=== PATIENT | male | born 1955 | race Caucasian/White ===

== ENCOUNTER 2016-03-31 19:24 | Emergency (ER) | payer OTHER ==
[~2016-03-31] VITALS: Ht 177.8 cm; Wt 120.0 kg
[~2016-03-31 19:24] MED LIST: ASPI1TAB69 PO; CALC500C6 CHEW; DIOV80TA4 PO; DIVA250ER PO; GABA100C4 PO; LEVO88TA2 PO; LIPI20TA PO; METF500 PO; PROT40TA PO; QUET1TAB8 PO; ZOLO50TA PO
[2016-03-31 19:25] VITALS: BP 122/81; PULSE 102; RESP 15; TEMP 98.3; O2SAT 96
--- NOTE | 2016-03-31 19:43 | PD ---
HPI . Suicidal ideation Chief Complaint: Suicide Ideation/Attempt Time Seen by Provider: 19:33 Travel History International Travel<30 days: Yes Contact w/Intl Traveler<30days: Yes Name of Country Traveled to: [facility] Traveled to known affect area: No History of Present Illness HPI Patient presents with suicidal ideation. He has no plan. He states that he has felt this way for the last 5 days. He states that he isn't drunk. He has been here several times in the past because of suicidal ideation and alcohol abuse. He states that he lives alone. He states that he presented to us by uber. [facility] Past Medical History Blood Disorders: No Anxiety: Yes Depression: Yes Heart Rhythm Problems: No Cancer: No Cardiovascular Problems: Yes High Cholesterol: No Chest Pain: No Congestive Heart Failure: No COPD: Yes Cerebrovascular Accident: Yes (2008) Diabetes: Yes (METFORMIN) Diminished Hearing: No Endocrine: No Gastrointestinal Disorders: Yes GERD: Yes Genitourinary: No Headaches: Yes Hepatitis: No Hiatal Hernia: No Hypertension: Yes Immune Disorder: No Implanted Vascular Access Dvce: Yes Insomnia: Yes Musculoskeletal: No Neurologic: Yes Psychiatric: Yes (pt has chronic alcohol abuse, depression, and anxiety) Reproductive: No Respiratory: Yes Migraines: No Myocardial Infarction: No Seizures: Yes Sleep Apnea: Yes (CPAP) Thyroid Disease: Yes Ulcer: No Past Surgical History Abdominal Surgery: Yes (INGUINAL HERNIA REPAIR) AICD: No Appendectomy: No Arteriovenous Shunt: No Cholecystectomy: No Insulin Pump: No Joint Replacement: No Oral Surgery: Yes (toncilectomy) Pacemaker: No Tonsillectomy: Yes Other Surgery: Yes (SINUS) Social History Alcohol Use: Yes (CURRENTLY INTOXICATED/drinking daily recently) Tobacco Use: No Substance Use: Yes (chronic alcohol abuse) Allergies-Medications (Allergen,Severity, Reaction): Coded Allergies: Erythromycin (Verified Allergy, Severe, Hives, 03/31/16) Penicillin (Verified Allergy, Severe, Hives, 03/31/16) Reported Meds & Prescriptions Reported Meds & Active Scripts Active Reported Aspirin 81 Mg Tabdr 81 Mg PO DAILY Zoloft (Sertraline HCl) 50 Mg Tab 50 Mg PO DAILY Protonix (Pantoprazole Sodium) 40 Mg Tab 40 Mg PO DAILY Lipitor (Atorvastatin Calcium) 20 Mg Tab 20 Mg PO HS Levothyroxine (Levothyroxine Sodium) 88 Mcg Tab 88 Mcg PO DAILY Glucophage (Metformin HCl) 500 Mg Tab 500 Mg PO BIDPC With meals Quetiapine (Quetiapine Fumarate) 100 Mg Tab 100 Mg PO HS Diovan (Valsartan) 80 Mg Tab 80 Mg PO BID Review of Systems Except as stated in HPI: all other systems reviewed are Neg Psychiatric: Positive: Suicidal Ideations (with no plan), Mood Disorder, Substance Abuse Physical Exam Narrative GENERAL: Very flat affect. SKIN: Warm and dry. HEAD: Atraumatic. Normocephalic. EYES: Pupils equal and round. Sclerae are anicteric. ENT: No nasal bleeding or discharge. Mucous membranes pink and moist. NECK: Trachea midline. Neck is supple. CARDIOVASCULAR: Regular rate and rhythm. RESPIRATORY: No accessory muscle use. GASTROINTESTINAL: Abdomen soft, non-tender, nondistended. MUSCULOSKELETAL: No obvious deformities. No edema. NEUROLOGICAL: Awake and alert. No obvious cranial nerve deficits. Motor grossly within normal limits. Normal speech. PSYCHIATRIC: Appropriate mood and affect; insight and judgment normal. Data Data Last Documented VS Vital Signs Date Time Temp Pulse Resp B/P Pulse Ox O2 Delivery O2 Flow Rate FiO2 03/31/16 19:25 98.3 102 15 122/81 96 Room Air Orders Complete Blood Count With Diff (03/31/16 19:34) Basic Metabolic Panel (Bmp) (03/31/16 19:34) Drug Screen, Random Urine (03/31/16 19:34) Alcohol (Ethanol) (03/31/16 19:34) Psych Screen (03/31/16 19:34) Ondansetron Odt (Zofran Odt) (03/31/16 20:30) Labs Laboratory Tests Test 03/31/16 03/31/16 20:20 20:45 White Blood Count 6.0 TH/MM3 Red Blood Count 3.75 MIL/MM3 Hemoglobin 11.8 GM/DL Hematocrit 34.0 % Mean Corpuscular Volume 90.5 FL Mean Corpuscular Hemoglobin 31.4 PG Mean Corpuscular Hemoglobin 34.8 % Concent Red Cell Distribution Width 17.4 % Platelet Count 342 TH/MM3 Mean Platelet Volume 7.5 FL Neutrophils (%) (Auto) 58.4 % Lymphocytes (%) (Auto) 30.0 % Monocytes (%) (Auto) 7.4 % Eosinophils (%) (Auto) 3.2 % Basophils (%) (Auto) 1.0 % Neutrophils # (Auto) 3.5 TH/MM3 Lymphocytes # (Auto) 1.8 TH/MM3 Monocytes # (Auto) 0.4 TH/MM3 Eosinophils # (Auto) 0.2 TH/MM3 Basophils # (Auto) 0.1 TH/MM3 CBC Comment DIFF FINAL Differential Comment Sodium Level 141 MEQ/L Potassium Level 3.5 MEQ/L Chloride Level 99 MEQ/L Carbon Dioxide Level 32.7 MEQ/L Anion Gap 9 MEQ/L Blood Urea Nitrogen 6 MG/DL Creatinine 1.19 MG/DL Estimat Glomerular Filtration 63 ML/MIN Rate Random Glucose 103 MG/DL Calcium Level 9.2 MG/DL Ethyl Alcohol Level 259 MG/DL Urine Opiates Screen NEG Urine Barbiturates Screen NEG Urine Amphetamines Screen NEG Urine Benzodiazepines Screen NEG Urine Cocaine Screen NEG Urine Cannabinoids Screen NEG MDM Medical Decision Making Medical Screen Exam Complete: Yes Emergency Medical Condition: Yes Differential Diagnosis Differential diagnosis includes but is not limited to depression with suicidal gesture, suicide attempt, suicidal ideation, attention seeking behavior. Narrative Course Patient presents via uber with his bags packed in the chief complaint of suicidal ideation. He has no plan. I have initiated a medical clearance exam. H&H is 11.8/34.0. WBC is 6.0. Chemistries are unremarkable. Drug screen is neg. EtOH is 259. Diagnosis Primary Impression: Suicidal ideations Additional Impression: Acute alcohol intoxication Qualified Code: F10.120 - Acute alcohol intoxication, uncomplicated Condition: Stable Sierra Bush MD Mar 31, 2016 19:43
[2016-03-31] MEDS ORDERED: ONDANSETRON ODT 4 MG TAB PO ONE (20:30)
[2016-03-31 20:48] LABS: AUTOMATED NEUTROPHIL # 3.5 TH/MM3 (1.8-7.7); BASOPHIL # 0.1 TH/MM3 (0-0.2); EOSINOPHIL # 0.2 TH/MM3 (0-0.4); EOSINOPHIL % 3.2 % (0.0-4.0); HEMO FLAGS DIFF FINAL; LYMPHOCYTE # 1.8 TH/MM3 (1.0-4.8); MEAN CELL VOLUME 90.5 FL (80.0-100.0); MEAN CORPUSCULAR HEMOGLOBIN 31.4 PG (27.0-34.0); MEAN CORPUSCULAR HGB CONC 34.8 % (32.0-36.0); MONO % 7.4 % (0.0-8.0); NEUT % 58.4 % (16.0-70.0); PLATELET COUNT 342 TH/MM3 (150-450); RED BLOOD COUNT 3.75 MIL/MM3 (4.50-5.90); RED CELL DISTRIBUTION WIDTH 17.4 % (11.6-17.2)
[2016-03-31 21:15] LABS: BICARBONATE 32.7 MEQ/L (21.0-32.0); POTASSIUM 3.5 MEQ/L (3.5-5.1)
[2016-03-31 21:18] LABS: AMPHETAMINE, URINE NEG (NEG); BARBITURATES, URINE NEG (NEG); COCAINE, URINE NEG (NEG)
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
== END 2016-03-31 23:50 | disposition home or self-care (01) ==
LOC: NEPA 19:24 → NEPJ 23:50
DX: R45.851 Suicidal ideations (principal); F10.120 Alcohol abuse with intoxication, uncomplicated; E11.9 Type 2 diabetes mellitus without complications; I10 Essential (primary) hypertension; E07.9 Disorder of thyroid, unspecified; G47.30 Sleep apnea, unspecified; Z79.84 Long term (current) use of oral hypoglycemic drugs; Z86.59 Personal history of other mental and behavioral disorders; Z86.79 Personal history of other diseases of the circulatory system; Z87.09 Personal history of other diseases of the respiratory system; Z86.73 Personal history of transient ischemic attack (TIA), and cerebral infarction without residual deficits; Z87.19 Personal history of other diseases of the digestive system; Z86.69 Personal history of other diseases of the nervous system and sense organs
CPT/HCPCS: 80048; 80307; 80320; 85025; 99284

== ENCOUNTER 2016-05-31 12:28 | Observation (INO) | payer OTHER ==
[~2016-05-31] VITALS: Ht 177.8 cm; Wt 115.0 kg
[2016-05-31] VITALS (11 sets, daily range): BP systolic 141–194; BP diastolic 96–126; PULSE 110–138; RESP 15–18; TEMP 98; O2SAT 93–99
[~2016-05-31 12:28] MED LIST changes: -CALC500C6 CHEW; -DIVA250ER PO; -GABA100C4 PO
[2016-05-31] MEDS ORDERED: SODIUM CHLOR 0.9% 1000 ML INJ 1,000 ML IV ONE ×3 (12:45→15:45)
[2016-05-31] MEDS ORDERED: ONDANSETRON HCL 4 MG/2 ML VIAL IV PUSH ONE (12:45)
[2016-05-31 13:09] LABS: BASOPHIL % 0.4 % (0.0-2.0); HEMATOCRIT 44.7 % (39.0-51.0); HEMO FLAGS DIFF FINAL; LYMPH % 15.3 % (9.0-44.0); LYMPHOCYTE # 1.6 TH/MM3 (1.0-4.8); MEAN CELL VOLUME 92.1 FL (80.0-100.0); MEAN CORPUSCULAR HEMOGLOBIN 31.3 PG (27.0-34.0); MEAN CORPUSCULAR HGB CONC 33.9 % (32.0-36.0); MONO % 6.6 % (0.0-8.0); NEUT % 77.7 % (16.0-70.0); PLATELET COUNT 259 TH/MM3 (150-450); RED BLOOD COUNT 4.86 MIL/MM3 (4.50-5.90); RED CELL DISTRIBUTION WIDTH 14.6 % (11.6-17.2); WHITE BLOOD COUNT 10.4 TH/MM3 (4.0-11.0)
[2016-05-31 13:52] LABS: BICARBONATE 32.1 MEQ/L (21.0-32.0); CALCIUM-PROTEIN CORRECTED 10.8 MG/DL (8.5-10.1); POTASSIUM 3.6 MEQ/L (3.5-5.1); TOTAL BILIRUBIN ADULT 0.9 MG/DL (0.2-1.0)
[2016-05-31] MEDS ORDERED: SERT25TA83 PO (14:16)
[2016-05-31] MEDS ORDERED: LORazepam 2 MG/ML VIAL IV PUSH ONE (14:45)
[2016-05-31] MEDS ORDERED: PANTOPRAZOLE SODIUM 40 MG VIAL IV PUSH ONE (15:00)
--- NOTE | 2016-05-31 15:00 | PD ---
HPI Chief Complaint: Medical Clearance Time Seen by Provider: 12:35 Travel History International Travel<30 days: No Contact w/Intl Traveler<30days: No Traveled to known affect area: No History of Present Illness HPI 60-year-old male called 911 for nausea and vomiting. He has been very depressed and drinking a lot of alcohol over the past 1 week. Patient said he finished one gallon of vodka. Normally does not drink. For 2 days he has been vomiting and unable to hold anything down. When he came in he was tremulous and diaphoretic. Heart rate was in 130s. The vomitus mostly looks clear. Patient is awake and answering questions appropriately. He says he has been very depressed and that's why his started to drink. No suicidal ideations per se. Patient was not a Barron act. [facility] Past Medical History Narrative Medical List of his past medical, surgical, social and family history was reviewed from the nursing note. Blood Disorders: No Anxiety: Yes Depression: Yes Heart Rhythm Problems: No Cancer: No Cardiovascular Problems: Yes (HTN) High Cholesterol: No Chest Pain: No Congestive Heart Failure: No COPD: Yes Cerebrovascular Accident: Yes (2008) Diabetes: Yes Patient Takes Glucophage: Yes Diminished Hearing: No Endocrine: No Gastrointestinal Disorders: Yes GERD: Yes Genitourinary: No Headaches: Yes Hepatitis: No Hiatal Hernia: No Hypertension: Yes Immune Disorder: No Implanted Vascular Access Dvce: Yes Insomnia: Yes Musculoskeletal: No Neurologic: Yes Psychiatric: Yes (pt has chronic alcohol abuse, depression, and anxiety) Reproductive: No Respiratory: Yes Migraines: No Myocardial Infarction: No Seizures: Yes Sleep Apnea: Yes (CPAP) Thyroid Disease: Yes Ulcer: No Past Surgical History Abdominal Surgery: Yes (INGUINAL HERNIA REPAIR) AICD: No Appendectomy: No Arteriovenous Shunt: No Cholecystectomy: No Insulin Pump: No Joint Replacement: No Oral Surgery: Yes (toncilectomy) Pacemaker: No Tonsillectomy: Yes Other Surgery: Yes (SINUS) Social History Alcohol Use: Yes (drank today) Tobacco Use: No Substance Use: Yes (chronic alcohol abuse) Allergies-Medications (Allergen,Severity, Reaction): Coded Allergies: Erythromycin (Verified Allergy, Severe, Hives, 03/31/16) Penicillin (Verified Allergy, Severe, Hives, 03/31/16) Comments List of his allergies reviewed from the nursing note. Reported Meds & Prescriptions Reported Meds & Active Scripts Active Reported Sertraline (Sertraline HCl) 25 Mg Tab 25 Mg PO DAILY Aspirin 81 Mg Tabdr 81 Mg PO DAILY Protonix (Pantoprazole Sodium) 40 Mg Tab 40 Mg PO DAILY Lipitor (Atorvastatin Calcium) 20 Mg Tab 20 Mg PO HS Levothyroxine (Levothyroxine Sodium) 88 Mcg Tab 88 Mcg PO DAILY Glucophage (Metformin HCl) 500 Mg Tab 500 Mg PO BIDPC With meals Quetiapine (Quetiapine Fumarate) 100 Mg Tab 100 Mg PO HS Diovan (Valsartan) 80 Mg Tab 80 Mg PO BID Narrative Medication List of his home medications reviewed from the nursing note. Review of Systems Except as stated in HPI: all other systems reviewed are Neg Physical Exam Narrative GENERAL: Awake, alert, moderate distress SKIN: Warm and diaphoretic HEAD: Atraumatic. Normocephalic. EYES: Pupils equal and round. No scleral icterus. No injection or drainage. ENT: No nasal bleeding or discharge. Mucous membranes pink and moist. NECK: Trachea midline. No JVD. CARDIOVASCULAR: Regular rate and rhythm. Tachycardia. No murmur appreciated. RESPIRATORY: No accessory muscle use. Clear to auscultation. Breath sounds equal bilaterally. GASTROINTESTINAL: Abdomen soft, non-tender, nondistended. Hepatic and splenic margins not palpable. MUSCULOSKELETAL: No obvious deformities. No clubbing. No cyanosis. No edema. NEUROLOGICAL: Awake and alert. No obvious cranial nerve deficits. Motor grossly within normal limits. Normal speech. PSYCHIATRIC: Appropriate mood and affect; insight and judgment normal. Data Data Last Documented VS Vital Signs Date Time Temp Pulse Resp B/P Pulse Ox O2 Delivery O2 Flow Rate FiO2 05/31/16 12:49 194/99 05/31/16 12:40 133 17 05/31/16 12:37 98.0 93 Orders Complete Blood Count With Diff (05/31/16 12:37) Comprehensive Metabolic Panel (05/31/16 12:37) Psych Screen (05/31/16 12:37) Drug Screen, Random Urine (05/31/16 12:37) Alcohol (Ethanol) (05/31/16 12:37) Ondansetron Inj (Zofran Inj) (05/31/16 12:45) Sodium Chlor 0.9% 1000 Ml Inj (Ns 1000 M (05/31/16 12:45) Special Education Instructor / Telemetry [email or web address] (05/31/16 12:37) Lorazepam Inj (Ativan Inj) (05/31/16 14:45) Sodium Chlor 0.9% 1000 Ml Inj (Ns 1000 M (05/31/16 14:45) Electrocardiogram (05/31/16 ) Pantoprazole Inj (Protonix Inj) (05/31/16 15:00) Admit Order (Ed Use Only) (05/31/16 15:05) Labs Laboratory Tests Test 05/31/16 12:55 White Blood Count 10.4 TH/MM3 Red Blood Count 4.86 MIL/MM3 Hemoglobin 15.2 GM/DL Hematocrit 44.7 % Mean Corpuscular Volume 92.1 FL Mean Corpuscular Hemoglobin 31.3 PG Mean Corpuscular Hemoglobin 33.9 % Concent Red Cell Distribution Width 14.6 % Platelet Count 259 TH/MM3 Mean Platelet Volume 7.7 FL Neutrophils (%) (Auto) 77.7 % Lymphocytes (%) (Auto) 15.3 % Monocytes (%) (Auto) 6.6 % Eosinophils (%) (Auto) 0.0 % Basophils (%) (Auto) 0.4 % Neutrophils # (Auto) 8.0 TH/MM3 Lymphocytes # (Auto) 1.6 TH/MM3 Monocytes # (Auto) 0.7 TH/MM3 Eosinophils # (Auto) 0.0 TH/MM3 Basophils # (Auto) 0.0 TH/MM3 CBC Comment DIFF FINAL Differential Comment Sodium Level 139 MEQ/L Potassium Level 3.6 MEQ/L Chloride Level 91 MEQ/L Carbon Dioxide Level 32.1 MEQ/L Anion Gap 16 MEQ/L Blood Urea Nitrogen 17 MG/DL Creatinine 1.24 MG/DL Estimat Glomerular Filtration 60 ML/MIN Rate Random Glucose 188 MG/DL Calcium Level 12.0 MG/DL Protein Corrected Calcium 10.8 MG/DL Total Bilirubin 0.9 MG/DL Aspartate Amino Transf 188 U/L (AST/SGOT) Alanine Aminotransferase 74 U/L (ALT/SGPT) Alkaline Phosphatase 122 U/L Total Protein 9.0 GM/DL Albumin 4.5 GM/DL Ethyl Alcohol Level 197 MG/DL [facility] Medical Decision Making Medical Screen Exam Complete: Yes Emergency Medical Condition: Yes Medical Record Reviewed: Yes Interpretation(s) Twelve-lead EKG was reviewed by me. Normal sinus rhythm, normal axis, tachycardia, PVC, poor R-wave progression. Heart rate of 138 bpm. Differential Diagnosis Alcohol withdrawal, alcoholic ketoacidosis, alcohol intoxication, dehydration Narrative Course 2:57 PM blood test results of back and patient has high calcium. AST is slightly elevated. Blood alcohol level was close to 200. I have given him a liter of IV fluid bolus and IV Zofran. Patient continues to be nauseous. I've given him 1 mg of IV Ativan and I have decided to admit him. I ordered a second liter of fluid bolus. Awaiting for the hospitalist to call back. I will give him IV Protonix as well. Procedures EKG Prior to Arrival: No Diagnosis Primary Impression: Alcoholic gastritis Qualified Code: K29.20 - Acute alcoholic gastritis without hemorrhage Additional Impressions: Alcohol withdrawal Qualified Code: F10.239 - Alcohol withdrawal, with unspecified complication Intractable vomiting Qualified Code: R11.10 - Intractable vomiting, presence of nausea not specified, unspecified vomiting type Admitting Information Admitting Physician Requests: it Joseph Mallory MD May 31, 2016 15:00
[2016-05-31] MEDS ORDERED: MAGNESIUM HYDROXIDE SUSP 30 ML CUP PO PRN (15:30)
[2016-05-31] MEDS ORDERED: SODIUM CHLORIDE 0.9% FLUSH 10 ML FLUSH IV FLUSH PRN (15:30)
[2016-05-31] MEDS ORDERED: ACETAMINOPHEN 325 MG TAB PO PRN (15:30)
[2016-05-31] MEDS ORDERED: NALOXONE HCL 0.4 MG/ML AMP IV PRN (15:30)
[2016-05-31] MEDS ORDERED: ONDANSETRON HCL 4 MG/2 ML VIAL IVP PRN (15:30)
[2016-05-31] MEDS ORDERED: PILL SPLITTER OTHER PRN (15:45)
[2016-05-31] MEDS: INSULIN ASPART SUPPLEMENTAL SCALE SQ SCH ×2 (16:00→21:30)
[2016-05-31] MEDS: LORazepam 2 MG/ML VIAL IV PUSH PRN ×2 (16:20→20:23)
[2016-05-31 16:28] LABS: AMPHETAMINE, URINE NEG (NEG); BARBITURATES, URINE NEG (NEG); COCAINE, URINE NEG (NEG)
--- NOTE | 2016-05-31 16:50 | HHI.HP ---
HPI Service [facility] Hospitalists Primary Care Physician Dr. Quinten Becker Admission Diagnosis alcohol withdrawal, alcoholic gastritis, intractable vomiting Chief Complaint: Intractable vomiting Travel History International Travel<30 Days: No Contact w/Intl Traveler <30 Da: No Traveled to Known Affected Are: No History of Present Illness Mr. Canseco is a 60 y/o WM with HTN, diabetes mellitus, SANG on CPAP and alcohol abuse. He has been very depressed and has been binge drinking for the past 1 week and stopped two days ago. Pt presented to the ED with intractable nausea/vomiting and unable to hold any food or fluids down for the last 2 days. Pt appeared to be in withdrawals in the ED and has been tremulous and diaphoretic, heart rate was in 130s and hypertensive. The patient is alert and answering questions appropriately. He does have noted electrolyte abnormalities at admission and some elevation in his LFTs consistent with alcoholic hepatitis. Pt says he has been very depressed and that's why his started to drink. No suicidal ideations. His blood alcohol level was close to 200. He was given a bolus if IV fluids and IV Zofran in the ED but continued to be nauseated. Denies any abd pain, chest pain, hematemesis, coffee-ground emesis , melena, BRBPR, SOB or palpitations. Review of Systems Constitutional: DENIES: Fever, Chills Eyes: DENIES: Vision loss Ears, nose, mouth, throat: DENIES: Hearing loss Respiratory: DENIES: Cough, Shortness of breath Cardiovascular: DENIES: Chest pain, Lower Extremity Edema Gastrointestinal: COMPLAINS OF: GERD, Nausea, Vomiting, DENIES: Black stools, Bloody stools Genitourinary: DENIES: Dysuria Musculoskeletal: DENIES: Back pain Integumentary: DENIES: Rash Neurologic: DENIES: Headache Psychiatric: DENIES: Confusion, Suicidal Ideation Past Family Social History Past Medical History ADHD Alcohol dependence Antiphospholipid antibody syndrome Diabetes mellitus Hx of CVA in 2009 Anxiety/Depression GERD HTN Hyperlipidemia SANG on CPAP Past Surgical History Hernia repair Tonsillectomy/Adenoidectomy Reported Medications Sertraline (Sertraline HCl) 25 Mg Tab 25 Mg PO DAILY Aspirin 81 Mg Tabdr 81 Mg PO DAILY Protonix (Pantoprazole Sodium) 40 Mg Tab 40 Mg PO DAILY Lipitor (Atorvastatin Calcium) 20 Mg Tab 20 Mg PO HS Levothyroxine (Levothyroxine Sodium) 88 Mcg Tab 88 Mcg PO DAILY Glucophage (Metformin HCl) 500 Mg Tab 500 Mg PO BIDPC With meals Quetiapine (Quetiapine Fumarate) 100 Mg Tab 100 Mg PO HS Diovan (Valsartan) 80 Mg Tab 80 Mg PO BID Allergies: Coded Allergies: Erythromycin (Verified Allergy, Severe, Hives, 03/31/16) Penicillin (Verified Allergy, Severe, Hives, 03/31/16) Family History Mother - Hx of RCC Father - Hx of Parkinson's Brother and sister with hx of psychiatric disorders Social History (+)Alcohol abuse, binge drinker Hx of tobacco use, quit over 10 years ago, smoked 1ppd x 25 years Physical Exam Vital Signs Vital Signs Date Time Temp Pulse Resp B/P Pulse Ox O2 Delivery O2 Flow Rate FiO2 05/31/16 16:19 95 Nasal Cannula 3.00 05/31/16 12:49 194/99 05/31/16 12:40 133 17 05/31/16 12:37 98.0 131 15 185/112 93 Physical Exam GENERAL: This is a well-nourished, well-developed patient, in no apparent distress. HEENT: Atraumatic. Normocephalic. No temporal or scalp tenderness. No scleral icterus. Airway patent. NECK: Trachea midline, supple, nontender. CARDIO: Regular. RESP: CTA bilaterally. No wheezes, rales, or rhonchi. ABD: +BS, soft, non-tender, nondistended. EXT: Extremities without clubbing, cyanosis, or edema. NEURO: Awake and alert. Motor and sensory grossly within normal limits. Normal speech. Laboratory Laboratory Tests Test 05/31/16 12:55 White Blood Count 10.4 Red Blood Count 4.86 Hemoglobin 15.2 Hematocrit 44.7 Mean Corpuscular Volume 92.1 Mean Corpuscular Hemoglobin 31.3 Mean Corpuscular Hemoglobin 33.9 Concent Red Cell Distribution Width 14.6 Platelet Count 259 Mean Platelet Volume 7.7 Neutrophils (%) (Auto) 77.7 Lymphocytes (%) (Auto) 15.3 Monocytes (%) (Auto) 6.6 Eosinophils (%) (Auto) 0.0 Basophils (%) (Auto) 0.4 Neutrophils # (Auto) 8.0 Lymphocytes # (Auto) 1.6 Monocytes # (Auto) 0.7 Eosinophils # (Auto) 0.0 Basophils # (Auto) 0.0 CBC Comment DIFF FINAL Differential Comment Sodium Level 139 Potassium Level 3.6 Chloride Level 91 Carbon Dioxide Level 32.1 Anion Gap 16 Blood Urea Nitrogen 17 Creatinine 1.24 Estimat Glomerular Filtration 60 Rate Random Glucose 188 Calcium Level 12.0 Protein Corrected Calcium 10.8 Total Bilirubin 0.9 Aspartate Amino Transf 188 (AST/SGOT) Alanine Aminotransferase 74 (ALT/SGPT) Alkaline Phosphatase 122 Total Protein 9.0 Albumin 4.5 Ethyl Alcohol Level 197 Result Diagram: 05/31/16 1255 05/31/16 1255 Septic Shock Reassessment Heart: Other Lungs: Clear Skin: Warm Assessment and Plan Problem List: (1) Intractable vomiting Status: Acute Plan: - Pt admitted with intractable nausea/vomiting, likely related to alcohol abuse and withdrawal. - He is notably tachycardic and hypertensive in the ED likely because he is dehydrated and hasn't been taking his medications. - The pt is a binge drinker and has been drinking heavily for the last week as he has been more depressed. - Pt has been given IVF bolus in the ED and we will continue hydrating him with IVF - Zofran PRN - Protonix 40mg BID - Thiamine/Folic Acid/MVI - DT precautions - Ativan PRN - Librium 25mg TID - Monitor electrolytes closely and replace as necessary - Alcohol cessation - Supportive care - DVT prophylaxis with SCDs (2) Acute alcohol intoxication Status: Acute Plan: - See above. (3) Alcohol abuse Status: Chronic Plan: - See above. - Consult Psychiatry (4) HTN (hypertension) Status: Chronic Plan: - Resume home meds - Clonidine PRN - Monitor (5) Depression Status: Chronic (6) Diabetes Status: Chronic Plan: - NovoLog SSI - Accu checks Assessment and Plan Patient examined. Assessment and plan formulated with Megan Carr PA-C. Lizabeth agree with the above. Physician Certification 2 Midnight Certification Type: Admission for Inpatient Services Order for Inpatient Services The services are ordered in accordance with Medicare regulations or non- Medicare payer requirements, as applicable. In the case of services not specified as inpatient-only, they are appropriately provided as inpatient services in accordance with the 2-midnight benchmark. Estimated LOS (days): 3 3 days is the estimated time the patient will need to remain in the hospital, assuming treatment plan goals are met and no additional complications. Post-Hospital Plan: Not yet determined Problem Qualifiers (1) Intractable vomiting: Qualified Code: R11.10 - Intractable vomiting, presence of nausea not specified , unspecified vomiting type (2) Acute alcohol intoxication: Qualified Code: F10.120 - Acute alcohol intoxication, uncomplicated Megan Carr May 31, 2016 16:50 Stephane Crandall DO Jun 01, 2016 22:48
[2016-05-31] MEDS ORDERED: cloNIDine HCL 0.1 MG TAB PO PRN (17:00)
[2016-05-31] MEDS ORDERED: ENALAPRILAT 1.25 MG/ML VIAL IV PUSH PRN (17:30)
[2016-05-31] MEDS: chlordiazePOXIDE 25 MG CAP PO SCH (18:00)
[2016-05-31] MEDS ORDERED: METOPROLOL TARTRATE 5 MG/5 ML VIAL IV PUSH PRN (19:00)
[2016-05-31] MEDS: metFORMIN HCL 500 MG TAB PO SCH (19:18)
[2016-05-31] MEDS: 1/2 NS + KCL 20 MEQ INJ 1,000 ML IV SCH (19:19)
[2016-05-31] MEDS: SODIUM CHLORIDE 0.9% FLUSH 10 ML FLUSH IV FLUSH SCH (21:00)
[2016-05-31] MEDS: DOCUSATE SODIUM 100 MG CAP PO SCH (21:23)
[2016-05-31] MEDS: QUEtiapine FUMARATE 100 MG TAB PO SCH (21:24)
[2016-05-31] MEDS: ATORVASTATIN 20 MG TAB PO SCH (21:24)
[2016-05-31] MEDS: VALSARTAN 80 MG TAB PO SCH (21:24)
[2016-06-01] VITALS (15 sets, daily range): BP systolic 135–160; BP diastolic 76–98; PULSE 86–124; RESP 18–20; TEMP 98.1; O2SAT 93–98
[2016-06-01] MEDS: 1/2 NS + KCL 20 MEQ INJ 1,000 ML IV SCH (04:45)
[2016-06-01] MEDS: LORazepam 2 MG/ML VIAL IV PUSH PRN ×3 (06:02→22:46)
[2016-06-01] MEDS: INSULIN ASPART SUPPLEMENTAL SCALE SQ SCH ×4 (07:00→21:00)
[2016-06-01 07:10] LABS: AUTOMATED NEUTROPHIL # 7.1 TH/MM3 (1.8-7.7); BASOPHIL # 0.1 TH/MM3 (0-0.2); BASOPHIL % 0.6 % (0.0-2.0); EOSINOPHIL # 0.1 TH/MM3 (0-0.4); EOSINOPHIL % 0.7 % (0.0-4.0); HEMATOCRIT 41.5 % (39.0-51.0); HEMO FLAGS DIFF FINAL; LYMPHOCYTE # 1.3 TH/MM3 (1.0-4.8); MEAN CELL VOLUME 92.9 FL (80.0-100.0); MEAN CORPUSCULAR HEMOGLOBIN 30.6 PG (27.0-34.0); MONO % 7.8 % (0.0-8.0); NEUT % 76.9 % (16.0-70.0); PLATELET COUNT 157 TH/MM3 (150-450); RED BLOOD COUNT 4.47 MIL/MM3 (4.50-5.90); RED CELL DISTRIBUTION WIDTH 14.6 % (11.6-17.2); WHITE BLOOD COUNT 9.3 TH/MM3 (4.0-11.0)
[2016-06-01 07:26] LABS: BICARBONATE 30.5 MEQ/L (21.0-32.0); MAGNESIUM 1.5 MG/DL (1.5-2.5)
[2016-06-01 07:32] LABS: POTASSIUM 3.9 MEQ/L (3.5-5.1)
[2016-06-01] MEDS: SODIUM CHLORIDE 0.9% FLUSH 10 ML FLUSH IV FLUSH SCH ×2 (08:52→22:45)
[2016-06-01] MEDS: VALSARTAN 80 MG TAB PO SCH ×2 (09:33→22:05)
[2016-06-01] MEDS: SERTRALINE HCL 50 MG TAB PO SCH (09:33)
[2016-06-01] MEDS: PANTOPRAZOLE SOD 40 MG DELAYED RELEASE TAB PO SCH (09:34)
[2016-06-01] MEDS: metFORMIN HCL 500 MG TAB PO SCH ×2 (09:34→18:07)
[2016-06-01] MEDS: MULTIVITAMIN TAB PO SCH (09:34)
[2016-06-01] MEDS: ASPIRIN EC 81 MG TABEC PO SCH (09:34)
[2016-06-01] MEDS: THIAMINE HCL 100 MG TAB PO SCH (09:35)
[2016-06-01] MEDS: FOLIC ACID 1 MG TAB PO SCH (09:35)
[2016-06-01] MEDS: chlordiazePOXIDE 25 MG CAP PO SCH ×3 (09:35→18:07)
[2016-06-01] MEDS: DOCUSATE SODIUM 100 MG CAP PO SCH ×2 (09:35→22:04)
--- NOTE | 2016-06-01 10:58 | HHI.PR ---
Subjective Remarks No new complaints. Feels less tremulous from admission. Objective Vitals Vital Signs Date Time Temp Pulse Resp B/P Pulse Ox O2 Delivery O2 Flow Rate FiO2 06/01/16 07:46 96 2.00 06/01/16 07:30 106 20 160/80 93 Room Air 06/01/16 07:00 20 06/01/16 06:01 113 18 135/81 98 Room Air 06/01/16 02:00 124 18 146/86 94 CPAP 05/31/16 22:00 114 18 141/101 95 Nasal Cannula 2 05/31/16 21:00 116 18 186/97 93 Nasal Cannula 2 05/31/16 20:15 114 18 179/96 95 Nasal Cannula 2 05/31/16 19:30 110 16 164/96 96 Nasal Cannula 2 05/31/16 19:21 112 16 191/110 94 Nasal Cannula 2 05/31/16 18:46 138 18 182/103 99 Room Air 05/31/16 18:31 128 18 177/113 99 05/31/16 17:48 133 18 184/126 99 Room Air 05/31/16 16:19 95 Nasal Cannula 3.00 05/31/16 12:49 194/99 05/31/16 12:40 133 17 05/31/16 12:37 98.0 131 15 185/112 93 Result Diagram: 06/01/16 0632 06/01/16 0632 Other Results Laboratory Tests Test 05/31/16 05/31/16 06/01/16 12:55 15:45 06:32 White Blood Count 10.4 TH/MM3 9.3 TH/MM3 Red Blood Count 4.86 MIL/MM3 4.47 MIL/MM3 Hemoglobin 15.2 GM/DL 13.7 GM/DL Hematocrit 44.7 % 41.5 % Mean Corpuscular Volume 92.1 FL 92.9 FL Mean Corpuscular Hemoglobin 31.3 PG 30.6 PG Mean Corpuscular Hemoglobin 33.9 % 33.0 % Concent Red Cell Distribution Width 14.6 % 14.6 % Platelet Count 259 TH/MM3 157 TH/MM3 Mean Platelet Volume 7.7 FL 8.0 FL Neutrophils (%) (Auto) 77.7 % 76.9 % Lymphocytes (%) (Auto) 15.3 % 14.0 % Monocytes (%) (Auto) 6.6 % 7.8 % Eosinophils (%) (Auto) 0.0 % 0.7 % Basophils (%) (Auto) 0.4 % 0.6 % Neutrophils # (Auto) 8.0 TH/MM3 7.1 TH/MM3 Lymphocytes # (Auto) 1.6 TH/MM3 1.3 TH/MM3 Monocytes # (Auto) 0.7 TH/MM3 0.7 TH/MM3 Eosinophils # (Auto) 0.0 TH/MM3 0.1 TH/MM3 Basophils # (Auto) 0.0 TH/MM3 0.1 TH/MM3 CBC Comment DIFF FINAL DIFF FINAL Differential Comment Sodium Level 139 MEQ/L 136 MEQ/L Potassium Level 3.6 MEQ/L 3.9 MEQ/L Chloride Level 91 MEQ/L 97 MEQ/L Carbon Dioxide Level 32.1 MEQ/L 30.5 MEQ/L Anion Gap 16 MEQ/L 9 MEQ/L Blood Urea Nitrogen 17 MG/DL 21 MG/DL Creatinine 1.24 MG/DL 1.05 MG/DL Estimat Glomerular Filtration 60 ML/MIN 72 ML/MIN Rate Random Glucose 188 MG/DL 122 MG/DL Calcium Level 12.0 MG/DL 9.8 MG/DL Protein Corrected Calcium 10.8 MG/DL Total Bilirubin 0.9 MG/DL Aspartate Amino Transf 188 U/L (AST/SGOT) Alanine Aminotransferase 74 U/L (ALT/SGPT) Alkaline Phosphatase 122 U/L Total Protein 9.0 GM/DL Albumin 4.5 GM/DL Ethyl Alcohol Level 197 MG/DL Urine Opiates Screen NEG Urine Barbiturates Screen NEG Urine Amphetamines Screen NEG Urine Benzodiazepines Screen NEG Urine Cocaine Screen NEG Urine Cannabinoids Screen NEG Magnesium Level 1.5 MG/DL Objective Remarks General: NAD, AAOx3 Chest: CTA Cardiac: Regular, tachy Abd: +BS, soft ND/NT Ext: No edema A/P Problem List: (1) Intractable vomiting Status: Acute Plan: - Pt admitted with intractable nausea/vomiting, likely related to alcohol abuse and withdrawal. - He is notably tachycardic and hypertensive in the ED likely because he is dehydrated and hasn't been taking his medications. - The pt is a binge drinker and has been drinking heavily for the last week as he has been more depressed. - Pt has been given IVF bolus in the ED and we will continue hydrating him with IVF - Today pt is tolerating his diet - Zofran PRN - Protonix 40mg BID - Thiamine/Folic Acid/MVI - DT precautions - Ativan PRN - Librium 25mg TID - Alcohol cessation - Supportive care - Await psychiatry consultation - Anticipate discharge tomorrow if HR is under control - DVT prophylaxis with SCDs (2) Acute alcohol intoxication Status: Acute Plan: - See above. (3) Alcohol abuse Status: Chronic Plan: - See above. - Consult Psychiatry (4) Tachyarrhythmia Status: Acute Plan: - Pt notably tachycardic at admission, felt initially to be secondary to withdrawals and dehydration - Pt continues to be tachycardic today, sinus rhythm - We will start Metoprolol 25mg po BID - Telemetry (5) HTN (hypertension) Status: Chronic Plan: - Resume home meds - Clonidine PRN - Monitor (6) Depression Status: Chronic (7) Diabetes Status: Chronic Plan: - NovoLog SSI - Accu checks Assessment and Plan Patient examined. Assessment and plan formulated with Megan Carr PA-C. I agree with the above. Problem Qualifiers (1) Intractable vomiting: Qualified Code: R11.10 - Intractable vomiting, presence of nausea not specified , unspecified vomiting type (2) Acute alcohol intoxication: Qualified Code: F10.120 - Acute alcohol intoxication, uncomplicated Megan Carr Jun 01, 2016 10:58 Stephane Crandall DO Jun 01, 2016 22:49
[2016-06-01] MEDS: METOPROLOL TARTRATE 25 MG TAB PO SCH ×2 (11:44→22:05)
[2016-06-01] MEDS: LEVOTHYROXINE SODIUM 88 MCG TAB PO SCH (11:44)
--- NOTE | 2016-06-01 13:39 | EKG ---
Date Performed: 05/31/2016 Time Performed: 18:42:26 PTAGE: 60 years EKG: SINUS TACHYCARDIA INFERIOR MYOCARDIAL INFARCTION ABNORMAL ECG PREVIOUS TRACING : 05/31/2016 14.53 Compared to prior tracing no significant change DOCTOR: Zac Mesa Interpretating Date/Time 06/01/2016 13:36:20
--- NOTE | 2016-06-01 13:39 | EKG ---
Date Performed: 05/31/2016 Time Performed: 14:53:40 PTAGE: 60 years EKG: SINUS TACHYCARDIA POSSIBLE ANTERIOR MYOCARDIAL INFARCTION PROBABLE INFERIOR MYOCARDIAL INFA RCTION ABNORMAL ECG PREVIOUS TRACING : 01/06/2016 21.36 Compared to prior tracing no significant change DOCTOR: Zac Mesa Interpretating Date/Time 06/01/2016 13:36:32
--- NOTE | 2016-06-01 15:15 | MB ---
cc: KIRSTIN CALLAHAN M.D. DATE OF CONSULTATION: 06/01/2016 HISTORY OF PRESENT ILLNESS This 60-year-old white male with multiple medical issues was brought to the emergency room voluntarily because of acute alcohol intoxication/alcohol withdrawal, gastritis, intractable vomiting. He has long history of alcohol abuse and bipolar affective disorder. He is currently being followed by Dr. Alaniz. Psychiatric consultation is requested by Dr. Crandall for evaluation and assistance in the management of alcohol abuse/ bipolar. Mr. Canseco is well-known to me from his previous admissions to psychiatric unit/medical floors. He was last admitted to [facility] January 07, 2016 under my service. He has very serious alcohol abuse issue, however, has very limited insight and motivation to work on it. He generally comes in the hospital due to alcohol withdrawal and after 3 days or so he leaves, most of the time against medical advice. Despite best efforts he has not been able to seek residential treatment or outpatient treatment for his alcohol abuse issue. LABORATORY WORKUP CBC with differential is unremarkable. Serum calcium on admission 12, repeated today 9.8. Liver enzymes, AST elevated 188, ALT 74, alkaline phosphatase elevated 122. Blood alcohol level on admission 197. Urine drug screen negative. EKG shows sinus tachycardia, possible anterior myocardial infarction, probable inferior myocardial infarction. MEDICATIONS Current medications are: 1. Lopressor 25 mg q.12 hours. 2. Multivitamin. 3. Thiamine. 4. Folate. 5. Ecotrin. 6. Synthroid. 7. Protonix. 8. Zoloft 25 mg daily. 9. Seroquel 100 mg q.h.s. 10. Diovan. 11. Glucophage. 12. Vasotec. 13. Clonidine. 14. Librium. Since admission he has not exhibited any aggressive or self-destructive behavior, nor has he made any threats of harm to self or others. During evaluation by MARKIE Kinney, he denied entertaining suicidal ideations. At the time of this evaluation Mr. Canseco was able to recognize me and seemed pleased with my visit. When I asked about his understanding of the reason for this hospitalization he smiled and responded "it is the same thing. I was sober since I left the hospital December, last year. I relapsed 4 days ago when I started drinking, I could not stop drinking. I started throwing up. I brought myself here. My blood pressure was very high". When asked as to how much he has been drinking he responded "a lot" but would not give the exact amount. When pursued he responded "enough to get into the emergency room". He stated that he has been feeling "kind of down but not bad". He attributed this to recent separation from his and the possibility of divorce. When further explored he indicated that he has been doing very well in his business but recently about three months ago had lost a big account because the business was sold to someone else. 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 He denied his alcohol abuse was a contributing factor to this loss of account. He mentioned he has been having difficulty falling asleep and Dr. Alaniz his outpatient psychiatrist started him on Seroquel which has been helping. He stated that he has been following up with Dr. Alaniz once every 2-3 months. He stated that he has continued on the Zoloft that I had discharged him on, however, Dr. Alaniz took him off of the Depakote because "he said I did not need it". The accuracy of this seems somewhat doubtful. It should be mentioned that during his previous admissions diagnosis of bipolar affective disorder was established. It is also worth mentioning that while on the Depakote his platelet level was somewhat low and he was recommended to follow up with Dr. Alaniz and Dr. Saleh his primary care physician in regards to this. On direct questioning he denied any change in his appetite, memory or concentration. He denied entertaining any suicidal thoughts or any previous suicide attempts. Other exploration did not reveal any other significant psychosocial stressors. PAST MEDICAL HISTORY/FAMILY HISTORY/PERSONAL HISTORY Please refer to my previous evaluations. Suffice to say that he has very limited insight and motivation to work on his alcohol abuse issue. He has multiple medical issues which include hypertension, diabetes mellitus, obstructive sleep apnea on C-PAP, hypothyroidism, antiphospholipid antibody syndrome, history of CVA in 2010, gastroesophageal reflux disease, hyperlipidemia. CLINICAL OBSERVATION AND MENTAL STATUS EXAMINATION At the time of this evaluation Mr. Canseco presented as a casually dressed, reasonably well-groomed white male who looked his stated age. His face was flushed and he seemed somewhat tremulous. He was overall pleasant and cooperative with this interviewer and verbalized appreciation for the services provided to him during previous admissions. His responses to questions were relevant and logical. No overt anger or hostility was noticed. No bizarre behavior or mannerisms were noticed. His affect was appropriate, somewhat blunted. Subjectively, described his mood as "I've been feeling okay, maybe a little down but not bad". Thought processes did not reveal any looseness of association or flight of ideas. No nilsa delusions, auditory or visual hallucinations were noticed or reported. He denied active suicidal or homicidal ideations or intent at this time. He denied any previous suicide attempts. Cognitive functions: He was alert, oriented to place and person, not to time. He gave the date as "May 22". However, when the correct date was given he accepted it. Memory: Immediate, he could do 5 digits forward, 3 digits backward. Recent, he could recall 2/3 objects after 10 minutes. Remote, he could recall presidents up to President Tyrone. His attention and concentration was impaired. He could do serial sevens up to 86. His judgment and insight was felt to be fair. DIAGNOSTIC IMPRESSION Bipolar affective disorder, depression, mild. Chronic alcohol abuse. Acute alcohol intoxication. Alcohol withdrawal syndrome, ADHD by history. Antiphospholipid antibody syndrome, diabetes mellitus, history of CVA in 2010, hypertension, hyperlipidemia, obstructive sleep apnea. FORMULATION AND RECOMMENDATIONS Based on this evaluation and my knowledge of his case, Mr. Canseco has serious alcohol abuse problem. However, he has very limited insight and motivation to work on it. In addition he also has bipolar affective disorder. This seems to be quite stable at this time. According to him the current combination of medications i.e., Zoloft, Seroquel is working well. It is not clear as to why Depakote was discontinued. Most likely it seems to be due to him not wanting to stay on it. As mentioned noncompliance is a big issue with him. I again discussed with him at length the need for him to seek residential alcohol rehab program, i.e. [facility]. However, he seemed reluctant. Interestingly, he stated that he had visited this program about two months or so ago and had met with Dr. Valentin the addictionologist affiliated with that program and liked him. However, as usual he did not follow through with his recommendations. He agreed to have the social media project manager look into this further and he will decide whether or not he wants to be admitted there or not. He is denying any suicidal or homicidal ideations or intent at this time. He is not exhibiting any acute psychotic symptoms. As such he does not meet the Barron Act criteria at this time. I concur with the plans to keep him on the Seroquel and Zoloft and the detox regimen of Librium, thiamine and multivitamin. He is ambivalent about restarting the Depakote. Considering elevated liver functions I would like to hold off it also. He needs to certainly continue his outpatient psychiatric followup with Dr. Alaniz and participate in their outpatient alcohol/substance abuse program and also to continue individual therapy with a therapist at [facility]. Thank you Dr. Cradnall for allowing me to participate in the care of Mr. Canseco. I will follow him with you during this admission. MD MERY Cobb/ISHAN /1:51 PM /2:22 PM
[2016-06-01] MEDS: ATORVASTATIN 20 MG TAB PO SCH (22:04)
[2016-06-01] MEDS: QUEtiapine FUMARATE 100 MG TAB PO SCH (22:45)
[2016-06-02] VITALS (15 sets, daily range): BP systolic 140–156; BP diastolic 85–100; PULSE 70–90; RESP 16–18; TEMP 98–98.6; O2SAT 93–97
[2016-06-02] MEDS: 1/2 NS + KCL 20 MEQ INJ 1,000 ML IV SCH (00:18)
[2016-06-02] MEDS: LEVOTHYROXINE SODIUM 88 MCG TAB PO SCH (06:09)
[2016-06-02] MEDS: INSULIN ASPART SUPPLEMENTAL SCALE SQ SCH ×2 (06:32→10:29)
[2016-06-02] MEDS: FOLIC ACID 1 MG TAB PO SCH (08:10)
[2016-06-02] MEDS: ASPIRIN EC 81 MG TABEC PO SCH (08:10)
[2016-06-02] MEDS: PANTOPRAZOLE SOD 40 MG DELAYED RELEASE TAB PO SCH (08:10)
[2016-06-02] MEDS: VALSARTAN 80 MG TAB PO SCH (08:10)
[2016-06-02] MEDS: metFORMIN HCL 500 MG TAB PO SCH (08:10)
[2016-06-02] MEDS: DOCUSATE SODIUM 100 MG CAP PO SCH (08:10)
[2016-06-02] MEDS: SERTRALINE HCL 50 MG TAB PO SCH (08:10)
[2016-06-02] MEDS: chlordiazePOXIDE 25 MG CAP PO SCH ×2 (08:11→12:42)
[2016-06-02] MEDS: SODIUM CHLORIDE 0.9% FLUSH 10 ML FLUSH IV FLUSH SCH (08:11)
[2016-06-02] MEDS: MULTIVITAMIN TAB PO SCH (08:11)
[2016-06-02] MEDS: METOPROLOL TARTRATE 25 MG TAB PO SCH (08:11)
[2016-06-02] MEDS: THIAMINE HCL 100 MG TAB PO SCH (08:11)
[2016-06-02] MEDS: LORazepam 2 MG/ML VIAL IV PUSH PRN (10:30)
[2016-06-02] MEDS ORDERED: METO25TA3 PO (11:24)
--- NOTE | 2016-06-02 11:26 | HHI.DCPOC ---
Discharge Care Plan Diagnosis: (1) Tachyarrhythmia (2) Alcohol withdrawal (3) Alcohol abuse (4) Intractable vomiting (5) HTN (hypertension) (6) Diabetes (7) Depression Goals to Promote Your Health * To prevent worsening of your condition and complications * To maintain your health at the optimal level Directions to Meet Your Goals Take your medications as prescribed Follow your dietary instruction Follow activity as directed Keep your appointments as scheduled Take your immunizations and boosters as scheduled If your symptoms worsen call your PCP, if no PCP go to Urgent Care Center or Emergency Room Smoking is Dangerous to Your Health. Avoid second hand smoke Call the 24-hour hour crisis hotline for domestic abuse at Megan Carr Jun 02, 2016 11:26 Stephane Crandall DO Jun 04, 2016 10:42
[2016-06-02] MEDS ORDERED: LEVO88TA2 PO (13:29)
[2016-06-02] MEDS ORDERED: METF500 PO (13:29)
[2016-06-02] MEDS ORDERED: DIOV80TA4 PO (13:29)
[2016-06-02] MEDS ORDERED: QUET1TAB8 PO (13:29)
[2016-06-02] MEDS ORDERED: SERT25TA83 PO (13:29)
[2016-06-02] MEDS ORDERED: PROT40TA PO (13:29)
--- NOTE | 2016-06-02 13:39 | HHI.PR ---
Subjective Remarks Pt overall feeling better today No shaking much at all He is sweating occasionally. Pts HR is stable today. Pt was seen by Dr. Jenkins and her Zoloft is to be increased to 50mg po daily. Objective Vitals Vital Signs Date Time Temp Pulse Resp B/P Pulse Ox O2 Delivery O2 Flow Rate FiO2 06/02/16 12:00 76 06/02/16 12:00 98.6 78 16 156/98 95 06/02/16 11:00 74 06/02/16 10:00 84 06/02/16 09:00 90 06/02/16 08:03 97 21 06/02/16 08:00 74 06/02/16 08:00 98.6 73 18 154/100 97 06/02/16 07:00 88 06/02/16 06:00 70 06/02/16 05:15 97 Nasal Cannula 2.00 06/02/16 05:00 76 06/02/16 04:00 72 06/02/16 03:00 71 06/02/16 03:00 98.0 72 18 140/85 93 06/02/16 02:00 84 06/02/16 01:00 90 06/02/16 00:00 88 06/01/16 23:16 98.1 86 18 149/98 96 06/01/16 23:00 92 06/01/16 22:00 96 06/01/16 21:00 94 06/01/16 20:00 92 06/01/16 19:00 108 06/01/16 18:06 107 18 138/93 97 Room Air 06/01/16 16:09 95 21 06/01/16 15:00 97 19 135/76 96 Room Air 06/01/16 06/01/16 06/02/16 15:00 23:00 07:00 Intake Total 1380 ml Output Total 600 ml 300 ml Balance -600 ml 1080 ml Intake Oral 480 ml IV Total 900 ml Output Urine Total 600 ml 300 ml # Voids 1 # Bowel Movements 0 Result Diagram: 06/01/16 0632 06/01/16 0632 Other Results Laboratory Tests Test 05/31/16 06/01/16 15:45 06:32 Urine Opiates Screen NEG Urine Barbiturates Screen NEG Urine Amphetamines Screen NEG Urine Benzodiazepines Screen NEG Urine Cocaine Screen NEG Urine Cannabinoids Screen NEG White Blood Count 9.3 TH/MM3 Red Blood Count 4.47 MIL/MM3 Hemoglobin 13.7 GM/DL Hematocrit 41.5 % Mean Corpuscular Volume 92.9 FL Mean Corpuscular Hemoglobin 30.6 PG Mean Corpuscular Hemoglobin 33.0 % Concent Red Cell Distribution Width 14.6 % Platelet Count 157 TH/MM3 Mean Platelet Volume 8.0 FL Neutrophils (%) (Auto) 76.9 % Lymphocytes (%) (Auto) 14.0 % Monocytes (%) (Auto) 7.8 % Eosinophils (%) (Auto) 0.7 % Basophils (%) (Auto) 0.6 % Neutrophils # (Auto) 7.1 TH/MM3 Lymphocytes # (Auto) 1.3 TH/MM3 Monocytes # (Auto) 0.7 TH/MM3 Eosinophils # (Auto) 0.1 TH/MM3 Basophils # (Auto) 0.1 TH/MM3 CBC Comment DIFF FINAL Differential Comment Sodium Level 136 MEQ/L Potassium Level 3.9 MEQ/L Chloride Level 97 MEQ/L Carbon Dioxide Level 30.5 MEQ/L Anion Gap 9 MEQ/L Blood Urea Nitrogen 21 MG/DL Creatinine 1.05 MG/DL Estimat Glomerular Filtration 72 ML/MIN Rate Random Glucose 122 MG/DL Calcium Level 9.8 MG/DL Magnesium Level 1.5 MG/DL Objective Remarks General: NAD, AAOx3 Chest: CTA Cardiac: Regular Abd: +BS, soft ND/NT Ext: No edema A/P Problem List: (1) Intractable vomiting Status: Acute Plan: - Pt admitted with intractable nausea/vomiting, likely related to alcohol abuse and withdrawal. - He is notably tachycardic and hypertensive in the ED likely because he is dehydrated and hasn't been taking his medications. - The pt is a binge drinker and has been drinking heavily for the last week as he has been more depressed. - Pt has been given IVF bolus in the ED and we will continue hydrating him with IVF - Today pt is tolerating his diet and has been improving clinically. - Appreciate Psychiatry consultation. He is not Barron Acted as he does not meet criteria. - He will continue on the Seroquel and Dr. Jenkins is increasing his dose of Zoloft to 50mg po daily. - Pt will be discharged with a few doses of Ativan as needed for withdrawal symptoms. Pt was instructed that this cannot be mixed with alcohol and he expressed understanding. - Protonix 40mg BID - Thiamine/Folic Acid/MVI - Alcohol cessation - pt reports that he is out of all of his medications and requested a refill for all of them. These were sent to the pharmacy. - We will hold the statin due to elevated LFTs which is likely secondary to his alcohol abuse. - His PCP will need to repeat labs as an outpt to determine when to resume the statin. (2) Acute alcohol intoxication Status: Acute Plan: - See above. (3) Alcohol abuse Status: Chronic Plan: - See above. (4) Tachyarrhythmia Status: Acute Plan: - Pt notably tachycardic at admission, felt initially to be secondary to withdrawals and dehydration - Pt continued to be tachycardic, sinus rhythm, and was started on Metoprolol 25mg po BID - HR controlled today he will be discharged with this new medications. - Telemetry (5) HTN (hypertension) Status: Chronic Plan: - Cont. home meds and Metoprolol (6) Depression Status: Chronic Plan: - See above. (7) Diabetes Status: Chronic Plan: - NovoLog SSI - Accu checks Assessment and Plan Patient examined. Assessment and plan formulated with Megan Carr PA-C. I agree with the above. Problem Qualifiers (1) Intractable vomiting: Qualified Code: R11.10 - Intractable vomiting, presence of nausea not specified , unspecified vomiting type (2) Acute alcohol intoxication: Qualified Code: F10.120 - Acute alcohol intoxication, uncomplicated Megan Carr Jun 02, 2016 13:39 Stephane Crandall DO Jun 04, 2016 10:42
[2016-06-02] MEDS ORDERED: MULTTAB67 PO (13:42)
[2016-06-02] MEDS ORDERED: THIA100T PO (13:42)
[2016-06-02] MEDS ORDERED: FOLI1TAB4 PO (13:42)
[2016-06-02] MEDS ORDERED: LORA-474 PO (13:43)
[2016-06-03] MEDS ORDERED: SERTRALINE HCL 50 MG TAB PO SCH (09:00)
== END 2016-06-02 14:32 | disposition home or self-care (01) ==
LOC: NEPC 12:28 → INTOOBSV 15:18 → NEDA 15:18 → NEDH 19:44 → HCIS 06-01 19:00
PROVIDERS: ADMIT Hospitalist; ATTEND Hospitalist
DX: F10.229 Alcohol dependence with intoxication, unspecified (principal); F10.239 Alcohol dependence with withdrawal, unspecified; Y90.6 Blood alcohol level of 120-199 mg/100 ml; R11.2 Nausea with vomiting, unspecified; I10 Essential (primary) hypertension; R00.0 Tachycardia, unspecified; E86.0 Dehydration; E11.9 Type 2 diabetes mellitus without complications; G47.33 Obstructive sleep apnea (adult) (pediatric); J44.9 Chronic obstructive pulmonary disease, unspecified; F31.9 Bipolar disorder, unspecified; K21.9 Gastro-esophageal reflux disease without esophagitis; E78.5 Hyperlipidemia, unspecified; Z86.73 Personal history of transient ischemic attack (TIA), and cerebral infarction without residual deficits; Z79.82 Long term (current) use of aspirin; Z87.891 Personal history of nicotine dependence; Z79.84 Long term (current) use of oral hypoglycemic drugs; Z91.19 Patient's noncompliance with other medical treatment and regimen
CPT/HCPCS: 76937; 80048; 80053; 80307; 82948; 83735; 85025; 93005; 96361; 96374; 96375; 97161; 99285; C9113; G0378; J1815; J2060; J2405; J7030

== ENCOUNTER 2016-06-23 21:10 | Emergency (ER) | payer OTHER ==
[~2016-06-23] VITALS: Ht 182.9 cm; Wt 88.0 kg
[~2016-06-23 21:10] MED LIST changes: +FOLI1TAB4 PO; -LIPI20TA PO; +LORA-474 PO; +METO25TA3 PO; +MULTTAB67 PO; +SERT25TA83 PO; +THIA100T PO; -ZOLO50TA PO
[2016-06-23 21:19] VITALS: BP 130/77; PULSE 89; RESP 15; TEMP 97.7; O2SAT 93
[2016-06-23] MEDS ORDERED: SODIUM CHLORIDE 0.9% FLUSH 10 ML FLUSH IVF PRN (22:00)
[2016-06-23] MEDS ORDERED: AMLO5TAB2 PO (22:29)
[2016-06-23 22:45] LABS: AUTOMATED NEUTROPHIL # 5.7 TH/MM3 (1.8-7.7); BASOPHIL # 0.1 TH/MM3 (0-0.2); BASOPHIL % 0.8 % (0.0-2.0); EOSINOPHIL # 0.1 TH/MM3 (0-0.4); EOSINOPHIL % 1.4 % (0.0-4.0); HEMATOCRIT 45.1 % (39.0-51.0); HEMO FLAGS DIFF FINAL; LYMPH % 30.4 % (9.0-44.0); LYMPHOCYTE # 2.7 TH/MM3 (1.0-4.8); MEAN CELL VOLUME 90.1 FL (80.0-100.0); MEAN CORPUSCULAR HEMOGLOBIN 30.7 PG (27.0-34.0); MEAN CORPUSCULAR HGB CONC 34.1 % (32.0-36.0); MONO % 4.4 % (0.0-8.0); PLATELET COUNT 278 TH/MM3 (150-450); RED BLOOD COUNT 5.01 MIL/MM3 (4.50-5.90); RED CELL DISTRIBUTION WIDTH 13.8 % (11.6-17.2)
[2016-06-23 22:47] LABS: AMPHETAMINE, URINE NEG (NEG); BARBITURATES, URINE NEG (NEG); COCAINE, URINE NEG (NEG)
[2016-06-23 23:24] LABS: ANION GAP 13 MEQ/L (5-15); BLOOD UREA NITROGEN 14 MG/DL (7-18); CHLORIDE 101 MEQ/L (98-107); GLOMERULAR FILTRATION RATE 62 ML/MIN (>89); POTASSIUM 4.2 MEQ/L (3.5-5.1); SODIUM (NA) 140 MEQ/L (136-145)
[2016-06-23 23:28] LABS: ACETAMINOPHEN LESS THAN 2.0 MCG/ML (10.0-30.0)
--- NOTE | 2016-06-23 23:48 | PD ---
HPI Chief Complaint: Altered Mental Status Time Seen by Provider: 21:46 Travel History International Travel<30 days: No Contact w/Intl Traveler<30days: No Traveled to known affect area: No History of Present Illness HPI 60-year-old male arrives due to altered mental status. He has had a low blood sugar about the course of the day. The states the blood sugar was 76 at home. It was 70 when he got here. Evidently he has been drinking alcohol for the past week, binge drinking according to the . At home the low glucose measurements were 48-50. Evidently he was hypotensive at home as well as a blood pressure of 88/47. The reports he is not compliant with his insulin. She states she has been somewhat incoherent at home however he has been drinking about 1.5 L of alcohol daily. PFSH Past Medical History Blood Disorders: No Anxiety: Yes Depression: Yes Heart Rhythm Problems: No Cancer: No Cardiovascular Problems: Yes (HTN) High Cholesterol: No Chest Pain: No Congestive Heart Failure: No COPD: Yes Cerebrovascular Accident: Yes (2008) Diabetes: Yes Diminished Hearing: No Endocrine: No Gastrointestinal Disorders: Yes GERD: Yes Genitourinary: No Headaches: Yes Hepatitis: No Hiatal Hernia: No Hypertension: Yes Immune Disorder: No Implanted Vascular Access Dvce: Yes Insomnia: Yes Musculoskeletal: No Neurologic: Yes Psychiatric: Yes (pt has chronic alcohol abuse, depression, and anxiety) Reproductive: No Respiratory: Yes Migraines: No Myocardial Infarction: No Seizures: Yes Sleep Apnea: Yes (CPAP) Thyroid Disease: Yes Ulcer: No Past Surgical History Abdominal Surgery: Yes (INGUINAL HERNIA REPAIR) AICD: No Appendectomy: No Arteriovenous Shunt: No Cholecystectomy: No Insulin Pump: No Joint Replacement: No Oral Surgery: Yes (toncilectomy) Pacemaker: No Tonsillectomy: Yes Other Surgery: Yes (SINUS) Social History Alcohol Use: Yes (drank today) Tobacco Use: No Substance Use: Yes (chronic alcohol abuse) Allergies-Medications (Allergen,Severity, Reaction): Coded Allergies: Erythromycin (Verified Allergy, Severe, Hives, 06/23/16) Penicillin (Verified Allergy, Severe, Hives, 06/23/16) Reported Meds & Prescriptions Reported Meds & Active Scripts Active Ativan (Lorazepam) 1 Mg Tab 1 Mg PO Q6H PRN Multiple Vitamin 1 Tab 1 Tab PO DAILY Folate (Folic Acid) 1 Mg Tab 1 Mg PO DAILY Thiamine (Thiamine HCl) 100 Mg Tab 100 Mg PO DAILY Sertraline (Sertraline HCl) 25 Mg Tab 50 Mg PO DAILY Protonix (Pantoprazole Sodium) 40 Mg Tab 40 Mg PO DAILY Levothyroxine (Levothyroxine Sodium) 88 Mcg Tab 88 Mcg PO DAILY Glucophage (Metformin HCl) 500 Mg Tab 500 Mg PO BIDPC With meals Quetiapine (Quetiapine Fumarate) 100 Mg Tab 100 Mg PO HS Diovan (Valsartan) 80 Mg Tab 80 Mg PO BID Reported Amlodipine (Amlodipine Besylate) 5 Mg Tab 5 Mg PO DAILY Aspirin 81 Mg Tabdr 81 Mg PO DAILY Review of Systems Except as stated in HPI: all other systems reviewed are Neg General / Constitutional: No: Fever, Chills Psychiatric: Positive: Substance Abuse (alcoholism) Endocrine: Positive: Other (low blood sugar) Physical Exam Narrative GENERAL: 60-year-old male well-nourished well-developed, slurred speech with alcohol intoxication affect SKIN: Focused skin assessment warm/dry. HEAD: Atraumatic. Normocephalic. EYES: Pupils equal and round. No scleral icterus. No injection or drainage. ENT: No nasal bleeding or discharge. Mucous membranes pink and moist. NECK: Trachea midline. No JVD. CARDIOVASCULAR: Regular rate and rhythm. No murmur appreciated. RESPIRATORY: No accessory muscle use. Clear to auscultation. Breath sounds equal bilaterally. GASTROINTESTINAL: Abdomen soft, non-tender, nondistended. Hepatic and splenic margins not palpable. MUSCULOSKELETAL: No obvious deformities. No clubbing. No cyanosis. No edema. NEUROLOGICAL: Awake and alert. The cranial nerves are normal. Moves all extremities. PSYCHIATRIC: EtOH on breath. Data Data Last Documented VS Vital Signs Date Time Temp Pulse Resp B/P Pulse Ox O2 Delivery O2 Flow Rate FiO2 06/23/16 21:19 97.7 89 15 130/77 93 Room Air Vital signs reviewed Orders Electrocardiogram (06/23/16 21:56) Basic Metabolic Panel (Bmp) (06/23/16 21:56) Complete Blood Count With Diff (06/23/16 21:56) Thyroid Stimulating Hormone (06/23/16 21:56) Blood Glucose (06/23/16 21:56) Ecg Monitoring (06/23/16 21:56) Iv Access Insert/Monitor (06/23/16 21:56) Oximetry (06/23/16 21:56) Sodium Chloride 0.9% Flush (Ns Flush) (06/23/16 22:00) Drug Screen, Random Urine (06/23/16 21:56) Alcohol (Ethanol) (06/23/16 21:56) Salicylates (Aspirin) (06/23/16 21:56) Tylenol (Acetaminophen) (06/23/16 21:56) Blood Glucose (06/23/16 21:56) Blood Glucose (06/23/16 22:56) Beta Hydroxybutyrate (Acetone) (06/23/16 22:05) Sodium Chlor 0.9% 1000 Ml Inj (Ns 1000 M (06/24/16 00:00) Sodium Chlor 0.9% 1000 Ml Inj (Ns 1000 M (06/24/16 00:00) Lorazepam Inj (Ativan Inj) (06/24/16 00:30) Labs Laboratory Tests Test 06/23/16 22:20 White Blood Count 9.0 TH/MM3 Red Blood Count 5.01 MIL/MM3 Hemoglobin 15.4 GM/DL Hematocrit 45.1 % Mean Corpuscular Volume 90.1 FL Mean Corpuscular Hemoglobin 30.7 PG Mean Corpuscular Hemoglobin 34.1 % Concent Red Cell Distribution Width 13.8 % Platelet Count 278 TH/MM3 Mean Platelet Volume 7.4 FL Neutrophils (%) (Auto) 63.0 % Lymphocytes (%) (Auto) 30.4 % Monocytes (%) (Auto) 4.4 % Eosinophils (%) (Auto) 1.4 % Basophils (%) (Auto) 0.8 % Neutrophils # (Auto) 5.7 TH/MM3 Lymphocytes # (Auto) 2.7 TH/MM3 Monocytes # (Auto) 0.4 TH/MM3 Eosinophils # (Auto) 0.1 TH/MM3 Basophils # (Auto) 0.1 TH/MM3 CBC Comment DIFF FINAL Differential Comment Sodium Level 140 MEQ/L Potassium Level 4.2 MEQ/L Chloride Level 101 MEQ/L Carbon Dioxide Level 26.0 MEQ/L Anion Gap 13 MEQ/L Blood Urea Nitrogen 14 MG/DL Creatinine 1.20 MG/DL Estimat Glomerular Filtration 62 ML/MIN Rate Random Glucose 72 MG/DL Calcium Level 8.9 MG/DL Thyroid Stimulating Hormone 1.120 uIU/ML 3rd Gen Salicylates Level LESS THAN 1.7 MG/DL Urine Opiates Screen NEG Acetaminophen Level LESS THAN 2.0 MCG/ML Urine Barbiturates Screen NEG Urine Amphetamines Screen NEG Urine Benzodiazepines Screen NEG Urine Cocaine Screen NEG Urine Cannabinoids Screen NEG Ethyl Alcohol Level 395 MG/DL B-Hydroxybutyrate 0.12 MMOL/L MDM Medical Decision Making Medical Screen Exam Complete: Yes Emergency Medical Condition: Yes Medical Record Reviewed: Yes Differential Diagnosis EtOH intox, PSA, MALKA, DTs Narrative Course CBC & BMP Diagram 06/23/16 22:20 TSH 1.120 Alcohol 395 Urine tox negative Patient has had repeat blood sugars checked. Most recent was 210. Patient received Ativan. He is with his sister here who can accompany him home and keep an eye on him. The patient is alert and oriented 3 and capable of independent decision making. He insists on leaving the hospital. Diagnosis Primary Impression: Acute alcohol intoxication Qualified Code: F10.120 - Acute alcohol intoxication, uncomplicated Referrals: Primary Care Physician 2 days Additional Instructions: You have a choice when it comes to health care, and we are glad that you chose [facility]. Hopefully, we have met your expectations on today's visit. You are welcome to return to [facility] at any time, as we are committed to meeting the health care needs of our community. Med/Other Pt SpecificInfo: No Change to Meds Disposition: 01 DISCHARGE HOME Condition: Stable Tod Zuñiga MD Jun 23, 2016 23:48
[2016-06-24] MEDS ORDERED: SODIUM CHLOR 0.9% 1000 ML INJ 1,000 ML IV ONE ×2
[2016-06-24] MEDS ORDERED: LORazepam 2 MG/ML VIAL IV PUSH ONE (00:30)
[2016-06-24 01:30] VITALS: BP 114/88; PULSE 98; RESP 14; O2SAT 95
--- NOTE | 2016-06-24 13:38 | EKG ---
Date Performed: 06/23/2016 Time Performed: 23:46:04 PTAGE: 60 years EKG: SINUS TACHYCARDIA ABNORMAL RHYTHM ECG Compared to prior tracing no significant change PREVIOUS TRACING : 05/31/2016 18.42 DOCTOR: Griffin Simpson Interpretating Date/Time 06/24/2016 13:34:45
== END 2016-06-24 01:44 | disposition home or self-care (01) ==
LOC: NEPE 21:10
DX: F10.120 Alcohol abuse with intoxication, uncomplicated (principal); I95.9 Hypotension, unspecified; Y90.8 Blood alcohol level of 240 mg/100 ml or more; Z79.899 Other long term (current) drug therapy
CPT/HCPCS: 80048; 80307; 82010; 84443; 85025; 93005; 96361; 96374; 99285; J2060; J7030

== ENCOUNTER 2016-06-25 18:01 | Emergency (ER) | payer OTHER ==
[~2016-06-25] VITALS: Ht 177.8 cm; Wt 110.0 kg
[~2016-06-25 18:01] MED LIST changes: +AMLO5TAB2 PO; -METO25TA3 PO
[2016-06-25 18:15] VITALS: BP 157/92; PULSE 115; RESP 16; TEMP 97.8; O2SAT 98
[2016-06-25] MEDS ORDERED: SODIUM CHLOR 0.9% 1000 ML INJ 1,000 ML IV ONE (18:30)
--- NOTE | 2016-06-25 18:58 | RADRPT ---
EXAM DATE/TIME: 06/25/2016 18:44 [facility] COMPARISON: CT BRAIN W/O CONTRAST, August 30, 2014, 18:01. INDICATIONS : Trauma; fall. RADIATION DOSE: 40.73 CTDIvol (mGy) MEDICAL HISTORY : Stroke. Seizures. SURGICAL HISTORY : None. ENCOUNTER: Initial ACUITY: 1 day PAIN SCALE: 5/10 LOCATION: chest TECHNIQUE: Multiple contiguous axial images were obtained of the head. Using automated exposure control and adj ustment of the mA and/or kV according to patient size, radiation dose was kept as low as reasonably a chievable to obtain optimal diagnostic quality images. FINDINGS: CEREBRUM: The ventricles and sulci are prominent, characteristic of moderate atrophy. There is also focal ence phalomalacia in the posterior right sylvian region characteristic of old infarction; this is unchange d in appearance from a prior CT 08/30/14.. No evidence of midline shift, mass lesion, hemorrhage or a cute infarction. No extra-axial fluid collections are seen. POSTERIOR FOSSA: The cerebellum and brainstem are intact. The 4th ventricle is midline. The cerebellopontine angle i s unremarkable. EXTRACRANIAL: The visualized portion of the orbits is intact. SKULL: The calvaria is intact. No evidence of skull fracture. CONCLUSION: 1. No acute findings. 2. 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 Luis Nielsen MD on June 25, 2016 at 18:53 Board Certified Radiologist. This report was verified electronically.
--- NOTE | 2016-06-25 19:08 | RADRPT ---
EXAM DATE/TIME: 06/25/2016 18:44 [facility] COMPARISON: CT CERVICAL SPINE W/O CONTRAST, August 30, 2014, 18:01. INDICATIONS : Trauma; fall. RADIATION DOSE: 25.04 CTDIvol (mGy) MEDICAL HISTORY : Stroke. Cardiovascular disease SURGICAL HISTORY : None. ENCOUNTER: Initial ACUITY: 1 day PAIN SCALE: 5/10 LOCATION: Bilateral neck TECHNIQUE: Volumetric scanning of the cervical spine was performed. Multiplanar reconstructions in the sagittal, coronal and oblique axial planes were performed. Using automated exposure control and adjustment o f the mA and/or kV according to patient size, radiation dose was kept as low as reasonably achievable to obtain optimal diagnostic quality images. FINDINGS: There is normal alignment of the vertebral bodies of cervical spine in sagittal projection. There is mild curvature towards the left, stable from prior. Partially bridging anterior paravertebral ossif ication is present on the left than right side C4-C7. The posterior elements are in normal alignment . No evidence of locked or perched facets. The spinous processes are intact. Atlantoaxial articula tion is intact.. C2-C3: Neural foramen are patent bilaterally. C3-C4: Mild uncovertebral joint hypertrophy on the left side and mild left-sided neural from stenosis. C4-C5: Ridge of osteophytes and uncovertebral joint hypertrophy flattens the ventral thecal sac there is mod erate bilateral neural foraminal stenosis. C5-C6: Osteophytic ridging flattens the ventral margin of the thecal sac. There is moderate severity bony n euroforaminal stenosis, left greater than right. C6-C7: Asymmetric uncovertebral joint hypertrophy also causes moderate left-sided bony neuroforaminal stenos is. C7-T1: Bony spinal canal is normal dimension. Neural foramina patent. CONCLUSION: No evidence of fracture or spondylolisthesis. Multilevel degenerative changes with uncovertebral melissa nt hypertrophy and neuroforaminal stenosis, overall very similar in appearance to prior examination o f August 2014. Luis Nielsen MD on June 25, 2016 at 18:57 Board Certified Radiologist. This report was verified electronically.
--- NOTE | 2016-06-25 19:43 | PD ---
HPI Chief Complaint: Alcohol/Drug Intoxication Time Seen by Provider: 18:17 Travel History International Travel<30 days: No Contact w/Intl Traveler<30days: No Traveled to known affect area: No History of Present Illness HPI Patient is a 60-year-old male who comes in intoxicated after he fell down the stairs today. He has an abrasion to his chin. He has no complaints. PFSH Past Medical History Blood Disorders: No Anxiety: Yes Depression: Yes Heart Rhythm Problems: No Cancer: No Cardiovascular Problems: Yes (HTN) High Cholesterol: No Chest Pain: No Congestive Heart Failure: No COPD: Yes Cerebrovascular Accident: Yes (2008) Diabetes: Yes Diminished Hearing: No Endocrine: No Gastrointestinal Disorders: Yes GERD: Yes Genitourinary: No Headaches: Yes Hepatitis: No Hiatal Hernia: No Hypertension: Yes Immune Disorder: No Implanted Vascular Access Dvce: Yes Insomnia: Yes Musculoskeletal: No Neurologic: Yes Psychiatric: Yes (pt has chronic alcohol abuse, depression, and anxiety) Reproductive: No Respiratory: Yes Migraines: No Myocardial Infarction: No Seizures: Yes Sleep Apnea: Yes (CPAP) Thyroid Disease: Yes Ulcer: No Tetanus Vaccination: Unknown Influenza Vaccination: No Past Surgical History Abdominal Surgery: Yes (INGUINAL HERNIA REPAIR) AICD: No Appendectomy: No Arteriovenous Shunt: No Cholecystectomy: No Insulin Pump: No Joint Replacement: No Oral Surgery: Yes (toncilectomy) Pacemaker: No Tonsillectomy: Yes Other Surgery: Yes (SINUS) Social History Alcohol Use: Yes (DRINKS 1 BOTTLE OF VODKA DAILY) Tobacco Use: No Substance Use: No Allergies-Medications (Allergen,Severity, Reaction): Coded Allergies: Erythromycin (Verified Allergy, Severe, Hives, 06/23/16) Penicillin (Verified Allergy, Severe, Hives, 06/23/16) Reported Meds & Prescriptions Reported Meds & Active Scripts Active Ativan (Lorazepam) 1 Mg Tab 1 Mg PO Q6H PRN Multiple Vitamin 1 Tab 1 Tab PO DAILY Folate (Folic Acid) 1 Mg Tab 1 Mg PO DAILY Thiamine (Thiamine HCl) 100 Mg Tab 100 Mg PO DAILY Sertraline (Sertraline HCl) 25 Mg Tab 50 Mg PO DAILY Protonix (Pantoprazole Sodium) 40 Mg Tab 40 Mg PO DAILY Levothyroxine (Levothyroxine Sodium) 88 Mcg Tab 88 Mcg PO DAILY Glucophage (Metformin HCl) 500 Mg Tab 500 Mg PO BIDPC With meals Quetiapine (Quetiapine Fumarate) 100 Mg Tab 100 Mg PO HS Diovan (Valsartan) 80 Mg Tab 80 Mg PO BID Reported Amlodipine (Amlodipine Besylate) 5 Mg Tab 5 Mg PO DAILY Aspirin 81 Mg Tabdr 81 Mg PO DAILY Review of Systems ROS Limitations: Intoxication HENT: No: Headaches Cardiovascular: No: Chest Pain or Discomfort Respiratory: No: Shortness of Breath Gastrointestinal: No: Abdominal Pain Physical Exam Narrative GENERAL: Awake and alert, in no acute distress. Alcohol on breath. SKIN: Focused skin assessment warm/dry. Abrasion to the chin. HEAD: Atraumatic. Normocephalic. EYES: Pupils equal and round. No scleral icterus. Extraocular movements intact. ENT: No malocclusion. Mucous membranes pink and moist. NECK: Trachea midline. No JVD. No cervical spine tenderness. CARDIOVASCULAR: Regular rate and rhythm. No murmur appreciated. RESPIRATORY: No accessory muscle use. Clear to auscultation. Breath sounds equal bilaterally. GASTROINTESTINAL: Abdomen soft, non-tender, nondistended. MUSCULOSKELETAL: No obvious deformities. No clubbing. No cyanosis. No edema. NEUROLOGICAL: Awake and alert. No obvious cranial nerve deficits. Motor grossly within normal limits. Normal speech. PSYCHIATRIC: Appropriate mood and affect; insight and judgment normal. Data Data Last Documented VS Vital Signs Date Time Temp Pulse Resp B/P Pulse Ox O2 Delivery O2 Flow Rate FiO2 06/25/16 18:25 Room Air 06/25/16 18:25 115 06/25/16 18:15 97.8 16 157/[address] Brain W/O Iv Contrast(Rout) (06/25/16 ) Ct Cerv Spine W/O Contrast (06/25/16 ) Alcohol (Ethanol) (06/25/16 18:17) Sodium Chlor 0.9% 1000 Ml Inj (Ns 1000 M (06/25/16 18:30) Labs Laboratory Tests Test 06/25/16 18:23 Ethyl Alcohol Level 390 MG/DL MDM Medical Decision Making Medical Screen Exam Complete: Yes Emergency Medical Condition: Yes Medical Record Reviewed: Yes Differential Diagnosis Alcohol intoxication versus cervical spine injury versus head injury Narrative Course Patient is a 60-year-old male who comes in intoxicated after falling down the stairs. Exam shows an abrasion to the chin. IV was placed by EMS. Alcohol level sent, is 390. CT head and C-spine performed show no acute abnormalities. Patient will be discharged with his . His is comfortable with this plan at this time. Diagnosis Primary Impression: Acute alcohol intoxication Qualified Code: F10.120 - Acute alcohol intoxication, uncomplicated Patient Instructions: Alcohol Intoxication (ED), General Instructions Additional Instructions: Follow up with your doctor. Return to the ED as needed for any worsening symptoms. Cut down alcohol use. Disposition: 01 DISCHARGE HOME Condition: Stable Elli Douglas MD Jun 25, 2016 19:43
[2016-06-26] MEDS ORDERED: CHLO25CA2 PO (16:51)
[2016-06-26] MEDS ORDERED: SERO100T PO (18:44)
== END 2016-06-25 20:14 | disposition home or self-care (01) ==
LOC: NEPE 18:01
DX: F10.120 Alcohol abuse with intoxication, uncomplicated (principal); Y90.8 Blood alcohol level of 240 mg/100 ml or more; S00.81XA Abrasion of other part of head, initial encounter; W10.9XXA Fall (on) (from) unspecified stairs and steps, initial encounter; Z79.899 Other long term (current) drug therapy
CPT/HCPCS: 70450; 72125; 80307; 99284; J7030

== ENCOUNTER 2016-06-26 11:59 | Emergency (ER) | payer OTHER ==
[~2016-06-26] VITALS: Ht 177.8 cm; Wt 109.0 kg
[2016-06-26 12:08] VITALS: BP 141/102; PULSE 111; RESP 20; TEMP 97.3; O2SAT 97
[2016-06-26] MEDS ORDERED: SODIUM CHLOR 0.9% 1000 ML INJ 1,000 ML IV ONE ×2 (12:15→14:15)
--- NOTE | 2016-06-26 12:27 | PD ---
HPI Chief Complaint: Depression Time Seen by Provider: 12:03 Travel History International Travel<30 days: No Contact w/Intl Traveler<30days: No Traveled to known affect area: No History of Present Illness HPI The patient is a 60-year-old male who presents to the emergency department via EMS for alcohol intoxication and depression. EMS states there is seen with a call from the patient's , who found him at home, intoxicated. The patient states that he has been on a "sims" for the last 2 weeks, drinking vodka on a daily basis. The patient was just recently in the emergency department for alcohol intoxication. The patient does have a history of alcohol abuse in the past, started drinking heavily 2 weeks ago. He does note depression with intermittent thoughts of suicide, however, does not have an actual suicide plan. He denies having any firearms at home. He denies any previous suicide attempts. He denies any illicit drug use. The patient denies any company chest, shortness breath, nausea, vomiting, or abdominal pain. Symptoms are moderate, possibly exacerbated after consuming alcohol, and there are no current alleviating factors. PFSH Past Medical History Blood Disorders: No Anxiety: Yes Depression: Yes Heart Rhythm Problems: No Cancer: No Cardiovascular Problems: Yes (HTN) High Cholesterol: No Chest Pain: No Congestive Heart Failure: No COPD: Yes Cerebrovascular Accident: Yes (2008) Diabetes: Yes Diminished Hearing: No Endocrine: No Gastrointestinal Disorders: Yes GERD: Yes Genitourinary: No Headaches: Yes Hepatitis: No Hiatal Hernia: No Hypertension: Yes Immune Disorder: No Implanted Vascular Access Dvce: Yes Insomnia: Yes Musculoskeletal: No Neurologic: Yes Psychiatric: Yes (pt has chronic alcohol abuse, depression, and anxiety) Reproductive: No Respiratory: Yes Migraines: No Myocardial Infarction: No Seizures: Yes Sleep Apnea: Yes (CPAP) Thyroid Disease: Yes Ulcer: No Past Surgical History Abdominal Surgery: Yes (INGUINAL HERNIA REPAIR) AICD: No Appendectomy: No Arteriovenous Shunt: No Cholecystectomy: No Insulin Pump: No Joint Replacement: No Oral Surgery: Yes (toncilectomy) Pacemaker: No Tonsillectomy: Yes Other Surgery: Yes (SINUS) Social History Alcohol Use: Yes (DRINKS 1 BOTTLE OF VODKA DAILY) Tobacco Use: No Substance Use: No Allergies-Medications (Allergen,Severity, Reaction): Coded Allergies: Erythromycin (Verified Allergy, Severe, Hives, 06/23/16) Penicillin (Verified Allergy, Severe, Hives, 06/23/16) Reported Meds & Prescriptions Reported Meds & Active Scripts Active Chlordiazepoxide (Chlordiazepoxide HCl) 25 Mg Cap 25 Mg PO DIRECTED PRN Ativan (Lorazepam) 1 Mg Tab 1 Mg PO Q6H PRN Multiple Vitamin 1 Tab 1 Tab PO DAILY Folate (Folic Acid) 1 Mg Tab 1 Mg PO DAILY Thiamine (Thiamine HCl) 100 Mg Tab 100 Mg PO DAILY Sertraline (Sertraline HCl) 25 Mg Tab 50 Mg PO DAILY Protonix (Pantoprazole Sodium) 40 Mg Tab 40 Mg PO DAILY Levothyroxine (Levothyroxine Sodium) 88 Mcg Tab 88 Mcg PO DAILY Glucophage (Metformin HCl) 500 Mg Tab 500 Mg PO BIDPC With meals Quetiapine (Quetiapine Fumarate) 100 Mg Tab 100 Mg PO HS Diovan (Valsartan) 80 Mg Tab 80 Mg PO BID Reported Amlodipine (Amlodipine Besylate) 5 Mg Tab 5 Mg PO DAILY Aspirin 81 Mg Tabdr 81 Mg PO DAILY Review of Systems Except as stated in HPI: all other systems reviewed are Neg General / Constitutional: No: Fever HENT: No: Lightheadedness Cardiovascular: No: Chest Pain or Discomfort Respiratory: No: Shortness of Breath Gastrointestinal: No: Nausea, Vomiting, Abdominal Pain Psychiatric: Positive: Depression, Suicidal Ideations, Substance Abuse ( alcohol abuse) Physical Exam Narrative GENERAL: Awake, alert, pleasant 60-year-old male who appears his stated age and appears intoxicated. SKIN: Focused skin assessment warm/dry. HEAD: Atraumatic. Normocephalic. EYES: Pupils equal and round. Pupils are 3 mm is bilateral and reactive. Mild injection. Old appearing right periorbital ecchymosis. ENT: No nasal bleeding or discharge. Mucous membranes pink and moist. Breath smells of alcohol. NECK: Trachea midline. No JVD. CARDIOVASCULAR: Regular rate and rhythm. No murmur appreciated. RESPIRATORY: No accessory muscle use. Clear to auscultation. Breath sounds equal bilaterally. GASTROINTESTINAL: Abdomen soft, non-tender, nondistended. No rebound tenderness. MUSCULOSKELETAL: No obvious deformities. No clubbing. No cyanosis. No edema. NEUROLOGICAL: Awake and alert. No obvious cranial nerve deficits. Motor grossly within normal limits. Normal speech. Oriented to year and presently of [facility], does not know the current month. PSYCHIATRIC: Appears intoxicated. Data Data Last Documented VS Vital Signs Date Time Temp Pulse Resp B/P Pulse Ox O2 Delivery O2 Flow Rate FiO2 06/26/16 18:05 110 20 166/92 95 Nasal Cannula 2 06/26/16 12:08 97.3 Orders Complete Blood Count With Diff (06/26/16 12:15) Comprehensive Metabolic Panel (06/26/16 12:15) Psych Screen (06/26/16 12:15) Drug Screen, Random Urine (06/26/16 12:15) Alcohol (Ethanol) (06/26/16 12:15) Sodium Chlor 0.9% 1000 Ml Inj (Ns 1000 M (06/26/16 12:15) Sodium Chlor 0.9% 1000 Ml Inj (Ns 1000 M (06/26/16 14:15) Lorazepam Inj (Ativan Inj) (06/26/16 14:15) Alcohol Withdrawal Asmt-Ciwa ONCE (06/26/16 14:08) Ondansetron Inj (Zofran Inj) (06/26/16 14:15) Ondansetron Odt (Zofran Odt) (06/26/16 14:15) Acetaminophen (Tylenol) (06/26/16 14:15) Ibuprofen (Motrin) (06/26/16 14:15) Flumazenil Inj (Romazicon Inj) (06/26/16 14:15) Lorazepam (Ativan) (06/26/16 14:15) Lorazepam Inj (Ativan Inj) (06/26/16 14:15) Lorazepam (Ativan) (06/26/16 14:15) Lorazepam Inj (Ativan Inj) (06/26/16 14:15) Lorazepam Inj (Ativan Inj) (06/26/16 14:15) Lorazepam Inj (Ativan Inj) (06/26/16 14:15) Chlordiazepoxide (Librium) (06/26/16 17:00) Labs Laboratory Tests Test 06/26/16 06/26/16 06/26/16 12:15 12:30 13:50 White Blood Count 10.0 TH/MM3 Red Blood Count 4.76 MIL/MM3 Hemoglobin 14.5 GM/DL Hematocrit 43.2 % Mean Corpuscular Volume 90.9 FL Mean Corpuscular Hemoglobin 30.5 PG Mean Corpuscular Hemoglobin 33.5 % Concent Red Cell Distribution Width 14.4 % Platelet Count 220 TH/MM3 Mean Platelet Volume 7.8 FL Neutrophils (%) (Auto) 74.1 % Lymphocytes (%) (Auto) 20.0 % Monocytes (%) (Auto) 4.5 % Eosinophils (%) (Auto) 0.8 % Basophils (%) (Auto) 0.6 % Neutrophils # (Auto) 7.4 TH/MM3 Lymphocytes # (Auto) 2.0 TH/MM3 Monocytes # (Auto) 0.5 TH/MM3 Eosinophils # (Auto) 0.1 TH/MM3 Basophils # (Auto) 0.1 TH/MM3 CBC Comment DIFF FINAL Differential Comment Sodium Level 137 MEQ/L Potassium Level 4.8 MEQ/L Chloride Level 100 MEQ/L Carbon Dioxide Level 24.5 MEQ/L Anion Gap 13 MEQ/L Blood Urea Nitrogen 10 MG/DL Creatinine 1.02 MG/DL Estimat Glomerular Filtration 75 ML/MIN Rate Random Glucose 143 MG/DL Calcium Level 8.0 MG/DL Total Bilirubin 0.6 MG/DL Aspartate Amino Transf 105 U/L (AST/SGOT) Alanine Aminotransferase 43 U/L (ALT/SGPT) Alkaline Phosphatase 143 U/L Total Protein 7.9 GM/DL Albumin 3.5 GM/DL Ethyl Alcohol Level 403 MG/DL Urine Opiates Screen NEG Urine Barbiturates Screen NEG Urine Amphetamines Screen NEG Urine Benzodiazepines Screen POS Urine Cocaine Screen NEG Urine Cannabinoids Screen NEG MDM Medical Decision Making Medical Screen Exam Complete: Yes Emergency Medical Condition: Yes Medical Record Reviewed: Yes Interpretation(s) Laboratory Tests Test 06/26/16 06/26/16 12:15 12:30 White Blood Count 10.0 TH/MM3 Red Blood Count 4.76 MIL/MM3 Hemoglobin 14.5 GM/DL Hematocrit 43.2 % Mean Corpuscular Volume 90.9 FL Mean Corpuscular Hemoglobin 30.5 PG Mean Corpuscular Hemoglobin 33.5 % Concent Red Cell Distribution Width 14.4 % Platelet Count 220 TH/MM3 Mean Platelet Volume 7.8 FL Neutrophils (%) (Auto) 74.1 % Lymphocytes (%) (Auto) 20.0 % Monocytes (%) (Auto) 4.5 % Eosinophils (%) (Auto) 0.8 % Basophils (%) (Auto) 0.6 % Neutrophils # (Auto) 7.4 TH/MM3 Lymphocytes # (Auto) 2.0 TH/MM3 Monocytes # (Auto) 0.5 TH/MM3 Eosinophils # (Auto) 0.1 TH/MM3 Basophils # (Auto) 0.1 TH/MM3 CBC Comment DIFF FINAL Differential Comment Sodium Level 137 MEQ/L Potassium Level 4.8 MEQ/L Chloride Level 100 MEQ/L Carbon Dioxide Level 24.5 MEQ/L Anion Gap 13 MEQ/L Blood Urea Nitrogen 10 MG/DL Creatinine 1.02 MG/DL Estimat Glomerular Filtration 75 ML/MIN Rate Random Glucose 143 MG/DL Calcium Level 8.0 MG/DL Total Bilirubin 0.6 MG/DL Aspartate Amino Transf 105 U/L (AST/SGOT) Alanine Aminotransferase 43 U/L (ALT/SGPT) Alkaline Phosphatase 143 U/L Total Protein 7.9 GM/DL Albumin 3.5 GM/DL Ethyl Alcohol Level 403 MG/DL Differential Diagnosis Differential diagnosis includes substance induced mood disorder, alcohol intoxication, alcohol abuse, depressive disorder NOS. Narrative Course IV was established, labs are drawn and sent, and the patient was placed on cardiac telemetry monitoring and continuous pulse oximetry monitoring. Patient was administered IV fluids. Alcohol level was sent to lab. Psychiatric evaluation was ordered. The patient was cleared by psychiatry. The patient was administered Librium 25 mg orally to prevent alcohol withdrawal. The patient will be discharged home with his , is requesting Syracol 25 mg at night for sleep, he normally takes the Seroquel. Patient will be discharged home on tapering dose of Librium. He is advised not to drink alcohol while on Librium. Diagnosis Primary Impression: Alcohol abuse Additional Impression: Acute alcohol intoxication Qualified Code: F10.120 - Acute alcohol intoxication, uncomplicated Patient Instructions: General Instructions Med/Other Pt SpecificInfo: Prescription(s) given Scripts Quetiapine (Seroquel)100 Mg [id number] Mg PO HS #30 TAB Ref 0 Prov:Darin Thibodeaux MD 06/26/16 Chlordiazepoxide 25 Mg Cap25 Mg PO DIRECTED PRN (Anxiety) #20 CAP Ref 0 Prov:Darin Thibodeaux MD 06/26/16 Disposition: DISCHARGE HOME Condition: Stable Darin Thibodeaux MD Jun 26, 2016 12:27
[2016-06-26 12:57] LABS: AUTOMATED NEUTROPHIL # 7.4 TH/MM3 (1.8-7.7); BASOPHIL # 0.1 TH/MM3 (0-0.2); BASOPHIL % 0.6 % (0.0-2.0); EOSINOPHIL # 0.1 TH/MM3 (0-0.4); EOSINOPHIL % 0.8 % (0.0-4.0); HEMATOCRIT 43.2 % (39.0-51.0); HEMO FLAGS DIFF FINAL; MEAN CELL VOLUME 90.9 FL (80.0-100.0); MEAN CORPUSCULAR HEMOGLOBIN 30.5 PG (27.0-34.0); MEAN CORPUSCULAR HGB CONC 33.5 % (32.0-36.0); MONO % 4.5 % (0.0-8.0); NEUT % 74.1 % (16.0-70.0); PLATELET COUNT 220 TH/MM3 (150-450); RED BLOOD COUNT 4.76 MIL/MM3 (4.50-5.90); RED CELL DISTRIBUTION WIDTH 14.4 % (11.6-17.2)
[2016-06-26 13:21] LABS: ALKALINE PHOSPHATASE 143 U/L (45-117); ALT (GPT) 43 U/L (12-78); ANION GAP 13 MEQ/L (5-15); AST (GOT) 105 U/L (15-37); BICARBONATE 24.5 MEQ/L (21.0-32.0); BLOOD UREA NITROGEN 10 MG/DL (7-18); CHLORIDE 100 MEQ/L (98-107); GLOMERULAR FILTRATION RATE 75 ML/MIN (>89); POTASSIUM 4.8 MEQ/L (3.5-5.1); SODIUM (NA) 137 MEQ/L (136-145); TOTAL BILIRUBIN ADULT 0.6 MG/DL (0.2-1.0)
[2016-06-26 14:00] VITALS: BP 151/92; PULSE 128; RESP 18; O2SAT 96
[2016-06-26] MEDS ORDERED: FLUMAZENIL 0.5 MG/5 ML VIAL IV PUSH PRN (14:15)
[2016-06-26] MEDS ORDERED: ONDANSETRON ODT 4 MG TAB PO PRN (14:15)
[2016-06-26] MEDS ORDERED: LORazepam 2 MG/ML VIAL IV PUSH ONE (14:15)
[2016-06-26] MEDS ORDERED: ACETAMINOPHEN 325 MG TAB PO PRN (14:15)
[2016-06-26] MEDS ORDERED: LORazepam 2 MG/ML VIAL IV PUSH PRN ×4 (14:15)
[2016-06-26] MEDS ORDERED: IBUPROFEN 600 MG TAB PO PRN (14:15)
[2016-06-26] MEDS ORDERED: ONDANSETRON HCL 4 MG/2 ML VIAL IV PUSH PRN (14:15)
[2016-06-26] MEDS ORDERED: LORazepam 2 MG TAB PO PRN (14:15)
[2016-06-26] MEDS ORDERED: LORazepam 1 MG TAB PO PRN (14:15)
[2016-06-26 16:00] VITALS: BP 168/124; PULSE 120; RESP 20; O2SAT 95
[2016-06-26 16:20] LABS: AMPHETAMINE, URINE NEG (NEG); BARBITURATES, URINE NEG (NEG); COCAINE, URINE NEG (NEG)
[2016-06-26] MEDS ORDERED: CHLO25CA2 PO (16:51)
[2016-06-26] MEDS ORDERED: chlordiazePOXIDE 25 MG CAP PO ONE (17:00)
[2016-06-26 18:05] VITALS: BP 166/92; PULSE 110; RESP 20; O2SAT 95
[2016-06-26] MEDS ORDERED: SERO100T PO (18:44)
== END 2016-06-26 19:09 | disposition home or self-care (01) ==
LOC: NEPC 11:59
DX: F10.10 Alcohol abuse, uncomplicated (principal); F41.8 Other specified anxiety disorders; I10 Essential (primary) hypertension; E11.9 Type 2 diabetes mellitus without complications; G47.30 Sleep apnea, unspecified; Y90.8 Blood alcohol level of 240 mg/100 ml or more; Z88.0 Allergy status to penicillin; Z79.84 Long term (current) use of oral hypoglycemic drugs
CPT/HCPCS: 80053; 80307; 85025; 96361; 96374; 96376; 99284; J2060; J7030

== ENCOUNTER 2016-06-28 20:02 | Emergency (ER) | payer OTHER ==
[~2016-06-28 20:02] MED LIST changes: +CHLO25CA2 PO; +SERO100T PO
[2016-06-28 20:10] VITALS: BP 179/100; PULSE 98; RESP 10; TEMP 97.9; O2SAT 94
[2016-06-28 20:35] VITALS: BP 180/107; PULSE 116; RESP 16; TEMP 98.1; O2SAT 96
--- NOTE | 2016-06-28 20:41 | PD ---
HPI Chief Complaint: Psychiatric Symptoms Time Seen by Provider: 20:41 Travel History International Travel<30 days: No Contact w/Intl Traveler<30days: No History of Present Illness HPI 60-year-old male with a history of hypertension, hyperlipidemia, diabetes, depression, alcohol abuse is brought to the emergency department under Barron act for suicidal ideations. The patient states that he struggles with depression and has been experiencing suicidal ideations today. States that he told his and she called police who placed him under Barron act. The patient states that he has drank about 2 pints of vodka today. States that he does not drink alcohol daily, states that he is a "binge drinker." He denies any attempts to harm himself, denies any ingestion of substances in an attempt to harm himself. He denies homicidal ideations. Denies drug use. Denies any medical complaints. He has a scrape on his chin and a bruise to his right eye but denies any recent falls or traumatic injuries. PFSH Past Medical History Blood Disorders: No Anxiety: Yes Depression: Yes Heart Rhythm Problems: No Cancer: No Cardiovascular Problems: Yes (HTN) High Cholesterol: No Chest Pain: No Congestive Heart Failure: No COPD: Yes Cerebrovascular Accident: Yes (2008) Diabetes: Yes Patient Takes Glucophage: Yes Diminished Hearing: No Endocrine: No Gastrointestinal Disorders: Yes GERD: Yes Genitourinary: No Headaches: Yes Hepatitis: No Hiatal Hernia: No Hypertension: Yes Immune Disorder: No Implanted Vascular Access Dvce: Yes Insomnia: Yes Musculoskeletal: No Neurologic: Yes Psychiatric: Yes (pt has chronic alcohol abuse, depression, and anxiety) Reproductive: No Respiratory: Yes Migraines: No Myocardial Infarction: No Seizures: Yes Sleep Apnea: Yes (CPAP) Thyroid Disease: Yes Ulcer: No Tetanus Vaccination: > 5 Years Influenza Vaccination: No Past Surgical History Abdominal Surgery: Yes (INGUINAL HERNIA REPAIR) AICD: No Appendectomy: No Arteriovenous Shunt: No Cholecystectomy: No Insulin Pump: No Joint Replacement: No Oral Surgery: Yes (toncilectomy) Pacemaker: No Tonsillectomy: Yes Other Surgery: Yes (SINUS) Social History Alcohol Use: Yes (DRINKS 1 BOTTLE OF VODKA DAILY) Tobacco Use: No Substance Use: No Allergies-Medications (Allergen,Severity, Reaction): Coded Allergies: Erythromycin (Verified Allergy, Severe, Hives, 06/23/16) Penicillin (Verified Allergy, Severe, Hives, 06/23/16) Reported Meds & Prescriptions Reported Meds & Active Scripts Active Seroquel (Quetiapine Fumarate) 100 Mg Tab 100 Mg PO HS Chlordiazepoxide (Chlordiazepoxide HCl) 25 Mg Cap 25 Mg PO DIRECTED PRN Ativan (Lorazepam) 1 Mg Tab 1 Mg PO Q6H PRN Multiple Vitamin 1 Tab 1 Tab PO DAILY Folate (Folic Acid) 1 Mg Tab 1 Mg PO DAILY Thiamine (Thiamine HCl) 100 Mg Tab 100 Mg PO DAILY Sertraline (Sertraline HCl) 25 Mg Tab 50 Mg PO DAILY Protonix (Pantoprazole Sodium) 40 Mg Tab 40 Mg PO DAILY Levothyroxine (Levothyroxine Sodium) 88 Mcg Tab 88 Mcg PO DAILY Glucophage (Metformin HCl) 500 Mg Tab 500 Mg PO BIDPC With meals Quetiapine (Quetiapine Fumarate) 100 Mg Tab 100 Mg PO HS Diovan (Valsartan) 80 Mg Tab 80 Mg PO BID Reported Amlodipine (Amlodipine Besylate) 5 Mg Tab 5 Mg PO DAILY Aspirin 81 Mg Tabdr 81 Mg PO DAILY Review of Systems Except as stated in HPI: all other systems reviewed are Neg Physical Exam Narrative GENERAL: Well-nourished and well-developed male patient in no acute distress, appears intoxicated. SKIN: Warm and dry. Abrasion to chin. HEAD: Normocephalic and atraumatic. EYES: Right eye subconjunctival hemorrhage with small bruising to right upper eyelid. No injection, drainage, or hyphema noted. PERRLA. EOMI. ENT: No nasal drainage noted. Oropharynx is clear. NECK: Supple and the trachea is midline. CARDIOVASCULAR: Regular rate and rhythm. RESPIRATORY: Breath sounds are equal bilaterally with no accessory muscle use, wheezing, rhonchi, or crackles. GASTROINTESTINAL: Abdomen is soft, non-tender, and nondistended. MUSCULOSKELETAL: No obvious deformities, swelling, cyanosis, or ecchymosis is present throughout the upper and lower extremities. Patient has full range of motion without any signs of neurovascular compromise. NEUROLOGICAL: Awake, alert, and oriented. Normal speech and gait. Cranial nerves are grossly intact. Data Data Last Documented VS Vital Signs Date Time Temp Pulse Resp B/P Pulse Ox O2 Delivery O2 Flow Rate FiO2 06/28/16 21:30 122 18 140/90 96 Room Air 06/28/16 20:35 98.1 Orders Complete Blood Count With Diff (06/28/16 20:08) Comprehensive Metabolic Panel (06/28/16 20:08) Psych Screen (06/28/16 20:08) Drug Screen, Random Urine (06/28/16 20:08) Alcohol (Ethanol) (06/28/16 20:08) Salicylates (Aspirin) (06/28/16 20:08) Tylenol (Acetaminophen) (06/28/16 20:08) Ct Brain W/O Iv Contrast(Rout) (06/28/16 20:40) Potassium Chloride Eff (K-Lyte Cl Eff) (06/28/16 21:30) Sodium Chlor 0.9% 1000 Ml Inj (Ns 1000 M (06/28/16 21:29) Labs Laboratory Tests Test 06/28/16 20:26 White Blood Count 7.1 TH/MM3 Red Blood Count 4.50 MIL/MM3 Hemoglobin 14.1 GM/DL Hematocrit 40.7 % Mean Corpuscular Volume 90.3 FL Mean Corpuscular Hemoglobin 31.2 PG Mean Corpuscular Hemoglobin 34.5 % Concent Red Cell Distribution Width 14.3 % Platelet Count 136 TH/MM3 Mean Platelet Volume 7.9 FL Neutrophils (%) (Auto) 61.2 % Lymphocytes (%) (Auto) 32.1 % Monocytes (%) (Auto) 4.8 % Eosinophils (%) (Auto) 1.2 % Basophils (%) (Auto) 0.7 % Neutrophils # (Auto) 4.3 TH/MM3 Lymphocytes # (Auto) 2.3 TH/MM3 Monocytes # (Auto) 0.3 TH/MM3 Eosinophils # (Auto) 0.1 TH/MM3 Basophils # (Auto) 0.1 TH/MM3 CBC Comment DIFF FINAL Differential Comment Sodium Level 141 MEQ/L Potassium Level 3.1 MEQ/L Chloride Level 100 MEQ/L Carbon Dioxide Level 29.0 MEQ/L Anion Gap 12 MEQ/L Blood Urea Nitrogen 10 MG/DL Creatinine 1.02 MG/DL Estimat Glomerular Filtration 75 ML/MIN Rate Random Glucose 77 MG/DL Calcium Level 8.3 MG/DL Total Bilirubin 0.9 MG/DL Aspartate Amino Transf 115 U/L (AST/SGOT) Alanine Aminotransferase 53 U/L (ALT/SGPT) Alkaline Phosphatase 131 U/L Total Protein 7.8 GM/DL Albumin 3.7 GM/DL Salicylates Level LESS THAN 1.7 MG/DL Urine Opiates Screen NEG Acetaminophen Level LESS THAN 2.0 MCG/ML Urine Barbiturates Screen NEG Urine Amphetamines Screen NEG Urine Benzodiazepines Screen NEG Urine Cocaine Screen NEG Urine Cannabinoids Screen NEG Ethyl Alcohol Level 363 MG/DL MDM Medical Decision Making Medical Screen Exam Complete: Yes Emergency Medical Condition: Yes Differential Diagnosis Differential: Depression versus adjustment reaction versus anxiety versus PTSD versus psychosis NOS versus mood disorder NOS versus substance induced mood disorder versus ODD versus adjustment reaction versus schizophrenia versus bipolar disorder versus schizoaffective versus electrolyte abnormality Narrative Course Patient presents under a Barron act for suicidal ideations. Patient has no medical complaints to report. The patient does appear to be intoxicated. He is tachycardic with a heart rate of 116 bpm. Slightly hypertensive with a blood pressure 180/107. He does have a small contusion to the top of his right eye and a subconjunctival hemorrhage of the right eye and he has an abrasion to his chin. He doesn't recall falling. Head CT has been ordered and is pending. Psych screen has been ordered. CBC shows slightly decreased platelet count of 136,000, otherwise unremarkable. CMP shows hypokalemia with a potassium of 3.1, this is repleted orally. Slightly elevated AST and alkaline phosphatase. Urine tox is negative. Salicylate and Tylenol levels are within normal limits. EtOH is 363. The patient will be observed here in the emergency department while he metabolizes the alcohol. Otherwise he is medically clear for psychiatric evaluation and disposition. Diagnosis Primary Impression: Substance induced mood disorder Additional Impressions: Acute alcohol intoxication Qualified Code: F10.120 - Acute alcohol intoxication, uncomplicated Hypokalemia Alexa Sanabria Jun 28, 2016 20:41
[2016-06-28 20:43] LABS: AUTOMATED NEUTROPHIL # 4.3 TH/MM3 (1.8-7.7); BASOPHIL # 0.1 TH/MM3 (0-0.2); BASOPHIL % 0.7 % (0.0-2.0); EOSINOPHIL # 0.1 TH/MM3 (0-0.4); EOSINOPHIL % 1.2 % (0.0-4.0); HEMATOCRIT 40.7 % (39.0-51.0); HEMO FLAGS DIFF FINAL; LYMPH % 32.1 % (9.0-44.0); LYMPHOCYTE # 2.3 TH/MM3 (1.0-4.8); MEAN CELL VOLUME 90.3 FL (80.0-100.0); MEAN CORPUSCULAR HEMOGLOBIN 31.2 PG (27.0-34.0); MEAN CORPUSCULAR HGB CONC 34.5 % (32.0-36.0); MONO % 4.8 % (0.0-8.0); NEUT % 61.2 % (16.0-70.0); PLATELET COUNT 136 TH/MM3 (150-450); RED CELL DISTRIBUTION WIDTH 14.3 % (11.6-17.2); WHITE BLOOD COUNT 7.1 TH/MM3 (4.0-11.0)
[2016-06-28 20:48] LABS: AMPHETAMINE, URINE NEG (NEG); BARBITURATES, URINE NEG (NEG); COCAINE, URINE NEG (NEG)
[2016-06-28 20:52] LABS: ANION GAP 12 MEQ/L (5-15)
[2016-06-28 20:55] LABS: ACETAMINOPHEN LESS THAN 2.0 MCG/ML (10.0-30.0); ALKALINE PHOSPHATASE 131 U/L (45-117); ALT (GPT) 53 U/L (12-78); AST (GOT) 115 U/L (15-37); BLOOD UREA NITROGEN 10 MG/DL (7-18); CHLORIDE 100 MEQ/L (98-107); GLOMERULAR FILTRATION RATE 75 ML/MIN (>89); POTASSIUM 3.1 MEQ/L (3.5-5.1); SODIUM (NA) 141 MEQ/L (136-145); TOTAL BILIRUBIN ADULT 0.9 MG/DL (0.2-1.0)
--- NOTE | 2016-06-28 21:16 | RADRPT ---
EXAM DATE/TIME: 06/28/2016 20:58 [facility] COMPARISON: CT BRAIN W/O CONTRAST, June 25, 2016, 18:44. INDICATIONS : Altered mental status. RADIATION DOSE: 41.86 CTDIvol (mGy) MEDICAL HISTORY : Seizures. Cerebrovascular disease. Hypertension.Diabetes. SURGICAL HISTORY : None. ENCOUNTER: Initial ACUITY: 1 day PAIN SCALE: 0/10 LOCATION: cranial TECHNIQUE: Multiple contiguous axial images were obtained of the head. Using automated exposure control and adj ustment of the mA and/or kV according to patient size, radiation dose was kept as low as reasonably a chievable to obtain optimal diagnostic quality images. FINDINGS: CEREBRUM: The ventricles are normal for age. No evidence of midline shift, mass lesion, hemorrhage or acute in farction. No extra-axial fluid collections are seen. Atrophy and chronic white matter changes are ag ain noted. There is an old right parietal lobe infarct again seen. POSTERIOR FOSSA: The cerebellum and brainstem are intact. The 4th ventricle is midline. The cerebellopontine angle i s unremarkable. EXTRACRANIAL: The visualized portion of the orbits is intact. SKULL: The calvaria is intact. No evidence of skull fracture. CONCLUSION: 1. No acute intracranial abnormality. 2. Old right parietal lobe infarct. Dionisio Poole MD on June 28, 2016 at 21:13 Board Certified Radiologist. This report was verified electronically.
[2016-06-28] MEDS ORDERED: SODIUM CHLOR 0.9% 1000 ML INJ 1,000 ML IV SCH (21:29)
[2016-06-28 21:30] VITALS: BP 140/90; PULSE 122; RESP 18; O2SAT 96
[2016-06-28] MEDS ORDERED: POTASSIUM CHLORIDE 25 MEQ EFFERVESCENT TAB PO ONE (21:30)
[2016-06-29 00:11] VITALS: BP 165/95; PULSE 124; RESP 18; TEMP 98; O2SAT 95
[2016-06-29] MEDS ORDERED: LORazepam 2 MG/ML VIAL IV PUSH PRN ×4 (00:15)
[2016-06-29] MEDS ORDERED: LORazepam 2 MG TAB PO PRN (00:15)
[2016-06-29] MEDS ORDERED: LORazepam 1 MG TAB PO PRN (00:15)
[2016-06-29] MEDS ORDERED: FLUMAZENIL 0.5 MG/5 ML VIAL IV PUSH PRN (00:15)
[2016-06-29 02:46] VITALS: BP 145/89; PULSE 125; RESP 18; O2SAT 95
[2016-06-29 07:29] VITALS: BP 150/91; PULSE 102; RESP 17; TEMP 97.8; O2SAT 99
[2016-06-29 09:40] VITALS: BP 157/90; PULSE 102; RESP 17; TEMP 98.1; O2SAT 99
--- NOTE | 2016-06-29 10:26 | PD ---
History of Present Illness Chief Complaint: Psychiatric Symptoms Time Seen by Provider: 10:25 Travel History International Travel<30 Days: No Contact w/Intl Traveler<30days: No Legal Status Legal Status: [place] Act History of Present Illness: History of Present Illness HPI 60-year-old male with multiple medical issues as well as alcohol dependence and depressive disorder who is brought to the emergency department under Barron act for suicidal ideations. The BA states that the patient was intoxicated and that while intoxicated he verbalized suicidal ideation. The patient has not made any attempts at harming himself. Upon arrival to the ED the patient presents with BAL of 363. EMR is reviewed. He has been to ED for alcohol intoxication as well as complications from such on 3 previous visits this month. Prior to this the patient has been hospitalized here at [facility] for treatment of depression as well as alcohol abuse with his last admission being on 2015 under the care of Dr. Jenkins. In his consultation Dr. Jenkins notes that this patient has a pattern of drinking alcohol and coming into the hospital for a few days and then requesting discharge with out committing to sobriety. The patient is seen in main ed. Awake, alert and cooperative. He is now clinically sober. He does have tremors and is requesting Ativan for symptoms of withdrawal. His speech is clear and logical. There is no pressure of speech. There is no psychosis. Mood is anxious as well as depressed. He denies any suicidal or homicidal ideation, intent or plan. Admits to financial as well as marital stressors at this time. He states that he is a binge d drinker and that he has been drinking now for about 10 days. He has been involved in AA in the past. At this time he is interested in detox and has plans on contacting his insurance company to arrange admission to either [facility] detox or to [facility] IOP services. He will be provided information for other detox centers in the area. Telephone call to his with permission. She is informed of options including the [place] act. I have recommended this as the best option for her if he does not follow thru with his plans. She is aware and will file if he does not follow thru with going to detox upon his discharge from [facility]. PFSH Past Medical History Blood Disorders: No Anxiety: Yes Depression: Yes Heart Rhythm Problems: No Cancer: No Cardiovascular Problems: Yes (HTN) High Cholesterol: No Chest Pain: No Congestive Heart Failure: No COPD: Yes Cerebrovascular Accident: Yes (2008) Diabetes: Yes Patient Takes Glucophage: Yes Diminished Hearing: No Endocrine: No Gastrointestinal Disorders: Yes GERD: Yes Genitourinary: No Headaches: Yes Hepatitis: No Hiatal Hernia: No Hypertension: Yes Immune Disorder: No Implanted Vascular Access Dvce: Yes Insomnia: Yes Musculoskeletal: No Neurologic: Yes Psychiatric: Yes (pt has chronic alcohol abuse, depression, and anxiety) Reproductive: No Respiratory: Yes Migraines: No Myocardial Infarction: No Seizures: Yes Sleep Apnea: Yes (CPAP) Thyroid Disease: Yes Ulcer: No Tetanus Vaccination: > 5 Years Influenza Vaccination: No Past Surgical History Abdominal Surgery: Yes (INGUINAL HERNIA REPAIR) AICD: No Appendectomy: No Arteriovenous Shunt: No Cholecystectomy: No Insulin Pump: No Joint Replacement: No Oral Surgery: Yes (toncilectomy) Pacemaker: No Tonsillectomy: Yes Other Surgery: Yes (SINUS) Psychiatric History Psychiatric History Hx Psychiatric Treatment: Patient has had multiple inpatient hospitalizations at [place]. Patient has been seeing Dr. Alaniz for outpatient services. Patient has also been to [facility] for Detox and [facility] for Detox. Dr. Alaniz as outpatietn . Sees him every 6 weeks. History of Inpatient Treatment: Yes Guns or firearms in home: No Social History x 17 years. No children. 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 Hx Alcohol Use: Yes (DRINKS 1 BOTTLE OF VODKA DAILY) Hx Tobacco Use: No Hx Substance Use: No Substance Use Type: Alcohol Other Substances Used: QT. OF VODKA TODAY Hx of Substance Use Treatment: Yes Family Psychiatric History None re[ported Allergies-Medications (Allergen,Severity, Reaction): Coded Allergies: Erythromycin (Verified Allergy, Severe, Hives, 06/23/16) Penicillin (Verified Allergy, Severe, Hives, 06/23/16) Reported Meds & Prescriptions Reported Meds & Active Scripts Active Seroquel (Quetiapine Fumarate) 100 Mg Tab 100 Mg PO HS Chlordiazepoxide (Chlordiazepoxide HCl) 25 Mg Cap 25 Mg PO DIRECTED PRN Ativan (Lorazepam) 1 Mg Tab 1 Mg PO Q6H PRN Multiple Vitamin 1 Tab 1 Tab PO DAILY Folate (Folic Acid) 1 Mg Tab 1 Mg PO DAILY Thiamine (Thiamine HCl) 100 Mg Tab 100 Mg PO DAILY Sertraline (Sertraline HCl) 25 Mg Tab 50 Mg PO DAILY Protonix (Pantoprazole Sodium) 40 Mg Tab 40 Mg PO DAILY Levothyroxine (Levothyroxine Sodium) 88 Mcg Tab 88 Mcg PO DAILY Glucophage (Metformin HCl) 500 Mg Tab 500 Mg PO BIDPC With meals Quetiapine (Quetiapine Fumarate) 100 Mg Tab 100 Mg PO HS Diovan (Valsartan) 80 Mg Tab 80 Mg PO BID Reported Amlodipine (Amlodipine Besylate) 5 Mg Tab 5 Mg PO DAILY Aspirin 81 Mg Tabdr 81 Mg PO DAILY Review of Systems Constitutional: COMPLAINS OF: Diaphoretic episodes (in context of withdrawal) Endocrine: DENIES: Heat/cold intolerance, Polydipsia, Polyuria, Polyphagia Eyes: DENIES: Blurred vision, Diplopia, Eye inflammation, Eye pain, Vision loss , Photosensitivity, Double Vision Ears, nose, mouth, throat: DENIES: Tinnitus, Hearing loss, Vertigo, Nasal discharge, Oral lesions, Throat pain, Hoarseness, Ear Pain, Running Nose, Epistaxis, Sinus Pain, Toothache, Odynophagia Respiratory: DENIES: Apneas, Cough, Snoring, Wheezing, Hemoptysis, Sputum production, Shortness of breath Gastrointestinal: COMPLAINS OF: Diarrhea (in context of withdrawal) Genitourinary: DENIES: Sexual dysfunction, Urinary frequency, Urinary incontinence, Urgency, Hematuria, Dysuria, Nocturia, Penile Discharge, Testicular Pain, Testicular Swelling Musculoskeletal: DENIES: Joint pain, Muscle aches, Stiffness, Joint Swelling, Back pain, Neck pain Integumentary: DENIES: Abnormal pigmentation, Nail changes, Pruritus, Rash Immunologic/allergic: DENIES: Eczema, Urticaria Neurologic: DENIES: Abnormal gait, Headache, Localized weakness, Paresthesias, Seizures, Speech Problems, Tremor, Poor Balance Psychiatric: COMPLAINS OF: Depression Exam Alert: Yes Cullen: Person (ox4) Mood: Anxious, Calm Affect: Appropriate Speech: Clear, Logical Eye Contact: Normal, Other Memory Intact: Comment (no impairment) Hallucinations: Other (negative) Delusions: No Suicidal: Ideation (denies) Homicidal: Ideation (deneis any) Insight/Judgement fair. fair [facility] Medical Decision Making Medical Record Reviewed: Yes Assessment/Plan 60 year old male with hx of alcohol dependence and depression who is under a BA after he verbalized suicidal ideation in context of alcohol intoxication. At this time he is clinically sober and does not meet BA criteria. He has plans on contacting his insurance com to arrange for admission to [facility] or to [facility] as part of [facility] plans. I have spoken with his and I have recommended a [facility] tif he in fact does not follow thru with current discharge plans. Orders Complete Blood Count With Diff (06/28/16 20:08) Comprehensive Metabolic Panel (06/28/16 20:08) Psych Screen (06/28/16 20:08) Drug Screen, Random Urine (06/28/16 20:08) Alcohol (Ethanol) (06/28/16 20:08) Salicylates (Aspirin) (06/28/16 20:08) Tylenol (Acetaminophen) (06/28/16 20:08) Ct Brain W/O Iv Contrast(Rout) (06/28/16 20:40) Potassium Chloride Eff (K-Lyte Cl Eff) (06/28/16 21:30) Sodium Chlor 0.9% 1000 Ml Inj (Ns 1000 M (06/28/16 21:29) Alcohol Withdrawal Asmt-Ciwa ONCE (06/29/16 00:10) Flumazenil Inj (Romazicon Inj) (06/29/16 00:15) Lorazepam (Ativan) (06/29/16 00:15) Lorazepam Inj (Ativan Inj) (06/29/16 00:15) Lorazepam (Ativan) (06/29/16 00:15) Lorazepam Inj (Ativan Inj) (06/29/16 00:15) Lorazepam Inj (Ativan Inj) (06/29/16 00:15) Lorazepam Inj (Ativan Inj) (06/29/16 00:15) Diet Diabetic (06/29/16 Breakfast) Results Vital Signs Date Time Temp Pulse Resp B/P Pulse Ox O2 Delivery O2 Flow Rate FiO2 06/29/16 07:29 100 06/29/16 07:29 97.8 102 17 150/91 99 Room Air 06/29/16 02:46 125 18 145/89 95 Room Air 06/29/16 00:11 98.0 124 18 165/95 95 Room Air 06/29/16 00:11 123 18 06/28/16 21:30 122 18 140/90 96 Room Air 06/28/16 20:35 98.1 116 16 180/107 96 Room Air 06/28/16 20:10 97.9 98 10 179/100 94 Laboratory Tests Test 06/28/16 20:26 White Blood Count 7.1 Red Blood Count 4.50 Hemoglobin 14.1 Hematocrit 40.7 Mean Corpuscular Volume 90.3 Mean Corpuscular Hemoglobin 31.2 Mean Corpuscular Hemoglobin 34.5 Concent Red Cell Distribution Width 14.3 Platelet Count 136 Mean Platelet Volume 7.9 Neutrophils (%) (Auto) 61.2 Lymphocytes (%) (Auto) 32.1 Monocytes (%) (Auto) 4.8 Eosinophils (%) (Auto) 1.2 Basophils (%) (Auto) 0.7 Neutrophils # (Auto) 4.3 Lymphocytes # (Auto) 2.3 Monocytes # (Auto) 0.3 Eosinophils # (Auto) 0.1 Basophils # (Auto) 0.1 CBC Comment DIFF FINAL Differential Comment Sodium Level 141 Potassium Level 3.1 Chloride Level 100 Carbon Dioxide Level 29.0 Anion Gap 12 Blood Urea Nitrogen 10 Creatinine 1.02 Estimat Glomerular Filtration 75 Rate Random Glucose 77 Calcium Level 8.3 Total Bilirubin 0.9 Aspartate Amino Transf 115 (AST/SGOT) Alanine Aminotransferase 53 (ALT/SGPT) Alkaline Phosphatase 131 Total Protein 7.8 Albumin 3.7 Salicylates Level LESS THAN 1.7 Urine Opiates Screen NEG Acetaminophen Level LESS THAN 2.0 Urine Barbiturates Screen NEG Urine Amphetamines Screen NEG Urine Benzodiazepines Screen NEG Urine Cocaine Screen NEG Urine Cannabinoids Screen NEG Ethyl Alcohol Level 363 Diagnosis Primary Impression: Acute alcohol intoxication Additional Impressions: Substance induced mood disorder Hypokalemia Psychiatrically Cleared: Yes Med/ Other Pt Specific Info: No Change to Meds Disposition: 01 DISCHARGE HOME Condition: Stable Problem Qualifiers Primary Impression: Acute alcohol intoxication Qualified Code: F10.120 - Acute alcohol intoxication, uncomplicated Magi Dawn [facility] Jun 29, 2016 10:25
[2016-06-29 11:00] VITALS: BP 144/86; TEMP 97.8
== END 2016-06-29 11:00 | disposition home or self-care (01) ==
LOC: NEPE 20:02 → NEPD 06-29 11:00
DX: F39 Unspecified mood [affective] disorder (principal); E87.6 Hypokalemia; F10.229 Alcohol dependence with intoxication, unspecified; S00.11XA Contusion of right eyelid and periocular area, initial encounter; S00.81XA Abrasion of other part of head, initial encounter; R00.0 Tachycardia, unspecified; R45.851 Suicidal ideations; H11.31 Conjunctival hemorrhage, right eye; X58.XXXA Exposure to other specified factors, initial encounter; F41.8 Other specified anxiety disorders; I10 Essential (primary) hypertension; J44.9 Chronic obstructive pulmonary disease, unspecified; E11.9 Type 2 diabetes mellitus without complications; Z79.4 Long term (current) use of insulin; E78.5 Hyperlipidemia, unspecified; Y90.8 Blood alcohol level of 240 mg/100 ml or more; Z86.73 Personal history of transient ischemic attack (TIA), and cerebral infarction without residual deficits
CPT/HCPCS: 70450; 80053; 80307; 85025; 96374; 96376; 99285; J2060; J7030

== ENCOUNTER 2016-07-11 03:05 | Emergency (ER) | payer OTHER ==
[~2016-07-11] VITALS: Ht 177.8 cm; Wt 108.0 kg
[2016-07-11 03:12] VITALS: BP 162/55; PULSE 97; RESP 17; TEMP 98.4; O2SAT 96
[2016-07-11 03:53] LABS: AUTOMATED NEUTROPHIL # 2.7 TH/MM3 (1.8-7.7); BASOPHIL # 0.1 TH/MM3 (0-0.2); BASOPHIL % 1.7 % (0.0-2.0); EOSINOPHIL # 0.1 TH/MM3 (0-0.4); EOSINOPHIL % 1.5 % (0.0-4.0); HEMATOCRIT 42.4 % (39.0-51.0); HEMO FLAGS DIFF FINAL; LYMPH % 34.9 % (9.0-44.0); LYMPHOCYTE # 1.8 TH/MM3 (1.0-4.8); MEAN CORPUSCULAR HEMOGLOBIN 30.3 PG (27.0-34.0); MONO % 8.6 % (0.0-8.0); NEUT % 53.3 % (16.0-70.0); PLATELET COUNT 194 TH/MM3 (150-450); RED CELL DISTRIBUTION WIDTH 16.3 % (11.6-17.2); WHITE BLOOD COUNT 5.1 TH/MM3 (4.0-11.0)
[2016-07-11 03:59] LABS: BACTERIA, URINE OCC /hpf; BLOOD, URINE MOD (NEG); GLUCOSE,URINE NEG (NEG); HYALINE CAST, URINE 44 /lpf (RARE); KETONE, URINE 80 mg/dL (NEG); MUCUS URINE FEW /lpf (OCC); NITRITE,URINE NEG (NEG); RENAL EPITHELIAL CELLS 1 /hpf; SQUAMOUS EPITHELIAL CELL URINE <1 /hpf (0-5); URINE COLOR YELLOW (YELLW/STRAW)
[2016-07-11 04:00] LABS: COMMENT (UR) CULT NOT INDICATED; CULTURE IF INDICATED CULT NOT INDICATED
--- NOTE | 2016-07-11 04:02 | RADRPT ---
EXAM DATE/TIME: 07/11/2016 03:48 [facility] COMPARISON: CT BRAIN W/O CONTRAST, June 28, 2016, 20:58. INDICATIONS : Trauma. Fall. RADIATION DOSE: 39.10 CTDIvol (mGy) MEDICAL HISTORY : Cerebrovascular disease. Cardiovascular disease Hypertension.Diabetes SURGICAL HISTORY : None. ENCOUNTER: Initial ACUITY: 1 day PAIN SCALE: 0/10 LOCATION: cranial TECHNIQUE: Multiple contiguous axial images were obtained of the head. Using automated exposure control and adj ustment of the mA and/or kV according to patient size, radiation dose was kept as low as reasonably a chievable to obtain optimal diagnostic quality images. FINDINGS: CEREBRUM: Atrophy. The ventricles are normal for age. No evidence of midline shift, mass lesion, hemorrhage or acute infarction. No extra-axial fluid collections are seen. POSTERIOR FOSSA: The cerebellum and brainstem are intact. The 4th ventricle is midline. The cerebellopontine angle i s unremarkable. EXTRACRANIAL: The visualized portion of the orbits is intact. SKULL: The calvaria is intact. No evidence of skull fracture. CONCLUSION: No acute intracranial abnormality. Luis Gardiner Jr., MD on July 11, 2016 at 4:00 Board Certified Radiologist. This report was verified electronically.
--- NOTE | 2016-07-11 04:05 | RADRPT ---
EXAM DATE/TIME: 07/11/2016 03:48 [facility] COMPARISON: CT CERVICAL SPINE W/O CONTRAST, June 25, 2016, 18:44. INDICATIONS : Trauma. Fall. RADIATION DOSE: 21.10 CTDIvol (mGy) MEDICAL HISTORY : Cerebrovascular disease. Cardiovascular disease Hypertension.Diabetes SURGICAL HISTORY : None. ENCOUNTER: Initial ACUITY: 1 day PAIN SCALE: 0/10 LOCATION: neck TECHNIQUE: Volumetric scanning of the cervical spine was performed. Multiplanar reconstructions in the sagittal, coronal and oblique axial planes were performed. Using automated exposure control and adjustment o f the mA and/or kV according to patient size, radiation dose was kept as low as reasonably achievable to obtain optimal diagnostic quality images. FINDINGS: VERTEBRAE: Normal vertebral body height. ALIGNMENT: No evidence of subluxation. C2-C3: The bony spinal canal is normal in size. No evidence of disc bulge or herniation. The neural forami na are bilaterally patent. C3-C4: The bony spinal canal is normal in size. No evidence of disc bulge or herniation. The neural forami na are bilaterally patent. C4-C5: A broad-based disc osteophyte complex without central canal stenosis. Bony uncovertebral hypertrophy generating bilateral neural foraminal narrowing. C5-C6: A broad-based disc osteophyte complex without central canal stenosis. Bony uncovertebral hypertrophy generating bilateral neural foraminal narrowing. C6-C7: A broad-based disc osteophyte complex without central canal stenosis. Bony uncovertebral hypertrophy generating bilateral neural foraminal narrowing. C7-T1: The bony spinal canal is normal in size. No evidence of disc bulge or herniation. The neural forami na are bilaterally patent. CONCLUSION: 1. No acute abnormality. 2. Degenerative changes. Luis Gardiner Jr., MD on July 11, 2016 at 4:01 Board Certified Radiologist. This report was verified electronically.
[2016-07-11 04:09] LABS: AMPHETAMINE, URINE NEG (NEG); BARBITURATES, URINE NEG (NEG); COCAINE, URINE NEG (NEG)
[2016-07-11 04:11] LABS: ALT (GPT) 89 U/L (12-78); ANION GAP 20 MEQ/L (5-15); AST (GOT) 195 U/L (15-37); BICARBONATE 21.1 MEQ/L (21.0-32.0); BLOOD UREA NITROGEN 16 MG/DL (7-18); CHLORIDE 98 MEQ/L (98-107); GLOMERULAR FILTRATION RATE 89 ML/MIN (>89); POTASSIUM 3.5 MEQ/L (3.5-5.1); SODIUM (NA) 139 MEQ/L (136-145)
[2016-07-11] MEDS ORDERED: THIAMINE INJ 100 MG in SODIUM CHLORIDE 0.9% INJ 100 ML IV ONE (04:15)
[2016-07-11] MEDS ORDERED: SODIUM CHLOR 0.9% 1000 ML INJ 1,000 ML IV ONE (04:15)
--- NOTE | 2016-07-11 04:15 | PD ---
HPI Chief Complaint: Psychiatric Symptoms Time Seen by Provider: 03:30 Travel History International Travel<30 days: No Contact w/Intl Traveler<30days: No Traveled to known affect area: No History of Present Illness HPI The patient is a 60 year old male who presents to the [facility] emergency department with a history of being Barron acted prior to arrival. According to the Barron act the patient reported suicidal ideations and a sensation of being tired of living. He reports that he is currently going through a divorce. He reports that he's been for the last 17 years. He reports that he has a history of depression, however his sertraline has not been helping. He last saw a psychiatrist, Dr. Alaniz approximate month ago. He reports that over the last 2 days he has been experiencing suicidal ideations. He denies ever attempting suicide previously. The patient reports that he has been drinking a quart of vodka daily. Incidentally, the patient also reports that related to the alcohol intoxication he did strike his head on his bed board due to losing his balance. He denies loss of consciousness. He does report having a headache. He reports having some posterior neck discomfort. He denies having any numbness or tingling to his extremities. He denies having any weakness of the extremities. The patient denies any recent fevers, cough, congestion, neck pain, chest pain, shortness of breath, abdominal pain, vomiting, diarrhea, or urinary symptoms. [facility] Past Medical History Narrative Medical The patient's past medical history is significant for hypertension, anxiety and depression, history of insomnia, history of COPD, history of cerebrovascular accident in 2008, history of diabetes mellitus, history of acid reflux, headaches, history of alcohol abuse, history of sleep apnea, history of hypothyroid disorder. Blood Disorders: No Anxiety: Yes Depression: Yes Heart Rhythm Problems: No Cancer: No Cardiovascular Problems: Yes (HTN) High Cholesterol: No Chest Pain: No Congestive Heart Failure: No COPD: Yes Cerebrovascular Accident: Yes (2008) Diabetes: Yes Patient Takes Glucophage: No Diminished Hearing: No Endocrine: No Gastrointestinal Disorders: Yes GERD: Yes Genitourinary: No Headaches: Yes Hepatitis: No Hiatal Hernia: No Hypertension: Yes Immune Disorder: No Implanted Vascular Access Dvce: Yes Insomnia: Yes Musculoskeletal: No Neurologic: Yes Psychiatric: Yes (ETOH ) Reproductive: No Respiratory: Yes Migraines: No Myocardial Infarction: No Seizures: Yes Sleep Apnea: Yes (CPAP) Thyroid Disease: Yes Ulcer: No Tetanus Vaccination: Unknown Influenza Vaccination: No Past Surgical History Narrative Surgical The patient's past surgical history is significant for an inguinal hernia repair , tonsillectomy, sinus surgery. Surgical History: No Previous Surgery Abdominal Surgery: Yes (INGUINAL HERNIA REPAIR) AICD: No Appendectomy: No Arteriovenous Shunt: No Cholecystectomy: No Insulin Pump: No Joint Replacement: No Oral Surgery: Yes (toncilectomy) Pacemaker: No Tonsillectomy: Yes Other Surgery: Yes (SINUS) Social History Alcohol Use: Yes (DRINKS 1 BOTTLE OF VODKA DAILY) Tobacco Use: No Substance Use: No Allergies-Medications (Allergen,Severity, Reaction): Coded Allergies: Erythromycin (Verified Allergy, Severe, Hives, 06/23/16) Penicillin (Verified Allergy, Severe, Hives, 06/23/16) Reported Meds & Prescriptions Reported Meds & Active Scripts Active Seroquel (Quetiapine Fumarate) 100 Mg Tab 100 Mg PO HS Chlordiazepoxide (Chlordiazepoxide HCl) 25 Mg Cap 25 Mg PO DIRECTED PRN Ativan (Lorazepam) 1 Mg Tab 1 Mg PO Q6H PRN Multiple Vitamin 1 Tab 1 Tab PO DAILY Folate (Folic Acid) 1 Mg Tab 1 Mg PO DAILY Thiamine (Thiamine HCl) 100 Mg Tab 100 Mg PO DAILY Sertraline (Sertraline HCl) 25 Mg Tab 50 Mg PO DAILY Protonix (Pantoprazole Sodium) 40 Mg Tab 40 Mg PO DAILY Levothyroxine (Levothyroxine Sodium) 88 Mcg Tab 88 Mcg PO DAILY Glucophage (Metformin HCl) 500 Mg Tab 500 Mg PO BIDPC With meals Quetiapine (Quetiapine Fumarate) 100 Mg Tab 100 Mg PO HS Diovan (Valsartan) 80 Mg Tab 80 Mg PO BID Reported Amlodipine (Amlodipine Besylate) 5 Mg Tab 5 Mg PO DAILY Aspirin 81 Mg Tabdr 81 Mg PO DAILY Review of Systems Except as stated in HPI: all other systems reviewed are Neg General / Constitutional: No: Fever Eyes: No: Visual changes HENT: No: Headaches Cardiovascular: No: Chest Pain or Discomfort Respiratory: No: Shortness of Breath Gastrointestinal: No: Vomiting, Abdominal Pain Genitourinary: No: Dysuria Musculoskeletal: No: Pain Skin: No Rash Neurologic: Positive: Headache, Slurred Speech, No: Weakness, Focal Abnormalities, Change in Mentation, Sensory Disturbance Psychiatric: Positive: Depression, Suicidal Ideations, Mood Disorder, Substance Abuse, No: Anxiety, Homicidal Ideation Endocrine: No: Polydipsia Hematologic/Lymphatic: No: Easy Bruising Physical Exam Narrative General: The patient is a well-developed well-nourished male in no acute distress. Head and Neck exam: Head is normocephalic atraumatic. Eyes: EOMI, pupils are equal round and reactive to light. Nose: Midline septum with pink mucous membranes Mouth: Dentition unremarkable. Moist mucus membranes. Posterior oropharynx is not erythematous. No tonsillar hypertrophy. Uvula midline. Airway patent. Neck: No palpable lymphadenopathy. No nuchal rigidity. No thyromegaly. The patient reports paraspinal cervical muscle tenderness on palpation bilaterally. No spinous process tenderness to palpation. No step-off or crepitus. Cardiovascular: Regular rate and rhythm without murmurs, gallops, or rubs. Lungs: Clear to auscultation bilaterally. No wheezes, rhonchi, or rales. Abdomen: Soft, without tenderness to palpation in all 4 quadrants of the abdomen. No guarding, rebound, or rigidity. Normal bowel sounds are audible. No tenderness on palpation of McBurney's point. Extremities: No clubbing, cyanosis, or edema. 2+ pulses in all 4 extremities. No extremity deformity, crepitus or step-off. The patient has full range of motion without pain of his extremities. Back: No spinous process tenderness to palpation. No costovertebral angle tenderness to palpation. Neurologic Exam: Cranial nerves 2-12 were intact on exam. Strength is 5/5 in all 4 extremities. No sensory deficits noted. The patient has slightly slurred speech with an odor of alcohol about him. He is oriented to person, place, time, and situation. Skin Exam: No rash noted. Data Data Last Documented VS Vital Signs Date Time Temp Pulse Resp B/P Pulse Ox O2 Delivery O2 Flow Rate FiO2 07/11/16 03:12 98.4 97 17 162/55 96 Orders Complete Blood Count With Diff (07/11/16 03:34) Comprehensive Metabolic Panel (07/11/16 03:34) Thyroid Stimulating Hormone (07/11/16 03:34) Urinalysis - C+S If Indicated (07/11/16 03:34) Psych Screen (07/11/16 03:34) Drug Screen, Random Urine (07/11/16 03:34) Alcohol (Ethanol) (07/11/16 03:34) Salicylates (Aspirin) (07/11/16 03:34) Tylenol (Acetaminophen) (07/11/16 03:34) Ct Brain W/O Iv Contrast(Rout) (07/11/16 ) Ct Cerv Spine W/O Contrast (07/11/16 ) Sodium Chlor 0.9% 1000 Ml Inj (Ns 1000 M (07/11/16 04:15) Thiamine Inj (Thiamine Inj) (07/11/16 04:15) Blood Glucose (07/11/16 04:29) Labs Laboratory Tests Test 07/11/16 07/11/16 03:30 03:34 White Blood Count 5.1 TH/MM3 Red Blood Count 4.60 MIL/MM3 Hemoglobin 14.0 GM/DL Hematocrit 42.4 % Mean Corpuscular Volume 92.0 FL Mean Corpuscular Hemoglobin 30.3 PG Mean Corpuscular Hemoglobin 33.0 % Concent Red Cell Distribution Width 16.3 % Platelet Count 194 TH/MM3 Mean Platelet Volume 7.5 FL Neutrophils (%) (Auto) 53.3 % Lymphocytes (%) (Auto) 34.9 % Monocytes (%) (Auto) 8.6 % Eosinophils (%) (Auto) 1.5 % Basophils (%) (Auto) 1.7 % Neutrophils # (Auto) 2.7 TH/MM3 Lymphocytes # (Auto) 1.8 TH/MM3 Monocytes # (Auto) 0.4 TH/MM3 Eosinophils # (Auto) 0.1 TH/MM3 Basophils # (Auto) 0.1 TH/MM3 CBC Comment DIFF FINAL Differential Comment Sodium Level 139 MEQ/L Potassium Level 3.5 MEQ/L Chloride Level 98 MEQ/L Carbon Dioxide Level 21.1 MEQ/L Anion Gap 20 MEQ/L Blood Urea Nitrogen 16 MG/DL Creatinine 0.88 MG/DL Estimat Glomerular Filtration 89 ML/MIN Rate Random Glucose 58 MG/DL Calcium Level 8.5 MG/DL Total Bilirubin 1.0 MG/DL Aspartate Amino Transf 195 U/L (AST/SGOT) Alanine Aminotransferase 89 U/L (ALT/SGPT) Alkaline Phosphatase 110 U/L Total Protein 8.5 GM/DL Albumin 4.4 GM/DL Thyroid Stimulating Hormone 3.780 uIU/ML 3rd Gen Salicylates Level LESS THAN 1.7 MG/DL Acetaminophen Level LESS THAN 2.0 MCG/ML Ethyl Alcohol Level 368 MG/DL Urine Color YELLOW Urine Turbidity HAZY Urine pH 6.0 Urine Specific [place] 1.022 Urine Protein 300 mg/dL Urine Glucose (UA) NEG mg/dL Urine Ketones 80 mg/dL Urine Occult Blood MOD Urine Nitrite NEG Urine Bilirubin NEG Urine Urobilinogen LESS THAN 2.0 MG/DL Urine Leukocyte Esterase TRACE Urine RBC 5 /hpf Urine WBC 7 /hpf Urine Squamous Epithelial <1 /hpf Cells Urine Renal Epithelial Cells 1 /hpf Urine Bacteria OCC /hpf Urine Hyaline Casts 44 /lpf Urine Mucus FEW /lpf Microscopic Urinalysis Comment CULT NOT INDICATED Urine Opiates Screen NEG Urine Barbiturates Screen NEG Urine Amphetamines Screen NEG Urine Benzodiazepines Screen POS Urine Cocaine Screen NEG Urine Cannabinoids Screen NEG MDM Medical Decision Making Medical Screen Exam Complete: Yes Emergency Medical Condition: Yes Medical Record Reviewed: Yes Interpretation(s) Last Impressions Head CT 07/11/16 0000 Signed Impressions: Service Date/Time: Monday, July 11, 2016 03:48 - CONCLUSION: No acute intracranial abnormality. Luis Gardiner Jr., MD Cervical Spine CT 07/11/16 0000 Signed Impressions: Service Date/Time: Monday, July 11, 2016 03:48 - CONCLUSION: 1. No acute abnormality. 2. Degenerative changes. Luis Gardiner Jr., MD Differential Diagnosis Depression with suicidal ideations, versus substance induced mood disorder Narrative Course During the course of the patients emergency department visit, the patients history, examination, and differential diagnosis were reviewed with the patient. The patient had IV access obtained and blood work sent for analysis. A psychiatric screen was ordered. The patients laboratory studies were reviewed and remarkable for a CBC that shows a white count of 5.1, hemoglobin 14, platelets 194 with 8.6 monocytes, urine drug screen is positive for benzodiazepines, salicylates less than 1.7, urinalysis shows 300 protein 5 RBCs, 80 ketones, moderate occult blood 7 WBCs, occasional bacteria, culture not indicated. The patient's CMP shows an anion gap of 20, glucose 58, AST 195, ALT 89, total protein 8.5, TSH 3.78. The patient's Accu-Chek was done and noted to be 65. The patient continues to be awake and alert. The patient was provided juice, crackers, and peanut butter to increase his blood sugar. Alcohol level is 368, acetaminophen less than 2, salicylate less than 1.7. The patient was given normal saline 1 L IV fluid bolus, thiamine 100 mg IV. Radiology studies were reviewed and remarkable for a CT scan of the brain shows no acute abnormality. CT scan of the C-spine shows degenerative changes, no other acute abnormality. The patient has been medically cleared for evaluation by the psychiatric screener under a Barron act. Diagnosis Primary Impression: Depression Qualified Code: F32.9 - Depression, unspecified depression type Additional Impressions: Suicidal ideations Alcohol abuse Opal Juares MD July 11, 2016 04:15
[2016-07-11 04:21] LABS: ALKALINE PHOSPHATASE 110 U/L (45-117)
[2016-07-11 04:24] LABS: ACETAMINOPHEN LESS THAN 2.0 MCG/ML (10.0-30.0)
[2016-07-11 06:22] VITALS: BP 167/62; PULSE 95; RESP 18; O2SAT 96
[2016-07-11] MEDS ORDERED: LORazepam 2 MG TAB PO PRN (06:30)
[2016-07-11] MEDS ORDERED: LORazepam 1 MG TAB PO PRN (06:30)
[2016-07-11] MEDS ORDERED: LORazepam 2 MG/ML VIAL IV PUSH PRN ×4 (06:30)
[2016-07-11] MEDS ORDERED: FLUMAZENIL 0.5 MG/5 ML VIAL IV PUSH PRN (06:30)
[2016-07-11 07:58] VITALS: BP 161/70; PULSE 88; RESP 18; O2SAT 97
[2016-07-11] MEDS ORDERED: ONDANSETRON HCL 4 MG/2 ML VIAL ONE (11:21)
--- NOTE | 2016-07-11 11:48 | PD ---
History of Present Illness Chief Complaint: Psychiatric Symptoms Time Seen by Provider: 11:40 Travel History International Travel<30 Days: No Contact w/Intl Traveler<30days: No Known affected area: No Legal Status Legal Status: Barron Act Barron Act Signed By: Paul Baldwin History of Present Illness: History of Present Illness HPI The patient is a 60 year old male with history of alcohol dependence and depression who presents to [facility] ED under a Barron initiated by RUBY. According to the Barron act the patient ' Advised he is tired of living. Has been drinking vodka and has not eaten in 3 days. ED documentation is reviewed. EMR is reviewed. the patient has had several visits to ED for alcohol intoxication. During his last visit he had stated he was thinking of entering a detox center Patient is seen in main ed.At this time he is clinically sober. His speech is clear and logical. No tremors are noted. There is no psychosis and no kenny. Patient reports he has been feeling more depressed lately. He saw his psychiatrist Dr. Alaniz last month and will see him again after discharge. At this time he does not endorse suicidal or homicidal ideation, intent or plan. PFSH Past Medical History Blood Disorders: No Anxiety: Yes Depression: Yes Heart Rhythm Problems: No Cancer: No Cardiovascular Problems: Yes (HTN) High Cholesterol: No Chest Pain: No Congestive Heart Failure: No COPD: Yes Cerebrovascular Accident: Yes (2008) Diabetes: Yes Patient Takes Glucophage: No Diminished Hearing: No Endocrine: No Gastrointestinal Disorders: Yes GERD: Yes Genitourinary: No Headaches: Yes Hepatitis: No Hiatal Hernia: No Hypertension: Yes Immune Disorder: No Implanted Vascular Access Dvce: Yes Insomnia: Yes Musculoskeletal: No Neurologic: Yes Psychiatric: Yes (ETOH ) Reproductive: No Respiratory: Yes Migraines: No Myocardial Infarction: No Seizures: Yes Sleep Apnea: Yes (CPAP) Thyroid Disease: Yes Ulcer: No Tetanus Vaccination: Unknown Influenza Vaccination: No Past Surgical History Surgical History: No Previous Surgery Abdominal Surgery: Yes (INGUINAL HERNIA REPAIR) AICD: No Appendectomy: No Arteriovenous Shunt: No Cholecystectomy: No Insulin Pump: No Joint Replacement: No Oral Surgery: Yes (toncilectomy) Pacemaker: No Tonsillectomy: Yes Other Surgery: Yes (SINUS) Psychiatric History Psychiatric History Hx Psychiatric Treatment: Patient has had multiple inpatient hospitalizations at [facility]. Patient has been seeing Dr. Alaniz for outpatient services. Patient has also been to [facility] for Detox and [facility] for Detox. Dr. Alaniz as outpatietn . Sees him every 6 weeks. History of Inpatient Treatment: Yes Guns or firearms in home: No Social History male. has filed for divorce. 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 Hx Alcohol Use: Yes (DRINKS 1 BOTTLE OF VODKA DAILY) Hx Tobacco Use: No Hx Substance Use: No Substance Use Type: Alcohol Other Substances Used: QT. OF VODKA TODAY Hx of Substance Use Treatment: Yes Allergies-Medications (Allergen,Severity, Reaction): Coded Allergies: Erythromycin (Verified Allergy, Severe, Hives, 06/23/16) Penicillin (Verified Allergy, Severe, Hives, 06/23/16) Reported Meds & Prescriptions Reported Meds & Active Scripts Active Seroquel (Quetiapine Fumarate) 100 Mg Tab 100 Mg PO HS Chlordiazepoxide (Chlordiazepoxide HCl) 25 Mg Cap 25 Mg PO DIRECTED PRN Ativan (Lorazepam) 1 Mg Tab 1 Mg PO Q6H PRN Multiple Vitamin 1 Tab 1 Tab PO DAILY Folate (Folic Acid) 1 Mg Tab 1 Mg PO DAILY Thiamine (Thiamine HCl) 100 Mg Tab 100 Mg PO DAILY Sertraline (Sertraline HCl) 25 Mg Tab 50 Mg PO DAILY Protonix (Pantoprazole Sodium) 40 Mg Tab 40 Mg PO DAILY Levothyroxine (Levothyroxine Sodium) 88 Mcg Tab 88 Mcg PO DAILY Glucophage (Metformin HCl) 500 Mg Tab 500 Mg PO BIDPC With meals Quetiapine (Quetiapine Fumarate) 100 Mg Tab 100 Mg PO HS Diovan (Valsartan) 80 Mg Tab 80 Mg PO BID Reported Amlodipine (Amlodipine Besylate) 5 Mg Tab 5 Mg PO DAILY Aspirin 81 Mg Tabdr 81 Mg PO DAILY Review of Systems Constitutional: DENIES: Diaphoretic episodes, Fatigue, Fever, Weight gain, Weight loss, Chills, Dizziness, Change in appetite, Night Sweats Endocrine: DENIES: Heat/cold intolerance, Polydipsia, Polyuria, Polyphagia Eyes: DENIES: Blurred vision, Diplopia, Eye inflammation, Eye pain, Vision loss , Photosensitivity, Double Vision Ears, nose, mouth, throat: DENIES: Tinnitus, Hearing loss, Vertigo, Nasal discharge, Oral lesions, Throat pain, Hoarseness, Ear Pain, Running Nose, Epistaxis, Sinus Pain, Toothache, Odynophagia Respiratory: DENIES: Apneas, Cough, Snoring, Wheezing, Hemoptysis, Sputum production, Shortness of breath Cardiovascular: DENIES: Chest pain, Palpitations, Syncope, Dyspnea on Exertion , PND, Lower Extremity Edema, Orthopnea, Claudication Gastrointestinal: COMPLAINS OF: Nausea Genitourinary: DENIES: Sexual dysfunction, Urinary frequency, Urinary incontinence, Urgency, Hematuria, Dysuria, Nocturia, Penile Discharge, Testicular Pain, Testicular Swelling Musculoskeletal: DENIES: Joint pain, Muscle aches, Stiffness, Joint Swelling, Back pain, Neck pain Integumentary: DENIES: Abnormal pigmentation, Nail changes, Pruritus, Rash Hematologic/lymphatic: DENIES: Bruising, Lymphadenopathy Immunologic/allergic: DENIES: Eczema, Urticaria Neurologic: DENIES: Abnormal gait, Headache, Localized weakness, Paresthesias, Seizures, Speech Problems, Tremor, Poor Balance Psychiatric: COMPLAINS OF: Depression Exam Alert: Yes [place]: Person (ox4) Mood: Calm Affect: Appropriate Speech: Clear, Logical Eye Contact: Normal Memory Intact: Comment (No impairmetn) Hallucinations: Other (negative) Suicidal: Ideation (denies) Homicidal: Ideation (negative) Insight/Judgement Fair. Not impaired. MDM Medical Decision Making Medical Record Reviewed: Yes Assessment/Plan 60 year old male with history of alcohol dependence as well as depression who presents intoxicated and reporting that he is tired of living. patient at this time is clinically sober and is future oriented. he is at contemplative stage and is talking of signing himself into detox. He has previously been sober x 5 years and has been involved in AA. He is provided psychoeducation and support. Elizabeth MANUEL. Does not meet criteria att hsi time. Follow up with Dr. Alaniz. Orders Complete Blood Count With Diff (07/11/16 03:34) Comprehensive Metabolic Panel (07/11/16 03:34) Thyroid Stimulating Hormone (07/11/16 03:34) Urinalysis - C+S If Indicated (07/11/16 03:34) Psych Screen (07/11/16 03:34) Drug Screen, Random Urine (07/11/16 03:34) Alcohol (Ethanol) (07/11/16 03:34) Salicylates (Aspirin) (07/11/16 03:34) Tylenol (Acetaminophen) (07/11/16 03:34) Ct Brain W/O Iv Contrast(Rout) (07/11/16 ) Ct Cerv Spine W/O Contrast (07/11/16 ) Sodium Chlor 0.9% 1000 Ml Inj (Ns 1000 M (07/11/16 04:15) Thiamine Inj (Thiamine Inj) (07/11/16 04:15) Blood Glucose (07/11/16 04:29) Alcohol Withdrawal Asmt-Ciwa ONCE (07/11/16 06:18) Flumazenil Inj (Romazicon Inj) (07/11/16 06:30) Lorazepam (Ativan) (07/11/16 06:30) Lorazepam Inj (Ativan Inj) (07/11/16 06:30) Lorazepam (Ativan) (07/11/16 06:30) Lorazepam Inj (Ativan Inj) (07/11/16 06:30) Lorazepam Inj (Ativan Inj) (07/11/16 06:30) Lorazepam Inj (Ativan Inj) (07/11/16 06:30) Ondansetron Inj (Zofran Inj) (07/11/16 11:21) Results Vital Signs Date Time Temp Pulse Resp B/P Pulse Ox O2 Delivery O2 Flow Rate FiO2 07/11/16 07:58 88 18 161/70 97 07/11/16 06:22 95 18 167/62 96 Room Air 07/11/16 03:12 98.4 97 17 162/55 96 Laboratory Tests Test 07/11/16 07/11/16 03:30 03:34 White Blood Count 5.1 Red Blood Count 4.60 Hemoglobin 14.0 Hematocrit 42.4 Mean Corpuscular Volume 92.0 Mean Corpuscular Hemoglobin 30.3 Mean Corpuscular Hemoglobin 33.0 Concent Red Cell Distribution Width 16.3 Platelet Count 194 Mean Platelet Volume 7.5 Neutrophils (%) (Auto) 53.3 Lymphocytes (%) (Auto) 34.9 Monocytes (%) (Auto) 8.6 Eosinophils (%) (Auto) 1.5 Basophils (%) (Auto) 1.7 Neutrophils # (Auto) 2.7 Lymphocytes # (Auto) 1.8 Monocytes # (Auto) 0.4 Eosinophils # (Auto) 0.1 Basophils # (Auto) 0.1 CBC Comment DIFF FINAL Differential Comment Sodium Level 139 Potassium Level 3.5 Chloride Level 98 Carbon Dioxide Level 21.1 Anion Gap 20 Blood Urea Nitrogen 16 Creatinine 0.88 Estimat Glomerular Filtration 89 Rate Random Glucose 58 Calcium Level 8.5 Total Bilirubin 1.0 Aspartate Amino Transf 195 (AST/SGOT) Alanine Aminotransferase 89 (ALT/SGPT) Alkaline Phosphatase 110 Total Protein 8.5 Albumin 4.4 Thyroid Stimulating Hormone 3.780 3rd Gen Salicylates Level LESS THAN 1.7 Acetaminophen Level LESS THAN 2.0 Ethyl Alcohol Level 368 Urine Color YELLOW Urine Turbidity HAZY Urine pH 6.0 Urine Specific [place] 1.022 Urine Protein 300 Urine Glucose (UA) NEG Urine Ketones 80 Urine Occult Blood MOD Urine Nitrite NEG Urine Bilirubin NEG Urine Urobilinogen LESS THAN 2.0 Urine Leukocyte Esterase TRACE Urine RBC 5 Urine WBC 7 Urine Squamous Epithelial <1 Cells Urine Renal Epithelial Cells 1 Urine Bacteria OCC Urine Hyaline Casts 44 Urine Mucus FEW Microscopic Urinalysis Comment CULT NOT INDICATED Urine Opiates Screen NEG Urine Barbiturates Screen NEG Urine Amphetamines Screen NEG Urine Benzodiazepines Screen POS Urine Cocaine Screen NEG Urine Cannabinoids Screen NEG Diagnosis Primary Impression: alcohol dependence Additional Impression: Depression Ruled Out: Suicidal ideations Psychiatrically Cleared: Yes Med/ Other Pt Specific Info: No Change to Meds Disposition: 01 DISCHARGE HOME Condition: Stable Problem Qualifiers Additional Impression: Depression Qualified Code: F33.0 - Mild episode of recurrent major depressive disorder Magi Dawn [facility] July 11, 2016 11:48
[2016-07-11 13:32] VITALS: BP 141/66
== END 2016-07-11 13:40 | disposition home or self-care (01) ==
LOC: NEPC 03:05
DX: F32.9 Major depressive disorder, single episode, unspecified (principal); F10.10 Alcohol abuse, uncomplicated; F41.8 Other specified anxiety disorders; I10 Essential (primary) hypertension; E03.9 Hypothyroidism, unspecified; J44.9 Chronic obstructive pulmonary disease, unspecified; R45.851 Suicidal ideations; E11.9 Type 2 diabetes mellitus without complications; E16.1 Other hypoglycemia; Z79.82 Long term (current) use of aspirin; Z79.4 Long term (current) use of insulin; Y90.8 Blood alcohol level of 240 mg/100 ml or more
CPT/HCPCS: 70450; 72125; 80053; 80307; 81001; 84443; 85025; 96365; 96375; 99285; J2060; J2405; J3411; J7030

== ENCOUNTER 2016-07-20 08:46 | Emergency (ER) | payer OTHER ==
[~2016-07-20] VITALS: Ht 177.8 cm; Wt 110.0 kg
[2016-07-20 08:59] VITALS: BP 128/85; PULSE 79; RESP 20; TEMP 98.2; O2SAT 92
--- NOTE | 2016-07-20 09:30 | PD ---
HPI Chief Complaint: Fall Time Seen by Provider: 09:15 Travel History International Travel<30 days: No Contact w/Intl Traveler<30days: No Traveled to known affect area: No History of Present Illness HPI This patient is a local alcoholic who presents frequently for alcohol related issues. He called paramedics this morning who brought him here. He doesn't have any specific physical complaint. He says he came here because he was drinking. He is thinking about trying alcohol rehabilitation again. He has done that in the past. Denies drug use or intentional overdose. Denies suicidal ideation. Symptoms severity is mild. Duration one day. No alleviating factors PFSH Past Medical History Blood Disorders: No Anxiety: Yes Depression: Yes Heart Rhythm Problems: No Cancer: No Cardiovascular Problems: Yes (HTN) High Cholesterol: No Chest Pain: No Congestive Heart Failure: No COPD: Yes Cerebrovascular Accident: Yes (5years ago) Diabetes: Yes Patient Takes Glucophage: No Diminished Hearing: No Endocrine: No Gastrointestinal Disorders: Yes GERD: Yes Genitourinary: No Headaches: Yes Hepatitis: No Hiatal Hernia: No Hypertension: Yes Immune Disorder: No Implanted Vascular Access Dvce: Yes Insomnia: Yes Musculoskeletal: No Neurologic: Yes Psychiatric: Yes (ETOH ) Reproductive: No Respiratory: Yes (COPD, Sleep Apnea) Migraines: No Myocardial Infarction: No Seizures: Yes Sleep Apnea: Yes (CPAP) Thyroid Disease: Yes Ulcer: No Tetanus Vaccination: > 5 Years Influenza Vaccination: No Past Surgical History Abdominal Surgery: Yes (INGUINAL HERNIA REPAIR) AICD: No Appendectomy: No Arteriovenous Shunt: No Cholecystectomy: No Insulin Pump: No Joint Replacement: No Oral Surgery: Yes (toncilectomy) Pacemaker: No Tonsillectomy: Yes Other Surgery: Yes (SINUS) Social History Alcohol Use: Yes (ALCOHOLIC ) Tobacco Use: Yes Substance Use: No Allergies-Medications (Allergen,Severity, Reaction): Coded Allergies: Erythromycin (Verified Allergy, Severe, Hives, 07/20/16) Penicillin (Verified Allergy, Severe, Hives, 07/20/16) Reported Meds & Prescriptions Reported Meds & Active Scripts Active Seroquel (Quetiapine Fumarate) 100 Mg Tab 100 Mg PO HS Chlordiazepoxide (Chlordiazepoxide HCl) 25 Mg Cap 25 Mg PO DIRECTED PRN Ativan (Lorazepam) 1 Mg Tab 1 Mg PO Q6H PRN Multiple Vitamin 1 Tab 1 Tab PO DAILY Folate (Folic Acid) 1 Mg Tab 1 Mg PO DAILY Thiamine (Thiamine HCl) 100 Mg Tab 100 Mg PO DAILY Sertraline (Sertraline HCl) 25 Mg Tab 50 Mg PO DAILY Protonix (Pantoprazole Sodium) 40 Mg Tab 40 Mg PO DAILY Levothyroxine (Levothyroxine Sodium) 88 Mcg Tab 88 Mcg PO DAILY Glucophage (Metformin HCl) 500 Mg Tab 500 Mg PO BIDPC With meals Quetiapine (Quetiapine Fumarate) 100 Mg Tab 100 Mg PO HS Diovan (Valsartan) 80 Mg Tab 80 Mg PO BID Reported Amlodipine (Amlodipine Besylate) 5 Mg Tab 5 Mg PO DAILY Aspirin 81 Mg Tabdr 81 Mg PO DAILY Review of Systems General / Constitutional: No: Fever Eyes: No: Visual changes HENT: No: Headaches Cardiovascular: No: Chest Pain or Discomfort Respiratory: No: Shortness of Breath Gastrointestinal: No: Abdominal Pain Genitourinary: No: Dysuria Musculoskeletal: No: Pain Skin: No Rash Neurologic: No: Weakness Psychiatric: Positive: Depression, Substance Abuse, No: Suicidal Ideations Endocrine: No: Polydipsia Hematologic/Lymphatic: No: Easy Bruising Physical Exam Narrative GENERAL: Disheveled well-developed patient in no apparent distress. SKIN: Focused skin assessment reveals no rash and nodules. Skin is Warm and dry. HEAD: Atraumatic. Normocephalic. EYES: Pupils equal and round. No scleral icterus. No injection or drainage. ENT: No nasal bleeding or discharge. Mucous membranes pink and moist. NECK: Trachea midline. No JVD. CARDIOVASCULAR: Regular rate and rhythm. No murmur appreciated. RESPIRATORY: No accessory muscle use. Clear to auscultation. Breath sounds equal bilaterally. GASTROINTESTINAL: Abdomen soft, non-tender, nondistended. Hepatic and splenic margins not palpable. MUSCULOSKELETAL: No obvious deformities. No clubbing. No cyanosis. No edema. NEUROLOGICAL: Awake and alert. No obvious cranial nerve deficits. Motor grossly within normal limits. Normal speech. PSYCHIATRIC: Appropriate mood and affect; insight and judgment poor. Data Data Last Documented VS Vital Signs Date Time Temp Pulse Resp B/P Pulse Ox O2 Delivery O2 Flow Rate FiO2 07/20/16 08:59 98.2 79 20 128/85 92 Orders Iv Access Insert/Monitor (07/20/16 09:24) Complete Blood Count With Diff (07/20/16 09:24) Basic Metabolic Panel (Bmp) (07/20/16 09:24) Alcohol (Ethanol) (07/20/16 09:24) Potassium Bicarb Eff (Effer-K Eff) (07/20/16 10:30) Labs Laboratory Tests Test 07/20/16 09:30 White Blood Count 4.6 TH/MM3 Red Blood Count 4.61 MIL/MM3 Hemoglobin 13.8 GM/DL Hematocrit 41.9 % Mean Corpuscular Volume 90.9 FL Mean Corpuscular Hemoglobin 30.0 PG Mean Corpuscular Hemoglobin 33.0 % Concent Red Cell Distribution Width 17.4 % Platelet Count 143 TH/MM3 Mean Platelet Volume 8.2 FL Neutrophils (%) (Auto) 54.7 % Lymphocytes (%) (Auto) 26.9 % Monocytes (%) (Auto) 13.3 % Eosinophils (%) (Auto) 2.5 % Basophils (%) (Auto) 2.6 % Neutrophils # (Auto) 2.5 TH/MM3 Lymphocytes # (Auto) 1.2 TH/MM3 Monocytes # (Auto) 0.6 TH/MM3 Eosinophils # (Auto) 0.1 TH/MM3 Basophils # (Auto) 0.1 TH/MM3 CBC Comment DIFF FINAL Differential Comment Sodium Level 136 MEQ/L Potassium Level 2.8 MEQ/L Chloride Level 89 MEQ/L Carbon Dioxide Level 29.8 MEQ/L Anion Gap 17 MEQ/L Blood Urea Nitrogen 17 MG/DL Creatinine 0.97 MG/DL Estimat Glomerular Filtration 79 ML/MIN Rate Random Glucose 166 MG/DL Calcium Level 10.3 MG/DL Ethyl Alcohol Level 190 MG/DL [facility] Medical Decision Making Medical Screen Exam Complete: Yes Emergency Medical Condition: Yes Medical Record Reviewed: Yes Differential Diagnosis Alcohol intoxication, alcoholism, depression, malingering Narrative Course I have reviewed the patient's electronic medical record. Frequent visitor for alcohol related issues IV placed CBC is normal Metabolic profile shows hypokalemia of 2.8. I replaced 50 mEq orally Alcohol level is 190 suggesting acute intoxication He belatedly reveals that yesterday he stumbled and fell down onto both knees. He's been ambulatory since. His knee exams are unremarkable. Stable for outpatient follow-up. Recommending he go to [facility] to utilize their alcohol rehabilitation services. Diagnosis Primary Impression: Acute alcohol intoxication Qualified Code: F10.920 - Acute alcohol intoxication, uncomplicated Additional Instructions: The patient was advised to follow up with their physician and return if they worsen. Limit alcohol binging Recommend he follow-up at [facility] alcohol rehabilitation services Med/Other Pt SpecificInfo: Other Disposition: 01 DISCHARGE HOME Condition: Stable Chavez Guevara MD July 20, 2016 09:30
[2016-07-20 09:57] LABS: AUTOMATED NEUTROPHIL # 2.5 TH/MM3 (1.8-7.7); BASOPHIL # 0.1 TH/MM3 (0-0.2); BASOPHIL % 2.6 % (0.0-2.0); EOSINOPHIL # 0.1 TH/MM3 (0-0.4); EOSINOPHIL % 2.5 % (0.0-4.0); HEMATOCRIT 41.9 % (39.0-51.0); HEMO FLAGS DIFF FINAL; LYMPH % 26.9 % (9.0-44.0); LYMPHOCYTE # 1.2 TH/MM3 (1.0-4.8); MEAN CELL VOLUME 90.9 FL (80.0-100.0); MONO % 13.3 % (0.0-8.0); NEUT % 54.7 % (16.0-70.0); PLATELET COUNT 143 TH/MM3 (150-450); RED BLOOD COUNT 4.61 MIL/MM3 (4.50-5.90); RED CELL DISTRIBUTION WIDTH 17.4 % (11.6-17.2); WHITE BLOOD COUNT 4.6 TH/MM3 (4.0-11.0)
[2016-07-20 10:18] LABS: BICARBONATE 29.8 MEQ/L (21.0-32.0)
[2016-07-20 10:21] LABS: POTASSIUM 2.8 MEQ/L (3.5-5.1)
[2016-07-20] MEDS ORDERED: POTASSIUM BICARBONATE 25 MEQ EFFERVESCENT TAB PO ONE (10:30)
[2016-07-20 12:20] VITALS: BP 125/85; PULSE 88; RESP 20; O2SAT 95
== END 2016-07-20 12:57 | disposition home or self-care (01) ==
LOC: NEPC 08:46
DX: F10.920 Alcohol use, unspecified with intoxication, uncomplicated (principal); I10 Essential (primary) hypertension; J44.9 Chronic obstructive pulmonary disease, unspecified; E11.9 Type 2 diabetes mellitus without complications; K21.9 Gastro-esophageal reflux disease without esophagitis; G47.30 Sleep apnea, unspecified; E07.9 Disorder of thyroid, unspecified; Z86.73 Personal history of transient ischemic attack (TIA), and cerebral infarction without residual deficits
CPT/HCPCS: 80048; 80307; 85025; 99284

== ENCOUNTER 2016-08-06 17:56 | Emergency (ER) | payer OTHER ==
[~2016-08-06] VITALS: Ht 175.3 cm; Wt 85.0 kg
[2016-08-06 18:03] VITALS: BP 174/103; PULSE 117; RESP 18; TEMP 98.4; O2SAT 97
[2016-08-06 18:14] VITALS: O2SAT 97
--- NOTE | 2016-08-06 18:27 | RADRPT ---
EXAM DATE/TIME: 08/06/2016 18:24 [facility] COMPARISON: CHEST SINGLE AP, August 30, 2014, 17:47. INDICATIONS : Fall today with head and face trauma. MEDICAL HISTORY : Cerebrovascular disease. Cardiovascular disease. Hypertension. SURGICAL HISTORY : None. ENCOUNTER: Initial ACUITY: 1 day PAIN SCORE: 0/10 LOCATION: Bilateral chest FINDINGS: A single view of the chest demonstrates the lungs to be symmetrically aerated without evidence of mas s, infiltrate or effusion. The cardiomediastinal contours are unremarkable. Osseous structures are intact. CONCLUSION: No acute disease. Oral Page MD on August 06, 2016 at 18:23 Board Certified Radiologist. This report was verified electronically.
[2016-08-06 18:35] LABS: AUTOMATED NEUTROPHIL # 3.2 TH/MM3 (1.8-7.7); BASOPHIL # 0.2 TH/MM3 (0-0.2); BASOPHIL % 3.5 % (0.0-2.0); EOSINOPHIL # 0.1 TH/MM3 (0-0.4); EOSINOPHIL % 1.3 % (0.0-4.0); HEMATOCRIT 40.9 % (39.0-51.0); HEMO FLAGS DIFF FINAL; LYMPH % 28.4 % (9.0-44.0); LYMPHOCYTE # 1.5 TH/MM3 (1.0-4.8); MEAN CELL VOLUME 93.2 FL (80.0-100.0); MEAN CORPUSCULAR HEMOGLOBIN 31.1 PG (27.0-34.0); MEAN CORPUSCULAR HGB CONC 33.4 % (32.0-36.0); MONO % 6.2 % (0.0-8.0); NEUT % 60.6 % (16.0-70.0); PLATELET COUNT 269 TH/MM3 (150-450); RED BLOOD COUNT 4.39 MIL/MM3 (4.50-5.90); WHITE BLOOD COUNT 5.3 TH/MM3 (4.0-11.0)
[2016-08-06] MEDS ORDERED: SODIUM CHLOR 0.9% 1000 ML INJ 1,000 ML IV SCH (18:37)
--- NOTE | 2016-08-06 18:44 | RADRPT ---
EXAM DATE/TIME: 08/06/2016 18:25 [facility] COMPARISON: CT BRAIN W/O CONTRAST, July 11, 2016, 3:48. INDICATIONS : Trauma; fall. RADIATION DOSE: 40.12 CTDIvol (mGy) MEDICAL HISTORY : Hypertension. Seizures. Cardiovascular diseaseETOH SURGICAL HISTORY : None. ENCOUNTER: Initial ACUITY: 1 day PAIN SCALE: 5/10 LOCATION: cranial TECHNIQUE: Multiple contiguous axial images were obtained of the head. Using automated exposure control and adj ustment of the mA and/or kV according to patient size, radiation dose was kept as low as reasonably a chievable to obtain optimal diagnostic quality images. FINDINGS: CEREBRUM: Cerebral atrophy. Old right parietal infarct. The ventricles are normal for age. No evidence of midl ine shift, mass lesion, hemorrhage or acute infarction. No extra-axial fluid collections are seen. POSTERIOR FOSSA: The cerebellum and brainstem are intact. The 4th ventricle is midline. The cerebellopontine angle i s unremarkable. EXTRACRANIAL: The visualized portion of the orbits is intact. SKULL: The calvaria is intact. No evidence of skull fracture. CONCLUSION: 1. Remote right parietal infarct. 2. No acute hemorrhage. Oral Page MD on August 06, 2016 at 18:42 Board Certified Radiologist. This report was verified electronically.
[2016-08-06 18:45] LABS: ANION GAP 14 MEQ/L (5-15); APTT (PATIENT) 26.7 SEC (24.3-30.1); AST (GOT) 164 U/L (15-37); BICARBONATE 27.4 MEQ/L (21.0-32.0); BLOOD UREA NITROGEN 12 MG/DL (7-18); CHLORIDE 100 MEQ/L (98-107); GLOMERULAR FILTRATION RATE 76 ML/MIN (>89); MAGNESIUM 1.5 MG/DL (1.5-2.5); POTASSIUM 3.6 MEQ/L (3.5-5.1); PROTHROMBIN TIME - PATIENT 10.7 SEC (9.8-11.6); SODIUM (NA) 141 MEQ/L (136-145)
[2016-08-06] MEDS ORDERED: ONDANSETRON HCL 4 MG/2 ML VIAL IVP ONE (18:45)
[2016-08-06 18:46] LABS: ALT (GPT) 129 U/L (12-78)
--- NOTE | 2016-08-06 18:46 | PD ---
HPI Chief Complaint: Psychiatric Symptoms Time Seen by Provider: 18:42 Travel History International Travel<30 days: No Contact w/Intl Traveler<30days: No Traveled to known affect area: No History of Present Illness HPI 60-year-old male that presents to the ED via ambulance for evaluation of alcohol intoxication and recent fall. Patient had a fall today while intoxicated and hit his head. Unclear of LOC. Ambulance was called and he was brought here on a cervical collar. Patient does have a hematoma to the right eyelid. Per patient he has pain on his head. Denies any chest pain or shortness of breath. Denies any leg or arm pain. Patient is noted good historian is clearly intoxicated. Patient does have a chronic history of alcohol abuse and has been here multiple times for same. Per ambulance report and ED nurse report he apparently did made multiple suicidal statements to the ambulance and therefore they also brought him here for psychiatric evaluation. She has an allergy to erythromycin and penicillin. Patient states that he feels now she had a. He states that he's been drinking a lot today. No other drug abuse. No urinary or bowel movement issues. Per patient the pain in his head is 4 out of 10. No obvious open sores noted. Patient states also having some pain in his right knee. Again history is limited because of patient's clear intoxication. PFSH Past Medical History Blood Disorders: No Anxiety: Yes Depression: Yes Heart Rhythm Problems: No Cancer: No Cardiovascular Problems: Yes (HTN) High Cholesterol: No Chest Pain: No Congestive Heart Failure: No COPD: Yes Cerebrovascular Accident: Yes (5years ago) Diabetes: Yes Patient Takes Glucophage: Yes Diminished Hearing: No Endocrine: No Gastrointestinal Disorders: Yes GERD: Yes Genitourinary: No Headaches: Yes Hepatitis: No Hiatal Hernia: No Hypertension: Yes Immune Disorder: No Implanted Vascular Access Dvce: Yes Insomnia: Yes Musculoskeletal: No Neurologic: Yes Psychiatric: Yes (ETOH ) Reproductive: No Respiratory: Yes (COPD, Sleep Apnea) Migraines: No Myocardial Infarction: No Seizures: Yes Sleep Apnea: Yes (CPAP) Thyroid Disease: Yes Ulcer: No Past Surgical History Abdominal Surgery: Yes (INGUINAL HERNIA REPAIR) AICD: No Appendectomy: No Arteriovenous Shunt: No Cholecystectomy: No Insulin Pump: No Joint Replacement: No Oral Surgery: Yes (toncilectomy) Pacemaker: No Tonsillectomy: Yes Other Surgery: Yes (SINUS) Social History Alcohol Use: Yes (ALCOHOLIC ) Tobacco Use: Yes Substance Use: No Allergies-Medications (Allergen,Severity, Reaction): Coded Allergies: Erythromycin (Verified Allergy, Severe, Hives, 07/20/16) Penicillin (Verified Allergy, Severe, Hives, 07/20/16) Reported Meds & Prescriptions Reported Meds & Active Scripts Active Seroquel (Quetiapine Fumarate) 100 Mg Tab 100 Mg PO HS Chlordiazepoxide (Chlordiazepoxide HCl) 25 Mg Cap 25 Mg PO DIRECTED PRN Ativan (Lorazepam) 1 Mg Tab 1 Mg PO Q6H PRN Multiple Vitamin 1 Tab 1 Tab PO DAILY Folate (Folic Acid) 1 Mg Tab 1 Mg PO DAILY Thiamine (Thiamine HCl) 100 Mg Tab 100 Mg PO DAILY Sertraline (Sertraline HCl) 25 Mg Tab 50 Mg PO DAILY Protonix (Pantoprazole Sodium) 40 Mg Tab 40 Mg PO DAILY Levothyroxine (Levothyroxine Sodium) 88 Mcg Tab 88 Mcg PO DAILY Glucophage (Metformin HCl) 500 Mg Tab 500 Mg PO BIDPC With meals Quetiapine (Quetiapine Fumarate) 100 Mg Tab 100 Mg PO HS Diovan (Valsartan) 80 Mg Tab 80 Mg PO BID Reported Amlodipine (Amlodipine Besylate) 5 Mg Tab 5 Mg PO DAILY Aspirin 81 Mg Tabdr 81 Mg PO DAILY Review of Systems ROS Limitations: Intoxication Except as stated in HPI: all other systems reviewed are Neg Physical Exam Exam Limitations: Intoxication Narrative GENERAL: SKIN: Warm and dry. HEAD: Atraumatic. Normocephalic. EYES: Pupils equal and round 4 mm reactive to light and accommodation. No scleral icterus. No injection or drainage. EOM intact bilaterally with no entrapment. Patient does have a hematoma noted to the eyelids on the right eye. No hyphema. Patient does have a conjunctival hemorrhage on the lateral aspect of the right conjunctiva ENT: No nasal bleeding or discharge. Mucous membranes pink and moist. Tongue is midline. No uvula deviation. NECK: Trachea midline. No JVD. CARDIOVASCULAR: Regular rate and rhythm. No murmurs, S3, S4. RESPIRATORY: No accessory muscle use. Clear to auscultation. Breath sounds equal bilaterally. GASTROINTESTINAL: Abdomen soft, non-tender, nondistended. Hepatic and splenic margins not palpable. MUSCULOSKELETAL: Extremities without clubbing, cyanosis, or edema. No obvious deformities. Full range of motion of the upper and lower extremities bilaterally with no pain. Patient has a cervical collar but no cervical spine tenderness to palpation. No lumbar, thoracic spine tenderness to palpation. No pelvic pain. 2+ pulses bilaterally. NEUROLOGICAL: Awake and alert. No obvious cranial nerve deficits. Motor grossly within normal limits. Five out of 5 muscle strength in the arms and legs. Normal speech. PSYCHIATRIC: Intoxicated mood and affect; insight and judgment questionable secondary to intoxication Data Data Last Documented VS Vital Signs Date Time Temp Pulse Resp B/P Pulse Ox O2 Delivery O2 Flow Rate FiO2 08/06/16 19:00 108 18 155/88 96 Room Air 08/06/16 18:14 2 08/06/16 18:03 98.4 Orders Complete Blood Count With Diff (08/06/16 18:09) Comprehensive Metabolic Panel (08/06/16 18:09) Prothrombin Time / Inr (Pt) (08/06/16 18:09) Act Partial Throm Time (Ptt) (08/06/16 18:09) Urinalysis - C+S If Indicated (08/06/16 18:09) Magnesium (Mg) (08/06/16 18:09) Chest, Single Ap (08/06/16 18:09) Ct Brain W/O Iv Contrast(Rout) (08/06/16 18:09) Iv Access Insert/Monitor (08/06/16 18:09) Ecg Monitoring (08/06/16 18:09) Oximetry (08/06/16 18:09) Psych Screen (08/06/16 18:09) Drug Screen, Random Urine (08/06/16 18:09) Alcohol (Ethanol) (08/06/16 18:09) Ct Facial Bones W/O Iv Cont (08/06/16 ) Ct Cerv Spine W/O Contrast (08/06/16 ) Ondansetron Inj (Zofran Inj) (08/06/16 18:45) Sodium Chlor 0.9% 1000 Ml Inj (Ns 1000 M (08/06/16 18:37) Knee, Ltd (1 Or 2vws) (08/06/16 ) Remove Cervical Collar (08/06/16 18:53) Alcohol Withdrawal Asmt-Ciwa ONCE (08/06/16 18:57) Ondansetron Inj (Zofran Inj) (08/06/16 19:00) Acetaminophen (Tylenol) (08/06/16 19:00) Flumazenil Inj (Romazicon Inj) (08/06/16 19:00) Lorazepam (Ativan) (08/06/16 19:00) Lorazepam Inj (Ativan Inj) (08/06/16 19:00) Lorazepam (Ativan) (08/06/16 19:00) Lorazepam Inj (Ativan Inj) (08/06/16 19:00) Lorazepam Inj (Ativan Inj) (08/06/16 19:00) Lorazepam Inj (Ativan Inj) (08/06/16 19:00) Diet Regular Basic (08/06/16 Dinner) Labs Laboratory Tests Test 08/06/16 18:17 White Blood Count 5.3 TH/MM3 Red Blood Count 4.39 MIL/MM3 Hemoglobin 13.7 GM/DL Hematocrit 40.9 % Mean Corpuscular Volume 93.2 FL Mean Corpuscular Hemoglobin 31.1 PG Mean Corpuscular Hemoglobin 33.4 % Concent Red Cell Distribution Width 18.0 % Platelet Count 269 TH/MM3 Mean Platelet Volume 7.6 FL Neutrophils (%) (Auto) 60.6 % Lymphocytes (%) (Auto) 28.4 % Monocytes (%) (Auto) 6.2 % Eosinophils (%) (Auto) 1.3 % Basophils (%) (Auto) 3.5 % Neutrophils # (Auto) 3.2 TH/MM3 Lymphocytes # (Auto) 1.5 TH/MM3 Monocytes # (Auto) 0.3 TH/MM3 Eosinophils # (Auto) 0.1 TH/MM3 Basophils # (Auto) 0.2 TH/MM3 CBC Comment DIFF FINAL Differential Comment Prothrombin Time 10.7 SEC Prothromb Time International 1.0 RATIO Ratio Activated Partial 26.7 SEC Thromboplast Time Sodium Level 141 MEQ/L Potassium Level 3.6 MEQ/L Chloride Level 100 MEQ/L Carbon Dioxide Level 27.4 MEQ/L Anion Gap 14 MEQ/L Blood Urea Nitrogen 12 MG/DL Creatinine 1.00 MG/DL Estimat Glomerular Filtration 76 ML/MIN Rate Random Glucose 127 MG/DL Calcium Level 8.8 MG/DL Magnesium Level 1.5 MG/DL Total Bilirubin 0.8 MG/DL Aspartate Amino Transf 164 U/L (AST/SGOT) Alanine Aminotransferase 129 U/L (ALT/SGPT) Alkaline Phosphatase 116 U/L Total Protein 8.0 GM/DL Albumin 4.1 GM/DL Ethyl Alcohol Level 315 MG/DL MDM Medical Decision Making Medical Screen Exam Complete: Yes Emergency Medical Condition: Yes Medical Record Reviewed: Yes Interpretation(s) CBC & BMP Diagram 08/06/16 18:[address] 08/06/16 1809 Signed Impressions: Service Date/Time: Saturday, August 06, 2016 18:25 - CONCLUSION: 1. Remote right parietal infarct. 2. No acute hemorrhage. Oral Page MD Chest X-Ray 08/06/16 1809 Signed Impressions: Service Date/Time: Saturday, August 06, 2016 18:24 - CONCLUSION: No acute disease. Oral Page MD Maxillofacial CT 08/06/16 0000 Signed Impressions: Service Date/Time: Saturday, August 06, 2016 18:25 - CONCLUSION: 1. No acute fractures. 2. 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 3. Facial soft tissue swelling. Oral Page MD Cervical Spine CT 08/06/16 0000 Signed Impressions: Service Date/Time: Saturday, August 06, 2016 18:25 - CONCLUSION: 1. Degenerative changes without fracture. Oral Page MD Alcohol 315 LFTS slightly elevated ALT and AST Differential Diagnosis Alcohol intoxication versus head injury versus ICH versus fracture versus depression versus substance abuse mood disorder Narrative Course 60-year-old male that presents to the ED for evaluation of intoxication, suicidal, fall. Patient was properly examined and was found to have signs and symptoms which all appear to be related to alcohol abuse. Patient does have signs signs of trauma to the head recently. Recommend labs and imaging. Patient was given IV fluids as well as Zofran. Labs and imaging here showed no sign of acute disease other than elevated alcohol level. At this time patient will be allowed to sleep of his intoxication. Patient states that he is suicidal for psych screening was ordered. Patient was medically cleared. Cervical collar removed. CIWA was ordered by me. At 7:35 PM I was told by ED nurse that patient wants to leave. Patient still too intoxicated to make this decision. Patient very adamant that he wants to leave. At this time I discussed the case with my attending Dr. Juares who agrees that patient cannot make decisions yet to leave. We did mention to the patient that if he has responsible to come pick him up he can go but he is not able to get one. He still wants to leave. Because of this patient was Barron acted for his own safety. He will be evaluated by psychiatry. Patient was medically clear. Mental health screening was discussed with the patient. Diagnosis Primary Impression: Acute alcohol intoxication Qualified Code: F10.920 - Acute alcohol intoxication, uncomplicated Additional Impressions: Head injury, acute Qualified Code: S09.90XA - Head injury, acute, initial encounter Substance induced mood disorder Jose Cleveland Aug 06, 2016 18:46
--- NOTE | 2016-08-06 18:49 | RADRPT ---
EXAM DATE/TIME: 08/06/2016 18:25 [facility] COMPARISON: No previous studies available for comparison. INDICATIONS : Trauma; fall. RADIATION DOSE: 25.13 CTDIvol (mGy) MEDICAL HISTORY : Seizures. Hypertension. Cardiovascular diseaseETOH SURGICAL HISTORY : None. ENCOUNTER: Initial ACUITY: 1 day PAIN SCALE: 5/10 LOCATION: Bilateral neck TECHNIQUE: Volumetric scanning of the cervical spine was performed. Multiplanar reconstructions in the sagittal, coronal and oblique axial planes were performed. Using automated exposure control and adjustment o f the mA and/or kV according to patient size, radiation dose was kept as low as reasonably achievable to obtain optimal diagnostic quality images. FINDINGS: VERTEBRAE: Normal vertebral body height. Degenerative changes C4-C7. ALIGNMENT: No evidence of subluxation. C2-C3: The bony spinal canal is normal in size. No evidence of disc bulge or herniation. The neural forami na are bilaterally patent. C3-C4: The bony spinal canal is normal in size. No evidence of disc bulge or herniation. The neural forami na are bilaterally patent. C4-C5: Broad-based posterior disc osteophyte complex without canal stenosis. The neural foramina are bilate rally patent. C5-C6: Broad-based posterior disc osteophyte complex with mild canal stenosis. Moderate neural foraminal kailyn rowing bilaterally. C6-C7: The bony spinal canal is normal in size. No evidence of disc bulge or herniation. The neural forami na are bilaterally patent. C7-T1: The bony spinal canal is normal in size. No evidence of disc bulge or herniation. The neural forami na are bilaterally patent. CONCLUSION: 1. Degenerative changes without fracture. Oral Page MD on August 06, 2016 at 18:46 Board Certified Radiologist. This report was verified electronically.
--- NOTE | 2016-08-06 18:53 | RADRPT ---
EXAM DATE/TIME: 08/06/2016 18:25 [facility] COMPARISON: CT FACIAL BONES W/O CONTRAST, August 30, 2014, 18:01. INDICATIONS : Trauma; fall. RADIATION DOSE: 64.08 CTDIvol (mGy) MEDICAL HISTORY : Cardiovascular disease. Hypertension. Seizures.ETOH SURGICAL HISTORY : None. ENCOUNTER: Initial ACUITY: 1 day PAIN SCORE: 5/10 LOCATION: Bilateral facial TECHNIQUE: Volumetric scanning of the facial bones was performed. Using automated exposure control and adjustme nt of the mA and/or kV according to patient size, radiation dose was kept as low as reasonably achiev able to obtain optimal diagnostic quality images. FINDINGS: ORBITS: The orbital and infraorbital osseous structures are intact. The retroconal structures have a normal configuration. No radiopaque foreign bodies are seen. NASAL BONE: The nasal bone and maxillary spine are intact ZYGOMATIC ARCHES: Symmetric without evidence of fracture. SINUSES: The maxillary, ethmoid and frontal sinuses are intact. No air-fluid levels seen. NASAL CAVITY: The nasal septum is intact and midline. The lacrimal ducts are intact. SOFT TISSUES: No radiopaque foreign bodies seen. No soft-tissue swelling is seen. INTRACRANIAL: No intracranial air seen. CRIBIFORM PLATE: Grossly intact. Nonunion fractures of the mandibles at the coronoid process unchanged. CONCLUSION: 1. No acute fractures. 2. 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 3. Facial soft tissue swelling. Oral Page MD on August 06, 2016 at 18:48 Board Certified Radiologist. This report was verified electronically.
[2016-08-06 18:54] LABS: ALKALINE PHOSPHATASE 116 U/L (45-117); TOTAL BILIRUBIN ADULT 0.8 MG/DL (0.2-1.0)
[2016-08-06 19:00] VITALS: BP 155/88; PULSE 108; RESP 18; O2SAT 96
[2016-08-06] MEDS ORDERED: ACETAMINOPHEN 325 MG TAB PO PRN (19:00)
[2016-08-06] MEDS ORDERED: FLUMAZENIL 0.5 MG/5 ML VIAL IV PUSH PRN (19:00)
[2016-08-06] MEDS ORDERED: LORazepam 2 MG TAB PO PRN (19:00)
[2016-08-06] MEDS ORDERED: LORazepam 2 MG/ML VIAL IV PUSH PRN ×4 (19:00)
--- NOTE | 2016-08-06 19:15 | RADRPT ---
EXAM DATE/TIME: 08/06/2016 19:06 [facility] COMPARISON: No previous studies available for comparison. INDICATIONS : Fall. Pain in knee. MEDICAL HISTORY : None. SURGICAL HISTORY : None. ENCOUNTER: Initial ACUITY: 1 day PAIN SCORE: 5/10 LOCATION: Right knee FINDINGS: Two view examination of the right knee demonstrates no evidence of fracture or dislocation. Bony min eralization is normal. Soft tissue swelling. CONCLUSION: Soft tissue swelling without fracture. Oral Page MD on August 06, 2016 at 19:13 Board Certified Radiologist. This report was verified electronically.
[2016-08-06 20:12] LABS: BLOOD, URINE TRACE (NEG); GLUCOSE,URINE NEG (NEG); KETONE, URINE TRACE mg/dL (NEG); NITRITE,URINE NEG (NEG); PH, URINE 5.5 (5.0-8.5); URINE COLOR YELLOW (YELLW/STRAW)
[2016-08-06 20:15] LABS: AMPHETAMINE, URINE NEG (NEG); BARBITURATES, URINE NEG (NEG); COCAINE, URINE NEG (NEG)
[2016-08-06 20:23] LABS: CULTURE IF INDICATED CULT NOT INDICATED; RBC, URINE 0-2 /hpf (0-3); SQUAMOUS EPITHELIAL CELL URINE 0-5 /hpf (0-5)
[2016-08-06 20:24] LABS: COMMENT (UR) CULT NOT INDICATED; COMMENT2 (UR) CULT NOT INDICATED
[2016-08-06] MEDS ORDERED: ASPI81TA5 PO (20:58)
[2016-08-06] MEDS ORDERED: VITA100T54 PO (20:58)
[2016-08-06] MEDS: ONDANSETRON HCL 4 MG/2 ML VIAL IV PUSH PRN (21:47)
[2016-08-06 22:38] VITALS: BP 159/103; PULSE 119; RESP 18; O2SAT 100
[2016-08-07] VITALS (7 sets, daily range): BP systolic 157–180; BP diastolic 95–103; PULSE 97–118; RESP 17–23; TEMP 98.9; O2SAT 92–97
[2016-08-07] MEDS ORDERED: PROCHLORPERAZINE INJ 10 MG/2 ML VIAL IV PUSH ONE (05:00)
[2016-08-07] MEDS: ONDANSETRON HCL 4 MG/2 ML VIAL IV PUSH PRN (08:26)
[2016-08-07] MEDS ORDERED: amLODIPine BESYLATE 5 MG TAB PO ONE (09:15)
[2016-08-07] MEDS ORDERED: VALSARTAN 80 MG TAB PO ONE (09:15)
[2016-08-07] MEDS: LORazepam 1 MG TAB PO PRN ×2 (10:10→15:40)
[2016-08-07] MEDS ORDERED: SERO50TA PO (15:58)
[2016-08-07] MEDS ORDERED: LORA-474 PO (15:59)
--- NOTE | 2016-08-07 17:35 | PD ---
History of Present Illness Chief Complaint: Psychiatric Symptoms Time Seen by Provider: 16:00 Travel History International Travel<30 Days: No Contact w/Intl Traveler<30days: No Known affected area: No Legal Status Legal Status: Barron Act Barron Act Signed By: Signed by ER Provider, Opal Juares MD. Barron Act Comment: Signed by ER Provider, Opal Juares MD. History of Present Illness: Patient has extensive history of alcohol abuse and apparently fell, developing a ecchymosis around the right eye. He reportedly made suicidal comments but at this time he is denying being suicidal. Apparently he was intoxicated at the time of the institution of the Barron act. He is now sober and would like to go home. He denies any suicidal or homicidal ideation, plan or intent. His cognition is intact. He is calm, pleasant and cooperative. He is verbally geoffrey for safety. He is afraid of going into alcohol withdrawal and would like his previous medicines to help with sleep and withdrawal symptoms. These medicines are Seroquel and Ativan. PFSH Past Medical History Blood Disorders: No Anxiety: Yes Depression: Yes Heart Rhythm Problems: No Cancer: No Cardiovascular Problems: Yes (HTN) High Cholesterol: No Chest Pain: No Congestive Heart Failure: No COPD: Yes Cerebrovascular Accident: Yes (5years ago) Diabetes: Yes Patient Takes Glucophage: Yes Diminished Hearing: No Endocrine: No Gastrointestinal Disorders: Yes GERD: Yes Genitourinary: No Headaches: Yes Hepatitis: No Hiatal Hernia: No Hypertension: Yes Immune Disorder: No Implanted Vascular Access Dvce: Yes Insomnia: Yes Musculoskeletal: No Neurologic: Yes Psychiatric: Yes (ETOH ) Reproductive: No Respiratory: Yes (COPD, Sleep Apnea) Migraines: No Myocardial Infarction: No Seizures: Yes Sleep Apnea: Yes (CPAP) Thyroid Disease: Yes Ulcer: No Past Surgical History Abdominal Surgery: Yes (INGUINAL HERNIA REPAIR) AICD: No Appendectomy: No Arteriovenous Shunt: No Cholecystectomy: No Insulin Pump: No Joint Replacement: No Oral Surgery: Yes (toncilectomy) Pacemaker: No Tonsillectomy: Yes Other Surgery: Yes (SINUS) Psychiatric History Psychiatric History Hx Psychiatric Treatment: States that he sees Dr.James Corbin MD. Last saw him approx 2x mons ago. He stated that he has been treated for Depression for the past 12 yrs. He stated that he is taking Seroquel to sleep. States that the last time he stopped drinking and went to detox was June of this year. He stated that he has long stints of sobriety. History of Inpatient Treatment: Yes Social History Hx Alcohol Use: Yes (ALCOHOLIC ) Hx Tobacco Use: Yes Hx Substance Use: No Substance Use Type: Alcohol Other Substances Used: QT. OF VODKA TODAY Hx of Substance Use Treatment: Yes Allergies-Medications (Allergen,Severity, Reaction): Coded Allergies: Erythromycin (Verified Allergy, Severe, Hives, 08/06/16) Penicillin (Verified Allergy, Severe, Hives, 08/06/16) Reported Meds & Prescriptions Reported Meds & Active Scripts Active Ativan (Lorazepam) 1 Mg Tab 1 Mg PO Q8H PRN Seroquel (Quetiapine Fumarate) 50 Mg Tab 50 Mg PO HS Seroquel (Quetiapine Fumarate) 100 Mg Tab 100 Mg PO HS Chlordiazepoxide (Chlordiazepoxide HCl) 25 Mg Cap 25 Mg PO DIRECTED PRN Ativan (Lorazepam) 1 Mg Tab 1 Mg PO Q6H PRN Multiple Vitamin 1 Tab 1 Tab PO DAILY Folate (Folic Acid) 1 Mg Tab 1 Mg PO DAILY Sertraline (Sertraline HCl) 25 Mg Tab 50 Mg PO DAILY Protonix (Pantoprazole Sodium) 40 Mg Tab 40 Mg PO DAILY Levothyroxine (Levothyroxine Sodium) 88 Mcg Tab 88 Mcg PO DAILY Glucophage (Metformin HCl) 500 Mg Tab 500 Mg PO BIDPC With meals Diovan (Valsartan) 80 Mg Tab 80 Mg PO BID Reported Aspirin DR (Aspirin) 81 Mg Tabdr 81 Mg PO DAILY Vitamin B-1 (Thiamine HCl) 100 Mg Tab 100 Mg PO DAILY Amlodipine (Amlodipine Besylate) 5 Mg Tab 5 Mg PO DAILY Review of Systems Except as stated in HPI: all other systems reviewed are Neg Exam Alert: Yes [place]: Person, Place Mood: Calm Affect: Appropriate Speech: Clear, Logical Eye Contact: Normal Memory Intact: Immediate, Recent, Remote Insight/Judgement Adequate MDM Medical Decision Making Medical Record Reviewed: Yes Assessment/Plan Patient's Barron act is being lifted and he is being discharged home per his request. He was given a supply of Ativan 1 mg every 8 hours when necessary anxiety and withdrawal symptoms. He was also given a prescription for Seroquel to help with his insomnia. He was encouraged to stop drinking. He was asked to return to AA meetings. He will also be referred back to Dr. Alaniz, his outpatient psychiatrist. Orders Complete Blood Count With Diff (08/06/16 18:09) Comprehensive Metabolic Panel (08/06/16 18:09) Prothrombin Time / Inr (Pt) (08/06/16 18:09) Act Partial Throm Time (Ptt) (08/06/16 18:09) Urinalysis - C+S If Indicated (08/06/16 18:09) Magnesium (Mg) (08/06/16 18:09) Chest, Single Ap (08/06/16 18:09) Ct Brain W/O Iv Contrast(Rout) (08/06/16 18:09) Iv Access Insert/Monitor (08/06/16 18:09) Ecg Monitoring (08/06/16 18:09) Oximetry (08/06/16 18:09) Psych Screen (08/06/16 18:09) Drug Screen, Random Urine (08/06/16 18:09) Alcohol (Ethanol) (08/06/16 18:09) Ct Facial Bones W/O Iv Cont (08/06/16 ) Ct Cerv Spine W/O Contrast (08/06/16 ) Ondansetron Inj (Zofran Inj) (08/06/16 18:45) Sodium Chlor 0.9% 1000 Ml Inj (Ns 1000 M (08/06/16 18:37) Knee, Ltd (1 Or 2vws) (08/06/16 ) Remove Cervical Collar (08/06/16 18:53) Alcohol Withdrawal Asmt-Ciwa ONCE (08/06/16 18:57) Ondansetron Inj (Zofran Inj) (08/06/16 19:00) Acetaminophen (Tylenol) (08/06/16 19:00) Flumazenil Inj (Romazicon Inj) (08/06/16 19:00) Lorazepam (Ativan) (08/06/16 19:00) Lorazepam Inj (Ativan Inj) (08/06/16 19:00) Lorazepam (Ativan) (08/06/16 19:00) Lorazepam Inj (Ativan Inj) (08/06/16 19:00) Lorazepam Inj (Ativan Inj) (08/06/16 19:00) Lorazepam Inj (Ativan Inj) (08/06/16 19:00) Diet Regular Basic (08/06/16 Dinner) Prochlorperazine Inj (Compazine Inj) (08/07/16 05:00) Amlodipine (Norvasc) (08/07/16 09:15) Valsartan (Diovan) (08/07/16 09:15) Results Vital Signs Date Time Temp Pulse Resp B/P Pulse Ox O2 Delivery O2 Flow Rate FiO2 08/07/16 17:00 109 20 172/98 96 Room Air 08/07/16 13:15 98.9 110 22 179/99 93 Room Air 08/07/16 11:21 112 18 160/103 97 Room Air 08/07/16 06:30 98 19 161/95 95 Room Air 08/07/16 05:05 97 23 175/103 96 Room Air 08/07/16 01:46 101 17 180/101 92 Room Air 08/07/16 00:00 118 18 157/99 95 Room Air 08/06/16 22:38 119 18 159/103 100 Room Air 08/06/16 19:00 108 18 155/88 96 Room Air 08/06/16 18:15 110 18 08/06/16 18:14 97 Nasal Cannula 2 08/06/16 18:03 98.4 117 18 174/103 97 Laboratory Tests Test 08/06/16 08/06/16 18:17 19:46 White Blood Count 5.3 Red Blood Count 4.39 Hemoglobin 13.7 Hematocrit 40.9 Mean Corpuscular Volume 93.2 Mean Corpuscular Hemoglobin 31.1 Mean Corpuscular Hemoglobin 33.4 Concent Red Cell Distribution Width 18.0 Platelet Count 269 Mean Platelet Volume 7.6 Neutrophils (%) (Auto) 60.6 Lymphocytes (%) (Auto) 28.4 Monocytes (%) (Auto) 6.2 Eosinophils (%) (Auto) 1.3 Basophils (%) (Auto) 3.5 Neutrophils # (Auto) 3.2 Lymphocytes # (Auto) 1.5 Monocytes # (Auto) 0.3 Eosinophils # (Auto) 0.1 Basophils # (Auto) 0.2 CBC Comment DIFF FINAL Differential Comment Prothrombin Time 10.7 Prothromb Time International 1.0 Ratio Activated Partial 26.7 Thromboplast Time Sodium Level 141 Potassium Level 3.6 Chloride Level 100 Carbon Dioxide Level 27.4 Anion Gap 14 Blood Urea Nitrogen 12 Creatinine 1.00 Estimat Glomerular Filtration 76 Rate Random Glucose 127 Calcium Level 8.8 Magnesium Level 1.5 Total Bilirubin 0.8 Aspartate Amino Transf 164 (AST/SGOT) Alanine Aminotransferase 129 (ALT/SGPT) Alkaline Phosphatase 116 Total Protein 8.0 Albumin 4.1 Ethyl Alcohol Level 315 Urine Color YELLOW Urine Turbidity CLEAR Urine pH 5.5 Urine Specific [place] 1.017 Urine Protein 100 Urine Glucose (UA) NEG Urine Ketones TRACE Urine Occult Blood TRACE Urine Nitrite NEG Urine Bilirubin NEG Urine Urobilinogen LESS THAN 2.0 Urine Leukocyte Esterase NEG Urine RBC 0-2 Urine WBC 3-5 Urine Squamous Epithelial 0-5 Cells Urine Bacteria NONE Microscopic Urinalysis Comment CULT NOT INDICATED Urine Opiates Screen NEG Urine Barbiturates Screen NEG Urine Amphetamines Screen NEG Urine Benzodiazepines Screen POS Urine Cocaine Screen NEG Urine Cannabinoids Screen NEG Diagnosis Primary Impression: Alcohol dependence Departure Forms: Tests/Procedures Patient Instructions: General Instructions, Alcohol Withdrawal (ED), Alcohol Dependence (ED) Prescriptions Lorazepam (Ativan)1 Mg Tab1 Mg PO Q8H PRN (ANXIETY AND/OR AGITATION) #30 TAB Ref 0 Prov:Giuliano Pulliam MD 08/07/16 Quetiapine (Seroquel)50 Mg Tab50 Mg PO HS #30 TAB Ref 0 Prov:Giuliano Pulliam MD 08/07/16 Disposition: 01 DISCHARGE HOME Condition: Stable Giuliano Pulliam MD Aug 07, 2016 17:35
== END 2016-08-07 17:04 | disposition home or self-care (01) ==
LOC: NEPE 17:56 → NEPD 08-07 17:04
DX: S09.90XA Unspecified injury of head, initial encounter (principal); F10.920 Alcohol use, unspecified with intoxication, uncomplicated; I10 Essential (primary) hypertension; J44.9 Chronic obstructive pulmonary disease, unspecified; E11.9 Type 2 diabetes mellitus without complications; Z86.73 Personal history of transient ischemic attack (TIA), and cerebral infarction without residual deficits; G47.30 Sleep apnea, unspecified; H02.89 Other specified disorders of eyelid; H11.31 Conjunctival hemorrhage, right eye; Z87.891 Personal history of nicotine dependence; W19.XXXA Unspecified fall, initial encounter; Y93.9 Activity, unspecified; Y92.9 Unspecified place or not applicable; Y99.8 Other external cause status
CPT/HCPCS: 70450; 70486; 71010; 72125; 73560; 80053; 80307; 81001; 83735; 85025; 85610; 85730; 96361; 96374; 96375; 96376; 99285; J0780; J2060; J2405; J7030

== ENCOUNTER 2016-09-20 12:27 | Inpatient (IN) | payer OTHER ==
[2016-09-20] VITALS (7 sets, daily range): BP systolic 138–168; BP diastolic 79–97; PULSE 110–122; RESP 16–21; TEMP 98.4; O2SAT 91–96
[~2016-09-20] VITALS: Ht 177.8 cm; Wt 108.9 kg
[~2016-09-20 12:27] MED LIST changes: -ASPI1TAB69 PO; +ASPI81TA5 PO; -QUET1TAB8 PO; +SERO50TA PO; -THIA100T PO; +VITA100T54 PO
--- NOTE | 2016-09-20 12:47 | PD ---
HPI Chief Complaint: alcohol Time Seen by Provider: 12:46 Travel History International Travel<30 days: No Contact w/Intl Traveler<30days: No Traveled to known affect area: No History of Present Illness HPI 60 YO male with PMH of HTN, DM T2, COPD presents to the ED via EMS requesting detox from alcohol. Patient states that he drank a bottle of vodka and a bottle of wine since ~10:00 last night. He denies daily drinking. He endorses depression, but denies suicidal or homicidal ideation. On presentation he complains of frontal headache, similar to previous headaches. He states that he normally just "rides out" the pain. Denies other somatic complaints. Requests food. PFSH Past Medical History Blood Disorders: No Anxiety: Yes Depression: Yes Heart Rhythm Problems: No Cancer: No Cardiovascular Problems: Yes (HTN) High Cholesterol: No Chest Pain: No Congestive Heart Failure: No COPD: Yes Cerebrovascular Accident: Yes (5years ago) Diabetes: Yes Diminished Hearing: No Endocrine: No Gastrointestinal Disorders: Yes GERD: Yes Genitourinary: No Headaches: Yes Hepatitis: No Hiatal Hernia: No Hypertension: Yes Immune Disorder: No Implanted Vascular Access Dvce: Yes Insomnia: Yes Musculoskeletal: No Neurologic: Yes Psychiatric: Yes (ETOH ) Reproductive: No Respiratory: Yes (COPD, Sleep Apnea) Migraines: No Myocardial Infarction: No Seizures: Yes Sleep Apnea: Yes (CPAP) Thyroid Disease: Yes Ulcer: No Past Surgical History Abdominal Surgery: Yes (INGUINAL HERNIA REPAIR) AICD: No Appendectomy: No Arteriovenous Shunt: No Cholecystectomy: No Insulin Pump: No Joint Replacement: No Oral Surgery: Yes (toncilectomy) Pacemaker: No Tonsillectomy: Yes Other Surgery: Yes (SINUS) Social History Alcohol Use: Yes (ALCOHOLIC ) Tobacco Use: Yes Substance Use: No Allergies-Medications (Allergen,Severity, Reaction): Coded Allergies: Erythromycin (Verified Allergy, Severe, Hives, 09/20/16) Penicillin (Verified Allergy, Severe, Hives, 09/20/16) Reported Meds & Prescriptions Reported Meds & Active Scripts Active Ativan (Lorazepam) 1 Mg Tab 1 Mg PO Q8H PRN Seroquel (Quetiapine Fumarate) 50 Mg Tab 50 Mg PO HS Seroquel (Quetiapine Fumarate) 100 Mg Tab 100 Mg PO HS Ativan (Lorazepam) 1 Mg Tab 1 Mg PO Q6H PRN Multiple Vitamin 1 Tab 1 Tab PO DAILY Sertraline (Sertraline HCl) 25 Mg Tab 50 Mg PO DAILY Protonix (Pantoprazole Sodium) 40 Mg Tab 40 Mg PO DAILY Levothyroxine (Levothyroxine Sodium) 88 Mcg Tab 88 Mcg PO DAILY Glucophage (Metformin HCl) 500 Mg Tab 500 Mg PO BIDPC With meals Diovan (Valsartan) 80 Mg Tab 80 Mg PO BID Reported Aspirin DR (Aspirin) 81 Mg Tabdr 81 Mg PO DAILY Vitamin B-1 (Thiamine HCl) 100 Mg Tab 100 Mg PO DAILY Amlodipine (Amlodipine Besylate) 5 Mg Tab 5 Mg PO DAILY Review of Systems Except as stated in HPI: all other systems reviewed are Neg Physical Exam Exam Limitations: Intoxication Narrative GENERAL: Well-nourished, well-developed white male in no acute distress. Alert , oriented, answers questions appropriately. PSYCHIATRIC: No delusional thought processes. No hallucinations. SKIN: Focused skin assessment warm/dry. HEAD: Normocephalic. EYES: No scleral icterus. No injection or drainage. NECK: Supple, trachea midline. No JVD or lymphadenopathy. CARDIOVASCULAR: Regular rate and rhythm without murmurs, gallops, or rubs. RESPIRATORY: Breath sounds clear and equal bilaterally. No accessory muscle use. GASTROINTESTINAL: Abdomen protuberant, soft, non-tender, nondistended. Active bowel sounds. MUSCULOSKELETAL: No cyanosis, or edema. Ambulatory, moves extremities spontaneously. NEUROLOGICAL: Awake and alert. Cranial nerves II through XII intact. Motor and sensory grossly within normal limits. Five out of 5 muscle strength in all muscle groups. Normal speech. BACK: Nontender without obvious deformity. No CVA tenderness. Data Data Last Documented VS Vital Signs Date Time Temp Pulse Resp B/P Pulse Ox O2 Delivery O2 Flow Rate FiO2 09/20/16 18:33 118 18 138/86 96 Nasal Cannula 2 09/20/16 12:54 98.4 Orders Alcohol (Ethanol) (09/20/16 12:56) Blood Glucose (09/20/16 13:08) Alcohol Withdrawal Asmt-Ciwa ONCE (09/20/16 14:06) Lorazepam (Ativan) (09/20/16 14:15) Lorazepam Inj (Ativan Inj) (09/20/16 14:15) Lorazepam (Ativan) (09/20/16 14:15) Lorazepam Inj (Ativan Inj) (09/20/16 14:15) Lorazepam Inj (Ativan Inj) (09/20/16 14:15) Lorazepam Inj (Ativan Inj) (09/20/16 14:15) Sodium Chlor 0.9% 1000 Ml Inj (Ns 1000 M (09/20/16 14:15) Ondansetron Inj (Zofran Inj) (09/20/16 18:15) Sodium Chlor 0.9% 1000 Ml Inj (Ns 1000 M (09/20/16 18:15) Ondansetron Inj (Zofran Inj) (09/20/16 18:15) Complete Blood Count With Diff (09/20/16 18:42) Comprehensive Metabolic Panel (09/20/16 18:42) Urinalysis - C+S If Indicated (09/20/16 18:42) Sodium Chloride 0.9% Flush (Ns Flush) (09/20/16 18:45) Sodium Chlor 0.9% 1000 Ml Inj (Ns 1000 M (09/20/16 20:15) Psych Screen (09/20/16 20:04) Labs Laboratory Tests Test 09/20/16 09/20/16 13:53 18:40 Ethyl Alcohol Level 250 MG/DL White Blood Count 16.1 TH/MM3 Red Blood Count 4.67 MIL/MM3 Hemoglobin 14.6 GM/DL Hematocrit 43.4 % Mean Corpuscular Volume 92.9 FL Mean Corpuscular Hemoglobin 31.2 PG Mean Corpuscular Hemoglobin 33.6 % Concent Red Cell Distribution Width 15.7 % Platelet Count 241 TH/MM3 Mean Platelet Volume 8.8 FL Neutrophils (%) (Auto) 87.6 % Lymphocytes (%) (Auto) 7.7 % Monocytes (%) (Auto) 4.2 % Eosinophils (%) (Auto) 0.0 % Basophils (%) (Auto) 0.5 % Neutrophils # (Auto) 14.1 TH/MM3 Lymphocytes # (Auto) 1.2 TH/MM3 Monocytes # (Auto) 0.7 TH/MM3 Eosinophils # (Auto) 0.0 TH/MM3 Basophils # (Auto) 0.1 TH/MM3 CBC Comment DIFF FINAL Differential Comment Urine Color LIGHT-YELLOW Urine Turbidity CLEAR Urine pH 6.0 Urine Specific [place] 1.007 Urine Protein 30 mg/dL Urine Glucose (UA) NEG mg/dL Urine Ketones 10 mg/dL Urine Occult Blood MOD Urine Nitrite NEG Urine Bilirubin NEG Urine Urobilinogen LESS THAN 2.0 MG/DL Urine Leukocyte Esterase NEG Urine RBC LESS THAN 1 /hpf Urine WBC 1 /hpf Urine Amorphous Sediment RARE Urine Bacteria RARE /hpf Microscopic Urinalysis Comment CULT NOT INDICATED Sodium Level 124 MEQ/L Potassium Level 3.4 MEQ/L Chloride Level 80 MEQ/L Carbon Dioxide Level 22.5 MEQ/L Anion Gap 22 MEQ/L Blood Urea Nitrogen 23 MG/DL Creatinine 1.24 MG/DL Estimat Glomerular Filtration 60 ML/MIN Rate Random Glucose 105 MG/DL Calcium Level 9.1 MG/DL Total Bilirubin 1.4 MG/DL Aspartate Amino Transf 1059 U/L (AST/SGOT) Alanine Aminotransferase 189 U/L (ALT/SGPT) Alkaline Phosphatase 110 U/L Total Protein 8.3 GM/DL Albumin 3.9 GM/DL MDM Medical Decision Making Medical Screen Exam Complete: Yes Emergency Medical Condition: Yes Differential Diagnosis Acute alcohol intoxication versus alcohol dependence versus malingering versus Narrative Course 60 YO male with PMH of COPD, HTN, DMT2 presents to the ED via EMS requesting detox from alcohol. Patient states that he drank a bottle of vodka and a bottle of wine since ~10:00 last night. He denies daily drinking, but endorses frequent binging. He denies SI, HI. Requests food. Vitals reviewed. Patient tachycardic and hypertensive on presentation. Last labs /, elevation of the LFTs noted but otherwise unremarkable. Abdominal exam benign today. Patient was administered 1 L normal saline x 3, CIWA protocol was initiated. Alcohol level 250. Tachycardia persistent despite fluid resuscitation and Ativan administration. O2 sats 92-94, dipping lower while sleeping, requiring 2 L by NC. The patient uses a CPAP at home. Lab work drawn. CBC: WBC 16.1. CMP: Sodium 124, potassium 3.4. Bilirubin 1.4, AST 1059, ALT 189. UA: No culture indicated. Given the patient's hyponatremia and elevated LFTs, plan to admit to the medicine service. Discussed this with the patient who is agreeable. Call placed to [facility]. I spoke with Dr. Mcdonald who agrees to accept the patient to the medicine service. Please see medicine notes for disposition. Diagnosis Primary Impression: Hyponatremia Additional Impressions: Elevated LFTs Acute alcohol intoxication Qualified Code: F10.920 - Acute alcohol intoxication, uncomplicated Alcohol withdrawal Qualified Code: F10.230 - Alcohol withdrawal, uncomplicated Disposition: 01 DISCHARGE HOME Condition: Stable Susan Waddell Sep 20, 2016 12:47
[2016-09-20] MEDS ORDERED: SODIUM CHLOR 0.9% 1000 ML INJ 1,000 ML IV ONE ×3 (14:15→20:15)
[2016-09-20] MEDS ORDERED: LORazepam 2 MG/ML VIAL IV PUSH PRN ×3 (14:15)
[2016-09-20] MEDS ORDERED: FLUMAZENIL 0.5 MG/5 ML VIAL IV PUSH PRN (14:15)
[2016-09-20] MEDS ORDERED: LORazepam 2 MG TAB PO PRN (14:15)
[2016-09-20] MEDS: LORazepam 2 MG/ML VIAL IV PUSH PRN ×3 (14:36→23:00)
[2016-09-20] MEDS ORDERED: ONDANSETRON HCL 4 MG/2 ML VIAL IV PUSH ONE (18:15)
[2016-09-20] MEDS ORDERED: ONDANSETRON HCL 4 MG/2 ML VIAL ONE (18:15)
[2016-09-20] MEDS ORDERED: SODIUM CHLORIDE 0.9% FLUSH 10 ML FLUSH IV FLUSH PRN (18:45)
[2016-09-20 19:26] LABS: AUTOMATED NEUTROPHIL # 14.1 TH/MM3 (1.8-7.7); BASOPHIL # 0.1 TH/MM3 (0-0.2); BASOPHIL % 0.5 % (0.0-2.0); HEMATOCRIT 43.4 % (39.0-51.0); HEMO FLAGS DIFF FINAL; LYMPH % 7.7 % (9.0-44.0); LYMPHOCYTE # 1.2 TH/MM3 (1.0-4.8); MEAN CELL VOLUME 92.9 FL (80.0-100.0); MEAN CORPUSCULAR HEMOGLOBIN 31.2 PG (27.0-34.0); MEAN CORPUSCULAR HGB CONC 33.6 % (32.0-36.0); MONO % 4.2 % (0.0-8.0); NEUT % 87.6 % (16.0-70.0); PLATELET COUNT 241 TH/MM3 (150-450); RED BLOOD COUNT 4.67 MIL/MM3 (4.50-5.90); RED CELL DISTRIBUTION WIDTH 15.7 % (11.6-17.2); WHITE BLOOD COUNT 16.1 TH/MM3 (4.0-11.0)
[2016-09-20 19:30] LABS: BACTERIA, URINE RARE /hpf; BLOOD, URINE MOD (NEG); COMMENT (UR) CULT NOT INDICATED; CULTURE IF INDICATED CULT NOT INDICATED; GLUCOSE,URINE NEG (NEG); KETONE, URINE 10 mg/dL (NEG); NITRITE,URINE NEG (NEG); URINE COLOR LIGHT-YELLOW (YELLW/STRAW)
[2016-09-20 20:03] LABS: ALKALINE PHOSPHATASE 110 U/L (45-117); ALT (GPT) 189 U/L (12-78); ANION GAP 22 MEQ/L (5-15); AST (GOT) 1059 U/L (15-37); BICARBONATE 22.5 MEQ/L (21.0-32.0); BLOOD UREA NITROGEN 23 MG/DL (7-18); CHLORIDE 80 MEQ/L (98-107); GLOMERULAR FILTRATION RATE 60 ML/MIN (>89); TOTAL BILIRUBIN ADULT 1.4 MG/DL (0.2-1.0)
[2016-09-20 20:05] LABS: POTASSIUM 3.4 MEQ/L (3.5-5.1)
[2016-09-20 20:07] LABS: SODIUM (NA) 124 MEQ/L (136-145)
[2016-09-20] MEDS ORDERED: ONDANSETRON HCL 4 MG/2 ML VIAL IVP PRN (23:00)
[2016-09-20] MEDS ORDERED: SENNOSIDES 8.6 MG TAB PO PRN (23:00)
[2016-09-20] MEDS ORDERED: NALOXONE HCL 0.4 MG/ML AMP IV PRN (23:00)
[2016-09-20] MEDS ORDERED: BISACODYL 10 MG SUPP RECTAL PRN (23:00)
[2016-09-20] MEDS ORDERED: MAGNESIUM HYDROXIDE SUSP 30 ML CUP PO PRN (23:00)
[2016-09-20] MEDS ORDERED: LACTULOSE SYRUP 20 GM/30 ML CUP PO PRN (23:00)
--- NOTE | 2016-09-20 23:05 | HHI.HP ---
HPI Service [facility] Hospitalists Primary Care Physician No Primary Care Physician Admission Diagnosis alcohol withdrawal, hyponatremia, elevated LFTs Chief Complaint: came to hospital with etoh abuse Travel History International Travel<30 Days: No Contact w/Intl Traveler <30 Da: No Traveled to Known Affected Are: No History of Present Illness 60 YO male with PMH of HTN, DM T2, COPD presents to the ED via EMS requesting detox from alcohol. Patient states that he drank a bottle of vodka and a bottle of wine since ~10:00 last night. He denies daily drinking. He has depression, but denies suicidal or homicidal ideation. Patient is on both seraquel and sertraline and ativan. On presentation he complains of frontal headache, similar to previous headaches. He states that he normally just " rides out" the pain. Denies other somatic complaints. Lab work reveals positive etoh level,[id number],significant elevation LFT placed on withdrawal protocol fluids given follow up labs ,CT non contrast abdomen,sliding scale insulin. Review of Systems Neurologic: COMPLAINS OF: Headache Past Family Social History Past Medical History dm,hypertension,cva 5 years ago,hypothyroid,gerd sleep apnea Past Surgical History inguinal hernia repair,tonsil,sinus surgery Reported Medications [id number] hs,sertraline 50,protonix 40 levothyroxine 88 [id number] bid, diovan 80 bid [id number] asa 81 vit b1 Allergies: Coded Allergies: Erythromycin (Verified Allergy, Severe, Hives, 09/20/16) Penicillin (Verified Allergy, Severe, Hives, 09/20/16) Social History former smoker positive etoh Physical Exam Vital Signs Vital Signs Date Time Temp Pulse Resp B/P Pulse Ox O2 Delivery O2 Flow Rate FiO2 09/20/16 21:04 122 16 140/97 94 Nasal Cannula 2 09/20/16 18:33 118 18 138/86 96 Nasal Cannula 2 09/20/16 17:45 121 18 168/79 94 Room Air 09/20/16 15:11 110 18 158/87 96 Nasal Cannula 2 09/20/16 12:54 98.4 110 21 157/86 95 Nasal Cannula 2 09/20/16 12:54 110 21 95 Nasal Cannula 2 09/20/16 12:47 98.4 112 21 157/86 91 Physical Exam GENERAL: This is a well-nourished, well-developed patient, in no apparent distress. SKIN: No rashes, ecchymoses or lesions. Cool and dry. HEAD: Atraumatic. Normocephalic. No temporal or scalp tenderness. EYES: Pupils equal round and reactive. Extraocular motions intact. No scleral icterus. No injection or drainage. ENT: Nose without bleeding, purulent drainage or septal hematoma. Throat without erythema, tonsillar hypertrophy or exudate. Uvula midline. Airway patent. NECK: Trachea midline. No JVD or lymphadenopathy. Supple, nontender, no meningeal signs. CARDIOVASCULAR: Regular rate and rhythm without murmurs, gallops, or rubs. RESPIRATORY: Clear to auscultation. Breath sounds equal bilaterally. No wheezes , rales, or rhonchi. GASTROINTESTINAL: Abdomen soft, non-tender, nondistended. No hepato-splenomegaly , or palpable masses. No guarding. MUSCULOSKELETAL: Extremities without clubbing, cyanosis, or edema. No joint tenderness, effusion, or edema noted. No calf tenderness. Negative Homans sign bilaterally. NEUROLOGICAL: Awake and alert. Cranial nerves II through XII intact. Motor and sensory grossly within normal limits. Five out of 5 muscle strength in all muscle groups. Normal speech. Laboratory Laboratory Tests Test 09/20/16 09/20/16 13:53 18:40 Ethyl Alcohol Level 250 White Blood Count 16.1 Red Blood Count 4.67 Hemoglobin 14.6 Hematocrit 43.4 Mean Corpuscular Volume 92.9 Mean Corpuscular Hemoglobin 31.2 Mean Corpuscular Hemoglobin 33.6 Concent Red Cell Distribution Width 15.7 Platelet Count 241 Mean Platelet Volume 8.8 Neutrophils (%) (Auto) 87.6 Lymphocytes (%) (Auto) 7.7 Monocytes (%) (Auto) 4.2 Eosinophils (%) (Auto) 0.0 Basophils (%) (Auto) 0.5 Neutrophils # (Auto) 14.1 Lymphocytes # (Auto) 1.2 Monocytes # (Auto) 0.7 Eosinophils # (Auto) 0.0 Basophils # (Auto) 0.1 CBC Comment DIFF FINAL Differential Comment Urine Color LIGHT-YELLOW Urine Turbidity CLEAR Urine pH 6.0 Urine Specific [place] 1.007 Urine Protein 30 Urine Glucose (UA) NEG Urine Ketones 10 Urine Occult Blood MOD Urine Nitrite NEG Urine Bilirubin NEG Urine Urobilinogen LESS THAN 2.0 Urine Leukocyte Esterase NEG Urine RBC LESS THAN 1 Urine WBC 1 Urine Amorphous Sediment RARE Urine Bacteria RARE Microscopic Urinalysis Comment CULT NOT INDICATED Sodium Level 124 Potassium Level 3.4 Chloride Level 80 Carbon Dioxide Level 22.5 Anion Gap 22 Blood Urea Nitrogen 23 Creatinine 1.24 Estimat Glomerular Filtration 60 Rate Random Glucose 105 Calcium Level 9.1 Total Bilirubin 1.4 Aspartate Amino Transf 1059 (AST/SGOT) Alanine Aminotransferase 189 (ALT/SGPT) Alkaline Phosphatase 110 Total Protein 8.3 Albumin 3.9 Result Diagram: 09/20/16183909/20/161839 Course in er started iv fluids Assessment and Plan Problem List: (1) Elevated LFTs Status: Acute Plan: related to etoh abuse will get non contrast CT to evaluate may need GI evaluation (2) Hyponatremia Status: Acute Plan: related to component of dehydration and etoh abuse fluids given recheck labs (3) Alcohol withdrawal Status: Acute Plan: on protocol (4) Alcohol abuse Status: Chronic Plan: on protocol (5) HTN (hypertension) Status: Chronic Plan: continue home meds add clonidine prn (6) Diabetes Status: Chronic Plan: sliding scale with coverage for now Assessment and Plan further plan as case develops Code Status full Discussed Condition With patient Physician Certification 2 Midnight Certification Type: Admission for Inpatient Services Order for Inpatient Services The services are ordered in accordance with Medicare regulations or non- Medicare payer requirements, as applicable. In the case of services not specified as inpatient-only, they are appropriately provided as inpatient services in accordance with the 2-midnight benchmark. Estimated LOS (days): 3 3 days is the estimated time the patient will need to remain in the hospital, assuming treatment plan goals are met and no additional complications. Post-Hospital Plan: Not yet determined Problem Qualifiers (1) Alcohol withdrawal: Qualified Code: F10.230 - Alcohol withdrawal, uncomplicated (2) Diabetes: Luis Mcdonald MD Sep 20, 2016 23:05
[2016-09-20] MEDS ORDERED: GLUCAGON 1 MG/ML VIAL OTHER PRN (23:15)
[2016-09-20] MEDS ORDERED: DEXTROSE 50% IN WATER 50 ML VIAL(D50) IV PRN (23:15)
[2016-09-20] MEDS: SODIUM CHLOR 0.9% 1000 ML INJ 1,000 ML IV SCH (23:24)
[2016-09-20] MEDS: PANTOPRAZOLE SODIUM 40 MG VIAL IV PUSH SCH (23:24)
[2016-09-21] VITALS (12 sets, daily range): BP systolic 122–179; BP diastolic 69–97; PULSE 86–112; RESP 18–20; TEMP 97.9–98.8; O2SAT 94–96
[2016-09-21] MEDS: SODIUM CHLORIDE 0.9% FLUSH 10 ML FLUSH IV FLUSH PRN ×2 (00:25→02:46)
[2016-09-21] MEDS: LORazepam 2 MG/ML VIAL IV PUSH PRN (02:46)
[2016-09-21] MEDS: LEVOTHYROXINE SODIUM 88 MCG TAB PO SCH (05:58)
[2016-09-21] MEDS: INSULIN ASPART SUPPLEMENTAL SCALE SQ SCH ×4 (06:00→20:50)
[2016-09-21 08:04] LABS: AUTOMATED NEUTROPHIL # 9.9 TH/MM3 (1.8-7.7); BASOPHIL # 0.1 TH/MM3 (0-0.2); BASOPHIL % 0.6 % (0.0-2.0); EOSINOPHIL % 0.4 % (0.0-4.0); HEMATOCRIT 39.1 % (39.0-51.0); HEMO FLAGS DIFF FINAL; LYMPH % 6.3 % (9.0-44.0); LYMPHOCYTE # 0.7 TH/MM3 (1.0-4.8); MEAN CELL VOLUME 92.8 FL (80.0-100.0); MEAN CORPUSCULAR HEMOGLOBIN 31.1 PG (27.0-34.0); MEAN CORPUSCULAR HGB CONC 33.5 % (32.0-36.0); NEUT % 87.7 % (16.0-70.0); PLATELET COUNT 156 TH/MM3 (150-450); RED BLOOD COUNT 4.21 MIL/MM3 (4.50-5.90); RED CELL DISTRIBUTION WIDTH 15.2 % (11.6-17.2); WHITE BLOOD COUNT 11.3 TH/MM3 (4.0-11.0)
[2016-09-21 08:35] LABS: ALKALINE PHOSPHATASE 96 U/L (45-117); ALT (GPT) 146 U/L (12-78); ANION GAP 16 MEQ/L (5-15); AST (GOT) 599 U/L (15-37); BICARBONATE 26.1 MEQ/L (21.0-32.0); BLOOD UREA NITROGEN 23 MG/DL (7-18); CHLORIDE 94 MEQ/L (98-107); GLOMERULAR FILTRATION RATE 58 ML/MIN (>89); POTASSIUM 3.5 MEQ/L (3.5-5.1); SODIUM (NA) 136 MEQ/L (136-145); TOTAL BILIRUBIN ADULT 1.4 MG/DL (0.2-1.0)
--- NOTE | 2016-09-21 08:35 | RADRPT ---
EXAM DATE/TIME: 09/21/2016 08:14 [facility] COMPARISON: No previous studies available for comparison. INDICATIONS : Nausea for four to six days. ORAL CONTRAST: No oral contrast ingested. RADIATION DOSE: 10.59 CTDIvol (mGy) MEDICAL HISTORY : Cardiovascular disease. Hypertension. Diabetes mellitus type 2. SURGICAL HISTORY : None. ENCOUNTER: Initial ACUITY: 1 day PAIN SCALE: 5/10 LOCATION: abdomen TECHNIQUE: Volumetric scanning of the abdomen and pelvis was performed. Using automated exposure control and ad justment of the mA and/or kV according to patient size, radiation dose was kept as low as reasonably achievable to obtain optimal diagnostic quality images. DICOM format image data is available electro nically for review and comparison. FINDINGS: LOWER LUNGS: There is a masslike area consolidation within the posterior basilar segment of the right lower lobe. This measures 6.0 x 3.6 x 2.5 cm and abuts the pleural surface. No air bronchograms observed. LIVER: Homogeneously low in density without lesion. There is no dilation of the biliary tree. No calcified gallstones. SPLEEN: Normal size without lesion. PANCREAS: Within normal limits. KIDNEYS: Normal in size and shape. There is no mass, stone, or hydronephrosis. ADRENAL GLANDS: Within normal limits. VASCULAR: There is no aortic aneurysm. BOWEL/MESENTERY: The stomach, small bowel, and colon demonstrate no acute abnormality. There is no free intraperitone al air or fluid. Scattered colonic diverticuli without acute inflammation. ABDOMINAL WALL: Within normal limits. RETROPERITONEUM: There is no lymphadenopathy. BLADDER: No wall thickening or mass. REPRODUCTIVE: Within normal limits. INGUINAL: There is no lymphadenopathy or hernia. MUSCULOSKELETAL: Within normal limits for patient age. CONCLUSION: 1. No acute abnormality. 2. Masslike area of consolidation involving the right lower lobe. Although this could relate to round ed atelectasis I cannot exclude other etiologies. I suggest a repeat CT of the thorax in 3 months to document stability/resolution. 3. Hepatic steatosis. 4. Colonic diverticulosis without acute inflammation. Luis Gardiner Jr., MD on September 21, 2016 at 8:24 Board Certified Radiologist. This report was verified electronically.
[2016-09-21] MEDS: THIAMINE HCL 100 MG TAB PO SCH (09:00)
[2016-09-21] MEDS: SERTRALINE HCL 50 MG TAB PO SCH (09:00)
[2016-09-21] MEDS: SODIUM CHLOR 0.9% 1000 ML INJ 1,000 ML IV SCH ×2 (09:00→18:51)
[2016-09-21] MEDS: MULTIVITAMIN TAB PO SCH (09:00)
[2016-09-21] MEDS: VALSARTAN 80 MG TAB PO SCH ×2 (09:00→20:47)
[2016-09-21] MEDS: DOCUSATE SODIUM 50 MG/SENNA 8.6 MG TAB PO SCH ×2 (09:00→20:47)
[2016-09-21] MEDS: SODIUM CHLORIDE 0.9% FLUSH 10 ML FLUSH IV FLUSH SCH ×2 (09:00→20:47)
[2016-09-21] MEDS: metFORMIN HCL 500 MG TAB PO SCH ×2 (09:00→17:31)
[2016-09-21] MEDS: ASPIRIN EC 81 MG TABEC PO SCH (09:00)
[2016-09-21] MEDS: amLODIPine BESYLATE 5 MG TAB PO SCH (09:01)
[2016-09-21] MEDS: LORazepam 1 MG TAB PO PRN ×3 (09:01→20:47)
--- NOTE | 2016-09-21 19:09 | HHI.PR ---
Subjective Remarks Patient feeling much better ,eating Objective Vitals GENERAL: SKIN: Warm and dry. HEAD: Atraumatic. Normocephalic. EYES: Pupils equal and round. No scleral icterus. No injection or drainage. ENT: No nasal bleeding or discharge. Mucous membranes pink and moist. NECK: Trachea midline. No JVD. CARDIOVASCULAR: Regular rate and rhythm. RESPIRATORY: No accessory muscle use. Clear to auscultation. Breath sounds equal bilaterally. GASTROINTESTINAL: Abdomen soft, non-tender, nondistended. Hepatic and splenic margins not palpable. MUSCULOSKELETAL: Extremities without clubbing, cyanosis, or edema. No obvious deformities. NEUROLOGICAL: Awake and alert. No obvious cranial nerve deficits. Motor grossly within normal limits. Five out of 5 muscle strength in the arms and legs. Normal speech. PSYCHIATRIC: Appropriate mood and affect; insight and judgment normal. Vital Signs Date Time Temp Pulse Resp B/P Pulse Ox O2 Delivery O2 Flow Rate FiO2 09/21/16 16:00 98.6 96 18 161/97 95 09/21/16 12:00 98.8 101 20 152/90 94 09/21/16 07:51 98.3 99 20 179/97 96 09/21/16 07:29 96 21 09/21/16 04:13 97.9 86 18 171/86 94 09/21/16 01:17 112 09/21/16 00:30 98.7 108 20 141/84 95 09/20/16 22:58 95 Nasal Cannula 2.00 09/20/16 21:04 122 16 140/97 94 Nasal Cannula 2 Result Diagram: 09/21/16 0749 09/21/16 0749 A/P Problem List: (1) Elevated LFTs Status: Acute Plan: related to etoh abuse ,CT abd no significant findings ,labs all improving (2) Hyponatremia Status: Acute Plan: related to component of dehydration and etoh abuse fluids given recheck labs (3) Alcohol withdrawal Status: Acute Plan: on protocol (4) Alcohol abuse Status: Chronic Plan: on protocol (5) HTN (hypertension) Status: Chronic Plan: continue home meds add clonidine prn (6) Diabetes Status: Chronic Plan: sliding scale with coverage for now (7) Hyponatremia Status: Acute Plan: resolved with IV fluid Assessment and Plan probable discharge tomorrow with f/u to PCP patient is interested in CP help for etoh abuse will refer as outpatient Discharge Planning as above Problem Qualifiers (1) Alcohol withdrawal: Qualified Code: F10.230 - Alcohol withdrawal, uncomplicated (2) Diabetes: Luis Mcdonald MD Sep 21, 2016 19:09
--- NOTE | 2016-09-21 19:51 | RADRPT ---
EXAM DATE/TIME: 09/21/2016 19:32 [facility] COMPARISON: CT ABDOMEN & PELVIS W/O CONTRAST, September 21, 2016, 8:14. INDICATIONS : Evaluate right lung, abnormal CT result. MEDICAL HISTORY : Cardiovascular disease. Hypertension. Diabetes mellitus type 2. SURGICAL HISTORY : None. ENCOUNTER: Initial ACUITY: 1 day PAIN SCORE: 0/10 LOCATION: Bilateral chest FINDINGS: The masslike opacity in the right lower lobe noted on the recent CT abdomen pelvis is not well evalua mitchel on the plain radiographs. There is increased density seen posteriorly on the lateral view. Osseou s structures are intact. Borderline cardiomegaly. Left lung is clear. Remote left rib fracture deform ities. CONCLUSION: Right lower lobe masslike opacity noted on the recent CT is not clearly visualized on this study thou gh there is increased density projecting over the spine on the lateral view. As described on the CT e xamination a short interval followup CT examination of the chest is recommended in 3 months. Pawel Alcala MD on September 21, 2016 at 19:48 Board Certified Radiologist. This report was verified electronically.
[2016-09-21] MEDS: PANTOPRAZOLE SODIUM 40 MG VIAL IV PUSH SCH (20:47)
[2016-09-21] MEDS: QUEtiapine FUMARATE 25 MG TAB PO SCH (20:48)
[2016-09-22] VITALS (12 sets, daily range): BP systolic 128–182; BP diastolic 81–102; PULSE 79–119; RESP 18–22; TEMP 97–98.7; O2SAT 92–96
[2016-09-22] MEDS: SODIUM CHLOR 0.9% 1000 ML INJ 1,000 ML IV SCH ×2 (03:42→14:51)
[2016-09-22] MEDS: INSULIN ASPART SUPPLEMENTAL SCALE SQ SCH ×4 (05:58→21:19)
[2016-09-22] MEDS: LEVOTHYROXINE SODIUM 88 MCG TAB PO SCH (06:22)
[2016-09-22 07:58] LABS: AUTOMATED NEUTROPHIL # 6.4 TH/MM3 (1.8-7.7); BASOPHIL # 0.2 TH/MM3 (0-0.2); EOSINOPHIL # 0.1 TH/MM3 (0-0.4); EOSINOPHIL % 1.9 % (0.0-4.0); HEMATOCRIT 38.5 % (39.0-51.0); HEMO FLAGS DIFF FINAL; LYMPH % 9.5 % (9.0-44.0); LYMPHOCYTE # 0.7 TH/MM3 (1.0-4.8); MEAN CELL VOLUME 92.5 FL (80.0-100.0); MEAN CORPUSCULAR HEMOGLOBIN 31.7 PG (27.0-34.0); MEAN CORPUSCULAR HGB CONC 34.2 % (32.0-36.0); MONO % 5.4 % (0.0-8.0); NEUT % 81.2 % (16.0-70.0); PLATELET COUNT 126 TH/MM3 (150-450); RED BLOOD COUNT 4.16 MIL/MM3 (4.50-5.90); RED CELL DISTRIBUTION WIDTH 14.7 % (11.6-17.2); WHITE BLOOD COUNT 7.8 TH/MM3 (4.0-11.0)
[2016-09-22 08:24] LABS: ALT (GPT) 114 U/L (12-78); ANION GAP 13 MEQ/L (5-15); AST (GOT) 335 U/L (15-37); BICARBONATE 27.2 MEQ/L (21.0-32.0); BLOOD UREA NITROGEN 19 MG/DL (7-18); CHLORIDE 100 MEQ/L (98-107); GLOMERULAR FILTRATION RATE 80 ML/MIN (>89); SODIUM (NA) 140 MEQ/L (136-145)
[2016-09-22 08:27] LABS: ALKALINE PHOSPHATASE 87 U/L (45-117); TOTAL BILIRUBIN ADULT 1.3 MG/DL (0.2-1.0)
[2016-09-22] MEDS: THIAMINE HCL 100 MG TAB PO SCH (09:46)
[2016-09-22] MEDS: VALSARTAN 80 MG TAB PO SCH ×2 (09:46→21:19)
[2016-09-22] MEDS: ASPIRIN EC 81 MG TABEC PO SCH (09:46)
[2016-09-22] MEDS: DOCUSATE SODIUM 50 MG/SENNA 8.6 MG TAB PO SCH ×2 (09:46→21:19)
[2016-09-22] MEDS: amLODIPine BESYLATE 5 MG TAB PO SCH (09:47)
[2016-09-22] MEDS: LORazepam 1 MG TAB PO PRN ×4 (09:47→23:17)
[2016-09-22] MEDS: SERTRALINE HCL 50 MG TAB PO SCH (09:47)
[2016-09-22] MEDS: MULTIVITAMIN TAB PO SCH (09:47)
[2016-09-22] MEDS: metFORMIN HCL 500 MG TAB PO SCH ×2 (09:47→19:01)
[2016-09-22] MEDS: SODIUM CHLORIDE 0.9% FLUSH 10 ML FLUSH IV FLUSH SCH ×2 (09:48→21:00)
[2016-09-22] MEDS ORDERED: ENALAPRILAT 1.25 MG/ML VIAL IV PRN (15:45)
[2016-09-22] MEDS ORDERED: cloNIDine HCL 0.2 MG TAB PO PRN (15:45)
--- NOTE | 2016-09-22 18:05 | HHI.PR ---
Subjective Remarks No new complaints. Objective Vitals Vital Signs Date Time Temp Pulse Resp B/P Pulse Ox O2 Delivery O2 Flow Rate FiO2 09/22/16 16:46 98.7 95 20 93 09/22/16 15:12 182/102 09/22/16 12:34 97.3 119 22 161/100 92 09/22/16 08:10 79 09/22/16 08:00 97.9 83 20 163/90 96 09/22/16 03:54 97.0 107 18 140/81 94 09/21/16 23:50 97.9 96 18 122/69 95 09/21/16 23:27 101 09/21/16 19:49 98.0 102 18 173/94 95 09/21/16 09/21/16 09/22/16 15:00 23:00 07:00 Intake Total 1200 ml Output Total 500 ml Balance 700 ml Intake Oral 1200 ml Output Urine Total 500 ml # Bowel Movements 1 Result Diagram: 09/22/16 0720 09/22/16 0720 Imaging Last Impressions Abdomen/Pelvis CT 09/21/16 0600 Signed Impressions: Service Date/Time: September 08:14 - CONCLUSION: 1. No acute abnormality. 2. Masslike area of consolidation involving the right lower lobe. Although this could relate to rounded atelectasis I cannot exclude other etiologies. I suggest a repeat CT of the thorax in 3 months to document stability/resolution. 3. Hepatic steatosis. 4. Colonic diverticulosis without acute inflammation. Luis Gardiner Jr., MD Chest X-Ray 09/21/16 0000 Signed Impressions: Service Date/Time: September 19:32 - CONCLUSION: Right lower lobe masslike opacity noted on the recent CT is not clearly visualized on this study though there is increased density projecting over the spine on the lateral view. As described on the CT examination a short interval followup CT examination of the chest is recommended in 3 months. Pawel Alcala MD Objective Remarks GENERAL: This is a well-nourished, well-developed patient, in no apparent distress. CARDIOVASCULAR: Regular rate and rhythm without murmurs, gallops, or rubs. RESPIRATORY: Clear to auscultation. Breath sounds equal bilaterally. No wheezes , rales, or rhonchi. GASTROINTESTINAL: Abdomen soft, non-tender, nondistended. Normal active bowel sounds MUSCULOSKELETAL: Extremities without clubbing, cyanosis, or edema. NEURO: Alert & Oriented x4 to person, place, time, situation. Moves all ext x4 A/P Problem List: (1) Alcohol withdrawal Status: Acute Plan: - continue [facility] protocol - f/u with [facility] upon discharge (2) HTN (hypertension) Status: Chronic Plan: - change norvasc to procardia XL - catapress, vasotec prn - observe - anticipate d/c in next 1-2 days (3) Elevated LFTs Status: Acute Plan: - related to etoh abuse - CT abd no significant findings - - labs all improving (4) Hyponatremia Status: Acute Plan: related to component of dehydration and etoh abuse - resolved (5) Diabetes Status: Chronic Plan: - SSI (6) Hypokalemia Status: Acute Plan: - replete - repeat BMP in AM (7) Atelectasis of right lung Status: Acute Plan: - abnormal finding on CT abd at [facility] - likely represents atelectasis - pt denies weight loss, sob, cough - will need f/u CT chest in 3 months Problem Qualifiers (1) Alcohol withdrawal: Qualified Code: F10.230 - Alcohol withdrawal, uncomplicated (2) Diabetes: Stephane Crandall DO Sep 22, 2016 18:05
[2016-09-22] MEDS: NIFEdipine 60 MG SUSTAINED RELEASE TAB PO SCH (19:01)
[2016-09-22] MEDS: POTASSIUM CHLORIDE 20 MEQ CONTROLLED RELEASE TAB PO SCH ×2 (19:01→23:17)
[2016-09-22] MEDS: QUEtiapine FUMARATE 25 MG TAB PO SCH (21:19)
[2016-09-22] MEDS: PANTOPRAZOLE SODIUM 40 MG VIAL IV PUSH SCH (23:16)
[2016-09-23 00:30] VITALS: BP 126/73; PULSE 100; RESP 18; TEMP 97.1; O2SAT 95
[2016-09-23 04:30] VITALS: BP 143/79; PULSE 92; RESP 18; TEMP 98.6; O2SAT 94
[2016-09-23] MEDS: INSULIN ASPART SUPPLEMENTAL SCALE SQ SCH ×2 (06:23→10:57)
[2016-09-23] MEDS: LEVOTHYROXINE SODIUM 88 MCG TAB PO SCH (07:00)
[2016-09-23 08:00] VITALS: BP 144/81; PULSE 77; RESP 18; TEMP 97.3; O2SAT 93
[2016-09-23 08:12] LABS: INDIRECT BILIRUBIN 0.7 MG/DL (0.0-0.8)
[2016-09-23] MEDS: LORazepam 1 MG TAB PO PRN (08:48)
[2016-09-23] MEDS: THIAMINE HCL 100 MG TAB PO SCH (08:49)
[2016-09-23] MEDS: SODIUM CHLORIDE 0.9% FLUSH 10 ML FLUSH IV FLUSH SCH (08:49)
[2016-09-23] MEDS: SERTRALINE HCL 50 MG TAB PO SCH (08:49)
[2016-09-23] MEDS: VALSARTAN 80 MG TAB PO SCH (08:49)
[2016-09-23] MEDS: metFORMIN HCL 500 MG TAB PO SCH (08:49)
[2016-09-23] MEDS: MULTIVITAMIN TAB PO SCH (08:49)
[2016-09-23] MEDS: ASPIRIN EC 81 MG TABEC PO SCH (08:49)
[2016-09-23] MEDS: NIFEdipine 60 MG SUSTAINED RELEASE TAB PO SCH (08:49)
[2016-09-23] MEDS: DOCUSATE SODIUM 50 MG/SENNA 8.6 MG TAB PO SCH (08:49)
[2016-09-23 10:01] VITALS: O2SAT 92
[2016-09-23 11:38] VITALS: BP 144/78; PULSE 79; RESP 18; TEMP 97.8; O2SAT 95
--- NOTE | 2016-09-23 15:49 | HHI.DS ---
Discharge Summary Admission Date Sep 20, 2016 at 20:53 Discharge Date: Sep 23, 2016 Admitting Diagnosis alcohol withdrawal, hyponatremia, elevated LFTs (1) Alcohol withdrawal Diagnosis: Principal (2) HTN (hypertension) Diagnosis: Principal (3) Elevated LFTs Diagnosis: Principal (4) Hyponatremia Diagnosis: Principal (5) Hypokalemia Diagnosis: Principal (6) Diabetes Diagnosis: Secondary (7) Atelectasis of right lung Diagnosis: Secondary Brief History 60 YO male with PMH of HTN, DM T2, COPD presents to the ED via EMS requesting detox from alcohol. Patient states that he drank a bottle of vodka and a bottle of wine since ~10:00 last night. He denies daily drinking. He has depression, but denies suicidal or homicidal ideation. Patient is on both seraquel and sertraline and ativan. On presentation he complains of frontal headache, similar to previous headaches. He states that he normally just " rides out" the pain. Denies other somatic complaints. Lab work reveals positive etoh level,[id number],significant elevation LFT placed on withdrawal protocol fluids given follow up labs ,CT non contrast abdomen,sliding scale insulin. CBC/BMP: 09/22/16 0720 09/22/16 0720 Significant Findings Laboratory Tests Test 09/20/16 09/21/16 09/22/16 09/23/16 18:40 07:49 07:20 07:25 White Blood Count 16.1 TH/MM3 11.3 TH/MM3 (4.0-11.0) (4.0-11.0) Neutrophils (%) (Auto) 87.6 % 87.7 % 81.2 % (16.0-70.0) (16.0-70.0) (16.0-70.0) Lymphocytes (%) (Auto) 7.7 % 6.3 % (9.0-44.0) (9.0-44.0) Neutrophils # (Auto) 14.1 TH/MM3 9.9 TH/MM3 (1.8-7.7) (1.8-7.7) Urine Protein 30 mg/dL (NEG-TRACE) Urine Ketones 10 mg/dL (NEG) Urine Occult Blood MOD (NEG) Urine Bacteria RARE /hpf (NONE) Sodium Level 124 MEQ/L (136-145) Potassium Level 3.4 MEQ/L 3.0 MEQ/L (3.5-5.1) (3.5-5.1) Chloride Level 80 MEQ/L 94 MEQ/L (98-107) (98-107) Anion Gap 22 MEQ/L (5-15) 16 MEQ/L (5-15) Blood Urea Nitrogen 23 MG/DL (7-18) 23 MG/DL (7-18) 19 MG/DL (7-18) Estimat Glomerular Filtration 60 ML/MIN (>89) 58 ML/MIN (>89) 80 ML/MIN (>89) Rate Total Bilirubin 1.4 MG/DL 1.4 MG/DL 1.3 MG/DL (0.2-1.0) (0.2-1.0) (0.2-1.0) Aspartate Amino Transf 1059 U/L 599 U/L (15-37) 335 U/L (15-37) 199 U/L (15-37) (AST/SGOT) (15-37) Alanine Aminotransferase 189 U/L () 146 U/L (-78) 114 U/L (78) 100 U/ L (-78) (ALT/SGPT) Total Protein 8.3 GM/DL (6.4-8.2) Red Blood Count 4.21 MIL/MM3 4.16 MIL/MM3 (4.50-5.90) (4.50-5.90) Lymphocytes # (Auto) 0.7 TH/MM3 0.7 TH/MM3 (1.0-4.8) (1.0-4.8) Random Glucose 136 MG/DL 134 MG/DL (74-106) (74-106) Calcium Level 8.3 MG/DL 8.2 MG/DL (8.5-10.1) (8.5-10.1) Albumin 3.3 GM/DL 2.9 GM/DL 2.9 GM/DL (3.4-5.0) (3.4-5.0) (3.4-5.0) Hematocrit 38.5 % (39.0-51.0) Platelet Count 126 TH/MM3 (150-450) Direct Bilirubin 0.3 MG/DL (0.0-0.2) PE at Discharge GENERAL: This is a well-nourished, well-developed patient, in no apparent distress. CARDIOVASCULAR: Regular rate and rhythm without murmurs, gallops, or rubs. RESPIRATORY: Clear to auscultation. Breath sounds equal bilaterally. No wheezes , rales, or rhonchi. GASTROINTESTINAL: Abdomen soft, non-tender, nondistended. Normal active bowel sounds MUSCULOSKELETAL: Extremities without clubbing, cyanosis, or edema. NEURO: Alert & Oriented x4 to person, place, time, situation. Moves all ext x4 Hospital Course (1) Alcohol withdrawal - Pt received ativan per [facility] protocol - f/u with [facility] mental health upon discharge - MVI, thiamine, folate OTC upon discharge (2) HTN (hypertension) Status: Chronic Plan: - changed norvasc to procardia XL - continue procardia upon discharge (3) Elevated LFTs Status: Acute Plan: - related to etoh abuse - CT abd no significant findings - - continues to improve (4) Hyponatremia Status: Acute Plan: related to component of dehydration and etoh abuse - resolved (5) Diabetes - resume outpt oral hypoglycemics upon discharge (6) Hypokalemia - Pt received supplemental potassium - repeat BMP and LFTs next week (7) Atelectasis of right lung Status: Acute Plan: - abnormal finding on CT abd at [facility] - likely represents atelectasis - pt denies weight loss, sob, cough - will need f/u CT chest in 3 months Pt Condition on Discharge: Stable Discharge Disposition: Discharge Home Discharge Instructions DIET: Follow Instructions for: Heart Healthy Diet Activities you can perform: Regular-No Restrictions Follow up Referrals: PCP Follow-up - [address] [facility] Adult - 1 Week with [facility] mental health New Medications: Folic Acid (Folic Acid) 1 Mg Tablet 1 MG PO DAILY etoh Days 30 Ref 0 MG Nifedipine ER 24 HR (Nifedipine ER 24 HR) 60 Mg Tab 60 MG PO DAILY htn #30 Ref 0 TAB Continued Medications: Aspirin DR (Aspirin DR) 81 Mg Tabdr 81 MG PO DAILY Ref 0 TAB Levothyroxine (Levothyroxine) 88 Mcg Tab 88 MCG PO DAILY Thyroid #30 Ref 0 TAB Metformin (Glucophage) 500 Mg Tab 500 MG PO BIDPC With meals Blood Sugar Management #60 Ref 0 TAB Multiple Vitamin (Multiple Vitamin) 1 Tab 1 TAB PO DAILY Nutritional Supplement #30 Ref 0 TAB Pantoprazole (Protonix) 40 Mg Tab 40 MG PO DAILY Reflux #30 Ref 0 TAB Sertraline (Sertraline) 25 Mg Tab 50 MG PO DAILY depression #30 Ref 0 TAB Thiamine (Vitamin B-1) 100 Mg Tab 100 MG PO DAILY Nutritional Supplement Ref 0 TAB Valsartan (Diovan) 80 Mg Tab 80 MG PO BID #60 Ref 0 TAB Discontinued Medications: Amlodipine (Amlodipine) 5 Mg Tab 5 MG PO DAILY Blood Pressure Management #30 Ref 0 TAB Stephane Crandall DO Sep 23, 2016 15:49
[2016-09-23 16:00] VITALS: BP 156/88; PULSE 97; RESP 20; TEMP 98.9; O2SAT 96
[2016-09-23] MEDS ORDERED: FOLI1TAB6 PO (16:01)
[2016-09-23] MEDS ORDERED: NIFE60TA8 PO (16:01)
--- NOTE | 2016-09-23 16:05 | HHI.DCPOC ---
Discharge Care Plan Diagnosis: (1) Abnormal CT scan of lung (2) Elevated LFTs (3) HTN (hypertension) (4) Alcohol dependence Goals to Promote Your Health * To prevent worsening of your condition and complications * To maintain your health at the optimal level Directions to Meet Your Goals Take your medications as prescribed Follow your dietary instruction Follow activity as directed Keep your appointments as scheduled Take your immunizations and boosters as scheduled If your symptoms worsen call your PCP, if no PCP go to Urgent Care Center or Emergency Room Smoking is Dangerous to Your Health. Avoid second hand smoke Call the 24-hour hour crisis hotline for domestic abuse at Stephane Crandall DO Sep 23, 2016 16:05
[2016-09-23] MEDS ORDERED: SERO25TA PO (16:21)
== END 2016-09-23 17:01 | disposition home or self-care (01) | DRG 897 ==
LOC: NEPD 12:27 → NEDA 20:53 → NEPHCDU 23:52 → N06A 09-22 22:19
PROVIDERS: ADMIT Hospitalist; ATTEND Hospitalist
DX: F10.230 Alcohol dependence with withdrawal, uncomplicated (principal); Z99.81 Dependence on supplemental oxygen; E87.1 Hypo-osmolality and hyponatremia; J98.11 Atelectasis; I10 Essential (primary) hypertension; R79.89 Other specified abnormal findings of blood chemistry; R00.0 Tachycardia, unspecified; Y90.8 Blood alcohol level of 240 mg/100 ml or more; J44.9 Chronic obstructive pulmonary disease, unspecified; E11.9 Type 2 diabetes mellitus without complications; Z72.0 Tobacco use; G47.30 Sleep apnea, unspecified; G40.909 Epilepsy, unspecified, not intractable, without status epilepticus; G47.00 Insomnia, unspecified; K21.9 Gastro-esophageal reflux disease without esophagitis; Z86.73 Personal history of transient ischemic attack (TIA), and cerebral infarction without residual deficits; F41.9 Anxiety disorder, unspecified; F32.9 Major depressive disorder, single episode, unspecified; E86.0 Dehydration; E03.9 Hypothyroidism, unspecified; E87.6 Hypokalemia
CPT/HCPCS: 71020; 74176; 80053; 80076; 80307; 81001; 82140; 82948; 85025; 96361; 96374; 96375; C9113; J1815; J2060; J2405; J7030

== ENCOUNTER 2016-10-04 18:38 | Emergency (ER) | payer OTHER ==
[~2016-10-04] VITALS: Ht 177.8 cm; Wt 105.0 kg
[~2016-10-04 18:38] MED LIST changes: -AMLO5TAB2 PO; -CHLO25CA2 PO; -FOLI1TAB4 PO; +FOLI1TAB6 PO; -LORA-474 PO; +NIFE60TA8 PO; -SERO100T PO; +SERO25TA PO; -SERO50TA PO
[2016-10-04 19:42] VITALS: BP 174/100; PULSE 120; RESP 20; TEMP 98; O2SAT 95
[2016-10-04] MEDS ORDERED: SODIUM CHLOR 0.9% 1000 ML INJ 1,000 ML IV ONE (20:00)
[2016-10-04] MEDS ORDERED: LORazepam 1 MG TAB PO ONE ×2 (20:00→22:15)
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
--- NOTE | 2016-10-04 20:58 | RADRPT ---
EXAM DATE/TIME: 10/04/2016 20:16 [facility] COMPARISON: CT BRAIN W/O CONTRAST, June 28, 2016, 20:58. CT BRAIN W/O CONTRAST, July 11, 2016, 3:48. CT ABDOMEN & PELVIS W/O CONTRAST, September 21, 2016, 8:14. CT BRAIN W/O CONTRAST, August 06, 2016, 18:25. INDICATIONS : Trauma, fall. Laceration to forehead. RADIATION DOSE: 51.05 CTDIvol (mGy) MEDICAL HISTORY : Cerebrovascular disease. Seizures. Hypertension. SURGICAL HISTORY : None. ENCOUNTER: Initial ACUITY: 1 day PAIN SCALE: 0/10 LOCATION: cranial TECHNIQUE: Multiple contiguous axial images were obtained of the head. Using automated exposure control and adj ustment of the mA and/or kV according to patient size, radiation dose was kept as low as reasonably a chievable to obtain optimal diagnostic quality images. DICOM format image data is available electro nically for review and comparison. FINDINGS: CEREBRUM: Mild central cortical atrophy. 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 There is ex vacuo en largement of the right lateral ventricle. No evidence of acute blood products. No extra-axial fluid or blood. The intracranial vessels are minimally dense, but similar in appearance to several prior CT scans. POSTERIOR FOSSA: The cerebellum and brainstem are intact. The 4th ventricle is midline. The cerebellopontine angle i s unremarkable. EXTRACRANIAL: The visualized portion of the orbits is intact. SKULL: The calvaria is intact. No evidence of skull fracture. CONCLUSION: 1. 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 2. No acute findings in the brain. Luis Nielsen MD on October 04, 2016 at 20:53 Board Certified Radiologist. This report was verified electronically.
[2016-10-04 21:19] LABS: ANION GAP 16 MEQ/L (5-15); AST (GOT) 52 U/L (15-37); BICARBONATE 26.1 MEQ/L (21.0-32.0); BLOOD UREA NITROGEN 19 MG/DL (7-18); CHLORIDE 91 MEQ/L (98-107); GLOMERULAR FILTRATION RATE 65 ML/MIN (>89); POTASSIUM 3.9 MEQ/L (3.5-5.1); SODIUM (NA) 133 MEQ/L (136-145)
[2016-10-04 21:21] LABS: ALT (GPT) 53 U/L (12-78)
[2016-10-04 21:25] LABS: ALKALINE PHOSPHATASE 117 U/L (45-117); TOTAL BILIRUBIN ADULT 0.7 MG/DL (0.2-1.0)
--- NOTE | 2016-10-04 21:42 | PD ---
Data Data Last Documented VS Vital Signs Date Time Temp Pulse Resp B/P Pulse Ox O2 Delivery O2 Flow Rate FiO2 10/05/16 02:05 120 18 154/90 97 Room Air 10/04/16 19:[address] Brain W/O Iv Contrast(Rout) (10/04/16 ) Comprehensive Metabolic Panel (10/04/16 19:55) Alcohol (Ethanol) (10/04/16 19:55) Iv Access Insert/Monitor (10/04/16 19:55) Sodium Chlor 0.9% 1000 Ml Inj (Ns 1000 M (10/04/16 20:00) Lorazepam (Ativan) (10/04/16 20:00) Lorazepam (Ativan) (10/04/16 22:15) Quetiapine (Seroquel) (10/04/16 23:45) Metformin (Glucophage) (10/04/16 23:45) Ondansetron Odt (Zofran Odt) (10/05/16 00:15) Labs Laboratory Tests Test 10/04/16 20:30 Sodium Level 133 MEQ/L Potassium Level 3.9 MEQ/L Chloride Level 91 MEQ/L Carbon Dioxide Level 26.1 MEQ/L Anion Gap 16 MEQ/L Blood Urea Nitrogen 19 MG/DL Creatinine 1.15 MG/DL Estimat Glomerular Filtration 65 ML/MIN Rate Random Glucose 244 MG/DL Calcium Level 9.3 MG/DL Total Bilirubin 0.7 MG/DL Aspartate Amino Transf 52 U/L (AST/SGOT) Alanine Aminotransferase 53 U/L (ALT/SGPT) Alkaline Phosphatase 117 U/L Total Protein 8.1 GM/DL Albumin 3.9 GM/DL Ethyl Alcohol Level 349 MG/DL MDM Supervised Visit with MIKA: Yes Narrative Course I, Dr. Bryant, have reviewed the advance practice practitioner's documentation and am in agreement, met with the patient face to face, made the diagnosis, and the medical decision making was done by me. *My assessment and Findings: Patient is a 60-year-old male who on my initial evaluation sleeping soundly but easily arousable, mildly tachycardic. States she's been anxious recently. His alcohol level is 349 drawn at 2030. My calculations is (legal sobriety somewhere between 6 and 6:30. He awoke approximately midnight very agitated saying he wanted to leave and we didn't have any legal reason to keep him here. He states he wanted to take a cab. I'm on satisfied that this is a safe discharge this patient at this time. He is called his who may or may not come to get him. If he continues to want her agitated I may have no choice but to sedate and restrain him for his own safety as he is too intoxicated to discharge to his own person. I reviewed his CT of his head is negative. We'll continue to observe him for sobriety and/or a safe discharge. Condition: Stable Darnell Bryant MD Oct 04, 2016 21:42
[2016-10-04 22:30] VITALS: BP 151/90; PULSE 122; RESP 18; O2SAT 95
[2016-10-04] MEDS ORDERED: QUET1TAB7 PO (22:57)
[2016-10-04] MEDS ORDERED: metFORMIN HCL 500 MG TAB PO ONE (23:45)
[2016-10-04] MEDS: QUEtiapine FUMARATE 25 MG TAB PO ONE (23:45)
[2016-10-05] MEDS ORDERED: ONDANSETRON ODT 4 MG TAB PO ONE (00:15)
[2016-10-05] MEDS: QUEtiapine FUMARATE 25 MG TAB PO ONE (01:47)
--- NOTE | 2016-10-05 01:52 | PD ---
Physical Exam Date Seen by Provider: Oct 05, 2016 Time Seen by Provider: 01:50 Data Data Last Documented VS Vital Signs Date Time Temp Pulse Resp B/P Pulse Ox O2 Delivery O2 Flow Rate FiO2 10/04/16 22:30 122 18 151/90 95 Room Air 10/04/16 19:[address] Brain W/O Iv Contrast(Rout) (10/04/16 ) Comprehensive Metabolic Panel (10/04/16 19:55) Alcohol (Ethanol) (10/04/16 19:55) Iv Access Insert/Monitor (10/04/16 19:55) Sodium Chlor 0.9% 1000 Ml Inj (Ns 1000 M (10/04/16 20:00) Lorazepam (Ativan) (10/04/16 20:00) Lorazepam (Ativan) (10/04/16 22:15) Quetiapine (Seroquel) (10/04/16 23:45) Metformin (Glucophage) (10/04/16 23:45) Ondansetron Odt (Zofran Odt) (10/05/16 00:15) Labs Laboratory Tests Test 10/04/16 20:30 Sodium Level 133 MEQ/L Potassium Level 3.9 MEQ/L Chloride Level 91 MEQ/L Carbon Dioxide Level 26.1 MEQ/L Anion Gap 16 MEQ/L Blood Urea Nitrogen 19 MG/DL Creatinine 1.15 MG/DL Estimat Glomerular Filtration 65 ML/MIN Rate Random Glucose 244 MG/DL Calcium Level 9.3 MG/DL Total Bilirubin 0.7 MG/DL Aspartate Amino Transf 52 U/L (AST/SGOT) Alanine Aminotransferase 53 U/L (ALT/SGPT) Alkaline Phosphatase 117 U/L Total Protein 8.1 GM/DL Albumin 3.9 GM/DL Ethyl Alcohol Level 349 MG/DL [facility] Medical Record Reviewed: Yes Supervised Visit with MIKA: Yes Differential Diagnosis . Narrative Course The patient's showed up at 1:50 AM and has agreed to take the patient home. The patient's appears sober and appropriate. The patient is released into his 's custody. This is alcohol intoxication Diagnosis Primary Impression: Alcohol intoxication Qualified Code: F10.920 - Alcohol intoxication, uncomplicated Patient Instructions: General Instructions Additional Instruction: Rest. Increase fluids. Avoid alcohol. Avoid illegal substances. Follow-up with [facility] for detox. Do not operate a car or any heavy machinery under the influence of alcohol or drugs. Follow-up with a medical doctor this week. Return to the ER for emergencies Disposition: 01 DISCHARGE HOME Condition: Stable Jae Olvera Oct 05, 2016 01:52
[2016-10-05 02:05] VITALS: BP 154/90; PULSE 120; RESP 18; O2SAT 97
== END 2016-10-05 02:06 | disposition home or self-care (01) ==
LOC: NEPD 18:38
DX: F10.120 Alcohol abuse with intoxication, uncomplicated (principal); Y90.8 Blood alcohol level of 240 mg/100 ml or more; E11.9 Type 2 diabetes mellitus without complications; I10 Essential (primary) hypertension; J44.9 Chronic obstructive pulmonary disease, unspecified; K21.9 Gastro-esophageal reflux disease without esophagitis; Z79.82 Long term (current) use of aspirin; Z86.73 Personal history of transient ischemic attack (TIA), and cerebral infarction without residual deficits; Z88.0 Allergy status to penicillin; Z87.891 Personal history of nicotine dependence
CPT/HCPCS: 70450; 80053; 80307; 96360; 99285; J7030

== ENCOUNTER 2016-10-06 18:27 | Emergency (ER) | payer OTHER ==
[~2016-10-06] VITALS: Ht 175.3 cm; Wt 100.0 kg
[~2016-10-06 18:27] MED LIST changes: +QUET1TAB7 PO; -SERO25TA PO
[2016-10-06 18:34] VITALS: BP 156/109; PULSE 104; RESP 16; TEMP 97.8; O2SAT 98
== END 2016-10-06 20:45 | disposition left against medical advice (07) ==
LOC: NEDAMB 18:27
DX: Z53.21 Procedure and treatment not carried out due to patient leaving prior to being seen by health care provider (principal)
CPT/HCPCS: 99281

== ENCOUNTER 2016-10-07 21:11 | Emergency (ER) | payer OTHER ==
[2016-10-07 21:13] VITALS: BP 169/93; PULSE 104; RESP 16; TEMP 98.7; O2SAT 94
== END 2016-10-07 23:57 | disposition left against medical advice (07) ==
LOC: NED 21:11
DX: Z00.8 Encounter for other general examination (principal); Z53.21 Procedure and treatment not carried out due to patient leaving prior to being seen by health care provider
CPT/HCPCS: 99281

== ENCOUNTER 2016-10-08 00:49 | Emergency (ER) | payer OTHER ==
[~2016-10-08] VITALS: Ht 177.8 cm; Wt 104.5 kg
[2016-10-08 01:06] VITALS: BP 194/116; PULSE 125; RESP 20; TEMP 98.7; O2SAT 95
--- NOTE | 2016-10-08 01:26 | PD ---
HPI Chief Complaint: Psychiatric Symptoms Time Seen by Provider: 01:00 Travel History International Travel<30 days: No Contact w/Intl Traveler<30days: No Traveled to known affect area: No History of Present Illness HPI 60-year-old male presents under Barron act initially by the placed on a. He is here frequently for alcohol related issues. His Barron act reports that he has been calling 911 multiple times requesting alcohol detoxification. Today he said that he was going to kill himself and therefore he was placed under Barron act. The patient reports that he has been upset in regards to marital issues. He endorses very frequent alcohol use. He has no other complaints at this time. PFSH Past Medical History Asthma: No Blood Disorders: No Anxiety: Yes Depression: Yes Heart Rhythm Problems: No Cancer: No High Cholesterol: No Chest Pain: No Congestive Heart Failure: No COPD: Yes Cerebrovascular Accident: Yes (2011) Diabetes: Yes (type 2) Patient Takes Glucophage: Yes Diminished Hearing: No Endocrine: No Gastrointestinal Disorders: Yes GERD: Yes Genitourinary: No Headaches: Yes Hepatitis: No Hiatal Hernia: No Hypertension: Yes Immune Disorder: No Inguinal Hernia: Yes (Inguinal hernia repair) Implanted Vascular Access Dvce: Yes Insomnia: Yes Musculoskeletal: No Neurologic: Yes Reproductive: No Migraines: No Myocardial Infarction: No Seizures: Yes Sleep Apnea: Yes Thyroid Disease: Yes (hypothyroid) Ulcer: No Tetanus Vaccination: Unknown Past Surgical History Abdominal Surgery: Yes (Inguinal hernia repair) AICD: No Appendectomy: No Arteriovenous Shunt: No Cardiac Surgery: No Cholecystectomy: No Ear Surgery: No Endocrine Surgery: No Eye Surgery: Yes (CORRECTIVE EYE SURGERY (LASIX)) Genitourinary Surgery: No Gynecologic Surgery: No Insulin Pump: No Joint Replacement: No Oral Surgery: Yes (tonsilectomy) Pacemaker: No Thoracic Surgery: No Tonsillectomy: Yes Other Surgery: Yes (sinus surgery) Social History Alcohol Use: Yes (drinks vodka on his "bad days" which outnumber his "good days " ) Tobacco Use: No (pt stated he quit 14 years ago ) Substance Use: No Allergies-Medications (Allergen,Severity, Reaction): Coded Allergies: Erythromycin (Verified Allergy, Severe, Hives, 10/07/16) Penicillin (Verified Allergy, Severe, Hives, 10/07/16) Reported Meds & Prescriptions Reported Meds & Active Scripts Active Folic Acid 1 Mg Tablet 1 Mg PO DAILY 30 Days Nifedipine ER 24 HR (Nifedipine) 60 Mg Tab 60 Mg PO DAILY Multiple Vitamin 1 Tab 1 Tab PO DAILY Sertraline (Sertraline HCl) 25 Mg Tab 50 Mg PO DAILY Protonix (Pantoprazole Sodium) 40 Mg Tab 40 Mg PO DAILY Levothyroxine (Levothyroxine Sodium) 88 Mcg Tab 88 Mcg PO DAILY Glucophage (Metformin HCl) 500 Mg Tab 500 Mg PO BIDPC With meals Diovan (Valsartan) 80 Mg Tab 80 Mg PO BID Reported Quetiapine (Quetiapine Fumarate) 25 Mg Tab 75 Mg PO HS Aspirin DR (Aspirin) 81 Mg Tabdr 81 Mg PO DAILY Vitamin B-1 (Thiamine HCl) 100 Mg Tab 100 Mg PO DAILY Review of Systems Except as stated in HPI: all other systems reviewed are Neg Physical Exam Narrative GENERAL: Somewhat disheveled-appearing male who is in no acute distress. He is intoxicated. SKIN: Warm and dry. Old Linear abrasion noted to the right forehead. HEAD: Atraumatic. Normocephalic. EYES: Pupils equal and round. No scleral icterus. No injection or drainage. ENT: No nasal bleeding or discharge. Mucous membranes pink and moist. NECK: Trachea midline. No JVD. CARDIOVASCULAR: Regular rate and rhythm. No murmur appreciated. RESPIRATORY: No accessory muscle use. Clear to auscultation. Breath sounds equal bilaterally. GASTROINTESTINAL: Abdomen soft, non-tender, nondistended. Hepatic and splenic margins not palpable. MUSCULOSKELETAL: No obvious deformities. No clubbing. No cyanosis. No edema. NEUROLOGICAL: Awake and alert. No obvious cranial nerve deficits. Motor grossly within normal limits. Slurred speech. PSYCHIATRIC: Intoxicated. Insight and judgment appear reasonable. Data Data Last Documented VS Vital Signs Date Time Temp Pulse Resp B/P Pulse Ox O2 Delivery O2 Flow Rate FiO2 10/08/16 01:06 98.7 125 20 194/116 95 Orders Basic Metabolic Panel (Bmp) (10/08/16 01:07) Alcohol (Ethanol) (10/08/16 01:07) Drug Screen, Random Urine (10/08/16 01:07) Psych Screen (10/08/16 01:07) Ondansetron Inj (Zofran Inj) (10/08/16 01:30) Labs Laboratory Tests Test 10/08/16 01:11 Sodium Level 137 MEQ/L Potassium Level 3.3 MEQ/L Chloride Level 95 MEQ/L Carbon Dioxide Level 26.4 MEQ/L Anion Gap 16 MEQ/L Blood Urea Nitrogen 16 MG/DL Creatinine 0.88 MG/DL Estimat Glomerular Filtration 89 ML/MIN Rate Random Glucose 135 MG/DL Calcium Level 8.2 MG/DL Ethyl Alcohol Level 334 MG/DL MDM Medical Decision Making Medical Screen Exam Complete: Yes Emergency Medical Condition: Yes Medical Record Reviewed: Yes Differential Diagnosis Alcohol intoxication, adjustment reaction, acute psychosis, major depressive disorder Narrative Course 60-year-old male presents under a Barron act for evaluation of suicidal ideation. He has been seen here multiple times recently. He was admitted here recently for hyponatremia. We will recheck his electrolytes and then he will be medically cleared for psychiatric disposition. Diagnosis Primary Impression: Alcohol intoxication Qualified Code: F10.920 - Alcoholic intoxication without complication Jackson Ellis Oct 08, 2016 01:25
[2016-10-08] MEDS ORDERED: ONDANSETRON HCL 4 MG/2 ML VIAL IV PUSH ONE ×2 (01:30→09:30)
[2016-10-08 02:14] LABS: BICARBONATE 26.4 MEQ/L (21.0-32.0); POTASSIUM 3.3 MEQ/L (3.5-5.1)
[2016-10-08] MEDS ORDERED: SODIUM CHLOR 0.9% 1000 ML INJ 1,000 ML IV SCH (02:29)
[2016-10-08] MEDS ORDERED: POTASSIUM CHLORIDE 20 MEQ CONTROLLED RELEASE TAB PO ONE (02:30)
[2016-10-08 04:47] LABS: AMPHETAMINE, URINE NEG (NEG); BARBITURATES, URINE NEG (NEG); COCAINE, URINE NEG (NEG)
[2016-10-08] MEDS ORDERED: PROMETHAZINE HCL 25 MG TAB PO ONE (05:00)
[2016-10-08 06:14] VITALS: BP 172/98
[2016-10-08] MEDS ORDERED: LORazepam 2 MG/ML VIAL IV PUSH ONE (06:15)
[2016-10-08] MEDS ORDERED: LORazepam 1 MG TAB PO PRN (09:15)
[2016-10-08] MEDS ORDERED: FLUMAZENIL 0.5 MG/5 ML VIAL IV PUSH PRN (09:15)
[2016-10-08] MEDS ORDERED: LORazepam 2 MG/ML VIAL IV PUSH PRN ×4 (09:15)
[2016-10-08 09:33] VITALS: BP 169/101; PULSE 108; RESP 17; TEMP 98.9; O2SAT 95
[2016-10-08] MEDS: LORazepam 2 MG TAB PO PRN ×2 (09:45→12:22)
[2016-10-08 11:09] VITALS: BP 159/95
[2016-10-08] MEDS ORDERED: ONDANSETRON HCL 4 MG/2 ML VIAL IV ONE (12:15)
--- NOTE | 2016-10-08 13:03 | PD.PSY.CON ---
Provisional Diagnosis Admission Date Date of consultation 10/08/2016 [place] I. 1. Alcohol dependence [place] II. Deferred History of Present Illness Service Psychiatry Consult Requested By Emergency department Reason for Consult Barron act Primary Care Physician Unknown HPI Mr. Canseco is a 60-year-old male with a reported history of depression and alcohol use disorder who presents under a Barron act from [facility] alleging that the patient has called 911 multiple times requesting treatment for alcohol detoxification. He later called 911 and said that he was suicidal per the Barron act. Reviewing the electronic medical record , I note the patient was seen most recently in consultation by Dr. Pulliam under similar circumstances. His alcohol level on presentation here was 334. Patient seen and examined. Chart reviewed. There has been no evidence of any suicidality or homicidality while the patient has been under observation in the emergency department. On my examination today, the patient is clinically sober. He denies any suicidal or homicidal ideation, intent or plan on direct questioning and contracts for safety. He says that his plan is to go into [facility], although he says he cannot go there directly from the ED as he has no clothes. He insists that the flight dispatcher misinterpreted what he was saying. He maintains that he instead said "I'm killing myself with my drinking." Mood is perhaps slightly depressed, but there are no symptoms of severe depression at this time. No hypomanic or manic symptoms. He denies any audiovisual hallucinations, and I can elicit no delusional beliefs. The remainder of psychiatric ROS is negative. Patient is requesting discharge from the emergency department today. Past psychiatric history: The patient reports that he has a previous diagnosis of depression. He follows with Dr. Alaniz, although he reports he has been nonadherent with his prescribed psychotropics. He cannot recall the last time he was psychiatrically admitted. He denies a history of suicide attempts. Family history: The patient reports family history of depression in his mother and father. No family history of substance use disorder. No reported family history of suicide. Chemical dependency history: Patient describes himself as a binge drinker. Says he drinks vodka. When he does drink, he can consume up to 2 gallons of vodka in a day. He denies history of blackouts. Denies history of DTs or seizures. Denies any other substance use. Social history: Patient reports that he lives alone. He is from his . He has no children. 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 He denies any history. Denies any legal history. Denies any access to guns or firearms. Review of Systems Except as stated in HPI: all other systems reviewed are Neg Past Family Social History Coded Allergies: Erythromycin (Verified Allergy, Severe, Hives, 10/07/16) Penicillin (Verified Allergy, Severe, Hives, 10/07/16) Past Medical History See electronic medical record Active Scripts Folic Acid 1 Mg Tablet1 Mg PO DAILY 30 Days Ref 0 Prov:Stephane Crandall DO 09/23/16 Nifedipine ER 24 HR 60 Mg Tab60 Mg PO DAILY #30 TAB Ref 0 Prov:Stephane Crandall DO 09/23/16 Multiple Vitamin 1 Tab1 Tab PO DAILY #30 TAB Ref 0 Prov:Megan Carr 06/02/16 Sertraline 25 Mg Tab50 Mg PO DAILY #30 TAB Ref 0 Prov:Megan Carr 06/02/16 Pantoprazole (Protonix)40 Mg Tab40 Mg PO DAILY #30 TAB Ref 0 Prov:Megan Carr 06/02/16 Levothyroxine 88 Mcg Tab88 Mcg PO DAILY #30 TAB Ref 0 Prov:Megan Carr 06/02/16 Metformin (Glucophage)500 Mg Oij288 Mg PO BIDPC #60 TAB Ref 0 With meals Prov:Megan Carr 06/02/16 Valsartan (Diovan)80 Mg Tab80 Mg PO BID #60 TAB Ref 0 Prov:Megan Carr 06/02/16 Reported Medications Quetiapine 25 Mg Tab75 Mg PO HS Ref 0 10/04/[address] 81 Mg Tabdr81 Mg PO DAILY Ref 0 08/06/16 Thiamine (Vitamin B-1)100 Mg Xia547 Mg PO DAILY Ref 0 08/06/16 Discontinued Scripts Quetiapine (Seroquel)25 Mg Tab25 Mg PO HS #7 TAB Ref 0 Prov:Stephane Crandall DO 09/23/16 Current Medications Medications (Trade) Dose Ordered Sig/Tonja Route Start Time Stop Time Status Last Admin (Romazicon Inj) 0.2 mg Q1M PRN IV PUSH 10/08/16 09:15 (Ativan) 1 mg Q4H PRN PO 10/08/16 09:15 (Ativan Inj) 1 mg Q4H PRN IV PUSH 10/08/16 09:15 (Ativan) 2 mg Q2H PRN PO 10/08/16 09:15 10/08/16 12:22 (Ativan Inj) 2 mg Q2H PRN IV PUSH 10/08/16 09:15 (Ativan Inj) 2 mg Q1H PRN IV PUSH 10/08/16 09:15 (Ativan Inj) 2 mg Q15M PRN IV PUSH 10/08/16 09:15 Patient's Strengths (min. 2) Able to access clinical care. Verbally fluent. Physical Exam Physical exam completed by ED provider. On my examination today, the patient appears to be mildly diaphoretic and slightly tremulous but with no other signs of withdrawal. No other motor abnormalities noted. Laboratories and vital signs reviewed: Vital Signs Vital Signs Date Time Temp Pulse Resp B/P Pulse Ox O2 Delivery O2 Flow Rate FiO2 10/08/16 11:09 159/95 10/08/16 09:33 98.9 108 17 95 Room Air Lab Results Laboratory Tests Test 10/08/16 10/08/16 01:11 04:17 Sodium Level 137 MEQ/L Potassium Level 3.3 MEQ/L Chloride Level 95 MEQ/L Carbon Dioxide Level 26.4 MEQ/L Anion Gap 16 MEQ/L Blood Urea Nitrogen 16 MG/DL Creatinine 0.88 MG/DL Estimat Glomerular Filtration 89 ML/MIN Rate Random Glucose 135 MG/DL Calcium Level 8.2 MG/DL Ethyl Alcohol Level 334 MG/DL Urine Opiates Screen NEG Urine Barbiturates Screen NEG Urine Amphetamines Screen NEG Urine Benzodiazepines Screen NEG Urine Cocaine Screen NEG Urine Cannabinoids Screen NEG Mental Status Examination Patient is in hospital gown. Patient is well groomed. He is maintaining basic hygiene Patient is awake and alert and oriented to person and hospital at least. No evidence of delirium. No motor abnormalities appreciated. Speech is within normal limits for rate, tone, volume. Language and fund of knowledge average. Focus and concentration intact. Memory grossly intact on clinical exam. Mood is somewhat down but not severely depressed. Affect is full and reactive. Thought processes linear. No delusions elicited. Denies audiovisual hallucinations and does not appear internally stimulated. Denies suicidal or homicidal ideation, intent, or plan and contracts for safety. Insight and judgment seem fair. Assessment & Plan Problem List: (1) Alcohol dependence ICD Code: F10.20 Assessment & Plan This is a 60-year-old male with psychiatric history as detailed above who presents under a Barron act. On my examination today, the patient is clinically sober and in mild withdrawal. There is no evidence of perceptual disturbance or delirium associated with the withdrawal. He denies any suicidal or homicidal ideation. There is no evidence of any unstable mental illness as defined under the Barron act. He appears to be attending to his basic needs. 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 I have lifted the Barron act. I have recommended that the patient allow us to get him directly to a detoxification center for management of his alcohol dependence with withdrawal , but he has declined. I have recommended that he pursue chemical dependency evaluation and treatment at the highest level that he is able after discharge, ideally in the context of a residential rehabilitation program. I have counseled the patient follow-up with Dr. Alaniz. I have counseled the patient to return to the psychiatric emergency room for any concerning psychiatric symptoms as part of the general safety plan. The patient is otherwise psychiatrically clear for discharge from the ED. Thank you very much for this consultation. Problem Qualifiers (1) Alcohol dependence: Qualified Code: F10.230 - Alcohol dependence with uncomplicated withdrawal Zac Bliss MD Oct 08, 2016 13:03
== END 2016-10-08 13:32 | disposition home or self-care (01) ==
LOC: NEPD 00:49
DX: F10.120 Alcohol abuse with intoxication, uncomplicated (principal); E03.9 Hypothyroidism, unspecified; E11.9 Type 2 diabetes mellitus without complications; I10 Essential (primary) hypertension; J44.9 Chronic obstructive pulmonary disease, unspecified; Z86.73 Personal history of transient ischemic attack (TIA), and cerebral infarction without residual deficits; Z79.82 Long term (current) use of aspirin; Z88.0 Allergy status to penicillin; K21.9 Gastro-esophageal reflux disease without esophagitis; Z87.891 Personal history of nicotine dependence
CPT/HCPCS: 80048; 80307; 96361; 96374; 96375; 96376; 99285; J2060; J2405; J7030; Q0169

== ENCOUNTER 2016-11-03 12:17 | Emergency (ER) | payer OTHER ==
[~2016-11-03] VITALS: Ht 177.8 cm; Wt 80.0 kg
[2016-11-03 13:35] VITALS: BP 136/85; PULSE 111; RESP 16; TEMP 98.3; O2SAT 98
--- NOTE | 2016-11-03 13:55 | PD ---
HPI Chief Complaint: FACIAL PAIN/LIP PAIN Time Seen by Provider: 13:34 Travel History International Travel<30 days: No Contact w/Intl Traveler<30days: No Traveled to known affect area: No History of Present Illness HPI S/P FALL TODAY (ACKNOWLEDGED ETOH) AND HAS HAD A SWOLLEN LIP SINCE HITTING IT....UNKNOWN IF LOC, DUE TO HIS ETOH ON BOARD I WILL ERR ON SIDE OF CAUTION PFSH Past Medical History Asthma: No Blood Disorders: No Anxiety: Yes Depression: Yes Heart Rhythm Problems: No Cancer: No High Cholesterol: No Chest Pain: No Congestive Heart Failure: No COPD: Yes Cerebrovascular Accident: Yes (2011) Diabetes: Yes (type 2) Diminished Hearing: No Endocrine: No Gastrointestinal Disorders: Yes GERD: Yes Genitourinary: No Headaches: Yes Hepatitis: No Hiatal Hernia: No Hypertension: Yes Immune Disorder: No Inguinal Hernia: Yes (Inguinal hernia repair) Implanted Vascular Access Dvce: Yes Insomnia: Yes Musculoskeletal: No Neurologic: Yes Reproductive: No Migraines: No Myocardial Infarction: No Seizures: Yes Sleep Apnea: Yes Thyroid Disease: Yes (hypothyroid) Ulcer: No Past Surgical History Abdominal Surgery: Yes (Inguinal hernia repair) AICD: No Appendectomy: No Arteriovenous Shunt: No Cardiac Surgery: No Cholecystectomy: No Ear Surgery: No Endocrine Surgery: No Eye Surgery: Yes (CORRECTIVE EYE SURGERY (LASIX)) Genitourinary Surgery: No Gynecologic Surgery: No Insulin Pump: No Joint Replacement: No Oral Surgery: Yes (tonsilectomy) Pacemaker: No Thoracic Surgery: No Tonsillectomy: Yes Other Surgery: Yes (sinus surgery) Social History Alcohol Use: Yes (drinks vodka on his "bad days" which outnumber his "good days " ) Tobacco Use: No (pt stated he quit 14 years ago ) Substance Use: Yes (REPORTS HX OF BINGE DRINKING VODKA. COULD NOT QUANTIFY) Allergies-Medications (Allergen,Severity, Reaction): Coded Allergies: erythromycin base (Unverified Allergy, Severe, Hives, 10/17/16) penicillin G (Unverified Allergy, Severe, Hives, 10/17/16) Reported Meds & Prescriptions Reported Meds & Active Scripts Active Folic Acid 1 Mg Tablet 1 Mg PO DAILY 30 Days Nifedipine ER 24 HR (Nifedipine) 60 Mg Tab 60 Mg PO DAILY Multiple Vitamin 1 Tab 1 Tab PO DAILY Sertraline (Sertraline HCl) 25 Mg Tab 50 Mg PO DAILY Protonix (Pantoprazole Sodium) 40 Mg Tab 40 Mg PO DAILY Levothyroxine (Levothyroxine Sodium) 88 Mcg Tab 88 Mcg PO DAILY Glucophage (Metformin HCl) 500 Mg Tab 500 Mg PO BIDPC With meals Diovan (Valsartan) 80 Mg Tab 80 Mg PO BID Reported Quetiapine (Quetiapine Fumarate) 25 Mg Tab 75 Mg PO HS Aspirin DR (Aspirin) 81 Mg Tabdr 81 Mg PO DAILY Vitamin B-1 (Thiamine HCl) 100 Mg Tab 100 Mg PO DAILY Review of Systems Except as stated in HPI: all other systems reviewed are Neg Musculoskeletal: Positive: Pain (LIP PAIN) Physical Exam Narrative GENERAL: SKIN: Warm and dry. HEAD: Atraumatic. Normocephalic. EYES: Pupils equal and round. No scleral icterus. No injection or drainage. ENT: No nasal bleeding or discharge. Mucous membranes pink and moist....INFERIOR LIP EDEMA WITH ECHYMOSIS C/W CONTUSION, NO THROUGH AND THROUGH LIP LAC NOTED, TONGUE INTACT, NO MAXILLOFACIAL CREPITUS OR INSTABILITY NECK: Trachea midline. No JVD. CARDIOVASCULAR: Regular rate and rhythm. RESPIRATORY: No accessory muscle use. Clear to auscultation. Breath sounds equal bilaterally. GASTROINTESTINAL: Abdomen soft, non-tender, nondistended. Hepatic and splenic margins not palpable. MUSCULOSKELETAL: Extremities without clubbing, cyanosis, or edema. No obvious deformities. NEUROLOGICAL: Awake and alert. No obvious cranial nerve deficits. Motor grossly within normal limits. Five out of 5 muscle strength in the arms and legs. Normal speech. PSYCHIATRIC: Appropriate mood and affect; insight and judgment normal. Data Data Last Documented VS Vital Signs Date Time Temp Pulse Resp B/P (MAP) Pulse Ox O2 Delivery O2 Flow Rate FiO2 11/03/16 14:04 110 16 140/82 (101) 92 Room Air 11/03/16 13:[address] Brain W/O Iv Contrast(Rout) (11/03/16 13:34) Ct Facial Bones W/O Iv Cont (11/03/16 ) Ondansetron Odt (Zofran Odt) (11/03/16 15:00) MDM Medical Decision Making Medical Screen Exam Complete: Yes Emergency Medical Condition: Yes Medical Record Reviewed: Yes Differential Diagnosis FACIAL V SKULL FX, V ICH Narrative Course CT DID NOT SHOW ANY BRAIN BLEED, NO SKULL FX AND CT FACE NEG FOR FX WELL. Diagnosis Primary Impression: INFERIOR LIP CONTUSION Additional Impression: Acute alcohol intoxication Qualified Codes: F10.929 - Alcohol use, unspecified with intoxication, unspecified Patient Instructions: Facial Contusion (ED), General Instructions Disposition: 01 DISCHARGE HOME Condition: Stable Reji Perry MD Nov 03, 2016 13:55
[2016-11-03 14:04] VITALS: BP 140/82; PULSE 110; RESP 16; O2SAT 92
--- NOTE | 2016-11-03 14:10 | RADRPT ---
EXAM DATE/TIME: 11/03/2016 13:54 [place] COMPARISON: CT BRAIN W/O CONTRAST, October 04, 2016, 20:16. INDICATIONS : Fall, facial injuries. RADIATION DOSE: 38.91 CTDIvol (mGy) MEDICAL HISTORY : Stroke. Seizures. Hypertension. SURGICAL HISTORY : None. ENCOUNTER: Initial ACUITY: 1 day PAIN SCALE: 0/10 LOCATION: cranial TECHNIQUE: Multiple contiguous axial images were obtained of the head. Using automated exposure control and adj ustment of the mA and/or kV according to patient size, radiation dose was kept as low as reasonably a chievable to obtain optimal diagnostic quality images. DICOM format image data is available electro nically for review and comparison. FINDINGS: CEREBRUM: Old infarct is seen in the right parietal region. The left hemisphere is unremarkable. POSTERIOR FOSSA: The cerebellum and brainstem are intact. The 4th ventricle is midline. The cerebellopontine angle i s unremarkable. EXTRACRANIAL: The visualized portion of the orbits is intact. SKULL: The calvaria is intact. No evidence of skull fracture. CONCLUSION: Negative for acute process. 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 There is no parenchymal hemorrhage, acute infarct ion or mass lesion. Darinel Judd MD FACR on November 03, 2016 at 14:07 Board Certified Radiologist. This report was verified electronically.
--- NOTE | 2016-11-03 14:18 | RADRPT ---
EXAM DATE/TIME: 11/03/2016 13:54 [place] COMPARISON: CT FACIAL BONES W/O CONTRAST, August 06, 2016, 18:25. INDICATIONS : Fall, swelling and bruising to lower lip. RADIATION DOSE: 61.74 CTDIvol (mGy) MEDICAL HISTORY : Seizures. Stroke Hypertension. SURGICAL HISTORY : None. ENCOUNTER: Initial ACUITY: 1 day PAIN SCORE: 6/10 LOCATION: facial TECHNIQUE: Volumetric scanning of the facial bones was performed. Using automated exposure control and adjustme nt of the mA and/or kV according to patient size, radiation dose was kept as low as reasonably achiev able to obtain optimal diagnostic quality images. DICOM format image data is available electronicall y for review and comparison. FINDINGS: ORBITS: The orbital and infraorbital osseous structures are intact. The retroconal structures have a normal configuration. No radiopaque foreign bodies are seen. NASAL BONE: The nasal bone and maxillary spine are intact ZYGOMATIC ARCHES: Symmetric without evidence of fracture. SINUSES: The maxillary, ethmoid and frontal sinuses are intact. No air-fluid levels seen. NASAL CAVITY: The nasal septum is intact and midline. The lacrimal ducts are intact. SOFT TISSUES: No radiopaque foreign bodies seen. No soft-tissue swelling is seen. INTRACRANIAL: No intracranial air seen. CRIBIFORM PLATE: Grossly intact. CONCLUSION: 1. No fracture or dislocation. 2. There is no radiopaque foreign body. Luis Gardiner Jr., MD on November 03, 2016 at 14:11 Board Certified Radiologist. This report was verified electronically.
[2016-11-03] MEDS ORDERED: ONDANSETRON ODT 4 MG TAB PO ONE (15:00)
== END 2016-11-03 19:05 | disposition home or self-care (01) ==
LOC: NEPE 12:17
DX: S00.531A Contusion of lip, initial encounter (principal); F10.929 Alcohol use, unspecified with intoxication, unspecified; E11.9 Type 2 diabetes mellitus without complications; I10 Essential (primary) hypertension; E03.9 Hypothyroidism, unspecified; G47.30 Sleep apnea, unspecified; W19.XXXA Unspecified fall, initial encounter; Z79.84 Long term (current) use of oral hypoglycemic drugs; Z86.59 Personal history of other mental and behavioral disorders; Z87.09 Personal history of other diseases of the respiratory system; Z86.79 Personal history of other diseases of the circulatory system; Z87.19 Personal history of other diseases of the digestive system; Z86.69 Personal history of other diseases of the nervous system and sense organs
CPT/HCPCS: 70450; 70486

== ENCOUNTER 2016-11-06 21:33 | Emergency (ER) | payer OTHER ==
[~2016-11-06] VITALS: Ht 177.8 cm; Wt 110.0 kg
[2016-11-06] MEDS ORDERED: PROMETHAZINE INJ 25 MG/ML VIAL IM ONE (22:30)
[2016-11-06] MEDS ORDERED: QUEtiapine FUMARATE 25 MG TAB PO ONE (22:30)
[2016-11-06 22:44] VITALS: BP 169/102; PULSE 103; RESP 18; TEMP 99.5; O2SAT 98
--- NOTE | 2016-11-07 01:06 | PD ---
HPI Chief Complaint: Medical Clearance Time Seen by Provider: 22:17 Travel History International Travel<30 days: No Contact w/Intl Traveler<30days: No Traveled to known affect area: No History of Present Illness HPI This is a 60-year-old male who presents to the emergency department intoxicated. He reports that he came in because he drank too much and feels nauseous and has been throwing up. He says he doesn't drink every day. He says he is going through a separation with his which has been causing him to drink more than normal. He denies any abdominal pain, fevers or chills. His symptoms are constant, moderate severity. He denies any suicidal ideation. PFSH Past Medical History Asthma: No Blood Disorders: No Anxiety: Yes Depression: Yes Heart Rhythm Problems: No Cancer: No Cardiovascular Problems: Yes (hypertension) High Cholesterol: No Chest Pain: No Congestive Heart Failure: No COPD: Yes Cerebrovascular Accident: Yes (2011) Diabetes: Yes (type 2) Patient Takes Glucophage: No Diminished Hearing: No Endocrine: No Gastrointestinal Disorders: Yes GERD: Yes Genitourinary: No Headaches: Yes Hepatitis: No Hiatal Hernia: No Hypertension: Yes Immune Disorder: No Inguinal Hernia: Yes (Inguinal hernia repair) Implanted Vascular Access Dvce: Yes Insomnia: Yes Musculoskeletal: No Neurologic: Yes Psychiatric: Yes (ETOH ) Reproductive: No Migraines: No Myocardial Infarction: No Seizures: Yes Sleep Apnea: Yes Thyroid Disease: Yes (hypothyroid) Ulcer: No Tetanus Vaccination: Unknown Influenza Vaccination: No Past Surgical History Abdominal Surgery: Yes (Inguinal hernia repair) AICD: No Appendectomy: No Arteriovenous Shunt: No Cardiac Surgery: No Cholecystectomy: No Ear Surgery: No Endocrine Surgery: No Eye Surgery: Yes (CORRECTIVE EYE SURGERY (LASIX)) Genitourinary Surgery: No Gynecologic Surgery: No Insulin Pump: No Joint Replacement: No Oral Surgery: Yes (tonsilectomy) Pacemaker: No Thoracic Surgery: No Tonsillectomy: Yes Other Surgery: Yes (sinus surgery) Social History Alcohol Use: Yes Tobacco Use: No (pt stated he quit 14 years ago ) Substance Use: Yes (REPORTS HX OF BINGE DRINKING VODKA. COULD NOT QUANTIFY) Allergies-Medications (Allergen,Severity, Reaction): Coded Allergies: erythromycin base (Verified Allergy, Severe, Hives, 11/06/16) penicillin G (Verified Allergy, Severe, Hives, 11/06/16) Reported Meds & Prescriptions Reported Meds & Active Scripts Active Folic Acid 1 Mg Tablet 1 Mg PO DAILY 30 Days Nifedipine ER 24 HR (Nifedipine) 60 Mg Tab 60 Mg PO DAILY Multiple Vitamin 1 Tab 1 Tab PO DAILY Sertraline (Sertraline HCl) 25 Mg Tab 50 Mg PO DAILY Protonix (Pantoprazole Sodium) 40 Mg Tab 40 Mg PO DAILY Levothyroxine (Levothyroxine Sodium) 88 Mcg Tab 88 Mcg PO DAILY Glucophage (Metformin HCl) 500 Mg Tab 500 Mg PO BIDPC With meals Diovan (Valsartan) 80 Mg Tab 80 Mg PO BID Reported Quetiapine (Quetiapine Fumarate) 25 Mg Tab 75 Mg PO HS Aspirin DR (Aspirin) 81 Mg Tabdr 81 Mg PO DAILY Vitamin B-1 (Thiamine HCl) 100 Mg Tab 100 Mg PO DAILY Review of Systems Except as stated in HPI: all other systems reviewed are Neg Physical Exam Narrative GENERAL:Well appearing, no acute distress SKIN: Focused skin assessment warm and dry. HEAD: Atraumatic. Normocephalic. EYES: Pupils equal and round. No injection or drainage. ENT: Moist mucous membranes. Old ecchymoses along the lower lip. NECK: Trachea midline. CARDIOVASCULAR: Regular rate and rhythm. No murmur appreciated. RESPIRATORY: Clear to auscultation. Breath sounds equal bilaterally. GASTROINTESTINAL: Abdomen soft, non-tender, nondistended. MUSCULOSKELETAL: No obvious deformities. NEUROLOGICAL: Awake and alert. No obvious cranial nerve deficits. Moving all extremities. PSYCHIATRIC: Appropriate mood and affect; insight and judgment normal. Data Data Last Documented VS Vital Signs Date Time Temp Pulse Resp B/P (MAP) Pulse Ox O2 Delivery O2 Flow Rate FiO2 11/06/16 22:44 103 18 169/102 (124) 98 Room Air Orders Orders Promethazine Inj (Phenergan Inj) (11/06/16 22:30) Quetiapine (Seroquel) (11/06/16 22:30) MDM Medical Decision Making Medical Screen Exam Complete: Yes Emergency Medical Condition: Yes Interpretation(s) Mild tachycardia, hypertensive Differential Diagnosis Acute alcohol intoxication, gastritis, pancreatitis Narrative Course This is a 60-year-old male who presents the emergency department with some vomiting after drinking too much alcohol. He has a benign abdominal exam. I don't think he has an acute medical emergency. I think his symptoms are certainly related to alcohol intoxication. He was given Phenergan and his symptoms improved. Patient will be observed until clinically sober. Diagnosis Primary Impression: Acute alcohol intoxication Qualified Codes: F10.929 - Alcohol use, unspecified with intoxication, unspecified Patient Instructions: General Instructions Additional Instructions: Follow up with Annmarie Casper in regards to psychiatric or substance related issues at: [address] [place], [place] [id number] Med/Other Pt SpecificInfo: No Change to Meds Disposition: 01 DISCHARGE HOME Condition: Stable Ora Gutierrez MD Nov 07, 2016 01:06
[2016-11-07 01:11] VITALS: BP 151/87; PULSE 99; RESP 18; O2SAT 97
[2016-11-07] MEDS ORDERED: LORazepam 2 MG/ML VIAL IM ONE (01:15)
[2016-11-07] MEDS ORDERED: ONDANSETRON ODT 4 MG TAB PO ONE (01:15)
== END 2016-11-07 06:02 | disposition home or self-care (01) ==
LOC: NEPD 21:33
DX: F10.929 Alcohol use, unspecified with intoxication, unspecified (principal)
CPT/HCPCS: 96372; 99284; J2060; J2550

== ENCOUNTER 2017-06-28 19:15 | Emergency (ER) | payer OTHER ==
[2017-06-28] MEDS ORDERED: SODIUM CHLORIDE 0.9% FLUSH 10 ML FLUSH IV FLUSH (19:30)
[2017-06-28] MEDS: SODIUM CHLOR 0.9% 1000 ML INJ 1,000 ML IV ×2 (19:56→21:15)
[2017-06-28 20:40] LABS: AUTOMATED NEUTROPHIL # 4.9 TH/MM3 (1.8-7.7); BASOPHIL # 0.1 TH/MM3 (0-0.2); BASOPHIL % 1.2 % (0.0-2.0); EOSINOPHIL # 0.1 TH/MM3 (0-0.4); HEMATOCRIT 46.8 % (39.0-51.0); HEMO FLAGS DIFF FINAL; HEMOGLOBIN 16.6 GM/DL (13.0-17.0); LYMPH % 29.9 % (9.0-44.0); LYMPHOCYTE # 2.4 TH/MM3 (1.0-4.8); MEAN CELL VOLUME 85.5 FL (80.0-100.0); MEAN CORPUSCULAR HEMOGLOBIN 30.3 PG (27.0-34.0); MEAN CORPUSCULAR HGB CONC 35.5 % (32.0-36.0); MEAN PLATELET VOLUME 8.4 FL (7.0-11.0); MONO % 8.3 % (0.0-8.0); MONOCYTE # 0.7 TH/MM3 (0-0.9); NEUT % 59.6 % (16.0-70.0); PLATELET COUNT 238 TH/MM3 (150-450); RED BLOOD COUNT 5.48 MIL/MM3 (4.50-5.90); RED CELL DISTRIBUTION WIDTH 16.5 % (11.6-17.2); WHITE BLOOD COUNT 8.2 TH/MM3 (4.0-11.0)
[2017-06-28 20:52] LABS: ALCOHOL 267 MG/DL (0-5); ALT (GPT) 99 U/L (12-78); ANION GAP 16 MEQ/L (5-15); AST (GOT) 178 U/L (15-37); BLOOD UREA NITROGEN 10 MG/DL (7-18); CALCIUM 10.4 MG/DL (8.5-10.1); CHLORIDE 83 MEQ/L (98-107); CREATININE 1.17 MG/DL (0.60-1.30); GLOMERULAR FILTRATION RATE 64 ML/MIN (>89); GLUCOSE,RANDOM 121 MG/DL (74-106); LIPASE 211 U/L (73-393); POTASSIUM 3.2 MEQ/L (3.5-5.1); SODIUM (NA) 130 MEQ/L (136-145)
[2017-06-28] MEDS: LORazepam 2 MG TAB PO (20:56)
[2017-06-28] MEDS: ONDANSETRON HCL 4 MG/2 ML VIAL IV PUSH (20:57)
[2017-06-28 21:02] LABS: ALKALINE PHOSPHATASE 182 U/L (45-117); TOTAL BILIRUBIN ADULT 1.3 MG/DL (0.2-1.0); TOTAL PROTEIN 8.3 GM/DL (6.4-8.2)
[2017-06-28] MEDS: QUEtiapine FUMARATE 25 MG TAB PO (21:45)
[2017-06-28] MEDS: THIAMINE INJ 100 MG in SODIUM CHLORIDE 0.9% INJ 100 ML IV (22:00)
[2017-06-28 22:08] LABS: BACTERIA, URINE OCC /hpf; BILIRUBIN, URINE NEG (NEG); BLOOD, URINE TRACE (NEG); COMMENT (UR) CULT NOT INDICATED; CULTURE IF INDICATED CULT NOT INDICATED; GLUCOSE,URINE NEG (NEG); HYALINE CAST, URINE 3 /lpf (RARE); KETONE, URINE NEG (NEG); MUCUS URINE FEW /lpf (OCC); NITRITE,URINE NEG (NEG); PH, URINE 6.5 (5.0-8.5); URINE COLOR YELLOW (YELLW/STRAW); URINE LEUKOCYTE ESTERASE TRACE (NEG)
[2017-06-28] MEDS ORDERED: LORazepam 2 MG/ML VIAL IV PUSH ×4 (22:45)
[2017-06-28] MEDS ORDERED: LORazepam 2 MG TAB PO (22:45)
[2017-06-29 00:40] LABS: AMPHETAMINE, URINE NEG (NEG); BARBITURATES, URINE NEG (NEG); BENZODIAZEPINE,URINE NEG (NEG); CANNABINOIDS, URINE NEG (NEG); COCAINE, URINE NEG (NEG)
[2017-06-29] MEDS: ONDANSETRON ODT 4 MG TAB PO ×2 (05:30→09:40)
[2017-06-29] MEDS: LORazepam 1 MG TAB PO (08:58)
[2017-06-29] MEDS: VALSARTAN 80 MG TAB PO (09:37)
[2017-06-29] MEDS: NIFEdipine 60 MG SUSTAINED RELEASE TAB PO (09:37)
[2017-06-29] MEDS: chlordiazePOXIDE 25 MG CAP PO (10:28)
== END 2017-06-29 12:15 | disposition home or self-care (01) ==
LOC: NEPD 06-29 12:15
DX: F10.20 Alcohol dependence, uncomplicated (principal); E86.0 Dehydration; R10.9 Unspecified abdominal pain; F32.9 Major depressive disorder, single episode, unspecified; R11.0 Nausea; F41.9 Anxiety disorder, unspecified; J44.9 Chronic obstructive pulmonary disease, unspecified; E11.9 Type 2 diabetes mellitus without complications; I10 Essential (primary) hypertension; K21.9 Gastro-esophageal reflux disease without esophagitis; Z86.73 Personal history of transient ischemic attack (TIA), and cerebral infarction without residual deficits
CPT/HCPCS: 80053; 80307; 81001; 83690; 84443; 85025; 96361; 96365; 96375; 99284-25

== ENCOUNTER 2017-08-03 10:17 | Emergency (ER) | payer SELFPAY ==
[~2017-08-03] VITALS: Ht 177.8 cm; Wt 113.0 kg
[~2017-08-03 10:17] MED LIST changes: -ASPI81TA5 PO; +CHLO25CA9 PO; +ECASA81 PO; +SERO25TA PO
[2017-08-03 10:25] VITALS: BP 166/89; PULSE 110; RESP 18; TEMP 99; O2SAT 93
[2017-08-03] MEDS ORDERED: SODIUM CHLORID 0.9% 500 ML INJ 500 ML IV ONE (10:45)
[2017-08-03] MEDS ORDERED: TETANUS/DIPHTHERIA TOXOID ADULT 0.5 ML VIAL IM ONE (10:45)
[2017-08-03 10:47] VITALS: O2SAT 98
--- NOTE | 2017-08-03 10:54 | PD ---
HPI Chief Complaint: Skin Problem Time Seen by Provider: 10:45 Travel History International Travel<30 days: No Contact w/Intl Traveler<30days: No Traveled to known affect area: No History of Present Illness HPI This is a 61-year-old male with a history of hypertension, diabetes mellitus, chronic alcohol abuse, who presents today via EMS with complaints of lesions to his forehead, chin, right upper extremity. Patient denies any previous infection or injury. Patient does report that he is a diabetic and alcoholic. Patient reports he drinks wine daily. Patient does appear to have mild slurring of his speech consistent with the consumption of alcohol. There is no reported fevers, chills. There is no other reported complaints. PFSH Past Medical History Asthma: No Blood Disorders: No Anxiety: Yes Depression: Yes Heart Rhythm Problems: No Cancer: No Cardiovascular Problems: Yes (HTN) High Cholesterol: No Chest Pain: No Congestive Heart Failure: No COPD: Yes Cerebrovascular Accident: Yes (2011) Diabetes: Yes Diminished Hearing: No Endocrine: No Gastrointestinal Disorders: Yes GERD: Yes Genitourinary: No Headaches: Yes Hepatitis: No Hiatal Hernia: No Hypertension: Yes Immune Disorder: No Inguinal Hernia: Yes (Inguinal hernia repair) Implanted Vascular Access Dvce: Yes Insomnia: Yes Musculoskeletal: No Neurologic: Yes Psychiatric: Yes Reproductive: No Migraines: No Myocardial Infarction: No Seizures: Yes Sleep Apnea: Yes Thyroid Disease: Yes (hypothyroid) Ulcer: No Past Surgical History Abdominal Surgery: Yes (Inguinal hernia repair) AICD: No Appendectomy: No Arteriovenous Shunt: No Cardiac Surgery: No Cholecystectomy: No Ear Surgery: No Endocrine Surgery: No Eye Surgery: Yes (CORRECTIVE EYE SURGERY (LASIX)) Genitourinary Surgery: No Gynecologic Surgery: No Insulin Pump: No Joint Replacement: No Oral Surgery: Yes Pacemaker: No Thoracic Surgery: No Tonsillectomy: Yes Other Surgery: Yes Social History Alcohol Use: Yes Tobacco Use: No (pt stated he quit 14 years ago ) Substance Use: Yes (REPORTS HX OF BINGE DRINKING VODKA. COULD NOT QUANTIFY) Allergies-Medications (Allergen,Severity, Reaction): Coded Allergies: erythromycin base (Verified Allergy, Severe, Hives, 06/28/17) penicillin G (Verified Allergy, Severe, Hives, 06/28/17) Reported Meds & Prescriptions Reported Meds & Active Scripts Active Chlordiazepoxide HCl 25 Mg Capsule 25 Mg PO TID Clindamycin (Clindamycin HCl) 150 Mg Cap 450 Mg PO Q8HR 10 Days Bactroban Topical (Mupirocin) 22 Gm Cream 1 Applic TOPICAL TID Seroquel (Quetiapine Fumarate) 25 Mg Tab 25 Mg PO HS PRN 30 Days Chlordiazepoxide HCl 25 Mg Capsule 1 Tab PO DIRECTED Take 1-2 tabs 3 times daily on day 1 & 2, 1-2 tabs twice daily on day 3 & 4, And 1 tab daily on days 5 and 6 Folic Acid 1 Mg Tablet 1 Mg PO DAILY 30 Days Nifedipine ER 24 HR (Nifedipine) 60 Mg Tab 60 Mg PO DAILY Multiple Vitamin 1 Tab 1 Tab PO DAILY Sertraline (Sertraline HCl) 25 Mg Tab 50 Mg PO DAILY Protonix (Pantoprazole Sodium) 40 Mg Tab 40 Mg PO DAILY Levothyroxine (Levothyroxine Sodium) 88 Mcg Tab 88 Mcg PO DAILY Glucophage (Metformin HCl) 500 Mg Tab 500 Mg PO BIDPC With meals Diovan (Valsartan) 80 Mg Tab 80 Mg PO BID Reported Quetiapine (Quetiapine Fumarate) 25 Mg Tab 75 Mg PO HS Aspirin DR (Aspirin) 81 Mg Tabdr 81 Mg PO DAILY Vitamin B-1 (Thiamine HCl) 100 Mg Tab 100 Mg PO DAILY Review of Systems Except as stated in HPI: all other systems reviewed are Neg General / Constitutional: No: Fever, Chills HENT: Positive: Other (Lesions to the forehead, chin), No: Headaches, Neck Pain Cardiovascular: No: Chest Pain or Discomfort, Palpitations Respiratory: No: Cough, Shortness of Breath Gastrointestinal: No: Nausea, Vomiting, Abdominal Pain Skin: Positive Itching, Positive Lesions (Lesions to the forehead, chin, right upper extremity.) Neurologic: No: Weakness, Dizziness, Headache Physical Exam Narrative GENERAL: Well-developed well-nourished male in no acute respiratory distress. SKIN: There are honeycomb lesions to his forehead and chin. There are also honeycomb lesions to his right forearm. There is no purulent drainage noted there is some mild crusting noted. There is mild redness surrounding to the lesions on his right forearm. HEAD: Atraumatic. Normocephalic. EYES: No scleral icterus. No injection or drainage. ENT: No nasal bleeding or discharge. Mucous membranes pink and moist. NECK: Trachea midline. Supple. CARDIOVASCULAR: Regular rate and rhythm. No murmur appreciated. RESPIRATORY: No accessory muscle use. Clear to auscultation. Breath sounds equal bilaterally. GASTROINTESTINAL: Abdomen soft, non-tender, nondistended. Hepatic and splenic margins not palpable. MUSCULOSKELETAL: No obvious deformities. No clubbing. No cyanosis. No edema. NEUROLOGICAL: Awake and alert. No obvious cranial nerve deficits. Motor grossly within normal limits. Normal speech. PSYCHIATRIC: Appropriate mood and affect; insight and judgment normal. Data Data Last Documented VS Vital Signs Date Time Temp Pulse Resp B/P (MAP) Pulse Ox O2 Delivery O2 Flow Rate FiO2 08/03/17 10:47 98 Room Air 08/03/17 10:25 99.0 110 18 166/89 (114) Orders Orders Complete Blood Count With Diff (08/03/17 10:45) Basic Metabolic Panel (Bmp) (08/03/17 10:45) Iv Access Insert/Monitor (08/03/17 10:45) Ecg Monitoring (08/03/17 10:45) Oximetry (08/03/17 10:45) Sodium Chlorid 0.9% 500 Ml Inj (Ns 500 M (08/03/17 10:45) Tetanus/Diphtheria Tox Adult (Tetanus/Di (08/03/17 10:45) Chlordiazepoxide (Librium) (08/03/17 14:00) Labs Laboratory Tests Test 08/03/17 10:55 White Blood Count 15.1 TH/MM3 Red Blood Count 4.91 MIL/MM3 Hemoglobin 15.4 GM/DL Hematocrit 43.9 % Mean Corpuscular Volume 89.3 FL Mean Corpuscular Hemoglobin 31.3 PG Mean Corpuscular Hemoglobin Concent 35.1 % Red Cell Distribution Width 16.8 % Platelet Count 172 TH/MM3 Mean Platelet Volume 7.5 FL Neutrophils (%) (Auto) 87.1 % Lymphocytes (%) (Auto) 5.9 % Monocytes (%) (Auto) 6.1 % Eosinophils (%) (Auto) 0.1 % Basophils (%) (Auto) 0.8 % Neutrophils # (Auto) 13.2 TH/MM3 Lymphocytes # (Auto) 0.9 TH/MM3 Monocytes # (Auto) 0.9 TH/MM3 Eosinophils # (Auto) 0.0 TH/MM3 Basophils # (Auto) 0.1 TH/MM3 CBC Comment AUTO DIFF Differential Total Cells Counted 100 Neutrophils % (Manual) 74 % Band Neutrophils % 13 % Lymphocytes % 8 % Monocytes % 5 % Neutrophils # (Manual) 13.1 TH/MM3 Differential Comment FINAL DIFF MANUAL Platelet Estimate NORMAL Platelet Morphology Comment NORMAL Blood Urea Nitrogen 15 MG/DL Creatinine 0.85 MG/DL Random Glucose 117 MG/DL Calcium Level 8.4 MG/DL Sodium Level 138 MEQ/L Potassium Level 3.7 MEQ/L Chloride Level 98 MEQ/L Carbon Dioxide Level 21.9 MEQ/L Anion Gap 18 MEQ/L Estimat Glomerular Filtration Rate 92 ML/MIN MDM Medical Decision Making Medical Screen Exam Complete: Yes Emergency Medical Condition: Yes Differential Diagnosis Impetigo versus MRSA versus scabies Narrative Course 7-year-old male with history of alcoholism, diabetes mellitus, presents today with complaints of lesions to his forehead lei and arm. They have a consistency of impetigo. The patient also presented with mild intoxication. The patient is now appropriately sober. We will place him on Bactrim and mupirocin. He also be given a four-day Librium schedule. He is instructed not to drink alcohol while taking this medication. He is also instructed to return if the lesions become more prominent. Diagnosis Primary Impression: Impetigo Additional Impressions: Alcohol abuse Diabetes mellitus Additional Instructions: Do not drink alcohol while taking Librium. Use antibiotics and ointment as directed. Return if worse. Med/Other Pt SpecificInfo: Prescription(s) given Scripts Chlordiazepoxide HCl (Chlordiazepoxide HCl) 25 Mg Capsule 25 MG PO TID for Withdrawals, #12 Prov: Oli Reed MD 08/03/17 Clindamycin (Clindamycin) 150 Mg Cap 450 MG PO Q8HR for Infection for 10 Days, #30 CAP 0 Refills Prov: Oli Reed MD 08/03/17 Mupirocin Topical (Bactroban Topical) 22 Gm Cream 1 APPLIC TOPICAL TID for Mgmt Bacterial Infection, #1 TUBE 0 Refills Prov: Oli Reed MD 08/03/17 Disposition: 01 DISCHARGE HOME Condition: Stable Oli Reed MD Aug 03, 2017 10:54
[2017-08-03 11:06] LABS: AUTOMATED NEUTROPHIL # 13.2 TH/MM3 (1.8-7.7); BASOPHIL # 0.1 TH/MM3 (0-0.2); BASOPHIL % 0.8 % (0.0-2.0); EOSINOPHIL % 0.1 % (0.0-4.0); HEMATOCRIT 43.9 % (39.0-51.0); HEMOGLOBIN 15.4 GM/DL (13.0-17.0); LYMPH % 5.9 % (9.0-44.0); LYMPHOCYTE # 0.9 TH/MM3 (1.0-4.8); MEAN CELL VOLUME 89.3 FL (80.0-100.0); MEAN CORPUSCULAR HEMOGLOBIN 31.3 PG (27.0-34.0); MEAN CORPUSCULAR HGB CONC 35.1 % (32.0-36.0); MEAN PLATELET VOLUME 7.5 FL (7.0-11.0); MONO % 6.1 % (0.0-8.0); MONOCYTE # 0.9 TH/MM3 (0-0.9); NEUT % 87.1 % (16.0-70.0); PLATELET COUNT 172 TH/MM3 (150-450); RED BLOOD COUNT 4.91 MIL/MM3 (4.50-5.90); RED CELL DISTRIBUTION WIDTH 16.8 % (11.6-17.2); WHITE BLOOD COUNT 15.1 TH/MM3 (4.0-11.0)
[2017-08-03 11:33] LABS: BICARBONATE 21.9 MEQ/L (21.0-32.0); CALCIUM 8.4 MG/DL (8.5-10.1); CREATININE 0.85 MG/DL (0.60-1.30)
[2017-08-03 12:00] LABS: BANDS 13 % (0-6); LYMPHOCYTES 8 % (9-44); MONOCYTES 5 % (0-8); NEUTROPHIL # MANUAL DIFF 13.1 TH/MM3 (1.8-7.7); POLYS (SEG NEUTROPHILS) 74 % (16-70)
[2017-08-03] MEDS ORDERED: MUPI2%T TOPICAL (13:41)
[2017-08-03] MEDS ORDERED: CLIN150C14 PO (13:41)
[2017-08-03] MEDS ORDERED: CHLO25CA9 PO (14:06)
[2017-08-03 14:37] VITALS: BP 152/75; PULSE 77; RESP 17; O2SAT 100
== END 2017-08-03 14:39 | disposition home or self-care (01) ==
LOC: NEPE 10:17
DX: L01.00 Impetigo, unspecified (principal); F10.10 Alcohol abuse, uncomplicated; E10.9 Type 1 diabetes mellitus without complications; I10 Essential (primary) hypertension; R47.81 Slurred speech; J44.9 Chronic obstructive pulmonary disease, unspecified; K21.9 Gastro-esophageal reflux disease without esophagitis; E03.9 Hypothyroidism, unspecified; Z23 Encounter for immunization
CPT/HCPCS: 80048; 85007; 85027; 90471; 90714; 96360; 99284; J7040

== ENCOUNTER 2017-10-31 16:43 | Observation (INO) ==
[2017-10-31] MEDS ORDERED: Sod Chloride 0.9% Inj 1,000 ML IV.SIG ONE (17:08)
--- NOTE | 2017-10-31 17:15 | ED ---
HPI General Chief Complaint: Psychiatric Symptoms Stated Complaint: psych eval/evac Time Seen by Provider: 10/31/17 17:00 History of Present Illness HPI Narrative: This patient called 911 to bring him to the ER for evaluation. He has history of bipolar and depression. He has been feeling suicidal. He is taken a few extra of his prescribed pills. He says he just did it to try to get a sleep and rather not specifically hurt himself with the pills. He is very vague as to what exactly he took and when and how many. It is not clear. He takes Ativan and Seroquel may have taken a couple extra beats she says. He was drinking alcohol today. He denies any drug use. Symptom severity is moderate. No alleviating factors. It is exacerbated by his depression. Duration 3 weeks Related Data Home Medications Medication Instructions Recorded Confirmed atorvastatin 20 mg PO DAILY 09/14/17 10/31/17 gabapentin 300 mg PO BID 09/14/17 10/31/17 glimepiride 2 mg PO BID 09/14/17 10/31/17 levothyroxine 88 mcg PO DAILY 09/14/17 10/31/17 pantoprazole [Protonix] 40 mg PO DAILY 09/14/17 10/31/17 quetiapine [Seroquel] 25 mg PO DAILY 09/14/17 10/31/17 sertraline 50 mg PO DAILY 09/14/17 10/31/17 valsartan 80 mg PO DAILY 09/14/17 10/31/17 lorazepam [Ativan] 1 mg PO BID 10/31/17 10/31/17 Allergies Allergy/AdvReac Type Severity Reaction Status Date / Time erythromycin base Allergy Severe Hives Verified 10/31/17 16:57 penicillin G Allergy Severe Hives Verified 10/31/17 16:57 Review of Systems ROS: all other systems reviewed are negative PMFSH Social History Social History Substance History: No History of Abuse Smoking Status: Former smoker How Often Do You Have a Drink Containing Alcohol: 4 or more times a week Recent Travel in [facility] within the Last 8 Weeks: No Recent Out of Country Travel within the Last 8 Weeks: No Immunization History Tetanus Immunization: Unsure Hx Influenza Vaccine This Season: No Exam Narrative Exam Narrative: GENERAL: Well-nourished, well-developed patient in no apparent distress. SKIN: Focused skin assessment reveals no rash and nodules. Skin is Warm and dry. HEAD: Atraumatic. Normocephalic. EYES: Pupils equal and round. No scleral icterus. No injection or drainage. ENT: No nasal bleeding or discharge. Mucous membranes pink and moist. NECK: Trachea midline. No JVD. CARDIOVASCULAR: Regular rate and rhythm. No murmur appreciated. Tachycardic at 120 RESPIRATORY: No accessory muscle use. Clear to auscultation. Breath sounds equal bilaterally. GASTROINTESTINAL: Abdomen soft, non-tender, nondistended. Hepatic and splenic margins not palpable. MUSCULOSKELETAL: No obvious deformities. No clubbing. No cyanosis. No edema. NEUROLOGICAL: Awake and alert. No obvious cranial nerve deficits. Motor grossly within normal limits. Normal speech. PSYCHIATRIC: Depressed mood and flat affect; insight and judgment poor . Course Initial Documented Vital Signs Temperature 98.5 F 10/31/17 16:54 Pulse Rate 125 H 10/31/17 16:54 Respiratory Rate 25 H 10/31/17 16:54 Blood Pressure 184/108 H 10/31/17 16:54 Pulse Oximetry 94 L 10/31/17 16:54 Last Documented Vital Signs Temperature 98.5 F 10/31/17 16:54 Pulse Rate 123 H 10/31/17 16:57 Respiratory Rate 24 10/31/17 16:57 Blood Pressure 168/99 H 10/31/17 16:57 Pulse Oximetry 96 10/31/17 16:57 Medical Decision Making MDM Narrative Medical decision making narrative: IV placed and labs sent. I gave him a liter bolus of normal saline. Urine studies ordered as well. Extended cardiac monitoring reveals sinus tachycardia without ectopy. I reviewed his EKG which shows the same. Labs are reviewed. He is intoxicated acutely but otherwise nothing emergent on the labs. He is a little hyperglycemic and slightly thrombocytopenic. However, he does have persistent sinus tachycardia in the 120s. He will be a telemetry admission to medical service with psychiatry consultation. I did review it with the hospitalist. At this time the patient remains agreeable and wanting to get psychiatric help and does not meet Barron act criteria because of that. Medical Screen Exam Complete: Yes Emergency Medical Condition: Yes Differential Diagnosis Differential Diagnosis: Suicide ideation, depression, overdose, overmedication Medical Records Medical records reviewed: Yes I reviewed the patient's medical records. Lab Data Lab results reviewed: Yes I reviewed the patient's lab results. Result diagrams: 10/31/17 17:16 10/31/17 17:16 Lab Results 10/31/17 10/31/17 10/31/17 Range/Units 17:16 17:16 17:16 WBC 6.4 (4.0-11.0) th/mm3 RBC 4.70 (4.50-5.90) mil/mm3 Hgb 15.0 (13.0-17.0) gm/dL Hct 43.9 (39.0-51.0) % MCV 93.5 (80.0-100.0) fL MCH 31.9 (27.0-34.0) pg MCHC 34.1 (32.0-36.0) % RDW 15.2 (11.6-17.2) % Plt Count 140 L (150-450) th/mm3 MPV 8.5 (7.0-11.0) fL Neut % (Auto) 70.5 H (16.0-70.0) % Lymph % (Auto) 22.6 (9.0-44.0) % Sabine % (Auto) 5.9 (0.0-8.0) % Eos % (Auto) 0.2 (0.0-4.0) % Baso % (Auto) 0.8 (0.0-2.0) % Neut # (Auto) 4.5 (1.8-7.7) th/mm3 Lymph # (Auto) 1.5 (1.0-4.8) th/mm3 Sabine # (Auto) 0.4 (0.0-0.9) th/mm3 Eos # (Auto) 0.0 (0.0-0.4) th/mm3 Baso # (Auto) 0.1 (0.0-0.2) th/mm3 WBC Differential . Differential Comment Auto diff final Sodium 136 (136-145) meq/L Potassium 3.4 L (3.5-5.1) meq/L Chloride 96 L (98-107) meq/L Carbon Dioxide 25.2 (21.0-32.0) meq/L Anion Gap 15 (5-15) meq/L BUN 12 (7-18) mg/dL Creatinine 0.96 (0.60-1.30) mg/dL Estimated GFR 80 L (>89) mL/min Random Glucose 221 H (74-106) mg/dL Calcium 8.2 L (8.5-10.1) mg/dL Total Bilirubin 2.1 H (0.2-1.0) mg/dL AST 375 H (15-37) U/L ALT 230 H (12-78) U/L Alkaline Phosphatase 181 H (45-117) U/L Total Protein 8.1 (6.4-8.2) g/dL Albumin 3.8 (3.4-5.0) g/dL TSH 2.190 (0.358-3.740) uIU/mL Salicylates Less than 1.7 L (2.8-20.0) mg/dL Urine Opiates Screen (Neg) Acetaminophen Less than 2.0 L (10.0-30.0) mcg/mL Ur Barbiturates Screen (Neg) Ur Amphetamines Screen (Neg) U Benzodiazepines Scrn (Neg) Urine Cocaine Screen (Neg) U Cannabinoids Screen (Neg) Serum Alcohol 243 H (0-5) mg/dL 10/31/17 Range/Units 17:18 WBC (4.0-11.0) th/mm3 RBC (4.50-5.90) mil/mm3 Hgb (13.0-17.0) gm/dL Hct (39.0-51.0) % MCV (80.0-100.0) fL MCH (27.0-34.0) pg MCHC (32.0-36.0) % RDW (11.6-17.2) % Plt Count (150-450) th/mm3 MPV (7.0-11.0) fL Neut % (Auto) (16.0-70.0) % Lymph % (Auto) (9.0-44.0) % Sabine % (Auto) (0.0-8.0) % Eos % (Auto) (0.0-4.0) % Baso % (Auto) (0.0-2.0) % Neut # (Auto) (1.8-7.7) th/mm3 Lymph # (Auto) (1.0-4.8) th/mm3 Sabine # (Auto) (0.0-0.9) th/mm3 Eos # (Auto) (0.0-0.4) th/mm3 Baso # (Auto) (0.0-0.2) th/mm3 WBC Differential Differential Comment Sodium (136-145) meq/L Potassium (3.5-5.1) meq/L Chloride (98-107) meq/L Carbon Dioxide (21.0-32.0) meq/L Anion Gap (5-15) meq/L BUN (7-18) mg/dL Creatinine (0.60-1.30) mg/dL Estimated GFR (>89) mL/min Random Glucose (74-106) mg/dL Calcium (8.5-10.1) mg/dL Total Bilirubin (0.2-1.0) mg/dL AST (15-37) U/L ALT (12-78) U/L Alkaline Phosphatase (45-117) U/L Total Protein (6.4-8.2) g/dL Albumin (3.4-5.0) g/dL TSH (0.358-3.740) uIU/mL Salicylates (2.8-20.0) mg/dL Urine Opiates Screen Neg (Neg) Acetaminophen (10.0-30.0) mcg/mL Ur Barbiturates Screen Neg (Neg) Ur Amphetamines Screen Neg (Neg) U Benzodiazepines Scrn Neg (Neg) Urine Cocaine Screen Neg (Neg) U Cannabinoids Screen Neg (Neg) Serum Alcohol (0-5) mg/dL Discharge Plan Discharge Disposition Patient Disposition: 30 Still Patient Discharge Details Diagnosis: Overdose, Suicidal ideation Physicians Team ED Provider: Chavez Guevara Primary Care Provider: UNKNOWN, Rxs /Orders / Referrals /Forms Prescriptions: No Action gabapentin 300 mg Capsule 300 mg PO BID RF: 0 sertraline 50 mg Tablet 50 mg PO DAILY RF: 0 quetiapine [Seroquel] 25 mg Tablet 25 mg PO DAILY RF: 0 atorvastatin 20 mg Tablet 20 mg PO DAILY RF: 0 valsartan 80 mg Tablet 80 mg PO DAILY RF: 0 glimepiride 2 mg Tablet 2 mg PO BID RF: 0 levothyroxine 88 mcg Tablet 88 mcg PO DAILY RF: 0 pantoprazole [Protonix] 40 mg Tablet,Delayed Release (Dr/Ec) 40 mg PO DAILY RF: 0 lorazepam [Ativan] 1 mg Tablet 1 mg PO BID RF: 0 Discharge Interventions Interventions: Vital Signs Last Done: 10/31/17 16:57 Status ED Status: With Doctor
[2017-10-31 17:43] LABS: Baso # (Auto) 0.1 th/mm3 (0.0-0.2); Baso % (Auto) 0.8 % (0.0-2.0); Eos % (Auto) 0.2 % (0.0-4.0); Hematocrit 43.9 % (39.0-51.0); Lymph # (Auto) 1.5 th/mm3 (1.0-4.8); Lymph % (Auto) 22.6 % (9.0-44.0); Mean Corpuscular HGB Conc 34.1 % (32.0-36.0); Mean Corpuscular Hemoglobin 31.9 pg (27.0-34.0); Mean Corpuscular Volume 93.5 fL (80.0-100.0); Mean Platelet Volume 8.5 fL (7.0-11.0); Mono # (Auto) 0.4 th/mm3 (0.0-0.9); Mono % (Auto) 5.9 % (0.0-8.0); Neut # (Auto) 4.5 th/mm3 (1.8-7.7); Neut % (Auto) 70.5 % (16.0-70.0); Platelet Count 140 th/mm3 (150-450); Red Cell Distribution Width 15.2 % (11.6-17.2); White Blood Count 6.4 th/mm3 (4.0-11.0)
[2017-10-31 17:49] LABS: Amphetamine Screen,Urine Neg (Neg); Barbiturate Screen,Urine Neg (Neg); Cannabinoid Screen,Urine Neg (Neg); Cocaine Screen,Urine Neg (Neg)
[2017-10-31 17:53] LABS: Alanine Aminotransferase 230 U/L (12-78)
[2017-10-31 17:59] LABS: Albumin 3.8 g/dL (3.4-5.0); Anion Gap 15 meq/L (5-15); Aspartate Aminotransferase 375 U/L (15-37); Blood Urea Nitrogen 12 mg/dL (7-18); Calcium 8.2 mg/dL (8.5-10.1); Carbon Dioxide 25.2 meq/L (21.0-32.0); Chloride 96 meq/L (98-107); Glomerular Filtration Rate 80 mL/min (>89); Glucose,Random 221 mg/dL (74-106); Potassium 3.4 meq/L (3.5-5.1); Sodium 136 meq/L (136-145)
[2017-10-31 18:01] LABS: Opiate Screen,Urine Neg (Neg)
[2017-10-31 18:02] LABS: Alcohol 243 mg/dL (0-5); Alkaline Phosphatase 181 U/L (45-117); Total Protein 8.1 g/dL (6.4-8.2)
[2017-10-31] MEDS ORDERED: Bisacodyl 10 MG Supp RECTAL PRN (19:28)
[2017-10-31] MEDS: Sod Chloride 0.9% Inj 1,000 ML IV.CONT SCH (19:47)
--- NOTE | 2017-10-31 21:07 | P.HPIM ---
History of Present Illness Primary Care Physician: UNKNOWN History of Present Illness: 61-year-old male with a history of alcoholism, bipolar disorder, hypothyroidism , hypertension who presents due to a 4 day alcohol binge, says he is unable to stop drinking. Reports history of withdrawals but no seizures in the past. He says he is suicidal but says he does not have a plan. He says he did take some extra tablets of Seroquel but was not trying to kill himself. He denies any fevers, chills, chest pain, shortness of breath. Review of Systems All other systems reviewed negative except as stated in HPI [facility] - History History Provided By: Patient - Medical History Medical History: Medical History (Last Updated 10/31/17 @ 20:59 by Kvng Lim MD) No significant past surgical history Anxiety CVA (cerebral vascular accident) Diabetes Hypertension - Family History Family History: Family History (Last Updated 10/31/17 @ 21:00 by Kvng Lim MD) Mother Kidney carcinoma Father CAD (coronary artery disease) - Tobacco History Smoking Status: Former smoker - Alcohol History How Often Do You Have a Drink Containing Alcohol: 4 or more times a week - Substance Use History Substance History: No History of Abuse - Travel History Recent Travel in the [place] Within the Last 8 Weeks: No Recent Travel Out of the Country Within the Last 8 Weeks: No - Immunization History Tetanus Immunization: Unsure Hx Influenza Vaccine This Season: No Medications and Allergies Active Medications: Active Medications Al Hydroxide/Mg Hydroxide (Milk Of Magnesia Liq) 30 ml PO Q12H PRN PRN Reason: Mild Constipation Bisacodyl (Dulcolax Supp) 10 mg RECTAL DAILY PRN PRN Reason: SEVERE CONSITIPATION Enalaprilat (Vasotec Inj) 1.25 mg IV.PUSH Q6H PRN PRN Reason: SBP>180, DBP>100, HR>65 Last Admin: 10/31/17 20:50 Dose: 1.25 mg Sodium Chloride (Ns Inj) 1,000 mls @ 100 mls/hr IV.CONT .Q10H HENRY Last Admin: 10/31/17 19:47 Dose: 100 mls/hr Lactulose (Lactulose Liq) 30 ml PO DAILY PRN PRN Reason: SEVERE CONSITIPATION Sennosides (Senokot) 17.2 mg PO Q12H PRN PRN Reason: Moderate Constipation Allergies Allergy/AdvReac Type Severity Reaction Status Date / Time erythromycin base Allergy Severe Hives Verified 10/31/17 16:57 penicillin G Allergy Severe Hives Verified 10/31/17 16:57 Home Medications Medication Instructions Recorded Confirmed Type atorvastatin 20 mg PO DAILY 09/14/17 10/31/17 History gabapentin 300 mg PO BID 09/14/17 10/31/17 History glimepiride 2 mg PO BID 09/14/17 10/31/17 History levothyroxine 88 mcg PO DAILY 09/14/17 10/31/17 History pantoprazole [Protonix] 40 mg PO DAILY 09/14/17 10/31/17 History quetiapine [Seroquel] 25 mg PO DAILY 09/14/17 10/31/17 History sertraline 50 mg PO DAILY 09/14/17 10/31/17 History valsartan 80 mg PO DAILY 09/14/17 10/31/17 History lorazepam [Ativan] 1 mg PO BID 10/31/17 10/31/17 History Exam Vital signs: Vital Signs 10/31/17 16:54 10/31/17 16:57 10/31/17 20:19 Temperature 98.5 F Pulse Rate 125 H 123 H 120 H Respiratory Rate 25 H 24 18 Blood Pressure 184/108 H 168/99 H 163/100 H Pulse Oximetry 94 L 96 95 10/31/17 20:45 Temperature Pulse Rate 121 H Respiratory Rate 18 Blood Pressure 176/110 H Pulse Oximetry 94 L Intake & Output 10/31/17 10/31/17 11/01/17 06:59 18:59 06:59 Intake Total 1000 / 1000 Balance 1000 / 1000 Weight 104.326 kg Intake: IV 1000 / 1000 NS Inj 1,000 ML @ Wide Open IV. 1000 / 1000 SIG BOLUS ONE Rx#:[id number] Narrative: GENERAL: Appears comfortable. SKIN: Warm and dry. HEAD: Atraumatic. Normocephalic. EYES: Pupils equal and round. No scleral icterus. No injection or drainage. ENT: No nasal bleeding or discharge. Mucous membranes pink and moist. NECK: Trachea midline. No JVD. CARDIOVASCULAR: Regular rate and rhythm. RESPIRATORY: No accessory muscle use. Clear to auscultation. Breath sounds equal bilaterally. GASTROINTESTINAL: Abdomen soft, non-tender, nondistended. Hepatic and splenic margins not palpable. MUSCULOSKELETAL: Extremities without clubbing, cyanosis, or edema. No obvious deformities. NEUROLOGICAL: Awake and alert. No obvious cranial nerve deficits. Patient with bilateral tremor. Five out of 5 muscle strength in the arms and legs. Normal speech. PSYCHIATRIC: Appropriate mood and affect; insight and judgment normal. Results - Labs CBC & Chem 7: 10/31/17 17:16 10/31/17 17:16 Labs: Short CBC 10/31/17 Range/Units 17:16 WBC 6.4 (4.0-11.0) th/mm3 Hgb 15.0 (13.0-17.0) gm/dL Hct 43.9 (39.0-51.0) % Plt Count 140 L (150-450) th/mm3 BMP 10/31/17 17:16 Sodium 136 Potassium 3.4 L Chloride 96 L Carbon Dioxide 25.2 BUN 12 Creatinine 0.96 Calcium 8.2 L Liver Function 10/31/17 Range/Units 17:16 Total Bilirubin 2.1 H (0.2-1.0) mg/dL AST 375 H (15-37) U/L ALT 230 H (12-78) U/L Alkaline Phosphatase 181 H (45-117) U/L Albumin 3.8 (3.4-5.0) g/dL Caprini VTE Risk Assessment Caprini VTE Risk Assessment: Moderate/High Risk (score >= 2) Caprini Risk Assessment Model: Point Value = 1 Point Value = 2 Point Value = 3 Point Value = 5 Age 41-60 Minor surgery BMI > 25 kg/m2 Swollen legs Varicose veins or History of unexplained or recurrent spontaneous Oral contraceptives or hormone replacement Sepsis (< 1 month) Serious lung disease, including pneumonia (< 1 month) Abnormal pulmonary function Acute myocardial infarction Congestive heart failure (< 1 month) History of inflammatory bowel disease Medical patient at bed rest Age 61-74 Arthroscopic surgery Major open surgery (> 45 min) Laparoscopic surgery (> 45 min) Malignancy Confined to bed (> 72 hours) Immobilizing plaster cast Central venous access Age >= 75 History of VTE Family history of VTE Factor V Leiden Prothrombin [id number] Lupus anticoagulant Anticardiolipin antibodies Elevated serum homocysteine Heparin-induced thrombocytopenia Other congenital or acquired thrombophilia Stroke (< 1 month) Elective arthroplasty Hip, pelvis, or leg fracture Acute spinal cord injury (< 1 month) Prophylaxis Regimen: Total Risk Factor Score Risk Level Prophylaxis Regimen 0-1 Low Early ambulation 2 Moderate Order ONE of the following: *Sequential Compression Device (SCD) *Heparin 5000 units SQ BID 3-4 Higher Order ONE of the following medications: *Heparin 5000 units SQ TID *Enoxaparin/Lovenox 40 mg SQ daily (WT < 150 kg, CrCl > 30 mL/min) *Enoxaparin/Lovenox 30 mg SQ daily (WT < 150 kg, CrCl > 10-29 mL/min) *Enoxaparin/Lovenox 30 mg SQ BID (WT < 150 kg, CrCl > 30 mL/min) AND/OR *Sequential Compression Device (SCD) 5 or more Highest Order ONE of the following medications: *Heparin 5000 units SQ TID (Preferred with Epidurals) *Enoxaparin/Lovenox 40 mg SQ daily (WT < 150 kg, CrCl > 30 mL/min) *Enoxaparin/Lovenox 30 mg SQ daily (WT < 150 kg, CrCl > 10-29 mL/min) *Enoxaparin/Lovenox 30 mg SQ BID (WT < 150 kg, CrCl > 30 mL/min) AND *Sequential Compression Device (SCD) Assessment and Plan - Plan //Alcohol withdrawal. -With tachycardia, tremors. Will order CIWA protocol. //Suicidal ideation Patient possibly overdosed on his medication. Will trend EKGs, keep on IV fluids. //GERD. Chronic. Continue home medication //Hypertension. Hypertensive in the 170s likely secondary alcohol withdrawal. Will order CIWA protocol. Continue home meds. 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, nurse, dr Tavarez
[2017-10-31] MEDS ORDERED: Haloperidol Inj 5 MG/ML Ampul IV.PUSH PRN (21:09)
[2017-10-31] MEDS ORDERED: Promethazine 25 MG Supp RECTAL PRN (21:09)
[2017-10-31] MEDS ORDERED: LORazepam 1 MG Tablet PO PRN (21:09)
[2017-10-31] MEDS ORDERED: Dextrose 50% in Water 50 ML Vial IV.PUSH PRN (21:13)
[2017-10-31 22:49] LABS: INR 1.7 Ratio; Prothrombin Time 17.4 sec (9.8-11.6)
[2017-11-01] MEDS: Sod Chloride 0.9% Inj 1,000 ML IV.CONT SCH ×3 (01:33→18:18)
[2017-11-01 07:33] LABS: Baso # (Auto) 0.1 th/mm3 (0.0-0.2); Eos % (Auto) 0.6 % (0.0-4.0); Hematocrit 42.9 % (39.0-51.0); Hemoglobin 14.8 gm/dL (13.0-17.0); Lymph # (Auto) 1.2 th/mm3 (1.0-4.8); Lymph % (Auto) 15.6 % (9.0-44.0); Mean Corpuscular HGB Conc 34.5 % (32.0-36.0); Mean Corpuscular Hemoglobin 32.3 pg (27.0-34.0); Mean Corpuscular Volume 93.4 fL (80.0-100.0); Mean Platelet Volume 8.4 fL (7.0-11.0); Mono # (Auto) 0.5 th/mm3 (0.0-0.9); Mono % (Auto) 6.2 % (0.0-8.0); Neut # (Auto) 5.8 th/mm3 (1.8-7.7); Neut % (Auto) 76.6 % (16.0-70.0); Platelet Count 115 th/mm3 (150-450); Red Blood Count 4.59 mil/mm3 (4.50-5.90); Red Cell Distribution Width 15.3 % (11.6-17.2); White Blood Count 7.6 th/mm3 (4.0-11.0)
[2017-11-01 07:57] LABS: Albumin 3.6 g/dL (3.4-5.0); Anion Gap 13 meq/L (5-15); Aspartate Aminotransferase 257 U/L (15-37); Blood Urea Nitrogen 9 mg/dL (7-18); Calcium 7.9 mg/dL (8.5-10.1); Carbon Dioxide 27.1 meq/L (21.0-32.0); Chloride 99 meq/L (98-107); Glucose,Random 137 mg/dL (74-106); Potassium 3.1 meq/L (3.5-5.1); Sodium 139 meq/L (136-145)
[2017-11-01 07:59] LABS: Alanine Aminotransferase 186 U/L (12-78); Glomerular Filtration Rate Greater Than 89 mL/min (>89); Total Protein 7.1 g/dL (6.4-8.2)
[2017-11-01 08:00] LABS: Alkaline Phosphatase 161 U/L (45-117)
[2017-11-01] MEDS: Insulin NovoLOG Aspart Correctional Sugar Inj SQ SCH ×4 (08:53→21:00)
--- NOTE | 2017-11-01 10:57 | ECG ---
Date Performed: 11/01/2017 Time Performed: 03:38:11 PTAGE: 61 years EKG: SINUS TACHYCARDIA INFERIOR MYOCARDIAL INFARCTION , PROBABLY OLD ABNORMAL ECG Since the PREVIOUS TRACING , no significant change noted PREVIOUS TRACIN10/31/2017 16.59 DOCTOR: Jagdish Juares Interpretating Date/Time 11/01/2017 10:56:12
--- NOTE | 2017-11-01 10:57 | ECG ---
Date Performed: 10/31/2017 Time Performed: 16:59:43 PTAGE: 61 years EKG: SINUS TACHYCARDIA ABNORMAL RHYTHM ECG Since the PREVIOUS TRACING , no significant change noted PREVIOUS TRACIN06/23/2016 23.46 DOCTOR: Jagdish Juares Interpretating Date/Time 11/01/2017 10:56:01
--- NOTE | 2017-11-01 14:42 | P.CONPSY ---
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 Alaniz, patient Seroquel 25 mg twice daily, Zoloft 50 mg, he was recently seen by Dr. Bliss with a very similar presentation at the beginning of the month, he was cleared, the recommendation review, with medical history of hypothyroidism, DM, hypertension who presents due to a 4 day alcohol binge, says he is unable to stop drinking. Reports history of withdrawals but no seizures in the past. He says he is suicidal but says he does not have a plan. He says he did take some extra tablets of Seroquel but was not trying to kill himself. He denies any fevers, chills, chest pain, shortness of breath. his patient called 911 to bring him to the ER for evaluation. He has been feeling suicidal. He is taken a few extra of his prescribed pills. He says he just did it to try to get a sleep and rather not specifically hurt himself with the pills. He is very vague as to what exactly he took and when and how many. It is not clear. He takes Ativan and Seroquel may have taken a couple extra beats she says. He does reports feeling depressed due to financial problems and marital disagreement. For this reason the patient reports that he has been depressed, anxious, with generalized pessimism, hopelessness, helplessness, worthlessness. At this moment he denies suicidal and homicidal ideation. He is fully oriented 3, no loosening of associations, no paranoia, no ideas of reference, no agitation or aggressive behavior present at the moment Past psychiatric history: The patient reports that he has a previous diagnosis of depression and bipolar disorder. He follows with Dr. Alaniz, although he reports he has been nonadherent with his prescribed psychotropics. He cannot recall the last time he was psychiatrically admitted. He denies a history of suicide attempts. Family history: The patient reports family history of depression in his mother and father. No family history of substance use disorder. No reported family history of suicide. Chemical dependency history: Patient describes himself as a binge drinker. Says he drinks vodka. When he does drink, he can consume up to 2 gallons of vodka in a day. He denies history of blackouts. Denies history of DTs or seizures. Denies any other substance use. Social history: Patient reports that he lives alone. He is from his . He has no children. 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 He denies any history. Denies any legal history. Denies any access to guns or firearms. [facility] - History History Provided By: Patient - Medical History Medical History: Medical History (Last Updated 10/31/17 @ 20:59 by Kvng Lim MD) No significant past surgical history Anxiety CVA (cerebral vascular accident) Diabetes Hypertension - Family History Family History: Family History (Last Updated 10/31/17 @ 21:00 by Kvng Lim MD) Mother Kidney carcinoma Father CAD (coronary artery disease) - Tobacco History Second Hand Smoke Exposure: No Smoking Status: Former smoker - Alcohol History How Often Do You Have a Drink Containing Alcohol: 4 or more times a week - Substance Use History Substance History: No History of Abuse - Travel History Recent Travel in the [place] Within the Last 8 Weeks: No Recent Travel Out of the Country Within the Last 8 Weeks: No - Immunization History Tetanus Immunization: Unsure Hx Influenza Vaccine This Season: No Medications and Allergies Active Medications: Active Medications Al Hydroxide/Mg Hydroxide (Milk Of Orion Ligiovani) 30 ml PO Q12H PRN PRN Reason: Mild Constipation Bisacodyl (Dulcolax Supp) 10 mg RECTAL DAILY PRN PRN Reason: SEVERE CONSITIPATION Chlordiazepoxide (Librium) 20 mg PO Q6H HENRY Last Admin: 11/01/17 11:28 Dose: 20 mg Clonidine HCl (Catapres) 0.1 mg PO Q6H PRN PRN Reason: SYS BP GREATER THAN 160 MMHG Last Admin: 11/01/17 09:49 Dose: 0.1 mg Dextrose (D50w Vial) 50 ml IV.PUSH UNSCH PRN PRN Reason: PER HYPOGLYCEMIA PROTOCOL Enalaprilat (Vasotec Inj) 1.25 mg IV.PUSH Q6H PRN PRN Reason: SBP>180, DBP>100, HR>65 Last Admin: 11/01/17 03:51 Dose: 1.25 mg Flumazenil (Romazecon Inj) 0.2 mg IV.PUSH Q1M PRN PRN Reason: OVERSEDATION Glucagon (Glucagon Inj) 1 mg OTHER PRN PRN PRN Reason: for Hypoglycemia Protocol Haloperidol Lactate (Haldol Inj) 1 mg IV.PUSH Q15M PRN PRN Reason: for severe agitation Sodium Chloride (Ns Inj) 1,000 mls @ 100 mls/hr IV.CONT .Q10H HENRY Last Infusion: 11/01/17 11:29 Dose: Infused Insulin Aspart (Novolog Insulin Correctional Sugar Inj) 0 unit SQ ACHS HENRY; Protocol Last Admin: 11/01/17 12:09 Dose: Not Given Lactulose (Lactulose Liq) 30 ml PO DAILY PRN PRN Reason: SEVERE CONSITIPATION Lorazepam (Ativan) 1 mg PO Q4H PRN PRN Reason: for CIWA 8-10 Last Admin: 11/01/17 14:18 Dose: 1 mg Lorazepam (Ativan) 2 mg PO Q2H PRN PRN Reason: for CIWA 11-14 Last Admin: 11/01/17 08:53 Dose: 2 mg Lorazepam (Ativan Inj) 2 mg IV.PUSH Q2H PRN PRN Reason: for CIWA 11-14 Last Admin: 11/01/17 02:59 Dose: 2 mg Lorazepam (Ativan Inj) 2 mg IV.PUSH Q1H PRN PRN Reason: for CIWA 15-20 Last Admin: 11/01/17 00:38 Dose: 2 mg Lorazepam (Ativan Inj) 2 mg IV.PUSH Q15M PRN PRN Reason: for CIWA > 20 Lorazepam (Ativan Inj) 1 mg IV.PUSH Q4H PRN PRN Reason: for CIWA 8-10 Last Admin: 10/31/17 21:41 Dose: 1 mg Ondansetron HCl (Zofran Odt) 4 mg PO Q6H PRN PRN Reason: NAUSEA OR VOMITING Last Admin: 11/01/17 14:18 Dose: 4 mg Ondansetron HCl (Zofran Inj) 4 mg IV.PUSH Q6H PRN PRN Reason: NAUSEA OR VOMITING Last Admin: 10/31/17 21:52 Dose: 4 mg Potassium Chloride (Klor-Con 10) 10 meq PO BID HENRY Stop: 11/03/17 23:59 Last Admin: 11/01/17 09:49 Dose: 10 meq Promethazine HCl (Phenergan) 25 mg PO Q6H PRN PRN Reason: NAUSEA OR VOMITING Promethazine HCl (Phenergan Supp) 25 mg RECTAL Q6H PRN PRN Reason: NAUSEA OR VOMITING Sennosides (Senokot) 17.2 mg PO Q12H PRN PRN Reason: Moderate Constipation Allergies Allergy/AdvReac Type Severity Reaction Status Date / Time erythromycin base Allergy Severe Hives Verified 10/31/17 16:57 penicillin G Allergy Severe Hives Verified 10/31/17 16:57 Home Medications Medication Instructions Recorded Confirmed Type atorvastatin 20 mg PO DAILY 09/14/17 10/31/17 History gabapentin 300 mg PO BID 09/14/17 10/31/17 History glimepiride 2 mg PO BID 09/14/17 10/31/17 History levothyroxine 88 mcg PO DAILY 09/14/17 10/31/17 History pantoprazole [Protonix] 40 mg PO DAILY 09/14/17 10/31/17 History quetiapine [Seroquel] 25 mg PO DAILY 09/14/17 10/31/17 History sertraline 50 mg PO DAILY 09/14/17 10/31/17 History valsartan 80 mg PO DAILY 09/14/17 10/31/17 History lorazepam [Ativan] 1 mg PO BID 10/31/17 10/31/17 History Exam Vital signs: Vital Signs 10/31/17 16:54 10/31/17 16:57 10/31/17 20:19 Temperature 98.5 F Pulse Rate 125 H 123 H 120 H Respiratory Rate 25 H 24 18 Blood Pressure 184/108 H 168/99 H 163/100 H Pulse Oximetry 94 L 96 95 10/31/17 20:45 10/31/17 21:15 10/31/17 22:25 Temperature Pulse Rate 121 H 115 H 120 H Respiratory Rate 18 18 18 Blood Pressure 176/110 H 187/104 H 184/98 H Pulse Oximetry 94 L 94 L 96 10/31/17 23:23 10/31/17 23:42 11/01/17 04:00 Temperature 100.4 F H Pulse Rate 99 H 122 H 115 H Respiratory Rate 18 18 20 Blood Pressure 176/96 H 143/84 H 182/100 H Pulse Oximetry 95 96 11/01/17 08:00 11/01/17 12:00 Temperature 97.8 F 98.9 F Pulse Rate 120 H 106 H Respiratory Rate 18 18 Blood Pressure 213/123 H 180/108 H Pulse Oximetry 95 96 Intake & Output 10/31/17 11/01/17 11/01/17 18:59 06:59 18:59 Intake Total 1000 / 1000 1000 / 1000 1000 / 1000 Output Total 500 / 500 Balance 1000 / 1000 500 / 500 1000 / 1000 Weight 104.326 kg 111.9 kg Intake: IV 1000 / 1000 1000 / 1000 1000 / 1000 NS Inj 1,000 ML @ 100 mls/hr IV 1000 / 1000 1000 / 1000 .CONT .Q10H HENRY Rx#:[id number] NS Inj 1,000 ML @ Wide Open IV. 1000 / 1000 SIG BOLUS ONE Rx#:[id number] Output: Urine 500 / 500 Other: Weight On Admission 111.9 kg Narrative: No withdrawal symptoms at the moment, no EPS, no stiffness, no catatonia, no psychomotor agitation or retardation Mental Status Examination Appearance: Appropriate Consciousness: Alert Orientation: x4 Motor Activity: Normal gait Speech: Unremarkable Language: Adequate Fund of Knowledge: Adequate Attention and Concentration: Adequate Memory: Unremarkable Mood: Sad Affect: Sad Thought Process & Associations: Intact Thought Content: Appropriate Hallucination Type: None Delusion Type: None Suicidal Ideation: No Suicidal Plan: No Suicidal Intention: No Homicidal Ideation: No Homicidal Plan: No Homicidal Intention: No Insight: Adequate Judgment: Adequate Assessment and Plan - Plan Plan: Estimated LOS: [] days On psychiatric evaluation today the patient presents calm, cooperative, endorses symptoms of depression in the context of separation from his and also economical problems. The patient reports that he has been feeling hopeless , helpless, with increased guiltiness, decreased energy and appetite, insomnia and suicidal ideation. The patient has recently overdose with a questionable nonsuicidal intentions. The patient has been on the [place] act 3 times in the last month for similar situation is no follow recommendations. He has psychiatric history of bipolar disorder, depression, previous psychiatric admissions, he denies suicidal attempts, he has outpatient care with Dr. Alaniz. I feel that the patient needs to be intervened given his elevated risk of danger to self and his continues severe alcohol use disorder, self neglecting and self injurious behavior. Patient will be admitted in [facility] was medically stable. Continue CIWA. I will restart Seroquel 25 mg twice daily. Zoloft 50 mg. extensive support, motivational psychoeducation provided. Continue 1:1 in the medical floor for safety Justification for Continued Inpatient Stay: Psychiatric admission indicated.
--- NOTE | 2017-11-01 17:18 | P.PNIM ---
Subjective Interval history: Improvement in liver today. Bilirubin has slightly worsened. No new complaints from the patient. Psychiatry has evaluated this patient has recommended transfer to psychiatric care after patient medically stable. Currently he has delirium tremens with tachycardia and hypertension, the need further management. Physical Exam Vital signs: Vital Signs 10/31/17 20:19 10/31/17 20:45 10/31/17 21:15 Temperature Pulse Rate 120 H 121 H 115 H Respiratory Rate 18 18 18 Blood Pressure 163/100 H 176/110 H 187/104 H Pulse Oximetry 95 94 L 94 L 10/31/17 22:25 10/31/17 23:23 10/31/17 23:42 Temperature Pulse Rate 120 H 99 H 122 H Respiratory Rate 18 18 18 Blood Pressure 184/98 H 176/96 H 143/84 H Pulse Oximetry 96 95 11/01/17 04:00 11/01/17 08:00 11/01/17 12:00 Temperature 100.4 F H 97.8 F 98.9 F Pulse Rate 115 H 120 H 106 H Respiratory Rate 20 18 18 Blood Pressure 182/100 H 213/123 H 180/108 H Pulse Oximetry 96 95 96 11/01/17 16:00 Temperature 99.5 F Pulse Rate 95 H Respiratory Rate 18 Blood Pressure 158/96 H Pulse Oximetry 96 Intake & Output 10/31/17 11/01/17 11/01/17 18:59 06:59 18:59 Intake Total 1000 / 1000 1000 / 1000 1000 / 1000 Output Total 500 / 500 Balance 1000 / 1000 500 / 500 1000 / 1000 Weight 104.326 kg 111.9 kg Intake: IV 1000 / 1000 1000 / 1000 1000 / 1000 NS Inj 1,000 ML @ 100 mls/hr IV 1000 / 1000 1000 / 1000 .CONT .Q10H HENRY Rx#:[id number] NS Inj 1,000 ML @ Wide Open IV. 1000 / 1000 SIG BOLUS ONE Rx#:[id number] Output: Urine 500 / 500 Other: Weight On Admission 111.9 kg Narrative: GENERAL: NAD, A&Ox3, tremors and diaphoresis globally. HEAD: Normocephalic. NECK: Supple, trachea midline. No lymphadenopathy. EYES: No scleral icterus. No injection or drainage. CARDIOVASCULAR: Regular rate and rhythm without murmurs, gallops, or rubs. RESPIRATORY: Breath sounds equal bilaterally. No accessory muscle use. GASTROINTESTINAL: Abdomen soft, non-tender, nondistended. MUSCULOSKELETAL: No cyanosis, or edema. SKIN: Warm and dry. NEURO: No focal neurological deficits. Results - Labs CBC & Chem 7: 11/01/17 07:01 11/01/17 07:01 Laboratory Results - last 24 hr 10/31/17 10/31/17 10/31/17 17:16 17:16 17:16 WBC 6.4 RBC 4.70 Hgb 15.0 Hct 43.9 MCV 93.5 MCH 31.9 MCHC 34.1 RDW 15.2 Plt Count 140 L MPV 8.5 Neut % (Auto) 70.5 H Lymph % (Auto) 22.6 [place] % (Auto) 5.9 Eos % (Auto) 0.2 Baso % (Auto) 0.8 Neut # (Auto) 4.5 Lymph # (Auto) 1.5 [place] # (Auto) 0.4 Eos # (Auto) 0.0 Baso # (Auto) 0.1 WBC Differential . Differential Comment Auto diff final PT INR Sodium 136 Potassium 3.4 L Chloride 96 L Carbon Dioxide 25.2 Anion Gap 15 BUN 12 Creatinine 0.96 Estimated GFR 80 L POC Glucose Random Glucose 221 H Calcium 8.2 L Total Bilirubin 2.1 H AST 375 H ALT 230 H Alkaline Phosphatase 181 H Total Protein 8.1 Albumin 3.8 TSH 2.190 Salicylates Less than 1.7 L Urine Opiates Screen Acetaminophen Less than 2.0 L Ur Barbiturates Screen Ur Amphetamines Screen U Benzodiazepines Scrn Urine Cocaine Screen U Cannabinoids Screen Serum Alcohol 243 H 10/31/17 10/31/17 11/01/17 17:18 22:15 07:01 WBC 7.6 RBC 4.59 Hgb 14.8 Hct 42.9 MCV 93.4 MCH 32.3 MCHC 34.5 RDW 15.3 Plt Count 115 L MPV 8.4 Neut % (Auto) 76.6 H Lymph % (Auto) 15.6 [place] % (Auto) 6.2 Eos % (Auto) 0.6 Baso % (Auto) 1.0 Neut # (Auto) 5.8 Lymph # (Auto) 1.2 [place] # (Auto) 0.5 Eos # (Auto) 0.0 Baso # (Auto) 0.1 WBC Differential . Differential Comment Auto diff final PT 17.4 H INR 1.7 Sodium Potassium Chloride Carbon Dioxide Anion Gap BUN Creatinine Estimated GFR POC Glucose Random Glucose Calcium Total Bilirubin AST ALT Alkaline Phosphatase Total Protein Albumin TSH Salicylates Urine Opiates Screen Neg Acetaminophen Ur Barbiturates Screen Neg Ur Amphetamines Screen Neg U Benzodiazepines Scrn Neg Urine Cocaine Screen Neg U Cannabinoids Screen Neg Serum Alcohol 11/01/17 11/01/17 11/01/17 07:01 08:50 12:05 WBC RBC Hgb Hct MCV MCH MCHC RDW Plt Count MPV Neut % (Auto) Lymph % (Auto) [place] % (Auto) Eos % (Auto) Baso % (Auto) Neut # (Auto) Lymph # (Auto) [place] # (Auto) Eos # (Auto) Baso # (Auto) WBC Differential Differential Comment PT INR Sodium 139 Potassium 3.1 L Chloride 99 Carbon Dioxide 27.1 Anion Gap 13 BUN 9 Creatinine 0.81 Estimated GFR Greater than 89 POC Glucose 180 H 160 H Random Glucose 137 H Calcium 7.9 L Total Bilirubin 3.0 H AST 257 H ALT 186 H Alkaline Phosphatase 161 H Total Protein 7.1 D Albumin 3.6 TSH Salicylates Urine Opiates Screen Acetaminophen Ur Barbiturates Screen Ur Amphetamines Screen U Benzodiazepines Scrn Urine Cocaine Screen U Cannabinoids Screen Serum Alcohol 11/01/17 16:57 WBC RBC Hgb Hct MCV MCH MCHC RDW Plt Count MPV Neut % (Auto) Lymph % (Auto) [place] % (Auto) Eos % (Auto) Baso % (Auto) Neut # (Auto) Lymph # (Auto) [place] # (Auto) Eos # (Auto) Baso # (Auto) WBC Differential Differential Comment PT INR Sodium Potassium Chloride Carbon Dioxide Anion Gap BUN Creatinine Estimated GFR POC Glucose 196 H Random Glucose Calcium Total Bilirubin AST ALT Alkaline Phosphatase Total Protein Albumin TSH Salicylates Urine Opiates Screen Acetaminophen Ur Barbiturates Screen Ur Amphetamines Screen U Benzodiazepines Scrn Urine Cocaine Screen U Cannabinoids Screen Serum Alcohol Assessment and Plan - Assessment (1) Delirium tremens Code(s): F10.231 - Alcohol dependence with withdrawal delirium Status: Acute (2) Overdose Code(s): T50.901A - Poisoning by unspecified drugs, medicaments and biological substances, accidental (unintentional), initial encounter Status: Acute (3) Suicidal ideation Code(s): R45.851 - Suicidal ideations Status: Acute - Plan 61-year-old male admitted secondary to overdose and alcohol withdrawal Delirium tremens Alcohol withdrawal Continue CIWA protocol Librium added as a baseline treatment Monitor for stability next time monitor for seizure activity Monitor blood pressures Monitor heart rate Follow on telemetry Depression Suicidal ideation History of bipolar disorder Psychiatry following Plan to discharge to psychiatry once medically stable Hypertension Continue baseline treatment Follow blood pressures Adjust treatments as needed Currently exacerbated secondary to alcohol withdrawal DVT prophylaxis SCDs (2) Overdose Qualifiers: Encounter type: initial encounter Injury intent: undetermined intent Qualified Code(s): T50.904A - Poisoning by unspecified drugs, medicaments and biological substances, undetermined, initial encounter
[2017-11-01] MEDS: Sertraline 50 MG Tablet PO SCH (17:32)
[2017-11-02] MEDS: Sod Chloride 0.9% Inj 1,000 ML IV.CONT SCH ×2 (01:39→13:52)
[2017-11-02 06:21] LABS: Baso % (Auto) 0.9 % (0.0-2.0); Eos # (Auto) 0.1 th/mm3 (0.0-0.4); Eos % (Auto) 2.3 % (0.0-4.0); Hemoglobin 13.9 gm/dL (13.0-17.0); Lymph # (Auto) 1.3 th/mm3 (1.0-4.8); Lymph % (Auto) 28.6 % (9.0-44.0); Mean Corpuscular HGB Conc 33.9 % (32.0-36.0); Mean Corpuscular Hemoglobin 31.9 pg (27.0-34.0); Mean Platelet Volume 8.7 fL (7.0-11.0); Mono # (Auto) 0.3 th/mm3 (0.0-0.9); Neut # (Auto) 2.8 th/mm3 (1.8-7.7); Neut % (Auto) 61.2 % (16.0-70.0); Platelet Count 76 th/mm3 (150-450); Red Blood Count 4.36 mil/mm3 (4.50-5.90); Red Cell Distribution Width 15.2 % (11.6-17.2); White Blood Count 4.5 th/mm3 (4.0-11.0)
[2017-11-02 07:04] LABS: Alanine Aminotransferase 142 U/L (12-78); Alkaline Phosphatase 141 U/L (45-117); Anion Gap 10 meq/L (5-15); Aspartate Aminotransferase 185 U/L (15-37); Blood Urea Nitrogen 12 mg/dL (7-18); Carbon Dioxide 29.9 meq/L (21.0-32.0); Chloride 101 meq/L (98-107); Glomerular Filtration Rate 69 mL/min (>89); Glucose,Random 184 mg/dL (74-106); Potassium 3.2 meq/L (3.5-5.1); Sodium 141 meq/L (136-145); Total Protein 6.4 g/dL (6.4-8.2)
[2017-11-02] MEDS ORDERED: QUEtiapine 25 MG Tablet PO SCH (09:00)
[2017-11-02] MEDS: Sertraline 50 MG Tablet PO SCH (09:01)
[2017-11-02 09:02] LABS: Platelet Morphology Normal (Normal)
[2017-11-02] MEDS: Insulin NovoLOG Aspart Correctional Sugar Inj SQ SCH ×4 (09:36→21:54)
--- NOTE | 2017-11-02 17:05 | P.PNIM ---
Subjective Interval history: Patient has improvement in withdrawal symptoms on Librium with the CIWA protocol. Potassium is low this morning but is corrected by this afternoon. Option for discharge to inpatient medical psychiatry is discussed with the patient. He has no interest in discharging to a psychiatric care facility. Have advised him that he should at least stay so that we can wean him off of his Librium to avoid relapse of his delirium tremens. Currently the patient is contemplating going AMA. He has been advised not to leave AMA. Physical Exam Vital signs: Vital Signs 11/01/17 20:00 11/02/17 00:00 11/02/17 04:00 Temperature 98.4 F 97.7 F 98.0 F Pulse Rate 98 H 91 H 91 H Respiratory Rate 20 20 18 Blood Pressure 164/95 H 134/77 160/100 H Pulse Oximetry 95 95 96 11/02/17 08:00 11/02/17 12:00 11/02/17 16:00 Temperature 97.6 F 97.6 F 96.7 F L Pulse Rate 70 90 68 Respiratory Rate 16 18 18 Blood Pressure 165/107 H 126/77 157/95 H Pulse Oximetry 96 96 95 Intake & Output 11/01/17 11/02/17 11/02/17 18:59 06:59 18:59 Intake Total 1720 / 1720 480 / 480 Output Total 800 / 800 Balance 920 / 920 480 / 480 Weight 111.9 kg Intake: IV 1000 / 1000 NS Inj 1,000 ML @ 100 mls/hr IV 1000 / 1000 .CONT .Q10H [facility] Rx#:[id number] Oral 720 / 720 480 / 480 Output: Urine 800 / 800 Other: # Voids 3 # Bowel Movements 1 Narrative: GENERAL: NAD, A&Ox3, HEAD: Normocephalic. NECK: Supple, trachea midline. No lymphadenopathy. EYES: No scleral icterus. No injection or drainage. CARDIOVASCULAR: Regular rate and rhythm without murmurs, gallops, or rubs. RESPIRATORY: Breath sounds equal bilaterally. No accessory muscle use. GASTROINTESTINAL: Abdomen soft, non-tender, nondistended. MUSCULOSKELETAL: No cyanosis, or edema. SKIN: Warm and dry. NEURO: No focal neurological deficits. Results - Labs CBC & Chem 7: 11/02/17 06:00 11/02/17 13:50 Laboratory Results - last 24 hr 11/01/17 11/02/17 11/02/17 20:47 06:00 06:00 WBC 4.5 RBC 4.36 L Hgb 13.9 Hct 41.0 MCV 94.0 MCH 31.9 MCHC 33.9 RDW 15.2 Plt Count 76 L D MPV 8.7 Prelim Diff (Auto) Slide review pending Neut % (Auto) 61.2 Lymph % (Auto) 28.6 [place] % (Auto) 7.0 Eos % (Auto) 2.3 Baso % (Auto) 0.9 Neut # (Auto) 2.8 Lymph # (Auto) 1.3 [place] # (Auto) 0.3 Eos # (Auto) 0.1 Baso # (Auto) 0.0 WBC Differential . Diff Scan Auto diff confirmed Differential Comment . Platelet Estimate Low L Platelet Morphology Normal Sodium 141 Potassium 3.2 L Chloride 101 Carbon Dioxide 29.9 Anion Gap 10 BUN 12 Creatinine 1.09 Estimated GFR 69 L POC Glucose 280 H Random Glucose 184 H Calcium 8.0 L Total Bilirubin 3.0 H AST 185 H ALT 142 H Alkaline Phosphatase 141 H Total Protein 6.4 D Albumin 3.0 L D 11/02/17 11/02/17 09:04 13:50 WBC RBC Hgb Hct MCV MCH MCHC RDW Plt Count MPV Prelim Diff (Auto) Neut % (Auto) Lymph % (Auto) [place] % (Auto) Eos % (Auto) Baso % (Auto) Neut # (Auto) Lymph # (Auto) [place] # (Auto) Eos # (Auto) Baso # (Auto) WBC Differential Diff Scan Differential Comment Platelet Estimate Platelet Morphology Sodium Potassium 3.6 Chloride Carbon Dioxide Anion Gap BUN Creatinine Estimated GFR POC Glucose 190 H Random Glucose Calcium Total Bilirubin AST ALT Alkaline Phosphatase Total Protein Albumin Assessment and Plan - Assessment (1) Delirium tremens Code(s): F10.231 - Alcohol dependence with withdrawal delirium Status: Acute (2) Overdose Code(s): T50.901A - Poisoning by unspecified drugs, medicaments and biological substances, accidental (unintentional), initial encounter Status: Acute (3) Suicidal ideation Code(s): R45.851 - Suicidal ideations Status: Acute - Plan 61-year-old male admitted secondary to overdose and alcohol withdrawal Delirium tremens Alcohol withdrawal Improved on treatment Stopping treatments would result in the relapse of delirium tremens and this is discussed with the patient Continue CIWA protocol Librium added as a baseline treatment Monitor for stability next time monitor for seizure activity Monitor blood pressures Monitor heart rate Follow on telemetry Depression Suicidal ideation History of bipolar disorder Psychiatry following Patient refuses plan to discharge to psychiatry once medically stable Hypertension Continue baseline treatment Follow blood pressures Adjust treatments as needed Improved with medicinal control delirium tremens DVT prophylaxis SCDs Discharge planning Patient is considering leaving AGAINST MEDICAL ADVICE even though he strongly advised not to do this. (2) Overdose Qualifiers: Encounter type: initial encounter Injury intent: undetermined intent Qualified Code(s): T50.904A - Poisoning by unspecified drugs, medicaments and biological substances, undetermined, initial encounter
[2017-11-02] MEDS: QUEtiapine 25 MG Tablet PO SCH (22:21)
[2017-11-03] MEDS: Sod Chloride 0.9% Inj 1,000 ML IV.CONT SCH ×3 (00:06→17:11)
[2017-11-03] MEDS: Sertraline 50 MG Tablet PO SCH (08:25)
[2017-11-03] MEDS: QUEtiapine 25 MG Tablet PO SCH ×2 (08:27→21:54)
[2017-11-03] MEDS: Insulin NovoLOG Aspart Correctional Sugar Inj SQ SCH ×4 (08:31→22:07)
[2017-11-03 08:40] LABS: Baso % (Auto) 0.7 % (0.0-2.0); Eos # (Auto) 0.2 th/mm3 (0.0-0.4); Eos % (Auto) 4.1 % (0.0-4.0); Hematocrit 39.2 % (39.0-51.0); Hemoglobin 13.5 gm/dL (13.0-17.0); Lymph # (Auto) 1.1 th/mm3 (1.0-4.8); Lymph % (Auto) 24.8 % (9.0-44.0); Mean Corpuscular HGB Conc 34.4 % (32.0-36.0); Mean Corpuscular Hemoglobin 31.9 pg (27.0-34.0); Mean Corpuscular Volume 92.8 fL (80.0-100.0); Mean Platelet Volume 8.9 fL (7.0-11.0); Mono # (Auto) 0.3 th/mm3 (0.0-0.9); Mono % (Auto) 7.1 % (0.0-8.0); Neut # (Auto) 2.9 th/mm3 (1.8-7.7); Neut % (Auto) 63.3 % (16.0-70.0); Platelet Count 82 th/mm3 (150-450); Red Blood Count 4.22 mil/mm3 (4.50-5.90); Red Cell Distribution Width 14.9 % (11.6-17.2); White Blood Count 4.5 th/mm3 (4.0-11.0)
[2017-11-03 09:06] LABS: Alanine Aminotransferase 138 U/L (12-78); Albumin 3.1 g/dL (3.4-5.0); Anion Gap 11 meq/L (5-15); Aspartate Aminotransferase 149 U/L (15-37); Carbon Dioxide 30.1 meq/L (21.0-32.0); Chloride 99 meq/L (98-107); Glomerular Filtration Rate 73 mL/min (>89); Glucose,Random 160 mg/dL (74-106); Potassium 3.4 meq/L (3.5-5.1); Sodium 140 meq/L (136-145)
[2017-11-03 09:12] LABS: Alkaline Phosphatase 124 U/L (45-117); Blood Urea Nitrogen 13 mg/dL (7-18); Total Protein 6.6 g/dL (6.4-8.2)
--- NOTE | 2017-11-03 09:53 | P.PNIM ---
Subjective Interval history: No delirium tremens overnight. Patient is on 80 mg of Librium daily. This will be weaned down to 20. Patient is asked to monitor for any withdrawal symptoms. Physical Exam Vital signs: Vital Signs 11/02/17 12:00 11/02/17 16:00 11/02/17 20:00 Temperature 97.6 F 96.7 F L 97.9 F Pulse Rate 90 68 88 Respiratory Rate 18 18 20 Blood Pressure 126/77 157/95 H 154/89 H Pulse Oximetry 96 95 96 11/02/17 23:50 11/03/17 00:00 11/03/17 02:00 Temperature 98.2 F Pulse Rate 78 78 Respiratory Rate 16 18 Blood Pressure 163/100 H Pulse Oximetry 95 11/03/17 04:00 11/03/17 08:00 Temperature 98.1 F 98.0 F Pulse Rate 64 65 Respiratory Rate 16 16 Blood Pressure 125/73 175/112 H Pulse Oximetry 95 95 Intake & Output 11/02/17 11/03/17 11/03/17 18:59 06:59 18:59 Intake Total 960 / 960 Balance 960 / 960 Intake: Oral 960 / 960 Other: # Voids 3 Date of Last Bowel Movement 11/03/17 # Bowel Movements 2 Narrative: GENERAL: NAD, A&Ox3, HEAD: Normocephalic. NECK: Supple, trachea midline. No lymphadenopathy. EYES: No scleral icterus. No injection or drainage. CARDIOVASCULAR: Regular rate and rhythm without murmurs, gallops, or rubs. RESPIRATORY: Breath sounds equal bilaterally. No accessory muscle use. GASTROINTESTINAL: Abdomen soft, non-tender, nondistended. MUSCULOSKELETAL: No cyanosis, or edema. SKIN: Warm and dry. NEURO: No focal neurological deficits. Results - Labs CBC & Chem 7: 11/03/17 07:45 11/03/17 07:45 Laboratory Results - last 24 hr 11/02/17 11/02/17 11/03/17 13:50 19:55 07:45 WBC 4.5 RBC 4.22 L Hgb 13.5 Hct 39.2 MCV 92.8 MCH 31.9 MCHC 34.4 RDW 14.9 Plt Count 82 L MPV 8.9 Prelim Diff (Auto) Slide review pending Neut % (Auto) 63.3 Lymph % (Auto) 24.8 [place] % (Auto) 7.1 Eos % (Auto) 4.1 H Baso % (Auto) 0.7 Neut # (Auto) 2.9 Lymph # (Auto) 1.1 [place] # (Auto) 0.3 Eos # (Auto) 0.2 Baso # (Auto) 0.0 Differential Comment . Sodium Potassium 3.6 Chloride Carbon Dioxide Anion Gap BUN Creatinine Estimated GFR POC Glucose 194 H Random Glucose Calcium Total Bilirubin AST ALT Alkaline Phosphatase Total Protein Albumin 11/03/17 11/03/17 07:45 08:24 WBC RBC Hgb Hct MCV MCH MCHC RDW Plt Count MPV Prelim Diff (Auto) Neut % (Auto) Lymph % (Auto) [place] % (Auto) Eos % (Auto) Baso % (Auto) Neut # (Auto) Lymph # (Auto) [place] # (Auto) Eos # (Auto) Baso # (Auto) Differential Comment Sodium 140 Potassium 3.4 L Chloride 99 Carbon Dioxide 30.1 Anion Gap 11 BUN 13 Creatinine 1.04 Estimated GFR 73 L POC Glucose 175 H Random Glucose 160 H Calcium 8.0 L Total Bilirubin 2.2 H AST 149 H ALT 138 H Alkaline Phosphatase 124 H Total Protein 6.6 Albumin 3.1 L Assessment and Plan - Assessment (1) Delirium tremens Code(s): F10.231 - Alcohol dependence with withdrawal delirium Status: Acute (2) Overdose Code(s): T50.901A - Poisoning by unspecified drugs, medicaments and biological substances, accidental (unintentional), initial encounter Status: Acute (3) Suicidal ideation Code(s): R45.851 - Suicidal ideations Status: Acute - Plan 61-year-old male admitted secondary to overdose and alcohol withdrawal Decreased Librium from 20 mg every 6 hours down to 5 mg every 6 hours. Monitor for withdrawal symptoms. Steep wean as per patient's preferences. Delirium tremens Alcohol withdrawal Improved on treatment Stopping treatments would result in the relapse of delirium tremens and this is discussed with the patient Continue CIWA protocol Librium added as a baseline treatment Monitor for stability next time monitor for seizure activity Monitor blood pressures Monitor heart rate Follow on telemetry Depression Suicidal ideation History of bipolar disorder Psychiatry following Patient refuses plan to discharge to psychiatry once medically stable Hypertension Continue baseline treatment Follow blood pressures Adjust treatments as needed Improved with medicinal control delirium tremens DVT prophylaxis SCDs Discharge planning Patient is considering leaving AGAINST MEDICAL ADVICE even though he strongly advised not to do this. (2) Overdose Qualifiers: Encounter type: initial encounter Injury intent: undetermined intent Qualified Code(s): T50.904A - Poisoning by unspecified drugs, medicaments and biological substances, undetermined, initial encounter
[2017-11-03 13:57] LABS: Platelet Morphology Normal (Normal)
[2017-11-03] MEDS ORDERED: QUEtiapine 25 MG Tablet PO ONE (23:35)
[2017-11-04 06:07] LABS: Alanine Aminotransferase 135 U/L (12-78); Albumin 3.2 g/dL (3.4-5.0); Anion Gap 12 meq/L (5-15); Aspartate Aminotransferase 114 U/L (15-37); Blood Urea Nitrogen 13 mg/dL (7-18); Calcium 8.3 mg/dL (8.5-10.1); Carbon Dioxide 26.7 meq/L (21.0-32.0); Chloride 101 meq/L (98-107); Glomerular Filtration Rate 81 mL/min (>89); Glucose,Random 147 mg/dL (74-106); Potassium 3.5 meq/L (3.5-5.1); Sodium 140 meq/L (136-145)
[2017-11-04 06:09] LABS: Alkaline Phosphatase 122 U/L (45-117); Total Protein 6.7 g/dL (6.4-8.2)
[2017-11-04] MEDS: Sod Chloride 0.9% Inj 1,000 ML IV.CONT SCH (06:27)
[2017-11-04] MEDS: Insulin NovoLOG Aspart Correctional Sugar Inj SQ SCH ×2 (07:57→12:01)
[2017-11-04] MEDS: QUEtiapine 25 MG Tablet PO SCH (08:50)
[2017-11-04] MEDS: Sertraline 50 MG Tablet PO SCH (08:51)
--- NOTE | 2017-11-04 11:42 | P.PNIM ---
Subjective Interval history: Mr. Canseco is a 61-year-old male. He has a chronic problem with alcoholism. He was admitted secondary to alcohol intoxication and overdose of Seroquel. No signs of any liver damage. No abnormal changes on EKG. No signs of neurologic changes. He denies that the overdose was due to suicidal intent. He does acknowledge being depressed. [facility] has recommended inpatient psychiatric care with this patient has declined that option. He is not under Barron act. She did enter delirium tremens and this was treated with Librium taper in the CIWA protocol. Patient has weaned off of Librium and has not been requiring IV Ativan since this morning. No signs of recurrence of delirium tremens. At this point he is medically stable and cleared for discharge to home. He is advised to avoid alcohol. Physical Exam Vital signs: Vital Signs 11/03/17 12:00 11/03/17 16:00 11/03/17 17:30 Temperature 97.8 F 98.6 F Pulse Rate 93 H 75 Respiratory Rate 16 16 Blood Pressure 158/100 H 170/95 H 143/75 H Pulse Oximetry 95 95 11/03/17 20:00 11/04/17 00:00 11/04/17 04:00 Temperature 98 F 98.1 F 97.5 F L Pulse Rate 82 74 79 Respiratory Rate 18 18 18 Blood Pressure 158/91 H 151/64 H 158/88 H Pulse Oximetry 95 96 96 11/04/17 07:41 11/04/17 08:00 Temperature 98.0 F Pulse Rate 86 70 Respiratory Rate 14 Blood Pressure 162/92 H Pulse Oximetry 92 L Intake & Output 11/03/17 11/04/17 11/04/17 18:59 06:59 18:59 Intake Total 250 / 250 Balance 250 / 250 Weight 111.9 kg Intake: Oral 250 / 250 Other: # Voids 4 Date of Last Bowel Movement 11/04/17 11/04/17 # Bowel Movements 1 Results - Labs CBC & Chem 7: 11/03/17 07:45 11/04/17 05:03 Laboratory Results - last 24 hr 11/03/17 11/03/17 11/03/17 07:45 12:17 17:29 WBC Differential . Diff Scan Auto diff confirmed Platelet Estimate Low L Platelet Morphology Normal Sodium Potassium Chloride Carbon Dioxide Anion Gap BUN Creatinine Estimated GFR POC Glucose 179 H 173 H Random Glucose Calcium Total Bilirubin AST ALT Alkaline Phosphatase Total Protein Albumin 11/03/17 11/04/17 11/04/17 21:51 05:03 07:31 WBC Differential Diff Scan Platelet Estimate Platelet Morphology Sodium 140 Potassium 3.5 Chloride 101 Carbon Dioxide 26.7 Anion Gap 12 BUN 13 Creatinine 0.95 Estimated GFR 81 L POC Glucose 185 H 147 H Random Glucose 147 H Calcium 8.3 L Total Bilirubin 1.7 H AST 114 H ALT 135 H Alkaline Phosphatase 122 H Total Protein 6.7 Albumin 3.2 L 11/04/17 11:14 WBC Differential Diff Scan Platelet Estimate Platelet Morphology Sodium Potassium Chloride Carbon Dioxide Anion Gap BUN Creatinine Estimated GFR POC Glucose 210 H Random Glucose Calcium Total Bilirubin AST ALT Alkaline Phosphatase Total Protein Albumin Assessment and Plan - Assessment (1) Delirium tremens Code(s): F10.231 - Alcohol dependence with withdrawal delirium Status: Acute (2) Overdose Code(s): T50.901A - Poisoning by unspecified drugs, medicaments and biological substances, accidental (unintentional), initial encounter Status: Acute (3) Suicidal ideation Code(s): R45.851 - Suicidal ideations Status: Acute - Plan 61-year-old male admitted secondary to overdose and alcohol withdrawal Decreased Librium from 20 mg every 6 hours down to 5 mg every 6 hours. Monitor for withdrawal symptoms. Steep wean as per patient's preferences. Delirium tremens Alcohol withdrawal Improved on treatment Stopping treatments would result in the relapse of delirium tremens and this is discussed with the patient Continue CIWA protocol Librium added as a baseline treatment Monitor for stability next time monitor for seizure activity Monitor blood pressures Monitor heart rate Follow on telemetry Depression Suicidal ideation History of bipolar disorder Psychiatry following Patient refuses plan to discharge to psychiatry once medically stable Hypertension Continue baseline treatment Follow blood pressures Adjust treatments as needed Improved with medicinal control delirium tremens DVT prophylaxis SCDs Discharge planning Patient is considering leaving AGAINST MEDICAL ADVICE even though he strongly advised not to do this. (2) Overdose Qualifiers: Encounter type: initial encounter Injury intent: undetermined intent Qualified Code(s): T50.904A - Poisoning by unspecified drugs, medicaments and biological substances, undetermined, initial encounter
[2017-11-04 12:02] VITALS: BP 126/78; PULSE 87; RESP 16; TEMP 97.8; O2SAT 94
--- NOTE | 2017-11-28 18:33 | P.DS ---
Date of admission: 10/31/17 18:46 Primary care physician: UNKNOWN Brief History from admission: 61-year-old male with a history of alcoholism, bipolar disorder, hypothyroidism , hypertension who presents due to a 4 day alcohol binge, says he is unable to stop drinking. Reports history of withdrawals but no seizures in the past. He says he is suicidal but says he does not have a plan. He says he did take some extra tablets of Seroquel but was not trying to kill himself. He denies any fevers, chills, chest pain, shortness of breath. DS: Diagnosis - Discharge Diagnosis (1) Delirium tremens Status: Acute (2) Overdose Status: Acute (3) Suicidal ideation Status: Acute DS: Medications - Discharge Medications Prescriptions: atorvastatin 20 mg PO DAILY #30 tab gabapentin 300 mg PO BID #60 tab glimepiride 2 mg PO BID #60 tab levothyroxine 88 mcg PO DAILY #30 tab pantoprazole [Protonix] 40 mg PO DAILY #30 tab quetiapine [Seroquel] 50 mg PO HS #60 tab sertraline 50 mg PO DAILY #30 tab valsartan 80 mg PO DAILY #30 tab DS: Summary Hospital Course: Mr. Canseco is a 61-year-old male. He has a chronic problem with alcoholism. He was admitted secondary to alcohol intoxication and overdose of Seroquel. No signs of any liver damage. No abnormal changes on EKG. No signs of neurologic changes. He denies that the overdose was due to suicidal intent. He does acknowledge being depressed. [facility] has recommended inpatient psychiatric care with this patient has declined that option. He is not under Barron act. She did enter delirium tremens and this was treated with Librium taper in the CIWA protocol. Patient has weaned off of Librium and has not been requiring IV Ativan since this morning. No signs of recurrence of delirium tremens. At this point he is medically stable and cleared for discharge to home (on 11/04/17) . He is advised to avoid alcohol. - Time Spent with Patient Total time spent providing and/or coordinating discharge services: Less than 30 minutes - Quality: VTE Deep Vein Thrombosis/Pulmonary Embolism Present on Admission: No Results Procedures completed during hospitalization: None Discharge Plan - Discharge Disposition Patient Disposition: 01 Discharge Home - Discharge Condition Condition: Stable - Discharge Order Discharge Orders: Discharge Order (Routine); Ordered 11/04/17 Ordered By: Tod Sanabria - Discharge Details Anticipated Discharge Date: 11/04/17 - Physicians Team Primary Care Provider: UNKNOWN, Attending Provider: Tod Sanabria Other Providers: Kosta Barraza MD
== END 2017-11-04 13:45 | disposition home or self-care (01) ==
LOC: NEPE 16:43 → NEDA 18:46 → INTOOBSV 18:46 → NEDA 11-01 00:07 → H7ONC 11-01 00:12 → N06 11-02 18:34
PROVIDERS: ADMIT Hospitalist; ATTEND Hospitalist

== ENCOUNTER 2018-01-14 21:29 | Inpatient (IN) ==
[2018-01-14] MEDS ORDERED: Propofol 1000 mg/100 ml Inj 1,000 MG/100 ML BOTTLE ONE (21:41)
[2018-01-14] MEDS ORDERED: Etomidate Inj 40 MG/20 ML Vial IV.PUSH ONE (21:58)
[2018-01-14] MEDS ORDERED: Succinylcholine Inj 100 MG/5 ML Syringe IV.PUSH ONE (21:58)
[2018-01-14] MEDS ORDERED: Sod Chloride 0.9% Inj 1,000 ML IV.CONT SCH (22:00)
[2018-01-14 22:43] LABS: Baso % (Auto) 0.2 % (0.0-2.0); Hematocrit 42.5 % (39.0-51.0); Hemoglobin 14.3 gm/dL (13.0-17.0); Lymph # (Auto) 1.1 th/mm3 (1.0-4.8); Lymph % (Auto) 5.4 % (9.0-44.0); Mean Corpuscular HGB Conc 33.6 % (32.0-36.0); Mean Corpuscular Volume 92.4 fL (80.0-100.0); Mono # (Auto) 0.7 th/mm3 (0.0-0.9); Mono % (Auto) 3.4 % (0.0-8.0); Neut # (Auto) 18.4 th/mm3 (1.8-7.7); Platelet Count 135 th/mm3 (150-450); Red Cell Distribution Width 14.5 % (11.6-17.2); White Blood Count 20.3 th/mm3 (4.0-11.0)
--- NOTE | 2018-01-14 23:01 | XR ---
EXAM DATE: 01/14/2018 10:58 PM EST AGE/SEX: 62 years / Male INDICATIONS: Post intubation CLINICAL DATA: This is the patient's initial encounter. Patient reports that signs and symptoms have been present for 1 day and indicates a pain score of Nonresponsive. MEDICAL/SURGICAL HISTORY: . . Diabetes. Hypertension. Cerebrovascular disease None. COMPARISON: [facility] – [place], CHEST PA & LAT, 09/21/2016. . FINDINGS: ET tube tip well above the alberto. There are patchy areas of parenchymal consolidation in the central lungs bilaterally with some air bronchograms. There is prominent subcutaneous emphysema about the [place] praclavicular region and in the right pectoralis muscle. There is also lucency outlining the arch of the aorta suggesting pneumomediastinum. The heart is normal in size. No definite evidence of pneumoth orax. CONCLUSION: 1. ET tube in good position. 2. Subcutaneous emphysema clavicular and chest wall region. 3. Probable pneumomediastinum. Electronically signed by: Luis Nielsen MD 01/14/2018 11:00 PM EST
[2018-01-14 23:07] LABS: Alanine Aminotransferase 190 U/L (12-78); Alkaline Phosphatase 181 U/L (45-117); Anion Gap 35 meq/L (5-15); Aspartate Aminotransferase 617 U/L (15-37); Blood Urea Nitrogen 17 mg/dL (7-18); Calcium 8.5 mg/dL (8.5-10.1); Carbon Dioxide 14.9 meq/L (21.0-32.0); Chloride 86 meq/L (98-107); Glomerular Filtration Rate 29 mL/min (>89); Glucose,Random 124 mg/dL (74-106); Magnesium 4.3 mg/dL (1.5-2.5); Potassium 4.9 meq/L (3.5-5.1); Sodium 136 meq/L (136-145); Total Protein 8.2 g/dL (6.4-8.2); Troponin I 0.52 ng/mL (0.02-0.05)
[2018-01-14] MEDS ORDERED: Acetaminophen 325 MG Tablet PO PRN (23:08)
--- NOTE | 2018-01-14 23:08 | P.HPCC ---
History of Present Illness Primary Care Physician: UNKNOWN History of Present Illness: 62-year-old male patient presents because he was found down by family, on evaluation by EMS he had notable seizures, and they had tried Versed without success, he was vomiting dark material. They tried to intubate him for airway protection, but were unable to intubate him. However, the seizures had stopped at that point. He was obtunded in the ER and was intubated by ED attending. Shortly after intubation patient lost his pulses and CPR was initiated. He has regained spontaneous circulation after 2 cycles of CPR and injections of epinephrine. There was significant subcutaneous emphysema noticed and the patient was rushed to CT for the CT of the head chest and abdomen that showed large bilateral pneumothoraces, as well as free air in peritoneal cavity. Bilateral chest tubes were placed immediately in the emergency department. The free air in the peritoneum with was discussed with the surgeon credit collections manager Dr. Jimenze. It was felt the air in abdominal cavity is more likely leak from the chest cavity from bilateral tension pneumothoraces and observation without emergent surgical intervention was recommended. The patient was transferred to ICU where he suffered another cardiac arrest. He has regained again spontaneous circulation post 2 cycles of CPR, 2 A of sodium bicarb and 2 A of epinephrine. The patient's was updated about the critical condition at the bedside. Inpatient Certification: I certify that the inpatient services were ordered in accordance with Medicare regulations governing the order. This includes certification that hospital inpatient services are reasonable and necessary and in the case of services not specified as inpatient-only under 42 CFR 419.22(n), that they are appropriately provided as inpatient services in accordance to with the 2-midnight benchmark under 43 CFR 412.3(e) Review of Systems unobtainable due to endotracheal tube PMFSH - History History Provided By: Patient - Medical History Medical History: Medical History (Last Reviewed 01/14/18 @ 23:16 by Nannette Rodriges MD) Anxiety CVA (cerebral vascular accident) Diabetes ETOH abuse Hypertension No significant past surgical history - Family History Family History: Family History (Last Reviewed 01/14/18 @ 23:16 by Nannette Rodriges MD) Mother Kidney carcinoma Father CAD (coronary artery disease) - Tobacco History Second Hand Smoke Exposure: Yes Smoking Status: Unknown if ever smoked Tobacco Type: Cigarettes - Alcohol History How Often Do You Have a Drink Containing Alcohol: Unable to Obtain - Substance Use History Substance History: Unable to Obtain - Travel History Recent Travel in the [place] Within the Last 8 Weeks: No Recent Travel Out of the Country Within the Last 8 Weeks: No - Immunization History Tetanus Immunization: Unable to Assess Medications and Allergies Active Medications: Active Medications Propofol (Diprivan 1000 Mg/100 Ml Inj) 1,000 mg in 100 mls @ 2.994 mls/hr IV.CONT TITRATE PRN; Protocol PRN Reason: Per Protocol Sodium Chloride (Ns Flush) 2 ml IV.FLUSH PRN PRN PRN Reason: FLUSH AFTER USING IV ACCESS Allergies Allergy/AdvReac Type Severity Reaction Status Date / Time erythromycin base Allergy Severe Hives Verified 01/14/18 03:00 penicillin G Allergy Severe Hives Verified 01/14/18 03:00 Results - Labs CBC & Chem 7: 01/15/18 03:30 01/15/18 03:30 Labs: Short CBC 01/14/18 Range/Units 21:36 WBC 20.3 H D (4.0-11.0) th/mm3 Hgb 14.3 (13.0-17.0) gm/dL Hct 42.5 (39.0-51.0) % Plt Count 135 L (150-450) th/mm3 - Imaging Impressions Chest X-Ray 01/14/18 21:58 CONCLUSION: 1. ET tube in good position. 2. Subcutaneous emphysema clavicular and chest wall region. 3. Probable pneumomediastinum. Exam Vital signs: Vital Signs 01/14/18 21:29 Pulse Rate 140 H Respiratory Rate 18 Blood Pressure 165/84 H Pulse Oximetry 74 L Intake & Output 01/14/18 01/14/18 01/15/18 06:59 18:59 06:59 Weight 99.79 kg - Constitutional severe distress, obese, diaphoretic - Routine HEENT Exam Head: Present: normocephalic, atraumatic Eye: Present: EOMI, PERRL ENT: Present: mucous membranes moist - Routine Neck Exam Present: supple, full ROM. Absent: JVD, carotid bruit - Routine Respiratory Exam Present: accessory muscle use, patient mechanically ventilated, rhonchi, crackles. Absent: stridor, wheezes - Routine Cardiovascular Exam Present: RRR, S1, S2 - Routine Abdominal Exam Present: soft, normoactive bowel sounds, distended - Routine Extremities Exam Absent: cyanosis, clubbing, edema - Routine Skin Exam Present: intact. Absent: cyanosis, erythema - Routine Neurological Exam Present: altered mental status Septic Shock Reassessment Septic shock perfusion: reassessment completed Caprini VTE Risk Assessment Caprini VTE Risk Assessment: Moderate/High Risk (score >= 2) Caprini Risk Assessment Model: Point Value = 1 Point Value = 2 Point Value = 3 Point Value = 5 Age 41-60 Minor surgery BMI > 25 kg/m2 Swollen legs Varicose veins or History of unexplained or recurrent spontaneous Oral contraceptives or hormone replacement Sepsis (< 1 month) Serious lung disease, including pneumonia (< 1 month) Abnormal pulmonary function Acute myocardial infarction Congestive heart failure (< 1 month) History of inflammatory bowel disease Medical patient at bed rest Age 61-74 Arthroscopic surgery Major open surgery (> 45 min) Laparoscopic surgery (> 45 min) Malignancy Confined to bed (> 72 hours) Immobilizing plaster cast Central venous access Age >= 75 History of VTE Family history of VTE Factor V Leiden Prothrombin [id number] Lupus anticoagulant Anticardiolipin antibodies Elevated serum homocysteine Heparin-induced thrombocytopenia Other congenital or acquired thrombophilia Stroke (< 1 month) Elective arthroplasty Hip, pelvis, or leg fracture Acute spinal cord injury (< 1 month) Prophylaxis Regimen: Total Risk Factor Score Risk Level Prophylaxis Regimen 0-1 Low Early ambulation 2 Moderate Order ONE of the following: *Sequential Compression Device (SCD) *Heparin 5000 units SQ BID 3-4 Higher Order ONE of the following medications: *Heparin 5000 units SQ TID *Enoxaparin/Lovenox 40 mg SQ daily (WT < 150 kg, CrCl > 30 mL/min) *Enoxaparin/Lovenox 30 mg SQ daily (WT < 150 kg, CrCl > 10-29 mL/min) *Enoxaparin/Lovenox 30 mg SQ BID (WT < 150 kg, CrCl > 30 mL/min) AND/OR *Sequential Compression Device (SCD) 5 or more Highest Order ONE of the following medications: *Heparin 5000 units SQ TID (Preferred with Epidurals) *Enoxaparin/Lovenox 40 mg SQ daily (WT < 150 kg, CrCl > 30 mL/min) *Enoxaparin/Lovenox 30 mg SQ daily (WT < 150 kg, CrCl > 10-29 mL/min) *Enoxaparin/Lovenox 30 mg SQ BID (WT < 150 kg, CrCl > 30 mL/min) AND *Sequential Compression Device (SCD) Assessment and Plan - Assessment and Plan Plan: Respiratory failure -Intubated for airway protection -No weaning until neurologically and hemodynamically improved -Vent bundle -DuoNeb scheduled and as needed -Flolan -Solu-Medrol every 6 hours Pneumothorax -Bilateral tension pneumothoraces -Bilateral chest tubes to low wall suction -CXR daily Acute kidney injury -Severe dehydration -Aggressive IV fluid resuscitation -Strict I's and O's -Monitor creatinine and electrolyte levels Pneumoperitoneum -Likely from CPR -Discussed with surgeon credit collections manager -No intervention indicated -Supportive care Seizure -Likely due to alcohol withdrawal -Versed drip -CIWA protocol -EEG a.m. Severe sepsis -Vancomycin and cefepime -Follow-up blood cultures -Infectious disease consultation DVT GI prophylaxis -Teds SCDs -Subcu heparin -Pepcid 105 minutes of critical care
[2018-01-14] MEDS ORDERED: Vancomycin Consult Pharmacy OTHER PRN (23:17)
--- NOTE | 2018-01-14 23:21 | CT ---
EXAM DATE: 01/14/2018 11:12 PM EST AGE/SEX: 62 years / Male INDICATIONS: Found unresponsive. CLINICAL DATA: This is the patient's initial encounter. Patient reports that signs and symptoms have been present for 1 day and indicates a pain score of Nonresponsive. MEDICAL/SURGICAL HISTORY: Cardiovascular disease. Diabetes mellitus type II. Hypertension. Alcoh ol abuse None. RADIATION DOSE: 66.35 CTDI (mGy) COMPARISON: [facility] [place]/O [place], 01/14/2018. . TECHNIQUE: CT of the head without contrast. Using automated exposure control and adjustment of the mA and/or kV according to patient size, radiation dose was kept as low as reasonably achievable to ob tain optimal diagnostic quality images. DICOM format image data is available electronically for revi ew and comparison. FINDINGS: Cerebrum: The ventricles are normal for age with mild to moderate atrophic change. There is a stable focal area of encephalomalacia involving the right parietal lobe. No evidence of midline shift, mass lesion, hemorrhage or acute infarction. No extraaxial fluid collections are seen. Posterior Fossa: The cerebellum and brainstem are intact. The 4th ventricle is midline. The cerebe llopontine angle is unremarkable. Extracranial: The visualized portion of the orbits is intact. Skull: The calvaria is intact. No evidence of skull fracture. CONCLUSION: 1. No acute hemorrhage or mass effect. 2. Stable area of encephalomalacia in the right lateral lobe. . Electronically signed by: Luis Carlos Silva MD 01/14/2018 11:20 PM EST
--- NOTE | 2018-01-14 23:24 | ED ---
HPI General Chief complaint: Syncope Stated complaint: unresponsive/evac Time Seen by Provider: 01/14/18 21:58 Source: EMS Mode of arrival: EMS Limitations: altered mental status History of Present Illness HPI narrative: 62-year-old male patient presents to the ER today brought in by EMS because he was found down by family, on evaluation by EMS he had notable seizures, and they had tried Versed without success, he was vomiting dark material. They tried to intubate him for airway protection, but were unable to intubate him. However, the seizures had stopped at that point. He is obtunded in the ER. Related Data Previous Rx's Medication Instructions Recorded atorvastatin 20 mg PO DAILY #30 tab 11/04/17 gabapentin 300 mg PO BID #60 tab 11/04/17 glimepiride 2 mg PO BID #60 tab 11/04/17 levothyroxine 88 mcg PO DAILY #30 tab 11/04/17 pantoprazole [Protonix] 40 mg PO DAILY #30 tab 11/04/17 quetiapine [Seroquel] 50 mg PO HS #60 tab 11/04/17 sertraline 50 mg PO DAILY #30 tab 11/04/17 valsartan 80 mg PO DAILY #30 tab 11/04/17 Allergies Allergy/AdvReac Type Severity Reaction Status Date / Time erythromycin base Allergy Severe Hives Verified 01/14/18 03:00 penicillin G Allergy Severe Hives Verified 01/14/18 03:00 Review of Systems ROS Unobtainable ROS Unobtainable: unobtainable due to endotracheal tube PMFSH Medical History Medical History Anxiety (Acute) CVA (cerebral vascular accident) (Acute) Diabetes (Acute) ETOH abuse (Acute) Hypertension (Acute) No significant past surgical history (Acute) Family History Family History Mother Kidney carcinoma Father CAD (coronary artery disease) Social History Social History Substance History: Unable to Obtain Second Hand Smoke Exposure: Yes Smoking Status: Unknown if ever smoked Tobacco Type: Cigarettes How Often Do You Have a Drink Containing Alcohol: Unable to Obtain Recent Travel in [facility] within the Last 8 Weeks: No Recent Out of Country Travel within the Last 8 Weeks: No Immunization History Tetanus Immunization: Unable to Assess Exam Narrative Exam Narrative: GENERAL: Well-developed elderly male patient currently in severe distress, in respiratory distress, obtunded. [id number] in progress. SKIN: Focused skin assessment cool and diaphoretic. HEAD: Atraumatic. Normocephalic. EYES: Pupils dilated, round, unresponsive to light bilaterally. No scleral icterus. No injection or drainage. ENT: No nasal bleeding or discharge. Mucous membranes pink and moist. NECK: Trachea midline. CARDIOVASCULAR: Fast and regular. RESPIRATORY: Decreased breath sounds bilaterally. Notable accessory muscle use. GASTROINTESTINAL: Abdomen moderately distended. Hepatic and splenic margins not palpable. MUSCULOSKELETAL: No obvious deformities. No clubbing. Cyanosis. No edema. NEUROLOGICAL: Lethargic, unable to assess. PSYCHIATRIC: Unable to assess. Procedures Intubation Time Out Performed: No Sedative: etomidate Mg Given: 20 Paralytic: succinylcholine Mg Given: 100 Laryngoscope: fiber optic video scope ET Tube Size: 8 ET Tube Uncuffed: Yes Tube Secured Depth (cm): 24 Tube Secured Location: teeth Tube Placement Confirmation: visualized tube passing through cords, equal breath sounds bilaterally, no breath sounds over epigastrium and confirmation by capnometry Patient Tolerated Procedure: well Additional Comments: However, after initial confirmation of airway, patient started to become more combative, overbreathing the tube, pushing up on the tube , and reevaluation of the tube after chest x-ray shows that the tube had gone up to 22 at the lips, and the tube was pulled and a secondary intubation had to be done due to dislodgment of the tube. Secondary intubation. CODE BLUE. INTUBATION: The patient was put in optimal position for the procedure. Rapid sequence intubation was initiated by me using 20 milligrams of etomidate IV and 100 milligrams of succinylcholine IV. The patient was intubated with a 8.0 cuffed endotracheal tube. Tube placement was confirmed by visualization of the tube and balloon passing through the cords. Initial capnometry did show that the CO2 indicator was yellow, however, packing became more difficult and the capnometry indicator was not turning yellow anymore, and at this point, I have reevaluate the tube using the scope and it shows that the ET tube appears to be in place. However, patient's heart rate started to go down, and at this point, due to worry of possible displacement of the tube again, back valve mass was then again applied. Case was discussed with Dr. Bonner who was able to reintubate the patient. At this point, CODE BLUE was initiated, CPR initiated, and 2 rounds of epi have been given. She was given 1 dose of bicarb as well. Needle decompression. At this point, it was noted that the patient has decreased breath sounds and the right chest wall appears with crepitus. ChloraPrep was used to clean the right anterior chest wall at the second intercostal line, mid clavicle, and a 14 -gauge needle was placed with a gush of air. Patient was then more easy to bag. Course Initial Documented Vital Signs Pulse Rate 140 H 01/14/18 21:29 Respiratory Rate 20 01/14/18 21:29 Blood Pressure 165/84 H 01/14/18 21:29 Pulse Oximetry 74 L 01/14/18 21:29 Last Documented Vital Signs Pulse Rate 140 H 01/14/18 21:29 Respiratory Rate 18 01/14/18 21:29 Blood Pressure 165/84 H 01/14/18 21:29 Pulse Oximetry 74 L 01/14/18 21:29 Medical Decision Making MDM Narrative Medical decision making narrative: Case is discussed with Dr. Maxwell for admission at this point. He takes over the case. He had also asked for a CT of the chest to be done for further evaluation. The CAT scan is showing bilateral pneumothorax. Chest tubes were placed by Dr. Maxwell at this point and care is turned over to him. Aggregate critical care time was 60 minutes. Time to perform other separately billable procedures was not included in the critical care time. My time did not include minutes spent treating any other patients simultaneously or on activities that did not directly contribute to the patient's treatment. The services I provided to this patient were to treat and/or prevent clinically significant deterioration that could result in: Bilateral pneumothorax, respiratory arrest, I provided critical care services requiring my management, as noted below: Chart data review, documentation time, medication orders and management, vital sign assessments/reviewing monitor data, ordering and reviewing lab tests, ordering and interpreting/reviewing x-rays and diagnostic studies, care of the patient and discussion of the patient with the admitting physicians. Medical Screen Exam Complete: Yes Emergency Medical Condition: Yes Lab Data Lab results reviewed: Yes I reviewed the patient's lab results. Result diagrams: 01/14/18 21:36 01/14/18 21:36 Lab Results 01/14/18 01/14/18 01/14/18 Range/Units 21:36 21:36 21:36 WBC 20.3 H D (4.0-11.0) th/mm3 RBC 4.60 (4.50-5.90) mil/mm3 Hgb 14.3 (13.0-17.0) gm/dL Hct 42.5 (39.0-51.0) % MCV 92.4 (80.0-100.0) fL MCH 31.0 (27.0-34.0) pg MCHC 33.6 (32.0-36.0) % RDW 14.5 (11.6-17.2) % Plt Count 135 L (150-450) th/mm3 MPV 9.0 (7.0-11.0) fL Neut % (Auto) 91.0 H (16.0-70.0) % Lymph % (Auto) 5.4 L (9.0-44.0) % Carver % (Auto) 3.4 (0.0-8.0) % Eos % (Auto) 0.0 (0.0-4.0) % Baso % (Auto) 0.2 (0.0-2.0) % Neut # (Auto) 18.4 H (1.8-7.7) th/mm3 Lymph # (Auto) 1.1 (1.0-4.8) th/mm3 Carver # (Auto) 0.7 (0.0-0.9) th/mm3 Eos # (Auto) 0.0 (0.0-0.4) th/mm3 Baso # (Auto) 0.0 (0.0-0.2) th/mm3 WBC Differential . Differential Comment Auto diff final Sodium 136 (136-145) meq/L Potassium 4.9 D (3.5-5.1) meq/L Chloride 86 L D (98-107) meq/L Carbon Dioxide 14.9 L (21.0-32.0) meq/L Anion Gap 35 H (5-15) meq/L BUN 17 (7-18) mg/dL Creatinine 2.27 H (0.60-1.30) mg/dL Estimated GFR 29 L (>89) mL/min Random Glucose 124 H (74-106) mg/dL Lactic Acid 14.5 H* (0.4-2.0) mmol/L Calcium 8.5 D (8.5-10.1) mg/dL Magnesium 4.3 H (1.5-2.5) mg/dL Total Bilirubin 2.9 H (0.2-1.0) mg/dL AST 617 H (15-37) U/L ALT 190 H (12-78) U/L Alkaline Phosphatase 181 H (45-117) U/L Troponin I 0.52 H (0.02-0.05) ng/mL Total Protein 8.2 D (6.4-8.2) g/dL Albumin 4.0 (3.4-5.0) g/dL Serum Alcohol Less than 3 (0-5) mg/dL Imaging Data Attestation: I personally reviewed and interpreted this imaging study as follows : Radiologist's impression: Chest X-Ray 01/14/18 21:58 CONCLUSION: 1. ET tube in good position. 2. Subcutaneous emphysema clavicular and chest wall region. 3. Probable pneumomediastinum. Head CT 01/14/18 21:58 CONCLUSION: 1. No acute hemorrhage or mass effect. 2. Stable area of encephalomalacia in the right lateral lobe. . Discharge Plan Discharge Disposition Patient Disposition: 30 Still Patient Discharge Condition Condition: Critical Discharge Details Anticipated Discharge Date: 01/14/18 Diagnosis: Bilateral pneumothoraces, Endotracheally intubated Physicians Team ED Provider: Nannette Rodriges Primary Care Provider: UNKNOWN, Attending Provider: Elpidio Maxwell Status ED Status: Admitted Patient
--- NOTE | 2018-01-14 23:38 | CT ---
EXAM DATE: 01/14/2018 11:19 PM EST AGE/SEX: 62 years / Male INDICATIONS: Evaluate for pneumothorax. Unresponsive patient with abnormal chest x-ray with subcutan eous emphysema. CLINICAL DATA: This is the patient's initial encounter. Patient reports that signs and symptoms have been present for 1 day and indicates a pain score of Nonresponsive. MEDICAL/SURGICAL HISTORY: Cerebrovascular disease. Diabetes mellitus type II. Diabetes mellitus t ype II. None. RADIATION DOSE: 15.95 CTDI (mGy) [place] [facility] [place]. . TECHNIQUE: Multiple contiguous axial images were obtained through the chest without contrast. Image s were obtained in suspended respiration using multiple row detector helical technique. Using automa mitchel exposure control and adjustment of the mA and/or kV according to patient size, radiation dose was kept as low as reasonably achievable to obtain optimal diagnostic quality images. DICOM format imag e data is available electronically for review and comparison. FINDINGS: This study is suboptimal and degraded by significant motion artifact. Lungs: There are bilateral pneumothoraces right greater than left. The right pneumothorax is moderat e in size and the left is smaller. These are located anteriorly. There is consolidation in both poste rior lung bases with air bronchograms. There is also consolidation in the posterior perihilar regions . Mediastinum: There is gas dissecting in the upper mediastinum bilaterally. This extends into the nec k. A endotracheal tube is present. There is a nasogastric tube as well. The heart size is within norm al limits. There is no visualized adenopathy. Pleurae: There is a small right pleural effusion Axillae: Unremarkable. Bony Structures: There is no definite visualized rib fracture. Visualization is suboptimal and the s tudy is degraded by the motion artifact. Subcutaneous emphysema is present greatest along the right a nterior chest wall. Miscellaneous: The examination was extended to include the upper abdomen, and both adrenal glands ar e normal in size and configuration. There is gas dissecting into the right side of the retroperitoneu m and anterior to the right kidney. There is moderate to severe hepatic steatosis. There are linear c ollections of gas along the anterior inner abdominal cavity which could represent free air. There is subcutaneous emphysema extending along the lower anterior chest wall as well. CONCLUSION: 1. Bilateral pneumothoraces right greater than left. 2. Apparent pneumomediastinum with gas also dissecting into the right side of the retroperitoneum an d anterior to the right kidney. 3. Linear collections of gas along the anterior inner abdominal wall which could represent collectio ns of dissected free air. Subcutaneous emphysema is also noted. 4. Consolidation in both posterior lung bases and posterior hilar regions. 5. Small right pleural effusion. 6. Suboptimal study secondary to extensive motion artifact. This limits the sensitivity. These findings were called to the emergency room physician immediately after the study was performed. Electronically signed by: Luis Carlos Silva MD 01/14/2018 11:37 PM EST
[2018-01-14] MEDS ORDERED: Succinylcholine Inj 200 MG/10 ML Vial ONE (23:48)
--- NOTE | 2018-01-14 23:58 | CT ---
EXAM DATE: 01/14/2018 11:52 PM EST AGE/SEX: 62 years / Male INDICATIONS: Found unresponsive. CLINICAL DATA: This is the patient's initial encounter. Patient reports that signs and symptoms have been present for 1 day and indicates a pain score of Nonresponsive. MEDICAL/SURGICAL HISTORY: Cerebrovascular disease. Diabetes mellitus type II. Hypertension. N one. RADIATION DOSE: 26.64 CTDI (mGy) COMPARISON: [facility] [place] 01/14/2018. . TECHNIQUE: Contiguous axial images were obtained using helical multirow detector technique. The vol umetric data was post-processed with multiplanar reconstruction in oblique axial, sagittal, and coron al planes. Using automated exposure control and adjustment of the mA and/or kV according to patient s ize, radiation dose was kept as low as reasonably achievable to obtain optimal diagnostic quality rommel ges. DICOM format image data is available electronically for review and comparison. FINDINGS: Vertebrae: Normal vertebral body height. Discs: Degenerative disc changes noted at C4-5, C5-6 and C6-7 levels with disc space narrowing and mi ld hypertrophic change. Alignment: Normal. No subluxation. The axial images demonstrate that the vertebral bodies and posterior elements are intact without evid ence of fracture. Subcutaneous emphysema noted. Right pneumothorax is visualized. There is consolidat ion with small right pleural effusion noted. The endotracheal tube and nasogastric tube partially vis ualized. CONCLUSION: 1. No acute fracture or malalignment. 2. Subcutaneous emphysema again noted as well as the known right pneumothorax. Electronically signed by: Luis Carlos Silva MD 01/14/2018 11:56 PM EST
[2018-01-15] MEDS ORDERED: Norepinephrine Inj 4 MG/4 ML Ampul ONE (00:07)
--- NOTE | 2018-01-15 00:08 | ED ---
Procedures Chest Tube Chest Tube 1: Chest Tube Location: Mid-Axillary Chest (left) Chest Tube Procedure: Yes betadine prep Tube Sutured to Skin: Yes (stat lock) Sterile Dressing Applied: Yes Incision made with: #11 blade Teixeira of Air Mcduffie: Yes Tube Drainage: none Post Procedure CXR?: Yes Progress: Re-expansion of left lung, appropriate positioning of pigtail catheter Patient Tolerated Procedure: Yes Post Procedure: sterile dressing applied
--- NOTE | 2018-01-15 00:26 | XR ---
EXAM DATE: 01/15/2018 12:08 AM EST AGE/SEX: 62 years / Male INDICATIONS: Bilateral chest tube placement, central line placement. CLINICAL DATA: This is the patient's initial encounter. Patient reports that signs and symptoms have been present for 1 day and indicates a pain score of 0/10. MEDICAL/SURGICAL HISTORY: Non-responsive. Non-responsive. COMPARISON: [facility] – [place] 1V SINGLE AP, 01/14/2018. . FINDINGS: A single AP portable semierect view of the chest was obtained and demonstrates interval placement of left-sided chest tube with the pigtail catheter projected over the upper lobe. There is been placemen t of a right-sided smallbore chest tube is well with the tip projected over the lung base. Extensive bilateral subcutaneous emphysema is again noted. Heart size is at the upper limits of normal. Gas is noted along portions of the left heart border. The endotracheal tube remains in place with the tip 2 cm above the alberto. Nasogastric tube is been placed and is seen coursing through the esophagus into the stomach. There is been interval placement of a right subclavian central venous line. Small areas of residual right pneumothorax disease. There is overlying artifact. The bony thorax appears intact. There is consolidation again noted in both perihilar regions and retrocardiac region. CONCLUSION: 1. Interval placement of bilateral small bore chest tubes. 2. Interval placement nasogastric tube and right subclavian central venous line. 3. There is consolidation again noted in both perihilar regions and retrocardiac region. 4. Small apparent residual right pneumothorax and pneumomediastinum again noted. Electronically signed by: Luis Carlos Silva MD 01/15/2018 12:24 AM EST
[2018-01-15] MEDS ORDERED: Vancomycin Inj 2,000 MG in Sodium Chlor 0.9% Inj 500 ML IV.SIG ONE (01:00)
[2018-01-15 01:14] LABS: ABG Base Excess -11.6 mmol/L (-2-2); ABG PCO2 39 mmHg (38-42); ABG PO2 267 mmHG (61-120)
[2018-01-15] MEDS: fentaNYL 10 mcg/mL Premix Drip 2,500 MCG/250 ML BAG IV.SIG PRN (01:58)
[2018-01-15] MEDS: Propofol 1000 mg/100 ml Inj 1,000 MG/100 ML BOTTLE IV.CONT PRN ×2 (01:59→02:55)
[2018-01-15] MEDS: Midazolam 50 MG/50 ML Inj 50 MG/50 ML BAG IV.CONT PRN ×2 (01:59→22:05)
[2018-01-15] MEDS ORDERED: Vasopressin Inj 40 UNIT in Dextrose 5% in Water Inj 98 ML IV.CONT SCH ×2 (02:00)
[2018-01-15] MEDS: Sodium Bicarbonate 8.4% Inj 150 MEQ in Water for Inj, Sterile 850 ML IV.CONT SCH ×4 (02:00→21:51)
[2018-01-15 02:01] LABS: ABG Base Excess -7.7 mmol/L (-2-2); ABG PCO2 54 mmHg (38-42); ABG PO2 63 mmHG (61-120)
[2018-01-15] MEDS: Sod Chloride 0.9% Inj 1,000 ML IV.SIG SCH ×3 (02:01→06:56)
[2018-01-15] MEDS: Albumin Human 5% Inj 500 ML IV.SIG SCH ×4 (02:01→18:05)
[2018-01-15] MEDS ORDERED: MethylPREDNISolone Sod Succinate Inj 125 MG/2 ML Vial IV.PUSH ONE (02:03)
[2018-01-15] MEDS ORDERED: MethylPREDNISolone Sod Succinate Inj 125 MG/2 ML Vial ONE (02:03)
[2018-01-15] MEDS ORDERED: Sodium Chlor 0.9% Inj 0 ML, Epoprostenol (30,000/mL) Neb 100 ML NEB SCH ×2 (02:30)
[2018-01-15] MEDS ORDERED: Desmopressin Inj 20 MCG in Sodium Chlor 0.9% Inj 50 ML IV.SIG ONE (02:30)
[2018-01-15 02:38] LABS: INR 1.3 Ratio; Prothrombin Time 12.8 sec (9.8-11.6)
--- NOTE | 2018-01-15 02:47 | XR ---
EXAM DATE: 01/15/2018 2:36 AM EST AGE/SEX: 62 years / Male INDICATIONS: Short of breath. Follow-up bilateral pneumothoraces status post chest tube placements. CLINICAL DATA: This is the patient's subsequent encounter. Patient reports that signs and symptoms h ave been present for 1 day and indicates a pain score of 0/10. MEDICAL/SURGICAL HISTORY: Non-responsive. Non-responsive. [place] [facility] [place]. . FINDINGS: A single AP portable semierect view of the chest was obtained. There is mild motion artifact. The end otracheal tube remains in place with the tip approximately 2 cm above the alberto. The nasogastric tub e is again seen coursing through the esophagus and into the stomach. The right subclavian central jamia ous line remains in place. The small bore left-sided chest tube is again noted with the tip projected over the upper lobe. The previously noted right sided chest tube projected over the lung base is not well visualized. The heart size remains at the upper limits of normal. Subcutaneous emphysema is aga in noted. There is a small amount of air and gas surrounding portions of the heart. There is lucency along the left medial upper lobe and right lung apex concerning for possible residual pneumothorax. A reas of consolidative opacity remaining in the perihilar regions and both lung bases. The bony struct ures appear grossly intact. CONCLUSION: 1. Optimal examination mild motion artifact. 2. The right sided chest tube is not well visualized on the current study there is a left-sided ches t tube appears unchanged. 3. Bilateral subcutaneous emphysema right greater than left with abnormal lucency projected over por tions of both upper lobes concern for residual pneumothoraces. 4. Dense consolidation again noted in both lungs. Electronically signed by: Luis Carlos Silva MD 01/15/2018 2:45 AM EST
[2018-01-15] MEDS ORDERED: EPOPROSTENOL NEB SCH (03:00)
[2018-01-15] MEDS ORDERED: SODIUM CHLOR NEB SCH (03:00)
[2018-01-15] MEDS: Epoprostenol (30,000/mL) Neb 100 ML in Sodium Chlor 0.9% Inj 0 ML NEB SCH ×2 (03:10→12:19)
[2018-01-15 03:55] LABS: Baso % (Auto) 0.4 % (0.0-2.0); Eos % (Auto) 0.1 % (0.0-4.0); Hematocrit 37.1 % (39.0-51.0); Hemoglobin 12.3 gm/dL (13.0-17.0); Lymph # (Auto) 0.4 th/mm3 (1.0-4.8); Lymph % (Auto) 12.8 % (9.0-44.0); Mean Corpuscular HGB Conc 33.2 % (32.0-36.0); Mean Corpuscular Hemoglobin 30.5 pg (27.0-34.0); Mean Corpuscular Volume 91.8 fL (80.0-100.0); Mean Platelet Volume 8.7 fL (7.0-11.0); Mono % (Auto) 1.2 % (0.0-8.0); Neut # (Auto) 2.8 th/mm3 (1.8-7.7); Neut % (Auto) 85.5 % (16.0-70.0); Platelet Count 96 th/mm3 (150-450); Red Blood Count 4.04 mil/mm3 (4.50-5.90); Red Cell Distribution Width 14.6 % (11.6-17.2); White Blood Count 3.3 th/mm3 (4.0-11.0)
[2018-01-15] MEDS ORDERED: Chlorhexidine Gluconate 2% 1 Pack (2 Cloths) TOPICAL PRN (04:00)
[2018-01-15 04:01] LABS: Activated Partial Thrombo Time 27.3 sec (23.4-31.7); INR 1.3 Ratio; Prothrombin Time 13.1 sec (9.8-11.6)
[2018-01-15 04:39] LABS: Albumin 3.1 g/dL (3.4-5.0); Calcium 6.2 mg/dL (8.5-10.1); Carbon Dioxide 19.6 meq/L (21.0-32.0); Magnesium 3.5 mg/dL (1.5-2.5); Phosphorus 9.4 mg/dL (2.5-4.9); Potassium 3.3 meq/L (3.5-5.1); Total Protein 5.7 g/dL (6.4-8.2)
[2018-01-15 04:42] LABS: Troponin I 1.89 ng/mL (0.02-0.05)
[2018-01-15 05:07] LABS: Blast Cells 1 % (0-0); Lymphocytes 8 % (9-44); Metamyelocytes 2 % (0-1); Monocytes 2 % (0-8); Platelet Morphology Normal (Normal)
[2018-01-15 05:08] LABS: Tear Drop Cells 1+
[2018-01-15] MEDS: Oral Hygiene Kit OROPHARYNG SCH ×4 (05:28→18:06)
[2018-01-15] MEDS: Chlorhexidine Gluconate 2% 1 Pack (2 Cloths) TOPICAL SCH (05:28)
[2018-01-15] MEDS: Pantoprazole Inj 40 MG Vial IV.PUSH SCH ×2 (06:00→14:25)
[2018-01-15 06:14] LABS: ABG Base Excess -4.3 mmol/L (-2-2); ABG PCO2 38 mmHg (38-42); ABG PO2 173 mmHG (61-120)
[2018-01-15] MEDS: Heparin - SQ 10,000 UNITS/ML Vial SQ SCH ×2 (06:29→10:04)
[2018-01-15] MEDS: Sod Chloride 0.9% Inj 1,000 ML IV.CONT SCH ×2 (06:39→21:50)
--- NOTE | 2018-01-15 07:38 | P.PCN ---
Date of procedure: 01/14/18 Pre-op diagnosis: Pneumothorax Procedure: Procedure: Right CHEST TUBE Indication: Large pneumothorax -right Performed by: Elpidio Dewitt time out procedure was performed Initials Consent obtained JV Correct patient JV Correct procedure JV Correct site JV Correct positioning JV Correct supplies JV Patient was positioned, prepped and draped in usual sterile fashion. ccs 1% Lidocaine was used to anesthetize the area. An incision was made and blunt dissection was performed and curved forceps were used to enter the pleural space. A 10 fr chest tube was placed to 15cm. The tube was secured and taped. A chest xray was ordered to evaluate for placement of the chest tube. A pigtail catheter was placed using the seldinger technique. Initial Fluid Removed: 50 Patient tolerated the procedure well and there were no complications.
--- NOTE | 2018-01-15 07:39 | P.PCN ---
Date of procedure: 01/14/18 Pre-op diagnosis: Shock Procedure: Arterial line placement A time-out was completed verifying correct patient, procedure, site, positioning , and special equipment if applicable. Allens test was performed to ensure adequate perfusion. The patients right elbow was prepped and draped in sterile fashion. 1% Lidocaine was used to anesthetize the area. A 18G Arrow arterial line was introduced into the brachial artery. The catheter was threaded over the guide wire and the needle was removed with appropriate pulsatile blood return. The catheter was then sutured in place to the skin and a sterile dressing applied. Perfusion to the extremity distal to the point of catheter insertion was checked and found to be adequate. Estimated Blood Loss: 1ml The patient tolerated the procedure well and there were no complications.
--- NOTE | 2018-01-15 07:39 | P.PCN ---
Date of procedure: 01/14/18 Pre-op diagnosis: Shock Procedure: Central line placement A time-out was completed verifying correct patient, procedure, site, positioning , and special equipment if applicable. The patient was placed in a dependent position appropriate for central line placement based on the vein to be cannulated. The patients right shoulder was prepped and draped in sterile fashion. 1% Lidocaine was used to anesthetize the surrounding skin area. A triple lumen 9-Armenian Cordis catheter was introduced into the the right subclavian vein using the Seldinger technique. The catheter was threaded smoothly over the guide wire and appropriate blood return was obtained. Each lumen of the catheter was evacuated of air and flushed with sterile saline. The catheter was then sutured in place to the skin and a sterile dressing applied. Perfusion to the extremity distal to the point of catheter insertion was checked and found to be adequate. Estimated Blood Loss: 1ml The patient tolerated the procedure well and there were no complications.
--- NOTE | 2018-01-15 07:50 | P.PNCC ---
Subjective Subjective Remarks/Hospital Course: 62-year-old male patient presents because he was found down by family, on evaluation by EMS he had notable seizures, and they had tried Versed without success, he was vomiting dark material. They tried to intubate him for airway protection, but were unable to intubate him. However, the seizures had stopped at that point. He was obtunded in the ER and was intubated by ED attending. Shortly after intubation patient lost his pulses and CPR was initiated. He has regained spontaneous circulation after 2 cycles of CPR and injections of epinephrine. There was significant subcutaneous emphysema noticed and the patient was rushed to CT for the CT of the head chest and abdomen that showed large bilateral pneumothoraces, as well as free air in peritoneal cavity. Bilateral chest tubes were placed immediately in the emergency department. The free air in the peritoneum with was discussed with the surgeon nonfarm animal caretaker Dr. Jimenez. It was felt the air in abdominal cavity is more likely leak from the chest cavity from bilateral tension pneumothoraces and observation without emergent surgical intervention was recommended. The patient was transferred to ICU where he suffered another cardiac arrest. He has regained again spontaneous circulation post 2 cycles of CPR, 2 A of sodium bicarb and 2 A of epinephrine. The patient's was updated about the critical condition at the bedside. 01/15: Patient remains critically ill on max dose of norepinephrine, vasopressin , and epinephrine. His oxygenation overnight has somehow improved with Flolan infusion, however still requiring aggressive APRV mode of ventilation. Objective Vital Signs / I&O: Vital Signs 01/14/18 21:29 01/14/18 21:30 01/14/18 21:40 Temperature 103.0 F H Pulse Rate 140 H 140 H 136 H Respiratory Rate 18 18 16 Blood Pressure 165/84 H 165/84 H 131/79 Pulse Oximetry 74 L 74 L 89 L 01/14/18 21:45 01/14/18 21:50 01/14/18 22:20 Temperature Pulse Rate 133 H 108 H 116 H Respiratory Rate 16 16 16 Blood Pressure 141/67 H 80/40 L 140/67 Pulse Oximetry 91 L 100 97 01/14/18 22:42 01/14/18 22:45 01/14/18 23:00 Temperature Pulse Rate 42 L 146 H 114 H Respiratory Rate 16 16 16 Blood Pressure 180/110 H 90/49 L Pulse Oximetry 95 100 100 01/14/18 23:15 01/14/18 23:30 01/14/18 23:36 Temperature Pulse Rate 114 H 114 H Respiratory Rate 16 16 16 Blood Pressure 74/49 L 84/50 L Pulse Oximetry 100 98 96 01/14/18 23:40 01/14/18 23:50 01/15/18 00:15 Temperature Pulse Rate 114 H 117 H 115 H Respiratory Rate 16 16 16 Blood Pressure 81/51 L 104/57 L 125/59 L Pulse Oximetry 100 98 96 01/15/18 00:23 01/15/18 01:16 01/15/18 01:19 Temperature Pulse Rate 117 H 131 H Respiratory Rate 16 21 10 L Blood Pressure 118/56 L Pulse Oximetry 99 98 89 L 01/15/18 01:41 01/15/18 01:45 01/15/18 02:00 Temperature Pulse Rate 124 H 122 H 123 H Respiratory Rate 17 22 28 H Blood Pressure 118/85 117/61 141/73 H Pulse Oximetry 83 L 87 L 82 L 01/15/18 02:22 01/15/18 02:52 01/15/18 02:53 Temperature Pulse Rate 128 H 128 H Respiratory Rate 16 43 H 49 H Blood Pressure 78/54 L 160/63 H Pulse Oximetry 63 L 90 L 90 L 01/15/18 02:55 01/15/18 03:00 01/15/18 03:02 Temperature Pulse Rate 128 H 128 H 128 H Respiratory Rate 45 H 40 H 40 H Blood Pressure 177/76 H 141/75 H Pulse Oximetry 89 L 89 L 90 L 01/15/18 03:16 01/15/18 03:20 01/15/18 03:26 Temperature Pulse Rate 128 H 129 H 129 H Respiratory Rate 42 H 47 H 48 H Blood Pressure 132/93 H 134/98 H Pulse Oximetry 93 L 93 L 01/15/18 03:35 01/15/18 03:41 01/15/18 03:45 Temperature Pulse Rate 132 H 132 H 133 H Respiratory Rate 44 H 45 H 42 H Blood Pressure 130/87 129/64 122/69 Pulse Oximetry 92 L 93 L 96 01/15/18 03:46 01/15/18 03:51 01/15/18 03:56 Temperature Pulse Rate 130 H 132 H Respiratory Rate 41 H 44 H 42 H Blood Pressure 131/63 135/53 L Pulse Oximetry 92 L 92 L 94 L 01/15/18 04:00 01/15/18 04:11 01/15/18 04:15 Temperature 98.6 F Pulse Rate 130 H 129 H 128 H Respiratory Rate 42 H 43 H 41 H Blood Pressure 102/49 L 155/98 H 135/95 H Pulse Oximetry 95 93 L 93 L 01/15/18 04:26 01/15/18 04:31 01/15/18 04:36 Temperature Pulse Rate 126 H 126 H 127 H Respiratory Rate 44 H 49 H 48 H Blood Pressure 128/80 148/65 H 154/57 H Pulse Oximetry 96 97 98 01/15/18 04:41 01/15/18 04:44 01/15/18 04:50 Temperature 98.4 F Pulse Rate 126 H 126 H 122 H Respiratory Rate 44 H 42 H 38 H Blood Pressure 151/57 H 151/57 H 158/94 H Pulse Oximetry 94 L 94 L 96 01/15/18 04:55 01/15/18 05:00 01/15/18 05:01 Temperature Pulse Rate 121 H 122 H 120 H Respiratory Rate 40 H 45 H 42 H Blood Pressure 157/90 H 182/96 H Pulse Oximetry 98 99 97 01/15/18 06:00 Temperature Pulse Rate 107 H Respiratory Rate 10 L Blood Pressure Pulse Oximetry 99 Intake & Output 01/14/18 01/15/18 01/15/18 18:59 06:59 18:59 Intake Total 2835 / 2835 1040 / 1040 Output Total 1106 / 1106 Balance 1729 / 1729 1040 / 1040 Weight 113 kg Intake: IV 1655 / 1655 1040 / 1040 Diprivan 1000 mg/100 ml Inj 1, 100 / 100 000 mg In 100 ml @ 5 MCG/KG/MIN 2.994 mls/hr IV.CONT TITRATE PRN Rx#:[id number] Alburx 5% Inj 500 ML @ 250 mls/ 500 / 500 500 / 500 hr IV.SIG Q6H HENRY Rx#:[id number] DDAVP Inj 20 MCG In NS Inj 50 55 / 55 ML @ 100.5 mls/hr IV.SIG ONCE ONE Rx#:[id number] Levophed-Dextrose 4 mg/250 ml 0 / 0 Drip 4 mg In 250 ml @ 2 MCG/MIN 7.5 mls/hr IV.SIG TITRATE PRN Rx#:[id number] NS Inj 1,000 ML @ 3000 mls/hr 1000 / 1000 IV.SIG Q20M HENRY Rx#:[id number] Vancomycin Inj 2,000 MG In NS 540 / 540 Inj 500 ML @ 270 mls/hr IV.SIG ONCE ONE Rx#:[id number] Intake (Blood Product) Amt 1180 / 1180 Plasma Thawed 5 Day Cp2d Unit 247 / 247 [id number] Plasma Thawed 5 Day Cp2d Unit 365 / 365 [id number] Plasma Thawed 5 Day Cp2d Unit 263 / 263 [id number] Plasma Thawed 5 Day Cp2d Unit 305 / 305 [id number] Output: Urine Amount (Catheter) 150 / 150 Indwelling Temp Sensing 150 / 150 Catheter Gastric Drainage 800 / 800 Oral 800 / 800 Chest Tube Drainage 156 / 156 #1 Left Pleural 6 / 6 #2 Right Pleural 150 / 150 Other: Date of Last Bowel Movement 01/15/18 Weight On Admission 113 kg Result Diagrams: 01/15/18 03:30 01/15/18 03:30 Imaging: Impressions Cervical Spine CT 01/14/18 21:58 CONCLUSION: 1. No acute fracture or malalignment. 2. Subcutaneous emphysema again noted as well as the known right pneumothorax. Chest X-Ray 01/14/18 21:58 CONCLUSION: 1. ET tube in good position. 2. Subcutaneous emphysema clavicular and chest wall region. 3. Probable pneumomediastinum. Head CT 01/14/18 21:58 CONCLUSION: 1. No acute hemorrhage or mass effect. 2. Stable area of encephalomalacia in the right lateral lobe. . Chest CT 01/14/18 22:54 CONCLUSION: 1. Bilateral pneumothoraces right greater than left. 2. Apparent pneumomediastinum with gas also dissecting into the right side of the retroperitoneum and anterior to the right kidney. 3. Linear collections of gas along the anterior inner abdominal wall which could represent collections of dissected free air. Subcutaneous emphysema is also noted. 4. Consolidation in both posterior lung bases and posterior hilar regions. 5. Small right pleural effusion. 6. Suboptimal study secondary to extensive motion artifact. This limits the sensitivity. These findings were called to the emergency room physician immediately after the study was performed. Chest X-Ray 01/15/18 00:03 CONCLUSION: 1. Interval placement of bilateral small bore chest tubes. 2. Interval placement nasogastric tube and right subclavian central venous line. 3. There is consolidation again noted in both perihilar regions and retrocardiac region. 4. Small apparent residual right pneumothorax and pneumomediastinum again noted. Chest X-Ray 01/15/18 02:18 CONCLUSION: 1. Optimal examination mild motion artifact. 2. The right sided chest tube is not well visualized on the current study there is a left-sided chest tube appears unchanged. 3. Bilateral subcutaneous emphysema right greater than left with abnormal lucency projected over portions of both upper lobes concern for residual pneumothoraces. 4. Dense consolidation again noted in both lungs. Objective Remarks: - Constitutional severe distress, obese, diaphoretic - Routine HEENT Exam Head: Present: normocephalic, atraumatic Eye: Present: EOMI, PERRL ENT: Present: mucous membranes moist - Routine Neck Exam Present: supple, full ROM. Absent: JVD, carotid bruit - Routine Respiratory Exam Present: accessory muscle use, patient mechanically ventilated, rhonchi, crackles. Absent: stridor, wheezes - Routine Cardiovascular Exam Present: RRR, S1, S2 - Routine Abdominal Exam Present: soft, normoactive bowel sounds, distended - Routine Extremities Exam Absent: cyanosis, clubbing, edema - Routine Skin Exam Present: intact. Absent: cyanosis, erythema - Routine Neurological Exam Present: altered mental status Assessment and Plan - Assessment and Plan Plan: Respiratory failure -Intubated for airway protection -APRV, wean FiO2 as tolerated to keep sats above 92 -No SBP until neurologically and hemodynamically improved -Vent bundle -DuoNeb scheduled and as needed -Flolan -Solu-Medrol every 6 hours Pneumothorax -Bilateral tension pneumothoraces -Bilateral chest tubes to low wall suction -CXR daily Acute kidney injury -Severe dehydration -Aggressive IV fluid resuscitation -Strict I's and O's -Monitor creatinine and electrolyte levels Pneumoperitoneum -Likely from CPR -Discussed with surgeon nonfarm animal caretaker -No intervention indicated -Supportive care Seizure -Due to alcohol withdrawal -Versed drip -WA protocol -Thiamine folate multivitamin -EEG a.m. Elevated troponin -Monitor trend -Most likely due to severe hypoxemia and CPR -Repeat EKG -Cardiology consultation -2D echo Severe sepsis -Vancomycin and cefepime -Follow-up blood cultures -Infectious disease consultation DVT GI prophylaxis -Teds SCDs -Subcu heparin -Pepcid 35 minutes of critical care
[2018-01-15] MEDS ORDERED: Famotidine 20 MG Tablet PO SCH (09:00)
[2018-01-15] MEDS ORDERED: Famotidine PF Inj 20 MG/2 ML Vial IV.PUSH SCH ×2 (09:00)
[2018-01-15] MEDS: MethylPREDNISolone Sod Succinate Inj 40 MG/ML Vial IV.PUSH SCH ×3 (09:40→19:45)
[2018-01-15] MEDS: Senna/Docusate Sodium 8.6/50 MG Tablet PO SCH ×2 (09:41→21:51)
[2018-01-15] MEDS: Chlorhexidine 0.12% Oral Kit 15 ML UDC OROPHARYNG SCH ×2 (10:05→19:45)
[2018-01-15] MEDS ORDERED: Heparin Drip 25,000 UNIT/250 ML BAG IV.CONT PRN (11:12)
[2018-01-15] MEDS ORDERED: Heparin 10,000 UNITS/10 ML Vial (for IV use) IV.PUSH STA (11:12)
--- NOTE | 2018-01-15 12:13 | MB ---
cc: Adriano Gomez MD DATE: 01/15/2018 REASON FOR CONSULTATION: Abnormal troponin level. HISTORY OF PRESENT ILLNESS: History is obtained from the electronic medical records. The patient is currently intubated and sedated. He is a 62-year-old white male with a history of hypertension, diabetes, alcohol abuse, CVA, sleep apnea, who was brought to the hospital after he was found down by his family, having seizure activity. In the emergency department, he underwent a very difficult intubation. At some point, he apparently developed asystolic cardiac arrest twice necessitating CPR. His hospital course has also been complicated by renal insufficiency and the development of bilateral pneumothoraces necessitating chest tube placement. PAST MEDICAL HISTORY: 1. Hypertension. 2. Diabetes. 3. Alcohol abuse. 4. Gastroesophageal reflux disease. 5. Hypothyroidism. 6. Cerebrovascular accident in 2009. 7. Antiphospholipid antibody syndrome. 8. Sleep apnea. PAST SURGICAL HISTORY: 1. Tonsillectomy and adenoidectomy. 2. Hernia repair. CARDIAC MEDICATIONS AT HOME: 1. Valsartan 80 mg daily. 2. Atorvastatin 20 mg daily. CURRENT CARDIAC MEDICATIONS: Levophed and vasopressin drips. ALLERGIES: ERYTHROMYCIN, PENICILLIN. FAMILY HISTORY: Currently, unobtainable. SOCIAL HISTORY: The patient reportedly is a former smoker. It is unclear if he continues to abuse alcohol. REVIEW OF SYSTEMS: Currently, unobtainable. PHYSICAL EXAMINATION: VITAL SIGNS: His blood pressure 132/87 with a pulse of 97, respirations 10. GENERAL: He is a well-developed, well-nourished white male, currently intubated and sedated. HEENT: Jugular venous pressure is hard to assess. Carotid pulses are 2+ bilaterally and without bruits. CHEST: Reveals clear lungs valenzuela anteriorly. CARDIAC: He has a regular rhythm and rate without definite S3, S4, or murmur. ABDOMEN: He has a somewhat firm abdomen without definite hepatosplenomegaly. Scant bowel sounds are present. EXTREMITIES: Reveals no definite clubbing, cyanosis or edema. DIAGNOSTIC DATA: Chest x-ray shows bilateral chest tubes, perihilar consolidation. LABORATORY DATA: EKG from 01/14/2018 at 2236 shows sinus bradycardia, inferior ST elevation suggestive of acute injury, extensive artifact in the precordial leads. EKG from 01/15/2018 at 9:41 a.m. shows predominantly ectopic atrial rhythm, diffuse nonspecific ST and T-wave abnormalities. Laboratory data includes WBC 3.3, hemoglobin 12.3, platelets 96. Potassium 3.3, BUN 26, creatinine 2.55, AST 2663, ALT 535, troponin 1.89. IMPRESSION: Possible acute myocardial infarction in a 62-year-old white male with a history of hypertension, alcohol abuse, diabetes, CVA, sleep apnea, antiphospholipid antibody syndrome, now admitted apparently after being found down by his family. In addition, the patient reportedly is status post 2 asystolic cardiac arrests necessitating CPR. His initial EKG last night actually suggests acute inferior ST elevation myocardial infarction, although the ST segment elevation has since resolved by EKG today. Troponin is mildly elevated, although in the setting of renal insufficiency. At this point, he is not a good candidate for invasive cardiac evaluation with cardiac catheterization given his renal insufficiency and high risk of dye-induced renal failure. Echocardiogram is pending. RECOMMENDATIONS: 1. Await his 2-D echo. 2. Continue supportive care. 3. Daily aspirin and consider heparin drip. 4. Continue to wean pressor support as tolerated. 5. Hold on statin therapy for now given his hepatic insufficiency. 6. If his renal indices substantially improve, recommend cardiac catheterization. MD MELI Brown/rafal/esthela , 11:11 AM , 11:21 AM DEVANTE
[2018-01-15] MEDS: Insulin NovoLIN Regular Correctional Sugar Inj SQ SCH ×2 (12:22→18:05)
--- NOTE | 2018-01-15 12:44 | P.CONID ---
History of Present Illness Service: ID Consult date: 01/15/18 Requesting Physician: Elpidio Maxwell Reason for Consult: sepsis Primary Care Provider: UNKNOWN History of Present Illness: 62 yo male - unable to give history History obtained from the chart and other providers He presetned on 01/14 with vomiting, high alcohol level and was diagnosed with ETOH intoxication and was d/s in stable condition home Later he was found down by family and brought back to ER He was intubated in ER His CXR showed Subcutaneous emphysema clavicular and chest wall region, probable pneumomediastinum. Cervical Spine CT showed no acute fracture or malalignment and subcutaneous emphysema again noted as well as the known right pneumothorax. On presentation his lactic acid was 14.5 WBC 20K later WBC went down to 3.3K He is in multi organn failure including ARF, acute VDRF on biphasic ventilation , FiO2 70% On mutiple pressors, weaned down to Levaphed 8 mcgs and vasopressin .CT chest showed: Bilateral pneumothoraces right greater than left, Apparent pneumomediastinum with gas also dissecting into the right side of the retroperitoneum and anterior to the right kidney He has Linear collections of gas along the anterior inner abdominal wall which could represent collections of dissected free air. Subcutaneous emphysema is also noted. Consolidation in both posterior lung bases and posterior hilar regions. Small right pleural effusion. On CT A/P 6 am on 01/14 the visualized lower lungs are clear Review of Systems unobtainable due to endotracheal tube, unobtainable due to mental status PMFSH - History History Provided By: Patient - Medical History Medical History: Medical History (Last Reviewed 01/15/18 @ 12:21 by Sakina Murray MD) Anxiety CVA (cerebral vascular accident) Diabetes ETOH abuse Hypertension No significant past surgical history - Family History Family History: Family History (Last Reviewed 01/15/18 @ 12:21 by Sakina Murray MD) Mother Kidney carcinoma Father CAD (coronary artery disease) - Social History I have reviewed the patient's Social History: Yes - Tobacco History Second Hand Smoke Exposure: Yes Smoking Status: Unknown if ever smoked Tobacco Type: Cigarettes - Alcohol History How Often Do You Have a Drink Containing Alcohol: Unable to Obtain - Substance Use History Substance History: Unable to Obtain - Travel History Recent Travel in the [place] Within the Last 8 Weeks: No Recent Travel Out of the Country Within the Last 8 Weeks: No - Immunization History Tetanus Immunization: Unable to Assess Medications and Allergies Active Medications: Active Medications Acetaminophen (Tylenol) 650 mg PO Q6H PRN PRN Reason: PAIN 1-10 AND/OR FEVER >101F Al Hydroxide/Mg Hydroxide (Milk Of Magngabriela Liq) 30 ml PO Q12H PRN PRN Reason: Mild Constipation Albuterol (Duoneb Neb (Prn)) 1 ampul NEB Q2HR NEB PRN PRN Reason: WHEEZING Albuterol (Duoneb Neb (Tonja)) 1 ampul NEB Q6HR NEB TONJA Last Admin: 01/15/18 10:35 Dose: 1 ampul Aspirin (Aspirin Chew) 81 mg PO DAILY TONJA Bisacodyl (Dulcolax Supp) 10 mg RECTAL DAILY PRN PRN Reason: SEVERE CONSITIPATION Chlorhexidine Gluconate (Peridex 0.12% Oral Kit) 15 ml OROPHARYNG BID@0800, 2000 REPLACED BY [facility] Last Admin: 01/15/18 10:05 Dose: 15 ml Chlorhexidine Gluconate (Chlorhexidine 2% Cloth) 3 pack TOPICAL DAILY@0400 REPLACED BY [facility] Stop: 01/20/18 03:59 Last Admin: 01/15/18 05:28 Dose: 3 pack Chlorhexidine Gluconate (Chlorhexidine 2% Cloth) 3 pack TOPICAL DAILY@0400 PRN PRN Reason: Extra cloth needed Stop: 01/20/18 03:59 Dextrose (D50w Vial) 50 ml IV.PUSH UNSCH PRN PRN Reason: PER HYPOGLYCEMIA PROTOCOL Glucagon (Glucagon Inj) 1 mg OTHER PRN PRN PRN Reason: for Hypoglycemia Protocol Propofol (Diprivan 1000 Mg/100 Ml Inj) 1,000 mg in 100 mls @ 2.994 mls/hr IV.CONT TITRATE PRN; Protocol PRN Reason: Per Protocol Last Titration: 01/15/18 02:57 Dose: 0 mcg/kg/min, 0 mls/hr Fentanyl (Fentanyl 10 Mcg/Ml Premix Drip) 2,500 mcg in 250 mls @ 5 mls/hr IV.SIG TITRATE PRN; Protocol PRN Reason: Per Protocol Last Titration: 01/15/18 04:30 Dose: 500 mcg/hr, 50 mls/hr Midazolam HCl (Versed Inj) 50 mg in 50 mls @ 2 mls/hr IV.CONT TITRATE PRN; Protocol PRN Reason: Per Protocol Last Titration: 01/15/18 04:30 Dose: 2 mg/hr, 2 mls/hr Sodium Chloride (Ns Inj) 1,000 mls @ 84 mls/hr IV.CONT .[id number] REPLACED BY [facility] Last Admin: 01/15/18 06:39 Dose: 84 mls/hr Cefepime HCl 2,000 mg/ Sodium (Chloride) 100 mls @ 200 mls/hr IV.SIG Q12H TONJA Last Admin: 01/15/18 06:29 Dose: Not Given Albumin Human (Alburx 5% Inj) 500 mls @ 250 mls/hr IV.SIG Q6H TONJA Last Infusion: 01/15/18 07:38 Dose: Infused Vasopressin 40 unit/ Dextrose 100 mls @ 1.5 mls/hr IV.CONT CONT TONJA; Protocol Last Infusion: 01/15/18 07:38 Dose: 0.04 units/min, 6 mls/hr Sodium Bicarbonate 150 meq/ (Sterile Water) 1,000 mls @ 150 mls/hr IV.CONT .Q6H40M REPLACED BY [facility] Last Admin: 01/15/18 08:08 Dose: 150 mls/hr Epinephrine HCl 2 mg/ Dextrose 250 mls @ 22.5 mls/hr IV.CONT TITRATE PRN; Protocol PRN Reason: Per Protocol Epoprostenol Sodium 100 ml/ (Sodium Chloride) 100 mls @ 5 mls/hr NEB Q8H REPLACED BY [facility] Last Infusion: 01/15/18 07:38 Dose: 7 mls/hr Norepinephrine Bitartrate 16 (mg/ Dextrose) 250 mls @ 1.87 mls/hr IV.CONT TITRATE PRN; Protocol PRN Reason: See Protocol Last Titration: 01/15/18 10:08 Dose: 6 mcg/min, 5.62 mls/hr Heparin Sodium/Dextrose (Heparin/D5w 25,000 U/250 Ml) 25,000 unit in 250 mls @ 10 mls/hr IV.CONT TITRATE PRN; Protocol PRN Reason: Per Protocol Insulin Human Regular (Novolin R Correctional Sugar Inj) 0 units SQ Q6HR TONJA; Protocol Lactulose (Lactulose Liq) 30 ml PO DAILY PRN PRN Reason: SEVERE CONSITIPATION Methylprednisolone Sodium Succinate (Solumedrol Inj) 40 mg IV.PUSH Q6H REPLACED BY [facility] Last Admin: 01/15/18 09:40 Dose: 40 mg Miscellaneous Medication () 1 each OROPHARYNG 0000,0400,1200,1600 REPLACED BY [facility] Last Admin: 01/15/18 05:29 Dose: 1 each Morphine Sulfate (Morphine Inj) 2 mg IV.PUSH Q2H PRN PRN Reason: PAIN SCALE 6 TO 10 Ondansetron HCl (Zofran Inj) 4 mg IV.PUSH Q6H PRN PRN Reason: NAUSEA OR VOMITING Last Admin: 01/15/18 05:38 Dose: 4 mg Pantoprazole Sodium (Protonix Inj) 40 mg IV.PUSH Q12H REPLACED BY [facility] Last Admin: 01/15/18 06:00 Dose: 40 mg Pharmacy Profile Note (Vancomycin Consult Pharmacy) 1 each OTHER UNSCH PRN PRN Reason: Pharmacy to dose Senna/Docusate Sodium (Ayleen-Colace) 1 tab PO BID REPLACED BY [facility] Last Admin: 01/15/18 09:41 Dose: Not Given Sennosides (Senokot) 17.2 mg PO Q12H PRN PRN Reason: Moderate Constipation Sodium Chloride (Ns Flush) 2 ml IV.FLUSH PRN PRN PRN Reason: FLUSH AFTER USING IV ACCESS Sodium Chloride (Ns Flush) 2 ml IV.FLUSH BID REPLACED BY [facility] Last Admin: 01/15/18 10:05 Dose: 2 ml Sodium Chloride (Ns Flush) 2 ml IV.FLUSH PRN PRN PRN Reason: FLUSH AFTER USING IV ACCESS Terbutaline Sulfate (Brethine Inj) 1 mg SQ UNSCH PRN PRN Reason: For Extravasation Allergies Allergy/AdvReac Type Severity Reaction Status Date / Time erythromycin base Allergy Severe Hives Verified 01/14/18 03:00 penicillin G Allergy Severe Hives Verified 01/14/18 03:00 Exam Vital signs: Vital Signs 01/14/18 21:29 01/14/18 21:30 01/14/18 21:40 Temperature 103.0 F H Pulse Rate 140 H 140 H 136 H Respiratory Rate 18 18 16 Blood Pressure 165/84 H 165/84 H 131/79 Pulse Oximetry 74 L 74 L 89 L 01/14/18 21:45 01/14/18 21:50 01/14/18 22:20 Temperature Pulse Rate 133 H 108 H 116 H Respiratory Rate 16 16 16 Blood Pressure 141/67 H 80/40 L 140/67 Pulse Oximetry 91 L 100 97 01/14/18 22:42 01/14/18 22:45 01/14/18 23:00 Temperature Pulse Rate 42 L 146 H 114 H Respiratory Rate 16 16 16 Blood Pressure 180/110 H 90/49 L Pulse Oximetry 95 100 100 01/14/18 23:15 01/14/18 23:30 01/14/18 23:36 Temperature Pulse Rate 114 H 114 H Respiratory Rate 16 16 16 Blood Pressure 74/49 L 84/50 L Pulse Oximetry 100 98 96 01/14/18 23:40 01/14/18 23:50 01/15/18 00:15 Temperature Pulse Rate 114 H 117 H 115 H Respiratory Rate 16 16 16 Blood Pressure 81/51 L 104/57 L 125/59 L Pulse Oximetry 100 98 96 01/15/18 00:23 01/15/18 01:16 01/15/18 01:19 Temperature Pulse Rate 117 H 131 H Respiratory Rate 16 21 10 L Blood Pressure 118/56 L Pulse Oximetry 99 98 89 L 01/15/18 01:41 01/15/18 01:45 01/15/18 02:00 Temperature Pulse Rate 124 H 122 H 123 H Respiratory Rate 17 22 28 H Blood Pressure 118/85 117/61 141/73 H Pulse Oximetry 83 L 87 L 82 L 01/15/18 02:22 01/15/18 02:52 01/15/18 02:53 Temperature Pulse Rate 128 H 128 H Respiratory Rate 16 43 H 49 H Blood Pressure 78/54 L 160/63 H Pulse Oximetry 63 L 90 L 90 L 01/15/18 02:55 01/15/18 03:00 01/15/18 03:02 Temperature Pulse Rate 128 H 128 H 128 H Respiratory Rate 45 H 40 H 40 H Blood Pressure 177/76 H 141/75 H Pulse Oximetry 89 L 89 L 90 L 01/15/18 03:16 01/15/18 03:20 01/15/18 03:26 Temperature Pulse Rate 128 H 129 H 129 H Respiratory Rate 42 H 47 H 48 H Blood Pressure 132/93 H 134/98 H Pulse Oximetry 93 L 93 L 01/15/18 03:35 01/15/18 03:41 01/15/18 03:45 Temperature Pulse Rate 132 H 132 H 133 H Respiratory Rate 44 H 45 H 42 H Blood Pressure 130/87 129/64 122/69 Pulse Oximetry 92 L 93 L 96 01/15/18 03:46 01/15/18 03:51 01/15/18 03:56 Temperature Pulse Rate 130 H 132 H Respiratory Rate 41 H 44 H 42 H Blood Pressure 131/63 135/53 L Pulse Oximetry 92 L 92 L 94 L 01/15/18 04:00 01/15/18 04:11 01/15/18 04:15 Temperature 98.6 F Pulse Rate 130 H 129 H 128 H Respiratory Rate 42 H 43 H 41 H Blood Pressure 102/49 L 155/98 H 135/95 H Pulse Oximetry 95 93 L 93 L 01/15/18 04:26 01/15/18 04:31 01/15/18 04:36 Temperature Pulse Rate 126 H 126 H 127 H Respiratory Rate 44 H 49 H 48 H Blood Pressure 128/80 148/65 H 154/57 H Pulse Oximetry 96 97 98 01/15/18 04:41 01/15/18 04:44 01/15/18 04:50 Temperature 98.4 F Pulse Rate 126 H 126 H 122 H Respiratory Rate 44 H 42 H 38 H Blood Pressure 151/57 H 151/57 H 158/94 H Pulse Oximetry 94 L 94 L 96 01/15/18 04:55 01/15/18 05:00 01/15/18 05:01 Temperature Pulse Rate 121 H 122 H 120 H Respiratory Rate 40 H 45 H 42 H Blood Pressure 157/90 H 182/96 H Pulse Oximetry 98 99 97 01/15/18 06:00 01/15/18 07:51 01/15/18 10:35 Temperature Pulse Rate 107 H Respiratory Rate 10 L 10 L 10 L Blood Pressure Pulse Oximetry 99 95 99 01/15/18 10:39 Temperature Pulse Rate 97 H Respiratory Rate 10 L Blood Pressure Pulse Oximetry Intake & Output 01/14/18 01/15/18 01/15/18 18:59 06:59 18:59 Intake Total 2835 / 2835 3290 / 3290 Output Total 1106 / 1106 Balance 1729 / 1729 3290 / 3290 Weight 113 kg Intake: IV 1655 / 1655 3290 / 3290 Diprivan 1000 mg/100 ml Inj 1, 100 / 100 000 mg In 100 ml @ 5 MCG/KG/MIN 2.994 mls/hr IV.CONT TITRATE PRN Rx#:[id number] Sodium Bicarbonate 8.4% Inj 150 1000 / 1000 MEQ In Sterile Water for Inj 850 ML @ 150 mls/hr IV.CONT . Q6H40M REPLACED BY [facility] Rx#:[id number] Alburx 5% Inj 500 ML @ 250 mls/ 500 / 500 500 / 500 hr IV.SIG Q6H REPLACED BY [facility] Rx#:[id number] DDAVP Inj 20 MCG In NS Inj 50 55 / 55 ML @ 100.5 mls/hr IV.SIG ONCE ONE Rx#:[id number] LR 1000 mL Inj 1,000 ML @ Wide 1000 / 1000 Open IV.SIG BOLUS ONE Rx#: [id number] Levophed-Dextrose 4 mg/250 ml 0 / 0 250 / 250 Drip 4 mg In 250 ml @ 2 MCG/MIN 7.5 mls/hr IV.SIG TITRATE PRN Rx#:[id number] NS Inj 1,000 ML @ 3000 mls/hr 1000 / 1000 IV.SIG Q20M REPLACED BY [facility] Rx#:[id number] Vancomycin Inj 2,000 MG In NS 540 / 540 Inj 500 ML @ 270 mls/hr IV.SIG ONCE ONE Rx#:[id number] Intake (Blood Product) Amt 1180 / 1180 Plasma Thawed 5 Day Cp2d Unit 247 / 247 [id number] Plasma Thawed 5 Day Cp2d Unit 365 / 365 [id number] Plasma Thawed 5 Day Cp2d Unit 263 / 263 [id number] Plasma Thawed 5 Day Cp2d Unit 305 / 305 [id number] Output: Urine Amount (Catheter) 150 / 150 Indwelling Temp Sensing 150 / 150 Catheter Gastric Drainage 800 / 800 Oral 800 / 800 Chest Tube Drainage 156 / 156 #1 Left Pleural 6 / 6 #2 Right Pleural 150 / 150 Other: Date of Last Bowel Movement 01/15/18 Weight On Admission 113 kg - Constitutional obese, obtunded - Routine HEENT Exam Head: Present: normocephalic, atraumatic Eye: Present: PERRL, conjunctival icterus ENT: Present: mucous membranes dry, oropharynx clear - Routine Neck Exam Present: supple. Absent: JVD - Routine Chest/Breast/Axilla Exam Chest wall: Present: chest tube (B/l ) Comments: + crepitus to palpation - Routine Respiratory Exam Present: patient mechanically ventilated, decreased breath sounds, rhonchi - Routine Cardiovascular Exam Present: RRR, S1, S2. Absent: murmur, gallop, rubs - Routine Abdominal Exam Present: soft, distended. Absent: normoactive bowel sounds (abscent bowel sounds), tenderness, organomegaly, mass - Routine Extremities Exam Present: cyanosis, edema. Absent: clubbing - Routine Skin Exam Present: dry, warm, jaundice. Absent: rash - Routine Neurological Exam heavily sedated unresponsive - Routine Psychiatric Exam Present: unable to assess Results - Labs CBC & Chem 7: 01/15/18 03:30 01/15/18 03:30 Labs: Laboratory Results - last 24 hr 01/14/18 01/14/18 01/14/18 21:36 21:36 21:36 WBC 20.3 H D RBC 4.60 Hgb 14.3 Hct 42.5 MCV 92.4 MCH 31.0 MCHC 33.6 RDW 14.5 Plt Count 135 L MPV 9.0 Prelim Diff (Auto) Neut % (Auto) 91.0 H Lymph % (Auto) 5.4 L Starke % (Auto) 3.4 Eos % (Auto) 0.0 Baso % (Auto) 0.2 Neut # (Auto) 18.4 H Lymph # (Auto) 1.1 Starke # (Auto) 0.7 Eos # (Auto) 0.0 Baso # (Auto) 0.0 WBC Differential . Seg Neuts % (Manual) Band Neuts % (Manual) Lymphocytes % (Manual) Monocytes % (Manual) Basophils % (Manual) Metamyelocytes % (Man) Blast Cells % (Manual) Abs Neuts (Manual) Differential Comment Auto diff final Platelet Estimate Platelet Morphology Tear Drop Cells PT INR APTT Puncture Site Patient Temperature O2 Saturation ABG pH ABG pCO2 ABG pO2 ABG HCO3 ABG O2 Content ABG Base Excess ABG Methemoglobin Hemoglobin Carboxyhemoglobin O2 Delivery Device Liter Flow Vent Setting Inspired O2 Critical Value Sodium 136 Potassium 4.9 D Chloride 86 L D Carbon Dioxide 14.9 L Anion Gap 35 H BUN 17 Creatinine 2.27 H Estimated GFR 29 L Random Glucose 124 H Lactic Acid 14.5 H* Calcium 8.5 D Prot Corrected Calcium Phosphorus Magnesium 4.3 H Total Bilirubin 2.9 H AST 617 H ALT 190 H Alkaline Phosphatase 181 H Troponin I 0.52 H Total Protein 8.2 D Albumin 4.0 Nasal Screen MRSA (PCR) Serum Alcohol Less than 3 Blood Bank Comment 01/15/18 01/15/18 01/15/18 00:50 01:37 01:50 WBC RBC Hgb Hct MCV MCH MCHC RDW Plt Count MPV Prelim Diff (Auto) Neut % (Auto) Lymph % (Auto) Starke % (Auto) Eos % (Auto) Baso % (Auto) Neut # (Auto) Lymph # (Auto) Starke # (Auto) Eos # (Auto) Baso # (Auto) WBC Differential Seg Neuts % (Manual) Band Neuts % (Manual) Lymphocytes % (Manual) Monocytes % (Manual) Basophils % (Manual) Metamyelocytes % (Man) Blast Cells % (Manual) Abs Neuts (Manual) Differential Comment Platelet Estimate Platelet Morphology Tear Drop Cells PT INR APTT Puncture Site Art line Art line Patient Temperature 98.6 98.6 O2 Saturation 97 80 L* ABG pH 7.21 L* 7.18 L* ABG pCO2 39 54 H* ABG pO2 267 H 63 ABG HCO3 15 L* 19 L ABG O2 Content 17.9 13.0 ABG Base Excess -11.6 L -7.7 L ABG Methemoglobin 1.3 1.9 Hemoglobin 12.7 11.6 L Carboxyhemoglobin 0.3 0.6 O2 Delivery Device Ambu Ventilator Liter Flow 15.00 Vent Setting Pc/ac Inspired O2 100 100 Critical Value Yes Yes Sodium Potassium Chloride Carbon Dioxide Anion Gap BUN Creatinine Estimated GFR Random Glucose Lactic Acid 5.9 H* Calcium Prot Corrected Calcium Phosphorus Magnesium Total Bilirubin AST ALT Alkaline Phosphatase Troponin I Total Protein Albumin Nasal Screen MRSA (PCR) Serum Alcohol Blood Bank Comment 01/15/18 01/15/18 01/15/18 02:00 02:00 02:18 WBC RBC Hgb Hct MCV MCH MCHC RDW Plt Count MPV Prelim Diff (Auto) Neut % (Auto) Lymph % (Auto) Starke % (Auto) Eos % (Auto) Baso % (Auto) Neut # (Auto) Lymph # (Auto) Starke # (Auto) Eos # (Auto) Baso # (Auto) WBC Differential Seg Neuts % (Manual) Band Neuts % (Manual) Lymphocytes % (Manual) Monocytes % (Manual) Basophils % (Manual) Metamyelocytes % (Man) Blast Cells % (Manual) Abs Neuts (Manual) Differential Comment Platelet Estimate Platelet Morphology Tear Drop Cells PT 12.8 H INR 1.3 APTT Puncture Site Patient Temperature O2 Saturation ABG pH ABG pCO2 ABG pO2 ABG HCO3 ABG O2 Content ABG Base Excess ABG Methemoglobin Hemoglobin Carboxyhemoglobin O2 Delivery Device Liter Flow Vent Setting Inspired O2 Critical Value Sodium Potassium Chloride Carbon Dioxide Anion Gap BUN Creatinine Estimated GFR Random Glucose Lactic Acid Calcium Prot Corrected Calcium Phosphorus Magnesium Total Bilirubin AST ALT Alkaline Phosphatase Troponin I Total Protein Albumin Nasal Screen MRSA (PCR) Not detected Serum Alcohol Blood Bank Comment 01/15/18 01/15/18 01/15/18 03:30 03:30 03:30 WBC 3.3 L D RBC 4.04 L Hgb 12.3 L D Hct 37.1 L MCV 91.8 MCH 30.5 MCHC 33.2 RDW 14.6 Plt Count 96 L MPV 8.7 Prelim Diff (Auto) Slide review pending Neut % (Auto) 85.5 H Lymph % (Auto) 12.8 Starke % (Auto) 1.2 Eos % (Auto) 0.1 Baso % (Auto) 0.4 Neut # (Auto) 2.8 Lymph # (Auto) 0.4 L Starke # (Auto) 0.0 Eos # (Auto) 0.0 Baso # (Auto) 0.0 WBC Differential Manual diff final Seg Neuts % (Manual) 68 Band Neuts % (Manual) 18 H Lymphocytes % (Manual) 8 L Monocytes % (Manual) 2 Basophils % (Manual) 1 Metamyelocytes % (Man) 2 H Blast Cells % (Manual) 1 H Abs Neuts (Manual) 2.9 Differential Comment . Platelet Estimate Low L Platelet Morphology Normal Tear Drop Cells 1+ H PT 13.1 H INR 1.3 APTT 27.3 Puncture Site Patient Temperature O2 Saturation ABG pH ABG pCO2 ABG pO2 ABG HCO3 ABG O2 Content ABG Base Excess ABG Methemoglobin Hemoglobin Carboxyhemoglobin O2 Delivery Device Liter Flow Vent Setting Inspired O2 Critical Value Sodium Potassium Chloride Carbon Dioxide Anion Gap BUN Creatinine Estimated GFR Random Glucose Lactic Acid Calcium Prot Corrected Calcium Phosphorus Magnesium Total Bilirubin AST ALT Alkaline Phosphatase Troponin I Cancelled Total Protein Albumin Nasal Screen MRSA (PCR) Serum Alcohol Blood Bank Comment 01/15/18 01/15/18 01/15/18 03:30 03:30 06:00 WBC RBC Hgb Hct MCV MCH MCHC RDW Plt Count MPV Prelim Diff (Auto) Neut % (Auto) Lymph % (Auto) Starke % (Auto) Eos % (Auto) Baso % (Auto) Neut # (Auto) Lymph # (Auto) Starke # (Auto) Eos # (Auto) Baso # (Auto) WBC Differential Seg Neuts % (Manual) Band Neuts % (Manual) Lymphocytes % (Manual) Monocytes % (Manual) Basophils % (Manual) Metamyelocytes % (Man) Blast Cells % (Manual) Abs Neuts (Manual) Differential Comment Platelet Estimate Platelet Morphology Tear Drop Cells PT INR APTT Puncture Site Art line Patient Temperature 98.6 O2 Saturation 96 ABG pH 7.35 L ABG pCO2 38 ABG pO2 173 H ABG HCO3 20 L ABG O2 Content 13.9 ABG Base Excess -4.3 L ABG Methemoglobin 1.8 Hemoglobin 10.0 L Carboxyhemoglobin 0.6 O2 Delivery Device Ventilator Liter Flow Vent Setting Bilevel Inspired O2 100 Critical Value No Sodium 140 Potassium 3.3 L D Chloride 96 L D Carbon Dioxide 19.6 L Anion Gap 24 H BUN 26 H Creatinine 2.55 H Estimated GFR 26 L Random Glucose 278 H D Lactic Acid 4.1 H* Calcium 6.2 L* D Prot Corrected Calcium 6.8 L* Phosphorus 9.4 H Magnesium 3.5 H D Total Bilirubin 3.9 H AST 2663 H ALT 535 H Alkaline Phosphatase 164 H Troponin I 1.89 H* Total Protein 5.7 L D Albumin 3.1 L D Nasal Screen MRSA (PCR) Serum Alcohol Blood Bank Comment - Imaging Impressions Cervical Spine CT 01/14/18 21:58 CONCLUSION: 1. No acute fracture or malalignment. 2. Subcutaneous emphysema again noted as well as the known right pneumothorax. Chest X-Ray 01/14/18 21:58 CONCLUSION: 1. ET tube in good position. 2. Subcutaneous emphysema clavicular and chest wall region. 3. Probable pneumomediastinum. Head CT 01/14/18 21:58 CONCLUSION: 1. No acute hemorrhage or mass effect. 2. Stable area of encephalomalacia in the right lateral lobe. . Chest CT 01/14/18 22:54 CONCLUSION: 1. Bilateral pneumothoraces right greater than left. 2. Apparent pneumomediastinum with gas also dissecting into the right side of the retroperitoneum and anterior to the right kidney. 3. Linear collections of gas along the anterior inner abdominal wall which could represent collections of dissected free air. Subcutaneous emphysema is also noted. 4. Consolidation in both posterior lung bases and posterior hilar regions. 5. Small right pleural effusion. 6. Suboptimal study secondary to extensive motion artifact. This limits the sensitivity. These findings were called to the emergency room physician immediately after the study was performed. Chest X-Ray 01/15/18 00:03 CONCLUSION: 1. Interval placement of bilateral small bore chest tubes. 2. Interval placement nasogastric tube and right subclavian central venous line. 3. There is consolidation again noted in both perihilar regions and retrocardiac region. 4. Small apparent residual right pneumothorax and pneumomediastinum again noted. Chest X-Ray 01/15/18 02:18 CONCLUSION: 1. Optimal examination mild motion artifact. 2. The right sided chest tube is not well visualized on the current study there is a left-sided chest tube appears unchanged. 3. Bilateral subcutaneous emphysema right greater than left with abnormal lucency projected over portions of both upper lobes concern for residual pneumothoraces. 4. Dense consolidation again noted in both lungs. Assessment and Plan - Plan Sepsis, septic shock on presentation: Lactic acidosis Leukocytosis, then leukopenia Multiorgan failuer Acute VDRF ARF Critical, unstable Aspiration PNA vs aspiration s/p seizure (ETOH withdrawl?) P t [id number] with vomiting Seen same day in ER and CT abd/pel done w/o acute findings Presented with pneumomediastinum and b/l pneumothoraces Ethiology of pneumomediastinum dw GI. Dr Soliman thinks traumatic intubation more likely explanation of the pt pneumomediastanum then esophageal perf Zosyn Fluconazol CT A/P Upper GI series - when stable KUB dw Kamron Lee (rad), [place]
--- NOTE | 2018-01-15 12:46 | XR ---
EXAM DATE: 01/15/2018 12:21 PM EST AGE/SEX: 62 years / Male INDICATIONS: Free air. CLINICAL DATA: This is the patient's initial encounter. Patient reports that signs and symptoms have been present for 4 - 6 days and indicates a pain score of Nonresponsive. MEDICAL/SURGICAL HISTORY: Hypertension. Cerebrovascular disease. diabetes None. COMPARISON: [facility] – [place], ABDOMEN KUB ONLY, 05/15/2012. . FINDINGS: No free intraperitoneal air is identified on these limited films a nasogastric tube has its tip in th e proximal stomach. Small bilateral chest tubes are noted. Residual small pneumothoraces are noted. N o bowel obstruction or ileus is noted. CONCLUSION: 1. No free intraperitoneal air. 2. Residual small pneumothoraces with small chest tubes in place. Electronically signed by: Darnell Dang MD 01/15/2018 12:45 PM EST
[2018-01-15] MEDS ORDERED: Piperacil/Tazo 4.5 GM Premix 4.5 GM/100 ML BAG IV.SIG SCH (13:00)
[2018-01-15] MEDS ORDERED: Sodium Bicarbonate 8.4% Inj 50 MEQ/50 ML Syringe IV.CONT ONE ×2 (15:38→15:41)
--- NOTE | 2018-01-15 15:50 | P.DIET ---
Nutritional Evaluation Type of nutrition evaluation: initial Nutrition consult regarding: Tube Feeding Subjective Subjective Comments: Assessment here uses guidelines from [employer] and [employer] for critically ill patients w/BMI 30 and greater Objective - Diagnosis Seizures/Respiratory Distress/Intubated - Objective % IBW: 150 Energy Needs - Lower Range (kCal/kg): 11 Energy Needs - Upper Range (kCal/kg): 14 Lower Limit kCal/kg (kCals): 1,243 Upper Limit kCal/kg (kCals): 1,582 Lower Limit Protein Factor (Grams per Kg): 1.5 Upper Limit Protein Factor (Grams per Kg): 1.7 Lower Protein Needs (Protein): 113 Upper Protein Needs (Protein): 128 Dietitian Reviewed in Medical Record: Curent medications, Intake & Output, Labs , Medical history, Tube feeding Diet Order: TF'ing ONLY: TwoCal HN @ goal rate 65ml/hr Objective Comments: PMH includes: Anxiety, CVA, DM, ETOH Abuse, HTN, Alcohol Abuse Labs include: BUN 26, Creatinine 2.55, estGFR 26, Glucose 278, Phosphorus 9.4, Mg 3.5 Meds include: Novolin R Assessment Assessment: Pt is at nutritional risk r/t diagnosis and need for TF'ing. Rec TF'ing w/Vital High Protein @ goal rate 55ml/hr to offer 1320, 116g protein and 1104ml free water. Monitor renal labs/electrolytes closely; glucose noted-pt receiving Novolin R. Additional Recs to follow r/t clinical course. Recommendations: 1. Rec TF'ing w/Vital High Protein @ goal rate 55ml/hr 2. Additional Recs to follow r/t clinical course Dietitian to Monitor: Lab values, Electrolytes, Renal labs, Glucose level, Intake & Output, Tube feeding tolerance, Weight change, Medical course
[2018-01-15 16:42] LABS: Amphetamine Screen,Urine Neg (Neg); Barbiturate Screen,Urine Neg (Neg); Cannabinoid Screen,Urine Neg (Neg); Cocaine Screen,Urine Neg (Neg)
[2018-01-15 16:49] LABS: Opiate Screen,Urine Neg (Neg)
--- NOTE | 2018-01-15 17:59 | ECG ---
Date Performed: 01/14/2018 Time Performed: 22:36:32 PTAGE: 62 years EKG: SINUS BRADYCARDIA INFERIOR ST ELEVATION, CONSISTENT WITH ACUTE INFERIOR ST ELEVATION CO SIG NIFICANT ARTIFACT IN PRECORDIAL LEADS Compared to PREVIOUS TRACING , the patient is no longer tachycardic, and does appear to be having an acute inferior ST elevation CO. Clinical correlation requested. PREVIOUS TRACIN11/01/2017 03.38 DOCTOR: Malia Gordon Interpretating Date/Time 01/15/2018 17:57:26
--- NOTE | 2018-01-15 19:09 | ECHRPT ---
Indication: Heart Failure CONCLUSIONS Technically very difficult study. Normal left ventricular size. Mild concentric left ventricular hypertrophy. The left ventricular systolic function is normal with an estimated ejection fraction in the range of 55-60%. No definite regional wall motion abnormallities. The right ventricle was not well visualized. Possible mild right ventricular enlargement with norm al systolic function. The aortic valve is not well visualized. There is trace tricuspid valve regurgitation. The estimated pulmonary arterial pressure is 31 mmHg. BP: / HR: Rhythm: MEASUREMENTS (Male / Female) Normal Values Technical Quality:Very technically difficult study 2D ECHO LV Diastolic Diameter PLAX 3.7 cm 4.2 - 5.9 / 3.9 - 5.3 cm LV Systolic Diameter PLAX 2.6 cm IVS Diastolic Thickness 1.2 cm 0.6 - 1.0 / 0.6 - 0.9 cm LVPW Diastolic Thickness 1.1 cm 0.6 - 1.0 / 0.6 - 0.9 cm LV Relative Wall Thickness 0.6 RV Internal Dim ED PLAX 4.0 cm LVOT Diameter 2.4 cm Aortic Root Diameter 2.8 cm LA Systolic Diameter LX 3.6 cm 3.0 - 4.0 / 2.7 - 3.8 cm DOPPLER TR Peak Velocity 227.0 cm/s TR Peak Gradient 20.6 mmHg Right Atrial Pressure 10.0 mmHg Pulmonary Artery Systolic Pressu 30.6 mmHg Right Ventricular Systolic Press 30.6 mmHg FINDINGS LEFT VENTRICLE Technically very difficult study. Normal left ventricular size. Mild concentric left ventricular hypertrophy. The left ventricular systolic function is normal with an estimated ejection fraction in the range of 55-60%. No definite regional wall motion abnormallities. RIGHT VENTRICLE The right ventricle was not well visualized. Possible mild right ventricular enlargement with norm al systolic function. LEFT ATRIUM The left atrial size is normal. RIGHT ATRIUM The right atrial size is normal. ATRIAL SEPTUM Normal atrial septal thickness. AORTA The aortic root and proximal ascending aorta are normal in size on limited imaging. MITRAL VALVE Structurally normal mitral valve. AORTIC VALVE The aortic valve is not well visualized. TRICUSPID VALVE There is trace tricuspid valve regurgitation. The estimated pulmonary arterial pressure is 31 mmHg. PULMONARY VALVE The pulmonary valve is not well visualized. VESSELS The inferior vena cava is dilated. PERICARDIUM No pericardial effusion. Adriano Gomez MD (Electronically Signed) Final Date:15 January 2018 19:09
[2018-01-15] MEDS: Piperacil/Tazo 3.375 GM Premix 50 ML IV.SIG SCH (19:45)
--- NOTE | 2018-01-15 20:57 | MG ---
cc: Waqar Smith MD DESCRIPTION: Generalized delta activity low amplitude with a lot of fast frequency artifact in the frontal channels, 1-3 Hz, 5-10 microvolts. Limited driving with photic stimulation. INTERPRETATION: No obvious seizure activity. Moderate encephalopathy with frontal electrical myogenic artifact. Clinical correlation. Waqar Smith MD MG/em , 08:38 PM , 08:43 PM
[2018-01-16] MEDS: Albumin Human 5% Inj 500 ML IV.SIG SCH ×2 (00:12→06:20)
[2018-01-16] MEDS: Oral Hygiene Kit OROPHARYNG SCH ×4 (00:13→15:58)
[2018-01-16] MEDS: Insulin NovoLIN Regular Correctional Sugar Inj SQ SCH ×4 (00:13→17:37)
[2018-01-16] MEDS: Epoprostenol (30,000/mL) Neb 100 ML in Sodium Chlor 0.9% Inj 0 ML NEB SCH ×4 (01:07→20:51)
[2018-01-16] MEDS: Pantoprazole Inj 40 MG Vial IV.PUSH SCH ×2 (01:07→13:31)
[2018-01-16] MEDS: MethylPREDNISolone Sod Succinate Inj 40 MG/ML Vial IV.PUSH SCH ×3 (01:07→17:37)
[2018-01-16] MEDS: Piperacil/Tazo 3.375 GM Premix 50 ML IV.SIG SCH ×4 (01:08→19:49)
--- NOTE | 2018-01-16 04:37 | XR ---
EXAM DATE: 01/16/2018 3:30 AM EST AGE/SEX: 62 years / Male INDICATIONS: Short of breath. CLINICAL DATA: This is the patient's subsequent encounter. Patient reports that signs and symptoms h ave been present for 2 days and indicates a pain score of 0/10. MEDICAL/SURGICAL HISTORY: Hypertension. Cerebrovascular disease. Diabetes. Chest tube, left. COMPARISON: C, CHEST 1V SINGLE AP, 01/15/2018. . FINDINGS: A single AP portable semierect view of the chest was obtained and again demonstrates an endotracheal tube in place with the tip 2 cm above the alberto. The nasogastric tube remains in place. A right subc lavian central venous catheter is unchanged. Bilateral alveolar opacities are noted in both lungs gre atest in left perihilar region and both lung bases. The previously noted gas surrounding portions of the heart is decreased. There is mild lucency along the medial left upper lobe. There are no apical p neumothoraces. CONCLUSION: 1. [Interval decrease in pneumothoraces and pneumomediastinum apparent mild residual medial left upp er lobe. 2. Diffuse airspace opacities remain. Electronically signed by: Luis Carlos Silva MD 01/16/2018 4:36 AM EST
[2018-01-16] MEDS: Chlorhexidine Gluconate 2% 1 Pack (2 Cloths) TOPICAL SCH (04:49)
[2018-01-16] MEDS: Sodium Bicarbonate 8.4% Inj 150 MEQ in Water for Inj, Sterile 850 ML IV.CONT SCH (04:51)
[2018-01-16 05:36] LABS: Baso % (Auto) 0.1 % (0.0-2.0); Eos % (Auto) 0.7 % (0.0-4.0); Hemoglobin 8.1 gm/dL (13.0-17.0); Lymph # (Auto) 0.2 th/mm3 (1.0-4.8); Lymph % (Auto) 4.2 % (9.0-44.0); Mean Corpuscular HGB Conc 35.4 % (32.0-36.0); Mean Corpuscular Hemoglobin 31.2 pg (27.0-34.0); Mean Platelet Volume 8.6 fL (7.0-11.0); Mono # (Auto) 0.1 th/mm3 (0.0-0.9); Mono % (Auto) 1.4 % (0.0-8.0); Neut % (Auto) 93.6 % (16.0-70.0); Platelet Count 26 th/mm3 (150-450); Red Blood Count 2.61 mil/mm3 (4.50-5.90); Red Cell Distribution Width 14.6 % (11.6-17.2); White Blood Count 5.3 th/mm3 (4.0-11.0)
[2018-01-16 06:43] LABS: Albumin 3.5 g/dL (3.4-5.0); Calcium 5.6 mg/dL (8.5-10.1); Carbon Dioxide 32.9 meq/L (21.0-32.0); Magnesium 2.3 mg/dL (1.5-2.5); Total Protein 5.9 g/dL (6.4-8.2); Vancomycin,Random 17.2 Comment
[2018-01-16] MEDS ORDERED: Diatrizoate Meglum/Diatrizoate Sod Liq 9 ML UDC PO ONE (07:45)
--- NOTE | 2018-01-16 07:58 | P.PNCA ---
Subjective Interval history: Intubated. Sedated. Medications and Allergies Active Medications: Active Medications Al Hydroxide/Mg Hydroxide (Milk Of Magngabriela Liq) 30 ml PO Q12H PRN PRN Reason: Mild Constipation Albuterol (Duoneb Neb (Tonja)) 1 ampul NEB Q4HR NEB [facility] Albuterol (Albuterol Neb (Prn)) 2.5 mg NEB Q2HR NEB PRN PRN Reason: DYSPNEA Artificial Tears (Tears Naturale Opth Drops) 1 drop EACH EYE Q8H [facility] Aspirin (Aspirin Chew) 81 mg PO DAILY [facility] Last Admin: 01/15/18 12:07 Dose: 81 mg Bisacodyl (Dulcolax Supp) 10 mg RECTAL DAILY PRN PRN Reason: SEVERE CONSITIPATION Chlorhexidine Gluconate (Peridex 0.12% Oral Kit) 15 ml OROPHARYNG BID@0800, 2000 [facility] Last Admin: 01/15/18 19:45 Dose: 15 ml Chlorhexidine Gluconate (Chlorhexidine 2% Cloth) 3 pack TOPICAL DAILY@0400 [facility] Stop: 01/20/18 03:59 Last Admin: 01/16/18 04:49 Dose: 3 pack Chlorhexidine Gluconate (Chlorhexidine 2% Cloth) 3 pack TOPICAL DAILY@0400 PRN PRN Reason: Extra cloth needed Stop: 01/20/18 03:59 Dextrose (D50w Vial) 50 ml IV.PUSH UNSCH PRN PRN Reason: PER HYPOGLYCEMIA PROTOCOL Glucagon (Glucagon Inj) 1 mg OTHER PRN PRN PRN Reason: for Hypoglycemia Protocol Propofol (Diprivan 1000 Mg/100 Ml Inj) 1,000 mg in 100 mls @ 2.994 mls/hr IV.CONT TITRATE PRN; Protocol PRN Reason: Per Protocol Last Titration: 01/15/18 07:00 Dose: Infused Fentanyl (Fentanyl 10 Mcg/Ml Premix Drip) 2,500 mcg in 250 mls @ 5 mls/hr IV.SIG TITRATE PRN; Protocol PRN Reason: Per Protocol Last Titration: 01/15/18 07:00 Dose: 50 mcg/hr, 5 mls/hr Midazolam HCl (Versed Inj) 50 mg in 50 mls @ 2 mls/hr IV.CONT TITRATE PRN; Protocol PRN Reason: Per Protocol Last Admin: 01/15/18 22:05 Dose: 2 mg/hr, 2 mls/hr Epinephrine HCl 2 mg/ Dextrose 250 mls @ 22.5 mls/hr IV.CONT TITRATE PRN; Protocol PRN Reason: Per Protocol Epoprostenol Sodium 100 ml/ (Sodium Chloride) 100 mls @ 5 mls/hr NEB Q8H [facility] Last Admin: 01/16/18 01:07 Dose: 7 mls/hr Norepinephrine Bitartrate 16 (mg/ Dextrose) 250 mls @ 1.87 mls/hr IV.CONT TITRATE PRN; Protocol PRN Reason: See Protocol Last Titration: 01/15/18 18:23 Dose: Infused Heparin Sodium/Dextrose (Heparin/D5w 25,000 U/250 Ml) 25,000 unit in 250 mls @ 10 mls/hr IV.CONT TITRATE PRN; Protocol PRN Reason: Per Protocol Last Titration: 01/16/18 00:00 Dose: 500 units/hr, 5 mls/hr Fluconazole (Diflucan 400 Mg Premix Bag) 200 mls @ 100 mls/hr IV.SIG Q24H [facility] Last Infusion: 01/15/18 18:22 Dose: Infused Piperacillin/Tazobactam/Dextrose (Zosyn 3.375 Gm Premix) 50 mls @ 100 mls/hr IV.SIG Q6H [facility] Last Infusion: 01/16/18 02:04 Dose: Infused Calcium Chloride 2 gm/ Sodium (Chloride) 120 mls @ 120 mls/hr IV.SIG ONCE ONE Stop: 01/16/18 09:29 Insulin Human Regular (Novolin R Correctional Sugar Inj) 0 units SQ Q6HR [facility]; Protocol Last Admin: 01/16/18 06:27 Dose: Not Given Lactulose (Lactulose Liq) 30 ml PO DAILY PRN PRN Reason: SEVERE CONSITIPATION Levothyroxine Sodium (Synthroid) 88 mcg PO DAILY@0600 [facility] Methylprednisolone Sodium Succinate (Solumedrol Inj) 40 mg IV.PUSH Q8H [facility] Miscellaneous Medication () 1 each OROPHARYNG 0000,0400,1200,1600 [facility] Last Admin: 01/16/18 04:49 Dose: 1 each Morphine Sulfate (Morphine Inj) 2 mg IV.PUSH Q2H PRN PRN Reason: PAIN SCALE 6 TO 10 Ondansetron HCl (Zofran Inj) 4 mg IV.PUSH Q6H PRN PRN Reason: NAUSEA OR VOMITING Last Admin: 01/15/18 05:38 Dose: 4 mg Pantoprazole Sodium (Protonix Inj) 40 mg IV.PUSH Q12H [facility] Last Admin: 01/16/18 01:07 Dose: 40 mg Pharmacy Profile Note (Vancomycin Consult Pharmacy) 1 each OTHER UNSCH PRN PRN Reason: Pharmacy to dose Senna/Docusate Sodium (Ayleen-Colace) 1 tab PO BID [facility] Last Admin: 01/15/18 21:51 Dose: Not Given Sennosides (Senokot) 17.2 mg PO Q12H PRN PRN Reason: Moderate Constipation Sodium Chloride (Ns Flush) 2 ml IV.FLUSH BID [facility] Last Admin: 01/15/18 21:51 Dose: 2 ml Sodium Chloride (Ns Flush) 2 ml IV.FLUSH PRN PRN PRN Reason: FLUSH AFTER USING IV ACCESS Terbutaline Sulfate (Brethine Inj) 1 mg SQ UNSCH PRN PRN Reason: For Extravasation Allergies Allergy/AdvReac Type Severity Reaction Status Date / Time erythromycin base Allergy Severe Hives Verified 01/14/18 03:00 penicillin G Allergy Severe Hives Verified 01/14/18 03:00 Physical Exam Vital signs: Vital Signs 01/15/18 08:00 01/15/18 09:00 01/15/18 10:00 Temperature 98.8 F Pulse Rate 100 H 93 H 93 H Respiratory Rate 10 L 10 L 10 L Pulse Oximetry 97 99 99 01/15/18 10:35 01/15/18 10:39 01/15/18 11:00 Temperature Pulse Rate 97 H 104 H Respiratory Rate 10 L 10 L 17 Pulse Oximetry 99 79 L 01/15/18 12:00 01/15/18 12:23 01/15/18 13:00 Temperature 100.0 F H Pulse Rate 97 H 92 H Respiratory Rate 10 L 8 L 10 L Pulse Oximetry 97 93 L 95 01/15/18 14:00 01/15/18 15:00 01/15/18 15:33 Temperature Pulse Rate 94 H 90 86 Respiratory Rate 10 L 10 L 10 L Pulse Oximetry 98 96 98 01/15/18 16:00 01/15/18 17:00 01/15/18 18:00 Temperature 99.5 F Pulse Rate 89 92 H 99 H Respiratory Rate 10 L 10 L 10 L Pulse Oximetry 99 96 97 01/15/18 19:00 01/15/18 20:00 01/15/18 20:37 Temperature 99.5 F Pulse Rate 96 H 94 H 93 H Respiratory Rate 10 L 10 L 10 L Pulse Oximetry 97 96 97 01/15/18 21:00 01/15/18 22:00 01/15/18 23:00 Temperature Pulse Rate 93 H 95 H 91 H Respiratory Rate 10 L 10 L 10 L Pulse Oximetry 97 98 98 01/16/18 00:00 01/16/18 00:48 01/16/18 01:00 Temperature 99.5 F Pulse Rate 85 89 Respiratory Rate 10 L 10 L 10 L Pulse Oximetry 98 99 98 01/16/18 02:00 01/16/18 03:00 01/16/18 04:00 Temperature 98.6 F Pulse Rate 90 93 H 88 Respiratory Rate 10 L 10 L 10 L Pulse Oximetry 97 97 98 01/16/18 04:15 01/16/18 04:18 01/16/18 05:00 Temperature Pulse Rate 88 89 Respiratory Rate 10 L 13 10 L Pulse Oximetry 98 98 01/16/18 06:00 Temperature Pulse Rate 83 Respiratory Rate 10 L Pulse Oximetry 97 Intake & Output 01/15/18 01/16/18 01/16/18 18:59 06:59 18:59 Intake Total 7408 / 7408 3250 / 3250 Output Total 297 / 297 202 / 202 Balance 7111 / 7111 3048 / 3048 Weight 121.1 kg Intake: IV 7408 / 7408 3250 / 3250 Versed Inj 50 mg In 50 ml @ 2 50 / 50 MG/HR 2 mls/hr IV.CONT TITRATE PRN Rx#:[id number] Levophed Inj 16 MG In D5W Inj 234 ML @ 2 MCG/MIN 1.87 mls/hr IV.CONT TITRATE PRN Rx#: [id number] Diprivan 1000 mg/100 ml Inj 1, 5 / 5 000 mg In 100 ml @ 5 MCG/KG/MIN 2.994 mls/hr IV.CONT TITRATE PRN Rx#:[id number] NS Inj 1,000 ML @ 84 mls/hr IV. 1000 / 1000 CONT .[id number] [facility] Rx#:[id number] Sodium Bicarbonate 8.4% Inj 150 1999 / 1999 1999 / 1999 MEQ In Sterile Water for Inj 850 ML @ 150 mls/hr IV.CONT . Q6H40M [facility] Rx#:[id number] Pitressin Inj 40 UNIT In D5W 90 / 90 Inj 98 ML @ 0.01 UNITS/MIN 1.5 mls/hr IV.CONT CONT [facility] Rx#: [id number] Alburx 5% Inj 500 ML @ 250 mls/ 1000 / 1000 1000 / 1000 hr IV.SIG Q6H [facility] Rx#:[id number] Maxipime Inj 2,000 MG In NS Inj 100 / 100 100 ML @ 200 mls/hr IV.SIG Q12H [facility] Rx#:[id number] Diflucan 400 mg Premix Bag 200 200 / 200 ML @ 100 mls/hr IV.SIG Q24H [facility] Rx#:[id number] LR 1000 mL Inj 1,000 ML @ Wide 1999 / 1999 Open IV.SIG BOLUS ONE Rx#: [id number] Levophed-Dextrose 4 mg/250 ml 250 / 250 Drip 4 mg In 250 ml @ 2 MCG/MIN 7.5 mls/hr IV.SIG TITRATE PRN Rx#:[id number] Zosyn 3.375 GM Premix 50 ML @ 100 / 100 100 mls/hr IV.SIG Q6H [facility] Rx#: [id number] Zosyn 4.5 GM Premix 4.5 gm In 100 / 100 100 ml @ 200 mls/hr IV.SIG Q6H [facility] Rx#:[id number] Vancomycin Inj 2,000 MG In NS 540 / 540 Inj 500 ML @ 270 mls/hr IV.SIG ONCE ONE Rx#:[id number] Flolan (30,000 ng/mL) Neb 100 100 / 100 100 / 100 ML In NS Inj 0 ML @ 5 mls/hr NEB Q8H [facility] Rx#:[id number] Output: Urine Amount (Catheter) 225 / 225 100 / 100 Indwelling Temp Sensing 225 / 225 100 / 100 Catheter Chest Tube Drainage 72 / 72 102 / 102 #1 Left Pleural #2 Right Pleural 62 / 62 92 / 92 Other: Date of Last Bowel Movement 01/15/18 01/15/18 # Incontinent Bowel Movements 1 - Constitutional Comments: Intubated. Sedated. - Routine Respiratory Exam Present: CTA bilaterally - Routine Cardiovascular Exam Present: RRR, S1, S2. Absent: murmur, gallop - Routine Abdominal Exam Present: soft, normoactive bowel sounds. Absent: organomegaly - Routine Extremities Exam Absent: cyanosis, clubbing, edema - Urinary Catheter Management Indwelling Temp Sensing Catheter Cath placed during this visit: yes Reason for continuing: Gross Hematuria Insertion date: 01/14/18 Insertion time: 22:00 Results 01/16/18 05:05 01/16/18 05:05 Cardiac Enzymes 01/14/18 01/15/18 01/15/18 Range/Units 21:36 03:30 03:30 AST 617 H 2663 H (15-37) U/L Troponin I 0.52 H Cancelled 1.89 H* (0.02-0.05) ng/mL 01/16/18 Range/Units 05:05 AST 7869 H (15-37) U/L Troponin I (0.02-0.05) ng/mL Coagulation 01/15/18 01/15/18 01/15/18 Range/Units 02:00 03:30 11:45 PT 12.8 H 13.1 H (9.8-11.6) sec APTT 27.3 28.7 (23.4-31.7) sec 01/15/18 01/15/18 01/16/18 Range/Units 18:10 23:18 05:05 PT (9.8-11.6) sec APTT 95.2 H* D 79.7 H 69.0 H (23.4-31.7) sec CBC 01/14/18 01/15/18 01/16/18 Range/Units 21:36 03:30 05:05 WBC 20.3 H D 3.3 L D 5.3 (4.0-11.0) th/mm3 RBC 4.60 4.04 L 2.61 L (4.50-5.90) mil/mm3 Hgb 14.3 12.3 L D 8.1 L D (13.0-17.0) gm/dL Hct 42.5 37.1 L 23.0 L (39.0-51.0) % Plt Count 135 L 96 L 26 L D (150-450) th/mm3 Neut # (Auto) 18.4 H 2.8 5.0 (1.8-7.7) th/mm3 Lymph # (Auto) 1.1 0.4 L 0.2 L (1.0-4.8) th/mm3 Quay # (Auto) 0.7 0.0 0.1 (0.0-0.9) th/mm3 Eos # (Auto) 0.0 0.0 0.0 (0.0-0.4) th/mm3 Baso # (Auto) 0.0 0.0 0.0 (0.0-0.2) th/mm3 Comprehensive Metabolic Panel 01/14/18 01/15/18 01/16/18 Range/Units 21:36 03:30 05:05 Sodium 136 140 141 (136-145) meq/L Potassium 4.9 D 3.3 L D 3.0 L (3.5-5.1) meq/L Chloride 86 L D 96 L D 94 L (98-107) meq/L Carbon Dioxide 14.9 L 19.6 L 32.9 H D (21.0-32.0) meq/L BUN 17 26 H 39 H (7-18) mg/dL Creatinine 2.27 H 2.55 H 4.00 H (0.60-1.30) mg/dL Calcium 8.5 D 6.2 L* D 5.6 L* (8.5-10.1) mg/dL AST 617 H 2663 H 7869 H (15-37) U/L ALT 190 H 535 H 1511 H (12-78) U/L Alkaline Phosphatase 181 H 164 H 91 (45-117) U/L Total Protein 8.2 D 5.7 L D 5.9 L (6.4-8.2) g/dL Albumin 4.0 3.1 L D 3.5 (3.4-5.0) g/dL Intake and Output 01/15/18 01/16/18 01/16/18 22:59 06:59 14:59 Intake Total 3513 / 3513 1650 / 1650 Output Total 297 / 297 202 / 202 Balance 3216 / 3216 1448 / 1448 Intake: IV 3513 / 3513 1650 / 1650 Versed Inj 50 mg In 50 ml @ 2 50 / 50 MG/HR 2 mls/hr IV.CONT TITRATE PRN Rx#:[id number] Levophed Inj 16 MG In D5W Inj 23 / 23 234 ML @ 2 MCG/MIN 1.87 mls/hr IV.CONT TITRATE PRN Rx#: [id number] NS Inj 1,000 ML @ 84 mls/hr IV. 1000 / 1000 CONT .[id number] [facility] Rx#:[id number] Sodium Bicarbonate 8.4% Inj 150 1000 / 1000 1000 / 1000 MEQ In Sterile Water for Inj 850 ML @ 150 mls/hr IV.CONT . Q6H40M [facility] Rx#:[id number] Pitressin Inj 40 UNIT In D5W 90 / 90 Inj 98 ML @ 0.01 UNITS/MIN 1.5 mls/hr IV.CONT CONT [facility] Rx#: [id number] Alburx 5% Inj 500 ML @ 250 mls/ 1000 / 1000 500 / 500 hr IV.SIG Q6H [facility] Rx#:[id number] Diflucan 400 mg Premix Bag 200 200 / 200 ML @ 100 mls/hr IV.SIG Q24H [facility] Rx#:[id number] Zosyn 3.375 GM Premix 50 ML @ 50 / 50 50 / 50 100 mls/hr IV.SIG Q6H [facility] Rx#: [id number] Zosyn 4.5 GM Premix 4.5 gm In 100 / 100 100 ml @ 200 mls/hr IV.SIG Q6H [facility] Rx#:[id number] Flolan (30,000 ng/mL) Neb 100 100 / 100 ML In NS Inj 0 ML @ 5 mls/hr NEB Q8H [facility] Rx#:[id number] Output: Urine Amount (Catheter) 225 / 225 100 / 100 Indwelling Temp Sensing 225 / 225 100 / 100 Catheter Chest Tube Drainage 72 / 72 102 / 102 #1 Left Pleural #2 Right Pleural 62 / 62 92 / 92 Other: Date of Last Bowel Movement 01/15/18 01/15/18 # Incontinent Bowel Movements 1 Weight 121.1 kg - Imaging and Cardiology Imaging: Impressions Cervical Spine CT 01/14/18 21:58 CONCLUSION: 1. No acute fracture or malalignment. 2. Subcutaneous emphysema again noted as well as the known right pneumothorax. Chest X-Ray 01/14/18 21:58 CONCLUSION: 1. ET tube in good position. 2. Subcutaneous emphysema clavicular and chest wall region. 3. Probable pneumomediastinum. Head CT 01/14/18 21:58 CONCLUSION: 1. No acute hemorrhage or mass effect. 2. Stable area of encephalomalacia in the right lateral lobe. . Chest CT 01/14/18 22:54 CONCLUSION: 1. Bilateral pneumothoraces right greater than left. 2. Apparent pneumomediastinum with gas also dissecting into the right side of the retroperitoneum and anterior to the right kidney. 3. Linear collections of gas along the anterior inner abdominal wall which could represent collections of dissected free air. Subcutaneous emphysema is also noted. 4. Consolidation in both posterior lung bases and posterior hilar regions. 5. Small right pleural effusion. 6. Suboptimal study secondary to extensive motion artifact. This limits the sensitivity. These findings were called to the emergency room physician immediately after the study was performed. Abdomen X-Ray 01/15/18 00:00 CONCLUSION: 1. No free intraperitoneal air. 2. Residual small pneumothoraces with small chest tubes in place. Chest X-Ray 01/15/18 00:03 CONCLUSION: 1. Interval placement of bilateral small bore chest tubes. 2. Interval placement nasogastric tube and right subclavian central venous line. 3. There is consolidation again noted in both perihilar regions and retrocardiac region. 4. Small apparent residual right pneumothorax and pneumomediastinum again noted. Chest X-Ray 01/15/18 02:18 CONCLUSION: 1. Optimal examination mild motion artifact. 2. The right sided chest tube is not well visualized on the current study there is a left-sided chest tube appears unchanged. 3. Bilateral subcutaneous emphysema right greater than left with abnormal lucency projected over portions of both upper lobes concern for residual pneumothoraces. 4. Dense consolidation again noted in both lungs. Chest X-Ray 01/16/18 00:00 CONCLUSION: 1. [Interval decrease in pneumothoraces and pneumomediastinum apparent mild residual medial left upper lobe. 2. Diffuse airspace opacities remain. Assessment and Plan - Assessment (1) Elevated troponin Code(s): R74.8 - Abnormal levels of other serum enzymes Status: Acute Plan: Cardiac status stable. Hemodynamically improving. Echo technically very difficult, suggests normal left ventricular function. Rising renal indices. Patient currently poor candidate for invasive cardiac evaluation. Continue supportive care, aspirin, heparin drip. Initiate beta cristian therapy. - Plan Code Status: full code
[2018-01-16] MEDS ORDERED: Sod Chloride 0.9% Inj 1,000 ML IV.CONT SCH (08:00)
--- NOTE | 2018-01-16 08:15 | P.PNCC ---
Subjective Subjective Remarks/Hospital Course: 62-year-old male patient presents because he was found down by family, on evaluation by EMS he had notable seizures, and they had tried Versed without success, he was vomiting dark material. They tried to intubate him for airway protection, but were unable to intubate him. However, the seizures had stopped at that point. He was obtunded in the ER and was intubated by ED attending. Shortly after intubation patient lost his pulses and CPR was initiated. He has regained spontaneous circulation after 2 cycles of CPR and injections of epinephrine. There was significant subcutaneous emphysema noticed and the patient was rushed to CT for the CT of the head chest and abdomen that showed large bilateral pneumothoraces, as well as free air in peritoneal cavity. Bilateral chest tubes were placed immediately in the emergency department. The free air in the peritoneum with was discussed with the surgeon bulk station agent Dr. Jimenez. It was felt the air in abdominal cavity is more likely leak from the chest cavity from bilateral tension pneumothoraces and observation without emergent surgical intervention was recommended. The patient was transferred to ICU where he suffered another cardiac arrest. He has regained again spontaneous circulation post 2 cycles of CPR, 2 A of sodium bicarb and 2 A of epinephrine. The patient's was updated about the critical condition at the bedside. 01/15: Patient remains critically ill on max dose of norepinephrine, vasopressin , and epinephrine. His oxygenation overnight has somehow improved with Flolan infusion, however still requiring aggressive APRV mode of ventilation. Subjective 01/16: Off all vasopressors. Oxygenation stable. Switch from AP RV to NC VC. Will attempt MRI brain due to neglect and left sided weakness exam. CT thorax with oral contrast to rule out esophageal perforation. Recheck abdomen pelvis today. Remains on fluconazole, piperacillin/tazobactam and, vancomycin infectious disease. Heparin drip discontinued secondary to acute drop in platelets. Fibrinogen pending. Haptoglobin LDH and smear pending. Objective Vital Signs / I&O: Vital Signs 01/15/18 09:00 01/15/18 10:00 01/15/18 10:35 Temperature Pulse Rate 93 H 93 H Respiratory Rate 10 L 10 L 10 L Pulse Oximetry 99 99 99 01/15/18 10:39 01/15/18 11:00 01/15/18 12:00 Temperature 100.0 F H Pulse Rate 97 H 104 H 97 H Respiratory Rate 10 L 17 10 L Pulse Oximetry 79 L 97 01/15/18 12:23 01/15/18 13:00 01/15/18 14:00 Temperature Pulse Rate 92 H 94 H Respiratory Rate 8 L 10 L 10 L Pulse Oximetry 93 L 95 98 01/15/18 15:00 01/15/18 15:33 01/15/18 16:00 Temperature 99.5 F Pulse Rate 90 86 89 Respiratory Rate 10 L 10 L 10 L Pulse Oximetry 96 98 99 01/15/18 17:00 01/15/18 18:00 01/15/18 19:00 Temperature Pulse Rate 92 H 99 H 96 H Respiratory Rate 10 L 10 L 10 L Pulse Oximetry 96 97 97 01/15/18 20:00 01/15/18 20:37 01/15/18 21:00 Temperature 99.5 F Pulse Rate 94 H 93 H 93 H Respiratory Rate 10 L 10 L 10 L Pulse Oximetry 96 97 97 01/15/18 22:00 01/15/18 23:00 01/16/18 00:00 Temperature 99.5 F Pulse Rate 95 H 91 H 85 Respiratory Rate 10 L 10 L 10 L Pulse Oximetry 98 98 98 01/16/18 00:48 01/16/18 01:00 01/16/18 02:00 Temperature Pulse Rate 89 90 Respiratory Rate 10 L 10 L 10 L Pulse Oximetry 99 98 97 01/16/18 03:00 01/16/18 04:00 01/16/18 04:15 Temperature 98.6 F Pulse Rate 93 H 88 Respiratory Rate 10 L 10 L 10 L Pulse Oximetry 97 98 98 01/16/18 04:18 01/16/18 05:00 01/16/18 06:00 Temperature Pulse Rate 88 89 83 Respiratory Rate 13 10 L 10 L Pulse Oximetry 98 97 Intake & Output 01/15/18 01/16/18 01/16/18 18:59 06:59 18:59 Intake Total 7408 / 7408 3250 / 3250 Output Total 297 / 297 202 / 202 Balance 7111 / 7111 3048 / 3048 Weight 121.1 kg Intake: IV 7408 / 7408 3250 / 3250 Versed Inj 50 mg In 50 ml @ 2 50 / 50 MG/HR 2 mls/hr IV.CONT TITRATE PRN Rx#:[id number] Levophed Inj 16 MG In D5W Inj 23 / 23 234 ML @ 2 MCG/MIN 1.87 mls/hr IV.CONT TITRATE PRN Rx#: [id number] Diprivan 1000 mg/100 ml Inj 1, 5 / 5 000 mg In 100 ml @ 5 MCG/KG/MIN 2.994 mls/hr IV.CONT TITRATE PRN Rx#:[id number] NS Inj 1,000 ML @ 84 mls/hr IV. 1000 / 1000 CONT .[id number] [facility] Rx#:[id number] Sodium Bicarbonate 8.4% Inj 150 1999 / 1999 1999 / 1999 MEQ In Sterile Water for Inj 850 ML @ 150 mls/hr IV.CONT . Q6H40M [facility] Rx#:[id number] Pitressin Inj 40 UNIT In D5W 90 / 90 Inj 98 ML @ 0.01 UNITS/MIN 1.5 mls/hr IV.CONT CONT [facility] Rx#: [id number] Alburx 5% Inj 500 ML @ 250 mls/ 1000 / 1000 1000 / 1000 hr IV.SIG Q6H [facility] Rx#:[id number] Maxipime Inj 2,000 MG In NS Inj 100 / 100 100 ML @ 200 mls/hr IV.SIG Q12H [facility] Rx#:[id number] Diflucan 400 mg Premix Bag 200 200 / 200 ML @ 100 mls/hr IV.SIG Q24H [facility] Rx#:[id number] LR 1000 mL Inj 1,000 ML @ Wide 1999 / 1999 Open IV.SIG BOLUS ONE Rx#: [id number] Levophed-Dextrose 4 mg/250 ml 250 / 250 Drip 4 mg In 250 ml @ 2 MCG/MIN 7.5 mls/hr IV.SIG TITRATE PRN Rx#:[id number] Zosyn 3.375 GM Premix 50 ML @ 100 / 100 100 mls/hr IV.SIG Q6H [facility] Rx#: [id number] Zosyn 4.5 GM Premix 4.5 gm In 100 / 100 100 ml @ 200 mls/hr IV.SIG Q6H [facility] Rx#:[id number] Vancomycin Inj 2,000 MG In NS 540 / 540 Inj 500 ML @ 270 mls/hr IV.SIG ONCE ONE Rx#:[id number] Flolan (30,000 ng/mL) Neb 100 100 / 100 100 / 100 ML In NS Inj 0 ML @ 5 mls/hr NEB Q8H [facility] Rx#:[id number] Output: Urine Amount (Catheter) 225 / 225 100 / 100 Indwelling Temp Sensing 225 / 225 100 / 100 Catheter Chest Tube Drainage 72 / 72 102 / 102 #1 Left Pleural #2 Right Pleural 62 / 62 92 / 92 Other: Date of Last Bowel Movement 01/15/18 01/15/18 # Incontinent Bowel Movements 1 Result Diagrams: 01/16/18 05:05 01/16/18 05:05 Imaging: Cervical Spine CT 01/14/18 21:58 CONCLUSION: 1. No acute fracture or malalignment. 2. Subcutaneous emphysema again noted as well as the known right pneumothorax. Chest X-Ray 01/14/18 21:58 CONCLUSION: 1. ET tube in good position. 2. Subcutaneous emphysema clavicular and chest wall region. 3. Probable pneumomediastinum. Head CT 01/14/18 21:58 CONCLUSION: 1. No acute hemorrhage or mass effect. 2. Stable area of encephalomalacia in the right lateral lobe. . Chest CT 01/14/18 22:54 CONCLUSION: 1. Bilateral pneumothoraces right greater than left. 2. Apparent pneumomediastinum with gas also dissecting into the right side of the retroperitoneum and anterior to the right kidney. 3. Linear collections of gas along the anterior inner abdominal wall which could represent collections of dissected free air. Subcutaneous emphysema is also noted. 4. Consolidation in both posterior lung bases and posterior hilar regions. 5. Small right pleural effusion. 6. Suboptimal study secondary to extensive motion artifact. This limits the sensitivity. These findings were called to the emergency room physician immediately after the study was performed. Abdomen X-Ray 01/15/18 00:00 CONCLUSION: 1. No free intraperitoneal air. 2. Residual small pneumothoraces with small chest tubes in place. Chest X-Ray 01/15/18 00:03 CONCLUSION: 1. Interval placement of bilateral small bore chest tubes. 2. Interval placement nasogastric tube and right subclavian central venous line. 3. There is consolidation again noted in both perihilar regions and retrocardiac region. 4. Small apparent residual right pneumothorax and pneumomediastinum again noted. Chest X-Ray 01/15/18 02:18 CONCLUSION: 1. Optimal examination mild motion artifact. 2. The right sided chest tube is not well visualized on the current study there is a left-sided chest tube appears unchanged. 3. Bilateral subcutaneous emphysema right greater than left with abnormal lucency projected over portions of both upper lobes concern for residual pneumothoraces. 4. Dense consolidation again noted in both lungs. Chest X-Ray 01/16/18 00:00 CONCLUSION: 1. [Interval decrease in pneumothoraces and pneumomediastinum apparent mild residual medial left upper lobe. 2. Diffuse airspace opacities remain. Objective Remarks: GENERAL: 62-year-old male currently orotracheally treated with bilateral chest tubes critically ill SKIN: Warm and dry. No rash HEAD: Atraumatic. Normocephalic. EYES: Pupils equal and round. No scleral icterus. No injection or drainage. ENT: No nasal bleeding or discharge. Mucous membranes pink and moist. NECK: Trachea midline. No JVD. CARDIOVASCULAR: Regular rate and rhythm with ectopy. S1, S2. No murmur RESPIRATORY: Diminished breath sounds in the bases bilaterally. Crepitus improved subcutaneous emphysema. Bilateral pigtail chest tubes are in place at at -40 cmH2O GASTROINTESTINAL: Abdomen soft, non-tender, nondistended. Hypoactive bowel sounds appreciated. MUSCULOSKELETAL: Extremities without without significant peripheral edema. No obvious deformities. NEUROLOGICAL: Currently sedated on gadolinium and fentanyl drips. Overnight, overnight general office clerk stated neglect and left upper extremity weakness. Went about evolving CVA versus bleed. Assessment and Plan - Assessment and Plan Plan: Neuro/Psych: Bipolar disorder History of right parietal CVA 2009 EtOH abuse Acute seizure Patient is currently on midazolam drip at 2 mg an hour and fentanyl drip at 50 mcg/h for sedation/analgesia while intubated Goal of RA SS -[address] brain admission revealed right parietal region encephalomalacia. EEG 01/15 revealed no epileptic activity. Slowing MRI brain ordered stat this a.m. if able. Holding home medication gabapentin 300 mg twice daily and ketamine 50 mg daily and sertraline 50 mg daily Vitamin bag daily times 3 days. Monitor for DTs CV: Non-STEMI Elevated troponin Severe shock resolving History of essential hypertension History of hyperlipidemia Evaluated by cardiology/Dr. Gomez Started on carvedilol 3.2 mg twice daily Holding valsartan 80 mg daily in light of acute kidney injury. Holding atorvastatin 20 mg daily in light of acute liver injury. 2D echocardiogram revealed EF 55-60%. Mild LVH. PAP 31 mmHg. Currently normal sinus rhythm no ectopy. Flowtrack reveals cardiac index around 2.4. Resp: Acute respiratory failure Bilateral pneumothoraces/pneumomediastinum Gastroesophageal reflux disease on pantoprazole at home Switch from AP RV to NC VC. Rate of 18. Tidal volume around 550. I time 1.05. PEEP of 10. FiO2 of 60%. Remains on epoprostenol aerosolized Albuterol/ipratropium aerosols every 4 hours albuterol every 2 hours as needed dyspnea CT thorax ordered for today. Chest x-ray today revealed improved subcutaneous emphysema/improvement of bilateral pneumothoraces. Maintain chest tubes at -40 cmH2O Monitor output On methylprednisolone succinate 40 mg IV every 8 hours GI: Elevated LFTs Pneumoperitoneum with right retroperitoneal gas/gas around the right kidney CT abdomen/pelvis revealed gas in the anterior mediastinum/right retrocrural peritoneal gas/stranding right kidney. In ED this case was discussed with Dr. Jimenez/on-call physician. Believe this was secondary to bilateral pneumothoraces. No surgical intervention. Check lactate and CPK now Recheck CT abdomen/pelvis now. Will likely initiate tube feeding if no signs of esophageal perforation on CT with contrast of thorax Would recommend Nepro in light of acute kidney injury Pantoprazole for GI prophylaxis Docusate sodium/senna 1 tablet twice daily for bowel regimen Ultrasound tests again revealed severe hepatic steatosis likely EtOH cirrhosis/ ischemia/CPK elevation. Check ammonia level : Og catheter has been placed for accurate I's and O's in a critically ill patient Endo: History of diabetes mellitus History of hypothyroidism Glimepiride 2 mg twice daily is currently on hold. Sliding scale insulin regular insulin to maintain euglycemia Restart levothyroxine 88 mcg daily. Check TSH in a.m. Renal: Acute kidney injury Creatinine is currently around 4 with minimal urine output. Nephrology consultation ordered Renal ultrasound ordered to rule out hydronephrosis Urine eosinophils, sodium and creatinine ordered. Avoid nephrotoxic medication Will likely need hemodialysis Heme: Normocytic anemia Acute thrombocytopenia Unlikely hit secondary to timeframe. Check haptoglobin/LDH and peripheral smear We will discontinue heparin drip in light of significant thrombocytopenia ID: Currently on piperacillin/tazobactam, vancomycin and fluconazole per infectious disease. Blood cultures no growth to date FEN: Acute hypocalcemia Replace electrolytes as clinically indicated 2 g calcium chloride IV x1 now. Discontinue bicarbonate drip due to elevated bicarbonate on BMP MSK: Physical therapy evaluate and treat Access -Right subclavian CVL day #3 placed 11/12 -Right brachial arterial line day #2 placed / Prophylaxis -GI-pantoprazole -DVT-SCD/holding pharmacological prophylaxis in light of severe thrombocytopenia Critical care time 35 minutes Code Status: Full code Discussed Condition With: on phone. Updated on care plan for this a.m. She will be at 1 PM and will discuss later. Care plan discussed questions answered.
[2018-01-16 08:28] LABS: Lymphocytes 11 % (9-44); Metamyelocytes 2 % (0-1); Monocytes 1 % (0-8); Myelocytes 1 % (0-0); Platelet Morphology Normal (Normal)
[2018-01-16] MEDS ORDERED: Calcium Chloride Inj 2 GM in Sodium Chlor 0.9% Inj 100 ML IV.SIG ONE (08:30)
[2018-01-16 09:25] LABS: Troponin I 2.37 ng/mL (0.02-0.05)
[2018-01-16] MEDS: Chlorhexidine 0.12% Oral Kit 15 ML UDC OROPHARYNG SCH ×2 (09:28→19:49)
[2018-01-16] MEDS: Artificial Tears Opth Drops 15 ML Bottle EACH EYE SCH ×2 (09:28→15:59)
[2018-01-16] MEDS: Senna/Docusate Sodium 8.6/50 MG Tablet PO SCH ×2 (09:33→21:41)
[2018-01-16] MEDS: Levothyroxine 88 MCG Tablet PO SCH (09:57)
[2018-01-16] MEDS: Multivitamin Inj 10 ML, Thiamine Inj 100 MG, Folic Acid Inj 1 MG in Sodium Chlor 0.9% I... IV.SIG SCH (10:09)
--- NOTE | 2018-01-16 10:17 | US ---
EXAM DATE: 01/16/2018 10:13 AM EST AGE/SEX: 62 years / Male INDICATIONS: Increased BUN/Creatinine. CLINICAL DATA: This is the patient's initial encounter. Patient reports that signs and symptoms have been present for 1 day and indicates a pain score of Nonresponsive. MEDICAL/SURGICAL HISTORY: Diabetes. Hypertension. Anxiety. CVA. ETOH abuse. Cardiac arrest. N one. Bilateral chest tubes. COMPARISON: [facility] – [place], [place] ABDOMEN - GALLBLADDER, 01/14/2018. . MEASUREMENTS: Right Kidney:__12.4 x 6.0 x 5.7 cm Left Kidney:__11.7 x 6.5 x 6.2 cm FINDINGS: Right Kidney: Normal echotexture and cortical thickness. No mass or hydronephrosis. Left Kidney: Normal echotexture and cortical thickness. No mass or hydronephrosis. Bladder: Og catheter is present. Bladder decompressed. Other: Trace fluid is seen in the abdomen. CONCLUSION: 1. Trace ascites. 2. Negative renal ultrasound Electronically signed by: Darinel Judd MD 01/16/2018 10:16 AM EST
[2018-01-16] MEDS ORDERED: Propofol 1000 mg/100 ml Inj 1,000 MG/100 ML BOTTLE IV.CONT PRN (10:42)
--- NOTE | 2018-01-16 11:43 | CT ---
EXAM DATE: 01/16/2018 11:30 AM EST AGE/SEX: 62 years / Male INDICATIONS: Perforation CLINICAL DATA: This is the patient's initial encounter. Patient reports that signs and symptoms have been present for 1 day and indicates a pain score of Nonresponsive. MEDICAL/SURGICAL HISTORY: Diabetes. Cerebrovascular disease. Hypertension. None. RADIATION DOSE: 9.59 CTDI (mGy) ; Combined studies COMPARISON: [facility] [place] & PELVIS W CONTRAST, 01/14/2018. . TECHNIQUE: Multiple contiguous axial images were obtained through the abdomen. Images were obtained using multiple row detector helical technique. Using automated exposure control and adjustment of the mA and/or kV according to patient size, radiation dose was kept as low as reasonably achievable to o btain optimal diagnostic quality images. DICOM format image data is available electronically for rev iew and comparison. FINDINGS: Significant consolidative changes are seen in both lung bases with air bronchograms. Small bore chest tube is in place on the right. Small bore chest tubes in place on the left with trace pneumothorax. A small bore chest tubes are above the areas of consolidation. Moderate fatty replacement in the liver. Gallbladder prominent Minimal free intraperitoneal air is present in the upper abdomen. Spleen and pancreas appear normal Right and left adrenals unremarkable Cecum, ascending, transverse and descending colon are unremarkable. Very minimal induration in the abdominal mesentery, nonspecific. In the pelvis there are calcifications present in the seminal vesicles. Bladder is decompressed by a Og. There is no evidence for colitis. CONCLUSION: 1. Minimal free intraperitoneal air. I don't see etiology for such 2. Dense consolidation both lung bases with small bilateral chest tubes 3. Trace pneumothorax on the left. No pneumothorax on the right. 4. Moderate fatty replacement to the liver with prominent gallbladder Electronically signed by: Darinel Judd MD 01/16/2018 11:42 AM EST
--- NOTE | 2018-01-16 11:50 | CT ---
EXAM DATE: 01/16/2018 11:38 AM EST AGE/SEX: 62 years / Male INDICATIONS: Esophageal perforation CLINICAL DATA: This is the patient's initial encounter. Patient reports that signs and symptoms have been present for 1 day and indicates a pain score of Nonresponsive. MEDICAL/SURGICAL HISTORY: Diabetes. Cerebrovascular disease. Hypertension. None. RADIATION DOSE: 9.59 CTDI (mGy) ; Combined studies COMPARISON: [facility] – [place], [place] CHEST W/O CONTRAST, 01/14/2018. . TECHNIQUE: Multiple contiguous axial images were obtained through the chest without contrast. Image s were obtained in suspended respiration using multiple row detector helical technique. Using automa mitchel exposure control and adjustment of the mA and/or kV according to patient size, radiation dose was kept as low as reasonably achievable to obtain optimal diagnostic quality images. DICOM format imag e data is available electronically for review and comparison. FINDINGS: Dense consolidative changes are seen in both lung bases with small bilateral chest tubes. Trace pneum othorax is present on the left. There is no significant fluid present. Abundant fat seen in the anterior mediastinum. There is minimal dilatation of the ascending aorta whe n compared to the descending with moderate atherosclerotic vascular calcifications noted. There is no axillary adenopathy. There is no radiographically significant mediastinal adenopathy Again seen is a fatty replacement to the liver and trace free intraperitoneal air described in detail the CT scan of the abdomen. . CONCLUSION: 1. Dense consolidation in both lung bases small bore chest tubes evident. 2. Trace pneumothorax on the left 3. No significant fluid. Electronically signed by: Darinel Judd MD 01/16/2018 11:48 AM EST
--- NOTE | 2018-01-16 12:26 | MR ---
EXAM DATE: 01/16/2018 12:12 PM EST AGE/SEX: 62 years / Male INDICATIONS: Left sided weakness. Found down at home. CLINICAL DATA: This is the patient's subsequent encounter. Patient reports that signs and symptoms h ave been present for 2 days and indicates a pain score of Nonresponsive. MEDICAL/SURGICAL HISTORY: Hypertension. Diabetes mellitus type II. CVA None. COMPARISON: . TECHNIQUE: Multiplanar, multisequence examination of the brain was performed without contrast. 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 Minimal hemoside rosis is present in the sole infarct. Periventricular white matter changes are seen on the left. Vent ricular size is appropriate. There are no extra-axial fluid collections appreciated. White Matter: minimal periventricular white matter changes Posterior Fossa: The cerebellum and brainstem are intact. The 4th ventricle is midline. The cerebe llopontine angle is unremarkable. The cerebellar tonsils are normal in position. Diffusion Imaging: No focal areas of restricted diffusion are seen. No evidence of acute infarction . Extracranial: The visualized portions of the orbits and paranasal sinuses are unremarkable. CONCLUSION: 1. 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 2. There is no restricted diffusion to suggest extension of or new infarct. Electronically signed by: Darinel Judd MD 01/16/2018 12:25 PM EST
[2018-01-16] MEDS: fentaNYL 10 mcg/mL Premix Drip 2,500 MCG/250 ML BAG IV.SIG PRN ×2 (12:42→19:52)
[2018-01-16] MEDS: Midazolam 50 MG/50 ML Inj 50 MG/50 ML BAG IV.CONT PRN ×2 (12:43→22:24)
--- NOTE | 2018-01-16 12:50 | ECG ---
Date Performed: 01/15/2018 Time Performed: 09:41:10 PTAGE: 62 years EKG: Sinus rhythm PROLONGED QT INTERVAL ABNORMAL ECG PREVIOUS TRACING : 01/14/2018 22.36 DOCTOR: Tariq Wyatt Interpretating Date/Time 01/16/2018 12:45:22
[2018-01-16] MEDS ORDERED: Vancomycin Inj 1,500 MG in Sodium Chlor 0.9% Inj 500 ML IV.SIG ONE (14:00)
[2018-01-16 15:24] LABS: Hematocrit 22.8 % (39.0-51.0); Hemoglobin 7.8 gm/dL (13.0-17.0)
--- NOTE | 2018-01-16 16:39 | P.CONNP ---
<Fabiola Macdonald - Last Filed: 01/16/18 16:58> History of Present Illness Service: Nephrology Consult date: 01/16/18 Requesting Physician: Blake Berger Reason for Consult: SHERITA Primary Care Provider: UNKNOWN History of Present Illness: The patient is a 62 yo [place] male who was brought into this facility via [facility] on after being found at home by his in seizure. Uncertain how long he was seizing prior to her arrival. He was given Versed in transport which stopped seizure activity. In the ED, a code blue was called and resuscitation efforts were started and ROSC achieved after 2 cycles of CPR and epinephrine. After CPR, he was found to have subcutaneous emphysema and sent for CT of his chest revealing bilateral tension PTX with free air in peritoneal cavity. At that point, he had chest tubes placed bilaterally. After stabilization, he was trasnferred to ICU where he went into cardiac arrest again with ROSC after 2 cycles of CPR, bicarb, and epinephrine. He remains in ICU at consult. Was on maximal pressor support 01/15 and fortunately off all pressors as of 01/16. Remains intubated and sedated. We have been consulted for SHERITA and likely need for dialytic intervention. SCr on arrival was 2.27 with eGFR 29 that has deteriorated to 4.00 and eGFR 15 at consult. His UOP has been marginal and is at a positive fluid balance of 8L. at bedside who reports he has been an alcoholic for 20 years and drinks about 1L of vodka daily. Was admitted to this facility on 10/31 thru 11/04 for EtOH withdrawal and SI with potential overdose of Seroquel. Appears to have had multiple admissions in the past for EtOH related issues. Prior renal functions within normal range with baseline SCr 0.8-1.0. Review of Systems unobtainable due to mental status PMFSH - History History Provided By: Patient - Medical History Medical History: Medical History (Last Reviewed 01/15/18 @ 12:21 by Sakina Murray MD) Anxiety CVA (cerebral vascular accident) Diabetes ETOH abuse Hypertension No significant past surgical history - Family History Family History: Family History (Last Reviewed 01/15/18 @ 12:21 by Sakina Murray MD) Mother Kidney carcinoma Father CAD (coronary artery disease) - Tobacco History Second Hand Smoke Exposure: Yes Smoking Status: Unknown if ever smoked Tobacco Type: Cigarettes - Alcohol History How Often Do You Have a Drink Containing Alcohol: Unable to Obtain (but per has been an alcoholic for 20 years and drinks a liter of vodka daily) - Substance Use History Substance History: Unable to Obtain - Travel History Recent Travel in the [place] Within the Last 8 Weeks: No Recent Travel Out of the Country Within the Last 8 Weeks: No - Immunization History Tetanus Immunization: Unable to Assess Medications and Allergies Allergies Allergy/AdvReac Type Severity Reaction Status Date / Time erythromycin base Allergy Severe Hives Verified 01/14/18 03:00 penicillin G Allergy Severe Hives Verified 01/14/18 03:00 Active Medications: Active Medications Al Hydroxide/Mg Hydroxide (Milk Of Orion Liq) 30 ml PO Q12H PRN PRN Reason: Mild Constipation Albuterol (Duoneb Neb (Tonja)) 1 ampul NEB Q4HR NEB [facility] Last Admin: 01/16/18 15:28 Dose: 1 ampul Albuterol (Albuterol Neb (Prn)) 2.5 mg NEB Q2HR NEB PRN PRN Reason: DYSPNEA Artificial Tears (Tears Naturale Opth Drops) 1 drop EACH EYE Q8H [facility] Last Admin: 01/16/18 15:59 Dose: 1 drop Aspirin (Aspirin Chew) 81 mg PO DAILY [facility] Last Admin: 01/16/18 09:32 Dose: Not Given Bisacodyl (Dulcolax Supp) 10 mg RECTAL DAILY PRN PRN Reason: SEVERE CONSITIPATION Carvedilol (Coreg) 3.125 mg PO BID [facility] Last Admin: 01/16/18 09:32 Dose: 3.125 mg Chlorhexidine Gluconate (Peridex 0.12% Oral Kit) 15 ml OROPHARYNG BID@0800, 2000 [facility] Last Admin: 01/16/18 09:28 Dose: 15 ml Chlorhexidine Gluconate (Chlorhexidine 2% Cloth) 3 pack TOPICAL DAILY@0400 [facility] Stop: 01/20/18 03:59 Last Admin: 01/16/18 04:49 Dose: 3 pack Chlorhexidine Gluconate (Chlorhexidine 2% Cloth) 3 pack TOPICAL DAILY@0400 PRN PRN Reason: Extra cloth needed Stop: 01/20/18 03:59 Dextrose (D50w Vial) 50 ml IV.PUSH UNSCH PRN PRN Reason: PER HYPOGLYCEMIA PROTOCOL Glucagon (Glucagon Inj) 1 mg OTHER PRN PRN PRN Reason: for Hypoglycemia Protocol Fentanyl (Fentanyl 10 Mcg/Ml Premix Drip) 2,500 mcg in 250 mls @ 5 mls/hr IV.SIG TITRATE PRN; Protocol PRN Reason: Per Protocol Last Admin: 01/16/18 12:42 Dose: 250 mcg/hr, 25 mls/hr Midazolam HCl (Versed Inj) 50 mg in 50 mls @ 2 mls/hr IV.CONT TITRATE PRN; Protocol PRN Reason: Per Protocol Last Admin: 01/16/18 12:43 Dose: 6 mg/hr, 6 mls/hr Epinephrine HCl 2 mg/ Dextrose 250 mls @ 22.5 mls/hr IV.CONT TITRATE PRN; Protocol PRN Reason: Per Protocol Epoprostenol Sodium 100 ml/ (Sodium Chloride) 100 mls @ 5 mls/hr NEB Q8H [facility] Stop: 01/16/18 20:59 Last Admin: 01/16/18 12:40 Dose: 5 mls/hr Norepinephrine Bitartrate 16 (mg/ Dextrose) 250 mls @ 1.87 mls/hr IV.CONT TITRATE PRN; Protocol PRN Reason: See Protocol Last Titration: 01/15/18 18:23 Dose: Infused Fluconazole (Diflucan 400 Mg Premix Bag) 200 mls @ 100 mls/hr IV.SIG Q24H [facility] Last Infusion: 01/16/18 16:24 Dose: Infused Piperacillin/Tazobactam/Dextrose (Zosyn 3.375 Gm Premix) 50 mls @ 100 mls/hr IV.SIG Q6H [facility] Last Infusion: 01/16/18 16:24 Dose: Infused Multivitamins 10 ml/ Thiamine HCl 100 mg/ Folic Acid 1 mg/Sodium Chloride 511.2 mls @ 125 mls/hr IV.SIG Q24H [facility] Stop: 01/18/18 13:06 Last Infusion: 01/16/18 16:24 Dose: Infused Sodium Chloride (Ns Inj) 1,000 mls @ 84 mls/hr IV.CONT .[id number] [facility] Last Admin: 01/16/18 09:27 Dose: 84 mls/hr Propofol (Diprivan 1000 Mg/100 Ml Inj) 1,000 mg in 100 mls @ 3.633 mls/hr IV.CONT TITRATE PRN; Protocol PRN Reason: Per Protocol Levetiracetam 500 mg/ Sodium (Chloride) 105 mls @ 400 mls/hr IV.SIG Q12H [facility] Last Infusion: 01/16/18 16:24 Dose: Infused Epoprostenol Sodium 80 ml/ (Sodium Chloride) 100 mls @ 5 mls/hr NEB Q8H [facility] Stop: 01/17/18 04:59 Epoprostenol Sodium 60 ml/ (Sodium Chloride) 100 mls @ 5 mls/hr NEB Q8H [facility] Stop: 01/17/18 12:59 Epoprostenol Sodium 40 ml/ (Sodium Chloride) 100 mls @ 5 mls/hr NEB Q8H [facility] Stop: 01/17/18 20:59 Epoprostenol Sodium 20 ml/ (Sodium Chloride) 100 mls @ 5 mls/hr NEB Q8H [facility] Stop: 01/18/18 04:59 Insulin Human Regular (Novolin R Correctional Sugar Inj) 0 units SQ Q6HR [facility]; Protocol Last Admin: 01/16/18 13:27 Dose: Not Given Lactulose (Lactulose Liq) 30 ml PO DAILY PRN PRN Reason: SEVERE CONSITIPATION Levothyroxine Sodium (Synthroid) 88 mcg PO DAILY@0600 [facility] Last Admin: 01/16/18 09:57 Dose: 88 mcg Methylprednisolone Sodium Succinate (Solumedrol Inj) 40 mg IV.PUSH Q8H [facility] Last Admin: 01/16/18 09:33 Dose: 40 mg Miscellaneous Medication () 1 each OROPHARYNG 0000,0400,1200,1600 [facility] Last Admin: 01/16/18 15:58 Dose: 1 each Morphine Sulfate (Morphine Inj) 2 mg IV.PUSH Q2H PRN PRN Reason: PAIN SCALE 6 TO 10 Ondansetron HCl (Zofran Inj) 4 mg IV.PUSH Q6H PRN PRN Reason: NAUSEA OR VOMITING Last Admin: 01/15/18 05:38 Dose: 4 mg Pantoprazole Sodium (Protonix Inj) 40 mg IV.PUSH Q12H [facility] Last Admin: 01/16/18 13:31 Dose: 40 mg Pharmacy Profile Note (Vancomycin Consult Pharmacy) 1 each OTHER UNSCH PRN PRN Reason: Pharmacy to dose Senna/Docusate Sodium (Ayleen-Colace) 1 tab PO BID [facility] Last Admin: 01/16/18 09:33 Dose: 1 tab Sennosides (Senokot) 17.2 mg PO Q12H PRN PRN Reason: Moderate Constipation Sodium Chloride (Ns Flush) 2 ml IV.FLUSH BID [facility] Last Admin: 01/16/18 09:33 Dose: 2 ml Sodium Chloride (Ns Flush) 2 ml IV.FLUSH PRN PRN PRN Reason: FLUSH AFTER USING IV ACCESS Last Admin: 01/16/18 09:33 Dose: 2 ml Terbutaline Sulfate (Brethine Inj) 1 mg SQ UNSCH PRN PRN Reason: For Extravasation Exam Vital signs: Vital Signs 01/15/18 17:00 01/15/18 18:00 01/15/18 19:00 Temperature Pulse Rate 92 H 99 H 96 H Respiratory Rate 10 L 10 L 10 L Blood Pressure Pulse Oximetry 96 97 97 01/15/18 20:00 01/15/18 20:37 01/15/18 21:00 Temperature 99.5 F Pulse Rate 94 H 93 H 93 H Respiratory Rate 10 L 10 L 10 L Blood Pressure Pulse Oximetry 96 97 97 01/15/18 22:00 01/15/18 23:00 01/16/18 00:00 Temperature 99.5 F Pulse Rate 95 H 91 H 85 Respiratory Rate 10 L 10 L 10 L Blood Pressure Pulse Oximetry 98 98 98 01/16/18 00:48 01/16/18 01:00 01/16/18 02:00 Temperature Pulse Rate 89 90 Respiratory Rate 10 L 10 L 10 L Blood Pressure Pulse Oximetry 99 98 97 01/16/18 03:00 01/16/18 04:00 01/16/18 04:15 Temperature 98.6 F Pulse Rate 93 H 88 Respiratory Rate 10 L 10 L 10 L Blood Pressure Pulse Oximetry 97 98 98 01/16/18 04:18 01/16/18 05:00 01/16/18 06:00 Temperature Pulse Rate 88 89 83 Respiratory Rate 13 10 L 10 L Blood Pressure Pulse Oximetry 98 97 01/16/18 07:00 01/16/18 08:00 01/16/18 08:05 Temperature 99.2 F Pulse Rate 80 83 83 Respiratory Rate 18 18 18 Blood Pressure Pulse Oximetry 95 97 01/16/18 09:00 01/16/18 09:51 01/16/18 10:00 Temperature Pulse Rate 86 81 78 Respiratory Rate 18 18 18 Blood Pressure 147/83 H 144/78 H Pulse Oximetry 98 98 99 01/16/18 10:30 01/16/18 11:00 01/16/18 11:31 Temperature Pulse Rate 104 H 84 Respiratory Rate 17 16 Blood Pressure Pulse Oximetry 99 95 98 01/16/18 11:36 01/16/18 12:00 01/16/18 12:03 Temperature 98.8 F Pulse Rate 90 Respiratory Rate 10 L Blood Pressure 152/93 H 155/88 H Pulse Oximetry 99 01/16/18 12:10 01/16/18 12:15 01/16/18 12:20 Temperature Pulse Rate 90 95 H 92 H Respiratory Rate 13 26 H 18 Blood Pressure 159/96 H 153/91 H 184/93 H Pulse Oximetry 100 100 100 01/16/18 12:22 01/16/18 12:25 01/16/18 12:26 Temperature Pulse Rate 81 81 Respiratory Rate 19 18 Blood Pressure 139/81 Pulse Oximetry 100 100 98 01/16/18 13:00 01/16/18 14:00 01/16/18 15:00 Temperature Pulse Rate 74 72 75 Respiratory Rate 18 18 18 Blood Pressure 134/86 134/85 Pulse Oximetry 98 100 01/16/18 15:29 Temperature Pulse Rate Respiratory Rate 19 Blood Pressure Pulse Oximetry 98 Intake & Output 01/15/18 01/16/18 01/16/18 18:59 06:59 18:59 Intake Total 7408 / 7408 3250 / 3250 3353.5 / 3353.5 Output Total 297 / 297 202 / 202 Balance 7111 / 7111 3048 / 3048 3353.5 / 3353.5 Weight 121.1 kg Intake: IV 7408 / 7408 3250 / 3250 3353.5 / 3353.5 Heparin/D5W 25,000 U/250 mL 25, 66.3 / 66.3 000 unit In 250 ml @ 1,000 UNITS/HR 10 mls/hr IV.CONT TITRATE PRN Rx#:[id number] Versed Inj 50 mg In 50 ml @ 2 50 / 50 50 / 50 MG/HR 2 mls/hr IV.CONT TITRATE PRN Rx#:[id number] Levophed Inj 16 MG In D5W Inj 234 ML @ 2 MCG/MIN 1.87 mls/hr IV.CONT TITRATE PRN Rx#: [id number] Diprivan 1000 mg/100 ml Inj 1, 5 / 5 000 mg In 100 ml @ 5 MCG/KG/MIN 2.994 mls/hr IV.CONT TITRATE PRN Rx#:[id number] NS Inj 1,000 ML @ 84 mls/hr IV. 1000 / 1000 880 / 880 CONT .[id number] [facility] Rx#:[id number] Sodium Bicarbonate 8.4% Inj 150 1999 / 1999 1999 / 1999 570 / 570 MEQ In Sterile Water for Inj 850 ML @ 150 mls/hr IV.CONT . Q6H40M [facility] Rx#:[id number] Pitressin Inj 40 UNIT In D5W 90 / 90 Inj 98 ML @ 0.01 UNITS/MIN 1.5 mls/hr IV.CONT CONT [facility] Rx#: [id number] Alburx 5% Inj 500 ML @ 250 mls/ 1000 / 1000 1000 / 1000 500 / 500 hr IV.SIG Q6H [facility] Rx#:[id number] Calcium Chloride Inj 2 GM In NS 120 / 120 Inj 100 ML @ 120 mls/hr IV.SIG ONCE ONE Rx#:[id number] Maxipime Inj 2,000 MG In NS Inj 100 / 100 100 ML @ 200 mls/hr IV.SIG Q12H [facility] Rx#:[id number] Diflucan 400 mg Premix Bag 200 200 / 200 200 / 200 ML @ 100 mls/hr IV.SIG Q24H [facility] Rx#:[id number] LR 1000 mL Inj 1,000 ML @ Wide 1999 / 1999 Open IV.SIG BOLUS ONE Rx#: [id number] MVI-12 Inj 10 ML Thiamine Inj 511.2 / 511.2 100 MG Folvite Inj 1 MG In NS Inj 500 ML @ 125 mls/hr IV.SIG Q24H [facility] Rx#:[id number] Levophed-Dextrose 4 mg/250 ml 250 / 250 Drip 4 mg In 250 ml @ 2 MCG/MIN 7.5 mls/hr IV.SIG TITRATE PRN Rx#:[id number] Zosyn 3.375 GM Premix 50 ML @ 100 / 100 100 / 100 100 mls/hr IV.SIG Q6H [facility] Rx#: [id number] Zosyn 4.5 GM Premix 4.5 gm In 100 / 100 100 ml @ 200 mls/hr IV.SIG Q6H [facility] Rx#:[id number] Vancomycin Inj 2,000 MG In NS 540 / 540 Inj 500 ML @ 270 mls/hr IV.SIG ONCE ONE Rx#:[id number] fentaNYL 10 mcg/mL Premix Drip 250 / 250 2,500 mcg In 250 ml @ 50 MCG/HR 5 mls/hr IV.SIG TITRATE PRN Rx #:[id number] Keppra Inj 500 MG In NS Inj 100 105 / 105 ML @ 400 mls/hr IV.SIG Q12H [facility] Rx#:[id number] Flolan (30,000 ng/mL) Neb 100 100 / 100 100 / 100 1 / 1 ML In NS Inj 0 ML @ 5 mls/hr NEB Q8H [facility] Rx#:[id number] Output: Urine Amount (Catheter) 225 / 225 100 / 100 Indwelling Temp Sensing 225 / 225 100 / 100 Catheter Chest Tube Drainage 72 / 72 102 / 102 #1 Left Pleural #2 Right Pleural 62 / 62 92 / 92 Other: Date of Last Bowel Movement 01/15/18 01/15/18 01/15/18 # Incontinent Bowel Movements 1 - Constitutional no acute distress - Routine HEENT Exam Head: Present: normocephalic - Routine Neck Exam Present: supple - Routine Respiratory Exam Present: patient mechanically ventilated - Routine Cardiovascular Exam Present: RRR, S1, S2 - Routine Abdominal Exam Present: distended - Routine Extremities Exam Present: edema (significant generalized edema) - Routine Neurological Exam Absent: alert, oriented X3 Results - Lab Results 01/16/18 14:30 01/16/18 05:05 Most recent lab results ABG pH 7.35 (7.380-7.420) L 01/15/18 06:00 ABG pCO2 38 mmHg (38-42) 01/15/18 06:00 ABG pO2 173 mmHG (61-120) H 01/15/18 06:00 ABG HCO3 20 mmol/L (22-26) L 01/15/18 06:00 Calcium 5.6 mg/dL (8.5-10.1) L* 01/16/18 05:05 Phosphorus 5.0 mg/dL (2.5-4.9) H D 01/16/18 05:05 Magnesium 2.3 mg/dL (1.5-2.5) D 01/16/18 05:05 Assessment and Plan - Assessment (1) Acute renal failure Code(s): N17.9 - Acute kidney failure, unspecified Status: Acute Plan: Related to cardiogenic shock. Renal US reviewed. Unfortunately, the patient's renal functions continue to deteriorate and UOP marginal. He will likely require dialytic intervention within the next 24h given his significant positive fluid balance. at bedside and was advised of his critical status. She was in verbal agreement to proceed with dialysis if indicated. Off all pressors at this point in time. Repeat K+ tonight. IV Bumex & Diuril ordered tonight. Tentative initiation of dialysis tomorrow as discussed with his . (2) Alcohol abuse Code(s): F10.10 - Alcohol abuse, uncomplicated Status: Acute (3) Alcohol withdrawal seizure with complication Code(s): F10.239 - Alcohol dependence with withdrawal, unspecified; R56.9 - Unspecified convulsions Status: Acute <Kd Rudd - Last Filed: 01/16/18 17:08> History of Present Illness Primary Care Provider: UNKNOWN [facility] - Medical History Medical History: Medical History (Last Reviewed 01/15/18 @ 12:21 by Sakina Murray MD) Anxiety CVA (cerebral vascular accident) Diabetes ETOH abuse Hypertension No significant past surgical history - Family History Family History: Family History (Last Reviewed 01/15/18 @ 12:21 by Sakina Murray MD) Mother Kidney carcinoma Father CAD (coronary artery disease) Medications and Allergies Active Medications: Active Medications Al Hydroxide/Mg Hydroxide (Milk Of Orion Cooper) 30 ml PO Q12H PRN PRN Reason: Mild Constipation Albuterol (Duoneb Neb (Tonja)) 1 ampul NEB Q4HR NEB [facility] Last Admin: 01/16/18 15:28 Dose: 1 ampul Albuterol (Albuterol Neb (Prn)) 2.5 mg NEB Q2HR NEB PRN PRN Reason: DYSPNEA Artificial Tears (Tears Naturale Opth Drops) 1 drop EACH EYE Q8H [facility] Last Admin: 01/16/18 15:59 Dose: 1 drop Aspirin (Aspirin Chew) 81 mg PO DAILY [facility] Last Admin: 01/16/18 09:32 Dose: Not Given Bisacodyl (Dulcolax Supp) 10 mg RECTAL DAILY PRN PRN Reason: SEVERE CONSITIPATION Bumetanide (Bumex Inj) 2 mg IV.PUSH ONCE ONE Stop: 01/16/18 16:57 Carvedilol (Coreg) 3.125 mg PO BID [facility] Last Admin: 01/16/18 09:32 Dose: 3.125 mg Chlorhexidine Gluconate (Peridex 0.12% Oral Kit) 15 ml OROPHARYNG BID@0800, 2000 [facility] Last Admin: 01/16/18 09:28 Dose: 15 ml Chlorhexidine Gluconate (Chlorhexidine 2% Cloth) 3 pack TOPICAL DAILY@0400 [facility] Stop: 01/20/18 03:59 Last Admin: 01/16/18 04:49 Dose: 3 pack Chlorhexidine Gluconate (Chlorhexidine 2% Cloth) 3 pack TOPICAL DAILY@0400 PRN PRN Reason: Extra cloth needed Stop: 01/20/18 03:59 Chlorothiazide Sodium (Diuril Inj) 500 mg IV.PUSH ONCE ONE Stop: 01/16/18 16:58 Dextrose (D50w Vial) 50 ml IV.PUSH UNSCH PRN PRN Reason: PER HYPOGLYCEMIA PROTOCOL Glucagon (Glucagon Inj) 1 mg OTHER PRN PRN PRN Reason: for Hypoglycemia Protocol Fentanyl (Fentanyl 10 Mcg/Ml Premix Drip) 2,500 mcg in 250 mls @ 5 mls/hr IV.SIG TITRATE PRN; Protocol PRN Reason: Per Protocol Last Admin: 01/16/18 12:42 Dose: 250 mcg/hr, 25 mls/hr Midazolam HCl (Versed Inj) 50 mg in 50 mls @ 2 mls/hr IV.CONT TITRATE PRN; Protocol PRN Reason: Per Protocol Last Admin: 01/16/18 12:43 Dose: 6 mg/hr, 6 mls/hr Epinephrine HCl 2 mg/ Dextrose 250 mls @ 22.5 mls/hr IV.CONT TITRATE PRN; Protocol PRN Reason: Per Protocol Epoprostenol Sodium 100 ml/ (Sodium Chloride) 100 mls @ 5 mls/hr NEB Q8H [facility] Stop: 01/16/18 20:59 Last Admin: 01/16/18 12:40 Dose: 5 mls/hr Norepinephrine Bitartrate 16 (mg/ Dextrose) 250 mls @ 1.87 mls/hr IV.CONT TITRATE PRN; Protocol PRN Reason: See Protocol Last Titration: 01/15/18 18:23 Dose: Infused Fluconazole (Diflucan 400 Mg Premix Bag) 200 mls @ 100 mls/hr IV.SIG Q24H [facility] Last Infusion: 01/16/18 16:24 Dose: Infused Piperacillin/Tazobactam/Dextrose (Zosyn 3.375 Gm Premix) 50 mls @ 100 mls/hr IV.SIG Q6H [facility] Last Infusion: 01/16/18 16:24 Dose: Infused Multivitamins 10 ml/ Thiamine HCl 100 mg/ Folic Acid 1 mg/Sodium Chloride 511.2 mls @ 125 mls/hr IV.SIG Q24H [facility] Stop: 01/18/18 13:06 Last Infusion: 01/16/18 16:24 Dose: Infused Propofol (Diprivan 1000 Mg/100 Ml Inj) 1,000 mg in 100 mls @ 3.633 mls/hr IV.CONT TITRATE PRN; Protocol PRN Reason: Per Protocol Levetiracetam 500 mg/ Sodium (Chloride) 105 mls @ 400 mls/hr IV.SIG Q12H [facility] Last Infusion: 01/16/18 16:24 Dose: Infused Epoprostenol Sodium 80 ml/ (Sodium Chloride) 100 mls @ 5 mls/hr NEB Q8H [facility] Stop: 01/17/18 04:59 Epoprostenol Sodium 60 ml/ (Sodium Chloride) 100 mls @ 5 mls/hr NEB Q8H [facility] Stop: 01/17/18 12:59 Epoprostenol Sodium 40 ml/ (Sodium Chloride) 100 mls @ 5 mls/hr NEB Q8H [facility] Stop: 01/17/18 20:59 Epoprostenol Sodium 20 ml/ (Sodium Chloride) 100 mls @ 5 mls/hr NEB Q8H [facility] Stop: 01/18/18 04:59 Insulin Human Regular (Novolin R Correctional Sugar Inj) 0 units SQ Q6HR [facility]; Protocol Last Admin: 01/16/18 13:27 Dose: Not Given Lactulose (Lactulose Liq) 30 ml PO DAILY PRN PRN Reason: SEVERE CONSITIPATION Levothyroxine Sodium (Synthroid) 88 mcg PO DAILY@0600 [facility] Last Admin: 01/16/18 09:57 Dose: 88 mcg Methylprednisolone Sodium Succinate (Solumedrol Inj) 40 mg IV.PUSH Q8H [facility] Last Admin: 01/16/18 09:33 Dose: 40 mg Miscellaneous Medication () 1 each OROPHARYNG 0000,0400,1200,1600 [facility] Last Admin: 01/16/18 15:58 Dose: 1 each Morphine Sulfate (Morphine Inj) 2 mg IV.PUSH Q2H PRN PRN Reason: PAIN SCALE 6 TO 10 Ondansetron HCl (Zofran Inj) 4 mg IV.PUSH Q6H PRN PRN Reason: NAUSEA OR VOMITING Last Admin: 01/15/18 05:38 Dose: 4 mg Pantoprazole Sodium (Protonix Inj) 40 mg IV.PUSH Q12H [facility] Last Admin: 01/16/18 13:31 Dose: 40 mg Pharmacy Profile Note (Vancomycin Consult Pharmacy) 1 each OTHER UNSCH PRN PRN Reason: Pharmacy to dose Senna/Docusate Sodium (Ayleen-Colace) 1 tab PO BID [facility] Last Admin: 01/16/18 09:33 Dose: 1 tab Sennosides (Senokot) 17.2 mg PO Q12H PRN PRN Reason: Moderate Constipation Sodium Chloride (Ns Flush) 2 ml IV.FLUSH BID [facility] Last Admin: 01/16/18 09:33 Dose: 2 ml Sodium Chloride (Ns Flush) 2 ml IV.FLUSH PRN PRN PRN Reason: FLUSH AFTER USING IV ACCESS Last Admin: 01/16/18 09:33 Dose: 2 ml Terbutaline Sulfate (Brethine Inj) 1 mg SQ UNSCH PRN PRN Reason: For Extravasation Exam Vital signs: Vital Signs 01/15/18 18:00 01/15/18 19:00 01/15/18 20:00 Temperature 99.5 F Pulse Rate 99 H 96 H 94 H Respiratory Rate 10 L 10 L 10 L Blood Pressure Pulse Oximetry 97 97 96 01/15/18 20:37 01/15/18 21:00 01/15/18 22:00 Temperature Pulse Rate 93 H 93 H 95 H Respiratory Rate 10 L 10 L 10 L Blood Pressure Pulse Oximetry 97 97 98 01/15/18 23:00 01/16/18 00:00 01/16/18 00:48 Temperature 99.5 F Pulse Rate 91 H 85 Respiratory Rate 10 L 10 L 10 L Blood Pressure Pulse Oximetry 98 98 99 01/16/18 01:00 01/16/18 02:00 01/16/18 03:00 Temperature Pulse Rate 89 90 93 H Respiratory Rate 10 L 10 L 10 L Blood Pressure Pulse Oximetry 98 97 97 01/16/18 04:00 01/16/18 04:15 01/16/18 04:18 Temperature 98.6 F Pulse Rate 88 88 Respiratory Rate 10 L 10 L 13 Blood Pressure Pulse Oximetry 98 98 01/16/18 05:00 01/16/18 06:00 01/16/18 07:00 Temperature Pulse Rate 89 83 80 Respiratory Rate 10 L 10 L 18 Blood Pressure Pulse Oximetry 98 97 95 01/16/18 08:00 01/16/18 08:05 01/16/18 09:00 Temperature 99.2 F Pulse Rate 83 83 86 Respiratory Rate 18 18 18 Blood Pressure Pulse Oximetry 97 98 01/16/18 09:51 01/16/18 10:00 01/16/18 10:30 Temperature Pulse Rate 81 78 Respiratory Rate 18 18 Blood Pressure 147/83 H 144/78 H Pulse Oximetry 98 99 99 01/16/18 11:00 01/16/18 11:31 01/16/18 11:36 Temperature Pulse Rate 104 H 84 Respiratory Rate 17 16 Blood Pressure 152/93 H Pulse Oximetry 95 98 01/16/18 12:00 01/16/18 12:03 01/16/18 12:10 Temperature 98.8 F Pulse Rate 90 90 Respiratory Rate 10 L 13 Blood Pressure 155/88 H 159/96 H Pulse Oximetry 99 100 01/16/18 12:15 01/16/18 12:20 01/16/18 12:22 Temperature Pulse Rate 95 H 92 H Respiratory Rate 26 H 18 Blood Pressure 153/91 H 184/93 H Pulse Oximetry 100 100 100 01/16/18 12:25 01/16/18 12:26 01/16/18 13:00 Temperature Pulse Rate 81 81 74 Respiratory Rate 19 18 18 Blood Pressure 139/81 134/86 Pulse Oximetry 100 98 98 01/16/18 14:00 01/16/18 15:00 01/16/18 15:29 Temperature Pulse Rate 72 75 Respiratory Rate 18 18 19 Blood Pressure 134/85 120/78 Pulse Oximetry 100 99 98 01/16/18 16:00 01/16/18 17:00 Temperature 98.8 F Pulse Rate 75 80 Respiratory Rate 18 18 Blood Pressure 115/77 117/77 Pulse Oximetry 97 96 Intake & Output 01/15/18 01/16/18 01/16/18 18:59 06:59 18:59 Intake Total 7408 / 7408 3250 / 3250 3353.5 / 3353.5 Output Total 297 / 297 202 / 202 Balance 7111 / 7111 3048 / 3048 3353.5 / 3353.5 Weight 121.1 kg Intake: IV 7408 / 7408 3250 / 3250 3353.5 / 3353.5 Heparin/D5W 25,000 U/250 mL 25, 66.3 / 66.3 000 unit In 250 ml @ 1,000 UNITS/HR 10 mls/hr IV.CONT TITRATE PRN Rx#:[id number] Versed Inj 50 mg In 50 ml @ 2 50 / 50 50 / 50 MG/HR 2 mls/hr IV.CONT TITRATE PRN Rx#:[id number] Levophed Inj 16 MG In D5W Inj 23 / 23 234 ML @ 2 MCG/MIN 1.87 mls/hr IV.CONT TITRATE PRN Rx#: [id number] Diprivan 1000 mg/100 ml Inj 1, 5 / 5 000 mg In 100 ml @ 5 MCG/KG/MIN 2.994 mls/hr IV.CONT TITRATE PRN Rx#:[id number] NS Inj 1,000 ML @ 84 mls/hr IV. 1000 / 1000 880 / 880 CONT .[id number] TONJA Rx#:[id number] Sodium Bicarbonate 8.4% Inj 150 2000 / 2000 2000 / 2000 570 / 570 MEQ In Sterile Water for Inj 850 ML @ 150 mls/hr IV.CONT . Q6H40M TONJA Rx#:[id number] Pitressin Inj 40 UNIT In D5W 90 / 90 Inj 98 ML @ 0.01 UNITS/MIN 1.5 mls/hr IV.CONT CONT TONJA Rx#: [id number] Alburx 5% Inj 500 ML @ 250 mls/ 1000 / 1000 1000 / 1000 500 / 500 hr IV.SIG Q6H TONJA Rx#:[id number] Calcium Chloride Inj 2 GM In NS 120 / 120 Inj 100 ML @ 120 mls/hr IV.SIG ONCE ONE Rx#:[id number] Maxipime Inj 2,000 MG In NS Inj 100 / 100 100 ML @ 200 mls/hr IV.SIG Q12H TONJA Rx#:[id number] Diflucan 400 mg Premix Bag 200 200 / 200 200 / 200 ML @ 100 mls/hr IV.SIG Q24H TONJA Rx#:[id number] LR 1000 mL Inj 1,000 ML @ Wide 2000 / 2000 Open IV.SIG BOLUS ONE Rx#: [id number] MVI-12 Inj 10 ML Thiamine Inj 511.2 / 511.2 100 MG Folvite Inj 1 MG In NS Inj 500 ML @ 125 mls/hr IV.SIG Q24H TONJA Rx#:[id number] Levophed-Dextrose 4 mg/250 ml 250 / 250 Drip 4 mg In 250 ml @ 2 MCG/MIN 7.5 mls/hr IV.SIG TITRATE PRN Rx#:[id number] Zosyn 3.375 GM Premix 50 ML @ 100 / 100 100 / 100 100 mls/hr IV.SIG Q6H [facility] Rx#: [id number] Zosyn 4.5 GM Premix 4.5 gm In 100 / 100 100 ml @ 200 mls/hr IV.SIG Q6H [facility] Rx#:[id number] Vancomycin Inj 2,000 MG In NS 540 / 540 Inj 500 ML @ 270 mls/hr IV.SIG ONCE ONE Rx#:[id number] fentaNYL 10 mcg/mL Premix Drip 250 / 250 2,500 mcg In 250 ml @ 50 MCG/HR 5 mls/hr IV.SIG TITRATE PRN Rx #:[id number] Keppra Inj 500 MG In NS Inj 100 105 / 105 ML @ 400 mls/hr IV.SIG Q12H [facility] Rx#:[id number] Flolan (30,000 ng/mL) Neb 100 100 / 100 100 / 100 1 / 1 ML In NS Inj 0 ML @ 5 mls/hr NEB Q8H [facility] Rx#:[id number] Output: Urine Amount (Catheter) 225 / 225 100 / 100 Indwelling Temp Sensing 225 / 225 100 / 100 Catheter Chest Tube Drainage 72 / 72 102 / 102 #1 Left Pleural 10 #2 Right Pleural 62 / 62 92 / 92 Other: Date of Last Bowel Movement 01/15/18 01/15/18 01/15/18 # Incontinent Bowel Movements 1 Results - Lab Results 01/16/18 14:30 01/16/18 05:05 Most recent lab results ABG pH 7.35 (7.380-7.420) L 01/15/18 06:00 ABG pCO2 38 mmHg (38-42) 01/15/18 06:00 ABG pO2 173 mmHG (61-120) H 01/15/18 06:00 ABG HCO3 20 mmol/L (22-26) L 01/15/18 06:00 Calcium 5.6 mg/dL (8.5-10.1) L* 01/16/18 05:05 Phosphorus 5.0 mg/dL (2.5-4.9) H D 01/16/18 05:05 Magnesium 2.3 mg/dL (1.5-2.5) D 01/16/18 05:05 Assessment and Plan - Assessment (1) Acute renal failure Code(s): N17.9 - Acute kidney failure, unspecified Status: Acute (2) Alcohol abuse Code(s): F10.10 - Alcohol abuse, uncomplicated Status: Acute (3) Alcohol withdrawal seizure with complication Code(s): F10.239 - Alcohol dependence with withdrawal, unspecified; R56.9 - Unspecified convulsions Status: Acute - Attending Attestation The exam, history, and the medical decision-making described in the above note were completed with the assistance of the ISIDRA. I reviewed and agree with the findings presented. I attest that I had a [id number] encounter with the patient on the same day, and personally performed and documented my assessment and findings in the medical record.
[2018-01-16 17:45] LABS: Hemoglobin 7.2 gm/dL (13.0-17.0)
[2018-01-16 17:55] LABS: Hematocrit 20.9 % (39.0-51.0)
[2018-01-16 18:07] LABS: Potassium 3.4 meq/L (3.5-5.1)
[2018-01-16] MEDS ORDERED: Chlorothiazide Inj 500 MG Vial IV.PUSH ONE (19:00)
[2018-01-16 20:00] LABS: CKMB Percent 0.1 % (0.0-4.0)
[2018-01-16] MEDS ORDERED: Epoprostenol (30,000/mL) Neb 80 ML in Sodium Chlor 0.9% Inj 20 ML NEB SCH (21:00)
[2018-01-17] MEDS: Insulin NovoLIN Regular Correctional Sugar Inj SQ SCH ×5 (00:19→23:30)
[2018-01-17] MEDS: Artificial Tears Opth Drops 15 ML Bottle EACH EYE SCH ×4 (00:19→23:31)
[2018-01-17] MEDS: Oral Hygiene Kit OROPHARYNG SCH ×5 (00:19→23:31)
[2018-01-17 00:57] LABS: Hematocrit 23.4 % (39.0-51.0); Hemoglobin 8.2 gm/dL (13.0-17.0)
[2018-01-17] MEDS: Pantoprazole Inj 40 MG Vial IV.PUSH SCH ×2 (02:10→14:02)
[2018-01-17] MEDS: Piperacil/Tazo 3.375 GM Premix 50 ML IV.SIG SCH ×4 (02:11→20:42)
[2018-01-17] MEDS: MethylPREDNISolone Sod Succinate Inj 40 MG/ML Vial IV.PUSH SCH ×3 (02:11→18:07)
[2018-01-17] MEDS: Chlorhexidine Gluconate 2% 1 Pack (2 Cloths) TOPICAL SCH (03:36)
--- NOTE | 2018-01-17 04:58 | XR ---
EXAM DATE: 01/17/2018 4:12 AM EST AGE/SEX: 62 years / Male INDICATIONS: Shortness of breath, recent pneumothorax and pneumomediastinum.. CLINICAL DATA: This is the patient's subsequent encounter. Patient reports that signs and symptoms h ave been present for 1 day and indicates a pain score of Nonresponsive. MEDICAL/SURGICAL HISTORY: Diabetes. Hypertension. Myocardial infarction. CVA. None. [place]PARISON: [facility] [place]16[place]. . FINDINGS: A single AP semierect view of the chest was obtained. The patient remains intubated with the endotrac heal tube tip 2 cm above the alberto. A nasogastric tube is seen coursing through the esophagus into t he stomach. Hazy bilateral interstitial opacities remain. The study is more mid inspiratory with chinik ding of the lung vasculature. There is no distinct effusion. There is mild lucency again noted along the medial left upper lobe. There is mild residual right pneumomediastinum. The right-sided central l ine remains in place as well. Multiple overlying electrocardiogram leads are present. The previously noted small bore left-sided chest tube remains in place. The small bore right-sided chest tube is not well visualized on the current study. CONCLUSION: 1. Mild residual lucency along the medial upper lobes which most characteristic of residual pneumome diastinum. 2. There is no definite pneumothorax. 3. The smallbore left-sided chest tube remains in place. Previously noted right-sided chest tube is not well visualized. 4. Hazy opacity throughout both lungs without significant change. Electronically signed by: Luis Carlos Silva MD 01/17/2018 4:57 AM EST
[2018-01-17] MEDS ORDERED: Epoprostenol (30,000/mL) Neb 60 ML in Sodium Chlor 0.9% Inj 40 ML NEB SCH (05:00)
[2018-01-17] MEDS: Levothyroxine 88 MCG Tablet PO SCH (05:07)
[2018-01-17 05:52] LABS: Baso % (Auto) 0.1 % (0.0-2.0); Eos % (Auto) 0.1 % (0.0-4.0); Hematocrit 24.5 % (39.0-51.0); Hemoglobin 8.3 gm/dL (13.0-17.0); Lymph # (Auto) 0.3 th/mm3 (1.0-4.8); Lymph % (Auto) 4.7 % (9.0-44.0); Mean Corpuscular HGB Conc 33.9 % (32.0-36.0); Mean Corpuscular Hemoglobin 30.8 pg (27.0-34.0); Mean Corpuscular Volume 90.9 fL (80.0-100.0); Mean Platelet Volume 10.2 fL (7.0-11.0); Mono # (Auto) 0.2 th/mm3 (0.0-0.9); Mono % (Auto) 2.7 % (0.0-8.0); Neut # (Auto) 5.5 th/mm3 (1.8-7.7); Neut % (Auto) 92.4 % (16.0-70.0); Platelet Count 27 th/mm3 (150-450); Red Cell Distribution Width 14.2 % (11.6-17.2); White Blood Count 5.9 th/mm3 (4.0-11.0)
[2018-01-17 06:34] LABS: Albumin 3.1 g/dL (3.4-5.0); Calcium 6.3 mg/dL (8.5-10.1); Carbon Dioxide 23.7 meq/L (21.0-32.0); Magnesium 2.2 mg/dL (1.5-2.5); Phosphorus 7.8 mg/dL (2.5-4.9); Potassium 3.6 meq/L (3.5-5.1); Thyroid Stimulating Hormone 0.612 uIU/mL (0.358-3.740); Total Protein 5.9 g/dL (6.4-8.2); Vancomycin,Random 27.5 Comment
--- NOTE | 2018-01-17 08:02 | P.PNCA ---
Subjective Interval history: Intubated. Sedated. Medications and Allergies Active Medications: Active Medications Al Hydroxide/Mg Hydroxide (Milk Of Magngabriela Liq) 30 ml PO Q12H PRN PRN Reason: Mild Constipation Albuterol (Duoneb Neb ([facility])) 1 ampul NEB Q4HR NEB COUNT INCLUDES THE [facility] Last Admin: 01/17/18 04:20 Dose: 1 ampul Albuterol (Albuterol Neb (Prn)) 2.5 mg NEB Q2HR NEB PRN PRN Reason: DYSPNEA Artificial Tears (Tears Naturale Opth Drops) 1 drop EACH EYE Q8H COUNT INCLUDES THE [facility] Last Admin: 01/17/18 00:19 Dose: 1 drop Aspirin (Aspirin Chew) 81 mg PO DAILY COUNT INCLUDES THE [facility] Last Admin: 01/16/18 09:32 Dose: Not Given Bisacodyl (Dulcolax Supp) 10 mg RECTAL DAILY PRN PRN Reason: SEVERE CONSITIPATION Carvedilol (Coreg) 3.125 mg PO BID COUNT INCLUDES THE [facility] Last Admin: 01/16/18 21:41 Dose: 3.125 mg Chlorhexidine Gluconate (Peridex 0.12% Oral Kit) 15 ml OROPHARYNG BID@0800, 2000 COUNT INCLUDES THE [facility] Last Admin: 01/16/18 19:49 Dose: 15 ml Chlorhexidine Gluconate (Chlorhexidine 2% Cloth) 3 pack TOPICAL DAILY@0400 COUNT INCLUDES THE [facility] Stop: 01/20/18 03:59 Last Admin: 01/17/18 03:36 Dose: 3 pack Chlorhexidine Gluconate (Chlorhexidine 2% Cloth) 3 pack TOPICAL DAILY@0400 PRN PRN Reason: Extra cloth needed Stop: 01/20/18 03:59 Dextrose (D50w Vial) 50 ml IV.PUSH UNSCH PRN PRN Reason: PER HYPOGLYCEMIA PROTOCOL Glucagon (Glucagon Inj) 1 mg OTHER PRN PRN PRN Reason: for Hypoglycemia Protocol Fentanyl (Fentanyl 10 Mcg/Ml Premix Drip) 2,500 mcg in 250 mls @ 5 mls/hr IV.SIG TITRATE PRN; Protocol PRN Reason: Per Protocol Last Titration: 01/17/18 05:00 Dose: 150 mcg/hr, 15 mls/hr Midazolam HCl (Versed Inj) 50 mg in 50 mls @ 2 mls/hr IV.CONT TITRATE PRN; Protocol PRN Reason: Per Protocol Last Titration: 01/17/18 04:00 Dose: 2 mg/hr, 2 mls/hr Epinephrine HCl 2 mg/ Dextrose 250 mls @ 22.5 mls/hr IV.CONT TITRATE PRN; Protocol PRN Reason: Per Protocol Norepinephrine Bitartrate 16 (mg/ Dextrose) 250 mls @ 1.87 mls/hr IV.CONT TITRATE PRN; Protocol PRN Reason: See Protocol Last Titration: 01/15/18 18:23 Dose: Infused Fluconazole (Diflucan 400 Mg Premix Bag) 200 mls @ 100 mls/hr IV.SIG Q24H [facility] Last Infusion: 01/16/18 16:24 Dose: Infused Piperacillin/Tazobactam/Dextrose (Zosyn 3.375 Gm Premix) 50 mls @ 100 mls/hr IV.SIG Q6H [facility] Last Infusion: 01/17/18 02:42 Dose: Infused Multivitamins 10 ml/ Thiamine HCl 100 mg/ Folic Acid 1 mg/Sodium Chloride 511.2 mls @ 125 mls/hr IV.SIG Q24H [facility] Stop: 01/18/18 13:06 Last Infusion: 01/16/18 16:24 Dose: Infused Propofol (Diprivan 1000 Mg/100 Ml Inj) 1,000 mg in 100 mls @ 3.633 mls/hr IV.CONT TITRATE PRN; Protocol PRN Reason: Per Protocol Levetiracetam 500 mg/ Sodium (Chloride) 105 mls @ 400 mls/hr IV.SIG Q12H [facility] Last Infusion: 01/17/18 02:30 Dose: Infused Epoprostenol Sodium 60 ml/ (Sodium Chloride) 100 mls @ 5 mls/hr NEB Q8H [facility] Stop: 01/17/18 12:59 Last Admin: 01/17/18 05:38 Dose: 5 mls/hr Epoprostenol Sodium 40 ml/ (Sodium Chloride) 100 mls @ 5 mls/hr NEB Q8H [facility] Stop: 01/17/18 20:59 Epoprostenol Sodium 20 ml/ (Sodium Chloride) 100 mls @ 5 mls/hr NEB Q8H [facility] Stop: 01/18/18 04:59 Insulin Human Regular (Novolin R Correctional Sugar Inj) 0 units SQ Q6HR [facility]; Protocol Last Admin: 01/17/18 05:38 Dose: 5 units Lactulose (Lactulose Liq) 30 ml PO DAILY PRN PRN Reason: SEVERE CONSITIPATION Levothyroxine Sodium (Synthroid) 88 mcg PO DAILY@0600 COUNT INCLUDES THE [facility] Last Admin: 01/17/18 05:07 Dose: 88 mcg Methylprednisolone Sodium Succinate (Solumedrol Inj) 40 mg IV.PUSH Q8H COUNT INCLUDES THE [facility] Last Admin: 01/17/18 02:11 Dose: 40 mg Miscellaneous Medication () 1 each OROPHARYNG 0000,0400,1200,1600 COUNT INCLUDES THE [facility] Last Admin: 01/17/18 03:37 Dose: 1 each Morphine Sulfate (Morphine Inj) 2 mg IV.PUSH Q2H PRN PRN Reason: PAIN SCALE 6 TO 10 Ondansetron HCl (Zofran Inj) 4 mg IV.PUSH Q6H PRN PRN Reason: NAUSEA OR VOMITING Last Admin: 01/15/18 05:38 Dose: 4 mg Pantoprazole Sodium (Protonix Inj) 40 mg IV.PUSH Q12H COUNT INCLUDES THE [facility] Last Admin: 01/17/18 02:10 Dose: 40 mg Pharmacy Profile Note (Vancomycin Consult Pharmacy) 1 each OTHER UNSCH PRN PRN Reason: Pharmacy to dose Senna/Docusate Sodium (Ayleen-Colace) 1 tab PO BID COUNT INCLUDES THE [facility] Last Admin: 01/16/18 21:41 Dose: 1 tab Sennosides (Senokot) 17.2 mg PO Q12H PRN PRN Reason: Moderate Constipation Sodium Chloride (Ns Flush) 2 ml IV.FLUSH BID COUNT INCLUDES THE [facility] Last Admin: 01/16/18 21:42 Dose: 2 ml Sodium Chloride (Ns Flush) 2 ml IV.FLUSH PRN PRN PRN Reason: FLUSH AFTER USING IV ACCESS Last Admin: 01/16/18 09:33 Dose: 2 ml Terbutaline Sulfate (Brethine Inj) 1 mg SQ UNSCH PRN PRN Reason: For Extravasation Allergies Allergy/AdvReac Type Severity Reaction Status Date / Time erythromycin base Allergy Severe Hives Verified 01/14/18 03:00 penicillin G Allergy Severe Hives Verified 01/14/18 03:00 Physical Exam Vital signs: Vital Signs 01/16/18 08:00 01/16/18 08:05 01/16/18 09:00 Temperature 99.2 F Pulse Rate 83 83 86 Respiratory Rate 18 Blood Pressure Pulse Oximetry 97 98 01/16/18 09:51 01/16/18 10:00 01/16/18 10:30 Temperature Pulse Rate 81 78 Respiratory Rate 18 18 Blood Pressure 147/83 H 144/78 H Pulse Oximetry 98 99 99 01/16/18 11:00 01/16/18 11:31 01/16/18 11:36 Temperature Pulse Rate 104 H 84 Respiratory Rate 17 16 Blood Pressure 152/93 H Pulse Oximetry 95 98 01/16/18 12:00 01/16/18 12:03 01/16/18 12:10 Temperature 98.8 F Pulse Rate 90 90 Respiratory Rate 10 L 13 Blood Pressure 155/88 H 159/96 H Pulse Oximetry 99 100 01/16/18 12:15 01/16/18 12:20 01/16/18 12:22 Temperature Pulse Rate 95 H 92 H Respiratory Rate 26 H 18 Blood Pressure 153/91 H 184/93 H Pulse Oximetry 100 100 100 01/16/18 12:25 01/16/18 12:26 01/16/18 13:00 Temperature Pulse Rate 81 81 74 Respiratory Rate 19 18 18 Blood Pressure 139/81 134/86 Pulse Oximetry 100 98 98 01/16/18 14:00 01/16/18 15:00 01/16/18 15:29 Temperature Pulse Rate 72 75 Respiratory Rate 18 18 19 Blood Pressure 134/85 120/78 Pulse Oximetry 100 99 98 01/16/18 16:00 01/16/18 17:00 01/16/18 18:00 Temperature 98.8 F Pulse Rate 75 80 77 Respiratory Rate 18 18 18 Blood Pressure 115/77 117/77 Pulse Oximetry 97 96 96 01/16/18 19:00 01/16/18 20:00 01/16/18 21:00 Temperature 97.9 F Pulse Rate 76 74 72 Respiratory Rate 18 18 18 Blood Pressure 115/74 122/79 123/78 Pulse Oximetry 97 98 98 01/16/18 21:04 01/16/18 21:07 01/16/18 21:14 Temperature 98.1 F 98.6 F Pulse Rate 73 72 Respiratory Rate 18 18 Blood Pressure 123/78 123/78 Pulse Oximetry 98 97 01/16/18 22:00 01/16/18 23:00 01/16/18 23:37 Temperature 98.5 F Pulse Rate 71 71 68 Respiratory Rate 18 18 18 Blood Pressure 125/79 130/84 130/84 Pulse Oximetry 98 98 98 01/17/18 00:00 01/17/18 00:39 01/17/18 01:00 Temperature 98.5 F Pulse Rate 69 73 69 Respiratory Rate 18 18 18 Blood Pressure 129/83 121/78 Pulse Oximetry 98 94 L 97 01/17/18 02:00 01/17/18 03:00 01/17/18 04:00 Temperature 98.5 F Pulse Rate 71 76 66 Respiratory Rate 18 18 18 Blood Pressure 116/73 119/76 125/80 Pulse Oximetry 95 95 95 01/17/18 04:21 01/17/18 05:00 01/17/18 06:00 Temperature Pulse Rate 65 65 66 Respiratory Rate 18 18 18 Blood Pressure 136/88 131/81 Pulse Oximetry 96 97 96 Intake & Output 01/16/18 01/17/18 01/17/18 18:59 06:59 18:59 Intake Total 4308.5 / 4308.5 1230 / 1230 Output Total 230 / 230 74 / 74 Balance 4078.5 / 4078.5 1156 / 1156 Weight 123 kg Intake: IV 4248.5 / 4248.5 705 / 705 Heparin/D5W 25,000 U/250 mL 25, 66.3 / 66.3 000 unit In 250 ml @ 1,000 UNITS/HR 10 mls/hr IV.CONT TITRATE PRN Rx#:[id number] Versed Inj 50 mg In 50 ml @ 2 50 / 50 50 / 50 MG/HR 2 mls/hr IV.CONT TITRATE PRN Rx#:[id number] NS Inj 1,000 ML @ 84 mls/hr IV. 1260 / 1260 CONT .[id number] COUNT INCLUDES THE [facility] Rx#:[id number] Sodium Bicarbonate 8.4% Inj 150 570 / 570 MEQ In Sterile Water for Inj 850 ML @ 150 mls/hr IV.CONT . Q6H40M COUNT INCLUDES THE [facility] Rx#:[id number] Alburx 5% Inj 500 ML @ 250 mls/ 500 / 500 hr IV.SIG Q6H COUNT INCLUDES THE [facility] Rx#:[id number] Calcium Chloride Inj 2 GM In NS 120 / 120 Inj 100 ML @ 120 mls/hr IV.SIG ONCE ONE Rx#:[id number] Diflucan 400 mg Premix Bag 200 200 / 200 ML @ 100 mls/hr IV.SIG Q24H COUNT INCLUDES THE [facility] Rx#:[id number] MVI-12 Inj 10 ML Thiamine Inj 511.2 / 511.2 100 MG Folvite Inj 1 MG In NS Inj 500 ML @ 125 mls/hr IV.SIG Q24H COUNT INCLUDES THE [facility] Rx#:[id number] Zosyn 3.375 GM Premix 50 ML @ 100 / 100 100 / 100 100 mls/hr IV.SIG Q6H COUNT INCLUDES THE [facility] Rx#: [id number] Vancomycin Inj 1,500 MG In NS 515 / 515 Inj 500 ML @ 257.5 mls/hr IV. SIG ONCE ONE Rx#:[id number] fentaNYL 10 mcg/mL Premix Drip 250 / 250 250 / 250 2,500 mcg In 250 ml @ 50 MCG/HR 5 mls/hr IV.SIG TITRATE PRN Rx #:[id number] Keppra Inj 500 MG In NS Inj 100 105 / 105 105 / 105 ML @ 400 mls/hr IV.SIG Q12H COUNT INCLUDES THE [facility] Rx#:[id number] Flolan (30,000 ng/mL) Neb 80 ML 1 / 1 200 / 200 In NS Inj 20 ML @ 5 mls/hr NEB Q8H COUNT INCLUDES THE [facility] Rx#:[id number] Tube Feeding 65 / 65 Water Bolus Amount 60 / 60 60 / 60 Intake (Blood Product) Amt 400 / 400 Rbc As-3 Leukoreduced Unit 400 / 400 [id number] Output: Urine Amount (Catheter) 50 / 50 60 / 60 Indwelling Temp Sensing 50 / 50 60 / 60 Catheter Chest Tube Drainage 180 / 180 14 / 14 #1 Left Pleural 30 / 30 4 / 4 #2 Right Pleural 150 / 150 10 / 10 Other: Date of Last Bowel Movement 01/15/18 01/17/18 # Bowel Movements 1 2 - Constitutional Comments: Intubated. Sedated. - Routine Neck Exam Comments: Difficult to assess JVP. - Routine Respiratory Exam Comments: Lungs clear anteriorly. - Routine Cardiovascular Exam Present: RRR, S1, S2. Absent: murmur, gallop - Routine Abdominal Exam Present: soft, normoactive bowel sounds. Absent: organomegaly - Routine Extremities Exam Present: edema. Absent: cyanosis, clubbing Comments: Possible trace edema. - Urinary Catheter Management Indwelling Temp Sensing Catheter Cath placed during this visit: yes Reason for continuing: Other continuation reason Insertion date: 01/14/18 Insertion time: 22:00 Results 01/17/18 05:30 01/17/18 05:30 Cardiac Enzymes 01/16/18 01/16/18 01/16/18 Range/Units 05:05 08:10 17:12 AST 7869 H (15-37) U/L Lactate Dehydrogenase 5175 H (87-241) U/L CK-MB (CK-2) 36.0 H (0.5-3.6) ng/mL Troponin I 2.37 H* (0.02-0.05) ng/mL 01/17/18 Range/Units 05:30 AST 6764 H (15-37) U/L Lactate Dehydrogenase (87-241) U/L CK-MB (CK-2) (0.5-3.6) ng/mL Troponin I (0.02-0.05) ng/mL Coagulation 01/15/18 01/15/18 01/15/18 Range/Units 11:45 18:10 23:18 APTT 28.7 95.2 H* D 79.7 H (23.4-31.7) sec 01/16/18 01/16/18 Range/Units 05:05 14:30 APTT 69.0 H 40.6 H D (23.4-31.7) sec CBC 01/16/18 01/16/18 01/16/18 Range/Units 05:05 14:30 17:12 WBC 5.3 (4.0-11.0) th/mm3 RBC 2.61 L (4.50-5.90) mil/mm3 Hgb 8.1 L D 7.8 L 7.2 L (13.0-17.0) gm/dL Hct 23.0 L 22.8 L 20.9 L* (39.0-51.0) % Plt Count 26 L D (150-450) th/mm3 Neut # (Auto) 5.0 (1.8-7.7) th/mm3 Lymph # (Auto) 0.2 L (1.0-4.8) th/mm3 Isabela # (Auto) 0.1 (0.0-0.9) th/mm3 Eos # (Auto) 0.0 (0.0-0.4) th/mm3 Baso # (Auto) 0.0 (0.0-0.2) th/mm3 01/16/18 01/17/18 01/17/18 Range/Units 18:00 00:40 05:30 WBC 5.9 (4.0-11.0) th/mm3 RBC 2.70 L (4.50-5.90) mil/mm3 Hgb 8.2 L 8.3 L (13.0-17.0) gm/dL Hct 23.4 L 24.5 L (39.0-51.0) % Plt Count 24 L 27 L (150-450) th/mm3 Neut # (Auto) 5.5 (1.8-7.7) th/mm3 Lymph # (Auto) 0.3 L (1.0-4.8) th/mm3 Isabela # (Auto) 0.2 (0.0-0.9) th/mm3 Eos # (Auto) 0.0 (0.0-0.4) th/mm3 Baso # (Auto) 0.0 (0.0-0.2) th/mm3 Comprehensive Metabolic Panel 01/16/18 01/16/18 01/16/18 Range/Units 05:05 08:10 17:12 Sodium 141 (136-145) meq/L Potassium 3.0 L 3.4 L (3.5-5.1) meq/L Chloride 94 L (98-107) meq/L Carbon Dioxide 32.9 H D (21.0-32.0) meq/L BUN 39 H (7-18) mg/dL Creatinine 4.00 H (0.60-1.30) mg/dL Calcium 5.6 L* (8.5-10.1) mg/dL Direct Bilirubin 2.0 H (0.0-0.2) mg/dL Indirect Bilirubin 1.6 H (0.0-0.8) mg/dL AST 7869 H (15-37) U/L ALT 1511 H (12-78) U/L Alkaline Phosphatase 91 (45-117) U/L Total Protein 5.9 L (6.4-8.2) g/dL Albumin 3.5 (3.4-5.0) g/dL 01/17/18 Range/Units 05:30 Sodium 140 (136-145) meq/L Potassium 3.6 (3.5-5.1) meq/L Chloride 95 L (98-107) meq/L Carbon Dioxide 23.7 D (21.0-32.0) meq/L BUN 63 H (7-18) mg/dL Creatinine 5.87 H (0.60-1.30) mg/dL Calcium 6.3 L* (8.5-10.1) mg/dL Direct Bilirubin (0.0-0.2) mg/dL Indirect Bilirubin (0.0-0.8) mg/dL AST 6764 H (15-37) U/L ALT 1881 H (12-78) U/L Alkaline Phosphatase 90 (45-117) U/L Total Protein 5.9 L (6.4-8.2) g/dL Albumin 3.1 L (3.4-5.0) g/dL Intake and Output 01/16/18 01/17/18 01/17/18 22:59 06:59 14:59 Intake Total 2271.2 / 2271.2 780 / 780 Output Total 230 / 230 74 / 74 Balance 2041.2 / 2041.2 706 / 706 Intake: IV 2211.2 / 2211.2 255 / 255 Versed Inj 50 mg In 50 ml @ 2 50 / 50 MG/HR 2 mls/hr IV.CONT TITRATE PRN Rx#:[id number] NS Inj 1,000 ML @ 84 mls/hr IV. 380 / 380 CONT .[id number] [facility] Rx#:[id number] Diflucan 400 mg Premix Bag 200 200 / 200 ML @ 100 mls/hr IV.SIG Q24H [facility] Rx#:[id number] MVI-12 Inj 10 ML Thiamine Inj 511.2 / 511.2 100 MG Folvite Inj 1 MG In NS Inj 500 ML @ 125 mls/hr IV.SIG Q24H [facility] Rx#:[id number] Zosyn 3.375 GM Premix 50 ML @ 100 / 100 50 / 50 100 mls/hr IV.SIG Q6H [facility] Rx#: [id number] Vancomycin Inj 1,500 MG In NS 515 / 515 Inj 500 ML @ 257.5 mls/hr IV. SIG ONCE ONE Rx#:[id number] fentaNYL 10 mcg/mL Premix Drip 250 / 250 2,500 mcg In 250 ml @ 50 MCG/HR 5 mls/hr IV.SIG TITRATE PRN Rx #:[id number] Keppra Inj 500 MG In NS Inj 100 105 / 105 105 / 105 ML @ 400 mls/hr IV.SIG Q12H COUNT INCLUDES THE [facility] Rx#:[id number] Flolan (30,000 ng/mL) Neb 80 ML 100 / 100 100 / 100 In NS Inj 20 ML @ 5 mls/hr NEB Q8H [facility] Rx#:[id number] Tube Feeding 65 / 65 Water Bolus Amount 60 / 60 60 / 60 Intake (Blood Product) Amt 0 / 0 400 / 400 Rbc As-3 Leukoreduced Unit 0 / 0 400 / 400 [id number] Output: Urine Amount (Catheter) 50 / 50 60 / 60 Indwelling Temp Sensing 50 / 50 60 / 60 Catheter Chest Tube Drainage 180 / 180 #1 Left Pleural 30 / 30 4 #2 Right Pleural 150 / 150 Other: Date of Last Bowel Movement 01/16/18 01/17/18 # Bowel Movements 1 2 Weight 123 kg - Imaging and Cardiology Imaging: Impressions Abdomen X-Ray 01/15/18 00:00 CONCLUSION: 1. No free intraperitoneal air. 2. Residual small pneumothoraces with small chest tubes in place. Abdomen/Bladder Ultrasound 01/16/18 00:00 CONCLUSION: 1. Trace ascites. 2. Negative renal ultrasound Abdomen/Pelvis CT 01/16/18 00:00 CONCLUSION: 1. Minimal free intraperitoneal air. I don't see etiology for such 2. Dense consolidation both lung bases with small bilateral chest tubes 3. Trace pneumothorax on the left. No pneumothorax on the right. 4. Moderate fatty replacement to the liver with prominent gallbladder Chest CT 01/16/18 00:00 . CONCLUSION: 1. Dense consolidation in both lung bases small bore chest tubes evident. 2. Trace pneumothorax on the left 3. No significant fluid. Chest X-Ray 01/16/18 00:00 CONCLUSION: 1. [Interval decrease in pneumothoraces and pneumomediastinum apparent mild residual medial left upper lobe. 2. Diffuse airspace opacities remain. Head MRI 01/16/18 06:37 CONCLUSION: 1. 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 2. There is no restricted diffusion to suggest extension of or new infarct. Chest X-Ray 01/17/18 06:00 CONCLUSION: 1. Mild residual lucency along the medial upper lobes which most characteristic of residual pneumomediastinum. 2. There is no definite pneumothorax. 3. The smallbore left-sided chest tube remains in place. Previously noted right -sided chest tube is not well visualized. 4. Hazy opacity throughout both lungs without significant change. Assessment and Plan - Assessment (1) Elevated troponin Code(s): R74.8 - Abnormal levels of other serum enzymes Status: Acute Plan: Cardiac status overall stable. Hemodynamically stable. Echo technically very difficult, suggests normal left ventricular function. Rising renal indices. Patient currently very poor candidate for invasive cardiac evaluation with severe renal insufficiency, severe thrombocytopenia, comorbid conditions, severe anemia. REC continue supportive care, beta cristian therapy. Agree with holding aspirin with thrombocytopenia. OK to stop heparin from my standpoint. Will f/u PRN. - Plan Code Status: full code
[2018-01-17] MEDS: Chlorhexidine 0.12% Oral Kit 15 ML UDC OROPHARYNG SCH ×2 (08:08→20:41)
[2018-01-17] MEDS: Senna/Docusate Sodium 8.6/50 MG Tablet PO SCH ×2 (08:09→20:42)
[2018-01-17 08:12] LABS: Lymphocytes 1 % (9-44); Monocytes 3 % (0-8); Platelet Morphology Normal (Normal); Tallied Nucleated RBC 1 (0-0)
[2018-01-17 08:13] LABS: RBC Morphology Normal (Normal)
[2018-01-17] MEDS ORDERED: Calcium Chloride Inj 1 GM in Sodium Chlor 0.9% Inj 100 ML IV.SIG ONE (09:13)
[2018-01-17] MEDS: fentaNYL 10 mcg/mL Premix Drip 2,500 MCG/250 ML BAG IV.SIG PRN (09:14)
[2018-01-17] MEDS: Multivitamin Inj 10 ML, Thiamine Inj 100 MG, Folic Acid Inj 1 MG in Sodium Chlor 0.9% I... IV.SIG SCH (09:14)
--- NOTE | 2018-01-17 09:50 | P.PNCC ---
Subjective Subjective Remarks/Hospital Course: 62-year-old male patient presents because he was found down by family, on evaluation by EMS he had notable seizures, and they had tried Versed without success, he was vomiting dark material. They tried to intubate him for airway protection, but were unable to intubate him. However, the seizures had stopped at that point. He was obtunded in the ER and was intubated by ED attending. Shortly after intubation patient lost his pulses and CPR was initiated. He has regained spontaneous circulation after 2 cycles of CPR and injections of epinephrine. There was significant subcutaneous emphysema noticed and the patient was rushed to CT for the CT of the head chest and abdomen that showed large bilateral pneumothoraces, as well as free air in peritoneal cavity. Bilateral chest tubes were placed immediately in the emergency department. The free air in the peritoneum with was discussed with the surgeon examination grader Dr. Jimenez. It was felt the air in abdominal cavity is more likely leak from the chest cavity from bilateral tension pneumothoraces and observation without emergent surgical intervention was recommended. The patient was transferred to ICU where he suffered another cardiac arrest. He has regained again spontaneous circulation post 2 cycles of CPR, 2 A of sodium bicarb and 2 A of epinephrine. The patient's was updated about the critical condition at the bedside. 01/15: Patient remains critically ill on max dose of norepinephrine, vasopressin , and epinephrine. His oxygenation overnight has somehow improved with Flolan infusion, however still requiring aggressive APRV mode of ventilation. 01/16: Off all vasopressors. Oxygenation stable. Switch from AP RV to WA VC. Will attempt MRI brain due to neglect and left sided weakness exam. CT thorax with oral contrast to rule out esophageal perforation. Recheck abdomen pelvis today. Remains on fluconazole, piperacillin/tazobactam and, vancomycin infectious disease. Heparin drip discontinued secondary to acute drop in platelets. Fibrinogen pending. Haptoglobin LDH and smear pending. Subjective 01/17: Afebrile. Remains off all vasopressors. Minimal urine output overnight. Plan for hemodialysis today once platelets arrived. Minimal output from chest tubes bilaterally. FiO2 down to 40%. PEEP down to 10. Objective Vital Signs / I&O: Vital Signs 01/16/18 09:51 01/16/18 10:00 01/16/18 10:30 Temperature Pulse Rate 81 78 Respiratory Rate 18 18 Blood Pressure 147/83 H 144/78 H Pulse Oximetry 98 99 99 01/16/18 11:00 01/16/18 11:31 01/16/18 11:36 Temperature Pulse Rate 104 H 84 Respiratory Rate 17 16 Blood Pressure 152/93 H Pulse Oximetry 95 98 01/16/18 12:00 01/16/18 12:03 01/16/18 12:10 Temperature 98.8 F Pulse Rate 90 90 Respiratory Rate 10 L 13 Blood Pressure 155/88 H 159/96 H Pulse Oximetry 99 100 01/16/18 12:15 01/16/18 12:20 01/16/18 12:22 Temperature Pulse Rate 95 H 92 H Respiratory Rate 26 H 18 Blood Pressure 153/91 H 184/93 H Pulse Oximetry 100 100 100 01/16/18 12:25 01/16/18 12:26 01/16/18 13:00 Temperature Pulse Rate 81 81 74 Respiratory Rate 19 18 18 Blood Pressure 139/81 134/86 Pulse Oximetry 100 98 98 01/16/18 14:00 01/16/18 15:00 01/16/18 15:29 Temperature Pulse Rate 72 75 Respiratory Rate 18 18 19 Blood Pressure 134/85 120/78 Pulse Oximetry 100 99 98 01/16/18 16:00 01/16/18 17:00 01/16/18 18:00 Temperature 98.8 F Pulse Rate 75 80 77 Respiratory Rate 18 18 18 Blood Pressure 115/77 117/77 Pulse Oximetry 97 96 96 01/16/18 19:00 01/16/18 20:00 01/16/18 21:00 Temperature 97.9 F Pulse Rate 76 74 72 Respiratory Rate 18 18 18 Blood Pressure 115/74 122/79 123/78 Pulse Oximetry 97 98 98 01/16/18 21:04 01/16/18 21:07 01/16/18 21:14 Temperature 98.1 F 98.6 F Pulse Rate 73 72 Respiratory Rate 18 18 Blood Pressure 123/78 123/78 Pulse Oximetry 98 97 01/16/18 22:00 01/16/18 23:00 01/16/18 23:37 Temperature 98.5 F Pulse Rate 71 71 68 Respiratory Rate 18 18 18 Blood Pressure 125/79 130/84 130/84 Pulse Oximetry 98 98 98 01/17/18 00:00 01/17/18 00:39 01/17/18 01:00 Temperature 98.5 F Pulse Rate 69 73 69 Respiratory Rate 18 18 18 Blood Pressure 129/83 121/78 Pulse Oximetry 98 94 L 97 01/17/18 02:00 01/17/18 03:00 01/17/18 04:00 Temperature 98.5 F Pulse Rate 71 76 66 Respiratory Rate 18 18 18 Blood Pressure 116/73 119/76 125/80 Pulse Oximetry 95 95 95 01/17/18 04:21 01/17/18 05:00 01/17/18 06:00 Temperature Pulse Rate 65 65 66 Respiratory Rate 18 18 18 Blood Pressure 136/88 131/81 Pulse Oximetry 96 97 96 01/17/18 08:00 01/17/18 08:12 Temperature Pulse Rate 65 Respiratory Rate 18 18 Blood Pressure Pulse Oximetry 94 L Intake & Output 01/16/18 01/17/18 01/17/18 18:59 06:59 18:59 Intake Total 4308.5 / 4308.5 1230 / 1230 250 / 250 Output Total 230 / 230 74 / 74 Balance 4078.5 / 4078.5 1156 / 1156 250 / 250 Weight 123 kg Intake: IV 4248.5 / 4248.5 705 / 705 250 / 250 Heparin/D5W 25,000 U/250 mL 25, 66.3 / 66.3 000 unit In 250 ml @ 1,000 UNITS/HR 10 mls/hr IV.CONT TITRATE PRN Rx#:[id number] Versed Inj 50 mg In 50 ml @ 2 50 / 50 50 / 50 MG/HR 2 mls/hr IV.CONT TITRATE PRN Rx#:[id number] NS Inj 1,000 ML @ 84 mls/hr IV. 1260 / 1260 CONT .[id number] [facility] Rx#:[id number] Sodium Bicarbonate 8.4% Inj 150 570 / 570 MEQ In Sterile Water for Inj 850 ML @ 150 mls/hr IV.CONT . Q6H40M [facility] Rx#:[id number] Alburx 5% Inj 500 ML @ 250 mls/ 500 / 500 hr IV.SIG Q6H [facility] Rx#:[id number] Calcium Chloride Inj 2 GM In NS 120 / 120 Inj 100 ML @ 120 mls/hr IV.SIG ONCE ONE Rx#:[id number] Diflucan 400 mg Premix Bag 200 200 / 200 ML @ 100 mls/hr IV.SIG Q24H [facility] Rx#:[id number] MVI-12 Inj 10 ML Thiamine Inj 511.2 / 511.2 100 MG Folvite Inj 1 MG In NS Inj 500 ML @ 125 mls/hr IV.SIG Q24H [facility] Rx#:[id number] Zosyn 3.375 GM Premix 50 ML @ 100 / 100 100 / 100 100 mls/hr IV.SIG Q6H [facility] Rx#: [id number] Vancomycin Inj 1,500 MG In NS 515 / 515 Inj 500 ML @ 257.5 mls/hr IV. SIG ONCE ONE Rx#:[id number] fentaNYL 10 mcg/mL Premix Drip 250 / 250 250 / 250 250 / 250 2,500 mcg In 250 ml @ 50 MCG/HR 5 mls/hr IV.SIG TITRATE PRN Rx #:[id number] Keppra Inj 500 MG In NS Inj 100 105 / 105 105 / 105 ML @ 400 mls/hr IV.SIG Q12H [facility] Rx#:[id number] Flolan (30,000 ng/mL) Neb 80 ML 1 / 1 200 / 200 In NS Inj 20 ML @ 5 mls/hr NEB Q8H [facility] Rx#:[id number] Tube Feeding 65 / 65 Water Bolus Amount 60 / 60 60 / 60 Intake (Blood Product) Amt 400 / 400 Rbc As-3 Leukoreduced Unit 400 / 400 [id number] Output: Urine Amount (Catheter) 50 / 50 60 / 60 Indwelling Temp Sensing 50 / 50 60 / 60 Catheter Chest Tube Drainage 180 / 180 #1 Left Pleural 30 30 4 / 4 #2 Right Pleural 150 / 150 10 / 10 Other: Date of Last Bowel Movement 01/15/18 01/17/18 # Bowel Movements 1 2 Result Diagrams: 01/17/18 05:30 01/17/18 05:30 Other Results: Microbiology 01/16/18 17:30 Stool Stool Occult Blood (GINA) - Final Hemoccult positive 01/15/18 03:30 Blood - Peripheral Aerobic Blood Culture - Preliminary No growth in 1 day 01/15/18 03:30 Blood - Peripheral Anaerobic Blood Culture - Preliminary No growth in 1 day 01/15/18 03:39 Blood - Peripheral Aerobic Blood Culture - Preliminary No growth in 1 day 01/15/18 03:39 Blood - Peripheral Anaerobic Blood Culture - Preliminary No growth in 1 day Imaging: Cervical Spine CT 01/14/18 21:58 CONCLUSION: 1. No acute fracture or malalignment. 2. Subcutaneous emphysema again noted as well as the known right pneumothorax. Chest X-Ray 01/14/18 21:58 CONCLUSION: 1. ET tube in good position. 2. Subcutaneous emphysema clavicular and chest wall region. 3. Probable pneumomediastinum. Head CT 01/14/18 21:58 CONCLUSION: 1. No acute hemorrhage or mass effect. 2. Stable area of encephalomalacia in the right lateral lobe. . Chest CT 01/14/18 22:54 CONCLUSION: 1. Bilateral pneumothoraces right greater than left. 2. Apparent pneumomediastinum with gas also dissecting into the right side of the retroperitoneum and anterior to the right kidney. 3. Linear collections of gas along the anterior inner abdominal wall which could represent collections of dissected free air. Subcutaneous emphysema is also noted. 4. Consolidation in both posterior lung bases and posterior hilar regions. 5. Small right pleural effusion. 6. Suboptimal study secondary to extensive motion artifact. This limits the sensitivity. These findings were called to the emergency room physician immediately after the study was performed. Abdomen X-Ray 01/15/18 00:00 CONCLUSION: 1. No free intraperitoneal air. 2. Residual small pneumothoraces with small chest tubes in place. Chest X-Ray 01/15/18 00:03 CONCLUSION: 1. Interval placement of bilateral small bore chest tubes. 2. Interval placement nasogastric tube and right subclavian central venous line. 3. There is consolidation again noted in both perihilar regions and retrocardiac region. 4. Small apparent residual right pneumothorax and pneumomediastinum again noted. Chest X-Ray 01/15/18 02:18 CONCLUSION: 1. Optimal examination mild motion artifact. 2. The right sided chest tube is not well visualized on the current study there is a left-sided chest tube appears unchanged. 3. Bilateral subcutaneous emphysema right greater than left with abnormal lucency projected over portions of both upper lobes concern for residual pneumothoraces. 4. Dense consolidation again noted in both lungs. Abdomen/Bladder Ultrasound 01/16/18 00:00 CONCLUSION: 1. Trace ascites. 2. Negative renal ultrasound Abdomen/Pelvis CT 01/16/18 00:00 CONCLUSION: 1. Minimal free intraperitoneal air. I don't see etiology for such 2. Dense consolidation both lung bases with small bilateral chest tubes 3. Trace pneumothorax on the left. No pneumothorax on the right. 4. Moderate fatty replacement to the liver with prominent gallbladder Chest CT 01/16/18 00:00 . CONCLUSION: 1. Dense consolidation in both lung bases small bore chest tubes evident. 2. Trace pneumothorax on the left 3. No significant fluid. Chest X-Ray 01/16/18 00:00 CONCLUSION: 1. [Interval decrease in pneumothoraces and pneumomediastinum apparent mild residual medial left upper lobe. 2. Diffuse airspace opacities remain. Head MRI 01/16/18 06:37 CONCLUSION: 1. 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 2. There is no restricted diffusion to suggest extension of or new infarct. Chest X-Ray 01/17/18 06:00 CONCLUSION: 1. Mild residual lucency along the medial upper lobes which most characteristic of residual pneumomediastinum. 2. There is no definite pneumothorax. 3. The smallbore left-sided chest tube remains in place. Previously noted right -sided chest tube is not well visualized. 4. Hazy opacity throughout both lungs without significant change. Objective Remarks: GENERAL: 62-year-old male currently orotracheally treated with bilateral chest tubes critically ill SKIN: Warm and dry. No rash HEAD: Atraumatic. Normocephalic. EYES: Pupils equal and round. No scleral icterus. No injection or drainage. ENT: No nasal bleeding or discharge. Mucous membranes pink and moist. NECK: Trachea midline. No JVD. CARDIOVASCULAR: Regular rate and rhythm with ectopy. S1, S2. No murmur RESPIRATORY: Diminished breath sounds in the bases bilaterally. Crepitus improved subcutaneous emphysema. Bilateral pigtail chest tubes are in place at at -40 cmH2O GASTROINTESTINAL: Abdomen soft, non-tender, nondistended. Hypoactive bowel sounds appreciated. MUSCULOSKELETAL: Extremities without without significant peripheral edema. No obvious deformities. NEUROLOGICAL: Currently sedated on midazolam and fentanyl drips. Assessment and Plan - Assessment and Plan Plan: Neuro/Psych: Bipolar disorder History of right parietal CVA 2010 EtOH abuse Acute seizure Patient is currently on midazolam drip at 2 mg an hour and fentanyl drip at 50 mcg/h for sedation/analgesia while intubated Goal of RA SS -[address] brain admission revealed right parietal region encephalomalacia. EEG 01/15 revealed no epileptic activity. Slowing MRI brain ordered revealed stable right sylvian infarct/old. No acute findings Holding home medication gabapentin 300 mg twice daily and ketamine 50 mg daily and sertraline 50 mg daily Vitamin bag daily times 3 days. Monitor for DTs Remains on levetiracetam 500 mg IV twice daily CV: Non-STEMI Elevated troponin Severe shock resolving History of essential hypertension History of hyperlipidemia Evaluated by cardiology/Dr. Gomez Started on carvedilol 3.125 mg twice daily Holding valsartan 80 mg daily in light of acute kidney injury. Holding atorvastatin 20 mg daily in light of acute liver injury. 2D echocardiogram revealed EF 55-60%. Mild LVH. PAP 31 mmHg. Currently normal sinus rhythm no ectopy. Flowtrack reveals cardiac index around 2.4. Aspirin and heparin drip held due to severe thrombocytopenia Resp: Acute respiratory failure Bilateral pneumothoraces/pneumomediastinum Gastroesophageal reflux disease on pantoprazole at home WA VC. Rate of 18. Tidal volume around 550. I time 1.05. PEEP of 8. FiO2 of 50%. Remains on epoprostenol aerosolized Albuterol/ipratropium aerosols every 4 hours albuterol every 2 hours as needed dyspnea CT thorax revealed tiny left apical pneumothorax. Bilateral chest tubes in place. Dense consolidation bilateral lower lobes Chest x-ray today revealed improved subcutaneous emphysema/improvement of bilateral pneumothoraces. Unable to identify right chest tube Maintain chest tubes at -40 cmH2O. Left -34 cc at -40 cmH2O. Right -160 cc Monitor output On methylprednisolone succinate 40 mg IV every 8 hours GI: Elevated LFTs Pneumoperitoneum with right retroperitoneal gas/gas around the right kidney CT abdomen/pelvis revealed gas in the anterior mediastinum/right retrocrural peritoneal gas/stranding right kidney.. Repeat 01/16 revealed tiny intrarenal for note on no obvious source. In ED this case was discussed with Dr. Jimenez/on-call physician. Believe this was secondary to bilateral pneumothoraces. No surgical intervention. Check lactate and CPK now Recheck CT abdomen/pelvis now. Will likely initiate tube feeding if no signs of esophageal perforation on CT with contrast of thorax Would recommend Nepro in light of acute kidney injury Pantoprazole for GI prophylaxis Docusate sodium/senna 1 tablet twice daily for bowel regimen Ultrasound tests again revealed severe hepatic steatosis likely EtOH cirrhosis/ ischemia/CPK elevation. Check ammonia level : Og catheter has been placed for accurate I's and O's in a critically ill patient Endo: History of diabetes mellitus History of hypothyroidism Glimepiride 2 mg twice daily is currently on hold. Sliding scale insulin regular insulin to maintain euglycemia Restart levothyroxine 88 mcg daily. TSH was 0.611 Renal: Acute kidney injury Rhabdomyolysis Creatinine is currently around 5.6 with minimal urine output. Nephrology consultation ordered Renal ultrasound prophylaxis. Urine eosinophils negative, sodium and creatinine ordered. Avoid nephrotoxic medication Will likely need hemodialysis Heme: Normocytic anemia Acute thrombocytopenia Unlikely hit secondary to timeframe. Check haptoglobin/LDH and peripheral smear We will discontinue heparin drip in light of significant thrombocytopenia. Aspirin on hold. ID: Currently on piperacillin/tazobactam, vancomycin and fluconazole per infectious disease. For actively following Blood cultures no growth to date FEN: Acute hypocalcemia Hyperphosphatemia Replace electrolytes as clinically indicated 1 g calcium chloride IV x1 now. Discontinue bicarbonate drip due to elevated bicarbonate on BMP MSK: Elevated BMI Physical therapy evaluate and treat Weight loss encouraged Access -Right subclavian CVL day #4 placed /12 -Right brachial arterial line day #3 placed 01/15 Prophylaxis -GI-pantoprazole -DVT-SCD/holding pharmacological prophylaxis in light of severe thrombocytopenia Critical care time 35 minutes
--- NOTE | 2018-01-17 10:33 | P.PCN ---
Date of procedure: 01/17/18 Pre-op diagnosis: Acute renal failure Post-op diagnosis: same Procedure: DATE: 01/17/2018 Hemodialysis catheter PLACEMENT: Left internal jugular vein. Ultrasound-guided INDICATION: Central venous access CONSENT Informed consent for procedure was obtained from . DESCRIPTION OF THE PROCEDURE The patient was placed in supine position. The skin was cleansed with Chloraprep. Additional barrier precautions included large sterile drape, sterile gloves, sterile gown, face mask, and hat. 1 % lidocaine was used for local anesthesia. Under direct ultrasound guidance and on initial attempt, the vein was accessed with an introducer needle. The guide wire was advanced and the tract was dilated x4. Using Seldinger technique a 14 [place] 20 c hemodialysis catheter was advanced to a depth of 20 centimeters. The guide wire was removed. All ports had good return of dark venous blood and flushed easily with saline. The central line was secured with 2.0 silk. A sterile dressing with antibiotic disc was applied. ESTIMATED BLOOD LOSS: Minimal COMPLICATIONS: No apparent complications. STAT chest x-ray pending at time of dictation
[2018-01-17] MEDS ORDERED: Sod Chloride 0.9% Inj 1,000 ML OTHER PRN ×2 (10:39)
[2018-01-17] MEDS ORDERED: Sod Chloride 0.9% Inj 1,000 ML IV.CONT PRN (10:39)
[2018-01-17] MEDS ORDERED: Gelatin 12 MM/7 MM Topical Foam TOPICAL PRN (10:39)
[2018-01-17] MEDS ORDERED: Heparin 10,000 UNITS/10 ML Vial (for IV use) OTHER PRN (10:39)
--- NOTE | 2018-01-17 10:58 | XR ---
EXAM DATE: 01/17/2018 10:51 AM EST AGE/SEX: 62 years / Male INDICATIONS: Left vas catheter placement. CLINICAL DATA: This is the patient's subsequent encounter. Patient reports that signs and symptoms h ave been present for 3 days and indicates a pain score of Nonresponsive. MEDICAL/SURGICAL HISTORY: Non-responsive. Non-responsive. COMPARISON: C, CHEST 1V SINGLE AP, 01/17/2018. . FINDINGS: The endotracheal tube has its tip 3 cm above the alberto. A nasogastric tube has tip below diaphragm. Right subclavian central line has its tip in superior vena cava. Left internal jugular Vas-Cath has i ts tip in superior vena cava. No pneumothorax is noted. Bilateral chest tubes are stable. Diffuse pul monary infiltrates are noted consistent with severe pulmonary edema versus pneumonia. The heart is en larged. CONCLUSION: 1. No pneumothorax status post placement of left internal jugular Vas-Cath which has its tip in supe rior vena cava. 2. Diffuse pulmonary infiltrates consistent with severe pulmonary edema versus pneumonia. 3. Multiple other tubes and lines are stable. 4. Cardiomegaly. Electronically signed by: Darnell Dang MD 01/17/2018 10:56 AM EST
[2018-01-17] MEDS ORDERED: Epoprostenol (30,000/mL) Neb 40 ML in Sodium Chlor 0.9% Inj 60 ML NEB SCH (13:00)
--- NOTE | 2018-01-17 14:29 | P.PNNP ---
Subjective Interval history: Patient remains ventilatory dependent and oliguric. Nonverbal. Physical Exam Vital signs: Vital Signs 01/16/18 15:00 01/16/18 15:29 01/16/18 16:00 Temperature 98.8 F Pulse Rate 75 75 Respiratory Rate 18 19 18 Blood Pressure 120/78 115/77 Pulse Oximetry 99 98 97 01/16/18 17:00 01/16/18 18:00 01/16/18 19:00 Temperature Pulse Rate 80 77 76 Respiratory Rate 18 18 18 Blood Pressure 117/77 115/74 Pulse Oximetry 96 96 97 01/16/18 20:00 01/16/18 21:00 01/16/18 21:04 Temperature 97.9 F Pulse Rate 74 72 73 Respiratory Rate 18 18 18 Blood Pressure 122/79 123/78 123/78 Pulse Oximetry 98 98 98 01/16/18 21:07 01/16/18 21:14 01/16/18 22:00 Temperature 98.1 F 98.6 F Pulse Rate 72 71 Respiratory Rate 18 18 Blood Pressure 123/78 125/79 Pulse Oximetry 97 98 01/16/18 23:00 01/16/18 23:37 01/17/18 00:00 Temperature 98.5 F 98.5 F Pulse Rate 71 68 69 Respiratory Rate 18 18 18 Blood Pressure 130/84 130/84 129/83 Pulse Oximetry 98 98 98 01/17/18 00:39 01/17/18 01:00 01/17/18 02:00 Temperature Pulse Rate 73 69 71 Respiratory Rate 18 18 18 Blood Pressure 121/78 116/73 Pulse Oximetry 94 L 97 95 01/17/18 03:00 01/17/18 04:00 01/17/18 04:21 Temperature 98.5 F Pulse Rate 76 66 65 Respiratory Rate 18 18 18 Blood Pressure 119/76 125/80 Pulse Oximetry 95 95 96 01/17/18 05:00 01/17/18 06:00 01/17/18 07:00 Temperature 98.7 F Pulse Rate 65 66 71 Respiratory Rate 18 18 18 Blood Pressure 136/88 131/81 112/70 Pulse Oximetry 97 96 94 L 01/17/18 08:00 01/17/18 08:12 01/17/18 09:00 Temperature Pulse Rate 67 65 65 Respiratory Rate 18 18 18 Blood Pressure 122/78 137/85 Pulse Oximetry 96 96 01/17/18 10:00 01/17/18 10:02 01/17/18 11:00 Temperature 98.5 F Pulse Rate 71 73 64 Respiratory Rate 18 20 18 Blood Pressure 127/83 129/81 140/86 Pulse Oximetry 97 88 L 99 01/17/18 12:00 Temperature 98.4 F Pulse Rate 66 Respiratory Rate 18 Blood Pressure 139/85 Pulse Oximetry 99 Intake & Output 01/16/18 01/17/18 01/17/18 18:59 06:59 18:59 Intake Total 4308.5 / 4308.5 1230 / 1230 1008.2 / 1008.2 Output Total 230 / 230 74 / 74 Balance 4078.5 / 4078.5 1156 / 1156 1008.2 / 1008.2 Weight 123 kg Intake: IV 4248.5 / 4248.5 705 / 705 811.2 / 811.2 Heparin/D5W 25,000 U/250 mL 25, 66.3 / 66.3 000 unit In 250 ml @ 1,000 UNITS/HR 10 mls/hr IV.CONT TITRATE PRN Rx#:[id number] Versed Inj 50 mg In 50 ml @ 2 50 / 50 50 / 50 MG/HR 2 mls/hr IV.CONT TITRATE PRN Rx#:[id number] NS Inj 1,000 ML @ 84 mls/hr IV. 1260 / 1260 CONT .[id number] [facility] Rx#:[id number] Sodium Bicarbonate 8.4% Inj 150 570 / 570 MEQ In Sterile Water for Inj 850 ML @ 150 mls/hr IV.CONT . Q6H40M [facility] Rx#:[id number] Alburx 5% Inj 500 ML @ 250 mls/ 500 / 500 hr IV.SIG Q6H [facility] Rx#:[id number] Calcium Chloride Inj 2 GM In NS 120 / 120 Inj 100 ML @ 120 mls/hr IV.SIG ONCE ONE Rx#:[id number] Diflucan 400 mg Premix Bag 200 200 / 200 ML @ 100 mls/hr IV.SIG Q24H [facility] Rx#:[id number] MVI-12 Inj 10 ML Thiamine Inj 511.2 / 511.2 511.2 / 511.2 100 MG Folvite Inj 1 MG In NS Inj 500 ML @ 125 mls/hr IV.SIG Q24H [facility] Rx#:[id number] Zosyn 3.375 GM Premix 50 ML @ 100 / 100 100 / 100 50 / 50 100 mls/hr IV.SIG Q6H [facility] Rx#: [id number] Vancomycin Inj 1,500 MG In NS 515 / 515 Inj 500 ML @ 257.5 mls/hr IV. SIG ONCE ONE Rx#:[id number] fentaNYL 10 mcg/mL Premix Drip 250 / 250 250 / 250 250 / 250 2,500 mcg In 250 ml @ 50 MCG/HR 5 mls/hr IV.SIG TITRATE PRN Rx #:[id number] Keppra Inj 500 MG In NS Inj 100 105 / 105 105 / 105 ML @ 400 mls/hr IV.SIG Q12H [facility] Rx#:[id number] Flolan (30,000 ng/mL) Neb 80 ML 1 / 1 200 / 200 In NS Inj 20 ML @ 5 mls/hr NEB Q8H [facility] Rx#:[id number] Tube Feeding 65 / 65 Water Bolus Amount 60 / 60 60 / 60 Intake (Blood Product) Amt 400 / 400 197 / 197 Plt Pheresis A Leukored Pas 197 / 197 Unit [id number] Rbc As-3 Leukoreduced Unit 400 / 400 [id number] Output: Urine Amount (Catheter) 50 / 50 60 / 60 Indwelling Temp Sensing 50 / 50 60 / 60 Catheter Chest Tube Drainage 180 / 180 14 / 14 #1 Left Pleural 30 / 30 4 / 4 #2 Right Pleural 150 / 150 10 / 10 Other: Date of Last Bowel Movement 01/15/18 01/17/18 01/17/18 # Bowel Movements 1 2 Narrative: GENERAL: Obese male lying in bed with an ET tube in place on ventilatory support. SKIN: Warm and dry. HEAD: Normocephalic. Periorbital edema. EYES: No scleral icterus. No injection or drainage. NECK: Supple, trachea midline. No JVD . CARDIOVASCULAR: Regular rate and rhythm without murmurs, gallops, or rubs. RESPIRATORY: Breath sounds equal bilaterally. No accessory muscle use. GASTROINTESTINAL: Abdomen soft, non-tender, distended but not tender. MUSCULOSKELETAL: No cyanosis, 2-3+ edema of the limbs. Dependent hip edema. BACK: Nontender without obvious deformity. No CVA tenderness. - Urinary Catheter Management Indwelling Temp Sensing Catheter Cath placed during this visit: yes Reason for continuing: Other continuation reason Insertion date: 01/14/18 Insertion time: 22:00 Assessment and Plan - Assessment (1) Acute renal failure Code(s): N17.9 - Acute kidney failure, unspecified Status: Acute Plan: Unfortunately patient has progressive azotemia with poor urine output and significant fluid retention. Also evidence of a mild metabolic acidosis. Do not anticipate any improvement in renal indices short-term. Renal failure appears to be related to rhabdomyolysis and probable superimposed ATN secondary to previous shock syndrome. We will proceed with dialytic support as discussed with the was in agreement. She was advised by myself yesterday that dialysis is indicated as renal replacement and will not improve his renal function per se. It also remains to be determined whether or not renal recovery will occur or if he will survive. We will try to improve his volume status also with ultrafiltration. Patient is critically ill with a guarded prognosis. Dialysis orders were entered and discussed with the dialysis. Medications should be adjusted for the patient's estimated GFR if clinically indicated. Avoid agents with significant potential for nephrotoxicity possible including NSAIDs for analgesia, iodine contrast agents. Gadolinium is contraindicated if the GFR is below 30. (2) Alcohol abuse Code(s): F10.10 - Alcohol abuse, uncomplicated Status: Acute (3) Alcohol withdrawal seizure with complication Code(s): F10.239 - Alcohol dependence with withdrawal, unspecified; R56.9 - Unspecified convulsions Status: Acute (4) Rhabdomyolysis Code(s): M62.82 - Rhabdomyolysis Status: Acute Plan: Related to previous seizure.
[2018-01-17] MEDS: hydrALAZINE HCl Inj 20 MG/ML Vial IV.PUSH PRN (16:36)
--- NOTE | 2018-01-17 20:17 | P.PNADD ---
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
[2018-01-17] MEDS ORDERED: Epoprostenol (30,000/mL) Neb 20 ML in Sodium Chlor 0.9% Inj 80 ML NEB SCH (21:00)
[2018-01-17 22:01] LABS: Hepatitis A IgM Antibody Nonreactive (Nonreactive); Hepatitits B Surface Antigen Nonreactive (Nonreactive)
--- NOTE | 2018-01-17 23:46 | P.PNID ---
Subjective Remarks: seen during HD pt makes no urine off pressors no fever Nl WBC all cultures negative to date tolerates TF CT A/P with mnimal free air Antibiotics: zosyn fluconazl Allergies/Adverse Reactions: Allergies erythromycin base Allergy (Severe, Verified 01/14/18 03:00) Hives penicillin G Allergy (Severe, Verified 01/14/18 03:00) Hives Objective Vital Signs 01/17/18 00:00 01/17/18 00:39 01/17/18 01:00 Temperature 98.5 F Pulse Rate 69 73 69 Respiratory Rate 18 18 18 Blood Pressure 129/83 121/78 Pulse Oximetry 98 94 L 97 01/17/18 02:00 01/17/18 03:00 01/17/18 04:00 Temperature 98.5 F Pulse Rate 71 76 66 Respiratory Rate 18 18 18 Blood Pressure 116/73 119/76 125/80 Pulse Oximetry 95 95 95 01/17/18 04:21 01/17/18 05:00 01/17/18 06:00 Temperature Pulse Rate 65 65 66 Respiratory Rate 18 18 18 Blood Pressure 136/88 131/81 Pulse Oximetry 96 97 96 01/17/18 07:00 01/17/18 08:00 01/17/18 08:12 Temperature 98.5 F Pulse Rate 71 67 65 Respiratory Rate 18 18 18 Blood Pressure 112/70 122/78 Pulse Oximetry 94 L 94 L 01/17/18 09:00 01/17/18 10:00 01/17/18 10:02 Temperature 98.9 F 98.5 F Pulse Rate 65 71 73 Respiratory Rate 18 18 20 Blood Pressure 137/85 127/83 129/81 Pulse Oximetry 96 89 L 88 L 01/17/18 11:00 01/17/18 11:45 01/17/18 12:00 Temperature 98.4 F Pulse Rate 64 63 66 Respiratory Rate 18 18 18 Blood Pressure 140/86 139/85 Pulse Oximetry 99 99 94 L 01/17/18 13:00 01/17/18 14:00 01/17/18 15:00 Temperature Pulse Rate 68 62 62 Respiratory Rate 18 18 18 Blood Pressure 131/82 161/97 H 153/92 H Pulse Oximetry 93 L 96 97 01/17/18 16:00 01/17/18 16:12 01/17/18 17:00 Temperature 98.6 F Pulse Rate 63 61 80 Respiratory Rate 18 16 18 Blood Pressure 154/94 H 130/81 Pulse Oximetry 97 97 92 L 01/17/18 18:00 01/17/18 19:00 01/17/18 19:46 Temperature 98.5 F Pulse Rate 61 60 Respiratory Rate 18 18 19 Blood Pressure 126/78 123/79 Pulse Oximetry 95 95 97 01/17/18 19:53 01/17/18 20:00 01/17/18 21:00 Temperature Pulse Rate 65 81 59 L Respiratory Rate 18 18 Blood Pressure 127/80 126/80 Pulse Oximetry 92 L 94 L Intake & Output 01/17/18 01/17/18 01/18/18 06:59 18:59 06:59 Intake Total 1230 / 1230 1273.2 / 1273.2 485 / 485 Output Total 74 / 74 56 / 56 3000 / 3000 Balance 1156 / 1156 1217.2 / 1217.2 -2515 / -2515 Weight 123 kg Intake: IV 705 / 705 966.2 / 966.2 485 / 485 Versed Inj 50 mg In 50 ml @ 2 50 / 50 25 / 25 MG/HR 2 mls/hr IV.CONT TITRATE PRN Rx#:[id number] Calcium Chloride Inj 1 GM In NS 110 / 110 Inj 100 ML @ 110 mls/hr IV.SIG ONCE ONE Rx#:[id number] Diflucan 400 mg Premix Bag 200 200 / 200 ML @ 100 mls/hr IV.SIG Q24H [facility] Rx#:[id number] MVI-12 Inj 10 ML Thiamine Inj 511.2 / 511.2 100 MG Folvite Inj 1 MG In NS Inj 500 ML @ 125 mls/hr IV.SIG Q24H [facility] Rx#:[id number] Zosyn 3.375 GM Premix 50 ML @ 100 / 100 100 / 100 50 / 50 100 mls/hr IV.SIG Q6H [facility] Rx#: [id number] fentaNYL 10 mcg/mL Premix Drip 250 / 250 250 / 250 2,500 mcg In 250 ml @ 50 MCG/HR 5 mls/hr IV.SIG TITRATE PRN Rx #:[id number] Keppra Inj 500 MG In NS Inj 100 105 / 105 105 / 105 ML @ 400 mls/hr IV.SIG Q12H [facility] Rx#:[id number] Flolan (30,000 ng/mL) Neb 60 ML 200 / 200 100 / 100 In NS Inj 40 ML @ 5 mls/hr NEB Q8H [facility] Rx#:[id number] Tube Feeding 65 / 65 110 / 110 Water Bolus Amount 60 / 60 Intake (Blood Product) Amt 400 / 400 197 / 197 Plt Pheresis A Leukored Pas 197 / 197 Unit [id number] Rbc As-3 Leukoreduced Unit 400 / 400 [id number] Output: Urine 40 / 40 Hemodialysis Amount 3000 / 3000 Urine Amount (Catheter) 60 / 60 Indwelling Temp Sensing 60 / 60 Catheter Chest Tube Drainage #1 Left Pleural 4 / 4 6 #2 Right Pleural Other: Date of Last Bowel Movement 01/17/18 01/17/18 # Bowel Movements 2 0 01/15/18 03:30 Blood - Peripheral Aerobic Blood Culture - Preliminary No growth in 2 days 01/15/18 03:30 Blood - Peripheral Anaerobic Blood Culture - Preliminary No growth in 2 days 01/15/18 03:39 Blood - Peripheral Aerobic Blood Culture - Preliminary No growth in 2 days 01/15/18 03:39 Blood - Peripheral Anaerobic Blood Culture - Preliminary No growth in 2 days 01/16/18 17:30 Stool Stool Occult Blood (GINA) - Final Hemoccult positive Lab - Hematology Results 01/16/18 01/16/18 01/16/18 05:05 05:05 08:10 WBC 5.3 RBC 2.61 L Hgb 8.1 L D Hct 23.0 L MCV 88.0 D MCH 31.2 MCHC 35.4 RDW 14.6 Plt Count 26 L D MPV 8.6 Prelim Diff (Auto) Slide review pending Neut % (Auto) 93.6 H Lymph % (Auto) 4.2 L Fannin % (Auto) 1.4 Eos % (Auto) 0.7 Baso % (Auto) 0.1 Neut # (Auto) 5.0 Lymph # (Auto) 0.2 L F[place] # (Auto) 0.1 Eos # (Auto) 0.0 Baso # (Auto) 0.0 WBC Differential Manual diff final Seg Neuts % (Manual) 29 Band Neuts % (Manual) 56 H Lymphocytes % (Manual) 11 Monocytes % (Manual) 1 Metamyelocytes % (Man) 2 H Myelocytes % (Man) 1 H Abs Neuts (Manual) 4.7 Nucleated RBCs/100 WBC Differential Comment . Platelet Estimate Low L Platelet Morphology Normal RBC Morphology Smear Path Review Haptoglobin 143 01/16/18 01/16/18 01/16/18 14:30 17:12 18:00 WBC RBC Hgb 7.8 L 7.2 L Hct 22.8 L 20.9 L* MCV MCH MCHC RDW Plt Count 24 L MPV Prelim Diff (Auto) Neut % (Auto) Lymph % (Auto) Fannin % (Auto) Eos % (Auto) Baso % (Auto) Neut # (Auto) Lymph # (Auto) Fannin # (Auto) Eos # (Auto) Baso # (Auto) WBC Differential Seg Neuts % (Manual) Band Neuts % (Manual) Lymphocytes % (Manual) Monocytes % (Manual) Metamyelocytes % (Man) Myelocytes % (Man) Abs Neuts (Manual) Nucleated RBCs/100 WBC Differential Comment Platelet Estimate Platelet Morphology RBC Morphology Smear Path Review Haptoglobin 01/17/18 01/17/18 00:40 05:30 WBC 5.9 RBC 2.70 L Hgb 8.2 L 8.3 L Hct 23.4 L 24.5 L MCV 90.9 MCH 30.8 MCHC 33.9 RDW 14.2 Plt Count 27 L MPV 10.2 Prelim Diff (Auto) Slide review pending Neut % (Auto) 92.4 H Lymph % (Auto) 4.7 L Fann[place] % (Auto) 2.7 Eos % (Auto) 0.1 Baso % (Auto) 0.1 Neut # (Auto) 5.5 Lymph # (Auto) 0.3 L Fannin # (Auto) 0.2 Eos # (Auto) 0.0 Baso # (Auto) 0.0 WBC Differential Manual diff final Seg Neuts % (Manual) 81 H Band Neuts % (Manual) 15 H Lymphocytes % (Manual) 1 L Monocytes % (Manual) 3 Metamyelocytes % (Man) Myelocytes % (Man) Abs Neuts (Manual) 5.7 Nucleated RBCs/100 WBC 1 H Differential Comment . Platelet Estimate Low L Platelet Morphology Normal RBC Morphology Normal Smear Path Review Haptoglobin Lab - Chemistry Results 01/16/18 01/16/18 01/16/18 00:05 05:05 05:07 Sodium 141 Potassium 3.0 L Chloride 94 L Carbon Dioxide 32.9 H D Anion Gap 14 BUN 39 H Creatinine 4.00 H Estimated GFR 15 L POC Glucose 194 H 119 H Random Glucose 129 H D Lactic Acid Calcium 5.6 L* Prot Corrected Calcium 6.1 L* Phosphorus 5.0 H D Magnesium 2.3 D Total Bilirubin 3.6 H Direct Bilirubin Indirect Bilirubin AST 7869 H ALT 1511 H Alkaline Phosphatase 91 Ammonia Lactate Dehydrogenase Total Creatine Kinase CK-MB (CK-2) CK-MB (CK-2) % Troponin I Total Protein 5.9 L Albumin 3.5 TSH 01/16/18 01/16/18 01/16/18 08:10 08:10 08:10 Sodium Potassium Chloride Carbon Dioxide Anion Gap BUN Creatinine Estimated GFR POC Glucose Random Glucose Lactic Acid 2.0 Calcium Prot Corrected Calcium Phosphorus Magnesium Total Bilirubin 3.6 H Direct Bilirubin 2.0 H Indirect Bilirubin 1.6 H AST ALT Alkaline Phosphatase Ammonia Lactate Dehydrogenase 5175 H Total Creatine Kinase CK-MB (CK-2) CK-MB (CK-2) % Troponin I 2.37 H* Total Protein Albumin [facility] 01/16/18 01/16/18 01/16/18 13:12 17:12 17:33 Sodium Potassium 3.4 L Chloride Carbon Dioxide Anion Gap BUN Creatinine Estimated GFR POC Glucose 141 H 146 H Random Glucose Lactic Acid Calcium Prot Corrected Calcium Phosphorus Magnesium Total Bilirubin Direct Bilirubin Indirect Bilirubin AST ALT Alkaline Phosphatase Ammonia Lactate Dehydrogenase Total Creatine Kinase 09716 H CK-MB (CK-2) 36.0 H CK-MB (CK-2) % 0.1 Troponin I Total Protein Albumin [facility] 01/17/18 01/17/18 01/17/18 00:16 05:06 05:30 Sodium 140 Potassium 3.6 Chloride 95 L Carbon Dioxide 23.7 D Anion Gap 21 H BUN 63 H Creatinine 5.87 H Estimated GFR 10 L POC Glucose 158 H 187 H Random Glucose 178 H Lactic Acid Calcium 6.3 L* Prot Corrected Calcium 6.9 L* D Phosphorus 7.8 H D Magnesium 2.2 Total Bilirubin 3.9 H Direct Bilirubin Indirect Bilirubin AST 6764 H ALT 1881 H Alkaline Phosphatase 90 Ammonia Lactate Dehydrogenase Total Creatine Kinase CK-MB (CK-2) CK-MB (CK-2) % Troponin I Total Protein 5.9 L Albumin 3.1 L TSH 0.612 01/17/18 01/17/1818 05:30 11:51 18:09 Sodium Potassium Chloride Carbon Dioxide Anion Gap BUN Creatinine Estimated GFR POC Glucose 231 H 174 H Random Glucose Lactic Acid Calcium Prot Corrected Calcium Phosphorus Magnesium Total Bilirubin Direct Bilirubin Indirect Bilirubin AST ALT Alkaline Phosphatase Ammonia 40 H Lactate Dehydrogenase Total Creatine Kinase CK-MB (CK-2) CK-MB (CK-2) % Troponin I Total Protein Albumin TSH 01/17/18 23:26 Sodium Potassium Chloride Carbon Dioxide Anion Gap BUN Creatinine Estimated GFR POC Glucose 237 H Random Glucose Lactic Acid Calcium Prot Corrected Calcium Phosphorus Magnesium Total Bilirubin Direct Bilirubin Indirect Bilirubin AST ALT Alkaline Phosphatase Ammonia Lactate Dehydrogenase Total Creatine Kinase CK-MB (CK-2) CK-MB (CK-2) % Troponin I Total Protein Albumin TSH Imaging: ITS Impressions Cervical Spine CT 01/14/18 21:58 CONCLUSION: 1. No acute fracture or malalignment. 2. Subcutaneous emphysema again noted as well as the known right pneumothorax. Head CT 01/14/18 21:58 CONCLUSION: 1. No acute hemorrhage or mass effect. 2. Stable area of encephalomalacia in the right lateral lobe. . Abdomen X-Ray 01/15/18 00:00 CONCLUSION: 1. No free intraperitoneal air. 2. Residual small pneumothoraces with small chest tubes in place. Abdomen/Bladder Ultrasound 01/16/18 00:00 CONCLUSION: 1. Trace ascites. 2. Negative renal ultrasound Abdomen/Pelvis CT 01/16/18 00:00 CONCLUSION: 1. Minimal free intraperitoneal air. I don't see etiology for such 2. Dense consolidation both lung bases with small bilateral chest tubes 3. Trace pneumothorax on the left. No pneumothorax on the right. 4. Moderate fatty replacement to the liver with prominent gallbladder Chest CT 01/16/18 00:00 . CONCLUSION: 1. Dense consolidation in both lung bases small bore chest tubes evident. 2. Trace pneumothorax on the left 3. No significant fluid. Head MRI 01/16/18 06:37 CONCLUSION: 1. 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 2. There is no restricted diffusion to suggest extension of or new infarct. Chest X-Ray 01/17/18 10:31 CONCLUSION: 1. No pneumothorax status post placement of left internal jugular Vas-Cath which has its tip in superior vena cava. 2. Diffuse pulmonary infiltrates consistent with severe pulmonary edema versus pneumonia. 3. Multiple other tubes and lines are stable. 4. Cardiomegaly. Physical Exam: GENERAL: sedated intubated. on vent SKIN: Warm and dry. HEAD: Atraumatic. Normocephalic. EYES: Pupils equal and round. No scleral icterus. No injection or drainage. ENT: No nasal bleeding or discharge. Mucous membranes pink and moist. NECK: Trachea midline. No JVD. + SQ empysema palpable CARDIOVASCULAR: Regular rate and rhythm. RESPIRATORY: No accessory muscle use. Clear to auscultation. Breath sounds equal bilaterally. GASTROINTESTINAL: Abdomen soft, no raction to palpation, +distended. Hepatic and splenic margins not palpable. MUSCULOSKELETAL: Extremities without clubbing, cyanosis, + 2 edema. No obvious deformities. NEUROLOGICAL: unresponsive PSYCHIATRIC: unable to assess Assessment and Plan - Plan Sepsis, septic shock on presentation: Lactic acidosis Leukocytosis, then leukopenia Multiorgan failuer Acute VDRF ARF Critical, unstable Aspiration PNA vs aspiration s/p seizure (ETOH withdrawl?) P t [id number] with vomiting Seen same day in ER and CT abd/pel done w/o acute findings Presented with pneumomediastinum and b/l pneumothoraces Ethiology of pneumomediastinum likelt traumatic CPR, no viscus perforation cont Sravan hester Fluconazol topher RN
[2018-01-18] MEDS: Midazolam 50 MG/50 ML Inj 50 MG/50 ML BAG IV.CONT PRN (00:01)
[2018-01-18] MEDS: Piperacil/Tazo 3.375 GM Premix 50 ML IV.SIG SCH ×2 (02:19→08:21)
[2018-01-18] MEDS: MethylPREDNISolone Sod Succinate Inj 40 MG/ML Vial IV.PUSH SCH ×3 (02:20→17:28)
[2018-01-18] MEDS: Pantoprazole Inj 40 MG Vial IV.PUSH SCH ×2 (02:20→13:35)
[2018-01-18 03:42] LABS: Baso % (Auto) 0.3 % (0.0-2.0); Eos % (Auto) 0.3 % (0.0-4.0); Hematocrit 24.4 % (39.0-51.0); Hemoglobin 8.5 gm/dL (13.0-17.0); Lymph # (Auto) 0.3 th/mm3 (1.0-4.8); Mean Corpuscular Hemoglobin 31.3 pg (27.0-34.0); Mean Corpuscular Volume 89.5 fL (80.0-100.0); Mean Platelet Volume 9.2 fL (7.0-11.0); Mono # (Auto) 0.3 th/mm3 (0.0-0.9); Neut # (Auto) 7.9 th/mm3 (1.8-7.7); Neut % (Auto) 91.4 % (16.0-70.0); Platelet Count 55 th/mm3 (150-450); Red Blood Count 2.73 mil/mm3 (4.50-5.90); Red Cell Distribution Width 14.1 % (11.6-17.2); White Blood Count 8.7 th/mm3 (4.0-11.0)
[2018-01-18] MEDS: fentaNYL 10 mcg/mL Premix Drip 2,500 MCG/250 ML BAG IV.SIG PRN (04:00)
[2018-01-18 04:25] LABS: Albumin 2.8 g/dL (3.4-5.0); Calcium 6.9 mg/dL (8.5-10.1); Carbon Dioxide 28.7 meq/L (21.0-32.0); Magnesium 2.1 mg/dL (1.5-2.5); Phosphorus 4.7 mg/dL (2.5-4.9); Potassium 3.2 meq/L (3.5-5.1); Total Protein 5.9 g/dL (6.4-8.2); Vancomycin,Random 20.3 Comment
[2018-01-18 04:44] LABS: CKMB Percent 0.1 % (0.0-4.0); Creatine Kinase MB 11.1 ng/mL (0.5-3.6)
[2018-01-18] MEDS: Chlorhexidine Gluconate 2% 1 Pack (2 Cloths) TOPICAL SCH (04:45)
[2018-01-18] MEDS: Oral Hygiene Kit OROPHARYNG SCH ×3 (04:45→15:45)
--- NOTE | 2018-01-18 04:50 | XR ---
EXAM DATE: 01/18/2018 4:24 AM EST AGE/SEX: 62 years / Male INDICATIONS: Pneumothorax. CLINICAL DATA: This is the patient's subsequent encounter. Patient reports that signs and symptoms h ave been present for 4 - 6 days and indicates a pain score of Nonresponsive. MEDICAL/SURGICAL HISTORY: . Hypertension. Cerebrovascular disease. Diabetes. . Chest tube, lef t. COMPARISON: C, CHEST 1V SINGLE AP, 01/17/2018. . FINDINGS: Diffuse airspace opacities with small bilateral pleural effusions are again noted and not significant ly changed. No pneumothorax is demonstrated. Endotracheal tube tip is approximately 3 cm above the alberto. Nasogastric tube courses into the stoma ch. There are right subclavian and left internal jugular central venous catheters with tips in the pepe perior vena cava. Heart size stable, upper limits of normal. CONCLUSION: Bilateral airspace opacities and small pleural effusions persist without significant change. Electronically signed by: Dionisio Poole MD 01/18/2018 4:48 AM EST
[2018-01-18] MEDS: Levothyroxine 88 MCG Tablet PO SCH (05:15)
[2018-01-18] MEDS: Insulin NovoLIN Regular Correctional Sugar Inj SQ SCH ×3 (05:15→18:38)
[2018-01-18] MEDS: hydrALAZINE HCl Inj 20 MG/ML Vial IV.PUSH PRN (05:15)
[2018-01-18] MEDS ORDERED: Calcium Chloride Inj 1 GM in Sodium Chlor 0.9% Inj 100 ML IV.SIG ONE (07:00)
[2018-01-18] MEDS ORDERED: Potassium Chlor 10 mEq Premix 10 MEQ/100 ML PIGGYBACK IV.SIG ONE (07:49)
[2018-01-18 08:04] LABS: Lymphocytes 7 % (9-44); Monocytes 2 % (0-8); Tallied Nucleated RBC 1 (0-0)
[2018-01-18 08:07] LABS: Dimorphic RBC Present; Toxic Granulation 1+
[2018-01-18] MEDS: Chlorhexidine 0.12% Oral Kit 15 ML UDC OROPHARYNG SCH ×2 (08:21→21:29)
[2018-01-18] MEDS: Artificial Tears Opth Drops 15 ML Bottle EACH EYE SCH ×2 (08:21→15:46)
[2018-01-18] MEDS: Senna/Docusate Sodium 8.6/50 MG Tablet PO SCH ×2 (08:21→21:30)
[2018-01-18] MEDS: Multivitamin Inj 10 ML, Thiamine Inj 100 MG, Folic Acid Inj 1 MG in Sodium Chlor 0.9% I... IV.SIG SCH (12:57)
--- NOTE | 2018-01-18 13:21 | P.PNCC ---
Subjective Subjective Remarks/Hospital Course: 62-year-old male patient presents because he was found down by family, on evaluation by EMS he had notable seizures, and they had tried Versed without success, he was vomiting dark material. They tried to intubate him for airway protection, but were unable to intubate him. However, the seizures had stopped at that point. He was obtunded in the ER and was intubated by ED attending. Shortly after intubation patient lost his pulses and CPR was initiated. He has regained spontaneous circulation after 2 cycles of CPR and injections of epinephrine. There was significant subcutaneous emphysema noticed and the patient was rushed to CT for the CT of the head chest and abdomen that showed large bilateral pneumothoraces, as well as free air in peritoneal cavity. Bilateral chest tubes were placed immediately in the emergency department. The free air in the peritoneum with was discussed with the surgeon contact lens blocker and cutter Dr. Jimenez. It was felt the air in abdominal cavity is more likely leak from the chest cavity from bilateral tension pneumothoraces and observation without emergent surgical intervention was recommended. The patient was transferred to ICU where he suffered another cardiac arrest. He has regained again spontaneous circulation post 2 cycles of CPR, 2 A of sodium bicarb and 2 A of epinephrine. The patient's was updated about the critical condition at the bedside. 01/15: Patient remains critically ill on max dose of norepinephrine, vasopressin , and epinephrine. His oxygenation overnight has somehow improved with Flolan infusion, however still requiring aggressive APRV mode of ventilation. 01/16: Off all vasopressors. Oxygenation stable. Switch from AP RV to NJ VC. Will attempt MRI brain due to neglect and left sided weakness exam. CT thorax with oral contrast to rule out esophageal perforation. Recheck abdomen pelvis today. Remains on fluconazole, piperacillin/tazobactam and, vancomycin infectious disease. Heparin drip discontinued secondary to acute drop in platelets. Fibrinogen pending. Haptoglobin LDH and smear pending. 01/17: Afebrile. Remains off all vasopressors. Minimal urine output overnight. Plan for hemodialysis today once platelets arrived. Minimal output from chest tubes bilaterally. FiO2 down to 40%. PEEP down to 10. Subjective 01/18: Afebrile. -3.5 L with hemodialysis today. Off all vasopressors. Will attempt sedation vacation later on this morning. FiO2 down to 40%. PEEP down to 5. Objective Vital Signs / I&O: Vital Signs 01/17/18 14:00 01/17/18 15:00 01/17/18 16:00 Temperature 98.6 F Pulse Rate 62 62 63 Respiratory Rate 18 18 18 Blood Pressure 161/97 H 153/92 H 154/94 H Pulse Oximetry 96 97 97 01/17/18 16:12 01/17/18 17:00 01/17/18 18:00 Temperature Pulse Rate 61 80 61 Respiratory Rate 16 18 18 Blood Pressure 130/81 126/78 Pulse Oximetry 97 92 L 95 01/17/18 19:00 01/17/18 19:46 01/17/18 19:53 Temperature 98.3 F Pulse Rate 60 65 Respiratory Rate 18 19 18 Blood Pressure 123/79 Pulse Oximetry 95 97 01/17/18 20:00 01/17/18 21:00 01/17/18 22:00 Temperature 98.9 F Pulse Rate 81 59 L 62 Respiratory Rate 18 18 18 Blood Pressure 127/80 126/80 143/92 H Pulse Oximetry 92 L 94 L 94 L 01/17/18 23:00 01/18/18 00:00 01/18/18 00:12 Temperature 98.7 F 98.9 F Pulse Rate 70 68 66 Respiratory Rate 18 18 18 Blood Pressure 139/87 119/73 Pulse Oximetry 94 L 92 L 01/18/18 01:00 01/18/18 02:00 01/18/18 03:00 Temperature 98.8 F 99.0 F 98.6 F Pulse Rate 63 76 59 L Respiratory Rate 18 18 18 Blood Pressure 139/84 131/75 138/84 Pulse Oximetry 91 L 93 L 92 L 01/18/18 03:25 01/18/18 03:26 01/18/18 04:00 Temperature 99.0 F Pulse Rate 54 L 62 Respiratory Rate 18 19 18 Blood Pressure 135/84 Pulse Oximetry 92 L 96 01/18/18 05:00 01/18/18 05:01 01/18/18 05:14 Temperature 99.0 F Pulse Rate 57 L 57 L 55 L Respiratory Rate 18 18 18 Blood Pressure 156/93 H 156/92 H Pulse Oximetry 97 97 96 01/18/18 05:18 01/18/18 06:00 01/18/18 07:00 Temperature 98.6 F 98.6 F Pulse Rate 73 62 Respiratory Rate 18 18 18 Blood Pressure 138/80 144/87 H Pulse Oximetry 92 L 93 L 01/18/18 08:00 01/18/18 09:00 01/18/18 10:00 Temperature Pulse Rate 52 L 62 58 L Respiratory Rate 18 18 18 Blood Pressure 150/90 H 139/87 134/81 Pulse Oximetry 100 01/18/18 12:10 01/18/18 12:11 Temperature Pulse Rate 1 L Respiratory Rate 18 16 Blood Pressure Pulse Oximetry 92 L Intake & Output 01/17/18 01/18/18 01/18/18 18:59 06:59 18:59 Intake Total 1273.2 / 1273.2 1427 / 1427 Output Total 56 / 56 3035 / 3035 3500 / 3500 Balance 1217.2 / 1217.2 -1608 / -1608 -3500 / -3500 Weight 122 kg Intake: IV 966.2 / 966.2 1040 / 1040 Versed Inj 50 mg In 50 ml @ 2 75 / 75 MG/HR 2 mls/hr IV.CONT TITRATE PRN Rx#:[id number] Calcium Chloride Inj 1 GM In NS 110 / 110 Inj 100 ML @ 110 mls/hr IV.SIG ONCE ONE Rx#:[id number] Diflucan 400 mg Premix Bag 200 200 / 200 ML @ 100 mls/hr IV.SIG Q24H [facility] Rx#:[id number] MVI-12 Inj 10 ML Thiamine Inj 511.2 / 511.2 100 MG Folvite Inj 1 MG In NS Inj 500 ML @ 125 mls/hr IV.SIG Q24H [facility] Rx#:[id number] Zosyn 3.375 GM Premix 50 ML @ 100 / 100 100 / 100 100 mls/hr IV.SIG Q6H [facility] Rx#: [id number] fentaNYL 10 mcg/mL Premix Drip 250 / 250 250 / 250 2,500 mcg In 250 ml @ 50 MCG/HR 5 mls/hr IV.SIG TITRATE PRN Rx #:[id number] Keppra Inj 500 MG In NS Inj 100 105 / 105 105 / 105 ML @ 400 mls/hr IV.SIG Q12H [facility] Rx#:[id number] Flolan (30,000 ng/mL) Neb 40 ML 100 / 100 In NS Inj 60 ML @ 5 mls/hr NEB Q8H [facility] Rx#:[id number] Flolan (30,000 ng/mL) Neb 60 ML 100 / 100 In NS Inj 40 ML @ 5 mls/hr NEB Q8H [facility] Rx#:[id number] Tube Feeding 110 / 110 387 / 387 Intake (Blood Product) Amt Plt Pheresis A Leukored Pas Unit [id number] Output: Urine 40 / 40 Hemodialysis Amount 3000 / 3000 3500 / 3500 Urine Amount (Catheter) 35 / Indwelling Temp Sensing Catheter Chest Tube Drainage #1 Left Pleural #2 Right Pleural Other: Date of Last Bowel Movement 01/17/18 01/18/18 01/18/18 # Bowel Movements 0 # Incontinent Bowel Movements 1 Result Diagrams: 01/18/18 03:30 01/18/18 03:30 Other Results: Microbiology 01/15/18 03:30 Blood - Peripheral Aerobic Blood Culture - Preliminary No growth in 3 days 01/15/18 03:30 Blood - Peripheral Anaerobic Blood Culture - Preliminary No growth in 3 days 01/15/18 03:39 Blood - Peripheral Aerobic Blood Culture - Preliminary No growth in 3 days 01/15/18 03:39 Blood - Peripheral Anaerobic Blood Culture - Preliminary No growth in 3 days 01/16/18 17:30 Stool Stool Occult Blood (GINA) - Final Hemoccult positive Imaging: Cervical Spine CT 01/14/18 21:58 CONCLUSION: 1. No acute fracture or malalignment. 2. Subcutaneous emphysema again noted as well as the known right pneumothorax. Chest X-Ray 01/14/18 21:58 CONCLUSION: 1. ET tube in good position. 2. Subcutaneous emphysema clavicular and chest wall region. 3. Probable pneumomediastinum. Head CT 01/14/18 21:58 CONCLUSION: 1. No acute hemorrhage or mass effect. 2. Stable area of encephalomalacia in the right lateral lobe. . Chest CT 01/14/18 22:54 CONCLUSION: 1. Bilateral pneumothoraces right greater than left. 2. Apparent pneumomediastinum with gas also dissecting into the right side of the retroperitoneum and anterior to the right kidney. 3. Linear collections of gas along the anterior inner abdominal wall which could represent collections of dissected free air. Subcutaneous emphysema is also noted. 4. Consolidation in both posterior lung bases and posterior hilar regions. 5. Small right pleural effusion. 6. Suboptimal study secondary to extensive motion artifact. This limits the sensitivity. These findings were called to the emergency room physician immediately after the study was performed. Abdomen X-Ray 01/15/18 00:00 CONCLUSION: 1. No free intraperitoneal air. 2. Residual small pneumothoraces with small chest tubes in place. Chest X-Ray 01/15/18 00:03 CONCLUSION: 1. Interval placement of bilateral small bore chest tubes. 2. Interval placement nasogastric tube and right subclavian central venous line. 3. There is consolidation again noted in both perihilar regions and retrocardiac region. 4. Small apparent residual right pneumothorax and pneumomediastinum again noted. Chest X-Ray 01/15/18 02:18 CONCLUSION: 1. Optimal examination mild motion artifact. 2. The right sided chest tube is not well visualized on the current study there is a left-sided chest tube appears unchanged. 3. Bilateral subcutaneous emphysema right greater than left with abnormal lucency projected over portions of both upper lobes concern for residual pneumothoraces. 4. Dense consolidation again noted in both lungs. Abdomen/Bladder Ultrasound 01/16/18 00:00 CONCLUSION: 1. Trace ascites. 2. Negative renal ultrasound Abdomen/Pelvis CT 01/16/18 00:00 CONCLUSION: 1. Minimal free intraperitoneal air. I don't see etiology for such 2. Dense consolidation both lung bases with small bilateral chest tubes 3. Trace pneumothorax on the left. No pneumothorax on the right. 4. Moderate fatty replacement to the liver with prominent gallbladder Chest CT 01/16/18 00:00 . CONCLUSION: 1. Dense consolidation in both lung bases small bore chest tubes evident. 2. Trace pneumothorax on the left 3. No significant fluid. Chest X-Ray 01/16/18 00:00 CONCLUSION: 1. [Interval decrease in pneumothoraces and pneumomediastinum apparent mild residual medial left upper lobe. 2. Diffuse airspace opacities remain. Head MRI 01/16/18 06:37 CONCLUSION: 1. 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 2. There is no restricted diffusion to suggest extension of or new infarct. Chest X-Ray 01/17/18 06:00 CONCLUSION: 1. Mild residual lucency along the medial upper lobes which most characteristic of residual pneumomediastinum. 2. There is no definite pneumothorax. 3. The smallbore left-sided chest tube remains in place. Previously noted right -sided chest tube is not well visualized. 4. Hazy opacity throughout both lungs without significant change. Chest X-Ray 01/17/18 10:31 CONCLUSION: 1. No pneumothorax status post placement of left internal jugular Vas-Cath which has its tip in superior vena cava. 2. Diffuse pulmonary infiltrates consistent with severe pulmonary edema versus pneumonia. 3. Multiple other tubes and lines are stable. 4. Cardiomegaly. Chest X-Ray 01/18/18 06:00 CONCLUSION: Bilateral airspace opacities and small pleural effusions persist without significant change. Objective Remarks: GENERAL: 62-year-old male currently orotracheally treated with bilateral chest tubes critically ill SKIN: Warm and dry. No rash HEAD: Atraumatic. Normocephalic. EYES: Pupils equal and round. No scleral icterus. No injection or drainage. ENT: No nasal bleeding or discharge. Mucous membranes pink and moist. NECK: Trachea midline. No JVD. CARDIOVASCULAR: Regular rate and rhythm with ectopy. S1, S2. No murmur RESPIRATORY: Diminished breath sounds in the bases bilaterally. Crepitus improved subcutaneous emphysema. Bilateral pigtail chest tubes are in place at at -40 cmH2O GASTROINTESTINAL: Abdomen soft, non-tender, nondistended. Hypoactive bowel sounds appreciated. MUSCULOSKELETAL: Extremities without without significant peripheral edema. No obvious deformities. NEUROLOGICAL: Currently sedated on midazolam and fentanyl drips. Assessment and Plan - Assessment and Plan Plan: Neuro/Psych: Bipolar disorder History of right parietal CVA 2009 EtOH abuse Acute seizure Patient is currently on midazolam drip at 2 mg an hour and fentanyl drip at 50 mcg/h for sedation/analgesia while intubated Goal of RA SS -[address] brain admission revealed right parietal region encephalomalacia. EEG 01/15 revealed no epileptic activity. Slowing MRI brain ordered revealed stable right sylvian infarct/old. No acute findings Holding home medication gabapentin 300 mg twice daily and ketamine 50 mg daily and sertraline 50 mg daily Vitamin bag daily times 3 days. Monitor for DTs Remains on levetiracetam 500 mg IV twice daily CV: Non-STEMI Elevated troponin Severe shock resolving History of essential hypertension History of hyperlipidemia Evaluated by cardiology/Dr. Gomez Started on carvedilol 3.125 mg twice daily Holding valsartan 80 mg daily in light of acute kidney injury. Holding atorvastatin 20 mg daily in light of acute liver injury. 2D echocardiogram revealed EF 55-60%. Mild LVH. PAP 31 mmHg. Currently normal sinus rhythm no ectopy. Flowtrack reveals cardiac index around 2.4. Aspirin and heparin drip held due to severe thrombocytopenia Resp: Acute respiratory failure Bilateral pneumothoraces/pneumomediastinum Gastroesophageal reflux disease on pantoprazole at home NJ VC. Rate of 18. Tidal volume around 550. I time 1.05. PEEP of 8. FiO2 of 50%. Remains on epoprostenol aerosolized Albuterol/ipratropium aerosols every 4 hours albuterol every 2 hours as needed dyspnea CT thorax revealed tiny left apical pneumothorax. Bilateral chest tubes in place. Dense consolidation bilateral lower lobes Chest x-ray today revealed improved subcutaneous emphysema/improvement of bilateral pneumothoraces. Unable to identify right chest tube Maintain chest tubes at -40 cmH2O. Monitor output On methylprednisolone succinate 40 mg IV every 8 hours GI: Elevated LFTs Pneumoperitoneum with right retroperitoneal gas/gas around the right kidney Elevated ammonia CT abdomen/pelvis revealed gas in the anterior mediastinum/right retrocrural peritoneal gas/stranding right kidney.. Repeat 01/16 revealed tiny intrarenal for note on no obvious source. In ED this case was discussed with Dr. Jimenez/on-call physician. Believe this was secondary to bilateral pneumothoraces. No surgical intervention. Check lactate and CPK now Recheck CT abdomen/pelvis now. Will likely initiate tube feeding if no signs of esophageal perforation on CT with contrast of thorax Would recommend Nepro in light of acute kidney injury Pantoprazole for GI prophylaxis Docusate sodium/senna 1 tablet twice daily for bowel regimen Ultrasound tests again revealed severe hepatic steatosis likely EtOH cirrhosis/ ischemia/CPK elevation. On lactulose 30 cc twice daily : Og catheter has been placed for accurate I's and O's in a critically ill patient Endo: History of diabetes mellitus History of hypothyroidism Glimepiride 2 mg twice daily is currently on hold. Sliding scale insulin regular insulin to maintain euglycemia Continue levothyroxine 88 mcg daily. TSH was 0.611 Renal: Acute kidney injury Rhabdomyolysis Currently on hemodialysis 01/17/01/18 Nephrology consultation appreciated Renal ultrasound prophylaxis. Urine eosinophils negative No hydronephrosis. Avoid nephrotoxic medication Heme: Normocytic anemia Acute thrombocytopenia Unlikely hit secondary to timeframe. Elevated haptoglobin/LDH and peripheral smear no signs of mellitus We will discontinue heparin drip in light of significant thrombocytopenia. Aspirin on hold. ID: Currently on piperacillin/tazobactam, vancomycin per infectious disease. For actively following Blood cultures no growth to date Fluconazole discontinued 01/17 FEN: Acute hypocalcemia Hypopotassemia Replace electrolytes as clinically indicated 1 g calcium chloride IV x1 now. 10 mEq potassium chloride IV x1 now. MSK: Elevated BMI Physical therapy evaluate and treat Weight loss encouraged Access -Right subclavian CVL day #5 placed 11/12 -Right brachial arterial line day #4 placed 01/15 Prophylaxis -GI-pantoprazole -DVT-SCD/holding pharmacological prophylaxis in light of severe thrombocytopenia Critical care time 35 minutes
[2018-01-18] MEDS: Piperacil/Tazo 2.25 GM Premix 50 ML IV.SIG SCH ×2 (13:39→21:29)
--- NOTE | 2018-01-18 15:58 | P.PNNP ---
Subjective Interval history: The patient is a 62 yo [place] male who was brought into this facility via [facility] on after being found at home by his in seizure. Uncertain how long he was seizing prior to her arrival. He was given Versed in transport which stopped seizure activity. In the ED, a code blue was called and resuscitation efforts were started and ROSC achieved after 2 cycles of CPR and epinephrine. After CPR, he was found to have subcutaneous emphysema and sent for CT of his chest revealing bilateral tension PTX with free air in peritoneal cavity. At that point, he had chest tubes placed bilaterally. After stabilization, he was trasnferred to ICU where he went into cardiac arrest again with ROSC after 2 cycles of CPR, bicarb, and epinephrine. January 19, 2018: Remains intubated on ventilator support. Patient nonverbal. Still oliguric. Completed second dialysis session today. Physical Exam Vital signs: Vital Signs 01/17/18 16:00 01/17/18 16:12 01/17/18 17:00 Temperature 98.6 F Pulse Rate 63 61 80 Respiratory Rate 18 16 18 Blood Pressure 154/94 H 130/81 Pulse Oximetry 97 97 92 L 01/17/18 18:00 01/17/18 19:00 01/17/18 19:46 Temperature 98.3 F Pulse Rate 61 60 Respiratory Rate 18 18 19 Blood Pressure 126/78 123/79 Pulse Oximetry 95 95 97 01/17/18 19:53 01/17/18 20:00 01/17/18 21:00 Temperature Pulse Rate 65 81 59 L Respiratory Rate 18 18 18 Blood Pressure 127/80 126/80 Pulse Oximetry 92 L 94 L 01/17/18 22:00 01/17/18 23:00 01/18/18 00:00 Temperature 98.9 F 98.7 F 98.9 F Pulse Rate 62 70 68 Respiratory Rate 18 18 18 Blood Pressure 143/92 H 139/87 119/73 Pulse Oximetry 94 L 94 L 92 L 01/18/18 00:12 01/18/18 01:00 01/18/18 02:00 Temperature 98.8 F 99.0 F Pulse Rate 66 63 76 Respiratory Rate 18 18 18 Blood Pressure 139/84 131/75 Pulse Oximetry 91 L 93 L 01/18/18 03:00 01/18/18 03:25 01/18/18 03:26 Temperature 98.6 F Pulse Rate 59 L 54 L Respiratory Rate 18 18 19 Blood Pressure 138/84 Pulse Oximetry 92 L 92 L 01/18/18 04:00 01/18/18 05:00 01/18/18 05:01 Temperature 99.0 F 99.0 F Pulse Rate 62 57 L 57 L Respiratory Rate 18 18 18 Blood Pressure 135/84 156/93 H Pulse Oximetry 96 97 97 01/18/18 05:14 01/18/18 05:18 01/18/18 06:00 Temperature 98.6 F Pulse Rate 55 L 73 Respiratory Rate 18 18 18 Blood Pressure 156/92 H 138/80 Pulse Oximetry 96 92 L 93 L 01/18/18 07:00 01/18/18 08:00 01/18/18 09:00 Temperature 98.6 F Pulse Rate 62 52 L 62 Respiratory Rate 18 18 18 Blood Pressure 144/87 H 150/90 H 139/87 Pulse Oximetry 100 01/18/18 10:00 01/18/18 11:00 01/18/18 12:00 Temperature 98.6 F Pulse Rate 58 L 58 L 75 Respiratory Rate 18 18 18 Blood Pressure 134/81 118/73 145/88 H Pulse Oximetry 01/18/18 12:10 01/18/18 12:11 01/18/18 13:00 Temperature Pulse Rate 1 L 71 Respiratory Rate 18 16 18 Blood Pressure 128/77 Pulse Oximetry 92 L 01/18/18 14:00 01/18/18 15:00 Temperature Pulse Rate 55 L 3 L Respiratory Rate 18 16 Blood Pressure 133/81 135/84 Pulse Oximetry Intake & Output 01/17/18 01/18/18 01/18/18 18:59 06:59 18:59 Intake Total 1273.2 / 1273.2 1427 / 1427 155 / 155 Output Total 56 / 56 3035 / 3035 3500 / 3500 Balance 1217.2 / 1217.2 -1608 / -1608 -3345 / -3345 Weight 122 kg Intake: IV 966.2 / 966.2 1040 / 1040 155 / 155 Versed Inj 50 mg In 50 ml @ 2 75 / 75 MG/HR 2 mls/hr IV.CONT TITRATE PRN Rx#:[id number] Calcium Chloride Inj 1 GM In NS 110 / 110 Inj 100 ML @ 110 mls/hr IV.SIG ONCE ONE Rx#:[id number] Diflucan 400 mg Premix Bag 200 200 / 200 ML @ 100 mls/hr IV.SIG Q24H [facility] Rx#:[id number] MVI-12 Inj 10 ML Thiamine Inj 511.2 / 511.2 100 MG Folvite Inj 1 MG In NS Inj 500 ML @ 125 mls/hr IV.SIG Q24H [facility] Rx#:[id number] Zosyn 2.25 GM Premix 50 ML @ 50 / 50 100 mls/hr IV.SIG Q6H [facility] Rx#: [id number] Zosyn 3.375 GM Premix 50 ML @ 100 / 100 100 / 100 100 mls/hr IV.SIG Q6H [facility] Rx#: [id number] fentaNYL 10 mcg/mL Premix Drip 250 / 250 250 / 250 2,500 mcg In 250 ml @ 50 MCG/HR 5 mls/hr IV.SIG TITRATE PRN Rx #:[id number] Keppra Inj 500 MG In NS Inj 100 105 / 105 105 / 105 105 / 105 ML @ 400 mls/hr IV.SIG Q12H [facility] Rx#:[id number] Flolan (30,000 ng/mL) Neb 40 ML 100 / 100 In NS Inj 60 ML @ 5 mls/hr NEB Q8H [facility] Rx#:[id number] Flolan (30,000 ng/mL) Neb 60 ML 100 / 100 In NS Inj 40 ML @ 5 mls/hr NEB Q8H [facility] Rx#:[id number] Tube Feeding 110 / 110 387 / 387 Intake (Blood Product) Amt 197 / 197 Plt Pheresis A Leukored Pas 197 / 197 Unit [id number] Output: Urine 40 / 40 Hemodialysis Amount 3000 / 3000 3500 / 3500 Urine Amount (Catheter) 35 / 35 Indwelling Temp Sensing 35 / 35 Catheter Chest Tube Drainage #1 Left Pleural 6 / #2 Right Pleural Other: Date of Last Bowel Movement 01/17/18 01/18/18 01/18/18 # Bowel Movements 0 # Incontinent Bowel Movements 1 Narrative: GENERAL: Obese male lying in bed with an ET tube in place on ventilatory support. SKIN: Warm and dry. HEAD: Normocephalic. Periorbital edema. EYES: No scleral icterus. No injection or drainage. NECK: Supple, trachea midline. No JVD . CARDIOVASCULAR: Regular rate and rhythm without murmurs, gallops, or rubs. RESPIRATORY: Breath sounds equal bilaterally. No accessory muscle use. GASTROINTESTINAL: Abdomen soft, non-tender, distended but not tender. MUSCULOSKELETAL: No cyanosis, 2-3+ edema of the limbs. Dependent hip edema. BACK: Nontender without obvious deformity. No CVA tenderness. - Urinary Catheter Management Indwelling Temp Sensing Catheter Cath placed during this visit: yes Reason for continuing: Other continuation reason Insertion date: 01/14/18 Insertion time: 22:00 Assessment and Plan - Assessment (1) Acute renal failure Code(s): N17.9 - Acute kidney failure, unspecified Status: Acute Plan: Patient's volume status improved somewhat with dialysis. No evidence of improvement in his renal function however clinically. He will need further dialysis tomorrow for additional fluid removal. CPK level is trending downward. Given history of alcohol abuse, sepsis, rhabdomyolysis, respiratory insufficiency and hepatic dysfunction he remains critically ill with guarded prognosis. Medications should be adjusted for the patient's estimated GFR if clinically indicated. Avoid agents with significant potential for nephrotoxicity possible including NSAIDs for analgesia, iodine contrast agents. Gadolinium is contraindicated if the GFR is below 30. (2) Alcohol abuse Code(s): F10.10 - Alcohol abuse, uncomplicated Status: Acute (3) Alcohol withdrawal seizure with complication Code(s): F10.239 - Alcohol dependence with withdrawal, unspecified; R56.9 - Unspecified convulsions Status: Acute (4) Rhabdomyolysis Code(s): M62.82 - Rhabdomyolysis Status: Acute Plan: Related to previous seizure.
[2018-01-18] MEDS ORDERED: Vancomycin Inj 1,500 MG in Sodium Chlor 0.9% Inj 500 ML IV.SIG ONE (16:00)
[2018-01-19] MEDS: Artificial Tears Opth Drops 15 ML Bottle EACH EYE SCH ×3 (01:15→15:42)
[2018-01-19] MEDS: Oral Hygiene Kit OROPHARYNG SCH ×4 (01:15→15:42)
[2018-01-19] MEDS: Insulin NovoLIN Regular Correctional Sugar Inj SQ SCH ×4 (01:15→17:43)
[2018-01-19] MEDS: Pantoprazole Inj 40 MG Vial IV.PUSH SCH ×2 (01:16→13:38)
[2018-01-19] MEDS: Piperacil/Tazo 2.25 GM Premix 50 ML IV.SIG SCH ×4 (01:16→20:30)
[2018-01-19] MEDS: MethylPREDNISolone Sod Succinate Inj 40 MG/ML Vial IV.PUSH SCH ×3 (01:16→17:21)
[2018-01-19] MEDS: fentaNYL 10 mcg/mL Premix Drip 2,500 MCG/250 ML BAG IV.SIG PRN ×2 (02:55→18:41)
[2018-01-19] MEDS: Midazolam 50 MG/50 ML Inj 50 MG/50 ML BAG IV.CONT PRN (03:44)
[2018-01-19] MEDS: Chlorhexidine Gluconate 2% 1 Pack (2 Cloths) TOPICAL SCH (03:46)
[2018-01-19 04:12] LABS: Baso % (Auto) 0.1 % (0.0-2.0); Hemoglobin 9.4 gm/dL (13.0-17.0); Lymph # (Auto) 0.4 th/mm3 (1.0-4.8); Mean Corpuscular HGB Conc 34.6 % (32.0-36.0); Mean Corpuscular Hemoglobin 31.3 pg (27.0-34.0); Mean Corpuscular Volume 90.4 fL (80.0-100.0); Mean Platelet Volume 9.2 fL (7.0-11.0); Mono # (Auto) 0.7 th/mm3 (0.0-0.9); Mono % (Auto) 7.1 % (0.0-8.0); Neut # (Auto) 9.4 th/mm3 (1.8-7.7); Neut % (Auto) 88.8 % (16.0-70.0); Platelet Count 81 th/mm3 (150-450); Red Blood Count 2.99 mil/mm3 (4.50-5.90); Red Cell Distribution Width 14.3 % (11.6-17.2); White Blood Count 10.5 th/mm3 (4.0-11.0)
--- NOTE | 2018-01-19 04:45 | XR ---
EXAM DATE: 01/19/2018 4:28 AM EST AGE/SEX: 62 years / Male INDICATIONS: Shortness of breath, possible pulmonary disease. CLINICAL DATA: This is the patient's subsequent encounter. Patient reports that signs and symptoms h ave been present for 1 week and indicates a pain score of Nonresponsive. MEDICAL/SURGICAL HISTORY: Hypertension. Cerebrovascular disease. Diabetes. Chest tube, left. [place] [facility] [place]. . FINDINGS: Single view the chest centered the ET tube, nasogastric tube, bilateral central lines are unchanged. Patchy bilateral infiltrates are seen. There is no visible pneumothorax. Moderate size bilateral pleu ral effusions remain. Left-sided pigtail catheter in good position chest tube. CONCLUSION: Stable single view the chest. Tubes and catheter in good position. Bilateral pigtail catheters S ches t tubes and pulmonary vascular congestion persist. Electronically signed by: Tariq Garcia MD 01/19/2018 4:43 AM EST
[2018-01-19 05:00] LABS: Alanine Aminotransferase 997 U/L (12-78); Albumin 2.7 g/dL (3.4-5.0); Alkaline Phosphatase 256 U/L (45-117); Anion Gap 12 meq/L (5-15); Aspartate Aminotransferase 740 U/L (15-37); Blood Urea Nitrogen 76 mg/dL (7-18); Calcium 7.6 mg/dL (8.5-10.1); Carbon Dioxide 29.6 meq/L (21.0-32.0); Chloride 101 meq/L (98-107); Glomerular Filtration Rate 10 mL/min (>89); Glucose,Random 335 mg/dL (74-106); Phosphorus 3.6 mg/dL (2.5-4.9); Potassium 3.4 meq/L (3.5-5.1); Sodium 143 meq/L (136-145)
[2018-01-19] MEDS: Levothyroxine 88 MCG Tablet PO SCH (05:33)
[2018-01-19 05:35] LABS: Dohle Bodies Present; Lymphocytes 4 % (9-44); Metamyelocytes 2 % (0-1); Monocytes 5 % (0-8); Myelocytes 1 % (0-0); Platelet Morphology Normal (Normal); Promyelocyte 4 % (0-0); Tallied Nucleated RBC 4 (0-0)
[2018-01-19 05:38] LABS: Hepatitis A IgM Antibody Nonreactive (Nonreactive)
[2018-01-19] MEDS ORDERED: Midazolam 100 MG/100 ML Inj 100 MG/100 ML BAG IV.CONT PRN (07:45)
[2018-01-19 09:09] LABS: Hepatitits B Surface Antigen Nonreactive (Nonreactive)
[2018-01-19] MEDS: Chlorhexidine 0.12% Oral Kit 15 ML UDC OROPHARYNG SCH ×2 (09:56→21:36)
[2018-01-19] MEDS: Senna/Docusate Sodium 8.6/50 MG Tablet PO SCH ×2 (09:57→21:37)
[2018-01-19] MEDS: hydrALAZINE HCl Inj 20 MG/ML Vial IV.PUSH PRN (11:37)
[2018-01-19] MEDS ORDERED: Acetaminophen 325 MG Tablet PO PRN (11:41)
[2018-01-19] MEDS ORDERED: Gelatin 12 MM/7 MM Topical Foam TOPICAL PRN (11:41)
[2018-01-19] MEDS ORDERED: Sod Chloride 0.9% Inj 1,000 ML OTHER PRN ×2 (11:41)
[2018-01-19] MEDS ORDERED: Albumin Human 25% Inj 100 ML IV.SIG PRN (11:41)
[2018-01-19] MEDS ORDERED: Sod Chloride 0.9% Inj 1,000 ML IV.CONT PRN (11:41)
[2018-01-19] MEDS ORDERED: Heparin 10,000 UNITS/10 ML Vial (for IV use) OTHER PRN ×2 (11:41)
--- NOTE | 2018-01-19 11:44 | P.PNNP ---
Subjective Interval history: The patient is a 62 yo [place] male who was brought into this facility via [facility] on after being found at home by his in seizure. Uncertain how long he was seizing prior to her arrival. He was given Versed in transport which stopped seizure activity. In the ED, a code blue was called and resuscitation efforts were started and ROSC achieved after 2 cycles of CPR and epinephrine. After CPR, he was found to have subcutaneous emphysema and sent for CT of his chest revealing bilateral tension PTX with free air in peritoneal cavity. At that point, he had chest tubes placed bilaterally. After stabilization, he was transferred to ICU where he went into cardiac arrest again with ROSC after 2 cycles of CPR, bicarb, and epinephrine. January 18, 2018: Remains intubated on ventilator support. Patient nonverbal. Still oliguric. Completed second dialysis session today. January 19, 2018: Remains intubated and sedated. Oliguric. No family at bedside. Pending 3rd HD today. <Fabiola Macdonald R - Last Filed: 01/19/18 11:37> Physical Exam Vital signs: Vital Signs 01/18/18 12:00 01/18/18 12:10 01/18/18 12:11 Temperature 98.6 F Pulse Rate 75 1 L Respiratory Rate 16 18 16 Blood Pressure 145/88 H Pulse Oximetry 94 L 92 L 01/18/18 13:00 01/18/18 14:00 01/18/18 15:00 Temperature Pulse Rate 71 55 L 54 L Respiratory Rate 20 20 22 Blood Pressure 128/77 133/81 135/84 Pulse Oximetry 95 90 L 90 L 01/18/18 15:52 01/18/18 16:00 01/18/18 16:01 Temperature 98.3 F Pulse Rate 76 104 H Respiratory Rate 16 21 16 Blood Pressure 135/93 H 135/93 H Pulse Oximetry 4 L 91 L 98 01/18/18 17:00 01/18/18 18:00 01/18/18 19:00 Temperature Pulse Rate 66 65 72 Respiratory Rate 16 16 16 Blood Pressure 162/89 H 131/77 136/77 Pulse Oximetry 96 92 L 91 L 01/18/18 19:48 01/18/18 20:00 01/18/18 21:00 Temperature 98.6 F Pulse Rate 55 L 57 L 58 L Respiratory Rate 16 16 16 Blood Pressure 149/85 H 151/90 H Pulse Oximetry 94 L 92 L 95 01/18/18 22:00 01/18/18 22:59 01/18/18 23:00 Temperature Pulse Rate 61 58 L 57 L Respiratory Rate 16 16 16 Blood Pressure 148/86 H 152/86 H Pulse Oximetry 95 97 01/18/18 23:52 01/19/18 00:00 01/19/18 01:00 Temperature 98.1 F Pulse Rate 52 L 48 L Respiratory Rate 17 16 16 Blood Pressure 160/86 H 160/87 H Pulse Oximetry 96 97 99 01/19/18 02:00 01/19/18 03:00 01/19/18 03:01 Temperature Pulse Rate 66 50 L 50 L Respiratory Rate 16 16 16 Blood Pressure 114/63 141/79 H Pulse Oximetry 94 L 93 L 93 L 01/19/18 03:27 01/19/18 03:33 01/19/18 04:00 Temperature 98.6 F Pulse Rate 87 72 59 L Respiratory Rate 26 H 16 16 Blood Pressure 175/101 H 139/86 Pulse Oximetry 100 100 99 01/19/18 05:00 01/19/18 06:00 01/19/18 07:00 Temperature Pulse Rate 49 L 47 L 53 L Respiratory Rate 16 16 0 L Blood Pressure 141/83 H 137/80 142/79 H Pulse Oximetry 99 100 100 01/19/18 08:00 01/19/18 08:30 01/19/18 10:38 Temperature Pulse Rate 54 L Respiratory Rate 16 16 16 Blood Pressure Pulse Oximetry 98 100 01/19/18 11:17 Temperature Pulse Rate 49 L Respiratory Rate 16 Blood Pressure Pulse Oximetry Intake & Output 01/18/18 01/19/18 01/19/18 18:59 06:59 18:59 Intake Total 1599.2 / 1599.2 1031 / 1031 50 / 50 Output Total 3561 / 3561 110 / 110 Balance -1961.8 / -1961.8 921 / 921 50 / 50 Weight 120 kg Intake: IV 1116.2 / 1116.2 615 / 615 50 / 50 Versed Inj 50 mg In 50 ml @ 2 50 / 50 MG/HR 2 mls/hr IV.CONT TITRATE PRN Rx#:[id number] Diflucan 400 mg Premix Bag 200 200 / 200 ML @ 100 mls/hr IV.SIG Q24H [facility] Rx#:[id number] MVI-12 Inj 10 ML Thiamine Inj 511.2 / 511.2 100 MG Folvite Inj 1 MG In NS Inj 500 ML @ 125 mls/hr IV.SIG Q24H [facility] Rx#:[id number] Zosyn 2.25 GM Premix 50 ML @ 50 / 50 100 / 100 50 / 50 100 mls/hr IV.SIG Q6H [facility] Rx#: [id number] Zosyn 3.375 GM Premix 50 ML @ 50 / 50 100 mls/hr IV.SIG Q6H [facility] Rx#: [id number] KCl 10 mEq Premix Inj 10 meq In 100 / 100 100 ml @ 100 mls/hr IV.SIG ONCE ONE Rx#:[id number] fentaNYL 10 mcg/mL Premix Drip 250 / 250 2,500 mcg In 250 ml @ 50 MCG/HR 5 mls/hr IV.SIG TITRATE PRN Rx #:[id number] Keppra Inj 500 MG In NS Inj 100 105 / 105 105 / 105 ML @ 400 mls/hr IV.SIG Q12H [facility] Rx#:[id number] Tube Feeding 483 / 483 416 / 416 Output: Urine 60 / 60 Hemodialysis Amount 3500 / 3500 Chest Tube Drainage 51 / 51 50 / 50 #1 Left Pleural 20 / 20 #2 Right Pleural 50 / 50 30 / 30 Other: Date of Last Bowel Movement 01/18/18 01/19/18 01/18/18 # Bowel Movements 0 # Incontinent Bowel Movements 2 - Constitutional no acute distress, obese - Routine HEENT Exam Head: Present: normocephalic - Routine Neck Exam Present: supple - Routine Respiratory Exam Present: patient mechanically ventilated, CTA bilaterally - Routine Cardiovascular Exam Present: RRR, S1, S2 - Routine Abdominal Exam Present: distended - Routine Extremities Exam Present: edema (significant generalized edema ) - Routine Neurological Exam Absent: alert, oriented X3 - Urinary Catheter Management Indwelling Temp Sensing Catheter Cath placed during this visit: yes Reason for continuing: Other continuation reason Insertion date: 01/14/18 Insertion time: 22:00 <Fabiola Macdonald - Last Filed: 01/19/18 11:37> Vital signs: Vital Signs 01/19/18 13:30 01/19/18 14:00 01/19/18 14:59 Temperature Pulse Rate 52 L 51 L Respiratory Rate 16 16 16 Blood Pressure 122/74 Pulse Oximetry 96 96 01/19/18 15:00 01/19/18 16:00 01/19/18 16:33 Temperature 98.4 F Pulse Rate 56 L 53 L Respiratory Rate 0 L 16 16 Blood Pressure 144/82 H 141/82 H Pulse Oximetry 99 97 98 01/19/18 17:00 01/19/18 18:00 01/19/18 19:00 Temperature Pulse Rate 62 79 91 H Respiratory Rate 16 16 16 Blood Pressure 108/72 93/60 L 97/66 L Pulse Oximetry 99 98 100 01/19/18 19:59 01/19/18 20:00 01/19/18 21:00 Temperature 98.6 F Pulse Rate 77 75 65 Respiratory Rate 16 0 L 16 Blood Pressure 99/65 L 114/70 Pulse Oximetry 98 98 97 01/19/18 22:00 01/19/18 23:00 01/20/18 00:00 Temperature 98.3 F Pulse Rate 72 56 L 59 L Respiratory Rate 16 16 16 Blood Pressure 114/71 116/75 110/71 Pulse Oximetry 97 96 96 01/20/18 00:11 01/20/18 01:00 01/20/18 01:01 Temperature Pulse Rate 56 L 54 L 53 L Respiratory Rate 16 16 16 Blood Pressure 129/74 Pulse Oximetry 97 97 01/20/18 02:00 01/20/18 03:00 01/20/18 04:00 Temperature Pulse Rate 64 56 L 58 L Respiratory Rate 16 16 16 Blood Pressure 127/74 131/77 127/75 Pulse Oximetry 98 97 97 01/20/18 04:29 01/20/18 05:00 01/20/18 06:00 Temperature Pulse Rate 55 L 55 L 68 Respiratory Rate 16 16 16 Blood Pressure 141/79 H 114/70 Pulse Oximetry 100 97 96 01/20/18 07:57 01/20/18 08:00 01/20/18 10:43 Temperature 98.4 F Pulse Rate 61 58 L Respiratory Rate 16 16 16 Blood Pressure 132/73 Pulse Oximetry 99 99 97 01/20/18 11:33 01/20/18 12:00 01/20/18 13:03 Temperature 98.3 F Pulse Rate 65 68 Respiratory Rate 16 16 16 Blood Pressure 160/86 H Pulse Oximetry 99 99 Intake & Output 01/19/18 01/20/18 01/20/18 18:59 06:59 18:59 Intake Total 1139 / 1139 776 / 776 Output Total 33 / 33 44771 / 66782 Balance 1106 / 1106 -9254 / -9254 Weight 117 kg Intake: IV 655 / 655 255 / 255 Diflucan 400 mg Premix Bag 200 200 / 200 ML @ 100 mls/hr IV.SIG Q24H [facility] Rx#:[id number] Zosyn 2.25 GM Premix 50 ML @ 100 / 100 100 / 100 100 mls/hr IV.SIG Q6H [facility] Rx#: [id number] fentaNYL 10 mcg/mL Premix Drip 250 / 250 2,500 mcg In 250 ml @ 50 MCG/HR 5 mls/hr IV.SIG TITRATE PRN Rx #:[id number] Keppra Inj 500 MG In NS Inj 100 105 / 105 105 / 105 ML @ 400 mls/hr IV.SIG Q12H [facility] Rx#:[id number] Tube Feeding 484 / 484 461 / 461 Water Bolus Amount 60 / 60 Output: Urine Hemodialysis Amount 96048 / 20563 Urine Amount (Catheter) Indwelling Temp Sensing Catheter Gastric Drainage 0 / 0 Oral 0 / 0 Chest Tube Drainage 0 / 0 #1 Left Pleural 8 / 8 0 / 0 #2 Right Pleural 10 / 10 0 / 0 Other: Date of Last Bowel Movement 01/18/18 01/20/18 01/18/18 # Bowel Movements 3 # Incontinent Bowel Movements 1 - Urinary Catheter Management Indwelling Temp Sensing Catheter Cath placed during this visit: no <Kd Rudd - Last Filed: 01/20/18 13:10> Assessment and Plan - Assessment (1) Acute renal failure Code(s): N17.9 - Acute kidney failure, unspecified Status: Acute Plan: Remains HD dependent. HD again today with UF 4L as tolerated. Next HD tentatively Sunday. Given history of alcohol abuse, sepsis, rhabdomyolysis, respiratory insufficiency and hepatic dysfunction he remains critically ill with guarded prognosis. Medications should be adjusted for the patient's estimated GFR if clinically indicated. Avoid agents with significant potential for nephrotoxicity possible including NSAIDs for analgesia, iodine contrast agents. Gadolinium is contraindicated if the GFR is below 30. (2) Alcohol abuse Code(s): F10.10 - Alcohol abuse, uncomplicated Status: Acute (3) Alcohol withdrawal seizure with complication Code(s): F10.239 - Alcohol dependence with withdrawal, unspecified; R56.9 - Unspecified convulsions Status: Acute (4) Rhabdomyolysis Code(s): M62.82 - Rhabdomyolysis Status: Acute Plan: Related to previous seizure. CPK improving <Fabiola Macdonald - Last Filed: 01/19/18 11:37> - Assessment (1) Acute renal failure Code(s): N17.9 - Acute kidney failure, unspecified Status: Acute (2) Alcohol abuse Code(s): F10.10 - Alcohol abuse, uncomplicated Status: Acute (3) Alcohol withdrawal seizure with complication Code(s): F10.239 - Alcohol dependence with withdrawal, unspecified; R56.9 - Unspecified convulsions Status: Acute (4) Rhabdomyolysis Code(s): M62.82 - Rhabdomyolysis Status: Acute - Attending Attestation The exam, history, and the medical decision-making described in the above note were completed with the assistance of the ISIDRA. I reviewed and agree with the findings presented. <Kd Rudd - Last Filed: 01/20/18 13:10>
--- NOTE | 2018-01-19 17:06 | P.PNCC ---
Subjective Subjective Remarks/Hospital Course: 62-year-old male patient presents because he was found down by family, on evaluation by EMS he had notable seizures, and they had tried Versed without success, he was vomiting dark material. They tried to intubate him for airway protection, but were unable to intubate him. However, the seizures had stopped at that point. He was obtunded in the ER and was intubated by ED attending. Shortly after intubation patient lost his pulses and CPR was initiated. He has regained spontaneous circulation after 2 cycles of CPR and injections of epinephrine. There was significant subcutaneous emphysema noticed and the patient was rushed to CT for the CT of the head chest and abdomen that showed large bilateral pneumothoraces, as well as free air in peritoneal cavity. Bilateral chest tubes were placed immediately in the emergency department. The free air in the peritoneum with was discussed with the surgeon communications editor Dr. Jimenez. It was felt the air in abdominal cavity is more likely leak from the chest cavity from bilateral tension pneumothoraces and observation without emergent surgical intervention was recommended. The patient was transferred to ICU where he suffered another cardiac arrest. He has regained again spontaneous circulation post 2 cycles of CPR, 2 A of sodium bicarb and 2 A of epinephrine. The patient's was updated about the critical condition at the bedside. 01/15: Patient remains critically ill on max dose of norepinephrine, vasopressin , and epinephrine. His oxygenation overnight has somehow improved with Flolan infusion, however still requiring aggressive APRV mode of ventilation. 01/16: Off all vasopressors. Oxygenation stable. Switch from AP RV to AZ VC. Will attempt MRI brain due to neglect and left sided weakness exam. CT thorax with oral contrast to rule out esophageal perforation. Recheck abdomen pelvis today. Remains on fluconazole, piperacillin/tazobactam and, vancomycin infectious disease. Heparin drip discontinued secondary to acute drop in platelets. Fibrinogen pending. Haptoglobin LDH and smear pending. 01/17: Afebrile. Remains off all vasopressors. Minimal urine output overnight. Plan for hemodialysis today once platelets arrived. Minimal output from chest tubes bilaterally. FiO2 down to 40%. PEEP down to 10. 01/18: Afebrile. -3.5 L with hemodialysis today. Off all vasopressors. Will attempt sedation vacation later on this morning. FiO2 down to 40%. PEEP down to 5. Subjective 01/19: Bradycardic. Will attempt to exchange bite block today. Minimal output from chest tubes. Hemodialysis ongoing currently. Objective Vital Signs / I&O: Vital Signs 01/18/18 18:00 01/18/18 19:00 01/18/18 19:48 Temperature Pulse Rate 65 72 55 L Respiratory Rate 16 16 16 Blood Pressure 131/77 136/77 Pulse Oximetry 92 L 91 L 94 L 01/18/18 20:00 01/18/18 21:00 01/18/18 22:00 Temperature 98.6 F Pulse Rate 57 L 58 L 61 Respiratory Rate 16 16 16 Blood Pressure 149/85 H 151/90 H 148/86 H Pulse Oximetry 92 L 95 95 01/18/18 22:59 01/18/18 23:00 01/18/18 23:52 Temperature Pulse Rate 58 L 57 L Respiratory Rate 16 16 17 Blood Pressure 152/86 H Pulse Oximetry 97 96 01/19/18 00:00 01/19/18 01:00 01/19/18 02:00 Temperature 98.1 F Pulse Rate 52 L 48 L 66 Respiratory Rate 16 16 16 Blood Pressure 160/86 H 160/87 H 114/63 Pulse Oximetry 97 99 94 L 01/19/18 03:00 01/19/18 03:01 01/19/18 03:27 Temperature Pulse Rate 50 L 50 L 87 Respiratory Rate 16 16 26 H Blood Pressure 141/79 H 175/101 H Pulse Oximetry 93 L 93 L 100 01/19/18 03:33 01/19/18 04:00 01/19/18 05:00 Temperature 98.6 F Pulse Rate 72 59 L 49 L Respiratory Rate 16 16 16 Blood Pressure 139/86 141/83 H Pulse Oximetry 100 99 99 01/19/18 06:00 01/19/18 07:00 01/19/18 08:00 Temperature 98.1 F Pulse Rate 47 L 53 L 49 L Respiratory Rate 16 0 L 18 Blood Pressure 137/80 142/79 H Pulse Oximetry 100 100 100 01/19/18 08:30 01/19/18 09:00 01/19/18 10:00 Temperature Pulse Rate 47 L 47 L Respiratory Rate 16 18 18 Blood Pressure Pulse Oximetry 98 100 100 01/19/18 10:38 01/19/18 11:00 01/19/18 11:17 Temperature Pulse Rate 49 L 49 L Respiratory Rate 16 18 16 Blood Pressure Pulse Oximetry 100 100 01/19/18 12:00 01/19/18 13:00 01/19/18 13:30 Temperature 98.5 F Pulse Rate 51 L 64 Respiratory Rate 18 18 16 Blood Pressure Pulse Oximetry 99 99 96 01/19/18 14:00 01/19/18 14:59 01/19/18 15:00 Temperature Pulse Rate 52 L 51 L 56 L Respiratory Rate 18 16 18 Blood Pressure Pulse Oximetry 97 99 01/19/18 16:00 01/19/18 16:33 Temperature 98.4 F Pulse Rate 57 L Respiratory Rate 18 16 Blood Pressure 141/82 H Pulse Oximetry 100 98 Intake & Output 01/18/18 01/19/18 01/19/18 18:59 06:59 18:59 Intake Total 1599.2 / 1599.2 1031 / 1031 100 / 100 Output Total 3561 / 3561 110 / 110 Balance -1961.8 / -1961.8 921 / 921 100 / 100 Weight 120 kg Intake: IV 1116.2 / 1116.2 615 / 615 100 / 100 Versed Inj 50 mg In 50 ml @ 2 50 / 50 MG/HR 2 mls/hr IV.CONT TITRATE PRN Rx#:[id number] Diflucan 400 mg Premix Bag 200 200 / 200 ML @ 100 mls/hr IV.SIG Q24H [facility] Rx#:[id number] MVI-12 Inj 10 ML Thiamine Inj 511.2 / 511.2 100 MG Folvite Inj 1 MG In NS Inj 500 ML @ 125 mls/hr IV.SIG Q24H [facility] Rx#:[id number] Zosyn 2.25 GM Premix 50 ML @ 50 / 50 100 / 100 100 / 100 100 mls/hr IV.SIG Q6H [facility] Rx#: [id number] Zosyn 3.375 GM Premix 50 ML @ 50 / 50 100 mls/hr IV.SIG Q6H [facility] Rx#: [id number] KCl 10 mEq Premix Inj 10 meq In 100 / 100 100 ml @ 100 mls/hr IV.SIG ONCE ONE Rx#:[id number] fentaNYL 10 mcg/mL Premix Drip 250 / 250 2,500 mcg In 250 ml @ 50 MCG/HR 5 mls/hr IV.SIG TITRATE PRN Rx #:[id number] Keppra Inj 500 MG In NS Inj 100 105 / 105 105 / 105 ML @ 400 mls/hr IV.SIG Q12H [facility] Rx#:[id number] Tube Feeding 483 / 483 416 / 416 Output: Urine 60 / 60 Hemodialysis Amount 3500 / 3500 Chest Tube Drainage 51 / 51 50 / 50 #1 Left Pleural 20 #2 Right Pleural 50 / 50 30 / 30 Other: Date of Last Bowel Movement 01/18/18 01/19/18 01/18/18 # Bowel Movements 0 # Incontinent Bowel Movements 2 Result Diagrams: 01/19/18 04:00 01/19/18 04:00 Other Results: Microbiology 01/15/18 03:30 Blood - Peripheral Aerobic Blood Culture - Preliminary No growth in 4 days 01/15/18 03:30 Blood - Peripheral Anaerobic Blood Culture - Preliminary No growth in 4 days 01/15/18 03:39 Blood - Peripheral Aerobic Blood Culture - Preliminary No growth in 4 days 01/15/18 03:39 Blood - Peripheral Anaerobic Blood Culture - Preliminary No growth in 4 days 01/16/18 17:30 Stool Stool Occult Blood (GINA) - Final Hemoccult positive Imaging: Cervical Spine CT 01/14/18 21:58 CONCLUSION: 1. No acute fracture or malalignment. 2. Subcutaneous emphysema again noted as well as the known right pneumothorax. Chest X-Ray 01/14/18 21:58 CONCLUSION: 1. ET tube in good position. 2. Subcutaneous emphysema clavicular and chest wall region. 3. Probable pneumomediastinum. Head CT 01/14/18 21:58 CONCLUSION: 1. No acute hemorrhage or mass effect. 2. Stable area of encephalomalacia in the right lateral lobe. . Chest CT 01/14/18 22:54 CONCLUSION: 1. Bilateral pneumothoraces right greater than left. 2. Apparent pneumomediastinum with gas also dissecting into the right side of the retroperitoneum and anterior to the right kidney. 3. Linear collections of gas along the anterior inner abdominal wall which could represent collections of dissected free air. Subcutaneous emphysema is also noted. 4. Consolidation in both posterior lung bases and posterior hilar regions. 5. Small right pleural effusion. 6. Suboptimal study secondary to extensive motion artifact. This limits the sensitivity. These findings were called to the emergency room physician immediately after the study was performed. Abdomen X-Ray 01/15/18 00:00 CONCLUSION: 1. No free intraperitoneal air. 2. Residual small pneumothoraces with small chest tubes in place. Chest X-Ray 01/15/18 00:03 CONCLUSION: 1. Interval placement of bilateral small bore chest tubes. 2. Interval placement nasogastric tube and right subclavian central venous line. 3. There is consolidation again noted in both perihilar regions and retrocardiac region. 4. Small apparent residual right pneumothorax and pneumomediastinum again noted. Chest X-Ray 01/15/18 02:18 CONCLUSION: 1. Optimal examination mild motion artifact. 2. The right sided chest tube is not well visualized on the current study there is a left-sided chest tube appears unchanged. 3. Bilateral subcutaneous emphysema right greater than left with abnormal lucency projected over portions of both upper lobes concern for residual pneumothoraces. 4. Dense consolidation again noted in both lungs. Abdomen/Bladder Ultrasound 01/16/18 00:00 CONCLUSION: 1. Trace ascites. 2. Negative renal ultrasound Abdomen/Pelvis CT 01/16/18 00:00 CONCLUSION: 1. Minimal free intraperitoneal air. I don't see etiology for such 2. Dense consolidation both lung bases with small bilateral chest tubes 3. Trace pneumothorax on the left. No pneumothorax on the right. 4. Moderate fatty replacement to the liver with prominent gallbladder Chest CT 01/16/18 00:00 . CONCLUSION: 1. Dense consolidation in both lung bases small bore chest tubes evident. 2. Trace pneumothorax on the left 3. No significant fluid. Chest X-Ray 01/16/18 00:00 CONCLUSION: 1. [Interval decrease in pneumothoraces and pneumomediastinum apparent mild residual medial left upper lobe. 2. Diffuse airspace opacities remain. Head MRI 01/16/18 06:37 CONCLUSION: 1. 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 2. There is no restricted diffusion to suggest extension of or new infarct. Chest X-Ray 01/17/18 06:00 CONCLUSION: 1. Mild residual lucency along the medial upper lobes which most characteristic of residual pneumomediastinum. 2. There is no definite pneumothorax. 3. The smallbore left-sided chest tube remains in place. Previously noted right -sided chest tube is not well visualized. 4. Hazy opacity throughout both lungs without significant change. Chest X-Ray 01/17/18 10:31 CONCLUSION: 1. No pneumothorax status post placement of left internal jugular Vas-Cath which has its tip in superior vena cava. 2. Diffuse pulmonary infiltrates consistent with severe pulmonary edema versus pneumonia. 3. Multiple other tubes and lines are stable. 4. Cardiomegaly. Chest X-Ray 01/18/18 06:00 CONCLUSION: Bilateral airspace opacities and small pleural effusions persist without significant change. Chest X-Ray 01/19/18 06:00 CONCLUSION: Stable single view the chest. Tubes and catheter in good position. Bilateral pigtail catheters S chest tubes and pulmonary vascular congestion persist. Objective Remarks: GENERAL: 62-year-old male currently orotracheally treated with bilateral chest tubes critically ill SKIN: Warm and dry. No rash HEAD: Atraumatic. Normocephalic. EYES: Pupils equal and round. No scleral icterus. No injection or drainage. ENT: No nasal bleeding or discharge. Mucous membranes pink and moist. NECK: Trachea midline. No JVD. CARDIOVASCULAR: Regular rate and rhythm with ectopy. S1, S2. No murmur RESPIRATORY: Diminished breath sounds in the bases bilaterally. Crepitus improved subcutaneous emphysema. Bilateral pigtail chest tubes are in place at at -40 cmH2O GASTROINTESTINAL: Abdomen soft, non-tender, nondistended. Hypoactive bowel sounds appreciated. MUSCULOSKELETAL: Extremities without without significant peripheral edema. No obvious deformities. NEUROLOGICAL: Currently sedated on midazolam and fentanyl drips. Positive gag and cough. Minimal pupillary reflex. Assessment and Plan - Assessment and Plan Plan: Neuro/Psych: Bipolar disorder History of right parietal CVA 2009 EtOH abuse Acute seizure Patient is currently on midazolam drip at 2 mg an hour and fentanyl drip at 50 mcg/h for sedation/analgesia while intubated Goal of RA SS -[address] brain admission revealed right parietal region encephalomalacia. EEG 01/15 revealed no epileptic activity. Slowing MRI brain ordered revealed stable right sylvian infarct/old. No acute findings Holding home medication gabapentin 300 mg twice daily and ketamine 50 mg daily and sertraline 50 mg daily Vitamin bag daily times 3 days. Monitor for DTs Remains on levetiracetam 500 mg IV twice daily CV: Non-STEMI Elevated troponin Severe shock resolving History of essential hypertension History of hyperlipidemia Cardia Evaluated by cardiology/Dr. Gomez Started on carvedilol 3.125 mg twice daily. Held in light of bradycardia Holding valsartan 80 mg daily in light of acute kidney injury. Holding atorvastatin 20 mg daily in light of acute liver injury. 2D echocardiogram revealed EF 55-60%. Mild LVH. PAP 31 mmHg. Currently normal sinus rhythm no ectopy. Flowtrack reveals cardiac index around 2.4. Aspirin and heparin drip held due to severe thrombocytopenia Resp: Acute respiratory failure Bilateral pneumothoraces/pneumomediastinum Gastroesophageal reflux disease on pantoprazole at home AZ VC. Rate of 18. Tidal volume around 550. I time 1.05. PEEP of 8. FiO2 of 50%. Remains on epoprostenol aerosolized Albuterol/ipratropium aerosols every 4 hours albuterol every 2 hours as needed dyspnea CT thorax revealed tiny left apical pneumothorax. Bilateral chest tubes in place. Dense consolidation bilateral lower lobes Chest x-ray today revealed improved subcutaneous emphysema/improvement of bilateral pneumothoraces. Unable to identify right chest tube Maintain chest tubes at -40 cmH2O. Monitor output On methylprednisolone succinate 40 mg IV every 8 hours GI: Elevated LFTs Pneumoperitoneum with right retroperitoneal gas/gas around the right kidney Elevated ammonia CT abdomen/pelvis revealed gas in the anterior mediastinum/right retrocrural peritoneal gas/stranding right kidney.. Repeat 01/16 revealed tiny intrarenal for note on no obvious source. In ED this case was discussed with Dr. Jimenez/on-call physician. Believe this was secondary to bilateral pneumothoraces. No surgical intervention. Check lactate and CPK now Recheck CT abdomen/pelvis now. Will likely initiate tube feeding if no signs of esophageal perforation on CT with contrast of thorax Would recommend Nepro in light of acute kidney injury Pantoprazole for GI prophylaxis Docusate sodium/senna 1 tablet twice daily for bowel regimen Ultrasound tests again revealed severe hepatic steatosis likely EtOH cirrhosis/ ischemia/CPK elevation. On lactulose 30 cc twice daily : Og catheter has been placed for accurate I's and O's in a critically ill patient Endo: History of diabetes mellitus History of hypothyroidism Glimepiride 2 mg twice daily is currently on hold. Sliding scale insulin regular insulin to maintain euglycemia Continue levothyroxine 88 mcg daily. TSH was 0.611 Renal: Acute kidney injury Rhabdomyolysis Currently on hemodialysis 01/17/01/18 Nephrology consultation appreciated Renal ultrasound prophylaxis. Urine eosinophils negative No hydronephrosis. Avoid nephrotoxic medication Heme: Normocytic anemia Acute thrombocytopenia Unlikely hit secondary to timeframe. Elevated haptoglobin/LDH and peripheral smear no signs of mellitus We will discontinue heparin drip in light of significant thrombocytopenia. Aspirin on hold. ID: Currently on piperacillin/tazobactam, vancomycin per infectious disease. For actively following Blood cultures no growth to date Fluconazole discontinued 01/17 FEN: Acute hypocalcemia Hypopotassemia Replace electrolytes as clinically indicated MSK: Elevated BMI Physical therapy evaluate and treat Weight loss encouraged Access -Right subclavian CVL day #6 placed 01/14 -Right brachial arterial line day #5 placed 01/15 Prophylaxis -GI-pantoprazole -DVT-SCD/holding pharmacological prophylaxis in light of severe thrombocytopenia Critical care time 35 minutes
[2018-01-19] MEDS: hydrALAZINE 25 MG Tablet PO SCH (17:21)
[2018-01-20] MEDS: Oral Hygiene Kit OROPHARYNG SCH ×5 (00:20→23:17)
[2018-01-20] MEDS: Artificial Tears Opth Drops 15 ML Bottle EACH EYE SCH ×4 (00:30→23:17)
[2018-01-20] MEDS: Insulin NovoLIN Regular Correctional Sugar Inj SQ SCH ×5 (00:30→23:18)
[2018-01-20] MEDS: Pantoprazole Inj 40 MG Vial IV.PUSH SCH ×2 (01:44→17:36)
[2018-01-20] MEDS: MethylPREDNISolone Sod Succinate Inj 40 MG/ML Vial IV.PUSH SCH ×3 (01:44→17:35)
[2018-01-20] MEDS: Piperacil/Tazo 2.25 GM Premix 50 ML IV.SIG SCH ×4 (01:48→21:16)
--- NOTE | 2018-01-20 03:54 | XR ---
EXAM DATE: 01/20/2018 3:48 AM EST AGE/SEX: 62 years / Male INDICATIONS: Shortness of breath, possible pulmonary disease. CLINICAL DATA: This is the patient's subsequent encounter. Patient reports that signs and symptoms h ave been present for 1 week and indicates a pain score of Nonresponsive. MEDICAL/SURGICAL HISTORY: Hypertension. Cerebrovascular disease. Diabetes. Chest tube, left. COMPARISON: C, CHEST 1V SINGLE AP, 01/19/2018. . FINDINGS: The endotracheal tube, nasogastric tube and left IJ Vas-Cath in good position. No significant central line is in good position. There is a pigtail catheter in the left lateral chest. Persistent pleural effusions remain. No residual pneumothorax is seen. CONCLUSION: Pleural effusions and bibasilar atelectasis persist. Tubes and catheters all in excellent position Electronically signed by: Tariq Garcia MD 01/20/2018 3:53 AM EST
[2018-01-20 05:36] LABS: Baso % (Auto) 0.3 % (0.0-2.0); Hematocrit 27.8 % (39.0-51.0); Hemoglobin 9.8 gm/dL (13.0-17.0); Lymph # (Auto) 0.5 th/mm3 (1.0-4.8); Lymph % (Auto) 4.7 % (9.0-44.0); Mean Corpuscular HGB Conc 35.1 % (32.0-36.0); Mean Corpuscular Hemoglobin 31.7 pg (27.0-34.0); Mean Corpuscular Volume 90.3 fL (80.0-100.0); Mean Platelet Volume 9.3 fL (7.0-11.0); Mono # (Auto) 0.9 th/mm3 (0.0-0.9); Mono % (Auto) 8.7 % (0.0-8.0); Neut % (Auto) 86.3 % (16.0-70.0); Platelet Count 118 th/mm3 (150-450); Red Blood Count 3.08 mil/mm3 (4.50-5.90); Red Cell Distribution Width 14.5 % (11.6-17.2); White Blood Count 10.5 th/mm3 (4.0-11.0)
[2018-01-20] MEDS: Levothyroxine 88 MCG Tablet PO SCH (05:44)
[2018-01-20 06:07] LABS: Albumin 2.6 g/dL (3.4-5.0); Carbon Dioxide 28.1 meq/L (21.0-32.0); Potassium 3.3 meq/L (3.5-5.1)
[2018-01-20 06:08] LABS: Phosphorus 3.3 mg/dL (2.5-4.9)
[2018-01-20] MEDS: Senna/Docusate Sodium 8.6/50 MG Tablet PO SCH ×2 (08:52→21:17)
[2018-01-20] MEDS: hydrALAZINE 25 MG Tablet PO SCH ×3 (08:52→17:35)
[2018-01-20] MEDS: Chlorhexidine 0.12% Oral Kit 15 ML UDC OROPHARYNG SCH ×2 (08:53→21:16)
[2018-01-20 09:25] LABS: Lymphocytes 3 % (9-44); Monocytes 5 % (0-8); Myelocytes 3 % (0-0); Tallied Nucleated RBC 1 (0-0)
[2018-01-20 09:26] LABS: Dimorphic RBC Present; Platelet Morphology Normal (Normal); Toxic Granulation 1+
--- NOTE | 2018-01-20 12:32 | P.PNCC ---
Subjective Subjective Remarks/Hospital Course: 62-year-old male patient presents because he was found down by family, on evaluation by EMS he had notable seizures, and they had tried Versed without success, he was vomiting dark material. They tried to intubate him for airway protection, but were unable to intubate him. However, the seizures had stopped at that point. He was obtunded in the ER and was intubated by ED attending. Shortly after intubation patient lost his pulses and CPR was initiated. He has regained spontaneous circulation after 2 cycles of CPR and injections of epinephrine. There was significant subcutaneous emphysema noticed and the patient was rushed to CT for the CT of the head chest and abdomen that showed large bilateral pneumothoraces, as well as free air in peritoneal cavity. Bilateral chest tubes were placed immediately in the emergency department. The free air in the peritoneum with was discussed with the surgeon it applications developer Dr. Jimenez. It was felt the air in abdominal cavity is more likely leak from the chest cavity from bilateral tension pneumothoraces and observation without emergent surgical intervention was recommended. The patient was transferred to ICU where he suffered another cardiac arrest. He has regained again spontaneous circulation post 2 cycles of CPR, 2 A of sodium bicarb and 2 A of epinephrine. The patient's was updated about the critical condition at the bedside. 01/15: Patient remains critically ill on max dose of norepinephrine, vasopressin , and epinephrine. His oxygenation overnight has somehow improved with Flolan infusion, however still requiring aggressive APRV mode of ventilation. 01/16: Off all vasopressors. Oxygenation stable. Switch from AP RV to NE VC. Will attempt MRI brain due to neglect and left sided weakness exam. CT thorax with oral contrast to rule out esophageal perforation. Recheck abdomen pelvis today. Remains on fluconazole, piperacillin/tazobactam and, vancomycin infectious disease. Heparin drip discontinued secondary to acute drop in platelets. Fibrinogen pending. Haptoglobin LDH and smear pending. 01/17: Afebrile. Remains off all vasopressors. Minimal urine output overnight. Plan for hemodialysis today once platelets arrived. Minimal output from chest tubes bilaterally. FiO2 down to 40%. PEEP down to 10. 01/18: Afebrile. -3.5 L with hemodialysis today. Off all vasopressors. Will attempt sedation vacation later on this morning. FiO2 down to 40%. PEEP down to 5. 01/19: Bradycardic. Will attempt to exchange bite block today. Minimal output from chest tubes. Hemodialysis ongoing currently. Subjective 01/20: Remains bradycardic. Beta-cristian has been removed. Minimal output from chest tubes. Afebrile. Will attempt to wean ventilator using dexmedetomidine drip. Objective Vital Signs / I&O: Vital Signs 01/19/18 13:00 01/19/18 13:30 01/19/18 14:00 Temperature Pulse Rate 64 52 L Respiratory Rate 16 16 16 Blood Pressure 124/72 122/74 Pulse Oximetry 97 96 96 01/19/18 14:59 01/19/18 15:00 01/19/18 16:00 Temperature 98.4 F Pulse Rate 51 L 56 L 53 L Respiratory Rate 16 0 L 16 Blood Pressure 144/82 H 141/82 H Pulse Oximetry 99 97 01/19/18 16:33 01/19/18 17:00 01/19/18 18:00 Temperature Pulse Rate 62 79 Respiratory Rate 16 16 16 Blood Pressure 108/72 93/60 L Pulse Oximetry 98 99 98 01/19/18 19:00 01/19/18 19:59 01/19/18 20:00 Temperature 98.6 F Pulse Rate 91 H 77 75 Respiratory Rate 16 16 0 L Blood Pressure 97/66 L 99/65 L Pulse Oximetry 100 98 98 01/19/18 21:00 01/19/18 22:00 01/19/18 23:00 Temperature Pulse Rate 65 72 56 L Respiratory Rate 16 16 16 Blood Pressure 114/70 114/71 116/75 Pulse Oximetry 97 97 96 01/20/18 00:00 01/20/18 00:11 01/20/18 01:00 Temperature 98.3 F Pulse Rate 59 L 56 L 54 L Respiratory Rate 16 16 16 Blood Pressure 110/71 Pulse Oximetry 96 97 01/20/18 01:01 01/20/18 02:00 01/20/18 03:00 Temperature Pulse Rate 53 L 64 56 L Respiratory Rate 16 16 16 Blood Pressure 129/74 127/74 131/77 Pulse Oximetry 97 98 97 01/20/18 04:00 01/20/18 04:29 01/20/18 05:00 Temperature Pulse Rate 58 L 55 L 55 L Respiratory Rate 16 16 16 Blood Pressure 127/75 141/79 H Pulse Oximetry 97 100 97 01/20/18 06:00 01/20/18 07:57 01/20/18 08:00 Temperature 98.4 F Pulse Rate 68 61 58 L Respiratory Rate 16 16 16 Blood Pressure 114/70 132/73 Pulse Oximetry 96 99 99 01/20/18 10:43 01/20/18 11:33 Temperature Pulse Rate 65 Respiratory Rate 16 16 Blood Pressure Pulse Oximetry 97 Intake & Output 01/19/18 01/20/18 01/20/18 18:59 06:59 18:59 Intake Total 1139 / 1139 776 / 776 Output Total 33 / 33 42910 / 75191 Balance 1106 / 1106 -9254 / -9254 Weight 117 kg Intake: IV 655 / 655 255 / 255 Diflucan 400 mg Premix Bag 200 200 / 200 ML @ 100 mls/hr IV.SIG Q24H [facility] Rx#:[id number] Zosyn 2.25 GM Premix 50 ML @ 100 / 100 100 / 100 100 mls/hr IV.SIG Q6H [facility] Rx#: [id number] fentaNYL 10 mcg/mL Premix Drip 250 / 250 2,500 mcg In 250 ml @ 50 MCG/HR 5 mls/hr IV.SIG TITRATE PRN Rx #:[id number] Keppra Inj 500 MG In NS Inj 100 105 / 105 105 / 105 ML @ 400 mls/hr IV.SIG Q12H [facility] Rx#:[id number] Tube Feeding 484 / 484 461 / 461 Water Bolus Amount 60 / 60 Output: Urine Hemodialysis Amount 94509 / 72352 Urine Amount (Catheter) Indwelling Temp Sensing Catheter Gastric Drainage 0 / 0 Oral 0 / 0 Chest Tube Drainage 0 / 0 #1 Left Pleural 8 / 8 0 / 0 #2 Right Pleural 10 / 10 0 / 0 Other: Date of Last Bowel Movement 01/18/18 01/20/18 01/18/18 # Bowel Movements 3 # Incontinent Bowel Movements 1 Result Diagrams: 01/20/18 05:15 01/20/18 05:15 Other Results: Microbiology 01/15/18 03:30 Blood - Peripheral Aerobic Blood Culture - Final No growth in 5 days 01/15/18 03:30 Blood - Peripheral Anaerobic Blood Culture - Final No growth in 5 days 01/15/18 03:39 Blood - Peripheral Aerobic Blood Culture - Final No growth in 5 days 01/15/18 03:39 Blood - Peripheral Anaerobic Blood Culture - Final No growth in 5 days 01/16/18 17:30 Stool Stool Occult Blood (GINA) - Final Hemoccult positive Imaging: Cervical Spine CT 01/14/18 21:58 CONCLUSION: 1. No acute fracture or malalignment. 2. Subcutaneous emphysema again noted as well as the known right pneumothorax. Chest X-Ray 01/14/18 21:58 CONCLUSION: 1. ET tube in good position. 2. Subcutaneous emphysema clavicular and chest wall region. 3. Probable pneumomediastinum. Head CT 01/14/18 21:58 CONCLUSION: 1. No acute hemorrhage or mass effect. 2. Stable area of encephalomalacia in the right lateral lobe. . Chest CT 01/14/18 22:54 CONCLUSION: 1. Bilateral pneumothoraces right greater than left. 2. Apparent pneumomediastinum with gas also dissecting into the right side of the retroperitoneum and anterior to the right kidney. 3. Linear collections of gas along the anterior inner abdominal wall which could represent collections of dissected free air. Subcutaneous emphysema is also noted. 4. Consolidation in both posterior lung bases and posterior hilar regions. 5. Small right pleural effusion. 6. Suboptimal study secondary to extensive motion artifact. This limits the sensitivity. These findings were called to the emergency room physician immediately after the study was performed. Abdomen X-Ray 01/15/18 00:00 CONCLUSION: 1. No free intraperitoneal air. 2. Residual small pneumothoraces with small chest tubes in place. Chest X-Ray 01/15/18 00:03 CONCLUSION: 1. Interval placement of bilateral small bore chest tubes. 2. Interval placement nasogastric tube and right subclavian central venous line. 3. There is consolidation again noted in both perihilar regions and retrocardiac region. 4. Small apparent residual right pneumothorax and pneumomediastinum again noted. Chest X-Ray 01/15/18 02:18 CONCLUSION: 1. Optimal examination mild motion artifact. 2. The right sided chest tube is not well visualized on the current study there is a left-sided chest tube appears unchanged. 3. Bilateral subcutaneous emphysema right greater than left with abnormal lucency projected over portions of both upper lobes concern for residual pneumothoraces. 4. Dense consolidation again noted in both lungs. Abdomen/Bladder Ultrasound 01/16/18 00:00 CONCLUSION: 1. Trace ascites. 2. Negative renal ultrasound Abdomen/Pelvis CT 01/16/18 00:00 CONCLUSION: 1. Minimal free intraperitoneal air. I don't see etiology for such 2. Dense consolidation both lung bases with small bilateral chest tubes 3. Trace pneumothorax on the left. No pneumothorax on the right. 4. Moderate fatty replacement to the liver with prominent gallbladder Chest CT 01/16/18 00:00 . CONCLUSION: 1. Dense consolidation in both lung bases small bore chest tubes evident. 2. Trace pneumothorax on the left 3. No significant fluid. Chest X-Ray 01/16/18 00:00 CONCLUSION: 1. [Interval decrease in pneumothoraces and pneumomediastinum apparent mild residual medial left upper lobe. 2. Diffuse airspace opacities remain. Head MRI 01/16/18 06:37 CONCLUSION: 1. 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 2. There is no restricted diffusion to suggest extension of or new infarct. Chest X-Ray 01/17/18 06:00 CONCLUSION: 1. Mild residual lucency along the medial upper lobes which most characteristic of residual pneumomediastinum. 2. There is no definite pneumothorax. 3. The smallbore left-sided chest tube remains in place. Previously noted right -sided chest tube is not well visualized. 4. Hazy opacity throughout both lungs without significant change. Chest X-Ray 01/17/18 10:31 CONCLUSION: 1. No pneumothorax status post placement of left internal jugular Vas-Cath which has its tip in superior vena cava. 2. Diffuse pulmonary infiltrates consistent with severe pulmonary edema versus pneumonia. 3. Multiple other tubes and lines are stable. 4. Cardiomegaly. Chest X-Ray 01/18/18 06:00 CONCLUSION: Bilateral airspace opacities and small pleural effusions persist without significant change. Chest X-Ray 01/19/18 06:00 CONCLUSION: Stable single view the chest. Tubes and catheter in good position. Bilateral pigtail catheters S chest tubes and pulmonary vascular congestion persist. Chest X-Ray 01/20/18 06:00 CONCLUSION: Pleural effusions and bibasilar atelectasis persist. Tubes and catheters all in excellent position Objective Remarks: GENERAL: 62-year-old male currently orotracheally treated with bilateral chest tubes critically ill SKIN: Warm and dry. No rash HEAD: Atraumatic. Normocephalic. EYES: Pupils equal and round. No scleral icterus. No injection or drainage. ENT: No nasal bleeding or discharge. Mucous membranes pink and moist. NECK: Trachea midline. No JVD. CARDIOVASCULAR: Regular rate and rhythm with ectopy. S1, S2. No murmur RESPIRATORY: Diminished breath sounds in the bases bilaterally. Crepitus improved subcutaneous emphysema. Bilateral pigtail chest tubes are in place at at -40 cmH2O GASTROINTESTINAL: Abdomen soft, non-tender, nondistended. Hypoactive bowel sounds appreciated. MUSCULOSKELETAL: Extremities without without significant peripheral edema. No obvious deformities. NEUROLOGICAL: Currently sedated on midazolam and fentanyl drips. Positive gag and cough. Minimal pupillary reflex. Assessment and Plan - Assessment and Plan Plan: Neuro/Psych: Bipolar disorder History of right parietal CVA 2009 EtOH abuse Acute seizure Patient is currently on midazolam drip at 2 mg an hour and fentanyl drip at 50 mcg/h for sedation/analgesia while intubated Goal of RA SS -[address] brain admission revealed right parietal region encephalomalacia. EEG 01/15 revealed no epileptic activity. Slowing MRI brain ordered revealed stable right sylvian infarct/old. No acute findings Holding home medication gabapentin 300 mg twice daily and ketamine 50 mg daily and sertraline 50 mg daily Vitamin bag daily times 3 days. Monitor for DTs Remains on levetiracetam 500 mg IV twice daily CV: Non-STEMI Elevated troponin Severe shock resolving History of essential hypertension History of hyperlipidemia Cardia Evaluated by cardiology/Dr. Gomez Started on carvedilol 3.125 mg twice daily. Held in light of bradycardia Holding valsartan 80 mg daily in light of acute kidney injury. Holding atorvastatin 20 mg daily in light of acute liver injury. 2D echocardiogram revealed EF 55-60%. Mild LVH. PAP 31 mmHg. Currently normal sinus rhythm no ectopy. Flowtrack reveals cardiac index around 2.4. Aspirin and heparin drip held due to severe thrombocytopenia Resp: Acute respiratory failure Bilateral pneumothoraces/pneumomediastinum Gastroesophageal reflux disease on pantoprazole at home NE VC. Rate of 18. Tidal volume around 550. I time 1.0. PEEP of 5. FiO2 of 40%. Remains on epoprostenol aerosolized Albuterol/ipratropium aerosols every 4 hours albuterol every 2 hours as needed dyspnea CT thorax revealed tiny left apical pneumothorax. Bilateral chest tubes in place. Dense consolidation bilateral lower lobes Chest x-ray today again revealed improved subcutaneous emphysema/improvement of bilateral pneumothoraces. Unable to identify right chest tube Maintain chest tubes at -40 cmH2O. Monitor output On methylprednisolone succinate 40 mg IV every 8 hours GI: Elevated LFTs Pneumoperitoneum with right retroperitoneal gas/gas around the right kidney Elevated ammonia CT abdomen/pelvis revealed gas in the anterior mediastinum/right retrocrural peritoneal gas/stranding right kidney.. Repeat 01/16 revealed tiny intrarenal for note on no obvious source. In ED this case was discussed with Dr. Jimenez/on-call physician. Believe this was secondary to bilateral pneumothoraces. No surgical intervention. Check lactate and CPK now Recheck CT abdomen/pelvis now. Will likely initiate tube feeding if no signs of esophageal perforation on CT with contrast of thorax Would recommend Nepro in light of acute kidney injury Pantoprazole for GI prophylaxis Docusate sodium/senna 1 tablet twice daily for bowel regimen Ultrasound tests again revealed severe hepatic steatosis likely EtOH cirrhosis/ ischemia/CPK elevation. On lactulose 30 cc twice daily : Og catheter has been placed for accurate I's and O's in a critically ill patient Endo: History of diabetes mellitus History of hypothyroidism Glimepiride 2 mg twice daily is currently on hold. Sliding scale insulin regular insulin to maintain euglycemia Continue levothyroxine 88 mcg daily. TSH was 0.611 Renal: Acute kidney injury Rhabdomyolysis Currently on hemodialysis 01/17/01/18 and 01/19 Nephrology consultation appreciated Renal ultrasound prophylaxis. Urine eosinophils negative No hydronephrosis. Avoid nephrotoxic medication Heme: Normocytic anemia Acute thrombocytopenia Unlikely hit secondary to timeframe. Elevated haptoglobin/LDH and peripheral smear no signs of mellitus We will discontinue heparin drip in light of significant thrombocytopenia. Aspirin on hold. ID: Currently on piperacillin/tazobactam, vancomycin per infectious disease. For actively following Blood cultures no growth to date Fluconazole discontinued 01/17 FEN: Hypopotassemia Replace electrolytes as clinically indicated. 10 mg IV potassium x1 now. MSK: Elevated BMI Physical therapy evaluate and treat Weight loss encouraged Access -Right subclavian CVL day #7 placed 01/14 -Right brachial arterial line day #6 placed 01/15 Prophylaxis -GI-pantoprazole -DVT-SCD/holding pharmacological prophylaxis restarted today with heparin 5000 units subcu Critical care time 35 minutes
[2018-01-20] MEDS ORDERED: Potassium Chlor 10 mEq Premix 10 MEQ/100 ML PIGGYBACK IV.SIG ONE (13:00)
--- NOTE | 2018-01-20 13:12 | P.PNNP ---
Subjective Interval history: Patient remains intubated on ventilatory support. No meaningful response to noxious stimuli. Physical Exam Vital signs: Vital Signs 01/19/18 13:30 01/19/18 14:00 01/19/18 14:59 Temperature Pulse Rate 52 L 51 L Respiratory Rate 16 16 16 Blood Pressure 122/74 Pulse Oximetry 96 96 01/19/18 15:00 01/19/18 16:00 01/19/18 16:33 Temperature 98.4 F Pulse Rate 56 L 53 L Respiratory Rate 0 L 16 16 Blood Pressure 144/82 H 141/82 H Pulse Oximetry 99 97 98 01/19/18 17:00 01/19/18 18:00 01/19/18 19:00 Temperature Pulse Rate 62 79 91 H Respiratory Rate 16 16 16 Blood Pressure 108/72 93/60 L 97/66 L Pulse Oximetry 99 98 100 01/19/18 19:59 01/19/18 20:00 01/19/18 21:00 Temperature 98.6 F Pulse Rate 77 75 65 Respiratory Rate 16 0 L 16 Blood Pressure 99/65 L 114/70 Pulse Oximetry 98 98 97 01/19/18 22:00 01/19/18 23:00 01/20/18 00:00 Temperature 98.3 F Pulse Rate 72 56 L 59 L Respiratory Rate 16 16 16 Blood Pressure 114/71 116/75 110/71 Pulse Oximetry 97 96 96 01/20/18 00:11 01/20/18 01:00 01/20/18 01:01 Temperature Pulse Rate 56 L 54 L 53 L Respiratory Rate 16 16 16 Blood Pressure 129/74 Pulse Oximetry 97 97 01/20/18 02:00 01/20/18 03:00 01/20/18 04:00 Temperature Pulse Rate 64 56 L 58 L Respiratory Rate 16 16 16 Blood Pressure 127/74 131/77 127/75 Pulse Oximetry 98 97 97 01/20/18 04:29 01/20/18 05:00 01/20/18 06:00 Temperature Pulse Rate 55 L 55 L 68 Respiratory Rate 16 16 16 Blood Pressure 141/79 H 114/70 Pulse Oximetry 100 97 96 01/20/18 07:57 01/20/18 08:00 01/20/18 10:43 Temperature 98.4 F Pulse Rate 61 58 L Respiratory Rate 16 16 16 Blood Pressure 132/73 Pulse Oximetry 99 99 97 01/20/18 11:33 01/20/18 12:00 01/20/18 13:03 Temperature 98.3 F Pulse Rate 65 68 Respiratory Rate 16 16 16 Blood Pressure 160/86 H Pulse Oximetry 99 99 Intake & Output 01/19/18 01/20/18 01/20/18 18:59 06:59 18:59 Intake Total 1139 / 1139 776 / 776 Output Total 45172 / 71665 Balance 1106 / 1106 -9254 / -9254 Weight 117 kg Intake: IV 655 / 655 255 / 255 Diflucan 400 mg Premix Bag 200 200 / 200 ML @ 100 mls/hr IV.SIG Q24H [facility] Rx#:[id number] Zosyn 2.25 GM Premix 50 ML @ 100 / 100 100 / 100 100 mls/hr IV.SIG Q6H [facility] Rx#: [id number] fentaNYL 10 mcg/mL Premix Drip 250 / 250 2,500 mcg In 250 ml @ 50 MCG/HR 5 mls/hr IV.SIG TITRATE PRN Rx #:[id number] Keppra Inj 500 MG In NS Inj 100 105 / 105 105 / 105 ML @ 400 mls/hr IV.SIG Q12H [facility] Rx#:[id number] Tube Feeding 484 / 484 461 / 461 Water Bolus Amount 60 / 60 Output: Urine Hemodialysis Amount 06914 / 26214 Urine Amount (Catheter) Indwelling Temp Sensing Catheter Gastric Drainage 0 / 0 Oral 0 / 0 Chest Tube Drainage 0 / 0 #1 Left Pleural 8 / 8 0 / 0 #2 Right Pleural 10 / 10 0 / 0 Other: Date of Last Bowel Movement 01/18/18 01/20/18 01/18/18 # Bowel Movements 3 # Incontinent Bowel Movements 1 Narrative: GENERAL: Obese male lying in bed with an ET tube in place on ventilatory support. SKIN: Warm and dry. HEAD: Normocephalic. Periorbital edema. EYES: No scleral icterus. No injection or drainage. NECK: Supple, trachea midline. No JVD . CARDIOVASCULAR: Regular rate and rhythm without murmurs, gallops, or rubs. RESPIRATORY: Breath sounds equal bilaterally. No accessory muscle use. GASTROINTESTINAL: Abdomen soft, non-tender, distended but not tender. MUSCULOSKELETAL: No cyanosis, trace edema of the limbs. BACK: Nontender without obvious deformity. No CVA tenderness. - Urinary Catheter Management Indwelling Temp Sensing Catheter Cath placed during this visit: yes Reason for continuing: Other continuation reason Insertion date: 01/14/18 Insertion time: 22:00 Assessment and Plan - Assessment (1) Acute renal failure Code(s): N17.9 - Acute kidney failure, unspecified Status: Acute Plan: Remains HD dependent. Volume status improved but still oliguric. Plan for hemodialysis tomorrow. Given history of alcohol abuse, sepsis, rhabdomyolysis, respiratory insufficiency and hepatic dysfunction he remains critically ill with guarded prognosis. Medications should be adjusted for the patient's estimated GFR if clinically indicated. Avoid agents with significant potential for nephrotoxicity possible including NSAIDs for analgesia, iodine contrast agents. Gadolinium is contraindicated if the GFR is below 30. (2) Alcohol abuse Code(s): F10.10 - Alcohol abuse, uncomplicated Status: Acute (3) Alcohol withdrawal seizure with complication Code(s): F10.239 - Alcohol dependence with withdrawal, unspecified; R56.9 - Unspecified convulsions Status: Acute (4) Rhabdomyolysis Code(s): M62.82 - Rhabdomyolysis Status: Acute Plan: Related to previous seizure. CPK improving
[2018-01-20] MEDS: Heparin - SQ 10,000 UNITS/ML Vial SQ SCH ×2 (17:36→21:16)
[2018-01-20] MEDS: Dexmedetomidine Inj 200 MCG in Sodium Chlor 0.9% Inj 48 ML IV.CONT PRN (21:11)
[2018-01-20] MEDS: hydrALAZINE HCl Inj 20 MG/ML Vial IV.PUSH PRN (23:16)
--- NOTE | 2018-01-21 02:04 | XR ---
EXAM DATE: 01/21/2018 1:45 AM EST AGE/SEX: 62 years / Male INDICATIONS: Shortness of breath, possible pulmonary disease. CLINICAL DATA: This is the patient's subsequent encounter. Patient reports that signs and symptoms h ave been present for 1 week and indicates a pain score of Nonresponsive. MEDICAL/SURGICAL HISTORY: Hypertension. Diabetes. Cerebrovascular disease. Chest tube, left. COMPARISON: [facility] [place], CHEST 1V SINGLE AP, 01/20/2018. . FINDINGS: Single AP view the chest. Endotracheal tube, nasogastric tube, right subclavian central venous cathet er remain in place. Persistent bilateral pulmonary parenchymal opacity and cardiac silhouette enlarge ment. No significant interval change. No evidence of pneumothorax. CONCLUSION: No change in bilateral pulmonary opacity likely representing pulmonary edema. Electronically signed by: Osman Saha MD 01/21/2018 2:02 AM EST
[2018-01-21] MEDS: hydrALAZINE HCl Inj 20 MG/ML Vial IV.PUSH PRN (02:08)
[2018-01-21] MEDS: Pantoprazole Inj 40 MG Vial IV.PUSH SCH ×2 (02:11→13:21)
[2018-01-21] MEDS: Piperacil/Tazo 2.25 GM Premix 50 ML IV.SIG SCH ×4 (02:11→19:49)
[2018-01-21] MEDS: MethylPREDNISolone Sod Succinate Inj 40 MG/ML Vial IV.PUSH SCH ×3 (02:11→20:23)
[2018-01-21] MEDS: Dexmedetomidine Inj 200 MCG in Sodium Chlor 0.9% Inj 48 ML IV.CONT PRN ×4 (02:13→19:45)
[2018-01-21 04:55] LABS: Baso % (Auto) 0.2 % (0.0-2.0); Hematocrit 28.1 % (39.0-51.0); Hemoglobin 9.7 gm/dL (13.0-17.0); Lymph # (Auto) 0.5 th/mm3 (1.0-4.8); Lymph % (Auto) 3.8 % (9.0-44.0); Mean Corpuscular HGB Conc 34.3 % (32.0-36.0); Mean Corpuscular Hemoglobin 31.2 pg (27.0-34.0); Mean Corpuscular Volume 90.7 fL (80.0-100.0); Mean Platelet Volume 9.4 fL (7.0-11.0); Mono # (Auto) 1.2 th/mm3 (0.0-0.9); Mono % (Auto) 9.7 % (0.0-8.0); Neut # (Auto) 10.8 th/mm3 (1.8-7.7); Neut % (Auto) 86.3 % (16.0-70.0); Platelet Count 123 th/mm3 (150-450); Red Cell Distribution Width 14.3 % (11.6-17.2); White Blood Count 12.5 th/mm3 (4.0-11.0)
[2018-01-21 05:33] LABS: Alanine Aminotransferase 557 U/L (12-78); Albumin 2.5 g/dL (3.4-5.0); Alkaline Phosphatase 237 U/L (45-117); Anion Gap 16 meq/L (5-15); Aspartate Aminotransferase 262 U/L (15-37); Blood Urea Nitrogen 109 mg/dL (7-18); Calcium 8.4 mg/dL (8.5-10.1); Chloride 100 meq/L (98-107); Glomerular Filtration Rate 7 mL/min (>89); Glucose,Random 384 mg/dL (74-106); Magnesium 2.2 mg/dL (1.5-2.5); Phosphorus 4.5 mg/dL (2.5-4.9); Potassium 3.4 meq/L (3.5-5.1); Sodium 142 meq/L (136-145); Total Protein 5.6 g/dL (6.4-8.2)
[2018-01-21] MEDS: Heparin - SQ 10,000 UNITS/ML Vial SQ SCH ×3 (05:53→22:35)
[2018-01-21] MEDS: Oral Hygiene Kit OROPHARYNG SCH ×3 (05:54→18:04)
[2018-01-21] MEDS: Levothyroxine 88 MCG Tablet PO SCH (05:54)
[2018-01-21] MEDS: Insulin NovoLIN Regular Correctional Sugar Inj SQ SCH ×3 (05:56→18:04)
[2018-01-21] MEDS: Chlorhexidine 0.12% Oral Kit 15 ML UDC OROPHARYNG SCH ×2 (08:30→20:23)
[2018-01-21] MEDS: Artificial Tears Opth Drops 15 ML Bottle EACH EYE SCH ×2 (08:34→18:04)
[2018-01-21] MEDS: Senna/Docusate Sodium 8.6/50 MG Tablet PO SCH ×2 (08:34→20:24)
[2018-01-21] MEDS: hydrALAZINE 25 MG Tablet PO SCH ×3 (08:34→18:04)
[2018-01-21 11:24] LABS: Lymphocytes 3 % (9-44); Metamyelocytes 8 % (0-1); Monocytes 4 % (0-8); Myelocytes 1 % (0-0); Toxic Granulation 2+
--- NOTE | 2018-01-21 11:34 | P.PNNP ---
Subjective Interval history: Patient intubated on ventilator support. No meaningful response noted. Physical Exam Vital signs: Vital Signs 01/20/18 12:00 01/20/18 13:00 01/20/18 13:03 Temperature 98.3 F Pulse Rate 66 69 Respiratory Rate 16 16 16 Blood Pressure 160/86 H 162/85 H Pulse Oximetry 99 99 99 01/20/18 14:00 01/20/18 14:32 01/20/18 15:00 Temperature Pulse Rate 66 96 H 78 Respiratory Rate 16 16 16 Blood Pressure 160/83 H 147/86 H Pulse Oximetry 98 100 01/20/18 16:00 01/20/18 16:34 01/20/18 16:45 Temperature 98.6 F Pulse Rate 84 Respiratory Rate 16 8 L Blood Pressure 132/78 Pulse Oximetry 96 99 97 01/20/18 17:00 01/20/18 18:00 01/20/18 19:00 Temperature Pulse Rate 70 75 62 Respiratory Rate 16 16 16 Blood Pressure 129/78 108/62 146/77 H Pulse Oximetry 96 96 96 01/20/18 19:29 01/20/18 19:45 01/20/18 20:00 Temperature 99 F Pulse Rate 79 89 75 Respiratory Rate 16 16 16 Blood Pressure 176/94 H 149/78 H Pulse Oximetry 100 97 01/20/18 20:30 01/20/18 21:00 01/20/18 22:00 Temperature Pulse Rate 65 83 Respiratory Rate 16 16 16 Blood Pressure 167/91 H 135/77 Pulse Oximetry 100 95 95 01/20/18 23:00 01/20/18 23:21 01/20/18 23:39 Temperature Pulse Rate 74 71 75 Respiratory Rate 16 16 16 Blood Pressure 173/89 H 148/78 H Pulse Oximetry 98 95 01/21/18 00:00 01/21/18 00:30 01/21/18 00:43 Temperature 98.2 F Pulse Rate 71 120 H 87 Respiratory Rate 16 24 19 Blood Pressure 163/78 H 148/94 H 172/89 H Pulse Oximetry 95 97 92 L 01/21/18 01:00 01/21/18 01:30 01/21/18 01:52 Temperature Pulse Rate 81 69 Respiratory Rate 18 17 16 Blood Pressure 159/91 H 168/92 H Pulse Oximetry 93 L 93 L 95 01/21/18 02:00 01/21/18 02:30 01/21/18 02:49 Temperature Pulse Rate 67 79 70 Respiratory Rate 16 20 16 Blood Pressure 170/89 H 153/84 H Pulse Oximetry 95 96 01/21/18 03:00 01/21/18 03:30 01/21/18 04:00 Temperature 97.8 F Pulse Rate 66 61 58 L Respiratory Rate 17 17 16 Blood Pressure 142/75 H 143/77 H 147/79 H Pulse Oximetry 95 95 96 01/21/18 04:05 01/21/18 04:30 01/21/18 05:00 Temperature Pulse Rate 64 88 Respiratory Rate 16 17 20 Blood Pressure 135/73 162/91 H Pulse Oximetry 95 97 100 01/21/18 05:30 01/21/18 06:00 01/21/18 06:01 Temperature Pulse Rate 77 74 70 Respiratory Rate 16 18 17 Blood Pressure 151/84 H 178/88 H Pulse Oximetry 100 100 100 01/21/18 06:15 01/21/18 06:30 01/21/18 06:45 Temperature Pulse Rate 93 H 112 H 111 H Respiratory Rate 20 16 19 Blood Pressure 144/70 H 106/64 119/74 Pulse Oximetry 97 99 95 01/21/18 07:00 01/21/18 07:15 01/21/18 07:30 Temperature Pulse Rate 87 79 75 Respiratory Rate 17 19 20 Blood Pressure 160/84 H 154/91 H 157/97 H Pulse Oximetry 98 98 97 01/21/18 07:45 01/21/18 07:50 01/21/18 08:00 Temperature 98.2 F Pulse Rate 77 90 Respiratory Rate 17 21 16 Blood Pressure 141/92 H 180/94 H Pulse Oximetry 98 100 100 01/21/18 08:33 01/21/18 08:45 Temperature Pulse Rate 76 70 Respiratory Rate 16 19 Blood Pressure 180/95 H 178/98 H Pulse Oximetry 100 100 Intake & Output 01/20/18 01/21/18 01/21/18 18:59 06:59 18:59 Intake Total 686 / 686 1383 / 1383 Output Total 185 / 185 Balance 686 / 686 1198 / 1198 Weight 117 kg Intake: IV 100 / 100 710 / 710 Precedex Inj 200 MCG In NS Inj 100 / 100 48 ML @ 0.2 MCG/KG/HR 5.85 mls/ hr IV.CONT TITRATE PRN Rx#: [id number] Diflucan 400 mg Premix Bag 200 200 / 200 ML @ 100 mls/hr IV.SIG Q24H [facility] Rx#:[id number] Zosyn 2.25 GM Premix 50 ML @ 100 / 100 100 / 100 100 mls/hr IV.SIG Q6H [facility] Rx#: [id number] Keppra Inj 500 MG In NS Inj 100 210 / 210 ML @ 400 mls/hr IV.SIG Q12H [facility] Rx#:[id number] Tube Feeding 486 / 486 433 / 433 Tube Irrigant 240 / 240 Water Bolus Amount 100 / 100 Output: Urine Amount (Catheter) 75 / 75 Indwelling Temp Sensing 75 / 75 Catheter Chest Tube Drainage 110 / 110 #1 Left Pleural 40 / 40 #2 Right Pleural 70 / 70 Other: Date of Last Bowel Movement 01/20/18 01/21/18 01/21/18 # Incontinent Bowel Movements 2 Narrative: GENERAL: Obese male lying in bed with an ET tube in place on ventilatory support. SKIN: Warm and dry. HEAD: Normocephalic. Periorbital edema. EYES: No scleral icterus. No injection or drainage. NECK: Supple, trachea midline. No JVD . CARDIOVASCULAR: Regular rate and rhythm without murmurs, gallops, or rubs. RESPIRATORY: Breath sounds equal bilaterally. No accessory muscle use. GASTROINTESTINAL: Abdomen soft, non-tender, distended but not tender. MUSCULOSKELETAL: No cyanosis, 1+ edema of the limbs. BACK: Nontender without obvious deformity. No CVA tenderness. - Urinary Catheter Management Indwelling Temp Sensing Catheter Cath placed during this visit: yes Reason for continuing: Other continuation reason Insertion date: 01/14/18 Insertion time: 22:00 Assessment and Plan - Assessment (1) Acute renal failure Code(s): N17.9 - Acute kidney failure, unspecified Status: Acute Plan: Remains HD dependent. No evidence of renal recovery at this point in time. Patient was seen during his dialysis session today. Dialysis access is working well and patient appears to be hemodynamically stable on dialysis today. Given history of alcohol abuse, sepsis, rhabdomyolysis, respiratory insufficiency and hepatic dysfunction he remains critically ill with guarded prognosis. Medications should be adjusted for the patient's estimated GFR if clinically indicated. Avoid agents with significant potential for nephrotoxicity possible including NSAIDs for analgesia, iodine contrast agents. Gadolinium is contraindicated if the GFR is below 30. (2) Alcohol abuse Code(s): F10.10 - Alcohol abuse, uncomplicated Status: Acute (3) Alcohol withdrawal seizure with complication Code(s): F10.239 - Alcohol dependence with withdrawal, unspecified; R56.9 - Unspecified convulsions Status: Acute (4) Rhabdomyolysis Code(s): M62.82 - Rhabdomyolysis Status: Acute Plan: Related to previous seizure. CPK improving
--- NOTE | 2018-01-21 16:07 | P.DIET ---
Nutritional Evaluation Type of nutrition evaluation: follow-up Nutrition consult regarding: Tube Feeding Objective - Diagnosis Seizures/Respiratory Distress/Intubated - Objective % IBW: 150 Body Weight Used for Calculations: IBW (75.5 kg) Energy Needs - Lower Range (kCal/kg): 30 Energy Needs - Upper Range (kCal/kg): 35 Lower Limit kCal/kg (kCals): 2,264 Upper Limit kCal/kg (kCals): 2,643 Lower Limit Protein Factor (Grams per Kg): 1.2 Upper Limit Protein Factor (Grams per Kg): 1.5 Lower Protein Needs (Protein): 91 Upper Protein Needs (Protein): 113 Dietitian Reviewed in Medical Record: Curent medications, Intake & Output, Labs , Medical history, Tube feeding Diet Order: TF'ing Nepro @ goal rate 40ml/hr Objective Comments: PMH includes: Anxiety, CVA, DM, ETOH Abuse, HTN, Alcohol Abuse Labs include: BUN 109, Creatinine 7.65, estGFR 7.0, Glucose 384, POC Glucose 184 , Phosphorus 4.5 Meds include: Novolin R, Lactulose, Synthroid LBM 01/21 Feeding - Current Tube Feeding Tube Feeding Product: Nepro Tube Feeding Rate: 40 Current kCals Provided by Tube Feedin,584 Current Protein Provided by Tube Feeding (gPRO): 71 Medications That Affect Tube Feeding Run Time: Synthroid Total Time Off: 2 hours Current Free H2O Provided (m/l): 640 Assessment Assessment: Pt is at nutritional risk r/t diagnosis and need for TF'ing. Pt is now HD dependent. for TF'ing w/Nepro, Rec goal rate @ 60ml/hr x 22-hr(TF'ing held for Synthroid 1-hr before and 1-hr after administering med)to offer 2376 kcal, 107g protein and 960ml free water. Labs/electrolytes reviewed. Wt changes noted. Dietitian following. Recommendations: 1. For TF'ing w/Nepro, Rec goal rate @ 60ml/hr x 22-hr(TF'ing held for Synthroid 1-hr before and 1-hr after administering med) 2. Dietitian following Dietitian to Monitor: Lab values, Electrolytes, Renal labs, Glucose level, Intake & Output, Tube feeding tolerance, Weight change, Medical course
--- NOTE | 2018-01-21 17:25 | P.PNID ---
Subjective Remarks: seen during HD afebrile pt makes no urine off pressors no fever Nl WBC all cultures negative to date Antibiotics: zosyn fluconazl Allergies/Adverse Reactions: Allergies erythromycin base Allergy (Severe, Verified 01/14/18 03:00) Hives penicillin G Allergy (Severe, Verified 01/14/18 03:00) Hives Objective Vital Signs 01/20/18 18:00 01/20/18 19:00 01/20/18 19:29 Temperature Pulse Rate 75 62 79 Respiratory Rate 16 16 16 Blood Pressure 108/62 146/77 H 176/94 H Pulse Oximetry 96 96 100 01/20/18 19:45 01/20/18 20:00 01/20/18 20:30 Temperature 99 F Pulse Rate 89 75 Respiratory Rate 16 16 16 Blood Pressure 149/78 H Pulse Oximetry 97 100 01/20/18 21:00 01/20/18 22:00 01/20/18 23:00 Temperature Pulse Rate 65 83 74 Respiratory Rate 16 16 16 Blood Pressure 167/91 H 135/77 173/89 H Pulse Oximetry 95 95 98 01/20/18 23:21 01/20/18 23:39 01/21/18 00:00 Temperature 98.2 F Pulse Rate 71 75 71 Respiratory Rate 16 16 16 Blood Pressure 148/78 H 163/78 H Pulse Oximetry 95 95 01/21/18 00:30 01/21/18 00:43 01/21/18 01:00 Temperature Pulse Rate 120 H 87 81 Respiratory Rate 24 19 18 Blood Pressure 148/94 H 172/89 H 159/91 H Pulse Oximetry 97 92 L 93 L 01/21/18 01:30 01/21/18 01:52 01/21/18 02:00 Temperature Pulse Rate 69 67 Respiratory Rate 17 16 16 Blood Pressure 168/92 H 170/89 H Pulse Oximetry 93 L 95 95 01/21/18 02:30 01/21/18 02:49 01/21/18 03:00 Temperature Pulse Rate 79 70 66 Respiratory Rate 20 16 17 Blood Pressure 153/84 H 142/75 H Pulse Oximetry 96 95 01/21/18 03:30 01/21/18 04:00 01/21/18 04:05 Temperature 97.8 F Pulse Rate 61 58 L Respiratory Rate 17 16 16 Blood Pressure 143/77 H 147/79 H Pulse Oximetry 95 96 95 01/21/18 04:30 01/21/18 05:00 01/21/18 05:30 Temperature Pulse Rate 64 88 77 Respiratory Rate 17 20 16 Blood Pressure 135/73 162/91 H 151/84 H Pulse Oximetry 97 100 100 01/21/18 06:00 01/21/18 06:01 01/21/18 06:15 Temperature Pulse Rate 74 70 93 H Respiratory Rate 18 17 20 Blood Pressure 178/88 H 144/70 H Pulse Oximetry 100 100 97 01/21/18 06:30 01/21/18 06:45 01/21/18 07:00 Temperature Pulse Rate 112 H 111 H 87 Respiratory Rate 16 19 17 Blood Pressure 106/64 119/74 160/84 H Pulse Oximetry 99 95 98 01/21/18 07:15 01/21/18 07:30 01/21/18 07:45 Temperature Pulse Rate 79 75 77 Respiratory Rate 19 20 17 Blood Pressure 154/91 H 157/97 H 141/92 H Pulse Oximetry 98 97 98 01/21/18 07:50 01/21/18 08:00 01/21/18 08:33 Temperature 98.2 F Pulse Rate 90 76 Respiratory Rate 21 16 16 Blood Pressure 180/94 H 180/95 H Pulse Oximetry 100 100 100 01/21/18 08:45 01/21/18 12:02 01/21/18 12:03 Temperature Pulse Rate 70 70 Respiratory Rate 19 23 23 Blood Pressure 178/98 H Pulse Oximetry 100 99 01/21/18 15:00 01/21/18 16:22 Temperature Pulse Rate 102 H Respiratory Rate 19 19 Blood Pressure Pulse Oximetry Intake & Output 01/20/18 01/21/18 01/21/18 18:59 06:59 18:59 Intake Total 686 / 686 1383 / 1383 100 / 100 Output Total 185 / 185 4000 / 4000 Balance 686 / 686 1198 / 1198 -3900 / -3900 Weight 117 kg Intake: IV 100 / 100 710 / 710 100 / 100 Precedex Inj 200 MCG In NS Inj 100 / 100 50 / 50 48 ML @ 0.2 MCG/KG/HR 5.85 mls/ hr IV.CONT TITRATE PRN Rx#: [id number] Diflucan 400 mg Premix Bag 200 200 / 200 ML @ 100 mls/hr IV.SIG Q24H [facility] Rx#:[id number] Zosyn 2.25 GM Premix 50 ML @ 100 / 100 100 / 100 50 / 50 100 mls/hr IV.SIG Q6H [facility] Rx#: [id number] Keppra Inj 500 MG In NS Inj 100 210 / 210 ML @ 400 mls/hr IV.SIG Q12H [facility] Rx#:[id number] Tube Feeding 486 / 486 433 / 433 Tube Irrigant 240 / 240 Water Bolus Amount 100 / 100 Output: Hemodialysis Amount 4000 / 4000 Urine Amount (Catheter) 75 / 75 Indwelling Temp Sensing 75 / 75 Catheter Chest Tube Drainage 110 / 110 #1 Left Pleural 40 / 40 #2 Right Pleural 70 / 70 Other: Date of Last Bowel Movement 01/20/18 01/21/18 01/21/18 # Incontinent Bowel Movements 2 01/15/18 03:30 Blood - Peripheral Aerobic Blood Culture - Final No growth in 5 days 01/15/18 03:30 Blood - Peripheral Anaerobic Blood Culture - Final No growth in 5 days 01/15/18 03:39 Blood - Peripheral Aerobic Blood Culture - Final No growth in 5 days 01/15/18 03:39 Blood - Peripheral Anaerobic Blood Culture - Final No growth in 5 days Lab - Hematology Results 01/20/18 01/21/18 05:15 04:17 WBC 10.5 12.5 H RBC 3.08 L 3.10 L Hgb 9.8 L 9.7 L Hct 27.8 L 28.1 L MCV 90.3 90.7 MCH 31.7 31.2 MCHC 35.1 34.3 RDW 14.5 14.3 Plt Count 118 L D 123 L MPV 9.3 9.4 Prelim Diff (Auto) Slide review pending Slide review pending Neut % (Auto) 86.3 H 86.3 H Lymph % (Auto) 4.7 L 3.8 L [place] % (Auto) 8.7 H 9.7 H Eos % (Auto) 0.0 0.0 Baso % (Auto) 0.3 0.2 Neut # (Auto) 9.0 H 10.8 H Lymph # (Auto) 0.5 L 0.5 L [place] # (Auto) 0.9 1.2 H Eos # (Auto) 0.0 0.0 Baso # (Auto) 0.0 0.0 WBC Differential Manual diff final Manual diff final Seg Neuts % (Manual) 85 H 56 Band Neuts % (Manual) 4 28 H Lymphocytes % (Manual) 3 L 3 L Monocytes % (Manual) 5 4 Metamyelocytes % (Man) 8 H Myelocytes % (Man) 3 H 1 H Abs Neuts (Manual) 9.7 H 11.6 H Nucleated RBCs/100 WBC 1 H Differential Comment . . Toxic Granulation 1+ H 2+ H Platelet Estimate Low L Low L Platelet Morphology Normal Enlarged H Dimorphic RBCs Present H Lab - Chemistry Results 01/14/18 01/19/18 01/20/18 22:00 17:39 00:05 Sodium Potassium Chloride Carbon Dioxide Anion Gap BUN Creatinine Estimated GFR POC Glucose 160 H 241 H 310 H Random Glucose Calcium Phosphorus Magnesium Total Bilirubin AST ALT Alkaline Phosphatase Total Protein Albumin 01/20/18 01/20/18 01/20/18 05:15 05:37 13:27 Sodium 142 Potassium 3.3 L Chloride 102 Carbon Dioxide 28.1 Anion Gap 12 BUN 72 H Creatinine 5.67 H Estimated GFR 10 L POC Glucose 321 H 255 H Random Glucose 291 H Calcium 8.0 L Phosphorus 3.3 Magnesium Total Bilirubin AST ALT Alkaline Phosphatase Total Protein Albumin 2.6 L 01/20/18 01/20/18 01/21/18 17:34 23:18 04:17 Sodium 142 Potassium 3.4 L Chloride 100 Carbon Dioxide 26.0 Anion Gap 16 H BUN 109 H Creatinine 7.65 H Estimated GFR 7 L POC Glucose 283 H 366 H Random Glucose 384 H Calcium 8.4 L Phosphorus 4.5 D Magnesium 2.2 Total Bilirubin 1.2 H AST 262 H ALT 557 H Alkaline Phosphatase 237 H Total Protein 5.6 L Albumin 2.5 L 01/21/18 01/21/18 05:56 11:14 Sodium Potassium Chloride Carbon Dioxide Anion Gap BUN Creatinine Estimated GFR POC Glucose 363 H 184 H Random Glucose Calcium Phosphorus Magnesium Total Bilirubin AST ALT Alkaline Phosphatase Total Protein Albumin Imaging: ITS Impressions Cervical Spine CT 01/14/18 21:58 CONCLUSION: 1. No acute fracture or malalignment. 2. Subcutaneous emphysema again noted as well as the known right pneumothorax. Head CT 01/14/18 21:58 CONCLUSION: 1. No acute hemorrhage or mass effect. 2. Stable area of encephalomalacia in the right lateral lobe. . Abdomen X-Ray 01/15/18 00:00 CONCLUSION: 1. No free intraperitoneal air. 2. Residual small pneumothoraces with small chest tubes in place. Abdomen/Bladder Ultrasound 01/16/18 00:00 CONCLUSION: 1. Trace ascites. 2. Negative renal ultrasound Abdomen/Pelvis CT 01/16/18 00:00 CONCLUSION: 1. Minimal free intraperitoneal air. I don't see etiology for such 2. Dense consolidation both lung bases with small bilateral chest tubes 3. Trace pneumothorax on the left. No pneumothorax on the right. 4. Moderate fatty replacement to the liver with prominent gallbladder Chest CT 01/16/18 00:00 . CONCLUSION: 1. Dense consolidation in both lung bases small bore chest tubes evident. 2. Trace pneumothorax on the left 3. No significant fluid. Head MRI 01/16/18 06:37 CONCLUSION: 1. 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 2. There is no restricted diffusion to suggest extension of or new infarct. Chest X-Ray 01/21/18 06:00 CONCLUSION: No change in bilateral pulmonary opacity likely representing pulmonary edema. Physical Exam: GENERAL: sedated intubated. on vent SKIN: Warm and dry. HEAD: Atraumatic. Normocephalic. EYES: Pupils equal and round. No scleral icterus. No injection or drainage. ENT: No nasal bleeding or discharge. Mucous membranes pink and moist. NECK: Trachea midline. No JVD. + SQ empysema palpable CARDIOVASCULAR: Regular rate and rhythm. RESPIRATORY: No accessory muscle use. Clear to auscultation. Breath sounds equal bilaterally. GASTROINTESTINAL: Abdomen soft, no raction to palpation, +distended. Hepatic and splenic margins not palpable. MUSCULOSKELETAL: Extremities without clubbing, cyanosis, + 2 edema. No obvious deformities. NEUROLOGICAL: responsive PSYCHIATRIC: unable to assess G&U :minimal urine output Assessment and Plan - Plan Sepsis, septic shock on presentation: Lactic acidosis Leukocytosis, then leukopenia Multiorgan failuer Acute VDRF - improving ARF, unuric Critical, stable Aspiration PNA vs aspiration pneumonitis Leukocytosis, bandemia s/p seizure (ETOH withdrawl?) P t [id number] with vomiting Seen same day in ER and CT abd/pel done w/o acute findings Presented with pneumomediastinum and b/l pneumothoraces Ethiology of pneumomediastinum likelt traumatic CPR, no viscus perforation dc Zosyn dc Fluconazol will fu WBC, temps dw RN
--- NOTE | 2018-01-21 17:37 | P.PNCC ---
Subjective Subjective Remarks/Hospital Course: 62-year-old male patient presents because he was found down by family, on evaluation by EMS he had notable seizures, and they had tried Versed without success, he was vomiting dark material. They tried to intubate him for airway protection, but were unable to intubate him. However, the seizures had stopped at that point. He was obtunded in the ER and was intubated by ED attending. Shortly after intubation patient lost his pulses and CPR was initiated. He has regained spontaneous circulation after 2 cycles of CPR and injections of epinephrine. There was significant subcutaneous emphysema noticed and the patient was rushed to CT for the CT of the head chest and abdomen that showed large bilateral pneumothoraces, as well as free air in peritoneal cavity. Bilateral chest tubes were placed immediately in the emergency department. The free air in the peritoneum with was discussed with the surgeon payroll consultant Dr. Jimenez. It was felt the air in abdominal cavity is more likely leak from the chest cavity from bilateral tension pneumothoraces and observation without emergent surgical intervention was recommended. The patient was transferred to ICU where he suffered another cardiac arrest. He has regained again spontaneous circulation post 2 cycles of CPR, 2 A of sodium bicarb and 2 A of epinephrine. The patient's was updated about the critical condition at the bedside. 01/15: Patient remains critically ill on max dose of norepinephrine, vasopressin , and epinephrine. His oxygenation overnight has somehow improved with Flolan infusion, however still requiring aggressive APRV mode of ventilation. 01/16: Off all vasopressors. Oxygenation stable. Switch from AP RV to AL VC. Will attempt MRI brain due to neglect and left sided weakness exam. CT thorax with oral contrast to rule out esophageal perforation. Recheck abdomen pelvis today. Remains on fluconazole, piperacillin/tazobactam and, vancomycin infectious disease. Heparin drip discontinued secondary to acute drop in platelets. Fibrinogen pending. Haptoglobin LDH and smear pending. 01/17: Afebrile. Remains off all vasopressors. Minimal urine output overnight. Plan for hemodialysis today once platelets arrived. Minimal output from chest tubes bilaterally. FiO2 down to 40%. PEEP down to 10. 01/18: Afebrile. -3.5 L with hemodialysis today. Off all vasopressors. Will attempt sedation vacation later on this morning. FiO2 down to 40%. PEEP down to 5. 01/19: Bradycardic. Will attempt to exchange bite block today. Minimal output from chest tubes. Hemodialysis ongoing currently. 01/20: Remains bradycardic. Beta-cristian has been removed. Minimal output from chest tubes. Afebrile. Will attempt to wean ventilator using dexmedetomidine drip. Subjective 01/21: Currently on dexmedetomidine for vent weaning. Tolerating hemodialysis. More arousable. Looking around but not following commands. Positive BM. Tolerating tube feeding. Objective Vital Signs / I&O: Vital Signs 01/20/18 18:00 01/20/18 19:00 01/20/18 19:29 Temperature Pulse Rate 75 62 79 Respiratory Rate 16 16 16 Blood Pressure 108/62 146/77 H 176/94 H Pulse Oximetry 96 96 100 01/20/18 19:45 01/20/18 20:00 01/20/18 20:30 Temperature 99 F Pulse Rate 89 75 Respiratory Rate 16 16 16 Blood Pressure 149/78 H Pulse Oximetry 97 100 01/20/18 21:00 01/20/18 22:00 01/20/18 23:00 Temperature Pulse Rate 65 83 74 Respiratory Rate 16 16 16 Blood Pressure 167/91 H 135/77 173/89 H Pulse Oximetry 95 95 98 01/20/18 23:21 01/20/18 23:39 01/21/18 00:00 Temperature 98.2 F Pulse Rate 71 75 71 Respiratory Rate 16 16 16 Blood Pressure 148/78 H 163/78 H Pulse Oximetry 95 95 01/21/18 00:30 01/21/18 00:43 01/21/18 01:00 Temperature Pulse Rate 120 H 87 81 Respiratory Rate 24 19 18 Blood Pressure 148/94 H 172/89 H 159/91 H Pulse Oximetry 97 92 L 93 L 01/21/18 01:30 01/21/18 01:52 01/21/18 02:00 Temperature Pulse Rate 69 67 Respiratory Rate 17 16 16 Blood Pressure 168/92 H 170/89 H Pulse Oximetry 93 L 95 95 01/21/18 02:30 01/21/18 02:49 01/21/18 03:00 Temperature Pulse Rate 79 70 66 Respiratory Rate 20 16 17 Blood Pressure 153/84 H 142/75 H Pulse Oximetry 96 95 01/21/18 03:30 01/21/18 04:00 01/21/18 04:05 Temperature 97.8 F Pulse Rate 61 58 L Respiratory Rate 17 16 16 Blood Pressure 143/77 H 147/79 H Pulse Oximetry 95 96 95 01/21/18 04:30 01/21/18 05:00 01/21/18 05:30 Temperature Pulse Rate 64 88 77 Respiratory Rate 17 20 16 Blood Pressure 135/73 162/91 H 151/84 H Pulse Oximetry 97 100 100 01/21/18 06:00 01/21/18 06:01 01/21/18 06:15 Temperature Pulse Rate 74 70 93 H Respiratory Rate 18 17 20 Blood Pressure 178/88 H 144/70 H Pulse Oximetry 100 100 97 01/21/18 06:30 01/21/18 06:45 01/21/18 07:00 Temperature Pulse Rate 112 H 111 H 87 Respiratory Rate 16 19 17 Blood Pressure 106/64 119/74 160/84 H Pulse Oximetry 99 95 98 01/21/18 07:15 01/21/18 07:30 01/21/18 07:45 Temperature Pulse Rate 79 75 77 Respiratory Rate 19 20 17 Blood Pressure 154/91 H 157/97 H 141/92 H Pulse Oximetry 98 97 98 01/21/18 07:50 01/21/18 08:00 01/21/18 08:33 Temperature 98.2 F Pulse Rate 90 76 Respiratory Rate 21 16 16 Blood Pressure 180/94 H 180/95 H Pulse Oximetry 100 100 100 01/21/18 08:45 01/21/18 12:02 01/21/18 12:03 Temperature Pulse Rate 70 70 Respiratory Rate 19 23 23 Blood Pressure 178/98 H Pulse Oximetry 100 99 01/21/18 15:00 01/21/18 16:22 Temperature Pulse Rate 102 H Respiratory Rate 19 19 Blood Pressure Pulse Oximetry Intake & Output 01/20/18 01/21/18 01/21/18 18:59 06:59 18:59 Intake Total 686 / 686 1383 / 1383 100 / 100 Output Total 185 / 185 4000 / 4000 Balance 686 / 686 1198 / 1198 -3900 / -3900 Weight 117 kg Intake: IV 100 / 100 710 / 710 100 / 100 Precedex Inj 200 MCG In NS Inj 100 / 100 50 / 50 48 ML @ 0.2 MCG/KG/HR 5.85 mls/ hr IV.CONT TITRATE PRN Rx#: [id number] Diflucan 400 mg Premix Bag 200 200 / 200 ML @ 100 mls/hr IV.SIG Q24H HENRY Rx#:[id number] Zosyn 2.25 GM Premix 50 ML @ 100 / 100 100 / 100 50 / 50 100 mls/hr IV.SIG Q6H HENRY Rx#: [id number] Keppra Inj 500 MG In NS Inj 100 210 / 210 ML @ 400 mls/hr IV.SIG Q12H HENRY Rx#:[id number] Tube Feeding 486 / 486 433 / 433 Tube Irrigant 240 / 240 Water Bolus Amount 100 / 100 Output: Hemodialysis Amount 4000 / 4000 Urine Amount (Catheter) 75 / 75 Indwelling Temp Sensing 75 / 75 Catheter Chest Tube Drainage 110 / 110 #1 Left Pleural 40 / 40 #2 Right Pleural 70 / 70 Other: Date of Last Bowel Movement 01/20/18 01/21/18 01/21/18 # Incontinent Bowel Movements 2 Result Diagrams: 01/21/18 04:17 01/21/18 04:17 Other Results: Microbiology 01/15/18 03:30 Blood - Peripheral Aerobic Blood Culture - Final No growth in 5 days 01/15/18 03:30 Blood - Peripheral Anaerobic Blood Culture - Final No growth in 5 days 01/15/18 03:39 Blood - Peripheral Aerobic Blood Culture - Final No growth in 5 days 01/15/18 03:39 Blood - Peripheral Anaerobic Blood Culture - Final No growth in 5 days 01/16/18 17:30 Stool Stool Occult Blood (GINA) - Final Hemoccult positive Imaging: Cervical Spine CT 01/14/18 21:58 CONCLUSION: 1. No acute fracture or malalignment. 2. Subcutaneous emphysema again noted as well as the known right pneumothorax. Chest X-Ray 01/14/18 21:58 CONCLUSION: 1. ET tube in good position. 2. Subcutaneous emphysema clavicular and chest wall region. 3. Probable pneumomediastinum. Head CT 01/14/18 21:58 CONCLUSION: 1. No acute hemorrhage or mass effect. 2. Stable area of encephalomalacia in the right lateral lobe. . Chest CT 01/14/18 22:54 CONCLUSION: 1. Bilateral pneumothoraces right greater than left. 2. Apparent pneumomediastinum with gas also dissecting into the right side of the retroperitoneum and anterior to the right kidney. 3. Linear collections of gas along the anterior inner abdominal wall which could represent collections of dissected free air. Subcutaneous emphysema is also noted. 4. Consolidation in both posterior lung bases and posterior hilar regions. 5. Small right pleural effusion. 6. Suboptimal study secondary to extensive motion artifact. This limits the sensitivity. These findings were called to the emergency room physician immediately after the study was performed. Abdomen X-Ray 01/15/18 00:00 CONCLUSION: 1. No free intraperitoneal air. 2. Residual small pneumothoraces with small chest tubes in place. Chest X-Ray 01/15/18 00:03 CONCLUSION: 1. Interval placement of bilateral small bore chest tubes. 2. Interval placement nasogastric tube and right subclavian central venous line. 3. There is consolidation again noted in both perihilar regions and retrocardiac region. 4. Small apparent residual right pneumothorax and pneumomediastinum again noted. Chest X-Ray 01/15/18 02:18 CONCLUSION: 1. Optimal examination mild motion artifact. 2. The right sided chest tube is not well visualized on the current study there is a left-sided chest tube appears unchanged. 3. Bilateral subcutaneous emphysema right greater than left with abnormal lucency projected over portions of both upper lobes concern for residual pneumothoraces. 4. Dense consolidation again noted in both lungs. Abdomen/Bladder Ultrasound 01/16/18 00:00 CONCLUSION: 1. Trace ascites. 2. Negative renal ultrasound Abdomen/Pelvis CT 01/16/18 00:00 CONCLUSION: 1. Minimal free intraperitoneal air. I don't see etiology for such 2. Dense consolidation both lung bases with small bilateral chest tubes 3. Trace pneumothorax on the left. No pneumothorax on the right. 4. Moderate fatty replacement to the liver with prominent gallbladder Chest CT 01/16/18 00:00 . CONCLUSION: 1. Dense consolidation in both lung bases small bore chest tubes evident. 2. Trace pneumothorax on the left 3. No significant fluid. Chest X-Ray 01/16/18 00:00 CONCLUSION: 1. [Interval decrease in pneumothoraces and pneumomediastinum apparent mild residual medial left upper lobe. 2. Diffuse airspace opacities remain. Head MRI 01/16/18 06:37 CONCLUSION: 1. 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 2. There is no restricted diffusion to suggest extension of or new infarct. Chest X-Ray 01/17/18 06:00 CONCLUSION: 1. Mild residual lucency along the medial upper lobes which most characteristic of residual pneumomediastinum. 2. There is no definite pneumothorax. 3. The smallbore left-sided chest tube remains in place. Previously noted right -sided chest tube is not well visualized. 4. Hazy opacity throughout both lungs without significant change. Chest X-Ray 01/17/18 10:31 CONCLUSION: 1. No pneumothorax status post placement of left internal jugular Vas-Cath which has its tip in superior vena cava. 2. Diffuse pulmonary infiltrates consistent with severe pulmonary edema versus pneumonia. 3. Multiple other tubes and lines are stable. 4. Cardiomegaly. Chest X-Ray 01/18/18 06:00 CONCLUSION: Bilateral airspace opacities and small pleural effusions persist without significant change. Chest X-Ray 01/19/18 06:00 CONCLUSION: Stable single view the chest. Tubes and catheter in good position. Bilateral pigtail catheters S chest tubes and pulmonary vascular congestion persist. Chest X-Ray 01/20/18 06:00 CONCLUSION: Pleural effusions and bibasilar atelectasis persist. Tubes and catheters all in excellent position Chest X-Ray 01/21/18 06:00 CONCLUSION: No change in bilateral pulmonary opacity likely representing pulmonary edema. Objective Remarks: GENERAL: 62-year-old male currently orotracheally treated with bilateral chest tubes critically ill SKIN: Warm and dry. No rash HEAD: Atraumatic. Normocephalic. EYES: Pupils equal and round. No scleral icterus. No injection or drainage. ENT: No nasal bleeding or discharge. Mucous membranes pink and moist. NECK: Trachea midline. No JVD. CARDIOVASCULAR: Regular rate and rhythm with ectopy. S1, S2. No murmur RESPIRATORY: Diminished breath sounds in the bases bilaterally. Crepitus improved subcutaneous emphysema. Bilateral pigtail chest tubes are in place at at -40 cmH2O GASTROINTESTINAL: Abdomen soft, non-tender, nondistended. Hypoactive bowel sounds appreciated. MUSCULOSKELETAL: Extremities without without significant peripheral edema. No obvious deformities. NEUROLOGICAL: Currently dexmedetomidine drip. Spontaneously moving head side to side. Spontaneously withdraws to bilateral upper extremities.. Positive gag and cough. Minimal pupillary reflex. Assessment and Plan - Assessment and Plan Plan: Neuro/Psych: Bipolar disorder History of right parietal CVA 2010 EtOH abuse Acute seizure Patient is currently on midazolam drip at 2 mg an hour and fentanyl drip at 50 mcg/h for sedation/analgesia while intubated Goal of RA SS -[address] brain admission revealed right parietal region encephalomalacia. EEG 01/15 revealed no epileptic activity. Slowing MRI brain ordered revealed stable right sylvian infarct/old. No acute findings Holding home medication gabapentin 300 mg twice daily and ketamine 50 mg daily and sertraline 50 mg daily Vitamin bag daily times 3 days. Monitor for DTs Remains on levetiracetam 500 mg IV twice daily CV: Non-STEMI Elevated troponin Severe shock resolving History of essential hypertension History of hyperlipidemia Cardia Evaluated by cardiology/Dr. Gomez Started on carvedilol 3.125 mg twice daily. Holding valsartan 80 mg daily in light of acute kidney injury. Hydralazine 50 3 times daily and isosorbide dinitrate 20 3 times daily Holding atorvastatin 20 mg daily in light of acute liver injury. 2D echocardiogram revealed EF 55-60%. Mild LVH. PAP 31 mmHg. Currently normal sinus rhythm no ectopy. Initially heparin drip held due to severe thrombocytopenia Resp: Acute respiratory failure Bilateral pneumothoraces/pneumomediastinum Gastroesophageal reflux disease on pantoprazole at home AL VC. Rate of 18. Tidal volume around 550. I time 1.0. PEEP of 5. FiO2 of 40%. Remains on epoprostenol aerosolized Albuterol/ipratropium aerosols every 4 hours albuterol every 2 hours as needed dyspnea CT thorax revealed tiny left apical pneumothorax. Bilateral chest tubes in place. Dense consolidation bilateral lower lobes Chest x-ray today again revealed improved subcutaneous emphysema/improvement of bilateral pneumothoraces. Unable to identify right chest tube Maintain chest tubes at -40 cmH2O. Monitor output On methylprednisolone succinate 40 mg IV every 12 hours GI: Elevated LFTs Pneumoperitoneum with right retroperitoneal gas/gas around the right kidney Elevated ammonia CT abdomen/pelvis revealed gas in the anterior mediastinum/right retrocrural peritoneal gas/stranding right kidney.. Repeat 01/16 revealed tiny intrarenal for note on no obvious source. In ED this case was discussed with Dr. Jimenez/on-call physician. Believe this was secondary to bilateral pneumothoraces. No surgical intervention. Check lactate and CPK now Recheck CT abdomen/pelvis now. Will likely initiate tube feeding if no signs of esophageal perforation on CT with contrast of thorax Would recommend Nepro in light of acute kidney injury currently at 60 cc an hour Pantoprazole for GI prophylaxis Docusate sodium/senna 1 tablet twice daily for bowel regimen Ultrasound tests again revealed severe hepatic steatosis likely EtOH cirrhosis/ ischemia/CPK elevation. On lactulose 30 cc twice daily : Og catheter has been placed for accurate I's and O's in a critically ill patient Endo: History of diabetes mellitus History of hypothyroidism Glimepiride 2 mg twice daily is currently on hold. Sliding scale insulin regular insulin to maintain euglycemia Continue levothyroxine 88 mcg daily. TSH was 0.611 Renal: Acute kidney injury Rhabdomyolysis Currently on hemodialysis 01/17/01/18 and 01/19 and 01/21 Nephrology consultation appreciated Renal ultrasound prophylaxis. Urine eosinophils negative No hydronephrosis. Avoid nephrotoxic medication Heme: Normocytic anemia Acute thrombocytopenia Leukocytosis Unlikely hit secondary to timeframe. Elevated haptoglobin/LDH and peripheral smear no signs of mellitus We will discontinue heparin drip in light of significant thrombocytopenia. Aspirin on hold. ID: , Discontinued piperacillin/tazobactam, vancomycin per infectious disease. For actively following Blood cultures no growth to date Fluconazole discontinued 01/17 FEN: Hypopotassemia Replace electrolytes as clinically indicated. MSK: Elevated BMI Physical therapy evaluate and treat Weight loss encouraged Access -Right subclavian CVL day #8 placed 01/14. Discontinued 01/21 -Right brachial arterial line day #7 placed 01/15 Prophylaxis -GI-pantoprazole -DVT-SCD/holding pharmacological prophylaxis restarted today with heparin 5000 units subcu Critical care time 35 minutes
[2018-01-21] MEDS: niCARdipine Inj 25 MG in Sodium Chlor 0.9% Inj 240 ML IV.CONT PRN (19:35)
[2018-01-21] MEDS: Carvedilol 6.25 MG Tablet PO SCH (20:23)
[2018-01-22] MEDS: Insulin NovoLIN Regular Correctional Sugar Inj SQ SCH ×4 (00:05→17:08)
[2018-01-22] MEDS: Artificial Tears Opth Drops 15 ML Bottle EACH EYE SCH ×3 (00:05→17:07)
[2018-01-22] MEDS: Oral Hygiene Kit OROPHARYNG SCH ×4 (00:05→17:08)
[2018-01-22] MEDS: Dexmedetomidine Inj 200 MCG in Sodium Chlor 0.9% Inj 48 ML IV.CONT PRN ×6 (00:15→10:56)
[2018-01-22] MEDS: Pantoprazole Inj 40 MG Vial IV.PUSH SCH ×2 (02:26→14:05)
[2018-01-22] MEDS: Piperacil/Tazo 2.25 GM Premix 50 ML IV.SIG SCH ×4 (02:27→20:22)
--- NOTE | 2018-01-22 04:15 | XR ---
EXAM DATE: 01/22/2018 4:09 AM EST AGE/SEX: 62 years / Male INDICATIONS: Respiratory failure. CLINICAL DATA: This is the patient's subsequent encounter. Patient reports that signs and symptoms h ave been present for 1 week and indicates a pain score of Nonresponsive. MEDICAL/SURGICAL HISTORY: Stroke. Hypertension. Diabetes mellitus type II. Seizures. Chest tube, left. Central line. COMPARISON: [facility] – [place], CHEST 1V SINGLE AP, 01/21/2018. . FINDINGS: Single AP view the chest. Endotracheal tube, nasogastric tube, left IJ central venous catheter, and r ight subclavian central venous catheter remain in place. Persistent bilateral diffuse pulmonary opaci ty. Right hemidiaphragm is more distinct than on the comparison study. No other significant interval change. CONCLUSION: Persistent bilateral pulmonary opacity. Increased in distinctness of the right hemidiaphragm indicati ng possible decrease in right lung base opacity. No other significant interval change. Electronically signed by: Osman Saha MD 01/22/2018 4:13 AM EST
[2018-01-22 04:21] LABS: Baso % (Auto) 0.1 % (0.0-2.0); Hematocrit 28.1 % (39.0-51.0); Hemoglobin 9.4 gm/dL (13.0-17.0); Lymph # (Auto) 0.4 th/mm3 (1.0-4.8); Lymph % (Auto) 2.3 % (9.0-44.0); Mean Corpuscular HGB Conc 33.5 % (32.0-36.0); Mean Corpuscular Hemoglobin 30.4 pg (27.0-34.0); Mean Corpuscular Volume 90.6 fL (80.0-100.0); Mean Platelet Volume 9.5 fL (7.0-11.0); Mono % (Auto) 6.1 % (0.0-8.0); Neut # (Auto) 15.5 th/mm3 (1.8-7.7); Neut % (Auto) 91.5 % (16.0-70.0); Platelet Count 173 th/mm3 (150-450); Red Cell Distribution Width 14.6 % (11.6-17.2)
[2018-01-22 04:46] LABS: Alanine Aminotransferase 438 U/L (12-78); Albumin 2.6 g/dL (3.4-5.0); Alkaline Phosphatase 264 U/L (45-117); Anion Gap 16 meq/L (5-15); Aspartate Aminotransferase 202 U/L (15-37); Blood Urea Nitrogen 94 mg/dL (7-18); Calcium 8.2 mg/dL (8.5-10.1); Carbon Dioxide 24.6 meq/L (21.0-32.0); Chloride 100 meq/L (98-107); Glomerular Filtration Rate 8 mL/min (>89); Glucose,Random 383 mg/dL (74-106); Magnesium 1.9 mg/dL (1.5-2.5); Potassium 3.3 meq/L (3.5-5.1); Sodium 141 meq/L (136-145); Total Protein 5.6 g/dL (6.4-8.2)
[2018-01-22] MEDS: Levothyroxine 88 MCG Tablet PO SCH (06:16)
[2018-01-22] MEDS: Heparin - SQ 10,000 UNITS/ML Vial SQ SCH ×3 (06:25→23:16)
[2018-01-22 07:27] LABS: Lymphocytes 2 % (9-44); Metamyelocytes 2 % (0-1); Monocytes 2 % (0-8); Myelocytes 1 % (0-0); Promyelocyte 1 % (0-0)
[2018-01-22 07:28] LABS: Platelet Estimate Normal (Normal); Platelet Morphology Normal (Normal); Toxic Granulation 1+
[2018-01-22] MEDS: Chlorhexidine 0.12% Oral Kit 15 ML UDC OROPHARYNG SCH ×2 (07:55→20:23)
[2018-01-22] MEDS: Morphine Sulfate Inj 2 MG/ML Vial IV.PUSH PRN ×2 (08:03→11:24)
[2018-01-22] MEDS: hydrALAZINE 25 MG Tablet PO SCH ×3 (08:05→17:07)
[2018-01-22] MEDS: Carvedilol 6.25 MG Tablet PO SCH ×2 (08:05→20:23)
[2018-01-22] MEDS: Folic Acid 1 MG Tablet PO SCH (08:05)
[2018-01-22] MEDS: Senna/Docusate Sodium 8.6/50 MG Tablet PO SCH ×2 (08:07→20:23)
[2018-01-22] MEDS: MethylPREDNISolone Sod Succinate Inj 40 MG/ML Vial IV.PUSH SCH ×2 (08:07→20:22)
--- NOTE | 2018-01-22 13:13 | P.PNNP ---
Subjective Interval history: Remains intubated. On Precedex and potential attempt to extubation today or tomorrow. No meaningful neurological response. Physical Exam Vital signs: Vital Signs 01/21/18 13:30 01/21/18 13:42 01/21/18 13:45 Temperature Pulse Rate 69 96 H 97 H Respiratory Rate 21 26 H 25 H Blood Pressure 131/76 94/56 L 103/56 L Pulse Oximetry 96 95 97 01/21/18 14:00 01/21/18 14:15 01/21/18 14:30 Temperature Pulse Rate 87 84 81 Respiratory Rate 20 19 19 Blood Pressure 95/54 L 100/59 L 111/66 Pulse Oximetry 94 L 95 96 01/21/18 14:45 01/21/18 15:00 01/21/18 15:15 Temperature Pulse Rate 79 75 112 H Respiratory Rate 18 17 27 H Blood Pressure 117/72 123/75 166/96 H Pulse Oximetry 96 97 99 01/21/18 15:30 01/21/18 15:45 01/21/18 16:00 Temperature 98.3 F Pulse Rate 105 H 109 H 109 H Respiratory Rate 19 23 23 Blood Pressure 132/85 165/89 H 161/93 H Pulse Oximetry 97 100 97 01/21/18 16:15 01/21/18 16:22 01/21/18 16:30 Temperature Pulse Rate 106 H 96 H Respiratory Rate 20 19 20 Blood Pressure 151/93 H 147/89 H Pulse Oximetry 96 98 01/21/18 16:45 01/21/18 17:00 01/21/18 17:15 Temperature Pulse Rate 109 H 108 H 112 H Respiratory Rate 23 24 22 Blood Pressure 190/102 H 163/93 H 159/89 H Pulse Oximetry 100 100 100 01/21/18 17:30 01/21/18 17:45 01/21/18 18:00 Temperature Pulse Rate 108 H 109 H 113 H Respiratory Rate 21 21 22 Blood Pressure 160/90 H 164/94 H 167/101 H Pulse Oximetry 99 100 98 01/21/18 18:15 01/21/18 18:22 01/21/18 18:30 Temperature Pulse Rate 119 H 107 H 105 H Respiratory Rate 28 H 23 17 Blood Pressure 181/105 H 150/87 H 154/90 H Pulse Oximetry 98 97 100 01/21/18 18:45 01/21/18 19:00 01/21/18 19:15 Temperature Pulse Rate 104 H 96 H 95 H Respiratory Rate 22 20 20 Blood Pressure 157/89 H 132/78 140/82 Pulse Oximetry 95 95 95 01/21/18 19:30 01/21/18 19:31 01/21/18 19:40 Temperature Pulse Rate 107 H 106 H 112 H Respiratory Rate 18 20 22 Blood Pressure 171/102 H 183/108 H 172/99 H Pulse Oximetry 100 100 100 01/21/18 19:45 01/21/18 19:50 01/21/18 19:56 Temperature Pulse Rate 121 H 120 H 120 H Respiratory Rate 24 22 20 Blood Pressure 154/84 H 149/80 H 152/85 H Pulse Oximetry 100 100 100 01/21/18 20:00 01/21/18 20:05 01/21/18 20:10 Temperature Pulse Rate 121 H 123 H 127 H Respiratory Rate 19 18 24 Blood Pressure 153/81 H 155/84 H 163/89 H Pulse Oximetry 100 100 100 01/21/18 20:15 01/21/18 20:20 01/21/18 20:25 Temperature Pulse Rate 124 H 127 H 128 H Respiratory Rate 23 23 22 Blood Pressure 143/74 H 149/82 H 150/82 H Pulse Oximetry 100 100 100 01/21/18 20:30 01/21/18 20:35 01/21/18 20:40 Temperature Pulse Rate 127 H 129 H 126 H Respiratory Rate 27 H 29 H 18 Blood Pressure 150/79 H 152/79 H 140/71 Pulse Oximetry 100 100 100 01/21/18 20:45 01/21/18 21:00 01/21/18 21:15 Temperature Pulse Rate 122 H 112 H 111 H Respiratory Rate 26 H 24 24 Blood Pressure 138/71 130/69 124/68 Pulse Oximetry 98 96 96 01/21/18 21:30 01/21/18 21:45 01/21/18 22:00 Temperature Pulse Rate 110 H 110 H 115 H Respiratory Rate 23 22 22 Blood Pressure 122/65 124/70 141/82 H Pulse Oximetry 96 96 99 01/21/18 22:15 01/21/18 22:30 01/21/18 22:45 Temperature Pulse Rate 111 H 104 H 99 H Respiratory Rate 22 20 19 Blood Pressure 140/81 125/76 121/75 Pulse Oximetry 100 99 100 01/21/18 23:00 01/21/18 23:15 01/21/18 23:30 Temperature Pulse Rate 100 H 97 H 95 H Respiratory Rate 19 22 21 Blood Pressure 110/55 L 115/62 121/68 Pulse Oximetry 98 97 97 01/21/18 23:45 01/22/18 00:00 01/22/18 00:15 Temperature 97.8 F Pulse Rate 96 H 93 H Respiratory Rate 22 20 Blood Pressure 133/79 136/83 137/87 Pulse Oximetry 100 100 01/22/18 00:30 01/22/18 00:45 01/22/18 01:00 Temperature Pulse Rate 91 H 90 82 Respiratory Rate 22 20 22 Blood Pressure 147/93 H 144/90 H 137/88 Pulse Oximetry 100 98 94 L 01/22/18 01:15 01/22/18 01:30 01/22/18 01:45 Temperature Pulse Rate 81 83 85 Respiratory Rate 23 23 22 Blood Pressure 139/81 143/86 H 143/84 H Pulse Oximetry 95 100 98 01/22/18 02:00 01/22/18 02:15 01/22/18 02:30 Temperature Pulse Rate 87 91 H 82 Respiratory Rate 23 21 21 Blood Pressure 155/91 H 159/96 H 154/95 H Pulse Oximetry 100 100 100 01/22/18 02:45 01/22/18 03:00 01/22/18 03:15 Temperature Pulse Rate 83 81 91 H Respiratory Rate 23 24 22 Blood Pressure 160/97 H 147/89 H 176/99 H Pulse Oximetry 100 100 100 01/22/18 03:31 01/22/18 03:45 01/22/18 04:00 Temperature Pulse Rate 85 84 71 Respiratory Rate 21 22 25 H Blood Pressure 160/93 H 170/99 H 143/86 H Pulse Oximetry 100 100 100 01/22/18 04:15 01/22/18 06:30 01/22/18 06:45 Temperature Pulse Rate 75 100 H 100 H Respiratory Rate 21 21 19 Blood Pressure 159/82 H 163/88 H Pulse Oximetry 100 100 100 01/22/18 07:00 01/22/18 07:15 01/22/18 07:30 Temperature Pulse Rate 98 H 100 H 99 H Respiratory Rate 20 21 19 Blood Pressure 167/89 H 170/91 H 172/94 H Pulse Oximetry 100 100 100 01/22/18 07:45 01/22/18 08:00 01/22/18 08:15 Temperature 98 F Pulse Rate 97 H 94 H 97 H Respiratory Rate 21 20 22 Blood Pressure 161/91 H 172/98 H 153/90 H Pulse Oximetry 100 100 100 01/22/18 08:30 01/22/18 08:45 01/22/18 09:00 Temperature Pulse Rate 92 H 87 86 Respiratory Rate 23 22 25 H Blood Pressure 158/89 H 138/85 148/90 H Pulse Oximetry 100 100 98 01/22/18 09:16 01/22/18 09:26 01/22/18 09:30 Temperature Pulse Rate 88 80 79 Respiratory Rate 30 H 23 23 Blood Pressure 170/106 H 140/80 148/82 H Pulse Oximetry 98 96 97 01/22/18 09:45 01/22/18 10:00 01/22/18 10:15 Temperature Pulse Rate 76 72 77 Respiratory Rate 24 24 17 Blood Pressure 130/77 120/70 132/81 Pulse Oximetry 97 98 100 01/22/18 10:29 01/22/18 10:30 01/22/18 10:45 Temperature Pulse Rate 73 74 Respiratory Rate 22 23 21 Blood Pressure 130/79 141/83 H Pulse Oximetry 96 96 98 01/22/18 11:00 01/22/18 11:15 01/22/18 11:30 Temperature Pulse Rate 79 79 73 Respiratory Rate 22 12 21 Blood Pressure 158/89 H 165/97 H 143/84 H Pulse Oximetry 100 100 96 01/22/18 11:45 01/22/18 12:00 01/22/18 12:15 Temperature 98.2 F Pulse Rate 69 67 63 Respiratory Rate 21 23 24 Blood Pressure 154/92 H 153/86 H 157/88 H Pulse Oximetry 96 96 96 Intake & Output 01/21/18 01/22/18 01/22/18 18:59 06:59 18:59 Intake Total 720 / 720 2407 / 2407 150 / 150 Output Total 4050 / 4050 Balance -3330 / -3330 2407 / 2407 150 / 150 Weight 116 kg Intake: IV 455 / 455 940 / 940 150 / 150 Precedex Inj 200 MCG In NS Inj 50 / 50 235 / 235 150 / 150 48 ML @ 0.2 MCG/KG/HR 5.85 mls/ hr IV.CONT TITRATE PRN Rx#: [id number] Versed Inj 100 mg In 100 ml @ 2 100 / 100 MG/HR 2 mls/hr IV.CONT TITRATE PRN Rx#:[id number] Cardene Inj 25 MG In NS Inj 240 150 / 150 ML @ 5 MG/HR 50 mls/hr IV.CONT TITRATE PRN Rx#:[id number] Diflucan 400 mg Premix Bag 200 200 / 200 ML @ 100 mls/hr IV.SIG Q24H [facility] Rx#:[id number] Zosyn 2.25 GM Premix 50 ML @ 100 / 100 100 / 100 100 mls/hr IV.SIG Q6H [facility] Rx#: [id number] fentaNYL 10 mcg/mL Premix Drip 250 / 250 2,500 mcg In 250 ml @ 50 MCG/HR 5 mls/hr IV.SIG TITRATE PRN Rx #:[id number] Keppra Inj 500 MG In NS Inj 100 105 / 105 105 / 105 ML @ 400 mls/hr IV.SIG Q12H [facility] Rx#:[id number] Tube Feeding 265 / 265 467 / 467 Water Bolus Amount 1000 / 1000 Output: Hemodialysis Amount 4000 / 4000 Urine Amount (Catheter) 20 / 20 Indwelling Temp Sensing 20 / 20 Catheter Chest Tube Drainage 30 / 30 #1 Left Pleural #2 Right Pleural / Other: Date of Last Bowel Movement 01/21/18 01/21/18 01/22/18 # Incontinent Bowel Movements 1 1 - Constitutional no acute distress - Routine HEENT Exam Head: Present: normocephalic - Routine Respiratory Exam Present: patient mechanically ventilated, CTA bilaterally - Routine Cardiovascular Exam Present: RRR, S1, S2 - Routine Extremities Exam Present: edema (significant generalized) - Routine Neurological Exam Absent: alert, oriented X3 - Urinary Catheter Management Indwelling Temp Sensing Catheter Cath placed during this visit: yes, but has since been removed by the nurse Reason for continuing: Decision to DC catheter Insertion date: 01/14/18 Insertion time: 22:00 Removal date: 01/21/18 Removal time: 18:00 Assessment and Plan - Assessment (1) Acute renal failure Code(s): N17.9 - Acute kidney failure, unspecified Status: Acute Plan: Remains HD dependent. No evidence of renal recovery at this point in time. Next HD 01/23 Given history of alcohol abuse, sepsis, rhabdomyolysis, respiratory insufficiency and hepatic dysfunction he remains critically ill with guarded prognosis. Medications should be adjusted for the patient's estimated GFR if clinically indicated. Avoid agents with significant potential for nephrotoxicity possible including NSAIDs for analgesia, iodine contrast agents. Gadolinium is contraindicated if the GFR is below 30. (2) Alcohol abuse Code(s): F10.10 - Alcohol abuse, uncomplicated Status: Acute (3) Alcohol withdrawal seizure with complication Code(s): F10.239 - Alcohol dependence with withdrawal, unspecified; R56.9 - Unspecified convulsions Status: Acute (4) Rhabdomyolysis Code(s): M62.82 - Rhabdomyolysis Status: Acute Plan: Related to previous seizure. CPK improving
[2018-01-22] MEDS: Dexmedetomidine Inj 1,000 MCG in Sodium Chlor 0.9% Inj 240 ML IV.CONT PRN ×2 (14:00→23:38)
--- NOTE | 2018-01-22 16:53 | P.PNCC ---
Subjective Subjective Remarks/Hospital Course: 62-year-old male patient presents because he was found down by family, on evaluation by EMS he had notable seizures, and they had tried Versed without success, he was vomiting dark material. They tried to intubate him for airway protection, but were unable to intubate him. However, the seizures had stopped at that point. He was obtunded in the ER and was intubated by ED attending. Shortly after intubation patient lost his pulses and CPR was initiated. He has regained spontaneous circulation after 2 cycles of CPR and injections of epinephrine. There was significant subcutaneous emphysema noticed and the patient was rushed to CT for the CT of the head chest and abdomen that showed large bilateral pneumothoraces, as well as free air in peritoneal cavity. Bilateral chest tubes were placed immediately in the emergency department. The free air in the peritoneum with was discussed with the surgeon soa integration developer Dr. Jimenez. It was felt the air in abdominal cavity is more likely leak from the chest cavity from bilateral tension pneumothoraces and observation without emergent surgical intervention was recommended. The patient was transferred to ICU where he suffered another cardiac arrest. He has regained again spontaneous circulation post 2 cycles of CPR, 2 A of sodium bicarb and 2 A of epinephrine. The patient's was updated about the critical condition at the bedside. 01/15: Patient remains critically ill on max dose of norepinephrine, vasopressin , and epinephrine. His oxygenation overnight has somehow improved with Flolan infusion, however still requiring aggressive APRV mode of ventilation. 01/16: Off all vasopressors. Oxygenation stable. Switch from AP RV to WA VC. Will attempt MRI brain due to neglect and left sided weakness exam. CT thorax with oral contrast to rule out esophageal perforation. Recheck abdomen pelvis today. Remains on fluconazole, piperacillin/tazobactam and, vancomycin infectious disease. Heparin drip discontinued secondary to acute drop in platelets. Fibrinogen pending. Haptoglobin LDH and smear pending. 01/17: Afebrile. Remains off all vasopressors. Minimal urine output overnight. Plan for hemodialysis today once platelets arrived. Minimal output from chest tubes bilaterally. FiO2 down to 40%. PEEP down to 10. 01/18: Afebrile. -3.5 L with hemodialysis today. Off all vasopressors. Will attempt sedation vacation later on this morning. FiO2 down to 40%. PEEP down to 5. 01/19: Bradycardic. Will attempt to exchange bite block today. Minimal output from chest tubes. Hemodialysis ongoing currently. 01/20: Remains bradycardic. Beta-cristian has been removed. Minimal output from chest tubes. Afebrile. Will attempt to wean ventilator using dexmedetomidine drip. Subjective 01/21: Currently on dexmedetomidine for vent weaning. Tolerating hemodialysis. More arousable. Looking around but not following commands. Positive BM. Tolerating tube feeding. 01/22: CPAP trials initiated this a.m. The patient is awake but does not follow any commands. CPAP trials continue noted chest x-ray concerning for persistent bilateral pulmonary opacities. We will obtain SBT today. Objective Vital Signs / I&O: Vital Signs 01/21/18 16:45 01/21/18 17:00 01/21/18 17:15 Temperature Pulse Rate 109 H 108 H 112 H Respiratory Rate 23 24 22 Blood Pressure 190/102 H 163/93 H 159/89 H Pulse Oximetry 100 100 100 01/21/18 17:30 01/21/18 17:45 01/21/18 18:00 Temperature Pulse Rate 108 H 109 H 113 H Respiratory Rate 21 21 22 Blood Pressure 160/90 H 164/94 H 167/101 H Pulse Oximetry 99 100 98 01/21/18 18:15 01/21/18 18:22 01/21/18 18:30 Temperature Pulse Rate 119 H 107 H 105 H Respiratory Rate 28 H 23 17 Blood Pressure 181/105 H 150/87 H 154/90 H Pulse Oximetry 98 97 100 01/21/18 18:45 01/21/18 19:00 01/21/18 19:15 Temperature Pulse Rate 104 H 96 H 95 H Respiratory Rate 22 20 20 Blood Pressure 157/89 H 132/78 140/82 Pulse Oximetry 95 95 95 01/21/18 19:30 01/21/18 19:31 01/21/18 19:40 Temperature Pulse Rate 107 H 106 H 112 H Respiratory Rate 18 20 22 Blood Pressure 171/102 H 183/108 H 172/99 H Pulse Oximetry 100 100 100 01/21/18 19:45 01/21/18 19:50 01/21/18 19:56 Temperature Pulse Rate 121 H 120 H 120 H Respiratory Rate 24 22 20 Blood Pressure 154/84 H 149/80 H 152/85 H Pulse Oximetry 100 100 100 01/21/18 20:00 01/21/18 20:05 01/21/18 20:10 Temperature Pulse Rate 121 H 123 H 127 H Respiratory Rate 19 18 24 Blood Pressure 153/81 H 155/84 H 163/89 H Pulse Oximetry 100 100 100 01/21/18 20:15 01/21/18 20:20 01/21/18 20:25 Temperature Pulse Rate 124 H 127 H 128 H Respiratory Rate 23 23 22 Blood Pressure 143/74 H 149/82 H 150/82 H Pulse Oximetry 100 100 100 01/21/18 20:30 01/21/18 20:35 01/21/18 20:40 Temperature Pulse Rate 127 H 129 H 126 H Respiratory Rate 27 H 29 H 18 Blood Pressure 150/79 H 152/79 H 140/71 Pulse Oximetry 100 100 100 01/21/18 20:45 01/21/18 21:00 01/21/18 21:15 Temperature Pulse Rate 122 H 112 H 111 H Respiratory Rate 26 H 24 24 Blood Pressure 138/71 130/69 124/68 Pulse Oximetry 98 96 96 01/21/18 21:30 01/21/18 21:45 01/21/18 22:00 Temperature Pulse Rate 110 H 110 H 115 H Respiratory Rate 23 22 22 Blood Pressure 122/65 124/70 141/82 H Pulse Oximetry 96 96 99 01/21/18 22:15 01/21/18 22:30 01/21/18 22:45 Temperature Pulse Rate 111 H 104 H 99 H Respiratory Rate 22 20 19 Blood Pressure 140/81 125/76 121/75 Pulse Oximetry 100 99 100 01/21/18 23:00 01/21/18 23:15 01/21/18 23:30 Temperature Pulse Rate 100 H 97 H 95 H Respiratory Rate 19 22 21 Blood Pressure 110/55 L 115/62 121/68 Pulse Oximetry 98 97 97 01/21/18 23:45 01/22/18 00:00 01/22/18 00:15 Temperature 97.8 F Pulse Rate 96 H 93 H Respiratory Rate 22 20 Blood Pressure 133/79 136/83 137/87 Pulse Oximetry 100 100 01/22/18 00:30 01/22/18 00:45 01/22/18 01:00 Temperature Pulse Rate 91 H 90 82 Respiratory Rate 22 20 22 Blood Pressure 147/93 H 144/90 H 137/88 Pulse Oximetry 100 98 94 L 01/22/18 01:15 01/22/18 01:30 01/22/18 01:45 Temperature Pulse Rate 81 83 85 Respiratory Rate 23 23 22 Blood Pressure 139/81 143/86 H 143/84 H Pulse Oximetry 95 100 98 01/22/18 02:00 01/22/18 02:15 01/22/18 02:30 Temperature Pulse Rate 87 91 H 82 Respiratory Rate 23 21 21 Blood Pressure 155/91 H 159/96 H 154/95 H Pulse Oximetry 100 100 100 01/22/18 02:45 01/22/18 03:00 01/22/18 03:15 Temperature Pulse Rate 83 81 91 H Respiratory Rate 23 24 22 Blood Pressure 160/97 H 147/89 H 176/99 H Pulse Oximetry 100 100 100 01/22/18 03:31 01/22/18 03:45 01/22/18 04:00 Temperature Pulse Rate 85 84 71 Respiratory Rate 21 22 25 H Blood Pressure 160/93 H 170/99 H 143/86 H Pulse Oximetry 100 100 100 01/22/18 04:15 01/22/18 06:30 01/22/18 06:45 Temperature Pulse Rate 75 100 H 100 H Respiratory Rate 21 21 19 Blood Pressure 159/82 H 163/88 H Pulse Oximetry 100 100 100 01/22/18 07:00 01/22/18 07:15 01/22/18 07:30 Temperature Pulse Rate 98 H 100 H 99 H Respiratory Rate 20 21 19 Blood Pressure 167/89 H 170/91 H 172/94 H Pulse Oximetry 100 100 100 01/22/18 07:45 01/22/18 08:00 01/22/18 08:15 Temperature 98 F Pulse Rate 97 H 94 H 97 H Respiratory Rate 21 20 22 Blood Pressure 161/91 H 172/98 H 153/90 H Pulse Oximetry 100 100 100 01/22/18 08:30 01/22/18 08:45 01/22/18 09:00 Temperature Pulse Rate 92 H 87 86 Respiratory Rate 23 22 25 H Blood Pressure 158/89 H 138/85 148/90 H Pulse Oximetry 100 100 98 01/22/18 09:16 01/22/18 09:26 01/22/18 09:30 Temperature Pulse Rate 88 80 79 Respiratory Rate 30 H 23 23 Blood Pressure 170/106 H 140/80 148/82 H Pulse Oximetry 98 96 97 01/22/18 09:45 01/22/18 10:00 01/22/18 10:15 Temperature Pulse Rate 76 72 77 Respiratory Rate 24 24 17 Blood Pressure 130/77 120/70 132/81 Pulse Oximetry 97 98 100 01/22/18 10:29 01/22/18 10:30 01/22/18 10:45 Temperature Pulse Rate 73 74 Respiratory Rate 22 23 21 Blood Pressure 130/79 141/83 H Pulse Oximetry 96 96 98 01/22/18 11:00 01/22/18 11:15 01/22/18 11:30 Temperature Pulse Rate 79 79 73 Respiratory Rate 22 12 21 Blood Pressure 158/89 H 165/97 H 143/84 H Pulse Oximetry 100 100 96 01/22/18 11:45 01/22/18 12:00 01/22/18 12:15 Temperature 98.2 F Pulse Rate 69 67 63 Respiratory Rate 21 23 24 Blood Pressure 154/92 H 153/86 H 157/88 H Pulse Oximetry 96 96 96 01/22/18 15:38 01/22/18 15:39 Temperature Pulse Rate 62 Respiratory Rate 22 22 Blood Pressure Pulse Oximetry 97 Intake & Output 01/21/18 01/22/18 01/22/18 18:59 06:59 18:59 Intake Total 720 / 720 2407 / 2407 150 / 150 Output Total 4050 / 4050 Balance -3330 / -3330 2407 / 2407 150 / 150 Weight 116 kg Intake: IV 455 / 455 940 / 940 150 / 150 Precedex Inj 200 MCG In NS Inj 50 / 50 235 / 235 150 / 150 48 ML @ 0.2 MCG/KG/HR 5.85 mls/ hr IV.CONT TITRATE PRN Rx#: [id number] Versed Inj 100 mg In 100 ml @ 2 100 / 100 MG/HR 2 mls/hr IV.CONT TITRATE PRN Rx#:[id number] Cardene Inj 25 MG In NS Inj 240 150 / 150 ML @ 5 MG/HR 50 mls/hr IV.CONT TITRATE PRN Rx#:[id number] Diflucan 400 mg Premix Bag 200 200 / 200 ML @ 100 mls/hr IV.SIG Q24H [facility] Rx#:[id number] Zosyn 2.25 GM Premix 50 ML @ 100 / 100 100 / 100 100 mls/hr IV.SIG Q6H [facility] Rx#: [id number] fentaNYL 10 mcg/mL Premix Drip 250 / 250 2,500 mcg In 250 ml @ 50 MCG/HR 5 mls/hr IV.SIG TITRATE PRN Rx #:[id number] Keppra Inj 500 MG In NS Inj 100 105 / 105 105 / 105 ML @ 400 mls/hr IV.SIG Q12H [facility] Rx#:[id number] Tube Feeding 265 / 265 467 / 467 Water Bolus Amount 1000 / 1000 Output: Hemodialysis Amount 4000 / 4000 Urine Amount (Catheter) Indwelling Temp Sensing Catheter Chest Tube Drainage #1 Left Pleural #2 Right Pleural Other: Date of Last Bowel Movement 01/21/18 01/21/18 01/22/18 # Incontinent Bowel Movements 1 1 Result Diagrams: 01/22/18 03:38 01/22/18 03:38 Objective Remarks: GENERAL: 62-year-old male currently orotracheally treated with bilateral chest tubes critically ill. SKIN: Warm and dry. No rash HEAD: Atraumatic. Normocephalic. EYES: Pupils equal and round. No scleral icterus. No injection or drainage. ENT: No nasal bleeding or discharge. Mucous membranes pink and moist. NECK: Trachea midline. No JVD. CARDIOVASCULAR: Regular rate and rhythm with ectopy. S1, S2. No murmur RESPIRATORY: Diminished breath sounds in the bases bilaterally. Crepitus improved subcutaneous emphysema. Bilateral pigtail chest tubes are in place at at -40 cmH2O GASTROINTESTINAL: Abdomen soft, non-tender, nondistended. Hypoactive bowel sounds appreciated. MUSCULOSKELETAL: Extremities without without significant peripheral edema. No obvious deformities. NEUROLOGICAL: Currently dexmedetomidine drip. Spontaneously moving head side to side. Spontaneously withdraws to bilateral upper extremities. Positive gag and cough. Pupils reactive. Assessment and Plan - Assessment and Plan Plan: Neuro/Psych: Bipolar disorder History of right parietal CVA 2010 EtOH abuse Acute seizure Patient is currently on midazolam drip at 2 mg an hour and fentanyl drip at 50 mcg/h for sedation/analgesia while intubated Goal of RA SS -[address] brain upon admission revealed right parietal region encephalomalacia. EEG 01/15 revealed no epileptic activity. Slowing MRI brain ordered revealed stable right sylvian infarct/old. No acute findings Holding home medication gabapentin 300 mg twice daily and ketamine 50 mg daily and sertraline 50 mg daily Vitamin bag daily times 3 days. Monitor for DTs Remains on levetiracetam 500 mg IV twice daily CV: Non-STEMI Elevated troponin Severe shock resolving History of essential hypertension History of hyperlipidemia Cardia Evaluated by cardiology/Dr. Gomez Started on carvedilol 3.125 mg twice daily. Holding valsartan 80 mg daily in light of acute kidney injury. Hydralazine 50 3 times daily and isosorbide dinitrate 20 3 times daily Holding atorvastatin 20 mg daily in light of acute liver injury. 2D echocardiogram revealed EF 55-60%. Mild LVH. PAP 31 mmHg. Currently normal sinus rhythm no ectopy. Initially heparin drip held due to severe thrombocytopenia Resp: Acute respiratory failure Bilateral pneumothoraces/pneumomediastinum Gastroesophageal reflux disease on pantoprazole at home WA VC. Rate of 18. Tidal volume around 550. I time 1.0. PEEP of 5. FiO2 of 40%. Remains on epoprostenol aerosolized Albuterol/ipratropium aerosols every 4 hours albuterol every 2 hours as needed dyspnea CT thorax revealed tiny left apical pneumothorax. Bilateral chest tubes in place. Dense consolidation bilateral lower lobes Chest x-ray today again revealed improved subcutaneous emphysema/improvement of bilateral pneumothoraces. Unable to identify right chest tube Maintain chest tubes at -40 cmH2O. Monitor output On methylprednisolone succinate 40 mg IV every 12 hours GI: Elevated LFTs Pneumoperitoneum with right retroperitoneal gas/gas around the right kidney Elevated ammonia CT abdomen/pelvis revealed gas in the anterior mediastinum/right retrocrural peritoneal gas/stranding right kidney.. Repeat 01/16 revealed tiny intrarenal for note on no obvious source. In ED this case was discussed with Dr. Jimenez/on-call physician. Believe this was secondary to bilateral pneumothoraces. No surgical intervention. Check lactate and CPK now Recheck CT abdomen/pelvis now. Will likely initiate tube feeding if no signs of esophageal perforation on CT with contrast of thorax Would recommend Nepro in light of acute kidney injury currently at 60 cc an hour Pantoprazole for GI prophylaxis Docusate sodium/senna 1 tablet twice daily for bowel regimen Ultrasound tests again revealed severe hepatic steatosis likely EtOH cirrhosis/ ischemia/CPK elevation. On lactulose 30 cc twice daily : Og catheter has been placed for accurate I's and O's in a critically ill patient Endo: History of diabetes mellitus History of hypothyroidism Glimepiride 2 mg twice daily is currently on hold. Sliding scale insulin regular insulin to maintain euglycemia Continue levothyroxine 88 mcg daily. TSH was 0.611 Renal: Acute kidney injury Rhabdomyolysis Currently on hemodialysis 01/17/01/18 and 01/19 and 01/21 Nephrology consultation appreciated Renal ultrasound prophylaxis. Urine eosinophils negative No hydronephrosis. Avoid nephrotoxic medication Heme: Normocytic anemia Acute thrombocytopenia Leukocytosis Unlikely hit secondary to timeframe. Elevated haptoglobin/LDH and peripheral smear no signs of mellitus We will discontinue heparin drip in light of significant thrombocytopenia. Aspirin on hold. ID: , Discontinued piperacillin/tazobactam, vancomycin per infectious disease. For actively following Blood cultures no growth to date Fluconazole discontinued 01/17 FEN: Hypopotassemia Replace electrolytes as clinically indicated. MSK: Elevated BMI Physical therapy evaluate and treat Weight loss encouraged Access -Right subclavian CVL day #9 placed 01/14. Discontinued 01/21 -Right brachial arterial line day #7 placed 01/15 Prophylaxis -GI-pantoprazole -DVT-SCD/holding pharmacological prophylaxis restarted today with heparin 5000 units subcu Critical care time 37 minutes
[2018-01-23] MEDS: Oral Hygiene Kit OROPHARYNG SCH ×4 (00:12→16:00)
[2018-01-23] MEDS: Artificial Tears Opth Drops 15 ML Bottle EACH EYE SCH ×3 (00:12→18:17)
[2018-01-23] MEDS: Insulin NovoLIN Regular Correctional Sugar Inj SQ SCH ×4 (00:12→18:23)
[2018-01-23] MEDS: Piperacil/Tazo 2.25 GM Premix 50 ML IV.SIG SCH ×4 (01:57→19:57)
[2018-01-23] MEDS: Pantoprazole Inj 40 MG Vial IV.PUSH SCH ×2 (01:57→13:00)
[2018-01-23] MEDS: Levothyroxine 88 MCG Tablet PO SCH (05:46)
[2018-01-23] MEDS: Heparin - SQ 10,000 UNITS/ML Vial SQ SCH ×3 (05:46→21:18)
[2018-01-23 06:10] LABS: Baso % (Auto) 0.1 % (0.0-2.0); Eos % (Auto) 0.1 % (0.0-4.0); Hematocrit 26.7 % (39.0-51.0); Hemoglobin 9.2 gm/dL (13.0-17.0); Lymph # (Auto) 0.4 th/mm3 (1.0-4.8); Lymph % (Auto) 2.3 % (9.0-44.0); Mean Corpuscular HGB Conc 34.5 % (32.0-36.0); Mean Corpuscular Hemoglobin 30.8 pg (27.0-34.0); Mean Corpuscular Volume 89.4 fL (80.0-100.0); Mean Platelet Volume 9.4 fL (7.0-11.0); Mono # (Auto) 0.9 th/mm3 (0.0-0.9); Mono % (Auto) 4.4 % (0.0-8.0); Neut # (Auto) 18.3 th/mm3 (1.8-7.7); Neut % (Auto) 93.1 % (16.0-70.0); Platelet Count 184 th/mm3 (150-450); Red Blood Count 2.98 mil/mm3 (4.50-5.90); White Blood Count 19.6 th/mm3 (4.0-11.0)
[2018-01-23 06:42] LABS: Albumin 2.5 g/dL (3.4-5.0); Calcium 8.6 mg/dL (8.5-10.1); Carbon Dioxide 22.2 meq/L (21.0-32.0); Magnesium 2.1 mg/dL (1.5-2.5); Phosphorus 6.1 mg/dL (2.5-4.9); Potassium 3.6 meq/L (3.5-5.1)
[2018-01-23] MEDS: Senna/Docusate Sodium 8.6/50 MG Tablet PO SCH ×2 (08:00→20:00)
[2018-01-23] MEDS: MethylPREDNISolone Sod Succinate Inj 40 MG/ML Vial IV.PUSH SCH ×2 (08:00→20:00)
[2018-01-23] MEDS: Chlorhexidine 0.12% Oral Kit 15 ML UDC OROPHARYNG SCH ×2 (08:00→19:56)
[2018-01-23] MEDS: hydrALAZINE 25 MG Tablet PO SCH ×3 (08:00→17:50)
[2018-01-23 08:01] LABS: Eosinophils 1 % (0-4); Metamyelocytes 1 % (0-1); Monocytes 1 % (0-8); Myelocytes 2 % (0-0)
[2018-01-23 08:02] LABS: Platelet Estimate Normal (Normal); Platelet Morphology Normal (Normal); Toxic Granulation 1+
[2018-01-23] MEDS: Carvedilol 6.25 MG Tablet PO SCH ×2 (09:00→20:00)
[2018-01-23] MEDS: Folic Acid 1 MG Tablet PO SCH (09:29)
[2018-01-23] MEDS: Dexmedetomidine Inj 1,000 MCG in Sodium Chlor 0.9% Inj 240 ML IV.CONT PRN ×2 (10:32→19:59)
[2018-01-23] MEDS: Morphine Sulfate Inj 2 MG/ML Vial IV.PUSH PRN ×3 (12:32→22:47)
[2018-01-23] MEDS: Heparin 10,000 UNITS/10 ML Vial (for IV use) OTHER PRN (13:26)
[2018-01-23] MEDS: Albumin Human 25% Inj 100 ML IV.SIG PRN ×3 (13:56→15:43)
--- NOTE | 2018-01-23 14:58 | P.PNNP ---
Subjective Interval history: Patient remains intubated not following verbal commands. Physical Exam Vital signs: Vital Signs 01/22/18 15:00 01/22/18 15:15 01/22/18 15:30 Temperature Pulse Rate 64 61 62 Respiratory Rate 23 23 23 Blood Pressure 133/77 136/78 146/84 H Pulse Oximetry 98 98 98 01/22/18 15:38 01/22/18 15:39 01/22/18 15:45 Temperature Pulse Rate 62 63 Respiratory Rate 22 22 23 Blood Pressure 145/83 H Pulse Oximetry 97 98 01/22/18 16:00 01/22/18 16:15 01/22/18 16:30 Temperature 98.2 F Pulse Rate 62 62 59 L Respiratory Rate 23 23 23 Blood Pressure 142/81 H 138/79 143/83 H Pulse Oximetry 97 97 98 01/22/18 16:45 01/22/18 17:00 01/22/18 17:15 Temperature Pulse Rate 57 L 54 L 54 L Respiratory Rate 24 23 23 Blood Pressure 146/84 H 148/87 H 150/85 H Pulse Oximetry 98 98 98 01/22/18 17:30 01/22/18 17:45 01/22/18 18:00 Temperature Pulse Rate 62 67 69 Respiratory Rate 21 23 23 Blood Pressure 143/81 H 117/70 116/66 Pulse Oximetry 99 99 98 01/22/18 18:15 01/22/18 18:30 01/22/18 18:45 Temperature Pulse Rate 69 67 65 Respiratory Rate 24 23 24 Blood Pressure 145/75 H 144/78 H 148/84 H Pulse Oximetry 100 98 99 01/22/18 19:00 01/22/18 19:15 01/22/18 19:30 Temperature 97.5 F L Pulse Rate 64 63 62 Respiratory Rate 24 24 23 Blood Pressure 147/83 H 156/89 H 153/84 H Pulse Oximetry 97 98 97 01/22/18 19:45 01/22/18 20:00 01/22/18 20:15 Temperature Pulse Rate 62 61 62 Respiratory Rate 22 20 23 Blood Pressure 153/83 H 151/83 H 162/88 H Pulse Oximetry 96 97 99 01/22/18 20:30 01/22/18 20:46 01/22/18 21:00 Temperature Pulse Rate 59 L 74 72 Respiratory Rate 22 19 21 Blood Pressure 161/86 H 111/63 114/64 Pulse Oximetry 98 99 97 01/22/18 21:15 01/22/18 21:22 01/22/18 21:26 Temperature Pulse Rate 73 80 Respiratory Rate 20 20 19 Blood Pressure 122/67 Pulse Oximetry 98 99 01/22/18 21:30 01/22/18 21:45 01/22/18 22:00 Temperature Pulse Rate 65 61 58 L Respiratory Rate 19 18 17 Blood Pressure 128/75 139/82 145/85 H Pulse Oximetry 99 100 100 01/22/18 22:30 01/22/18 22:45 01/22/18 23:00 Temperature Pulse Rate 75 76 67 Respiratory Rate 28 H 20 18 Blood Pressure 105/69 115/67 146/84 H Pulse Oximetry 100 98 99 01/22/18 23:15 01/22/18 23:30 01/22/18 23:45 Temperature Pulse Rate 59 L 54 L 51 L Respiratory Rate 17 17 16 Blood Pressure 150/86 H 156/90 H 154/87 H Pulse Oximetry 97 97 98 01/23/18 00:00 01/23/18 00:15 01/23/18 00:30 Temperature Pulse Rate 50 L 55 L 56 L Respiratory Rate 16 16 17 Blood Pressure 155/86 H 160/91 H 160/93 H Pulse Oximetry 98 99 99 01/23/18 00:42 01/23/18 01:00 01/23/18 01:30 Temperature Pulse Rate 56 L 56 L 55 L Respiratory Rate 16 18 17 Blood Pressure 150/83 H 149/85 H Pulse Oximetry 100 97 100 01/23/18 02:00 01/23/18 02:30 01/23/18 03:00 Temperature Pulse Rate 56 L 56 L 53 L Respiratory Rate 16 17 16 Blood Pressure 160/86 H 151/84 H 150/82 H Pulse Oximetry 100 100 100 01/23/18 03:30 01/23/18 04:00 01/23/18 04:03 Temperature Pulse Rate 60 58 L 58 L Respiratory Rate 19 16 16 Blood Pressure 146/81 H 167/86 H Pulse Oximetry 100 100 100 01/23/18 04:30 01/23/18 05:00 01/23/18 05:30 Temperature Pulse Rate 55 L 55 L 62 Respiratory Rate 16 17 17 Blood Pressure 166/88 H 155/85 H 159/88 H Pulse Oximetry 100 100 100 01/23/18 06:00 01/23/18 06:30 01/23/18 07:00 Temperature Pulse Rate 77 62 63 Respiratory Rate 18 17 17 Blood Pressure 110/66 147/82 H 166/93 H Pulse Oximetry 98 100 100 01/23/18 07:30 01/23/18 08:00 01/23/18 08:30 Temperature 97.9 F Pulse Rate 60 64 62 Respiratory Rate 20 18 19 Blood Pressure 150/85 H 166/92 H 155/84 H Pulse Oximetry 100 100 99 01/23/18 09:00 01/23/18 09:30 01/23/18 10:00 Temperature Pulse Rate 60 64 66 Respiratory Rate 20 18 16 Blood Pressure 149/82 H 162/88 H 169/90 H Pulse Oximetry 99 99 100 01/23/18 10:30 01/23/18 11:00 01/23/18 11:23 Temperature Pulse Rate 70 70 Respiratory Rate 15 16 18 Blood Pressure 175/94 H 171/95 H Pulse Oximetry 99 99 100 01/23/18 11:30 01/23/18 12:00 01/23/18 12:31 Temperature 98 F Pulse Rate 67 72 65 Respiratory Rate 19 18 20 Blood Pressure 158/87 H 153/87 H 175/94 H Pulse Oximetry 100 98 100 01/23/18 13:00 01/23/18 13:30 Temperature Pulse Rate 58 L 63 Respiratory Rate 21 20 Blood Pressure 168/88 H 132/82 Pulse Oximetry 96 99 Intake & Output 01/22/18 01/23/18 01/23/18 18:59 06:59 18:59 Intake Total 780 / 780 1378 / 1378 450 / 450 Output Total 25 / 25 Balance 770 / 770 1353 / 1353 450 / 450 Weight 117.5 kg Intake: IV 405 / 405 805 / 805 450 / 450 Precedex Inj 1,000 MCG In NS 250 / 250 250 / 250 Inj 240 ML @ 0.2 MCG/KG/HR 5.85 mls/hr IV.CONT TITRATE PRN Rx# :[id number] Precedex Inj 200 MCG In NS Inj 200 / 200 48 ML @ 0.2 MCG/KG/HR 5.85 mls/ hr IV.CONT TITRATE PRN Rx#: [id number] Cardene Inj 25 MG In NS Inj 240 150 / 150 ML @ 5 MG/HR 50 mls/hr IV.CONT TITRATE PRN Rx#:[id number] Flexbumin 25% Inj 100 ML @ 60 200 / 200 mls/hr IV.SIG WITH DIALYSIS PRN Rx#:[id number] Diflucan 400 mg Premix Bag 200 200 / 200 ML @ 100 mls/hr IV.SIG Q24H [facility] Rx#:[id number] Zosyn 2.25 GM Premix 50 ML @ 100 / 100 100 / 100 100 mls/hr IV.SIG Q6H [facility] Rx#: [id number] Keppra Inj 500 MG In NS Inj 100 105 / 105 105 / 105 ML @ 400 mls/hr IV.SIG Q12H [facility] Rx#:[id number] Tube Feeding 375 / 375 473 / 473 Water Bolus Amount 100 / 100 Output: Stool 25 / 25 Chest Tube Drainage #1 Left Pleural 0 / 0 #2 Right Pleural Other: Date of Last Bowel Movement 01/22/18 01/23/18 01/23/18 # Incontinent Bowel Movements 2 Narrative: GENERAL: Obese male lying in bed with an ET tube in place on ventilatory support. SKIN: Warm and dry. HEAD: Normocephalic. Periorbital edema. EYES: No scleral icterus. No injection or drainage. NECK: Supple, trachea midline. No JVD . CARDIOVASCULAR: Regular rate and rhythm without murmurs, gallops, or rubs. RESPIRATORY: Breath sounds equal bilaterally. No accessory muscle use. GASTROINTESTINAL: Abdomen soft, non-tender, distended but not tender. MUSCULOSKELETAL: No cyanosis, 1+ edema of the limbs. - Urinary Catheter Management Indwelling Temp Sensing Catheter Cath placed during this visit: yes, but has since been removed by the nurse Reason for continuing: Decision to DC catheter Insertion date: 01/14/18 Insertion time: 22:00 Removal date: 01/21/18 Removal time: 18:00 Assessment and Plan - Assessment (1) Acute renal failure Code(s): N17.9 - Acute kidney failure, unspecified Status: Acute Plan: Remains HD dependent. No evidence of renal recovery at this point in time. Patient was seen during his dialysis session. Tolerating hemodialysis today with ultrafiltration. Next dialysis session tentatively Sunday. Given history of alcohol abuse, sepsis, rhabdomyolysis, respiratory insufficiency and hepatic dysfunction he remains critically ill with guarded prognosis. Medications should be adjusted for the patient's estimated GFR if clinically indicated. Avoid agents with significant potential for nephrotoxicity possible including NSAIDs for analgesia, iodine contrast agents. Gadolinium is contraindicated if the GFR is below 30. (2) Alcohol abuse Code(s): F10.10 - Alcohol abuse, uncomplicated Status: Acute (3) Alcohol withdrawal seizure with complication Code(s): F10.239 - Alcohol dependence with withdrawal, unspecified; R56.9 - Unspecified convulsions Status: Acute (4) Rhabdomyolysis Code(s): M62.82 - Rhabdomyolysis Status: Acute Plan: Related to previous seizure.
--- NOTE | 2018-01-23 17:07 | P.PNCC ---
Subjective Subjective Remarks/Hospital Course: 62-year-old male patient presents because he was found down by family, on evaluation by EMS he had notable seizures, and they had tried Versed without success, he was vomiting dark material. They tried to intubate him for airway protection, but were unable to intubate him. However, the seizures had stopped at that point. He was obtunded in the ER and was intubated by ED attending. Shortly after intubation patient lost his pulses and CPR was initiated. He has regained spontaneous circulation after 2 cycles of CPR and injections of epinephrine. There was significant subcutaneous emphysema noticed and the patient was rushed to CT for the CT of the head chest and abdomen that showed large bilateral pneumothoraces, as well as free air in peritoneal cavity. Bilateral chest tubes were placed immediately in the emergency department. The free air in the peritoneum with was discussed with the surgeon network pricing consultant Dr. Jimenez. It was felt the air in abdominal cavity is more likely leak from the chest cavity from bilateral tension pneumothoraces and observation without emergent surgical intervention was recommended. The patient was transferred to ICU where he suffered another cardiac arrest. He has regained again spontaneous circulation post 2 cycles of CPR, 2 A of sodium bicarb and 2 A of epinephrine. The patient's was updated about the critical condition at the bedside. 01/15: Patient remains critically ill on max dose of norepinephrine, vasopressin , and epinephrine. His oxygenation overnight has somehow improved with Flolan infusion, however still requiring aggressive APRV mode of ventilation. 01/16: Off all vasopressors. Oxygenation stable. Switch from AP RV to [place] VC. Will attempt MRI brain due to neglect and left sided weakness exam. CT thorax with oral contrast to rule out esophageal perforation. Recheck abdomen pelvis today. Remains on fluconazole, piperacillin/tazobactam and, vancomycin infectious disease. Heparin drip discontinued secondary to acute drop in platelets. Fibrinogen pending. Haptoglobin LDH and smear pending. 01/17: Afebrile. Remains off all vasopressors. Minimal urine output overnight. Plan for hemodialysis today once platelets arrived. Minimal output from chest tubes bilaterally. FiO2 down to 40%. PEEP down to 10. 01/18: Afebrile. -3.5 L with hemodialysis today. Off all vasopressors. Will attempt sedation vacation later on this morning. FiO2 down to 40%. PEEP down to 5. 01/19: Bradycardic. Will attempt to exchange bite block today. Minimal output from chest tubes. Hemodialysis ongoing currently. 01/20: Remains bradycardic. Beta-cristian has been removed. Minimal output from chest tubes. Afebrile. Will attempt to wean ventilator using dexmedetomidine drip. Subjective 01/21: Currently on dexmedetomidine for vent weaning. Tolerating hemodialysis. More arousable. Looking around but not following commands. Positive BM. Tolerating tube feeding. 01/22: CPAP trials initiated this a.m. The patient is awake but does not follow any commands. CPAP trials continue noted chest x-ray concerning for persistent bilateral pulmonary opacities. We will obtain SBT today. 01/23: Patient currently undergoing hemodialysis plan for 4 L removal of fluid. The patient was placed on a rate last night CPAP trial was reinitiated at 6 AM. Plan to continue CPAP throughout the evening. Will attempt SBT trial today if possible. Patient tolerating tube feeds. Bilateral chest tube remain on suction minimal output. Objective Vital Signs / I&O: Vital Signs 01/22/18 17:15 01/22/18 17:30 01/22/18 17:45 Temperature Pulse Rate 54 L 62 67 Respiratory Rate 23 21 23 Blood Pressure 150/85 H 143/81 H 117/70 Pulse Oximetry 98 99 99 01/22/18 18:00 01/22/18 18:15 01/22/18 18:30 Temperature Pulse Rate 69 69 67 Respiratory Rate 23 24 23 Blood Pressure 116/66 145/75 H 144/78 H Pulse Oximetry 98 100 98 01/22/18 18:45 01/22/18 19:00 01/22/18 19:15 Temperature 97.5 F L Pulse Rate 65 64 63 Respiratory Rate 24 24 24 Blood Pressure 148/84 H 147/83 H 156/89 H Pulse Oximetry 99 97 98 01/22/18 19:30 01/22/18 19:45 01/22/18 20:00 Temperature Pulse Rate 62 62 61 Respiratory Rate 23 22 20 Blood Pressure 153/84 H 153/83 H 151/83 H Pulse Oximetry 97 96 97 01/22/18 20:15 01/22/18 20:30 01/22/18 20:46 Temperature Pulse Rate 62 59 L 74 Respiratory Rate 23 22 19 Blood Pressure 162/88 H 161/86 H 111/63 Pulse Oximetry 99 98 99 01/22/18 21:00 01/22/18 21:15 01/22/18 21:22 Temperature Pulse Rate 72 73 80 Respiratory Rate 21 20 20 Blood Pressure 114/64 122/67 Pulse Oximetry 97 98 01/22/18 21:26 01/22/18 21:30 18 21:45 Temperature Pulse Rate 65 61 Respiratory Rate 19 19 18 Blood Pressure 128/75 139/82 Pulse Oximetry 99 99 100 01/22/18 22:00 01/22/18 22:30 01/22/18 22:45 Temperature Pulse Rate 58 L 75 76 Respiratory Rate 17 28 H 20 Blood Pressure 145/85 H 105/69 115/67 Pulse Oximetry 100 100 98 01/22/18 23:00 01/22/18 23:15 01/22/18 23:30 Temperature Pulse Rate 67 59 L 54 L Respiratory Rate 18 17 17 Blood Pressure 146/84 H 150/86 H 156/90 H Pulse Oximetry 99 97 97 01/22/18 23:45 01/23/18 00:00 01/23/18 00:15 Temperature Pulse Rate 51 L 50 L 55 L Respiratory Rate 16 16 16 Blood Pressure 154/87 H 155/86 H 160/91 H Pulse Oximetry 98 98 99 01/23/18 00:30 01/23/18 00:42 01/23/18 01:00 Temperature Pulse Rate 56 L 56 L 56 L Respiratory Rate 17 16 18 Blood Pressure 160/93 H 150/83 H Pulse Oximetry 99 100 97 01/23/18 01:30 01/23/18 02:00 01/23/18 02:30 Temperature Pulse Rate 55 L 56 L 56 L Respiratory Rate 17 16 17 Blood Pressure 149/85 H 160/86 H 151/84 H Pulse Oximetry 100 100 100 01/23/18 03:00 01/23/18 03:30 01/23/18 04:00 Temperature Pulse Rate 53 L 60 58 L Respiratory Rate 16 19 16 Blood Pressure 150/82 H 146/81 H 167/86 H Pulse Oximetry 100 100 100 01/23/18 04:03 01/23/18 04:30 01/23/18 05:00 Temperature Pulse Rate 58 L 55 L 55 L Respiratory Rate 16 16 17 Blood Pressure 166/88 H 155/85 H Pulse Oximetry 100 100 100 01/23/18 05:30 01/23/18 06:00 01/23/18 06:30 Temperature Pulse Rate 62 77 62 Respiratory Rate 17 18 17 Blood Pressure 159/88 H 110/66 147/82 H Pulse Oximetry 100 98 100 01/23/18 07:00 01/23/18 07:30 01/23/18 08:00 Temperature 97.9 F Pulse Rate 63 60 64 Respiratory Rate 17 20 18 Blood Pressure 166/93 H 150/85 H 166/92 H Pulse Oximetry 100 100 100 01/23/18 08:30 01/23/18 09:00 01/23/18 09:30 Temperature Pulse Rate 62 60 64 Respiratory Rate 19 20 18 Blood Pressure 155/84 H 149/82 H 162/88 H Pulse Oximetry 99 99 99 01/23/18 10:00 01/23/18 10:30 01/23/18 11:00 Temperature Pulse Rate 66 70 70 Respiratory Rate 16 15 16 Blood Pressure 169/90 H 175/94 H 171/95 H Pulse Oximetry 100 99 99 01/23/18 11:23 01/23/18 11:30 01/23/18 12:00 Temperature 98 F Pulse Rate 67 72 Respiratory Rate 18 19 18 Blood Pressure 158/87 H 153/87 H Pulse Oximetry 100 100 98 01/23/18 12:31 01/23/18 13:00 01/23/18 13:30 Temperature Pulse Rate 65 58 L 63 Respiratory Rate 20 21 20 Blood Pressure 175/94 H 168/88 H 132/82 Pulse Oximetry 100 96 99 01/23/18 15:00 01/23/18 16:29 Temperature Pulse Rate 68 Respiratory Rate 15 19 Blood Pressure Pulse Oximetry 100 Intake & Output 01/22/18 01/23/18 01/23/18 18:59 06:59 18:59 Intake Total 780 / 780 1378 / 1378 550 / 550 Output Total 25 / 25 4000 / 4000 Balance 770 / 770 1353 / 1353 -3450 / -3450 Weight 117.5 kg Intake: IV 405 / 405 805 / 805 550 / 550 Precedex Inj 1,000 MCG In NS 250 / 250 250 / 250 Inj 240 ML @ 0.2 MCG/KG/HR 5.85 mls/hr IV.CONT TITRATE PRN Rx# :[id number] Precedex Inj 200 MCG In NS Inj 200 / 200 48 ML @ 0.2 MCG/KG/HR 5.85 mls/ hr IV.CONT TITRATE PRN Rx#: [id number] Cardene Inj 25 MG In NS Inj 240 150 / 150 ML @ 5 MG/HR 50 mls/hr IV.CONT TITRATE PRN Rx#:[id number] Flexbumin 25% Inj 100 ML @ 60 300 / 300 mls/hr IV.SIG WITH DIALYSIS PRN Rx#:[id number] Diflucan 400 mg Premix Bag 200 200 / 200 ML @ 100 mls/hr IV.SIG Q24H [facility] Rx#:[id number] Zosyn 2.25 GM Premix 50 ML @ 100 / 100 100 / 100 100 mls/hr IV.SIG Q6H [facility] Rx#: [id number] Keppra Inj 500 MG In NS Inj 100 105 / 105 105 / 105 ML @ 400 mls/hr IV.SIG Q12H [facility] Rx#:[id number] Tube Feeding 375 / 375 473 / 473 Water Bolus Amount 100 / 100 Output: Stool 25 / 25 Hemodialysis Amount 4000 / 4000 Chest Tube Drainage #1 Left Pleural 0 / 0 #2 Right Pleural Other: Date of Last Bowel Movement 01/22/18 01/23/18 01/23/18 # Incontinent Bowel Movements 2 Result Diagrams: 01/23/18 05:45 01/23/18 05:45 Objective Remarks: GENERAL: 62-year-old male currently orotracheally treated with bilateral chest tubes critically ill. SKIN: Warm and dry. No rash HEAD: Atraumatic. Normocephalic. EYES: Pupils equal and round. No scleral icterus. No injection or drainage. ENT: No nasal bleeding or discharge. Mucous membranes pink and moist. NECK: Trachea midline. No JVD. CARDIOVASCULAR: Regular rate and rhythm with ectopy. S1, S2. No murmur RESPIRATORY: Diminished breath sounds in the bases bilaterally. Crepitus improved subcutaneous emphysema. Bilateral pigtail chest tubes are in place at at -40 cmH2O GASTROINTESTINAL: Abdomen soft, non-tender, nondistended. Hypoactive bowel sounds appreciated. MUSCULOSKELETAL: Extremities without without significant peripheral edema. No obvious deformities. NEUROLOGICAL: Currently dexmedetomidine drip. Spontaneously moving head side to side. Does not follow any commands. spontaneously withdraws to bilateral upper extremities. Positive gag and cough. Pupils reactive. Assessment and Plan - Assessment and Plan Plan: Neuro/Psych: Bipolar disorder History of right parietal CVA 2009 EtOH abuse Acute seizure Patient is currently on dexmedetomidine at 1mg/kg/hr sedation/analgesia while intubated Goal of RASS -[address] brain upon admission revealed right parietal region encephalomalacia. EEG 01/15 revealed no epileptic activity. Slowing MRI brain ordered revealed stable right sylvian infarct/old. No acute findings Holding home medication gabapentin 300 mg twice daily and ketamine 50 mg daily and sertraline 50 mg daily Vitamin bag daily times 3 days. Monitor for DTs Remains on levetiracetam 500 mg IV twice daily CV: Non-STEMI Elevated troponin Severe shock resolving History of essential hypertension History of hyperlipidemia Cardia Evaluated by cardiology/Dr. Gomez Started on carvedilol 3.125 mg twice daily. Holding valsartan 80 mg daily in light of acute kidney injury. Hydralazine 50 3 times daily and isosorbide dinitrate 20 3 times daily Holding atorvastatin 20 mg daily in light of acute liver injury. 2D echocardiogram revealed EF 55-60%. Mild LVH. PAP 31 mmHg. Currently normal sinus rhythm no ectopy. Initially heparin drip held due to severe thrombocytopenia Resp: Acute respiratory failure Bilateral pneumothoraces/pneumomediastinum Gastroesophageal reflux disease on pantoprazole at home [place] VC. Rate of 18. Tidal volume around 550. I time 1.0. PEEP of 5. FiO2 of 40%. Remains on epoprostenol aerosolized Albuterol/ipratropium aerosols every 4 hours albuterol every 2 hours as needed dyspnea CT thorax revealed tiny left apical pneumothorax. Bilateral chest tubes in place. Dense consolidation bilateral lower lobes Chest x-ray today again revealed improved subcutaneous emphysema/improvement of bilateral pneumothoraces. Unable to identify right chest tube Maintain chest tubes at -40 cmH2O. Monitor output On methylprednisolone succinate 40 mg IV every 12 hours GI: Elevated LFTs Pneumoperitoneum with right retroperitoneal gas/gas around the right kidney Elevated ammonia CT abdomen/pelvis revealed gas in the anterior mediastinum/right retrocrural peritoneal gas/stranding right kidney.. Repeat 01/16 revealed tiny intrarenal for note on no obvious source. In ED this case was discussed with Dr. Jimenez/on-call physician. Believe this was secondary to bilateral pneumothoraces. No surgical intervention. Check lactate and CPK now Recheck CT abdomen/pelvis now. Will likely initiate tube feeding if no signs of esophageal perforation on CT with contrast of thorax Would recommend Nepro in light of acute kidney injury currently at 60 cc an hour Pantoprazole for GI prophylaxis Docusate sodium/senna 1 tablet twice daily for bowel regimen Ultrasound tests again revealed severe hepatic steatosis likely EtOH cirrhosis/ ischemia/CPK elevation. On lactulose 30 cc twice daily : Og catheter has been placed for accurate I's and O's in a critically ill patient Endo: History of diabetes mellitus History of hypothyroidism Glimepiride 2 mg twice daily is currently on hold. Sliding scale insulin regular insulin to maintain euglycemia Continue levothyroxine 88 mcg daily. TSH was 0.611 Renal: Acute kidney injury Rhabdomyolysis Currently on hemodialysis Nephrology consultation appreciated Renal ultrasound prophylaxis. Urine eosinophils negative No hydronephrosis. Avoid nephrotoxic medication Heme: Normocytic anemia Acute thrombocytopenia Persistent leukocytosis Unlikely hit secondary to timeframe. Elevated haptoglobin/LDH and peripheral smear no signs of mellitus We will discontinue heparin drip in light of significant thrombocytopenia. Aspirin on hold. ID: Discontinued piperacillin/tazobactam, vancomycin per infectious disease. For actively following Blood cultures no growth to date Fluconazole discontinued 01/17 ID following FEN: Hypopotassemia Replace electrolytes as clinically indicated. MSK: Elevated BMI Physical therapy evaluate and treat Weight loss encouraged Access -Right subclavian CVL day #9 placed 01/14. Discontinued 01/21 -Right brachial arterial line day #8 placed 01/15 Prophylaxis -GI-pantoprazole -DVT-SCD/holding pharmacological prophylaxis restarted today with heparin 5000 units subcu Critical care time 32 minutes
--- NOTE | 2018-01-23 18:49 | P.PNADD ---
Addendum to Inpatient Note Additional information: pt seen around 1800 full note to follow
--- NOTE | 2018-01-23 22:38 | P.PNID ---
Subjective Remarks: delayed entry pt seen during rounds Doing OK On CPAP afebrile pt makes no urine off pressors no fever WBC rising On IV sterroids all cultures negative to date Antibiotics: zosyn fluconazl Allergies/Adverse Reactions: Allergies erythromycin base Allergy (Severe, Verified 01/14/18 03:00) Hives penicillin G Allergy (Severe, Verified 01/14/18 03:00) Hives Objective Vital Signs 01/22/18 22:45 01/22/18 23:00 01/22/18 23:15 Temperature Pulse Rate 76 67 59 L Respiratory Rate 20 18 17 Blood Pressure 115/67 146/84 H 150/86 H Pulse Oximetry 98 99 97 01/22/18 23:30 01/22/18 23:45 01/23/18 00:00 Temperature Pulse Rate 54 L 51 L 50 L Respiratory Rate 17 16 16 Blood Pressure 156/90 H 154/87 H 155/86 H Pulse Oximetry 97 98 98 01/23/18 00:15 01/23/18 00:30 01/23/18 00:42 Temperature Pulse Rate 55 L 56 L 56 L Respiratory Rate 16 17 16 Blood Pressure 160/91 H 160/93 H Pulse Oximetry 99 99 100 01/23/18 01:00 01/23/18 01:30 01/23/18 02:00 Temperature Pulse Rate 56 L 55 L 56 L Respiratory Rate 18 17 16 Blood Pressure 150/83 H 149/85 H 160/86 H Pulse Oximetry 97 100 100 01/23/18 02:30 01/23/18 03:00 01/23/18 03:30 Temperature Pulse Rate 56 L 53 L 60 Respiratory Rate 17 16 19 Blood Pressure 151/84 H 150/82 H 146/81 H Pulse Oximetry 100 100 100 01/23/18 04:00 01/23/18 04:03 01/23/18 04:30 Temperature Pulse Rate 58 L 58 L 55 L Respiratory Rate 16 16 16 Blood Pressure 167/86 H 166/88 H Pulse Oximetry 100 100 100 01/23/18 05:00 01/23/18 05:30 01/23/18 06:00 Temperature Pulse Rate 55 L 62 77 Respiratory Rate 17 17 18 Blood Pressure 155/85 H 159/88 H 110/66 Pulse Oximetry 100 100 98 01/23/18 06:30 01/23/18 07:00 01/23/18 07:30 Temperature Pulse Rate 62 63 60 Respiratory Rate 17 17 20 Blood Pressure 147/82 H 166/93 H 150/85 H Pulse Oximetry 100 100 100 01/23/18 08:00 01/23/18 08:30 01/23/18 09:00 Temperature 97.9 F Pulse Rate 64 62 60 Respiratory Rate 18 19 20 Blood Pressure 166/92 H 155/84 H 149/82 H Pulse Oximetry 100 99 99 01/23/18 09:30 01/23/18 10:00 01/23/18 10:30 Temperature Pulse Rate 64 66 70 Respiratory Rate 18 16 15 Blood Pressure 162/88 H 169/90 H 175/94 H Pulse Oximetry 99 100 99 01/23/18 11:00 01/23/18 11:23 01/23/18 11:30 Temperature Pulse Rate 70 67 Respiratory Rate 16 18 19 Blood Pressure 171/95 H 158/87 H Pulse Oximetry 99 100 100 01/23/18 12:00 01/23/18 12:31 01/23/18 13:00 Temperature 98 F Pulse Rate 72 65 58 L Respiratory Rate 18 20 21 Blood Pressure 153/87 H 175/94 H 168/88 H Pulse Oximetry 98 100 96 01/23/18 13:30 01/23/18 14:00 01/23/18 14:30 Temperature Pulse Rate 63 62 58 L Respiratory Rate 20 21 20 Blood Pressure 132/82 112/73 134/82 Pulse Oximetry 99 100 98 01/23/18 15:00 01/23/18 15:30 01/23/18 16:00 Temperature 98.1 F Pulse Rate 66 80 72 Respiratory Rate 19 20 19 Blood Pressure 105/65 96/59 L 104/69 Pulse Oximetry 99 98 97 01/23/18 16:29 01/23/18 16:30 01/23/18 17:00 Temperature Pulse Rate 70 66 Respiratory Rate 19 18 19 Blood Pressure 100/70 Pulse Oximetry 100 100 98 01/23/18 17:01 01/23/18 17:30 01/23/18 18:00 Temperature Pulse Rate 66 66 63 Respiratory Rate 19 18 17 Blood Pressure 160/86 H 167/92 H 171/86 H Pulse Oximetry 97 100 98 01/23/18 18:30 01/23/18 19:45 01/23/18 20:00 Temperature 98.8 F Pulse Rate 68 59 L Respiratory Rate 16 18 20 Blood Pressure 168/86 H 161/83 H Pulse Oximetry 100 99 99 Intake & Output 01/23/18 01/23/18 01/24/18 06:59 18:59 06:59 Intake Total 1378 / 1378 900 / 900 605 / 605 Output Total 4230 / 4230 Balance 1353 / 1353 -3330 / -3330 605 / 605 Weight 117.5 kg Intake: IV 805 / 805 600 / 600 605 / 605 Precedex Inj 1,000 MCG In NS 250 / 250 250 / 250 250 / 250 Inj 240 ML @ 0.2 MCG/KG/HR 5.85 mls/hr IV.CONT TITRATE PRN Rx# :[id number] Cardene Inj 25 MG In NS Inj 240 150 / 150 ML @ 5 MG/HR 50 mls/hr IV.CONT TITRATE PRN Rx#:[id number] Flexbumin 25% Inj 100 ML @ 60 300 / 300 mls/hr IV.SIG WITH DIALYSIS PRN Rx#:[id number] Diflucan 400 mg Premix Bag 200 200 / 200 200 / 200 ML @ 100 mls/hr IV.SIG Q24H [facility] Rx#:[id number] Zosyn 2.25 GM Premix 50 ML @ 100 / 100 50 / 50 50 / 50 100 mls/hr IV.SIG Q6H [facility] Rx#: [id number] Keppra Inj 500 MG In NS Inj 100 105 / 105 105 / 105 ML @ 400 mls/hr IV.SIG Q12H [facility] Rx#:[id number] Tube Feeding 473 / 473 300 / 300 Water Bolus Amount 100 / 100 Output: Stool 25 / 25 Hemodialysis Amount 4000 / 4000 Urine Amount (Catheter) 200 / 200 Straight 200 / 200 Chest Tube Drainage 30 / 30 #2 Right Pleural 30 / 30 Other: Date of Last Bowel Movement 01/23/18 01/23/18 01/23/18 Lab - Hematology Results 01/22/18 01/23/18 03:38 05:45 WBC 17.0 H 19.6 H RBC 3.10 L 2.98 L Hgb 9.4 L 9.2 L Hct 28.1 L 26.7 L MCV 90.6 89.4 MCH 30.4 30.8 MCHC 33.5 34.5 RDW 14.6 15.0 Plt Count 173 D 184 MPV 9.5 9.4 Prelim Diff (Auto) Slide review pending Slide review pending Neut % (Auto) 91.5 H 93.1 H Lymph % (Auto) 2.3 L 2.3 L [place] % (Auto) 6.1 4.4 Eos % (Auto) 0.0 0.1 Baso % (Auto) 0.1 0.1 Neut # (Auto) 15.5 H 18.3 H Lymph # (Auto) 0.4 L 0.4 L [place] # (Auto) 1.0 H 0.9 Eos # (Auto) 0.0 0.0 Baso # (Auto) 0.0 0.0 WBC Differential Manual diff final Manual diff final Seg Neuts % (Manual) 86 H 85 H Band Neuts % (Manual) 6 10 H Lymphocytes % (Manual) 2 L Monocytes % (Manual) 2 1 Eosinophils % (Manual) 1 Metamyelocytes % (Man) 2 H 1 Myelocytes % (Man) 1 H 2 H Promyelocytes % (Man) 1 H Abs Neuts (Manual) 16.3 H 19.2 H Differential Comment . . Toxic Granulation 1+ H 1+ H Platelet Estimate Normal Normal Platelet Morphology Normal Normal Lab - Chemistry Results 01/22/18 01/22/18 01/22/18 00:01 03:38 06:07 Sodium 141 Potassium 3.3 L Chloride 100 Carbon Dioxide 24.6 Anion Gap 16 H BUN 94 H Creatinine 6.78 H Estimated GFR 8 L POC Glucose 393 H 365 H Random Glucose 383 H Calcium 8.2 L Phosphorus 3.0 D Magnesium 1.9 Total Bilirubin 1.2 H AST 202 H ALT 438 H Alkaline Phosphatase 264 H Total Protein 5.6 L Albumin 2.6 L 01/22/18 01/22/18 01/23/18 11:03 16:59 00:02 Sodium Potassium Chloride Carbon Dioxide Anion Gap BUN Creatinine Estimated GFR POC Glucose 354 H 269 H 290 H Random Glucose Calcium Phosphorus Magnesium Total Bilirubin AST ALT Alkaline Phosphatase Total Protein Albumin 01/23/18 01/23/18 01/23/18 05:26 05:45 11:29 Sodium 139 Potassium 3.6 Chloride 99 Carbon Dioxide 22.2 Anion Gap 18 H BUN 124 H Creatinine 8.53 H Estimated GFR 6 L POC Glucose 297 H 353 H Random Glucose 283 H D Calcium 8.6 Phosphorus 6.1 H D Magnesium 2.1 Total Bilirubin AST ALT Alkaline Phosphatase Total Protein Albumin 2.5 L 01/23/18 17:14 Sodium Potassium Chloride Carbon Dioxide Anion Gap BUN Creatinine Estimated GFR POC Glucose 239 H Random Glucose Calcium Phosphorus Magnesium Total Bilirubin AST ALT Alkaline Phosphatase Total Protein Albumin Imaging: ITS Impressions Cervical Spine CT 01/14/18 21:58 CONCLUSION: 1. No acute fracture or malalignment. 2. Subcutaneous emphysema again noted as well as the known right pneumothorax. Head CT 01/14/18 21:58 CONCLUSION: 1. No acute hemorrhage or mass effect. 2. Stable area of encephalomalacia in the right lateral lobe. . Abdomen X-Ray 01/15/18 00:00 CONCLUSION: 1. No free intraperitoneal air. 2. Residual small pneumothoraces with small chest tubes in place. Abdomen/Bladder Ultrasound 01/16/18 00:00 CONCLUSION: 1. Trace ascites. 2. Negative renal ultrasound Abdomen/Pelvis CT 01/16/18 00:00 CONCLUSION: 1. Minimal free intraperitoneal air. I don't see etiology for such 2. Dense consolidation both lung bases with small bilateral chest tubes 3. Trace pneumothorax on the left. No pneumothorax on the right. 4. Moderate fatty replacement to the liver with prominent gallbladder Chest CT 01/16/18 00:00 . CONCLUSION: 1. Dense consolidation in both lung bases small bore chest tubes evident. 2. Trace pneumothorax on the left 3. No significant fluid. Head MRI 01/16/18 06:37 CONCLUSION: 1. 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 2. There is no restricted diffusion to suggest extension of or new infarct. Chest X-Ray 01/22/18 06:00 CONCLUSION: Persistent bilateral pulmonary opacity. Increased in distinctness of the right hemidiaphragm indicating possible decrease in right lung base opacity. No other significant interval change. Physical Exam: GENERAL: sedated intubated. on vent SKIN: Warm and dry. EYES: Pupils equal and round. No scleral icterus. No injection or drainage. ENT: No nasal bleeding or discharge. Mucous membranes pink and moist. NECK: Trachea midline. No JVD. + SQ empysema palpable CARDIOVASCULAR: Regular rate and rhythm. RESPIRATORY: No accessory muscle use. Clear to auscultation. Breath sounds equal bilaterally. GASTROINTESTINAL: Abdomen soft, no raction to palpation, +distended. Hepatic and splenic margins not palpable. MUSCULOSKELETAL: Extremities without clubbing, cyanosis, improved edema. No obvious deformities. NEUROLOGICAL: responsive PSYCHIATRIC: unable to assess G&U :minimal urine output Assessment and Plan - Plan Sepsis, septic shock on presentation: Lactic acidosis Leukocytosis, then leukopenia Multiorgan failuer Acute VDRF - improving ARF, unuric Critical, stable Aspiration PNA vs aspiration pneumonitis Leukocytosis, ? stereoids induced s/p seizure (ETOH withdrawl?) P t [id number] with vomiting Seen same day in ER and CT abd/pel done w/o acute findings Presented with pneumomediastinum and b/l pneumothoraces Ethiology of pneumomediastinum likelt traumatic CPR, no viscus perforation dc Zosyn dc Fluconazol will fu WBC, temps dw RN dw family @ b/s Im off thru Mon 01/29 otre ID physicians a recovering for me
[2018-01-23] MEDS: hydrALAZINE HCl Inj 20 MG/ML Vial IV.PUSH PRN (22:55)
[2018-01-24] MEDS: Insulin NovoLIN Regular Correctional Sugar Inj SQ SCH ×4 (00:19→18:47)
[2018-01-24] MEDS: Artificial Tears Opth Drops 15 ML Bottle EACH EYE SCH ×3 (00:19→18:35)
[2018-01-24] MEDS: Oral Hygiene Kit OROPHARYNG SCH ×4 (00:19→18:35)
[2018-01-24] MEDS: Dexmedetomidine Inj 1,000 MCG in Sodium Chlor 0.9% Inj 240 ML IV.CONT PRN ×3 (00:20→21:55)
[2018-01-24] MEDS: hydrALAZINE HCl Inj 20 MG/ML Vial IV.PUSH PRN ×2 (00:20→04:43)
[2018-01-24] MEDS: Morphine Sulfate Inj 2 MG/ML Vial IV.PUSH PRN ×3 (01:09→22:47)
[2018-01-24] MEDS: Pantoprazole Inj 40 MG Vial IV.PUSH SCH ×2 (01:12→13:09)
[2018-01-24 04:01] LABS: ABG Base Excess -1.5 mmol/L (-2-2); ABG PCO2 33 mmHg (38-42); ABG PO2 87 mmHG (61-120)
[2018-01-24 04:20] LABS: Baso % (Auto) 0.1 % (0.0-2.0); Hematocrit 26.1 % (39.0-51.0); Hemoglobin 8.7 gm/dL (13.0-17.0); Lymph # (Auto) 0.3 th/mm3 (1.0-4.8); Lymph % (Auto) 1.7 % (9.0-44.0); Mean Corpuscular HGB Conc 33.3 % (32.0-36.0); Mean Corpuscular Hemoglobin 30.1 pg (27.0-34.0); Mean Corpuscular Volume 90.5 fL (80.0-100.0); Mean Platelet Volume 8.8 fL (7.0-11.0); Mono # (Auto) 0.5 th/mm3 (0.0-0.9); Mono % (Auto) 3.1 % (0.0-8.0); Neut # (Auto) 16.5 th/mm3 (1.8-7.7); Neut % (Auto) 95.1 % (16.0-70.0); Platelet Count 189 th/mm3 (150-450); Red Blood Count 2.88 mil/mm3 (4.50-5.90); Red Cell Distribution Width 15.4 % (11.6-17.2); White Blood Count 17.4 th/mm3 (4.0-11.0)
[2018-01-24 04:57] LABS: Alanine Aminotransferase 229 U/L (12-78); Albumin 3.3 g/dL (3.4-5.0); Alkaline Phosphatase 211 U/L (45-117); Anion Gap 16 meq/L (5-15); Aspartate Aminotransferase 111 U/L (15-37); Blood Urea Nitrogen 111 mg/dL (7-18); Calcium 8.3 mg/dL (8.5-10.1); Carbon Dioxide 23.9 meq/L (21.0-32.0); Chloride 100 meq/L (98-107); Glomerular Filtration Rate 8 mL/min (>89); Glucose,Random 297 mg/dL (74-106); Phosphorus 5.3 mg/dL (2.5-4.9); Potassium 3.5 meq/L (3.5-5.1); Sodium 140 meq/L (136-145); Total Protein 5.8 g/dL (6.4-8.2)
[2018-01-24] MEDS: Heparin - SQ 10,000 UNITS/ML Vial SQ SCH ×3 (05:29→21:54)
[2018-01-24] MEDS: Levothyroxine 88 MCG Tablet PO SCH (05:29)
--- NOTE | 2018-01-24 05:57 | XR ---
EXAM DATE: 01/24/2018 5:32 AM EST AGE/SEX: 62 years / Male INDICATIONS: Shortness of breath. CLINICAL DATA: This is the patient's subsequent encounter. Patient reports that signs and symptoms h ave been present for 1 week and indicates a pain score of Nonresponsive. MEDICAL/SURGICAL HISTORY: . Stroke. Hypertension. Diabetes mellitus type II. Seizures. . Ches t tube, left. COMPARISON: [facility], CHEST 1V SINGLE AP, 01/22/2018. . FINDINGS: Single AP view the chest. Endotracheal tube, nasogastric tube, left IJ central venous catheter remain in place. Persistent elevation of the right hemidiaphragm. Persistent bilateral pulmonary opacity. N o significant interval change. No evidence of pneumothorax. CONCLUSION: No significant interval change with persistent left greater than right pulmonary opacity. Electronically signed by: Osman Saha MD 01/24/2018 5:55 AM EST
[2018-01-24 09:03] LABS: Lymphocytes 1 % (9-44); Monocytes 2 % (0-8); Myelocytes 1 % (0-0)
[2018-01-24 09:04] LABS: Platelet Estimate Normal (Normal); Toxic Granulation 1+
[2018-01-24 09:05] LABS: RBC Morphology Normal (Normal)
[2018-01-24] MEDS: hydrALAZINE 25 MG Tablet PO SCH ×3 (10:25→18:35)
[2018-01-24] MEDS: Folic Acid 1 MG Tablet PO SCH (10:26)
[2018-01-24] MEDS: Senna/Docusate Sodium 8.6/50 MG Tablet PO SCH ×2 (10:26→20:38)
[2018-01-24] MEDS: Chlorhexidine 0.12% Oral Kit 15 ML UDC OROPHARYNG SCH ×2 (10:27→20:39)
[2018-01-24] MEDS: Carvedilol 6.25 MG Tablet PO SCH ×2 (10:27→20:38)
[2018-01-24] MEDS: MethylPREDNISolone Sod Succinate Inj 40 MG/ML Vial IV.PUSH SCH ×2 (10:28→20:39)
--- NOTE | 2018-01-24 13:31 | P.PNNP ---
Subjective Interval history: Patient appears to be awake. Currently on CPAP. sitting by bed. Physical Exam Vital signs: Vital Signs 01/23/18 13:30 01/23/18 14:00 01/23/18 14:30 Temperature Pulse Rate 63 62 58 L Respiratory Rate 20 21 20 Blood Pressure 132/82 112/73 134/82 Pulse Oximetry 99 100 98 01/23/18 15:00 01/23/18 15:30 01/23/18 16:00 Temperature 98.1 F Pulse Rate 66 80 72 Respiratory Rate 19 20 19 Blood Pressure 105/65 96/59 L 104/69 Pulse Oximetry 99 98 97 01/23/18 16:29 01/23/18 16:30 01/23/18 17:00 Temperature Pulse Rate 70 66 Respiratory Rate 19 18 19 Blood Pressure 100/70 Pulse Oximetry 100 100 98 01/23/18 17:01 01/23/18 17:30 01/23/18 18:00 Temperature Pulse Rate 66 66 63 Respiratory Rate 19 18 17 Blood Pressure 160/86 H 167/92 H 171/86 H Pulse Oximetry 97 100 98 01/23/18 18:30 01/23/18 19:45 01/23/18 20:00 Temperature 98.8 F Pulse Rate 68 59 L Respiratory Rate 16 18 20 Blood Pressure 168/86 H 161/83 H Pulse Oximetry 100 99 99 01/24/18 00:00 01/24/18 00:20 01/24/18 04:00 Temperature Pulse Rate 65 54 L Respiratory Rate 17 20 18 Blood Pressure 129/79 156/78 H Pulse Oximetry 100 99 100 01/24/18 04:12 01/24/18 08:00 Temperature Pulse Rate Respiratory Rate 17 17 Blood Pressure Pulse Oximetry 100 100 Intake & Output 01/23/18 01/24/18 01/24/18 18:59 06:59 18:59 Intake Total 900 / 900 1789 / 1789 Output Total 4230 / 4230 75 / 75 Balance -3330 / -3330 1714 / 1714 Weight 116 kg Intake: IV 600 / 600 1210 / 1210 Precedex Inj 1,000 MCG In NS 250 / 250 750 / 750 Inj 240 ML @ 0.2 MCG/KG/HR 5.85 mls/hr IV.CONT TITRATE PRN Rx# :[id number] Flexbumin 25% Inj 100 ML @ 60 300 / 300 mls/hr IV.SIG WITH DIALYSIS PRN Rx#:[id number] Diflucan 400 mg Premix Bag 200 200 / 200 ML @ 100 mls/hr IV.SIG Q24H [facility] Rx#:[id number] Zosyn 2.25 GM Premix 50 ML @ 50 / 50 50 / 50 100 mls/hr IV.SIG Q6H [facility] Rx#: [id number] Keppra Inj 500 MG In NS Inj 100 210 / 210 ML @ 400 mls/hr IV.SIG Q12H [facility] Rx#:[id number] Tube Feeding 300 / 300 379 / 379 Water Bolus Amount 200 / 200 Output: Urine 0 / 0 Stool 75 / 75 Hemodialysis Amount 4000 / 4000 Urine Amount (Catheter) 200 / 200 Straight 200 / 200 Chest Tube Drainage #2 Right Pleural Other: Date of Last Bowel Movement 01/23/18 01/24/18 Narrative: GENERAL: Obese male lying in bed with an ET tube in place on CPAP. SKIN: Warm and dry. HEAD: Normocephalic. Periorbital edema. EYES: No scleral icterus. No injection or drainage. NECK: Supple, trachea midline. No JVD . CARDIOVASCULAR: Regular rate and rhythm without murmurs, gallops, or rubs. RESPIRATORY: Breath sounds equal bilaterally. No accessory muscle use. GASTROINTESTINAL: Abdomen soft, non-tender, distended but not tender. MUSCULOSKELETAL: No cyanosis, 1+ edema of the limbs. - Urinary Catheter Management Indwelling Temp Sensing Catheter Cath placed during this visit: yes, but has since been removed by the nurse Reason for continuing: Decision to DC catheter Insertion date: 01/14/18 Insertion time: 22:00 Removal date: 01/21/18 Removal time: 18:00 Straight Cath placed during this visit: no Assessment and Plan - Assessment (1) Acute renal failure Code(s): N17.9 - Acute kidney failure, unspecified Status: Acute Plan: Remains HD dependent. No evidence of renal recovery at this point in time. I discussed with the today prognosis as far as renal recovery is concerned. She was advised patient is still dialysis dependent without. Next dialysis session tentatively Sunday. Given history of alcohol abuse, sepsis, rhabdomyolysis, respiratory insufficiency and hepatic dysfunction he remains critically ill with guarded prognosis. Medications should be adjusted for the patient's estimated GFR if clinically indicated. Avoid agents with significant potential for nephrotoxicity possible including NSAIDs for analgesia, iodine contrast agents. Gadolinium is contraindicated if the GFR is below 30. (2) Alcohol abuse Code(s): F10.10 - Alcohol abuse, uncomplicated Status: Acute (3) Alcohol withdrawal seizure with complication Code(s): F10.239 - Alcohol dependence with withdrawal, unspecified; R56.9 - Unspecified convulsions Status: Acute (4) Rhabdomyolysis Code(s): M62.82 - Rhabdomyolysis Status: Acute Plan: Related to previous seizure.
--- NOTE | 2018-01-24 19:47 | P.PNCC ---
Subjective Subjective Remarks/Hospital Course: 62-year-old male patient presents because he was found down by family, on evaluation by EMS he had notable seizures, and they had tried Versed without success, he was vomiting dark material. They tried to intubate him for airway protection, but were unable to intubate him. However, the seizures had stopped at that point. He was obtunded in the ER and was intubated by ED attending. Shortly after intubation patient lost his pulses and CPR was initiated. He has regained spontaneous circulation after 2 cycles of CPR and injections of epinephrine. There was significant subcutaneous emphysema noticed and the patient was rushed to CT for the CT of the head chest and abdomen that showed large bilateral pneumothoraces, as well as free air in peritoneal cavity. Bilateral chest tubes were placed immediately in the emergency department. 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 Jimenez. It was felt the air in abdominal cavity is more likely leak from the chest cavity from bilateral tension pneumothoraces and observation without emergent surgical intervention was recommended. The patient was transferred to ICU where he suffered another cardiac arrest. He has regained again spontaneous circulation post 2 cycles of CPR, 2 A of sodium bicarb and 2 A of epinephrine. The patient's was updated about the critical condition at the bedside. 01/15: Patient remains critically ill on max dose of norepinephrine, vasopressin , and epinephrine. His oxygenation overnight has somehow improved with Flolan infusion, however still requiring aggressive APRV mode of ventilation. 01/16: Off all vasopressors. Oxygenation stable. Switch from AP RV to [place] VC. Will attempt MRI brain due to neglect and left sided weakness exam. CT thorax with oral contrast to rule out esophageal perforation. Recheck abdomen pelvis today. Remains on fluconazole, piperacillin/tazobactam and, vancomycin infectious disease. Heparin drip discontinued secondary to acute drop in platelets. Fibrinogen pending. Haptoglobin LDH and smear pending. 01/17: Afebrile. Remains off all vasopressors. Minimal urine output overnight. Plan for hemodialysis today once platelets arrived. Minimal output from chest tubes bilaterally. FiO2 down to 40%. PEEP down to 10. 01/18: Afebrile. -3.5 L with hemodialysis today. Off all vasopressors. Will attempt sedation vacation later on this morning. FiO2 down to 40%. PEEP down to 5. 01/19: Bradycardic. Will attempt to exchange bite block today. Minimal output from chest tubes. Hemodialysis ongoing currently. 01/20: Remains bradycardic. Beta-cristian has been removed. Minimal output from chest tubes. Afebrile. Will attempt to wean ventilator using dexmedetomidine drip. Subjective 01/21: Currently on dexmedetomidine for vent weaning. Tolerating hemodialysis. More arousable. Looking around but not following commands. Positive BM. Tolerating tube feeding. 01/22: CPAP trials initiated this a.m. The patient is awake but does not follow any commands. CPAP trials continue noted chest x-ray concerning for persistent bilateral pulmonary opacities. We will obtain SBT today. 01/23: Patient currently undergoing hemodialysis plan for 4 L removal of fluid. The patient was placed on a rate last night CPAP trial was reinitiated at 6 AM. Plan to continue CPAP throughout the evening. Will attempt SBT trial today if possible. Patient tolerating tube feeds. Bilateral chest tube remain on suction minimal output. 01/24: No change in neurological status. The patient was removed from CPAP trials last evening and placed back on a rate during the night CPAP trials were reinitiated today. Patient's at bedside, provided medical status update. Chest x-ray remains unchanged .Plan for SBT reevaluation. Objective Vital Signs / I&O: Vital Signs 01/23/18 19:45 01/23/18 20:00 01/24/18 00:00 Temperature 98.8 F Pulse Rate 59 L 65 Respiratory Rate 18 20 17 Blood Pressure 161/83 H 129/79 Pulse Oximetry 99 99 100 01/24/18 00:20 01/24/18 04:00 01/24/18 04:12 Temperature Pulse Rate 54 L Respiratory Rate 20 18 17 Blood Pressure 156/78 H Pulse Oximetry 99 100 100 01/24/18 04:30 01/24/18 05:00 01/24/18 05:01 Temperature Pulse Rate 56 L 56 L Respiratory Rate 19 19 Blood Pressure 172/84 H 154/76 H Pulse Oximetry 100 100 01/24/18 05:31 01/24/18 06:00 01/24/18 06:30 Temperature Pulse Rate 56 L 67 62 Respiratory Rate 19 18 18 Blood Pressure 141/73 H 108/59 L 143/74 H Pulse Oximetry 100 100 100 01/24/18 07:00 01/24/18 07:30 01/24/18 08:00 Temperature 98.1 F Pulse Rate 54 L 53 L 65 Respiratory Rate 18 18 17 Blood Pressure 148/75 H 149/77 H 146/78 H Pulse Oximetry 100 100 100 01/24/18 08:30 01/24/18 09:00 01/24/18 09:30 Temperature Pulse Rate 61 62 66 Respiratory Rate 21 20 20 Blood Pressure 161/84 H 164/80 H 162/84 H Pulse Oximetry 100 100 100 01/24/18 10:00 01/24/18 10:31 01/24/18 11:00 Temperature Pulse Rate 62 64 68 Respiratory Rate 17 18 18 Blood Pressure 166/89 H 156/80 H 148/75 H Pulse Oximetry 100 100 99 01/24/18 11:30 01/24/18 12:00 01/24/18 12:30 Temperature Pulse Rate 66 59 L 62 Respiratory Rate 18 20 18 Blood Pressure 148/77 H 146/78 H 158/83 H Pulse Oximetry 100 100 100 01/24/18 13:00 01/24/18 13:30 01/24/18 14:00 Temperature Pulse Rate 60 60 56 L Respiratory Rate 18 20 17 Blood Pressure 151/82 H 153/81 H 153/79 H Pulse Oximetry 100 100 100 01/24/18 14:30 01/24/18 15:00 01/24/18 15:30 Temperature Pulse Rate 61 59 L 60 Respiratory Rate 17 17 16 Blood Pressure 155/84 H 157/84 H 157/85 H Pulse Oximetry 100 100 100 01/24/18 16:00 01/24/18 16:30 01/24/18 16:51 Temperature Pulse Rate 59 L 63 Respiratory Rate 17 16 16 Blood Pressure 156/83 H 158/86 H Pulse Oximetry 100 99 100 Intake & Output 01/24/18 01/24/18 01/25/18 06:59 18:59 06:59 Intake Total 1789 / 1789 105 / 105 Output Total 75 / 75 Balance 1714 / 1714 105 / 105 Weight 116 kg Intake: IV 1210 / 1210 105 / 105 Precedex Inj 1,000 MCG In NS 750 / 750 Inj 240 ML @ 0.2 MCG/KG/HR 5.85 mls/hr IV.CONT TITRATE PRN Rx# :[id number] Diflucan 400 mg Premix Bag 200 200 / 200 ML @ 100 mls/hr IV.SIG Q24H HENRY Rx#:[id number] Zosyn 2.25 GM Premix 50 ML @ 50 / 50 100 mls/hr IV.SIG Q6H HENRY Rx#: [id number] Keppra Inj 500 MG In NS Inj 100 210 / 210 105 / 105 ML @ 400 mls/hr IV.SIG Q12H HENRY Rx#:[id number] Tube Feeding 379 / 379 Water Bolus Amount 200 / 200 Output: Urine 0 / 0 Stool 75 / 75 Other: Date of Last Bowel Movement 01/24/18 01/24/18 Result Diagrams: 01/24/18 04:00 01/24/18 04:00 Imaging: Laboratory Results WBC 17.4 th/mm3 (4.0-11.0) H 01/24/18 04:00 RBC 2.88 mil/mm3 (4.50-5.90) L 01/24/18 04:00 Hgb 8.7 gm/dL (13.0-17.0) L 01/24/18 04:00 Hct 26.1 % (39.0-51.0) L 01/24/18 04:00 MCV 90.5 fL (80.0-100.0) 01/24/18 04:00 MCH 30.1 pg (27.0-34.0) 01/24/18 04:00 MCHC 33.3 % (32.0-36.0) 01/24/18 04:00 RDW 15.4 % (11.6-17.2) 01/24/18 04:00 Plt Count 189 th/mm3 (150-450) 01/24/18 04:00 MPV 8.8 fL (7.0-11.0) 01/24/18 04:00 Prelim Diff (Auto) Slide review pending 01/24/18 04:00 Neut % (Auto) 95.1 % (16.0-70.0) H 01/24/18 04:00 Lymph % (Auto) 1.7 % (9.0-44.0) L 01/24/18 04:00 [place] % (Auto) 3.1 % (0.0-8.0) 01/24/18 04:00 Eos % (Auto) 0.0 % (0.0-4.0) 01/24/18 04:00 Baso % (Auto) 0.1 % (0.0-2.0) 01/24/18 04:00 Neut # (Auto) 16.5 th/mm3 (1.8-7.7) H 01/24/18 04:00 Lymph # (Auto) 0.3 th/mm3 (1.0-4.8) L 01/24/18 04:00 [place] # (Auto) 0.5 th/mm3 (0.0-0.9) 01/24/18 04:00 Eos # (Auto) 0.0 th/mm3 (0.0-0.4) 01/24/18 04:00 Baso # (Auto) 0.0 th/mm3 (0.0-0.2) 01/24/18 04:00 WBC Differential Manual diff final 01/24/18 04:00 Seg Neuts % (Manual) 95 % (16-70) H 01/24/18 04:00 Band Neuts % (Manual) 1 % (0-6) 01/24/18 04:00 Lymphocytes % (Manual) 1 % (9-44) L 01/24/18 04:00 Monocytes % (Manual) 2 % (0-8) 01/24/18 04:00 Eosinophils % (Manual) 1 % (0-4) 01/23/18 05:45 Basophils % (Manual) 1 % (0-2) 01/15/18 03:30 Metamyelocytes % (Man) 1 % (0-1) 01/23/18 05:45 Myelocytes % (Man) 1 % (0-0) H 01/24/18 04:00 Promyelocytes % (Man) 1 % (0-0) H 01/22/18 03:38 Blast Cells % (Manual) 1 % (0-0) H 01/15/18 03:30 Abs Neuts (Manual) 16.9 th/mm3 (1.8-7.7) H 01/24/18 04:00 Nucleated RBCs/100 WBC 1 /100 WBC (0-0) H 01/20/18 05:15 Differential Comment . 01/24/18 04:00 Toxic Granulation 1+ (None) H 01/24/18 04:00 Dohle Bodies Present (None) H 01/19/18 04:00 Platelet Estimate Normal (Normal) 01/24/18 04:00 Platelet Morphology Hypogranular (Normal) H 01/24/18 04:00 RBC Morphology Normal (Normal) 01/24/18 04:00 Dimorphic RBCs Present (None) H 01/20/18 05:15 Tear Drop Cells 1+ (None) H 01/15/18 03:30 Smear Path Review 01/16/18 05:05 Haptoglobin 143 mg/dL (30-200) 01/16/18 08:10 PT 13.1 sec (9.8-11.6) H 01/15/18 03:30 INR 1.3 Ratio 01/15/18 03:30 APTT 40.6 sec (23.4-31.7) H D 01/16/18 14:30 Fibrinogen 282 mg/dL (227-377) 01/16/18 05:05 Puncture Site Art line 01/24/18 03:50 Patient Temperature 98.6 01/24/18 03:50 O2 Saturation 94 % (90-100) 01/24/18 03:50 ABG pH 7.44 (7.380-7.420) H 01/24/18 03:50 ABG pCO2 33 mmHg (38-42) L 01/24/18 03:50 ABG pO2 87 mmHG (61-120) 01/24/18 03:50 ABG HCO3 22 mmol/L (22-26) 01/24/18 03:50 ABG O2 Content 12.2 Vol % (12.0-20.0) 01/24/18 03:50 ABG Base Excess -1.5 mmol/L (-2-2) 01/24/18 03:50 ABG Methemoglobin 1.7 % (0-2) 01/24/18 03:50 Hemoglobin 9.1 G/DL (12.0-16.0) L 01/24/18 03:50 Carboxyhemoglobin 1.1 % (0-4) 01/24/18 03:50 O2 Delivery Device Ventilator 01/24/18 03:50 Liter Flow 15.00 L/M 01/15/18 00:50 Vent Setting Peep 5/ ps 10 01/24/18 03:50 Inspired O2 35 % 01/24/18 03:50 Critical Value No 01/24/18 03:50 Sodium 140 meq/L (136-145) 01/24/18 04:00 Potassium 3.5 meq/L (3.5-5.1) 01/24/18 04:00 Chloride 100 meq/L (98-107) 01/24/18 04:00 Carbon Dioxide 23.9 meq/L (21.0-32.0) 01/24/18 04:00 Anion Gap 16 meq/L (5-15) H 01/24/18 04:00 BUN 111 mg/dL (7-18) H 01/24/18 04:00 Creatinine 7.06 mg/dL (0.60-1.30) H 01/24/18 04:00 Estimated GFR 8 mL/min (>89) L 01/24/18 04:00 POC Glucose 176 mg/dl (68-110) H 01/24/18 16:36 Random Glucose 297 mg/dL (74-106) H 01/24/18 04:00 Lactic Acid 1.2 mmol/L (0.4-2.0) 01/18/18 03:30 Calcium 8.3 mg/dL (8.5-10.1) L 01/24/18 04:00 Prot Corrected Calcium 7.5 mg/dL (8.5-10.1) L 01/18/18 03:30 Phosphorus 5.3 mg/dL (2.5-4.9) H 01/24/18 04:00 Magnesium 2.0 mg/dL (1.5-2.5) 01/24/18 04:00 Total Bilirubin 1.1 mg/dL (0.2-1.0) H 01/24/18 04:00 Direct Bilirubin 2.0 mg/dL (0.0-0.2) H 01/16/18 08:10 Indirect Bilirubin 1.6 mg/dL (0.0-0.8) H 01/16/18 08:10 AST 111 U/L (15-37) H 01/24/18 04:00 ALT 229 U/L (12-78) H 01/24/18 04:00 Alkaline Phosphatase 211 U/L (45-117) H 01/24/18 04:00 Ammonia 33 mcmol/L (11-32) H 01/24/18 04:00 Lactate Dehydrogenase 5175 U/L (87-241) H 01/16/18 08:10 Total Creatine Kinase 8039 U/L (39-308) H 01/18/18 03:30 CK-MB (CK-2) 11.1 ng/mL (0.5-3.6) H 01/18/18 03:30 CK-MB (CK-2) % 0.1 % (0.0-4.0) 01/18/18 03:30 Troponin I 2.37 ng/mL (0.02-0.05) H* 01/16/18 08:10 Total Protein 5.8 g/dL (6.4-8.2) L 01/24/18 04:00 Albumin 3.3 g/dL (3.4-5.0) L D 01/24/18 04:00 TSH 0.612 uIU/mL (0.358-3.740) 01/17/18 05:30 Urine Eosinophils None seen /HPF (None Seen) 01/16/18 12:50 Ur Random Creatinine 145 mg/dL (27-300) 01/16/18 12:50 Ur Random Sodium 37 meq/L 01/16/18 12:50 Nasal Screen MRSA (PCR) Not detected (Negative) 01/15/18 02:00 Random Vancomycin 20.3 Comment 01/18/18 03:30 Urine Opiates Screen Neg (Neg) 01/15/18 10:50 Ur Barbiturates Screen Neg (Neg) 01/15/18 10:50 Ur Amphetamines Screen Neg (Neg) 01/15/18 10:50 U Benzodiazepines Scrn Pos (Neg) H 01/15/18 10:50 Urine Cocaine Screen Neg (Neg) 01/15/18 10:50 U Cannabinoids Screen Neg (Neg) 01/15/18 10:50 Serum Alcohol Less than 3 mg/dL (0-5) 01/14/18 21:36 Hepatitis A IgM Ab Nonreactive (Nonreactive) 01/19/18 04:00 Hep Bs Antigen Nonreactive (Nonreactive) 01/19/18 04:00 Hep B Core IgM Ab Nonreactive (Nonreactive) 01/19/18 04:00 Hep C IgG Ab Nonreactive (Nonreactive) 01/19/18 04:00 Blood Type O Positive 01/16/18 18:28 Blood Type Recheck Not needed 11/14/18 18:28 Antibody Screen Negative 01/16/18 18:28 MTS Gel Crossmatch See Detail 01/16/18 18:28 Blood Bank Comment 01/15/18 02:18 Bld Prod Order Comment 01/17/18 09:[address] 01/14/18 21:58 CONCLUSION: 1. No acute fracture or malalignment. 2. Subcutaneous emphysema again noted as well as the known right pneumothorax. Head CT 01/14/18 21:58 CONCLUSION: 1. No acute hemorrhage or mass effect. 2. Stable area of encephalomalacia in the right lateral lobe. . Abdomen X-Ray 01/15/18 00:00 CONCLUSION: 1. No free intraperitoneal air. 2. Residual small pneumothoraces with small chest tubes in place. Abdomen/Bladder Ultrasound 01/16/18 00:00 CONCLUSION: 1. Trace ascites. 2. Negative renal ultrasound Abdomen/Pelvis CT 01/16/18 00:00 CONCLUSION: 1. Minimal free intraperitoneal air. I don't see etiology for such 2. Dense consolidation both lung bases with small bilateral chest tubes 3. Trace pneumothorax on the left. No pneumothorax on the right. 4. Moderate fatty replacement to the liver with prominent gallbladder Chest CT 01/16/18 00:00 . CONCLUSION: 1. Dense consolidation in both lung bases small bore chest tubes evident. 2. Trace pneumothorax on the left 3. No significant fluid. Head MRI 01/16/18 06:37 CONCLUSION: 1. 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 2. There is no restricted diffusion to suggest extension of or new infarct. Chest X-Ray 01/24/18 04:00 CONCLUSION: No significant interval change with persistent left greater than right pulmonary opacity. Objective Remarks: GENERAL: 62-year-old male currently orotracheally treated with bilateral chest tubes critically ill. SKIN: Warm and dry. No rash HEAD: Atraumatic. Normocephalic. EYES: Pupils equal and round. No scleral icterus. No injection or drainage. ENT: No nasal bleeding or discharge. Mucous membranes pink and moist. NECK: Trachea midline. No JVD. CARDIOVASCULAR: Regular rate and rhythm with ectopy. S1, S2. No murmur RESPIRATORY: Diminished breath sounds in the bases bilaterally. Crepitus improved subcutaneous emphysema. Bilateral pigtail chest tubes are in place at at -40 cmH2O GASTROINTESTINAL: Abdomen soft, non-tender, nondistended. Hypoactive bowel sounds appreciated. MUSCULOSKELETAL: Extremities without without significant peripheral edema. No obvious deformities. NEUROLOGICAL: Currently dexmedetomidine drip. Spontaneously moving head side to side. Does not follow any commands. spontaneously withdraws to bilateral upper extremities. Positive gag and cough. Pupils reactive. Assessment and Plan - Assessment and Plan Plan: Neuro/Psych: Bipolar disorder History of right parietal CVA 2009 EtOH abuse Acute seizure Patient is currently on dexmedetomidine at 1mg/kg/hr sedation/analgesia while intubated Goal of RASS -[address] brain upon admission revealed right parietal region encephalomalacia. EEG 01/15 revealed no epileptic activity. Slowing MRI brain ordered revealed stable right sylvian infarct/old. No acute findings Holding home medication gabapentin 300 mg twice daily and ketamine 50 mg daily and sertraline 50 mg daily Vitamin bag daily times 3 days. Monitor for DTs Remains on levetiracetam 500 mg IV twice daily CV: Non-STEMI Elevated troponin Severe shock resolving History of essential hypertension History of hyperlipidemia Cardia Evaluated by cardiology/Dr. Gomez Started on carvedilol 3.125 mg twice daily. Holding valsartan 80 mg daily in light of acute kidney injury. Hydralazine 50 3 times daily and isosorbide dinitrate 20 3 times daily Holding atorvastatin 20 mg daily in light of acute liver injury. 2D echocardiogram revealed EF 55-60%. Mild LVH. PAP 31 mmHg. Currently normal sinus rhythm no ectopy. Initially heparin drip held due to severe thrombocytopenia Resp: Acute respiratory failure Bilateral pneumothoraces/pneumomediastinum Gastroesophageal reflux disease on pantoprazole at home [place] VC. Rate of 18. Tidal volume around 550. I time 1.0. PEEP of 5. FiO2 of 40%. Albuterol/ipratropium aerosols every 4 hours albuterol every 2 hours as needed dyspnea CT thorax revealed tiny left apical pneumothorax. Bilateral chest tubes in place. Dense consolidation bilateral lower lobes 01/24 chest x-ray unchanged-persistent opacities Maintain chest tubes at -40 cmH2O. Monitor output On methylprednisolone succinate 40 mg IV every 12 hours Obtain SBT parameters, plan for trial of extubation GI: Elevated LFTs Pneumoperitoneum with right retroperitoneal gas/gas around the right kidney Elevated ammonia CT abdomen/pelvis revealed gas in the anterior mediastinum/right retrocrural peritoneal gas/stranding right kidney.. Repeat 01/16 revealed tiny intrarenal for note on no obvious source. In ED this case was discussed with Dr. Jimenez/on-call physician. Believe this was secondary to bilateral pneumothoraces. No surgical intervention. Check lactate and CPK now Recheck CT abdomen/pelvis now. Will likely initiate tube feeding if no signs of esophageal perforation on CT with contrast of thorax Would recommend Nepro in light of acute kidney injury currently at 60 cc an hour Pantoprazole for GI prophylaxis Docusate sodium/senna 1 tablet twice daily for bowel regimen Ultrasound tests again revealed severe hepatic steatosis likely EtOH cirrhosis/ ischemia/CPK elevation. On lactulose 30 cc twice daily : Og catheter has been placed for accurate I's and O's in a critically ill patient Endo: History of diabetes mellitus History of hypothyroidism Glimepiride 2 mg twice daily is currently on hold. Sliding scale insulin regular insulin to maintain euglycemia Continue levothyroxine 88 mcg daily. TSH was 0.611 Renal: Acute kidney injury Rhabdomyolysis Currently on hemodialysis Nephrology following Renal ultrasound prophylaxis. Urine eosinophils negative No hydronephrosis. Avoid nephrotoxic medication Heme: Normocytic anemia Acute thrombocytopenia Persistent leukocytosis Unlikely hit secondary to timeframe. Elevated haptoglobin/LDH and peripheral smear no signs of mellitus We will discontinue heparin drip in light of significant thrombocytopenia. Aspirin on hold. ID: Discontinued piperacillin/tazobactam, vancomycin per infectious disease. Blood cultures no growth to date Fluconazole discontinued 01/17 ID following FEN: Hypopotassemia Replace electrolytes as clinically indicated. MSK: Elevated BMI Physical therapy evaluate and treat Weight loss encouraged Access -Right subclavian CVL day #9 placed 01/14. Discontinued 01/21 -Right brachial arterial line day #8 placed 01/15 Prophylaxis -GI-pantoprazole -DVT-SCD/holding pharmacological prophylaxis restarted today with heparin 5000 units subcu Critical care time 30 minutes Discussed Condition With: Patient's and [employer] at bedside
[2018-01-25] MEDS: Artificial Tears Opth Drops 15 ML Bottle EACH EYE SCH ×3 (00:32→16:19)
[2018-01-25] MEDS: Insulin NovoLIN Regular Correctional Sugar Inj SQ SCH ×4 (00:32→17:36)
[2018-01-25] MEDS: Oral Hygiene Kit OROPHARYNG SCH ×4 (01:16→16:19)
[2018-01-25] MEDS: Morphine Sulfate Inj 2 MG/ML Vial IV.PUSH PRN (01:17)
[2018-01-25] MEDS: Pantoprazole Inj 40 MG Vial IV.PUSH SCH ×2 (01:17→13:35)
[2018-01-25] MEDS: hydrALAZINE HCl Inj 20 MG/ML Vial IV.PUSH PRN ×2 (01:18→14:42)
[2018-01-25] MEDS: Dexmedetomidine Inj 1,000 MCG in Sodium Chlor 0.9% Inj 240 ML IV.CONT PRN (05:30)
[2018-01-25] MEDS: Heparin - SQ 10,000 UNITS/ML Vial SQ SCH ×3 (05:30→21:42)
[2018-01-25] MEDS: Levothyroxine 88 MCG Tablet PO SCH (05:32)
[2018-01-25] MEDS: Heparin 2,000 UNITS/2 ML Vial (for IV use) IV.FLUSH PRN (08:38)
[2018-01-25] MEDS: Chlorhexidine 0.12% Oral Kit 15 ML UDC OROPHARYNG SCH ×2 (09:25→21:41)
[2018-01-25] MEDS: hydrALAZINE 25 MG Tablet PO SCH ×3 (09:25→17:35)
[2018-01-25] MEDS: Carvedilol 6.25 MG Tablet PO SCH ×2 (09:26→21:41)
[2018-01-25] MEDS: Folic Acid 1 MG Tablet PO SCH (09:26)
[2018-01-25] MEDS: Senna/Docusate Sodium 8.6/50 MG Tablet PO SCH ×2 (09:27→21:41)
[2018-01-25] MEDS: MethylPREDNISolone Sod Succinate Inj 40 MG/ML Vial IV.PUSH SCH ×2 (09:28→21:42)
[2018-01-25] MEDS: Albumin Human 25% Inj 100 ML IV.SIG PRN (10:35)
--- NOTE | 2018-01-25 12:08 | P.PNNP ---
Subjective Interval history: Pt seen during HD today Access working well UF of 3L. Eyes open, but is making no meaningful response. Sister present in room. Physical Exam Vital signs: Vital Signs 01/24/18 12:30 01/24/18 13:00 01/24/18 13:30 Temperature Pulse Rate 62 60 60 Respiratory Rate 18 18 20 Blood Pressure 158/83 H 151/82 H 153/81 H Pulse Oximetry 100 100 100 01/24/18 14:00 01/24/18 14:30 01/24/18 15:00 Temperature Pulse Rate 56 L 61 59 L Respiratory Rate 17 17 17 Blood Pressure 153/79 H 155/84 H 157/84 H Pulse Oximetry 100 100 100 01/24/18 15:30 01/24/18 16:00 01/24/18 16:30 Temperature Pulse Rate 60 59 L 63 Respiratory Rate 16 17 16 Blood Pressure 157/85 H 156/83 H 158/86 H Pulse Oximetry 100 100 99 01/24/18 16:51 01/24/18 20:00 01/24/18 20:02 Temperature 98.2 F Pulse Rate 63 Respiratory Rate 16 19 17 Blood Pressure 153/81 H Pulse Oximetry 100 100 100 01/25/18 00:00 01/25/18 00:11 01/25/18 01:32 Temperature Pulse Rate 67 Respiratory Rate 19 17 18 Blood Pressure 145/78 H Pulse Oximetry 96 100 94 L 01/25/18 04:00 01/25/18 04:41 01/25/18 07:41 Temperature 98.4 F Pulse Rate 66 Respiratory Rate 19 17 18 Blood Pressure 139/75 Pulse Oximetry 96 97 100 01/25/18 11:06 Temperature Pulse Rate Respiratory Rate 18 Blood Pressure Pulse Oximetry 99 Intake & Output 01/24/18 01/25/18 01/25/18 18:59 06:59 18:59 Intake Total 355 / 355 1015 / 1015 Output Total 0 / 0 Balance 355 / 355 1015 / 1015 Weight 118 kg Intake: IV 355 / 355 355 / 355 Precedex Inj 1,000 MCG In NS 250 / 250 250 / 250 Inj 240 ML @ 0.2 MCG/KG/HR 5.85 mls/hr IV.CONT TITRATE PRN Rx# :[id number] Keppra Inj 500 MG In NS Inj 100 105 / 105 105 / 105 ML @ 400 mls/hr IV.SIG Q12H HENRY Rx#:[id number] Tube Feeding 460 / 460 Water Bolus Amount 200 / 200 Output: Urine 0 / 0 Chest Tube Drainage 0 / 0 #1 Left Pleural 0 / 0 #2 Right Pleural 0 / 0 Other: Date of Last Bowel Movement 01/24/18 01/25/18 # Incontinent Bowel Movements 1 - Constitutional no acute distress - Routine HEENT Exam Head: Present: normocephalic - Routine Neck Exam Present: supple - Routine Respiratory Exam Present: CTA bilaterally - Routine Cardiovascular Exam Present: RRR, S1, S2 - Routine Abdominal Exam Present: soft - Routine Extremities Exam Present: edema (signfiicant generalized edema) - Urinary Catheter Management Indwelling Temp Sensing Catheter Cath placed during this visit: yes, but has since been removed by the nurse Reason for continuing: Decision to DC catheter Insertion date: 01/14/18 Insertion time: 22:00 Removal date: 01/21/18 Removal time: 18:00 Straight Cath placed during this visit: no Assessment and Plan - Assessment (1) Acute renal failure Code(s): N17.9 - Acute kidney failure, unspecified Status: Acute Plan: Pt seen during HD today. Additional HD tomorrow for ultrafiltration given continued significant edema. Plans for extubation today. As discussed with his sister, remains dialysis dependent at this time and it is not certain if he will make renal recovery in the future. Given history of alcohol abuse, sepsis, rhabdomyolysis, respiratory insufficiency and hepatic dysfunction he remains critically ill with guarded prognosis. Medications should be adjusted for the patient's estimated GFR if clinically indicated. Avoid agents with significant potential for nephrotoxicity possible including NSAIDs for analgesia, iodine contrast agents. Gadolinium is contraindicated if the GFR is below 30. (2) Alcohol abuse Code(s): F10.10 - Alcohol abuse, uncomplicated Status: Acute (3) Alcohol withdrawal seizure with complication Code(s): F10.239 - Alcohol dependence with withdrawal, unspecified; R56.9 - Unspecified convulsions Status: Acute (4) Rhabdomyolysis Code(s): M62.82 - Rhabdomyolysis Status: Acute Plan: Related to previous seizure.
[2018-01-25 12:59] LABS: ABG Base Excess 2.1 mmol/L (-2-2); ABG PCO2 31 mmHg (38-42); ABG PO2 67 mmHG (61-120)
--- NOTE | 2018-01-25 13:09 | XR ---
EXAM DATE: 01/25/2018 1:06 PM EST AGE/SEX: 62 years / Male INDICATIONS: Respiratory failure. CLINICAL DATA: This is the patient's subsequent encounter. Patient reports that signs and symptoms h ave been present for 3 days and indicates a pain score of Nonresponsive. MEDICAL/SURGICAL HISTORY: Non-responsive. Non-responsive. COMPARISON: [facility], CHEST 1V SINGLE AP, 01/24/2018. . FINDINGS: Endotracheal tube tip is present 5 cm above the alberto. Left neck dialysis catheter extends SVC. Naso gastric tube descends into the stomach. Mild hazy bilateral pleural parenchymal opacity is improved f rom yesterday. Cardiac contours are grossly stable. CONCLUSION: Slight improvement in aeration. Electronically signed by: Dionisio Branham MD 01/25/2018 1:08 PM EST
[2018-01-25 13:42] LABS: Baso % (Auto) 0.1 % (0.0-2.0); Eos % (Auto) 0.1 % (0.0-4.0); Hematocrit 27.9 % (39.0-51.0); Hemoglobin 9.7 gm/dL (13.0-17.0); Lymph # (Auto) 0.4 th/mm3 (1.0-4.8); Lymph % (Auto) 1.6 % (9.0-44.0); Mean Corpuscular HGB Conc 34.6 % (32.0-36.0); Mean Corpuscular Hemoglobin 31.3 pg (27.0-34.0); Mean Corpuscular Volume 90.3 fL (80.0-100.0); Mean Platelet Volume 8.7 fL (7.0-11.0); Mono # (Auto) 0.8 th/mm3 (0.0-0.9); Mono % (Auto) 3.7 % (0.0-8.0); Neut # (Auto) 21.8 th/mm3 (1.8-7.7); Neut % (Auto) 94.5 % (16.0-70.0); Platelet Count 249 th/mm3 (150-450); Red Blood Count 3.09 mil/mm3 (4.50-5.90); Red Cell Distribution Width 16.1 % (11.6-17.2); White Blood Count 23.1 th/mm3 (4.0-11.0)
--- NOTE | 2018-01-25 13:57 | P.PNCC ---
Subjective Subjective Remarks/Hospital Course: 62-year-old male patient presents because he was found down by family, on evaluation by EMS he had notable seizures, and they had tried Versed without success, he was vomiting dark material. They tried to intubate him for airway protection, but were unable to intubate him. However, the seizures had stopped at that point. He was obtunded in the ER and was intubated by ED attending. Shortly after intubation patient lost his pulses and CPR was initiated. He has regained spontaneous circulation after 2 cycles of CPR and injections of epinephrine. There was significant subcutaneous emphysema noticed and the patient was rushed to CT for the CT of the head chest and abdomen that showed large bilateral pneumothoraces, as well as free air in peritoneal cavity. Bilateral chest tubes were placed immediately in the emergency department. The free air in the peritoneum with was discussed with the surgeon credit correspondence clerk Dr. Jimenez. It was felt the air in abdominal cavity is more likely leak from the chest cavity from bilateral tension pneumothoraces and observation without emergent surgical intervention was recommended. The patient was transferred to ICU where he suffered another cardiac arrest. He has regained again spontaneous circulation post 2 cycles of CPR, 2 A of sodium bicarb and 2 A of epinephrine. The patient's was updated about the critical condition at the bedside. 01/15: Patient remains critically ill on max dose of norepinephrine, vasopressin , and epinephrine. His oxygenation overnight has somehow improved with Flolan infusion, however still requiring aggressive APRV mode of ventilation. 01/16: Off all vasopressors. Oxygenation stable. Switch from AP RV to KS VC. Will attempt MRI brain due to neglect and left sided weakness exam. CT thorax with oral contrast to rule out esophageal perforation. Recheck abdomen pelvis today. Remains on fluconazole, piperacillin/tazobactam and, vancomycin infectious disease. Heparin drip discontinued secondary to acute drop in platelets. Fibrinogen pending. Haptoglobin LDH and smear pending. 01/17: Afebrile. Remains off all vasopressors. Minimal urine output overnight. Plan for hemodialysis today once platelets arrived. Minimal output from chest tubes bilaterally. FiO2 down to 40%. PEEP down to 10. 01/18: Afebrile. -3.5 L with hemodialysis today. Off all vasopressors. Will attempt sedation vacation later on this morning. FiO2 down to 40%. PEEP down to 5. 01/19: Bradycardic. Will attempt to exchange bite block today. Minimal output from chest tubes. Hemodialysis ongoing currently. 01/20: Remains bradycardic. Beta-cristian has been removed. Minimal output from chest tubes. Afebrile. Will attempt to wean ventilator using dexmedetomidine drip. Subjective 01/21: Currently on dexmedetomidine for vent weaning. Tolerating hemodialysis. More arousable. Looking around but not following commands. Positive BM. Tolerating tube feeding. 01/22: CPAP trials initiated this a.m. The patient is awake but does not follow any commands. CPAP trials continue noted chest x-ray concerning for persistent bilateral pulmonary opacities. We will obtain SBT today. 01/23: Patient currently undergoing hemodialysis plan for 4 L removal of fluid. The patient was placed on a rate last night CPAP trial was reinitiated at 6 AM. Plan to continue CPAP throughout the evening. Will attempt SBT trial today if possible. Patient tolerating tube feeds. Bilateral chest tube remain on suction minimal output. 01/24: No change in neurological status. The patient was removed from CPAP trials last evening and placed back on a rate during the night CPAP trials were reinitiated today. Patient's at bedside, provided medical status update. Chest x-ray remains unchanged .Plan for SBT reevaluation. 01/25: Afebrile. No change in neurological status. Patient has remained on CPAP throughout the night 12/07. SBT trials on 12/07 appear adequate. Patient currently on CPAP trials 07/07 with a FiO2 of 35%. Bilateral chest tubes in situ continue on suction minimal output. Day 11 of ETT plan for trial of extubation this afternoon. Today chest x-ray noted slight improvement. Objective Vital Signs / I&O: Vital Signs 01/24/18 14:00 01/24/18 14:30 01/24/18 15:00 Temperature Pulse Rate 56 L 61 59 L Respiratory Rate 17 17 17 Blood Pressure 153/79 H 155/84 H 157/84 H Pulse Oximetry 100 100 100 01/24/18 15:30 01/24/18 16:00 01/24/18 16:30 Temperature Pulse Rate 60 59 L 63 Respiratory Rate 16 17 16 Blood Pressure 157/85 H 156/83 H 158/86 H Pulse Oximetry 100 100 99 01/24/18 16:51 01/24/18 20:00 01/24/18 20:02 Temperature 98.2 F Pulse Rate 63 Respiratory Rate 16 19 17 Blood Pressure 153/81 H Pulse Oximetry 100 100 100 01/25/18 00:00 01/25/18 00:11 01/25/18 01:32 Temperature Pulse Rate 67 Respiratory Rate 19 17 18 Blood Pressure 145/78 H Pulse Oximetry 96 100 94 L 01/25/18 04:00 01/25/18 04:41 01/25/18 07:41 Temperature 98.4 F Pulse Rate 66 Respiratory Rate 19 17 18 Blood Pressure 139/75 Pulse Oximetry 96 97 100 01/25/18 11:06 01/25/18 13:04 Temperature Pulse Rate 87 Respiratory Rate 18 20 Blood Pressure Pulse Oximetry 99 Intake & Output 01/24/18 01/25/18 01/25/18 18:59 06:59 18:59 Intake Total 355 / 355 1015 / 1015 Output Total 0 / 0 3000 / 3000 Balance 355 / 355 1015 / 1015 -3000 / -3000 Weight 118 kg Intake: IV 355 / 355 355 / 355 Precedex Inj 1,000 MCG In NS 250 / 250 250 / 250 Inj 240 ML @ 0.2 MCG/KG/HR 5.85 mls/hr IV.CONT TITRATE PRN Rx# :[id number] Keppra Inj 500 MG In NS Inj 100 105 / 105 105 / 105 ML @ 400 mls/hr IV.SIG Q12H HENRY Rx#:[id number] Tube Feeding 460 / 460 Water Bolus Amount 200 / 200 Output: Urine 0 / 0 Hemodialysis Amount 3000 / 3000 Chest Tube Drainage 0 / 0 #1 Left Pleural 0 / 0 #2 Right Pleural 0 / 0 Other: Date of Last Bowel Movement 01/24/18 01/25/18 # Incontinent Bowel Movements 1 Result Diagrams: 01/25/18 13:20 01/24/18 04:00 Objective Remarks: GENERAL: 62-year-old male currently orotracheally treated with bilateral chest tubes SKIN: Warm and dry. No rash HEAD: Atraumatic. Normocephalic. EYES: Pupils equal and round. No scleral icterus. No injection or drainage. ENT: No nasal bleeding or discharge. Mucous membranes pink and moist. NECK: Trachea midline. No JVD. CARDIOVASCULAR: Regular rate and rhythm with ectopy. S1, S2. No murmur RESPIRATORY: Diminished breath sounds in the bases bilaterally. Crepitus improved subcutaneous emphysema. Bilateral pigtail chest tubes are in place at at -40 cmH2O GASTROINTESTINAL: Abdomen soft, non-tender, nondistended. Hypoactive bowel sounds appreciated. MUSCULOSKELETAL: Extremities without without significant peripheral edema. No obvious deformities. NEUROLOGICAL: On sedation vacation . spontaneously moving head side to side. Does not follow any commands. spontaneously withdraws to bilateral upper extremities. Positive gag and cough. Pupils reactive. Assessment and Plan - Assessment and Plan Plan: Neuro/Psych: Bipolar disorder History of right parietal CVA 2009 EtOH abuse Acute seizure Patient is currently on dexmedetomidine at 1mg/kg/hr sedation/analgesia while intubated Goal of RASS -[address] brain upon admission revealed right parietal region encephalomalacia. EEG 01/15 revealed no epileptic activity. Slowing MRI brain ordered revealed stable right sylvian infarct/old. No acute findings Holding home medication gabapentin 300 mg twice daily and ketamine 50 mg daily and sertraline 50 mg daily Vitamin bag daily times 3 days. Monitor for DTs Remains on levetiracetam 500 mg IV twice daily CV: Non-STEMI Elevated troponin Severe shock resolved History of essential hypertension History of hyperlipidemia Cardia Evaluated by cardiology/Dr. Gomez Started on carvedilol 3.125 mg twice daily. Holding valsartan 80 mg daily in light of acute kidney injury. Hydralazine 50 3 times daily and isosorbide dinitrate 20 3 times daily Holding atorvastatin 20 mg daily in light of acute liver injury. 2D echocardiogram revealed EF 55-60%. Mild LVH. PAP 31 mmHg. Currently normal sinus rhythm no ectopy. Initially heparin drip held due to severe thrombocytopenia Resp: Acute respiratory failure Bilateral pneumothoraces/pneumomediastinum Gastroesophageal reflux disease on pantoprazole at home KS VC. Rate of 18. Tidal volume around 550. I time 1.0. PEEP of 5. FiO2 of 40%. Albuterol/ipratropium aerosols every 4 hours albuterol every 2 hours as needed dyspnea CT thorax revealed tiny left apical pneumothorax. Bilateral chest tubes in place. Dense consolidation bilateral lower lobes 01/24 chest x-ray unchanged-persistent opacities Maintain chest tubes at -40 cmH2O. Monitor output On methylprednisolone succinate 40 mg IV every 12 hours Obtain SBT parameters, plan for trial of extubation-Day 11 GI: Elevated LFTs Pneumoperitoneum with right retroperitoneal gas/gas around the right kidney Elevated ammonia CT abdomen/pelvis revealed gas in the anterior mediastinum/right retrocrural peritoneal gas/stranding right kidney.. Repeat 01/16 revealed tiny intrarenal for note on no obvious source. In ED this case was discussed with Dr. Jimenez/on-call physician. Believe this was secondary to bilateral pneumothoraces. No surgical intervention. Check lactate and CPK now Recheck CT abdomen/pelvis now. Will likely initiate tube feeding if no signs of esophageal perforation on CT with contrast of thorax Would recommend Nepro in light of acute kidney injury currently at 60 cc an hour Pantoprazole for GI prophylaxis Docusate sodium/senna 1 tablet twice daily for bowel regimen Ultrasound tests again revealed severe hepatic steatosis likely EtOH cirrhosis/ ischemia/CPK elevation. On lactulose 30 cc twice daily : Og catheter has been placed for accurate I's and O's in a critically ill patient Endo: History of diabetes mellitus History of hypothyroidism Glimepiride 2 mg twice daily is currently on hold. Sliding scale insulin regular insulin to maintain euglycemia Continue levothyroxine 88 mcg daily. TSH was 0.611 Renal: Acute kidney injury Rhabdomyolysis-resolved Currently on hemodialysis Nephrology following Renal ultrasound prophylaxis. Urine eosinophils negative No hydronephrosis. Avoid nephrotoxic medication Heme: Normocytic anemia Acute thrombocytopenia Persistent leukocytosis Unlikely hit secondary to timeframe. Elevated haptoglobin/LDH and peripheral smear no signs of mellitus We will discontinue heparin drip in light of significant thrombocytopenia. Aspirin on hold. Discussed leukocytosis with infectious disease felt to be a leukemoid reaction we will continue to trend ID: Discontinued piperacillin/tazobactam, vancomycin per infectious disease. Blood cultures no growth to date Fluconazole discontinued 01/17 ID following FEN: Hypopotassemia Replace electrolytes as clinically indicated. MSK: Elevated BMI Physical therapy evaluate and treat Weight loss encouraged Access -Right subclavian CVL placed 01/14. Discontinued 01/21 -Right brachial arterial line day #8 placed 01/15 Prophylaxis -GI-pantoprazole -DVT-SCD/heparin SC Level 3 follow-up
[2018-01-25 14:13] LABS: Calcium 8.2 mg/dL (8.5-10.1); Carbon Dioxide 26.9 meq/L (21.0-32.0); Magnesium 2.1 mg/dL (1.5-2.5); Phosphorus 4.2 mg/dL (2.5-4.9); Potassium 3.6 meq/L (3.5-5.1)
[2018-01-25 14:14] LABS: Lymphocytes 2 % (9-44); Metamyelocytes 1 % (0-1); Monocytes 2 % (0-8)
[2018-01-25 14:15] LABS: Platelet Estimate Normal (Normal); Platelet Morphology Normal (Normal); Toxic Granulation 2+
[2018-01-25] MEDS: Labetalol HCl Inj 100 MG/20 ML Vial IV.PUSH PRN (15:41)
[2018-01-26] MEDS: Insulin NovoLIN Regular Correctional Sugar Inj SQ SCH ×5 (00:24→23:26)
[2018-01-26] MEDS: Oral Hygiene Kit OROPHARYNG SCH ×6 (00:24→23:23)
[2018-01-26] MEDS: Artificial Tears Opth Drops 15 ML Bottle EACH EYE SCH ×4 (00:24→23:23)
[2018-01-26] MEDS: Pantoprazole Inj 40 MG Vial IV.PUSH SCH ×2 (02:27→13:30)
[2018-01-26] MEDS: Labetalol HCl Inj 100 MG/20 ML Vial IV.PUSH PRN ×3 (02:33→21:00)
[2018-01-26 04:31] LABS: Baso % (Auto) 0.1 % (0.0-2.0); Hematocrit 27.4 % (39.0-51.0); Hemoglobin 9.2 gm/dL (13.0-17.0); Lymph # (Auto) 0.3 th/mm3 (1.0-4.8); Lymph % (Auto) 1.6 % (9.0-44.0); Mean Corpuscular HGB Conc 33.4 % (32.0-36.0); Mean Corpuscular Hemoglobin 30.7 pg (27.0-34.0); Mean Corpuscular Volume 91.8 fL (80.0-100.0); Mean Platelet Volume 9.1 fL (7.0-11.0); Mono # (Auto) 0.5 th/mm3 (0.0-0.9); Mono % (Auto) 2.6 % (0.0-8.0); Neut # (Auto) 19.2 th/mm3 (1.8-7.7); Neut % (Auto) 95.7 % (16.0-70.0); Platelet Count 253 th/mm3 (150-450); Red Blood Count 2.98 mil/mm3 (4.50-5.90); Red Cell Distribution Width 16.1 % (11.6-17.2); White Blood Count 20.1 th/mm3 (4.0-11.0)
--- NOTE | 2018-01-26 04:35 | XR ---
EXAM DATE: 01/26/2018 4:05 AM EST AGE/SEX: 62 years / Male INDICATIONS: Shortness of breath, possible pulmonary disease. CLINICAL DATA: This is the patient's subsequent encounter. Patient reports that signs and symptoms h ave been present for 1 week and indicates a pain score of Nonresponsive. MEDICAL/SURGICAL HISTORY: Stroke. Hypertension. Diabetes mellitus type II. Seizures. Chest tube, left. COMPARISON: [facility] [place], CHEST 1V SINGLE AP, 01/25/2018. . FINDINGS: Previous endotracheal tube has been removed. NG tube and left central line present. Mild basilar airs pace disease. Cardiomegaly. No significant effusion. No pneumothorax. CONCLUSION: Mild basilar airspace disease similar to prior examination. Nasogastric tube and left central line in satisfactory position. Electronically signed by: Jae Moya MD 01/26/2018 4:33 AM EST
[2018-01-26 05:03] LABS: Albumin 2.9 g/dL (3.4-5.0); Calcium 7.8 mg/dL (8.5-10.1); Magnesium 2.3 mg/dL (1.5-2.5); Phosphorus 5.8 mg/dL (2.5-4.9); Potassium 3.8 meq/L (3.5-5.1)
[2018-01-26] MEDS: Levothyroxine 88 MCG Tablet PO SCH (05:08)
[2018-01-26] MEDS: Heparin - SQ 10,000 UNITS/ML Vial SQ SCH ×3 (05:08→22:02)
[2018-01-26] MEDS: hydrALAZINE HCl Inj 20 MG/ML Vial IV.PUSH PRN ×3 (07:17→23:23)
[2018-01-26 07:58] LABS: Lymphocytes 1 % (9-44); Metamyelocytes 2 % (0-1); Monocytes 2 % (0-8); Myelocytes 1 % (0-0); Promyelocyte 1 % (0-0)
[2018-01-26 08:00] LABS: Hypersegmented Neutrophils 1+; Platelet Estimate Normal (Normal); Platelet Morphology Normal (Normal); Toxic Granulation 1+
[2018-01-26] MEDS: Chlorhexidine 0.12% Oral Kit 15 ML UDC OROPHARYNG SCH ×2 (08:54→22:02)
[2018-01-26] MEDS: hydrALAZINE 25 MG Tablet PO SCH ×3 (08:56→18:09)
[2018-01-26] MEDS: Carvedilol 6.25 MG Tablet PO SCH ×2 (08:57→22:02)
[2018-01-26] MEDS: Folic Acid 1 MG Tablet PO SCH (08:57)
[2018-01-26] MEDS: Senna/Docusate Sodium 8.6/50 MG Tablet PO SCH ×2 (08:58→22:02)
[2018-01-26] MEDS: MethylPREDNISolone Sod Succinate Inj 40 MG/ML Vial IV.PUSH SCH ×2 (08:58→22:02)
[2018-01-26] MEDS: Morphine Sulfate Inj 2 MG/ML Vial IV.PUSH PRN (10:01)
[2018-01-26] MEDS: Heparin 10,000 UNITS/10 ML Vial (for IV use) OTHER PRN (15:19)
--- NOTE | 2018-01-26 16:08 | P.PNCC ---
Subjective Subjective Remarks/Hospital Course: 62-year-old male patient presents because he was found down by family, on evaluation by EMS he had notable seizures, and they had tried Versed without success, he was vomiting dark material. They tried to intubate him for airway protection, but were unable to intubate him. However, the seizures had stopped at that point. He was obtunded in the ER and was intubated by ED attending. Shortly after intubation patient lost his pulses and CPR was initiated. He has regained spontaneous circulation after 2 cycles of CPR and injections of epinephrine. There was significant subcutaneous emphysema noticed and the patient was rushed to CT for the CT of the head chest and abdomen that showed large bilateral pneumothoraces, as well as free air in peritoneal cavity. Bilateral chest tubes were placed immediately in the emergency department. The free air in the peritoneum with was discussed with the surgeon irrigation equipment remover Dr. Jimenez. It was felt the air in abdominal cavity is more likely leak from the chest cavity from bilateral tension pneumothoraces and observation without emergent surgical intervention was recommended. The patient was transferred to ICU where he suffered another cardiac arrest. He has regained again spontaneous circulation post 2 cycles of CPR, 2 A of sodium bicarb and 2 A of epinephrine. The patient's was updated about the critical condition at the bedside. 01/15: Patient remains critically ill on max dose of norepinephrine, vasopressin , and epinephrine. His oxygenation overnight has somehow improved with Flolan infusion, however still requiring aggressive APRV mode of ventilation. 01/16: Off all vasopressors. Oxygenation stable. Switch from AP RV to IA VC. Will attempt MRI brain due to neglect and left sided weakness exam. CT thorax with oral contrast to rule out esophageal perforation. Recheck abdomen pelvis today. Remains on fluconazole, piperacillin/tazobactam and, vancomycin infectious disease. Heparin drip discontinued secondary to acute drop in platelets. Fibrinogen pending. Haptoglobin LDH and smear pending. 01/17: Afebrile. Remains off all vasopressors. Minimal urine output overnight. Plan for hemodialysis today once platelets arrived. Minimal output from chest tubes bilaterally. FiO2 down to 40%. PEEP down to 10. 01/18: Afebrile. -3.5 L with hemodialysis today. Off all vasopressors. Will attempt sedation vacation later on this morning. FiO2 down to 40%. PEEP down to 5. 01/19: Bradycardic. Will attempt to exchange bite block today. Minimal output from chest tubes. Hemodialysis ongoing currently. 01/20: Remains bradycardic. Beta-cristian has been removed. Minimal output from chest tubes. Afebrile. Will attempt to wean ventilator using dexmedetomidine drip. Subjective 01/21: Currently on dexmedetomidine for vent weaning. Tolerating hemodialysis. More arousable. Looking around but not following commands. Positive BM. Tolerating tube feeding. 01/22: CPAP trials initiated this a.m. The patient is awake but does not follow any commands. CPAP trials continue noted chest x-ray concerning for persistent bilateral pulmonary opacities. We will obtain SBT today. 01/23: Patient currently undergoing hemodialysis plan for 4 L removal of fluid. The patient was placed on a rate last night CPAP trial was reinitiated at 6 AM. Plan to continue CPAP throughout the evening. Will attempt SBT trial today if possible. Patient tolerating tube feeds. Bilateral chest tube remain on suction minimal output. 01/24: No change in neurological status. The patient was removed from CPAP trials last evening and placed back on a rate during the night CPAP trials were reinitiated today. Patient's at bedside, provided medical status update. Chest x-ray remains unchanged .Plan for SBT reevaluation. 01/25: Afebrile. No change in neurological status. Patient has remained on CPAP throughout the night 12/07. SBT trials on 12/07 appear adequate. Patient currently on CPAP trials 07/07 with a FiO2 of 35%. Bilateral chest tubes in situ continue on suction minimal output. Day 11 of ETT plan for trial of extubation this afternoon. Today chest x-ray noted slight improvement. 01/26: The patient was successfully extubated yesterday no change in neurological status. Formal swallow study pending. The patient remains with NG tube infusing Nepro no residuals per persistent leukocytosis noted. Bilateral chest tubes remain at 40 cm wall suction, minimal output. Objective Vital Signs / I&O: Vital Signs 01/25/18 16:30 01/25/18 17:00 01/25/18 17:30 Temperature Pulse Rate 105 H 111 H 115 H Respiratory Rate 20 22 20 Blood Pressure 150/89 H 146/85 H 153/96 H Pulse Oximetry 97 98 95 01/25/18 18:00 01/25/18 18:30 01/25/18 19:00 Temperature Pulse Rate 112 H 112 H 110 H Respiratory Rate 25 H 26 H 27 H Blood Pressure 167/96 H 181/90 H 179/95 H Pulse Oximetry 98 94 L 95 01/25/18 19:30 01/25/18 20:00 01/25/18 20:30 Temperature 99.7 F H Pulse Rate 111 H 72 113 H Respiratory Rate 25 H 26 H 27 H Blood Pressure 157/95 H 169/96 H 172/94 H Pulse Oximetry 95 95 96 01/25/18 21:00 01/25/18 21:30 01/25/18 22:00 Temperature Pulse Rate 115 H 115 H 117 H Respiratory Rate 27 H 25 H 23 Blood Pressure 167/94 H 183/106 H 158/86 H Pulse Oximetry 96 97 100 01/25/18 22:22 01/25/18 23:00 01/25/18 23:56 Temperature Pulse Rate 104 H 97 H Respiratory Rate 23 22 Blood Pressure 160/90 H 166/84 H Pulse Oximetry 100 100 97 01/26/18 00:00 01/26/18 00:41 01/26/18 01:00 Temperature 99.3 F Pulse Rate 96 H 96 H Respiratory Rate 22 23 Blood Pressure 160/79 H 161/86 H Pulse Oximetry 98 98 99 01/26/18 02:00 01/26/18 02:21 01/26/18 02:40 Temperature Pulse Rate 100 H 80 Respiratory Rate 24 23 Blood Pressure 194/107 H 149/86 H Pulse Oximetry 100 100 98 01/26/18 03:00 01/26/18 04:00 01/26/18 04:03 Temperature 98.8 F Pulse Rate 79 82 Respiratory Rate 21 19 Blood Pressure 177/99 H 163/80 H Pulse Oximetry 100 100 98 01/26/18 05:00 01/26/18 05:01 01/26/18 06:00 Temperature Pulse Rate 86 86 88 Respiratory Rate 18 21 22 Blood Pressure 182/94 H 162/83 H Pulse Oximetry 100 100 100 01/26/18 07:00 01/26/18 07:01 01/26/18 07:46 Temperature Pulse Rate 86 86 92 H Respiratory Rate 21 20 21 Blood Pressure 189/99 H 177/87 H Pulse Oximetry 100 100 100 01/26/18 08:00 01/26/18 08:25 01/26/18 09:00 Temperature 98.8 F Pulse Rate 92 H 93 H Respiratory Rate 22 21 Blood Pressure 176/90 H 190/97 H Pulse Oximetry 100 100 100 01/26/18 09:01 01/26/18 09:35 01/26/18 10:00 Temperature Pulse Rate 92 H 88 86 Respiratory Rate 22 18 22 Blood Pressure 189/99 H 178/94 H 184/99 H Pulse Oximetry 100 100 100 01/26/18 10:11 01/26/18 10:14 01/26/18 10:21 Temperature Pulse Rate 85 84 84 Respiratory Rate 22 22 21 Blood Pressure 182/101 H 181/98 H 183/98 H Pulse Oximetry 100 100 100 01/26/18 10:43 01/26/18 11:00 01/26/18 11:01 Temperature Pulse Rate 85 84 84 Respiratory Rate 21 21 21 Blood Pressure 173/90 H 165/88 H Pulse Oximetry 100 100 100 01/26/18 12:00 01/26/18 13:00 01/26/18 14:00 Temperature 98.6 F Pulse Rate 85 92 H 98 H Respiratory Rate 21 20 22 Blood Pressure 152/82 H 149/74 H 149/77 H Pulse Oximetry 100 95 97 Intake & Output 01/25/18 01/26/18 01/26/18 18:59 06:59 18:59 Intake Total 749 / 749 1228 / 1228 105 / 105 Output Total 6320 / 6320 730 / 730 Balance -5571 / -5571 498 / 498 105 / 105 Weight 117.6 kg Intake: IV 405 / 405 1105 / 1105 105 / 105 Precedex Inj 1,000 MCG In NS 200 / 200 Inj 240 ML @ 0.2 MCG/KG/HR 5.85 mls/hr IV.CONT TITRATE PRN Rx# :[id number] Flexbumin 25% Inj 100 ML @ 60 100 / 100 mls/hr IV.SIG WITH DIALYSIS PRN Rx#:[id number] Keppra Inj 500 MG In NS Inj 100 105 / 105 105 / 105 105 / 105 ML @ 400 mls/hr IV.SIG Q12H HENRY Rx#:[id number] NS Inj 1,000 ML @ As Directed 1000 / 1000 OTHER .Q0M PRN Rx#:[id number] Tube Feeding 144 / 144 123 / 123 Tube Irrigant 200 / 200 Output: Urine 0 / 0 Stool 300 / 300 700 / 700 Hemodialysis Amount 6000 / 6000 Chest Tube Drainage #1 Left Pleural 0 / 0 #2 Right Pleural Other: # Incontinent Voids 1 Date of Last Bowel Movement 01/25/18 01/25/18 01/26/18 Result Diagrams: 01/26/18 04:00 01/26/18 04:00 Objective Remarks: GENERAL: 62-year-old obese male currently on nasal cannula, intermittent spontaneous eye opening SKIN: Warm and dry. No rash HEAD: Atraumatic. Normocephalic. EYES: Pupils equal and round. No scleral icterus. No injection or drainage. ENT: No nasal bleeding or discharge. Mucous membranes pink and moist. NECK: Trachea midline. No JVD. CARDIOVASCULAR: Regular rate and rhythm with ectopy. S1, S2. No murmur RESPIRATORY: Diminished breath sounds in the bases bilaterally, clear to auscultation.Bilateral pigtail chest tubes are in place at at -40 cmH2O GASTROINTESTINAL: Abdomen soft, non-tender, nondistended. Hypoactive bowel sounds appreciated. MUSCULOSKELETAL: Extremities with 2+ peripheral edema. No obvious deformities. NEUROLOGICAL: On sedation vacation . spontaneously moving head side to side. Does not follow any commands. spontaneously withdraws to bilateral upper extremities. Positive gag and cough. Pupils reactive. Assessment and Plan - Assessment and Plan Plan: Neuro/Psych: Bipolar disorder History of right parietal CVA 2009 EtOH abuse Acute seizure Neuro checks per ICU protocol CT brain upon admission revealed right parietal region encephalomalacia. EEG 01/15 revealed no epileptic activity. Slowing MRI brain ordered revealed stable right sylvian infarct/old. No acute findings Holding home medication gabapentin 300 mg twice daily and ketamine 50 mg daily and sertraline 50 mg daily Vitamin bag daily times 3 days. Monitor for DTs Remains on levetiracetam 500 mg IV twice daily CV: Non-STEMI Elevated troponin Severe shock resolved History of essential hypertension History of hyperlipidemia Cardia Evaluated by cardiology/Dr. Gomez Started on carvedilol 3.125 mg twice daily. Holding valsartan 80 mg daily in light of acute kidney injury. Hydralazine 50 3 times daily and isosorbide dinitrate 20 3 times daily Holding atorvastatin 20 mg daily in light of acute liver injury. 2D echocardiogram revealed EF 55-60%. Mild LVH. PAP 31 mmHg. Currently normal sinus rhythm no ectopy. Initially heparin drip held due to severe thrombocytopenia Resp: Acute respiratory failure Bilateral pneumothoraces/pneumomediastinum Gastroesophageal reflux disease on pantoprazole at home IA VC. Rate of 18. Tidal volume around 550. I time 1.0. PEEP of 5. FiO2 of 40%. Albuterol/ipratropium aerosols every 4 hours albuterol every 2 hours as needed dyspnea CT thorax revealed tiny left apical pneumothorax. Bilateral chest tubes in place. Dense consolidation bilateral lower lobes 01/24 chest x-ray unchanged-persistent opacities Maintain chest tubes at -40 cmH2O. Monitor output On methylprednisolone succinate 40 mg IV every 12 hours Extubated 01/25 Utilize CPAP at night GI: Elevated LFTs Pneumoperitoneum with right retroperitoneal gas/gas around the right kidney Elevated ammonia-resolved CT abdomen/pelvis revealed gas in the anterior mediastinum/right retrocrural peritoneal gas/stranding right kidney.. Repeat 01/16 revealed tiny intrarenal for note on no obvious source. In ED this case was discussed with Dr. Jimenez/on-call physician. Believe this was secondary to bilateral pneumothoraces. No surgical intervention. Check lactate and CPK now Obtain formal swallow study Would recommend Nepro in light of acute kidney injury currently at 60 cc an hour Pantoprazole for GI prophylaxis Docusate sodium/senna 1 tablet twice daily for bowel regimen Ultrasound tests again revealed severe hepatic steatosis likely EtOH cirrhosis/ ischemia/CPK elevation. On lactulose 30 cc twice daily : Og catheter has been placed for accurate I's and O's in a critically ill patient Endo: History of diabetes mellitus History of hypothyroidism Glimepiride 2 mg twice daily is currently on hold. Sliding scale insulin regular insulin to maintain euglycemia Continue levothyroxine 88 mcg daily. TSH was 0.611 Renal: Acute kidney injury Rhabdomyolysis-resolved Currently on hemodialysis Nephrology following Renal ultrasound prophylaxis. Urine eosinophils negative No hydronephrosis. Avoid nephrotoxic medication Heme: Normocytic anemia Acute thrombocytopenia Persistent leukocytosis Unlikely hit secondary to timeframe. Elevated haptoglobin/LDH and peripheral smear no signs of mellitus We will discontinue heparin drip in light of significant thrombocytopenia. Aspirin on hold. Discussed leukocytosis with infectious disease felt to be a leukemoid reaction we will continue to trend ID: Discontinued piperacillin/tazobactam, vancomycin per infectious disease. Blood cultures no growth to date Fluconazole discontinued 01/17 ID following FEN: Hypopotassemia Replace electrolytes as clinically indicated. MSK: Elevated BMI Physical therapy evaluate and treat Weight loss encouraged Access -Right subclavian CVL placed 01/14. Discontinued 01/21 -Right brachial arterial line day #8 placed 01/15 Prophylaxis -GI-pantoprazole -DVT-SCD/heparin SC Level 2 [facility] Condition With: SAW GRINDER at bedside.
--- NOTE | 2018-01-26 16:09 | P.PNNP ---
Subjective Interval history: Patient extubated, awake but nonverbal. Physical Exam Vital signs: Vital Signs 01/25/18 16:30 01/25/18 17:00 01/25/18 17:30 Temperature Pulse Rate 105 H 111 H 115 H Respiratory Rate 20 22 20 Blood Pressure 150/89 H 146/85 H 153/96 H Pulse Oximetry 97 98 95 01/25/18 18:00 01/25/18 18:30 01/25/18 19:00 Temperature Pulse Rate 112 H 112 H 110 H Respiratory Rate 25 H 26 H 27 H Blood Pressure 167/96 H 181/90 H 179/95 H Pulse Oximetry 98 94 L 95 01/25/18 19:30 01/25/18 20:00 01/25/18 20:30 Temperature 99.7 F H Pulse Rate 111 H 72 113 H Respiratory Rate 25 H 26 H 27 H Blood Pressure 157/95 H 169/96 H 172/94 H Pulse Oximetry 95 95 96 01/25/18 21:00 01/25/18 21:30 01/25/18 22:00 Temperature Pulse Rate 115 H 115 H 117 H Respiratory Rate 27 H 25 H 23 Blood Pressure 167/94 H 183/106 H 158/86 H Pulse Oximetry 96 97 100 01/25/18 22:22 01/25/18 23:00 01/25/18 23:56 Temperature Pulse Rate 104 H 97 H Respiratory Rate 23 22 Blood Pressure 160/90 H 166/84 H Pulse Oximetry 100 100 97 01/26/18 00:00 01/26/18 00:41 01/26/18 01:00 Temperature 99.3 F Pulse Rate 96 H 96 H Respiratory Rate 22 23 Blood Pressure 160/79 H 161/86 H Pulse Oximetry 98 98 99 01/26/18 02:00 01/26/18 02:21 01/26/18 02:40 Temperature Pulse Rate 100 H 80 Respiratory Rate 24 23 Blood Pressure 194/107 H 149/86 H Pulse Oximetry 100 100 98 01/26/18 03:00 01/26/18 04:00 01/26/18 04:03 Temperature 98.8 F Pulse Rate 79 82 Respiratory Rate 21 19 Blood Pressure 177/99 H 163/80 H Pulse Oximetry 100 100 98 01/26/18 05:00 01/26/18 05:01 01/26/18 06:00 Temperature Pulse Rate 86 86 88 Respiratory Rate 18 21 22 Blood Pressure 182/94 H 162/83 H Pulse Oximetry 100 100 100 01/26/18 07:00 01/26/18 07:01 01/26/18 07:46 Temperature Pulse Rate 86 86 92 H Respiratory Rate 21 20 21 Blood Pressure 189/99 H 177/87 H Pulse Oximetry 100 100 100 01/26/18 08:00 01/26/18 08:25 01/26/18 09:00 Temperature 98.8 F Pulse Rate 92 H 93 H Respiratory Rate 22 21 Blood Pressure 176/90 H 190/97 H Pulse Oximetry 100 100 100 01/26/18 09:01 01/26/18 09:35 01/26/18 10:00 Temperature Pulse Rate 92 H 88 86 Respiratory Rate 22 18 22 Blood Pressure 189/99 H 178/94 H 184/99 H Pulse Oximetry 100 100 100 01/26/18 10:11 01/26/18 10:14 01/26/18 10:21 Temperature Pulse Rate 85 84 84 Respiratory Rate 22 22 21 Blood Pressure 182/101 H 181/98 H 183/98 H Pulse Oximetry 100 100 100 01/26/18 10:43 01/26/18 11:00 01/26/18 11:01 Temperature Pulse Rate 85 84 84 Respiratory Rate 21 21 21 Blood Pressure 173/90 H 165/88 H Pulse Oximetry 100 100 100 01/26/18 12:00 01/26/18 13:00 01/26/18 14:00 Temperature 98.6 F Pulse Rate 85 92 H 98 H Respiratory Rate 21 20 22 Blood Pressure 152/82 H 149/74 H 149/77 H Pulse Oximetry 100 95 97 Intake & Output 01/25/18 01/26/18 01/26/18 18:59 06:59 18:59 Intake Total 749 / 749 1228 / 1228 105 / 105 Output Total 6320 / 6320 730 / 730 Balance -5571 / -5571 498 / 498 105 / 105 Weight 117.6 kg Intake: IV 405 / 405 1105 / 1105 105 / 105 Precedex Inj 1,000 MCG In NS 200 / 200 Inj 240 ML @ 0.2 MCG/KG/HR 5.85 mls/hr IV.CONT TITRATE PRN Rx# :[id number] Flexbumin 25% Inj 100 ML @ 60 100 / 100 mls/hr IV.SIG WITH DIALYSIS PRN Rx#:[id number] Keppra Inj 500 MG In NS Inj 100 105 / 105 105 / 105 105 / 105 ML @ 400 mls/hr IV.SIG Q12H HENRY Rx#:[id number] NS Inj 1,000 ML @ As Directed 1000 / 1000 OTHER .Q0M PRN Rx#:[id number] Tube Feeding 144 / 144 123 / 123 Tube Irrigant 200 / 200 Output: Urine 0 / 0 Stool 300 / 300 700 / 700 Hemodialysis Amount 6000 / 6000 Chest Tube Drainage #1 Left Pleural 0 / 0 #2 Right Pleural Other: # Incontinent Voids 1 Date of Last Bowel Movement 01/25/18 01/25/18 01/26/18 Narrative: GENERAL: Obese male lying in bed SKIN: Warm and dry. HEAD: Normocephalic. Periorbital edema. EYES: No scleral icterus. No injection or drainage. NECK: Supple, trachea midline. No JVD . CARDIOVASCULAR: Regular rate and rhythm without murmurs, gallops, or rubs. RESPIRATORY: Breath sounds equal bilaterally. No accessory muscle use. GASTROINTESTINAL: Abdomen soft, non-tender, distended but not tender. MUSCULOSKELETAL: No cyanosis, 1+ edema of the limbs. - Urinary Catheter Management Indwelling Temp Sensing Catheter Cath placed during this visit: yes, but has since been removed by the nurse Reason for continuing: Decision to DC catheter Insertion date: 01/14/18 Insertion time: 22:00 Removal date: 01/21/18 Removal time: 18:00 Straight Cath placed during this visit: no Assessment and Plan - Assessment (1) Acute renal failure Code(s): N17.9 - Acute kidney failure, unspecified Status: Acute Plan: Pt seen during HD today. Next hemodialysis tentatively Sunday has no improvement noted in renal function. Given history of alcohol abuse, sepsis, rhabdomyolysis, respiratory insufficiency and hepatic dysfunction he remains critically ill with guarded prognosis. Medications should be adjusted for the patient's estimated GFR if clinically indicated. Avoid agents with significant potential for nephrotoxicity possible including NSAIDs for analgesia, iodine contrast agents. Gadolinium is contraindicated if the GFR is below 30. (2) Alcohol abuse Code(s): F10.10 - Alcohol abuse, uncomplicated Status: Acute (3) Alcohol withdrawal seizure with complication Code(s): F10.239 - Alcohol dependence with withdrawal, unspecified; R56.9 - Unspecified convulsions Status: Acute (4) Rhabdomyolysis Code(s): M62.82 - Rhabdomyolysis Status: Acute Plan: Related to previous seizure.
[2018-01-26] MEDS: Albumin Human 25% Inj 100 ML IV.SIG PRN ×2 (16:42→16:47)
[2018-01-27] MEDS: hydrALAZINE HCl Inj 20 MG/ML Vial IV.PUSH PRN (00:30)
[2018-01-27] MEDS: Pantoprazole Inj 40 MG Vial IV.PUSH SCH ×2 (01:14→14:18)
[2018-01-27] MEDS: Labetalol HCl Inj 100 MG/20 ML Vial IV.PUSH PRN (01:22)
[2018-01-27] MEDS ORDERED: amLODIPine 10 MG Tablet PO ONE (01:51)
[2018-01-27] MEDS: hydrALAZINE 25 MG Tablet PO SCH ×4 (02:12→22:07)
[2018-01-27] MEDS: niCARdipine Inj 25 MG in Sodium Chlor 0.9% Inj 240 ML IV.CONT PRN ×4 (02:59→22:09)
[2018-01-27] MEDS: Oral Hygiene Kit OROPHARYNG SCH ×3 (03:53→16:44)
--- NOTE | 2018-01-27 04:37 | XR ---
EXAM DATE: 01/27/2018 4:23 AM EST AGE/SEX: 62 years / Male INDICATIONS: Shortness of breath, possible pulmonary disease. CLINICAL DATA: This is the patient's subsequent encounter. Patient reports that signs and symptoms h ave been present for 2 weeks and indicates a pain score of Nonresponsive. MEDICAL/SURGICAL HISTORY: Stroke. Hypertension. Diabetes mellitus type II. Seizures. Chest tube, left. COMPARISON: [facility] [place], CHEST 1V SINGLE AP, 01/26/2018. . FINDINGS: Left central line in superior vena cava. NG enters stomach. Bilateral mostly basilar airspace disease similar to January 26. No significant effusion. No pneumothorax. CONCLUSION: NG tube and left central line unchanged. Basilar airspace disease similar to prior exam. Electronically signed by: Jae Moya MD 01/27/2018 4:36 AM EST
[2018-01-27] MEDS: Heparin - SQ 10,000 UNITS/ML Vial SQ SCH ×3 (05:17→22:07)
[2018-01-27] MEDS: Insulin NovoLIN Regular Correctional Sugar Inj SQ SCH ×3 (05:18→18:41)
[2018-01-27] MEDS: Levothyroxine 88 MCG Tablet PO SCH (05:18)
[2018-01-27 06:11] LABS: Magnesium 2.4 mg/dL (1.5-2.5); Phosphorus 5.2 mg/dL (2.5-4.9)
[2018-01-27 06:13] LABS: Baso % (Auto) 0.2 % (0.0-2.0); Hematocrit 26.8 % (39.0-51.0); Lymph # (Auto) 0.2 th/mm3 (1.0-4.8); Lymph % (Auto) 1.3 % (9.0-44.0); Mean Corpuscular HGB Conc 33.7 % (32.0-36.0); Mean Corpuscular Hemoglobin 31.5 pg (27.0-34.0); Mean Corpuscular Volume 93.5 fL (80.0-100.0); Mean Platelet Volume 9.5 fL (7.0-11.0); Mono # (Auto) 0.7 th/mm3 (0.0-0.9); Mono % (Auto) 4.3 % (0.0-8.0); Neut # (Auto) 16.1 th/mm3 (1.8-7.7); Neut % (Auto) 94.2 % (16.0-70.0); Platelet Count 249 th/mm3 (150-450); Red Blood Count 2.86 mil/mm3 (4.50-5.90); Red Cell Distribution Width 16.7 % (11.6-17.2); White Blood Count 17.1 th/mm3 (4.0-11.0)
[2018-01-27] MEDS: Carvedilol 6.25 MG Tablet PO SCH ×2 (09:00→22:06)
[2018-01-27] MEDS: Folic Acid 1 MG Tablet PO SCH (09:00)
[2018-01-27] MEDS: MethylPREDNISolone Sod Succinate Inj 40 MG/ML Vial IV.PUSH SCH ×2 (09:00→22:07)
[2018-01-27] MEDS: Artificial Tears Opth Drops 15 ML Bottle EACH EYE SCH ×2 (09:00→16:45)
[2018-01-27] MEDS: Chlorhexidine 0.12% Oral Kit 15 ML UDC OROPHARYNG SCH ×2 (09:00→22:06)
[2018-01-27] MEDS: Senna/Docusate Sodium 8.6/50 MG Tablet PO SCH ×2 (09:00→22:07)
[2018-01-27 09:57] LABS: Lymphocytes 2 % (9-44); Metamyelocytes 1 % (0-1); Monocytes 3 % (0-8); Myelocytes 1 % (0-0); Platelet Estimate Normal (Normal); Platelet Morphology Normal (Normal); Promyelocyte 1 % (0-0); Toxic Granulation 1+
--- NOTE | 2018-01-27 12:42 | P.PN ---
Subjective Interval history: Follow-up for cardiac arrest, cardiogenic shock, renal failure, acute neurological deficits. Nursing denies any acute changes overnight. Nursing still maintains that the patient is partially understanding words, unable to respond to motor commands with the left side of his body. He is on a low rate of Cardene drip at this time for hypertension. When I try to communicate with the patient he nods yes and no, maintains good eye contact Physical Exam Vital signs: Vital Signs 01/26/18 13:00 01/26/18 14:00 01/26/18 15:00 Temperature Pulse Rate 92 H 98 H 104 H Respiratory Rate 20 22 22 Blood Pressure 149/74 H 149/77 H 149/86 H Pulse Oximetry 95 97 99 01/26/18 16:00 01/26/18 17:00 01/26/18 18:00 Temperature 99.4 F Pulse Rate 108 H 104 H 104 H Respiratory Rate 22 22 22 Blood Pressure 137/82 127/73 136/74 Pulse Oximetry 97 98 96 01/26/18 19:00 01/26/18 19:01 01/26/18 19:29 Temperature Pulse Rate 101 H 101 H Respiratory Rate 25 H 23 Blood Pressure 158/83 H Pulse Oximetry 99 98 97 01/26/18 20:00 01/26/18 21:00 01/26/18 22:00 Temperature 99.2 F Pulse Rate 100 H 101 H 97 H Respiratory Rate 27 H 29 H 30 H Blood Pressure 154/79 H 161/86 H Pulse Oximetry 97 97 96 01/26/18 22:01 01/26/18 22:52 01/26/18 23:00 Temperature Pulse Rate 97 H 86 Respiratory Rate 28 H 24 Blood Pressure 159/76 H 159/88 H Pulse Oximetry 96 99 98 01/27/18 00:00 01/27/18 00:01 01/27/18 01:00 Temperature 99.2 F Pulse Rate 86 85 87 Respiratory Rate 22 22 20 Blood Pressure 159/79 H 159/79 H 170/83 H Pulse Oximetry 100 100 99 01/27/18 02:00 01/27/18 02:45 01/27/18 03:00 Temperature Pulse Rate 85 95 H 88 Respiratory Rate 20 20 20 Blood Pressure 187/91 H 178/87 H 158/76 H Pulse Oximetry 97 99 96 01/27/18 04:00 01/27/18 04:26 01/27/18 05:00 Temperature 99.0 F Pulse Rate 102 H 104 H Respiratory Rate 21 22 Blood Pressure 133/67 133/68 Pulse Oximetry 98 99 99 01/27/18 05:13 01/27/18 06:00 01/27/18 07:00 Temperature Pulse Rate 102 H 99 H 101 H Respiratory Rate 16 21 21 Blood Pressure 112/57 L 123/71 141/75 H Pulse Oximetry 97 98 99 01/27/18 08:00 01/27/18 09:00 01/27/18 10:00 Temperature Pulse Rate 100 H 100 H 93 H Respiratory Rate 20 20 22 Blood Pressure 140/71 142/72 H 137/69 Pulse Oximetry 100 99 98 Intake & Output 01/26/18 01/27/18 01/27/18 18:59 06:59 18:59 Intake Total 1005 / 1005 781 / 781 250 / 250 Output Total 3954 / 3954 600 / 600 Balance -2949 / -2949 181 / 181 250 / 250 Weight 111.5 kg Intake: IV 305 / 305 105 / 105 250 / 250 Cardene Inj 25 MG In NS Inj 240 250 / 250 ML @ 5 MG/HR 50 mls/hr IV.CONT TITRATE PRN Rx#:[id number] Flexbumin 25% Inj 100 ML @ 60 200 / 200 mls/hr IV.SIG WITH DIALYSIS PRN Rx#:[id number] Keppra Inj 500 MG In NS Inj 100 105 / 105 105 / 105 ML @ 400 mls/hr IV.SIG Q12H HENRY Rx#:[id number] Tube Feeding 580 / 580 676 / 676 Tube Irrigant 120 / 120 Output: Urine 0 / 0 0 / 0 Stool 450 / 450 600 / 600 Hemodialysis Amount 3500 / 3500 Chest Tube Drainage 4 / 4 #1 Left Pleural 4 / 4 #2 Right Pleural 0 / 0 Other: Date of Last Bowel Movement 01/26/18 01/26/18 01/26/18 Narrative: Breath sounds are coarse bilaterally, unlabored breathing Heart sounds are muffled Mild to moderate lower extremity edema When I try to communicate with the patient he nods yes and no, maintains good eye contact, tries to mouth words but unable to vocalize any audible sensible communication Tracks his eyes well across the midline Peoples equal round and reactive to light Able to squeeze my hand with his right fist, no movement appreciated on the left Patient has mild plantar reflexes pinprick Unable to demonstrate any motions of bilateral lower extremities Does maintain motion of his neck, rotated left and right and tracks me across the bed No facial droop, able to partially protrude his tongue upon prompting - Urinary Catheter Management Indwelling Temp Sensing Catheter Cath placed during this visit: yes, but has since been removed by the nurse Reason for continuing: Decision to DC catheter Insertion date: 01/14/18 Insertion time: 22:00 Removal date: 01/21/18 Removal time: 18:00 Straight Cath placed during this visit: no Results - Labs CBC & Chem 7: 01/27/18 05:10 01/28/18 10:14 Laboratory Results - last 24 hr 01/26/18 01/26/18 01/27/18 17:16 23:26 05:10 WBC 17.1 H RBC 2.86 L Hgb 9.0 L Hct 26.8 L MCV 93.5 MCH 31.5 MCHC 33.7 RDW 16.7 Plt Count 249 MPV 9.5 Prelim Diff (Auto) Slide review pending Neut % (Auto) 94.2 H Lymph % (Auto) 1.3 L [place] % (Auto) 4.3 Eos % (Auto) 0.0 Baso % (Auto) 0.2 Neut # (Auto) 16.1 H Lymph # (Auto) 0.2 L [place] # (Auto) 0.7 Eos # (Auto) 0.0 Baso # (Auto) 0.0 WBC Differential Manual diff final Seg Neuts % (Manual) 89 H Band Neuts % (Manual) 3 Lymphocytes % (Manual) 2 L Monocytes % (Manual) 3 Metamyelocytes % (Man) 1 Myelocytes % (Man) 1 H Promyelocytes % (Man) 1 H Abs Neuts (Manual) 16.2 H Differential Comment . Toxic Granulation 1+ H Platelet Estimate Normal Platelet Morphology Normal POC Glucose 243 H 305 H Phosphorus Magnesium 01/27/18 01/27/18 01/27/18 05:10 05:17 12:17 WBC RBC Hgb Hct MCV MCH MCHC RDW Plt Count MPV Prelim Diff (Auto) Neut % (Auto) Lymph % (Auto) [place] % (Auto) Eos % (Auto) Baso % (Auto) Neut # (Auto) Lymph # (Auto) [place] # (Auto) Eos # (Auto) Baso # (Auto) WBC Differential Seg Neuts % (Manual) Band Neuts % (Manual) Lymphocytes % (Manual) Monocytes % (Manual) Metamyelocytes % (Man) Myelocytes % (Man) Promyelocytes % (Man) Abs Neuts (Manual) Differential Comment Toxic Granulation Platelet Estimate Platelet Morphology POC Glucose 421 H 479 H* Phosphorus 5.2 H Magnesium 2.4 - Imaging Impressions Chest X-Ray 01/27/18 04:00 CONCLUSION: NG tube and left central line unchanged. Basilar airspace disease similar to prior exam. Assessment and Plan - Plan 62-year-old white male who was admitted with cardiogenic shock and acute respiratory failure requiring CPR and epinephrine in the field, after being found down at home and being witnessed to possibly have undergone seizure-like activity. Intubation was attempted in the field but were unable to do so, patient was ultimately intubated in the hospital, started on pressors, placed in the ICU on mechanical ventilation. Found to have bilateral pneumothoraces with chest tubes placed, had developed some pneumoperitoneum which surgically deemed might have been a leak from his chest tubes as opposed to an acute surgical abdomen. Patient was started on antibiotics empirically for possible aspiration pneumonia but was ultimately discontinued off of them by infectious disease. Developed rhabdomyolysis with worsening acute renal failure which became sustained, with the patient now undergoing dialysis via a permcath. Ultimately was discontinued off pressors, cardiology deferred heart cath due to renal failure. Patient had difficulty following commands after he was discontinued off of sedation and after extubation. 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 EEG was done which was unremarkable. Neurological deficits and aphasia -Left greater than right -CT showing right parietal encephalomalacia -Initial head MRI on 01/16- for acute findings -Repeat head MRI and order cervical spine MRI Continue PT, ordering OT and ST -Consulting neurology Possible seizure - maintain on keppra Non-STEMI Elevated troponin -Hydralazine, Coreg, isosorbide dinitrate, no intervention at this time per cards due to renal impairment -wean off of cardene drip as BP tolerates Bilateral pneumothoraces -BL chest tubes in place, monitor resp status, stable sats Pneumoperitoneum with right retroperitoneal gas/gas around the right kidney -Likely secondary to bilateral pneumothoraces with no surgical intervention warranted per general surgery discussion with ED Dr. Elevated ammonia-resolved Elevated LFTs -2/2 severe hepatic steatosis likely EtOH cirrhosis given US findings + CPK elevation + shock liver - improving - lactulose Acute kidney injury Rhabdomyolysis - improving but renal impairment is linger -Nephrology following, dialyzing diabetes mellitus hypothyroidism -Glimepiride -Sliding scale -Continue levothyroxine Normocytic anemia thrombocytopenia Likely secondary to liver disease, unlikely HIT 2/2 timeframe -Elevated haptoglobin/LDH and peripheral smear no signs of mellitus -We will discontinue heparin drip in light of significant thrombocytopenia. Aspirin on hold. Persistent leukocytosis -felt to be a leukemoid reaction per ID, we will continue to trend .
--- NOTE | 2018-01-27 15:03 | P.PNNP ---
Subjective Interval history: Patient extubated. Apparently following simple commands but speech not coherent. Physical Exam Vital signs: Vital Signs 01/26/18 15:00 01/26/18 16:00 01/26/18 17:00 Temperature 99.4 F Pulse Rate 104 H 108 H 104 H Respiratory Rate 22 22 22 Blood Pressure 149/86 H 137/82 127/73 Pulse Oximetry 99 97 98 01/26/18 18:00 01/26/18 19:00 01/26/18 19:01 Temperature Pulse Rate 104 H 101 H 101 H Respiratory Rate 22 25 H 23 Blood Pressure 136/74 158/83 H Pulse Oximetry 96 99 98 01/26/18 19:29 01/26/18 20:00 01/26/18 21:00 Temperature 99.2 F Pulse Rate 100 H 101 H Respiratory Rate 27 H 29 H Blood Pressure 154/79 H 161/86 H Pulse Oximetry 97 97 97 01/26/18 22:00 01/26/18 22:01 01/26/18 22:52 Temperature Pulse Rate 97 H 97 H Respiratory Rate 30 H 28 H Blood Pressure 159/76 H Pulse Oximetry 96 96 99 01/26/18 23:00 01/27/18 00:00 01/27/18 00:01 Temperature 99.2 F Pulse Rate 86 86 85 Respiratory Rate 24 22 22 Blood Pressure 159/88 H 159/79 H 159/79 H Pulse Oximetry 98 100 100 01/27/18 01:00 01/27/18 02:00 01/27/18 02:45 Temperature Pulse Rate 87 85 95 H Respiratory Rate 20 20 20 Blood Pressure 170/83 H 187/91 H 178/87 H Pulse Oximetry 99 97 99 01/27/18 03:00 01/27/18 04:00 01/27/18 04:26 Temperature 99.0 F Pulse Rate 88 102 H Respiratory Rate 20 21 Blood Pressure 158/76 H 133/67 Pulse Oximetry 96 98 99 01/27/18 05:00 01/27/18 05:13 01/27/18 06:00 Temperature Pulse Rate 104 H 102 H 99 H Respiratory Rate 22 16 21 Blood Pressure 133/68 112/57 L 123/71 Pulse Oximetry 99 97 98 01/27/18 07:00 01/27/18 08:00 01/27/18 09:00 Temperature Pulse Rate 101 H 100 H 100 H Respiratory Rate 21 20 20 Blood Pressure 141/75 H 140/71 142/72 H Pulse Oximetry 99 100 99 01/27/18 10:00 Temperature Pulse Rate 93 H Respiratory Rate 22 Blood Pressure 137/69 Pulse Oximetry 98 Intake & Output 01/26/18 01/27/18 01/27/18 18:59 06:59 18:59 Intake Total 1005 / 1005 781 / 781 500 / 500 Output Total 3954 / 3954 600 / 600 Balance -2949 / -2949 181 / 181 500 / 500 Weight 111.5 kg Intake: IV 305 / 305 105 / 105 500 / 500 Cardene Inj 25 MG In NS Inj 240 500 / 500 ML @ 5 MG/HR 50 mls/hr IV.CONT TITRATE PRN Rx#:[id number] Flexbumin 25% Inj 100 ML @ 60 200 / 200 mls/hr IV.SIG WITH DIALYSIS PRN Rx#:[id number] Keppra Inj 500 MG In NS Inj 100 105 / 105 105 / 105 ML @ 400 mls/hr IV.SIG Q12H HENRY Rx#:[id number] Tube Feeding 580 / 580 676 / 676 Tube Irrigant 120 / 120 Output: Urine 0 / 0 0 / 0 Stool 450 / 450 600 / 600 Hemodialysis Amount 3500 / 3500 Chest Tube Drainage 4 / 4 #1 Left Pleural 4 / 4 #2 Right Pleural 0 / 0 Other: Date of Last Bowel Movement 01/26/18 01/26/18 01/26/18 Narrative: GENERAL: Not in respiratory distress. Following with eyes. SKIN: Warm and dry. HEAD: Normocephalic. EYES: No scleral icterus. No injection or drainage. NECK: Supple, trachea midline. No JVD or lymphadenopathy. CARDIOVASCULAR: Regular rate and rhythm without murmurs, gallops, or rubs. RESPIRATORY: Breath sounds equal bilaterally. No accessory muscle use. GASTROINTESTINAL: Abdomen soft, non-tender, nondistended. MUSCULOSKELETAL: No cyanosis, 1+ pitting edema lower extremities BACK: Nontender without obvious deformity. No CVA tenderness. - Urinary Catheter Management Indwelling Temp Sensing Catheter Cath placed during this visit: yes, but has since been removed by the nurse Reason for continuing: Decision to DC catheter Insertion date: 01/14/18 Insertion time: 22:00 Removal date: 01/21/18 Removal time: 18:00 Straight Cath placed during this visit: no Assessment and Plan - Assessment (1) Acute renal failure Code(s): N17.9 - Acute kidney failure, unspecified Status: Acute Plan: No evidence of renal recovery today. nction. Next hemodialysis tomorrow. Medications should be adjusted for the patient's estimated GFR if clinically indicated. Avoid agents with significant potential for nephrotoxicity possible including NSAIDs for analgesia, iodine contrast agents. Gadolinium is contraindicated if the GFR is below 30. (2) Alcohol abuse Code(s): F10.10 - Alcohol abuse, uncomplicated Status: Acute (3) Alcohol withdrawal seizure with complication Code(s): F10.239 - Alcohol dependence with withdrawal, unspecified; R56.9 - Unspecified convulsions Status: Acute (4) Rhabdomyolysis Code(s): M62.82 - Rhabdomyolysis Status: Acute Plan: Related to previous seizure.
--- NOTE | 2018-01-27 15:48 | MR ---
EXAM DATE: 01/27/2018 3:16 PM EST AGE/SEX: 62 years / Male INDICATIONS: Left sided weakness. CLINICAL DATA: This is the patient's initial encounter. Patient reports that signs and symptoms have been present for 2 weeks and indicates a pain score of 0/10. MEDICAL/SURGICAL HISTORY: Cerebrovascular disease. Diabetes mellitus type II. Hypertension. N one. COMPARISON: [facility] [place], [place]/16/2018. . TECHNIQUE: Multiplanar, multisequence examination of the brain was performed without contrast. FINDINGS: Cerebrum: Redemonstration of encephalomalacia in the right posterior parietal mid convexities with a ssociated gliosis. Mild diffuse cerebral atrophy. The ventricles are normal for age. No evidence of midline shift, mass lesion, hemorrhage or acute infarction. No extraaxial fluid collections are seen . The pituitary gland and suprasellar cistern are normal in configuration. White Matter: Mild periventricular white matter T2 prolongation. Posterior Fossa: The cerebellum and brainstem are intact. The 4th ventricle is midline. The cerebel lopontine angle is unremarkable. The cerebellar tonsils are normal in position. Diffusion Imaging: No focal areas of restricted diffusion are seen. No evidence of acute infarction . Extracranial: The visualized portions of the orbits are unremarkable. Mild mucosal partial thickenin g in the maxillary sinuses, right greater than left. Fluid is noted in the mastoid air cells bilatera lly. This is unchanged from prior exam. CONCLUSION: 1. Remote right posterior parietal mid convexity infarct. 2. Mild cerebral atrophy with mild periventricular ischemic white matter demyelination. 3. Stable paranasal sinus mucosal disease and mastoiditis. 4. No acute abnormality. Specifically, no acute infarction or hemorrhage. Electronically signed by: Ronaldo Nuno MD 01/27/2018 3:47 PM EST
--- NOTE | 2018-01-27 16:14 | MR ---
EXAM DATE: 01/27/2018 3:34 PM EST AGE/SEX: 62 years / Male INDICATIONS: Extremity weakness. CLINICAL DATA: This is the patient's initial encounter. Patient reports that signs and symptoms have been present for 2 weeks and indicates a pain score of 0/10. MEDICAL/SURGICAL HISTORY: Cerebrovascular disease. Diabetes mellitus type II. Hypertension. N one. COMPAR[place]: [facility] [place]ERV[place], 01/14/2018. . TECHNIQUE: Multiplanar, multisequence MRI examination of the cervical spine was performed without co ntrast. FINDINGS: Cervical spine alignment is within normal limits. No cortical break or trabecular disruption demonstr ated. Vertebral bodies have normal height. Visualized portions of the posterior fossa are grossly unr emarkable. C2-C3: The disc is desiccated but otherwise normal. Very mild bilateral uncovertebral and facet oste oarthritis. There is mild foraminal stenosis, mostly on the left. C3-C4: The disc is desiccated and has slight loss of height. There is bulging of the annulus. A supe rimposed left foraminal protrusion is present, probably impinging on the exiting left C4 nerve root. There is mild bilateral uncovertebral and facet osteoarthritis. C4-C5: The disc is desiccated and has mild to moderate loss of height. There is a small, broad/diffu se disc osteophyte complex and moderate bilateral uncovertebral and facet osteoarthritis. Mild spinal stenosis. There is severe right and moderate left foraminal stenosis. C5-C6: The disc is desiccated and has moderate loss of height. There is bulging of the disc annulus and moderate bilateral uncovertebral and facet osteoarthritis. There is moderate to severe bilateral foraminal stenosis. C6-C7: The disc is desiccated and has moderate loss of height. Small, broad/diffuse disc osteophyte complex is present and there is moderate bilateral uncovertebral and facet osteoarthritis. There is m ild spinal stenosis and moderate to severe right, severe left foraminal stenosis. There is mild, reac tive appearing endplate marrow edema. C7-T1: Disc height and hydration within normal limits. Mild bilateral facet osteoarthritis. No pat inal or spinal stenosis. There is patchy edema in the erector spinae muscles, especially in the deep right muscles at the leve l of C2/C3. No atrophy seen. CONCLUSION: 1. No fracture or subluxation seen of the cervical spine but there is edema in the erector spinae mu scles, especially on the right at the level of the upper cervical spine. This is nonspecific but pres umably related to an acute or subacute strain. Localized early denervation would be conceivable but I don't see any atrophy. 2. There is an age-indeterminate left foraminal disc protrusion at C3/C4 that is probably impinging on the transiting left C4 nerve root. 3. Multilevel degenerative changes that otherwise appear chronic, as described. Associated high-grad e foraminal stenosis on the right at C4/C5, bilateral at C5/C6 and C6/C7. No high-grade spinal stenos is demonstrated. Electronically signed by: Dionisio Poole MD 01/27/2018 4:13 PM EST
--- NOTE | 2018-01-27 20:08 | MB ---
cc: Zac Iglesias MD DATE: 01/27/2018 HISTORY OF PRESENT ILLNESS: A 62-year-old man who was admitted on 01/14/2018, found down by family. On evaluation by EMS noted seizures. He was vomiting dark material, unable to intubate him. Seizures stopped at that point. He was obtunded in the ER, subsequently intubated and lost his pulses. CPR was given. Subcutaneous emphysema was noted. Large bilateral pneumothoraces were noted. Bilateral chest tubes were placed. He has had another cardiac arrest. I am asked to see him for persistent neurological problems. PAST MEDICAL HISTORY: Anxiety, stroke in the past, diabetes, alcohol abuse, hypertension. MEDICATIONS AT HOME: 1. Valsartan. 2. Sertraline. 3. Seroquel. 4. Protonix. 5. Thyroid medicine. 6. Glyburide. 7. Gabapentin. 8. Atorvastatin. CURRENT MEDICATIONS: He is on: 1. Aspirin 81. 2. Benadryl p.r.n. 3. Fentanyl p.r.n. 4. Gentamicin. 5. Glucagon. 6. Heparin subcutaneous. 7. He appears to be on dialysis. 8. Lactulose. 9. Keppra 500 q.12. 10. Synthroid. 11. Solu-Medrol. 12. Zofran. PHYSICAL EXAMINATION: VITAL SIGNS: Sinus rhythm, afebrile, 97, 126/64. NECK: There are no carotid bruits. HEART: Regular rate and rhythm. I do not detect a murmur. NEUROLOGIC: Pupils are equal. It is hard to tell if he reacts to threat at all. He does look at me, however. He will not stick out his tongue for me or say hello or any words, although evidently to a nurse one time, he said, "Thank you." He lifts his right arm up by himself about 6 inches off the bed. He does not lift up the left arm. Otherwise, if I hold his arms up, they just flop to the bed. He will not move his legs for me. Toes are mute. There is no ankle clonus. DTRs are 1+ and symmetric. He is awake and alert. LABORATORY AND DIAGNOSTIC DATA: White count 17,000, hematocrit 27, platelet count normal. Hepatitis screen has been negative. Urine drug screen positive for benzos only. Sugars up to 470. TSH normal. LFTs initially were elevated at 2600, down to 111. Ammonia level minimally elevated. Troponin was up to 2.4. Phosphorus and magnesium recently normal. GFR is 8, creatinine 7.4, BUN 114. Otherwise, BMP is okay. His first ABG 7.21, 39, 267. Last ABG 2 days ago 7.52, 31, 67. O2 saturation 91%. Coags look like he has been on heparin. PTT has been elevated. INR was normal. He had an MRI of his brain done today that shows a remote right posterior infarct. On review of the films, he has some sinus fluids in the sphenoid sinus and the right maxillary sinus. There is an old right MCA infarct, moderate size. No acute stroke is seen. There is a little bit of cortical ribbon hyperintensity on the diffusion image, especially posteriorly, and could indicate some slight anoxic damage. No major acute infarct is noted. He had a cervical spine MRI done. He has some diffuse DJD. No major cord compression is noted. IMPRESSION: No new stroke. 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 We should at least a check carotid ultrasound. His echocardiogram, I note, showed a normal ejection fraction here. If he has had any atrial fibrillation, he should be anticoagulated. We will check a carotid ultrasound, as noted, for the old stroke, but no new stroke is noted. Whether he could have some slight anoxic damage certainly is a consideration with the history and the fact he is not really communicating well. His EEG, I note, was negative. There are some slight changes on the diffusion image, which could indicate some slight anoxic damage, but not major. Overall, he does not look too bad neurologically but not communicating currently and we will have to watch him over time. Certainly, the seizures that were initially witnessed by the body designer could come from the old right stroke and [facility]. MD VERONICA Flores/lilly , 07:24 PM , 07:34 PM
[2018-01-28] MEDS: Insulin NovoLIN Regular Correctional Sugar Inj SQ SCH ×4 (01:36→18:19)
[2018-01-28] MEDS: Oral Hygiene Kit OROPHARYNG SCH ×4 (01:36→15:21)
[2018-01-28] MEDS: Pantoprazole Inj 40 MG Vial IV.PUSH SCH ×2 (01:37→12:59)
[2018-01-28] MEDS: Artificial Tears Opth Drops 15 ML Bottle EACH EYE SCH ×3 (01:37→15:21)
[2018-01-28] MEDS: Heparin - SQ 10,000 UNITS/ML Vial SQ SCH ×3 (06:33→22:21)
[2018-01-28] MEDS: hydrALAZINE 25 MG Tablet PO SCH ×3 (06:33→22:20)
[2018-01-28] MEDS: Levothyroxine 88 MCG Tablet PO SCH (06:34)
--- NOTE | 2018-01-28 07:43 | P.PNNEU ---
Subjective Active Medications: Active Medications Acetaminophen (Tylenol) 650 mg PO UNSCH PRN PRN Reason: SEE LABEL COMMENTS Al Hydroxide/Mg Hydroxide (Milk Of Magngabriela Liq) 30 ml PO Q12H PRN PRN Reason: Mild Constipation Albuterol (Albuterol Neb (Prn)) 2.5 mg NEB Q2HR NEB PRN PRN Reason: DYSPNEA Last Admin: 01/25/18 13:04 Dose: 2.5 mg Artificial Tears (Tears Naturale Opth Drops) 1 drop EACH EYE Q8H [facility] Last Admin: 01/28/18 01:37 Dose: 1 drop Aspirin (Aspirin Chew) 81 mg PO DAILY [facility] Last Admin: 01/27/18 09:00 Dose: 81 mg Bisacodyl (Dulcolax Supp) 10 mg RECTAL DAILY PRN PRN Reason: SEVERE CONSITIPATION Carvedilol (Coreg) 6.25 mg PO BID [facility] Last Admin: 01/27/18 22:06 Dose: 6.25 mg Chlorhexidine Gluconate (Peridex 0.12% Oral Kit) 15 ml OROPHARYNG BID@0800, 2000 [facility] Last Admin: 01/27/18 22:06 Dose: 15 ml Dextrose (D50w Vial) 50 ml IV.PUSH UNSCH PRN PRN Reason: PER HYPOGLYCEMIA PROTOCOL Diphenhydramine HCl (Benadryl) 25 mg PO UNSCH PRN PRN Reason: SEE LABEL COMMENTS Diphenhydramine HCl (Benadryl) 25 mg PO UNSCH PRN PRN Reason: SEE LABEL COMMENTS Folic Acid (Folic Acid) 1 mg PO DAILY [facility] Last Admin: 01/27/18 09:00 Dose: 1 mg Gelatin (Gelfoam 12 Mm/7 Mm Topical) 1 foam TOPICAL PRN PRN PRN Reason: help stop bleeding from site Gentamicin Sulfate (Gentamicin Inj) 20 mg OTHER WITH DIALYSIS PRN PRN Reason: Dwell Gentamycin Lock Last Admin: 01/26/18 15:19 Dose: 20 mg Glucagon (Glucagon Inj) 1 mg OTHER PRN PRN PRN Reason: for Hypoglycemia Protocol Heparin Sodium (Porcine) (Heparin Inj) 0 units IV.FLUSH WITH DIALYSIS PRN PRN Reason: Flush each lumen Last Admin: 01/25/18 08:38 Dose: 2,000 units Heparin Sodium (Porcine) (Heparin Inj) 8,000 units OTHER WITH DIALYSIS PRN PRN Reason: for machine prime Heparin Sodium (Porcine) (Heparin Inj) 1,000 units OTHER WITH DIALYSIS PRN PRN Reason: Dwell Heparin to Fill Catheter Last Admin: 01/26/18 15:19 Dose: 1,000 units Heparin Sodium (Porcine) (Heparin Inj) 5,000 units SQ Q8HR [facility] Last Admin: 01/28/18 06:33 Dose: 5,000 units Hydralazine HCl (Apresoline Inj) 10 mg IV.PUSH Q1H PRN PRN Reason: sbp > 165 Last Admin: 01/27/18 00:30 Dose: 10 mg Hydralazine HCl (Apresoline) 100 mg PO Q8HR [facility] Last Admin: 01/28/18 06:33 Dose: 100 mg Fentanyl (Fentanyl 10 Mcg/Ml Premix Drip) 2,500 mcg in 250 mls @ 5 mls/hr IV.SIG TITRATE PRN; Protocol PRN Reason: Per Protocol Last Titration: 01/21/18 19:00 Dose: Infused Propofol (Diprivan 1000 Mg/100 Ml Inj) 1,000 mg in 100 mls @ 3.633 mls/hr IV.CONT TITRATE PRN; Protocol PRN Reason: Per Protocol Levetiracetam 500 mg/ Sodium (Chloride) 105 mls @ 400 mls/hr IV.SIG Q12H [facility] Last Admin: 01/28/18 01:37 Dose: 400 mls/hr Albumin Human (Flexbumin 25% Inj) 100 mls @ 60 mls/hr IV.SIG WITH DIALYSIS PRN PRN Reason: hypotension / volume replace Last Infusion: 01/26/18 16:48 Dose: Infused Sodium Chloride (Ns Inj) 1,000 mls @ 0 mls/hr OTHER .Q0M PRN PRN Reason: for prime and rinse back Last Infusion: 01/26/18 02:33 Dose: Infused Sodium Chloride (Ns Inj) 1,000 mls @ 200 mls/hr OTHER .Q5H PRN PRN Reason: for dialyzer flush PRN Sodium Chloride (Ns Inj) 1,000 mls @ 0 mls/hr IV.CONT .Q0M PRN PRN Reason: hypotension / volume replace Midazolam HCl (Versed Inj) 100 mg in 100 mls @ 2 mls/hr IV.CONT TITRATE PRN; Protocol PRN Reason: PER PROTOCOL Last Titration: 01/21/18 19:00 Dose: Infused Nicardipine HCl 25 mg/ Sodium (Chloride) 250 mls @ 50 mls/hr IV.CONT TITRATE PRN; Protocol PRN Reason: Per Protocol Last Admin: 01/27/18 22:09 Dose: 5 mg/hr, 50 mls/hr Dexmedetomidine HCl 1,000 mcg/ (Sodium Chloride) 250 mls @ 5.85 mls/hr IV.CONT TITRATE PRN; Protocol PRN Reason: Per Protocol Last Titration: 01/25/18 12:00 Dose: Infused Insulin Human Regular (Novolin R Correctional Sugar Inj) 0 units SQ Q6HR [facility]; Protocol Last Admin: 01/28/18 06:35 Dose: 20 units Isosorbide Dinitrate (Isordil) 20 mg PO Q8HR [facility] Last Admin: 01/28/18 06:34 Dose: 20 mg Labetalol HCl (Trandate Inj) 10 mg IV.PUSH Q4H PRN PRN Reason: HTN Last Admin: 01/27/18 01:22 Dose: 10 mg Lactulose (Lactulose Liq) 30 ml PO DAILY PRN PRN Reason: SEVERE CONSITIPATION Lactulose (Lactulose Liq) 30 ml PO BID [facility] Last Admin: 01/27/18 22:06 Dose: 30 ml Levothyroxine Sodium (Synthroid) 88 mcg PO DAILY@0600 [facility] Last Admin: 01/28/18 06:34 Dose: 88 mcg Mannitol (Mannitol Inj) 12.5 gm IV.PUSH UNSCH PRN PRN Reason: hypotension / volume replace Methylprednisolone Sodium Succinate (Solumedrol Inj) 40 mg IV.PUSH BID [facility] Last Admin: 01/27/18 22:07 Dose: 40 mg Miscellaneous Medication () 1 each OROPHARYNG 0000,0400,1200,1600 [facility] Last Admin: 01/28/18 06:33 Dose: Not Given Morphine Sulfate (Morphine Inj) 2 mg IV.PUSH Q2H PRN PRN Reason: PAIN SCALE 6 TO 10 Last Admin: 01/26/18 10:01 Dose: 2 mg Multivitamins (Theragran) 1 tab PO DAILY [facility] Last Admin: 01/27/18 09:00 Dose: 1 tab Nitroglycerin (Nitro-Bid 2% Oint) 2 inch TOPICAL Q6HR PRN PRN Reason: Sbp>165, Dbp>90 Nitroglycerin (Nitrostat Sl) 0.4 mg SL Q5M PRN PRN Reason: CHEST PAIN Ondansetron HCl (Zofran Inj) 4 mg IV.PUSH Q6H PRN PRN Reason: NAUSEA OR VOMITING Last Admin: 01/15/18 05:38 Dose: 4 mg Ondansetron HCl (Zofran Inj) 4 mg IV.PUSH UNSCH PRN PRN Reason: NAUSEA OR VOMITING Pantoprazole Sodium (Protonix Inj) 40 mg IV.PUSH Q12H [facility] Last Admin: 01/28/18 01:37 Dose: 40 mg Senna/Docusate Sodium (Ayleen-Colace) 1 tab PO BID [facility] Last Admin: 01/27/18 22:07 Dose: 1 tab Sennosides (Senokot) 17.2 mg PO Q12H PRN PRN Reason: Moderate Constipation Sodium Chloride (Ns Flush) 2 ml IV.FLUSH BID [facility] Last Admin: 01/27/18 22:07 Dose: 2 ml Sodium Chloride (Ns Flush) 2 ml IV.FLUSH PRN PRN PRN Reason: FLUSH AFTER USING IV ACCESS Last Admin: 01/16/18 09:33 Dose: 2 ml Sodium Chloride (Ns Flush) 0 ml IV.FLUSH PRN PRN PRN Reason: FLUSH AFTER USING IV ACCESS Sodium Chloride (Ns Flush) 5 ml IV.FLUSH PRN PRN PRN Reason: flush each lumen during HD Sodium Chloride (Ns Flush) 5 ml IV.FLUSH PRN PRN PRN Reason: flush each lumen during HD Terbutaline Sulfate (Brethine Inj) 1 mg SQ UNSCH PRN PRN Reason: For Extravasation Thiamine HCl (Vitamin B1) 100 mg PO DAILY [facility] Last Admin: 01/27/18 09:00 Dose: 100 mg Allergies/Adverse Reactions: Allergies Allergy/AdvReac Type Severity Reaction Status Date / Time erythromycin base Allergy Severe Hives Verified 01/14/18 03:00 penicillin G Allergy Severe Hives Verified 01/14/18 03:00 Physical Exam Vital signs: Vital Signs 01/27/18 08:00 01/27/18 09:00 01/27/18 10:00 Temperature Pulse Rate 100 H 100 H 93 H Respiratory Rate 20 20 22 Blood Pressure 140/71 142/72 H 137/69 Pulse Oximetry 100 99 98 01/27/18 11:00 01/27/18 12:00 01/27/18 13:00 Temperature Pulse Rate 91 H 92 H 93 H Respiratory Rate 23 22 22 Blood Pressure 132/68 136/73 136/72 Pulse Oximetry 98 99 97 01/27/18 14:00 01/27/18 15:27 01/27/18 15:38 Temperature Pulse Rate 95 H 97 H 97 H Respiratory Rate 23 23 21 Blood Pressure 138/71 133/75 Pulse Oximetry 97 96 01/27/18 16:00 01/27/18 17:00 01/27/18 18:00 Temperature Pulse Rate 97 H 96 H 95 H Respiratory Rate 16 19 22 Blood Pressure Pulse Oximetry 01/27/18 19:00 01/27/18 20:00 01/27/18 20:49 Temperature 97.1 F L Pulse Rate 96 H 94 H Respiratory Rate 23 21 Blood Pressure Pulse Oximetry 98 100 98 01/27/18 21:00 01/27/18 22:00 01/27/18 22:29 Temperature Pulse Rate 92 H 93 H 99 H Respiratory Rate 22 21 23 Blood Pressure 100/54 L Pulse Oximetry 98 99 98 01/27/18 23:00 01/27/18 23:01 01/28/18 00:00 Temperature 97.4 F L Pulse Rate 91 H 92 H 83 Respiratory Rate 24 21 29 H Blood Pressure 121/71 126/80 Pulse Oximetry 99 99 99 01/28/18 00:49 01/28/18 01:00 01/28/18 01:01 Temperature Pulse Rate 87 87 Respiratory Rate 18 17 Blood Pressure 155/87 H Pulse Oximetry 98 100 100 01/28/18 01:13 01/28/18 02:00 01/28/18 03:00 Temperature Pulse Rate 86 89 88 Respiratory Rate 20 21 18 Blood Pressure 145/85 H 157/85 H Pulse Oximetry 100 100 99 01/28/18 03:01 01/28/18 04:00 01/28/18 04:02 Temperature 97.6 F Pulse Rate 90 94 H 93 H Respiratory Rate 19 30 H 20 Blood Pressure 141/80 H 139/84 Pulse Oximetry 100 100 100 01/28/18 05:00 01/28/18 06:00 01/28/18 06:20 Temperature Pulse Rate 88 91 H 93 H Respiratory Rate 23 18 17 Blood Pressure 158/83 H 157/83 H 155/83 H Pulse Oximetry 99 100 99 01/28/18 07:00 01/28/18 07:35 Temperature Pulse Rate 98 H 96 H Respiratory Rate 19 18 Blood Pressure 129/73 142/81 H Pulse Oximetry 99 98 Intake & Output 01/27/18 01/28/18 01/28/18 18:59 06:59 18:59 Intake Total 605 / 605 250 / 250 Output Total 200 / 200 Balance 405 / 405 250 / 250 Intake: IV 605 / 605 250 / 250 Cardene Inj 25 MG In NS Inj 240 500 / 500 250 / 250 ML @ 5 MG/HR 50 mls/hr IV.CONT TITRATE PRN Rx#:[id number] Keppra Inj 500 MG In NS Inj 100 105 / 105 ML @ 400 mls/hr IV.SIG Q12H [facility] Rx#:[id number] Output: Stool 200 / 200 Other: Date of Last Bowel Movement 01/26/18 01/27/18 Narrative: picked up r arm a little for me looked at me seems to be interacting a little on bipap - Urinary Catheter Management Indwelling Temp Sensing Catheter Cath placed during this visit: yes, but has since been removed by the nurse Reason for continuing: Decision to DC catheter Insertion date: 01/14/18 Insertion time: 22:00 Removal date: 01/21/18 Removal time: 18:00 Straight Cath placed during this visit: no Objective Laboratory Results - last 24 hr 01/27/18 01/27/18 01/27/18 05:10 05:10 12:17 WBC Differential Manual diff final Seg Neuts % (Manual) 89 H Band Neuts % (Manual) 3 Lymphocytes % (Manual) 2 L Monocytes % (Manual) 3 Metamyelocytes % (Man) 1 Myelocytes % (Man) 1 H Promyelocytes % (Man) 1 H Abs Neuts (Manual) 16.2 H Toxic Granulation 1+ H Platelet Estimate Normal Platelet Morphology Normal POC Glucose 479 H* Vitamin B12 1178 H 01/27/18 01/28/18 01/28/18 18:17 01:17 06:22 WBC Differential Seg Neuts % (Manual) Band Neuts % (Manual) Lymphocytes % (Manual) Monocytes % (Manual) Metamyelocytes % (Man) Myelocytes % (Man) Promyelocytes % (Man) Abs Neuts (Manual) Toxic Granulation Platelet Estimate Platelet Morphology POC Glucose 346 H 261 H 300 H Vitamin B12 Review/Management - Review/Management Plan: imp seems to be interacting a little b12 nl fu us old r cva on asa sz focus could be there on keppra echo neg if any afib would anticoag
[2018-01-28] MEDS: Carvedilol 6.25 MG Tablet PO SCH ×2 (08:02→22:20)
[2018-01-28] MEDS: Chlorhexidine 0.12% Oral Kit 15 ML UDC OROPHARYNG SCH ×2 (08:02→22:19)
[2018-01-28] MEDS: Senna/Docusate Sodium 8.6/50 MG Tablet PO SCH ×2 (08:02→22:20)
[2018-01-28] MEDS: Folic Acid 1 MG Tablet PO SCH (08:02)
[2018-01-28] MEDS: MethylPREDNISolone Sod Succinate Inj 40 MG/ML Vial IV.PUSH SCH ×2 (08:02→15:21)
[2018-01-28] MEDS: Albumin Human 25% Inj 100 ML IV.SIG PRN ×2 (08:42→08:55)
[2018-01-28] MEDS: Heparin 10,000 UNITS/10 ML Vial (for IV use) OTHER PRN (08:42)
--- NOTE | 2018-01-28 09:46 | P.PNNP ---
Subjective Interval history: Pt seen during HD and tolerating well. No labs this AM, but no UOP. Extubated and awake, but no verbal responses. Physical Exam Vital signs: Vital Signs 01/27/18 10:00 01/27/18 11:00 01/27/18 12:00 Temperature Pulse Rate 93 H 91 H 92 H Respiratory Rate 22 23 22 Blood Pressure 137/69 132/68 136/73 Pulse Oximetry 98 98 99 01/27/18 13:00 01/27/18 14:00 01/27/18 15:27 Temperature Pulse Rate 93 H 95 H 97 H Respiratory Rate 22 23 23 Blood Pressure 136/72 138/71 Pulse Oximetry 97 97 96 01/27/18 15:38 01/27/18 16:00 01/27/18 17:00 Temperature Pulse Rate 97 H 97 H 96 H Respiratory Rate 21 16 19 Blood Pressure 133/75 Pulse Oximetry 01/27/18 18:00 01/27/18 19:00 01/27/18 20:00 Temperature 97.1 F L Pulse Rate 95 H 96 H 94 H Respiratory Rate 22 23 21 Blood Pressure Pulse Oximetry 98 100 01/27/18 20:49 01/27/18 21:00 01/27/18 22:00 Temperature Pulse Rate 92 H 93 H Respiratory Rate 22 21 Blood Pressure Pulse Oximetry 98 98 99 01/27/18 22:29 01/27/18 23:00 01/27/18 23:01 Temperature Pulse Rate 99 H 91 H 92 H Respiratory Rate 23 24 21 Blood Pressure 100/54 L 121/71 Pulse Oximetry 98 99 99 01/28/18 00:00 01/28/18 00:49 01/28/18 01:00 Temperature 97.4 F L Pulse Rate 83 87 Respiratory Rate 29 H 18 Blood Pressure 126/80 Pulse Oximetry 99 98 100 01/28/18 01:01 01/28/18 01:13 01/28/18 02:00 Temperature Pulse Rate 87 86 89 Respiratory Rate 17 20 21 Blood Pressure 155/87 H 145/85 H 157/85 H Pulse Oximetry 100 100 100 01/28/18 03:00 01/28/18 03:01 01/28/18 04:00 Temperature 97.6 F Pulse Rate 88 90 94 H Respiratory Rate 18 19 30 H Blood Pressure 141/80 H Pulse Oximetry 99 100 100 01/28/18 04:02 01/28/18 05:00 01/28/18 06:00 Temperature Pulse Rate 93 H 88 91 H Respiratory Rate 20 23 18 Blood Pressure 139/84 158/83 H 157/83 H Pulse Oximetry 100 99 100 01/28/18 06:20 01/28/18 07:00 01/28/18 07:35 Temperature Pulse Rate 93 H 98 H 96 H Respiratory Rate 17 19 18 Blood Pressure 155/83 H 129/73 142/81 H Pulse Oximetry 99 99 98 01/28/18 08:00 01/28/18 08:20 01/28/18 09:00 Temperature 97.7 F Pulse Rate 96 H 90 Respiratory Rate 18 20 Blood Pressure 141/81 H Pulse Oximetry 100 98 97 01/28/18 09:01 Temperature Pulse Rate 90 Respiratory Rate 20 Blood Pressure 118/76 Pulse Oximetry 98 Intake & Output 01/27/18 01/28/18 01/28/18 18:59 06:59 18:59 Intake Total 605 / 605 852 / 852 555 / 555 Output Total 200 / 200 808 / 808 Balance 405 / 405 44 / 44 555 / 555 Weight 112 kg Intake: IV 605 / 605 250 / 250 555 / 555 Cardene Inj 25 MG In NS Inj 240 500 / 500 250 / 250 250 / 250 ML @ 5 MG/HR 50 mls/hr IV.CONT TITRATE PRN Rx#:[id number] Flexbumin 25% Inj 100 ML @ 60 200 / 200 mls/hr IV.SIG WITH DIALYSIS PRN Rx#:[id number] Keppra Inj 500 MG In NS Inj 100 105 / 105 105 / 105 ML @ 400 mls/hr IV.SIG Q12H [facility] Rx#:[id number] Tube Feeding 502 / 502 Tube Irrigant 100 / 100 Water Bolus Amount 0 / 0 Output: Urine 0 / 0 Stool 200 / 200 800 / 800 Pleural Fluid 0 / 0 Hemodialysis Amount 0 / 0 Urine Amount (Catheter) 0 / 0 Indwelling Temp Sensing 0 / 0 Catheter Straight 0 / 0 Chest Tube Drainage #1 Left Pleural 0 / 0 #2 Right Pleural Other: # Incontinent Voids 0 Date of Last Bowel Movement 01/26/18 01/28/18 01/27/18 - Constitutional no acute distress - Routine HEENT Exam Head: Present: normocephalic - Routine Respiratory Exam Present: CTA bilaterally - Routine Cardiovascular Exam Present: RRR, S1, S2 - Routine Abdominal Exam Present: soft - Routine Extremities Exam Present: edema (1+ pitting generalized) - Urinary Catheter Management Indwelling Temp Sensing Catheter Cath placed during this visit: yes, but has since been removed by the nurse Reason for continuing: Decision to DC catheter Insertion date: 01/14/18 Insertion time: 22:00 Removal date: 01/21/18 Removal time: 18:00 Straight Cath placed during this visit: no Assessment and Plan - Assessment (1) Acute renal failure Code(s): N17.9 - Acute kidney failure, unspecified Status: Acute Plan: Pt seen during HD and tolerating well. Labs pending today. No sign of renal recovery at this point in time. Next tentative HD Wed Medications should be adjusted for the patient's estimated GFR if clinically indicated. Avoid agents with significant potential for nephrotoxicity possible including NSAIDs for analgesia, iodine contrast agents. Gadolinium is contraindicated if the GFR is below 30. (2) Alcohol abuse Code(s): F10.10 - Alcohol abuse, uncomplicated Status: Acute (3) Alcohol withdrawal seizure with complication Code(s): F10.239 - Alcohol dependence with withdrawal, unspecified; R56.9 - Unspecified convulsions Status: Acute (4) Rhabdomyolysis Code(s): M62.82 - Rhabdomyolysis Status: Acute Plan: Related to previous seizure.
[2018-01-28 11:36] LABS: Albumin 4.4 g/dL (3.4-5.0); Calcium 8.7 mg/dL (8.5-10.1); Carbon Dioxide 23.9 meq/L (21.0-32.0); Phosphorus 4.3 mg/dL (2.5-4.9); Potassium 3.6 meq/L (3.5-5.1)
--- NOTE | 2018-01-28 12:53 | P.PN ---
Subjective Interval history: Nursing reports the patient's blood sugars are reaching the 400s with the tube feeds in place, was successfully weaned off of Cardene drip earlier. Thinks that the left-sided chest tube is not necessarily working at this time. Otherwise no acute deterioration. Physical Exam Vital signs: Vital Signs 01/27/18 13:00 01/27/18 14:00 01/27/18 15:27 Temperature Pulse Rate 93 H 95 H 97 H Respiratory Rate 22 23 23 Blood Pressure 136/72 138/71 Pulse Oximetry 97 97 96 01/27/18 15:38 01/27/18 16:00 01/27/18 17:00 Temperature Pulse Rate 97 H 97 H 96 H Respiratory Rate 21 16 19 Blood Pressure 133/75 Pulse Oximetry 01/27/18 18:00 01/27/18 19:00 01/27/18 20:00 Temperature 97.1 F L Pulse Rate 95 H 96 H 94 H Respiratory Rate 22 23 21 Blood Pressure Pulse Oximetry 98 100 01/27/18 20:49 01/27/18 21:00 01/27/18 22:00 Temperature Pulse Rate 92 H 93 H Respiratory Rate 22 21 Blood Pressure Pulse Oximetry 98 98 99 01/27/18 22:29 01/27/18 23:00 01/27/18 23:01 Temperature Pulse Rate 99 H 91 H 92 H Respiratory Rate 23 24 21 Blood Pressure 100/54 L 121/71 Pulse Oximetry 98 99 99 01/28/18 00:00 01/28/18 00:49 01/28/18 01:00 Temperature 97.4 F L Pulse Rate 83 87 Respiratory Rate 29 H 18 Blood Pressure 126/80 Pulse Oximetry 99 98 100 01/28/18 01:01 01/28/18 01:13 01/28/18 02:00 Temperature Pulse Rate 87 86 89 Respiratory Rate 17 20 21 Blood Pressure 155/87 H 145/85 H 157/85 H Pulse Oximetry 100 100 100 01/28/18 03:00 01/28/18 03:01 01/28/18 04:00 Temperature 97.6 F Pulse Rate 88 90 94 H Respiratory Rate 18 19 30 H Blood Pressure 141/80 H Pulse Oximetry 99 100 100 01/28/18 04:02 01/28/18 05:00 01/28/18 06:00 Temperature Pulse Rate 93 H 88 91 H Respiratory Rate 20 23 18 Blood Pressure 139/84 158/83 H 157/83 H Pulse Oximetry 100 99 100 01/28/18 06:20 01/28/18 07:00 01/28/18 07:35 Temperature Pulse Rate 93 H 98 H 96 H Respiratory Rate 17 19 18 Blood Pressure 155/83 H 129/73 142/81 H Pulse Oximetry 99 99 98 01/28/18 08:00 01/28/18 08:20 01/28/18 09:00 Temperature 97.7 F Pulse Rate 96 H 90 Respiratory Rate 18 20 Blood Pressure 141/81 H Pulse Oximetry 100 98 97 01/28/18 09:01 01/28/18 10:00 01/28/18 11:00 Temperature Pulse Rate 90 91 H 91 H Respiratory Rate 20 21 21 Blood Pressure 118/76 131/83 Pulse Oximetry 98 99 98 01/28/18 11:01 01/28/18 12:00 Temperature Pulse Rate 93 H 93 H Respiratory Rate 21 20 Blood Pressure 124/78 131/81 Pulse Oximetry 98 100 Intake & Output 01/27/18 01/28/18 01/28/18 18:59 06:59 18:59 Intake Total 605 / 605 852 / 852 555 / 555 Output Total 200 / 200 808 / 808 4000 / 4000 Balance 405 / 405 44 / 44 -3445 / -3445 Weight 112 kg Intake: IV 605 / 605 250 / 250 555 / 555 Cardene Inj 25 MG In NS Inj 240 500 / 500 250 / 250 250 / 250 ML @ 5 MG/HR 50 mls/hr IV.CONT TITRATE PRN Rx#:[id number] Flexbumin 25% Inj 100 ML @ 60 200 / 200 mls/hr IV.SIG WITH DIALYSIS PRN Rx#:[id number] Keppra Inj 500 MG In NS Inj 100 105 / 105 105 / 105 ML @ 400 mls/hr IV.SIG Q12H HENRY Rx#:[id number] Tube Feeding 502 / 502 Tube Irrigant 100 / 100 Water Bolus Amount 0 / 0 Output: Urine 0 / 0 Stool 200 / 200 800 / 800 Pleural Fluid 0 / 0 Hemodialysis Amount 0 / 0 4000 / 4000 Urine Amount (Catheter) 0 / 0 Indwelling Temp Sensing 0 / 0 Catheter Straight 0 / 0 Chest Tube Drainage #1 Left Pleural 0 / 0 #2 Right Pleural Other: # Incontinent Voids 0 Date of Last Bowel Movement 01/26/18 01/28/18 01/27/18 Narrative: Patient sleeping, awoken when his name is called Visually tracks me, maintains eye contact, does rotate his head to track me Otherwise does not follow motor commands with both hands today, does not his head when he tries to communicate with me but is unable to vocalize any words Heart sounds regular rate and rhythm, no murmurs Clear lungs bilaterally, labored breathing Bilateral chest tubes in place, no air leak noted, chest tubes to wall suction, no active suctioning is heard or visualized preventing further blood or fluid Abdomen soft, nontender, mild distention Nasogastric tube in place Generalized moderate edema in hands and feet likely secondary to renal disease and liver disease - Urinary Catheter Management Indwelling Temp Sensing Catheter Cath placed during this visit: yes, but has since been removed by the nurse Reason for continuing: Decision to DC catheter Insertion date: 01/14/18 Insertion time: 22:00 Removal date: 01/21/18 Removal time: 18:00 Straight Cath placed during this visit: no Results - Labs CBC & Chem 7: 01/27/18 05:10 01/28/18 10:14 Laboratory Results - last 24 hr 01/27/18 01/27/18 01/28/18 05:10 18:17 01:17 Sodium Potassium Chloride Carbon Dioxide Anion Gap BUN Creatinine Estimated GFR POC Glucose 346 H 261 H Random Glucose Calcium Phosphorus Albumin Vitamin B12 1178 H 01/28/18 01/28/18 06:22 10:14 Sodium 141 Potassium 3.6 Chloride 101 Carbon Dioxide 23.9 Anion Gap 16 H BUN 97 H Creatinine 5.60 H Estimated GFR 10 L POC Glucose 300 H Random Glucose 238 H Calcium 8.7 Phosphorus 4.3 Albumin 4.4 Vitamin B12 - Imaging Impressions Cervical Spine MRI 01/27/18 00:00 CONCLUSION: 1. No fracture or subluxation seen of the cervical spine but there is edema in the erector spinae muscles, especially on the right at the level of the upper cervical spine. This is nonspecific but presumably related to an acute or subacute strain. Localized early denervation would be conceivable but I don't see any atrophy. 2. There is an age-indeterminate left foraminal disc protrusion at C3/C4 that is probably impinging on the transiting left C4 nerve root. 3. Multilevel degenerative changes that otherwise appear chronic, as described. Associated high-grade foraminal stenosis on the right at C4/C5, bilateral at C5/C6 and C6/C7. No high-grade spinal stenosis demonstrated. Head MRI 01/27/18 00:00 CONCLUSION: 1. Remote right posterior parietal mid convexity infarct. 2. Mild cerebral atrophy with mild periventricular ischemic white matter demyelination. 3. Stable paranasal sinus mucosal disease and mastoiditis. 4. No acute abnormality. Specifically, no acute infarction or hemorrhage. Assessment and Plan - Plan 62-year-old white male who was admitted with cardiogenic shock and acute respiratory failure requiring CPR and epinephrine in the field, after being found down at home and being witnessed to possibly have undergone seizure-like activity. Intubation was attempted in the field but were unable to do so, patient was ultimately intubated in the hospital, started on pressors, placed in the ICU on mechanical ventilation. Found to have bilateral pneumothoraces with chest tubes placed, had developed some pneumoperitoneum which surgically deemed might have been a leak from his chest tubes as opposed to an acute surgical abdomen. Patient was started on antibiotics empirically for possible aspiration pneumonia but was ultimately discontinued off of them by infectious disease. Developed rhabdomyolysis with worsening acute renal failure which became sustained, with the patient now undergoing dialysis via a permcath. Ultimately was discontinued off pressors, cardiology deferred heart cath due to renal failure. Patient had difficulty following commands after he was discontinued off of sedation and after extubation. 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 EEG was done which was unremarkable. Neurological deficits and aphasia -Left greater than right -CT showing right parietal encephalomalacia -Initial head MRI on 01/16- for acute findings -Repeat head MRI showing no acute changes, cervical spine MRI showing diffuse disc desiccation but no obvious reasons that would indicate his difficulty in following motor commands Continue PT, ordering OT and ST -Consulting neurology Possible seizure - maintain on keppra Non-STEMI Elevated troponin -Hydralazine, Coreg, isosorbide dinitrate, no intervention at this time per cards due to renal impairment Weaned off of Cardene drip on 01/27 Bilateral pneumothoraces -BL chest tubes in place, consulting pulmonology for comanagement Pneumoperitoneum with right retroperitoneal gas/gas around the right kidney -Likely secondary to bilateral pneumothoraces with no surgical intervention warranted per general surgery discussion with ED DrJennifer Elevated LFTs -2/2 severe hepatic steatosis likely EtOH cirrhosis given US findings + CPK elevation + shock liver - improving - lactulose Acute kidney injury now resulting in likely end-stage renal disease Rhabdomyolysis -Rhabdomyolysis is improving however renal impairment appears permanent now -Nephrology following, dialyzing diabetes mellitus hypothyroidism -Glimepiride -Sliding scale, will start Levemir tonight for better control -Continue levothyroxine Normocytic anemia thrombocytopenia Likely secondary to liver disease, unlikely HIT 2/2 timeframe -Elevated haptoglobin/LDH and peripheral smear no signs of mellitus -We will discontinue heparin drip in light of significant thrombocytopenia. Aspirin on hold. Persistent leukocytosis -felt to be a leukemoid reaction per ID, we will continue to trend .
--- NOTE | 2018-01-28 13:46 | MB ---
cc: Dina Rob MD DATE: 01/28/2018 HISTORY OF PRESENT ILLNESS: The patient is a 62-year-old male who presented to [facility] ED on 01/14/2018 via EMS for altered mental status and seizures. The patient was found obtunded in the ER and was subsequently intubated by the ED physician. Shortly after, he went into cardiopulmonary arrest with successful return of spontaneous circulation after 2 cycles of CPR. He was noted to have significant subcutaneous emphysema and underwent a CT scan of the head, chest and abdomen which showed bilateral pneumothoraces as well as free air in the peritoneal cavity. Bilateral chest tubes were placed immediately in the ER. The patient was seen by Dr. Jimenez from general surgery and it was felt that the free air in the peritoneum was secondary to a leak from the chest cavity from bilateral pneumothoraces. He was transferred to ICU where he had another cardiopulmonary arrest and had spontaneous return of circulation. The patient remained critically ill, requiring multiple pressors as well as Flolan infusion. He was subsequently extubated on 01/25/2018. His last chest x-ray from yesterday showed basilar airspace disease without any significant effusion or pneumothorax. He had a CT scan of the chest back on 01/16/2018, which showed dense consolidative changes seen in both lung bases with small bilateral chest tubes. Pulmonary Medicine was consulted for questionable malfunctioning left-sided chest tube. When seen, the patient is awake and is currently on 3-liter oxygen with good saturation. Most of the history was obtained from reviewing medical records, as he is a poor historian. CT scan of the brain obtained upon admission, which revealed right parietal region encephalomalacia. EEG on 01/15/2018 showed no epileptic activity. The patient also was found to have elevated troponin and was seen by Dr. Rust. Echocardiogram showed EF of 55% to 60%. PAST MEDICAL HISTORY: Significant for CVA, diabetes mellitus, hypertension, anxiety disorder. PAST SURGICAL HISTORY: No significant past surgical history. FAMILY HISTORY: Coronary artery disease and renal cancer runs in the family. ALLERGIES: ERYTHROMYCIN AND PENICILLIN. SOCIAL HISTORY: Unobtainable. CURRENT MEDICATIONS: 1. Aspirin. 2. Coreg. 3. Hydralazine. 4. Imdur. 5. Levothyroxine. 6. Multivitamins. 7. Thiamine. REVIEW OF SYSTEMS: As per HPI. Rest of the review of systems limited as the patient is a poor historian. PHYSICAL EXAMINATION: GENERAL: A 62-year-old male lying in bed, in no acute respiratory distress. VITAL SIGNS: Afebrile, pulse of 93, blood pressure 160/87, saturation 100% on 3-liter oxygen. HEENT: Atraumatic, normocephalic. Pupils equal and round and reactive to light and accommodation. Extraocular muscles intact. Conjunctivae pink. Nonicteric sclerae. Oral mucosa within normal. NECK: Supple. No JVD, adenopathy or thyromegaly. Trachea in the midline. CARDIOVASCULAR: Regular rate and rhythm. Normal S1, S2. No murmurs, rubs or gallops noted. PULMONARY: Bilateral equal air entry. No rales or wheezing. ABDOMEN: Soft, obese, nontender, nondistended, positive bowel sounds. EXTREMITIES: No cyanosis, clubbing, edema. NEUROLOGIC: No focal sensory deficit. LABORATORY DATA: Sodium 141, potassium 3.6, chloride 101, CO2 of 23, BUN 97, creatinine 5.6, glucose 238. WBC 17.1, hemoglobin 9, hematocrit 26, platelet count 249. RADIOGRAPHIC STUDIES: Chest x-ray from 01/27/2018 showed NG tube, left central line, unchanged basilar airspace disease. IMPRESSION: 1. Respiratory insufficiency, status post extubation on 01/25/2018. 2. Bilateral pneumothoraces on arrival, status post bilateral small bore chest tube placement on 01/15/2018. 3. Acute kidney injury. 4. Leukocytosis. 5. Anemia. 6. Non-ST elevation myocardial infarction. 7. Morbid obesity. 8. Hypertension. 9. Diabetes mellitus. 10. Status post seizures. RECOMMENDATIONS: 1. Continue with oxygen to maintain saturations above 92%. 2. Place on bronchodilators in the form of DuoNeb every 6 hours plus every 2 hours p.r.n. for shortness of breath. 3. Aspiration precautions. 4. CPAP nocturnally daily at bedtime and p.r.n. for respiratory distress. 5. Continue with chest tube currently to 40 cm wall suction. We will clamp left chest tube and obtain chest x-ray. 6. Taper steroids and decrease Solu-Medrol to 40 mg IV daily. 7. Continue with antihypertensive medications for blood pressure control. He is currently on Imdur 20 mg every 8 hours, hydralazine 100 mg q.8 hours, Coreg 6.25 mg b.i.d. The patient is also on aspirin 81 mg daily and Lipitor 20 mg at bedtime. 8. Monitor renal function, I's and O's. Avoid nephrotoxins. Hemodialysis per renal service. The patient is status post hemodialysis today with 4 liters removed. Nutrition support. He is currently on tube feeds via an NG tube, Nepro with a goal rate of 60 mL an hour. 9. The patient is off antibiotics. Monitor for signs of infection, which include fever and WBC. 10. Glycemic control per primary team. 11. Gastrointestinal and deep venous thrombosis prophylaxis. The patient is on Protonix 40 mg IV every 12 hours and heparin subcutaneously respectively. 12. Further recommendations will be based on hospital course. Thank you for this consultation and allowing us to participate in this patient's care. MD GILDA Toney/juan , 12:57 PM , 01:12 PM
--- NOTE | 2018-01-28 13:50 | XR ---
EXAM DATE: 01/28/2018 1:45 PM EST AGE/SEX: 62 years / Male INDICATIONS: Dyspnea. CLINICAL DATA: This is the patient's initial encounter. Patient reports that signs and symptoms have been present for 1 week and indicates a pain score of Nonresponsive. MEDICAL/SURGICAL HISTORY: Stroke. Hypertension. Diabetes mellitus type II. seizures None. COMPARISON: [facility], CHEST 1V SINGLE AP, 01/27/2018. . FINDINGS: There is a nasogastric tube in good position. There is a dialysis catheter which enters from the left jugular. The tip of the catheter overlies the course of the upper SVC. There is a small bore chest tube in place on the left. There is no pneumothorax. There is no signific ant effusion. The overall appearance of the parenchyma similar to previous. The heart is normal in size. CONCLUSION: 1. No pneumothorax identified. 2. Small bore chest tube on the left. 3. There is a dialysis catheter in place. Electronically signed by: Tod Judd MD 01/28/2018 1:49 PM EST
[2018-01-28 14:08] LABS: Albumin 3.9 g/dL (3.4-5.0)
[2018-01-28 14:11] LABS: Total Protein 6.7 g/dL (6.4-8.2)
--- NOTE | 2018-01-28 14:53 | US ---
EXAM DATE: 01/28/2018 2:47 PM EST AGE/SEX: 62 years / Male INDICATIONS: Cerebrovascular accident. CLINICAL DATA: This is the patient's initial encounter. Patient reports that signs and symptoms have been present for 1 day and indicates a pain score of Nonresponsive. MEDICAL/SURGICAL HISTORY: Diabetes. Hypertension. CVA. ETOH abuse. Anxiety. None. COMPARISON: No prior exams available for comparison. VELOCITY PARAMETERS: ICA/CCA Ratio: Right 1.0 , Left 0.69 ICA: Right 102 cm/sec, Left 86 cm/sec CCA: Right 98 cm/sec, Left 125 cm/sec ECA: Right 103 cm/sec, Left 77 cm/sec Vertebral: Right 63 cm/sec antegrade, Left 84 cm/sec antegrade FINDINGS: Right Carotid: No significant plaque is visualized.The waveforms are within normal limits. Left Carotid: No significant plaque is visualized. The waveforms are within normal limits. Other: None. CONCLUSION: 1. Right Internal Carotid Artery: No significant stenosis or atherosclerotic plaque is visualized. 2. Left Internal Carotid Artery: No significant stenosis or atherosclerotic plaque is visualized. Electronically signed by: Tod Judd MD 01/28/2018 2:52 PM EST
--- NOTE | 2018-01-28 16:00 | P.PNID ---
Subjective Remarks: pt has leukocytosis + heavy liquid diarrhea, has dignishield 1 L of liquid stool is presnt afebrile anuric on HD Allergies/Adverse Reactions: Allergies erythromycin base Allergy (Severe, Verified 01/14/18 03:00) Hives penicillin G Allergy (Severe, Verified 01/14/18 03:00) Hives Objective Vital Signs 01/27/18 16:00 01/27/18 17:00 01/27/18 18:00 Temperature Pulse Rate 97 H 96 H 95 H Respiratory Rate 16 19 22 Blood Pressure Pulse Oximetry 01/27/18 19:00 01/27/18 20:00 01/27/18 20:49 Temperature 97.1 F L Pulse Rate 96 H 94 H Respiratory Rate 23 21 Blood Pressure Pulse Oximetry 98 100 98 01/27/18 21:00 01/27/18 22:00 01/27/18 22:29 Temperature Pulse Rate 92 H 93 H 99 H Respiratory Rate 22 21 23 Blood Pressure 100/54 L Pulse Oximetry 98 99 98 01/27/18 23:00 01/27/18 23:01 01/28/18 00:00 Temperature 97.4 F L Pulse Rate 91 H 92 H 83 Respiratory Rate 24 21 29 H Blood Pressure 121/71 126/80 Pulse Oximetry 99 99 99 01/28/18 00:49 01/28/18 01:00 01/28/18 01:01 Temperature Pulse Rate 87 87 Respiratory Rate 18 17 Blood Pressure 155/87 H Pulse Oximetry 98 100 100 01/28/18 01:13 01/28/18 02:00 01/28/18 03:00 Temperature Pulse Rate 86 89 88 Respiratory Rate 20 21 18 Blood Pressure 145/85 H 157/85 H Pulse Oximetry 100 100 99 01/28/18 03:01 01/28/18 04:00 01/28/18 04:02 Temperature 97.6 F Pulse Rate 90 94 H 93 H Respiratory Rate 19 30 H 20 Blood Pressure 141/80 H 139/84 Pulse Oximetry 100 100 100 01/28/18 05:00 01/28/18 06:00 01/28/18 06:20 Temperature Pulse Rate 88 91 H 93 H Respiratory Rate 23 18 17 Blood Pressure 158/83 H 157/83 H 155/83 H Pulse Oximetry 99 100 99 01/28/18 07:00 01/28/18 07:35 01/28/18 08:00 Temperature 97.7 F Pulse Rate 98 H 96 H 96 H Respiratory Rate 19 18 18 Blood Pressure 129/73 142/81 H 141/81 H Pulse Oximetry 99 98 100 01/28/18 08:20 01/28/18 09:00 01/28/18 09:01 Temperature Pulse Rate 90 90 Respiratory Rate 20 20 Blood Pressure 118/76 Pulse Oximetry 98 97 98 01/28/18 10:00 01/28/18 11:00 01/28/18 11:01 Temperature Pulse Rate 91 H 91 H 93 H Respiratory Rate 21 21 21 Blood Pressure 131/83 124/78 Pulse Oximetry 99 98 98 01/28/18 12:00 01/28/18 13:00 01/28/18 14:00 Temperature Pulse Rate 93 H 94 H 96 H Respiratory Rate 20 21 21 Blood Pressure 131/81 130/77 Pulse Oximetry 100 98 94 L 01/28/18 14:01 01/28/18 15:00 01/28/18 15:14 Temperature Pulse Rate 97 H 97 H 95 H Respiratory Rate 21 21 14 Blood Pressure 144/87 H 167/84 H Pulse Oximetry 95 96 Intake & Output 01/27/18 01/28/18 01/28/18 18:59 06:59 18:59 Intake Total 605 / 605 852 / 852 660 / 660 Output Total 200 / 200 808 / 808 4000 / 4000 Balance 405 / 405 44 / 44 -3340 / -3340 Weight 112 kg Intake: IV 605 / 605 250 / 250 660 / 660 Cardene Inj 25 MG In NS Inj 240 500 / 500 250 / 250 250 / 250 ML @ 5 MG/HR 50 mls/hr IV.CONT TITRATE PRN Rx#:[id number] Flexbumin 25% Inj 100 ML @ 60 200 / 200 mls/hr IV.SIG WITH DIALYSIS PRN Rx#:[id number] Keppra Inj 500 MG In NS Inj 100 105 / 105 210 / 210 ML @ 400 mls/hr IV.SIG Q12H HENRY Rx#:[id number] Tube Feeding 502 / 502 Tube Irrigant 100 / 100 Water Bolus Amount 0 / 0 Output: Urine 0 / 0 Stool 200 / 200 800 / 800 Pleural Fluid 0 / 0 Hemodialysis Amount 0 / 0 4000 / 4000 Urine Amount (Catheter) 0 / 0 Indwelling Temp Sensing 0 / 0 Catheter Straight 0 / 0 Chest Tube Drainage #1 Left Pleural 0 / 0 #2 Right Pleural Other: # Incontinent Voids 0 Date of Last Bowel Movement 01/26/18 01/28/18 01/27/18 Lab - Hematology Results 01/27/18 05:10 WBC 17.1 H RBC 2.86 L Hgb 9.0 L Hct 26.8 L MCV 93.5 MCH 31.5 MCHC 33.7 RDW 16.7 Plt Count 249 MPV 9.5 Prelim Diff (Auto) Slide review pending Neut % (Auto) 94.2 H Lymph % (Auto) 1.3 L [place] % (Auto) 4.3 Eos % (Auto) 0.0 Baso % (Auto) 0.2 Neut # (Auto) 16.1 H Lymph # (Auto) 0.2 L [place] # (Auto) 0.7 Eos # (Auto) 0.0 Baso # (Auto) 0.0 WBC Differential Manual diff final Seg Neuts % (Manual) 89 H Band Neuts % (Manual) 3 Lymphocytes % (Manual) 2 L Monocytes % (Manual) 3 Metamyelocytes % (Man) 1 Myelocytes % (Man) 1 H Promyelocytes % (Man) 1 H Abs Neuts (Manual) 16.2 H Differential Comment . Toxic Granulation 1+ H Platelet Estimate Normal Platelet Morphology Normal Lab - Chemistry Results 01/26/18 01/26/18 01/27/18 17:16 23:26 05:10 Sodium Potassium Chloride Carbon Dioxide Anion Gap BUN Creatinine Estimated GFR POC Glucose 243 H 305 H Random Glucose Calcium Phosphorus 5.2 H Magnesium 2.4 Total Bilirubin Direct Bilirubin Indirect Bilirubin AST ALT Alkaline Phosphatase Total Protein Albumin Vitamin B12 01/27/18 01/27/18 01/27/18 05:10 05:17 12:17 Sodium Potassium Chloride Carbon Dioxide Anion Gap BUN Creatinine Estimated GFR POC Glucose 421 H 479 H* Random Glucose Calcium Phosphorus Magnesium Total Bilirubin Direct Bilirubin Indirect Bilirubin AST ALT Alkaline Phosphatase Total Protein Albumin Vitamin B12 1178 H 01/27/18 01/28/18 01/28/18 18:17 01:17 06:22 Sodium Potassium Chloride Carbon Dioxide Anion Gap BUN Creatinine Estimated GFR POC Glucose 346 H 261 H 300 H Random Glucose Calcium Phosphorus Magnesium Total Bilirubin Direct Bilirubin Indirect Bilirubin AST ALT Alkaline Phosphatase Total Protein Albumin Vitamin B12 01/28/18 01/28/18 01/28/18 10:14 12:52 13:33 Sodium 141 Potassium 3.6 Chloride 101 Carbon Dioxide 23.9 Anion Gap 16 H BUN 97 H Creatinine 5.60 H Estimated GFR 10 L POC Glucose 279 H Random Glucose 238 H Calcium 8.7 Phosphorus 4.3 Magnesium Total Bilirubin 1.3 H Direct Bilirubin 0.4 H Indirect Bilirubin 0.9 H AST 31 ALT 92 H Alkaline Phosphatase 152 H Total Protein 6.7 D Albumin 4.4 3.9 Vitamin B12 Imaging: ITS Impressions Cervical Spine CT 01/14/18 21:58 CONCLUSION: 1. No acute fracture or malalignment. 2. Subcutaneous emphysema again noted as well as the known right pneumothorax. Head CT 01/14/18 21:58 CONCLUSION: 1. No acute hemorrhage or mass effect. 2. Stable area of encephalomalacia in the right lateral lobe. . Abdomen X-Ray 01/15/18 00:00 CONCLUSION: 1. No free intraperitoneal air. 2. Residual small pneumothoraces with small chest tubes in place. Abdomen/Bladder Ultrasound 01/16/18 00:00 CONCLUSION: 1. Trace ascites. 2. Negative renal ultrasound Abdomen/Pelvis CT 01/16/18 00:00 CONCLUSION: 1. Minimal free intraperitoneal air. I don't see etiology for such 2. Dense consolidation both lung bases with small bilateral chest tubes 3. Trace pneumothorax on the left. No pneumothorax on the right. 4. Moderate fatty replacement to the liver with prominent gallbladder Chest CT 01/16/18 00:00 . CONCLUSION: 1. Dense consolidation in both lung bases small bore chest tubes evident. 2. Trace pneumothorax on the left 3. No significant fluid. Cervical Spine MRI 01/27/18 00:00 CONCLUSION: 1. No fracture or subluxation seen of the cervical spine but there is edema in the erector spinae muscles, especially on the right at the level of the upper cervical spine. This is nonspecific but presumably related to an acute or subacute strain. Localized early denervation would be conceivable but I don't see any atrophy. 2. There is an age-indeterminate left foraminal disc protrusion at C3/C4 that is probably impinging on the transiting left C4 nerve root. 3. Multilevel degenerative changes that otherwise appear chronic, as described. Associated high-grade foraminal stenosis on the right at C4/C5, bilateral at C5/C6 and C6/C7. No high-grade spinal stenosis demonstrated. Head MRI 01/27/18 00:00 CONCLUSION: 1. Remote right posterior parietal mid convexity infarct. 2. Mild cerebral atrophy with mild periventricular ischemic white matter demyelination. 3. Stable paranasal sinus mucosal disease and mastoiditis. 4. No acute abnormality. Specifically, no acute infarction or hemorrhage. Carotid Doppler Study 01/28/18 00:00 CONCLUSION: 1. Right Internal Carotid Artery: No significant stenosis or atherosclerotic plaque is visualized. 2. Left Internal Carotid Artery: No significant stenosis or atherosclerotic plaque is visualized. Chest X-Ray 01/28/18 12:31 CONCLUSION: 1. No pneumothorax identified. 2. Small bore chest tube on the left. 3. There is a dialysis catheter in place. Physical Exam: GENERAL: awake, minimally interacting SKIN: Warm and dry. EYES: Pupils equal and round. No scleral icterus. No injection or drainage. ENT: No nasal bleeding or discharge. Mucous membranes pink and moist. NECK: Trachea midline. No JVD. + SQ empysema palpable CARDIOVASCULAR: Regular rate and rhythm. RESPIRATORY: No accessory muscle use. Clear to auscultation. Breath sounds equal bilaterally. CTs in place b/l GASTROINTESTINAL: Abdomen soft, no reaction to palpation, +distended. Hepatic and splenic margins not palpable. incontinent of large amount of liquid brown stool MUSCULOSKELETAL: Extremities without clubbing, cyanosis, improved edema. No obvious deformities. NEUROLOGICAL: responsive, seem to make eye contact, but remeins non verbal, not folowing any commands PSYCHIATRIC: unable to assess G&U :minimal urine output Assessment and Plan - Plan Sepsis, septic shock on presentation: resolved Acute VDRF: resolved ARF, anuric Aspiration PNA vs aspiration pneumonitis: resolved Leukocytosis, ? stereoids induced ABX associatedc diarrea, new, r/o C.diff s/p seizure (ETOH withdrawl?) Encephalopathy:: neurologist ff \pneumomediastinum and b/l pneumothoraces: resolved Ethiology of pneumomediastinum likelt traumatic CPR, no viscus perforation Rec's: r/o C.diff chk KUB
--- NOTE | 2018-01-28 16:43 | XR ---
EXAM DATE: 01/28/2018 4:39 PM EST AGE/SEX: 62 years / Male INDICATIONS: Abdominal distention CLINICAL DATA: This is the patient's subsequent encounter. Patient reports that signs and symptoms h ave been present for 4 - 6 days and indicates a pain score of Nonresponsive. MEDICAL/SURGICAL HISTORY: Diabetes. Seizures. Hypertension. CVA None. COMPARISON: [facility], ABDOMEN 1V KUB, 01/15/2018. . FINDINGS: Nasogastric tube coils in the stomach. There is mild gaseous distention of the colon and occasional small bowel loops, nonspecific however potentially adynamic. CONCLUSION: Mild gaseous distention of bowel. Electronically signed by: Dionisio Branham MD 01/28/2018 4:42 PM EST
[2018-01-28] MEDS ORDERED: Insulin Detemir Inj 1,000 UNIT/10 ML Vial SQ SCH (21:00)
[2018-01-29] MEDS: Artificial Tears Opth Drops 15 ML Bottle EACH EYE SCH ×3 (02:37→17:30)
[2018-01-29] MEDS: Oral Hygiene Kit OROPHARYNG SCH ×4 (02:37→17:30)
[2018-01-29] MEDS: Pantoprazole Inj 40 MG Vial IV.PUSH SCH ×2 (02:37→13:57)
[2018-01-29] MEDS: Insulin NovoLIN Regular Correctional Sugar Inj SQ SCH ×4 (02:38→17:30)
[2018-01-29 06:14] LABS: Baso % (Auto) 0.2 % (0.0-2.0); Hematocrit 24.7 % (39.0-51.0); Hemoglobin 8.2 gm/dL (13.0-17.0); Lymph # (Auto) 0.4 th/mm3 (1.0-4.8); Mean Corpuscular HGB Conc 33.3 % (32.0-36.0); Mean Platelet Volume 9.5 fL (7.0-11.0); Mono # (Auto) 1.1 th/mm3 (0.0-0.9); Mono % (Auto) 5.2 % (0.0-8.0); Neut # (Auto) 19.1 th/mm3 (1.8-7.7); Neut % (Auto) 92.6 % (16.0-70.0); Platelet Count 257 th/mm3 (150-450); Red Blood Count 2.66 mil/mm3 (4.50-5.90); Red Cell Distribution Width 16.9 % (11.6-17.2); White Blood Count 20.6 th/mm3 (4.0-11.0)
[2018-01-29] MEDS: Levothyroxine 88 MCG Tablet PO SCH (06:19)
[2018-01-29] MEDS: hydrALAZINE 25 MG Tablet PO SCH ×3 (06:19→21:18)
[2018-01-29] MEDS: Heparin - SQ 10,000 UNITS/ML Vial SQ SCH ×3 (06:19→21:20)
[2018-01-29 06:40] LABS: Albumin 3.6 g/dL (3.4-5.0); Calcium 8.1 mg/dL (8.5-10.1); Carbon Dioxide 23.5 meq/L (21.0-32.0); Potassium 3.5 meq/L (3.5-5.1)
[2018-01-29 06:44] LABS: Phosphorus 7.3 mg/dL (2.5-4.9)
[2018-01-29] MEDS: Chlorhexidine 0.12% Oral Kit 15 ML UDC OROPHARYNG SCH ×2 (07:57→21:18)
[2018-01-29] MEDS: Folic Acid 1 MG Tablet PO SCH (07:59)
[2018-01-29] MEDS: MethylPREDNISolone Sod Succinate Inj 40 MG/ML Vial IV.PUSH SCH (07:59)
[2018-01-29] MEDS: Carvedilol 6.25 MG Tablet PO SCH ×2 (07:59→21:18)
[2018-01-29] MEDS: Senna/Docusate Sodium 8.6/50 MG Tablet PO SCH ×2 (07:59→21:20)
[2018-01-29 08:44] LABS: Lymphocytes 1 % (9-44); Monocytes 3 % (0-8); Platelet Estimate Normal (Normal); Promyelocyte 2 % (0-0)
--- NOTE | 2018-01-29 09:16 | P.PNIM ---
Subjective Interval history: Follow-up for diarrhea, respiratory failure No overnight events. Discussed with nursing, patient is nonverbal, follows some commands. Chest tube removed yesterday. Afebrile, on BiPAP overnight, BG is now in the 190s, blood pressure stable. Moves extremities spontaneously, loose stools, good urine output. Physical Exam Vital signs: Vital Signs 01/28/18 10:00 01/28/18 11:00 01/28/18 11:01 Temperature Pulse Rate 91 H 91 H 93 H Respiratory Rate 21 21 21 Blood Pressure 131/83 124/78 Pulse Oximetry 99 98 98 01/28/18 12:00 01/28/18 13:00 01/28/18 14:00 Temperature Pulse Rate 93 H 94 H 96 H Respiratory Rate 20 21 21 Blood Pressure 131/81 130/77 Pulse Oximetry 100 98 94 L 01/28/18 14:01 01/28/18 15:00 01/28/18 15:14 Temperature Pulse Rate 97 H 97 H 95 H Respiratory Rate 21 21 14 Blood Pressure 144/87 H 167/84 H Pulse Oximetry 95 96 01/28/18 16:00 01/28/18 20:00 01/28/18 20:12 Temperature 98.9 F Pulse Rate 97 H 90 89 Respiratory Rate 21 20 20 Blood Pressure 153/81 H 159/83 H Pulse Oximetry 96 98 98 01/28/18 22:50 01/28/18 23:41 01/29/18 00:00 Temperature 98.7 F Pulse Rate 84 82 Respiratory Rate 15 17 Blood Pressure 160/83 H Pulse Oximetry 99 98 01/29/18 01:55 01/29/18 04:00 01/29/18 04:40 Temperature Pulse Rate 91 H Respiratory Rate 19 Blood Pressure 157/83 H Pulse Oximetry 100 98 99 01/29/18 07:35 Temperature Pulse Rate 92 H Respiratory Rate 16 Blood Pressure Pulse Oximetry 99 Intake & Output 01/28/18 01/29/18 01/29/18 18:59 06:59 18:59 Intake Total 660 / 660 1398 / 1398 Output Total 4100 / 4100 300 / 300 Balance -3440 / -3440 1098 / 1098 Weight 109 kg Intake: IV 660 / 660 Cardene Inj 25 MG In NS Inj 240 250 / 250 ML @ 5 MG/HR 50 mls/hr IV.CONT TITRATE PRN Rx#:[id number] Flexbumin 25% Inj 100 ML @ 60 200 / 200 mls/hr IV.SIG WITH DIALYSIS PRN Rx#:[id number] Keppra Inj 500 MG In NS Inj 100 210 / 210 ML @ 400 mls/hr IV.SIG Q12H HENRY Rx#:[id number] Tube Feeding 998 / 998 Water Bolus Amount 400 / 400 Output: Urine 0 / 0 Stool 100 / 100 300 / 300 Hemodialysis Amount 4000 / 4000 Other: Date of Last Bowel Movement 01/28/18 01/29/18 Narrative: Patient sleeping, awoken when his name is called Pupils equal round reactive, anicteric, pink conjunctivae NG tube in place Left Vas-Cath in place Regular rate and rhythm bilateral clear breath sounds, on BiPAP, otherwise clear. Abdomen soft, distended, no peritonitis. Nontender. Generalized 2+ edema both hands, feet and lower extremities. Awake,? 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 - Urinary Catheter Management Indwelling Temp Sensing Catheter Cath placed during this visit: yes, but has since been removed by the nurse Reason for continuing: Decision to DC catheter Insertion date: 01/14/18 Insertion time: 22:00 Removal date: 01/21/18 Removal time: 18:00 Straight Cath placed during this visit: no Results - Labs CBC & Chem 7: 01/29/18 05:25 01/29/18 05:25 Laboratory Results - last 24 hr 01/28/18 01/28/18 01/28/18 10:14 12:52 13:33 WBC RBC Hgb Hct MCV MCH MCHC RDW Plt Count MPV Prelim Diff (Auto) Neut % (Auto) Lymph % (Auto) [place] % (Auto) Eos % (Auto) Baso % (Auto) Neut # (Auto) Lymph # (Auto) [place] # (Auto) Eos # (Auto) Baso # (Auto) WBC Differential Seg Neuts % (Manual) Lymphocytes % (Manual) Monocytes % (Manual) Promyelocytes % (Man) Abs Neuts (Manual) Differential Comment Platelet Estimate Platelet Morphology Sodium 141 Potassium 3.6 Chloride 101 Carbon Dioxide 23.9 Anion Gap 16 H BUN 97 H Creatinine 5.60 H Estimated GFR 10 L POC Glucose 279 H Random Glucose 238 H Calcium 8.7 Phosphorus 4.3 Total Bilirubin 1.3 H Direct Bilirubin 0.4 H Indirect Bilirubin 0.9 H AST 31 ALT 92 H Alkaline Phosphatase 152 H Total Protein 6.7 D Albumin 4.4 3.9 Stl C.difficile DNA Amp St C. diff Tox Epid 027 01/28/18 01/28/18 01/29/18 16:42 16:44 02:08 WBC RBC Hgb Hct MCV MCH MCHC RDW Plt Count MPV Prelim Diff (Auto) Neut % (Auto) Lymph % (Auto) [place] % (Auto) Eos % (Auto) Baso % (Auto) Neut # (Auto) Lymph # (Auto) [place] # (Auto) Eos # (Auto) Baso # (Auto) WBC Differential Seg Neuts % (Manual) Lymphocytes % (Manual) Monocytes % (Manual) Promyelocytes % (Man) Abs Neuts (Manual) Differential Comment Platelet Estimate Platelet Morphology Sodium Potassium Chloride Carbon Dioxide Anion Gap BUN Creatinine Estimated GFR POC Glucose 300 H 198 H Random Glucose Calcium Phosphorus Total Bilirubin Direct Bilirubin Indirect Bilirubin AST ALT Alkaline Phosphatase Total Protein Albumin Stl C.difficile DNA Amp Negative St C. diff Tox Epid 027 Negative 01/29/18 01/29/18 01/29/18 05:25 05:25 06:12 WBC 20.6 H RBC 2.66 L Hgb 8.2 L Hct 24.7 L MCV 93.0 MCH 31.0 MCHC 33.3 RDW 16.9 Plt Count 257 MPV 9.5 Prelim Diff (Auto) Slide review pending Neut % (Auto) 92.6 H Lymph % (Auto) 2.0 L [place] % (Auto) 5.2 Eos % (Auto) 0.0 Baso % (Auto) 0.2 Neut # (Auto) 19.1 H Lymph # (Auto) 0.4 L [place] # (Auto) 1.1 H Eos # (Auto) 0.0 Baso # (Auto) 0.0 WBC Differential Manual diff final Seg Neuts % (Manual) 94 H Lymphocytes % (Manual) 1 L Monocytes % (Manual) 3 Promyelocytes % (Man) 2 H Abs Neuts (Manual) 19.8 H Differential Comment . Platelet Estimate Normal Platelet Morphology Enlarged H Sodium 140 Potassium 3.5 Chloride 101 Carbon Dioxide 23.5 Anion Gap 16 H BUN 129 H Creatinine 7.36 H Estimated GFR 8 L POC Glucose 196 H Random Glucose 205 H Calcium 8.1 L Phosphorus 7.3 H D Total Bilirubin Direct Bilirubin Indirect Bilirubin AST ALT Alkaline Phosphatase Total Protein Albumin 3.6 Stl C.difficile DNA Amp St C. diff Tox Epid 027 - Imaging Impressions Abdomen X-Ray 01/28/18 00:00 CONCLUSION: Mild gaseous distention of bowel. Carotid Doppler Study 01/28/18 00:00 CONCLUSION: 1. Right Internal Carotid Artery: No significant stenosis or atherosclerotic plaque is visualized. 2. Left Internal Carotid Artery: No significant stenosis or atherosclerotic plaque is visualized. Chest X-Ray 01/28/18 12:31 CONCLUSION: 1. No pneumothorax identified. 2. Small bore chest tube on the left. 3. There is a dialysis catheter in place. Assessment and Plan - Plan 62-year-old white male who was admitted with cardiogenic shock and acute respiratory failure requiring CPR and epinephrine in the field, after being found down at home and being witnessed to possibly have undergone seizure-like activity. Intubation was attempted in the field but were unable to do so, patient was ultimately intubated in the hospital, started on pressors, placed in the ICU on mechanical ventilation. Found to have bilateral pneumothoraces with chest tubes placed, had developed some pneumoperitoneum which surgically deemed might have been a leak from his chest tubes as opposed to an acute surgical abdomen. Patient was started on antibiotics empirically for possible aspiration pneumonia but was ultimately discontinued off of them by infectious disease. Developed rhabdomyolysis with worsening acute renal failure which became sustained, with the patient now undergoing dialysis via a permcath. Ultimately was discontinued off pressors, cardiology deferred heart cath due to renal failure. Patient had difficulty following commands after he was discontinued off of sedation and after extubation. 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 EEG was done which was unremarkable. 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 Repeat head MRI showing no acute changes, remote right CVA, cervical spine MRI showing diffuse disc desiccation but no obvious reasons that would indicate his difficulty in following motor commands. Continue PT, ordering OT and ST. Neurology on board, carotid ultrasound negative for significant stenosis. - on ASA, echo negative for thrombus, ejection fraction 55-60%. Possible seizure -Continue Keppra, EEG negative for epileptiform activity Non-STEMI, Elevated troponin -Cardiology consulted, echocardiogram normal LV function, poor candidate for invasive cardiac evaluation with renal failure and thrombocytopenia. Continue hydralazine, Coreg, isosorbide dinitrate, ASA, lipitor, no intervention at this time. Bilateral pneumothoraces, pneumomediastinum, acute respiratory failure -BL chest tubes placed, pneumothorax resolved, chest tubes removed 01/28/2018, pulmonary on board, likely traumatic etiology. Pulmonary following. Currently on BiPAP, wean to nasal cannula. Pneumoperitoneum with right retroperitoneal gas/gas around the right kidney -Likely secondary to bilateral pneumothoraces with no surgical intervention warranted per general surgery discussion with ED physician Hepatitis secondary to shock, in the background of hepatic steatosis and possible alcohol related cirrhosis -2/2 severe hepatic steatosis likely EtOH cirrhosis given US and MRI findings with fatty liver and trace ascites. LFTs now normalized, hepatic panel negative. -Continue thiamine and folate, on beta-blockers. Hepatic encephalopathy-last ammonia level was 5 days ago, almost normal, patient still has diarrhea with Dignishield in place, decrease lactulose to once a day, recheck ammonia tomorrow. Aspiration PNA vs aspiration pneumonitis: resolved -Leukocytosis, could be steroid induced. Infectious disease following Antibiotic associated diarrea- C diff negative, the patient is also on lactulose. Acute kidney injury now possibly with end-stage renal disease, Rhabdomyolysis -Rhabdomyolysis is improving, recheck CK, nephrology following, dialyzing, no signs of renal improvement, HD on Sun diabetes mellitus hypothyroidism -Hold all oral hypoglycemic agents, Levemir started, increase to 10 units, BG is improving, continue levothyroxine, high-dose sliding scale insulin. Should get better with backing of steroids. Check hemoglobin A1c. Normocytic anemia thrombocytopenia Likely secondary to liver disease, unlikely HIT 2/2 timeframe, Elevated haptoglobin/LDH and peripheral smear , thrombocytopenia better, anemia is stable , restart aspirin , Occult blood positive. Would need further workup when more stable. Persistent leukocytosis -felt to be a leukemoid reaction per ID versus steroid-induced, wean off steroids, switch to oral, we will continue to trend, recheck CBC tomorrow, afebrile, monitor. Blood cultures are negative Cont Tube feeds Heparin for DVT prophylaxis Protonix for GI prophylaxis Discussed with nursing.
--- NOTE | 2018-01-29 10:59 | P.PNPL ---
Subjective Interval history: Patient is lying in bed in NAD. He was on BIPAP overnight. Physical Exam Vital signs: Vital Signs 01/28/18 11:00 01/28/18 11:01 01/28/18 12:00 Temperature Pulse Rate 91 H 93 H 93 H Respiratory Rate 21 21 20 Blood Pressure 124/78 131/81 Pulse Oximetry 98 98 100 01/28/18 13:00 01/28/18 14:00 01/28/18 14:01 Temperature Pulse Rate 94 H 96 H 97 H Respiratory Rate 21 21 21 Blood Pressure 130/77 144/87 H Pulse Oximetry 98 94 L 95 01/28/18 15:00 01/28/18 15:14 01/28/18 16:00 Temperature Pulse Rate 97 H 95 H 97 H Respiratory Rate 21 14 21 Blood Pressure 167/84 H 153/81 H Pulse Oximetry 96 96 01/28/18 20:00 01/28/18 20:12 01/28/18 22:50 Temperature 98.9 F Pulse Rate 90 89 Respiratory Rate 20 20 Blood Pressure 159/83 H Pulse Oximetry 98 98 99 01/28/18 23:41 01/29/18 00:00 01/29/18 01:55 Temperature 98.7 F Pulse Rate 84 82 Respiratory Rate 15 17 Blood Pressure 160/83 H Pulse Oximetry 98 100 01/29/18 04:00 01/29/18 04:40 01/29/18 07:35 Temperature Pulse Rate 91 H 92 H Respiratory Rate 19 16 Blood Pressure 157/83 H Pulse Oximetry 98 99 99 Intake & Output 01/28/18 01/29/18 01/29/18 18:59 06:59 18:59 Intake Total 660 / 660 1398 / 1398 Output Total 4100 / 4100 300 / 300 Balance -3440 / -3440 1098 / 1098 Weight 109 kg Intake: IV 660 / 660 Cardene Inj 25 MG In NS Inj 240 250 / 250 ML @ 5 MG/HR 50 mls/hr IV.CONT TITRATE PRN Rx#:[id number] Flexbumin 25% Inj 100 ML @ 60 200 / 200 mls/hr IV.SIG WITH DIALYSIS PRN Rx#:[id number] Keppra Inj 500 MG In NS Inj 100 210 / 210 ML @ 400 mls/hr IV.SIG Q12H HENRY Rx#:[id number] Tube Feeding 998 / 998 Water Bolus Amount 400 / 400 Output: Urine 0 / 0 Stool 100 / 100 300 / 300 Hemodialysis Amount 4000 / 4000 Other: Date of Last Bowel Movement 01/28/18 01/29/18 - Constitutional no acute distress, obese - Routine HEENT Exam Head: Present: normocephalic, atraumatic Eye: Present: EOMI, PERRL, normal accommodation, conjunctivae pink ENT: Present: mucous membranes moist - Routine Neck Exam Present: supple, full ROM, trachea midline - Routine Respiratory Exam Present: CTA bilaterally - Routine Cardiovascular Exam Present: RRR, S1, S2 - Routine Abdominal Exam Present: soft, normoactive bowel sounds - Routine Extremities Exam Present: full ROM - Routine Neurological Exam Present: altered mental status - Urinary Catheter Management Indwelling Temp Sensing Catheter Cath placed during this visit: yes, but has since been removed by the nurse Reason for continuing: Decision to DC catheter Insertion date: 01/14/18 Insertion time: 22:00 Removal date: 01/21/18 Removal time: 18:00 Straight Cath placed during this visit: no Assessment and Plan - Plan 1. Respiratory insufficiency, status post extubation on 01/25/2018. 2. s/p pneumothoraces on arrival, status post bilateral small bore chest tube placement on 01/15/2018. removed 01/28 3. Acute kidney injury. 4. Leukocytosis. 5. Anemia. 6. NSTEMI 7. Morbid obesity. 8. Hypertension. 9. Diabetes mellitus. 10. s/p seizures. Plan Continue with oxygen to maintain sats >92%. Bronchodilators-DuoNeb Aspiration precautions. BIPAP PRN nocturnally and p.r.n. for respiratory distress. Solu-Medrol to [address] d/diana yesterday. CXR 01/28: No evidence of PTX Nutrition support. on tube feeds via an NG tube, Nepro with a goal rate of 60 mL an hour. off antibiotics. Monitor for signs of infection( fever and WBC). GI and DVT prophylaxis. on Protonix 40 mg IV every 12 hours and heparin sq respectively.
--- NOTE | 2018-01-29 12:22 | P.DIET ---
Nutritional Evaluation Type of nutrition evaluation: follow-up Nutrition consult regarding: Tube Feeding Objective - Diagnosis Seizures/Respiratory Distress/Intubated - Objective Body Mass Index: 34.5 % IBW: 150 Body Weight Used for Calculations: IBW (75.5 kg) Energy Needs - Lower Range (kCal/kg): 30 Energy Needs - Upper Range (kCal/kg): 35 Lower Limit kCal/kg (kCals): 2,264 Upper Limit kCal/kg (kCals): 2,643 Lower Limit Protein Factor (Grams per Kg): 1.2 Upper Limit Protein Factor (Grams per Kg): 1.5 Lower Protein Needs (Protein): 91 Upper Protein Needs (Protein): 113 Dietitian Reviewed in Medical Record: Curent medications, Intake & Output, Labs , Medical history, Tube feeding Diet Order: TF'ing Nepro @ goal rate 60ml/hr Objective Comments: PMH includes: Anxiety, CVA, DM, ETOH Abuse, HTN, Alcohol Abuse Labs include: BUN 129, Cr 7.36, GFR 8, POC glucose 300 300 196 Meds include: Novolin R, Lactulose, Synthroid LBM 01/29, good UOP 1008mL Feeding - Current Tube Feeding Tube Feeding Product: Nepro Tube Feeding Rate: 40 Current kCals Provided by Tube Feedin,584 Current Protein Provided by Tube Feeding (gPRO): 71 Medications That Affect Tube Feeding Run Time: Synthroid Total Time Off: 2 hours Current Free H2O Provided (m/l): 640 Assessment Assessment: Pt is at nutritional risk r/t diagnosis and need for TF'ing. Pt extubated on , now on BiPAP and receiving HD. Continue TF'ing w/Nepro, rec goal rate @ 60ml /hr x 22-hr(TF'ing held for Synthroid 1-hr before and 1-hr after administering med). Pts blood glucose improving. Continue to monitor TF tolerance. Labs/ electrolytes reviewed. Wt changes noted, CBW = 109kg, -4kg since admission. Dietitian following. Recommendations: 1. For TF'ing w/Nepro, Rec goal rate @ 60ml/hr x 22-hr(TF'ing held for Synthroid 1-hr before and 1-hr after administering med) 2. Dietitian following Dietitian to Monitor: Lab values, Electrolytes, Renal labs, Glucose level, Intake & Output, Tube feeding tolerance, Weight change, Medical course
[2018-01-29 13:17] LABS: Hemoglobin A1c 7.5 % (4.3-6.0)
--- NOTE | 2018-01-29 13:17 | P.PNID ---
Subjective Remarks: pt has leukocytosis + heavy liquid diarrhea, has dignishield 1 L of liquid stool is present afebrile anuric on HD WBC remain high C diff negative Antibiotics: none Allergies/Adverse Reactions: Allergies erythromycin base Allergy (Severe, Verified 01/14/18 03:00) Hives penicillin G Allergy (Severe, Verified 01/14/18 03:00) Hives Objective Vital Signs 01/28/18 14:00 01/28/18 14:01 01/28/18 15:00 Temperature Pulse Rate 96 H 97 H 97 H Respiratory Rate 21 21 21 Blood Pressure 144/87 H 167/84 H Pulse Oximetry 94 L 95 96 01/28/18 15:14 01/28/18 16:00 01/28/18 20:00 Temperature 98.9 F Pulse Rate 95 H 97 H 90 Respiratory Rate 14 21 20 Blood Pressure 153/81 H 159/83 H Pulse Oximetry 96 98 01/28/18 20:12 01/28/18 22:50 01/28/18 23:41 Temperature Pulse Rate 89 84 Respiratory Rate 20 15 Blood Pressure Pulse Oximetry 98 99 01/29/18 00:00 01/29/18 01:55 01/29/18 04:00 Temperature 98.7 F Pulse Rate 82 91 H Respiratory Rate 17 19 Blood Pressure 160/83 H 157/83 H Pulse Oximetry 98 100 98 01/29/18 04:40 01/29/18 07:35 01/29/18 11:52 Temperature Pulse Rate 92 H 85 Respiratory Rate 16 16 Blood Pressure Pulse Oximetry 99 99 97 Intake & Output 01/28/18 01/29/18 01/29/18 18:59 06:59 18:59 Intake Total 660 / 660 1398 / 1398 Output Total 4100 / 4100 300 / 300 Balance -3440 / -3440 1098 / 1098 Weight 109 kg Intake: IV 660 / 660 Cardene Inj 25 MG In NS Inj 240 250 / 250 ML @ 5 MG/HR 50 mls/hr IV.CONT TITRATE PRN Rx#:[id number] Flexbumin 25% Inj 100 ML @ 60 200 / 200 mls/hr IV.SIG WITH DIALYSIS PRN Rx#:[id number] Keppra Inj 500 MG In NS Inj 100 210 / 210 ML @ 400 mls/hr IV.SIG Q12H HENRY Rx#:[id number] Tube Feeding 998 / 998 Water Bolus Amount 400 / 400 Output: Urine 0 / 0 Stool 100 / 100 300 / 300 Hemodialysis Amount 4000 / 4000 Other: Date of Last Bowel Movement 01/28/18 01/29/18 Lab - Hematology Results 01/29/18 05:25 WBC 20.6 H RBC 2.66 L Hgb 8.2 L Hct 24.7 L MCV 93.0 MCH 31.0 MCHC 33.3 RDW 16.9 Plt Count 257 MPV 9.5 Prelim Diff (Auto) Slide review pending Neut % (Auto) 92.6 H Lymph % (Auto) 2.0 L Drew % (Auto) 5.2 Eos % (Auto) 0.0 Baso % (Auto) 0.2 Neut # (Auto) 19.1 H Lymph # (Auto) 0.4 L Drew # (Auto) 1.1 H Eos # (Auto) 0.0 Baso # (Auto) 0.0 WBC Differential Manual diff final Seg Neuts % (Manual) 94 H Lymphocytes % (Manual) 1 L Monocytes % (Manual) 3 Promyelocytes % (Man) 2 H Abs Neuts (Manual) 19.8 H Differential Comment . Platelet Estimate Normal Platelet Morphology Enlarged H Lab - Chemistry Results 01/27/18 01/27/18 01/28/18 05:10 18:17 01:17 Sodium Potassium Chloride Carbon Dioxide Anion Gap BUN Creatinine Estimated GFR POC Glucose 346 H 261 H Random Glucose Calcium Phosphorus Total Bilirubin Direct Bilirubin Indirect Bilirubin AST ALT Alkaline Phosphatase Total Protein Albumin Vitamin B12 1178 H 01/28/18 01/28/18 01/28/18 06:22 10:14 12:52 Sodium 141 Potassium 3.6 Chloride 101 Carbon Dioxide 23.9 Anion Gap 16 H BUN 97 H Creatinine 5.60 H Estimated GFR 10 L POC Glucose 300 H 279 H Random Glucose 238 H Calcium 8.7 Phosphorus 4.3 Total Bilirubin Direct Bilirubin Indirect Bilirubin AST ALT Alkaline Phosphatase Total Protein Albumin 4.4 Vitamin B12 01/28/18 01/28/18 01/29/18 13:33 16:42 02:08 Sodium Potassium Chloride Carbon Dioxide Anion Gap BUN Creatinine Estimated GFR POC Glucose 300 H 198 H Random Glucose Calcium Phosphorus Total Bilirubin 1.3 H Direct Bilirubin 0.4 H Indirect Bilirubin 0.9 H AST 31 ALT 92 H Alkaline Phosphatase 152 H Total Protein 6.7 D Albumin 3.9 Vitamin B12 01/29/18 01/29/18 05:25 06:12 Sodium 140 Potassium 3.5 Chloride 101 Carbon Dioxide 23.5 Anion Gap 16 H BUN 129 H Creatinine 7.36 H Estimated GFR 8 L POC Glucose 196 H Random Glucose 205 H Calcium 8.1 L Phosphorus 7.3 H D Total Bilirubin Direct Bilirubin Indirect Bilirubin AST ALT Alkaline Phosphatase Total Protein Albumin 3.6 Vitamin B12 Imaging: ITS Impressions Cervical Spine CT 01/14/18 21:58 CONCLUSION: 1. No acute fracture or malalignment. 2. Subcutaneous emphysema again noted as well as the known right pneumothorax. Head CT 01/14/18 21:58 CONCLUSION: 1. No acute hemorrhage or mass effect. 2. Stable area of encephalomalacia in the right lateral lobe. . Abdomen/Bladder Ultrasound 01/16/18 00:00 CONCLUSION: 1. Trace ascites. 2. Negative renal ultrasound Abdomen/Pelvis CT 01/16/18 00:00 CONCLUSION: 1. Minimal free intraperitoneal air. I don't see etiology for such 2. Dense consolidation both lung bases with small bilateral chest tubes 3. Trace pneumothorax on the left. No pneumothorax on the right. 4. Moderate fatty replacement to the liver with prominent gallbladder Chest CT 01/16/18 00:00 . CONCLUSION: 1. Dense consolidation in both lung bases small bore chest tubes evident. 2. Trace pneumothorax on the left 3. No significant fluid. Cervical Spine MRI 01/27/18 00:00 CONCLUSION: 1. No fracture or subluxation seen of the cervical spine but there is edema in the erector spinae muscles, especially on the right at the level of the upper cervical spine. This is nonspecific but presumably related to an acute or subacute strain. Localized early denervation would be conceivable but I don't see any atrophy. 2. There is an age-indeterminate left foraminal disc protrusion at C3/C4 that is probably impinging on the transiting left C4 nerve root. 3. Multilevel degenerative changes that otherwise appear chronic, as described. Associated high-grade foraminal stenosis on the right at C4/C5, bilateral at C5/C6 and C6/C7. No high-grade spinal stenosis demonstrated. Head MRI 01/27/18 00:00 CONCLUSION: 1. Remote right posterior parietal mid convexity infarct. 2. Mild cerebral atrophy with mild periventricular ischemic white matter demyelination. 3. Stable paranasal sinus mucosal disease and mastoiditis. 4. No acute abnormality. Specifically, no acute infarction or hemorrhage. Abdomen X-Ray 01/28/18 00:00 CONCLUSION: Mild gaseous distention of bowel. Carotid Doppler Study 01/28/18 00:00 CONCLUSION: 1. Right Internal Carotid Artery: No significant stenosis or atherosclerotic plaque is visualized. 2. Left Internal Carotid Artery: No significant stenosis or atherosclerotic plaque is visualized. Chest X-Ray 01/28/18 12:31 CONCLUSION: 1. No pneumothorax identified. 2. Small bore chest tube on the left. 3. There is a dialysis catheter in place. Physical Exam: GENERAL: awake, minimally interacting SKIN: Warm and dry. EYES: Pupils equal and round. No scleral icterus. No injection or drainage. ENT: No nasal bleeding or discharge. Mucous membranes pink and moist. NECK: Trachea midline. No JVD. + SQ empysema palpable CARDIOVASCULAR: Regular rate and rhythm. RESPIRATORY: No accessory muscle use. Clear to auscultation. Breath sounds equal bilaterally. GASTROINTESTINAL: Abdomen soft, no reaction to palpation, +distended. Hepatic and splenic margins not palpable. incontinent of large amount of liquid brown stool MUSCULOSKELETAL: Extremities without clubbing, cyanosis, improved edema. No obvious deformities. NEUROLOGICAL: responsive, seem to make eye contact, but remeins non verbal, not folowing any commands PSYCHIATRIC: unable to assess G&U :minimal urine output Assessment and Plan - Plan Sepsis, septic shock on presentation: resolved Acute VDRF: resolved ARF, anuric Aspiration PNA vs aspiration pneumonitis: resolved Leukocytosis, ? stereoids induced ABX associatedc diarrea, new, r/o C.diff s/p seizure (ETOH withdrawl?) Encephalopathy:: neurologist ff \pneumomediastinum and b/l pneumothoraces: resolved Ethiology of pneumomediastinum likelt traumatic CPR, no viscus perforation Ileus on KUB, C.diff negative, cont with diarrhea Rec's: chk blood clx follow WBC
--- NOTE | 2018-01-29 13:30 | P.PNNP ---
Subjective Interval history: Pt on BiPAP No family at bedside, No neurological changes <Fabiola Macdonald Brent - Last Filed: 01/29/18 18:12> Physical Exam Vital signs: Vital Signs 01/28/18 14:00 01/28/18 14:01 01/28/18 15:00 Temperature Pulse Rate 96 H 97 H 97 H Respiratory Rate 21 21 21 Blood Pressure 144/87 H 167/84 H Pulse Oximetry 94 L 95 96 01/28/18 15:14 01/28/18 16:00 01/28/18 20:00 Temperature 98.9 F Pulse Rate 95 H 97 H 90 Respiratory Rate 14 21 20 Blood Pressure 153/81 H 159/83 H Pulse Oximetry 96 98 01/28/18 20:12 01/28/18 22:50 01/28/18 23:41 Temperature Pulse Rate 89 84 Respiratory Rate 20 15 Blood Pressure Pulse Oximetry 98 99 01/29/18 00:00 01/29/18 01:55 01/29/18 04:00 Temperature 98.7 F Pulse Rate 82 91 H Respiratory Rate 17 19 Blood Pressure 160/83 H 157/83 H Pulse Oximetry 98 100 98 01/29/18 04:40 01/29/18 07:35 01/29/18 11:52 Temperature Pulse Rate 92 H 85 Respiratory Rate 16 16 Blood Pressure Pulse Oximetry 99 99 97 Intake & Output 01/28/18 01/29/18 01/29/18 18:59 06:59 18:59 Intake Total 660 / 660 1398 / 1398 Output Total 4100 / 4100 300 / 300 Balance -3440 / -3440 1098 / 1098 Weight 109 kg Intake: IV 660 / 660 Cardene Inj 25 MG In NS Inj 240 250 / 250 ML @ 5 MG/HR 50 mls/hr IV.CONT TITRATE PRN Rx#:[id number] Flexbumin 25% Inj 100 ML @ 60 200 / 200 mls/hr IV.SIG WITH DIALYSIS PRN Rx#:[id number] Keppra Inj 500 MG In NS Inj 100 210 / 210 ML @ 400 mls/hr IV.SIG Q12H [facility]ENRY Rx#:[id number] Tube Feeding 998 / 998 Water Bolus Amount 400 / 400 Output: Urine 0 / 0 Stool 100 / 100 300 / 300 Hemodialysis Amount 4000 / 4000 Other: Date of Last Bowel Movement 01/28/18 01/29/18 - Constitutional no acute distress - Routine HEENT Exam Head: Present: normocephalic - Routine Neck Exam Present: supple - Routine Respiratory Exam Present: distant breath sounds, diminished air movement - Routine Cardiovascular Exam Present: RRR, S1, S2 - Routine Extremities Exam Present: edema (still with significant generalized edema in extremities) - Routine Neurological Exam Absent: alert - Urinary Catheter Management Indwelling Temp Sensing Catheter Cath placed during this visit: yes, but has since been removed by the nurse Reason for continuing: Decision to DC catheter Insertion date: 01/14/18 Insertion time: 22:00 Removal date: 01/21/18 Removal time: 18:00 Straight Cath placed during this visit: no <Fabiola Macdonald - Last Filed: 01/29/18 18:12> Vital signs: Vital Signs 02/01/18 16:00 02/01/18 17:15 02/01/18 17:16 Temperature 98.2 F 98.7 F 98.7 F Pulse Rate 99 H 95 H 96 H Respiratory Rate 20 20 20 Blood Pressure 156/76 H 119/73 133/77 Pulse Oximetry 98 91 L 91 L 02/01/18 17:30 02/01/18 20:00 02/01/18 22:00 Temperature 98.3 F 98.8 F Pulse Rate 94 H 99 H Respiratory Rate 22 24 Blood Pressure 141/73 H 142/75 H Pulse Oximetry 95 95 94 L 02/01/18 23:15 02/01/18 23:27 02/01/18 23:59 Temperature 98.1 F 98.1 F Pulse Rate 92 H 92 H 84 Respiratory Rate 20 20 Blood Pressure 124/65 Pulse Oximetry 94 L 94 L 02/02/18 03:38 02/02/18 04:00 02/02/18 07:50 Temperature 98.6 F 98.3 F Pulse Rate 87 84 Respiratory Rate 20 20 Blood Pressure 164/83 H 156/79 H Pulse Oximetry 94 L 100 94 L 02/02/18 08:00 Temperature Pulse Rate Respiratory Rate Blood Pressure Pulse Oximetry 96 Intake & Output 02/01/18 02/02/18 02/02/18 18:59 06:59 18:59 Intake Total 768 / 768 1762 / 1762 355 / 355 Output Total 3500 / 3500 Balance 768 / 768 1762 / 1762 -3145 / -3145 Weight 103 kg Intake: IV 105 / 105 355 / 355 NS Inj 250 ML @ 15 mls/hr IV. 250 / 250 SIG ONCE HENRY Rx#:[id number] Keppra Inj 500 MG In NS Inj 100 105 / 105 105 / 105 ML @ 400 mls/hr IV.SIG Q12H HENRY Rx#:[id number] Tube Feeding 663 / 663 462 / 462 Tube Irrigant 100 / 100 Other 400 / 400 Rbc As-3 Leukoreduced Unit 400 / 400 [id number] Intake (Blood Product) Amt 0 / 0 800 / 800 Rbc As-3 Leukoreduced Unit 0 / 0 400 / 400 [id number] Rbc As-3 Leukoreduced Unit 400 / 400 [id number] Output: Hemodialysis Amount 3500 / 3500 Other: # Voids 1 Date of Last Bowel Movement 03/02/18 - Urinary Catheter Management Indwelling Temp Sensing Catheter Cath placed during this visit: no Straight Cath placed during this visit: no <Kd Rudd - Last Filed: 02/02/18 12:39> Assessment and Plan - Assessment (1) Acute renal failure Code(s): N17.9 - Acute kidney failure, unspecified Status: Acute Plan: No sign of renal recovery at this point in time. Plans for HD 01/30 Medications should be adjusted for the patient's estimated GFR if clinically indicated. Avoid agents with significant potential for nephrotoxicity possible including NSAIDs for analgesia, iodine contrast agents. Gadolinium is contraindicated if the GFR is below 30. (2) Alcohol abuse Code(s): F10.10 - Alcohol abuse, uncomplicated Status: Acute (3) Alcohol withdrawal seizure with complication Code(s): F10.239 - Alcohol dependence with withdrawal, unspecified; R56.9 - Unspecified convulsions Status: Acute (4) Rhabdomyolysis Code(s): M62.82 - Rhabdomyolysis Status: Acute Plan: Related to previous seizure. <Fabiola Macdonald - Last Filed: 01/29/18 18:12> - Assessment (1) Acute renal failure Code(s): N17.9 - Acute kidney failure, unspecified Status: Acute (2) Alcohol abuse Code(s): F10.10 - Alcohol abuse, uncomplicated Status: Acute (3) Alcohol withdrawal seizure with complication Code(s): F10.239 - Alcohol dependence with withdrawal, unspecified; R56.9 - Unspecified convulsions Status: Acute (4) Rhabdomyolysis Code(s): M62.82 - Rhabdomyolysis Status: Acute - Attending Attestation The exam, history, and the medical decision-making described in the above note were completed with the assistance of the ISIDRA. I reviewed and agree with the findings presented. <Kd Rudd - Last Filed: 02/02/18 12:39>
[2018-01-29] MEDS: Insulin Detemir Inj 1,000 UNIT/10 ML Vial SQ SCH (21:19)
[2018-01-30] MEDS: Artificial Tears Opth Drops 15 ML Bottle EACH EYE SCH ×3 (02:18→17:31)
[2018-01-30] MEDS: Oral Hygiene Kit OROPHARYNG SCH ×4 (02:18→17:30)
[2018-01-30] MEDS: Pantoprazole Inj 40 MG Vial IV.PUSH SCH ×2 (02:19→17:31)
[2018-01-30] MEDS: Insulin NovoLIN Regular Correctional Sugar Inj SQ SCH ×4 (02:26→17:30)
[2018-01-30 05:24] LABS: Baso % (Auto) 0.2 % (0.0-2.0); Eos # (Auto) 0.1 th/mm3 (0.0-0.4); Eos % (Auto) 0.4 % (0.0-4.0); Hematocrit 22.9 % (39.0-51.0); Hemoglobin 7.7 gm/dL (13.0-17.0); Lymph # (Auto) 0.4 th/mm3 (1.0-4.8); Lymph % (Auto) 1.6 % (9.0-44.0); Mean Corpuscular HGB Conc 33.7 % (32.0-36.0); Mean Corpuscular Hemoglobin 30.9 pg (27.0-34.0); Mean Corpuscular Volume 91.8 fL (80.0-100.0); Mean Platelet Volume 8.9 fL (7.0-11.0); Mono # (Auto) 0.9 th/mm3 (0.0-0.9); Mono % (Auto) 3.8 % (0.0-8.0); Platelet Count 256 th/mm3 (150-450); Red Cell Distribution Width 16.6 % (11.6-17.2); White Blood Count 24.5 th/mm3 (4.0-11.0)
[2018-01-30] MEDS: hydrALAZINE 25 MG Tablet PO SCH ×3 (05:33→21:23)
[2018-01-30] MEDS: Heparin - SQ 10,000 UNITS/ML Vial SQ SCH ×3 (05:34→21:23)
[2018-01-30] MEDS: Levothyroxine 88 MCG Tablet PO SCH (05:34)
[2018-01-30 05:53] LABS: Carbon Dioxide 20.7 meq/L (21.0-32.0)
[2018-01-30 06:18] LABS: Albumin 3.3 g/dL (3.4-5.0); Calcium 7.4 mg/dL (8.5-10.1); Phosphorus 8.4 mg/dL (2.5-4.9); Potassium 3.5 meq/L (3.5-5.1)
[2018-01-30 08:14] LABS: Eosinophils 2 % (0-4); Lymphocytes 1 % (9-44); Monocytes 1 % (0-8); Myelocytes 2 % (0-0)
[2018-01-30 08:15] LABS: Platelet Estimate Normal (Normal); Platelet Morphology Normal (Normal)
[2018-01-30] MEDS: Chlorhexidine 0.12% Oral Kit 15 ML UDC OROPHARYNG SCH ×2 (08:42→21:23)
[2018-01-30] MEDS: Carvedilol 6.25 MG Tablet PO SCH ×2 (08:43→21:23)
[2018-01-30] MEDS: Folic Acid 1 MG Tablet PO SCH (08:43)
[2018-01-30] MEDS: predniSONE 20 MG Tablet PO SCH (08:43)
[2018-01-30] MEDS: Senna/Docusate Sodium 8.6/50 MG Tablet PO SCH ×2 (08:44→21:25)
--- NOTE | 2018-01-30 10:08 | P.PNNP ---
Subjective Interval history: Awake but nonverbal. Physical Exam Vital signs: Vital Signs 01/29/18 11:00 01/29/18 11:01 01/29/18 11:51 Temperature Pulse Rate 86 84 Respiratory Rate 20 18 Blood Pressure 159/84 H Pulse Oximetry 97 98 97 01/29/18 11:52 01/29/18 12:00 01/29/18 12:01 Temperature Pulse Rate 85 84 86 Respiratory Rate 16 23 Blood Pressure 151/88 H Pulse Oximetry 97 98 98 01/29/18 13:00 01/29/18 13:01 01/29/18 14:00 Temperature Pulse Rate 83 84 82 Respiratory Rate 24 21 20 Blood Pressure 168/87 H Pulse Oximetry 98 98 98 01/29/18 14:01 01/29/18 15:00 01/29/18 15:01 Temperature Pulse Rate 87 92 H 92 H Respiratory Rate 24 Blood Pressure 169/82 H 153/79 H Pulse Oximetry 98 95 95 01/29/18 16:00 01/29/18 16:01 01/29/18 16:25 Temperature Pulse Rate 94 H 93 H Respiratory Rate 22 19 Blood Pressure 155/84 H Pulse Oximetry 97 97 96 01/29/18 17:00 01/29/18 17:01 01/29/18 18:00 Temperature Pulse Rate 95 H 95 H 93 H Respiratory Rate 23 25 H 32 H Blood Pressure 169/87 H Pulse Oximetry 97 97 98 01/29/18 18:01 01/29/18 19:00 01/29/18 19:01 Temperature Pulse Rate 94 H 94 H 94 H Respiratory Rate 27 H 22 23 Blood Pressure 166/89 H 166/86 H Pulse Oximetry 98 98 98 01/29/18 19:40 01/29/18 19:44 01/29/18 20:00 Temperature Pulse Rate 91 H 90 Respiratory Rate 20 26 H Blood Pressure Pulse Oximetry 98 100 01/29/18 20:01 01/29/18 21:00 01/29/18 21:01 Temperature Pulse Rate 91 H 90 90 Respiratory Rate 23 24 25 H Blood Pressure 161/83 H 170/81 H Pulse Oximetry 100 98 98 01/29/18 22:00 01/29/18 22:01 01/29/18 23:00 Temperature Pulse Rate 93 H 92 H 83 Respiratory Rate 23 22 24 Blood Pressure 138/77 Pulse Oximetry 97 98 97 01/29/18 23:01 01/30/18 00:00 01/30/18 00:01 Temperature 98.1 F Pulse Rate 82 85 84 Respiratory Rate 24 27 H 21 Blood Pressure 152/79 H 153/80 H 153/80 H Pulse Oximetry 96 99 99 01/30/18 00:14 01/30/18 01:00 01/30/18 01:01 Temperature Pulse Rate 85 89 88 Respiratory Rate 20 24 23 Blood Pressure 160/81 H Pulse Oximetry 99 99 01/30/18 01:13 01/30/18 02:00 01/30/18 02:01 Temperature Pulse Rate 90 90 Respiratory Rate 23 26 H Blood Pressure 166/85 H Pulse Oximetry 99 98 98 01/30/18 03:00 01/30/18 03:01 01/30/18 04:00 Temperature 98.4 F Pulse Rate 91 H 89 91 H Respiratory Rate 27 H 26 H 27 H Blood Pressure 189/92 H 161/83 H Pulse Oximetry 99 99 99 01/30/18 04:01 01/30/18 04:35 01/30/18 05:00 Temperature Pulse Rate 92 H 92 H Respiratory Rate 25 H 23 Blood Pressure 161/83 H Pulse Oximetry 99 100 100 01/30/18 05:01 01/30/18 05:42 01/30/18 06:00 Temperature Pulse Rate 92 H 91 H 97 H Respiratory Rate 19 24 25 H Blood Pressure 170/85 H Pulse Oximetry 100 98 01/30/18 06:01 01/30/18 07:00 01/30/18 08:00 Temperature 97.9 F Pulse Rate 96 H 96 H 97 H Respiratory Rate 26 H 22 23 Blood Pressure 148/81 H 163/86 H 168/82 H Pulse Oximetry 98 98 99 01/30/18 08:01 01/30/18 09:00 01/30/18 09:01 Temperature Pulse Rate 98 H 98 H 98 H Respiratory Rate 22 34 H 22 Blood Pressure 168/82 H 154/86 H Pulse Oximetry 99 98 99 Intake & Output 01/29/18 01/30/18 01/30/18 18:59 06:59 18:59 Intake Total 105 / 105 1003 / 1003 Output Total 200 / 200 4108 / 4108 Balance -95 / -95 -3105 / -3105 Weight 110 kg Intake: IV 105 / 105 105 / 105 Keppra Inj 500 MG In NS Inj 100 105 / 105 105 / 105 ML @ 400 mls/hr IV.SIG Q12H [facility] Rx#:[id number] Tube Feeding 638 / 638 Tube Irrigant 60 / 60 Water Bolus Amount 200 / 200 Output: Urine 0 / 0 Stool 200 / 200 100 / 100 Pleural Fluid 0 / 0 Hemodialysis Amount 4000 / 4000 Urine Amount (Catheter) 0 / 0 Indwelling Temp Sensing 0 / 0 Catheter Straight 0 / 0 Chest Tube Drainage #1 Left Pleural 0 / 0 #2 Right Pleural Other: # Incontinent Voids 0 Date of Last Bowel Movement 01/29/18 01/28/18 01/28/18 Narrative: GENERAL: Not in respiratory distress. SKIN: Warm and dry. HEAD: Normocephalic. EYES: No scleral icterus. No injection or drainage. NECK: Supple, trachea midline. No JVD or lymphadenopathy. CARDIOVASCULAR: Regular rate and rhythm without murmurs, gallops, or rubs. RESPIRATORY: Breath sounds equal bilaterally. No accessory muscle use. GASTROINTESTINAL: Abdomen soft, non-tender, nondistended. MUSCULOSKELETAL: No cyanosis, 1+ pitting edema lower legs. - Urinary Catheter Management Indwelling Temp Sensing Catheter Cath placed during this visit: yes, but has since been removed by the nurse Reason for continuing: Decision to DC catheter Insertion date: 01/14/18 Insertion time: 22:00 Removal date: 01/21/18 Removal time: 18:00 Straight Cath placed during this visit: no Assessment and Plan - Assessment (1) Acute renal failure Code(s): N17.9 - Acute kidney failure, unspecified Status: Acute Plan: No sign of renal recovery at this point in time. Continue dialytic support. Consideration will be given to replacing Vas-Cath with PermCath next week if no improvement. Medications should be adjusted for the patient's estimated GFR if clinically indicated. Avoid agents with significant potential for nephrotoxicity possible including NSAIDs for analgesia, iodine contrast agents. Gadolinium is contraindicated if the GFR is below 30. (2) Alcohol abuse Code(s): F10.10 - Alcohol abuse, uncomplicated Status: Acute (3) Alcohol withdrawal seizure with complication Code(s): F10.239 - Alcohol dependence with withdrawal, unspecified; R56.9 - Unspecified convulsions Status: Acute (4) Rhabdomyolysis Code(s): M62.82 - Rhabdomyolysis Status: Acute Plan: Related to previous seizure.
--- NOTE | 2018-01-30 11:29 | P.PNPL ---
Subjective Interval history: Patient is on BIPAP 10/5 with 30% FIO2. Afebrile. Physical Exam Vital signs: Vital Signs 01/29/18 11:51 01/29/18 11:52 01/29/18 12:00 Temperature Pulse Rate 85 84 Respiratory Rate 16 Blood Pressure Pulse Oximetry 97 97 98 01/29/18 12:01 01/29/18 13:00 01/29/18 13:01 Temperature Pulse Rate 86 83 84 Respiratory Rate 23 24 21 Blood Pressure 151/88 H 168/87 H Pulse Oximetry 98 98 98 01/29/18 14:00 01/29/18 14:01 01/29/18 15:00 Temperature Pulse Rate 82 87 92 H Respiratory Rate 20 24 Blood Pressure 169/82 H Pulse Oximetry 98 98 95 01/29/18 15:01 01/29/18 16:00 01/29/18 16:01 Temperature Pulse Rate 92 H 94 H 93 H Respiratory Rate 22 19 Blood Pressure 153/79 H 155/84 H Pulse Oximetry 95 97 97 01/29/18 16:25 01/29/18 17:00 01/29/18 17:01 Temperature Pulse Rate 95 H 95 H Respiratory Rate 23 25 H Blood Pressure 169/87 H Pulse Oximetry 96 97 97 01/29/18 18:00 01/29/18 18:01 01/29/18 19:00 Temperature Pulse Rate 93 H 94 H 94 H Respiratory Rate 32 H 27 H 22 Blood Pressure 166/89 H Pulse Oximetry 98 98 98 01/29/18 19:01 01/29/18 19:40 01/29/18 19:44 Temperature Pulse Rate 94 H 91 H Respiratory Rate 23 20 Blood Pressure 166/86 H Pulse Oximetry 98 98 01/29/18 20:00 01/29/18 20:01 01/29/18 21:00 Temperature Pulse Rate 90 91 H 90 Respiratory Rate 26 H 23 24 Blood Pressure 161/83 H Pulse Oximetry 100 100 98 01/29/18 21:01 01/29/18 22:00 01/29/18 22:01 Temperature Pulse Rate 90 93 H 92 H Respiratory Rate 25 H 23 22 Blood Pressure 170/81 H 138/77 Pulse Oximetry 98 97 98 01/29/18 23:00 01/29/18 23:01 01/30/18 00:00 Temperature 98.1 F Pulse Rate 83 82 85 Respiratory Rate 24 24 27 H Blood Pressure 152/79 H 153/80 H Pulse Oximetry 97 96 99 01/30/18 00:01 01/30/18 00:14 01/30/18 01:00 Temperature Pulse Rate 84 85 89 Respiratory Rate 21 20 24 Blood Pressure 153/80 H Pulse Oximetry 99 99 01/30/18 01:01 01/30/18 01:13 01/30/18 02:00 Temperature Pulse Rate 88 90 Respiratory Rate 23 23 Blood Pressure 160/81 H Pulse Oximetry 99 99 98 01/30/18 02:01 01/30/18 03:00 01/30/18 03:01 Temperature Pulse Rate 90 91 H 89 Respiratory Rate 26 H 27 H 26 H Blood Pressure 166/85 H 189/92 H Pulse Oximetry 98 99 99 01/30/18 04:00 01/30/18 04:01 01/30/18 04:35 Temperature 98.4 F Pulse Rate 91 H 92 H Respiratory Rate 27 H 25 H Blood Pressure 161/83 H 161/83 H Pulse Oximetry 99 99 100 01/30/18 05:00 01/30/18 05:01 01/30/18 05:42 Temperature Pulse Rate 92 H 92 H 91 H Respiratory Rate 23 19 24 Blood Pressure 170/85 H Pulse Oximetry 100 100 01/30/18 06:00 01/30/18 06:01 01/30/18 07:00 Temperature Pulse Rate 97 H 96 H 96 H Respiratory Rate 25 H 26 H 22 Blood Pressure 148/81 H 163/86 H Pulse Oximetry 98 98 98 01/30/18 08:00 01/30/18 08:01 01/30/18 09:00 Temperature 97.9 F Pulse Rate 97 H 98 H 98 H Respiratory Rate 23 22 34 H Blood Pressure 168/82 H 168/82 H Pulse Oximetry 99 99 98 01/30/18 09:01 Temperature Pulse Rate 98 H Respiratory Rate 22 Blood Pressure 154/86 H Pulse Oximetry 99 Intake & Output 01/29/18 01/30/18 01/30/18 18:59 06:59 18:59 Intake Total 105 / 105 1003 / 1003 Output Total 200 / 200 4108 / 4108 Balance -95 / -95 -3105 / -3105 Weight 110 kg Intake: IV 105 / 105 105 / 105 Keppra Inj 500 MG In NS Inj 100 105 / 105 105 / 105 ML @ 400 mls/hr IV.SIG Q12H [facility] Rx#:[id number] Tube Feeding 638 / 638 Tube Irrigant 60 / 60 Water Bolus Amount 200 / 200 Output: Urine 0 / 0 Stool 200 / 200 100 / 100 Pleural Fluid 0 / 0 Hemodialysis Amount 4000 / 4000 Urine Amount (Catheter) 0 / 0 Indwelling Temp Sensing 0 / 0 Catheter Straight 0 / 0 Chest Tube Drainage #1 Left Pleural 0 / 0 #2 Right Pleural Other: # Incontinent Voids 0 Date of Last Bowel Movement 01/29/18 01/28/18 01/28/18 - Constitutional no acute distress, morbidly obese - Routine HEENT Exam Head: Present: normocephalic, atraumatic Eye: Present: EOMI, PERRL, normal accommodation, conjunctivae pink ENT: Present: mucous membranes moist - Routine Neck Exam Present: supple, full ROM, trachea midline - Routine Respiratory Exam Present: CTA bilaterally - Routine Cardiovascular Exam Present: RRR, S1, S2 - Routine Abdominal Exam Present: soft, normoactive bowel sounds - Routine Extremities Exam Present: pulses intact - Routine Skin Exam Present: intact - Routine Neurological Exam Present: altered mental status - Urinary Catheter Management Indwelling Temp Sensing Catheter Cath placed during this visit: yes, but has since been removed by the nurse Reason for continuing: Decision to DC catheter Insertion date: 01/14/18 Insertion time: 22:00 Removal date: 01/21/18 Removal time: 18:00 Straight Cath placed during this visit: no Assessment and Plan - Plan 1. Respiratory insufficiency, status post extubation on 01/25/2018. 2. s/p pneumothoraces on arrival, status post bilateral small bore chest tube placement on 01/15/2018. removed 01/28 3. Acute kidney injury. 4. Leukocytosis. 5. Anemia. 6. NSTEMI 7. Morbid obesity. 8. Hypertension. 9. Diabetes mellitus. 10. s/p seizures. Plan Continue with oxygen to maintain sats >92%. Bronchodilators-DuoNeb Aspiration precautions. BIPAP PRN nocturnally and p.r.n. for respiratory distress. Check ABG Continue Prednisone 20mg daily CXR 01/28: No evidence of PTX, CT d/diana 01/29 Nutrition support. on tube feeds via an NG tube, Nepro with a goal rate of 60 mL an hour. off antibiotics. Monitor for signs of infection( fever and WBC). ID is following GI and DVT prophylaxis. on Protonix 40 mg IV every 12 hours and heparin sq respectively.
[2018-01-30 11:48] LABS: ABG Base Excess -4.6 mmol/L (-2-2); ABG PCO2 31 mmHg (38-42); ABG PO2 90 mmHG (61-120)
--- NOTE | 2018-01-30 17:11 | P.PNIM ---
Subjective Interval history: 62-year-old male patient presents because he was found down by family, on evaluation by EMS he had notable seizures, and they had tried Versed without success, he was vomiting dark material. They tried to intubate him for airway protection, but were unable to intubate him. However, the seizures had stopped at that point. He was obtunded in the ER and was intubated by ED attending. Shortly after intubation patient lost his pulses and CPR was initiated. He has regained spontaneous circulation after 2 cycles of CPR and injections of epinephrine. There was significant subcutaneous emphysema noticed and the patient was rushed to CT for the CT of the head chest and abdomen that showed large bilateral pneumothoraces, as well as free air in peritoneal cavity. Bilateral chest tubes were placed immediately in the emergency department. The free air in the peritoneum with was discussed with the surgeon director television news Dr. Jimenez. It was felt the air in abdominal cavity is more likely leak from the chest cavity from bilateral tension pneumothoraces and observation without emergent surgical intervention was recommended. The patient was transferred to ICU where he suffered another cardiac arrest. He has regained again spontaneous circulation post 2 cycles of CPR, 2 A of sodium bicarb and 2 A of epinephrine. The patient's was updated about the critical condition at the bedside. 01/15: Patient remains critically ill on max dose of norepinephrine, vasopressin , and epinephrine. His oxygenation overnight has somehow improved with Flolan infusion, however still requiring aggressive APRV mode of ventilation. 01/16: Off all vasopressors. Oxygenation stable. Switch from AP RV to UT VC. Will attempt MRI brain due to neglect and left sided weakness exam. CT thorax with oral contrast to rule out esophageal perforation. Recheck abdomen pelvis today. Remains on fluconazole, piperacillin/tazobactam and, vancomycin infectious disease. Heparin drip discontinued secondary to acute drop in platelets. Fibrinogen pending. Haptoglobin LDH and smear pending. 01/17: Afebrile. Remains off all vasopressors. Minimal urine output overnight. Plan for hemodialysis today once platelets arrived. Minimal output from chest tubes bilaterally. FiO2 down to 40%. PEEP down to 10. 01/18: Afebrile. -3.5 L with hemodialysis today. Off all vasopressors. Will attempt sedation vacation later on this morning. FiO2 down to 40%. PEEP down to 5. 01/19: Bradycardic. Will attempt to exchange bite block today. Minimal output from chest tubes. Hemodialysis ongoing currently. 01/20: Remains bradycardic. Beta-cristian has been removed. Minimal output from chest tubes. Afebrile. Will attempt to wean ventilator using dexmedetomidine drip. Subjective 01/21: Currently on dexmedetomidine for vent weaning. Tolerating hemodialysis. More arousable. Looking around but not following commands. Positive BM. Tolerating tube feeding. 01/22: CPAP trials initiated this a.m. The patient is awake but does not follow any commands. CPAP trials continue noted chest x-ray concerning for persistent bilateral pulmonary opacities. We will obtain SBT today. 01/23: Patient currently undergoing hemodialysis plan for 4 L removal of fluid. The patient was placed on a rate last night CPAP trial was reinitiated at 6 AM. Plan to continue CPAP throughout the evening. Will attempt SBT trial today if possible. Patient tolerating tube feeds. Bilateral chest tube remain on suction minimal output. 01/24: No change in neurological status. The patient was removed from CPAP trials last evening and placed back on a rate during the night CPAP trials were reinitiated today. Patient's at bedside, provided medical status update. Chest x-ray remains unchanged .Plan for SBT reevaluation. 01/25: Afebrile. No change in neurological status. Patient has remained on CPAP throughout the night 12/07. SBT trials on 12/07 appear adequate. Patient currently on CPAP trials 07/07 with a FiO2 of 35%. Bilateral chest tubes in situ continue on suction minimal output. Day 11 of ETT plan for trial of extubation this afternoon. Today chest x-ray noted slight improvement. 01/26: The patient was successfully extubated yesterday no change in neurological status. Formal swallow study pending. The patient remains with NG tube infusing Nepro no residuals per persistent leukocytosis noted. Bilateral chest tubes remain at 40 cm wall suction, minimal output. 01-27 TRANSFERRED TO OUR SERVICE Follow-up for cardiac arrest, cardiogenic shock, renal failure, acute neurological deficits. Nursing denies any acute changes overnight. Nursing still maintains that the patient is partially understanding words, unable to respond to motor commands with the left side of his body. He is on a low rate of Cardene drip at this time for hypertension. - Nursing reports the patient's blood sugars are reaching the 400s with the tube feeds in place, was successfully weaned off of Cardene drip earlier. Thinks that the left-sided chest tube is not necessarily working at this time. Otherwise no acute deterioration. 01-29 Follow-up for diarrhea, respiratory failure No overnight events. Discussed with nursing, patient is nonverbal, follows some commands. Chest tube removed yesterday. Afebrile, on BiPAP overnight, BG is now in the 190s, blood pressure stable. Moves extremities spontaneously, loose stools, good urine output. 01-30 HAD HD ON SUN/SUN/SUNDAY PATIENT MOVES ALL 4 LIMBS IS NONVERBAL NOT FOLLOWING ANY COMMAND FOR ME YOGA COORDINATOR WILL GET PALLIATIVE CARE ON CASE AM LABS STILL FLUID OVERLOADED Physical Exam Vital signs: Vital Signs 01/29/18 17:00 01/29/18 17:01 01/29/18 18:00 Temperature Pulse Rate 95 H 95 H 93 H Respiratory Rate 23 25 H 32 H Blood Pressure 169/87 H Pulse Oximetry 97 97 98 01/29/18 18:01 01/29/18 19:00 01/29/18 19:01 Temperature Pulse Rate 94 H 94 H 94 H Respiratory Rate 27 H 22 23 Blood Pressure 166/89 H 166/86 H Pulse Oximetry 98 98 98 01/29/18 19:40 01/29/18 19:44 01/29/18 20:00 Temperature Pulse Rate 91 H 90 Respiratory Rate 20 26 H Blood Pressure Pulse Oximetry 98 100 01/29/18 20:01 01/29/18 21:00 01/29/18 21:01 Temperature Pulse Rate 91 H 90 90 Respiratory Rate 23 24 25 H Blood Pressure 161/83 H 170/81 H Pulse Oximetry 100 98 98 01/29/18 22:00 01/29/18 22:01 01/29/18 23:00 Temperature Pulse Rate 93 H 92 H 83 Respiratory Rate 23 22 24 Blood Pressure 138/77 Pulse Oximetry 97 98 97 01/29/18 23:01 01/30/18 00:00 01/30/18 00:01 Temperature 98.1 F Pulse Rate 82 85 84 Respiratory Rate 24 27 H 21 Blood Pressure 152/79 H 153/80 H 153/80 H Pulse Oximetry 96 99 99 01/30/18 00:14 01/30/18 01:00 01/30/18 01:01 Temperature Pulse Rate 85 89 88 Respiratory Rate 20 24 23 Blood Pressure 160/81 H Pulse Oximetry 99 99 01/30/18 01:13 01/30/18 02:00 01/30/18 02:01 Temperature Pulse Rate 90 90 Respiratory Rate 23 26 H Blood Pressure 166/85 H Pulse Oximetry 99 98 98 01/30/18 03:00 01/30/18 03:01 01/30/18 04:00 Temperature 98.4 F Pulse Rate 91 H 89 91 H Respiratory Rate 27 H 26 H 27 H Blood Pressure 189/92 H 161/83 H Pulse Oximetry 99 99 99 01/30/18 04:01 01/30/18 04:35 01/30/18 05:00 Temperature Pulse Rate 92 H 92 H Respiratory Rate 25 H 23 Blood Pressure 161/83 H Pulse Oximetry 99 100 100 01/30/18 05:01 01/30/18 05:42 01/30/18 06:00 Temperature Pulse Rate 92 H 91 H 97 H Respiratory Rate 19 24 25 H Blood Pressure 170/85 H Pulse Oximetry 100 98 01/30/18 06:01 01/30/18 07:00 01/30/18 08:00 Temperature 97.9 F Pulse Rate 96 H 96 H 97 H Respiratory Rate 26 H 22 23 Blood Pressure 148/81 H 163/86 H 168/82 H Pulse Oximetry 98 98 99 01/30/18 08:01 01/30/18 09:00 01/30/18 09:01 Temperature Pulse Rate 98 H 98 H 98 H Respiratory Rate 22 34 H 22 Blood Pressure 168/82 H 154/86 H Pulse Oximetry 99 98 99 01/30/18 10:00 01/30/18 10:01 01/30/18 11:00 Temperature Pulse Rate 86 85 83 Respiratory Rate 24 22 19 Blood Pressure 144/74 H Pulse Oximetry 98 98 98 01/30/18 11:01 01/30/18 12:00 01/30/18 12:01 Temperature 98.2 F Pulse Rate 84 88 91 H Respiratory Rate 22 26 H 19 Blood Pressure 155/80 H 166/91 H 166/91 H Pulse Oximetry 98 99 99 01/30/18 12:28 01/30/18 12:29 01/30/18 13:00 Temperature Pulse Rate 93 H 94 H Respiratory Rate 20 31 H Blood Pressure Pulse Oximetry 96 97 01/30/18 13:01 01/30/18 14:00 01/30/18 14:46 Temperature Pulse Rate 97 H 101 H 102 H Respiratory Rate 22 23 23 Blood Pressure 131/77 136/84 125/93 H Pulse Oximetry 97 97 98 01/30/18 15:00 01/30/18 15:01 01/30/18 15:15 Temperature Pulse Rate 102 H 101 H 104 H Respiratory Rate 24 25 H 23 Blood Pressure 129/85 131/85 Pulse Oximetry 98 98 98 01/30/18 15:31 01/30/18 15:45 01/30/18 16:00 Temperature 97.4 F L Pulse Rate 103 H 102 H 103 H Respiratory Rate 25 H 24 25 H Blood Pressure 112/79 113/74 122/86 Pulse Oximetry 99 99 99 01/30/18 16:01 01/30/18 16:15 Temperature Pulse Rate 103 H 109 H Respiratory Rate 25 H 25 H Blood Pressure 122/86 117/73 Pulse Oximetry 99 98 Intake & Output 01/29/18 01/30/18 01/30/18 18:59 06:59 18:59 Intake Total 105 / 105 1003 / 1003 Output Total 200 / 200 4108 / 4108 Balance -95 / -95 -3105 / -3105 Weight 110 kg Intake: IV 105 / 105 105 / 105 Keppra Inj 500 MG In NS Inj 100 105 / 105 105 / 105 ML @ 400 mls/hr IV.SIG Q12H [facility]RY Rx#:[id number] Tube Feeding 638 / 638 Tube Irrigant 60 / 60 Water Bolus Amount 200 / 200 Output: Urine 0 / 0 Stool 200 / 200 100 / 100 Pleural Fluid 0 / 0 Hemodialysis Amount 4000 / 4000 Urine Amount (Catheter) 0 / 0 Indwelling Temp Sensing 0 / 0 Catheter Straight 0 / 0 Chest Tube Drainage #1 Left Pleural 0 / 0 #2 Right Pleural Other: # Incontinent Voids 0 Date of Last Bowel Movement 01/29/18 01/28/18 01/28/18 Narrative: Patient AWAKE BUT FOLLOWS NO COMMANDS- CONFUSE Pupils equal round reactive, anicteric, pink conjunctivae NG tube in place Left Vas-Cath in place Regular rate and rhythm S1, S2 NO S3 OR S4 bilateral clear breath sounds, on BiPAP, otherwise clear. Abdomen soft, distended, no peritonitis. Nontender. Generalized 3-4 edema both hands, feet and lower extremities. Awake,? Orientation, follows NO commands, good hand lineman on the right, bilateral feet plantarflexion, nonverbal, - Urinary Catheter Management Indwelling Temp Sensing Catheter Cath placed during this visit: yes, but has since been removed by the nurse Reason for continuing: Decision to DC catheter Insertion date: 01/14/18 Insertion time: 22:00 Removal date: 01/21/18 Removal time: 18:00 Straight Cath placed during this visit: no Results - Labs CBC & Chem 7: 01/30/18 05:07 01/30/18 05:07 Laboratory Results - last 24 hr 01/28/18 01/29/18 01/29/18 05:40 05:25 17:30 WBC RBC Hgb Hct MCV MCH MCHC RDW Plt Count MPV Prelim Diff (Auto) Neut % (Auto) Lymph % (Auto) Coleman % (Auto) Eos % (Auto) Baso % (Auto) Neut # (Auto) Lymph # (Auto) Coleman # (Auto) Eos # (Auto) Baso # (Auto) WBC Differential Seg Neuts % (Manual) Band Neuts % (Manual) Lymphocytes % (Manual) Monocytes % (Manual) Eosinophils % (Manual) Myelocytes % (Man) Abs Neuts (Manual) Differential Comment Platelet Estimate Platelet Morphology Puncture Site Patient Temperature O2 Saturation ABG pH ABG pCO2 ABG pO2 ABG HCO3 ABG O2 Content ABG Base Excess ABG Methemoglobin Rocky Test Hemoglobin Carboxyhemoglobin O2 Delivery Device Vent Setting Inspired O2 Critical Value Sodium Potassium Chloride Carbon Dioxide Anion Gap BUN Creatinine Estimated GFR POC Glucose 434 H Random Glucose Hemoglobin A1c 7.5 H Calcium Phosphorus Ammonia Total Creatine Kinase Albumin Thiamine 300 H 01/29/18 01/30/18 01/30/18 21:43 02:23 05:07 WBC 24.5 H RBC 2.50 L Hgb 7.7 L Hct 22.9 L MCV 91.8 MCH 30.9 MCHC 33.7 RDW 16.6 Plt Count 256 MPV 8.9 Prelim Diff (Auto) Slide review pending Neut % (Auto) 94.0 H Lymph % (Auto) 1.6 L Coleman % (Auto) 3.8 Eos % (Auto) 0.4 Baso % (Auto) 0.2 Neut # (Auto) 23.0 H Lymph # (Auto) 0.4 L Coleman # (Auto) 0.9 Eos # (Auto) 0.1 Baso # (Auto) 0.0 WBC Differential Manual diff final Seg Neuts % (Manual) 90 H Band Neuts % (Manual) 4 Lymphocytes % (Manual) 1 L Monocytes % (Manual) 1 Eosinophils % (Manual) 2 Myelocytes % (Man) 2 H Abs Neuts (Manual) 23.5 H Differential Comment . Platelet Estimate Normal Platelet Morphology Normal Puncture Site Patient Temperature O2 Saturation ABG pH ABG pCO2 ABG pO2 ABG HCO3 ABG O2 Content ABG Base Excess ABG Methemoglobin Rocky Test Hemoglobin Carboxyhemoglobin O2 Delivery Device Vent Setting Inspired O2 Critical Value Sodium Potassium Chloride Carbon Dioxide Anion Gap BUN Creatinine Estimated GFR POC Glucose 307 H 292 H Random Glucose Hemoglobin A1c Calcium Phosphorus Ammonia Total Creatine Kinase Albumin Thiamine 01/30/18 01/30/18 01/30/18 05:07 05:07 05:32 WBC RBC Hgb Hct MCV MCH MCHC RDW Plt Count MPV Prelim Diff (Auto) Neut % (Auto) Lymph % (Auto) Coleman % (Auto) Eos % (Auto) Baso % (Auto) Neut # (Auto) Lymph # (Auto) Coleman # (Auto) Eos # (Auto) Baso # (Auto) WBC Differential Seg Neuts % (Manual) Band Neuts % (Manual) Lymphocytes % (Manual) Monocytes % (Manual) Eosinophils % (Manual) Myelocytes % (Man) Abs Neuts (Manual) Differential Comment Platelet Estimate Platelet Morphology Puncture Site Patient Temperature O2 Saturation ABG pH ABG pCO2 ABG pO2 ABG HCO3 ABG O2 Content ABG Base Excess ABG Methemoglobin Rocky Test Hemoglobin Carboxyhemoglobin O2 Delivery Device Vent Setting Inspired O2 Critical Value Sodium 139 Potassium 3.5 Chloride 99 Carbon Dioxide 20.7 L Anion Gap 19 H BUN 174 H Creatinine 9.28 H Estimated GFR 6 L POC Glucose 317 H Random Glucose 284 H Hemoglobin A1c Calcium 7.4 L* Phosphorus 8.4 H D Ammonia 32 Total Creatine Kinase 235 Albumin 3.3 L Thiamine 01/30/18 01/30/18 11:02 11:38 WBC RBC Hgb Hct MCV MCH MCHC RDW Plt Count MPV Prelim Diff (Auto) Neut % (Auto) Lymph % (Auto) Coleman % (Auto) Eos % (Auto) Baso % (Auto) Neut # (Auto) Lymph # (Auto) Coleman # (Auto) Eos # (Auto) Baso # (Auto) WBC Differential Seg Neuts % (Manual) Band Neuts % (Manual) Lymphocytes % (Manual) Monocytes % (Manual) Eosinophils % (Manual) Myelocytes % (Man) Abs Neuts (Manual) Differential Comment Platelet Estimate Platelet Morphology Puncture Site Right radial Patient Temperature 98.6 O2 Saturation 93 ABG pH 7.41 ABG pCO2 31 L ABG pO2 90 ABG HCO3 19 L ABG O2 Content 10.9 L ABG Base Excess -4.6 L ABG Methemoglobin 2.0 Rocky Test + Hemoglobin 8.2 L Carboxyhemoglobin 1.5 O2 Delivery Device Bipap Vent Setting [id number] Inspired O2 30 Critical Value No Sodium Potassium Chloride Carbon Dioxide Anion Gap BUN Creatinine Estimated GFR POC Glucose 213 H Random Glucose Hemoglobin A1c Calcium Phosphorus Ammonia Total Creatine Kinase Albumin Thiamine Microbiology 01/29/18 14:27 Blood - Peripheral Aerobic Blood Culture - Preliminary No growth in 1 day 01/29/18 14:27 Blood - Peripheral Anaerobic Blood Culture - Preliminary No growth in 1 day 01/29/18 14:35 Blood - Peripheral Aerobic Blood Culture - Preliminary No growth in 1 day 01/29/18 14:35 Blood - Peripheral Anaerobic Blood Culture - Preliminary No growth in 1 day Assessment and Plan - Plan 62-year-old white male who was admitted with cardiogenic shock and acute respiratory failure requiring CPR and epinephrine in the field, after being found down at home and being witnessed to possibly have undergone seizure-like activity. Intubation was attempted in the field but were unable to do so, patient was ultimately intubated in the hospital, started on pressors, placed in the ICU on mechanical ventilation. Found to have bilateral pneumothoraces with chest tubes placed, had developed some pneumoperitoneum which surgically deemed might have been a leak from his chest tubes as opposed to an acute surgical abdomen. Patient was started on antibiotics empirically for possible aspiration pneumonia but was ultimately discontinued off of them by infectious disease. Developed rhabdomyolysis with worsening acute renal failure which became sustained, with the patient now undergoing dialysis via a permcath. Ultimately was discontinued off pressors, cardiology deferred heart cath due to renal failure. Patient had difficulty following commands after he was discontinued off of sedation and after extubation. 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 EEG was done which was unremarkable. 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 Repeat head MRI showing no acute changes, remote right CVA, cervical spine MRI showing diffuse disc desiccation but no obvious reasons that would indicate his difficulty in following motor commands. Continue PT, ordering OT and ST. Neurology on board, carotid ultrasound negative for significant stenosis. - on ASA, echo negative for thrombus, ejection fraction 55-60%. Possible seizure -Continue Keppra, EEG negative for epileptiform activity Non-STEMI, Elevated troponin -Cardiology consulted, echocardiogram normal LV function, poor candidate for invasive cardiac evaluation with renal failure and thrombocytopenia. Continue hydralazine, Coreg, isosorbide dinitrate, ASA, lipitor, no intervention at this time. Bilateral pneumothoraces, pneumomediastinum, acute respiratory failure -BL chest tubes placed, pneumothorax resolved, chest tubes removed 01/28/2018, pulmonary on board, likely traumatic etiology. Pulmonary following. Currently on BiPAP, wean to nasal cannula. Pneumoperitoneum with right retroperitoneal gas/gas around the right kidney -Likely secondary to bilateral pneumothoraces with no surgical intervention warranted per general surgery discussion with ED physician Hepatitis secondary to shock, in the background of hepatic steatosis and possible alcohol related cirrhosis -2/2 severe hepatic steatosis likely EtOH cirrhosis given US and MRI findings with fatty liver and trace ascites. LFTs now normalized, hepatic panel negative. -Continue thiamine and folate, on beta-blockers. Hepatic encephalopathy-last ammonia level was 5 days ago, almost normal, patient still has diarrhea with Dign[place]ield in place, decrease lactulose to once a day, recheck ammonia tomorrow. Aspiration PNA vs aspiration pneumonitis: resolved -Leukocytosis, could be steroid induced. Infectious disease following Antibiotic associated diarrea- C diff negative, the patient is also on lactulose. Acute kidney injury now possibly with end-stage renal disease, Rhabdomyolysis -Rhabdomyolysis is improving, recheck CK, nephrology following, dialyzing, no signs of renal improvement, HD on Sun ON HD SUN/SUN/SUNDAY diabetes mellitus hypothyroidism -Hold all oral hypoglycemic agents, Levemir started, increase to 10 units, BG is improving, continue levothyroxine, high-dose sliding scale insulin. Should get better with backing of steroids. Check hemoglobin A1c. Normocytic anemia thrombocytopenia Likely secondary to liver disease, unlikely HIT 2/2 timeframe, Elevated haptoglobin/LDH and peripheral smear , thrombocytopenia better, anemia is stable , restart aspirin , Occult blood positive. Would need further workup when more stable. Persistent leukocytosis -felt to be a leukemoid reaction per ID versus steroid-induced, wean off steroids, switch to oral, we will continue to trend, recheck CBC tomorrow, afebrile, monitor. Blood cultures are negative Cont Tube feeds Heparin for DVT prophylaxis Protonix for GI prophylaxis Discussed with nursing. WILL GET AM LABS CONSULT PALLIATIVE CARE TEAM DW SISTER CHERIE JOHNBrent [phone] Code Status: FULL CODE Discussed Condition With: RN AND PT AND SISTER CHERIE JOHNBrent [phone] Discharge Planning: PENDING IMPROVEMENT
[2018-01-30] MEDS: Insulin Detemir Inj 1,000 UNIT/10 ML Vial SQ SCH (21:25)
[2018-01-31] MEDS: Insulin NovoLIN Regular Correctional Sugar Inj SQ SCH ×5 (01:56→23:57)
[2018-01-31] MEDS: Artificial Tears Opth Drops 15 ML Bottle EACH EYE SCH ×4 (01:56→23:56)
[2018-01-31] MEDS: Oral Hygiene Kit OROPHARYNG SCH ×5 (01:56→23:56)
[2018-01-31] MEDS: Pantoprazole Inj 40 MG Vial IV.PUSH SCH ×2 (01:57→14:09)
[2018-01-31 05:42] LABS: Baso % (Auto) 0.1 % (0.0-2.0); Eos # (Auto) 0.1 th/mm3 (0.0-0.4); Eos % (Auto) 0.5 % (0.0-4.0); Hemoglobin 7.5 gm/dL (13.0-17.0); Lymph # (Auto) 0.6 th/mm3 (1.0-4.8); Lymph % (Auto) 3.2 % (9.0-44.0); Mean Corpuscular HGB Conc 34.2 % (32.0-36.0); Mean Corpuscular Hemoglobin 30.8 pg (27.0-34.0); Mean Platelet Volume 9.4 fL (7.0-11.0); Mono # (Auto) 0.9 th/mm3 (0.0-0.9); Mono % (Auto) 4.4 % (0.0-8.0); Neut # (Auto) 18.4 th/mm3 (1.8-7.7); Neut % (Auto) 91.8 % (16.0-70.0); Platelet Count 225 th/mm3 (150-450); Red Blood Count 2.44 mil/mm3 (4.50-5.90); Red Cell Distribution Width 17.2 % (11.6-17.2); White Blood Count 20.1 th/mm3 (4.0-11.0)
[2018-01-31 05:44] LABS: Prothrombin Time 9.9 sec (9.8-11.6)
[2018-01-31 06:19] LABS: Alanine Aminotransferase 71 U/L (12-78); Albumin 2.9 g/dL (3.4-5.0); Alkaline Phosphatase 177 U/L (45-117); Anion Gap 15 meq/L (5-15); Aspartate Aminotransferase 33 U/L (15-37); Blood Urea Nitrogen 124 mg/dL (7-18); Calcium 7.9 mg/dL (8.5-10.1); Carbon Dioxide 24.6 meq/L (21.0-32.0); Chloride 99 meq/L (98-107); Free T4 (Free Thyroxine) 0.99 ng/dL (0.76-1.46); Glomerular Filtration Rate 8 mL/min (>89); Glucose,Random 276 mg/dL (74-106); Magnesium 2.6 mg/dL (1.5-2.5); Phosphorus 6.5 mg/dL (2.5-4.9); Sodium 139 meq/L (136-145); Total Protein 5.6 g/dL (6.4-8.2)
[2018-01-31] MEDS: hydrALAZINE 25 MG Tablet PO SCH ×3 (07:03→22:35)
[2018-01-31] MEDS: Heparin - SQ 10,000 UNITS/ML Vial SQ SCH ×3 (07:03→22:35)
[2018-01-31] MEDS: Levothyroxine 88 MCG Tablet PO SCH (07:04)
[2018-01-31 07:29] LABS: Lymphocytes 4 % (9-44); Monocytes 2 % (0-8); Myelocytes 2 % (0-0)
[2018-01-31 07:31] LABS: Platelet Estimate Normal (Normal); Platelet Morphology Normal (Normal)
[2018-01-31] MEDS: Carvedilol 6.25 MG Tablet PO SCH ×2 (09:06→22:35)
[2018-01-31] MEDS: Folic Acid 1 MG Tablet PO SCH (09:06)
[2018-01-31] MEDS: predniSONE 20 MG Tablet PO SCH (09:06)
[2018-01-31] MEDS: Chlorhexidine 0.12% Oral Kit 15 ML UDC OROPHARYNG SCH ×2 (09:07→22:35)
[2018-01-31] MEDS: Senna/Docusate Sodium 8.6/50 MG Tablet PO SCH ×2 (09:07→22:35)
--- NOTE | 2018-01-31 09:29 | P.PNPL ---
Subjective Interval history: No events overnight. Off BIPAP. Afebrile. Physical Exam Vital signs: Vital Signs 01/30/18 10:00 01/30/18 10:01 01/30/18 11:00 Temperature Pulse Rate 86 85 83 Respiratory Rate 24 22 19 Blood Pressure 144/74 H Pulse Oximetry 98 98 98 01/30/18 11:01 01/30/18 12:00 01/30/18 12:01 Temperature 98.2 F Pulse Rate 84 88 91 H Respiratory Rate 22 26 H 19 Blood Pressure 155/80 H 166/91 H 166/91 H Pulse Oximetry 98 99 99 01/30/18 12:28 01/30/18 12:29 01/30/18 13:00 Temperature Pulse Rate 93 H 94 H Respiratory Rate 20 31 H Blood Pressure Pulse Oximetry 96 97 01/30/18 13:01 01/30/18 14:00 01/30/18 14:46 Temperature Pulse Rate 97 H 101 H 102 H Respiratory Rate 22 23 23 Blood Pressure 131/77 136/84 125/93 H Pulse Oximetry 97 97 98 01/30/18 15:00 01/30/18 15:01 01/30/18 15:15 Temperature Pulse Rate 102 H 101 H 104 H Respiratory Rate 24 25 H 23 Blood Pressure 129/85 131/85 Pulse Oximetry 98 98 98 01/30/18 15:31 01/30/18 15:45 01/30/18 16:00 Temperature 97.4 F L Pulse Rate 103 H 102 H 103 H Respiratory Rate 25 H 24 25 H Blood Pressure 112/79 113/74 122/86 Pulse Oximetry 99 99 99 01/30/18 16:01 01/30/18 16:15 01/30/18 20:00 Temperature 98.5 F Pulse Rate 103 H 109 H 98 H Respiratory Rate 25 H 25 H 25 H Blood Pressure 122/86 117/73 148/80 H Pulse Oximetry 99 98 98 01/30/18 20:42 01/31/18 00:00 01/31/18 00:05 Temperature 98.2 F Pulse Rate 98 H 92 H Respiratory Rate 24 24 Blood Pressure 145/89 H Pulse Oximetry 98 98 100 01/31/18 04:00 01/31/18 04:06 01/31/18 08:34 Temperature 98.4 F Pulse Rate 84 83 89 Respiratory Rate 23 22 24 Blood Pressure 119/83 Pulse Oximetry 98 100 100 Intake & Output 01/30/18 01/31/18 01/31/18 18:59 06:59 18:59 Intake Total 807 / 807 886 / 886 105 / 105 Output Total 4200 / 4200 108 / 108 Balance -3393 / -3393 778 / 778 105 / 105 Weight 107 kg Intake: IV 105 / 105 105 / 105 Keppra Inj 500 MG In NS Inj 100 105 / 105 105 / 105 ML @ 400 mls/hr IV.SIG Q12H [facility] Rx#:[id number] Tube Feeding 642 / 642 626 / 626 Tube Irrigant 60 / 60 60 / 60 Water Bolus Amount 200 / 200 Output: Urine 0 / 0 0 / 0 Stool 200 / 200 100 / 100 Pleural Fluid 0 / 0 0 / 0 Hemodialysis Amount 4000 / 4000 Urine Amount (Catheter) 0 / 0 0 / 0 Indwelling Temp Sensing 0 / 0 0 / 0 Catheter Straight 0 / 0 0 / 0 Chest Tube Drainage 0 / 0 8 / 8 #1 Left Pleural 0 / 0 0 / 0 #2 Right Pleural Other: # Incontinent Voids 0 0 Date of Last Bowel Movement 01/30/18 01/31/18 - Constitutional no acute distress, obese - Routine HEENT Exam Head: Present: normocephalic, atraumatic Eye: Present: EOMI, PERRL, normal accommodation, conjunctivae pink ENT: Present: mucous membranes moist - Routine Neck Exam Present: supple, full ROM, trachea midline - Routine Respiratory Exam Present: CTA bilaterally - Routine Cardiovascular Exam Present: RRR, S1, S2 - Routine Abdominal Exam Present: soft, normoactive bowel sounds - Routine Skin Exam Present: intact - Routine Neurological Exam Present: altered mental status - Urinary Catheter Management Indwelling Temp Sensing Catheter Cath placed during this visit: yes, but has since been removed by the nurse Reason for continuing: Decision to DC catheter Insertion date: 01/14/18 Insertion time: 22:00 Removal date: 01/21/18 Removal time: 18:00 Straight Cath placed during this visit: no Assessment and Plan - Plan 1. Respiratory insufficiency, status post extubation on 01/25/2018. 2. s/p pneumothoraces on arrival, status post bilateral small bore chest tube placement on 01/15/2018. removed 01/28 3. Acute kidney injury. 4. Leukocytosis. 5. Anemia. 6. NSTEMI 7. Morbid obesity. 8. Hypertension. 9. Diabetes mellitus. 10. s/p seizures. Plan Continue with oxygen to maintain sats >92%. Bronchodilators-DuoNeb Aspiration precautions. BIPAP nocturnally and p.r.n. for respiratory distress. ABG reviewed Continue Prednisone 20mg daily CXR 01/28: No evidence of PTX, CT d/diana 01/29 Nutrition support. on tube feeds via an NG tube, Nepro @60 mL an hour. Patient might need PEG tube placement if continue to fail speech study. off antibiotics. Monitor for signs of infection( fever and WBC). ID is following Monitor renal function, avoid nephrotoxins. Renal is following GI and DVT prophylaxis. on Protonix 40 mg IV every 12 hours and heparin sq respectively.
--- NOTE | 2018-01-31 09:46 | P.PNNEU ---
Subjective Active Medications: Active Medications Acetaminophen (Tylenol) 650 mg PO UNSCH PRN PRN Reason: SEE LABEL COMMENTS Al Hydroxide/Mg Hydroxide (Milk Of Orion Liq) 30 ml PO Q12H PRN PRN Reason: Mild Constipation Albuterol (Duoneb Neb (Prn)) 1 ampul NEB Q2HR NEB PRN PRN Reason: DYSPNEA Albuterol (Duoneb Neb (Tonja)) 1 ampul NEB Q6HR ALT NEB [facility] Last Admin: 01/31/18 08:30 Dose: 1 ampul Artificial Tears (Tears Naturale Opth Drops) 1 drop EACH EYE Q8H [facility] Last Admin: 01/31/18 09:06 Dose: 1 drop Aspirin (Aspirin Chew) 81 mg PO DAILY [facility] Last Admin: 01/31/18 09:06 Dose: 81 mg Atorvastatin Calcium (Lipitor) 20 mg PO DAILY [facility] Last Admin: 01/31/18 09:06 Dose: 20 mg Bisacodyl (Dulcolax Supp) 10 mg RECTAL DAILY PRN PRN Reason: SEVERE CONSITIPATION Carvedilol (Coreg) 6.25 mg PO BID [facility] Last Admin: 01/31/18 09:06 Dose: 6.25 mg Chlorhexidine Gluconate (Peridex 0.12% Oral Kit) 15 ml OROPHARYNG BID@0800, 2000 [facility] Last Admin: 01/31/18 09:07 Dose: 15 ml Dextrose (D50w Vial) 50 ml IV.PUSH UNSCH PRN PRN Reason: PER HYPOGLYCEMIA PROTOCOL Diphenhydramine HCl (Benadryl) 25 mg PO UNSCH PRN PRN Reason: SEE LABEL COMMENTS Diphenhydramine HCl (Benadryl) 25 mg PO UNSCH PRN PRN Reason: SEE LABEL COMMENTS Folic Acid (Folic Acid) 1 mg PO DAILY [facility] Last Admin: 01/31/18 09:06 Dose: 1 mg Gelatin (Gelfoam 12 Mm/7 Mm Topical) 1 foam TOPICAL PRN PRN PRN Reason: help stop bleeding from site Gentamicin Sulfate (Gentamicin Inj) 20 mg OTHER WITH DIALYSIS PRN PRN Reason: Dwell Gentamycin Lock Last Admin: 01/30/18 16:47 Dose: 20 mg Glucagon (Glucagon Inj) 1 mg OTHER PRN PRN PRN Reason: for Hypoglycemia Protocol Heparin Sodium (Porcine) (Heparin Inj) 0 units IV.FLUSH WITH DIALYSIS PRN PRN Reason: Flush each lumen Last Admin: 01/25/18 08:38 Dose: 2,000 units Heparin Sodium (Porcine) (Heparin Inj) 8,000 units OTHER WITH DIALYSIS PRN PRN Reason: for machine prime Heparin Sodium (Porcine) (Heparin Inj) 1,000 units OTHER WITH DIALYSIS PRN PRN Reason: Dwell Heparin to Fill Catheter Last Admin: 01/28/18 08:42 Dose: 1,000 units Heparin Sodium (Porcine) (Heparin Inj) 5,000 units SQ Q8HR [facility]ON[facility] Last Admin: 01/31/18 07:03 Dose: 5,000 units Hydralazine HCl (Apresoline Inj) 10 mg IV.PUSH Q1H PRN PRN Reason: sbp > 165 Last Admin: 01/27/18 00:30 Dose: 10 mg Hydralazine HCl (Apresoline) 100 mg PO Q8HR TONJA Last Admin: 01/31/18 07:03 Dose: 100 mg Levetiracetam 500 mg/ Sodium (Chloride) 105 mls @ 400 mls/hr IV.SIG Q12H [facility]ONJA Last Infusion: 01/31/18 07:37 Dose: Infused Albumin Human (Flexbumin 25% Inj) 100 mls @ 60 mls/hr IV.SIG WITH DIALYSIS PRN PRN Reason: hypotension / volume replace Last Infusion: 01/28/18 09:35 Dose: Infused Sodium Chloride (Ns Inj) 1,000 mls @ 0 mls/hr OTHER .Q0M PRN PRN Reason: for prime and rinse back Last Infusion: 01/26/18 02:33 Dose: Infused Sodium Chloride (Ns Inj) 1,000 mls @ 200 mls/hr OTHER .Q5H PRN PRN Reason: for dialyzer flush PRN Sodium Chloride (Ns Inj) 1,000 mls @ 0 mls/hr IV.CONT .Q0M PRN PRN Reason: hypotension / volume replace Insulin Detemir (Levemir Inj) 10 unit SQ HS TONJA Last Admin: 01/30/18 21:25 Dose: 10 unit Insulin Human Regular (Novolin R Correctional Sugar Inj) 0 units SQ Q6HR TONJA; Protocol Last Admin: 01/31/18 07:12 Dose: 15 units Isosorbide Dinitrate (Isordil) 20 mg PO Q8HR TONJA Last Admin: 01/31/18 07:04 Dose: 20 mg Labetalol HCl (Trandate Inj) 10 mg IV.PUSH Q4H PRN PRN Reason: HTN Last Admin: 01/27/18 01:22 Dose: 10 mg Lactulose (Lactulose Liq) 30 ml PO DAILY PRN PRN Reason: SEVERE CONSITIPATION Lactulose (Lactulose Liq) 30 ml PO DAILY [facility] Last Admin: 01/31/18 09:06 Dose: 30 ml Levothyroxine Sodium (Synthroid) 88 mcg PO DAILY@0600 [facility] Last Admin: 01/31/18 07:04 Dose: 88 mcg Mannitol (Mannitol Inj) 12.5 gm IV.PUSH UNSCH PRN PRN Reason: hypotension / volume replace Miscellaneous Medication () 1 each OROPHARYNG 0000,0400,1200,1600 [facility] Last Admin: 01/31/18 07:03 Dose: 1 each Morphine Sulfate (Morphine Inj) 2 mg IV.PUSH Q2H PRN PRN Reason: PAIN SCALE 6 TO 10 Last Admin: 01/26/18 10:01 Dose: 2 mg Multivitamins (Theragran) 1 tab PO DAILY [facility] Last Admin: 01/31/18 09:06 Dose: 1 tab Nitroglycerin (Nitro-Bid 2% Oint) 2 inch TOPICAL Q6HR PRN PRN Reason: Sbp>165, Dbp>90 Nitroglycerin (Nitrostat Sl) 0.4 mg SL Q5M PRN PRN Reason: CHEST PAIN Ondansetron HCl (Zofran Inj) 4 mg IV.PUSH Q6H PRN PRN Reason: NAUSEA OR VOMITING Last Admin: 01/15/18 05:38 Dose: 4 mg Ondansetron HCl (Zofran Inj) 4 mg IV.PUSH UNSCH PRN PRN Reason: NAUSEA OR VOMITING Pantoprazole Sodium (Protonix Inj) 40 mg IV.PUSH Q12H [facility] Last Admin: 01/31/18 01:57 Dose: 40 mg Prednisone (Deltasone) 20 mg PO DAILY [facility] Last Admin: 01/31/18 09:06 Dose: 20 mg Senna/Docusate Sodium (Ayleen-Colace) 1 tab PO BID [facility] Last Admin: 01/31/18 09:07 Dose: Not Given Sennosides (Senokot) 17.2 mg PO Q12H PRN PRN Reason: Moderate Constipation Sodium Chloride (Ns Flush) 2 ml IV.FLUSH BID [facility] Last Admin: 01/31/18 09:06 Dose: 2 ml Sodium Chloride (Ns Flush) 2 ml IV.FLUSH PRN PRN PRN Reason: FLUSH AFTER USING IV ACCESS Last Admin: 01/16/18 09:33 Dose: 2 ml Sodium Chloride (Ns Flush) 0 ml IV.FLUSH PRN PRN PRN Reason: FLUSH AFTER USING IV ACCESS Sodium Chloride (Ns Flush) 5 ml IV.FLUSH PRN PRN PRN Reason: flush each lumen during HD Sodium Chloride (Ns Flush) 5 ml IV.FLUSH PRN PRN PRN Reason: flush each lumen during HD Terbutaline Sulfate (Brethine Inj) 1 mg SQ UNSCH PRN PRN Reason: For Extravasation Thiamine HCl (Vitamin B1) 100 mg PO DAILY [facility] Last Admin: 01/31/18 09:06 Dose: 100 mg Allergies/Adverse Reactions: Allergies Allergy/AdvReac Type Severity Reaction Status Date / Time erythromycin base Allergy Severe Hives Verified 01/14/18 03:00 penicillin G Allergy Severe Hives Verified 01/14/18 03:00 Physical Exam Vital signs: Vital Signs 01/30/18 10:00 01/30/18 10:01 01/30/18 11:00 Temperature Pulse Rate 86 85 83 Respiratory Rate 24 22 19 Blood Pressure 144/74 H Pulse Oximetry 98 98 98 01/30/18 11:01 01/30/18 12:00 01/30/18 12:01 Temperature 98.2 F Pulse Rate 84 88 91 H Respiratory Rate 22 26 H 19 Blood Pressure 155/80 H 166/91 H 166/91 H Pulse Oximetry 98 99 99 01/30/18 12:28 01/30/18 12:29 01/30/18 13:00 Temperature Pulse Rate 93 H 94 H Respiratory Rate 20 31 H Blood Pressure Pulse Oximetry 96 97 01/30/18 13:01 01/30/18 14:00 01/30/18 14:46 Temperature Pulse Rate 97 H 101 H 102 H Respiratory Rate 22 23 23 Blood Pressure 131/77 136/84 125/93 H Pulse Oximetry 97 97 98 01/30/18 15:00 01/30/18 15:01 01/30/18 15:15 Temperature Pulse Rate 102 H 101 H 104 H Respiratory Rate 24 25 H 23 Blood Pressure 129/85 131/85 Pulse Oximetry 98 98 98 01/30/18 15:31 01/30/18 15:45 01/30/18 16:00 Temperature 97.4 F L Pulse Rate 103 H 102 H 103 H Respiratory Rate 25 H 24 25 H Blood Pressure 112/79 113/74 122/86 Pulse Oximetry 99 99 99 01/30/18 16:01 01/30/18 16:15 01/30/18 20:00 Temperature 98.5 F Pulse Rate 103 H 109 H 98 H Respiratory Rate 25 H 25 H 25 H Blood Pressure 122/86 117/73 148/80 H Pulse Oximetry 99 98 98 01/30/18 20:42 01/31/18 00:00 01/31/18 00:05 Temperature 98.2 F Pulse Rate 98 H 92 H Respiratory Rate 24 24 Blood Pressure 145/89 H Pulse Oximetry 98 98 100 01/31/18 04:00 01/31/18 04:06 01/31/18 08:34 Temperature 98.4 F Pulse Rate 84 83 89 Respiratory Rate 23 22 24 Blood Pressure 119/83 Pulse Oximetry 98 100 100 Intake & Output 01/30/18 01/31/18 01/31/18 18:59 06:59 18:59 Intake Total 807 / 807 886 / 886 105 / 105 Output Total 4200 / 4200 108 / 108 Balance -3393 / -3393 778 / 778 105 / 105 Weight 107 kg Intake: IV 105 / 105 105 / 105 Keppra Inj 500 MG In NS Inj 100 105 / 105 105 / 105 ML @ 400 mls/hr IV.SIG Q12H [facility] Rx#:[id number] Tube Feeding 642 / 642 626 / 626 Tube Irrigant 60 / 60 60 / 60 Water Bolus Amount 200 / 200 Output: Urine 0 / 0 0 / 0 Stool 200 / 200 100 / 100 Pleural Fluid 0 / 0 0 / 0 Hemodialysis Amount 4000 / 4000 Urine Amount (Catheter) 0 / 0 0 / 0 Indwelling Temp Sensing 0 / 0 0 / 0 Catheter Straight 0 / 0 0 / 0 Chest Tube Drainage 0 / 0 8 / 8 #1 Left Pleural 0 / 0 0 / 0 #2 Right Pleural 8 / 8 Other: # Incontinent Voids 0 0 Date of Last Bowel Movement 01/30/18 01/31/18 Narrative: awke and looks at nurse and wiggle feet but not stick out elaine eyes look and move ok for me - Urinary Catheter Management Indwelling Temp Sensing Catheter Cath placed during this visit: yes, but has since been removed by the nurse Reason for continuing: Decision to DC catheter Insertion date: 01/14/18 Insertion time: 22:00 Removal date: 01/21/18 Removal time: 18:00 Straight Cath placed during this visit: no Objective Laboratory Results - last 24 hr 01/30/18 01/30/18 01/30/18 11:02 11:38 17:23 WBC RBC Hgb Hct MCV MCH MCHC RDW Plt Count MPV Prelim Diff (Auto) Neut % (Auto) Lymph % (Auto) Grundy % (Auto) Eos % (Auto) Baso % (Auto) Neut # (Auto) Lymph # (Auto) Grundy # (Auto) Eos # (Auto) Baso # (Auto) WBC Differential Seg Neuts % (Manual) Band Neuts % (Manual) Lymphocytes % (Manual) Monocytes % (Manual) Myelocytes % (Man) Abs Neuts (Manual) Differential Comment Platelet Estimate Platelet Morphology PT INR Puncture Site Right radial Patient Temperature 98.6 O2 Saturation 93 ABG pH 7.41 ABG pCO2 31 L ABG pO2 90 ABG HCO3 19 L ABG O2 Content 10.9 L ABG Base Excess -4.6 L ABG Methemoglobin 2.0 Rocky Test + Hemoglobin 8.2 L Carboxyhemoglobin 1.5 O2 Delivery Device Bipap Vent Setting [id number] Inspired O2 30 Critical Value No Sodium Potassium Chloride Carbon Dioxide Anion Gap BUN Creatinine Estimated GFR POC Glucose 213 H 234 H Random Glucose Calcium Phosphorus Magnesium Total Bilirubin AST ALT Alkaline Phosphatase Ammonia Total Protein Albumin TSH Free T4 01/31/18 01/31/18 01/31/18 01:50 05:22 05:22 WBC 20.1 H RBC 2.44 L Hgb 7.5 L Hct 22.0 L MCV 90.0 MCH 30.8 MCHC 34.2 RDW 17.2 Plt Count 225 MPV 9.4 Prelim Diff (Auto) Slide review pending Neut % (Auto) 91.8 H Lymph % (Auto) 3.2 L Grundy % (Auto) 4.4 Eos % (Auto) 0.5 Baso % (Auto) 0.1 Neut # (Auto) 18.4 H Lymph # (Auto) 0.6 L Grundy # (Auto) 0.9 Eos # (Auto) 0.1 Baso # (Auto) 0.0 WBC Differential Manual diff final Seg Neuts % (Manual) 91 H Band Neuts % (Manual) 1 Lymphocytes % (Manual) 4 L Monocytes % (Manual) 2 Myelocytes % (Man) 2 H Abs Neuts (Manual) 18.9 H Differential Comment . Platelet Estimate Normal Platelet Morphology Normal PT 9.9 INR 1.0 Puncture Site Patient Temperature O2 Saturation ABG pH ABG pCO2 ABG pO2 ABG HCO3 ABG O2 Content ABG Base Excess ABG Methemoglobin Rocky Test Hemoglobin Carboxyhemoglobin O2 Delivery Device Vent Setting Inspired O2 Critical Value Sodium Potassium Chloride Carbon Dioxide Anion Gap BUN Creatinine Estimated GFR POC Glucose 326 H Random Glucose Calcium Phosphorus Magnesium Total Bilirubin AST ALT Alkaline Phosphatase Ammonia Total Protein Albumin TSH Free T4 01/31/18 01/31/18 01/31/18 05:22 05:22 07:11 WBC RBC Hgb Hct MCV MCH MCHC RDW Plt Count MPV Prelim Diff (Auto) Neut % (Auto) Lymph % (Auto) Grundy % (Auto) Eos % (Auto) Baso % (Auto) Neut # (Auto) Lymph # (Auto) [place]undy # (Auto) Eos # (Auto) Baso # (Auto) WBC Differential Seg Neuts % (Manual) Band Neuts % (Manual) Lymphocytes % (Manual) Monocytes % (Manual) Myelocytes % (Man) Abs Neuts (Manual) Differential Comment Platelet Estimate Platelet Morphology PT INR Puncture Site Patient Temperature O2 Saturation ABG pH ABG pCO2 ABG pO2 ABG HCO3 ABG O2 Content ABG Base Excess ABG Methemoglobin Rocky Test Hemoglobin Carboxyhemoglobin O2 Delivery Device Vent Setting Inspired O2 Critical Value Sodium 139 Potassium 4.0 Chloride 99 Carbon Dioxide 24.6 Anion Gap 15 BUN 124 H Creatinine 7.01 H Estimated GFR 8 L POC Glucose 280 H Random Glucose 276 H Calcium 7.9 L Phosphorus 6.5 H D Magnesium 2.6 H Total Bilirubin 0.8 AST 33 ALT 71 Alkaline Phosphatase 177 H Ammonia 32 Total Protein 5.6 L D Albumin 2.9 L TSH 2.180 Free T4 0.99 Microbiology 01/29/18 14:35 Aerobic Blood Culture - Preliminary Blood - Peripheral No growth in 1 day Anaerobic Blood Culture - Preliminary gram positive cocci 01/29/18 14:27 Aerobic Blood Culture - Preliminary Blood - Peripheral No growth in 1 day Anaerobic Blood Culture - Preliminary No growth in 1 day Review/Management - Review/Management Plan: imp seems to be interacting a little b12 nl fu us old r cva on asa sz focus could be there on keppra echo neg if any afib would anticoag /01/31/18 interacting more follow some commands us neg improved neuro
--- NOTE | 2018-01-31 10:29 | P.PNIM ---
Subjective Interval history: 62-year-old male patient presents because he was found down by family, on evaluation by EMS he had notable seizures, and they had tried Versed without success, he was vomiting dark material. They tried to intubate him for airway protection, but were unable to intubate him. However, the seizures had stopped at that point. He was obtunded in the ER and was intubated by ED attending. Shortly after intubation patient lost his pulses and CPR was initiated. He has regained spontaneous circulation after 2 cycles of CPR and injections of epinephrine. There was significant subcutaneous emphysema noticed and the patient was rushed to CT for the CT of the head chest and abdomen that showed large bilateral pneumothoraces, as well as free air in peritoneal cavity. Bilateral chest tubes were placed immediately in the emergency department. The free air in the peritoneum with was discussed with the surgeon consumer educator Dr. Jimenez. It was felt the air in abdominal cavity is more likely leak from the chest cavity from bilateral tension pneumothoraces and observation without emergent surgical intervention was recommended. The patient was transferred to ICU where he suffered another cardiac arrest. He has regained again spontaneous circulation post 2 cycles of CPR, 2 A of sodium bicarb and 2 A of epinephrine. The patient's was updated about the critical condition at the bedside. 01/15: Patient remains critically ill on max dose of norepinephrine, vasopressin , and epinephrine. His oxygenation overnight has somehow improved with Flolan infusion, however still requiring aggressive APRV mode of ventilation. 01/16: Off all vasopressors. Oxygenation stable. Switch from AP RV to IN VC. Will attempt MRI brain due to neglect and left sided weakness exam. CT thorax with oral contrast to rule out esophageal perforation. Recheck abdomen pelvis today. Remains on fluconazole, piperacillin/tazobactam and, vancomycin infectious disease. Heparin drip discontinued secondary to acute drop in platelets. Fibrinogen pending. Haptoglobin LDH and smear pending. 01/17: Afebrile. Remains off all vasopressors. Minimal urine output overnight. Plan for hemodialysis today once platelets arrived. Minimal output from chest tubes bilaterally. FiO2 down to 40%. PEEP down to 10. 01/18: Afebrile. -3.5 L with hemodialysis today. Off all vasopressors. Will attempt sedation vacation later on this morning. FiO2 down to 40%. PEEP down to 5. 01/19: Bradycardic. Will attempt to exchange bite block today. Minimal output from chest tubes. Hemodialysis ongoing currently. 01/20: Remains bradycardic. Beta-cristian has been removed. Minimal output from chest tubes. Afebrile. Will attempt to wean ventilator using dexmedetomidine drip. Subjective 01/21: Currently on dexmedetomidine for vent weaning. Tolerating hemodialysis. More arousable. Looking around but not following commands. Positive BM. Tolerating tube feeding. 01/22: CPAP trials initiated this a.m. The patient is awake but does not follow any commands. CPAP trials continue noted chest x-ray concerning for persistent bilateral pulmonary opacities. We will obtain SBT today. 01/23: Patient currently undergoing hemodialysis plan for 4 L removal of fluid. The patient was placed on a rate last night CPAP trial was reinitiated at 6 AM. Plan to continue CPAP throughout the evening. Will attempt SBT trial today if possible. Patient tolerating tube feeds. Bilateral chest tube remain on suction minimal output. 01/24: No change in neurological status. The patient was removed from CPAP trials last evening and placed back on a rate during the night CPAP trials were reinitiated today. Patient's at bedside, provided medical status update. Chest x-ray remains unchanged .Plan for SBT reevaluation. 01/25: Afebrile. No change in neurological status. Patient has remained on CPAP throughout the night 12/07. SBT trials on 12/07 appear adequate. Patient currently on CPAP trials 07/07 with a FiO2 of 35%. Bilateral chest tubes in situ continue on suction minimal output. Day 11 of ETT plan for trial of extubation this afternoon. Today chest x-ray noted slight improvement. 01/26: The patient was successfully extubated yesterday no change in neurological status. Formal swallow study pending. The patient remains with NG tube infusing Nepro no residuals per persistent leukocytosis noted. Bilateral chest tubes remain at 40 cm wall suction, minimal output. 01-27 TRANSFERRED TO OUR SERVICE Follow-up for cardiac arrest, cardiogenic shock, renal failure, acute neurological deficits. Nursing denies any acute changes overnight. Nursing still maintains that the patient is partially understanding words, unable to respond to motor commands with the left side of his body. He is on a low rate of Cardene drip at this time for hypertension. - Nursing reports the patient's blood sugars are reaching the 400s with the tube feeds in place, was successfully weaned off of Cardene drip earlier. Thinks that the left-sided chest tube is not necessarily working at this time. Otherwise no acute deterioration. 01-29 Follow-up for diarrhea, respiratory failure No overnight events. Discussed with nursing, patient is nonverbal, follows some commands. Chest tube removed yesterday. Afebrile, on BiPAP overnight, BG is now in the 190s, blood pressure stable. Moves extremities spontaneously, loose stools, good urine output. 01-30 HAD HD ON SUN/SUN/SUNDAY PATIENT MOVES LIMBS IS NONVERBAL NOT FOLLOWING ANY COMMAND FOR ME SENIOR BUSINESS OBJECTS DEVELOPER WILL GET PALLIATIVE CARE ON CASE AM LABS STILL FLUID OVERLOADED 01-31 SEEN BY PULMONARY AND NEUROLOGY AND PALLIATIVE CARE STILL OVERLOADED MADE SOME UTTERANCES TODAY DW RN AND PT SQUEEZED HIS RIGHT HAND LEFT SIDE WEAKNESS AM LABS INCREASE ACTIVITY MOVE OUT OF ICU TRANSFER OUT OF ICU Physical Exam Vital signs: Vital Signs 01/30/18 11:00 01/30/18 11:01 01/30/18 12:00 Temperature 98.2 F Pulse Rate 83 84 88 Respiratory Rate 19 22 26 H Blood Pressure 155/80 H 166/91 H Pulse Oximetry 98 98 99 01/30/18 12:01 01/30/18 12:28 01/30/18 12:29 Temperature Pulse Rate 91 H 93 H Respiratory Rate 19 20 Blood Pressure 166/91 H Pulse Oximetry 99 96 01/30/18 13:00 01/30/18 13:01 01/30/18 14:00 Temperature Pulse Rate 94 H 97 H 101 H Respiratory Rate 31 H 22 23 Blood Pressure 131/77 136/84 Pulse Oximetry 97 97 97 01/30/18 14:46 01/30/18 15:00 01/30/18 15:01 Temperature Pulse Rate 102 H 102 H 101 H Respiratory Rate 23 24 25 H Blood Pressure 125/93 H 129/85 Pulse Oximetry 98 98 98 01/30/18 15:15 01/30/18 15:31 01/30/18 15:45 Temperature Pulse Rate 104 H 103 H 102 H Respiratory Rate 23 25 H 24 Blood Pressure 131/85 112/79 113/74 Pulse Oximetry 98 99 99 01/30/18 16:00 01/30/18 16:01 01/30/18 16:15 Temperature 97.4 F L Pulse Rate 103 H 103 H 109 H Respiratory Rate 25 H 25 H 25 H Blood Pressure 122/86 122/86 117/73 Pulse Oximetry 99 99 98 01/30/18 20:00 01/30/18 20:42 01/31/18 00:00 Temperature 98.5 F 98.2 F Pulse Rate 98 H 98 H 92 H Respiratory Rate 25 H 24 24 Blood Pressure 148/80 H 145/89 H Pulse Oximetry 98 98 98 01/31/18 00:05 01/31/18 04:00 01/31/18 04:06 Temperature 98.4 F Pulse Rate 84 83 Respiratory Rate 23 22 Blood Pressure 119/83 Pulse Oximetry 100 98 100 01/31/18 08:34 Temperature Pulse Rate 89 Respiratory Rate 24 Blood Pressure Pulse Oximetry 100 Intake & Output 01/30/18 01/31/18 01/31/18 18:59 06:59 18:59 Intake Total 807 / 807 886 / 886 105 / 105 Output Total 4200 / 4200 108 / 108 Balance -3393 / -3393 778 / 778 105 / 105 Weight 107 kg Intake: IV 105 / 105 105 / 105 Keppra Inj 500 MG In NS Inj 100 105 / 105 105 / 105 ML @ 400 mls/hr IV.SIG Q12H [facility] Rx#:[id number] Tube Feeding 642 / 642 626 / 626 Tube Irrigant 60 / 60 60 / 60 Water Bolus Amount 200 / 200 Output: Urine 0 / 0 0 / 0 Stool 200 / 200 100 / 100 Pleural Fluid 0 / 0 0 / 0 Hemodialysis Amount 4000 / 4000 Urine Amount (Catheter) 0 / 0 0 / 0 Indwelling Temp Sensing 0 / 0 0 / 0 Catheter Straight 0 / 0 0 / 0 Chest Tube Drainage 0 / 0 8 / 8 #1 Left Pleural 0 / 0 0 / 0 #2 Right Pleural 8 / 8 Other: # Incontinent Voids 0 0 Date of Last Bowel Movement 01/30/18 01/31/18 Narrative: Patient AWAKE BUT FOLLOWS RANDOM COMMANDS- CONFUSED Pupils equal round reactive, anicteric, pink conjunctivae TRACKS SOME NG tube in place Left Vas-Cath in place Regular rate and rhythm S1, S2 NO S3 OR S4 bilateral clear breath sounds, on BiPAP, otherwise clear. Abdomen soft, distended, no peritonitis. Nontender. Generalized 3-4 edema both hands, feet and lower extremities. Awake,? Orientation, follows SOME commands, good hand composite science teacher on the right, bilateral feet plantarflexion, MADE SOME UTTERANCES TODAY - Urinary Catheter Management Indwelling Temp Sensing Catheter Cath placed during this visit: yes, but has since been removed by the nurse Reason for continuing: Decision to DC catheter Insertion date: 01/14/18 Insertion time: 22:00 Removal date: 01/21/18 Removal time: 18:00 Straight Cath placed during this visit: no Results - Labs CBC & Chem 7: 01/31/18 05:22 01/31/18 05:22 Laboratory Results - last 24 hr 01/30/18 01/30/18 01/30/18 11:02 11:38 17:23 WBC RBC Hgb Hct MCV MCH MCHC RDW Plt Count MPV Prelim Diff (Auto) Neut % (Auto) Lymph % (Auto) [place] % (Auto) Eos % (Auto) Baso % (Auto) Neut # (Auto) Lymph # (Auto) [place] # (Auto) Eos # (Auto) Baso # (Auto) WBC Differential Seg Neuts % (Manual) Band Neuts % (Manual) Lymphocytes % (Manual) Monocytes % (Manual) Myelocytes % (Man) Abs Neuts (Manual) Differential Comment Platelet Estimate Platelet Morphology PT INR Puncture Site Right radial Patient Temperature 98.6 O2 Saturation 93 ABG pH 7.41 ABG pCO2 31 L ABG pO2 90 ABG HCO3 19 L ABG O2 Content 10.9 L ABG Base Excess -4.6 L ABG Methemoglobin 2.0 Rocky Test + Hemoglobin 8.2 L Carboxyhemoglobin 1.5 O2 Delivery Device Bipap Vent Setting [id number] Inspired O2 30 Critical Value No Sodium Potassium Chloride Carbon Dioxide Anion Gap BUN Creatinine Estimated GFR POC Glucose 213 H 234 H Random Glucose Calcium Phosphorus Magnesium Total Bilirubin AST ALT Alkaline Phosphatase Ammonia Total Protein Albumin TSH Free T4 01/31/18 01/31/18 01/31/18 01:50 05:22 05:22 WBC 20.1 H RBC 2.44 L Hgb 7.5 L Hct 22.0 L MCV 90.0 MCH 30.8 MCHC 34.2 RDW 17.2 Plt Count 225 MPV 9.4 Prelim Diff (Auto) Slide review pending Neut % (Auto) 91.8 H Lymph % (Auto) 3.2 L [place] % (Auto) 4.4 Eos % (Auto) 0.5 Baso % (Auto) 0.1 Neut # (Auto) 18.4 H Lymph # (Auto) 0.6 L [place] # (Auto) 0.9 Eos # (Auto) 0.1 Baso # (Auto) 0.0 WBC Differential Manual diff final Seg Neuts % (Manual) 91 H Band Neuts % (Manual) 1 Lymphocytes % (Manual) 4 L Monocytes % (Manual) 2 Myelocytes % (Man) 2 H Abs Neuts (Manual) 18.9 H Differential Comment . Platelet Estimate Normal Platelet Morphology Normal PT 9.9 INR 1.0 Puncture Site Patient Temperature O2 Saturation ABG pH ABG pCO2 ABG pO2 ABG HCO3 ABG O2 Content ABG Base Excess ABG Methemoglobin Rocky Test Hemoglobin Carboxyhemoglobin O2 Delivery Device Vent Setting Inspired O2 Critical Value Sodium Potassium Chloride Carbon Dioxide Anion Gap BUN Creatinine Estimated GFR POC Glucose 326 H Random Glucose Calcium Phosphorus Magnesium Total Bilirubin AST ALT Alkaline Phosphatase Ammonia Total Protein Albumin TSH Free T4 01/31/18 01/31/18 01/31/18 05:22 05:22 07:11 WBC RBC Hgb Hct MCV MCH MCHC RDW Plt Count MPV Prelim Diff (Auto) Neut % (Auto) Lymph % (Auto) [place] % (Auto) Eos % (Auto) Baso % (Auto) Neut # (Auto) Lymph # (Auto) [place] # (Auto) Eos # (Auto) Baso # (Auto) WBC Differential Seg Neuts % (Manual) Band Neuts % (Manual) Lymphocytes % (Manual) Monocytes % (Manual) Myelocytes % (Man) Abs Neuts (Manual) Differential Comment Platelet Estimate Platelet Morphology PT INR Puncture Site Patient Temperature O2 Saturation ABG pH ABG pCO2 ABG pO2 ABG HCO3 ABG O2 Content ABG Base Excess ABG Methemoglobin Rocky Test Hemoglobin Carboxyhemoglobin O2 Delivery Device Vent Setting Inspired O2 Critical Value Sodium 139 Potassium 4.0 Chloride 99 Carbon Dioxide 24.6 Anion Gap 15 BUN 124 H Creatinine 7.01 H Estimated GFR 8 L POC Glucose 280 H Random Glucose 276 H Calcium 7.9 L Phosphorus 6.5 H D Magnesium 2.6 H Total Bilirubin 0.8 AST 33 ALT 71 Alkaline Phosphatase 177 H Ammonia 32 Total Protein 5.6 L D Albumin 2.9 L TSH 2.180 Free T4 0.99 Microbiology 01/29/18 14:35 Blood - Peripheral Aerobic Blood Culture - Preliminary No growth in 1 day 01/29/18 14:35 Blood - Peripheral Anaerobic Blood Culture - Preliminary gram positive cocci 01/29/18 14:27 Blood - Peripheral Aerobic Blood Culture - Preliminary No growth in 1 day 01/29/18 14:27 Blood - Peripheral Anaerobic Blood Culture - Preliminary No growth in 1 day Assessment and Plan - Plan 62-year-old white male who was admitted with cardiogenic shock and acute respiratory failure requiring CPR and epinephrine in the field, after being found down at home and being witnessed to possibly have undergone seizure-like activity. Intubation was attempted in the field but were unable to do so, patient was ultimately intubated in the hospital, started on pressors, placed in the ICU on mechanical ventilation. Found to have bilateral pneumothoraces with chest tubes placed, had developed some pneumoperitoneum which surgically deemed might have been a leak from his chest tubes as opposed to an acute surgical abdomen. Patient was started on antibiotics empirically for possible aspiration pneumonia but was ultimately discontinued off of them by infectious disease. Developed rhabdomyolysis with worsening acute renal failure which became sustained, with the patient now undergoing dialysis via a permcath. Ultimately was discontinued off pressors, cardiology deferred heart cath due to renal failure. Patient had difficulty following commands after he was discontinued off of sedation and after extubation. 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 EEG was done which was unremarkable. 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 Repeat head MRI showing no acute changes, remote right CVA, cervical spine MRI showing diffuse disc desiccation but no obvious reasons that would indicate his difficulty in following motor commands. Continue PT, ordering OT and ST. Neurology on board, carotid ultrasound negative for significant stenosis. - on ASA, echo negative for thrombus, ejection fraction 55-60%. Possible seizure -Continue Keppra, EEG negative for epileptiform activity Non-STEMI, Elevated troponin -Cardiology consulted, echocardiogram normal LV function, poor candidate for invasive cardiac evaluation with renal failure and thrombocytopenia. Continue hydralazine, Coreg, isosorbide dinitrate, ASA, lipitor, no intervention at this time. Bilateral pneumothoraces, pneumomediastinum, acute respiratory failure -BL chest tubes placed, pneumothorax resolved, chest tubes removed 01/28/2018, pulmonary on board, likely traumatic etiology. Pulmonary following. Currently on BiPAP, wean to nasal cannula. Pneumoperitoneum with right retroperitoneal gas/gas around the right kidney -Likely secondary to bilateral pneumothoraces with no surgical intervention warranted per general surgery discussion with ED physician Hepatitis secondary to shock, in the background of hepatic steatosis and possible alcohol related cirrhosis -2/2 severe hepatic steatosis likely EtOH cirrhosis given US and MRI findings with fatty liver and trace ascites. LFTs now normalized, hepatic panel negative. -Continue thiamine and folate, on beta-blockers. Hepatic encephalopathy-last ammonia level was 5 days ago, almost normal, patient still has diarrhea with Dign[place]ield in place, decrease lactulose to once a day, recheck ammonia tomorrow. AMMONIA LEVEL WITHIN NORMAL LIMITS Aspiration PNA vs aspiration pneumonitis: resolved -Leukocytosis, could be steroid induced. Infectious disease following Antibiotic associated diarrea- C diff negative, the patient is also on lactulose. Acute kidney injury now possibly with end-stage renal disease, Rhabdomyolysis -Rhabdomyolysis is improving, recheck CK, nephrology following, dialyzing, no signs of renal improvement, HD on Sun ON HD SUN/SUN/SUNDAY diabetes mellitus hypothyroidism -Hold all oral hypoglycemic agents, Levemir started, increase to 10 units, BG is improving, continue levothyroxine, high-dose sliding scale insulin. Should get better with backing of steroids. Check hemoglobin A1c. Normocytic anemia thrombocytopenia Likely secondary to liver disease, unlikely HIT 2/2 timeframe, Elevated haptoglobin/LDH and peripheral smear , thrombocytopenia better, anemia is stable , restart aspirin , Occult blood positive. Would need further workup when more stable. Persistent leukocytosis -felt to be a leukemoid reaction per ID versus steroid-induced, wean off steroids, switch to oral, we will continue to trend, recheck CBC tomorrow, afebrile, monitor. Blood cultures are negative Cont Tube feeds Heparin for DVT prophylaxis Protonix for GI prophylaxis Discussed with nursing. WILL GET AM LABS CONSULT PALLIATIVE CARE TEAM KARISSA SISTER CHERIE TANNER [phone] Code Status: FULL CODE Discussed Condition With: RN AND PT Discharge Planning: PENDING IMPROVEMENT
--- NOTE | 2018-01-31 11:33 | P.CONPAL ---
Consult Service: Palliative Care Requesting Physician: Darinel Enamorado Reason for Consult: a. To assist with evaluation and management of symptoms including: Depression, dyspnea, encephalopathy b. To assist medical decision maker(s) with: better understanding of current medical conditions; weighing benefits/burdens of medical treatment options; making medical treatment decisions. Primary Care Provider: UNKNOWN History of Present Illness History of Present Illness: This is a 62-year-old male who presented to [facility] 01/14/2018 via EMS for altered mental status and seizures. He has had multiple admissions to [place] in 2018 mostly for alcohol intoxication the most recent was 4 days prior to this current admission. He has a long history of alcoholism. His reports he drinks 1 L of vodka daily. While in the ED he became obtunded and began vomiting dark material. Due to his inability to protect his airway, he was intubated. After the initial intubation he became combative and dislodged the tube acquiring removal of the initial ET tube and replacement of a second tube. After intubation, he subsequently went into cardiopulmonary arrest with ROSC after 2 cycles of CPR. Post CPR he was found to have significant subcu emphysema and was emergently sent to CT with CT of the head, chest and abdomen showed bilateral tension pneumothoraces as well as free air in the peritoneal cavity. Bilateral chest tubes were placed immediately and he was transferred to ICU where he arrested again and again had spontaneous return of circulation. Labs showed acute kidney injury, presumed to be from severe dehydration and aggressive IV fluid resuscitation was initiated. He was also found to have severe sepsis and vancomycin and cefepime were initiated with an infectious disease consultation and blood cultures. He remained critically ill requiring maximum doses of vasopressor support to include norepinephrine, vasopressin and epinephrine with subsequent worsening of his renal indices, eventually requiring dialysis. He initially required Flolan in addition to aggressive APRV mode of ventilation and after an 11-day course of intubation was subsequently extubated 01/25/2018. Diagnostic data on admission: * WBC 20.3, hemoglobin 14.3, hematocrit 42.5, platelets 135, sodium 136, potassium 4.9, chloride 86, carbon dioxide 14.9, anion gap 35, BUN 17, creatinine 2.27, lactic acid 14.5, calcium 8.5, magnesium 4.3, total bilirubin 2.9, AST 619, ALT 190, alk phos 181, troponin 0 0.52, serum alcohol less than 3. * Head CT showed no acute hemorrhage or mass stable area of encephalomalacia in the right lateral lobe. * Chest x-ray showed ETT in good position, subcutaneous emphysema in the clavicular and chest wall region. Probable pneumomediastinum. * CT of the cervical spine without contrast shows no evidence of fracture, multilevel degenerative findings. * CT of the abdomen and pelvis with IV contrast shows prominent hepatic steatosis nonspecific marked distention of the gallbladder with no calcified stones identified pancreas within normal limits. * Gallbladder ultrasound shows fatty infiltration of the liver, distended gallbladder with sludge in the dependent portion with no focal stones seen, common duct within normal size limits. 2D echocardiogram was completed showing an ejection fraction of 55-60% with estimated PAP 31 mmHg. He was evaluated by cardiology who opined a possible acute myocardial infarction on admission, prior to having to asystolic cardiac arrest's. The initial EKG suggested acute inferior ST elevation myocardial infarction although the ST segment elevation resolved over the next 24 hours. Troponin was mildly elevated however was seen in the setting of renal insufficiency. Given his acute kidney injury, cardiac catheterization was felt to have a higher risk than benefit ratio due to the possibility of dye-induced renal failure. He was evaluated by infectious disease who recommended Zosyn, fluconazole, KUB and CT anterior and posterior upper GI series when stable. He was seen by nephrology for acute kidney injury and likely need for dialytic intervention. Serum creatinine on arrival was 2.27 which deteriorated within the first 48 hours to a creatinine of 4.0 and EGFR at 15 with marginal urine output and a positive fluid balance. Previous renal function had been within the normal range with serum creatinine 0.8-1.0. Nephrology opined that the acute kidney failure was related to cardiogenic shock and after discussion with the ordered the initiation of diet this. His neurological status remains in question, not following commands consistently. Neurology workup was completed showing no new CVA and recommending continued Keppra for seizures. He has frequently required BiPAP support interfering with speech therapy evaluations. He is receiving tube feedings through left nare NG tube. He is seen in the intensive care unit, sitting up, on nasal cannula O2 with tube feeding infusing. He arouses to verbal stimuli, opens his eyes but appears to process information slowly. He was able to move his right foot to command but was able to elicit no other responses from the remaining 3 extremities. Per the nurse, he had followed commands with all extremities except his left hand earlier that day and respond to a painful sternal rub from the physician. He did nod appropriately, however the response was delayed. Past medical history Anxiety Depression CVA Diabetes Alcoholism Hypertension Hyperlipidemia Seizures Bipolar affective disorder GI bleed Fractured mandible Hypothyroidism Antiphospholipid antibody syndrome ADHD SANG Past surgical history Tonsillectomy Adenoidectomy Hernia repair Social history Smoked 1 pack/day for 25 years quit 15 years ago Binge drinks, long history of alcoholism. reports 1 L of vodka daily but has been known to drink up to 2 gallons on a binge daily. No history of illicit or prescribed medications. Family history Mother with kidney carcinoma in her early 80s. father with coronary artery disease, hyperactivity disorder suspicious for ADHD/bipolar, Parkinson's disease age 79. Function/Cognitive Trajectory: His psychiatric history and alcoholism have caused multiple admissions to the emergency room in the hospital, beginning to impact his success at business. 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 His business had begun to decline and he has subsequently lost his insurance. He had an acute decline on admission and remains in cardiogenic shock status. . Review of Systems Patient is minimally verbal and unable to provide their own ROS. A 12 part ROS taken as best as possible from medical record and available family. Constitutional: Reports weakness Respiratory: Reports shortness of breath Neurologic: Reports localized weakness (Left upper extremity) Psychiatric: Reports anxiety, Reports depression PMFSH - History History Provided By: Patient - Medical History Medical History: Medical History (Last Reviewed 01/31/18 @ 13:31 by Fatou Rowe) Anxiety CVA (cerebral vascular accident) Diabetes ETOH abuse Hypertension No significant past surgical history - Family History Family History: Family History (Last Reviewed 01/31/18 @ 13:31 by Fatou Rowe) Mother Kidney carcinoma Father CAD (coronary artery disease) - Tobacco History Second Hand Smoke Exposure: Yes Smoking Status: Unknown if ever smoked Tobacco Type: Cigarettes - Alcohol History How Often Do You Have a Drink Containing Alcohol: Unable to Obtain (but per has been an alcoholic for 20 years and drinks a liter of vodka daily) - Substance Use History Substance History: Unable to Obtain - Travel History Recent Travel in the [facility] Within the Last 8 Weeks: No Recent Travel Out of the Country Within the Last 8 Weeks: No - Immunization History Tetanus Immunization: Unable to Assess Hx Influenza Vaccine This Season: No Medications and Allergies Active Medications: Active Medications Acetaminophen (Tylenol) 650 mg PO UNSCH PRN PRN Reason: SEE LABEL COMMENTS Al Hydroxide/Mg Hydroxide (Milk Of Orion Cooper) 30 ml PO Q12H PRN PRN Reason: Mild Constipation Albuterol (Duoneb Neb (Prn)) 1 ampul NEB Q2HR NEB PRN PRN Reason: DYSPNEA Albuterol (Duoneb Neb (Tonja)) 1 ampul NEB Q6HR ALT NEB [facility] Last Admin: 01/31/18 08:30 Dose: 1 ampul Artificial Tears (Tears Naturale Opth Drops) 1 drop EACH EYE Q8H [facility] Last Admin: 01/31/18 09:06 Dose: 1 drop Aspirin (Aspirin Chew) 81 mg PO DAILY [facility] Last Admin: 01/31/18 09:06 Dose: 81 mg Atorvastatin Calcium (Lipitor) 20 mg PO DAILY [facility] Last Admin: 01/31/18 09:06 Dose: 20 mg Bisacodyl (Dulcolax Supp) 10 mg RECTAL DAILY PRN PRN Reason: SEVERE CONSITIPATION Carvedilol (Coreg) 6.25 mg PO BID [facility] Last Admin: 01/31/18 09:06 Dose: 6.25 mg Chlorhexidine Gluconate (Peridex 0.12% Oral Kit) 15 ml OROPHARYNG BID@0800, 2000 [facility] Last Admin: 01/31/18 09:07 Dose: 15 ml Dextrose (D50w Vial) 50 ml IV.PUSH UNSCH PRN PRN Reason: PER HYPOGLYCEMIA PROTOCOL Diphenhydramine HCl (Benadryl) 25 mg PO UNSCH PRN PRN Reason: SEE LABEL COMMENTS Diphenhydramine HCl (Benadryl) 25 mg PO UNSCH PRN PRN Reason: SEE LABEL COMMENTS Folic Acid (Folic Acid) 1 mg PO DAILY [facility] Last Admin: 01/31/18 09:06 Dose: 1 mg Gelatin (Gelfoam 12 Mm/7 Mm Topical) 1 foam TOPICAL PRN PRN PRN Reason: help stop bleeding from site Gentamicin Sulfate (Gentamicin Inj) 20 mg OTHER WITH DIALYSIS PRN PRN Reason: Dwell Gentamycin Lock Last Admin: 01/30/18 16:47 Dose: 20 mg Glucagon (Glucagon Inj) 1 mg OTHER PRN PRN PRN Reason: for Hypoglycemia Protocol Heparin Sodium (Porcine) (Heparin Inj) 0 units IV.FLUSH WITH DIALYSIS PRN PRN Reason: Flush each lumen Last Admin: 01/25/18 08:38 Dose: 2,000 units Heparin Sodium (Porcine) (Heparin Inj) 8,000 units OTHER WITH DIALYSIS PRN PRN Reason: for machine prime Heparin Sodium (Porcine) (Heparin Inj) 1,000 units OTHER WITH DIALYSIS PRN PRN Reason: Dwell Heparin to Fill Catheter Last Admin: 01/28/18 08:42 Dose: 1,000 units Heparin Sodium (Porcine) (Heparin Inj) 5,000 units SQ Q8HR TONJA Last Admin: 01/31/18 07:03 Dose: 5,000 units Hydralazine HCl (Apresoline Inj) 10 mg IV.PUSH Q1H PRN PRN Reason: sbp > 165 Last Admin: 01/27/18 00:30 Dose: 10 mg Hydralazine HCl (Apresoline) 100 mg PO Q8HR TONJA Last Admin: 01/31/18 07:03 Dose: 100 mg Levetiracetam 500 mg/ Sodium (Chloride) 105 mls @ 400 mls/hr IV.SIG Q12H TONJA Last Infusion: 01/31/18 07:37 Dose: Infused Albumin Human (Flexbumin 25% Inj) 100 mls @ 60 mls/hr IV.SIG WITH DIALYSIS PRN PRN Reason: hypotension / volume replace Last Infusion: 01/28/18 09:35 Dose: Infused Sodium Chloride (Ns Inj) 1,000 mls @ 0 mls/hr OTHER .Q0M PRN PRN Reason: for prime and rinse back Last Infusion: 01/26/18 02:33 Dose: Infused Sodium Chloride (Ns Inj) 1,000 mls @ 200 mls/hr OTHER .Q5H PRN PRN Reason: for dialyzer flush PRN Sodium Chloride (Ns Inj) 1,000 mls @ 0 mls/hr IV.CONT .Q0M PRN PRN Reason: hypotension / volume replace Insulin Detemir (Levemir Inj) 10 unit SQ HS TONJA Last Admin: 01/30/18 21:25 Dose: 10 unit Insulin Human Regular (Novolin R Correctional Sugar Inj) 0 units SQ Q6HR TONJA; Protocol Last Admin: 01/31/18 07:12 Dose: 15 units Isosorbide Dinitrate (Isordil) 20 mg PO Q8HR TONJA Last Admin: 01/31/18 07:04 Dose: 20 mg Labetalol HCl (Trandate Inj) 10 mg IV.PUSH Q4H PRN PRN Reason: HTN Last Admin: 01/27/18 01:22 Dose: 10 mg Lactulose (Lactulose Liq) 30 ml PO DAILY PRN PRN Reason: SEVERE CONSITIPATION Lactulose (Lactulose Liq) 30 ml PO DAILY [facility] Last Admin: 01/31/18 09:06 Dose: 30 ml Levothyroxine Sodium (Synthroid) 88 mcg PO DAILY@0600 [facility] Last Admin: 01/31/18 07:04 Dose: 88 mcg Mannitol (Mannitol Inj) 12.5 gm IV.PUSH UNSCH PRN PRN Reason: hypotension / volume replace Miscellaneous Medication () 1 each OROPHARYNG 0000,0400,1200,1600 [facility] Last Admin: 01/31/18 07:03 Dose: 1 each Morphine Sulfate (Morphine Inj) 2 mg IV.PUSH Q2H PRN PRN Reason: PAIN SCALE 6 TO 10 Last Admin: 01/26/18 10:01 Dose: 2 mg Multivitamins (Theragran) 1 tab PO DAILY [facility] Last Admin: 01/31/18 09:06 Dose: 1 tab Nitroglycerin (Nitro-Bid 2% Oint) 2 inch TOPICAL Q6HR PRN PRN Reason: Sbp>165, Dbp>90 Nitroglycerin (Nitrostat Sl) 0.4 mg SL Q5M PRN PRN Reason: CHEST PAIN Ondansetron HCl (Zofran Inj) 4 mg IV.PUSH Q6H PRN PRN Reason: NAUSEA OR VOMITING Last Admin: 01/15/18 05:38 Dose: 4 mg Ondansetron HCl (Zofran Inj) 4 mg IV.PUSH UNSCH PRN PRN Reason: NAUSEA OR VOMITING Pantoprazole Sodium (Protonix Inj) 40 mg IV.PUSH Q12H [facility] Last Admin: 01/31/18 01:57 Dose: 40 mg Prednisone (Deltasone) 20 mg PO DAILY [facility] Last Admin: 01/31/18 09:06 Dose: 20 mg Senna/Docusate Sodium (Ayleen-Colace) 1 tab PO BID [facility] Last Admin: 01/31/18 09:07 Dose: Not Given Sennosides (Senokot) 17.2 mg PO Q12H PRN PRN Reason: Moderate Constipation Sodium Chloride (Ns Flush) 2 ml IV.FLUSH BID [facility] Last Admin: 01/31/18 09:06 Dose: 2 ml Sodium Chloride (Ns Flush) 2 ml IV.FLUSH PRN PRN PRN Reason: FLUSH AFTER USING IV ACCESS Last Admin: 01/16/18 09:33 Dose: 2 ml Sodium Chloride (Ns Flush) 0 ml IV.FLUSH PRN PRN PRN Reason: FLUSH AFTER USING IV ACCESS Sodium Chloride (Ns Flush) 5 ml IV.FLUSH PRN PRN PRN Reason: flush each lumen during HD Sodium Chloride (Ns Flush) 5 ml IV.FLUSH PRN PRN PRN Reason: flush each lumen during HD Terbutaline Sulfate (Brethine Inj) 1 mg SQ UNSCH PRN PRN Reason: For Extravasation Thiamine HCl (Vitamin B1) 100 mg PO DAILY [facility] Last Admin: 01/31/18 09:06 Dose: 100 mg Allergies Allergy/AdvReac Type Severity Reaction Status Date / Time erythromycin base Allergy Severe Hives Verified 01/14/18 03:00 penicillin G Allergy Severe Hives Verified 01/14/18 03:00 Advance Directives Living Will: No Healthcare Surrogate: No Power of Assisted Living Associate: No Physical Exam Vital Signs: Vital Signs - 24 hr 01/30/18 11:00 01/30/18 11:01 01/30/18 12:00 Temperature 98.2 F Pulse Rate 83 84 88 Respiratory Rate 19 22 26 H Blood Pressure 155/80 H 166/91 H Pulse Oximetry 98 98 99 01/30/18 12:01 01/30/18 12:28 01/30/18 12:29 Temperature Pulse Rate 91 H 93 H Respiratory Rate 19 20 Blood Pressure 166/91 H Pulse Oximetry 99 96 01/30/18 13:00 01/30/18 13:01 01/30/18 14:00 Temperature Pulse Rate 94 H 97 H 101 H Respiratory Rate 31 H 22 23 Blood Pressure 131/77 136/84 Pulse Oximetry 97 97 97 01/30/18 14:46 01/30/18 15:00 01/30/18 15:01 Temperature Pulse Rate 102 H 102 H 101 H Respiratory Rate 23 24 25 H Blood Pressure 125/93 H 129/85 Pulse Oximetry 98 98 98 01/30/18 15:15 01/30/18 15:31 01/30/18 15:45 Temperature Pulse Rate 104 H 103 H 102 H Respiratory Rate 23 25 H 24 Blood Pressure 131/85 112/79 113/74 Pulse Oximetry 98 99 99 01/30/18 16:00 01/30/18 16:01 01/30/18 16:15 Temperature 97.4 F L Pulse Rate 103 H 103 H 109 H Respiratory Rate 25 H 25 H 25 H Blood Pressure 122/86 122/86 117/73 Pulse Oximetry 99 99 98 01/30/18 20:00 01/30/18 20:42 01/31/18 00:00 Temperature 98.5 F 98.2 F Pulse Rate 98 H 98 H 92 H Respiratory Rate 25 H 24 24 Blood Pressure 148/80 H 145/89 H Pulse Oximetry 98 98 98 01/31/18 00:05 01/31/18 04:00 01/31/18 04:06 Temperature 98.4 F Pulse Rate 84 83 Respiratory Rate 23 22 Blood Pressure 119/83 Pulse Oximetry 100 98 100 01/31/18 08:34 Temperature Pulse Rate 89 Respiratory Rate 24 Blood Pressure Pulse Oximetry 100 I&O: Intake & Output 01/29/18 01/30/18 01/31/18 02/01/18 06:59 06:59 06:59 06:59 Intake Total 2158 / 2158 1108 / 1108 1693 / 1693 105 / 105 Output Total 4400 / 4400 4308 / 4308 4308 / 4308 Balance -2242 / -2242 -3200 / -3200 -2615 / -2615 105 / 105 Weight 240 lb 4.862 oz 242 lb 8.136 oz 235 lb 14.314 oz Physical Exam: CONSTITUTIONAL/GENERAL: This is an overweight male patient, in no apparent distress. TUBES/LINES/DRAINS: PIV x2, left nare NGT, left IJ Vas-Cath, SKIN: No jaundice, rashes, or lesions. Ecchymoses on upper extremities. No wounds seen anteriorly. Skin temperature appropriate. Not diaphoretic. HEAD: Atraumatic. Normocephalic. EYES: Pupils equal and round and reactive. Extraocular motions intact. No scleral icterus. No injection or drainage. Fundi not examined. ENT: Hearing grossly normal. Nose without bleeding or purulent drainage. Throat without visible erythema, exudates, masses, or lesions. NECK: Trachea midline. Supple, nontender. No palpable thyroid enlargement or nodularity. CARDIOVASCULAR: Regular rate and rhythm without murmurs, gallops, or rubs. No JVD. Peripheral pulses symmetric. RESPIRATORY/CHEST: Symmetric, unlabored respirations. Coarse breath sounds with scattered rhonchi. Minimal residual crepitus. GASTROINTESTINAL: Abdomen soft, non-tender, nondistended. No hepato-splenomegaly , or palpable masses. No guarding. Bowel sounds present. GENITOURINARY: Without palpable bladder distension. Og catheter in place. MUSCULOSKELETAL: Extremities without clubbing or cyanosis, 1-2+ generalized edema. No joint tenderness or effusion noted. No calf tenderness. No mottling or clubbing. LYMPHATICS: No palpable cervical or supraclavicular adenopathy. NEUROLOGICAL: Arousable, lethargic, slow to respond, minimal movement of right foot to command, no response from remaining 3 extremities. Patient nods yes that he feels he is moving those extremities, however no movement is seen. PSYCHIATRIC: No obvious anxiety/depression. no apparent hallucinations or other psychotic thought process. . Diagnostic Tests Laboratory: Laboratory Results - last 72 hr 01/28/18 01/28/18 01/28/18 05:40 10:14 12:52 WBC RBC Hgb Hct MCV MCH MCHC RDW Plt Count MPV Prelim Diff (Auto) Neut % (Auto) Lymph % (Auto) Quay % (Auto) Eos % (Auto) Baso % (Auto) Neut # (Auto) Lymph # (Auto) Quay # (Auto) Eos # (Auto) Baso # (Auto) WBC Differential Seg Neuts % (Manual) Band Neuts % (Manual) Lymphocytes % (Manual) Monocytes % (Manual) Eosinophils % (Manual) Myelocytes % (Man) Promyelocytes % (Man) Abs Neuts (Manual) Differential Comment Platelet Estimate Platelet Morphology PT INR Puncture Site Patient Temperature O2 Saturation ABG pH ABG pCO2 ABG pO2 ABG HCO3 ABG O2 Content ABG Base Excess ABG Methemoglobin Rocky Test Hemoglobin Carboxyhemoglobin O2 Delivery Device Vent Setting Inspired O2 Critical Value Sodium 141 Potassium 3.6 Chloride 101 Carbon Dioxide 23.9 Anion Gap 16 H BUN 97 H Creatinine 5.60 H Estimated GFR 10 L POC Glucose 279 H Random Glucose 238 H Hemoglobin A1c Calcium 8.7 Phosphorus 4.3 Magnesium Total Bilirubin Direct Bilirubin Indirect Bilirubin AST ALT Alkaline Phosphatase Ammonia Total Creatine Kinase Total Protein Albumin 4.4 Thiamine 300 H TSH Free T4 Stl C.difficile DNA Amp St C. diff Tox Epid 027 01/28/18 01/28/18 01/28/18 13:33 16:42 16:44 WBC RBC Hgb Hct MCV MCH MCHC RDW Plt Count MPV Prelim Diff (Auto) Neut % (Auto) Lymph % (Auto) Quay % (Auto) Eos % (Auto) Baso % (Auto) Neut # (Auto) Lymph # (Auto) Quay # (Auto) Eos # (Auto) Baso # (Auto) WBC Differential Seg Neuts % (Manual) Band Neuts % (Manual) Lymphocytes % (Manual) Monocytes % (Manual) Eosinophils % (Manual) Myelocytes % (Man) Promyelocytes % (Man) Abs Neuts (Manual) Differential Comment Platelet Estimate Platelet Morphology PT INR Puncture Site Patient Temperature O2 Saturation ABG pH ABG pCO2 ABG pO2 ABG HCO3 ABG O2 Content ABG Base Excess ABG Methemoglobin Rocky Test Hemoglobin Carboxyhemoglobin O2 Delivery Device Vent Setting Inspired O2 Critical Value Sodium Potassium Chloride Carbon Dioxide Anion Gap BUN Creatinine Estimated GFR POC Glucose 300 H Random Glucose Hemoglobin A1c Calcium Phosphorus Magnesium Total Bilirubin 1.3 H Direct Bilirubin 0.4 H Indirect Bilirubin 0.9 H AST 31 ALT 92 H Alkaline Phosphatase 152 H Ammonia Total Creatine Kinase Total Protein 6.7 D Albumin 3.9 Thiamine TSH Free T4 Stl C.difficile DNA Amp Negative St C. diff Tox Epid 027 Negative 01/29/18 01/29/18 01/29/18 02:08 05:25 05:25 WBC 20.6 H RBC 2.66 L Hgb 8.2 L Hct 24.7 L MCV 93.0 MCH 31.0 MCHC 33.3 RDW 16.9 Plt Count 257 MPV 9.5 Prelim Diff (Auto) Slide review pending Neut % (Auto) 92.6 H Lymph % (Auto) 2.0 L Quay % (Auto) 5.2 Eos % (Auto) 0.0 Baso % (Auto) 0.2 Neut # (Auto) 19.1 H Lymph # (Auto) 0.4 L Quay # (Auto) 1.1 H Eos # (Auto) 0.0 Baso # (Auto) 0.0 WBC Differential Manual diff final Seg Neuts % (Manual) 94 H Band Neuts % (Manual) Lymphocytes % (Manual) 1 L Monocytes % (Manual) 3 Eosinophils % (Manual) Myelocytes % (Man) Promyelocytes % (Man) 2 H Abs Neuts (Manual) 19.8 H Differential Comment . Platelet Estimate Normal Platelet Morphology Enlarged H PT INR Puncture Site Patient Temperature O2 Saturation ABG pH ABG pCO2 ABG pO2 ABG HCO3 ABG O2 Content ABG Base Excess ABG Methemoglobin Rocky Test Hemoglobin Carboxyhemoglobin O2 Delivery Device Vent Setting Inspired O2 Critical Value Sodium 140 Potassium 3.5 Chloride 101 Carbon Dioxide 23.5 Anion Gap 16 H BUN 129 H Creatinine 7.36 H Estimated GFR 8 L POC Glucose 198 H Random Glucose 205 H Hemoglobin A1c Calcium 8.1 L Phosphorus 7.3 H D Magnesium Total Bilirubin Direct Bilirubin Indirect Bilirubin AST ALT Alkaline Phosphatase Ammonia Total Creatine Kinase Total Protein Albumin 3.6 Thiamine TSH Free T4 Stl C.difficile DNA Amp St C. diff Tox Epid 027 01/29/18 01/29/18 01/29/18 05:25 06:12 13:53 WBC RBC Hgb Hct MCV MCH MCHC RDW Plt Count MPV Prelim Diff (Auto) Neut % (Auto) Lymph % (Auto) Quay % (Auto) Eos % (Auto) Baso % (Auto) Neut # (Auto) Lymph # (Auto) Quay # (Auto) Eos # (Auto) Baso # (Auto) WBC Differential Seg Neuts % (Manual) Band Neuts % (Manual) Lymphocytes % (Manual) Monocytes % (Manual) Eosinophils % (Manual) Myelocytes % (Man) Promyelocytes % (Man) Abs Neuts (Manual) Differential Comment Platelet Estimate Platelet Morphology PT INR Puncture Site Patient Temperature O2 Saturation ABG pH ABG pCO2 ABG pO2 ABG HCO3 ABG O2 Content ABG Base Excess ABG Methemoglobin Rocky Test Hemoglobin Carboxyhemoglobin O2 Delivery Device Vent Setting Inspired O2 Critical Value Sodium Potassium Chloride Carbon Dioxide Anion Gap BUN Creatinine Estimated GFR POC Glucose 196 H 345 H Random Glucose Hemoglobin A1c 7.5 H Calcium Phosphorus Magnesium Total Bilirubin Direct Bilirubin Indirect Bilirubin AST ALT Alkaline Phosphatase Ammonia Total Creatine Kinase Total Protein Albumin Thiamine TSH Free T4 Stl C.difficile DNA Amp St C. diff Tox Epid 027 01/29/18 01/29/18 01/30/18 17:30 21:43 02:23 WBC RBC Hgb Hct MCV MCH MCHC RDW Plt Count MPV Prelim Diff (Auto) Neut % (Auto) Lymph % (Auto) Quay % (Auto) Eos % (Auto) Baso % (Auto) Neut # (Auto) Lymph # (Auto) Quay # (Auto) Eos # (Auto) Baso # (Auto) WBC Differential Seg Neuts % (Manual) Band Neuts % (Manual) Lymphocytes % (Manual) Monocytes % (Manual) Eosinophils % (Manual) Myelocytes % (Man) Promyelocytes % (Man) Abs Neuts (Manual) Differential Comment Platelet Estimate Platelet Morphology PT INR Puncture Site Patient Temperature O2 Saturation ABG pH ABG pCO2 ABG pO2 ABG HCO3 ABG O2 Content ABG Base Excess ABG Methemoglobin Rocky Test Hemoglobin Carboxyhemoglobin O2 Delivery Device Vent Setting Inspired O2 Critical Value Sodium Potassium Chloride Carbon Dioxide Anion Gap BUN Creatinine Estimated GFR POC Glucose 434 H 307 H 292 H Random Glucose Hemoglobin A1c Calcium Phosphorus Magnesium Total Bilirubin Direct Bilirubin Indirect Bilirubin AST ALT Alkaline Phosphatase Ammonia Total Creatine Kinase Total Protein Albumin Thiamine TSH Free T4 Stl C.difficile DNA Amp St C. diff Tox Epid 027 01/30/18 01/30/18 01/30/18 05:07 05:07 05:07 WBC 24.5 H RBC 2.50 L Hgb 7.7 L Hct 22.9 L MCV 91.8 MCH 30.9 MCHC 33.7 RDW 16.6 Plt Count 256 MPV 8.9 Prelim Diff (Auto) Slide review pending Neut % (Auto) 94.0 H Lymph % (Auto) 1.6 L Quay % (Auto) 3.8 Eos % (Auto) 0.4 Baso % (Auto) 0.2 Neut # (Auto) 23.0 H Lymph # (Auto) 0.4 L Quay # (Auto) 0.9 Eos # (Auto) 0.1 Baso # (Auto) 0.0 WBC Differential Manual diff final Seg Neuts % (Manual) 90 H Band Neuts % (Manual) 4 Lymphocytes % (Manual) 1 L Monocytes % (Manual) 1 Eosinophils % (Manual) 2 Myelocytes % (Man) 2 H Promyelocytes % (Man) Abs Neuts (Manual) 23.5 H Differential Comment . Platelet Estimate Normal Platelet Morphology Normal PT INR Puncture Site Patient Temperature O2 Saturation ABG pH ABG pCO2 ABG pO2 ABG HCO3 ABG O2 Content ABG Base Excess ABG Methemoglobin Rocky Test Hemoglobin Carboxyhemoglobin O2 Delivery Device Vent Setting Inspired O2 Critical Value Sodium 139 Potassium 3.5 Chloride 99 Carbon Dioxide 20.7 L Anion Gap 19 H BUN 174 H Creatinine 9.28 H Estimated GFR 6 L POC Glucose Random Glucose 284 H Hemoglobin A1c Calcium 7.4 L* Phosphorus 8.4 H D Magnesium Total Bilirubin Direct Bilirubin Indirect Bilirubin AST ALT Alkaline Phosphatase Ammonia 32 Total Creatine Kinase 235 Total Protein Albumin 3.3 L Thiamine TSH Free T4 Stl C.difficile DNA Amp St C. diff Tox Epid 027 01/30/18 01/30/18 01/30/18 05:32 11:02 11:38 WBC RBC Hgb Hct MCV MCH MCHC RDW Plt Count MPV Prelim Diff (Auto) Neut % (Auto) Lymph % (Auto) Quay % (Auto) Eos % (Auto) Baso % (Auto) Neut # (Auto) Lymph # (Auto) Quay # (Auto) Eos # (Auto) Baso # (Auto) WBC Differential Seg Neuts % (Manual) Band Neuts % (Manual) Lymphocytes % (Manual) Monocytes % (Manual) Eosinophils % (Manual) Myelocytes % (Man) Promyelocytes % (Man) Abs Neuts (Manual) Differential Comment Platelet Estimate Platelet Morphology PT INR Puncture Site Right radial Patient Temperature 98.6 O2 Saturation 93 ABG pH 7.41 ABG pCO2 31 L ABG pO2 90 ABG HCO3 19 L ABG O2 Content 10.9 L ABG Base Excess -4.6 L ABG Methemoglobin 2.0 Rocky Test + Hemoglobin 8.2 L Carboxyhemoglobin 1.5 O2 Delivery Device Bipap Vent Setting [id number] Inspired O2 30 Critical Value No Sodium Potassium Chloride Carbon Dioxide Anion Gap BUN Creatinine Estimated GFR POC Glucose 317 H 213 H Random Glucose Hemoglobin A1c Calcium Phosphorus Magnesium Total Bilirubin Direct Bilirubin Indirect Bilirubin AST ALT Alkaline Phosphatase Ammonia Total Creatine Kinase Total Protein Albumin Thiamine TSH Free T4 Stl C.difficile DNA Amp St C. diff Tox Epid 027 01/30/18 01/31/18 01/31/18 17:23 01:50 05:22 WBC 20.1 H RBC 2.44 L Hgb 7.5 L Hct 22.0 L MCV 90.0 MCH 30.8 MCHC 34.2 RDW 17.2 Plt Count 225 MPV 9.4 Prelim Diff (Auto) Slide review pending Neut % (Auto) 91.8 H Lymph % (Auto) 3.2 L Quay % (Auto) 4.4 Eos % (Auto) 0.5 Baso % (Auto) 0.1 Neut # (Auto) 18.4 H Lymph # (Auto) 0.6 L Quay # (Auto) 0.9 Eos # (Auto) 0.1 Baso # (Auto) 0.0 WBC Differential Manual diff final Seg Neuts % (Manual) 91 H Band Neuts % (Manual) 1 Lymphocytes % (Manual) 4 L Monocytes % (Manual) 2 Eosinophils % (Manual) Myelocytes % (Man) 2 H Promyelocytes % (Man) Abs Neuts (Manual) 18.9 H Differential Comment . Platelet Estimate Normal Platelet Morphology Normal PT INR Puncture Site Patient Temperature O2 Saturation ABG pH ABG pCO2 ABG pO2 ABG HCO3 ABG O2 Content ABG Base Excess ABG Methemoglobin Rocky Test Hemoglobin Carboxyhemoglobin O2 Delivery Device Vent Setting Inspired O2 Critical Value Sodium Potassium Chloride Carbon Dioxide Anion Gap BUN Creatinine Estimated GFR POC Glucose 234 H 326 H Random Glucose Hemoglobin A1c Calcium Phosphorus Magnesium Total Bilirubin Direct Bilirubin Indirect Bilirubin AST ALT Alkaline Phosphatase Ammonia Total Creatine Kinase Total Protein Albumin Thiamine TSH Free T4 Stl C.difficile DNA Amp St C. diff Tox Epid 027 01/31/18 01/31/18 01/31/18 05:22 05:22 05:22 WBC RBC Hgb Hct MCV MCH MCHC RDW Plt Count MPV Prelim Diff (Auto) Neut % (Auto) Lymph % (Auto) Quay % (Auto) Eos % (Auto) Baso % (Auto) Neut # (Auto) Lymph # (Auto) Quay # (Auto) Eos # (Auto) Baso # (Auto) WBC Differential Seg Neuts % (Manual) Band Neuts % (Manual) Lymphocytes % (Manual) Monocytes % (Manual) Eosinophils % (Manual) Myelocytes % (Man) Promyelocytes % (Man) Abs Neuts (Manual) Differential Comment Platelet Estimate Platelet Morphology PT 9.9 INR 1.0 Puncture Site Patient Temperature O2 Saturation ABG pH ABG pCO2 ABG pO2 ABG HCO3 ABG O2 Content ABG Base Excess ABG Methemoglobin Rocky Test Hemoglobin Carboxyhemoglobin O2 Delivery Device Vent Setting Inspired O2 Critical Value Sodium 139 Potassium 4.0 Chloride 99 Carbon Dioxide 24.6 Anion Gap 15 BUN 124 H Creatinine 7.01 H Estimated GFR 8 L POC Glucose Random Glucose 276 H Hemoglobin A1c Calcium 7.9 L Phosphorus 6.5 H D Magnesium 2.6 H Total Bilirubin 0.8 Direct Bilirubin Indirect Bilirubin AST 33 ALT 71 Alkaline Phosphatase 177 H Ammonia 32 Total Creatine Kinase Total Protein 5.6 L D Albumin 2.9 L Thiamine TSH 2.180 Free T4 0.99 Stl C.difficile DNA Amp St C. diff Tox Epid 027 01/31/18 07:11 WBC RBC Hgb Hct MCV MCH MCHC RDW Plt Count MPV Prelim Diff (Auto) Neut % (Auto) Lymph % (Auto) Quay % (Auto) Eos % (Auto) Baso % (Auto) Neut # (Auto) Lymph # (Auto) Quay # (Auto) Eos # (Auto) Baso # (Auto) WBC Differential Seg Neuts % (Manual) Band Neuts % (Manual) Lymphocytes % (Manual) Monocytes % (Manual) Eosinophils % (Manual) Myelocytes % (Man) Promyelocytes % (Man) Abs Neuts (Manual) Differential Comment Platelet Estimate Platelet Morphology PT INR Puncture Site Patient Temperature O2 Saturation ABG pH ABG pCO2 ABG pO2 ABG HCO3 ABG O2 Content ABG Base Excess ABG Methemoglobin Rocky Test Hemoglobin Carboxyhemoglobin O2 Delivery Device Vent Setting Inspired O2 Critical Value Sodium Potassium Chloride Carbon Dioxide Anion Gap BUN Creatinine Estimated GFR POC Glucose 280 H Random Glucose Hemoglobin A1c Calcium Phosphorus Magnesium Total Bilirubin Direct Bilirubin Indirect Bilirubin AST ALT Alkaline Phosphatase Ammonia Total Creatine Kinase Total Protein Albumin Thiamine TSH Free T4 Stl C.difficile DNA Amp St C. diff Tox Epid 027 Result Diagrams: 01/31/18 05:22 01/31/18 05:22 Microbiology: Microbiology 01/29/18 14:35 Aerobic Blood Culture - Preliminary Blood - Peripheral No growth in 1 day Anaerobic Blood Culture - Preliminary gram positive cocci 01/29/18 14:27 Aerobic Blood Culture - Preliminary Blood - Peripheral No growth in 1 day Anaerobic Blood Culture - Preliminary No growth in 1 day Imaging: Cervical Spine CT 01/14/18 21:58 CONCLUSION: 1. No acute fracture or malalignment. 2. Subcutaneous emphysema again noted as well as the known right pneumothorax. Chest X-Ray 01/14/18 21:58 CONCLUSION: 1. ET tube in good position. 2. Subcutaneous emphysema clavicular and chest wall region. 3. Probable pneumomediastinum. Head CT 01/14/18 21:58 CONCLUSION: 1. No acute hemorrhage or mass effect. 2. Stable area of encephalomalacia in the right lateral lobe. . Chest CT 01/14/18 22:54 CONCLUSION: 1. Bilateral pneumothoraces right greater than left. 2. Apparent pneumomediastinum with gas also dissecting into the right side of the retroperitoneum and anterior to the right kidney. 3. Linear collections of gas along the anterior inner abdominal wall which could represent collections of dissected free air. Subcutaneous emphysema is also noted. 4. Consolidation in both posterior lung bases and posterior hilar regions. 5. Small right pleural effusion. 6. Suboptimal study secondary to extensive motion artifact. This limits the sensitivity. These findings were called to the emergency room physician immediately after the study was performed. Abdomen X-Ray 01/15/18 00:00 CONCLUSION: 1. No free intraperitoneal air. 2. Residual small pneumothoraces with small chest tubes in place. Chest X-Ray 01/15/18 00:03 CONCLUSION: 1. Interval placement of bilateral small bore chest tubes. 2. Interval placement nasogastric tube and right subclavian central venous line. 3. There is consolidation again noted in both perihilar regions and retrocardiac region. 4. Small apparent residual right pneumothorax and pneumomediastinum again noted. Chest X-Ray 01/15/18 02:18 CONCLUSION: 1. Optimal examination mild motion artifact. 2. The right sided chest tube is not well visualized on the current study there is a left-sided chest tube appears unchanged. 3. Bilateral subcutaneous emphysema right greater than left with abnormal lucency projected over portions of both upper lobes concern for residual pneumothoraces. 4. Dense consolidation again noted in both lungs. Abdomen/Bladder Ultrasound 01/16/18 00:00 CONCLUSION: 1. Trace ascites. 2. Negative renal ultrasound Abdomen/Pelvis CT 01/16/18 00:00 CONCLUSION: 1. Minimal free intraperitoneal air. I don't see etiology for such 2. Dense consolidation both lung bases with small bilateral chest tubes 3. Trace pneumothorax on the left. No pneumothorax on the right. 4. Moderate fatty replacement to the liver with prominent gallbladder Chest CT 01/16/18 00:00 . CONCLUSION: 1. Dense consolidation in both lung bases small bore chest tubes evident. 2. Trace pneumothorax on the left 3. No significant fluid. Chest X-Ray 01/16/18 00:00 CONCLUSION: 1. [Interval decrease in pneumothoraces and pneumomediastinum apparent mild residual medial left upper lobe. 2. Diffuse airspace opacities remain. Head MRI 01/16/18 06:37 CONCLUSION: 1. 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 2. There is no restricted diffusion to suggest extension of or new infarct. Chest X-Ray 01/17/18 06:00 CONCLUSION: 1. Mild residual lucency along the medial upper lobes which most characteristic of residual pneumomediastinum. 2. There is no definite pneumothorax. 3. The smallbore left-sided chest tube remains in place. Previously noted right -sided chest tube is not well visualized. 4. Hazy opacity throughout both lungs without significant change. Chest X-Ray 01/17/18 10:31 CONCLUSION: 1. No pneumothorax status post placement of left internal jugular Vas-Cath which has its tip in superior vena cava. 2. Diffuse pulmonary infiltrates consistent with severe pulmonary edema versus pneumonia. 3. Multiple other tubes and lines are stable. 4. Cardiomegaly. Chest X-Ray 01/18/18 06:00 CONCLUSION: Bilateral airspace opacities and small pleural effusions persist without significant change. Chest X-Ray 01/19/18 06:00 CONCLUSION: Stable single view the chest. Tubes and catheter in good position. Bilateral pigtail catheters S chest tubes and pulmonary vascular congestion persist. Chest X-Ray 01/20/18 06:00 CONCLUSION: Pleural effusions and bibasilar atelectasis persist. Tubes and catheters all in excellent position Chest X-Ray 01/21/18 06:00 CONCLUSION: No change in bilateral pulmonary opacity likely representing pulmonary edema. Chest X-Ray 01/22/18 06:00 CONCLUSION: Persistent bilateral pulmonary opacity. Increased in distinctness of the right hemidiaphragm indicating possible decrease in right lung base opacity. No other significant interval change. Chest X-Ray 01/24/18 04:00 CONCLUSION: No significant interval change with persistent left greater than right pulmonary opacity. Chest X-Ray 01/25/18 12:10 CONCLUSION: Slight improvement in aeration. Chest X-Ray 01/26/18 04:00 CONCLUSION: Mild basilar airspace disease similar to prior examination. Nasogastric tube and left central line in satisfactory position. Cervical Spine MRI 01/27/18 00:00 CONCLUSION: 1. No fracture or subluxation seen of the cervical spine but there is edema in the erector spinae muscles, especially on the right at the level of the upper cervical spine. This is nonspecific but presumably related to an acute or subacute strain. Localized early denervation would be conceivable but I don't see any atrophy. 2. There is an age-indeterminate left foraminal disc protrusion at C3/C4 that is probably impinging on the transiting left C4 nerve root. 3. Multilevel degenerative changes that otherwise appear chronic, as described. Associated high-grade foraminal stenosis on the right at C4/C5, bilateral at C5/C6 and C6/C7. No high-grade spinal stenosis demonstrated. Head MRI 01/27/18 00:00 CONCLUSION: 1. Remote right posterior parietal mid convexity infarct. 2. Mild cerebral atrophy with mild periventricular ischemic white matter demyelination. 3. Stable paranasal sinus mucosal disease and mastoiditis. 4. No acute abnormality. Specifically, no acute infarction or hemorrhage. Chest X-Ray 01/27/18 04:00 CONCLUSION: NG tube and left central line unchanged. Basilar airspace disease similar to prior exam. Abdomen X-Ray 01/28/18 00:00 CONCLUSION: Mild gaseous distention of bowel. Carotid Doppler Study 01/28/18 00:00 CONCLUSION: 1. Right Internal Carotid Artery: No significant stenosis or atherosclerotic plaque is visualized. 2. Left Internal Carotid Artery: No significant stenosis or atherosclerotic plaque is visualized. Chest X-Ray 01/28/18 12:31 CONCLUSION: 1. No pneumothorax identified. 2. Small bore chest tube on the left. 3. There is a dialysis catheter in place. Procedures: 01/14: Intubation x2 01/14: Right and left chest tube placement 01/14: Right brachial arterial line placement 01/14: Right subclavian central line placement 01/17: Placement of L IJ hemodialysis catheter. Patient/Family Conference Present at Family Conference: Spoke with patient's who provided much of the history. We discussed current clinical status and prognosis per specialists. We reviewed the below listed items and goals of care. She states that she knows he would want to be resuscitated but would not like to live in a vegetative state. She would like him to remain in [facility]. 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 She has requested case management assistance in determining Medicaid eligibility. Family Conference Location: Telephone Issues Discussed: * Palliative care role, purpose, approach * Additional medical, psychosocial, and spiritual history * Patients general health, functional status, and cognitive changes in the months leading up to the current hospitalization * Patient/family understanding of the current medical problems * Patient/family understanding of prognosis * Patients goals of care as best understood from advance directives and/or conversations and/or values * Current medical treatment options and benefits/burdens of those options * Likely scenarios comparing ongoing aggressive care with a transition to comfort measures only * Questions answered to the best of my ability * Palliative care contact information provided Assessment and Plan - Disease Oriented Problem List (1) Delirium tremens (2) Bilateral pneumothoraces (3) Endotracheally intubated (4) Elevated troponin (5) Acute renal failure (6) Alcohol abuse (7) Alcohol withdrawal seizure with complication (8) Rhabdomyolysis Pertinent Non-Medical Issues: Psychosocial: He lived in many states growing up. 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 He has been once to his current , from who he is now and has no children. 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 Legal: No advance directives completed. Ethical issues impacting care: Patient does not appear capacitated for decision- making. . Important Contacts: : Tressa Canseco [phone] Sister: Lala Canseco . Prognosis: His prognosis is guarded. He still has significant deficits and is at risk for recurrent complications, infections and decline. At this time he has multisystem organ compromise to include cardiogenic shock status post NM on admission with cardiac arrest x2, respiratory insufficiency, acute kidney injury on hemodialysis and hepatitis secondary to shock. It is the opinion of nephrology that his renal failure is caused by his cardiac failure equating to cardiorenal syndrome. He has left-sided weakness and appears aphasic at this time. Pending speech therapy evaluation. He was previously too unstable from a respiratory standpoint to undergo evaluation. He is at significant risk for continued complications and decline. . Code Status: Full Code Plan: PLAN: Legal decision maker: At this time the patient is not capacitated for decision-making and it is uncertain whether he statutes, his Tressa would be his proxy decision-maker. Goals: Aggressive at this time. CODE STATUS: FULL CODE SYMPTOMS: * Depression: He has a long history of depression for which he had been taking sertraline. Would recommend resuming when patient stable * Dyspnea: Intermittently requiring BiPAP. Likely combination cardiogenic shock , sepsis, renal failure, fluid volume excess. Pulmonary following. * Encephalopathy: Not following commands. He has a long history of alcoholism and may have sustained a mild hypoxic injury on admission. He also has a history of a previous stroke. It is uncertain how his neurological status will recover. Neurology following. SUMMARY This is a 62-year-old male with a significant history of severe alcoholism for many years admitted with altered mental status, myocardial infarction, status post cardiac arrest x2, intubation with subsequent extubation, left-sided weakness, hepatic steatosis, possible alcohol related cirrhosis, end-stage renal disease on hemodialysis, aspiration pneumonia and suffered bilateral pneumothoraces after CPR and intubation. He is at significant risk for recurrent complications and decline. At this time the family's goals remain aggressive. He would be hospice appropriate if goals were consistent. Palliative care will continue to follow the patient during hospital course as condition evolves, to assist patient/decision-maker with understanding of their medical conditions, weighing benefits/burdens of treatment options, for clarification of goals of treatment. Additionally will assist with any symptoms of palliative concern. . Appreciation Thank you for the opportunity to participate in the care of Oral Canseco. Attestation Attestation: To help prompt me to consider important information that might be impacting today's encounter and assessment, information from prior notes written by myself or my colleagues may have been "brought forward" into today's note. My signature on this note, however, is an attestation that I personally performed the exam, history, and/or decision-making noted today, and, unless otherwise indicated, the interactions with patient, family, and staff as well as the review of records all occurred today. I also attest that the listed assessment and stated plan reflect my best clinical judgment today based on the combination of historical information, prior notes, and today's exam/ interactions. When time spent is documented, it refers only to time spent today by the signer, or if indicated, combined time spent today by collaborating physician/nurse practitioner. .
[2018-01-31 17:19] LABS: Hemoglobin A1c 7.5 % (4.3-6.0)
[2018-01-31] MEDS: Insulin Detemir Inj 1,000 UNIT/10 ML Vial SQ SCH (22:42)
[2018-02-01] MEDS: Oral Hygiene Kit OROPHARYNG SCH ×3 (03:49→15:14)
[2018-02-01] MEDS: Pantoprazole Inj 40 MG Vial IV.PUSH SCH ×2 (03:49→16:08)
[2018-02-01] MEDS: Heparin - SQ 10,000 UNITS/ML Vial SQ SCH (05:45)
[2018-02-01] MEDS: Levothyroxine 88 MCG Tablet PO SCH (05:45)
[2018-02-01] MEDS: hydrALAZINE 25 MG Tablet PO SCH ×3 (05:46→22:09)
[2018-02-01] MEDS: Morphine Sulfate Inj 2 MG/ML Vial IV.PUSH PRN (05:51)
[2018-02-01] MEDS: Insulin NovoLIN Regular Correctional Sugar Inj SQ SCH ×4 (05:55→23:49)
[2018-02-01] MEDS: Artificial Tears Opth Drops 15 ML Bottle EACH EYE SCH ×2 (08:00→16:09)
[2018-02-01] MEDS: Chlorhexidine 0.12% Oral Kit 15 ML UDC OROPHARYNG SCH ×2 (08:00→22:23)
[2018-02-01 09:37] LABS: Baso % (Auto) 0.2 % (0.0-2.0); Eos % (Auto) 0.2 % (0.0-4.0); Lymph # (Auto) 0.4 th/mm3 (1.0-4.8); Mean Corpuscular Hemoglobin 30.6 pg (27.0-34.0); Mean Corpuscular Volume 92.8 fL (80.0-100.0); Mean Platelet Volume 9.2 fL (7.0-11.0); Mono # (Auto) 0.5 th/mm3 (0.0-0.9); Mono % (Auto) 2.5 % (0.0-8.0); Neut # (Auto) 17.6 th/mm3 (1.8-7.7); Neut % (Auto) 95.1 % (16.0-70.0); Platelet Count 204 th/mm3 (150-450); Red Blood Count 2.19 mil/mm3 (4.50-5.90); White Blood Count 18.6 th/mm3 (4.0-11.0)
[2018-02-01 09:46] LABS: Hematocrit 20.3 % (39.0-51.0); Hemoglobin 6.7 gm/dL (13.0-17.0)
[2018-02-01] MEDS: Folic Acid 1 MG Tablet PO SCH (10:00)
[2018-02-01] MEDS: Senna/Docusate Sodium 8.6/50 MG Tablet PO SCH ×2 (10:00→22:09)
[2018-02-01] MEDS: predniSONE 20 MG Tablet PO SCH (10:00)
[2018-02-01] MEDS: Carvedilol 6.25 MG Tablet PO SCH ×2 (10:00→22:09)
--- NOTE | 2018-02-01 10:06 | P.PNIM ---
Subjective Interval history: Patient is Sleeping when seen. No respiratory decompensation overnight. No fever. Physical Exam Vital signs: Last Vital Signs Temp 98.5 F 02/01/18 08:00 Pulse 93 H 02/01/18 09:15 Resp 22 02/01/18 09:15 BP 157/86 H 02/01/18 08:00 Pulse Ox 92 L 02/01/18 09:17 Intake & Output 01/30/18 01/31/18 02/01/18 02/02/18 06:59 06:59 06:59 06:59 Intake Total 1108 / 1108 1693 / 1693 1290 / 1290 Output Total 4308 / 4308 4308 / 4308 Balance -3200 / -3200 -2615 / -2615 1290 / 1290 Weight 110 kg 107 kg Narrative: GENERAL: NAD, A&Ox0 HEAD: Normocephalic. NECK: Supple, trachea midline. No lymphadenopathy. EYES: No scleral icterus. No injection or drainage. CARDIOVASCULAR: Regular rate and rhythm without murmurs, gallops, or rubs. RESPIRATORY: Breath sounds equal bilaterally. No accessory muscle use. GASTROINTESTINAL: Abdomen soft, non-tender, nondistended. MUSCULOSKELETAL: No cyanosis, or edema. SKIN: Warm and dry. Urinary Catheter Management Indwelling Temp Sensing Catheter: Cath placed during this visit: yes, but has since been removed by the nurse Insertion date: 01/14/18 Insertion time: 22:00 Removal date: 01/21/18 Removal time: 18:00 Straight: Cath placed during this visit: no Results Labs CBC & Chem 7: 02/01/18 09:21 01/31/18 05:22 Labs: Microbiology 01/29/18 14:35 Blood - Peripheral Aerobic Blood Culture - Preliminary No growth in 2 days 01/29/18 14:35 Blood - Peripheral Anaerobic Blood Culture - Preliminary Staphylococcus coag negative 01/29/18 14:27 Blood - Peripheral Aerobic Blood Culture - Preliminary No growth in 2 days 01/29/18 14:27 Blood - Peripheral Anaerobic Blood Culture - Preliminary No growth in 2 days Assessment and Plan Plan Summary: 62-year-old white male who was admitted with cardiogenic shock and acute respiratory failure requiring CPR and epinephrine in the field, after being found down at home and being witnessed to possibly have undergone seizure-like activity. Intubation was attempted in the field but were unable to do so, patient was ultimately intubated in the hospital, started on pressors, placed in the ICU on mechanical ventilation. Found to have bilateral pneumothoraces with chest tubes placed, had developed some pneumoperitoneum which surgically deemed might have been a leak from his chest tubes as opposed to an acute surgical abdomen. Patient was started on antibiotics empirically for possible aspiration pneumonia but was ultimately discontinued off of them by infectious disease. Developed rhabdomyolysis with worsening acute renal failure which became sustained, with the patient now undergoing dialysis via a permcath. Ultimately was discontinued off pressors, cardiology deferred heart cath due to renal failure. Patient had difficulty following commands after he was discontinued off of sedation and after extubation. 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 EEG was done which was unremarkable. 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 No significant improvement today Continue PT Continue OT Continue speech therapy Neurology following Follow ammonia levels intermittently Possible seizure Continue [facility] EEG was negative Non-STEMI Elevated troponin Cardiology following Continue hydralazine Continue Coreg Continue aspirin Continue Lipitor Continue isosorbide Bilateral pneumothoraces pneumomediastinum acute respiratory failure chest tubes removed 01/28/2018 Continue oxygen supplementation Continue BiPAP as needed Pneumoperitoneum with right retroperitoneal gas/gas around the right kidney -Likely secondary to bilateral pneumothoraces with no surgical intervention warranted per general surgery discussion with ED physician Hepatitis secondary to shock Hepatic steatosis Cirrhosis Possible alcohol abuse Continue thiamine Continue folic acid Continue beta-blockers End-stage renal disease Dialysis continue Nephrology following follow renal function diabetes mellitus Continue levemir Tube feeds Insulin Sliding Scale hypothyroidism continue levothyroxine Normocytic anemia thrombocytopenia Persistent leukocytosis follow CBC DVT prophylaxis Heparin Progress Note: Quality VTE Deep Vein Thrombosis/Pulmonary Embolism Present on Admission: No
[2018-02-01 10:11] LABS: Alanine Aminotransferase 62 U/L (12-78); Albumin 2.8 g/dL (3.4-5.0); Alkaline Phosphatase 206 U/L (45-117); Anion Gap 18 meq/L (5-15); Aspartate Aminotransferase 26 U/L (15-37); Blood Urea Nitrogen 176 mg/dL (7-18); Calcium 7.9 mg/dL (8.5-10.1); Carbon Dioxide 22.5 meq/L (21.0-32.0); Chloride 97 meq/L (98-107); Glomerular Filtration Rate 6 mL/min (>89); Glucose,Random 261 mg/dL (74-106); Magnesium 2.8 mg/dL (1.5-2.5); Phosphorus 7.8 mg/dL (2.5-4.9); Potassium 4.6 meq/L (3.5-5.1); Sodium 137 meq/L (136-145); Total Protein 5.8 g/dL (6.4-8.2)
--- NOTE | 2018-02-01 10:19 | P.PNPL ---
Subjective Interval history: Patient is lying in bed in NAD. Afebrile. Physical Exam Vital signs: Vital Signs 01/31/18 11:00 01/31/18 12:00 01/31/18 13:00 Temperature 97.7 F Pulse Rate 78 83 81 Respiratory Rate 20 26 H 26 H Blood Pressure 122/67 122/72 134/77 Pulse Oximetry 100 100 100 01/31/18 14:00 01/31/18 15:00 01/31/18 15:05 Temperature Pulse Rate 83 97 H 89 Respiratory Rate 30 H 40 H 19 Blood Pressure 138/78 117/68 Pulse Oximetry 100 100 99 01/31/18 15:36 01/31/18 16:00 01/31/18 20:00 Temperature 98.5 F 98.9 F Pulse Rate 84 90 92 H Respiratory Rate 20 20 22 Blood Pressure 126/79 182/86 H Pulse Oximetry 90 L 95 01/31/18 21:00 01/31/18 21:01 01/31/18 21:08 Temperature Pulse Rate 92 H Respiratory Rate 20 Blood Pressure Pulse Oximetry 94 L 95 02/01/18 00:00 02/01/18 01:05 02/01/18 02:58 Temperature 98.5 F Pulse Rate 94 H 88 Respiratory Rate 22 Blood Pressure 137/66 Pulse Oximetry 98 98 02/01/18 03:33 02/01/18 04:00 02/01/18 04:18 Temperature 99.0 F Pulse Rate 84 94 H 92 H Respiratory Rate 21 22 Blood Pressure 156/71 H Pulse Oximetry 94 L 02/01/18 08:00 02/01/18 09:15 02/01/18 09:17 Temperature 98.5 F Pulse Rate 93 H 93 H Respiratory Rate 28 H 22 Blood Pressure 157/86 H Pulse Oximetry 91 L 92 L Intake & Output 01/31/18 02/01/18 02/01/18 18:59 06:59 18:59 Intake Total 210 / 210 1080 / 1080 Balance 210 / 210 1080 / 1080 Intake: IV 210 / 210 105 / 105 Keppra Inj 500 MG In NS Inj 100 210 / 210 105 / 105 ML @ 400 mls/hr IV.SIG Q12H [facility] Rx#:[id number] Oral 220 / 220 Tube Feeding 755 / 755 Other: # Voids 2 Date of Last Bowel Movement 01/31/18 01/31/18 # Bowel Movements 1 - Constitutional no acute distress, obese - Routine HEENT Exam Head: Present: normocephalic, atraumatic Eye: Present: EOMI, PERRL, normal accommodation, conjunctivae pink ENT: Present: mucous membranes moist - Routine Neck Exam Present: supple, trachea midline - Routine Respiratory Exam Present: rhonchi - Routine Cardiovascular Exam Present: RRR, S1, S2 - Routine Abdominal Exam Present: soft, normoactive bowel sounds - Routine Extremities Exam Present: pulses intact - Routine Skin Exam Present: intact - Routine Neurological Exam Present: altered mental status - Urinary Catheter Management Indwelling Temp Sensing Catheter Cath placed during this visit: yes, but has since been removed by the nurse Reason for continuing: Decision to DC catheter Insertion date: 01/14/18 Insertion time: 22:00 Removal date: 01/21/18 Removal time: 18:00 Straight Cath placed during this visit: no Assessment and Plan - Plan 1. Respiratory insufficiency, status post extubation on 01/25/2018. 2. s/p pneumothoraces on arrival, status post bilateral small bore chest tube placement on 01/15/2018. removed 01/28 3. Acute kidney injury. 4. Leukocytosis. 5. Anemia. 6. NSTEMI 7. Morbid obesity. 8. Hypertension. 9. Diabetes mellitus. 10. s/p seizures. Plan Wean down oxygen as marga and maintain sats >92%. Bronchodilators-DuoNeb Aspiration precautions. Check CXR BIPAP nocturnally and p.r.n. for respiratory distress. Continue Prednisone 20mg daily CXR 01/28: No evidence of PTX, CT d/diana 01/29 Nutrition support. on tube feeds via an NG tube, Nepro @60 mL an hour. Patient might need PEG tube placement if continue to fail speech study. off antibiotics. Monitor for signs of infection( fever and WBC). ID is following Monitor renal function, avoid nephrotoxins. Renal is following GI and DVT prophylaxis. on Protonix 40 mg IV every 12 hours and heparin sq respectively.
[2018-02-01 10:24] LABS: Eosinophils 1 % (0-4); Lymphocytes 2 % (9-44); Metamyelocytes 1 % (0-1); Monocytes 2 % (0-8); Myelocytes 1 % (0-0); Platelet Estimate Normal (Normal); Platelet Morphology Normal (Normal)
[2018-02-01] MEDS ORDERED: Sodium Chlor 0.9% Inj 250 ML IV.SIG SCH (11:00)
--- NOTE | 2018-02-01 11:18 | XR ---
EXAM DATE: 02/01/2018 11:13 AM EST AGE/SEX: 62 years / Male INDICATIONS: Shortness of breath. CLINICAL DATA: This is the patient's subsequent encounter. Patient reports that signs and symptoms h ave been present for 1 week and indicates a pain score of 0/10. MEDICAL/SURGICAL HISTORY: Stroke. Hypertension. Diabetes mellitus type II. None. COMPARISON: [facility] [place], CHEST 1V SINGLE AP, 01/28/2018. . FINDINGS: There is an NG tube with its tip directed into the stomach. There is a left internal jugular central line placed with the tip overlying the SVC. The heart size is normal. There is patchy areas of densit y identified the bases bilaterally being worse on the left. The costophrenic angles are grossly clear . The previously seen left chest tube is been removed. No pneumothorax is seen. CONCLUSION: Mild bibasilar areas of consolidation or atelectasis being worse on the left. Electronically signed by: Dionisio Cantu MD 02/01/2018 11:17 AM EST
--- NOTE | 2018-02-01 13:58 | P.PNIM ---
Subjective Interval history: Anemia his present this morning. Patient is nonverbal. No complaints today. No fevers overnight. Physical Exam Vital signs: Last Vital Signs Temp 98.5 F 02/01/18 08:00 Pulse 93 H 02/01/18 09:15 Resp 22 02/01/18 09:15 BP 157/86 H 02/01/18 08:00 Pulse Ox 92 L 02/01/18 09:17 Intake & Output 01/30/18 01/31/18 02/01/18 02/02/18 06:59 06:59 06:59 06:59 Intake Total 1108 / 1108 1693 / 1693 1290 / 1290 Output Total 4308 / 4308 4308 / 4308 Balance -3200 / -3200 -2615 / -2615 1290 / 1290 Weight 110 kg 107 kg Narrative: GENERAL: NAD, A&Ox0 HEAD: Normocephalic. NECK: Supple, trachea midline. No lymphadenopathy. EYES: No scleral icterus. No injection or drainage. CARDIOVASCULAR: Regular rate and rhythm without murmurs, gallops, or rubs. RESPIRATORY: Breath sounds equal bilaterally. No accessory muscle use. GASTROINTESTINAL: Abdomen soft, non-tender, nondistended. MUSCULOSKELETAL: No cyanosis, or edema. SKIN: Warm and dry. Urinary Catheter Management Indwelling Temp Sensing Catheter: Cath placed during this visit: yes, but has since been removed by the nurse Insertion date: 01/14/18 Insertion time: 22:00 Removal date: 01/21/18 Removal time: 18:00 Straight: Cath placed during this visit: no Results Labs CBC & Chem 7: 02/01/18 09:21 02/01/18 09:21 Labs: Microbiology 01/29/18 14:27 Blood - Peripheral Aerobic Blood Culture - Preliminary No growth in 3 days 01/29/18 14:27 Blood - Peripheral Anaerobic Blood Culture - Preliminary No growth in 3 days 01/29/18 14:35 Blood - Peripheral Aerobic Blood Culture - Preliminary No growth in 3 days 01/29/18 14:35 Blood - Peripheral Anaerobic Blood Culture - Preliminary Staphylococcus coag negative Imaging Imaging: Impressions Chest X-Ray 02/01/18 10:18 CONCLUSION: Mild bibasilar areas of consolidation or atelectasis being worse on the left. Assessment and Plan Plan Summary: 62-year-old white male who was admitted with cardiogenic shock and acute respiratory failure requiring CPR and epinephrine in the field, after being found down at home and being witnessed to possibly have undergone seizure-like activity. Intubation was attempted in the field but were unable to do so, patient was ultimately intubated in the hospital, started on pressors, placed in the ICU on mechanical ventilation. Found to have bilateral pneumothoraces with chest tubes placed, had developed some pneumoperitoneum which surgically deemed might have been a leak from his chest tubes as opposed to an acute surgical abdomen. Patient was started on antibiotics empirically for possible aspiration pneumonia but was ultimately discontinued off of them by infectious disease. Developed rhabdomyolysis with worsening acute renal failure which became sustained, with the patient now undergoing dialysis via a permcath. Ultimately was discontinued off pressors, cardiology deferred heart cath due to renal failure. Patient had difficulty following commands after he was discontinued off of sedation and after extubation. 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 EEG was done which was unremarkable. 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 No significant improvement today Continue PT Continue OT Continue speech therapy Neurology following Follow ammonia levels intermittently Possible seizure Continue Keppra EEG was negative Non-STEMI Elevated troponin Cardiology following Continue hydralazine Continue Coreg Continue aspirin Continue Lipitor Continue isosorbide Bilateral pneumothoraces pneumomediastinum acute respiratory failure chest tubes removed 01/28/2018 Continue oxygen supplementation Continue BiPAP as needed Pneumoperitoneum with right retroperitoneal gas/gas around the right kidney -Likely secondary to bilateral pneumothoraces with no surgical intervention warranted per general surgery discussion with ED physician Hepatitis secondary to shock Hepatic steatosis Cirrhosis Possible alcohol abuse Continue thiamine Continue folic acid Continue beta-blockers End-stage renal disease Dialysis continue Nephrology following follow renal function diabetes mellitus Continue levemir Tube feeds Insulin Sliding Scale hypothyroidism continue levothyroxine Normocytic anemia thrombocytopenia Persistent leukocytosis follow CBC DVT prophylaxis Heparin Progress Note: Quality VTE Deep Vein Thrombosis/Pulmonary Embolism Present on Admission: No
--- NOTE | 2018-02-01 15:34 | P.PNNP ---
Subjective Interval history: Pt seen during HD today. NAD Eyes open, but not making any meaningful response. <Fabiola Macdonald R - Last Filed: 02/01/18 15:31> Physical Exam Vital signs: Vital Signs 01/31/18 15:36 01/31/18 16:00 01/31/18 20:00 Temperature 98.5 F 98.9 F Pulse Rate 84 90 92 H Respiratory Rate 20 20 22 Blood Pressure 126/79 182/86 H Pulse Oximetry 90 L 95 01/31/18 21:00 01/31/18 21:01 01/31/18 21:08 Temperature Pulse Rate 92 H Respiratory Rate 20 Blood Pressure Pulse Oximetry 94 L 95 02/01/18 00:00 02/01/18 01:05 02/01/18 02:58 Temperature 98.5 F Pulse Rate 94 H 88 Respiratory Rate 22 Blood Pressure 137/66 Pulse Oximetry 98 98 02/01/18 03:33 02/01/18 04:00 02/01/18 04:18 Temperature 99.0 F Pulse Rate 84 94 H 92 H Respiratory Rate 21 22 Blood Pressure 156/71 H Pulse Oximetry 94 L 02/01/18 08:00 02/01/18 09:15 02/01/18 09:17 Temperature 98.5 F Pulse Rate 94 H 93 H Respiratory Rate 28 H 22 Blood Pressure 157/86 H Pulse Oximetry 91 L 92 L Intake & Output 01/31/18 02/01/18 02/01/18 18:59 06:59 18:59 Intake Total 210 / 210 1080 / 1080 Balance 210 / 210 1080 / 1080 Intake: IV 210 / 210 105 / 105 Keppra Inj 500 MG In NS Inj 100 210 / 210 105 / 105 ML @ 400 mls/hr IV.SIG Q12H [facility] Rx#:[id number] Oral 220 / 220 Tube Feeding 755 / 755 Other: # Voids 2 Date of Last Bowel Movement 01/31/18 01/31/18 # Bowel Movements 1 - Constitutional no acute distress - Routine HEENT Exam Head: Present: normocephalic - Routine Neck Exam Present: supple - Routine Respiratory Exam Present: distant breath sounds, diminished air movement - Routine Cardiovascular Exam Present: RRR, S1, S2 - Routine Extremities Exam Present: edema (generalized edema) - Urinary Catheter Management Indwelling Temp Sensing Catheter Cath placed during this visit: yes, but has since been removed by the nurse Reason for continuing: Decision to DC catheter Insertion date: 01/14/18 Insertion time: 22:00 Removal date: 01/21/18 Removal time: 18:00 Straight Cath placed during this visit: no <Fabiola Macdonald Brent - Last Filed: 02/01/18 15:31> Vital signs: Vital Signs 02/01/18 16:00 02/01/18 17:15 02/01/18 17:16 Temperature 98.2 F 98.7 F 98.7 F Pulse Rate 99 H 95 H 96 H Respiratory Rate 20 20 20 Blood Pressure 156/76 H 119/73 133/77 Pulse Oximetry 98 91 L 91 L 02/01/18 17:30 02/01/18 20:00 02/01/18 22:00 Temperature 98.3 F 98.8 F Pulse Rate 94 H 99 H Respiratory Rate 22 24 Blood Pressure 141/73 H 142/75 H Pulse Oximetry 95 95 94 L 02/01/18 23:15 02/01/18 23:27 02/01/18 23:59 Temperature 98.1 F 98.1 F Pulse Rate 92 H 92 H 84 Respiratory Rate 20 20 Blood Pressure 124/65 Pulse Oximetry 94 L 94 L 02/02/18 03:38 02/02/18 04:00 02/02/18 07:50 Temperature 98.6 F 98.3 F Pulse Rate 87 84 Respiratory Rate 20 20 Blood Pressure 164/83 H 156/79 H Pulse Oximetry 94 L 100 94 L 02/02/18 08:00 Temperature Pulse Rate Respiratory Rate Blood Pressure Pulse Oximetry 96 Intake & Output 02/01/18 02/02/18 02/02/18 18:59 06:59 18:59 Intake Total 768 / 768 1762 / 1762 355 / 355 Output Total 3500 / 3500 Balance 768 / 768 1762 / 1762 -3145 / -3145 Weight 103 kg Intake: IV 105 / 105 355 / 355 NS Inj 250 ML @ 15 mls/hr IV. 250 / 250 SIG ONCE [facility] Rx#:[id number] Keppra Inj 500 MG In NS Inj 100 105 / 105 105 / 105 ML @ 400 mls/hr IV.SIG Q12H [facility] Rx#:[id number] Tube Feeding 663 / 663 462 / 462 Tube Irrigant 100 / 100 Other 400 / 400 Rbc As-3 Leukoreduced Unit 400 / 400 [id number] Intake (Blood Product) Amt 0 / 0 800 / 800 Rbc As-3 Leukoreduced Unit 0 / 0 400 / 400 [id number] Rbc As-3 Leukoreduced Unit 400 / 400 [id number] Output: Hemodialysis Amount 3500 / 3500 Other: # Voids 1 Date of Last Bowel Movement 03/02/18 - Urinary Catheter Management Indwelling Temp Sensing Catheter Cath placed during this visit: no Straight Cath placed during this visit: no <Kd Rudd - Last Filed: 02/02/18 12:36> Assessment and Plan - Assessment (1) Acute renal failure Code(s): N17.9 - Acute kidney failure, unspecified Status: Acute Plan: No sign of renal recovery at this point in time. Seen during HD today. Will plan on HD tomorrow for additional fluid removal as he will be receiving 2U of blood this evening. Noted 1 of 2 BCx positive for staph epi drawn 01/29. Potential contaminant? Defer to ID regarding repeat BCx. Could be drawn with HD 02/02/18 Medications should be adjusted for the patient's estimated GFR if clinically indicated. Avoid agents with significant potential for nephrotoxicity possible including NSAIDs for analgesia, iodine contrast agents. Gadolinium is contraindicated if the GFR is below 30. (2) Alcohol abuse Code(s): F10.10 - Alcohol abuse, uncomplicated Status: Acute (3) Alcohol withdrawal seizure with complication Code(s): F10.239 - Alcohol dependence with withdrawal, unspecified; R56.9 - Unspecified convulsions Status: Acute (4) Rhabdomyolysis Code(s): M62.82 - Rhabdomyolysis Status: Acute Plan: Related to previous seizure. (5) Anemia Code(s): D64.9 - Anemia, unspecified Status: Acute Plan: Receiving blood transfusion this evening. Repeat CBC with Fe panel tomorrow. Will start Epo with HD <Fabiola Macdonald - Last Filed: 02/01/18 15:31> - Assessment (1) Acute renal failure Code(s): N17.9 - Acute kidney failure, unspecified Status: Acute (2) Alcohol abuse Code(s): F10.10 - Alcohol abuse, uncomplicated Status: Acute (3) Alcohol withdrawal seizure with complication Code(s): F10.239 - Alcohol dependence with withdrawal, unspecified; R56.9 - Unspecified convulsions Status: Acute (4) Rhabdomyolysis Code(s): M62.82 - Rhabdomyolysis Status: Acute (5) Anemia Code(s): D64.9 - Anemia, unspecified Status: Acute - Attending Attestation The exam, history, and the medical decision-making described in the above note were completed with the assistance of the ISIDRA. I reviewed and agree with the findings presented. <Kd Rudd - Last Filed: 02/02/18 12:36>
[2018-02-01] MEDS ORDERED: Heparin 10,000 UNITS/10 ML Vial (for IV use) OTHER PRN (15:41)
[2018-02-01] MEDS ORDERED: Sod Chloride 0.9% Inj 1,000 ML IV.CONT PRN (15:41)
[2018-02-01] MEDS ORDERED: Sod Chloride 0.9% Inj 1,000 ML OTHER PRN ×2 (15:41)
[2018-02-01] MEDS ORDERED: Acetaminophen 325 MG Tablet PO PRN (15:41)
[2018-02-01] MEDS ORDERED: Albumin Human 25% Inj 100 ML IV.SIG PRN (15:41)
[2018-02-01] MEDS ORDERED: Gelatin 12 MM/7 MM Topical Foam TOPICAL PRN (15:41)
[2018-02-01] MEDS ORDERED: Influenza (Quadrivalent) Vaccine 0.5 ML Syringe IM ONE (21:00)
[2018-02-01] MEDS: Insulin Detemir Inj 1,000 UNIT/10 ML Vial SQ SCH (23:49)
[2018-02-02] MEDS: Pantoprazole Inj 40 MG Vial IV.PUSH SCH ×2 (02:00→13:23)
[2018-02-02] MEDS: Artificial Tears Opth Drops 15 ML Bottle EACH EYE SCH ×4 (02:18→23:58)
[2018-02-02] MEDS: Morphine Sulfate Inj 2 MG/ML Vial IV.PUSH PRN ×2 (03:56→20:35)
[2018-02-02] MEDS: Oral Hygiene Kit OROPHARYNG SCH ×3 (05:07→15:14)
[2018-02-02] MEDS: Levothyroxine 88 MCG Tablet PO SCH (05:28)
[2018-02-02] MEDS: hydrALAZINE 25 MG Tablet PO SCH ×3 (05:29→22:00)
[2018-02-02] MEDS: Insulin NovoLIN Regular Correctional Sugar Inj SQ SCH ×4 (05:36→23:56)
[2018-02-02 07:37] LABS: Baso % (Auto) 0.3 % (0.0-2.0); Eos # (Auto) 0.2 th/mm3 (0.0-0.4); Eos % (Auto) 1.7 % (0.0-4.0); Hematocrit 23.3 % (39.0-51.0); Hemoglobin 7.7 gm/dL (13.0-17.0); Lymph # (Auto) 0.6 th/mm3 (1.0-4.8); Lymph % (Auto) 4.4 % (9.0-44.0); Mean Corpuscular HGB Conc 33.2 % (32.0-36.0); Mean Corpuscular Hemoglobin 29.6 pg (27.0-34.0); Mean Corpuscular Volume 89.3 fL (80.0-100.0); Mean Platelet Volume 9.5 fL (7.0-11.0); Mono # (Auto) 0.5 th/mm3 (0.0-0.9); Neut # (Auto) 11.4 th/mm3 (1.8-7.7); Neut % (Auto) 89.6 % (16.0-70.0); Platelet Count 184 th/mm3 (150-450); Red Cell Distribution Width 17.9 % (11.6-17.2); White Blood Count 12.7 th/mm3 (4.0-11.0)
[2018-02-02 08:16] LABS: % Iron Saturation 23.8 % (20-50); Alanine Aminotransferase 48 U/L (12-78); Albumin 2.6 g/dL (3.4-5.0); Alkaline Phosphatase 164 U/L (45-117); Anion Gap 15 meq/L (5-15); Aspartate Aminotransferase 24 U/L (15-37); Blood Urea Nitrogen 120 mg/dL (7-18); Calcium 8.4 mg/dL (8.5-10.1); Carbon Dioxide 25.2 meq/L (21.0-32.0); Chloride 100 meq/L (98-107); Ferritin 452 ng/mL (26-388); Glomerular Filtration Rate 8 mL/min (>89); Glucose,Random 114 mg/dL (74-106); Iron 46 mcg/dL (65-175); Phosphorus 6.8 mg/dL (2.5-4.9); Potassium 4.4 meq/L (3.5-5.1); Sodium 140 meq/L (136-145); Total Iron Binding Capacity 193 mcg/dL (250-450); Total Protein 5.8 g/dL (6.4-8.2)
--- NOTE | 2018-02-02 08:18 | P.PNPL ---
Subjective Interval history: Patient is on 3L oxygen, Afebrile. Physical Exam Vital signs: Vital Signs 02/01/18 09:15 02/01/18 09:17 02/01/18 16:00 Temperature 98.2 F Pulse Rate 93 H 99 H Respiratory Rate 22 20 Blood Pressure 156/76 H Pulse Oximetry 92 L 98 02/01/18 17:15 02/01/18 17:16 02/01/18 17:30 Temperature 98.7 F 98.7 F 98.3 F Pulse Rate 95 H 96 H 94 H Respiratory Rate 20 20 22 Blood Pressure 119/73 133/77 141/73 H Pulse Oximetry 91 L 91 L 95 02/01/18 20:00 02/01/18 22:00 02/01/18 23:15 Temperature 98.8 F 98.1 F Pulse Rate 99 H 92 H Respiratory Rate 24 20 Blood Pressure 142/75 H Pulse Oximetry 95 94 L 94 L 02/01/18 23:27 02/01/18 23:59 02/02/18 03:38 Temperature 98.1 F Pulse Rate 92 H 84 Respiratory Rate 20 Blood Pressure 124/65 Pulse Oximetry 94 L 94 L 02/02/18 04:00 02/02/18 07:50 Temperature 98.6 F 98.3 F Pulse Rate 87 84 Respiratory Rate 20 20 Blood Pressure 164/83 H 156/79 H Pulse Oximetry 100 94 L Intake & Output 02/01/18 02/02/18 02/02/18 18:59 06:59 18:59 Intake Total 768 / 768 1762 / 1762 Balance 768 / 768 1762 / 1762 Weight 103 kg Intake: IV 105 / 105 Keppra Inj 500 MG In NS Inj 100 105 / 105 ML @ 400 mls/hr IV.SIG Q12H [facility] Rx#:[id number] Tube Feeding 663 / 663 462 / 462 Tube Irrigant 100 / 100 Other 400 / 400 Rbc As-3 Leukoreduced Unit 400 / 400 [id number] Intake (Blood Product) Amt 0 / 0 800 / 800 Rbc As-3 Leukoreduced Unit 0 / 0 400 / 400 [id number] Rbc As-3 Leukoreduced Unit 400 / 400 [id number] Other: # Voids 1 Date of Last Bowel Movement 03/02/18 - Constitutional no acute distress, obese - Routine HEENT Exam Head: Present: normocephalic, atraumatic Eye: Present: EOMI, PERRL, normal accommodation, conjunctivae pink ENT: Present: mucous membranes moist - Routine Neck Exam Present: supple, full ROM, trachea midline - Routine Respiratory Exam Present: CTA bilaterally - Routine Cardiovascular Exam Present: RRR, S1, S2 - Routine Abdominal Exam Present: soft, normoactive bowel sounds - Routine Extremities Exam Present: pulses intact - Routine Skin Exam Present: intact - Routine Neurological Exam Present: altered mental status - Urinary Catheter Management Indwelling Temp Sensing Catheter Cath placed during this visit: yes, but has since been removed by the nurse Reason for continuing: Decision to DC catheter Insertion date: 01/14/18 Insertion time: 22:00 Removal date: 01/21/18 Removal time: 18:00 Straight Cath placed during this visit: no Assessment and Plan - Plan 1. Respiratory insufficiency, status post extubation on 01/25/2018. 2. s/p pneumothoraces on arrival, status post bilateral small bore chest tube placement on 01/15/2018. removed 01/28 3. Acute kidney injury. 4. Leukocytosis. 5. Anemia. 6. NSTEMI 7. Morbid obesity. 8. Hypertension. 9. Diabetes mellitus. 10. s/p seizures. Plan Wean down oxygen as marga and maintain sats >92%. Bronchodilators-DuoNeb Aspiration precautions. CXR 02/01: Mild Bibasilar atelectasis BIPAP nocturnally and p.r.n. for respiratory distress. Continue Prednisone 20mg daily CXR 01/28: No evidence of PTX, CT d/diana 01/29 Nutrition support. on tube feeds via an NG tube, Nepro @60 mL an hour. Patient might need PEG tube placement if continue to fail speech study. off antibiotics. Monitor for signs of infection( fever and WBC). ID is following Monitor renal function, avoid nephrotoxins. Renal is following GI and DVT prophylaxis. on Protonix 40 mg IV every 12 hours and heparin sq respectively.
[2018-02-02] MEDS: Chlorhexidine 0.12% Oral Kit 15 ML UDC OROPHARYNG SCH ×2 (08:41→23:50)
[2018-02-02] MEDS: Folic Acid 1 MG Tablet PO SCH (10:17)
[2018-02-02] MEDS: Carvedilol 6.25 MG Tablet PO SCH ×2 (10:17→20:39)
[2018-02-02] MEDS: predniSONE 20 MG Tablet PO SCH (10:17)
[2018-02-02] MEDS: Senna/Docusate Sodium 8.6/50 MG Tablet PO SCH ×2 (10:18→20:37)
--- NOTE | 2018-02-02 13:18 | P.PNNP ---
Subjective Interval history: Patient awake but eyes wandering around the room and the patient does not make eye contact. Does not respond to simple commands or simple questions. Physical Exam Vital signs: Vital Signs 02/01/18 16:00 02/01/18 17:15 02/01/18 17:16 Temperature 98.2 F 98.7 F 98.7 F Pulse Rate 99 H 95 H 96 H Respiratory Rate 20 20 20 Blood Pressure 156/76 H 119/73 133/77 Pulse Oximetry 98 91 L 91 L 02/01/18 17:30 02/01/18 20:00 02/01/18 22:00 Temperature 98.3 F 98.8 F Pulse Rate 94 H 99 H Respiratory Rate 22 24 Blood Pressure 141/73 H 142/75 H Pulse Oximetry 95 95 94 L 02/01/18 23:15 02/01/18 23:27 02/01/18 23:59 Temperature 98.1 F 98.1 F Pulse Rate 92 H 92 H 84 Respiratory Rate 20 20 Blood Pressure 124/65 Pulse Oximetry 94 L 94 L 02/02/18 03:38 02/02/18 04:00 02/02/18 07:50 Temperature 98.6 F 98.3 F Pulse Rate 87 84 Respiratory Rate 20 20 Blood Pressure 164/83 H 156/79 H Pulse Oximetry 94 L 100 94 L 02/02/18 08:00 Temperature Pulse Rate Respiratory Rate Blood Pressure Pulse Oximetry 96 Intake & Output 02/01/18 02/02/18 02/02/18 18:59 06:59 18:59 Intake Total 768 / 768 1762 / 1762 355 / 355 Output Total 3500 / 3500 Balance 768 / 768 1762 / 1762 -3145 / -3145 Weight 103 kg Intake: IV 105 / 105 355 / 355 NS Inj 250 ML @ 15 mls/hr IV. 250 / 250 SIG ONCE [facility] Rx#:[id number] Keppra Inj 500 MG In NS Inj 100 105 / 105 105 / 105 ML @ 400 mls/hr IV.SIG Q12H [facility] Rx#:[id number] Tube Feeding 663 / 663 462 / 462 Tube Irrigant 100 / 100 Other 400 / 400 Rbc As-3 Leukoreduced Unit 400 / 400 [id number] Intake (Blood Product) Amt 0 / 0 800 / 800 Rbc As-3 Leukoreduced Unit 0 / 0 400 / 400 [id number] Rbc As-3 Leukoreduced Unit 400 / 400 [id number] Output: Hemodialysis Amount 3500 / 3500 Other: # Voids 1 Date of Last Bowel Movement 03/02/18 Narrative: GENERAL: Not in respiratory distress. SKIN: Warm and dry. HEAD: Normocephalic. EYES: No scleral icterus. No injection or drainage. NECK: Supple, trachea midline. No JVD or lymphadenopathy. CARDIOVASCULAR: Regular rate and rhythm without murmurs, gallops, or rubs. RESPIRATORY: Breath sounds equal bilaterally. No accessory muscle use. GASTROINTESTINAL: Abdomen soft, non-tender, nondistended. MUSCULOSKELETAL: No cyanosis, trace edema lower extremities. - Urinary Catheter Management Indwelling Temp Sensing Catheter Cath placed during this visit: yes, but has since been removed by the nurse Reason for continuing: Decision to DC catheter Insertion date: 01/14/18 Insertion time: 22:00 Removal date: 01/21/18 Removal time: 18:00 Straight Cath placed during this visit: no Assessment and Plan - Assessment (1) Acute renal failure Code(s): N17.9 - Acute kidney failure, unspecified Status: Acute Plan: No sign of renal recovery at this point in time. There is still a chance of renal recovery however the longer the patient remains dialysis dependent less likely this will occur. Medications should be adjusted for the patient's estimated GFR if clinically indicated. Avoid agents with significant potential for nephrotoxicity possible including NSAIDs for analgesia, iodine contrast agents. Gadolinium is contraindicated if the GFR is below 30. One blood culture is growing staph epi from 29 January the other culture is negative for that day. Will get ID opinion regarding whether or not Vas-Cath may need to be removed. If not we will plan for exchange of Vas-Cath to PermCath if there is no evidence of significant renal improvement next week. Patient appears to have encephalopathy with no significant improvement. His mental status does not improve prognosis likely very poor long-term. (2) Alcohol abuse Code(s): F10.10 - Alcohol abuse, uncomplicated Status: Acute (3) Alcohol withdrawal seizure with complication Code(s): F10.239 - Alcohol dependence with withdrawal, unspecified; R56.9 - Unspecified convulsions Status: Acute (4) Rhabdomyolysis Code(s): M62.82 - Rhabdomyolysis Status: Acute Plan: Related to previous seizure.
--- NOTE | 2018-02-02 14:02 | P.PNIM ---
Subjective Interval history: Patient remains severely encephalopathic. He does not follow commands. He makes some incomprehensible sounds. Physical Exam Vital signs: Vital Signs 02/01/18 16:00 02/01/18 17:15 02/01/18 17:16 Temperature 98.2 F 98.7 F 98.7 F Pulse Rate 99 H 95 H 96 H Respiratory Rate 20 20 20 Blood Pressure 156/76 H 119/73 133/77 Pulse Oximetry 98 91 L 91 L 02/01/18 17:30 02/01/18 20:00 02/01/18 22:00 Temperature 98.3 F 98.8 F Pulse Rate 94 H 99 H Respiratory Rate 22 24 Blood Pressure 141/73 H 142/75 H Pulse Oximetry 95 95 94 L 02/01/18 23:15 02/01/18 23:27 02/01/18 23:59 Temperature 98.1 F 98.1 F Pulse Rate 92 H 92 H 84 Respiratory Rate 20 20 Blood Pressure 124/65 Pulse Oximetry 94 L 94 L 02/02/18 03:38 02/02/18 04:00 02/02/18 07:50 Temperature 98.6 F 98.3 F Pulse Rate 87 84 Respiratory Rate 20 20 Blood Pressure 164/83 H 156/79 H Pulse Oximetry 94 L 100 94 L 02/02/18 08:00 02/02/18 12:00 Temperature 97.9 F Pulse Rate 85 Respiratory Rate 18 Blood Pressure 144/79 H Pulse Oximetry 96 98 Intake & Output 02/01/18 02/02/18 02/02/18 18:59 06:59 18:59 Intake Total 768 / 768 1762 / 1762 355 / 355 Output Total 3500 / 3500 Balance 768 / 768 1762 / 1762 -3145 / -3145 Weight 103 kg Intake: IV 105 / 105 355 / 355 NS Inj 250 ML @ 15 mls/hr IV. 250 / 250 SIG ONCE HENRY Rx#:[id number] Keppra Inj 500 MG In NS Inj 100 105 / 105 105 / 105 ML @ 400 mls/hr IV.SIG Q12H HENRY Rx#:[id number] Tube Feeding 663 / 663 462 / 462 Tube Irrigant 100 / 100 Other 400 / 400 Rbc As-3 Leukoreduced Unit 400 / 400 [id number] Intake (Blood Product) Amt 0 / 0 800 / 800 Rbc As-3 Leukoreduced Unit 0 / 0 400 / 400 [id number] Rbc As-3 Leukoreduced Unit 400 / 400 [id number] Output: Hemodialysis Amount 3500 / 3500 Other: # Voids 1 Date of Last Bowel Movement 03/02/18 Narrative: GENERAL: Ill-appearing but in no acute distress. Encephalopathic. CARDIOVASCULAR: Normal rate and regular rhythm without murmurs, gallops, or rubs. RESPIRATORY: Good respiratory efforts. Breath sounds equal and clear to auscultation bilaterally. GASTROINTESTINAL: Abdomen soft, non-tender, non-distended. Normal active bowel sounds MUSCULOSKELETAL: Extremities without cyanosis, or edema. NEURO: Awake, alert not oriented. Profoundly weak. Does not follow commands. Makes some sounds but no comprehensible speech. PSYCH: Appropriate mood and affect. - Urinary Catheter Management Indwelling Temp Sensing Catheter Cath placed during this visit: yes, but has since been removed by the nurse Reason for continuing: Decision to DC catheter Insertion date: 01/14/18 Insertion time: 22:00 Removal date: 01/21/18 Removal time: 18:00 Straight Cath placed during this visit: no Results - Labs CBC & Chem 7: 02/02/18 05:12 02/02/18 05:12 Laboratory Results - last 24 hr 02/01/18 02/01/18 02/01/18 12:05 14:48 15:47 WBC RBC Hgb Hct MCV MCH MCHC RDW Plt Count MPV Neut % (Auto) Lymph % (Auto) Charlton % (Auto) Eos % (Auto) Baso % (Auto) Neut # (Auto) Lymph # (Auto) Charlton # (Auto) Eos # (Auto) Baso # (Auto) WBC Differential Differential Comment Sodium Potassium Chloride Carbon Dioxide Anion Gap BUN Creatinine Estimated GFR POC Glucose 137 H 191 H Random Glucose Calcium Phosphorus Iron TIBC % Saturation Ferritin Total Bilirubin AST ALT Alkaline Phosphatase Total Protein Albumin Blood Type O Positive Antibody Screen Negative MTS Gel Crossmatch See Detail 02/01/18 02/01/18 02/02/18 17:39 23:44 05:12 WBC 12.7 H RBC 2.60 L Hgb 7.7 L Hct 23.3 L MCV 89.3 D MCH 29.6 MCHC 33.2 RDW 17.9 H Plt Count 184 MPV 9.5 Neut % (Auto) 89.6 H Lymph % (Auto) 4.4 L Charlton % (Auto) 4.0 Eos % (Auto) 1.7 Baso % (Auto) 0.3 Neut # (Auto) 11.4 H Lymph # (Auto) 0.6 L Charlton # (Auto) 0.5 Eos # (Auto) 0.2 Baso # (Auto) 0.0 WBC Differential . Differential Comment Auto diff final Sodium Potassium Chloride Carbon Dioxide Anion Gap BUN Creatinine Estimated GFR POC Glucose 257 H 259 H Random Glucose Calcium Phosphorus Iron TIBC % Saturation Ferritin Total Bilirubin AST ALT Alkaline Phosphatase Total Protein Albumin Blood Type Antibody Screen MTS Gel Crossmatch 02/02/18 02/02/18 02/02/18 05:12 05:35 11:31 WBC RBC Hgb Hct MCV MCH MCHC RDW Plt Count MPV Neut % (Auto) Lymph % (Auto) Charlton % (Auto) Eos % (Auto) Baso % (Auto) Neut # (Auto) Lymph # (Auto) Charlton # (Auto) Eos # (Auto) Baso # (Auto) WBC Differential Differential Comment Sodium 140 Potassium 4.4 Chloride 100 Carbon Dioxide 25.2 Anion Gap 15 BUN 120 H Creatinine 7.27 H Estimated GFR 8 L POC Glucose 137 H 138 H Random Glucose 114 H D Calcium 8.4 L Phosphorus 6.8 H D Iron 46 L TIBC 193 L % Saturation 23.8 Ferritin 452 H Total Bilirubin 1.0 AST 24 ALT 48 Alkaline Phosphatase 164 H Total Protein 5.8 L Albumin 2.6 L Blood Type Antibody Screen MTS Gel Crossmatch Microbiology 01/29/18 14:27 Blood - Peripheral Aerobic Blood Culture - Preliminary No growth in 4 days 01/29/18 14:27 Blood - Peripheral Anaerobic Blood Culture - Preliminary No growth in 4 days 01/29/18 14:35 Blood - Peripheral Aerobic Blood Culture - Preliminary No growth in 4 days 01/29/18 14:35 Blood - Peripheral Anaerobic Blood Culture - Final Staphylococcus epidermidis Assessment and Plan - Plan 62-year-old white male who was admitted with cardiogenic shock and acute respiratory failure requiring CPR and epinephrine in the field, after being found down at home and being witnessed to possibly have undergone seizure-like activity. Intubation was attempted in the field but were unable to do so, patient was ultimately intubated in the hospital, started on pressors, placed in the ICU on mechanical ventilation. Found to have bilateral pneumothoraces with chest tubes placed, had developed some pneumoperitoneum which surgically deemed might have been a leak from his chest tubes as opposed to an acute surgical abdomen. Patient was started on antibiotics empirically for possible aspiration pneumonia but was ultimately discontinued off of them by infectious disease. Developed rhabdomyolysis with worsening acute renal failure which became sustained, with the patient now undergoing dialysis. Ultimately was discontinued off pressors, cardiology deferred heart cath due to renal failure. Patient had difficulty following commands after he was discontinued off of sedation and after extubation. Had an MRI done on 01/17 which showed no acute findings, only an older right parietal CVA. EEG was done which was unremarkable. 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 If he had anoxic brain injury No significant improvement today Continue PT Continue OT Continue speech therapy Neurology following Follow ammonia levels intermittently Dysphasia: Has been persistent. Unclear if he had anoxic injury from cardiogenic shock and respiratory failure. - Continue NG tube. Will discuss with family. He may need a more permanent method of feeding such as PEG Possible seizure Continue Keppra EEG was negative Non-STEMI Elevated troponin Cardiology following Continue hydralazine Continue Coreg Continue aspirin Continue Lipitor Continue isosorbide Bilateral pneumothoraces pneumomediastinum acute respiratory failure chest tubes removed 01/28/2018 Continue oxygen supplementation Continue BiPAP as needed Pneumoperitoneum with right retroperitoneal gas/gas around the right kidney -Likely secondary to bilateral pneumothoraces with no surgical intervention warranted per general surgery discussion with ED physician Hepatitis secondary to shock Hepatic steatosis Cirrhosis Possible alcohol abuse Continue thiamine Continue folic acid Continue beta-blockers End-stage renal disease Dialysis continue Nephrology following, looking less likely that his renal function will recover. follow renal function diabetes mellitus Continue levemir Tube feeds Insulin Sliding Scale hypothyroidism continue levothyroxine Normocytic anemia thrombocytopenia Persistent leukocytosis Status post PRBC transfusion. H&H today stable. Follow-up H&H in a.m. DVT prophylaxis Heparin Discharge Planning: Patient will likely need long-term care. Persistent encephalopathy and renal failure.
[2018-02-02] MEDS: Insulin Detemir Inj 1,000 UNIT/10 ML Vial SQ SCH (20:36)
[2018-02-03] MEDS: Oral Hygiene Kit OROPHARYNG SCH ×5 (00:02→23:16)
[2018-02-03] MEDS: Pantoprazole Inj 40 MG Vial IV.PUSH SCH ×2 (02:50→15:21)
[2018-02-03] MEDS: Dextrose 50% in Water 50 ML Vial IV.PUSH PRN ×2 (06:14→09:12)
[2018-02-03] MEDS: hydrALAZINE 25 MG Tablet PO SCH ×4 (07:10→21:05)
[2018-02-03] MEDS: Insulin NovoLIN Regular Correctional Sugar Inj SQ SCH ×4 (07:11→23:15)
[2018-02-03] MEDS: Levothyroxine 88 MCG Tablet PO SCH (07:12)
[2018-02-03 07:40] LABS: Hemoglobin 8.3 gm/dL (13.0-17.0); Mean Corpuscular HGB Conc 34.5 % (32.0-36.0); Mean Corpuscular Hemoglobin 30.4 pg (27.0-34.0); Mean Corpuscular Volume 88.3 fL (80.0-100.0); Mean Platelet Volume 9.1 fL (7.0-11.0); Platelet Count 188 th/mm3 (150-450); Red Blood Count 2.72 mil/mm3 (4.50-5.90); Red Cell Distribution Width 18.2 % (11.6-17.2); White Blood Count 13.5 th/mm3 (4.0-11.0)
--- NOTE | 2018-02-03 08:26 | P.PNPL ---
Subjective Interval history: Patient is lying in bed in NAD. Afebrile. s/p HD yesterday with removal 3.5L. Physical Exam Vital signs: Vital Signs 02/02/18 12:00 02/02/18 16:00 02/02/18 20:00 Temperature 97.9 F 99.1 F 98.6 F Pulse Rate 85 91 H 90 Respiratory Rate 18 18 18 Blood Pressure 144/79 H 137/81 169/88 H Pulse Oximetry 98 98 96 02/03/18 00:00 02/03/18 00:25 02/03/18 04:00 Temperature 98.3 F 97.9 F Pulse Rate 79 78 Respiratory Rate 18 18 Blood Pressure 130/85 140/80 Pulse Oximetry 96 97 98 02/03/18 06:00 Temperature 97.7 F Pulse Rate 76 Respiratory Rate 20 Blood Pressure 138/76 Pulse Oximetry 99 Intake & Output 02/02/18 02/03/18 02/03/18 18:59 06:59 18:59 Intake Total 1180 / 1180 Output Total 3500 / 3500 200 / 200 Balance -2320 / -2320 -200 / -200 Weight 102.6 kg Intake: IV 460 / 460 NS Inj 250 ML @ 15 mls/hr IV. 250 / 250 SIG ONCE HENRY Rx#:[id number] Keppra Inj 500 MG In NS Inj 100 210 / 210 ML @ 400 mls/hr IV.SIG Q12H [facility]RY Rx#:[id number] Tube Feeding 720 / 720 Output: Urine 200 / 200 Hemodialysis Amount 3500 / 3500 Other: Date of Last Bowel Movement 03/02/18 - Constitutional no acute distress, obese - Routine HEENT Exam Head: Present: normocephalic, atraumatic Eye: Present: EOMI, PERRL, normal accommodation, conjunctivae pink ENT: Present: mucous membranes moist - Routine Neck Exam Present: supple, full ROM, trachea midline - Routine Respiratory Exam Present: CTA bilaterally - Routine Cardiovascular Exam Present: RRR, S1, S2 - Routine Abdominal Exam Present: soft, normoactive bowel sounds - Routine Extremities Exam Present: pulses intact - Routine Skin Exam Present: intact, dry - Routine Neurological Exam Present: altered mental status - Urinary Catheter Management Indwelling Temp Sensing Catheter Cath placed during this visit: yes, but has since been removed by the nurse Reason for continuing: Decision to DC catheter Insertion date: 01/14/18 Insertion time: 22:00 Removal date: 01/21/18 Removal time: 18:00 Straight Cath placed during this visit: no Assessment and Plan - Plan 1. Respiratory insufficiency, status post extubation on 01/25/2018. 2. s/p pneumothoraces on arrival, status post bilateral small bore chest tube placement on 01/15/2018. removed 01/28 3. Acute kidney injury. 4. Leukocytosis. 5. Anemia. 6. NSTEMI 7. Morbid obesity. 8. Hypertension. 9. Diabetes mellitus. 10. s/p seizures. Plan Wean down oxygen as marga and maintain sats >92%. Bronchodilators-DuoNeb Aspiration precautions. CXR 02/01: Mild Bibasilar atelectasis BIPAP nocturnally and p.r.n. for respiratory distress. Continue Prednisone 20mg daily CXR 01/28: No evidence of PTX, CT d/diana 01/29 Nutrition support. on tube feeds via an NG tube, Nepro @60 mL an hour. Patient might need PEG tube placement if continue to fail speech study. off antibiotics. Monitor for signs of infection( fever and WBC). ID is following Monitor renal function, avoid nephrotoxins. Renal is following. s/p HD 02/02 with 3.5L removed GI and DVT prophylaxis. on Protonix 40 mg IV every 12 hours and heparin sq respectively.
[2018-02-03 09:02] LABS: Albumin 2.6 g/dL (3.4-5.0); Calcium 8.4 mg/dL (8.5-10.1); Carbon Dioxide 29.5 meq/L (21.0-32.0); Potassium 4.6 meq/L (3.5-5.1); Total Protein 6.2 g/dL (6.4-8.2)
[2018-02-03] MEDS ORDERED: Dextrose 5%/NaCl 0.9% Inj 1,000 ML IV.CONT SCH (09:15)
[2018-02-03] MEDS: Artificial Tears Opth Drops 15 ML Bottle EACH EYE SCH ×3 (10:27→23:16)
[2018-02-03] MEDS: Chlorhexidine 0.12% Oral Kit 15 ML UDC OROPHARYNG SCH ×2 (10:27→20:45)
[2018-02-03] MEDS: Carvedilol 6.25 MG Tablet PO SCH ×2 (10:28→20:45)
[2018-02-03] MEDS: predniSONE 20 MG Tablet PO SCH (10:29)
[2018-02-03] MEDS: Folic Acid 1 MG Tablet PO SCH (10:29)
[2018-02-03] MEDS: Senna/Docusate Sodium 8.6/50 MG Tablet PO SCH ×2 (10:29→20:46)
--- NOTE | 2018-02-03 15:07 | P.PNIM ---
Subjective Interval history: Patient accidentally pulled out NG tube overnight. Hypoglycemic this morning. He has been given D50. Physical Exam Vital signs: Vital Signs 02/02/18 16:00 02/02/18 20:00 02/03/18 00:00 Temperature 99.1 F 98.6 F 98.3 F Pulse Rate 91 H 90 79 Respiratory Rate 18 18 18 Blood Pressure 137/81 169/88 H 130/85 Pulse Oximetry 98 96 96 02/03/18 00:25 02/03/18 04:00 02/03/18 06:00 Temperature 97.9 F 97.7 F Pulse Rate 78 76 Respiratory Rate 18 20 Blood Pressure 140/80 138/76 Pulse Oximetry 97 98 99 02/03/18 08:00 02/03/18 12:00 Temperature 97.7 F 99.0 F Pulse Rate 76 73 Respiratory Rate 18 18 Blood Pressure 175/86 H 173/92 H Pulse Oximetry 98 100 Intake & Output 02/02/18 02/03/18 02/03/18 18:59 06:59 18:59 Intake Total 1180 / 1180 105 / 105 Output Total 3500 / 3500 200 / 200 Balance -2320 / -2320 -200 / -200 105 / 105 Weight 102.6 kg Intake: IV 460 / 460 105 / 105 NS Inj 250 ML @ 15 mls/hr IV. 250 / 250 SIG ONCE HENRY Rx#:[id number] Keppra Inj 500 MG In NS Inj 100 210 / 210 105 / 105 ML @ 400 mls/hr IV.SIG Q12H HENRY Rx#:[id number] Tube Feeding 720 / 720 Output: Urine 200 / 200 Hemodialysis Amount 3500 / 3500 Other: Date of Last Bowel Movement 03/02/18 Narrative: GENERAL: Ill-appearing but in no acute distress. Encephalopathic. CARDIOVASCULAR: Normal rate and regular rhythm without murmurs, gallops, or rubs. RESPIRATORY: Good respiratory efforts. Breath sounds equal and clear to auscultation bilaterally. GASTROINTESTINAL: Abdomen soft, non-tender, non-distended. Normal active bowel sounds MUSCULOSKELETAL: Extremities without cyanosis, or edema. NEURO: Awake, alert not oriented. Profoundly weak. Does not follow commands. Makes some sounds but no comprehensible speech. PSYCH: Appropriate mood and affect. - Urinary Catheter Management Indwelling Temp Sensing Catheter Cath placed during this visit: yes, but has since been removed by the nurse Reason for continuing: Decision to DC catheter Insertion date: 01/14/18 Insertion time: 22:00 Removal date: 01/21/18 Removal time: 18:00 Straight Cath placed during this visit: no Results - Labs CBC & Chem 7: 02/03/18 06:59 02/03/18 06:59 Laboratory Results - last 24 hr 02/02/18 02/02/18 02/02/18 17:43 18:01 19:59 WBC RBC Hgb Hct MCV MCH MCHC RDW Plt Count MPV Sodium Potassium Chloride Carbon Dioxide Anion Gap BUN Creatinine Estimated GFR POC Glucose 345 H 315 H 310 H Random Glucose Calcium Total Bilirubin Direct Bilirubin Indirect Bilirubin AST ALT Alkaline Phosphatase Total Protein Albumin 02/02/18 02/03/18 02/03/18 23:48 06:10 06:12 WBC RBC Hgb Hct MCV MCH MCHC RDW Plt Count MPV Sodium Potassium Chloride Carbon Dioxide Anion Gap BUN Creatinine Estimated GFR POC Glucose 284 H 38 L* 36 L* Random Glucose Calcium Total Bilirubin Direct Bilirubin Indirect Bilirubin AST ALT Alkaline Phosphatase Total Protein Albumin 02/03/18 02/03/18 02/03/18 06:26 06:49 06:59 WBC 13.5 H RBC 2.72 L Hgb 8.3 L Hct 24.0 L MCV 88.3 MCH 30.4 MCHC 34.5 RDW 18.2 H Plt Count 188 MPV 9.1 Sodium Potassium Chloride Carbon Dioxide Anion Gap BUN Creatinine Estimated GFR POC Glucose 161 H 103 Random Glucose Calcium Total Bilirubin Direct Bilirubin Indirect Bilirubin AST ALT Alkaline Phosphatase Total Protein Albumin 02/03/18 02/03/18 02/03/18 06:59 09:01 09:03 WBC RBC Hgb Hct MCV MCH MCHC RDW Plt Count MPV Sodium 140 Potassium 4.6 Chloride 99 Carbon Dioxide 29.5 Anion Gap 12 BUN 109 H Creatinine 6.55 H Estimated GFR 9 L POC Glucose 44 L* 46 L* Random Glucose 90 Calcium 8.4 L Total Bilirubin 1.0 Direct Bilirubin 0.4 H Indirect Bilirubin 0.6 AST 23 ALT 43 Alkaline Phosphatase 141 H Total Protein 6.2 L Albumin 2.6 L 02/03/18 02/03/18 09:40 12:21 WBC RBC Hgb Hct MCV MCH MCHC RDW Plt Count MPV Sodium Potassium Chloride Carbon Dioxide Anion Gap BUN Creatinine Estimated GFR POC Glucose 144 H 105 Random Glucose Calcium Total Bilirubin Direct Bilirubin Indirect Bilirubin AST ALT Alkaline Phosphatase Total Protein Albumin Microbiology 01/29/18 14:27 Blood - Peripheral Aerobic Blood Culture - Final No growth in 5 days 01/29/18 14:27 Blood - Peripheral Anaerobic Blood Culture - Final No growth in 5 days 01/29/18 14:35 Blood - Peripheral Aerobic Blood Culture - Final No growth in 5 days 01/29/18 14:35 Blood - Peripheral Anaerobic Blood Culture - Final Staphylococcus epidermidis Assessment and Plan - Plan 62-year-old white male who was admitted with cardiogenic shock and acute respiratory failure requiring CPR and epinephrine in the field, after being found down at home and being witnessed to possibly have undergone seizure-like activity. Intubation was attempted in the field but were unable to do so, patient was ultimately intubated in the hospital, started on pressors, placed in the ICU on mechanical ventilation. Found to have bilateral pneumothoraces with chest tubes placed, had developed some pneumoperitoneum which surgically deemed might have been a leak from his chest tubes as opposed to an acute surgical abdomen. Patient was started on antibiotics empirically for possible aspiration pneumonia but was ultimately discontinued off of them by infectious disease. Developed rhabdomyolysis with worsening acute renal failure which became sustained, with the patient now undergoing dialysis. Ultimately was discontinued off pressors, cardiology deferred heart cath due to renal failure. Patient had difficulty following commands after he was discontinued off of sedation and after extubation. Had an MRI done on 01/17 which showed no acute findings, only an older right parietal CVA. EEG was done which was unremarkable. 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 If he had anoxic brain injury No significant clinical improvement so far Continue PT Continue OT Continue speech therapy Neurology following Follow ammonia levels intermittently Dysphasia: Has been persistent. Unclear if he had anoxic injury from cardiogenic shock and respiratory failure. -Patient pulled out NG tube. Will replace with Dobbhoff. He may need a more permanent method of feeding such as PEG. Will discuss with family. Possible seizure Continue Keppra EEG was negative Non-STEMI Elevated troponin Cardiology following Continue hydralazine Continue Coreg Continue aspirin Continue Lipitor Continue isosorbide Bilateral pneumothoraces pneumomediastinum acute respiratory failure chest tubes removed 01/28/2018 Continue oxygen supplementation Appreciate pulmonology following. Continue BiPAP as needed Pneumoperitoneum with right retroperitoneal gas/gas around the right kidney Likely secondary to bilateral pneumothoraces with no surgical intervention warranted per general surgery Continue Prednisone 20mg daily Hepatitis secondary to shock Hepatic steatosis Cirrhosis Possible alcohol abuse Continue thiamine Continue folic acid Continue beta-blockers End-stage renal disease Dialysis continue Nephrology following, looking less likely that his renal function will recover. follow renal function diabetes mellitus Hypoglycemic episode this morning after he removed the NG tube. Feeding tube replaced. Continue Levemir Insulin Sliding Scale hypothyroidism continue levothyroxine Normocytic anemia thrombocytopenia Persistent leukocytosis Status post PRBC transfusion. H&H today stable. Follow-up H&H in a.m. DVT prophylaxis Heparin Discharge Planning: Patient will likely need long-term care. Persistent encephalopathy and renal failure.
--- NOTE | 2018-02-03 15:36 | XR ---
EXAM DATE: 02/03/2018 3:19 PM EST AGE/SEX: 62 years / Male INDICATIONS: Evaluate dobhoff placement. CLINICAL DATA: This is the patient's subsequent encounter. Patient reports that signs and symptoms h ave been present for 1 day and indicates a pain score of 0/10. MEDICAL/SURGICAL HISTORY: Stroke. Hypertension. Diabetes mellitus type II. None. COMPAR[place]: [facility] [place], 02/01/2018. . FINDINGS: Patchy infiltrates are noted within the mid and lower lung valenzuela bilaterally consistent with pulmona ry edema versus pneumonia. Clinical correlation is recommended. Left internal jugular Vas-Cath has it s tip in the superior vena cava. Dobbhoff Feeding tube is noted below the diaphragm. The heart is sta ble. CONCLUSION: 1. Persistent patchy infiltrate within the mid and lower lung valenzuela bilaterally consistent with pul monary edema versus pneumonia. Clinical correlation is recommended. 2. Dobbhoff tube has its tip below the diaphragm at least to the level of the stomach. Electronically signed by: Darnell Dang MD 02/03/2018 3:35 PM EST
[2018-02-03] MEDS: Dextrose 5%/NaCl 0.9% Inj 1,000 ML IV.CONT SCH (18:13)
[2018-02-04] MEDS: Pantoprazole Inj 40 MG Vial IV.PUSH SCH ×2 (03:40→15:45)
[2018-02-04] MEDS: Dextrose 5%/NaCl 0.9% Inj 1,000 ML IV.CONT SCH ×2 (03:53→15:43)
[2018-02-04] MEDS: Oral Hygiene Kit OROPHARYNG SCH ×3 (04:36→16:06)
[2018-02-04] MEDS: Levothyroxine 88 MCG Tablet PO SCH (05:03)
[2018-02-04] MEDS: hydrALAZINE 25 MG Tablet PO SCH ×3 (05:04→21:09)
[2018-02-04] MEDS: Insulin NovoLIN Regular Correctional Sugar Inj SQ SCH ×3 (06:48→17:41)
[2018-02-04] MEDS: Artificial Tears Opth Drops 15 ML Bottle EACH EYE SCH ×2 (08:03→15:45)
[2018-02-04] MEDS: Chlorhexidine 0.12% Oral Kit 15 ML UDC OROPHARYNG SCH ×2 (08:03→20:36)
[2018-02-04] MEDS: predniSONE 20 MG Tablet PO SCH (08:04)
[2018-02-04] MEDS: Carvedilol 6.25 MG Tablet PO SCH ×2 (08:04→20:37)
[2018-02-04] MEDS: Senna/Docusate Sodium 8.6/50 MG Tablet PO SCH ×2 (08:05→20:37)
[2018-02-04] MEDS: Folic Acid 1 MG Tablet PO SCH (08:05)
--- NOTE | 2018-02-04 08:13 | P.PNNEU ---
Subjective Active Medications: Active Medications Acetaminophen (Tylenol) 650 mg PO UNSCH PRN PRN Reason: SEE LABEL COMMENTS Acetaminophen (Tylenol) 650 mg PO UNSCH PRN PRN Reason: SEE LABEL COMMENTS Al Hydroxide/Mg Hydroxide (Milk Of Orion Cooper) 30 ml PO Q12H PRN PRN Reason: Mild Constipation Albuterol (Duoneb Neb (Prn)) 1 ampul NEB Q2HR NEB PRN PRN Reason: DYSPNEA Albuterol (Duoneb Neb (Tonja)) 1 ampul NEB Q4HR NEB [facility] Last Admin: 02/04/18 03:55 Dose: 1 ampul Artificial Tears (Tears Naturale Opth Drops) 1 drop EACH EYE Q8H [facility] Last Admin: 02/04/18 08:03 Dose: 1 drop Aspirin (Aspirin Chew) 81 mg PO DAILY [facility] Last Admin: 02/04/18 08:04 Dose: Not Given Atorvastatin Calcium (Lipitor) 20 mg PO DAILY [facility] Last Admin: 02/04/18 08:05 Dose: Not Given Bisacodyl (Dulcolax Supp) 10 mg RECTAL DAILY PRN PRN Reason: SEVERE CONSITIPATION Carvedilol (Coreg) 6.25 mg PO BID [facility] Last Admin: 02/04/18 08:04 Dose: Not Given Chlorhexidine Gluconate (Peridex 0.12% Oral Kit) 15 ml OROPHARYNG BID@0800, 2000 [facility] Last Admin: 02/04/18 08:03 Dose: Not Given Clonidine HCl (Catapres) 0.1 mg PO UNSCH PRN PRN Reason: SEE LABEL COMMENTS Dextrose (D50w Vial) 50 ml IV.PUSH UNSCH PRN PRN Reason: PER HYPOGLYCEMIA PROTOCOL Last Admin: 02/03/18 09:12 Dose: 50 ml Diphenhydramine HCl (Benadryl) 25 mg PO UNSCH PRN PRN Reason: SEE LABEL COMMENTS Epoetin Jaleel (Epogen Inj) 8,000 unit DIALYSYS MoWeFr [facility] Last Admin: 02/02/18 11:30 Dose: 8,000 unit Folic Acid (Folic Acid) 1 mg PO DAILY [facility] Last Admin: 02/04/18 08:05 Dose: Not Given Furosemide (Lasix Inj) 20 mg IV.PUSH ONCE PRN PRN Reason: Between Units of blood Last Admin: 02/01/18 23:34 Dose: 20 mg Gelatin (Gelfoam 12 Mm/7 Mm Topical) 1 foam TOPICAL PRN PRN PRN Reason: help stop bleeding from site Gentamicin Sulfate (Gentamicin Inj) 20 mg OTHER WITH DIALYSIS PRN PRN Reason: Dwell Gentamycin Lock Last Admin: 02/02/18 11:30 Dose: 20 mg Glucagon (Glucagon Inj) 1 mg OTHER PRN PRN PRN Reason: for Hypoglycemia Protocol Heparin Sodium (Porcine) (Heparin Inj) 0 units IV.FLUSH WITH DIALYSIS PRN PRN Reason: Flush each lumen Last Admin: 01/25/18 08:38 Dose: 2,000 units Heparin Sodium (Porcine) (Heparin Inj) 5,000 units SQ Q8HR [facility] Last Admin: 02/01/18 05:45 Dose: 5,000 units Heparin Sodium (Porcine) (Heparin Inj) 8,000 units OTHER WITH DIALYSIS PRN PRN Reason: for machine prime Heparin Sodium (Porcine) (Heparin Inj) 1,000 units OTHER WITH DIALYSIS PRN PRN Reason: Dwell Heparin to Fill Catheter Hydralazine HCl (Apresoline Inj) 10 mg IV.PUSH Q1H PRN PRN Reason: sbp > 165 Last Admin: 01/27/18 00:30 Dose: 10 mg Hydralazine HCl (Apresoline) 100 mg PO Q8HR [facility] Last Admin: 02/04/18 05:04 Dose: Not Given Levetiracetam 500 mg/ Sodium (Chloride) 105 mls @ 400 mls/hr IV.SIG Q12H [facility] Last Infusion: 02/04/18 04:22 Dose: Infused Sodium Chloride (Ns Inj) 1,000 mls @ 0 mls/hr OTHER .Q0M PRN PRN Reason: for prime and rinse back Last Infusion: 01/26/18 02:33 Dose: Infused Sodium Chloride (Ns Inj) 1,000 mls @ 200 mls/hr OTHER .Q5H PRN PRN Reason: for dialyzer flush PRN Albumin Human (Flexbumin 25% Inj) 100 mls @ 60 mls/hr IV.SIG WITH DIALYSIS PRN PRN Reason: hypotension / volume replace Sodium Chloride (Ns Inj) 1,000 mls @ 0 mls/hr OTHER .Q0M PRN PRN Reason: for prime and rinse back Sodium Chloride (Ns Inj) 1,000 mls @ 200 mls/hr OTHER .Q5H PRN PRN Reason: for dialyzer flush PRN Sodium Chloride (Ns Inj) 1,000 mls @ 0 mls/hr IV.CONT .Q0M PRN PRN Reason: hypotension / volume replace Dextrose/Sodium Chloride (D5w/Normal Saline Inj) 1,000 mls @ 60 mls/hr IV.CONT .[id number] [facility] Last Admin: 02/04/18 03:53 Dose: 60 mls/hr Insulin Detemir (Levemir Inj) 10 unit SQ HS [facility] Last Admin: 02/02/18 20:36 Dose: 10 unit Insulin Human Regular (Novolin R Correctional Sugar Inj) 0 units SQ Q6HR [facility]; Protocol Last Admin: 02/04/18 06:48 Dose: Not Given Isosorbide Dinitrate (Isordil) 20 mg PO Q8HR [facility] Last Admin: 02/04/18 05:04 Dose: Not Given Labetalol HCl (Trandate Inj) 10 mg IV.PUSH Q4H PRN PRN Reason: HTN Last Admin: 01/27/18 01:22 Dose: 10 mg Lactulose (Lactulose Liq) 30 ml PO DAILY PRN PRN Reason: SEVERE CONSITIPATION Lactulose (Lactulose Liq) 30 ml PO DAILY [facility] Last Admin: 02/04/18 08:05 Dose: Not Given Levothyroxine Sodium (Synthroid) 88 mcg PO DAILY@0600 [facility] Last Admin: 02/04/18 05:03 Dose: Not Given Mannitol (Mannitol Inj) 12.5 gm IV.PUSH UNSCH PRN PRN Reason: hypotension / volume replace Miscellaneous Medication () 1 each OROPHARYNG 0000,0400,1200,1600 [facility] Last Admin: 02/04/18 04:36 Dose: 1 each Morphine Sulfate (Morphine Inj) 2 mg IV.PUSH Q2H PRN PRN Reason: PAIN SCALE 6 TO 10 Last Admin: 02/02/18 20:35 Dose: 2 mg Multivitamins (Theragran) 1 tab PO DAILY [facility] Last Admin: 02/04/18 08:05 Dose: Not Given Nitroglycerin (Nitro-Bid 2% Oint) 2 inch TOPICAL Q6HR PRN PRN Reason: Sbp>165, Dbp>90 Nitroglycerin (Nitrostat Sl) 0.4 mg SL Q5M PRN PRN Reason: CHEST PAIN Ondansetron HCl (Zofran Inj) 4 mg IV.PUSH UNSCH PRN PRN Reason: NAUSEA OR VOMITING Pantoprazole Sodium (Protonix Inj) 40 mg IV.PUSH Q12H [facility] Last Admin: 02/04/18 03:40 Dose: 40 mg Prednisone (Deltasone) 20 mg PO DAILY [facility] Last Admin: 02/04/18 08:04 Dose: Not Given Senna/Docusate Sodium (Ayleen-Colace) 1 tab PO BID [facility] Last Admin: 02/04/18 08:05 Dose: Not Given Sennosides (Senokot) 17.2 mg PO Q12H PRN PRN Reason: Moderate Constipation Sodium Chloride (Ns Flush) 2 ml IV.FLUSH BID [facility] Last Admin: 02/04/18 08:05 Dose: 2 ml Sodium Chloride (Ns Flush) 2 ml IV.FLUSH PRN PRN PRN Reason: FLUSH AFTER USING IV ACCESS Last Admin: 01/16/18 09:33 Dose: 2 ml Sodium Chloride (Ns Flush) 0 ml IV.FLUSH PRN PRN PRN Reason: FLUSH AFTER USING IV ACCESS Sodium Chloride (Ns Flush) 5 ml IV.FLUSH PRN PRN PRN Reason: flush each lumen during HD Terbutaline Sulfate (Brethine Inj) 1 mg SQ UNSCH PRN PRN Reason: For Extravasation Thiamine HCl (Vitamin B1) 100 mg PO DAILY [facility] Last Admin: 02/04/18 08:05 Dose: Not Given Allergies/Adverse Reactions: Allergies Allergy/AdvReac Type Severity Reaction Status Date / Time erythromycin base Allergy Severe Hives Verified 01/14/18 03:00 penicillin G Allergy Severe Hives Verified 01/14/18 03:00 Physical Exam Vital signs: Vital Signs 02/03/18 12:00 02/03/18 15:38 02/03/18 16:00 Temperature 99.0 F 97.7 F Pulse Rate 73 73 83 Respiratory Rate 18 18 16 Blood Pressure 173/92 H 187/82 H Pulse Oximetry 100 95 02/03/18 20:00 02/03/18 20:29 02/04/18 00:00 Temperature 98.3 F 98.3 F Pulse Rate 83 85 59 L Respiratory Rate 20 20 20 Blood Pressure 166/97 H 129/74 Pulse Oximetry 97 96 95 02/04/18 00:01 02/04/18 00:15 02/04/18 00:26 Temperature 98.2 F Pulse Rate 81 85 Respiratory Rate 20 20 Blood Pressure 178/103 H 162/88 H Pulse Oximetry 90 L 94 L 02/04/18 04:00 02/04/18 04:02 02/04/18 05:47 Temperature 98.4 F Pulse Rate 81 84 Respiratory Rate 20 20 Blood Pressure 193/91 H 168/98 H Pulse Oximetry 95 Intake & Output 02/03/18 02/04/18 02/04/18 18:59 06:59 18:59 Intake Total 210 / 210 2105 / 2105 Output Total 0 / 0 Balance 210 / 210 2105 / 2105 Weight 102.7 kg Intake: IV 210 / 210 2105 / 2105 D5W/Normal Saline Inj 1,000 ML 1000 / 1000 @ 60 mls/hr IV.CONT .[id number] [facility] Rx#:[id number] Keppra Inj 500 MG In NS Inj 100 210 / 210 105 / 105 ML @ 400 mls/hr IV.SIG Q12H [facility] Rx#:[id number] Output: Urine 0 / 0 Other: # Voids 0 Date of Last Bowel Movement 03/02/18 Narrative: awake and looks at me and nods head and tracks and sticks out tongue unclear if to command or not - Urinary Catheter Management Indwelling Temp Sensing Catheter Cath placed during this visit: yes, but has since been removed by the nurse Reason for continuing: Decision to DC catheter Insertion date: 01/14/18 Insertion time: 22:00 Removal date: 01/21/18 Removal time: 18:00 Straight Cath placed during this visit: no Objective Laboratory Results - last 24 hr 02/03/18 02/03/18 02/03/18 06:59 09:01 09:03 Sodium 140 Potassium 4.6 Chloride 99 Carbon Dioxide 29.5 Anion Gap 12 BUN 109 H Creatinine 6.55 H Estimated GFR 9 L POC Glucose 44 L* 46 L* Random Glucose 90 Calcium 8.4 L Total Bilirubin 1.0 Direct Bilirubin 0.4 H Indirect Bilirubin 0.6 AST 23 ALT 43 Alkaline Phosphatase 141 H Total Protein 6.2 L Albumin 2.6 L 02/03/18 02/03/18 02/03/18 09:40 12:21 18:09 Sodium Potassium Chloride Carbon Dioxide Anion Gap BUN Creatinine Estimated GFR POC Glucose 144 H 105 137 H Random Glucose Calcium Total Bilirubin Direct Bilirubin Indirect Bilirubin AST ALT Alkaline Phosphatase Total Protein Albumin 02/03/18 02/04/18 23:12 06:44 Sodium Potassium Chloride Carbon Dioxide Anion Gap BUN Creatinine Estimated GFR POC Glucose 176 H 233 H Random Glucose Calcium Total Bilirubin Direct Bilirubin Indirect Bilirubin AST ALT Alkaline Phosphatase Total Protein Albumin Microbiology 01/29/18 14:27 Aerobic Blood Culture - Final Blood - Peripheral No growth in 5 days Anaerobic Blood Culture - Final No growth in 5 days 01/29/18 14:35 Aerobic Blood Culture - Final Blood - Peripheral No growth in 5 days Anaerobic Blood Culture - Final Staphylococcus epidermidis Review/Management - Review/Management Plan: imp seems to be interacting a little b12 nl fu us old r cva on asa sz focus could be there on keppra echo neg if any afib would anticoag /01/31/18 interacting more follow some commands us neg improved neuro -- 02/04/18 more alert doing a little better every day neurowise oob
--- NOTE | 2018-02-04 10:09 | P.PNIM ---
Subjective Interval history: Patient pulled out feeding tube again. He is more awake today and able to follow some commands. Able to shake his head to answer some questions. However he remained confused. Physical Exam Vital signs: Vital Signs 02/03/18 12:00 02/03/18 15:38 02/03/18 16:00 Temperature 99.0 F 97.7 F Pulse Rate 73 73 83 Respiratory Rate 18 18 16 Blood Pressure 173/92 H 187/82 H Pulse Oximetry 100 95 02/03/18 20:00 02/03/18 20:29 02/04/18 00:00 Temperature 98.3 F 98.3 F Pulse Rate 83 85 59 L Respiratory Rate 20 20 20 Blood Pressure 166/97 H 129/74 Pulse Oximetry 97 96 95 02/04/18 00:01 02/04/18 00:15 02/04/18 00:26 Temperature 98.2 F Pulse Rate 81 85 Respiratory Rate 20 20 Blood Pressure 178/103 H 162/88 H Pulse Oximetry 90 L 94 L 02/04/18 04:00 02/04/18 04:02 02/04/18 05:47 Temperature 98.4 F Pulse Rate 81 84 Respiratory Rate 20 20 Blood Pressure 193/91 H 168/98 H Pulse Oximetry 95 02/04/18 08:00 02/04/18 08:37 Temperature 97.4 F L Pulse Rate 79 79 Respiratory Rate 20 18 Blood Pressure 195/95 H Pulse Oximetry 95 94 L Intake & Output 02/03/18 02/04/18 02/04/18 18:59 06:59 18:59 Intake Total 210 / 210 2105 / 2105 Output Total 0 / 0 Balance 210 / 210 2105 / 2105 Weight 102.7 kg Intake: IV 210 / 210 2105 / 2105 D5W/Normal Saline Inj 1,000 ML 1000 / 1000 @ 60 mls/hr IV.CONT .[id number] [facility] Rx#:[id number] Keppra Inj 500 MG In NS Inj 100 210 / 210 105 / 105 ML @ 400 mls/hr IV.SIG Q12H [facility] Rx#:[id number] Output: Urine 0 / 0 Other: # Voids 0 Date of Last Bowel Movement 03/02/18 Narrative: GENERAL: No acute distress. Encephalopathic. CARDIOVASCULAR: Normal rate and regular rhythm without murmurs, gallops, or rubs. RESPIRATORY: Good respiratory efforts. Breath sounds equal and clear to auscultation bilaterally. GASTROINTESTINAL: Abdomen soft, non-tender, non-distended. Normal active bowel sounds MUSCULOSKELETAL: Extremities without cyanosis, or edema. NEURO: Awake, alert not oriented. Profoundly weak. Can shake head to answer some questions. Makes some sounds but not comprehensible speech. PSYCH: Calm - Urinary Catheter Management Indwelling Temp Sensing Catheter Cath placed during this visit: yes, but has since been removed by the nurse Reason for continuing: Decision to DC catheter Insertion date: 01/14/18 Insertion time: 22:00 Removal date: 01/21/18 Removal time: 18:00 Straight Cath placed during this visit: no Results - Labs CBC & Chem 7: 02/03/18 06:59 02/03/18 06:59 Laboratory Results - last 24 hr 02/03/18 02/03/18 02/03/18 12:21 18:09 23:12 POC Glucose 105 137 H 176 H 02/04/18 06:44 POC Glucose 233 H Microbiology 01/29/18 14:27 Blood - Peripheral Aerobic Blood Culture - Final No growth in 5 days 01/29/18 14:27 Blood - Peripheral Anaerobic Blood Culture - Final No growth in 5 days 01/29/18 14:35 Blood - Peripheral Aerobic Blood Culture - Final No growth in 5 days 01/29/18 14:35 Blood - Peripheral Anaerobic Blood Culture - Final Staphylococcus epidermidis - Imaging Impressions Chest X-Ray 02/03/18 00:00 CONCLUSION: 1. Persistent patchy infiltrate within the mid and lower lung valenzuela bilaterally consistent with pulmonary edema versus pneumonia. Clinical correlation is recommended. 2. Dobbhoff tube has its tip below the diaphragm at least to the level of the stomach. Assessment and Plan - Plan 62-year-old white male who was admitted with cardiogenic shock and acute respiratory failure requiring CPR and epinephrine in the field, after being found down at home and being witnessed to possibly have undergone seizure-like activity. Intubation was attempted in the field but were unable to do so, patient was ultimately intubated in the hospital, started on pressors, placed in the ICU on mechanical ventilation. Found to have bilateral pneumothoraces with chest tubes placed, had developed some pneumoperitoneum which surgically deemed might have been a leak from his chest tubes as opposed to an acute surgical abdomen. Patient was started on antibiotics empirically for possible aspiration pneumonia but was ultimately discontinued off of them by infectious disease. Developed rhabdomyolysis with worsening acute renal failure which became sustained, with the patient now undergoing dialysis. Ultimately was discontinued off pressors, cardiology deferred heart cath due to renal failure. Patient had difficulty following commands after he was discontinued off of sedation and after extubation. Had an MRI done on 01/17 which showed no acute findings, only an older right parietal CVA. EEG was done which was unremarkable. 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 If he had anoxic brain injury No significant clinical improvement so far Continue PT Continue OT Continue speech therapy Neurology following Appeared to be making some mild improvement from a neurological standpoint. He passed a swallow evaluation. Appear to be more alert. Dysphasia: Finally improving. Unclear if he had anoxic injury from cardiogenic shock and respiratory failure. -Patient pulled out NG tube. -Speech therapy following and he passed a swallow evaluation. Modified diet per speech. Possible seizure Continue Keppra EEG was negative Non-STEMI Elevated troponin Cardiology following Continue hydralazine Continue Coreg Continue aspirin Continue Lipitor Continue isosorbide Bilateral pneumothoraces pneumomediastinum acute respiratory failure chest tubes removed 01/28/2018 Continue oxygen supplementation Appreciate pulmonology following. Continue BiPAP as needed Pneumoperitoneum with right retroperitoneal gas/gas around the right kidney Likely secondary to bilateral pneumothoraces with no surgical intervention warranted per general surgery Continue Prednisone 20mg daily Positive blood cultures for 01/29/18 sample: Staph epidermidis -1 out of 4 bottles.? Contaminant. - Infectious disease reconsulted per nephrology. Hepatitis secondary to shock Hepatic steatosis Cirrhosis Possible alcohol abuse Continue thiamine Continue folic acid Continue beta-blockers End-stage renal disease Dialysis continue Nephrology following, looking less likely that his renal function will recover. follow renal function diabetes mellitus Diabetic diet Continue Levemir Insulin Sliding Scale hypothyroidism continue levothyroxine Normocytic anemia thrombocytopenia Persistent leukocytosis Status post PRBC transfusion. H&H stable. Follow-up H&H in a.m. DVT prophylaxis Heparin Discharge Planning: Patient will likely need long-term care. Significant encephalopathy and renal failure. No insurance benefit.
--- NOTE | 2018-02-04 12:35 | P.PNNP ---
Subjective Interval history: Patient seen during his dialysis session. Not responding appropriately to questions or simple verbal commands. Is awake. Physical Exam Vital signs: Vital Signs 02/03/18 15:38 02/03/18 16:00 02/03/18 20:00 Temperature 97.7 F 98.3 F Pulse Rate 73 83 83 Respiratory Rate 18 16 20 Blood Pressure 187/82 H 166/97 H Pulse Oximetry 95 97 02/03/18 20:29 02/04/18 00:00 02/04/18 00:01 Temperature 98.3 F Pulse Rate 85 59 L 81 Respiratory Rate 20 20 20 Blood Pressure 129/74 Pulse Oximetry 96 95 02/04/18 00:15 02/04/18 00:26 02/04/18 04:00 Temperature 98.2 F 98.4 F Pulse Rate 85 81 Respiratory Rate 20 20 Blood Pressure 178/103 H 162/88 H 193/91 H Pulse Oximetry 90 L 94 L 95 02/04/18 04:02 02/04/18 05:47 02/04/18 08:00 Temperature 97.4 F L Pulse Rate 84 79 Respiratory Rate 20 20 Blood Pressure 168/98 H 195/95 H Pulse Oximetry 95 02/04/18 08:37 Temperature Pulse Rate 79 Respiratory Rate 18 Blood Pressure Pulse Oximetry 94 L Intake & Output 02/03/18 02/04/18 02/04/18 18:59 06:59 18:59 Intake Total 210 / 210 2105 / 2105 Output Total 0 / 0 Balance 210 / 210 2105 / 2105 Weight 102.7 kg Intake: IV 210 / 210 2105 / 2105 D5W/Normal Saline Inj 1,000 ML 1000 / 1000 @ 60 mls/hr IV.CONT .[id number] [facility] Rx#:[id number] Keppra Inj 500 MG In NS Inj 100 210 / 210 105 / 105 ML @ 400 mls/hr IV.SIG Q12H [facility] Rx#:[id number] Output: Urine 0 / 0 Other: # Voids 0 Date of Last Bowel Movement 03/02/18 02/04/18 Narrative: GENERAL: Not in respiratory distress. SKIN: Warm and dry. HEAD: Normocephalic. EYES: No scleral icterus. No injection or drainage. NECK: Supple, trachea midline. No JVD or lymphadenopathy. CARDIOVASCULAR: Regular rate and rhythm without murmurs, gallops, or rubs. RESPIRATORY: Breath sounds equal bilaterally. No accessory muscle use. GASTROINTESTINAL: Abdomen soft, non-tender, nondistended. MUSCULOSKELETAL: No cyanosis, or edema. Trace edema ankles. - Urinary Catheter Management Indwelling Temp Sensing Catheter Cath placed during this visit: yes, but has since been removed by the nurse Reason for continuing: Decision to DC catheter Insertion date: 01/14/18 Insertion time: 22:00 Removal date: 01/21/18 Removal time: 18:00 Straight Cath placed during this visit: no Assessment and Plan - Assessment (1) Acute renal failure Code(s): N17.9 - Acute kidney failure, unspecified Status: Acute Plan: No sign of renal recovery at this point in time. There is still a chance of renal recovery however the longer the patient remains dialysis dependent less likely this will occur. Medications should be adjusted for the patient's estimated GFR if clinically indicated. Avoid agents with significant potential for nephrotoxicity possible including NSAIDs for analgesia, iodine contrast agents. Gadolinium is contraindicated if the GFR is below 30. One blood culture is growing staph epi from 29 January the other culture is negative for that day. I reconsulted infectious disease but no note noted. Will ask nurse to recall. Peak blood cultures during dialysis today. Patient appears to have encephalopathy with no significant improvement. His mental status does not improve prognosis likely very poor long-term. (2) Alcohol abuse Code(s): F10.10 - Alcohol abuse, uncomplicated Status: Acute (3) Alcohol withdrawal seizure with complication Code(s): F10.239 - Alcohol dependence with withdrawal, unspecified; R56.9 - Unspecified convulsions Status: Acute (4) Rhabdomyolysis Code(s): M62.82 - Rhabdomyolysis Status: Acute Plan: Related to previous seizure.
[2018-02-04] MEDS: Heparin 10,000 UNITS/10 ML Vial (for IV use) OTHER PRN (13:30)
--- NOTE | 2018-02-04 18:26 | P.PN ---
Subjective Interval history: Awake and Mildly aphasic. On O2 2 . has weakness on left. Physical Exam Vital signs: Vital Signs 02/03/18 20:00 02/03/18 20:29 02/04/18 00:00 Temperature 98.3 F 98.3 F Pulse Rate 83 85 59 L Respiratory Rate 20 20 20 Blood Pressure 166/97 H 129/74 Pulse Oximetry 97 96 95 02/04/18 00:01 02/04/18 00:15 02/04/18 00:26 Temperature 98.2 F Pulse Rate 81 85 Respiratory Rate 20 20 Blood Pressure 178/103 H 162/88 H Pulse Oximetry 90 L 94 L 02/04/18 04:00 02/04/18 04:02 02/04/18 05:47 Temperature 98.4 F Pulse Rate 81 84 Respiratory Rate 20 20 Blood Pressure 193/91 H 168/98 H Pulse Oximetry 95 02/04/18 08:00 02/04/18 08:37 02/04/18 15:12 Temperature 97.4 F L Pulse Rate 79 79 90 Respiratory Rate 20 18 18 Blood Pressure 195/95 H Pulse Oximetry 95 94 L 02/04/18 15:13 02/04/18 16:00 Temperature 97.5 F L Pulse Rate 92 H Respiratory Rate 20 Blood Pressure 157/89 H Pulse Oximetry 94 L 95 Intake & Output 02/03/18 02/04/18 02/04/18 18:59 06:59 18:59 Intake Total 210 / 210 2105 / 2105 1105 / 1105 Output Total 0 / 0 3500 / 3500 Balance 210 / 210 2105 / 2105 -2395 / -2395 Weight 102.7 kg Intake: IV 210 / 210 2105 / 2105 1105 / 1105 D5W/Normal Saline Inj 1,000 ML 1000 / 1000 1000 / 1000 @ 60 mls/hr IV.CONT .[id number] [facility] Rx#:[id number] Keppra Inj 500 MG In NS Inj 100 210 / 210 105 / 105 105 / 105 ML @ 400 mls/hr IV.SIG Q12H [facility] Rx#:[id number] Output: Urine 0 / 0 Hemodialysis Amount 3500 / 3500 Other: # Voids 0 Date of Last Bowel Movement 03/02/18 02/04/18 Narrative: GENERAL: No acute distress. Mid aged W/M Encephalopathic. CARDIOVASCULAR: Normal rate and regular rhythm without murmurs, gallops, or rubs. RESPIRATORY: Good respiratory efforts. Breath sounds equal and clear to auscultation bilaterally. GASTROINTESTINAL: Abdomen soft, non-tender, non-distended. Normal active bowel sounds MUSCULOSKELETAL: Extremities without cyanosis, or edema. NEURO: Awake, alert not oriented. Profoundly weak. Moves left arm up. Can shake head to answer some questions. Makes some sounds but not comprehensible speech. PSYCH: seems agitated. - Urinary Catheter Management Indwelling Temp Sensing Catheter Cath placed during this visit: yes, but has since been removed by the nurse Reason for continuing: Decision to DC catheter Insertion date: 01/14/18 Insertion time: 22:00 Removal date: 01/21/18 Removal time: 18:00 Straight Cath placed during this visit: no Results - Labs CBC & Chem 7: 02/03/18 06:59 02/03/18 06:59 Laboratory Results - last 24 hr 02/03/18 02/03/18 02/04/18 18:09 23:12 06:44 POC Glucose 137 H 176 H 233 H 02/04/18 12:27 POC Glucose 161 H Assessment and Plan - Assessment (1) Encephalopathy acute Code(s): G93.40 - Encephalopathy, unspecified Status: Acute (2) Overdose Code(s): T50.901A - Poisoning by unspecified drugs, medicaments and biological substances, accidental (unintentional), initial encounter Status: Acute (3) Suicidal ideation Code(s): R45.851 - Suicidal ideations Status: Acute (4) Delirium tremens Code(s): F10.231 - Alcohol dependence with withdrawal delirium Status: Acute (5) Bilateral pneumothoraces Code(s): J93.9 - Pneumothorax, unspecified Status: Acute (6) Endotracheally intubated Code(s): Z97.8 - Presence of other specified devices Status: Acute (7) Elevated troponin Code(s): R74.8 - Abnormal levels of other serum enzymes Status: Acute (8) Acute renal failure Code(s): N17.9 - Acute kidney failure, unspecified Status: Acute (9) Alcohol abuse Code(s): F10.10 - Alcohol abuse, uncomplicated Status: Acute - Plan - Plan 1. Respiratory insufficiency, status post extubation on 01/25/2018. 2. s/p pneumothoraces on arrival, status post bilateral small bore chest tube placement on 01/15/2018. removed 01/28 3. Acute kidney injury. 4. Leukocytosis. 5. Anemia. 6. NSTEMI 7. Morbid obesity. 8. Hypertension. 9. Diabetes mellitus. 10. s/p seizures. Plan 1.Wean oxygen and use 2 L N/C PRN 2.Bronchodilators-DuoNeb QID . 3.Aspiration precautions. CXR 02/01: Mild Bibasilar atelectasis 4.BIPAP nocturnally and p.r.n. for respiratory distress. 5. Taper [id number] mg daily 6.Nutrition support. on tube feeds via an NG tube, Nepro @60 mL an hour. Patient might need PEG tube placement if continue to fail speech study. 7. PT Evaluation (2) Overdose Qualifiers: Encounter type: initial encounter Injury intent: undetermined intent Qualified Code(s): T50.904A - Poisoning by unspecified drugs, medicaments and biological substances, undetermined, initial encounter
--- NOTE | 2018-02-04 18:37 | P.PNPAL ---
Reason for Visit Reason for visit: a. To assist with evaluation and management of symptoms including: Dysphasia, encephalopathy b. To assist medical decision maker(s) with: better understanding of current medical conditions; weighing benefits/burdens of medical treatment options; making medical treatment decisions. Subjective Subjective/Interval History: This is a 62-year-old male who presented to [facility] 01/14/2018 via EMS for altered mental status and seizures. He has had multiple admissions to [place] in 2018 mostly for alcohol intoxication the most recent was 4 days prior to this current admission. He has a long history of alcoholism. His reports he drinks 1 L of vodka daily. While in the ED he became obtunded and began vomiting dark material. Due to his inability to protect his airway, he was intubated. After the initial intubation he became combative and dislodged the tube acquiring removal of the initial ET tube and replacement of a second tube. After intubation, he subsequently went into cardiopulmonary arrest with ROSC after 2 cycles of CPR. Post CPR he was found to have significant subcu emphysema and was emergently sent to CT with CT of the head, chest and abdomen showed bilateral tension pneumothoraces as well as free air in the peritoneal cavity. Bilateral chest tubes were placed immediately and he was transferred to ICU where he arrested again and again had spontaneous return of circulation. Labs showed acute kidney injury, presumed to be from severe dehydration and aggressive IV fluid resuscitation was initiated. He was also found to have severe sepsis and vancomycin and cefepime were initiated with an infectious disease consultation and blood cultures. He remained critically ill requiring maximum doses of vasopressor support to include norepinephrine, vasopressin and epinephrine with subsequent worsening of his renal indices, eventually requiring dialysis. He initially required Flolan in addition to aggressive APRV mode of ventilation and after an 11-day course of intubation was subsequently extubated 01/25/2018. Patient seen today for medically necessary follow-up of dysphasia and encephalopathy. He is being followed by speech therapy and was found to display inconsistent throat clearing with thin liquids but was able to contain, form cohesive bolus and propel bolus with nectar thick liquids and pured trials. He remains on a pured diet with nectar thickened liquids. He consistently asks for water. Dysphasia is mild, constant with no exacerbating or relieving factors. His speech is garbled and difficult to understand. Only a few words are intelligible such as his name and "I want water". He remains encephalopathic and cannot answer questions. He was able to follow some simple commands with repetition and cueing. His left upper extremity has minimal movement but he was able to lift the hand up off the bed today. . Family/Friend Interactions: No family at bedside at this time. . Advance Directives Living Will: Never completed Health Care Surrogate: Never completed Durable Power of Operations Welder: Never completed Objective Vital Signs: Vital Signs 02/03/18 20:00 02/03/18 20:29 02/04/18 00:00 Temperature 98.3 F 98.3 F Pulse Rate 83 85 59 L Respiratory Rate 20 20 20 Blood Pressure 166/97 H 129/74 Pulse Oximetry 97 96 95 02/04/18 00:01 02/04/18 00:15 02/04/18 00:26 Temperature 98.2 F Pulse Rate 81 85 Respiratory Rate 20 20 Blood Pressure 178/103 H 162/88 H Pulse Oximetry 90 L 94 L 02/04/18 04:00 02/04/18 04:02 02/04/18 05:47 Temperature 98.4 F Pulse Rate 81 84 Respiratory Rate 20 20 Blood Pressure 193/91 H 168/98 H Pulse Oximetry 95 02/04/18 08:00 02/04/18 08:37 02/04/18 15:12 Temperature 97.4 F L Pulse Rate 79 79 90 Respiratory Rate 20 18 18 Blood Pressure 195/95 H Pulse Oximetry 95 94 L 02/04/18 15:13 02/04/18 16:00 02/04/18 18:21 Temperature 97.5 F L Pulse Rate 92 H 85 Respiratory Rate 20 Blood Pressure 157/89 H Pulse Oximetry 94 L 95 Intake & Output 02/03/18 02/04/18 02/04/18 18:59 06:59 18:59 Intake Total 210 / 210 2105 / 2105 1585 / 1585 Output Total 0 / 0 3500 / 3500 Balance 210 / 210 210 / 210 -1914 / -1914 Weight 226 lb 6.636 oz Intake: IV 210 / 210 210 / 210 1105 / 1105 D5W/Normal Saline Inj 1,000 ML 1000 / 1000 1000 / 1000 @ 60 mls/hr IV.CONT .[id number] [facility] Rx#:[id number] Keppra Inj 500 MG In NS Inj 100 210 / 210 105 / 105 105 / 105 ML @ 400 mls/hr IV.SIG Q12H [facility] Rx#:[id number] Oral 480 / 480 Output: Urine 0 / 0 Hemodialysis Amount 3500 / 3500 Other: # Voids 0 Date of Last Bowel Movement 03/02/18 02/04/18 # Bowel Movements 1 Physical Exam: CONSTITUTIONAL/GENERAL: This is an overweight male patient, in no apparent distress. TUBES/LINES/DRAINS: PIV x2, left IJ Vas-Cath CARDIOVASCULAR: Regular rate and rhythm without murmurs, gallops, or rubs. No JVD. Peripheral pulses symmetric. RESPIRATORY/CHEST: Symmetric, unlabored respirations. Coarse breath sounds with scattered rhonchi. Minimal residual crepitus. GASTROINTESTINAL: Abdomen soft, non-tender, nondistended. No hepato-splenomegaly , or palpable masses. No guarding. Bowel sounds present. GENITOURINARY: Without palpable bladder distension. Og catheter in place. MUSCULOSKELETAL: Extremities without clubbing or cyanosis, 1+ generalized edema. No joint tenderness or effusion noted. No calf tenderness. No mottling or clubbing. NEUROLOGICAL: Awake in bed, sitting up attempting to talk, speech garbled, unable to control oral secretions. PSYCHIATRIC: No obvious anxiety/depression. no apparent hallucinations or other psychotic thought process. . Diagnostic Tests Laboratory: Laboratory Results - last 72 hr 02/01/18 02/01/18 02/02/18 12:05 23:44 05:12 WBC 12.7 H RBC 2.60 L Hgb 7.7 L Hct 23.3 L MCV 89.3 D MCH 29.6 MCHC 33.2 RDW 17.9 H Plt Count 184 MPV 9.5 Neut % (Auto) 89.6 H Lymph % (Auto) 4.4 L [place] % (Auto) 4.0 Eos % (Auto) 1.7 Baso % (Auto) 0.3 Neut # (Auto) 11.4 H Lymph # (Auto) 0.6 L [place] # (Auto) 0.5 Eos # (Auto) 0.2 Baso # (Auto) 0.0 WBC Differential . Differential Comment Auto diff final Sodium Potassium Chloride Carbon Dioxide Anion Gap BUN Creatinine Estimated GFR POC Glucose 259 H Random Glucose Calcium Phosphorus Iron TIBC % Saturation Ferritin Total Bilirubin Direct Bilirubin Indirect Bilirubin AST ALT Alkaline Phosphatase Total Protein Albumin Blood Type O Positive Antibody Screen Negative MTS Gel Crossmatch See Detail 02/02/18 02/02/18 02/02/18 05:12 05:35 11:31 WBC RBC Hgb Hct MCV MCH MCHC RDW Plt Count MPV Neut % (Auto) Lymph % (Auto) [place] % (Auto) Eos % (Auto) Baso % (Auto) Neut # (Auto) Lymph # (Auto) [place] # (Auto) Eos # (Auto) Baso # (Auto) WBC Differential Differential Comment Sodium 140 Potassium 4.4 Chloride 100 Carbon Dioxide 25.2 Anion Gap 15 BUN 120 H Creatinine 7.27 H Estimated GFR 8 L POC Glucose 137 H 138 H Random Glucose 114 H D Calcium 8.4 L Phosphorus 6.8 H D Iron 46 L TIBC 193 L % Saturation 23.8 Ferritin 452 H Total Bilirubin 1.0 Direct Bilirubin Indirect Bilirubin AST 24 ALT 48 Alkaline Phosphatase 164 H Total Protein 5.8 L Albumin 2.6 L Blood Type Antibody Screen MTS Gel Crossmatch 02/02/18 02/02/18 02/02/18 17:43 18:01 19:59 WBC RBC Hgb Hct MCV MCH MCHC RDW Plt Count MPV Neut % (Auto) Lymph % (Auto) [place] % (Auto) Eos % (Auto) Baso % (Auto) Neut # (Auto) Lymph # (Auto) [place] # (Auto) Eos # (Auto) Baso # (Auto) WBC Differential Differential Comment Sodium Potassium Chloride Carbon Dioxide Anion Gap BUN Creatinine Estimated GFR POC Glucose 345 H 315 H 310 H Random Glucose Calcium Phosphorus Iron TIBC % Saturation Ferritin Total Bilirubin Direct Bilirubin Indirect Bilirubin AST ALT Alkaline Phosphatase Total Protein Albumin Blood Type Antibody Screen MTS Gel Crossmatch 02/02/18 02/03/18 02/03/18 23:48 06:10 06:12 WBC RBC Hgb Hct MCV MCH MCHC RDW Plt Count MPV Neut % (Auto) Lymph % (Auto) [place] % (Auto) Eos % (Auto) Baso % (Auto) Neut # (Auto) Lymph # (Auto) [place] # (Auto) Eos # (Auto) Baso # (Auto) WBC Differential Differential Comment Sodium Potassium Chloride Carbon Dioxide Anion Gap BUN Creatinine Estimated GFR POC Glucose 284 H 38 L* 36 L* Random Glucose Calcium Phosphorus Iron TIBC % Saturation Ferritin Total Bilirubin Direct Bilirubin Indirect Bilirubin AST ALT Alkaline Phosphatase Total Protein Albumin Blood Type Antibody Screen MTS Gel Crossmatch 02/03/18 02/03/18 02/03/18 06:26 06:49 06:59 WBC 13.5 H RBC 2.72 L Hgb 8.3 L Hct 24.0 L MCV 88.3 MCH 30.4 MCHC 34.5 RDW 18.2 H Plt Count 188 MPV 9.1 Neut % (Auto) Lymph % (Auto) [place] % (Auto) Eos % (Auto) Baso % (Auto) Neut # (Auto) Lymph # (Auto) [place] # (Auto) Eos # (Auto) Baso # (Auto) WBC Differential Differential Comment Sodium Potassium Chloride Carbon Dioxide Anion Gap BUN Creatinine Estimated GFR POC Glucose 161 H 103 Random Glucose Calcium Phosphorus Iron TIBC % Saturation Ferritin Total Bilirubin Direct Bilirubin Indirect Bilirubin AST ALT Alkaline Phosphatase Total Protein Albumin Blood Type Antibody Screen MTS Gel Crossmatch 02/03/18 02/03/18 02/03/18 06:59 09:01 09:03 WBC RBC Hgb Hct MCV MCH MCHC RDW Plt Count MPV Neut % (Auto) Lymph % (Auto) [place] % (Auto) Eos % (Auto) Baso % (Auto) Neut # (Auto) Lymph # (Auto) [place] # (Auto) Eos # (Auto) Baso # (Auto) WBC Differential Differential Comment Sodium 140 Potassium 4.6 Chloride 99 Carbon Dioxide 29.5 Anion Gap 12 BUN 109 H Creatinine 6.55 H Estimated GFR 9 L POC Glucose 44 L* 46 L* Random Glucose 90 Calcium 8.4 L Phosphorus Iron TIBC % Saturation Ferritin Total Bilirubin 1.0 Direct Bilirubin 0.4 H Indirect Bilirubin 0.6 AST 23 ALT 43 Alkaline Phosphatase 141 H Total Protein 6.2 L Albumin 2.6 L Blood Type Antibody Screen MTS Gel Crossmatch 02/03/18 02/03/18 02/03/18 09:40 12:21 18:09 WBC RBC Hgb Hct MCV MCH MCHC RDW Plt Count MPV Neut % (Auto) Lymph % (Auto) [place] % (Auto) Eos % (Auto) Baso % (Auto) Neut # (Auto) Lymph # (Auto) [place] # (Auto) Eos # (Auto) Baso # (Auto) WBC Differential Differential Comment Sodium Potassium Chloride Carbon Dioxide Anion Gap BUN Creatinine Estimated GFR POC Glucose 144 H 105 137 H Random Glucose Calcium Phosphorus Iron TIBC % Saturation Ferritin Total Bilirubin Direct Bilirubin Indirect Bilirubin AST ALT Alkaline Phosphatase Total Protein Albumin Blood Type Antibody Screen MTS Gel Crossmatch 02/03/18 02/04/18 02/04/18 23:12 06:44 12:27 WBC RBC Hgb Hct MCV MCH MCHC RDW Plt Count MPV Neut % (Auto) Lymph % (Auto) [place] % (Auto) Eos % (Auto) Baso % (Auto) Neut # (Auto) Lymph # (Auto) [place] # (Auto) Eos # (Auto) Baso # (Auto) WBC Differential Differential Comment Sodium Potassium Chloride Carbon Dioxide Anion Gap BUN Creatinine Estimated GFR POC Glucose 176 H 233 H 161 H Random Glucose Calcium Phosphorus Iron TIBC % Saturation Ferritin Total Bilirubin Direct Bilirubin Indirect Bilirubin AST ALT Alkaline Phosphatase Total Protein Albumin Blood Type Antibody Screen MTS Gel Crossmatch Result Diagrams: 02/03/18 06:59 02/03/18 06:59 Microbiology: Microbiology 01/29/18 14:27 Aerobic Blood Culture - Final Blood - Peripheral No growth in 5 days Anaerobic Blood Culture - Final No growth in 5 days 01/29/18 14:35 Aerobic Blood Culture - Final Blood - Peripheral No growth in 5 days Anaerobic Blood Culture - Final Staphylococcus epidermidis Imaging: ITS Impressions Cervical Spine CT 01/14/18 21:58 CONCLUSION: 1. No acute fracture or malalignment. 2. Subcutaneous emphysema again noted as well as the known right pneumothorax. Head CT 01/14/18 21:58 CONCLUSION: 1. No acute hemorrhage or mass effect. 2. Stable area of encephalomalacia in the right lateral lobe. . Abdomen/Bladder Ultrasound 01/16/18 00:00 CONCLUSION: 1. Trace ascites. 2. Negative renal ultrasound Abdomen/Pelvis CT 01/16/18 00:00 CONCLUSION: 1. Minimal free intraperitoneal air. I don't see etiology for such 2. Dense consolidation both lung bases with small bilateral chest tubes 3. Trace pneumothorax on the left. No pneumothorax on the right. 4. Moderate fatty replacement to the liver with prominent gallbladder Chest CT 01/16/18 00:00 . CONCLUSION: 1. Dense consolidation in both lung bases small bore chest tubes evident. 2. Trace pneumothorax on the left 3. No significant fluid. Cervical Spine MRI 01/27/18 00:00 CONCLUSION: 1. No fracture or subluxation seen of the cervical spine but there is edema in the erector spinae muscles, especially on the right at the level of the upper cervical spine. This is nonspecific but presumably related to an acute or subacute strain. Localized early denervation would be conceivable but I don't see any atrophy. 2. There is an age-indeterminate left foraminal disc protrusion at C3/C4 that is probably impinging on the transiting left C4 nerve root. 3. Multilevel degenerative changes that otherwise appear chronic, as described. Associated high-grade foraminal stenosis on the right at C4/C5, bilateral at C5/C6 and C6/C7. No high-grade spinal stenosis demonstrated. Head MRI 01/27/18 00:00 CONCLUSION: 1. Remote right posterior parietal mid convexity infarct. 2. Mild cerebral atrophy with mild periventricular ischemic white matter demyelination. 3. Stable paranasal sinus mucosal disease and mastoiditis. 4. No acute abnormality. Specifically, no acute infarction or hemorrhage. Abdomen X-Ray 01/28/18 00:00 CONCLUSION: Mild gaseous distention of bowel. Carotid Doppler Study 01/28/18 00:00 CONCLUSION: 1. Right Internal Carotid Artery: No significant stenosis or atherosclerotic plaque is visualized. 2. Left Internal Carotid Artery: No significant stenosis or atherosclerotic plaque is visualized. Chest X-Ray 02/03/18 00:00 CONCLUSION: 1. Persistent patchy infiltrate within the mid and lower lung valenzuela bilaterally consistent with pulmonary edema versus pneumonia. Clinical correlation is recommended. 2. Dobbhoff tube has its tip below the diaphragm at least to the level of the stomach. Procedures: 01/14: Intubation x2 01/14: Right and left chest tube placement 01/14: Right brachial arterial line placement 01/14: Right subclavian central line placement 01/17: Placement of L IJ hemodialysis catheter. Assessment and Plan - Disease Oriented Problem List (1) Delirium tremens (2) Bilateral pneumothoraces (3) Endotracheally intubated (4) Elevated troponin (5) Acute renal failure (6) Alcohol abuse (7) Alcohol withdrawal seizure with complication (8) Rhabdomyolysis Pertinent Non-Medical Issues: Psychosocial: He lived in many states growing up. 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 He has been once to his current , from who he is now and has no children. Spiritual: Hospitality Associate available. Legal: No advance directives completed. Ethical issues impacting care: Patient does not appear capacitated for decision- making. . Important Contacts: : Tressa Canseco [phone] Sister: Lala Canseco . Prognosis: His prognosis is guarded. He still has significant deficits and is at risk for recurrent complications, infections and decline. At this time he has multisystem organ compromise to include cardiogenic shock status post AL on admission with cardiac arrest x2, respiratory insufficiency, acute kidney injury on hemodialysis and hepatitis secondary to shock. It is the opinion of nephrology that his renal failure is caused by his cardiac failure equating to cardiorenal syndrome. He has left-sided weakness and appears aphasic at this time. Pending speech therapy evaluation. He was previously too unstable from a respiratory standpoint to undergo evaluation. He is at significant risk for continued complications and decline. . Code Status: Full Code Plan: PLAN: Legal decision maker: At this time the patient is not capacitated for decision-making and it is uncertain whether he statutes, his Tressa would be his proxy decision-maker. Goals: Aggressive at this time. CODE STATUS: FULL CODE SYMPTOMS: * Dysphasia: Speech therapy has evaluated and found him to have mild oropharyngeal dysphasia and has placed him on a pured diet with nectar thickened liquids. He is seen to have difficulty controlling his oral secretions. Speech therapy continues to follow. MRI of the brain shows no CVA. * Encephalopathy: Intermittently following commands. He has a long history of alcoholism and may have sustained a mild hypoxic injury on admission. He also has a history of a previous stroke. It is uncertain how his neurological status will recover. Neurology following. Left upper extremity weakness. Speech garbled. Palliative care will continue to follow the patient during hospital course as condition evolves, to assist patient/decision-maker with understanding of their medical conditions, weighing benefits/burdens of treatment options, for clarification of goals of treatment. Additionally will assist with any symptoms of palliative concern. . Attestation Attestation: To help prompt me to consider important information that might be impacting today's encounter and assessment, information from prior notes written by myself or my colleagues may have been "brought forward" into today's note. My signature on this note, however, is an attestation that I personally performed the exam, history, and/or decision-making noted today, and, unless otherwise indicated, the interactions with patient, family, and staff as well as the review of records all occurred today. I also attest that the listed assessment and stated plan reflect my best clinical judgment today based on the combination of historical information, prior notes, and today's exam/ interactions. When time spent is documented, it refers only to time spent today by the signer, or if indicated, combined time spent today by collaborating physician/nurse practitioner. .
[2018-02-04] MEDS: Insulin Detemir Inj 1,000 UNIT/10 ML Vial SQ SCH (21:38)
[2018-02-05] MEDS: Insulin NovoLIN Regular Correctional Sugar Inj SQ SCH ×4 (01:50→17:36)
[2018-02-05] MEDS: Oral Hygiene Kit OROPHARYNG SCH ×4 (02:11→17:02)
[2018-02-05] MEDS: Artificial Tears Opth Drops 15 ML Bottle EACH EYE SCH ×4 (02:12→23:12)
[2018-02-05] MEDS: Pantoprazole Inj 40 MG Vial IV.PUSH SCH ×2 (02:13→14:32)
[2018-02-05] MEDS: Dextrose 5%/NaCl 0.9% Inj 1,000 ML IV.CONT SCH ×2 (05:46→23:00)
[2018-02-05] MEDS: Levothyroxine 88 MCG Tablet PO SCH (05:51)
[2018-02-05] MEDS: hydrALAZINE 25 MG Tablet PO SCH ×3 (05:53→22:58)
[2018-02-05 08:39] LABS: Baso # (Auto) 0.1 th/mm3 (0.0-0.2); Baso % (Auto) 1.3 % (0.0-2.0); Eos # (Auto) 0.5 th/mm3 (0.0-0.4); Eos % (Auto) 4.5 % (0.0-4.0); Hematocrit 23.5 % (39.0-51.0); Lymph # (Auto) 0.8 th/mm3 (1.0-4.8); Lymph % (Auto) 8.2 % (9.0-44.0); Mean Corpuscular HGB Conc 34.1 % (32.0-36.0); Mean Corpuscular Hemoglobin 30.9 pg (27.0-34.0); Mean Corpuscular Volume 90.6 fL (80.0-100.0); Mono # (Auto) 0.7 th/mm3 (0.0-0.9); Mono % (Auto) 6.7 % (0.0-8.0); Neut # (Auto) 8.1 th/mm3 (1.8-7.7); Neut % (Auto) 79.3 % (16.0-70.0); Platelet Count 198 th/mm3 (150-450); Red Cell Distribution Width 17.7 % (11.6-17.2); White Blood Count 10.3 th/mm3 (4.0-11.0)
[2018-02-05 09:09] LABS: Carbon Dioxide 26.5 meq/L (21.0-32.0); Potassium 4.8 meq/L (3.5-5.1)
[2018-02-05 09:10] LABS: Eosinophils 3 % (0-4); Lymphocytes 3 % (9-44); Monocytes 5 % (0-8); Myelocytes 1 % (0-0); Platelet Estimate Normal (Normal); Platelet Morphology Normal (Normal)
[2018-02-05] MEDS: predniSONE 20 MG Tablet PO SCH (09:28)
[2018-02-05] MEDS: Folic Acid 1 MG Tablet PO SCH (09:28)
[2018-02-05] MEDS: Senna/Docusate Sodium 8.6/50 MG Tablet PO SCH ×2 (09:28→20:51)
[2018-02-05] MEDS: Carvedilol 6.25 MG Tablet PO SCH ×2 (09:28→20:48)
[2018-02-05] MEDS: Chlorhexidine 0.12% Oral Kit 15 ML UDC OROPHARYNG SCH ×2 (09:29→20:50)
--- NOTE | 2018-02-05 10:03 | US ---
EXAM DATE: 02/05/2018 9:46 AM EST AGE/SEX: 62 years / Male INDICATIONS: Left arm swelling. CLINICAL DATA: This is the patient's initial encounter. Patient reports that signs and symptoms have been present for 1 day and indicates a pain score of Nonresponsive. MEDICAL/SURGICAL HISTORY: . Diabetes. Hypertension. CVA. ETOH abuse. Anxiety. Non-responsive. COMPARISON: No prior exams available for comparison. FINDINGS: The vessels are compressible and augmentation response is documented. No filling defects a re seen. The flow is phasic with respiration. Other: Please note that the left internal jugular vein was not evaluated secondary to overlying band ages and central line. CONCLUSION: No venous thrombosis is identified within the left upper extremity. Electronically signed by: Dionisio Tobar MD 02/05/2018 10:02 AM EST
--- NOTE | 2018-02-05 11:32 | P.PNNP ---
Subjective Interval history: Pt laying in bed in NAD. Is speaking today with simple phrases. NO family at bedside. Physical Exam Vital signs: Vital Signs 02/04/18 15:12 02/04/18 15:13 02/04/18 16:00 Temperature 97.5 F L Pulse Rate 90 92 H Respiratory Rate 18 20 Blood Pressure 157/89 H Pulse Oximetry 94 L 95 02/04/18 18:21 02/04/18 19:40 02/04/18 20:00 Temperature 97.9 F Pulse Rate 85 85 86 Respiratory Rate 20 20 Blood Pressure 139/85 Pulse Oximetry 94 L 02/04/18 22:47 02/05/18 03:45 02/05/18 04:00 Temperature 98.1 F 97.3 F L Pulse Rate 91 H 83 80 Respiratory Rate 18 18 20 Blood Pressure 142/76 H 184/90 H Pulse Oximetry 94 L 93 L 02/05/18 08:00 Temperature 92.9 F L Pulse Rate 88 Respiratory Rate 20 Blood Pressure 169/80 H Pulse Oximetry 92 L Intake & Output 02/04/18 02/05/18 02/05/18 18:59 06:59 18:59 Intake Total 1585 / 1585 105 / 105 400 / 400 Output Total 3500 / 3500 Balance -1915 / -1915 105 / 105 400 / 400 Weight 100.8 kg Intake: IV 1105 / 1105 105 / 105 400 / 400 D5W/Normal Saline Inj 1,000 ML 1000 / 1000 400 / 400 @ 60 mls/hr IV.CONT .[id number] [facility] Rx#:[id number] Keppra Inj 500 MG In NS Inj 100 105 / 105 105 / 105 ML @ 400 mls/hr IV.SIG Q12H [facility] Rx#:[id number] Oral 480 / 480 Output: Hemodialysis Amount 3500 / 3500 Other: Date of Last Bowel Movement 02/04/18 02/05/18 02/04/18 # Bowel Movements 1 - Constitutional no acute distress - Routine Neck Exam Present: supple - Routine Respiratory Exam Present: CTA bilaterally - Routine Cardiovascular Exam Present: RRR, S1, S2 - Routine Abdominal Exam Present: soft - Routine Extremities Exam Present: edema - Routine Neurological Exam Present: alert - Urinary Catheter Management Indwelling Temp Sensing Catheter Cath placed during this visit: yes, but has since been removed by the nurse Reason for continuing: Decision to DC catheter Insertion date: 01/14/18 Insertion time: 22:00 Removal date: 01/21/18 Removal time: 18:00 Straight Cath placed during this visit: no Assessment and Plan - Assessment (1) Acute renal failure Code(s): N17.9 - Acute kidney failure, unspecified Status: Acute Plan: No sign of renal recovery at this point in time. There is still a chance of renal recovery, however, the longer the patient remains dialysis dependent the less likely this will occur. Medications should be adjusted for the patient's estimated GFR if clinically indicated. Avoid agents with significant potential for nephrotoxicity possible including NSAIDs for analgesia, iodine contrast agents. Gadolinium is contraindicated if the GFR is below 30. Repeat BCx neg x24h drawn 02/04/18 If BCx neg and remains dialysis dependent, will need conversion of VasCath to PermCath Patient appears to have encephalopathy with no significant improvement. His mental status does not improve prognosis likely very poor long-term. (2) Alcohol abuse Code(s): F10.10 - Alcohol abuse, uncomplicated Status: Acute (3) Alcohol withdrawal seizure with complication Code(s): F10.239 - Alcohol dependence with withdrawal, unspecified; R56.9 - Unspecified convulsions Status: Acute (4) Rhabdomyolysis Code(s): M62.82 - Rhabdomyolysis Status: Acute Plan: Resolved (5) Anemia Code(s): D64.9 - Anemia, unspecified Status: Acute Qualifiers: Anemia type: due to chronic kidney disease Plan: Continue Epo with HD.
--- NOTE | 2018-02-05 12:56 | P.PNIM ---
Subjective Interval history: Patient able to say some yes and no to some simple questions but remains confused. Physical Exam Vital signs: Vital Signs 02/04/18 15:12 02/04/18 15:13 02/04/18 16:00 Temperature 97.5 F L Pulse Rate 90 92 H Respiratory Rate 18 20 Blood Pressure 157/89 H Pulse Oximetry 94 L 95 02/04/18 18:21 02/04/18 19:40 02/04/18 20:00 Temperature 97.9 F Pulse Rate 85 85 86 Respiratory Rate 20 20 Blood Pressure 139/85 Pulse Oximetry 94 L 02/04/18 22:47 02/05/18 03:45 02/05/18 04:00 Temperature 98.1 F 97.3 F L Pulse Rate 91 H 83 80 Respiratory Rate 18 18 20 Blood Pressure 142/76 H 184/90 H Pulse Oximetry 94 L 93 L 02/05/18 08:00 02/05/18 11:33 02/05/18 12:30 Temperature 92.9 F L 99.0 F Pulse Rate 88 90 90 Respiratory Rate 20 20 18 Blood Pressure 169/80 H 134/69 Pulse Oximetry 92 L 91 L 93 L Intake & Output 02/04/18 02/05/18 02/05/18 18:59 06:59 18:59 Intake Total 1585 / 1585 105 / 105 400 / 400 Output Total 3500 / 3500 Balance -1915 / -1915 105 / 105 400 / 400 Weight 100.8 kg Intake: IV 1105 / 1105 105 / 105 400 / 400 D5W/Normal Saline Inj 1,000 ML 1000 / 1000 400 / 400 @ 60 mls/hr IV.CONT .[id number] [facility] Rx#:[id number] Keppra Inj 500 MG In NS Inj 100 105 / 105 105 / 105 ML @ 400 mls/hr IV.SIG Q12H [facility] Rx#:[id number] Oral 480 / 480 Output: Hemodialysis Amount 3500 / 3500 Other: Date of Last Bowel Movement 02/04/18 02/05/18 02/04/18 # Bowel Movements 1 Narrative: GENERAL: No acute distress. Encephalopathic. CARDIOVASCULAR: Normal rate and regular rhythm without murmurs, gallops, or rubs. RESPIRATORY: Good respiratory efforts. Breath sounds equal and clear to auscultation bilaterally. GASTROINTESTINAL: Abdomen soft, non-tender, non-distended. Normal active bowel sounds MUSCULOSKELETAL: Extremities without cyanosis, or edema. NEURO: Awake, alert not oriented. Profoundly weak. Can say yes and no to answer some questions. Remains confused. PSYCH: Calm - Urinary Catheter Management Indwelling Temp Sensing Catheter Cath placed during this visit: yes, but has since been removed by the nurse Reason for continuing: Decision to DC catheter Insertion date: 01/14/18 Insertion time: 22:00 Removal date: 01/21/18 Removal time: 18:00 Straight Cath placed during this visit: no Results - Labs CBC & Chem 7: 02/05/18 06:12 02/05/18 06:12 Laboratory Results - last 24 hr 02/04/18 02/05/18 02/05/18 20:43 01:36 06:12 WBC 10.3 RBC 2.60 L Hgb 8.0 L Hct 23.5 L MCV 90.6 MCH 30.9 MCHC 34.1 RDW 17.7 H Plt Count 198 MPV 9.0 Prelim Diff (Auto) Slide review pending Neut % (Auto) 79.3 H Lymph % (Auto) 8.2 L [place] % (Auto) 6.7 Eos % (Auto) 4.5 H Baso % (Auto) 1.3 Neut # (Auto) 8.1 H Lymph # (Auto) 0.8 L [place] # (Auto) 0.7 Eos # (Auto) 0.5 H Baso # (Auto) 0.1 WBC Differential Manual diff final Seg Neuts % (Manual) 73 H Band Neuts % (Manual) 12 H Lymphocytes % (Manual) 3 L Monocytes % (Manual) 5 Eosinophils % (Manual) 3 Basophils % (Manual) 3 H Myelocytes % (Man) 1 H Abs Neuts (Manual) 8.9 H Differential Comment . Platelet Estimate Normal Platelet Morphology Normal Sodium Potassium Chloride Carbon Dioxide Anion Gap BUN Creatinine Estimated GFR POC Glucose 377 H 223 H Random Glucose Calcium 02/05/18 02/05/18 02/05/18 06:12 06:14 12:28 WBC RBC Hgb Hct MCV MCH MCHC RDW Plt Count MPV Prelim Diff (Auto) Neut % (Auto) Lymph % (Auto) [place] % (Auto) Eos % (Auto) Baso % (Auto) Neut # (Auto) Lymph # (Auto) [place] # (Auto) Eos # (Auto) Baso # (Auto) WBC Differential Seg Neuts % (Manual) Band Neuts % (Manual) Lymphocytes % (Manual) Monocytes % (Manual) Eosinophils % (Manual) Basophils % (Manual) Myelocytes % (Man) Abs Neuts (Manual) Differential Comment Platelet Estimate Platelet Morphology Sodium 137 Potassium 4.8 Chloride 100 Carbon Dioxide 26.5 Anion Gap 11 BUN 91 H Creatinine 6.58 H Estimated GFR 9 L POC Glucose 125 H 267 H Random Glucose 111 H Calcium 9.0 Microbiology 02/04/18 12:36 Blood - Line Aerobic Blood Culture - Preliminary No growth in 1 day 02/04/18 12:36 Blood - Line Anaerobic Blood Culture - Preliminary No growth in 1 day 02/04/18 12:30 Blood - Line Aerobic Blood Culture - Preliminary No growth in 1 day 02/04/18 12:30 Blood - Line Anaerobic Blood Culture - Preliminary No growth in 1 day - Imaging Impressions Venous Doppler Study 02/05/18 00:00 CONCLUSION: No venous thrombosis is identified within the left upper extremity. Assessment and Plan - Plan 62-year-old white male who was admitted with cardiogenic shock and acute respiratory failure requiring CPR and epinephrine in the field, after being found down at home and being witnessed to possibly have undergone seizure-like activity. Intubation was attempted in the field but were unable to do so, patient was ultimately intubated in the hospital, started on pressors, placed in the ICU on mechanical ventilation. Found to have bilateral pneumothoraces with chest tubes placed, had developed some pneumoperitoneum which surgically deemed might have been a leak from his chest tubes as opposed to an acute surgical abdomen. Patient was started on antibiotics empirically for possible aspiration pneumonia but was ultimately discontinued off of them by infectious disease. Developed rhabdomyolysis with worsening acute renal failure which became sustained, with the patient now undergoing dialysis. Ultimately was discontinued off pressors, cardiology deferred heart cath due to renal failure. Patient had difficulty following commands after he was discontinued off of sedation and after extubation. Had an MRI done on 01/17 which showed no acute findings, only an older right parietal CVA. EEG was done which was unremarkable. 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 If he had anoxic brain injury No significant clinical improvement so far Neurology following Appeared to be making some mild improvement from a neurological standpoint. He passed a swallow evaluation. Appear to be more alert. Continue rehabilitation efforts with physical therapy/OT/speech Dysphasia: Improving. Unclear if he had anoxic injury from cardiogenic shock and respiratory failure. -Patient pulled out NG tube. -Speech therapy following and he passed a swallow evaluation. Modified diet per speech. Possible seizure Continue Keppra EEG was negative Non-STEMI Elevated troponin Cardiology following Continue hydralazine Continue Coreg Continue aspirin Continue Lipitor Continue isosorbide Bilateral pneumothoraces pneumomediastinum acute respiratory failure chest tubes removed 01/28/2018 Continue oxygen supplementation Appreciate pulmonology following. Continue BiPAP as needed Pneumoperitoneum with right retroperitoneal gas/gas around the right kidney Likely secondary to bilateral pneumothoraces with no surgical intervention warranted per general surgery Continue Prednisone 20mg daily Positive blood cultures for 01/29/18 sample: Staph epidermidis -1 out of 4 bottles.? Contaminant. - Infectious disease reconsulted per nephrology. Repeat blood cultures so far negative. Hepatitis secondary to shock Hepatic steatosis Cirrhosis Possible alcohol abuse Continue thiamine Continue folic acid Continue beta-blockers End-stage renal disease Dialysis continue Nephrology following, looking less likely that his renal function will recover. follow renal function diabetes mellitus Diabetic diet Continue Levemir Insulin Sliding Scale hypothyroidism continue levothyroxine Normocytic anemia thrombocytopenia Persistent leukocytosis Status post PRBC transfusion. H&H stable. Follow-up H&H in a.m. DVT prophylaxis Heparin Discharge Planning: Patient will likely need long-term care. Significant encephalopathy and renal failure. No insurance benefit.
--- NOTE | 2018-02-05 15:41 | P.PNPAL ---
Reason for Visit Reason for visit: a. To assist with evaluation and management of symptoms including: Dysphasia, encephalopathy b. To assist medical decision maker(s) with: better understanding of current medical conditions; weighing benefits/burdens of medical treatment options; making medical treatment decisions. Subjective Subjective/Interval History: This is a 62-year-old male who presented to [facility] 01/14/2018 via EMS for altered mental status and seizures. He has had multiple admissions to [facility] in 2018 mostly for alcohol intoxication the most recent was 4 days prior to this current admission. He has a long history of alcoholism. His reports he drinks 1 L of vodka daily. While in the ED he became obtunded and began vomiting dark material. Due to his inability to protect his airway, he was intubated. After the initial intubation he became combative and dislodged the tube acquiring removal of the initial ET tube and replacement of a second tube. After intubation, he subsequently went into cardiopulmonary arrest with ROSC after 2 cycles of CPR. Post CPR he was found to have significant subcu emphysema and was emergently sent to CT with CT of the head, chest and abdomen showed bilateral tension pneumothoraces as well as free air in the peritoneal cavity. Bilateral chest tubes were placed immediately and he was transferred to ICU where he arrested again and again had spontaneous return of circulation. Labs showed acute kidney injury, presumed to be from severe dehydration and aggressive IV fluid resuscitation was initiated. He was also found to have severe sepsis and vancomycin and cefepime were initiated with an infectious disease consultation and blood cultures. He remained critically ill requiring maximum doses of vasopressor support to include norepinephrine, vasopressin and epinephrine with subsequent worsening of his renal indices, eventually requiring dialysis. He initially required Flolan in addition to aggressive APRV mode of ventilation and after an 11-day course of intubation was subsequently extubated 01/25/2018. Patient seen today for medically necessary follow-up of dysphasia and encephalopathy. Patient remains confused, speech is garbled with an occasional single word that is intelligible. He is followed by speech therapy who notes continued moderate dysphasia demonstrating signs and symptoms of aspiration with cough response and wet gurgly breath sounds with thin liquid. Patient continues to require verbal cues for mastication and demonstrates poor bolus formation and clearance. It is thought possible that he had an anoxic brain injury during his 2 cardiac arrests sustaining bilateral tension pneumothoraces with subsequent cardiogenic shock. He intermittently follows simple commands. Left upper extremity continues with extreme weakness, near flaccidity. He remains in renal failure requiring dialysis. It is appearing to be less likely that his renal function will recover. . Family/Friend Interactions: Left message for his , pending return call. 1625 PM spoke with his via telephone and provided clinical update. She states that on Sunday he was able to speak better and even sang a little bit. She saw him last evening and noticed a large decline with a decrease in speech ability, garbled speech, spitting food. She states the left upper arm weakness is new. He did not prior to this have any weakness. We reviewed his clinical course and current clinical condition and the prognosis going forward. She is aware that he will need long-term care at this point, barring a substantial recovery, which at this time does not appear likely. She wishes to speak with the patient's sister prior to changing CODE STATUS and has requested a meeting with palliative care to include the sister, likely via telephone, for full medical update to the sister and the opportunity to ask questions. Reviewed the possibility of hospice once patient has a discharge plan. At this time he has no funding and Medicaid is being queried for possible qualification. . Advance Directives Living Will: Never completed Health Care Surrogate: Never completed Durable Power of [employer]: Never completed Objective Vital Signs: Vital Signs 02/04/18 16:00 02/04/18 18:21 02/04/18 19:40 Temperature 97.5 F L Pulse Rate 92 H 85 85 Respiratory Rate 20 20 Blood Pressure 157/89 H Pulse Oximetry 95 02/04/18 20:00 02/04/18 22:47 02/05/18 03:45 Temperature 97.9 F 98.1 F Pulse Rate 86 91 H 83 Respiratory Rate 20 18 18 Blood Pressure 139/85 142/76 H Pulse Oximetry 94 L 94 L 02/05/18 04:00 02/05/18 08:00 02/05/18 11:33 Temperature 97.3 F L 92.9 F L 99.0 F Pulse Rate 80 88 90 Respiratory Rate 20 20 20 Blood Pressure 184/90 H 169/80 H 134/69 Pulse Oximetry 93 L 92 L 91 L 02/05/18 12:30 02/05/18 14:20 Temperature 98.9 F Pulse Rate 90 91 H Respiratory Rate 18 20 Blood Pressure 162/86 H Pulse Oximetry 93 L 94 L Intake & Output 02/04/18 02/05/18 02/05/18 18:59 06:59 18:59 Intake Total 1585 / 1585 105 / 105 400 / 400 Output Total 3500 / 3500 Balance -1914 / -1914 105 / 105 400 / 400 Weight 222 lb 3.615 oz Intake: IV 1105 / 1105 105 / 105 400 / 400 D5W/Normal Saline Inj 1,000 ML 1000 / 1000 400 / 400 @ 60 mls/hr IV.CONT .[id number] [facility] Rx#:[id number] Keppra Inj 500 MG In NS Inj 100 105 / 105 105 / 105 ML @ 400 mls/hr IV.SIG Q12H [facility] Rx#:[id number] Oral 480 / 480 Output: Hemodialysis Amount 3500 / 3500 Other: Date of Last Bowel Movement 02/04/18 02/05/18 02/04/18 # Bowel Movements 1 Physical Exam: CONSTITUTIONAL/GENERAL: This is an overweight male patient, in no apparent distress. TUBES/LINES/DRAINS: PIV x2, left IJ Vas-Cath CARDIOVASCULAR: Regular rate and rhythm without murmurs, gallops, or rubs. No JVD. Peripheral pulses symmetric. RESPIRATORY/CHEST: Symmetric, unlabored respirations. Coarse breath sounds with scattered rhonchi. Excessive oral secretions. No residual crepitus. GASTROINTESTINAL: Abdomen soft, non-tender, nondistended. No hepato-splenomegaly , or palpable masses. No guarding. Bowel sounds present. GENITOURINARY: Without palpable bladder distension. Og catheter in place. MUSCULOSKELETAL: Extremities without clubbing or cyanosis, 1+ generalized edema. No joint tenderness or effusion noted. No calf tenderness. No mottling or clubbing. NEUROLOGICAL: Lethargic, arousable, speech garbled, unable to control oral secretions. PSYCHIATRIC: Lethargic today.. . Diagnostic Tests Laboratory: Laboratory Results - last 72 hr 02/02/18 02/02/18 02/02/18 17:43 18:01 19:59 WBC RBC Hgb Hct MCV MCH MCHC RDW Plt Count MPV Prelim Diff (Auto) Neut % (Auto) Lymph % (Auto) [place] % (Auto) Eos % (Auto) Baso % (Auto) Neut # (Auto) Lymph # (Auto) [place] # (Auto) Eos # (Auto) Baso # (Auto) WBC Differential Seg Neuts % (Manual) Band Neuts % (Manual) Lymphocytes % (Manual) Monocytes % (Manual) Eosinophils % (Manual) Basophils % (Manual) Myelocytes % (Man) Abs Neuts (Manual) Differential Comment Platelet Estimate Platelet Morphology Sodium Potassium Chloride Carbon Dioxide Anion Gap BUN Creatinine Estimated GFR POC Glucose 345 H 315 H 310 H Random Glucose Calcium Total Bilirubin Direct Bilirubin Indirect Bilirubin AST ALT Alkaline Phosphatase Total Protein Albumin 02/02/18 02/03/18 02/03/18 23:48 06:10 06:12 WBC RBC Hgb Hct MCV MCH MCHC RDW Plt Count MPV Prelim Diff (Auto) Neut % (Auto) Lymph % (Auto) [place] % (Auto) Eos % (Auto) Baso % (Auto) Neut # (Auto) Lymph # (Auto) [place] # (Auto) Eos # (Auto) Baso # (Auto) WBC Differential Seg Neuts % (Manual) Band Neuts % (Manual) Lymphocytes % (Manual) Monocytes % (Manual) Eosinophils % (Manual) Basophils % (Manual) Myelocytes % (Man) Abs Neuts (Manual) Differential Comment Platelet Estimate Platelet Morphology Sodium Potassium Chloride Carbon Dioxide Anion Gap BUN Creatinine Estimated GFR POC Glucose 284 H 38 L* 36 L* Random Glucose Calcium Total Bilirubin Direct Bilirubin Indirect Bilirubin AST ALT Alkaline Phosphatase Total Protein Albumin 02/03/18 02/03/18 02/03/18 06:26 06:49 06:59 WBC 13.5 H RBC 2.72 L Hgb 8.3 L Hct 24.0 L MCV 88.3 MCH 30.4 MCHC 34.5 RDW 18.2 H Plt Count 188 MPV 9.1 Prelim Diff (Auto) Neut % (Auto) Lymph % (Auto) [place] % (Auto) Eos % (Auto) Baso % (Auto) Neut # (Auto) Lymph # (Auto) [place] # (Auto) Eos # (Auto) Baso # (Auto) WBC Differential Seg Neuts % (Manual) Band Neuts % (Manual) Lymphocytes % (Manual) Monocytes % (Manual) Eosinophils % (Manual) Basophils % (Manual) Myelocytes % (Man) Abs Neuts (Manual) Differential Comment Platelet Estimate Platelet Morphology Sodium Potassium Chloride Carbon Dioxide Anion Gap BUN Creatinine Estimated GFR POC Glucose 161 H 103 Random Glucose Calcium Total Bilirubin Direct Bilirubin Indirect Bilirubin AST ALT Alkaline Phosphatase Total Protein Albumin 02/03/18 02/03/18 02/03/18 06:59 09:01 09:03 WBC RBC Hgb Hct MCV MCH MCHC RDW Plt Count MPV Prelim Diff (Auto) Neut % (Auto) Lymph % (Auto) [place] % (Auto) Eos % (Auto) Baso % (Auto) Neut # (Auto) Lymph # (Auto) [place] # (Auto) Eos # (Auto) Baso # (Auto) WBC Differential Seg Neuts % (Manual) Band Neuts % (Manual) Lymphocytes % (Manual) Monocytes % (Manual) Eosinophils % (Manual) Basophils % (Manual) Myelocytes % (Man) Abs Neuts (Manual) Differential Comment Platelet Estimate Platelet Morphology Sodium 140 Potassium 4.6 Chloride 99 Carbon Dioxide 29.5 Anion Gap 12 BUN 109 H Creatinine 6.55 H Estimated GFR 9 L POC Glucose 44 L* 46 L* Random Glucose 90 Calcium 8.4 L Total Bilirubin 1.0 Direct Bilirubin 0.4 H Indirect Bilirubin 0.6 AST 23 ALT 43 Alkaline Phosphatase 141 H Total Protein 6.2 L Albumin 2.6 L 02/03/18 02/03/18 02/03/18 09:40 12:21 18:09 WBC RBC Hgb Hct MCV MCH MCHC RDW Plt Count MPV Prelim Diff (Auto) Neut % (Auto) Lymph % (Auto) [place] % (Auto) Eos % (Auto) Baso % (Auto) Neut # (Auto) Lymph # (Auto) [place] # (Auto) Eos # (Auto) Baso # (Auto) WBC Differential Seg Neuts % (Manual) Band Neuts % (Manual) Lymphocytes % (Manual) Monocytes % (Manual) Eosinophils % (Manual) Basophils % (Manual) Myelocytes % (Man) Abs Neuts (Manual) Differential Comment Platelet Estimate Platelet Morphology Sodium Potassium Chloride Carbon Dioxide Anion Gap BUN Creatinine Estimated GFR POC Glucose 144 H 105 137 H Random Glucose Calcium Total Bilirubin Direct Bilirubin Indirect Bilirubin AST ALT Alkaline Phosphatase Total Protein Albumin 02/03/18 02/04/18 02/04/18 23:12 06:44 12:27 WBC RBC Hgb Hct MCV MCH MCHC RDW Plt Count MPV Prelim Diff (Auto) Neut % (Auto) Lymph % (Auto) [place] % (Auto) Eos % (Auto) Baso % (Auto) Neut # (Auto) Lymph # (Auto) [place] # (Auto) Eos # (Auto) Baso # (Auto) WBC Differential Seg Neuts % (Manual) Band Neuts % (Manual) Lymphocytes % (Manual) Monocytes % (Manual) Eosinophils % (Manual) Basophils % (Manual) Myelocytes % (Man) Abs Neuts (Manual) Differential Comment Platelet Estimate Platelet Morphology Sodium Potassium Chloride Carbon Dioxide Anion Gap BUN Creatinine Estimated GFR POC Glucose 176 H 233 H 161 H Random Glucose Calcium Total Bilirubin Direct Bilirubin Indirect Bilirubin AST ALT Alkaline Phosphatase Total Protein Albumin 02/04/18 02/05/18 02/05/18 20:43 01:36 06:12 WBC 10.3 RBC 2.60 L Hgb 8.0 L Hct 23.5 L MCV 90.6 MCH 30.9 MCHC 34.1 RDW 17.7 H Plt Count 198 MPV 9.0 Prelim Diff (Auto) Slide review pending Neut % (Auto) 79.3 H Lymph % (Auto) 8.2 L [place] % (Auto) 6.7 Eos % (Auto) 4.5 H Baso % (Auto) 1.3 Neut # (Auto) 8.1 H Lymph # (Auto) 0.8 L [place] # (Auto) 0.7 Eos # (Auto) 0.5 H Baso # (Auto) 0.1 WBC Differential Manual diff final Seg Neuts % (Manual) 73 H Band Neuts % (Manual) 12 H Lymphocytes % (Manual) 3 L Monocytes % (Manual) 5 Eosinophils % (Manual) 3 Basophils % (Manual) 3 H Myelocytes % (Man) 1 H Abs Neuts (Manual) 8.9 H Differential Comment . Platelet Estimate Normal Platelet Morphology Normal Sodium Potassium Chloride Carbon Dioxide Anion Gap BUN Creatinine Estimated GFR POC Glucose 377 H 223 H Random Glucose Calcium Total Bilirubin Direct Bilirubin Indirect Bilirubin AST ALT Alkaline Phosphatase Total Protein Albumin 02/05/18 02/05/18 02/05/18 06:12 06:14 12:28 WBC RBC Hgb Hct MCV MCH MCHC RDW Plt Count MPV Prelim Diff (Auto) Neut % (Auto) Lymph % (Auto) [place] % (Auto) Eos % (Auto) Baso % (Auto) Neut # (Auto) Lymph # (Auto) [place] # (Auto) Eos # (Auto) Baso # (Auto) WBC Differential Seg Neuts % (Manual) Band Neuts % (Manual) Lymphocytes % (Manual) Monocytes % (Manual) Eosinophils % (Manual) Basophils % (Manual) Myelocytes % (Man) Abs Neuts (Manual) Differential Comment Platelet Estimate Platelet Morphology Sodium 137 Potassium 4.8 Chloride 100 Carbon Dioxide 26.5 Anion Gap 11 BUN 91 H Creatinine 6.58 H Estimated GFR 9 L POC Glucose 125 H 267 H Random Glucose 111 H Calcium 9.0 Total Bilirubin Direct Bilirubin Indirect Bilirubin AST ALT Alkaline Phosphatase Total Protein Albumin Result Diagrams: 02/05/18 06:12 02/05/18 06:12 Microbiology: Microbiology 02/04/18 12:36 Aerobic Blood Culture - Preliminary Blood - Line No growth in 1 day Anaerobic Blood Culture - Preliminary No growth in 1 day 02/04/18 12:30 Aerobic Blood Culture - Preliminary Blood - Line No growth in 1 day Anaerobic Blood Culture - Preliminary No growth in 1 day 01/29/18 14:27 Aerobic Blood Culture - Final Blood - Peripheral No growth in 5 days Anaerobic Blood Culture - Final No growth in 5 days 01/29/18 14:35 Aerobic Blood Culture - Final Blood - Peripheral No growth in 5 days Anaerobic Blood Culture - Final Staphylococcus epidermidis Imaging: ITS Impressions Cervical Spine CT 01/14/18 21:58 CONCLUSION: 1. No acute fracture or malalignment. 2. Subcutaneous emphysema again noted as well as the known right pneumothorax. Head CT 01/14/18 21:58 CONCLUSION: 1. No acute hemorrhage or mass effect. 2. Stable area of encephalomalacia in the right lateral lobe. . Abdomen/Bladder Ultrasound 01/16/18 00:00 CONCLUSION: 1. Trace ascites. 2. Negative renal ultrasound Abdomen/Pelvis CT 01/16/18 00:00 CONCLUSION: 1. Minimal free intraperitoneal air. I don't see etiology for such 2. Dense consolidation both lung bases with small bilateral chest tubes 3. Trace pneumothorax on the left. No pneumothorax on the right. 4. Moderate fatty replacement to the liver with prominent gallbladder Chest CT 01/16/18 00:00 . CONCLUSION: 1. Dense consolidation in both lung bases small bore chest tubes evident. 2. Trace pneumothorax on the left 3. No significant fluid. Cervical Spine MRI 01/27/18 00:00 CONCLUSION: 1. No fracture or subluxation seen of the cervical spine but there is edema in the erector spinae muscles, especially on the right at the level of the upper cervical spine. This is nonspecific but presumably related to an acute or subacute strain. Localized early denervation would be conceivable but I don't see any atrophy. 2. There is an age-indeterminate left foraminal disc protrusion at C3/C4 that is probably impinging on the transiting left C4 nerve root. 3. Multilevel degenerative changes that otherwise appear chronic, as described. Associated high-grade foraminal stenosis on the right at C4/C5, bilateral at C5/C6 and C6/C7. No high-grade spinal stenosis demonstrated. Head MRI 01/27/18 00:00 CONCLUSION: 1. Remote right posterior parietal mid convexity infarct. 2. Mild cerebral atrophy with mild periventricular ischemic white matter demyelination. 3. Stable paranasal sinus mucosal disease and mastoiditis. 4. No acute abnormality. Specifically, no acute infarction or hemorrhage. Abdomen X-Ray 01/28/18 00:00 CONCLUSION: Mild gaseous distention of bowel. Carotid Doppler Study 01/28/18 00:00 CONCLUSION: 1. Right Internal Carotid Artery: No significant stenosis or atherosclerotic plaque is visualized. 2. Left Internal Carotid Artery: No significant stenosis or atherosclerotic plaque is visualized. Chest X-Ray 02/03/18 00:00 CONCLUSION: 1. Persistent patchy infiltrate within the mid and lower lung valenzuela bilaterally consistent with pulmonary edema versus pneumonia. Clinical correlation is recommended. 2. Dobbhoff tube has its tip below the diaphragm at least to the level of the stomach. Venous Doppler Study 02/05/18 00:00 CONCLUSION: No venous thrombosis is identified within the left upper extremity. Procedures: 01/14: Intubation x2 01/14: Right and left chest tube placement 01/14: Right brachial arterial line placement 01/14: Right subclavian central line placement 01/17: Placement of L IJ hemodialysis catheter. Assessment and Plan - Disease Oriented Problem List (1) Delirium tremens (2) Bilateral pneumothoraces (3) Endotracheally intubated (4) Elevated troponin (5) Acute renal failure (6) Alcohol abuse (7) Alcohol withdrawal seizure with complication (8) Rhabdomyolysis Pertinent Non-Medical Issues: Psychosocial: He lived in many states growing up. 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 He has been once to his current , from who he is now and has no children. Spiritual: [employer] available. Legal: No advance directives completed. Ethical issues impacting care: Patient does not appear capacitated for decision- making. . Important Contacts: : Tressa Canseco [phone] Sister: Lala Canseco . Prognosis: His prognosis is guarded. He still has significant deficits and is at risk for recurrent complications, infections and decline. At this time he has multisystem organ compromise to include cardiogenic shock status post GA on admission with cardiac arrest x2, respiratory insufficiency, acute kidney injury on hemodialysis and hepatitis secondary to shock. It is the opinion of nephrology that his renal failure is caused by his cardiac failure equating to cardiorenal syndrome. He has left-sided weakness and appears aphasic at this time. Pending speech therapy evaluation. He was previously too unstable from a respiratory standpoint to undergo evaluation. He is at significant risk for continued complications and decline. . Code Status: Full Code Plan: PLAN: Legal decision maker: At this time the patient is not capacitated for decision-making and it is uncertain whether he statutes, his Tressa would be his proxy decision-maker. Goals: Aggressive at this time. CODE STATUS: FULL CODE SYMPTOMS: * Dysphasia: Speech therapy has evaluated and found him to have mild oropharyngeal dysphasia and has placed him on a pured diet with nectar thickened liquids. He is seen to have difficulty controlling his oral secretions. Speech therapy continues to follow. MRI of the brain shows no CVA , concern for possible anoxic brain injury status post cardiac arrest x2 with CPR, resultant bilateral tension pneumothoraces and cardiogenic shock. * Encephalopathy: Intermittently following commands. He has a long history of alcoholism and may have sustained a mild hypoxic injury on admission. He also has a history of a previous stroke. It is uncertain how his neurological status will recover. Neurology following. Left upper extremity weakness. Speech garbled. Palliative care will continue to follow the patient during hospital course as condition evolves, to assist patient/decision-maker with understanding of their medical conditions, weighing benefits/burdens of treatment options, for clarification of goals of treatment. Additionally will assist with any symptoms of palliative concern. . Attestation Attestation: To help prompt me to consider important information that might be impacting today's encounter and assessment, information from prior notes written by myself or my colleagues may have been "brought forward" into today's note. My signature on this note, however, is an attestation that I personally performed the exam, history, and/or decision-making noted today, and, unless otherwise indicated, the interactions with patient, family, and staff as well as the review of records all occurred today. I also attest that the listed assessment and stated plan reflect my best clinical judgment today based on the combination of historical information, prior notes, and today's exam/ interactions. When time spent is documented, it refers only to time spent today by the signer, or if indicated, combined time spent today by collaborating physician/nurse practitioner. .
--- NOTE | 2018-02-05 16:09 | P.DIET ---
Nutritional Evaluation Type of nutrition evaluation: follow-up Nutrition consult regarding: Tube Feeding (TFing stopped 02/03) Nutrition screening: [facility] [place] Counting[place] Subjective Subjective Comments: Confused. Ate 100% of breakfast. Objective - Diagnosis Seizures/Respiratory Distress/Intubated - Objective % IBW: 150 Body Weight Used for Calculations: IBW (75.5 kg) Energy Needs - Lower Range (kCal/kg): 30 Energy Needs - Upper Range (kCal/kg): 35 Lower Limit kCal/kg (kCals): 2,264 Upper Limit kCal/kg (kCals): 2,643 Lower Limit Protein Factor (Grams per Kg): 1.2 Upper Limit Protein Factor (Grams per Kg): 1.5 Lower Protein Needs (Protein): 91 Upper Protein Needs (Protein): 113 Dietitian Reviewed in Medical Record: Current diet, Curent medications, Intake & Output, Labs, Medical history Diet Order: Pureed, nectar thickened liquids Objective Comments: PMH includes: Anxiety, CVA, DM, ETOH Abuse, HTN, Alcohol Abuse Labs: glu 111, HgA1c 7.5 (01/31) Assessment Assessment: Pt's TF stopped 02/03 when ng-t was pulled out. ST recommends pureed, with nectar thickened liquids. Pt is dialysis dependent. Recommend diabetic restriction be added to diet for better glucose control. Calorie count initiated per Dr's order. Recommendations: 1. Diet texture per ST 2. Add 2200 ADA 3. Calorie counts from 02/05-02/08 Dietitian to Monitor: Lab values, Intake & Output, Weight change, PO Intake, Diet advancement, Swallow recommendations, Medical course
--- NOTE | 2018-02-05 18:53 | P.PN ---
Subjective Interval history: Awake and lethargic. Has arm and leg edema. Seems confused. On O2 3 L. Physical Exam Vital signs: Vital Signs 02/04/18 19:40 02/04/18 20:00 02/04/18 22:47 Temperature 97.9 F 98.1 F Pulse Rate 85 86 91 H Respiratory Rate 20 20 18 Blood Pressure 139/85 142/76 H Pulse Oximetry 94 L 94 L 02/05/18 03:45 02/05/18 04:00 02/05/18 08:00 Temperature 97.3 F L 92.9 F L Pulse Rate 83 80 88 Respiratory Rate 18 20 20 Blood Pressure 184/90 H 169/80 H Pulse Oximetry 93 L 92 L 02/05/18 11:33 02/05/18 12:30 02/05/18 14:20 Temperature 99.0 F 98.9 F Pulse Rate 90 90 91 H Respiratory Rate 20 18 20 Blood Pressure 134/69 162/86 H Pulse Oximetry 91 L 93 L 94 L 02/05/18 18:00 Temperature Pulse Rate 90 Respiratory Rate Blood Pressure Pulse Oximetry Intake & Output 02/04/18 02/05/18 02/05/18 18:59 06:59 18:59 Intake Total 1585 / 1585 105 / 105 1255 / 1255 Output Total 3500 / 3500 Balance -1915 / -1915 105 / 105 1255 / 1255 Weight 100.8 kg Intake: IV 1105 / 1105 105 / 105 505 / 505 D5W/Normal Saline Inj 1,000 ML 1000 / 1000 400 / 400 @ 60 mls/hr IV.CONT .[id number] [facility] Rx#:[id number] Keppra Inj 500 MG In NS Inj 100 105 / 105 105 / 105 105 / 105 ML @ 400 mls/hr IV.SIG Q12H [facility] Rx#:[id number] Oral 480 / 480 750 / 750 Output: Hemodialysis Amount 3500 / 3500 Other: Date of Last Bowel Movement 02/04/18 02/05/18 02/04/18 # Bowel Movements 1 # Incontinent Bowel Movements 3 Narrative: GENERAL: Obese Mid aged W/M in No acute distress. Encephalopathic. CARDIOVASCULAR: Normal rate and regular rhythm without murmurs, gallops, or rubs. RESPIRATORY: Good respiratory efforts. Breath sounds equal and clear to auscultation bilaterally. GASTROINTESTINAL: Abdomen soft, non-tender, non-distended. Normal active bowel sounds MUSCULOSKELETAL: Extremities without cyanosis,but has 2+ edema. NEURO: Awake, alert not oriented. Profoundly weak. Can say yes and no to answer some questions. Remains confused. PSYCH: Calm - Urinary Catheter Management Indwelling Temp Sensing Catheter Cath placed during this visit: yes, but has since been removed by the nurse Reason for continuing: Decision to DC catheter Insertion date: 01/14/18 Insertion time: 22:00 Removal date: 01/21/18 Removal time: 18:00 Straight Cath placed during this visit: no Results - Labs CBC & Chem 7: 02/05/18 06:12 02/05/18 06:12 Laboratory Results - last 24 hr 02/04/18 02/05/18 02/05/18 20:43 01:36 06:12 WBC 10.3 RBC 2.60 L Hgb 8.0 L Hct 23.5 L MCV 90.6 MCH 30.9 MCHC 34.1 RDW 17.7 H Plt Count 198 MPV 9.0 Prelim Diff (Auto) Slide review pending Neut % (Auto) 79.3 H Lymph % (Auto) 8.2 L [place] % (Auto) 6.7 Eos % (Auto) 4.5 H Baso % (Auto) 1.3 Neut # (Auto) 8.1 H Lymph # (Auto) 0.8 L [place] # (Auto) 0.7 Eos # (Auto) 0.5 H Baso # (Auto) 0.1 WBC Differential Manual diff final Seg Neuts % (Manual) 73 H Band Neuts % (Manual) 12 H Lymphocytes % (Manual) 3 L Monocytes % (Manual) 5 Eosinophils % (Manual) 3 Basophils % (Manual) 3 H Myelocytes % (Man) 1 H Abs Neuts (Manual) 8.9 H Differential Comment . Platelet Estimate Normal Platelet Morphology Normal Sodium Potassium Chloride Carbon Dioxide Anion Gap BUN Creatinine Estimated GFR POC Glucose 377 H 223 H Random Glucose Calcium 02/05/18 02/05/18 02/05/18 06:12 06:14 12:28 WBC RBC Hgb Hct MCV MCH MCHC RDW Plt Count MPV Prelim Diff (Auto) Neut % (Auto) Lymph % (Auto) [place] % (Auto) Eos % (Auto) Baso % (Auto) Neut # (Auto) Lymph # (Auto) [place] # (Auto) Eos # (Auto) Baso # (Auto) WBC Differential Seg Neuts % (Manual) Band Neuts % (Manual) Lymphocytes % (Manual) Monocytes % (Manual) Eosinophils % (Manual) Basophils % (Manual) Myelocytes % (Man) Abs Neuts (Manual) Differential Comment Platelet Estimate Platelet Morphology Sodium 137 Potassium 4.8 Chloride 100 Carbon Dioxide 26.5 Anion Gap 11 BUN 91 H Creatinine 6.58 H Estimated GFR 9 L POC Glucose 125 H 267 H Random Glucose 111 H Calcium 9.0 02/05/18 17:02 WBC RBC Hgb Hct MCV MCH MCHC RDW Plt Count MPV Prelim Diff (Auto) Neut % (Auto) Lymph % (Auto) [place] % (Auto) Eos % (Auto) Baso % (Auto) Neut # (Auto) Lymph # (Auto) [place] # (Auto) Eos # (Auto) Baso # (Auto) WBC Differential Seg Neuts % (Manual) Band Neuts % (Manual) Lymphocytes % (Manual) Monocytes % (Manual) Eosinophils % (Manual) Basophils % (Manual) Myelocytes % (Man) Abs Neuts (Manual) Differential Comment Platelet Estimate Platelet Morphology Sodium Potassium Chloride Carbon Dioxide Anion Gap BUN Creatinine Estimated GFR POC Glucose 313 H Random Glucose Calcium Microbiology 02/04/18 12:36 Blood - Line Aerobic Blood Culture - Preliminary No growth in 1 day 02/04/18 12:36 Blood - Line Anaerobic Blood Culture - Preliminary No growth in 1 day 02/04/18 12:30 Blood - Line Aerobic Blood Culture - Preliminary No growth in 1 day 02/04/18 12:30 Blood - Line Anaerobic Blood Culture - Preliminary No growth in 1 day - Imaging Impressions Venous Doppler Study 02/05/18 00:00 CONCLUSION: No venous thrombosis is identified within the left upper extremity. Assessment and Plan - Assessment (1) Encephalopathy acute Code(s): G93.40 - Encephalopathy, unspecified Status: Acute (2) Overdose Code(s): T50.901A - Poisoning by unspecified drugs, medicaments and biological substances, accidental (unintentional), initial encounter Status: Acute (3) Suicidal ideation Code(s): R45.851 - Suicidal ideations Status: Acute (4) Delirium tremens Code(s): F10.231 - Alcohol dependence with withdrawal delirium Status: Acute (5) Bilateral pneumothoraces Code(s): J93.9 - Pneumothorax, unspecified Status: Acute (6) Endotracheally intubated Code(s): Z97.8 - Presence of other specified devices Status: Acute (7) Elevated troponin Code(s): R74.8 - Abnormal levels of other serum enzymes Status: Acute (8) Acute renal failure Code(s): N17.9 - Acute kidney failure, unspecified Status: Acute (9) Alcohol abuse Code(s): F10.10 - Alcohol abuse, uncomplicated Status: Acute - Plan - Plan 1. Respiratory insufficiency, status post extubation on 01/25/2018. 2. s/p pneumothoraces on arrival, status post bilateral small bore chest tube placement on 01/15/2018. removed 01/28 3. Acute kidney injury. 4. Leukocytosis. 5. Anemia. 6. NSTEMI 7. Morbid obesity. 8. Hypertension. 9. Diabetes mellitus. 10. s/p seizures. Plan 1.Wean oxygen and use 2 L N/C 2.Bronchodilators-DuoNeb QID . 3.Aspiration precautions. 4.BIPAP nocturnally and p.r.n. for respiratory distress. 5. Taper Prednisone 10 mg daily 6.Nutrition support. on tube feeds via an NG tube, Nepro @60 mL an hour. Patient might need PEG tube placement if continue to fail speech study. 7. PT Evaluation (2) Overdose Qualifiers: Encounter type: initial encounter Injury intent: undetermined intent Qualified Code(s): T50.904A - Poisoning by unspecified drugs, medicaments and biological substances, undetermined, initial encounter
[2018-02-05] MEDS: predniSONE 10 MG Tablet PO SCH (20:48)
[2018-02-05] MEDS: Insulin Detemir Inj 1,000 UNIT/10 ML Vial SQ SCH (20:49)
[2018-02-06] MEDS: Insulin NovoLIN Regular Correctional Sugar Inj SQ SCH ×4 (01:21→19:26)
[2018-02-06] MEDS: Oral Hygiene Kit OROPHARYNG SCH ×4 (01:22→16:22)
[2018-02-06] MEDS: Pantoprazole Inj 40 MG Vial IV.PUSH SCH ×2 (02:45→15:00)
[2018-02-06 05:14] LABS: Baso # (Auto) 0.1 th/mm3 (0.0-0.2); Baso % (Auto) 0.8 % (0.0-2.0); Eos # (Auto) 0.1 th/mm3 (0.0-0.4); Eos % (Auto) 1.7 % (0.0-4.0); Hematocrit 21.4 % (39.0-51.0); Hemoglobin 7.3 gm/dL (13.0-17.0); Lymph # (Auto) 0.4 th/mm3 (1.0-4.8); Lymph % (Auto) 4.7 % (9.0-44.0); Mean Corpuscular HGB Conc 34.4 % (32.0-36.0); Mean Corpuscular Hemoglobin 30.8 pg (27.0-34.0); Mean Corpuscular Volume 89.7 fL (80.0-100.0); Mean Platelet Volume 8.9 fL (7.0-11.0); Mono # (Auto) 0.5 th/mm3 (0.0-0.9); Mono % (Auto) 5.8 % (0.0-8.0); Neut # (Auto) 7.8 th/mm3 (1.8-7.7); Platelet Count 171 th/mm3 (150-450); Red Blood Count 2.38 mil/mm3 (4.50-5.90); Red Cell Distribution Width 18.2 % (11.6-17.2)
[2018-02-06 05:40] LABS: Albumin 2.6 g/dL (3.4-5.0); Calcium 9.1 mg/dL (8.5-10.1); Carbon Dioxide 22.5 meq/L (21.0-32.0); Phosphorus 8.9 mg/dL (2.5-4.9); Potassium 5.6 meq/L (3.5-5.1)
[2018-02-06] MEDS: hydrALAZINE 25 MG Tablet PO SCH ×3 (05:59→21:01)
[2018-02-06] MEDS: Levothyroxine 88 MCG Tablet PO SCH (06:00)
[2018-02-06 08:16] LABS: Eosinophils 1 % (0-4); Lymphocytes 1 % (9-44); Metamyelocytes 2 % (0-1); Monocytes 5 % (0-8); Myelocytes 1 % (0-0)
[2018-02-06 08:17] LABS: Platelet Estimate Normal (Normal); Platelet Morphology Normal (Normal)
--- NOTE | 2018-02-06 08:35 | XR ---
EXAM DATE: 02/06/2018 8:30 AM EST AGE/SEX: 62 years / Male INDICATIONS: Shortness of breath, edema. CLINICAL DATA: This is the patient's subsequent encounter. Patient reports that signs and symptoms h ave been present for 1 day and indicates a pain score of Nonresponsive. MEDICAL/SURGICAL HISTORY: . Diabetes. Hypertension. CVA. ETOH abuse. Anxiety. Non-responsive. COMPARISON: [facility] [place], CHEST 1V SINGLE AP, 02/03/2018. [facility] [place], CHEST 1V SINGLE AP, 02/01/2018. . FINDINGS: Portable AP view of the chest demonstrates a normal-sized cardiac silhouette with calcification of th e aorta. Left IJ central line distal tip is in the SVC. EKG lines overlie the patient. There is mild bibasilar opacity. No pleural effusion or pneumothorax is identified. Bones demonstrate no acute find ing. CONCLUSION: There is mild bibasilar airspace opacity that has not significantly changed from the prior study. The appearance suggests either subsegmental atelectasis or consolidation. No pleural effusion is present . Electronically signed by: Dionisio Tobar MD 02/06/2018 8:33 AM EST
[2018-02-06] MEDS: Heparin 10,000 UNITS/10 ML Vial (for IV use) OTHER PRN (09:11)
[2018-02-06] MEDS: Chlorhexidine 0.12% Oral Kit 15 ML UDC OROPHARYNG SCH ×2 (09:59→21:02)
[2018-02-06] MEDS: Artificial Tears Opth Drops 15 ML Bottle EACH EYE SCH ×2 (10:00→16:37)
[2018-02-06] MEDS: Folic Acid 1 MG Tablet PO SCH (10:00)
[2018-02-06] MEDS: Carvedilol 6.25 MG Tablet PO SCH ×2 (10:00→21:02)
[2018-02-06] MEDS: Senna/Docusate Sodium 8.6/50 MG Tablet PO SCH ×2 (10:01→21:02)
[2018-02-06] MEDS: predniSONE 10 MG Tablet PO SCH (14:30)
[2018-02-06] MEDS: Dextrose 5%/NaCl 0.9% Inj 1,000 ML IV.CONT SCH (15:30)
--- NOTE | 2018-02-06 15:49 | P.PNPAL ---
Reason for Visit Reason for visit: a. To assist with evaluation and management of symptoms including: Dysphasia, encephalopathy, agitation b. To assist medical decision maker(s) with: better understanding of current medical conditions; weighing benefits/burdens of medical treatment options; making medical treatment decisions. Subjective Subjective/Interval History: This is a 62-year-old male who presented to [facility] 01/14/2018 via EMS for altered mental status and seizures. He has had multiple admissions to [place] in 2018 mostly for alcohol intoxication the most recent was 4 days prior to this current admission. He has a long history of alcoholism. His reports he drinks 1 L of vodka daily. While in the ED he became obtunded and began vomiting dark material. Due to his inability to protect his airway, he was intubated. After the initial intubation he became combative and dislodged the tube acquiring removal of the initial ET tube and replacement of a second tube. After intubation, he subsequently went into cardiopulmonary arrest with ROSC after 2 cycles of CPR. Post CPR he was found to have significant subcu emphysema and was emergently sent to CT with CT of the head, chest and abdomen showed bilateral tension pneumothoraces as well as free air in the peritoneal cavity. Bilateral chest tubes were placed immediately and he was transferred to ICU where he arrested again and again had spontaneous return of circulation. Labs showed acute kidney injury, presumed to be from severe dehydration and aggressive IV fluid resuscitation was initiated. He was also found to have severe sepsis and vancomycin and cefepime were initiated with an infectious disease consultation and blood cultures. He remained critically ill requiring maximum doses of vasopressor support to include norepinephrine, vasopressin and epinephrine with subsequent worsening of his renal indices, eventually requiring dialysis. He initially required Flolan in addition to aggressive APRV mode of ventilation and after an 11-day course of intubation was subsequently extubated 01/25/2018. Patient seen today for medically necessary follow-up of dysphasia, agitation and encephalopathy. Patient remains on nectar thickened liquid diet and pured food, repeatedly failing swallowing evaluations. Speech therapy has been unable to evaluate and thus far today as he was in dialysis, however yesterday his evaluation revealed overt signs and symptoms of aspiration with cough and wet gurgly breath sounds after receiving regular consistency water via teaspoon x2. Patient continues to require verbal cues to chew and exhibits poor bolus formation with residual after swallowing. When his came into visit last night and was feeding him he became agitated , demanding "plain H20" and demanding to be discharged. states he was quite agitated, even repeatedly cursing and striking out with his right arm. At this evaluation today he is lethargic, barely arousing to voice and touch. He underwent dialysis this morning for elevated potassium, edema and worsening renal indices. E-GFR today is 7, potassium 5.6, creatinine 8.12, BUN 110. Encephalopathy waxes and wanes, intermittent, moderate, with patient sometimes able to speak clearly and sometimes babbling unintelligibly. No exacerbating or relieving factors have been identified. Today he is not following commands. . Family/Friend Interactions: Spoke with his Michelle and his sister, Lala. Reviewed clinical status, provided clinical update, explored CODE STATUS. At this time his is considering a DO NOT RESUSCITATE order, however wishes to work with his sister who wishes more time to process all the information prior to making a decision. I have encouraged her to discuss this with his so that all questions and concerns can be addressed prior to their decision. . Advance Directives Living Will: Never completed Health Care Surrogate: Never completed Durable Power of [employer] Machine Operator: Never completed Objective Vital Signs: Vital Signs 02/05/18 18:00 02/05/18 19:39 02/05/18 20:00 Temperature 100.4 F H Pulse Rate 90 95 H 87 Respiratory Rate 20 18 Blood Pressure 157/88 H Pulse Oximetry 95 02/05/18 23:57 02/06/18 03:54 02/06/18 04:00 Temperature 99.6 F 99.8 F H Pulse Rate 81 78 71 Respiratory Rate 18 18 18 Blood Pressure 140/78 172/98 H Pulse Oximetry 95 96 02/06/18 07:36 02/06/18 12:57 02/06/18 13:02 Temperature 98.1 F 97.6 F Pulse Rate 85 99 H 97 H Respiratory Rate 20 18 18 Blood Pressure 168/83 H 166/96 H Pulse Oximetry 93 L 93 L 99 Intake & Output 02/05/18 02/06/18 02/06/18 18:59 06:59 18:59 Intake Total 1255 / 1255 105 / 105 Output Total 3000 / 3000 Balance 1255 / 1255 105 / 105 -3000 / -3000 Weight 223 lb 1.725 oz Intake: IV 505 / 505 105 / 105 D5W/Normal Saline Inj 1,000 ML 400 / 400 @ 60 mls/hr IV.CONT .[id number] HENRY Rx#:[id number] Keppra Inj 500 MG In NS Inj 100 105 / 105 105 / 105 ML @ 400 mls/hr IV.SIG Q12H HENRY Rx#:[id number] Oral 750 / 750 Output: Hemodialysis Amount 3000 / 3000 Other: # Voids 1 # Urine Diapers 1 Date of Last Bowel Movement 02/04/18 02/05/18 02/05/18 # Incontinent Bowel Movements 3 Physical Exam: CONSTITUTIONAL/GENERAL: This is an overweight male patient, lying in bed, lethargic, in no apparent distress. TUBES/LINES/DRAINS: PIV x2, left IJ Vas-Cath CARDIOVASCULAR: Regular rate and rhythm without murmurs, gallops, or rubs. No JVD. Peripheral pulses symmetric. RESPIRATORY/CHEST: Symmetric, unlabored respirations. Lungs clear, diminished. Excessive oral secretions. GASTROINTESTINAL: Abdomen soft, non-tender, nondistended. No hepato-splenomegaly , or palpable masses. No guarding. Bowel sounds present. GENITOURINARY: Without palpable bladder distension. MUSCULOSKELETAL: Extremities without clubbing or cyanosis, 2+ generalized edema. No joint tenderness or effusion noted. No calf tenderness. No mottling or clubbing. NEUROLOGICAL: Lethargic, arousable, not attempting to speak today. PSYCHIATRIC: Lethargic today, status post dialysis. . Diagnostic Tests Laboratory: Laboratory Results - last 72 hr 02/03/18 02/03/18 02/04/18 18:09 23:12 06:44 WBC RBC Hgb Hct MCV MCH MCHC RDW Plt Count MPV Prelim Diff (Auto) Neut % (Auto) Lymph % (Auto) Kimball % (Auto) Eos % (Auto) Baso % (Auto) Neut # (Auto) Lymph # (Auto) Kimball # (Auto) Eos # (Auto) Baso # (Auto) WBC Differential Seg Neuts % (Manual) Band Neuts % (Manual) Lymphocytes % (Manual) Monocytes % (Manual) Eosinophils % (Manual) Basophils % (Manual) Metamyelocytes % (Man) Myelocytes % (Man) Abs Neuts (Manual) Differential Comment Platelet Estimate Platelet Morphology Sodium Potassium Chloride Carbon Dioxide Anion Gap BUN Creatinine Estimated GFR POC Glucose 137 H 176 H 233 H Random Glucose Calcium Phosphorus Albumin 02/04/18 02/04/18 02/05/18 12:27 20:43 01:36 WBC RBC Hgb Hct MCV MCH MCHC RDW Plt Count MPV Prelim Diff (Auto) Neut % (Auto) Lymph % (Auto) Kimball % (Auto) Eos % (Auto) Baso % (Auto) Neut # (Auto) Lymph # (Auto) Kimball # (Auto) Eos # (Auto) Baso # (Auto) WBC Differential Seg Neuts % (Manual) Band Neuts % (Manual) Lymphocytes % (Manual) Monocytes % (Manual) Eosinophils % (Manual) Basophils % (Manual) Metamyelocytes % (Man) Myelocytes % (Man) Abs Neuts (Manual) Differential Comment Platelet Estimate Platelet Morphology Sodium Potassium Chloride Carbon Dioxide Anion Gap BUN Creatinine Estimated GFR POC Glucose 161 H 377 H 223 H Random Glucose Calcium Phosphorus Albumin 02/05/18 02/05/18 02/05/18 06:12 06:12 06:14 WBC 10.3 RBC 2.60 L Hgb 8.0 L Hct 23.5 L MCV 90.6 MCH 30.9 MCHC 34.1 RDW 17.7 H Plt Count 198 MPV 9.0 Prelim Diff (Auto) Slide review pending Neut % (Auto) 79.3 H Lymph % (Auto) 8.2 L Kimball % (Auto) 6.7 Eos % (Auto) 4.5 H Baso % (Auto) 1.3 Neut # (Auto) 8.1 H Lymph # (Auto) 0.8 L Kimball # (Auto) 0.7 Eos # (Auto) 0.5 H Baso # (Auto) 0.1 WBC Differential Manual diff final Seg Neuts % (Manual) 73 H Band Neuts % (Manual) 12 H Lymphocytes % (Manual) 3 L Monocytes % (Manual) 5 Eosinophils % (Manual) 3 Basophils % (Manual) 3 H Metamyelocytes % (Man) Myelocytes % (Man) 1 H Abs Neuts (Manual) 8.9 H Differential Comment . Platelet Estimate Normal Platelet Morphology Normal Sodium 137 Potassium 4.8 Chloride 100 Carbon Dioxide 26.5 Anion Gap 11 BUN 91 H Creatinine 6.58 H Estimated GFR 9 L POC Glucose 125 H Random Glucose 111 H Calcium 9.0 Phosphorus Albumin 02/05/18 02/05/18 02/05/18 12:28 17:02 23:11 WBC RBC Hgb Hct MCV MCH MCHC RDW Plt Count MPV Prelim Diff (Auto) Neut % (Auto) Lymph % (Auto) Kimball % (Auto) Eos % (Auto) Baso % (Auto) Neut # (Auto) Lymph # (Auto) Kimball # (Auto) Eos # (Auto) Baso # (Auto) WBC Differential Seg Neuts % (Manual) Band Neuts % (Manual) Lymphocytes % (Manual) Monocytes % (Manual) Eosinophils % (Manual) Basophils % (Manual) Metamyelocytes % (Man) Myelocytes % (Man) Abs Neuts (Manual) Differential Comment Platelet Estimate Platelet Morphology Sodium Potassium Chloride Carbon Dioxide Anion Gap BUN Creatinine Estimated GFR POC Glucose 267 H 313 H 140 H Random Glucose Calcium Phosphorus Albumin 02/06/18 02/06/18 02/06/18 03:41 03:41 06:02 WBC 9.0 RBC 2.38 L Hgb 7.3 L Hct 21.4 L MCV 89.7 MCH 30.8 MCHC 34.4 RDW 18.2 H Plt Count 171 MPV 8.9 Prelim Diff (Auto) Slide review pending Neut % (Auto) 87.0 H Lymph % (Auto) 4.7 L Kimball % (Auto) 5.8 Eos % (Auto) 1.7 Baso % (Auto) 0.8 Neut # (Auto) 7.8 H Lymph # (Auto) 0.4 L Kimball # (Auto) 0.5 Eos # (Auto) 0.1 Baso # (Auto) 0.1 WBC Differential Manual diff final Seg Neuts % (Manual) 87 H Band Neuts % (Manual) 2 Lymphocytes % (Manual) 1 L Monocytes % (Manual) 5 Eosinophils % (Manual) 1 Basophils % (Manual) 1 Metamyelocytes % (Man) 2 H Myelocytes % (Man) 1 H Abs Neuts (Manual) 8.3 H Differential Comment . Platelet Estimate Normal Platelet Morphology Normal Sodium 133 L Potassium 5.6 H D Chloride 96 L Carbon Dioxide 22.5 Anion Gap 15 BUN 110 H Creatinine 8.12 H Estimated GFR 7 L POC Glucose 128 H Random Glucose 103 Calcium 9.1 Phosphorus 8.9 H Albumin 2.6 L 02/06/18 13:08 WBC RBC Hgb Hct MCV MCH MCHC RDW Plt Count MPV Prelim Diff (Auto) Neut % (Auto) Lymph % (Auto) Kimball % (Auto) Eos % (Auto) Baso % (Auto) Neut # (Auto) Lymph # (Auto) Kimball # (Auto) Eos # (Auto) Baso # (Auto) WBC Differential Seg Neuts % (Manual) Band Neuts % (Manual) Lymphocytes % (Manual) Monocytes % (Manual) Eosinophils % (Manual) Basophils % (Manual) Metamyelocytes % (Man) Myelocytes % (Man) Abs Neuts (Manual) Differential Comment Platelet Estimate Platelet Morphology Sodium Potassium Chloride Carbon Dioxide Anion Gap BUN Creatinine Estimated GFR POC Glucose 104 Random Glucose Calcium Phosphorus Albumin Result Diagrams: 02/06/18 03:41 02/06/18 03:41 Microbiology: Microbiology 02/04/18 12:36 Aerobic Blood Culture - Preliminary Blood - Line No growth in 2 days Anaerobic Blood Culture - Preliminary No growth in 2 days 02/04/18 12:30 Aerobic Blood Culture - Preliminary Blood - Line No growth in 2 days Anaerobic Blood Culture - Preliminary No growth in 2 days 01/29/18 14:27 Aerobic Blood Culture - Final Blood - Peripheral No growth in 5 days Anaerobic Blood Culture - Final No growth in 5 days 01/29/18 14:35 Aerobic Blood Culture - Final Blood - Peripheral No growth in 5 days Anaerobic Blood Culture - Final Staphylococcus epidermidis Imaging: ITS Impressions Cervical Spine CT 01/14/18 21:58 CONCLUSION: 1. No acute fracture or malalignment. 2. Subcutaneous emphysema again noted as well as the known right pneumothorax. Head CT 01/14/18 21:58 CONCLUSION: 1. No acute hemorrhage or mass effect. 2. Stable area of encephalomalacia in the right lateral lobe. . Abdomen/Bladder Ultrasound 01/16/18 00:00 CONCLUSION: 1. Trace ascites. 2. Negative renal ultrasound Abdomen/Pelvis CT 01/16/18 00:00 CONCLUSION: 1. Minimal free intraperitoneal air. I don't see etiology for such 2. Dense consolidation both lung bases with small bilateral chest tubes 3. Trace pneumothorax on the left. No pneumothorax on the right. 4. Moderate fatty replacement to the liver with prominent gallbladder Chest CT 01/16/18 00:00 . CONCLUSION: 1. Dense consolidation in both lung bases small bore chest tubes evident. 2. Trace pneumothorax on the left 3. No significant fluid. Cervical Spine MRI 01/27/18 00:00 CONCLUSION: 1. No fracture or subluxation seen of the cervical spine but there is edema in the erector spinae muscles, especially on the right at the level of the upper cervical spine. This is nonspecific but presumably related to an acute or subacute strain. Localized early denervation would be conceivable but I don't see any atrophy. 2. There is an age-indeterminate left foraminal disc protrusion at C3/C4 that is probably impinging on the transiting left C4 nerve root. 3. Multilevel degenerative changes that otherwise appear chronic, as described. Associated high-grade foraminal stenosis on the right at C4/C5, bilateral at C5/C6 and C6/C7. No high-grade spinal stenosis demonstrated. Head MRI 01/27/18 00:00 CONCLUSION: 1. Remote right posterior parietal mid convexity infarct. 2. Mild cerebral atrophy with mild periventricular ischemic white matter demyelination. 3. Stable paranasal sinus mucosal disease and mastoiditis. 4. No acute abnormality. Specifically, no acute infarction or hemorrhage. Abdomen X-Ray 01/28/18 00:00 CONCLUSION: Mild gaseous distention of bowel. Carotid Doppler Study 01/28/18 00:00 CONCLUSION: 1. Right Internal Carotid Artery: No significant stenosis or atherosclerotic plaque is visualized. 2. Left Internal Carotid Artery: No significant stenosis or atherosclerotic plaque is visualized. Venous Doppler Study 02/05/18 00:00 CONCLUSION: No venous thrombosis is identified within the left upper extremity. Chest X-Ray 02/06/18 00:00 CONCLUSION: There is mild bibasilar airspace opacity that has not significantly changed from the prior study. The appearance suggests either subsegmental atelectasis or consolidation. No pleural effusion is present. Procedures: 01/14: Intubation x2 01/14: Right and left chest tube placement 01/14: Right brachial arterial line placement 01/14: Right subclavian central line placement 01/17: Placement of L IJ hemodialysis catheter. Assessment and Plan - Disease Oriented Problem List (1) Delirium tremens (2) Bilateral pneumothoraces (3) Endotracheally intubated (4) Elevated troponin (5) Acute renal failure (6) Alcohol abuse (7) Alcohol withdrawal seizure with complication (8) Rhabdomyolysis Pertinent Non-Medical Issues: Psychosocial: He lived in many states growing up. 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 He has been once to his current , from who he is now and has no children. Spiritual: [employer] available. Legal: No advance directives completed. Ethical issues impacting care: Patient does not appear capacitated for decision- making. . Important Contacts: : Tressa Canseco [phone] Sister: Lala Canseco . Prognosis: His prognosis is guarded. He still has significant deficits and is at risk for recurrent complications, infections and decline. At this time he has multisystem organ compromise to include cardiogenic shock status post [place] on admission with cardiac arrest x2, respiratory insufficiency, acute kidney injury on hemodialysis and hepatitis secondary to shock. It is the opinion of nephrology that his renal failure is caused by his cardiac failure equating to cardiorenal syndrome. He has left-sided weakness and appears aphasic at this time. Pending speech therapy evaluation. He was previously too unstable from a respiratory standpoint to undergo evaluation. He is at significant risk for continued complications and decline. . Code Status: Full Code Plan: PLAN: Legal decision maker: At this time the patient is not capacitated for decision-making and it is uncertain whether he statutes, his Tressa would be his proxy decision-maker. Goals: Aggressive at this time. CODE STATUS: FULL CODE SYMPTOMS: * Dysphasia: Speech therapy has evaluated and found him to have mild oropharyngeal dysphasia and has placed him on a pured diet with nectar thickened liquids. He has failed repeated attempts at thin liquids by the [facility]. He is seen to have difficulty controlling his oral secretions. Speech therapy continues to follow. * Encephalopathy: Intermittently following commands. He has a long history of alcoholism and may have sustained some hypoxic injury on admission. He also has a history of a previous stroke. It is uncertain how his neurological status will recover. Neurology following. Left upper extremity weakness, new onset. Speech inconsistent, sometimes garbled, similar to word salad, clear last night when agitated. MRI of the brain shows no CVA, concern for possible anoxic brain injury status post cardiac arrest x2 with CPR, resultant bilateral tension pneumothoraces and cardiogenic shock. Palliative care will continue to follow the patient during hospital course as condition evolves, to assist patient/decision-maker with understanding of their medical conditions, weighing benefits/burdens of treatment options, for clarification of goals of treatment. Additionally will assist with any symptoms of palliative concern. . Attestation Attestation: To help prompt me to consider important information that might be impacting today's encounter and assessment, information from prior notes written by myself or my colleagues may have been "brought forward" into today's note. My signature on this note, however, is an attestation that I personally performed the exam, history, and/or decision-making noted today, and, unless otherwise indicated, the interactions with patient, family, and staff as well as the review of records all occurred today. I also attest that the listed assessment and stated plan reflect my best clinical judgment today based on the combination of historical information, prior notes, and today's exam/ interactions. When time spent is documented, it refers only to time spent today by the signer, or if indicated, combined time spent today by collaborating physician/nurse practitioner. .
--- NOTE | 2018-02-06 16:03 | P.PNIM ---
Subjective Interval history: Encephalopathy waxing and waning. Patient is currently lethargic and not able to talk or follow commands. He is seen after dialysis. Physical Exam Vital signs: Last Vital Signs Temp 98.5 F 02/06/18 15:48 Pulse 105 H 02/06/18 15:48 Resp 20 02/06/18 15:48 BP 163/84 H 02/06/18 15:48 Pulse Ox 93 L 02/06/18 15:48 Intake & Output 02/04/18 02/05/18 02/06/18 02/07/18 06:59 06:59 06:59 06:59 Intake Total 2315 / 2315 1690 / 1690 1360 / 1360 105 / 105 Output Total 0 / 0 3500 / 3500 3000 / 3000 Balance 2315 / 2315 -1810 / -1810 1360 / 1360 -2895 / -2895 Weight 102.7 kg 100.8 kg 101.2 kg Narrative: GENERAL: Obese Mid aged W/M in No acute distress. Encephalopathic. CARDIOVASCULAR: Normal rate and regular rhythm without murmurs, gallops, or rubs. RESPIRATORY: Good respiratory efforts. Breath sounds equal and clear to auscultation bilaterally. GASTROINTESTINAL: Abdomen soft, non-tender, non-distended. Normal active bowel sounds MUSCULOSKELETAL: Extremities without cyanosis,but has 2+ edema. NEURO: Lethargic. Remains confused. PSYCH: Calm Urinary Catheter Management Indwelling Temp Sensing Catheter: Cath placed during this visit: yes, but has since been removed by the nurse Insertion date: 01/14/18 Insertion time: 22:00 Removal date: 01/21/18 Removal time: 18:00 Straight: Cath placed during this visit: no Results Labs CBC & Chem 7: 02/06/18 03:41 02/06/18 03:41 Labs: Microbiology 02/04/18 12:36 Blood - Line Aerobic Blood Culture - Preliminary No growth in 2 days 02/04/18 12:36 Blood - Line Anaerobic Blood Culture - Preliminary No growth in 2 days 02/04/18 12:30 Blood - Line Aerobic Blood Culture - Preliminary No growth in 2 days 02/04/18 12:30 Blood - Line Anaerobic Blood Culture - Preliminary No growth in 2 days Imaging Imaging: Impressions Chest X-Ray 02/06/18 00:00 CONCLUSION: There is mild bibasilar airspace opacity that has not significantly changed from the prior study. The appearance suggests either subsegmental atelectasis or consolidation. No pleural effusion is present. Assessment and Plan Plan 62-year-old white male who was admitted with cardiogenic shock and acute respiratory failure requiring CPR and epinephrine in the field, after being found down at home and being witnessed to possibly have undergone seizure-like activity. Intubation was attempted in the field but were unable to do so, patient was ultimately intubated in the hospital, started on pressors, placed in the ICU on mechanical ventilation. Found to have bilateral pneumothoraces with chest tubes placed, had developed some pneumoperitoneum which surgically deemed might have been a leak from his chest tubes as opposed to an acute surgical abdomen. Patient was started on antibiotics empirically for possible aspiration pneumonia but was ultimately discontinued off of them by infectious disease. Developed rhabdomyolysis with worsening acute renal failure which became sustained, with the patient now undergoing dialysis. Ultimately was discontinued off pressors, cardiology deferred heart cath due to renal failure. Patient had difficulty following commands after he was discontinued off of sedation and after extubation. Had an MRI done on 01/17 which showed no acute findings, only an older right parietal CVA. EEG was done which was unremarkable. 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 If he had anoxic brain injury No significant clinical improvement so far Neurology following Appeared to be making some mild improvement from a neurological standpoint. He passed a swallow evaluation. Appear to be more alert. Continue rehabilitation efforts with physical therapy/OT/speech Dysphasia: Related to encephalopathy. Unclear if he had anoxic injury from cardiogenic shock and respiratory failure. -Patient pulled out NG tube. -Speech therapy following and he passed a swallow evaluation. Modified diet per speech as tolerated. Possible seizure Continue Keppra EEG was negative Non-STEMI Elevated troponin Cardiology following Continue hydralazine Continue Coreg Continue aspirin Continue Lipitor Continue isosorbide Bilateral pneumothoraces pneumomediastinum acute respiratory failure chest tubes removed 01/28/2018 Continue oxygen supplementation Appreciate pulmonology following. Continue BiPAP as needed Pneumoperitoneum with right retroperitoneal gas/gas around the right kidney Likely secondary to bilateral pneumothoraces with no surgical intervention warranted per general surgery Continue Prednisone 20mg daily Positive blood cultures for 01/29/18 sample: Staph epidermidis -1 out of 4 bottles.? Contaminant. - Infectious disease reconsulted per nephrology. Repeat blood cultures so far negative. Hepatitis secondary to shock Hepatic steatosis Cirrhosis Possible alcohol abuse Continue thiamine Continue folic acid Continue beta-blockers End-stage renal disease Dialysis continue Nephrology following, looking less likely that his renal function will recover. follow renal function diabetes mellitus Diabetic diet Continue Levemir Insulin Sliding Scale hypothyroidism continue levothyroxine Normocytic anemia thrombocytopenia Persistent leukocytosis Status post PRBC transfusion. H&H stable. Follow-up H&H in a.m. DVT prophylaxis Heparin Discharge Planning: Patient will likely need long-term care. Significant encephalopathy and renal failure. No insurance benefit. Progress Note: Quality VTE Deep Vein Thrombosis/Pulmonary Embolism Present on Admission: Yes
--- NOTE | 2018-02-06 19:33 | P.PN ---
Subjective Interval history: he is awake but does not respond to commands. On 2 L o2. has edema of left arm and feet . Swallow eval in progress. Physical Exam Vital signs: Vital Signs 02/05/18 19:39 02/05/18 20:00 02/05/18 23:57 Temperature 100.4 F H 99.6 F Pulse Rate 95 H 87 81 Respiratory Rate 20 18 18 Blood Pressure 157/88 H 140/78 Pulse Oximetry 95 95 02/06/18 03:54 02/06/18 04:00 02/06/18 07:36 Temperature 99.8 F H 98.1 F Pulse Rate 78 71 85 Respiratory Rate 18 18 20 Blood Pressure 172/98 H 168/83 H Pulse Oximetry 96 93 L 02/06/18 12:57 02/06/18 13:02 02/06/18 15:48 Temperature 97.6 F 98.5 F Pulse Rate 99 H 97 H 105 H Respiratory Rate 18 18 20 Blood Pressure 166/96 H 163/84 H Pulse Oximetry 93 L 99 93 L Intake & Output 02/06/18 02/06/18 02/07/18 06:59 18:59 06:59 Intake Total 105 / 105 105 / 105 Output Total 3000 / 3000 Balance 105 / 105 -2895 / -2895 Weight 101.2 kg Intake: IV 105 / 105 105 / 105 Keppra Inj 500 MG In NS Inj 100 105 / 105 105 / 105 ML @ 400 mls/hr IV.SIG Q12H [facility] Rx#:[id number] Output: Hemodialysis Amount 3000 / 3000 Other: # Voids 1 # Urine Diapers 1 Date of Last Bowel Movement 02/05/18 02/05/18 Narrative: GENERAL: Obese Mid aged W/M in No acute distress. Encephalopathic. CARDIOVASCULAR: Normal rate and regular rhythm without murmurs, gallops, or rubs. RESPIRATORY: Breath sounds equal and clear to auscultation bilaterally. GASTROINTESTINAL: Abdomen soft, non-tender, non-distended. Normal active bowel sounds MUSCULOSKELETAL: Extremities without cyanosis, but has 2+ edema. NEURO: Lethargic. Remains confused.Able to squeeze lightly with hands to command. PSYCH: Calm - Urinary Catheter Management Indwelling Temp Sensing Catheter Cath placed during this visit: yes, but has since been removed by the nurse Reason for continuing: Decision to DC catheter Insertion date: 01/14/18 Insertion time: 22:00 Removal date: 01/21/18 Removal time: 18:00 Straight Cath placed during this visit: no Results - Labs CBC & Chem 7: 02/06/18 03:41 02/06/18 03:41 Laboratory Results - last 24 hr 02/05/18 02/06/18 02/06/18 23:11 03:41 03:41 WBC 9.0 RBC 2.38 L Hgb 7.3 L Hct 21.4 L MCV 89.7 MCH 30.8 MCHC 34.4 RDW 18.2 H Plt Count 171 MPV 8.9 Prelim Diff (Auto) Slide review pending Neut % (Auto) 87.0 H Lymph % (Auto) 4.7 L Bay % (Auto) 5.8 Eos % (Auto) 1.7 Baso % (Auto) 0.8 Neut # (Auto) 7.8 H Lymph # (Auto) 0.4 L Bay # (Auto) 0.5 Eos # (Auto) 0.1 Baso # (Auto) 0.1 WBC Differential Manual diff final Seg Neuts % (Manual) 87 H Band Neuts % (Manual) 2 Lymphocytes % (Manual) 1 L Monocytes % (Manual) 5 Eosinophils % (Manual) 1 Basophils % (Manual) 1 Metamyelocytes % (Man) 2 H Myelocytes % (Man) 1 H Abs Neuts (Manual) 8.3 H Differential Comment . Platelet Estimate Normal Platelet Morphology Normal Sodium 133 L Potassium 5.6 H D Chloride 96 L Carbon Dioxide 22.5 Anion Gap 15 BUN 110 H Creatinine 8.12 H Estimated GFR 7 L POC Glucose 140 H Random Glucose 103 Calcium 9.1 Phosphorus 8.9 H Albumin 2.6 L 02/06/18 02/06/18 02/06/18 06:02 13:08 16:35 WBC RBC Hgb Hct MCV MCH MCHC RDW Plt Count MPV Prelim Diff (Auto) Neut % (Auto) Lymph % (Auto) Bay % (Auto) Eos % (Auto) Baso % (Auto) Neut # (Auto) Lymph # (Auto) Bay # (Auto) Eos # (Auto) Baso # (Auto) WBC Differential Seg Neuts % (Manual) Band Neuts % (Manual) Lymphocytes % (Manual) Monocytes % (Manual) Eosinophils % (Manual) Basophils % (Manual) Metamyelocytes % (Man) Myelocytes % (Man) Abs Neuts (Manual) Differential Comment Platelet Estimate Platelet Morphology Sodium Potassium Chloride Carbon Dioxide Anion Gap BUN Creatinine Estimated GFR POC Glucose 128 H 104 153 H Random Glucose Calcium Phosphorus Albumin Microbiology 02/04/18 12:36 Blood - Line Aerobic Blood Culture - Preliminary No growth in 2 days 02/04/18 12:36 Blood - Line Anaerobic Blood Culture - Preliminary No growth in 2 days 02/04/18 12:30 Blood - Line Aerobic Blood Culture - Preliminary No growth in 2 days 02/04/18 12:30 Blood - Line Anaerobic Blood Culture - Preliminary No growth in 2 days - Imaging Impressions Chest X-Ray 02/06/18 00:00 CONCLUSION: There is mild bibasilar airspace opacity that has not significantly changed from the prior study. The appearance suggests either subsegmental atelectasis or consolidation. No pleural effusion is present. Assessment and Plan - Assessment (1) Encephalopathy acute Code(s): G93.40 - Encephalopathy, unspecified Status: Acute (2) Overdose Code(s): T50.901A - Poisoning by unspecified drugs, medicaments and biological substances, accidental (unintentional), initial encounter Status: Acute (3) Suicidal ideation Code(s): R45.851 - Suicidal ideations Status: Acute (4) Delirium tremens Code(s): F10.231 - Alcohol dependence with withdrawal delirium Status: Acute (5) Bilateral pneumothoraces Code(s): J93.9 - Pneumothorax, unspecified Status: Acute (6) Endotracheally intubated Code(s): Z97.8 - Presence of other specified devices Status: Acute (7) Elevated troponin Code(s): R74.8 - Abnormal levels of other serum enzymes Status: Acute (8) Acute renal failure Code(s): N17.9 - Acute kidney failure, unspecified Status: Acute (9) Alcohol abuse Code(s): F10.10 - Alcohol abuse, uncomplicated Status: Acute - Plan - Plan 1. Respiratory insufficiency, status post extubation on 01/25/2018. 2. s/p pneumothoraces on arrival, status post bilateral small bore chest tube placement on 01/15/2018. removed 01/28 3. Acute kidney injury. 4. Leukocytosis. 5. Anemia. 6. NSTEMI 7. Morbid obesity. 8. Hypertension. 9. Diabetes mellitus. 10. s/p seizures. Plan 1.Wean oxygen and use 2 L N/C PRN. 2.Bronchodilators-DuoNeb QID . 3.Aspiration precautions. 4.BIPAP nocturnally and p.r.n. for respiratory distress. 5. Prednisone 10 mg daily 6.Nutrition support. on tube feeds via an NG tube, Nepro @60 mL an hour. Patient might need PEG tube placement if continue to fail speech study. 7. PT Evaluation 8. Will Get Chest Xray in am. (2) Overdose Qualifiers: Encounter type: initial encounter Injury intent: undetermined intent Qualified Code(s): T50.904A - Poisoning by unspecified drugs, medicaments and biological substances, undetermined, initial encounter
[2018-02-06] MEDS: Insulin Detemir Inj 1,000 UNIT/10 ML Vial SQ SCH (21:02)
[2018-02-07] MEDS: Insulin NovoLIN Regular Correctional Sugar Inj SQ SCH ×5 (00:46→23:58)
[2018-02-07] MEDS: Oral Hygiene Kit OROPHARYNG SCH ×5 (00:47→23:59)
[2018-02-07] MEDS: Artificial Tears Opth Drops 15 ML Bottle EACH EYE SCH ×4 (00:47→23:59)
[2018-02-07] MEDS: Pantoprazole Inj 40 MG Vial IV.PUSH SCH ×2 (03:09→14:30)
[2018-02-07] MEDS: Dextrose 5%/NaCl 0.9% Inj 1,000 ML IV.CONT SCH ×2 (05:52→23:55)
[2018-02-07] MEDS: hydrALAZINE 25 MG Tablet PO SCH ×3 (06:02→21:13)
[2018-02-07] MEDS: Levothyroxine 88 MCG Tablet PO SCH (06:02)
--- NOTE | 2018-02-07 07:34 | P.PNNEU ---
Subjective Active Medications: Active Medications Acetaminophen (Tylenol) 650 mg PO UNSCH PRN PRN Reason: SEE LABEL COMMENTS Al Hydroxide/Mg Hydroxide (Milk Of Magngabriela Liq) 30 ml PO Q12H PRN PRN Reason: Mild Constipation Albuterol (Duoneb Neb (Prn)) 1 ampul NEB Q2HR NEB PRN PRN Reason: DYSPNEA Albuterol (Duoneb Neb (Tonja)) 1 ampul NEB Q8HR ALT NEB [facility] Last Admin: 02/07/18 03:43 Dose: 1 ampul Artificial Tears (Tears Naturale Opth Drops) 1 drop EACH EYE Q8H [facility] Last Admin: 02/07/18 00:47 Dose: 1 drop Aspirin (Aspirin Chew) 81 mg PO DAILY [facility] Last Admin: 02/06/18 14:30 Dose: 81 mg Atorvastatin Calcium (Lipitor) 20 mg PO DAILY [facility] Last Admin: 02/06/18 10:00 Dose: Not Given Bisacodyl (Dulcolax Supp) 10 mg RECTAL DAILY PRN PRN Reason: SEVERE CONSITIPATION Carvedilol (Coreg) 6.25 mg PO BID [facility] Last Admin: 02/06/18 21:02 Dose: 6.25 mg Chlorhexidine Gluconate (Peridex 0.12% Oral Kit) 15 ml OROPHARYNG BID@0800, 2000 [facility] Last Admin: 02/06/18 21:02 Dose: Not Given Clonidine HCl (Catapres) 0.1 mg PO UNSCH PRN PRN Reason: SEE LABEL COMMENTS Dextrose (D50w Vial) 50 ml IV.PUSH UNSCH PRN PRN Reason: PER HYPOGLYCEMIA PROTOCOL Last Admin: 02/03/18 09:12 Dose: 50 ml Diphenhydramine HCl (Benadryl) 25 mg PO UNSCH PRN PRN Reason: SEE LABEL COMMENTS Epoetin Jaleel (Epogen Inj) 8,000 unit DIALYSYS MoWeFr [facility] Last Admin: 02/06/18 16:40 Dose: Not Given Folic Acid (Folic Acid) 1 mg PO DAILY [facility] Last Admin: 02/06/18 10:00 Dose: Not Given Furosemide (Lasix Inj) 20 mg IV.PUSH ONCE PRN PRN Reason: Between Units of blood Last Admin: 02/01/18 23:34 Dose: 20 mg Gelatin (Gelfoam 12 Mm/7 Mm Topical) 1 foam TOPICAL PRN PRN PRN Reason: help stop bleeding from site Gentamicin Sulfate (Gentamicin Inj) 20 mg OTHER WITH DIALYSIS PRN PRN Reason: Dwell Gentamycin Lock Last Admin: 02/06/18 09:09 Dose: 20 mg Glucagon (Glucagon Inj) 1 mg OTHER PRN PRN PRN Reason: for Hypoglycemia Protocol Heparin Sodium (Porcine) (Heparin Inj) 0 units IV.FLUSH WITH DIALYSIS PRN PRN Reason: Flush each lumen Last Admin: 01/25/18 08:38 Dose: 2,000 units Heparin Sodium (Porcine) (Heparin Inj) 5,000 units SQ Q8HR [facility] Last Admin: 02/01/18 05:45 Dose: 5,000 units Heparin Sodium (Porcine) (Heparin Inj) 8,000 units OTHER WITH DIALYSIS PRN PRN Reason: for machine prime Heparin Sodium (Porcine) (Heparin Inj) 1,000 units OTHER WITH DIALYSIS PRN PRN Reason: Dwell Heparin to Fill Catheter Last Admin: 02/06/18 09:11 Dose: 1,000 units Hydralazine HCl (Apresoline Inj) 10 mg IV.PUSH Q1H PRN PRN Reason: sbp > 165 Last Admin: 01/27/18 00:30 Dose: 10 mg Hydralazine HCl (Apresoline) 100 mg PO Q8HR [facility] Last Admin: 02/07/18 06:02 Dose: 100 mg Levetiracetam 500 mg/ Sodium (Chloride) 105 mls @ 400 mls/hr IV.SIG Q12H [facility] Last Infusion: 02/07/18 03:38 Dose: Infused Sodium Chloride (Ns Inj) 1,000 mls @ 0 mls/hr OTHER .Q0M PRN PRN Reason: for prime and rinse back Last Infusion: 01/26/18 02:33 Dose: Infused Sodium Chloride (Ns Inj) 1,000 mls @ 200 mls/hr OTHER .Q5H PRN PRN Reason: for dialyzer flush PRN Albumin Human (Flexbumin 25% Inj) 100 mls @ 60 mls/hr IV.SIG WITH DIALYSIS PRN PRN Reason: hypotension / volume replace Sodium Chloride (Ns Inj) 1,000 mls @ 0 mls/hr OTHER .Q0M PRN PRN Reason: for prime and rinse back Sodium Chloride (Ns Inj) 1,000 mls @ 200 mls/hr OTHER .Q5H PRN PRN Reason: for dialyzer flush PRN Sodium Chloride (Ns Inj) 1,000 mls @ 0 mls/hr IV.CONT .Q0M PRN PRN Reason: hypotension / volume replace Dextrose/Sodium Chloride (D5w/Normal Saline Inj) 1,000 mls @ 60 mls/hr IV.CONT .[id number] [facility] Last Admin: 02/07/18 05:52 Dose: Not Given Insulin Detemir (Levemir Inj) 10 unit SQ HS [facility] Last Admin: 02/06/18 21:02 Dose: 10 unit Insulin Human Regular (Novolin R Correctional Sugar Inj) 0 units SQ Q6HR [facility]; Protocol Last Admin: 02/07/18 06:09 Dose: Not Given Isosorbide Dinitrate (Isordil) 20 mg PO Q8HR [facility] Last Admin: 02/07/18 06:02 Dose: 20 mg Labetalol HCl (Trandate Inj) 10 mg IV.PUSH Q4H PRN PRN Reason: HTN Last Admin: 01/27/18 01:22 Dose: 10 mg Lactulose (Lactulose Liq) 30 ml PO DAILY PRN PRN Reason: SEVERE CONSITIPATION Lactulose (Lactulose Liq) 30 ml PO DAILY [facility] Last Admin: 02/06/18 10:00 Dose: Not Given Levothyroxine Sodium (Synthroid) 88 mcg PO DAILY@0600 [facility] Last Admin: 02/07/18 06:02 Dose: 88 mcg Mannitol (Mannitol Inj) 12.5 gm IV.PUSH UNSCH PRN PRN Reason: hypotension / volume replace Miscellaneous Medication () 1 each OROPHARYNG 0000,0400,1200,1600 [facility] Last Admin: 02/07/18 03:39 Dose: Not Given Morphine Sulfate (Morphine Inj) 2 mg IV.PUSH Q2H PRN PRN Reason: PAIN SCALE 6 TO 10 Last Admin: 02/02/18 20:35 Dose: 2 mg Multivitamins (Theragran) 1 tab PO DAILY [facility] Last Admin: 02/06/18 14:31 Dose: 1 tab Nitroglycerin (Nitro-Bid 2% Oint) 2 inch TOPICAL Q6HR PRN PRN Reason: Sbp>165, Dbp>90 Nitroglycerin (Nitrostat Sl) 0.4 mg SL Q5M PRN PRN Reason: CHEST PAIN Ondansetron HCl (Zofran Inj) 4 mg IV.PUSH UNSCH PRN PRN Reason: NAUSEA OR VOMITING Pantoprazole Sodium (Protonix Inj) 40 mg IV.PUSH Q12H [facility] Last Admin: 02/07/18 03:09 Dose: 40 mg Prednisone (Deltasone) 10 mg PO DAILY [facility] Last Admin: 02/06/18 14:30 Dose: 10 mg Senna/Docusate Sodium (Ayleen-Colace) 1 tab PO BID [facility] Last Admin: 02/06/18 21:02 Dose: 1 tab Sennosides (Senokot) 17.2 mg PO Q12H PRN PRN Reason: Moderate Constipation Sodium Chloride (Ns Flush) 2 ml IV.FLUSH BID [facility] Last Admin: 02/06/18 21:02 Dose: 2 ml Sodium Chloride (Ns Flush) 2 ml IV.FLUSH PRN PRN PRN Reason: FLUSH AFTER USING IV ACCESS Last Admin: 01/16/18 09:33 Dose: 2 ml Sodium Chloride (Ns Flush) 0 ml IV.FLUSH PRN PRN PRN Reason: FLUSH AFTER USING IV ACCESS Sodium Chloride (Ns Flush) 5 ml IV.FLUSH PRN PRN PRN Reason: flush each lumen during HD Terbutaline Sulfate (Brethine Inj) 1 mg SQ UNSCH PRN PRN Reason: For Extravasation Thiamine HCl (Vitamin B1) 100 mg PO DAILY [facility] Last Admin: 02/06/18 14:31 Dose: 100 mg Allergies/Adverse Reactions: Allergies Allergy/AdvReac Type Severity Reaction Status Date / Time erythromycin base Allergy Severe Hives Verified 01/14/18 03:00 penicillin G Allergy Severe Hives Verified 01/14/18 03:00 Physical Exam Vital signs: Vital Signs 02/06/18 07:36 02/06/18 12:57 02/06/18 13:02 Temperature 98.1 F 97.6 F Pulse Rate 85 99 H 97 H Respiratory Rate 20 18 18 Blood Pressure 168/83 H 166/96 H Pulse Oximetry 93 L 93 L 99 02/06/18 15:48 02/06/18 19:54 02/06/18 19:55 Temperature 98.5 F Pulse Rate 105 H 105 H Respiratory Rate 20 20 Blood Pressure 163/84 H Pulse Oximetry 93 L 93 L 02/06/18 20:00 02/07/18 00:00 02/07/18 03:43 Temperature 100.1 F H 100.9 F H Pulse Rate 98 H 84 80 Respiratory Rate 18 18 9 L Blood Pressure 169/91 H 162/88 H Pulse Oximetry 94 L 97 02/07/18 04:00 Temperature 99.9 F H Pulse Rate 89 Respiratory Rate 18 Blood Pressure 160/80 H Pulse Oximetry 100 Intake & Output 02/06/18 02/07/18 02/07/18 18:59 06:59 18:59 Intake Total 105 / 105 105 / 105 Output Total 3000 / 3000 Balance -2895 / -2895 105 / 105 Weight 98.3 kg Intake: IV 105 / 105 105 / 105 Keppra Inj 500 MG In NS Inj 100 105 / 105 105 / 105 ML @ 400 mls/hr IV.SIG Q12H [facility] Rx#:[id number] Output: Hemodialysis Amount 3000 / 3000 Other: # Incontinent Voids 1 Date of Last Bowel Movement 02/05/18 02/05/18 Narrative: awakens sticks out tongue much better picks up arms to command some - Urinary Catheter Management Indwelling Temp Sensing Catheter Cath placed during this visit: yes, but has since been removed by the nurse Reason for continuing: Decision to DC catheter Insertion date: 01/14/18 Insertion time: 22:00 Removal date: 01/21/18 Removal time: 18:00 Straight Cath placed during this visit: no Objective Laboratory Results - last 24 hr 02/06/18 02/06/18 02/06/18 03:41 13:08 16:35 WBC Differential Manual diff final Seg Neuts % (Manual) 87 H Band Neuts % (Manual) 2 Lymphocytes % (Manual) 1 L Monocytes % (Manual) 5 Eosinophils % (Manual) 1 Basophils % (Manual) 1 Metamyelocytes % (Man) 2 H Myelocytes % (Man) 1 H Abs Neuts (Manual) 8.3 H Platelet Estimate Normal Platelet Morphology Normal POC Glucose 104 153 H 02/06/18 02/07/18 02/07/18 23:58 06:09 06:21 WBC Differential Seg Neuts % (Manual) Band Neuts % (Manual) Lymphocytes % (Manual) Monocytes % (Manual) Eosinophils % (Manual) Basophils % (Manual) Metamyelocytes % (Man) Myelocytes % (Man) Abs Neuts (Manual) Platelet Estimate Platelet Morphology POC Glucose 231 H 57 L 69 12/06/18 12/06/18 06:25 06:42 WBC Differential Seg Neuts % (Manual) Band Neuts % (Manual) Lymphocytes % (Manual) Monocytes % (Manual) Eosinophils % (Manual) Basophils % (Manual) Metamyelocytes % (Man) Myelocytes % (Man) Abs Neuts (Manual) Platelet Estimate Platelet Morphology POC Glucose 67 L 122 H Microbiology 02/04/18 12:36 Aerobic Blood Culture - Preliminary Blood - Line No growth in 2 days Anaerobic Blood Culture - Preliminary No growth in 2 days 02/04/18 12:30 Aerobic Blood Culture - Preliminary Blood - Line No growth in 2 days Anaerobic Blood Culture - Preliminary No growth in 2 days Review/Management - Review/Management Plan: imp seems to be interacting a little b12 nl fu us old r cva on asa sz focus could be there on keppra echo neg if any afib would anticoag /01/31/18 interacting more follow some commands us neg improved neuro -- 02/04/18 more alert doing a little better every day neurowise oob - 02/07/18 eeg neg doing much better prob mild anoxic damage
[2018-02-07 07:49] LABS: Hematocrit 22.6 % (39.0-51.0); Hemoglobin 7.6 gm/dL (13.0-17.0); Mean Corpuscular HGB Conc 33.8 % (32.0-36.0); Mean Corpuscular Hemoglobin 30.5 pg (27.0-34.0); Mean Corpuscular Volume 90.3 fL (80.0-100.0); Mean Platelet Volume 8.3 fL (7.0-11.0); Platelet Count 179 th/mm3 (150-450); White Blood Count 8.6 th/mm3 (4.0-11.0)
[2018-02-07 08:23] LABS: Calcium 9.4 mg/dL (8.5-10.1); Carbon Dioxide 26.1 meq/L (21.0-32.0); Potassium 4.8 meq/L (3.5-5.1)
[2018-02-07] MEDS: Folic Acid 1 MG Tablet PO SCH (09:50)
[2018-02-07] MEDS: predniSONE 10 MG Tablet PO SCH (09:50)
[2018-02-07] MEDS: Chlorhexidine 0.12% Oral Kit 15 ML UDC OROPHARYNG SCH ×2 (09:50→21:10)
[2018-02-07] MEDS: Senna/Docusate Sodium 8.6/50 MG Tablet PO SCH ×2 (09:50→21:10)
[2018-02-07] MEDS: Carvedilol 6.25 MG Tablet PO SCH ×2 (09:51→21:10)
--- NOTE | 2018-02-07 10:53 | P.PNIM ---
Subjective Interval history: Patient was able to tell me his name today. Speech is still very limited. Still very somnolent. He had an episode of hypoglycemia overnight. Physical Exam Vital signs: Last Vital Signs Temp 97.9 F 02/07/18 07:30 Pulse 87 02/07/18 08:00 Resp 20 02/07/18 07:30 BP 135/74 02/07/18 07:30 Pulse Ox 93 L 02/07/18 07:30 Intake & Output 02/05/18 02/06/18 02/07/18 02/08/18 06:59 06:59 06:59 06:59 Intake Total 1690 / 1690 1360 / 1360 210 / 210 Output Total 3500 / 3500 3000 / 3000 Balance -1810 / -1810 1360 / 1360 -2790 / -2790 Weight 100.8 kg 101.2 kg 98.3 kg Narrative: GENERAL: Obese Mid aged W/M in No acute distress. Encephalopathic. CARDIOVASCULAR: Normal rate and regular rhythm without murmurs, gallops, or rubs. RESPIRATORY: Good respiratory efforts. Breath sounds equal and clear to auscultation bilaterally. GASTROINTESTINAL: Abdomen soft, non-tender, non-distended. Normal active bowel sounds MUSCULOSKELETAL: Extremities without cyanosis,but has 2+ edema. NEURO: Remains confused. Follows some commands. Can only say 1 or 2 words at a time. PSYCH: Calm Urinary Catheter Management Indwelling Temp Sensing Catheter: Cath placed during this visit: yes, but has since been removed by the nurse Insertion date: 01/14/18 Insertion time: 22:00 Removal date: 01/21/18 Removal time: 18:00 Straight: Cath placed during this visit: no Results Labs CBC & Chem 7: 02/07/18 05:54 02/07/18 05:54 Labs: Microbiology 02/04/18 12:36 Blood - Line Aerobic Blood Culture - Preliminary No growth in 2 days 02/04/18 12:36 Blood - Line Anaerobic Blood Culture - Preliminary No growth in 2 days 02/04/18 12:30 Blood - Line Aerobic Blood Culture - Preliminary No growth in 2 days 02/04/18 12:30 Blood - Line Anaerobic Blood Culture - Preliminary No growth in 2 days Assessment and Plan Plan 62-year-old white male who was admitted with cardiogenic shock and acute respiratory failure requiring CPR and epinephrine in the field, after being found down at home and being witnessed to possibly have undergone seizure-like activity. Intubation was attempted in the field but were unable to do so, patient was ultimately intubated in the hospital, started on pressors, placed in the ICU on mechanical ventilation. Found to have bilateral pneumothoraces with chest tubes placed, had developed some pneumoperitoneum which surgically deemed might have been a leak from his chest tubes as opposed to an acute surgical abdomen. Patient was started on antibiotics empirically for possible aspiration pneumonia but was ultimately discontinued off of them by infectious disease. Developed rhabdomyolysis with worsening acute renal failure which became sustained, with the patient now undergoing dialysis. Ultimately was discontinued off pressors, cardiology deferred heart cath due to renal failure. Patient had difficulty following commands after he was discontinued off of sedation and after extubation. Had an MRI done on 01/17 which showed no acute findings, only an older right parietal CVA. EEG was done which was unremarkable. 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 If he had anoxic brain injury No significant clinical improvement so far Neurology following Appeared to be making some mild improvement from a neurological standpoint. He passed a swallow evaluation. Appear to be more alert. Continue rehabilitation efforts with physical therapy/OT/speech Dysphasia: Related to encephalopathy. Unclear if he had anoxic injury from cardiogenic shock and respiratory failure. -Patient pulled out NG tube. -Speech therapy following and he passed a swallow evaluation. Modified diet per speech as tolerated. Advance as tolerated. He is oral intake has been fluctuating. End-stage renal disease Dialysis continue Nephrology following, looking less likely that his renal function will recover. follow renal function Possible seizure Continue Keppra EEG was negative Non-STEMI Elevated troponin Cardiology following Continue hydralazine Continue Coreg Continue aspirin Continue Lipitor Continue isosorbide Bilateral pneumothoraces pneumomediastinum acute respiratory failure chest tubes removed 01/28/2018 Continue oxygen supplementation Appreciate pulmonology following. Continue BiPAP as needed Pneumoperitoneum with right retroperitoneal gas/gas around the right kidney Likely secondary to bilateral pneumothoraces with no surgical intervention warranted per general surgery Continue Prednisone 20mg daily Positive blood cultures for 01/29/18 sample: Staph epidermidis -1 out of 4 bottles.? Contaminant. - Infectious disease reconsulted per nephrology. Repeat blood cultures so far negative. Hepatitis secondary to shock Hepatic steatosis Cirrhosis Possible alcohol abuse Continue thiamine Continue folic acid Continue beta-blockers diabetes mellitus Diabetic diet Patient had a couple episodes of hypoglycemia. He is oral intake fluctuates and at times not adequate. We will discontinue Levemir Continue insulin Sliding Scale with Accu-Cheks. hypothyroidism continue levothyroxine Normocytic anemia thrombocytopenia Persistent leukocytosis Status post PRBC transfusion. H&H stable. Follow-up H&H in a.m. DVT prophylaxis Heparin Discharge Planning: Patient will likely need long-term care. Significant encephalopathy and new renal failure requiring HD. No insurance benefit. Progress Note: Quality VTE Deep Vein Thrombosis/Pulmonary Embolism Present on Admission: Yes
[2018-02-07] MEDS ORDERED: Vancomycin Inj 1,000 MG in Sodium Chlor 0.9% Inj 250 ML IV.SIG SCH (15:00)
--- NOTE | 2018-02-07 18:03 | P.PNNP ---
Subjective Interval history: Patient appears to be slightly more alert but not responding appropriately to questions. Physical Exam Vital signs: Vital Signs 02/06/18 19:54 02/06/18 19:55 02/06/18 20:00 Temperature 100.1 F H Pulse Rate 105 H 98 H Respiratory Rate 20 18 Blood Pressure 169/91 H Pulse Oximetry 93 L 94 L 02/07/18 00:00 02/07/18 03:43 02/07/18 04:00 Temperature 100.9 F H 99.9 F H Pulse Rate 84 80 89 Respiratory Rate 18 9 L 18 Blood Pressure 162/88 H 160/80 H Pulse Oximetry 97 100 02/07/18 07:30 02/07/18 08:00 02/07/18 11:15 Temperature 97.9 F 98.1 F Pulse Rate 92 H 87 80 Respiratory Rate 20 20 Blood Pressure 135/74 131/87 Pulse Oximetry 93 L 95 02/07/18 13:00 02/07/18 14:45 Temperature 98.0 F Pulse Rate 77 86 Respiratory Rate 18 20 Blood Pressure 160/93 H Pulse Oximetry 92 L 95 Intake & Output 02/06/18 02/07/18 02/07/18 18:59 06:59 18:59 Intake Total 105 / 105 105 / 105 105 / 105 Output Total 3000 / 3000 Balance -2895 / -2895 105 / 105 105 / 105 Weight 98.3 kg Intake: IV 105 / 105 105 / 105 105 / 105 Keppra Inj 500 MG In NS Inj 100 105 / 105 105 / 105 105 / 105 ML @ 400 mls/hr IV.SIG Q12H HENRY Rx#:[id number] Output: Hemodialysis Amount 3000 / 3000 Other: # Incontinent Voids 1 Date of Last Bowel Movement 02/05/18 02/05/18 02/05/18 Narrative: GENERAL: Obese Mid aged W/M in No acute distress. Encephalopathic. CARDIOVASCULAR: Normal rate and regular rhythm without murmurs, gallops, or rubs. RESPIRATORY: Good respiratory efforts. Breath sounds equal and clear to auscultation bilaterally. GASTROINTESTINAL: Abdomen soft, non-tender, non-distended. Normal active bowel sounds MUSCULOSKELETAL: Extremities without cyanosis, trace edema lower extremities. NEURO: Remains confused. - Urinary Catheter Management Indwelling Temp Sensing Catheter Cath placed during this visit: yes, but has since been removed by the nurse Reason for continuing: Decision to DC catheter Insertion date: 01/14/18 Insertion time: 22:00 Removal date: 01/21/18 Removal time: 18:00 Straight Cath placed during this visit: no Assessment and Plan - Assessment (1) Acute renal failure Code(s): N17.9 - Acute kidney failure, unspecified Status: Acute Plan: No sign of renal recovery at this point in time. There is still a chance of renal recovery, however, the longer the patient remains dialysis dependent the less likely this will occur. Medications should be adjusted for the patient's estimated GFR if clinically indicated. Avoid agents with significant potential for nephrotoxicity possible including NSAIDs for analgesia, iodine contrast agents. Gadolinium is contraindicated if the GFR is below 30. Repeat blood cultures are remaining negative. At this point in time I have requested conversion of Vas-Cath for hemodialysis PermCath as I do anticipate that the patient will be dialysis dependent long-term and possibly indefinitely. Patient appears to have encephalopathy with no significant improvement. His mental status does not improve prognosis likely very poor long-term. (2) Alcohol abuse Code(s): F10.10 - Alcohol abuse, uncomplicated Status: Acute (3) Alcohol withdrawal seizure with complication Code(s): F10.239 - Alcohol dependence with withdrawal, unspecified; R56.9 - Unspecified convulsions Status: Acute (4) Rhabdomyolysis Code(s): M62.82 - Rhabdomyolysis Status: Acute Plan: Resolved (5) Anemia Code(s): D64.9 - Anemia, unspecified Status: Acute Qualifiers: Anemia type: due to chronic kidney disease Plan: Continue Epo with HD.
--- NOTE | 2018-02-07 18:12 | P.PN ---
Subjective Interval history: Alert and trying to talk. Squeezed hands to command . Does not answer questions appropriately On O2 2 L Physical Exam Vital signs: Vital Signs 02/06/18 19:54 02/06/18 19:55 02/06/18 20:00 Temperature 100.1 F H Pulse Rate 105 H 98 H Respiratory Rate 20 18 Blood Pressure 169/91 H Pulse Oximetry 93 L 94 L 02/07/18 00:00 02/07/18 03:43 02/07/18 04:00 Temperature 100.9 F H 99.9 F H Pulse Rate 84 80 89 Respiratory Rate 18 9 L 18 Blood Pressure 162/88 H 160/80 H Pulse Oximetry 97 100 02/07/18 07:30 02/07/18 08:00 02/07/18 11:15 Temperature 97.9 F 98.1 F Pulse Rate 92 H 87 80 Respiratory Rate 20 20 Blood Pressure 135/74 131/87 Pulse Oximetry 93 L 95 02/07/18 13:00 02/07/18 14:45 Temperature 98.0 F Pulse Rate 77 86 Respiratory Rate 18 20 Blood Pressure 160/93 H Pulse Oximetry 92 L 95 Intake & Output 02/06/18 02/07/18 02/07/18 18:59 06:59 18:59 Intake Total 105 / 105 105 / 105 105 / 105 Output Total 3000 / 3000 Balance -2895 / -2895 105 / 105 105 / 105 Weight 98.3 kg Intake: IV 105 / 105 105 / 105 105 / 105 Keppra Inj 500 MG In NS Inj 100 105 / 105 105 / 105 105 / 105 ML @ 400 mls/hr IV.SIG Q12H [facility]RY Rx#:[id number] Output: Hemodialysis Amount 3000 / 3000 Other: # Incontinent Voids 1 Date of Last Bowel Movement 02/05/18 02/05/18 02/05/18 Narrative: GENERAL: Obese Mid aged W/M in No acute distress. CARDIOVASCULAR: Normal rate and regular rhythm without murmurs, gallops, or rubs. RESPIRATORY: Good respiratory efforts. Breath sounds equal and clear to auscultation bilaterally. GASTROINTESTINAL: Abdomen soft, non-tender, non-distended. Normal active bowel sounds MUSCULOSKELETAL: Extremities without cyanosis, trace edema lower extremities. NEURO: Remains confused. Has some weakness of all limbs. - Urinary Catheter Management Indwelling Temp Sensing Catheter Cath placed during this visit: yes, but has since been removed by the nurse Reason for continuing: Decision to DC catheter Insertion date: 01/14/18 Insertion time: 22:00 Removal date: 01/21/18 Removal time: 18:00 Straight Cath placed during this visit: no Results - Labs CBC & Chem 7: 02/07/18 05:54 02/07/18 05:54 Laboratory Results - last 24 hr 02/06/18 02/07/18 02/07/18 23:58 05:54 05:54 WBC 8.6 RBC 2.50 L Hgb 7.6 L Hct 22.6 L MCV 90.3 MCH 30.5 MCHC 33.8 RDW 18.0 H Plt Count 179 MPV 8.3 PT INR APTT Sodium 138 Potassium 4.8 D Chloride 100 Carbon Dioxide 26.1 Anion Gap 12 BUN 78 H Creatinine 7.22 H Estimated GFR 8 L POC Glucose 231 H Random Glucose 41 L* Calcium 9.4 02/07/18 02/07/18 02/07/18 06:09 06:21 06:25 WBC RBC Hgb Hct MCV MCH MCHC RDW Plt Count MPV PT INR APTT Sodium Potassium Chloride Carbon Dioxide Anion Gap BUN Creatinine Estimated GFR POC Glucose 57 L 69 67 L Random Glucose Calcium 02/07/18 02/07/18 06:42 13:09 WBC RBC Hgb Hct MCV MCH MCHC RDW Plt Count MPV PT 10.0 INR 1.0 APTT 25.0 Sodium Potassium Chloride Carbon Dioxide Anion Gap BUN Creatinine Estimated GFR POC Glucose 122 H Random Glucose Calcium Microbiology 02/04/18 12:36 Blood - Line Aerobic Blood Culture - Preliminary No growth in 3 days 02/04/18 12:36 Blood - Line Anaerobic Blood Culture - Preliminary No growth in 3 days 02/04/18 12:30 Blood - Line Aerobic Blood Culture - Preliminary No growth in 3 days 02/04/18 12:30 Blood - Line Anaerobic Blood Culture - Preliminary No growth in 3 days Assessment and Plan - Assessment (1) Encephalopathy acute Code(s): G93.40 - Encephalopathy, unspecified Status: Acute (2) Overdose Code(s): T50.901A - Poisoning by unspecified drugs, medicaments and biological substances, accidental (unintentional), initial encounter Status: Acute (3) Suicidal ideation Code(s): R45.851 - Suicidal ideations Status: Acute (4) Delirium tremens Code(s): F10.231 - Alcohol dependence with withdrawal delirium Status: Acute (5) Bilateral pneumothoraces Code(s): J93.9 - Pneumothorax, unspecified Status: Acute (6) Endotracheally intubated Code(s): Z97.8 - Presence of other specified devices Status: Acute (7) Elevated troponin Code(s): R74.8 - Abnormal levels of other serum enzymes Status: Acute (8) Acute renal failure Code(s): N17.9 - Acute kidney failure, unspecified Status: Acute (9) Alcohol abuse Code(s): F10.10 - Alcohol abuse, uncomplicated Status: Acute - Plan - Plan 1. Respiratory insufficiency, status post extubation on 01/25/2018. 2. s/p pneumothoraces on arrival, status post bilateral small bore chest tube placement on 01/15/2018. removed 01/28 3. Acute kidney injury. 4. Leukocytosis. 5. Anemia. 6. NSTEMI 7. Morbid obesity. 8. Hypertension. 9. Diabetes mellitus. 10. s/p seizures. Plan 1.Wean oxygen and use 2 L N/C PRN. 2.D/C -DuoNeb. 3.Aspiration precautions. 4.BIPAP nocturnally and p.r.n. for respiratory distress. 5. D/C Prednisone 6.Nutrition support. on tube feeds via an NG tube, Nepro @60 mL an hour. Patient might need PEG tube placement if continue to fail speech study. 7. PT Evaluation 8. Albuterol Inhaler , 2 puffs TID PRN (2) Overdose Qualifiers: Encounter type: initial encounter Injury intent: undetermined intent Qualified Code(s): T50.904A - Poisoning by unspecified drugs, medicaments and biological substances, undetermined, initial encounter
--- NOTE | 2018-02-07 20:49 | MG ---
cc: Rogelio Law MD, PhD TEST NUMBER: # [id number] TECHNIQUE: 17-channel EEG. DESCRIPTION: Feedback on rhythm reveals mild slowing in the theta range at roughly 6 Hz amplitude at 10-20 microvolts. No lateralizing features are identified and no epileptiform features are identified. There is some muscle artifact present. Photic stimulation results in a modest driving response. INTERPRETATION: Diffuse mild slowing consistent with mild encephalopathy versus lethargy. Rogelio Law MD, PhD YUMIKO/winnie , 07:49 PM , 07:52 PM
[2018-02-08] MEDS: Pantoprazole Inj 40 MG Vial IV.PUSH SCH ×2 (03:05→15:57)
[2018-02-08] MEDS: hydrALAZINE 25 MG Tablet PO SCH ×3 (06:07→21:52)
[2018-02-08] MEDS: Levothyroxine 88 MCG Tablet PO SCH (06:08)
[2018-02-08] MEDS: Insulin NovoLIN Regular Correctional Sugar Inj SQ SCH ×3 (06:08→18:00)
[2018-02-08] MEDS: Oral Hygiene Kit OROPHARYNG SCH ×3 (06:08→16:00)
[2018-02-08 07:06] LABS: Baso # (Auto) 0.1 th/mm3 (0.0-0.2); Baso % (Auto) 1.1 % (0.0-2.0); Eos # (Auto) 0.6 th/mm3 (0.0-0.4); Eos % (Auto) 7.9 % (0.0-4.0); Hematocrit 21.6 % (39.0-51.0); Hemoglobin 7.5 gm/dL (13.0-17.0); Lymph # (Auto) 0.6 th/mm3 (1.0-4.8); Lymph % (Auto) 8.5 % (9.0-44.0); Mean Corpuscular HGB Conc 34.6 % (32.0-36.0); Mean Corpuscular Volume 89.7 fL (80.0-100.0); Mean Platelet Volume 8.7 fL (7.0-11.0); Mono # (Auto) 0.7 th/mm3 (0.0-0.9); Mono % (Auto) 8.7 % (0.0-8.0); Neut # (Auto) 5.5 th/mm3 (1.8-7.7); Neut % (Auto) 73.8 % (16.0-70.0); Platelet Count 186 th/mm3 (150-450); Red Blood Count 2.41 mil/mm3 (4.50-5.90); Red Cell Distribution Width 17.6 % (11.6-17.2); White Blood Count 7.5 th/mm3 (4.0-11.0)
[2018-02-08 07:17] LABS: Albumin 2.4 g/dL (3.4-5.0); Calcium 8.8 mg/dL (8.5-10.1); Carbon Dioxide 23.8 meq/L (21.0-32.0)
[2018-02-08 07:38] LABS: % Iron Saturation 24.6 % (20-50)
[2018-02-08 07:40] LABS: Potassium 5.6 meq/L (3.5-5.1)
[2018-02-08] MEDS: Chlorhexidine 0.12% Oral Kit 15 ML UDC OROPHARYNG SCH ×2 (07:44→21:51)
[2018-02-08 08:32] LABS: Eosinophils 6 % (0-4); Lymphocytes 4 % (9-44); Monocytes 3 % (0-8); Myelocytes 1 % (0-0)
[2018-02-08 08:33] LABS: Ovalocytes 1+; Platelet Estimate Normal (Normal); Platelet Morphology Normal (Normal)
[2018-02-08] MEDS: Carvedilol 6.25 MG Tablet PO SCH ×2 (09:06→21:51)
[2018-02-08] MEDS: Folic Acid 1 MG Tablet PO SCH (09:06)
[2018-02-08] MEDS: Senna/Docusate Sodium 8.6/50 MG Tablet PO SCH ×2 (09:07→21:55)
[2018-02-08] MEDS: Artificial Tears Opth Drops 15 ML Bottle EACH EYE SCH ×2 (09:08→16:00)
[2018-02-08] MEDS ORDERED: *Heparin 10,000 UNITS/10 ML Vial Periprocedural ONLY ONE (09:23)
[2018-02-08] MEDS ORDERED: Lidocaine 1%/Epinephrine 1:100,000 Inj 20 ML Vial ONE (09:25)
[2018-02-08] MEDS ORDERED: fentaNYL Citrate Inj 100 MCG/2 ML Ampul ONE (10:21)
--- NOTE | 2018-02-08 11:46 | P.DIET ---
Nutritional Evaluation Type of nutrition evaluation: follow-up Nutrition consult regarding: Tube Feeding (TFing stopped) Nutrition screening: [facility] [place] (02/05 Calorie Counting) Screening comments: Calorie count completed: unfortunately only two meals were recorded Objective - Diagnosis Seizures/Respiratory Distress/Intubated - Objective % IBW: 150 Body Weight Used for Calculations: IBW (75.5 kg) Energy Needs - Lower Range (kCal/kg): 30 Energy Needs - Upper Range (kCal/kg): 35 Lower Limit kCal/kg (kCals): 2,264 Upper Limit kCal/kg (kCals): 2,643 Lower Limit Protein Factor (Grams per Kg): 1.2 Upper Limit Protein Factor (Grams per Kg): 1.5 Lower Protein Needs (Protein): 91 Upper Protein Needs (Protein): 113 Dietitian Reviewed in Medical Record: Current diet, Curent medications, Intake & Output, Labs, Medical history Diet Order: NPO Speech Therapy Recommendations: Yes (mechanical soft, nectar thickened liquids ( 02/08)) Objective Comments: PMH includes: Anxiety, CVA, DM, ETOH Abuse, HTN, Alcohol Abuse HgA1c 7.5 (01/31) Assessment Assessment: Pt's TF stopped 02/03 when ng-t was pulled out. ST recommends mechanical soft, with nectar thickened liquids but order is in for NPO. Pt is dialysis dependent. Recommend diabetic restriction be added to diet when advanced, for better glucose control. Calorie count did not provide adequate information to assess adequacy of po diet, however, each meal was less than 300 kcals. Recommend PEG be considered. Recommendations: 1. Diet texture per ST 2. Add 2200 ADA 3. Consider PEG Dietitian to Monitor: Lab values, Intake & Output, Weight change, PO Intake, Diet advancement, Swallow recommendations, Medical course
--- NOTE | 2018-02-08 12:07 | P.RAD ---
Post Procedure Progress Note - Pre Procedure Diagnosis (1) Acute renal failure - Post Procedure Diagnosis (1) Acute renal failure - Procedure Information Procedure Date: 02/08/18 Supervising Radiologist: Zac Monahan MD Anesthesia: Conscious Sedation - Plan of Activity Patient to Unit: Nursing Unit Patient Condition: Poor See PACS Report for procedural detail/treatment. CVAD Radiology Procedures right Internal Jugular Hemodialysis Catheter Tunneled Placement Device: dual lumen left Internal Jugular Hemodialysis Catheter Tunneled Removal Device: dual lumen
--- NOTE | 2018-02-08 12:16 | P.PN ---
Subjective Interval history: Went for IJ placement by IR and HD following Sleepy and tired No fever or chills No n/v/d/c. Physical Exam Vital signs: Vital Signs 02/07/18 13:00 02/07/18 14:45 02/07/18 20:00 Temperature 98.0 F 98.7 F Pulse Rate 77 86 85 Respiratory Rate 18 20 18 Blood Pressure 160/93 H 173/87 H Pulse Oximetry 92 L 95 95 02/08/18 00:00 02/08/18 00:32 02/08/18 04:00 Temperature 98.5 F 98.6 F Pulse Rate 78 78 Respiratory Rate 18 18 Blood Pressure 167/82 H 185/89 H Pulse Oximetry 97 93 L 95 02/08/18 04:23 02/08/18 07:59 02/08/18 08:00 Temperature 97.7 F Pulse Rate 77 Respiratory Rate 20 Blood Pressure 181/92 H Pulse Oximetry 94 L 95 97 Intake & Output 02/07/18 02/08/18 02/08/18 18:59 06:59 18:59 Intake Total 105 / 105 105 / 105 250 / 250 Balance 105 / 105 105 / 105 250 / 250 Weight 97 kg Intake: IV 105 / 105 105 / 105 250 / 250 Vancomycin Inj 1,000 MG In NS 250 / 250 Inj 250 ML @ 250 mls/hr IV.SIG FIELD ENGINEER [facility]RY Rx#:[id number] Keppra Inj 500 MG In NS Inj 100 105 / 105 105 / 105 ML @ 400 mls/hr IV.SIG Q12H [facility] Rx#:[id number] Other: # Voids 1 Date of Last Bowel Movement 02/05/18 02/05/18 02/05/18 # Incontinent Bowel Movements 1 Narrative: GENERAL: 62 yo male, obese, appears in no acute distress, appears sleepy. CARDIOVASCULAR: Normal rate and regular rhythm without murmurs, gallops, or rubs. RESPIRATORY: Breath sounds equal and clear to auscultation bilaterally. No wheezing. GASTROINTESTINAL: Abdomen soft, non-tender, non-distended. Normal active bowel sounds MUSCULOSKELETAL: Extremities without cyanosis, trace edema lower extremities. NEURO: Confused, appears tired. Generalized weakness of all limbs. - Urinary Catheter Management Indwelling Temp Sensing Catheter Cath placed during this visit: yes, but has since been removed by the nurse Reason for continuing: Decision to DC catheter Insertion date: 01/14/18 Insertion time: 22:00 Removal date: 01/21/18 Removal time: 18:00 Straight Cath placed during this visit: no Results - Labs CBC & Chem 7: 02/08/18 05:06 02/08/18 05:06 Laboratory Results - last 24 hr 02/07/18 02/07/18 02/08/18 13:09 23:55 05:06 WBC RBC Hgb Hct MCV MCH MCHC RDW Plt Count MPV Prelim Diff (Auto) Neut % (Auto) Lymph % (Auto) Dawes % (Auto) Eos % (Auto) Baso % (Auto) Neut # (Auto) Lymph # (Auto) Dawes # (Auto) Eos # (Auto) Baso # (Auto) WBC Differential Seg Neuts % (Manual) Band Neuts % (Manual) Lymphocytes % (Manual) Monocytes % (Manual) Eosinophils % (Manual) Basophils % (Manual) Myelocytes % (Man) Abs Neuts (Manual) Differential Comment Platelet Estimate Platelet Morphology Ovalocytes PT 10.0 INR 1.0 APTT 25.0 Sodium 133 L Potassium 5.6 H D Chloride 94 L Carbon Dioxide 23.8 Anion Gap 15 BUN 94 H Creatinine 9.00 H Estimated GFR 6 L POC Glucose 287 H Random Glucose 200 H D Calcium 8.8 Phosphorus 10.0 H Iron 53 L TIBC 216 L % Saturation 24.6 Albumin 2.4 L PTH Intact 02/08/18 02/08/18 02/08/18 05:06 05:06 06:14 WBC 7.5 RBC 2.41 L Hgb 7.5 L Hct 21.6 L MCV 89.7 MCH 31.0 MCHC 34.6 RDW 17.6 H Plt Count 186 MPV 8.7 Prelim Diff (Auto) Slide review pending Neut % (Auto) 73.8 H Lymph % (Auto) 8.5 L Dawes % (Auto) 8.7 H Eos % (Auto) 7.9 H Baso % (Auto) 1.1 Neut # (Auto) 5.5 Lymph # (Auto) 0.6 L Dawes # (Auto) 0.7 Eos # (Auto) 0.6 H Baso # (Auto) 0.1 WBC Differential Manual diff final Seg Neuts % (Manual) 83 H Band Neuts % (Manual) 2 Lymphocytes % (Manual) 4 L Monocytes % (Manual) 3 Eosinophils % (Manual) 6 H Basophils % (Manual) 1 Myelocytes % (Man) 1 H Abs Neuts (Manual) 6.5 Differential Comment . Platelet Estimate Normal Platelet Morphology Normal Ovalocytes 1+ H PT INR APTT Sodium Potassium Chloride Carbon Dioxide Anion Gap BUN Creatinine Estimated GFR POC Glucose 251 H Random Glucose Calcium Phosphorus Iron TIBC % Saturation Albumin PTH Intact 48.6 02/08/18 08:17 WBC RBC Hgb Hct MCV MCH MCHC RDW Plt Count MPV Prelim Diff (Auto) Neut % (Auto) Lymph % (Auto) Dawes % (Auto) Eos % (Auto) Baso % (Auto) Neut # (Auto) Lymph # (Auto) Dawes # (Auto) Eos # (Auto) Baso # (Auto) WBC Differential Seg Neuts % (Manual) Band Neuts % (Manual) Lymphocytes % (Manual) Monocytes % (Manual) Eosinophils % (Manual) Basophils % (Manual) Myelocytes % (Man) Abs Neuts (Manual) Differential Comment Platelet Estimate Platelet Morphology Ovalocytes PT INR APTT Sodium Potassium Chloride Carbon Dioxide Anion Gap BUN Creatinine Estimated GFR POC Glucose 200 H Random Glucose Calcium Phosphorus Iron TIBC % Saturation Albumin PTH Intact Microbiology 02/04/18 12:36 Blood - Line Aerobic Blood Culture - Preliminary No growth in 4 days 02/04/18 12:36 Blood - Line Anaerobic Blood Culture - Preliminary No growth in 4 days 02/04/18 12:30 Blood - Line Aerobic Blood Culture - Preliminary No growth in 4 days 02/04/18 12:30 Blood - Line Anaerobic Blood Culture - Preliminary No growth in 4 days - Procedures Left IJ HD tunneled cath placed 02/08/18 by IR Assessment and Plan - Plan 62-year-old white male who was admitted with cardiogenic shock and acute respiratory failure requiring CPR and epinephrine in the field, after being found down at home and being witnessed to possibly have undergone seizure-like activity. Intubation was attempted in the field but were unable to do so, patient was ultimately intubated in the hospital, started on pressors, placed in the ICU on mechanical ventilation. Found to have bilateral pneumothoraces with chest tubes placed, had developed some pneumoperitoneum which surgically deemed might have been a leak from his chest tubes as opposed to an acute surgical abdomen. Patient was started on antibiotics empirically for possible aspiration pneumonia but was ultimately discontinued off of them by infectious disease. Developed rhabdomyolysis with worsening acute renal failure which became sustained, with the patient now undergoing dialysis. Ultimately was discontinued off pressors, cardiology deferred heart cath due to renal failure. Patient had difficulty following commands after he was discontinued off of sedation and after extubation. Had an MRI done on 01/17 which showed no acute findings, only an older right parietal CVA. EEG was done which was unremarkable. 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 If he had anoxic brain injury No significant clinical improvement so far Neurology following Appeared to be making some mild improvement from a neurological standpoint. He passed a swallow evaluation. Appear to be more alert. Continue rehabilitation efforts with physical therapy/OT/speech Dysphasia: Related to encephalopathy. Unclear if he had anoxic injury from cardiogenic shock and respiratory failure. -Patient pulled out NG tube. -Speech therapy following and he passed a swallow evaluation. Modified diet per speech as tolerated. Advance as tolerated. He is oral intake has been fluctuating. End-stage renal disease Dialysis continue Nephrology following, looking less likely that his renal function will recover. follow renal function Possible seizure Continue Kera EEG was negative Non-STEMI Elevated troponin Cardiology following Continue hydralazine Continue Coreg Continue aspirin Continue Lipitor Continue isosorbide Bilateral pneumothoraces pneumomediastinum acute respiratory failure chest tubes removed 01/28/2018 Continue oxygen supplementation Appreciate pulmonology following. Continue BiPAP as needed Pneumoperitoneum with right retroperitoneal gas/gas around the right kidney Likely secondary to bilateral pneumothoraces with no surgical intervention warranted per general surgery Continue Prednisone 20mg daily Positive blood cultures for 01/29/18 sample: Staph epidermidis -1 out of 4 bottles.? Contaminant. - Infectious disease reconsulted per nephrology. Repeat blood cultures so far negative. Hepatitis secondary to shock Hepatic steatosis Cirrhosis Possible alcohol abuse Continue thiamine Continue folic acid Continue beta-blockers diabetes mellitus Diabetic diet Patient had a couple episodes of hypoglycemia. He is oral intake fluctuates and at times not adequate. We will discontinue Levemir Continue insulin Sliding Scale with Accu-Cheks. hypothyroidism continue levothyroxine Normocytic anemia thrombocytopenia Persistent leukocytosis Status post PRBC transfusion. H&H stable. Follow-up H&H in a.m. DVT prophylaxis Heparin DC plan needs terminal clerk Needs HD No insurance, expect difficult DC. CM also is ff CM consulted for DC plan . ID recommends follow up as OP with ID appointment to be made while patient is in house. Discussed with the CM, who found Dr Abrams ID, will review patient on Sunday and decide if will give follow up appointment
--- NOTE | 2018-02-08 14:09 | IR ---
EXAM DATE: 02/08/2018 11:39 AM EST AGE/SEX: 62 years / Male INDICATIONS: Patient presents with renal disease in need of dialysis catheter placement. CLINICAL DATA: This is the patient's initial encounter. Patient reports that signs and symptoms have been present for 1 month and indicates a pain score of Nonresponsive. MEDICAL/SURGICAL HISTORY: . CVA, HTN, ETOH, Anxiety, Diabetes. . None. COMPARISON: No prior exams available for comparison. FLUORO TIME (min): 0.4 IMAGE SERIES: 2 ACCESS SITE: Right internal jugular vein SEDATION TIME (min): 30 MEDICATION(S): 2 mg midazolam (Versed) IV 100 mcg fentanyl (Sublimaze) IV Vancomycin within 2 hrs of procedure, Ancef (or alternative) within 1 hr of procedure. DEVICE(S): 15 [place] double lumen Tarango II Plus Catheter . . PROCEDURE : 1. Fluoroscopic guided venipuncture. 2. Central line placement. The risks, benefits and alternatives to the procedure were explained and verbal and written consent w as obtained. The site was prepped in sterile fashion. Full sterile technique was used, including ca p, mask, sterile gloves and gown and a large sterile sheet. Hand hygiene and 2% chlorhexidine prep w as utilized per protocol for cutaneous antisepsis with appropriate dry time for site. The skin and subcutaneous tissues were infiltrated with local anesthetic solution. With fluoroscopic guidance a dermatotomy created and subcutaneous dissection was performed. A small incision was made. A micropuncture set was used to gain access and serial dilatation was performed to accept the lynette ter as prescribed above. The catheter was advanced into position under direct fluoroscopic visualiza tion, and was advanced with the tip at the junction of the superior vena cava and rt atrium. The cat heter was fixed in place with suture and a sterile dressing was applied. The patient tolerated the procedure well and there were no complications. CONCLUSION: 1. Uncomplicated line placement as above. Electronically signed by: Zac Monahan MD 02/08/2018 2:08 PM EST
--- NOTE | 2018-02-08 14:11 | IR ---
EXAM DATE: 02/08/2018 11:40 AM EST AGE/SEX: 62 years / Male INDICATIONS: Patient presents with history of renal disease and temporary dialysis catheter in need of removal for tunneled catheter placement. CLINICAL DATA: This is the patient's initial encounter. Patient reports that signs and symptoms have been present for 1 month and indicates a pain score of Nonresponsive. MEDICAL/SURGICAL HISTORY: . CVA, HTN, ETOH, Anxiety, Diabetes. . None. COMPARISON: No prior exams available for comparison. IMAGE SERIES: 0 ACCESS SITE: DEVICE(S): . . PROCEDURE: 1. Temporary central venous catheter removal. The prescribed catheter was removed intact and hemostasis was achieved with direct pressure. The sit e was dressed appropriately. The patient tolerated the procedure well. CONCLUSION: 1. Uncomplicated catheter removal. Electronically signed by: Zac Monahan MD 02/08/2018 2:09 PM EST
--- NOTE | 2018-02-08 15:24 | P.PNNP ---
Subjective Interval history: Seen post HD today. TIMOTEO Gamble placed this AM. Still no signs of renal recovery. <Fabiola Macdonald - Last Filed: 02/08/18 15:38> Physical Exam Vital signs: Vital Signs 02/07/18 20:00 02/08/18 00:00 02/08/18 00:32 Temperature 98.7 F 98.5 F Pulse Rate 85 78 Respiratory Rate 18 18 Blood Pressure 173/87 H 167/82 H Pulse Oximetry 95 97 93 L 02/08/18 04:00 02/08/18 04:23 02/08/18 07:59 Temperature 98.6 F Pulse Rate 78 Respiratory Rate 18 Blood Pressure 185/89 H Pulse Oximetry 95 94 L 95 02/08/18 08:00 Temperature 97.7 F Pulse Rate 77 Respiratory Rate 20 Blood Pressure 181/92 H Pulse Oximetry 97 Intake & Output 02/07/18 02/08/18 02/08/18 18:59 06:59 18:59 Intake Total 105 / 105 105 / 105 250 / 250 Output Total 4000 / 4000 Balance 105 / 105 105 / 105 -3750 / -3750 Weight 97 kg Intake: IV 105 / 105 105 / 105 250 / 250 Vancomycin Inj 1,000 MG In NS 250 / 250 Inj 250 ML @ 250 mls/hr IV.SIG JOB INTERVIEWER [facility] Rx#:[id number] Keppra Inj 500 MG In NS Inj 100 105 / 105 105 / 105 ML @ 400 mls/hr IV.SIG Q12H [facility] Rx#:[id number] Output: Hemodialysis Amount 4000 / 4000 Other: # Voids 1 Date of Last Bowel Movement 02/05/18 02/05/18 02/05/18 # Incontinent Bowel Movements 1 - Constitutional no acute distress - Routine HEENT Exam Head: Present: normocephalic - Routine Neck Exam Present: supple - Routine Respiratory Exam Present: CTA bilaterally - Routine Cardiovascular Exam Present: RRR, S1, S2 - Routine Abdominal Exam Present: soft - Routine Extremities Exam Present: edema (improving) - Routine Neurological Exam Present: alert - Urinary Catheter Management Indwelling Temp Sensing Catheter Cath placed during this visit: yes, but has since been removed by the nurse Reason for continuing: Decision to DC catheter Insertion date: 01/14/18 Insertion time: 22:00 Removal date: 01/21/18 Removal time: 18:00 Straight Cath placed during this visit: no <Fabiola Macdonald - Last Filed: 02/08/18 15:38> Vital signs: Vital Signs 02/10/18 11:51 02/10/18 12:29 02/10/18 16:14 Temperature 98.2 F 98.3 F Pulse Rate 81 85 Respiratory Rate 18 18 Blood Pressure 160/84 H 130/72 Pulse Oximetry 94 L 95 93 L 02/10/18 19:24 02/10/18 20:00 02/10/18 21:19 Temperature 99.6 F Pulse Rate 89 Respiratory Rate 18 Blood Pressure 150/100 H Pulse Oximetry 93 L 96 95 02/10/18 21:20 02/11/18 00:00 02/11/18 01:20 Temperature 99.1 F Pulse Rate 85 Respiratory Rate 18 Blood Pressure 119/68 Pulse Oximetry 95 96 96 02/11/18 04:00 02/11/18 07:00 02/11/18 07:59 Temperature 98.9 F 97.3 F L Pulse Rate 79 84 Respiratory Rate 18 20 Blood Pressure 159/83 H 152/83 H Pulse Oximetry 96 91 L 95 02/11/18 08:00 Temperature Pulse Rate 82 Respiratory Rate Blood Pressure Pulse Oximetry Intake & Output 02/10/18 02/11/18 02/11/18 18:59 06:59 18:59 Intake Total 980 / 980 221 / 221 Balance 980 / 980 221 / 221 Weight 96.7 kg Intake: Oral 980 / 980 221 / 221 Other: Other Intake Source Saline Solution # Voids 1 # Incontinent Voids 2 Date of Last Bowel Movement 02/10/18 02/10/18 02/11/18 # Incontinent Bowel Movements 2 1 - Urinary Catheter Management Indwelling Temp Sensing Catheter Cath placed during this visit: no Straight Cath placed during this visit: no <Kd Rudd - Last Filed: 02/11/18 10:34> Assessment and Plan - Assessment (1) Acute renal failure Code(s): N17.9 - Acute kidney failure, unspecified Status: Acute Plan: Remains dialysis dependent at this time. Remains to be seen if any recovery will be made. RIJ PermCath placed 02/08/18 Continue HD MWF schedule. Start calcium acetate as PO4 elevated. Medications should be adjusted for the patient's estimated GFR if clinically indicated. Avoid agents with significant potential for nephrotoxicity possible including NSAIDs for analgesia, iodine contrast agents. Gadolinium is contraindicated if the GFR is below 30. (2) Alcohol abuse Code(s): F10.10 - Alcohol abuse, uncomplicated Status: Acute (3) Alcohol withdrawal seizure with complication Code(s): F10.239 - Alcohol dependence with withdrawal, unspecified; R56.9 - Unspecified convulsions Status: Acute (4) Rhabdomyolysis Code(s): M62.82 - Rhabdomyolysis Status: Acute Plan: Resolved (5) Anemia Code(s): D64.9 - Anemia, unspecified Status: Acute Qualifiers: Anemia type: due to chronic kidney disease Plan: Increase Epo with HD. (6) Hypertension Code(s): I10 - Essential (primary) hypertension Status: Acute Plan: BP been quite elevated. Add Amlodipine <Fabiola Macdonald - Last Filed: 02/08/18 15:38> - Assessment (1) Acute renal failure Code(s): N17.9 - Acute kidney failure, unspecified Status: Acute (2) Alcohol abuse Code(s): F10.10 - Alcohol abuse, uncomplicated Status: Acute (3) Alcohol withdrawal seizure with complication Code(s): F10.239 - Alcohol dependence with withdrawal, unspecified; R56.9 - Unspecified convulsions Status: Acute (4) Rhabdomyolysis Code(s): M62.82 - Rhabdomyolysis Status: Acute (5) Anemia Code(s): D64.9 - Anemia, unspecified Status: Acute Qualifiers: Anemia type: due to chronic kidney disease (6) Hypertension Code(s): I10 - Essential (primary) hypertension Status: Acute - Attending Attestation The exam, history, and the medical decision-making described in the above note were completed with the assistance of the ISIDRA. I reviewed and agree with the findings presented. <Kd Rudd - Last Filed: 02/11/18 10:34>
[2018-02-08] MEDS: Calcium Acetate 667 MG Capsule PO SCH (18:04)
--- NOTE | 2018-02-08 18:21 | P.PN ---
Subjective Interval history: No new pulmonary problems. On O2 2L. Being dialyzed. has a Perma cath in place. Able to move feet more. Physical Exam Vital signs: Vital Signs 02/07/18 20:00 02/08/18 00:00 02/08/18 00:32 Temperature 98.7 F 98.5 F Pulse Rate 85 78 Respiratory Rate 18 18 Blood Pressure 173/87 H 167/82 H Pulse Oximetry 95 97 93 L 02/08/18 04:00 02/08/18 04:23 02/08/18 07:59 Temperature 98.6 F Pulse Rate 78 Respiratory Rate 18 Blood Pressure 185/89 H Pulse Oximetry 95 94 L 95 02/08/18 08:00 02/08/18 17:34 Temperature 97.7 F 97.3 F L Pulse Rate 77 95 H Respiratory Rate 20 16 Blood Pressure 181/92 H 142/87 H Pulse Oximetry 97 95 Intake & Output 02/07/18 02/08/18 02/08/18 18:59 06:59 18:59 Intake Total 105 / 105 105 / 105 355 / 355 Output Total 4000 / 4000 Balance 105 / 105 105 / 105 -3645 / -3645 Weight 97 kg Intake: IV 105 / 105 105 / 105 355 / 355 Vancomycin Inj 1,000 MG In NS 250 / 250 Inj 250 ML @ 250 mls/hr IV.SIG HEMATOLOGY SUPERVISOR [facility]RY Rx#:[id number] Keppra Inj 500 MG In NS Inj 100 105 / 105 105 / 105 105 / 105 ML @ 400 mls/hr IV.SIG Q12H [facility] Rx#:[id number] Output: Hemodialysis Amount 4000 / 4000 Other: # Voids 1 Date of Last Bowel Movement 02/05/18 02/05/18 02/05/18 # Incontinent Bowel Movements 1 Narrative: GENERAL: Mid aged W/M obese, appears in no acute distress. CARDIOVASCULAR: Normal rate and regular rhythm without murmurs, gallops, or rubs. RESPIRATORY: Breath sounds equal and clear to auscultation bilaterally. No wheezing. GASTROINTESTINAL: Abdomen soft, non-tender, non-distended. Normal active bowel sounds MUSCULOSKELETAL: Extremities without cyanosis, trace edema lower extremities. NEURO: Confused, but folows some commands .Generalized weakness of all limbs. - Urinary Catheter Management Indwelling Temp Sensing Catheter Cath placed during this visit: yes, but has since been removed by the nurse Reason for continuing: Decision to DC catheter Insertion date: 01/14/18 Insertion time: 22:00 Removal date: 01/21/18 Removal time: 18:00 Straight Cath placed during this visit: no Results - Labs CBC & Chem 7: 02/08/18 05:06 02/08/18 05:06 Laboratory Results - last 24 hr 02/07/18 02/08/18 02/08/18 23:55 05:06 05:06 WBC RBC Hgb Hct MCV MCH MCHC RDW Plt Count MPV Prelim Diff (Auto) Neut % (Auto) Lymph % (Auto) [place] % (Auto) Eos % (Auto) Baso % (Auto) Neut # (Auto) Lymph # (Auto) [place] # (Auto) Eos # (Auto) Baso # (Auto) WBC Differential Seg Neuts % (Manual) Band Neuts % (Manual) Lymphocytes % (Manual) Monocytes % (Manual) Eosinophils % (Manual) Basophils % (Manual) Myelocytes % (Man) Abs Neuts (Manual) Differential Comment Platelet Estimate Platelet Morphology Ovalocytes Sodium 133 L Potassium 5.6 H D Chloride 94 L Carbon Dioxide 23.8 Anion Gap 15 BUN 94 H Creatinine 9.00 H Estimated GFR 6 L POC Glucose 287 H Random Glucose 200 H D Calcium 8.8 Phosphorus 10.0 H Iron 53 L TIBC 216 L % Saturation 24.6 Albumin 2.4 L PTH Intact 48.6 02/08/18 02/08/18 02/08/18 05:06 06:14 08:17 WBC 7.5 RBC 2.41 L Hgb 7.5 L Hct 21.6 L MCV 89.7 MCH 31.0 MCHC 34.6 RDW 17.6 H Plt Count 186 MPV 8.7 Prelim Diff (Auto) Slide review pending Neut % (Auto) 73.8 H Lymph % (Auto) 8.5 L [place] % (Auto) 8.7 H Eos % (Auto) 7.9 H Baso % (Auto) 1.1 Neut # (Auto) 5.5 Lymph # (Auto) 0.6 L [place] # (Auto) 0.7 Eos # (Auto) 0.6 H Baso # (Auto) 0.1 WBC Differential Manual diff final Seg Neuts % (Manual) 83 H Band Neuts % (Manual) 2 Lymphocytes % (Manual) 4 L Monocytes % (Manual) 3 Eosinophils % (Manual) 6 H Basophils % (Manual) 1 Myelocytes % (Man) 1 H Abs Neuts (Manual) 6.5 Differential Comment . Platelet Estimate Normal Platelet Morphology Normal Ovalocytes 1+ H Sodium Potassium Chloride Carbon Dioxide Anion Gap BUN Creatinine Estimated GFR POC Glucose 251 H 200 H Random Glucose Calcium Phosphorus Iron TIBC % Saturation Albumin PTH Intact 02/08/18 17:25 WBC RBC Hgb Hct MCV MCH MCHC RDW Plt Count MPV Prelim Diff (Auto) Neut % (Auto) Lymph % (Auto) [place] % (Auto) Eos % (Auto) Baso % (Auto) Neut # (Auto) Lymph # (Auto) [place] # (Auto) Eos # (Auto) Baso # (Auto) WBC Differential Seg Neuts % (Manual) Band Neuts % (Manual) Lymphocytes % (Manual) Monocytes % (Manual) Eosinophils % (Manual) Basophils % (Manual) Myelocytes % (Man) Abs Neuts (Manual) Differential Comment Platelet Estimate Platelet Morphology Ovalocytes Sodium Potassium Chloride Carbon Dioxide Anion Gap BUN Creatinine Estimated GFR POC Glucose 149 H Random Glucose Calcium Phosphorus Iron TIBC % Saturation Albumin PTH Intact Microbiology 02/04/18 12:36 Blood - Line Aerobic Blood Culture - Preliminary No growth in 4 days 02/04/18 12:36 Blood - Line Anaerobic Blood Culture - Preliminary No growth in 4 days 02/04/18 12:30 Blood - Line Aerobic Blood Culture - Preliminary No growth in 4 days 02/04/18 12:30 Blood - Line Anaerobic Blood Culture - Preliminary No growth in 4 days - Imaging Impressions Catheter Placement 02/08/18 00:00 CONCLUSION: 1. Uncomplicated line placement as above. Tube Removal 02/08/18 00:00 CONCLUSION: 1. Uncomplicated catheter removal. - Procedures Left IJ HD tunneled cath placed 02/08/18 by IR Assessment and Plan - Assessment (1) Encephalopathy acute Code(s): G93.40 - Encephalopathy, unspecified Status: Acute (2) Overdose Code(s): T50.901A - Poisoning by unspecified drugs, medicaments and biological substances, accidental (unintentional), initial encounter Status: Acute (3) Suicidal ideation Code(s): R45.851 - Suicidal ideations Status: Acute (4) Delirium tremens Code(s): F10.231 - Alcohol dependence with withdrawal delirium Status: Acute (5) Bilateral pneumothoraces Code(s): J93.9 - Pneumothorax, unspecified Status: Acute (6) Endotracheally intubated Code(s): Z97.8 - Presence of other specified devices Status: Acute (7) Elevated troponin Code(s): R74.8 - Abnormal levels of other serum enzymes Status: Acute (8) Acute renal failure Code(s): N17.9 - Acute kidney failure, unspecified Status: Acute (9) Alcohol abuse Code(s): F10.10 - Alcohol abuse, uncomplicated Status: Acute - Plan - Plan 1. Respiratory insufficiency, status post extubation on 01/25/2018. 2. s/p pneumothoraces on arrival, status post bilateral small bore chest tube placement on 01/15/2018. removed 01/28 3. Acute kidney injury.On Dialysis 4. Leukocytosis. 5. Anemia. 6. NSTEMI 7. Morbid obesity. 8. Hypertension. 9. Diabetes mellitus. 10. s/p seizures. Plan 1.Wean oxygen and use 2 L N/C PRN. 2.labs in am. 3. Aspiration precautions. 4. D/C BIPAP , cannot tolerate. 5. Dialysis as planned. 6.Nutrition support. on tube feeds via an NG tube, Nepro @60 mL an hour. 7. PT Evaluation 8. Albuterol Inhaler , 2 puffs TID PRN (2) Overdose Qualifiers: Encounter type: initial encounter Injury intent: undetermined intent Qualified Code(s): T50.904A - Poisoning by unspecified drugs, medicaments and biological substances, undetermined, initial encounter
[2018-02-08] MEDS: Dextrose 5%/NaCl 0.9% Inj 1,000 ML IV.CONT SCH (19:16)
[2018-02-09] MEDS: Artificial Tears Opth Drops 15 ML Bottle EACH EYE SCH ×3 (01:35→17:39)
[2018-02-09] MEDS: Insulin NovoLIN Regular Correctional Sugar Inj SQ SCH ×2 (01:35→05:51)
[2018-02-09] MEDS: Oral Hygiene Kit OROPHARYNG SCH ×4 (01:35→17:39)
[2018-02-09] MEDS: Pantoprazole Inj 40 MG Vial IV.PUSH SCH ×2 (01:37→14:25)
[2018-02-09] MEDS: hydrALAZINE 25 MG Tablet PO SCH ×3 (05:12→21:26)
[2018-02-09] MEDS: Levothyroxine 88 MCG Tablet PO SCH (05:13)
[2018-02-09 06:14] LABS: Baso # (Auto) 0.1 th/mm3 (0.0-0.2); Baso % (Auto) 1.2 % (0.0-2.0); Eos # (Auto) 0.5 th/mm3 (0.0-0.4); Eos % (Auto) 6.4 % (0.0-4.0); Hematocrit 22.8 % (39.0-51.0); Lymph # (Auto) 0.8 th/mm3 (1.0-4.8); Lymph % (Auto) 9.8 % (9.0-44.0); Mean Corpuscular Hemoglobin 31.1 pg (27.0-34.0); Mean Corpuscular Volume 88.8 fL (80.0-100.0); Mean Platelet Volume 8.1 fL (7.0-11.0); Mono # (Auto) 0.7 th/mm3 (0.0-0.9); Mono % (Auto) 8.8 % (0.0-8.0); Neut # (Auto) 6.1 th/mm3 (1.8-7.7); Neut % (Auto) 73.8 % (16.0-70.0); Platelet Count 192 th/mm3 (150-450); Red Blood Count 2.56 mil/mm3 (4.50-5.90); Red Cell Distribution Width 18.2 % (11.6-17.2); White Blood Count 8.2 th/mm3 (4.0-11.0)
[2018-02-09 06:40] LABS: Albumin 2.6 g/dL (3.4-5.0); Calcium 9.7 mg/dL (8.5-10.1); Carbon Dioxide 28.2 meq/L (21.0-32.0); Phosphorus 7.2 mg/dL (2.5-4.9); Potassium 4.5 meq/L (3.5-5.1)
[2018-02-09] MEDS: Calcium Acetate 667 MG Capsule PO SCH ×3 (10:13→17:39)
[2018-02-09] MEDS: Carvedilol 6.25 MG Tablet PO SCH ×2 (10:13→21:27)
[2018-02-09] MEDS: amLODIPine 5 MG Tablet PO SCH (10:13)
[2018-02-09] MEDS: Senna/Docusate Sodium 8.6/50 MG Tablet PO SCH ×2 (10:13→21:27)
[2018-02-09] MEDS: Folic Acid 1 MG Tablet PO SCH (10:14)
[2018-02-09] MEDS: Chlorhexidine 0.12% Oral Kit 15 ML UDC OROPHARYNG SCH ×2 (10:15→21:27)
[2018-02-09] MEDS: Dextrose 5%/NaCl 0.9% Inj 1,000 ML IV.CONT SCH (10:15)
[2018-02-09] MEDS ORDERED: Dextrose 50% in Water 50 ML Vial IV.PUSH PRN (10:16)
--- NOTE | 2018-02-09 10:19 | P.PN ---
Subjective Interval history: Follow-up for possible anoxic brain injury, hepatic encephalopathy, end-stage renal disease. Patient is currently resting in bed. He is able to move all his 4 extremities. He speaks but difficult to understand. Remains afebrile. Physical Exam Vital signs: Vital Signs 02/08/18 16:30 02/08/18 17:34 02/08/18 20:18 Temperature 97.3 F L 98.9 F Pulse Rate 85 95 H 99 H Respiratory Rate 16 18 Blood Pressure 142/87 H 167/98 H Pulse Oximetry 95 95 02/09/18 00:00 02/09/18 01:13 02/09/18 01:14 Temperature Pulse Rate 102 H Respiratory Rate 18 Blood Pressure 158/84 H Pulse Oximetry 92 L 93 L 94 L 02/09/18 04:00 02/09/18 08:00 Temperature 99.6 F 99.7 F H Pulse Rate 93 H 92 H Respiratory Rate 18 20 Blood Pressure 161/89 H 150/75 H Pulse Oximetry 97 95 Intake & Output 02/08/18 02/09/18 02/09/18 18:59 06:59 18:59 Intake Total 945 / 945 105 / 105 Output Total 8000 / 8000 Balance -7055 / -7055 105 / 105 Weight 100.9 kg Intake: IV 355 / 355 105 / 105 Vancomycin Inj 1,000 MG In NS 250 / 250 Inj 250 ML @ 250 mls/hr IV.SIG TRAFFIC SAFETY ADMINISTRATOR [facility] Rx#:[id number] Keppra Inj 500 MG In NS Inj 100 105 / 105 105 / 105 ML @ 400 mls/hr IV.SIG Q12H [facility] Rx#:[id number] Oral 240 / 240 Other 350 / 350 Output: Urine 0 / 0 Hemodialysis Amount 8000 / 8000 Other: Other Intake Source Saline Solution # Incontinent Voids 2 Date of Last Bowel Movement 02/05/18 02/05/18 Narrative: GENERAL: Alert, NAD. Speech is difficult to understand. SKIN: Warm and dry. HEAD: Normocephalic. EYES: No scleral icterus. No injection or drainage. NECK: Supple, trachea midline. No JVD or lymphadenopathy. CARDIOVASCULAR: Regular rate and rhythm without murmurs, gallops, or rubs. RESPIRATORY: Breath sounds equal bilaterally. No accessory muscle use. GASTROINTESTINAL: Abdomen soft, non-tender, nondistended. MUSCULOSKELETAL: No cyanosis, or edema. Able to move all extremities. BACK: Nontender without obvious deformity. No CVA tenderness. - Urinary Catheter Management Indwelling Temp Sensing Catheter Cath placed during this visit: yes, but has since been removed by the nurse Reason for continuing: Decision to DC catheter Insertion date: 01/14/18 Insertion time: 22:00 Removal date: 01/21/18 Removal time: 18:00 Straight Cath placed during this visit: no Results - Labs CBC & Chem 7: 02/09/18 04:23 02/09/18 04:23 Laboratory Results - last 24 hr 02/08/18 02/09/18 02/09/18 17:25 01:27 04:23 WBC 8.2 RBC 2.56 L Hgb 8.0 L Hct 22.8 L MCV 88.8 MCH 31.1 MCHC 35.0 RDW 18.2 H Plt Count 192 MPV 8.1 Prelim Diff (Auto) Slide review pending Neut % (Auto) 73.8 H Lymph % (Auto) 9.8 [place] % (Auto) 8.8 H Eos % (Auto) 6.4 H Baso % (Auto) 1.2 Neut # (Auto) 6.1 Lymph # (Auto) 0.8 L [place] # (Auto) 0.7 Eos # (Auto) 0.5 H Baso # (Auto) 0.1 Differential Comment . Sodium Potassium Chloride Carbon Dioxide Anion Gap BUN Creatinine Estimated GFR POC Glucose 149 H 193 H Random Glucose Calcium Phosphorus Albumin 02/09/18 02/09/18 04:23 05:24 WBC RBC Hgb Hct MCV MCH MCHC RDW Plt Count MPV Prelim Diff (Auto) Neut % (Auto) Lymph % (Auto) [place] % (Auto) Eos % (Auto) Baso % (Auto) Neut # (Auto) Lymph # (Auto) [place] # (Auto) Eos # (Auto) Baso # (Auto) Differential Comment Sodium 133 L Potassium 4.5 D Chloride 95 L Carbon Dioxide 28.2 Anion Gap 10 BUN 58 H Creatinine 6.84 H Estimated GFR 8 L POC Glucose 156 H Random Glucose 124 H Calcium 9.7 D Phosphorus 7.2 H D Albumin 2.6 L Microbiology 02/04/18 12:36 Blood - Line Aerobic Blood Culture - Preliminary No growth in 4 days 02/04/18 12:36 Blood - Line Anaerobic Blood Culture - Preliminary No growth in 4 days 02/04/18 12:30 Blood - Line Aerobic Blood Culture - Preliminary No growth in 4 days 02/04/18 12:30 Blood - Line Anaerobic Blood Culture - Preliminary No growth in 4 days - Imaging Impressions Catheter Placement 02/08/18 00:00 CONCLUSION: 1. Uncomplicated line placement as above. Tube Removal 02/08/18 00:00 CONCLUSION: 1. Uncomplicated catheter removal. - Procedures Left IJ HD tunneled cath placed 02/08/18 by IR Assessment and Plan - Plan 62-year-old white male who was admitted with cardiogenic shock and acute respiratory failure requiring CPR and epinephrine in the field, after being found down at home and being witnessed to possibly have undergone seizure-like activity. Intubation was attempted in the field but were unable to do so, patient was ultimately intubated in the hospital, started on pressors, placed in the ICU on mechanical ventilation. Found to have bilateral pneumothoraces with chest tubes placed, had developed some pneumoperitoneum which surgically deemed might have been a leak from his chest tubes as opposed to an acute surgical abdomen. Patient was started on antibiotics empirically for possible aspiration pneumonia but was ultimately discontinued off of them by infectious disease. Developed rhabdomyolysis with worsening acute renal failure which became sustained, with the patient now undergoing dialysis. Ultimately was discontinued off pressors, cardiology deferred heart cath due to renal failure. Patient had difficulty following commands after he was discontinued off of sedation and after extubation. Had an MRI done on 01/17 which showed no acute findings, only an older right parietal CVA. EEG was done which was unremarkable. 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 Appeared to be making some mild improvement from a neurological standpoint. He passed a swallow evaluation. Appear to be more alert. Continue rehabilitation efforts with physical therapy/OT/speech Dysphasia: Related to encephalopathy. Probable anoxic injury from cardiogenic shock and respiratory failure. -Patient pulled out NG tube. -Speech therapy following and he passed a swallow evaluation. Modified diet per speech as tolerated. cont Renal/diabetic diet. End-stage renal disease Cont MWF hemodialysis. Nephrology following, looking less likely that his renal function will recover. Possible seizure Continue Keppra IV. We can likely transition to Keppra 500mg PO BID. EEG was negative Non-STEMI Hypertension Troponins elevated to 0.52, 1.89 and 2.37. Cardiology recommended conservative medical management. Continue aspirin, carvedilol 6.25 twice daily, isosorbide dinitrate, atorvastatin 20 mg Continue amlodipine 5 mg daily Bilateral pneumothoraces pneumomediastinum acute respiratory failure chest tubes removed 01/28/2018 Continue oxygen supplementation Appreciate pulmonology following. Continue BiPAP as needed Pneumoperitoneum with right retroperitoneal gas/gas around the right kidney Likely secondary to bilateral pneumothoraces with no surgical intervention warranted per general surgery Hepatitis secondary to shock Hepatic steatosis Cirrhosis Possible alcohol abuse Continue thiamine Continue folic acid Continue beta-blockers diabetes mellitus Diabetic diet Will switch from regular insulin to Aspart Sliding scale insulin. hypothyroidism continue levothyroxine Normocytic anemia Status post PRBC transfusion. H&H stable around 8. Full code. Heparin SQ.
[2018-02-09 10:37] LABS: Eosinophils 5 % (0-4); Lymphocytes 12 % (9-44); Monocytes 3 % (0-8)
[2018-02-09 10:39] LABS: Ovalocytes 1+; Platelet Estimate Normal (Normal); Platelet Morphology Normal (Normal); Polychromasia 2.2 % (0.0-1.9); Tear Drop Cells 1+
[2018-02-09] MEDS: Insulin NovoLOG Aspart Correctional Sugar Inj SQ SCH ×2 (14:24→18:28)
[2018-02-09] MEDS ORDERED: Heparin - SQ 10,000 UNITS/ML Vial SQ SCH (21:00)
[2018-02-09] MEDS: levETIRAcetam 500 MG Tablet PO SCH (21:27)
[2018-02-10] MEDS: Insulin NovoLOG Aspart Correctional Sugar Inj SQ SCH ×5 (01:29→21:43)
[2018-02-10] MEDS: Oral Hygiene Kit OROPHARYNG SCH ×4 (01:30→16:35)
[2018-02-10] MEDS: Artificial Tears Opth Drops 15 ML Bottle EACH EYE SCH ×3 (01:30→16:35)
[2018-02-10] MEDS: Dextrose 5%/NaCl 0.9% Inj 1,000 ML IV.CONT SCH ×2 (01:30→16:35)
[2018-02-10] MEDS: Pantoprazole Inj 40 MG Vial IV.PUSH SCH ×2 (02:30→13:50)
[2018-02-10] MEDS: hydrALAZINE 25 MG Tablet PO SCH ×3 (05:40→21:29)
[2018-02-10] MEDS: Levothyroxine 88 MCG Tablet PO SCH (05:40)
--- NOTE | 2018-02-10 08:47 | P.PN ---
Subjective Interval history: Follow-up for possible anoxic brain injury, hepatic encephalopathy, end-stage renal disease. Patient is resting in bed. He says a few words but not very communicative. He denies any acute concerns. Afebrile. Physical Exam Vital signs: Vital Signs 02/09/18 12:00 02/09/18 14:00 02/09/18 15:14 Temperature 97.5 F L 98.0 F Pulse Rate 86 86 Respiratory Rate 20 20 Blood Pressure 114/71 139/83 Pulse Oximetry 93 L 93 L 93 L 02/09/18 20:00 02/10/18 00:00 02/10/18 04:00 Temperature 98.2 F 99.2 F 99.4 F Pulse Rate 81 78 77 Respiratory Rate 18 18 18 Blood Pressure 163/81 H 117/81 152/81 H Pulse Oximetry 95 95 96 02/10/18 07:55 Temperature 97.8 F Pulse Rate 79 Respiratory Rate 18 Blood Pressure 155/82 H Pulse Oximetry 95 Intake & Output 02/09/18 02/10/18 02/10/18 18:59 06:59 18:59 Intake Total 700 / 700 200 / 200 Balance 700 / 700 200 / 200 Weight 98.2 kg Intake: Oral 700 / 700 200 / 200 Other: # Incontinent Voids 1 Date of Last Bowel Movement 02/09/18 02/09/18 # Incontinent Bowel Movements 1 Narrative: GENERAL: Alert, NAD. Speech is difficult to understand. SKIN: Warm and dry. HEAD: Normocephalic. EYES: No scleral icterus. No injection or drainage. NECK: Supple, trachea midline. No JVD or lymphadenopathy. CARDIOVASCULAR: Regular rate and rhythm without murmurs, gallops, or rubs. RESPIRATORY: Breath sounds equal bilaterally. No accessory muscle use. GASTROINTESTINAL: Abdomen soft, non-tender, nondistended. MUSCULOSKELETAL: No cyanosis, or edema. Able to move all extremities. BACK: Nontender without obvious deformity. No CVA tenderness. - Urinary Catheter Management Indwelling Temp Sensing Catheter Cath placed during this visit: yes, but has since been removed by the nurse Reason for continuing: Decision to DC catheter Insertion date: 01/14/18 Insertion time: 22:00 Removal date: 01/21/18 Removal time: 18:00 Straight Cath placed during this visit: no Results - Labs CBC & Chem 7: 02/09/18 04:23 02/09/18 04:23 Laboratory Results - last 24 hr 02/09/18 02/09/18 02/09/18 04:23 12:16 17:47 WBC Differential Manual diff final Seg Neuts % (Manual) 74 H Band Neuts % (Manual) 5 Lymphocytes % (Manual) 12 Monocytes % (Manual) 3 Eosinophils % (Manual) 5 H Basophils % (Manual) 1 Abs Neuts (Manual) 6.5 Platelet Estimate Normal Platelet Morphology Normal Polychromasia 2.2 H Tear Drop Cells 1+ H Ovalocytes 1+ H POC Glucose 171 H 156 H 02/09/18 02/10/18 21:23 07:20 WBC Differential Seg Neuts % (Manual) Band Neuts % (Manual) Lymphocytes % (Manual) Monocytes % (Manual) Eosinophils % (Manual) Basophils % (Manual) Abs Neuts (Manual) Platelet Estimate Platelet Morphology Polychromasia Tear Drop Cells Ovalocytes POC Glucose 169 H 180 H Microbiology 02/04/18 12:36 Blood - Line Aerobic Blood Culture - Final No growth in 5 days 02/04/18 12:36 Blood - Line Anaerobic Blood Culture - Final No growth in 5 days 02/04/18 12:30 Blood - Line Aerobic Blood Culture - Final No growth in 5 days 02/04/18 12:30 Blood - Line Anaerobic Blood Culture - Final No growth in 5 days - Procedures Left IJ HD tunneled cath placed 02/08/18 by IR Assessment and Plan - Plan 62-year-old white male who was admitted with cardiogenic shock and acute respiratory failure requiring CPR and epinephrine in the field, after being found down at home and being witnessed to possibly have undergone seizure-like activity. Intubation was attempted in the field but were unable to do so, patient was ultimately intubated in the hospital, started on pressors, placed in the ICU on mechanical ventilation. Found to have bilateral pneumothoraces with chest tubes placed, had developed some pneumoperitoneum which surgically deemed might have been a leak from his chest tubes as opposed to an acute surgical abdomen. Patient was started on antibiotics empirically for possible aspiration pneumonia but was ultimately discontinued off of them by infectious disease. Developed rhabdomyolysis with worsening acute renal failure which became sustained, with the patient now undergoing dialysis. Ultimately was discontinued off pressors, cardiology deferred heart cath due to renal failure. Patient had difficulty following commands after he was discontinued off of sedation and after extubation. Had an MRI done on 01/17 which showed no acute findings, only an older right parietal CVA. EEG was done which was unremarkable. 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 Appeared to be making some mild improvement from a neurological standpoint. He passed a swallow evaluation. Appear to be more alert. Continue rehabilitation efforts with physical therapy/OT/speech Dysphasia: Related to encephalopathy. Probable anoxic injury from cardiogenic shock and respiratory failure. -Patient pulled out NG tube. -Speech therapy following and he passed a swallow evaluation. Modified diet per speech as tolerated. cont Renal/diabetic diet. End-stage renal disease Cont MWF hemodialysis. Nephrology following, looking less likely that his renal function will recover. Once it is determined that he will need permanent dialysis, will have to arrange outpatient dialysis for him. Possible seizure Continue Keppra 500mg PO BID. EEG was negative Non-STEMI Hypertension Troponins elevated to 0.52, 1.89 and 2.37. Cardiology recommended conservative medical management. Continue aspirin, carvedilol 6.25 twice daily, isosorbide dinitrate, atorvastatin 20 mg Continue amlodipine 5 mg daily Bilateral pneumothoraces pneumomediastinum acute respiratory failure chest tubes removed 01/28/2018 Continue oxygen supplementation Appreciate pulmonology following. Patient cannot tolerate BiPAP. Pneumoperitoneum with right retroperitoneal gas/gas around the right kidney Likely secondary to bilateral pneumothoraces with no surgical intervention warranted per general surgery Hepatitis secondary to shock Hepatic steatosis Cirrhosis Possible alcohol abuse Continue thiamine Continue folic acid Continue beta-blockers diabetes mellitus Diabetic diet Continue Aspart Sliding scale insulin. Will add low dose Levemir. Goal BG 140-180. hypothyroidism continue levothyroxine Normocytic anemia Status post PRBC transfusion. H&H stable around 8. Full code. Heparin SQ.
[2018-02-10] MEDS: Carvedilol 6.25 MG Tablet PO SCH ×2 (09:38→21:29)
[2018-02-10] MEDS: Senna/Docusate Sodium 8.6/50 MG Tablet PO SCH ×2 (09:38→21:29)
[2018-02-10] MEDS: amLODIPine 5 MG Tablet PO SCH (09:38)
[2018-02-10] MEDS: Folic Acid 1 MG Tablet PO SCH (09:38)
[2018-02-10] MEDS: levETIRAcetam 500 MG Tablet PO SCH ×2 (09:39→21:29)
[2018-02-10] MEDS: Chlorhexidine 0.12% Oral Kit 15 ML UDC OROPHARYNG SCH ×2 (09:39→21:25)
[2018-02-10] MEDS: Calcium Acetate 667 MG Capsule PO SCH ×3 (09:39→17:33)
[2018-02-10] MEDS: Insulin Detemir Inj 1,000 UNIT/10 ML Vial SQ SCH (21:43)
[2018-02-11] MEDS: Oral Hygiene Kit OROPHARYNG SCH ×5 (00:18→23:13)
[2018-02-11] MEDS: Artificial Tears Opth Drops 15 ML Bottle EACH EYE SCH ×4 (00:19→23:13)
[2018-02-11] MEDS: Pantoprazole Inj 40 MG Vial IV.PUSH SCH ×2 (01:17→14:13)
[2018-02-11] MEDS: Levothyroxine 88 MCG Tablet PO SCH (05:44)
[2018-02-11] MEDS: hydrALAZINE 25 MG Tablet PO SCH ×3 (05:44→21:47)
--- NOTE | 2018-02-11 08:36 | P.PNNEU ---
Subjective Active Medications: Active Medications Acetaminophen (Tylenol) 650 mg PO UNSCH PRN PRN Reason: SEE LABEL COMMENTS Al Hydroxide/Mg Hydroxide (Milk Of Magngabriela Liq) 30 ml PO Q12H PRN PRN Reason: Mild Constipation Albuterol (Duoneb Neb (Prn)) 1 ampul NEB Q2HR NEB PRN PRN Reason: DYSPNEA Amlodipine Besylate (Norvasc) 5 mg PO DAILY [facility] Last Admin: 02/10/18 09:38 Dose: 5 mg Artificial Tears (Tears Naturale Opth Drops) 1 drop EACH EYE Q8H [facility] Last Admin: 02/11/18 00:19 Dose: 1 drop Aspirin (Aspirin Chew) 81 mg PO DAILY [facility] Last Admin: 02/10/18 09:38 Dose: 81 mg Atorvastatin Calcium (Lipitor) 20 mg PO DAILY [facility] Last Admin: 02/10/18 09:40 Dose: 20 mg Bisacodyl (Dulcolax Supp) 10 mg RECTAL DAILY PRN PRN Reason: SEVERE CONSITIPATION Calcium Acetate (Phoslo) 667 mg PO TID [facility] Last Admin: 02/10/18 17:33 Dose: 667 mg Carvedilol (Coreg) 6.25 mg PO BID [facility] Last Admin: 02/10/18 21:29 Dose: 6.25 mg Chlorhexidine Gluconate (Peridex 0.12% Oral Kit) 15 ml OROPHARYNG BID@0800, 2000 [facility] Last Admin: 02/10/18 21:25 Dose: 15 ml Clonidine HCl (Catapres) 0.1 mg PO UNSCH PRN PRN Reason: SEE LABEL COMMENTS Dextrose (D50w Vial) 50 ml IV.PUSH UNSCH PRN PRN Reason: PER HYPOGLYCEMIA PROTOCOL Diphenhydramine HCl (Benadryl) 25 mg PO UNSCH PRN PRN Reason: SEE LABEL COMMENTS Epoetin Jaleel (Epogen Inj) 10,000 unit DIALYSYS MoWeFr [facility] Last Admin: 02/08/18 17:21 Dose: Not Given Folic Acid (Folic Acid) 1 mg PO DAILY [facility] Last Admin: 02/10/18 09:38 Dose: 1 mg Furosemide (Lasix Inj) 20 mg IV.PUSH ONCE PRN PRN Reason: Between Units of blood Last Admin: 02/01/18 23:34 Dose: 20 mg Gelatin (Gelfoam 12 Mm/7 Mm Topical) 1 foam TOPICAL PRN PRN PRN Reason: help stop bleeding from site Gentamicin Sulfate (Gentamicin Inj) 20 mg OTHER WITH DIALYSIS PRN PRN Reason: Dwell Gentamycin Lock Last Admin: 02/08/18 14:40 Dose: 20 mg Glucagon (Glucagon Inj) 1 mg OTHER PRN PRN PRN Reason: for Hypoglycemia Protocol Heparin Sodium (Porcine) (Heparin Inj) 0 units IV.FLUSH WITH DIALYSIS PRN PRN Reason: Flush each lumen Last Admin: 01/25/18 08:38 Dose: 2,000 units Heparin Sodium (Porcine) (Heparin Inj) 8,000 units OTHER WITH DIALYSIS PRN PRN Reason: for machine prime Heparin Sodium (Porcine) (Heparin Inj) 1,000 units OTHER WITH DIALYSIS PRN PRN Reason: Dwell Heparin to Fill Catheter Last Admin: 02/06/18 09:11 Dose: 1,000 units Heparin Sodium (Porcine) (Heparin Inj) 5,000 units SQ Q12HR [facility] Hydralazine HCl (Apresoline Inj) 10 mg IV.PUSH Q1H PRN PRN Reason: sbp > 165 Last Admin: 01/27/18 00:30 Dose: 10 mg Hydralazine HCl (Apresoline) 100 mg PO Q8HR [facility] Last Admin: 02/11/18 05:44 Dose: 100 mg Sodium Chloride (Ns Inj) 1,000 mls @ 0 mls/hr OTHER .Q0M PRN PRN Reason: for prime and rinse back Last Infusion: 01/26/18 02:33 Dose: Infused Sodium Chloride (Ns Inj) 1,000 mls @ 200 mls/hr OTHER .Q5H PRN PRN Reason: for dialyzer flush PRN Albumin Human (Flexbumin 25% Inj) 100 mls @ 60 mls/hr IV.SIG WITH DIALYSIS PRN PRN Reason: hypotension / volume replace Sodium Chloride (Ns Inj) 1,000 mls @ 0 mls/hr OTHER .Q0M PRN PRN Reason: for prime and rinse back Sodium Chloride (Ns Inj) 1,000 mls @ 200 mls/hr OTHER .Q5H PRN PRN Reason: for dialyzer flush PRN Sodium Chloride (Ns Inj) 1,000 mls @ 0 mls/hr IV.CONT .Q0M PRN PRN Reason: hypotension / volume replace Dextrose/Sodium Chloride (D5w/Normal Saline Inj) 1,000 mls @ 60 mls/hr IV.CONT .[id number] [facility] Last Admin: 02/10/18 16:35 Dose: Not Given Insulin Aspart (Novolog Insulin Correctional Sugar Inj) 0 unit SQ ACHS [facility]; Protocol Last Admin: 02/10/18 21:43 Dose: 1 unit Insulin Detemir (Levemir Inj) 5 unit SQ HS [facility] Last Admin: 02/10/18 21:43 Dose: 5 unit Isosorbide Dinitrate (Isordil) 20 mg PO Q8HR [facility] Last Admin: 02/11/18 05:44 Dose: 20 mg Labetalol HCl (Trandate Inj) 10 mg IV.PUSH Q4H PRN PRN Reason: HTN Last Admin: 01/27/18 01:22 Dose: 10 mg Lactulose (Lactulose Liq) 30 ml PO DAILY PRN PRN Reason: SEVERE CONSITIPATION Lactulose (Lactulose Liq) 30 ml PO DAILY [facility] Last Admin: 02/10/18 09:38 Dose: 30 ml Levetiracetam (Keppra) 500 mg PO BID [facility] Last Admin: 02/10/18 21:29 Dose: 500 mg Levothyroxine Sodium (Synthroid) 88 mcg PO DAILY@0600 [facility] Last Admin: 02/11/18 05:44 Dose: 88 mcg Mannitol (Mannitol Inj) 12.5 gm IV.PUSH UNSCH PRN PRN Reason: hypotension / volume replace Miscellaneous Medication () 1 each OROPHARYNG 0000,0400,1200,1600 [facility] Last Admin: 02/11/18 03:34 Dose: Not Given Morphine Sulfate (Morphine Inj) 2 mg IV.PUSH Q2H PRN PRN Reason: PAIN SCALE 6 TO 10 Last Admin: 02/02/18 20:35 Dose: 2 mg Multivitamins (Theragran) 1 tab PO DAILY [facility] Last Admin: 02/10/18 09:38 Dose: 1 tab Nitroglycerin (Nitro-Bid 2% Oint) 2 inch TOPICAL Q6HR PRN PRN Reason: Sbp>165, Dbp>90 Nitroglycerin (Nitrostat Sl) 0.4 mg SL Q5M PRN PRN Reason: CHEST PAIN Ondansetron HCl (Zofran Inj) 4 mg IV.PUSH UNSCH PRN PRN Reason: NAUSEA OR VOMITING Pantoprazole Sodium (Protonix Inj) 40 mg IV.PUSH Q12H [facility] Last Admin: 02/11/18 01:17 Dose: 40 mg Senna/Docusate Sodium (Ayleen-Colace) 1 tab PO BID [facility] Last Admin: 02/10/18 21:29 Dose: 1 tab Sennosides (Senokot) 17.2 mg PO Q12H PRN PRN Reason: Moderate Constipation Sodium Chloride (Ns Flush) 2 ml IV.FLUSH BID [facility] Last Admin: 02/10/18 21:43 Dose: 2 ml Sodium Chloride (Ns Flush) 2 ml IV.FLUSH PRN PRN PRN Reason: FLUSH AFTER USING IV ACCESS Last Admin: 01/16/18 09:33 Dose: 2 ml Sodium Chloride (Ns Flush) 0 ml IV.FLUSH PRN PRN PRN Reason: FLUSH AFTER USING IV ACCESS Sodium Chloride (Ns Flush) 5 ml IV.FLUSH PRN PRN PRN Reason: flush each lumen during HD Terbutaline Sulfate (Brethine Inj) 1 mg SQ UNSCH PRN PRN Reason: For Extravasation Thiamine HCl (Vitamin B1) 100 mg PO DAILY [facility] Last Admin: 02/10/18 09:38 Dose: 100 mg Allergies/Adverse Reactions: Allergies Allergy/AdvReac Type Severity Reaction Status Date / Time erythromycin base Allergy Severe Hives Verified 01/14/18 03:00 penicillin G Allergy Severe Hives Verified 01/14/18 03:00 Physical Exam Vital signs: Vital Signs 02/10/18 11:51 02/10/18 12:29 02/10/18 16:14 Temperature 98.2 F 98.3 F Pulse Rate 81 85 Respiratory Rate 18 18 Blood Pressure 160/84 H 130/72 Pulse Oximetry 94 L 95 93 L 02/10/18 19:24 02/10/18 20:00 02/10/18 21:19 Temperature 99.6 F Pulse Rate 89 Respiratory Rate 18 Blood Pressure 150/100 H Pulse Oximetry 93 L 96 95 02/10/18 21:20 02/11/18 00:00 02/11/18 01:20 Temperature 99.1 F Pulse Rate 85 Respiratory Rate 18 Blood Pressure 119/68 Pulse Oximetry 95 96 96 02/11/18 04:00 02/11/18 07:00 02/11/18 07:59 Temperature 98.9 F 97.3 F L Pulse Rate 79 84 Respiratory Rate 18 20 Blood Pressure 159/83 H 152/83 H Pulse Oximetry 96 91 L 95 Intake & Output 02/10/18 02/11/18 02/11/18 18:59 06:59 18:59 Intake Total 980 / 980 221 / 221 Balance 980 / 980 221 / 221 Weight 96.7 kg Intake: Oral 980 / 980 221 / 221 Other: Other Intake Source Saline Solution # Voids 1 # Incontinent Voids 2 Date of Last Bowel Movement 02/10/18 02/10/18 02/11/18 # Incontinent Bowel Movements 2 1 Narrative: awake lizz knows [facility]mc not yr moving all well x lue not as well as right - Urinary Catheter Management Indwelling Temp Sensing Catheter Cath placed during this visit: yes, but has since been removed by the nurse Reason for continuing: Decision to DC catheter Insertion date: 01/14/18 Insertion time: 22:00 Removal date: 01/21/18 Removal time: 18:00 Straight Cath placed during this visit: no Objective Laboratory Results - last 24 hr 02/10/18 02/10/18 02/10/18 11:16 17:14 21:24 POC Glucose 179 H 169 H 177 H 02/11/18 02/11/18 02/11/18 03:24 05:36 07:27 POC Glucose 124 H 127 H 153 H Review/Management - Review/Management Plan: imp seems to be interacting a little b12 nl fu us old r cva on asa sz focus could be there on keppra echo neg if any afib would anticoag /01/31/18 interacting more follow some commands us neg improved neuro -- 02/04/18 more alert doing a little better every day neurowise oob - 02/07/18 eeg neg doing much better prob mild anoxic damage 02/11/18 some ? lue weakness old r mca cva us and echo neg on asa check ldl and holter from er note had known old cva really doing much better some mild anoxic damagge oob ok by me
[2018-02-11] MEDS: Insulin NovoLOG Aspart Correctional Sugar Inj SQ SCH ×4 (09:02→21:46)
[2018-02-11] MEDS: Chlorhexidine 0.12% Oral Kit 15 ML UDC OROPHARYNG SCH ×2 (09:02→21:48)
--- NOTE | 2018-02-11 09:53 | P.PNIM ---
Subjective Interval history: Follow-up for possible anoxic brain injury, hepatic encephalopathy, end-stage renal disease. Patient was seen after dialysis. Patient is currently doing well. Resting in bed. No acute concerns. Physical Exam Vital signs: Last Vital Signs Temp 97.3 F L 02/11/18 07:00 Pulse 82 02/11/18 08:00 Resp 20 02/11/18 07:00 BP 152/83 H 02/11/18 07:00 Pulse Ox 95 02/11/18 07:59 Intake & Output 02/09/18 02/10/18 02/11/18 02/12/18 06:59 06:59 06:59 06:59 Intake Total 1050 / 1050 900 / 900 1201 / 1201 Output Total 8000 / 8000 Balance -6950 / -6950 900 / 900 1201 / 1201 Weight 100.9 kg 98.2 kg 96.7 kg GENERAL: Alert, NAD. SKIN: Warm and dry. HEAD: Normocephalic. EYES: No scleral icterus. No injection or drainage. NECK: Supple, trachea midline. No JVD or lymphadenopathy. CARDIOVASCULAR: Regular rate and rhythm without murmurs, gallops, or rubs. RESPIRATORY: Breath sounds equal bilaterally. No accessory muscle use. GASTROINTESTINAL: Abdomen soft, non-tender, nondistended. MUSCULOSKELETAL: No cyanosis, or edema. BACK: Nontender without obvious deformity. No CVA tenderness. Urinary Catheter Management Indwelling Temp Sensing Catheter: Cath placed during this visit: yes, but has since been removed by the nurse Insertion date: 01/14/18 Insertion time: 22:00 Removal date: 01/21/18 Removal time: 18:00 Straight: Cath placed during this visit: no Results Labs CBC & Chem 7: 02/09/18 04:23 02/09/18 04:23 Procedures Procedures: Left IJ HD tunneled cath placed 02/08/18 by IR Assessment and Plan Plan 62-year-old white male who was admitted with cardiogenic shock and acute respiratory failure requiring CPR and epinephrine in the field, after being found down at home and being witnessed to possibly have undergone seizure-like activity. Intubation was attempted in the field but were unable to do so, patient was ultimately intubated in the hospital, started on pressors, placed in the ICU on mechanical ventilation. Found to have bilateral pneumothoraces with chest tubes placed, had developed some pneumoperitoneum which surgically deemed might have been a leak from his chest tubes as opposed to an acute surgical abdomen. Patient was started on antibiotics empirically for possible aspiration pneumonia but was ultimately discontinued off of them by infectious disease. Developed rhabdomyolysis with worsening acute renal failure which became sustained, with the patient now undergoing dialysis. Ultimately was discontinued off pressors, cardiology deferred heart cath due to renal failure. Patient had difficulty following commands after he was discontinued off of sedation and after extubation. Had an MRI done on 01/17 which showed no acute findings, only an older right parietal CVA. EEG was done which was unremarkable. 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 Appeared to be making some mild improvement from a neurological standpoint. He passed a swallow evaluation. Appear to be more alert. Continue rehabilitation efforts with physical therapy/OT/speech Per Neurology, patient can be out of bed. Dysphasia: Related to encephalopathy. Probable anoxic injury from cardiogenic shock and respiratory failure. -Patient pulled out NG tube. -Speech therapy following and he passed a swallow evaluation. Modified diet per speech as tolerated. cont Renal/diabetic diet. End-stage renal disease Cont MWF hemodialysis. Nephrology following, looking less likely that his renal function will recover. Once it is determined that he will need permanent dialysis, will have to arrange outpatient dialysis for him. Possible seizure Continue Keppra 500mg PO BID. EEG was negative Non-STEMI Hypertension Troponins elevated to 0.52, 1.89 and 2.37. Cardiology recommended conservative medical management. Continue aspirin, carvedilol 6.25 twice daily, isosorbide dinitrate, atorvastatin 20 mg Continue amlodipine 5 mg daily Bilateral pneumothoraces pneumomediastinum acute respiratory failure chest tubes removed 01/28/2018 Continue oxygen supplementation Appreciate pulmonology following. Patient cannot tolerate BiPAP. Pneumoperitoneum with right retroperitoneal gas/gas around the right kidney Likely secondary to bilateral pneumothoraces with no surgical intervention warranted per general surgery Hepatitis secondary to shock Hepatic steatosis Cirrhosis Possible alcohol abuse Continue thiamine Continue folic acid Continue beta-blockers diabetes mellitus Diabetic diet Continue Aspart Sliding scale insulin. Will add low dose Levemir. Goal BG 140-180. hypothyroidism continue levothyroxine Normocytic anemia Status post PRBC transfusion. H&H stable around 8. Full code. Heparin SQ. Progress Note: Quality VTE Deep Vein Thrombosis/Pulmonary Embolism Present on Admission: No
--- NOTE | 2018-02-11 10:37 | P.PNNP ---
Subjective Interval history: Patient's mental status appears to be improving slowly. He is aware that he is in the hospital at [facility]. Physical Exam Vital signs: Vital Signs 02/10/18 11:51 02/10/18 12:29 02/10/18 16:14 Temperature 98.2 F 98.3 F Pulse Rate 81 85 Respiratory Rate 18 18 Blood Pressure 160/84 H 130/72 Pulse Oximetry 94 L 95 93 L 02/10/18 19:24 02/10/18 20:00 02/10/18 21:19 Temperature 99.6 F Pulse Rate 89 Respiratory Rate 18 Blood Pressure 150/100 H Pulse Oximetry 93 L 96 95 02/10/18 21:20 02/11/18 00:00 02/11/18 01:20 Temperature 99.1 F Pulse Rate 85 Respiratory Rate 18 Blood Pressure 119/68 Pulse Oximetry 95 96 96 02/11/18 04:00 02/11/18 07:00 02/11/18 07:59 Temperature 98.9 F 97.3 F L Pulse Rate 79 84 Respiratory Rate 18 20 Blood Pressure 159/83 H 152/83 H Pulse Oximetry 96 91 L 95 02/11/18 08:00 Temperature Pulse Rate 82 Respiratory Rate Blood Pressure Pulse Oximetry Intake & Output 02/10/18 02/11/18 02/11/18 18:59 06:59 18:59 Intake Total 980 / 980 221 / 221 Balance 980 / 980 221 / 221 Weight 96.7 kg Intake: Oral 980 / 980 221 / 221 Other: Other Intake Source Saline Solution # Voids 1 # Incontinent Voids 2 Date of Last Bowel Movement 02/10/18 02/10/18 02/11/18 # Incontinent Bowel Movements 2 1 Narrative: GENERAL: Patient is seen during dialysis. Hemodialysis PermCath appears to be working well. SKIN: Warm and dry. HEAD: Normocephalic. EYES: No scleral icterus. No injection or drainage. NECK: Supple, trachea midline. No JVD . CARDIOVASCULAR: Regular rate and rhythm without murmurs, gallops, or rubs. RESPIRATORY: Breath sounds equal bilaterally. No accessory muscle use. GASTROINTESTINAL: Abdomen soft, non-tender, nondistended. MUSCULOSKELETAL: No cyanosis, or edema. - Urinary Catheter Management Indwelling Temp Sensing Catheter Cath placed during this visit: yes, but has since been removed by the nurse Reason for continuing: Decision to DC catheter Insertion date: 01/14/18 Insertion time: 22:00 Removal date: 01/21/18 Removal time: 18:00 Straight Cath placed during this visit: no Assessment and Plan - Assessment (1) Acute renal failure Code(s): N17.9 - Acute kidney failure, unspecified Status: Acute Plan: Remains dialysis dependent at this time. Remains to be seen if any recovery will be made. RIJ PermCath placed 02/08/18 Continue HD MWF schedule for the present. Continue calcium acetate for hyperphosphatemia. Repeat BMP daily for the next few days to see if there is any significant renal recovery occurring. Medications should be adjusted for the patient's estimated GFR if clinically indicated. Avoid agents with significant potential for nephrotoxicity possible including NSAIDs for analgesia, iodine contrast agents. Gadolinium is contraindicated if the GFR is below 30. (2) Alcohol abuse Code(s): F10.10 - Alcohol abuse, uncomplicated Status: Acute (3) Alcohol withdrawal seizure with complication Code(s): F10.239 - Alcohol dependence with withdrawal, unspecified; R56.9 - Unspecified convulsions Status: Acute (4) Rhabdomyolysis Code(s): M62.82 - Rhabdomyolysis Status: Acute Plan: Resolved (5) Anemia Code(s): D64.9 - Anemia, unspecified Status: Acute Qualifiers: Anemia type: due to chronic kidney disease Plan: Increase Epo with HD. (6) Hypertension Code(s): I10 - Essential (primary) hypertension Status: Acute
[2018-02-11] MEDS: Heparin 10,000 UNITS/10 ML Vial (for IV use) OTHER PRN (12:35)
[2018-02-11] MEDS: Calcium Acetate 667 MG Capsule PO SCH ×3 (14:06→17:20)
[2018-02-11] MEDS: Carvedilol 6.25 MG Tablet PO SCH ×2 (14:06→21:46)
[2018-02-11] MEDS: Senna/Docusate Sodium 8.6/50 MG Tablet PO SCH ×2 (14:06→21:48)
[2018-02-11] MEDS: amLODIPine 5 MG Tablet PO SCH (14:06)
[2018-02-11] MEDS: Dextrose 5%/NaCl 0.9% Inj 1,000 ML IV.CONT SCH (14:07)
[2018-02-11] MEDS: levETIRAcetam 500 MG Tablet PO SCH ×2 (14:07→21:46)
[2018-02-11] MEDS: Folic Acid 1 MG Tablet PO SCH (14:07)
[2018-02-11 16:12] LABS: Chol/HDL Ratio 3.09 Ratio; HDL Cholesterol 38.1 mg/dL (40.0-60.0)
--- NOTE | 2018-02-11 17:42 | P.PNWCN ---
Wound Care Nurse Consult Description: Received wound management consult for extremity wound and pressure ulcers, may need specialty bed from Doctor Mike Bradley Communicated with: TINA aguirre and Call placed to Doctor Mike Bradley. Recommendation: Please cleanse wound to L buttock with normal saline or wound cleanser and pat dry. Apply Calazime skin protectant paste to periwound and cover wound with bordered gauze. Change dressing daily or PRN if saturated or dislodged. Please turn patient every 2 hours from L side to R side, limiting time spent on back to P.T. and meals. Wound/Pressure Injury - Wound Left Buttocks Wound Staging: Stage II Wound Assessment: Ongoing Wound Type: Pressure Injury Is This a Chronic Wound: No Requested from Provider a Wound Care Consult: Yes (Wound care inpatient was consulted and saw patient today.) Length (cm): 5 Width (cm): 2.5 Depth (cm): 0.1 (~<0.1cm ) Wound Bed Appearance: [place] Wound Bed Appearance: 100% pink Drainage Description: Serosanguinous Drainage Amount: Scant Drainage Odor: No Odor Dressing Status: Changed Cleansing Solution: Saline Topical: Calazime skin protectant paste to periwound Cover Dressing: Bordered gauze Wound Dressing Change Date: 02/11/18 Wound Margin Description: Wound margins are well defined and open. - Additional Information Patient seen on [address] [place] [id number] for evaluation of extremity wound and pressure ulcers. spoke with López aguirre before entering patient's room. Patient has one wound on the L buttock per nurse and has peeling skin on the bilateral lower and upper extremities. Patient was turned with the assistance of Mireille administrative underwriter and López aguirre toward the R side to reveal bordered gauze in place to L buttock. Dressing was removed to reveal partial thickness wound to L buttock that appears pressure related.Periwound is noted with coating of Calazime skin protectant paste lining wound. Wound and periwound were cleansed with normal saline. Covered wound with bordered gauze. Assessed bilateral lower and upper extremities. The skin is peeling and dry. Patient needs a bath and lotion to be applied. Full wound description, measurements and wound care recommendations are noted above for L buttock wound.
--- NOTE | 2018-02-11 18:55 | P.PN ---
Subjective Interval history: Alert and breathing easy. Was in Dialysis today. Able to move feet to command and squeezed hands. Physical Exam Vital signs: Vital Signs 02/10/18 19:24 02/10/18 20:00 02/10/18 21:19 Temperature 99.6 F Pulse Rate 89 Respiratory Rate 18 Blood Pressure 150/100 H Pulse Oximetry 93 L 96 95 02/10/18 21:20 02/11/18 00:00 02/11/18 01:20 Temperature 99.1 F Pulse Rate 85 Respiratory Rate 18 Blood Pressure 119/68 Pulse Oximetry 95 96 96 02/11/18 04:00 02/11/18 07:00 02/11/18 07:59 Temperature 98.9 F 97.3 F L Pulse Rate 79 84 Respiratory Rate 18 20 Blood Pressure 159/83 H 152/83 H Pulse Oximetry 96 91 L 95 02/11/18 08:00 02/11/18 14:25 02/11/18 15:30 Temperature 97.5 F L Pulse Rate 82 94 H Respiratory Rate 20 Blood Pressure 136/82 Pulse Oximetry 95 93 L Intake & Output 02/10/18 02/11/18 02/11/18 18:59 06:59 18:59 Intake Total 980 / 980 221 / 221 500 / 500 Output Total 1999 Balance 980 / 980 221 / 221 -1500 / -1500 Weight 96.7 kg Intake: Oral 980 / 980 221 / 221 500 / 500 Output: Hemodialysis Amount 1999 Other: Other Intake Source Saline Solution # Voids 1 # Incontinent Voids 2 1 Date of Last Bowel Movement 02/10/18 02/10/18 02/11/18 # Incontinent Bowel Movements 2 1 1 Narrative: GENERAL: Obese Mid aged W/m alert SKIN: Warm and dry. HEAD: Normocephalic. EYES: No scleral icterus. No injection or drainage. NECK: Supple, trachea midline. No JVD . CARDIOVASCULAR: Regular rate and rhythm without murmurs, gallops, or rubs. RESPIRATORY: Breath sounds equal bilaterally. No accessory muscle use. GASTROINTESTINAL: Abdomen soft, non-tender, nondistended. MUSCULOSKELETAL: No cyanosis, or edema. Moves feet and arms bur weak. - Urinary Catheter Management Indwelling Temp Sensing Catheter Cath placed during this visit: yes, but has since been removed by the nurse Reason for continuing: Decision to DC catheter Insertion date: 01/14/18 Insertion time: 22:00 Removal date: 01/21/18 Removal time: 18:00 Straight Cath placed during this visit: no Results - Labs CBC & Chem 7: 02/09/18 04:23 02/09/18 04:23 Laboratory Results - last 24 hr 02/10/18 02/11/18 02/11/18 21:24 03:24 05:36 POC Glucose 177 H 124 H 127 H Triglycerides Cholesterol LDL Cholesterol, Calc HDL Cholesterol Cholesterol/HDL Ratio 02/11/18 02/11/18 02/11/18 07:27 12:34 15:24 POC Glucose 153 H 112 H Triglycerides 193 H Cholesterol 118 L LDL Cholesterol, Calc 41 HDL Cholesterol 38.1 L Cholesterol/HDL Ratio 3.09 02/11/18 17:03 POC Glucose 119 H Triglycerides Cholesterol LDL Cholesterol, Calc HDL Cholesterol Cholesterol/HDL Ratio - Procedures Left IJ HD tunneled cath placed 02/08/18 by IR Assessment and Plan - Assessment (1) Encephalopathy acute Code(s): G93.40 - Encephalopathy, unspecified Status: Acute (2) Overdose Code(s): T50.901A - Poisoning by unspecified drugs, medicaments and biological substances, accidental (unintentional), initial encounter Status: Acute (3) Suicidal ideation Code(s): R45.851 - Suicidal ideations Status: Acute (4) Delirium tremens Code(s): F10.231 - Alcohol dependence with withdrawal delirium Status: Acute (5) Bilateral pneumothoraces Code(s): J93.9 - Pneumothorax, unspecified Status: Acute (6) Endotracheally intubated Code(s): Z97.8 - Presence of other specified devices Status: Acute (7) Elevated troponin Code(s): R74.8 - Abnormal levels of other serum enzymes Status: Acute (8) Acute renal failure Code(s): N17.9 - Acute kidney failure, unspecified Status: Acute (9) Alcohol abuse Code(s): F10.10 - Alcohol abuse, uncomplicated Status: Acute - Plan - Plan 1. Respiratory insufficiency, status post extubation on 01/25/2018. 2. s/p pneumothoraces on arrival, status post bilateral small bore chest tube placement on 01/15/2018. removed 01/28 3. Acute kidney injury.On Dialysis 4. Leukocytosis. 5. Anemia. 6. NSTEMI 7. Morbid obesity. 8. Hypertension. 9. Diabetes mellitus. 10. s/p seizures. Plan 1. Wean oxygen and use 2 L N/C PRN. 2. labs in am. 3. Aspiration precautions. 4. Up as tolerated 5. Dialysis as planned. 6.Nutrition support. on tube feeds via an NG tube, Nepro @60 mL an hour. 7. PT Evaluation 8. Albuterol Inhaler , 2 puffs TID PRN (2) Overdose Qualifiers: Encounter type: initial encounter Injury intent: undetermined intent Qualified Code(s): T50.904A - Poisoning by unspecified drugs, medicaments and biological substances, undetermined, initial encounter
[2018-02-11] MEDS: Insulin Detemir Inj 1,000 UNIT/10 ML Vial SQ SCH (21:45)
[2018-02-12] MEDS: Dextrose 5%/NaCl 0.9% Inj 1,000 ML IV.CONT SCH ×2 (02:29→19:26)
[2018-02-12] MEDS: Pantoprazole Inj 40 MG Vial IV.PUSH SCH ×2 (02:38→15:14)
[2018-02-12] MEDS: Oral Hygiene Kit OROPHARYNG SCH ×3 (04:37→15:14)
[2018-02-12] MEDS: hydrALAZINE 25 MG Tablet PO SCH ×3 (05:46→21:44)
[2018-02-12] MEDS: Levothyroxine 88 MCG Tablet PO SCH (05:46)
[2018-02-12 07:14] LABS: Calcium 9.8 mg/dL (8.5-10.1); Carbon Dioxide 29.3 meq/L (21.0-32.0)
[2018-02-12 07:17] LABS: Potassium 4.4 meq/L (3.5-5.1)
[2018-02-12] MEDS: Senna/Docusate Sodium 8.6/50 MG Tablet PO SCH ×2 (08:30→21:44)
[2018-02-12] MEDS: Folic Acid 1 MG Tablet PO SCH (08:30)
[2018-02-12] MEDS: amLODIPine 5 MG Tablet PO SCH (08:30)
[2018-02-12] MEDS: Calcium Acetate 667 MG Capsule PO SCH ×3 (08:30→17:46)
[2018-02-12] MEDS: Carvedilol 6.25 MG Tablet PO SCH ×2 (08:30→21:44)
[2018-02-12] MEDS: levETIRAcetam 500 MG Tablet PO SCH ×2 (08:30→21:44)
[2018-02-12] MEDS: Insulin NovoLOG Aspart Correctional Sugar Inj SQ SCH ×4 (08:31→21:35)
[2018-02-12] MEDS: Chlorhexidine 0.12% Oral Kit 15 ML UDC OROPHARYNG SCH ×2 (08:32→19:26)
[2018-02-12] MEDS: Artificial Tears Opth Drops 15 ML Bottle EACH EYE SCH ×2 (08:32→15:14)
--- NOTE | 2018-02-12 10:14 | P.PNIM ---
Subjective Interval history: Follow-up for possible anoxic brain injury, hepatic encephalopathy, end-stage renal disease. Patient appears to be much more alert and coherent today. He denies any chest pain, shortness of breath, fever or chills. He wants to drink water. We provided water at bedside with patient sitting upright in the bed. He tolerated thin liquid very well. Physical Exam Vital signs: Last Vital Signs Temp 97.7 F 02/12/18 06:55 Pulse 86 02/12/18 06:55 Resp 20 02/12/18 06:55 BP 114/68 02/12/18 06:55 Pulse Ox 92 L 02/12/18 06:55 Intake & Output 02/10/18 02/11/18 02/12/18 02/13/18 06:59 06:59 06:59 06:59 Intake Total 900 / 900 1201 / 1201 500 / 500 Output Total 2000 / 2000 Balance 900 / 900 1201 / 1201 -1500 / -1500 Weight 98.2 kg 96.7 kg 95.7 kg Narrative: GENERAL: More alert and coherent today. No acute distress. SKIN: Warm and dry. HEAD: Normocephalic. EYES: No scleral icterus. No injection or drainage. NECK: Supple, trachea midline. No JVD . CARDIOVASCULAR: Regular rate and rhythm without murmurs, gallops, or rubs. RESPIRATORY: Breath sounds equal bilaterally. No accessory muscle use. GASTROINTESTINAL: Abdomen soft, non-tender, nondistended. MUSCULOSKELETAL: No cyanosis, or edema. Moves feet and arms bur weak. Urinary Catheter Management Indwelling Temp Sensing Catheter: Cath placed during this visit: yes, but has since been removed by the nurse Insertion date: 01/14/18 Insertion time: 22:00 Removal date: 01/21/18 Removal time: 18:00 Straight: Cath placed during this visit: no Results Labs CBC & Chem 7: 02/09/18 04:23 02/12/18 05:09 Procedures Procedures: Left IJ HD tunneled cath placed 02/08/18 by IR Assessment and Plan Plan 62-year-old white male who was admitted with cardiogenic shock and acute respiratory failure requiring CPR and epinephrine in the field, after being found down at home and being witnessed to possibly have undergone seizure-like activity. Intubation was attempted in the field but were unable to do so, patient was ultimately intubated in the hospital, started on pressors, placed in the ICU on mechanical ventilation. Found to have bilateral pneumothoraces with chest tubes placed, had developed some pneumoperitoneum which surgically deemed might have been a leak from his chest tubes as opposed to an acute surgical abdomen. Patient was started on antibiotics empirically for possible aspiration pneumonia but was ultimately discontinued off of them by infectious disease. Developed rhabdomyolysis with worsening acute renal failure which became sustained, with the patient now undergoing dialysis. Ultimately was discontinued off pressors, cardiology deferred heart cath due to renal failure. Patient had difficulty following commands after he was discontinued off of sedation and after extubation. Had an MRI done on 01/17 which showed no acute findings, only an older right parietal CVA. EEG was done which was unremarkable. 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 Appeared to be making some mild improvement from a neurological standpoint. He passed a swallow evaluation. Appear to be more alert. Continue rehabilitation efforts with physical therapy/OT/speech Per Neurology, patient can be out of bed. Dysphasia: Related to encephalopathy. Probable anoxic injury from cardiogenic shock and respiratory failure. -Patient pulled out NG tube. -Patient is much more coherent and alert today. He can probably tolerate regular food. We will ask speech to reevaluate today. End-stage renal disease Cont MWF hemodialysis. Nephrology following, looking less likely that his renal function will recover. Once it is determined that he will need permanent dialysis, will have to arrange outpatient dialysis for him. Possible seizure Continue Keppra 500mg PO BID. EEG was negative Non-STEMI Hypertension Troponins elevated to 0.52, 1.89 and 2.37. Cardiology recommended conservative medical management. Continue aspirin, carvedilol 6.25 twice daily, isosorbide dinitrate, atorvastatin 20 mg Continue amlodipine 5 mg daily Bilateral pneumothoraces pneumomediastinum acute respiratory failure chest tubes removed 01/28/2018 Continue oxygen supplementation Appreciate pulmonology following. Patient cannot tolerate BiPAP. Pneumoperitoneum with right retroperitoneal gas/gas around the right kidney Likely secondary to bilateral pneumothoraces with no surgical intervention warranted per general surgery Hepatitis secondary to shock Hepatic steatosis Cirrhosis Possible alcohol abuse Continue thiamine Continue folic acid Continue beta-blockers diabetes mellitus Diabetic diet Continue Aspart Sliding scale insulin. Will add low dose Levemir. Goal BG 140-180. hypothyroidism continue levothyroxine Normocytic anemia Status post PRBC transfusion. H&H stable around 8. Full code. Heparin SQ. Progress Note: Quality VTE Deep Vein Thrombosis/Pulmonary Embolism Present on Admission: No
--- NOTE | 2018-02-12 17:29 | P.PNPAL ---
Reason for Visit Reason for visit: a. To assist with evaluation and management of symptoms including: Dysphasia, agitation, weakness b. To assist medical decision maker(s) with: better understanding of current medical conditions; weighing benefits/burdens of medical treatment options; making medical treatment decisions. Subjective Subjective/Interval History: This is a 62-year-old male who presented to [facility] 01/14/2018 via EMS for altered mental status and seizures. He has had multiple admissions to [facility] in 2018 mostly for alcohol intoxication the most recent was 4 days prior to this current admission. He has a long history of alcoholism. His reports he drinks 1 L of vodka daily. While in the ED he became obtunded and began vomiting dark material. Due to his inability to protect his airway, he was intubated. After the initial intubation he became combative and dislodged the tube acquiring removal of the initial ET tube and replacement of a second tube. After intubation, he subsequently went into cardiopulmonary arrest with ROSC after 2 cycles of CPR. Post CPR he was found to have significant subcu emphysema and was emergently sent to CT with CT of the head, chest and abdomen showed bilateral tension pneumothoraces as well as free air in the peritoneal cavity. Bilateral chest tubes were placed immediately and he was transferred to ICU where he arrested again and again had spontaneous return of circulation. Labs showed acute kidney injury, presumed to be from severe dehydration and aggressive IV fluid resuscitation was initiated. He was also found to have severe sepsis and vancomycin and cefepime were initiated with an infectious disease consultation and blood cultures. He remained critically ill requiring maximum doses of vasopressor support to include norepinephrine, vasopressin and epinephrine with subsequent worsening of his renal indices, eventually requiring dialysis. He initially required Flolan in addition to aggressive APRV mode of ventilation and after an 11-day course of intubation was subsequently extubated 01/25/2018. Patient seen today for medically necessary follow-up of dysphasia, agitation and weakness. Patient remains on nectar thickened liquid diet and mechanical soft food, progressing with swallowing evaluations. Patient continues to require verbal cues to chew and exhibits poor bolus formation with residual after swallowing. He was refusing his mashed potatoes, green beans and chicken breast today, but would allow him to be fed peaches or applesauce. He is unable to feed himself. He has difficulty expressing his needs due to his difficulty with speech and recalling words. Agitation is improving, with no aggressive behavior seen today. He is not requiring restraints. He is not receiving sedating medications. No reports from the nurses that he has been striking out or demonstrating agitation. He remains with left arm weakness, able to move his hand but not lift his arm off the bed. He continues to work with both physical and occupational therapy. OT found coordination to be severely impaired bilaterally for both fine and gross motor function. They continue to do range of motion and therapeutic exercise with him. Right arm is also weak however he does have some movement in it. He is unable to manage any basic activities of daily living. . Family/Friend Interactions: No family at bedside. . Advance Directives Living Will: Never completed Health Care Surrogate: Never completed Durable Power of Street Openings Inspector: Never completed Objective Vital Signs: Vital Signs 02/11/18 20:00 02/12/18 00:00 02/12/18 00:35 Temperature 97.3 F L 98.4 F Pulse Rate 101 H 81 83 Respiratory Rate 18 20 Blood Pressure 125/79 121/76 Pulse Oximetry 94 L 95 02/12/18 04:00 02/12/18 04:59 02/12/18 06:55 Temperature 98.2 F 97.7 F Pulse Rate 80 76 86 Respiratory Rate 20 20 Blood Pressure 142/83 H 114/68 Pulse Oximetry 97 92 L 02/12/18 09:00 02/12/18 10:35 02/12/18 14:40 Temperature 97.6 F 97.3 F L Pulse Rate 79 82 Respiratory Rate 20 20 Blood Pressure 136/88 140/76 Pulse Oximetry 93 L 93 L 95 Intake & Output 02/11/18 02/12/18 02/12/18 18:59 06:59 18:59 Intake Total 500 / 500 Output Total 1999 Balance -1500 / -1500 Weight 210 lb 15.718 oz Intake: Oral 500 / 500 Output: Hemodialysis Amount 1999 Other: # Incontinent Voids 1 1 Date of Last Bowel Movement 02/11/18 02/11/18 02/12/18 # Incontinent Bowel Movements 1 Physical Exam: CONSTITUTIONAL/GENERAL: This is an overweight male patient, lying in bed, lethargic, in no apparent distress. TUBES/LINES/DRAINS: PIV x2, right Vas-Cath CARDIOVASCULAR: Regular rate and rhythm without murmurs, gallops, or rubs. No JVD. Peripheral pulses symmetric. RESPIRATORY/CHEST: Symmetric, unlabored respirations. Lungs clear, diminished. Excessive oral secretions. GASTROINTESTINAL: Abdomen soft, non-tender, nondistended. No hepato-splenomegaly , or palpable masses. No guarding. Bowel sounds present. GENITOURINARY: Without palpable bladder distension. MUSCULOSKELETAL: Extremities without clubbing or cyanosis, 1 + generalized edema. No joint tenderness or effusion noted. No calf tenderness. No mottling or clubbing. NEUROLOGICAL: Alert, some answers are appropriate, oriented to place, self with poor insight. PSYCHIATRIC: Calm, interactive, appropriate. . Diagnostic Tests Laboratory: Laboratory Results - last 72 hr 02/09/18 02/09/18 02/10/18 17:47 21:23 07:20 Sodium Potassium Chloride Carbon Dioxide Anion Gap BUN Creatinine Estimated GFR POC Glucose 156 H 169 H 180 H Random Glucose Calcium Triglycerides Cholesterol LDL Cholesterol, Calc HDL Cholesterol Cholesterol/HDL Ratio 02/10/18 02/10/18 02/10/18 11:16 17:14 21:24 Sodium Potassium Chloride Carbon Dioxide Anion Gap BUN Creatinine Estimated GFR POC Glucose 179 H 169 H 177 H Random Glucose Calcium Triglycerides Cholesterol LDL Cholesterol, Calc HDL Cholesterol Cholesterol/HDL Ratio 02/11/18 02/11/18 02/11/18 03:24 05:36 07:27 Sodium Potassium Chloride Carbon Dioxide Anion Gap BUN Creatinine Estimated GFR POC Glucose 124 H 127 H 153 H Random Glucose Calcium Triglycerides Cholesterol LDL Cholesterol, Calc HDL Cholesterol Cholesterol/HDL Ratio 02/11/18 02/11/18 02/11/18 12:34 15:24 17:03 Sodium Potassium Chloride Carbon Dioxide Anion Gap BUN Creatinine Estimated GFR POC Glucose 112 H 119 H Random Glucose Calcium Triglycerides 193 H Cholesterol 118 L LDL Cholesterol, Calc 41 HDL Cholesterol 38.1 L Cholesterol/HDL Ratio 3.09 02/11/18 02/12/18 02/12/18 21:36 01:21 05:09 Sodium 137 Potassium 4.4 Chloride 98 Carbon Dioxide 29.3 Anion Gap 10 BUN 43 H Creatinine 7.30 H Estimated GFR 8 L POC Glucose 159 H 169 H Random Glucose 129 H Calcium 9.8 Triglycerides Cholesterol LDL Cholesterol, Calc HDL Cholesterol Cholesterol/HDL Ratio 02/12/18 02/12/18 05:56 11:15 Sodium Potassium Chloride Carbon Dioxide Anion Gap BUN Creatinine Estimated GFR POC Glucose 152 H 210 H Random Glucose Calcium Triglycerides Cholesterol LDL Cholesterol, Calc HDL Cholesterol Cholesterol/HDL Ratio Result Diagrams: 02/09/18 04:23 02/12/18 05:09 Imaging: ITS Impressions Cervical Spine CT 01/14/18 21:58 CONCLUSION: 1. No acute fracture or malalignment. 2. Subcutaneous emphysema again noted as well as the known right pneumothorax. Head CT 01/14/18 21:58 CONCLUSION: 1. No acute hemorrhage or mass effect. 2. Stable area of encephalomalacia in the right lateral lobe. . Abdomen/Bladder Ultrasound 01/16/18 00:00 CONCLUSION: 1. Trace ascites. 2. Negative renal ultrasound Abdomen/Pelvis CT 01/16/18 00:00 CONCLUSION: 1. Minimal free intraperitoneal air. I don't see etiology for such 2. Dense consolidation both lung bases with small bilateral chest tubes 3. Trace pneumothorax on the left. No pneumothorax on the right. 4. Moderate fatty replacement to the liver with prominent gallbladder Chest CT 01/16/18 00:00 . CONCLUSION: 1. Dense consolidation in both lung bases small bore chest tubes evident. 2. Trace pneumothorax on the left 3. No significant fluid. Cervical Spine MRI 01/27/18 00:00 CONCLUSION: 1. No fracture or subluxation seen of the cervical spine but there is edema in the erector spinae muscles, especially on the right at the level of the upper cervical spine. This is nonspecific but presumably related to an acute or subacute strain. Localized early denervation would be conceivable but I don't see any atrophy. 2. There is an age-indeterminate left foraminal disc protrusion at C3/C4 that is probably impinging on the transiting left C4 nerve root. 3. Multilevel degenerative changes that otherwise appear chronic, as described. Associated high-grade foraminal stenosis on the right at C4/C5, bilateral at C5/C6 and C6/C7. No high-grade spinal stenosis demonstrated. Head MRI 01/27/18 00:00 CONCLUSION: 1. Remote right posterior parietal mid convexity infarct. 2. Mild cerebral atrophy with mild periventricular ischemic white matter demyelination. 3. Stable paranasal sinus mucosal disease and mastoiditis. 4. No acute abnormality. Specifically, no acute infarction or hemorrhage. Abdomen X-Ray 01/28/18 00:00 CONCLUSION: Mild gaseous distention of bowel. Carotid Doppler Study 01/28/18 00:00 CONCLUSION: 1. Right Internal Carotid Artery: No significant stenosis or atherosclerotic plaque is visualized. 2. Left Internal Carotid Artery: No significant stenosis or atherosclerotic plaque is visualized. Venous Doppler Study 02/05/18 00:00 CONCLUSION: No venous thrombosis is identified within the left upper extremity. Chest X-Ray 02/06/18 00:00 CONCLUSION: There is mild bibasilar airspace opacity that has not significantly changed from the prior study. The appearance suggests either subsegmental atelectasis or consolidation. No pleural effusion is present. Catheter Placement 02/08/18 00:00 CONCLUSION: 1. Uncomplicated line placement as above. Tube Removal 02/08/18 00:00 CONCLUSION: 1. Uncomplicated catheter removal. Procedures: 01/14: Intubation x2 01/14: Right and left chest tube placement 01/14: Right brachial arterial line placement 01/14: Right subclavian central line placement 01/17: Placement of L IJ hemodialysis catheter. Assessment and Plan - Disease Oriented Problem List (1) Delirium tremens (2) Bilateral pneumothoraces (3) Endotracheally intubated (4) Elevated troponin (5) Acute renal failure (6) Alcohol abuse (7) Alcohol withdrawal seizure with complication (8) Rhabdomyolysis Pertinent Non-Medical Issues: Psychosocial: He lived in many states growing up. 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 He has been once to his current , from who he is now and has no children. 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 Legal: No advance directives completed. Ethical issues impacting care: Patient does not appear capacitated for decision- making. . Important Contacts: : Tressa Canseco [phone] Sister: Lala Canseco . Prognosis: His prognosis is guarded. He still has significant deficits and is at risk for recurrent complications, infections and decline. At this time he has multisystem organ compromise to include cardiogenic shock status post SD on admission with cardiac arrest x2, respiratory insufficiency, acute kidney injury on hemodialysis and hepatitis secondary to shock. It is the opinion of nephrology that his renal failure is caused by his cardiac failure equating to cardiorenal syndrome. He has left-sided weakness and appears aphasic at this time. Pending speech therapy evaluation. He was previously too unstable from a respiratory standpoint to undergo evaluation. He is at significant risk for continued complications and decline. . Code Status: Full Code Plan: PLAN: Legal decision maker: At this time the patient is not capacitated for decision-making and it is uncertain whether he statutes, his Tressa would be his proxy decision-maker. Goals: Aggressive at this time. CODE STATUS: FULL CODE SYMPTOMS: * Dysphasia: Speech therapy has evaluated and found him to have mild oropharyngeal dysphasia and has placed him on a pured diet with nectar thickened liquids. He has failed repeated attempts at thin liquids by the teaspoon. He is seen to have difficulty controlling his oral secretions. Speech therapy continues to follow. * Agitation: His agitation has resolved as his encephalopathy clears. No longer in restraints, no sedating medications given. No further recommendations. * Weakness: Bilateral upper extremity weakness left greater than right. Requiring physical therapy 7 days a week. Also receiving OT and ST. He is able to move his left hand but not lift his arm, right arm remains grossly weak with some movement. He is dependent for all ADLs and cannot feed himself. Physical therapy is recommended, however patient has no payer source so placement would have to be on a chauncey basis. As his dialysis is considered acute and not chronic at this time, [facility] states he cannot apply for disability. Placement is likely to be difficult. Palliative care will continue to follow the patient during hospital course as condition evolves, to assist patient/decision-maker with understanding of their medical conditions, weighing benefits/burdens of treatment options, for clarification of goals of treatment. Additionally will assist with any symptoms of palliative concern. . Attestation Attestation: To help prompt me to consider important information that might be impacting today's encounter and assessment, information from prior notes written by myself or my colleagues may have been "brought forward" into today's note. My signature on this note, however, is an attestation that I personally performed the exam, history, and/or decision-making noted today, and, unless otherwise indicated, the interactions with patient, family, and staff as well as the review of records all occurred today. I also attest that the listed assessment and stated plan reflect my best clinical judgment today based on the combination of historical information, prior notes, and today's exam/ interactions. When time spent is documented, it refers only to time spent today by the signer, or if indicated, combined time spent today by collaborating physician/nurse practitioner. .
--- NOTE | 2018-02-12 19:29 | P.PN ---
Subjective Interval history: Responsive and trying to talk. Went for dialysis. Off O2. Weak in legs. Physical Exam Vital signs: Vital Signs 02/11/18 20:00 02/12/18 00:00 02/12/18 00:35 Temperature 97.3 F L 98.4 F Pulse Rate 101 H 81 83 Respiratory Rate 18 20 Blood Pressure 125/79 121/76 Pulse Oximetry 94 L 95 02/12/18 04:00 02/12/18 04:59 02/12/18 06:55 Temperature 98.2 F 97.7 F Pulse Rate 80 76 86 Respiratory Rate 20 20 Blood Pressure 142/83 H 114/68 Pulse Oximetry 97 92 L 02/12/18 09:00 02/12/18 10:35 02/12/18 14:40 Temperature 97.6 F 97.3 F L Pulse Rate 79 82 Respiratory Rate 20 20 Blood Pressure 136/88 140/76 Pulse Oximetry 93 L 93 L 95 Intake & Output 02/12/18 02/12/18 02/13/18 06:59 18:59 06:59 Intake Total 750 / 750 Balance 750 / 750 Weight 95.7 kg Intake: Oral 750 / 750 Other: # Incontinent Voids 1 1 Date of Last Bowel Movement 02/11/18 02/12/18 # Incontinent Bowel Movements 4 Narrative: GENERAL: More alert today. No acute distress. SKIN: Warm and dry. HEAD: Normocephalic. EYES: No scleral icterus. No injection or drainage. NECK: Supple, trachea midline. No JVD . CARDIOVASCULAR: Regular rate and rhythm without murmurs, gallops, or rubs. RESPIRATORY: Breath sounds equal bilaterally. Occ wheeze upper chest.No accessory muscle use. GASTROINTESTINAL: Abdomen soft, non-tender, nondistended. MUSCULOSKELETAL: No cyanosis, or edema. Moves feet and arms but weak. - Urinary Catheter Management Indwelling Temp Sensing Catheter Cath placed during this visit: yes, but has since been removed by the nurse Reason for continuing: Decision to DC catheter Insertion date: 01/14/18 Insertion time: 22:00 Removal date: 01/21/18 Removal time: 18:00 Straight Cath placed during this visit: no Results - Labs CBC & Chem 7: 02/09/18 04:23 02/12/18 05:09 Laboratory Results - last 24 hr 02/11/18 02/12/1818 21:36 01:21 05:09 Sodium 137 Potassium 4.4 Chloride 98 Carbon Dioxide 29.3 Anion Gap 10 BUN 43 H Creatinine 7.30 H Estimated GFR 8 L POC Glucose 159 H 169 H Random Glucose 129 H Calcium 9.8 02/12/18 02/12/18 02/12/18 05:56 11:15 17:27 Sodium Potassium Chloride Carbon Dioxide Anion Gap BUN Creatinine Estimated GFR POC Glucose 152 H 210 H 135 H Random Glucose Calcium - Procedures Left IJ HD tunneled cath placed 02/08/18 by IR Assessment and Plan - Assessment (1) Encephalopathy acute Code(s): G93.40 - Encephalopathy, unspecified Status: Acute (2) Overdose Code(s): T50.901A - Poisoning by unspecified drugs, medicaments and biological substances, accidental (unintentional), initial encounter Status: Acute (3) Suicidal ideation Code(s): R45.851 - Suicidal ideations Status: Acute (4) Delirium tremens Code(s): F10.231 - Alcohol dependence with withdrawal delirium Status: Acute (5) Bilateral pneumothoraces Code(s): J93.9 - Pneumothorax, unspecified Status: Acute (6) Endotracheally intubated Code(s): Z97.8 - Presence of other specified devices Status: Acute (7) Elevated troponin Code(s): R74.8 - Abnormal levels of other serum enzymes Status: Acute (8) Acute renal failure Code(s): N17.9 - Acute kidney failure, unspecified Status: Acute (9) Alcohol abuse Code(s): F10.10 - Alcohol abuse, uncomplicated Status: Acute - Plan - Plan 1. Respiratory insufficiency, status post extubation on 01/25/2018. 2. s/p pneumothoraces on arrival, status post bilateral small bore chest tube placement on 01/15/2018. removed 01/28 3. Acute kidney injury.On Dialysis 4. Leukocytosis. 5. Anemia. 6. NSTEMI 7. Morbid obesity. 8. Hypertension. 9. Diabetes mellitus. 10. s/p seizures. Plan 1. Use oxygen 2 L N/C PRN. 2. Swallow evaluation 3. Aspiration precautions. 4. Up as tolerated 5. Dialysis as planned. 6.Nutrition support. on tube feeds via an NG tube, Nepro @60 mL an hour. 7. PT Evaluation 8. Albuterol Inhaler , 2 puffs TID PRN (2) Overdose Qualifiers: Encounter type: initial encounter Injury intent: undetermined intent Qualified Code(s): T50.904A - Poisoning by unspecified drugs, medicaments and biological substances, undetermined, initial encounter
[2018-02-12] MEDS: Insulin Detemir Inj 1,000 UNIT/10 ML Vial SQ SCH (21:45)
[2018-02-13] MEDS: Oral Hygiene Kit OROPHARYNG SCH ×4 (00:32→16:00)
[2018-02-13] MEDS: Artificial Tears Opth Drops 15 ML Bottle EACH EYE SCH ×4 (00:32→23:30)
[2018-02-13] MEDS: Pantoprazole Inj 40 MG Vial IV.PUSH SCH ×2 (01:30→18:32)
[2018-02-13] MEDS: hydrALAZINE 25 MG Tablet PO SCH ×3 (06:14→23:30)
[2018-02-13] MEDS: Levothyroxine 88 MCG Tablet PO SCH (06:15)
[2018-02-13] MEDS: Senna/Docusate Sodium 8.6/50 MG Tablet PO SCH ×2 (08:20→23:30)
[2018-02-13] MEDS: Calcium Acetate 667 MG Capsule PO SCH ×3 (08:21→18:30)
[2018-02-13] MEDS: Folic Acid 1 MG Tablet PO SCH (08:21)
[2018-02-13] MEDS: levETIRAcetam 500 MG Tablet PO SCH ×2 (08:21→23:30)
[2018-02-13] MEDS: Insulin NovoLOG Aspart Correctional Sugar Inj SQ SCH ×4 (08:32→23:34)
[2018-02-13] MEDS: Chlorhexidine 0.12% Oral Kit 15 ML UDC OROPHARYNG SCH (08:33)
[2018-02-13 08:48] LABS: Calcium 9.9 mg/dL (8.5-10.1); Carbon Dioxide 28.8 meq/L (21.0-32.0); Potassium 4.1 meq/L (3.5-5.1)
[2018-02-13] MEDS: amLODIPine 5 MG Tablet PO SCH (10:49)
[2018-02-13] MEDS: Carvedilol 6.25 MG Tablet PO SCH ×2 (10:49→23:30)
[2018-02-13] MEDS: Heparin 10,000 UNITS/10 ML Vial (for IV use) OTHER PRN (11:38)
--- NOTE | 2018-02-13 12:08 | P.PNIM ---
Subjective Interval history: Follow-up for possible anoxic brain injury, hepatic encephalopathy, end-stage renal disease. Doing well. No acute concerns. No fever , chills. Physical Exam Vital signs: Last Vital Signs Temp 98.6 F 02/13/18 08:00 Pulse 73 02/13/18 08:00 Resp 18 02/13/18 08:00 BP 135/85 02/13/18 08:00 Pulse Ox 99 02/13/18 08:00 Intake & Output 02/11/18 02/12/18 02/13/18 02/14/18 06:59 06:59 06:59 06:59 Intake Total 1201 / 1201 500 / 500 750 / 750 442 / 442 Output Total 1999 / 1999 Balance 1201 / 1201 -1500 / -1500 750 / 750 442 / 442 Weight 96.7 kg 95.7 kg 110.8 kg Narrative: GENERAL: More alert today. No acute distress. SKIN: Warm and dry. HEAD: Normocephalic. EYES: No scleral icterus. No injection or drainage. NECK: Supple, trachea midline. No JVD . CARDIOVASCULAR: Regular rate and rhythm without murmurs, gallops, or rubs. RESPIRATORY: Breath sounds equal bilaterally. Occ wheeze upper chest.No accessory muscle use. GASTROINTESTINAL: Abdomen soft, non-tender, nondistended. MUSCULOSKELETAL: No cyanosis, or edema. Moves feet and arms but weak. Urinary Catheter Management Indwelling Temp Sensing Catheter: Cath placed during this visit: yes, but has since been removed by the nurse Insertion date: 01/14/18 Insertion time: 22:00 Removal date: 01/21/18 Removal time: 18:00 Straight: Cath placed during this visit: no Results Labs CBC & Chem 7: 02/09/18 04:23 02/14/18 04:29 Procedures Procedures: Left IJ HD tunneled cath placed 02/08/18 by IR Assessment and Plan Plan 62-year-old white male who was admitted with cardiogenic shock and acute respiratory failure requiring CPR and epinephrine in the field, after being found down at home and being witnessed to possibly have undergone seizure-like activity. Intubation was attempted in the field but were unable to do so, patient was ultimately intubated in the hospital, started on pressors, placed in the ICU on mechanical ventilation. Found to have bilateral pneumothoraces with chest tubes placed, had developed some pneumoperitoneum which surgically deemed might have been a leak from his chest tubes as opposed to an acute surgical abdomen. Patient was started on antibiotics empirically for possible aspiration pneumonia but was ultimately discontinued off of them by infectious disease. Developed rhabdomyolysis with worsening acute renal failure which became sustained, with the patient now undergoing dialysis. Ultimately was discontinued off pressors, cardiology deferred heart cath due to renal failure. Patient had difficulty following commands after he was discontinued off of sedation and after extubation. Had an MRI done on 01/17 which showed no acute findings, only an older right parietal CVA. EEG was done which was unremarkable. 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 Appeared to be making some mild improvement from a neurological standpoint. He passed a swallow evaluation. Appear to be more alert. Continue rehabilitation efforts with physical therapy/OT/speech Per Neurology, patient can be out of bed. Dysphasia: Related to encephalopathy. Probable anoxic injury from cardiogenic shock and respiratory failure. -Patient pulled out NG tube. Currently on Mechanical soft diet. End-stage renal disease Cont MWF hemodialysis. Nephrology following, looking less likely that his renal function will recover. Once it is determined that he will need permanent dialysis, will have to arrange outpatient dialysis for him. Possible seizure Continue Keppra 500mg PO BID. EEG was negative Non-STEMI Hypertension Troponins elevated to 0.52, 1.89 and 2.37. Cardiology recommended conservative medical management. Continue aspirin, carvedilol 6.25 twice daily, isosorbide dinitrate, atorvastatin 20 mg Continue amlodipine 5 mg daily Bilateral pneumothoraces pneumomediastinum acute respiratory failure chest tubes removed 01/28/2018 Continue oxygen supplementation Appreciate pulmonology following. Patient cannot tolerate BiPAP. Pneumoperitoneum with right retroperitoneal gas/gas around the right kidney Likely secondary to bilateral pneumothoraces with no surgical intervention warranted per general surgery Hepatitis secondary to shock Hepatic steatosis Cirrhosis Possible alcohol abuse Continue thiamine Continue folic acid Continue beta-blockers diabetes mellitus Diabetic diet Continue Aspart Sliding scale insulin. Will add low dose Levemir. Goal BG 140-180. hypothyroidism continue levothyroxine Normocytic anemia Status post PRBC transfusion. H&H stable around 8. Full code. Heparin SQ. Progress Note: Quality VTE Deep Vein Thrombosis/Pulmonary Embolism Present on Admission: No
[2018-02-13] MEDS: Dextrose 5%/NaCl 0.9% Inj 1,000 ML IV.CONT SCH (13:42)
--- NOTE | 2018-02-13 19:28 | P.PN ---
Subjective Interval history: No new pulmonary problems. Off O2. More alert and coherent. able to move feet better. Went for dialysis. Physical Exam Vital signs: Vital Signs 02/12/18 20:00 02/12/18 21:20 02/13/18 00:59 Temperature 98.0 F Pulse Rate 76 80 76 Respiratory Rate 18 Blood Pressure 174/96 H Pulse Oximetry 94 L 94 L 02/13/18 02:07 02/13/18 04:41 02/13/18 05:36 Temperature 97.6 F 97.5 F L Pulse Rate 76 78 Respiratory Rate 18 18 Blood Pressure 155/82 H 169/83 H Pulse Oximetry 97 93 L 97 02/13/18 08:00 02/13/18 14:21 02/13/18 18:10 Temperature 98.6 F 98.3 F 98.1 F Pulse Rate 73 91 H 73 Respiratory Rate 18 20 18 Blood Pressure 135/85 127/76 123/69 Pulse Oximetry 99 93 L 99 Intake & Output 02/13/18 02/13/18 02/14/18 06:59 18:59 06:59 Intake Total 792 / 792 Output Total 1999 Balance -1208 / -1208 Weight 110.8 kg Intake: Oral 442 / 442 Other 350 / 350 Output: Urine 0 / 0 Pleural Fluid 0 / 0 Hemodialysis Amount 1999 Urine Amount (Catheter) 0 / 0 Indwelling Temp Sensing 0 / 0 Catheter Straight 0 / 0 Other: Other Intake Source Saline Solution # Voids 1 # Incontinent Voids 2 2 # Urine Diapers 1 Date of Last Bowel Movement 02/12/18 Narrative: GENERAL: alert and talking .No acute distress. SKIN: Warm and dry. HEAD: Normocephalic. EYES: No scleral icterus. No injection or drainage. NECK: Supple, trachea midline. No JVD . CARDIOVASCULAR: Regular rate and rhythm without murmurs, gallops, or rubs. RESPIRATORY: Breath sounds equal bilaterally. Occ wheeze upper chest.No accessory muscle use. GASTROINTESTINAL: Abdomen soft, non-tender, nondistended. MUSCULOSKELETAL: No cyanosis, or edema. Moves feet and arms but weak. - Urinary Catheter Management Indwelling Temp Sensing Catheter Cath placed during this visit: yes, but has since been removed by the nurse Reason for continuing: Decision to DC catheter Insertion date: 11/12/18 Insertion time: 22:00 Removal date: 01/21/18 Removal time: 18:00 Straight Cath placed during this visit: no Results - Labs CBC & Chem 7: 02/09/18 04:23 02/13/18 07:48 Laboratory Results - last 24 hr 02/12/18 02/13/18 02/13/18 21:34 07:48 08:18 Sodium 135 L Potassium 4.1 Chloride 95 L Carbon Dioxide 28.8 Anion Gap 11 BUN 51 H Creatinine 8.87 H Estimated GFR 6 L POC Glucose 148 H 158 H Random Glucose 145 H Calcium 9.9 02/13/18 11:44 Sodium Potassium Chloride Carbon Dioxide Anion Gap BUN Creatinine Estimated GFR POC Glucose 111 H Random Glucose Calcium - Imaging Impressions Catheter Placement 02/08/18 00:00 CONCLUSION: 1. Uncomplicated line placement as above. - Procedures Left IJ HD tunneled cath placed 02/08/18 by IR Assessment and Plan - Assessment (1) Encephalopathy acute Code(s): G93.40 - Encephalopathy, unspecified Status: Acute (2) Overdose Code(s): T50.901A - Poisoning by unspecified drugs, medicaments and biological substances, accidental (unintentional), initial encounter Status: Acute (3) Suicidal ideation Code(s): R45.851 - Suicidal ideations Status: Acute (4) Delirium tremens Code(s): F10.231 - Alcohol dependence with withdrawal delirium Status: Acute (5) Bilateral pneumothoraces Code(s): J93.9 - Pneumothorax, unspecified Status: Acute (6) Endotracheally intubated Code(s): Z97.8 - Presence of other specified devices Status: Acute (7) Elevated troponin Code(s): R74.8 - Abnormal levels of other serum enzymes Status: Acute (8) Acute renal failure Code(s): N17.9 - Acute kidney failure, unspecified Status: Acute (9) Alcohol abuse Code(s): F10.10 - Alcohol abuse, uncomplicated Status: Acute - Plan - Plan 1. Respiratory insufficiency, status post extubation on 01/25/2018. 2. s/p pneumothoraces on arrival, status post bilateral small bore chest tube placement on 01/15/2018. removed 01/28 3. Acute kidney injury.On Dialysis 4. Leukocytosis. 5. Anemia. 6. NSTEMI 7. Morbid obesity. 8. Hypertension. 9. Diabetes mellitus. 10. s/p seizures. Plan 1. D/C oxygen 2. Swallow evaluation 3. Labs in am 4. Up as tolerated 5. Dialysis as planned. 6. Cont tube feeds via an NG tube, Nepro @50 mL an hour. 7. PT Evaluation 8. Albuterol Inhaler , 2 puffs TID PRN (2) Overdose Qualifiers: Encounter type: initial encounter Injury intent: undetermined intent Qualified Code(s): T50.904A - Poisoning by unspecified drugs, medicaments and biological substances, undetermined, initial encounter
[2018-02-13] MEDS: Insulin Detemir Inj 1,000 UNIT/10 ML Vial SQ SCH (23:30)
--- NOTE | 2018-02-13 23:31 | HM ---
Date Performed: 02/11/2018 Time Performed: 10:32:00 HOOKUP DATE: 02/11/18 10:32:00 AM Mon ANALYSIS START TIME: 02/11/2018 10:37:00 AM ANALYSIS END TIME: 02/12/2018 9:51:29 AM PATIENT AGE: 62 PATIENT HEIGHT: 70 PATIENT WEIGHT: 213 DRUG LIST: ROOM 1501 PATIENT DIAGNOSIS: NEURO TEST NARRATIVE: The patient's average heart rate was 89 BPM. No episodes of tachycardia wer e noted. No episodes of bradycardia were noted. No pauses exceeding 2.0 seconds were noted. 27 ventricular ectopics, which represented < 1% of the total beat count, were noted. The highest jamia tricular ectopic frequency occurred from 08:00 PM to 09:00 PM Mon. During this time 9 VE(s) occurred . Ventricular ectopics were observed as 27 isolated beat(s) only. No couplets or runs were noted. 38 supraventricular ectopics, which represented < 1% of the total beat count, were noted. The hig hest supraventricular ectopic frequency occurred from 01:00 AM to 02:00 AM Tu. During this time 12 SVE(s) occurred. No episodes of ST depression (defined as -1.0 mm or more) were noted in channel 1. No episodes of ST depression (defined as -1.0 mm or more) were noted in channel 2. No episodes o f ST depression (defined as -1.0 mm or more) were noted in channel 3. NO DIARY WAS GIVEN TO PATIENT TEST INTERPRETATION: Normal Sinus rhythm . Occasional PVC(s), occasional APC(s) No prolonged pauses > 2 seconds. Signed by : David Rapp
[2018-02-14] MEDS: Chlorhexidine 0.12% Oral Kit 15 ML UDC OROPHARYNG SCH ×3 (01:13→21:55)
[2018-02-14] MEDS: Oral Hygiene Kit OROPHARYNG SCH ×4 (01:18→17:35)
[2018-02-14] MEDS: Pantoprazole Inj 40 MG Vial IV.PUSH SCH ×2 (03:04→14:29)
[2018-02-14] MEDS: Dextrose 5%/NaCl 0.9% Inj 1,000 ML IV.CONT SCH ×2 (04:03→21:55)
[2018-02-14] MEDS: Levothyroxine 88 MCG Tablet PO SCH (05:54)
[2018-02-14] MEDS: hydrALAZINE 25 MG Tablet PO SCH ×3 (05:54→22:01)
[2018-02-14 07:42] LABS: Calcium 9.3 mg/dL (8.5-10.1); Carbon Dioxide 31.3 meq/L (21.0-32.0); Potassium 4.1 meq/L (3.5-5.1)
[2018-02-14] MEDS: Insulin NovoLOG Aspart Correctional Sugar Inj SQ SCH ×4 (08:24→21:58)
[2018-02-14] MEDS: Senna/Docusate Sodium 8.6/50 MG Tablet PO SCH ×2 (10:47→21:56)
[2018-02-14] MEDS: levETIRAcetam 500 MG Tablet PO SCH ×2 (10:47→21:56)
[2018-02-14] MEDS: Artificial Tears Opth Drops 15 ML Bottle EACH EYE SCH ×2 (10:47→17:36)
[2018-02-14] MEDS: amLODIPine 5 MG Tablet PO SCH (10:47)
[2018-02-14] MEDS: Carvedilol 6.25 MG Tablet PO SCH ×2 (10:47→21:56)
[2018-02-14] MEDS: Calcium Acetate 667 MG Capsule PO SCH ×3 (10:47→17:36)
[2018-02-14] MEDS: Folic Acid 1 MG Tablet PO SCH (10:48)
[2018-02-14] MEDS ORDERED: Tuberculin PPD 5 UNITS/0.1 ML Syringe I-DERMAL ONE (14:40)
--- NOTE | 2018-02-14 16:18 | P.PNPAL ---
Reason for Visit Reason for visit: a. To assist with evaluation and management of symptoms including: Dysphasia, weakness b. To assist medical decision maker(s) with: better understanding of current medical conditions; weighing benefits/burdens of medical treatment options; making medical treatment decisions. Subjective Subjective/Interval History: This is a 62-year-old male who presented to [facility] 01/14/2018 via EMS for altered mental status and seizures. He has had multiple admissions to [facility] in 2018 mostly for alcohol intoxication the most recent was 4 days prior to this current admission. He has a long history of alcoholism. His reports he drinks 1 L of vodka daily. While in the ED he became obtunded and began vomiting dark material. Due to his inability to protect his airway, he was intubated. After the initial intubation he became combative and dislodged the tube acquiring removal of the initial ET tube and replacement of a second tube. After intubation, he subsequently went into cardiopulmonary arrest with ROSC after 2 cycles of CPR. Post CPR he was found to have significant subcu emphysema and was emergently sent to CT with CT of the head, chest and abdomen showed bilateral tension pneumothoraces as well as free air in the peritoneal cavity. Bilateral chest tubes were placed immediately and he was transferred to ICU where he arrested again and again had spontaneous return of circulation. Labs showed acute kidney injury, presumed to be from severe dehydration and aggressive IV fluid resuscitation was initiated. He was also found to have severe sepsis and vancomycin and cefepime were initiated with an infectious disease consultation and blood cultures. He remained critically ill requiring maximum doses of vasopressor support to include norepinephrine, vasopressin and epinephrine with subsequent worsening of his renal indices, eventually requiring dialysis. He initially required Flolan in addition to aggressive APRV mode of ventilation and after an 11-day course of intubation was subsequently extubated 01/25/2018. Patient seen today for medically necessary follow-up of dysphasia and weakness. Patient continues to fail thin liquid trials with speech therapy and remains on mechanical soft diet with nectar thickened liquids, possibly due to cognitive impairment. He developed immediate post swallow cough after single sip via straw. Post swallow cough effort 3/10 with wet vocal quality persisting after final trials. When attempting solid cracker ingestion he demonstrated prolonged mastication and attempted to talk during mastication resulting in difficulty with bolus control. He remains at elevated risk for aspiration. Patient's cognitive impairment continues to interfere with his ability and cooperation in therapy. His effort varies from requiring maximum assistance to sit on the bedside to only requiring contact guard to remain sitting. With changes in cognition he becomes passive and not cooperative. With the assistance of 3 physical therapist he was able to stand 3-4 seconds. He is able to lay back down in bed without assistance. Left arm remains flaccid. He has full gross movement of the right arm, however has decreased fine motor control. . Family/Friend Interactions: No family at bedside today. . Advance Directives Living Will: Never completed Health Care Surrogate: Never completed Durable Power of [place]: Never completed Objective Vital Signs: Vital Signs 02/13/18 18:10 02/13/18 20:00 02/14/18 00:00 Temperature 98.1 F 98.4 F 98.3 F Pulse Rate 73 90 90 Respiratory Rate 18 20 20 Blood Pressure 123/69 130/74 116/74 Pulse Oximetry 99 94 L 92 L 02/14/18 00:20 02/14/18 02:00 02/14/18 04:00 Temperature 97.9 F Pulse Rate 73 Respiratory Rate 16 20 Blood Pressure 145/82 H Pulse Oximetry 95 98 02/14/18 07:39 02/14/18 08:00 02/14/18 08:05 Temperature 97.3 F L Pulse Rate 77 81 Respiratory Rate 20 Blood Pressure 136/77 Pulse Oximetry 94 L 92 L 02/14/18 11:20 02/14/18 12:00 Temperature 97.8 F Pulse Rate 96 H 102 H Respiratory Rate 20 Blood Pressure 124/70 Pulse Oximetry 92 L Intake & Output 02/13/18 02/14/18 02/14/18 18:59 06:59 18:59 Intake Total 792 / 792 Output Total 1999 Balance -1208 / -1208 Weight 217 lb 9.54 oz Intake: Oral 442 / 442 Other 350 / 350 Output: Urine 0 / 0 Pleural Fluid 0 / 0 Hemodialysis Amount 1999 Urine Amount (Catheter) 0 / 0 Indwelling Temp Sensing 0 / 0 Catheter Straight 0 / 0 Other: Other Intake Source Saline Solution # Voids 1 # Incontinent Voids 2 # Urine Diapers 1 Date of Last Bowel Movement 02/13/18 Physical Exam: CONSTITUTIONAL/GENERAL: This is an overweight male patient, lying in bed, lethargic, in no apparent distress. TUBES/LINES/DRAINS: PIV, right Perma-Cath CARDIOVASCULAR: Regular rate and rhythm without murmurs, gallops, or rubs. No JVD. Peripheral pulses symmetric. RESPIRATORY/CHEST: Symmetric, unlabored respirations. Lungs clear, diminished. Excessive oral secretions. GASTROINTESTINAL: Abdomen soft, non-tender, nondistended. No hepato-splenomegaly , or palpable masses. No guarding. Bowel sounds present. GENITOURINARY: Without palpable bladder distension. MUSCULOSKELETAL: Left upper extremity weak, able to move hand and forearm weekly , unable to raise arm, falls back to the bed when passively raised and released. Right upper extremity with full ROM, generalized weakness, BLE generalized weakness. NEUROLOGICAL: Alert, some answers are appropriate, oriented to place, self with poor insight. PSYCHIATRIC: Calm, interactive, appropriate. . Diagnostic Tests Laboratory: Laboratory Results - last 72 hr 02/11/18 02/11/18 02/11/18 15:24 17:03 21:36 Sodium Potassium Chloride Carbon Dioxide Anion Gap BUN Creatinine Estimated GFR POC Glucose 119 H 159 H Random Glucose Calcium Triglycerides 193 H Cholesterol 118 L LDL Cholesterol, Calc 41 HDL Cholesterol 38.1 L Cholesterol/HDL Ratio 3.09 02/12/18 02/12/18 02/12/18 01:21 05:09 05:56 Sodium 137 Potassium 4.4 Chloride 98 Carbon Dioxide 29.3 Anion Gap 10 BUN 43 H Creatinine 7.30 H Estimated GFR 8 L POC Glucose 169 H 152 H Random Glucose 129 H Calcium 9.8 Triglycerides Cholesterol LDL Cholesterol, Calc HDL Cholesterol Cholesterol/HDL Ratio 02/12/18 02/12/18 02/12/18 11:15 17:27 21:34 Sodium Potassium Chloride Carbon Dioxide Anion Gap BUN Creatinine Estimated GFR POC Glucose 210 H 135 H 148 H Random Glucose Calcium Triglycerides Cholesterol LDL Cholesterol, Calc HDL Cholesterol Cholesterol/HDL Ratio 02/13/18 02/13/18 02/13/18 07:48 08:18 11:44 Sodium 135 L Potassium 4.1 Chloride 95 L Carbon Dioxide 28.8 Anion Gap 11 BUN 51 H Creatinine 8.87 H Estimated GFR 6 L POC Glucose 158 H 111 H Random Glucose 145 H Calcium 9.9 Triglycerides Cholesterol LDL Cholesterol, Calc HDL Cholesterol Cholesterol/HDL Ratio 02/13/18 02/14/18 02/14/18 23:18 04:29 07:56 Sodium 134 L Potassium 4.1 Chloride 96 L Carbon Dioxide 31.3 Anion Gap 7 BUN 27 H Creatinine 6.36 H Estimated GFR 9 L POC Glucose 109 116 H Random Glucose 96 Calcium 9.3 Triglycerides Cholesterol LDL Cholesterol, Calc HDL Cholesterol Cholesterol/HDL Ratio 02/14/18 12:45 Sodium Potassium Chloride Carbon Dioxide Anion Gap BUN Creatinine Estimated GFR POC Glucose 293 H Random Glucose Calcium Triglycerides Cholesterol LDL Cholesterol, Calc HDL Cholesterol Cholesterol/HDL Ratio Result Diagrams: 02/09/18 04:23 02/14/18 04:29 Imaging: ITS Impressions Cervical Spine CT 01/14/18 21:58 CONCLUSION: 1. No acute fracture or malalignment. 2. Subcutaneous emphysema again noted as well as the known right pneumothorax. Head CT 01/14/18 21:58 CONCLUSION: 1. No acute hemorrhage or mass effect. 2. Stable area of encephalomalacia in the right lateral lobe. . Abdomen/Bladder Ultrasound 01/16/18 00:00 CONCLUSION: 1. Trace ascites. 2. Negative renal ultrasound Abdomen/Pelvis CT 01/16/18 00:00 CONCLUSION: 1. Minimal free intraperitoneal air. I don't see etiology for such 2. Dense consolidation both lung bases with small bilateral chest tubes 3. Trace pneumothorax on the left. No pneumothorax on the right. 4. Moderate fatty replacement to the liver with prominent gallbladder Chest CT 01/16/18 00:00 . CONCLUSION: 1. Dense consolidation in both lung bases small bore chest tubes evident. 2. Trace pneumothorax on the left 3. No significant fluid. Cervical Spine MRI 01/27/18 00:00 CONCLUSION: 1. No fracture or subluxation seen of the cervical spine but there is edema in the erector spinae muscles, especially on the right at the level of the upper cervical spine. This is nonspecific but presumably related to an acute or subacute strain. Localized early denervation would be conceivable but I don't see any atrophy. 2. There is an age-indeterminate left foraminal disc protrusion at C3/C4 that is probably impinging on the transiting left C4 nerve root. 3. Multilevel degenerative changes that otherwise appear chronic, as described. Associated high-grade foraminal stenosis on the right at C4/C5, bilateral at C5/C6 and C6/C7. No high-grade spinal stenosis demonstrated. Head MRI 01/27/18 00:00 CONCLUSION: 1. Remote right posterior parietal mid convexity infarct. 2. Mild cerebral atrophy with mild periventricular ischemic white matter demyelination. 3. Stable paranasal sinus mucosal disease and mastoiditis. 4. No acute abnormality. Specifically, no acute infarction or hemorrhage. Abdomen X-Ray 01/28/18 00:00 CONCLUSION: Mild gaseous distention of bowel. Carotid Doppler Study 01/28/18 00:00 CONCLUSION: 1. Right Internal Carotid Artery: No significant stenosis or atherosclerotic plaque is visualized. 2. Left Internal Carotid Artery: No significant stenosis or atherosclerotic plaque is visualized. Venous Doppler Study 02/05/18 00:00 CONCLUSION: No venous thrombosis is identified within the left upper extremity. Chest X-Ray 02/06/18 00:00 CONCLUSION: There is mild bibasilar airspace opacity that has not significantly changed from the prior study. The appearance suggests either subsegmental atelectasis or consolidation. No pleural effusion is present. Catheter Placement 02/08/18 00:00 CONCLUSION: 1. Uncomplicated line placement as above. Tube Removal 02/08/18 00:00 CONCLUSION: 1. Uncomplicated catheter removal. Procedures: 01/14: Intubation x2 01/14: Right and left chest tube placement 01/14: Right brachial arterial line placement 01/14: Right subclavian central line placement 01/17: Placement of L IJ hemodialysis catheter. Assessment and Plan - Disease Oriented Problem List (1) Delirium tremens (2) Bilateral pneumothoraces (3) Endotracheally intubated (4) Elevated troponin (5) Acute renal failure (6) Alcohol abuse (7) Alcohol withdrawal seizure with complication (8) Rhabdomyolysis Pertinent Non-Medical Issues: Psychosocial: He lived in many states growing up. 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 He has been once to his current , from who he is now and has no children. 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 Legal: No advance directives completed. Ethical issues impacting care: Patient does not appear capacitated for decision- making. . Important Contacts: : Tressa Canseco [phone] Sister: Lala Canseco . Prognosis: His prognosis is guarded. He still has significant deficits and is at risk for recurrent complications, infections and decline. At this time he has multisystem organ compromise to include cardiogenic shock status post AR on admission with cardiac arrest x2, respiratory insufficiency, acute kidney injury on hemodialysis and hepatitis secondary to shock. It is the opinion of nephrology that his renal failure is caused by his cardiac failure equating to cardiorenal syndrome. He has left-sided weakness and appears aphasic at this time. Pending speech therapy evaluation. He was previously too unstable from a respiratory standpoint to undergo evaluation. He is at significant risk for continued complications and decline. . Code Status: Full Code Plan: PLAN: Legal decision maker: At this time the patient is not capacitated for decision-making and it is uncertain whether he statutes, his Tressa would be his proxy decision-maker. Goals: Aggressive at this time. CODE STATUS: FULL CODE SYMPTOMS: * Dysphasia: Speech therapy has evaluated and found him to have mild oropharyngeal dysphasia and has placed him on a mechanical soft diet with nectar thickened liquids. He has failed repeated attempts at thin liquids by the teaspoon. He is seen to have difficulty controlling food boluses in his mouth due to erratic cognition. He intermittently forgets what he is doing and starts talking while chewing. He requires feeding. Speech therapy continues to follow. He continues to lose weight with admission weight 271 pounds, today' s weight 217 pounds, a loss of 54 pounds in 28 days, but BMI remains at 31.2, still in the obese range. * Weakness: Bilateral upper extremity weakness left greater than right. Requiring physical therapy 7 days a week. Also receiving OT and ST. He is able to move his left hand but not lift his arm, right arm remains grossly weak with some movement. He is dependent for all ADLs and cannot feed himself, whether due to weakness or cognitive impairment is unclear. Physical therapy is recommended, however patient has no payer source so placement would have to be on a chauncey basis. As his dialysis is considered acute and not chronic at this time, [facility] health care states he cannot apply for disability. Placement is likely to be difficult. Palliative care will continue to follow the patient during hospital course as condition evolves, to assist patient/decision-maker with understanding of their medical conditions, weighing benefits/burdens of treatment options, for clarification of goals of treatment. Additionally will assist with any symptoms of palliative concern. . Attestation Attestation: To help prompt me to consider important information that might be impacting today's encounter and assessment, information from prior notes written by myself or my colleagues may have been "brought forward" into today's note. My signature on this note, however, is an attestation that I personally performed the exam, history, and/or decision-making noted today, and, unless otherwise indicated, the interactions with patient, family, and staff as well as the review of records all occurred today. I also attest that the listed assessment and stated plan reflect my best clinical judgment today based on the combination of historical information, prior notes, and today's exam/ interactions. When time spent is documented, it refers only to time spent today by the signer, or if indicated, combined time spent today by collaborating physician/nurse practitioner. .
--- NOTE | 2018-02-14 18:21 | P.PN ---
Subjective Interval history: Alert and talking. No resp distress off O2. Moves feet and right arm well. Physical Exam Vital signs: Vital Signs 02/13/18 20:00 02/14/18 00:00 02/14/18 00:20 Temperature 98.4 F 98.3 F Pulse Rate 90 90 Respiratory Rate 20 20 Blood Pressure 130/74 116/74 Pulse Oximetry 94 L 92 L 95 02/14/18 02:00 02/14/18 04:00 02/14/18 07:39 Temperature 97.9 F Pulse Rate 73 Respiratory Rate 16 20 Blood Pressure 145/82 H Pulse Oximetry 98 94 L 02/14/18 08:00 02/14/18 08:05 02/14/18 11:20 Temperature 97.3 F L 97.8 F Pulse Rate 77 81 96 H Respiratory Rate 20 20 Blood Pressure 136/77 124/70 Pulse Oximetry 92 L 92 L 02/14/18 12:00 02/14/18 16:00 02/14/18 17:27 Temperature 98.0 F Pulse Rate 102 H 93 H Respiratory Rate 20 Blood Pressure 116/66 Pulse Oximetry 91 L 91 L Intake & Output 02/13/18 02/14/18 02/14/18 18:59 06:59 18:59 Intake Total 792 / 792 Output Total 1999 Balance -1208 / -1208 - Weight 98.7 kg Intake: Oral 442 / 442 Other 350 / 350 Output: Urine 0 / 0 Stool / Pleural Fluid 0 / 0 Hemodialysis Amount 1999 Urine Amount (Catheter) 0 / 0 Indwelling Temp Sensing 0 / 0 Catheter Straight 0 / 0 Other: Other Intake Source Saline Solution # Voids 1 # Incontinent Voids 2 # Urine Diapers 1 Date of Last Bowel Movement 02/13/18 02/14/18 Narrative: GENERAL: alert and talking .No acute distress. SKIN: Warm and dry. HEAD: Normocephalic. EYES: No scleral icterus. No injection or drainage. NECK: Supple, trachea midline. No JVD . CARDIOVASCULAR: Regular rate and rhythm without murmurs, gallops, or rubs. RESPIRATORY: Breath sounds equal bilaterally. no wheezes..No accessory muscle use. GASTROINTESTINAL: Abdomen soft, non-tender, nondistended. MUSCULOSKELETAL: No cyanosis, or edema. Moves feet and arms but weak on left . - Urinary Catheter Management Indwelling Temp Sensing Catheter Cath placed during this visit: yes, but has since been removed by the nurse Reason for continuing: Decision to DC catheter Insertion date: 01/14/18 Insertion time: 22:00 Removal date: 01/21/18 Removal time: 18:00 Straight Cath placed during this visit: no Results - Labs CBC & Chem 7: 02/09/18 04:23 02/14/18 04:29 Laboratory Results - last 24 hr 02/13/18 02/14/18 02/14/18 23:18 04:29 07:56 Sodium 134 L Potassium 4.1 Chloride 96 L Carbon Dioxide 31.3 Anion Gap 7 BUN 27 H Creatinine 6.36 H Estimated GFR 9 L POC Glucose 109 116 H Random Glucose 96 Calcium 9.3 02/14/18 02/14/18 12:45 17:42 Sodium Potassium Chloride Carbon Dioxide Anion Gap BUN Creatinine Estimated GFR POC Glucose 293 H 142 H Random Glucose Calcium - Procedures Left IJ HD tunneled cath placed 02/08/18 by IR Assessment and Plan - Assessment (1) Encephalopathy acute Code(s): G93.40 - Encephalopathy, unspecified Status: Acute (2) Overdose Code(s): T50.901A - Poisoning by unspecified drugs, medicaments and biological substances, accidental (unintentional), initial encounter Status: Acute (3) Suicidal ideation Code(s): R45.851 - Suicidal ideations Status: Acute (4) Delirium tremens Code(s): F10.231 - Alcohol dependence with withdrawal delirium Status: Acute (5) Bilateral pneumothoraces Code(s): J93.9 - Pneumothorax, unspecified Status: Acute (6) Endotracheally intubated Code(s): Z97.8 - Presence of other specified devices Status: Acute (7) Elevated troponin Code(s): R74.8 - Abnormal levels of other serum enzymes Status: Acute (8) Acute renal failure Code(s): N17.9 - Acute kidney failure, unspecified Status: Acute (9) Alcohol abuse Code(s): F10.10 - Alcohol abuse, uncomplicated Status: Acute - Plan - Plan 1. Respiratory insufficiency, status post extubation on 01/25/2018. 2. s/p pneumothoraces on arrival, status post bilateral small bore chest tube placement on 01/15/2018. removed 11/26 3. Acute kidney injury.On Dialysis 4. Leukocytosis. 5. Anemia. 6. NSTEMI 7. Morbid obesity. 8. Hypertension. 9. Diabetes mellitus. 10. s/p seizures. Plan 1. Albuterol Inhaler , 2 puffs TID PRN 2. Swallow evaluation and diet 3. Labs in am 4. Up as tolerated 5. Dialysis as planned. 6. Cont tube feeds via an NG tube, Nepro @50 mL an hour. 7. PT Evaluation (2) Overdose Qualifiers: Encounter type: initial encounter Injury intent: undetermined intent Qualified Code(s): T50.904A - Poisoning by unspecified drugs, medicaments and biological substances, undetermined, initial encounter
[2018-02-14 21:39] LABS: Hepatitis A IgM Antibody Nonreactive (Nonreactive); Hepatitits B Surface Antigen Nonreactive (Nonreactive)
[2018-02-14] MEDS: Insulin Detemir Inj 1,000 UNIT/10 ML Vial SQ SCH (22:02)
[2018-02-15] MEDS: Oral Hygiene Kit OROPHARYNG SCH ×4 (00:05→16:02)
[2018-02-15] MEDS: Artificial Tears Opth Drops 15 ML Bottle EACH EYE SCH ×3 (00:08→16:02)
[2018-02-15] MEDS: Pantoprazole Inj 40 MG Vial IV.PUSH SCH ×2 (03:12→15:01)
[2018-02-15] MEDS: hydrALAZINE 25 MG Tablet PO SCH ×3 (05:29→21:02)
[2018-02-15] MEDS: Levothyroxine 88 MCG Tablet PO SCH (05:29)
[2018-02-15 06:37] LABS: Calcium 9.6 mg/dL (8.5-10.1); Carbon Dioxide 31.2 meq/L (21.0-32.0); Potassium 4.2 meq/L (3.5-5.1)
[2018-02-15] MEDS: Insulin NovoLOG Aspart Correctional Sugar Inj SQ SCH ×4 (09:47→23:30)
[2018-02-15] MEDS: Chlorhexidine 0.12% Oral Kit 15 ML UDC OROPHARYNG SCH ×2 (09:48→21:03)
[2018-02-15] MEDS: Folic Acid 1 MG Tablet PO SCH (09:49)
[2018-02-15] MEDS: Carvedilol 6.25 MG Tablet PO SCH ×2 (09:49→21:02)
[2018-02-15] MEDS: Calcium Acetate 667 MG Capsule PO SCH ×3 (09:49→18:22)
[2018-02-15] MEDS: amLODIPine 5 MG Tablet PO SCH (09:49)
[2018-02-15] MEDS: levETIRAcetam 500 MG Tablet PO SCH ×2 (09:49→21:03)
[2018-02-15] MEDS: Senna/Docusate Sodium 8.6/50 MG Tablet PO SCH ×2 (09:49→21:02)
--- NOTE | 2018-02-15 11:52 | P.DIET ---
Nutritional Evaluation Type of nutrition evaluation: follow-up Nutrition consult regarding: Tube Feeding (TFing stopped) Nutrition screening: [facility] [place] (02/05 Calorie Counting) Subjective Subjective Comments: Variable po intake noted 25-75%. Needs full assist at meals. Objective - Diagnosis Seizures/Respiratory Distress/Intubated - Objective % IBW: 150 Body Weight Used for Calculations: IBW (75.5 kg) Energy Needs - Lower Range (kCal/kg): 30 Energy Needs - Upper Range (kCal/kg): 35 Lower Limit kCal/kg (kCals): 2,264 Upper Limit kCal/kg (kCals): 2,643 Lower Limit Protein Factor (Grams per Kg): 1.2 Upper Limit Protein Factor (Grams per Kg): 1.5 Lower Protein Needs (Protein): 91 Upper Protein Needs (Protein): 113 Dietitian Reviewed in Medical Record: Current diet, Curent medications, Intake & Output, Labs, Medical history Diet Order: NPO Speech Therapy Recommendations: Yes (ST following) Objective Comments: PMH includes: Anxiety, CVA, DM, ETOH Abuse, HTN, Alcohol Abuse HgA1c 7.5 (01/31) Assessment Assessment: Pt's TF stopped 02/03 when ng-t was pulled out. ST recommends mechanical soft, with nectar thickened liquids. Pt is dialysis dependent. PO intake appears to be inadequate evidenced by weight loss. CBW = 95.5 kg. Recommend supplemental TF be considered. Labs, wts and clinical course reviewed. Recommendations: 1. Diet texture per ST 2. Please increase diet to 2200 ADA 3. Consider TF Dietitian to Monitor: Lab values, Intake & Output, Weight change, PO Intake, Diet advancement, Swallow recommendations, Medical course
[2018-02-15] MEDS: Heparin 10,000 UNITS/10 ML Vial (for IV use) OTHER PRN (12:31)
--- NOTE | 2018-02-15 14:49 | P.PNIM ---
Subjective Interval history: Late entry for 02/14/2018 Follow-up for possible anoxic brain injury, hepatic encephalopathy, end-stage renal disease. Doing well. No acute concerns. Physical Exam Vital signs: Last Vital Signs Temp 98.2 F 02/15/18 14:11 Pulse 88 02/15/18 14:11 Resp 18 02/15/18 14:11 BP 157/87 H 02/15/18 14:11 Pulse Ox 94 L 02/15/18 14:11 Intake & Output 02/13/18 02/14/18 02/15/18 02/16/18 06:59 06:59 06:59 06:59 Intake Total 750 / 750 792 / 792 Output Total 1999 2500 / 2500 Balance 750 / 750 -1208 / -1208 - -2499 / -2500 Weight 110.8 kg 98.7 kg 95.5 kg Narrative: GENERAL: More alert today. No acute distress. SKIN: Warm and dry. HEAD: Normocephalic. EYES: No scleral icterus. No injection or drainage. NECK: Supple, trachea midline. No JVD . CARDIOVASCULAR: Regular rate and rhythm without murmurs, gallops, or rubs. RESPIRATORY: Breath sounds equal bilaterally. Occ wheeze upper chest.No accessory muscle use. GASTROINTESTINAL: Abdomen soft, non-tender, nondistended. MUSCULOSKELETAL: No cyanosis, or edema. Moves feet and arms but weak. Urinary Catheter Management Indwelling Temp Sensing Catheter: Cath placed during this visit: yes, but has since been removed by the nurse Insertion date: 01/14/18 Insertion time: 22:00 Removal date: 01/21/18 Removal time: 18:00 Straight: Cath placed during this visit: no Results Labs CBC & Chem 7: 02/09/18 04:23 02/15/18 05:00 Procedures Procedures: Left IJ HD tunneled cath placed 02/08/18 by IR Assessment and Plan Plan 62-year-old white male who was admitted with cardiogenic shock and acute respiratory failure requiring CPR and epinephrine in the field, after being found down at home and being witnessed to possibly have undergone seizure-like activity. Intubation was attempted in the field but were unable to do so, patient was ultimately intubated in the hospital, started on pressors, placed in the ICU on mechanical ventilation. Found to have bilateral pneumothoraces with chest tubes placed, had developed some pneumoperitoneum which surgically deemed might have been a leak from his chest tubes as opposed to an acute surgical abdomen. Patient was started on antibiotics empirically for possible aspiration pneumonia but was ultimately discontinued off of them by infectious disease. Developed rhabdomyolysis with worsening acute renal failure which became sustained, with the patient now undergoing dialysis. Ultimately was discontinued off pressors, cardiology deferred heart cath due to renal failure. Patient had difficulty following commands after he was discontinued off of sedation and after extubation. Had an MRI done on 01/17 which showed no acute findings, only an older right parietal CVA. EEG was done which was unremarkable. 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 Appeared to be making some mild improvement from a neurological standpoint. He passed a swallow evaluation. Appear to be more alert. Continue rehabilitation efforts with physical therapy/OT/speech Per Neurology, patient can be out of bed. Dysphasia: Related to encephalopathy. Probable anoxic injury from cardiogenic shock and respiratory failure. -Patient pulled out NG tube. Currently on Mechanical soft diet. End-stage renal disease Cont MWF hemodialysis. Nephrology following, looking less likely that his renal function will recover. Once it is determined that he will need permanent dialysis, will have to arrange outpatient dialysis for him. Possible seizure Continue Keppra 500mg PO BID. EEG was negative Non-STEMI Hypertension Troponins elevated to 0.52, 1.89 and 2.37. Cardiology recommended conservative medical management. Continue aspirin, carvedilol 6.25 twice daily, isosorbide dinitrate, atorvastatin 20 mg Continue amlodipine 5 mg daily Bilateral pneumothoraces pneumomediastinum acute respiratory failure chest tubes removed 01/28/2018 Continue oxygen supplementation Appreciate pulmonology following. Patient cannot tolerate BiPAP. Pneumoperitoneum with right retroperitoneal gas/gas around the right kidney Likely secondary to bilateral pneumothoraces with no surgical intervention warranted per general surgery Hepatitis secondary to shock Hepatic steatosis Cirrhosis Possible alcohol abuse Continue thiamine Continue folic acid Continue beta-blockers diabetes mellitus Diabetic diet Continue Aspart Sliding scale insulin. Will add low dose Levemir. Goal BG 140-180. hypothyroidism continue levothyroxine Normocytic anemia Status post PRBC transfusion. H&H stable around 8. Full code. Heparin SQ. 02/14/2018: No acute changes in management. Progress Note: Quality VTE Deep Vein Thrombosis/Pulmonary Embolism Present on Admission: No
--- NOTE | 2018-02-15 14:49 | P.PNNP ---
Subjective Interval history: s/p HD today. Tolerating well. More alert, but confused. Does not appear to be making any renal progress unfortunately. First HD 01/17/18 <Fabiola Macdonald - Last Filed: 02/15/18 14:44> Physical Exam Vital signs: Vital Signs 02/14/18 16:00 02/14/18 17:27 02/14/18 20:00 Temperature 98.0 F 98.8 F Pulse Rate 93 H 85 Respiratory Rate 20 18 Blood Pressure 116/66 172/95 H Pulse Oximetry 91 L 91 L 94 L 02/15/18 00:00 02/15/18 00:30 02/15/18 04:00 Temperature 98.9 F 99.1 F Pulse Rate 81 81 80 Respiratory Rate 18 18 Blood Pressure 148/84 H 161/93 H Pulse Oximetry 94 L 97 02/15/18 05:00 02/15/18 07:53 02/15/18 11:50 Temperature 98 F Pulse Rate 83 Respiratory Rate 16 18 Blood Pressure 135/82 Pulse Oximetry 93 L 93 L 02/15/18 14:11 Temperature 98.2 F Pulse Rate 88 Respiratory Rate 18 Blood Pressure 157/87 H Pulse Oximetry 94 L Intake & Output 02/14/18 02/15/18 02/15/18 18:59 06:59 18:59 Output Total 2500 / 2500 Balance -1 / -1 -2500 / -2500 Weight 95.5 kg Output: Stool Hemodialysis Amount 2500 / 2500 Other: # Incontinent Voids 1 Date of Last Bowel Movement 02/14/18 # Incontinent Bowel Movements 1 - Constitutional no acute distress - Routine HEENT Exam Head: Present: normocephalic - Routine Neck Exam Present: supple - Routine Respiratory Exam Present: CTA bilaterally - Routine Cardiovascular Exam Present: RRR, S1, S2 - Routine Abdominal Exam Present: soft - Routine Extremities Exam Absent: edema - Routine Neurological Exam Present: alert - Urinary Catheter Management Indwelling Temp Sensing Catheter Cath placed during this visit: yes, but has since been removed by the nurse Reason for continuing: Decision to DC catheter Insertion date: 01/14/18 Insertion time: 22:00 Removal date: 01/21/18 Removal time: 18:00 Straight Cath placed during this visit: no <Fabiola Macdonald - Last Filed: 02/15/18 14:44> Vital signs: Vital Signs 02/16/18 20:00 02/17/18 00:00 02/17/18 06:43 Temperature 97.5 F L 98 F 97.3 F L Pulse Rate 90 83 80 Respiratory Rate 18 18 18 Blood Pressure 143/85 H 138/72 145/71 H Pulse Oximetry 93 L 93 L 93 L 02/17/18 07:00 02/17/18 08:00 02/17/18 11:50 Temperature 98 F 98.4 F Pulse Rate 88 65 80 Respiratory Rate 18 18 Blood Pressure 135/83 139/82 Pulse Oximetry 94 L 93 L 02/17/18 16:00 02/17/18 16:24 Temperature 98.4 F Pulse Rate 78 85 Respiratory Rate 18 Blood Pressure 119/75 Pulse Oximetry 93 L Intake & Output 02/16/18 02/17/18 02/17/18 18:59 06:59 18:59 Intake Total 240 / 240 Output Total 0 / 0 Balance 240 / 240 0 / 0 Weight 97.2 kg Intake: Oral 240 / 240 Output: Urine 0 / 0 Other: # Voids 3 1 Date of Last Bowel Movement 02/15/18 02/14/18 02/14/18 # Bowel Movements 0 - Urinary Catheter Management Indwelling Temp Sensing Catheter Cath placed during this visit: no Straight Cath placed during this visit: no <Kd Rudd - Last Filed: 02/17/18 16:36> Assessment and Plan - Assessment (1) Acute renal failure Code(s): N17.9 - Acute kidney failure, unspecified Status: Acute Plan: Remains dialysis dependent at this time. Remains to be seen if any recovery will be made. First HD 01/17/18 RIJ PermCath placed 02/08/18 Continue HD MWF schedule for the present. Continue calcium acetate for hyperphosphatemia. At this point in time, no renal recovery has been made thus far. Medications should be adjusted for the patient's estimated GFR if clinically indicated. Avoid agents with significant potential for nephrotoxicity possible including NSAIDs for analgesia, iodine contrast agents. Gadolinium is contraindicated if the GFR is below 30. (2) Alcohol abuse Code(s): F10.10 - Alcohol abuse, uncomplicated Status: Acute (3) Alcohol withdrawal seizure with complication Code(s): F10.239 - Alcohol dependence with withdrawal, unspecified; R56.9 - Unspecified convulsions Status: Acute (4) Rhabdomyolysis Code(s): M62.82 - Rhabdomyolysis Status: Acute Plan: Resolved (5) Anemia Code(s): D64.9 - Anemia, unspecified Status: Acute Qualifiers: Anemia type: due to chronic kidney disease Plan: Increase Epo with HD. (6) Hypertension Code(s): I10 - Essential (primary) hypertension Status: Acute Plan: BP stable since addition of Amlodipine. <Fabiola Macdonald - Last Filed: 02/15/18 14:44> - Assessment (1) Acute renal failure Code(s): N17.9 - Acute kidney failure, unspecified Status: Acute (2) Alcohol abuse Code(s): F10.10 - Alcohol abuse, uncomplicated Status: Acute (3) Alcohol withdrawal seizure with complication Code(s): F10.239 - Alcohol dependence with withdrawal, unspecified; R56.9 - Unspecified convulsions Status: Acute (4) Rhabdomyolysis Code(s): M62.82 - Rhabdomyolysis Status: Acute (5) Anemia Code(s): D64.9 - Anemia, unspecified Status: Acute Qualifiers: Anemia type: due to chronic kidney disease (6) Hypertension Code(s): I10 - Essential (primary) hypertension Status: Acute - Attending Attestation The exam, history, and the medical decision-making described in the above note were completed with the assistance of the ISIDRA. I reviewed and agree with the findings presented. <Kd Rudd - Last Filed: 02/17/18 16:36>
--- NOTE | 2018-02-15 14:54 | P.PNIM ---
Subjective Interval history: Follow-up for possible anoxic brain injury, hepatic encephalopathy, end-stage renal disease. Patient is doign well. No acute concerns. He returned from Dialysis today. Physical Exam Vital signs: Last Vital Signs Temp 98.2 F 02/15/18 14:11 Pulse 88 02/15/18 14:11 Resp 18 02/15/18 14:11 BP 157/87 H 02/15/18 14:11 Pulse Ox 94 L 02/15/18 14:11 Intake & Output 02/13/18 02/14/18 02/15/18 02/16/18 06:59 06:59 06:59 06:59 Intake Total 750 / 750 792 / 792 Output Total 1999 / 2500 Balance 750 / 750 -1208 / -1208 - -2499 / -2500 Weight 110.8 kg 98.7 kg 95.5 kg Narrative: GENERAL: Alert, NAD. SKIN: Warm and dry. HEAD: Normocephalic. EYES: No scleral icterus. No injection or drainage. NECK: Supple, trachea midline. No JVD . CARDIOVASCULAR: Regular rate and rhythm without murmurs, gallops, or rubs. RESPIRATORY: Breath sounds equal bilaterally. Occ wheeze upper chest.No accessory muscle use. GASTROINTESTINAL: Abdomen soft, non-tender, nondistended. MUSCULOSKELETAL: No cyanosis, or edema. Moves feet and arms but weak. Urinary Catheter Management Indwelling Temp Sensing Catheter: Cath placed during this visit: yes, but has since been removed by the nurse Insertion date: 01/14/18 Insertion time: 22:00 Removal date: 01/21/18 Removal time: 18:00 Straight: Cath placed during this visit: no Results Labs CBC & Chem 7: 02/09/18 04:23 02/15/18 05:00 Procedures Procedures: Left IJ HD tunneled cath placed 02/08/18 by IR Assessment and Plan Plan 62-year-old white male who was admitted with cardiogenic shock and acute respiratory failure requiring CPR and epinephrine in the field, after being found down at home and being witnessed to possibly have undergone seizure-like activity. Intubation was attempted in the field but were unable to do so, patient was ultimately intubated in the hospital, started on pressors, placed in the ICU on mechanical ventilation. Found to have bilateral pneumothoraces with chest tubes placed, had developed some pneumoperitoneum which surgically deemed might have been a leak from his chest tubes as opposed to an acute surgical abdomen. Patient was started on antibiotics empirically for possible aspiration pneumonia but was ultimately discontinued off of them by infectious disease. Developed rhabdomyolysis with worsening acute renal failure which became sustained, with the patient now undergoing dialysis. Ultimately was discontinued off pressors, cardiology deferred heart cath due to renal failure. Patient had difficulty following commands after he was discontinued off of sedation and after extubation. Had an MRI done on 01/17 which showed no acute findings, only an older right parietal CVA. EEG was done which was unremarkable. 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 Appeared to be making some mild improvement from a neurological standpoint. He passed a swallow evaluation. Appear to be more alert. Continue rehabilitation efforts with physical therapy/OT/speech Per Neurology, patient can be out of bed. Dysphasia: Related to encephalopathy. Probable anoxic injury from cardiogenic shock and respiratory failure. -Patient pulled out NG tube. Currently on Mechanical soft diet. End-stage renal disease Cont MWF hemodialysis. Nephrology following. Discussed with Nephrology. Patient will likely need permanent dialysis. Will discuss with CM to start outpatient dialysis/placement arrangment. Possible seizure Continue Keppra 500mg PO BID. EEG was negative Non-STEMI Hypertension Troponins elevated to 0.52, 1.89 and 2.37. Cardiology recommended conservative medical management. Continue aspirin, carvedilol 6.25 twice daily, isosorbide dinitrate, atorvastatin 20 mg Continue amlodipine 5 mg daily Bilateral pneumothoraces pneumomediastinum acute respiratory failure chest tubes removed 01/28/2018 Continue oxygen supplementation Appreciate pulmonology following. Patient cannot tolerate BiPAP. Pneumoperitoneum with right retroperitoneal gas/gas around the right kidney Likely secondary to bilateral pneumothoraces with no surgical intervention warranted per general surgery Hepatitis secondary to shock Hepatic steatosis Cirrhosis Possible alcohol abuse Continue thiamine Continue folic acid Continue beta-blockers diabetes mellitus Diabetic diet Continue Aspart Sliding scale insulin. Will add low dose Levemir. Goal BG 140-180. hypothyroidism continue levothyroxine Normocytic anemia Status post PRBC transfusion. H&H stable around 8. Full code. Heparin SQ. Progress Note: Quality VTE Deep Vein Thrombosis/Pulmonary Embolism Present on Admission: No
[2018-02-15] MEDS: Dextrose 5%/NaCl 0.9% Inj 1,000 ML IV.CONT SCH (16:00)
--- NOTE | 2018-02-15 16:54 | P.PNPAL ---
Reason for Visit Reason for visit: a. To assist with evaluation and management of symptoms including: Dysphasia, weakness b. To assist medical decision maker(s) with: better understanding of current medical conditions; weighing benefits/burdens of medical treatment options; making medical treatment decisions. Subjective Subjective/Interval History: This is a 62-year-old male who presented to [facility] 01/14/2018 via EMS for altered mental status and seizures. He has had multiple admissions to [facility] in 2018 mostly for alcohol intoxication the most recent was 4 days prior to this current admission. He has a long history of alcoholism. His reports he drinks 1 L of vodka daily. While in the ED he became obtunded and began vomiting dark material. Due to his inability to protect his airway, he was intubated. After the initial intubation he became combative and dislodged the tube acquiring removal of the initial ET tube and replacement of a second tube. After intubation, he subsequently went into cardiopulmonary arrest with ROSC after 2 cycles of CPR. Post CPR he was found to have significant subcu emphysema and was emergently sent to CT with CT of the head, chest and abdomen showed bilateral tension pneumothoraces as well as free air in the peritoneal cavity. Bilateral chest tubes were placed immediately and he was transferred to ICU where he arrested again and again had spontaneous return of circulation. Labs showed acute kidney injury, presumed to be from severe dehydration and aggressive IV fluid resuscitation was initiated. He was also found to have severe sepsis and vancomycin and cefepime were initiated with an infectious disease consultation and blood cultures. He remained critically ill requiring maximum doses of vasopressor support to include norepinephrine, vasopressin and epinephrine with subsequent worsening of his renal indices, eventually requiring dialysis. He initially required Flolan in addition to aggressive APRV mode of ventilation and after an 11-day course of intubation was subsequently extubated 01/25/2018. Patient seen today for medically necessary follow-up of dysphasia and weakness. Patient remains on nectar thickened liquids, mechanical soft diet. He continues to have difficulty with speech, garbling some words, answering inappropriately. It appears to be related to his encephalopathy which is thought to be a result of Anoxic injury from cardiogenic shock and respiratory failure. He is more weak and tired today, status post dialysis. It is thought that his need for dialysis will be permanent as his renal indices show no recovery and he is producing no urine. He is generally weak, unable to lift his left arm off the bed but is able to move the left hand. He intermittently cooperates with PT is varying admission makes it difficult for him to maintain a thought and follow direction. He is a 2-3 person assist for static standing trials. He is able to stand for less than 5 seconds. Funding for rehab has been delayed while his renal status was being evaluated. It was hoped that his need for dialysis was temporary, per Dr. Bradley's note, his conversation with nephrology indicates that this is likely permanent. [facility] care had previously declined to seek disability due to dialysis being considered acute and not chronic. Pending formal nephrology documentation regarding conversion from acute to chronic dialysis. . Family/Friend Interactions: No family is at bedside. Previous conversations with the indicate that she would be in favor of a DO NOT RESUSCITATE status, however wishes to cooperate with the patient's sister who wishes to continue and FULL CODE STATUS. At this time the patient remains in FULL CODE. . Advance Directives Living Will: Never completed Health Care Surrogate: Never completed Durable Power of Tourism Radio Presenter: Never completed Objective Vital Signs: Vital Signs 02/14/18 17:27 02/14/18 20:00 02/15/18 00:00 Temperature 98.8 F 98.9 F Pulse Rate 85 81 Respiratory Rate 18 18 Blood Pressure 172/95 H 148/84 H Pulse Oximetry 91 L 94 L 94 L 02/15/18 00:30 02/15/18 04:00 02/15/18 05:00 Temperature 99.1 F Pulse Rate 81 80 Respiratory Rate 18 16 Blood Pressure 161/93 H Pulse Oximetry 97 02/15/18 07:53 02/15/18 11:50 02/15/18 14:11 Temperature 98 F 98.2 F Pulse Rate 83 88 Respiratory Rate 18 18 Blood Pressure 135/82 157/87 H Pulse Oximetry 93 L 93 L 94 L Intake & Output 02/14/18 02/15/18 02/15/18 18:59 06:59 18:59 Output Total 2500 / 2500 Balance -1 / -1 -2499 / -2500 Weight 210 lb 8.663 oz Output: Stool Hemodialysis Amount 2500 / 2500 Other: # Incontinent Voids 1 Date of Last Bowel Movement 02/14/18 # Incontinent Bowel Movements 1 Physical Exam: CONSTITUTIONAL/GENERAL: This is an overweight male patient, lying in bed, lethargic, in no apparent distress. TUBES/LINES/DRAINS: PIV, right Perma-Cath SKIN: Appears slightly jaundiced. CARDIOVASCULAR: Regular rate and rhythm without murmurs, gallops, or rubs. No JVD. Peripheral pulses symmetric. RESPIRATORY/CHEST: Symmetric, unlabored respirations. Lungs coarse with scattered rhonchi, diminished. GASTROINTESTINAL: Abdomen soft, non-tender, nondistended. No hepato-splenomegaly , or palpable masses. No guarding. Bowel sounds present. GENITOURINARY: Without palpable bladder distension. MUSCULOSKELETAL: Left upper extremity weak, able to move hand and forearm weekly , unable to raise arm, falls back to the bed when passively raised and released. Right upper extremity with full ROM, generalized weakness, BLE generalized weakness. NEUROLOGICAL: Alert, some answers are appropriate, oriented to place, self with poor insight. PSYCHIATRIC: Calm, interactive, appropriate. . Diagnostic Tests Laboratory: Laboratory Results - last 72 hr 02/12/18 02/12/18 02/13/18 17:27 21:34 07:48 Sodium 135 L Potassium 4.1 Chloride 95 L Carbon Dioxide 28.8 Anion Gap 11 BUN 51 H Creatinine 8.87 H Estimated GFR 6 L POC Glucose 135 H 148 H Random Glucose 145 H Calcium 9.9 Hepatitis A IgM Ab Hep Bs Antigen Hep B Core IgM Ab Hep C IgG Ab 02/13/18 02/13/18 02/13/18 08:18 11:44 23:18 Sodium Potassium Chloride Carbon Dioxide Anion Gap BUN Creatinine Estimated GFR POC Glucose 158 H 111 H 109 Random Glucose Calcium Hepatitis A IgM Ab Hep Bs Antigen Hep B Core IgM Ab Hep C IgG Ab 02/14/18 02/14/18 02/14/18 04:29 07:56 12:45 Sodium 134 L Potassium 4.1 Chloride 96 L Carbon Dioxide 31.3 Anion Gap 7 BUN 27 H Creatinine 6.36 H Estimated GFR 9 L POC Glucose 116 H 293 H Random Glucose 96 Calcium 9.3 Hepatitis A IgM Ab Hep Bs Antigen Hep B Core IgM Ab Hep C IgG Ab 02/14/18 02/14/18 02/14/18 16:48 17:42 21:58 Sodium Potassium Chloride Carbon Dioxide Anion Gap BUN Creatinine Estimated GFR POC Glucose 142 H 111 H Random Glucose Calcium Hepatitis A IgM Ab Nonreactive Hep Bs Antigen Nonreactive Hep B Core IgM Ab Nonreactive Hep C IgG Ab Nonreactive 02/15/18 02/15/18 02/15/18 05:00 09:00 12:07 Sodium 135 L Potassium 4.2 Chloride 96 L Carbon Dioxide 31.2 Anion Gap 8 BUN 34 H Creatinine 8.11 H Estimated GFR 7 L POC Glucose 105 83 Random Glucose 103 Calcium 9.6 Hepatitis A IgM Ab Hep Bs Antigen Hep B Core IgM Ab Hep C IgG Ab Result Diagrams: 02/28/18 04:47 02/28/18 04:47 Imaging: ITS Impressions Cervical Spine CT 01/14/18 21:58 CONCLUSION: 1. No acute fracture or malalignment. 2. Subcutaneous emphysema again noted as well as the known right pneumothorax. Head CT 01/14/18 21:58 CONCLUSION: 1. No acute hemorrhage or mass effect. 2. Stable area of encephalomalacia in the right lateral lobe. . Abdomen/Bladder Ultrasound 01/16/18 00:00 CONCLUSION: 1. Trace ascites. 2. Negative renal ultrasound Abdomen/Pelvis CT 01/16/18 00:00 CONCLUSION: 1. Minimal free intraperitoneal air. I don't see etiology for such 2. Dense consolidation both lung bases with small bilateral chest tubes 3. Trace pneumothorax on the left. No pneumothorax on the right. 4. Moderate fatty replacement to the liver with prominent gallbladder Chest CT 01/16/18 00:00 . CONCLUSION: 1. Dense consolidation in both lung bases small bore chest tubes evident. 2. Trace pneumothorax on the left 3. No significant fluid. Cervical Spine MRI 01/27/18 00:00 CONCLUSION: 1. No fracture or subluxation seen of the cervical spine but there is edema in the erector spinae muscles, especially on the right at the level of the upper cervical spine. This is nonspecific but presumably related to an acute or subacute strain. Localized early denervation would be conceivable but I don't see any atrophy. 2. There is an age-indeterminate left foraminal disc protrusion at C3/C4 that is probably impinging on the transiting left C4 nerve root. 3. Multilevel degenerative changes that otherwise appear chronic, as described. Associated high-grade foraminal stenosis on the right at C4/C5, bilateral at C5/C6 and C6/C7. No high-grade spinal stenosis demonstrated. Head MRI 01/27/18 00:00 CONCLUSION: 1. Remote right posterior parietal mid convexity infarct. 2. Mild cerebral atrophy with mild periventricular ischemic white matter demyelination. 3. Stable paranasal sinus mucosal disease and mastoiditis. 4. No acute abnormality. Specifically, no acute infarction or hemorrhage. Abdomen X-Ray 01/28/18 00:00 CONCLUSION: Mild gaseous distention of bowel. Carotid Doppler Study 01/28/18 00:00 CONCLUSION: 1. Right Internal Carotid Artery: No significant stenosis or atherosclerotic plaque is visualized. 2. Left Internal Carotid Artery: No significant stenosis or atherosclerotic plaque is visualized. Venous Doppler Study 02/05/18 00:00 CONCLUSION: No venous thrombosis is identified within the left upper extremity. Chest X-Ray 02/06/18 00:00 CONCLUSION: There is mild bibasilar airspace opacity that has not significantly changed from the prior study. The appearance suggests either subsegmental atelectasis or consolidation. No pleural effusion is present. Catheter Placement 02/08/18 00:00 CONCLUSION: 1. Uncomplicated line placement as above. Tube Removal 02/08/18 00:00 CONCLUSION: 1. Uncomplicated catheter removal. Procedures: 01/14: Intubation x2 01/14: Right and left chest tube placement 01/14: Right brachial arterial line placement 01/14: Right subclavian central line placement 01/17: Placement of L IJ hemodialysis catheter. Assessment and Plan - Disease Oriented Problem List (1) Delirium tremens (2) Bilateral pneumothoraces (3) Endotracheally intubated (4) Elevated troponin (5) Acute renal failure (6) Alcohol abuse (7) Alcohol withdrawal seizure with complication (8) Rhabdomyolysis Pertinent Non-Medical Issues: Psychosocial: He lived in many states growing up. 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 He has been once to his current , from who he is now and has no children. 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 Legal: No advance directives completed. Ethical issues impacting care: Patient does not appear capacitated for decision- making. . Important Contacts: : Tressa Canseco [phone] Sister: Lala Canseco . Prognosis: His prognosis is guarded. He still has significant deficits and is at risk for recurrent complications, infections and decline. At this time he has multisystem organ compromise to include cardiogenic shock status post VT on admission with cardiac arrest x2, respiratory insufficiency, acute kidney injury on hemodialysis and hepatitis secondary to shock. It is the opinion of nephrology that his renal failure is caused by his cardiac failure equating to cardiorenal syndrome. He has left-sided weakness and appears aphasic at this time. Pending speech therapy evaluation. He was previously too unstable from a respiratory standpoint to undergo evaluation. He is at significant risk for continued complications and decline. . Code Status: Full Code Plan: PLAN: Legal decision maker: At this time the patient is not capacitated for decision-making and it is uncertain whether he statutes, his Tressa would be his proxy decision-maker. Goals: Aggressive at this time. CODE STATUS: FULL CODE SYMPTOMS: * Dysphasia: Speech therapy has evaluated and found him to have mild oropharyngeal dysphasia and has placed him on a mechanical soft diet with nectar thickened liquids. He has failed repeated attempts at thin liquids by the teaspoon. He is seen to have difficulty controlling food boluses in his mouth due to erratic cognition. He intermittently forgets what he is doing and starts talking while chewing. He requires feeding. Speech therapy continues to follow. He continues to lose weight with admission weight 271 pounds, today' s weight 210 pounds, a loss of 61 pounds in 29 days, but BMI remains at 30.2 still in the obese range. * Weakness: Bilateral upper extremity weakness left greater than right. Requiring physical therapy 7 days a week. Also receiving OT and ST. Therapy is complicated by his dialysis treatments. He is able to move his left hand but not lift his arm, right arm remains grossly weak with some movement. He is dependent for all ADLs and cannot feed himself, whether due to weakness or cognitive impairment is unclear. Physical therapy is recommended, however patient has no payer source so placement would have to be on a chauncey basis. As his dialysis is considered acute and not chronic at this time, [facility] care states he cannot apply for disability, but with no renal recovery being seen, this may become chronic. Placement is likely to be difficult. Palliative care will continue to follow the patient during hospital course as condition evolves, to assist patient/decision-maker with understanding of their medical conditions, weighing benefits/burdens of treatment options, for clarification of goals of treatment. Additionally will assist with any symptoms of palliative concern. . Attestation Attestation: To help prompt me to consider important information that might be impacting today's encounter and assessment, information from prior notes written by myself or my colleagues may have been "brought forward" into today's note. My signature on this note, however, is an attestation that I personally performed the exam, history, and/or decision-making noted today, and, unless otherwise indicated, the interactions with patient, family, and staff as well as the review of records all occurred today. I also attest that the listed assessment and stated plan reflect my best clinical judgment today based on the combination of historical information, prior notes, and today's exam/ interactions. When time spent is documented, it refers only to time spent today by the signer, or if indicated, combined time spent today by collaborating physician/nurse practitioner. .
[2018-02-15] MEDS: Insulin Detemir Inj 1,000 UNIT/10 ML Vial SQ SCH (23:30)
[2018-02-16] MEDS: Artificial Tears Opth Drops 15 ML Bottle EACH EYE SCH ×2 (03:25→10:12)
[2018-02-16] MEDS: Oral Hygiene Kit OROPHARYNG SCH ×4 (03:25→21:58)
[2018-02-16] MEDS: Pantoprazole Inj 40 MG Vial IV.PUSH SCH ×2 (03:25→13:35)
[2018-02-16] MEDS: hydrALAZINE 25 MG Tablet PO SCH ×3 (06:24→21:58)
[2018-02-16] MEDS: Dextrose 5%/NaCl 0.9% Inj 1,000 ML IV.CONT SCH (06:25)
[2018-02-16] MEDS: Levothyroxine 88 MCG Tablet PO SCH (06:25)
[2018-02-16 09:12] LABS: Baso # (Auto) 0.1 th/mm3 (0.0-0.2); Baso % (Auto) 0.8 % (0.0-2.0); Eos # (Auto) 0.1 th/mm3 (0.0-0.4); Eos % (Auto) 1.7 % (0.0-4.0); Hematocrit 25.9 % (39.0-51.0); Hemoglobin 8.8 gm/dL (13.0-17.0); Lymph % (Auto) 14.6 % (9.0-44.0); Mean Corpuscular HGB Conc 34.2 % (32.0-36.0); Mean Corpuscular Hemoglobin 30.4 pg (27.0-34.0); Mean Corpuscular Volume 89.1 fL (80.0-100.0); Mean Platelet Volume 7.5 fL (7.0-11.0); Mono # (Auto) 1.1 th/mm3 (0.0-0.9); Neut # (Auto) 4.8 th/mm3 (1.8-7.7); Neut % (Auto) 67.9 % (16.0-70.0); Platelet Count 359 th/mm3 (150-450); Red Cell Distribution Width 17.4 % (11.6-17.2); White Blood Count 7.1 th/mm3 (4.0-11.0)
--- NOTE | 2018-02-16 09:38 | P.PNIM ---
Subjective Interval history: Follow-up for possible anoxic brain injury, hepatic encephalopathy, end-stage renal disease. Patient is doing well. Resting in bed. No acute concerns. Physical Exam Vital signs: Last Vital Signs Temp 97.6 F 02/16/18 06:53 Pulse 98 H 02/16/18 06:53 Resp 18 02/16/18 06:53 BP 139/81 02/16/18 06:53 Pulse Ox 93 L 02/16/18 06:53 Intake & Output 02/14/18 02/15/18 02/16/18 02/17/18 06:59 06:59 06:59 06:59 Intake Total 792 / 792 850 / 850 Output Total 1999 / 1999 2500 / 2500 Balance -1208 / -1208 - / 1 -1650 / -1650 Weight 98.7 kg 95.5 kg 97.6 kg Narrative: GENERAL: Alert, NAD. SKIN: Warm and dry. HEAD: Normocephalic. EYES: No scleral icterus. No injection or drainage. NECK: Supple, trachea midline. No JVD . CARDIOVASCULAR: Regular rate and rhythm without murmurs, gallops, or rubs. RESPIRATORY: Breath sounds equal bilaterally. Occ wheeze upper chest.No accessory muscle use. GASTROINTESTINAL: Abdomen soft, non-tender, nondistended. MUSCULOSKELETAL: No cyanosis, or edema. Moves feet and arms but weak. Urinary Catheter Management Indwelling Temp Sensing Catheter: Cath placed during this visit: yes, but has since been removed by the nurse Insertion date: 01/14/18 Insertion time: 22:00 Removal date: 01/21/18 Removal time: 18:00 Straight: Cath placed during this visit: no Results Labs CBC & Chem 7: 02/16/18 08:07 02/16/18 08:07 Procedures Procedures: Left IJ HD tunneled cath placed 02/08/18 by IR Assessment and Plan Plan 62-year-old white male who was admitted with cardiogenic shock and acute respiratory failure requiring CPR and epinephrine in the field, after being found down at home and being witnessed to possibly have undergone seizure-like activity. Intubation was attempted in the field but were unable to do so, patient was ultimately intubated in the hospital, started on pressors, placed in the ICU on mechanical ventilation. Found to have bilateral pneumothoraces with chest tubes placed, had developed some pneumoperitoneum which surgically deemed might have been a leak from his chest tubes as opposed to an acute surgical abdomen. Patient was started on antibiotics empirically for possible aspiration pneumonia but was ultimately discontinued off of them by infectious disease. Developed rhabdomyolysis with worsening acute renal failure which became sustained, with the patient now undergoing dialysis. Ultimately was discontinued off pressors, cardiology deferred heart cath due to renal failure. Patient had difficulty following commands after he was discontinued off of sedation and after extubation. Had an MRI done on 01/17 which showed no acute findings, only an older right parietal CVA. EEG was done which was unremarkable. 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 Appeared to be making some mild improvement from a neurological standpoint. He passed a swallow evaluation. Appear to be more alert. Continue rehabilitation efforts with physical therapy/OT/speech Per Neurology, patient can be out of bed. Dysphasia: Related to encephalopathy. Probable anoxic injury from cardiogenic shock and respiratory failure. -Patient pulled out NG tube. Currently on Mechanical soft diet. End-stage renal disease Cont MWF hemodialysis. Nephrology following. Discussed with Nephrology. Patient will likely need permanent dialysis. CM is working on outpatient dialysis/placement arrangements. Possible seizure Continue Keppra 500mg PO BID. EEG was negative Non-STEMI Hypertension Troponins elevated to 0.52, 1.89 and 2.37. Cardiology recommended conservative medical management. Continue aspirin, carvedilol 6.25 twice daily, isosorbide dinitrate, atorvastatin 20 mg Continue amlodipine 5 mg daily Bilateral pneumothoraces pneumomediastinum acute respiratory failure chest tubes removed 01/28/2018 Continue oxygen supplementation Appreciate pulmonology following. Patient cannot tolerate BiPAP. Pneumoperitoneum with right retroperitoneal gas/gas around the right kidney Likely secondary to bilateral pneumothoraces with no surgical intervention warranted per general surgery Hepatitis secondary to shock Hepatic steatosis Cirrhosis Possible alcohol abuse Continue thiamine Continue folic acid Continue beta-blockers diabetes mellitus Diabetic diet Continue Aspart Sliding scale insulin. Will add low dose Levemir. Goal BG 140-180. hypothyroidism continue levothyroxine Normocytic anemia Status post PRBC transfusion. H&H stable around 8. Full code. Heparin SQ. Discharge Plan: Outpt placement/dialysis arrangements needed before patient can be discharged. Progress Note: Quality VTE Deep Vein Thrombosis/Pulmonary Embolism Present on Admission: No
[2018-02-16 09:44] LABS: Albumin 2.9 g/dL (3.4-5.0); Calcium 9.1 mg/dL (8.5-10.1); Carbon Dioxide 29.5 meq/L (21.0-32.0); Phosphorus 3.7 mg/dL (2.5-4.9); Potassium 3.6 meq/L (3.5-5.1)
[2018-02-16] MEDS: Chlorhexidine 0.12% Oral Kit 15 ML UDC OROPHARYNG SCH ×2 (10:09→21:59)
[2018-02-16] MEDS: Carvedilol 6.25 MG Tablet PO SCH ×2 (10:10→21:58)
[2018-02-16] MEDS: amLODIPine 5 MG Tablet PO SCH (10:10)
[2018-02-16] MEDS: Calcium Acetate 667 MG Capsule PO SCH ×3 (10:11→18:10)
[2018-02-16 10:12] LABS: Blast Cells 1 % (0-0); Eosinophils 7 % (0-4); Lymphocytes 16 % (9-44); Metamyelocytes 1 % (0-1); Monocytes 13 % (0-8); Myelocytes 1 % (0-0); Platelet Estimate Normal (Normal); Platelet Morphology Normal (Normal)
[2018-02-16] MEDS: levETIRAcetam 500 MG Tablet PO SCH ×2 (10:16→21:58)
[2018-02-16] MEDS: Senna/Docusate Sodium 8.6/50 MG Tablet PO SCH ×2 (10:16→21:59)
[2018-02-16] MEDS: Folic Acid 1 MG Tablet PO SCH (10:16)
[2018-02-16] MEDS: Insulin NovoLOG Aspart Correctional Sugar Inj SQ SCH ×3 (10:17→21:59)
[2018-02-16] MEDS: Insulin Detemir Inj 1,000 UNIT/10 ML Vial SQ SCH (21:59)
[2018-02-17] MEDS: Artificial Tears Opth Drops 15 ML Bottle EACH EYE SCH ×4 (00:19→21:41)
[2018-02-17] MEDS: Insulin NovoLOG Aspart Correctional Sugar Inj SQ SCH ×5 (00:20→21:29)
[2018-02-17] MEDS: Dextrose 5%/NaCl 0.9% Inj 1,000 ML IV.CONT SCH ×2 (00:21→23:14)
[2018-02-17] MEDS: Oral Hygiene Kit OROPHARYNG SCH ×4 (00:21→17:46)
[2018-02-17] MEDS: Pantoprazole Inj 40 MG Vial IV.PUSH SCH ×2 (02:28→14:45)
[2018-02-17] MEDS: Levothyroxine 88 MCG Tablet PO SCH (05:56)
[2018-02-17] MEDS: hydrALAZINE 25 MG Tablet PO SCH ×3 (05:56→21:26)
[2018-02-17] MEDS: Senna/Docusate Sodium 8.6/50 MG Tablet PO SCH ×2 (08:33→21:27)
[2018-02-17] MEDS: Chlorhexidine 0.12% Oral Kit 15 ML UDC OROPHARYNG SCH ×2 (08:33→21:30)
[2018-02-17] MEDS: Folic Acid 1 MG Tablet PO SCH (08:33)
[2018-02-17] MEDS: amLODIPine 5 MG Tablet PO SCH (08:33)
[2018-02-17] MEDS: Calcium Acetate 667 MG Capsule PO SCH ×3 (08:33→17:45)
[2018-02-17] MEDS: levETIRAcetam 500 MG Tablet PO SCH ×2 (08:33→21:26)
[2018-02-17] MEDS: Carvedilol 6.25 MG Tablet PO SCH ×2 (08:34→21:27)
--- NOTE | 2018-02-17 11:11 | P.PNIM ---
Subjective Interval history: Follow-up for possible anoxic brain injury, hepatic encephalopathy, end-stage renal disease. Patient is currently doing well. Resting in bed comfortably. No acute concerns. Afebrile Physical Exam Vital signs: Last Vital Signs Temp 98 F 02/17/18 07:00 Pulse 88 02/17/18 07:00 Resp 18 02/17/18 07:00 BP 135/83 02/17/18 07:00 Pulse Ox 94 L 02/17/18 07:00 Intake & Output 02/15/18 02/16/18 02/17/18 02/18/18 06:59 06:59 06:59 06:59 Intake Total 850 / 850 240 / 240 Output Total 2500 / 2500 0 / 0 Balance -1 / -1 -1650 / -1650 240 / 240 Weight 95.5 kg 97.6 kg 97.2 kg Narrative: GENERAL: Sleepy this morning, NAD. SKIN: Warm and dry. HEAD: Normocephalic. EYES: No scleral icterus. No injection or drainage. NECK: Supple, trachea midline. No JVD . CARDIOVASCULAR: Regular rate and rhythm without murmurs, gallops, or rubs. RESPIRATORY: Breath sounds equal bilaterally. Occ wheeze upper chest.No accessory muscle use. GASTROINTESTINAL: Abdomen soft, non-tender, nondistended. MUSCULOSKELETAL: No cyanosis, or edema. Moves feet and arms but weak. Urinary Catheter Management Indwelling Temp Sensing Catheter: Cath placed during this visit: yes, but has since been removed by the nurse Insertion date: 01/14/18 Insertion time: 22:00 Removal date: 01/21/18 Removal time: 18:00 Straight: Cath placed during this visit: no Results Labs CBC & Chem 7: 02/16/18 08:07 02/16/18 08:07 Procedures Procedures: Left IJ HD tunneled cath placed 02/08/18 by IR Assessment and Plan Plan 62-year-old white male who was admitted with cardiogenic shock and acute respiratory failure requiring CPR and epinephrine in the field, after being found down at home and being witnessed to possibly have undergone seizure-like activity. Intubation was attempted in the field but were unable to do so, patient was ultimately intubated in the hospital, started on pressors, placed in the ICU on mechanical ventilation. Found to have bilateral pneumothoraces with chest tubes placed, had developed some pneumoperitoneum which surgically deemed might have been a leak from his chest tubes as opposed to an acute surgical abdomen. Patient was started on antibiotics empirically for possible aspiration pneumonia but was ultimately discontinued off of them by infectious disease. Developed rhabdomyolysis with worsening acute renal failure which became sustained, with the patient now undergoing dialysis. Ultimately was discontinued off pressors, cardiology deferred heart cath due to renal failure. Patient had difficulty following commands after he was discontinued off of sedation and after extubation. Had an MRI done on 01/17 which showed no acute findings, only an older right parietal CVA. EEG was done which was unremarkable. 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 Appeared to be making some mild improvement from a neurological standpoint. He passed a swallow evaluation. Appear to be more alert. Continue rehabilitation efforts with physical therapy/OT/speech Per Neurology, patient can be out of bed. Dysphasia: Related to encephalopathy. Probable anoxic injury from cardiogenic shock and respiratory failure. -Patient pulled out NG tube. Currently on Mechanical soft diet. End-stage renal disease Cont MWF hemodialysis. Nephrology following. Discussed with Nephrology. Patient will likely need permanent dialysis. CM is working on outpatient dialysis/placement arrangements. Possible seizure Continue Keppra 500mg PO BID. EEG was negative Non-STEMI Hypertension Troponins elevated to 0.52, 1.89 and 2.37. Cardiology recommended conservative medical management. Continue aspirin, carvedilol 6.25 twice daily, isosorbide dinitrate, atorvastatin 20 mg Continue amlodipine 5 mg daily Bilateral pneumothoraces pneumomediastinum acute respiratory failure chest tubes removed 01/28/2018 Continue oxygen supplementation Appreciate pulmonology following. Patient cannot tolerate BiPAP. Pneumoperitoneum with right retroperitoneal gas/gas around the right kidney Likely secondary to bilateral pneumothoraces with no surgical intervention warranted per general surgery Hepatitis secondary to shock Hepatic steatosis Cirrhosis Possible alcohol abuse Continue thiamine Continue folic acid Continue beta-blockers diabetes mellitus Diabetic diet Continue Aspart Sliding scale insulin. Will add low dose Levemir. Goal BG 140-180. hypothyroidism continue levothyroxine Normocytic anemia Status post PRBC transfusion. H&H stable around 8. Full code. Heparin SQ. 02/17/2018: No acute changes in management. Will need outpatient dialysis set up as well as placement. Progress Note: Quality VTE Deep Vein Thrombosis/Pulmonary Embolism Present on Admission: No
--- NOTE | 2018-02-17 16:25 | P.PN ---
Subjective Interval history: he is doing well. Able to talk more coherently Off O2 . wants to go home. Physical Exam Vital signs: Vital Signs 02/16/18 20:00 02/17/18 00:00 02/17/18 06:43 Temperature 97.5 F L 98 F 97.3 F L Pulse Rate 90 83 80 Respiratory Rate 18 18 18 Blood Pressure 143/85 H 138/72 145/71 H Pulse Oximetry 93 L 93 L 93 L 02/17/18 07:00 02/17/18 08:00 02/17/18 11:50 Temperature 98 F 98.4 F Pulse Rate 88 65 80 Respiratory Rate 18 18 Blood Pressure 135/83 139/82 Pulse Oximetry 94 L 93 L 02/17/18 16:00 Temperature Pulse Rate 78 Respiratory Rate Blood Pressure Pulse Oximetry Intake & Output 02/16/18 02/17/18 02/17/18 18:59 06:59 18:59 Intake Total 240 / 240 Output Total 0 / 0 Balance 240 / 240 0 / 0 Weight 97.2 kg Intake: Oral 240 / 240 Output: Urine 0 / 0 Other: # Voids 3 1 Date of Last Bowel Movement 02/15/18 02/14/18 # Bowel Movements 0 Narrative: GENERAL:Alert and NAD. SKIN: Warm and dry. HEAD: Normocephalic. EYES: No scleral icterus. No injection or drainage. NECK: Supple, trachea midline. No JVD . CARDIOVASCULAR: Regular rate and rhythm without murmurs, gallops, or rubs. RESPIRATORY: Breath sounds equal bilaterally. Occ wheeze upper chest.No accessory muscle use. GASTROINTESTINAL: Abdomen soft, non-tender, nondistended. MUSCULOSKELETAL: No cyanosis, or edema. Moves feet and arms but weak. - Urinary Catheter Management Indwelling Temp Sensing Catheter Cath placed during this visit: yes, but has since been removed by the nurse Reason for continuing: Decision to DC catheter Insertion date: 01/14/18 Insertion time: 22:00 Removal date: 01/21/18 Removal time: 18:00 Straight Cath placed during this visit: no Results - Labs CBC & Chem 7: 02/16/18 08:07 02/16/18 08:07 Laboratory Results - last 24 hr 02/16/18 02/16/18 02/17/18 16:33 21:58 08:21 POC Glucose 113 H 117 H 88 02/17/18 12:01 POC Glucose 148 H - Procedures Left IJ HD tunneled cath placed 02/08/18 by IR Assessment and Plan - Assessment (1) Encephalopathy acute Code(s): G93.40 - Encephalopathy, unspecified Status: Acute (2) Overdose Code(s): T50.901A - Poisoning by unspecified drugs, medicaments and biological substances, accidental (unintentional), initial encounter Status: Acute (3) Suicidal ideation Code(s): R45.851 - Suicidal ideations Status: Acute (4) Delirium tremens Code(s): F10.231 - Alcohol dependence with withdrawal delirium Status: Acute (5) Bilateral pneumothoraces Code(s): J93.9 - Pneumothorax, unspecified Status: Acute (6) Endotracheally intubated Code(s): Z97.8 - Presence of other specified devices Status: Acute (7) Elevated troponin Code(s): R74.8 - Abnormal levels of other serum enzymes Status: Acute (8) Acute renal failure Code(s): N17.9 - Acute kidney failure, unspecified Status: Acute (9) Alcohol abuse Code(s): F10.10 - Alcohol abuse, uncomplicated Status: Acute - Plan - Plan 1. Respiratory insufficiency, status post extubation on 01/25/2018. 2. s/p pneumothoraces on arrival, status post bilateral small bore chest tube placement on 01/15/2018. removed 01/28 3. Acute kidney injury.On Dialysis 4. Leukocytosis. 5. Anemia. 6. NSTEMI 7. Morbid obesity. 8. Hypertension. 9. Diabetes mellitus. 10. s/p seizures. Plan 1. Albuterol Inhaler , 2 puffs TID PRN 2. Soft diet 3. Labs in am 4. Up as tolerated 5. Dialysis as planned. 6. Chest Xray Sunday 7. PT Evaluation (2) Overdose Qualifiers: Encounter type: initial encounter Injury intent: undetermined intent Qualified Code(s): T50.904A - Poisoning by unspecified drugs, medicaments and biological substances, undetermined, initial encounter
--- NOTE | 2018-02-17 16:45 | P.PNNP ---
Subjective Interval history: Patient does appear to be more alert and orientated to place, year and person. Currently no verbal complaints. Physical Exam Vital signs: Vital Signs 02/16/18 20:00 02/17/18 00:00 02/17/18 06:43 Temperature 97.5 F L 98 F 97.3 F L Pulse Rate 90 83 80 Respiratory Rate 18 18 18 Blood Pressure 143/85 H 138/72 145/71 H Pulse Oximetry 93 L 93 L 93 L 02/17/18 07:00 02/17/18 08:00 02/17/18 11:50 Temperature 98 F 98.4 F Pulse Rate 88 65 80 Respiratory Rate 18 18 Blood Pressure 135/83 139/82 Pulse Oximetry 94 L 93 L 02/17/18 16:00 02/17/18 16:24 Temperature 98.4 F Pulse Rate 78 85 Respiratory Rate 18 Blood Pressure 119/75 Pulse Oximetry 93 L Intake & Output 02/16/18 02/17/18 02/17/18 18:59 06:59 18:59 Intake Total 240 / 240 Output Total 0 / 0 Balance 240 / 240 0 / 0 Weight 97.2 kg Intake: Oral 240 / 240 Output: Urine 0 / 0 Other: # Voids 3 1 Date of Last Bowel Movement 02/15/18 02/14/18 02/14/18 # Bowel Movements 0 Narrative: GENERAL:Alert and NAD. SKIN: Warm and dry. HEAD: Normocephalic. EYES: No scleral icterus. No injection or drainage. NECK: Supple, trachea midline. No JVD . CARDIOVASCULAR: Regular rate and rhythm without murmurs, gallops, or rubs. Hemodialysis PermCath in place right infraclavicular area appears to be intact. RESPIRATORY: Breath sounds equal bilaterally. Occ wheeze upper chest.No accessory muscle use. GASTROINTESTINAL: Abdomen soft, non-tender, nondistended. MUSCULOSKELETAL: No cyanosis, or edema. Moves feet and arms but weak. - Urinary Catheter Management Indwelling Temp Sensing Catheter Cath placed during this visit: yes, but has since been removed by the nurse Reason for continuing: Decision to DC catheter Insertion date: 01/14/18 Insertion time: 22:00 Removal date: 01/21/18 Removal time: 18:00 Straight Cath placed during this visit: no Assessment and Plan - Assessment (1) Acute renal failure Code(s): N17.9 - Acute kidney failure, unspecified Status: Acute Plan: Remains dialysis dependent at this time. First HD 01/17/18 RIJ PermCath placed 02/08/18 Continue HD MWF schedule for the present. Continue calcium acetate for hyperphosphatemia. There is been no evidence of renal recovery today. Currently not optimistic that we will obtain significant renal recovery although it may still occur. I provided on-call coverage for this patient in house and unfortunately I will be on leave of absence from the hospital starting tomorrow. The on-call policy manager will have to be consulted tomorrow to take over care from here on as I will not be an active staff. Any questions please call. Medications should be adjusted for the patient's estimated GFR if clinically indicated. Avoid agents with significant potential for nephrotoxicity possible including NSAIDs for analgesia, iodine contrast agents. Gadolinium is contraindicated if the GFR is below 30. (2) Alcohol abuse Code(s): F10.10 - Alcohol abuse, uncomplicated Status: Acute (3) Alcohol withdrawal seizure with complication Code(s): F10.239 - Alcohol dependence with withdrawal, unspecified; R56.9 - Unspecified convulsions Status: Acute (4) Rhabdomyolysis Code(s): M62.82 - Rhabdomyolysis Status: Acute Plan: Resolved (5) Anemia Code(s): D64.9 - Anemia, unspecified Status: Acute Qualifiers: Anemia type: due to chronic kidney disease Plan: Increase Epo with HD. (6) Hypertension Code(s): I10 - Essential (primary) hypertension Status: Acute Plan: BP stable since addition of Amlodipine.
[2018-02-17] MEDS: Insulin Detemir Inj 1,000 UNIT/10 ML Vial SQ SCH (21:28)
[2018-02-18] MEDS: Oral Hygiene Kit OROPHARYNG SCH ×4 (00:57→15:22)
[2018-02-18] MEDS: Morphine Sulfate Inj 2 MG/ML Vial IV.PUSH PRN (00:57)
[2018-02-18] MEDS: Artificial Tears Opth Drops 15 ML Bottle EACH EYE SCH ×3 (00:58→15:22)
[2018-02-18] MEDS: Pantoprazole Inj 40 MG Vial IV.PUSH SCH ×2 (01:00→13:46)
[2018-02-18] MEDS: hydrALAZINE 25 MG Tablet PO SCH ×3 (05:36→21:23)
[2018-02-18] MEDS: Levothyroxine 88 MCG Tablet PO SCH (05:38)
[2018-02-18] MEDS: Insulin NovoLOG Aspart Correctional Sugar Inj SQ SCH ×4 (07:45→21:25)
--- NOTE | 2018-02-18 08:05 | XR ---
EXAM DATE: 02/18/2018 7:53 AM EST AGE/SEX: 62 years / Male INDICATIONS: Shortness of breath. CLINICAL DATA: This is the patient's initial encounter. Patient reports that signs and symptoms have been present for 1 day and indicates a pain score of 0/10. MEDICAL/SURGICAL HISTORY: Hypertension. CVA, ETOH, Anxiety, Diabetes. None. COMPARISON: [facility], CHEST 1V SINGLE AP, 02/06/2018. . FINDINGS: Dialysis catheter entering from the right subclavian. Mild interstitial edema with minimal parenchymal changes left base. The heart is minimally enlarged. The portion of the bony skeleton visualized is unremarkable. CONCLUSION: Mild interstitial edema suggesting fluid overload. Minimal parenchymal changes left base. Electronically signed by: Darinel Judd MD Board Certified Radiologist 02/18/2018 8:04 AM EST
[2018-02-18] MEDS: Chlorhexidine 0.12% Oral Kit 15 ML UDC OROPHARYNG SCH ×2 (08:55→20:23)
[2018-02-18] MEDS: Dextrose 5%/NaCl 0.9% Inj 1,000 ML IV.CONT SCH (08:57)
--- NOTE | 2018-02-18 11:13 | P.PNIM ---
Subjective Interval history: Follow-up for possible anoxic brain injury, hepatic encephalopathy, end-stage renal disease. Patient is doing well. No acute concerns. No fever, chills. Hemodialysis today. Physical Exam Vital signs: Last Vital Signs Temp 98.2 F 02/18/18 08:00 Pulse 74 02/18/18 08:00 Resp 20 02/18/18 08:00 BP 136/87 02/18/18 08:00 Pulse Ox 95 02/18/18 10:53 Intake & Output 02/16/18 02/17/18 02/18/18 02/19/18 06:59 06:59 06:59 06:59 Intake Total 850 / 850 240 / 240 240 / 240 Output Total 2500 / 2500 0 / 0 Balance -1650 / -1650 240 / 240 240 / 240 Weight 97.6 kg 97.2 kg 97.2 kg GENERAL: Alert, NAD. SKIN: Warm and dry. HEAD: Normocephalic. EYES: No scleral icterus. No injection or drainage. NECK: Supple, trachea midline. No JVD or lymphadenopathy. CARDIOVASCULAR: Regular rate and rhythm without murmurs, gallops, or rubs. RESPIRATORY: Breath sounds equal bilaterally. No accessory muscle use. GASTROINTESTINAL: Abdomen soft, non-tender, nondistended. MUSCULOSKELETAL: No cyanosis, or edema. BACK: Nontender without obvious deformity. No CVA tenderness. Urinary Catheter Management Indwelling Temp Sensing Catheter: Cath placed during this visit: yes, but has since been removed by the nurse Insertion date: 01/14/18 Insertion time: 22:00 Removal date: 01/21/18 Removal time: 18:00 Straight: Cath placed during this visit: no Results Labs CBC & Chem 7: 02/16/18 08:07 02/19/18 04:03 Imaging Imaging: Impressions Chest X-Ray 02/18/18 00:00 CONCLUSION: Mild interstitial edema suggesting fluid overload. Minimal parenchymal changes left base. Procedures Procedures: Left IJ HD tunneled cath placed 02/08/18 by IR Assessment and Plan Plan 62-year-old white male who was admitted with cardiogenic shock and acute respiratory failure requiring CPR and epinephrine in the field, after being found down at home and being witnessed to possibly have undergone seizure-like activity. Intubation was attempted in the field but were unable to do so, patient was ultimately intubated in the hospital, started on pressors, placed in the ICU on mechanical ventilation. Found to have bilateral pneumothoraces with chest tubes placed, had developed some pneumoperitoneum which surgically deemed might have been a leak from his chest tubes as opposed to an acute surgical abdomen. Patient was started on antibiotics empirically for possible aspiration pneumonia but was ultimately discontinued off of them by infectious disease. Developed rhabdomyolysis with worsening acute renal failure which became sustained, with the patient now undergoing dialysis. Ultimately was discontinued off pressors, cardiology deferred heart cath due to renal failure. Patient had difficulty following commands after he was discontinued off of sedation and after extubation. Had an MRI done on 01/17 which showed no acute findings, only an older right parietal CVA. EEG was done which was unremarkable. 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 Appeared to be making some mild improvement from a neurological standpoint. He passed a swallow evaluation. Appear to be more alert. Continue rehabilitation efforts with physical therapy/OT/speech Per Neurology, patient can be out of bed. Dysphasia: Related to encephalopathy. Probable anoxic injury from cardiogenic shock and respiratory failure. -Patient pulled out NG tube. Currently on Mechanical soft diet. End-stage renal disease Cont MWF hemodialysis. Nephrology following. Discussed with Nephrology. Patient will likely need permanent dialysis. CM is working on outpatient dialysis/placement arrangements. Possible seizure Continue Keppra 500mg PO BID. EEG was negative Non-STEMI Hypertension Troponins elevated to 0.52, 1.89 and 2.37. Cardiology recommended conservative medical management. Continue aspirin, carvedilol 6.25 twice daily, isosorbide dinitrate, atorvastatin 20 mg Continue amlodipine 5 mg daily Bilateral pneumothoraces pneumomediastinum acute respiratory failure chest tubes removed 01/28/2018 Continue oxygen supplementation Appreciate pulmonology following. Patient cannot tolerate BiPAP. Pneumoperitoneum with right retroperitoneal gas/gas around the right kidney Likely secondary to bilateral pneumothoraces with no surgical intervention warranted per general surgery Hepatitis secondary to shock Hepatic steatosis Cirrhosis Possible alcohol abuse Continue thiamine Continue folic acid Continue beta-blockers diabetes mellitus Diabetic diet Continue Aspart Sliding scale insulin. Will continue Levemir 5 units QHS. Goal BG 140-180. hypothyroidism continue levothyroxine Normocytic anemia Status post PRBC transfusion. H&H stable around 8. Full code. Heparin SQ. 02/18/2018: No acute changes in management. Will need outpatient dialysis set up as well as placement. Progress Note: Quality VTE Deep Vein Thrombosis/Pulmonary Embolism Present on Admission: No
[2018-02-18] MEDS: Calcium Acetate 667 MG Capsule PO SCH ×3 (13:39→18:00)
[2018-02-18] MEDS: Folic Acid 1 MG Tablet PO SCH (13:45)
[2018-02-18] MEDS: Carvedilol 6.25 MG Tablet PO SCH ×2 (13:45→21:24)
[2018-02-18] MEDS: Senna/Docusate Sodium 8.6/50 MG Tablet PO SCH ×2 (13:46→21:23)
[2018-02-18] MEDS: levETIRAcetam 500 MG Tablet PO SCH ×2 (13:46→21:23)
[2018-02-18] MEDS: amLODIPine 5 MG Tablet PO SCH (13:46)
--- NOTE | 2018-02-18 14:46 | P.PNNP ---
Subjective Interval history: Hemodialysis today, tolerated well. No acute events overnight. <Smiley Barth - Last Filed: 02/18/18 14:38> Physical Exam Vital signs: Vital Signs 02/17/18 16:00 02/17/18 16:24 02/17/18 20:00 Temperature 98.4 F 98.8 F Pulse Rate 81 85 81 Respiratory Rate 18 18 Blood Pressure 119/75 153/92 H Pulse Oximetry 93 L 93 L 02/18/18 00:00 02/18/18 04:00 02/18/18 04:29 Temperature 98.1 F 98.4 F Pulse Rate 77 78 75 Respiratory Rate 18 18 Blood Pressure 158/92 H 148/87 H Pulse Oximetry 91 L 93 L 02/18/18 08:00 02/18/18 10:53 02/18/18 12:00 Temperature 98.2 F Pulse Rate 74 97 H Respiratory Rate 20 Blood Pressure 136/87 Pulse Oximetry 94 L 95 Intake & Output 02/17/18 02/18/18 02/18/18 18:59 06:59 18:59 Intake Total 240 / 240 Balance 240 / 240 Weight 97.2 kg Intake: Oral 240 / 240 Other: # Voids 2 Date of Last Bowel Movement 02/14/18 02/17/18 02/17/18 Narrative: GENERAL:Alert and NAD. SKIN: Warm and dry. HEAD: Normocephalic. EYES: No scleral icterus. No injection or drainage. NECK: Supple, trachea midline. No JVD . CARDIOVASCULAR: Regular rate and rhythm without murmurs, gallops, or rubs. Hemodialysis PermCath in place right infraclavicular area appears to be intact. RESPIRATORY: Breath sounds equal bilaterally. Occ wheeze upper chest.No accessory muscle use. GASTROINTESTINAL: Abdomen soft, non-tender, nondistended. MUSCULOSKELETAL: No cyanosis, or edema. Moves feet and arms but weak. - Urinary Catheter Management Indwelling Temp Sensing Catheter Cath placed during this visit: yes, but has since been removed by the nurse Reason for continuing: Decision to DC catheter Insertion date: 01/14/18 Insertion time: 22:00 Removal date: 01/21/18 Removal time: 18:00 Straight Cath placed during this visit: no <Smiley Barth - Last Filed: 02/18/18 14:38> Vital signs: Vital Signs 02/18/18 00:00 02/18/18 03:30 02/18/18 04:00 Temperature 98.1 F 98.4 F 98.4 F Pulse Rate 77 86 78 Respiratory Rate 18 20 18 Blood Pressure 158/92 H 148/95 H 148/87 H Pulse Oximetry 91 L 93 L 93 L 02/18/18 04:29 02/18/18 08:00 02/18/18 10:53 Temperature 98.2 F Pulse Rate 75 74 Respiratory Rate 20 Blood Pressure 136/87 Pulse Oximetry 94 L 95 02/18/18 12:00 02/18/18 16:10 02/18/18 20:00 Temperature 97.6 F Pulse Rate 97 H 87 93 H Respiratory Rate 20 Blood Pressure 135/66 Pulse Oximetry 98 Intake & Output 02/18/18 02/18/18 02/19/18 06:59 18:59 06:59 Output Total 1500 / 1500 Balance -1500 / -1500 Weight 97.2 kg Output: Hemodialysis Amount 1500 / 1500 Other: # Voids 2 Date of Last Bowel Movement 02/17/18 02/17/18 - Urinary Catheter Management Indwelling Temp Sensing Catheter Cath placed during this visit: no Straight Cath placed during this visit: no <Brianna Blevins - Last Filed: 02/18/18 21:17> Assessment and Plan - Assessment (1) Acute renal failure Code(s): N17.9 - Acute kidney failure, unspecified Status: Acute Plan: Remains dialysis dependent at this time. First HD 01/17/18 , RIJ PermCath placed 02/08/18 Continue HD MWF schedule for the present. Medications should be adjusted for the patient's estimated GFR if clinically indicated. Avoid agents with significant potential for nephrotoxicity possible including NSAIDs for analgesia, iodine contrast agents. Gadolinium is contraindicated if the GFR is below 30. Continue calcium acetate for hyperphosphatemia. Continue HD MWF schedule for the present. HD today tolerated well (2) Anemia Code(s): D64.9 - Anemia, unspecified Status: Acute Qualifiers: Anemia type: due to chronic kidney disease Plan: Epogen with dialysis (3) Hypertension Code(s): I10 - Essential (primary) hypertension Status: Acute Plan: Well controlled, will monitor. (4) Diabetes Code(s): E11.9 - Type 2 diabetes mellitus without complications Status: Acute Plan: Maintain blood sugars between 140 mg /dl to 180 mg/dl while hospitalized. <Smiley Barth - Last Filed: 02/18/18 14:38> - Assessment (1) Acute renal failure Code(s): N17.9 - Acute kidney failure, unspecified Status: Acute Plan: Patient seen and examined, agree with above. Patient has been following with Dr. Rudd. He has SHERITA, Creatinine was normal last month. HD done in AM. Watch for renal recovery. (2) Anemia Code(s): D64.9 - Anemia, unspecified Status: Acute Qualifiers: Anemia type: due to chronic kidney disease (3) Hypertension Code(s): I10 - Essential (primary) hypertension Status: Acute (4) Diabetes Code(s): E11.9 - Type 2 diabetes mellitus without complications Status: Acute <Brianna Blevins - Last Filed: 02/18/18 21:17>
--- NOTE | 2018-02-18 19:42 | P.PN ---
Subjective Interval history: Went for dialysis. On O2 . No SOB at rest. CXR shows pulmonary edema Physical Exam Vital signs: Vital Signs 02/17/18 20:00 02/18/18 00:00 02/18/18 03:30 Temperature 98.8 F 98.1 F 98.4 F Pulse Rate 81 77 86 Respiratory Rate 18 18 20 Blood Pressure 153/92 H 158/92 H 148/95 H Pulse Oximetry 93 L 91 L 93 L 02/18/18 04:00 02/18/18 04:29 02/18/18 08:00 Temperature 98.4 F 98.2 F Pulse Rate 78 75 74 Respiratory Rate 18 20 Blood Pressure 148/87 H 136/87 Pulse Oximetry 93 L 94 L 02/18/18 10:53 02/18/18 12:00 02/18/18 16:10 Temperature Pulse Rate 97 H 87 Respiratory Rate Blood Pressure Pulse Oximetry 95 Intake & Output 02/18/18 02/18/18 02/19/18 06:59 18:59 06:59 Output Total 1500 / 1500 Balance -1500 / -1500 Weight 97.2 kg Output: Hemodialysis Amount 1500 / 1500 Other: # Voids 2 Date of Last Bowel Movement 02/17/18 02/17/18 Narrative: GENERAL:Alert obese W/M and NAD. SKIN: Warm and dry. HEAD: Normocephalic. EYES: No scleral icterus. No injection or drainage. NECK: Supple, trachea midline. No JVD . CARDIOVASCULAR: Regular rate and rhythm without murmurs, gallops, or rubs. Hemodialysis PermCath in place right infraclavicular area appears to be intact. RESPIRATORY: Breath sounds equal bilaterally. Occ wheeze upper chest.No accessory muscle use. GASTROINTESTINAL: Abdomen soft, non-tender, nondistended. MUSCULOSKELETAL: No cyanosis, or edema. Moves feet and arms but weak. - Urinary Catheter Management Indwelling Temp Sensing Catheter Cath placed during this visit: yes, but has since been removed by the nurse Reason for continuing: Decision to DC catheter Insertion date: 01/14/18 Insertion time: 22:00 Removal date: 01/21/18 Removal time: 18:00 Straight Cath placed during this visit: no Results - Labs CBC & Chem 7: 02/16/18 08:07 02/16/18 08:07 Laboratory Results - last 24 hr 02/17/18 02/18/18 02/18/18 21:37 07:44 12:09 POC Glucose 123 H 127 H 89 02/18/18 17:59 POC Glucose 95 - Imaging Impressions Chest X-Ray 02/18/18 00:00 CONCLUSION: Mild interstitial edema suggesting fluid overload. Minimal parenchymal changes left base. - Procedures Left IJ HD tunneled cath placed 02/08/18 by IR Assessment and Plan - Assessment (1) Encephalopathy acute Code(s): G93.40 - Encephalopathy, unspecified Status: Acute (2) Overdose Code(s): T50.901A - Poisoning by unspecified drugs, medicaments and biological substances, accidental (unintentional), initial encounter Status: Acute (3) Suicidal ideation Code(s): R45.851 - Suicidal ideations Status: Acute (4) Delirium tremens Code(s): F10.231 - Alcohol dependence with withdrawal delirium Status: Acute (5) Bilateral pneumothoraces Code(s): J93.9 - Pneumothorax, unspecified Status: Acute (6) Endotracheally intubated Code(s): Z97.8 - Presence of other specified devices Status: Acute (7) Elevated troponin Code(s): R74.8 - Abnormal levels of other serum enzymes Status: Acute (8) Acute renal failure Code(s): N17.9 - Acute kidney failure, unspecified Status: Acute (9) Alcohol abuse Code(s): F10.10 - Alcohol abuse, uncomplicated Status: Acute - Plan - Plan 1. Respiratory insufficiency, status post extubation on 01/25/2018. 2. s/p pneumothoraces on arrival, status post bilateral small bore chest tube placement on 01/15/2018. removed 01/28 3. Acute kidney injury.On Dialysis 4. Leukocytosis. 5. Anemia. 6. NSTEMI 7. Morbid obesity. 8. Hypertension. 9. Diabetes mellitus. 10. s/p seizures. Plan 1. Albuterol Inhaler , 2 puffs TID PRN 2. Soft diet 3. Labs in am 4. Up as tolerated 5. Dialysis as planned to clear fluid.. 6. Rehab placement 7. PT Evaluation (2) Overdose Qualifiers: Encounter type: initial encounter Injury intent: undetermined intent Qualified Code(s): T50.904A - Poisoning by unspecified drugs, medicaments and biological substances, undetermined, initial encounter
[2018-02-18] MEDS: Insulin Detemir Inj 1,000 UNIT/10 ML Vial SQ SCH (21:25)
[2018-02-19] MEDS: Dextrose 5%/NaCl 0.9% Inj 1,000 ML IV.CONT SCH ×2 (00:32→17:36)
[2018-02-19] MEDS: Oral Hygiene Kit OROPHARYNG SCH ×4 (00:32→15:37)
[2018-02-19] MEDS: Artificial Tears Opth Drops 15 ML Bottle EACH EYE SCH ×3 (00:35→15:37)
[2018-02-19] MEDS: Morphine Sulfate Inj 2 MG/ML Vial IV.PUSH PRN (01:52)
[2018-02-19] MEDS: Pantoprazole Inj 40 MG Vial IV.PUSH SCH ×2 (01:53→15:37)
[2018-02-19 05:00] LABS: Albumin 2.9 g/dL (3.4-5.0); Calcium 8.4 mg/dL (8.5-10.1); Carbon Dioxide 32.9 meq/L (21.0-32.0); Phosphorus 3.5 mg/dL (2.5-4.9); Potassium 3.7 meq/L (3.5-5.1)
[2018-02-19] MEDS: Levothyroxine 88 MCG Tablet PO SCH (06:10)
[2018-02-19] MEDS: hydrALAZINE 25 MG Tablet PO SCH ×3 (06:10→21:38)
[2018-02-19] MEDS: Chlorhexidine 0.12% Oral Kit 15 ML UDC OROPHARYNG SCH ×2 (09:28→21:34)
[2018-02-19] MEDS: Insulin NovoLOG Aspart Correctional Sugar Inj SQ SCH ×4 (09:28→21:40)
--- NOTE | 2018-02-19 09:47 | P.PNNP ---
Subjective Interval history: Patient is less agitated today. Hemodialysis yesterday tolerated well. Creatinine at remains elevated. <Smiley Barth - Last Filed: 02/19/18 15:09> Physical Exam Vital signs: Vital Signs 02/18/18 10:53 02/18/18 12:00 02/18/18 16:10 Temperature Pulse Rate 97 H 87 Respiratory Rate Blood Pressure Pulse Oximetry 95 02/18/18 20:00 02/19/18 00:00 02/19/18 02:10 Temperature 97.6 F 97.3 F L Pulse Rate 100 H 83 Respiratory Rate 20 20 16 Blood Pressure 135/66 114/68 Pulse Oximetry 98 94 L 02/19/18 03:00 02/19/18 04:25 02/19/18 07:05 Temperature 98.8 F 98.3 F Pulse Rate 82 80 85 Respiratory Rate 16 16 Blood Pressure 138/81 120/71 Pulse Oximetry 96 95 Intake & Output 02/18/18 02/19/18 02/19/18 18:59 06:59 18:59 Output Total 1500 / 1500 Balance -1500 / -1500 Weight 90.6 kg Output: Hemodialysis Amount 1500 / 1500 Other: # Incontinent Voids 2 Date of Last Bowel Movement 02/17/18 02/17/18 Narrative: GENERAL:Alert obese W/M and NAD. SKIN: Warm and dry. HEAD: Normocephalic. EYES: No scleral icterus. No injection or drainage. NECK: Supple, trachea midline. No JVD . CARDIOVASCULAR: Regular rate and rhythm without murmurs, gallops, or rubs. Hemodialysis PermCath in place right infraclavicular area appears to be intact. RESPIRATORY: Breath sounds equal bilaterally. Occ wheeze upper chest.No accessory muscle use. GASTROINTESTINAL: Abdomen soft, non-tender, nondistended. MUSCULOSKELETAL: No cyanosis, or edema. Moves feet and arms but weak. - Urinary Catheter Management Indwelling Temp Sensing Catheter Cath placed during this visit: yes, but has since been removed by the nurse Reason for continuing: Decision to DC catheter Insertion date: 01/14/18 Insertion time: 22:00 Removal date: 01/21/18 Removal time: 18:00 Straight Cath placed during this visit: no <Smiley Barth - Last Filed: 02/19/18 15:09> Vital signs: Vital Signs 02/19/18 00:00 02/19/18 02:10 02/19/18 03:00 Temperature 97.3 F L Pulse Rate 83 82 Respiratory Rate 20 16 Blood Pressure 114/68 Pulse Oximetry 94 L 02/19/18 03:30 02/19/18 04:25 02/19/18 07:05 Temperature 99.0 F 98.8 F 98.3 F Pulse Rate 82 80 85 Respiratory Rate 20 16 16 Blood Pressure 145/80 H 138/81 120/71 Pulse Oximetry 92 L 96 95 02/19/18 08:00 02/19/18 12:00 Temperature 98.1 F Pulse Rate 85 82 Respiratory Rate 20 Blood Pressure 123/75 Pulse Oximetry 92 L Intake & Output 02/19/18 02/19/18 02/20/18 06:59 18:59 06:59 Intake Total 240 / 240 Balance 240 / 240 Weight 90.6 kg Intake: Oral 240 / 240 Other: # Voids 5 # Incontinent Voids 2 Date of Last Bowel Movement 02/17/18 02/17/18 - Urinary Catheter Management Indwelling Temp Sensing Catheter Cath placed during this visit: no Straight Cath placed during this visit: no <Brianna Blevins - Last Filed: 02/19/18 21:27> Assessment and Plan - Assessment (1) Acute renal failure Code(s): N17.9 - Acute kidney failure, unspecified Status: Acute Plan: Remains dialysis dependent at this time. First HD 01/17/18 , RIJ PermCath placed 02/08/18 Continue HD MWF schedule for the present. Medications should be adjusted for the patient's estimated GFR if clinically indicated. Avoid agents with significant potential for nephrotoxicity possible including NSAIDs for analgesia, iodine contrast agents. Gadolinium is contraindicated if the GFR is below 30. Continue calcium acetate for hyperphosphatemia. Continue HD MWF schedule for the present. HD yesterday tolerated well with with removal of 1.5 liters. Will continue to watch for renal recovery. (2) Anemia Code(s): D64.9 - Anemia, unspecified Status: Acute Qualifiers: Anemia type: due to chronic kidney disease Plan: Epogen with dialysis (3) Hypertension Code(s): I10 - Essential (primary) hypertension Status: Acute Plan: Well controlled, will monitor. (4) Diabetes Code(s): E11.9 - Type 2 diabetes mellitus without complications Status: Acute Plan: Maintain blood sugars between 140 mg /dl to 180 mg/dl while hospitalized. <Smiley Barth - Last Filed: 02/19/18 15:09> - Assessment (1) Acute renal failure Code(s): N17.9 - Acute kidney failure, unspecified Status: Acute Plan: Patient seen and examined, agree with above. HD done yesterday, watch for renal recovery, HD as needed. (2) Anemia Code(s): D64.9 - Anemia, unspecified Status: Acute Qualifiers: Anemia type: due to chronic kidney disease (3) Hypertension Code(s): I10 - Essential (primary) hypertension Status: Acute (4) Diabetes Code(s): E11.9 - Type 2 diabetes mellitus without complications Status: Acute <Brianna Blevins - Last Filed: 02/19/18 21:27>
[2018-02-19] MEDS: levETIRAcetam 500 MG Tablet PO SCH ×2 (10:14→21:39)
[2018-02-19] MEDS: Carvedilol 6.25 MG Tablet PO SCH ×2 (10:14→21:40)
[2018-02-19] MEDS: Folic Acid 1 MG Tablet PO SCH (10:14)
[2018-02-19] MEDS: amLODIPine 5 MG Tablet PO SCH (10:15)
[2018-02-19] MEDS: Senna/Docusate Sodium 8.6/50 MG Tablet PO SCH ×2 (10:15→21:39)
[2018-02-19] MEDS: Calcium Acetate 667 MG Capsule PO SCH ×3 (10:15→17:37)
--- NOTE | 2018-02-19 16:10 | P.PNIM ---
Subjective Interval history: Follow-up for possible anoxic brain injury, hepatic encephalopathy, end-stage renal disease. Patient is currently doing well. Resting in bed. No acute concerns. No fever or chills. Physical Exam Vital signs: Last Vital Signs Temp 98.1 F 02/19/18 12:00 Pulse 82 02/19/18 12:00 Resp 20 02/19/18 12:00 BP 123/75 02/19/18 12:00 Pulse Ox 92 L 02/19/18 12:00 Intake & Output 02/17/18 02/18/18 02/19/18 02/20/18 06:59 06:59 06:59 06:59 Intake Total 240 / 240 240 / 240 Output Total 0 / 0 1500 / 1500 Balance 240 / 240 240 / 240 -1500 / -1500 Weight 97.2 kg 97.2 kg 90.6 kg GENERAL: Alert, NAD. Somewhat sleepy today. Wakes up on verbal commands. SKIN: Warm and dry. HEAD: Normocephalic. EYES: No scleral icterus. No injection or drainage. NECK: Supple, trachea midline. No JVD or lymphadenopathy. CARDIOVASCULAR: Regular rate and rhythm without murmurs, gallops, or rubs. RESPIRATORY: Breath sounds equal bilaterally. No accessory muscle use. GASTROINTESTINAL: Abdomen soft, non-tender, nondistended. MUSCULOSKELETAL: No cyanosis, or edema. BACK: Nontender without obvious deformity. No CVA tenderness. Urinary Catheter Management Indwelling Temp Sensing Catheter: Cath placed during this visit: yes, but has since been removed by the nurse Insertion date: 01/14/18 Insertion time: 22:00 Removal date: 01/21/18 Removal time: 18:00 Straight: Cath placed during this visit: no Results Labs CBC & Chem 7: 02/16/18 08:07 02/19/18 04:03 Procedures Procedures: Left IJ HD tunneled cath placed 02/08/18 by IR Assessment and Plan (1) Acute renal failure: Code(s): N17.9 - Acute kidney failure, unspecified Status: Acute (2) Anemia: Code(s): D64.9 - Anemia, unspecified Status: Acute (3) Hypertension: Code(s): I10 - Essential (primary) hypertension Status: Acute (4) Diabetes: Code(s): E11.9 - Type 2 diabetes mellitus without complications Status: Acute Plan 62-year-old white male who was admitted with cardiogenic shock and acute respiratory failure requiring CPR and epinephrine in the field, after being found down at home and being witnessed to possibly have undergone seizure-like activity. Intubation was attempted in the field but were unable to do so, patient was ultimately intubated in the hospital, started on pressors, placed in the ICU on mechanical ventilation. Found to have bilateral pneumothoraces with chest tubes placed, had developed some pneumoperitoneum which surgically deemed might have been a leak from his chest tubes as opposed to an acute surgical abdomen. Patient was started on antibiotics empirically for possible aspiration pneumonia but was ultimately discontinued off of them by infectious disease. Developed rhabdomyolysis with worsening acute renal failure which became sustained, with the patient now undergoing dialysis. Ultimately was discontinued off pressors, cardiology deferred heart cath due to renal failure. Patient had difficulty following commands after he was discontinued off of sedation and after extubation. Had an MRI done on 01/17 which showed no acute findings, only an older right parietal CVA. EEG was done which was unremarkable. 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 Appeared to be making some mild improvement from a neurological standpoint. He passed a swallow evaluation. Appear to be more alert. Continue rehabilitation efforts with physical therapy/OT/speech Per Neurology, patient can be out of bed. Dysphasia: Related to encephalopathy. Probable anoxic injury from cardiogenic shock and respiratory failure. -Patient pulled out NG tube. Currently on Mechanical soft diet. End-stage renal disease Cont MWF hemodialysis. Nephrology following. Discussed with Nephrology. Patient will likely need permanent dialysis. CM is working on outpatient dialysis/placement arrangements. Possible seizure Continue Keppra 500mg PO BID. EEG was negative Non-STEMI Hypertension Troponins elevated to 0.52, 1.89 and 2.37. Cardiology recommended conservative medical management. Continue aspirin, carvedilol 6.25 twice daily, isosorbide dinitrate, atorvastatin 20 mg Continue amlodipine 5 mg daily Bilateral pneumothoraces pneumomediastinum acute respiratory failure chest tubes removed 01/28/2018 Continue oxygen supplementation Appreciate pulmonology following. Patient cannot tolerate BiPAP. Pneumoperitoneum with right retroperitoneal gas/gas around the right kidney Likely secondary to bilateral pneumothoraces with no surgical intervention warranted per general surgery Hepatitis secondary to shock Hepatic steatosis Cirrhosis Possible alcohol abuse Continue thiamine Continue folic acid Continue beta-blockers diabetes mellitus Diabetic diet Continue Aspart Sliding scale insulin. Will continue Levemir 5 units QHS. Goal BG 140-180. hypothyroidism continue levothyroxine Normocytic anemia Status post PRBC transfusion. H&H stable around 8. Full code. Heparin SQ. 02/19/2018: No acute changes in management. Will need final determination by nephrology whether patient needs permanent dialysis or not. Case management is aware of the need for permanent dialysis. 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
--- NOTE | 2018-02-19 19:12 | P.PN ---
Subjective Interval history: Stable and having no resp problems. Off O2. Had dialysis. Moves feet better. taking pureed food. Physical Exam Vital signs: Vital Signs 02/18/18 20:00 02/19/18 00:00 02/19/18 02:10 Temperature 97.6 F 97.3 F L Pulse Rate 100 H 83 Respiratory Rate 20 20 16 Blood Pressure 135/66 114/68 Pulse Oximetry 98 94 L 02/19/18 03:00 02/19/18 03:30 02/19/18 04:25 Temperature 99.0 F 98.8 F Pulse Rate 82 82 80 Respiratory Rate 20 16 Blood Pressure 145/80 H 138/81 Pulse Oximetry 92 L 96 02/19/18 07:05 02/19/18 08:00 02/19/18 12:00 Temperature 98.3 F 98.1 F Pulse Rate 85 85 82 Respiratory Rate 16 20 Blood Pressure 120/71 123/75 Pulse Oximetry 95 92 L Intake & Output 02/19/18 02/19/18 02/20/18 06:59 18:59 06:59 Intake Total 240 / 240 Balance 240 / 240 Weight 90.6 kg Intake: Oral 240 / 240 Other: # Voids 5 # Incontinent Voids 2 Date of Last Bowel Movement 02/17/18 02/17/18 Narrative: GENERAL:Alert obese W/M and NAD. SKIN: Warm and dry. HEAD: Normocephalic. EYES: No scleral icterus. No injection or drainage. NECK: Supple, trachea midline. No JVD . CARDIOVASCULAR: Regular rate and rhythm without murmurs, gallops, or rubs. Hemodialysis PermCath in place right infraclavicular area appears to be intact. RESPIRATORY: Breath sounds equal bilaterally.clear lungs .No accessory muscle use. GASTROINTESTINAL: Abdomen soft, non-tender, nondistended. MUSCULOSKELETAL: No cyanosis, or edema. Moves feet and arms but weak. - Urinary Catheter Management Indwelling Temp Sensing Catheter Cath placed during this visit: yes, but has since been removed by the nurse Reason for continuing: Decision to DC catheter Insertion date: 01/14/18 Insertion time: 22:00 Removal date: 01/21/18 Removal time: 18:00 Straight Cath placed during this visit: no Results - Labs CBC & Chem 7: 02/16/18 08:07 02/19/18 04:03 Laboratory Results - last 24 hr 02/18/18 02/19/18 02/19/18 20:21 04:03 12:33 Sodium 138 Potassium 3.7 Chloride 98 Carbon Dioxide 32.9 H Anion Gap 7 BUN 18 Creatinine 6.17 H Estimated GFR 9 L POC Glucose 130 H 113 H Random Glucose 83 Calcium 8.4 L Phosphorus 3.5 Albumin 2.9 L - Procedures Left IJ HD tunneled cath placed 02/08/18 by IR Assessment and Plan - Assessment (1) Encephalopathy acute Code(s): G93.40 - Encephalopathy, unspecified Status: Acute (2) Overdose Code(s): T50.901A - Poisoning by unspecified drugs, medicaments and biological substances, accidental (unintentional), initial encounter Status: Acute (3) Suicidal ideation Code(s): R45.851 - Suicidal ideations Status: Acute (4) Delirium tremens Code(s): F10.231 - Alcohol dependence with withdrawal delirium Status: Acute (5) Bilateral pneumothoraces Code(s): J93.9 - Pneumothorax, unspecified Status: Acute (6) Endotracheally intubated Code(s): Z97.8 - Presence of other specified devices Status: Acute (7) Elevated troponin Code(s): R74.8 - Abnormal levels of other serum enzymes Status: Acute (8) Acute renal failure Code(s): N17.9 - Acute kidney failure, unspecified Status: Acute (9) Alcohol abuse Code(s): F10.10 - Alcohol abuse, uncomplicated Status: Acute - Plan - Plan 1. Respiratory insufficiency, status post extubation on 01/25/2018. 2. s/p pneumothoraces on arrival, status post bilateral small bore chest tube placement on 01/15/2018. removed 01/28 3. Acute kidney injury.On Dialysis 4. Leukocytosis. 5. Anemia. 6. NSTEMI 7. Morbid obesity. 8. Hypertension. 9. Diabetes mellitus. 10. s/p seizures. Plan 1. Cont Albuterol Inhaler , 2 puffs TID PRN 2. CXR in am 3. Labs in am 4. Up as tolerated 5. Dialysis as planned to clear fluid. 6. Rehab placement 7. PT Evaluation (2) Overdose Qualifiers: Encounter type: initial encounter Injury intent: undetermined intent Qualified Code(s): T50.904A - Poisoning by unspecified drugs, medicaments and biological substances, undetermined, initial encounter
[2018-02-19] MEDS: Insulin Detemir Inj 1,000 UNIT/10 ML Vial SQ SCH (22:04)
[2018-02-20] MEDS: Artificial Tears Opth Drops 15 ML Bottle EACH EYE SCH ×3 (00:28→18:31)
[2018-02-20] MEDS: Pantoprazole Inj 40 MG Vial IV.PUSH SCH ×2 (02:57→14:23)
[2018-02-20] MEDS: Oral Hygiene Kit OROPHARYNG SCH ×4 (02:58→20:00)
[2018-02-20] MEDS: Morphine Sulfate Inj 2 MG/ML Vial IV.PUSH PRN (03:25)
[2018-02-20] MEDS: hydrALAZINE 25 MG Tablet PO SCH ×3 (06:14→21:39)
[2018-02-20] MEDS: Levothyroxine 88 MCG Tablet PO SCH (06:14)
[2018-02-20] MEDS: Insulin NovoLOG Aspart Correctional Sugar Inj SQ SCH ×4 (08:33→21:40)
[2018-02-20] MEDS: Chlorhexidine 0.12% Oral Kit 15 ML UDC OROPHARYNG SCH ×2 (08:33→21:35)
[2018-02-20] MEDS: Carvedilol 6.25 MG Tablet PO SCH ×2 (08:35→21:39)
[2018-02-20] MEDS: Folic Acid 1 MG Tablet PO SCH (08:35)
[2018-02-20] MEDS: levETIRAcetam 500 MG Tablet PO SCH ×2 (08:35→21:40)
[2018-02-20] MEDS: amLODIPine 5 MG Tablet PO SCH (08:36)
[2018-02-20] MEDS: Calcium Acetate 667 MG Capsule PO SCH ×3 (08:41→20:00)
--- NOTE | 2018-02-20 09:09 | XR ---
EXAM DATE: 02/20/2018 8:46 AM EST AGE/SEX: 62 years / Male INDICATIONS: Respiratory distress. CLINICAL DATA: This is the patient's subsequent encounter. Patient reports that signs and symptoms h ave been present for 1 month and indicates a pain score of 5/10. MEDICAL/SURGICAL HISTORY: . Hypertension. CVA. ETOH. Anxiety. Diabetes. None. COMPARISON: C, CHEST 1V SINGLE AP, 02/18/2018. . FINDINGS: Dialysis catheter in good position. The heart is enlarged. Increasing bibasilar changes in both bases worse on the left. There are some developing air bronchogr ams left base. CONCLUSION: Minimal deterioration with increasing air bronchograms left base Electronically signed by: Darinel Judd MD Board Certified Radiologist 02/20/2018 9:07 AM EST
--- NOTE | 2018-02-20 10:53 | P.PNNP ---
Subjective Interval history: Seen during hemodialysis tolerating well. Denies any shortness of breath, nausea or vomiting. <Smiley Barth - Last Filed: 02/20/18 15:06> Physical Exam Vital signs: Vital Signs 02/19/18 12:00 02/19/18 20:00 02/19/18 23:48 Temperature 98.1 F 98.4 F Pulse Rate 82 71 72 Respiratory Rate 20 16 Blood Pressure 123/75 152/87 H Pulse Oximetry 92 L 92 L 02/20/18 00:00 02/20/18 03:56 02/20/18 04:00 Temperature 98.3 F 98.2 F Pulse Rate 82 76 80 Respiratory Rate 19 18 Blood Pressure 155/82 H 151/88 H Pulse Oximetry 92 L 93 L 02/20/18 08:00 Temperature 98.3 F Pulse Rate 79 Respiratory Rate 20 Blood Pressure 131/75 Pulse Oximetry 91 L Intake & Output 02/19/18 02/20/18 02/20/18 18:59 06:59 18:59 Intake Total 240 / 240 Output Total 0 / 0 Balance 240 / 240 0 / 0 Weight 99.3 kg Intake: Oral 240 / 240 Output: Urine 0 / 0 Other: # Voids 5 0 Date of Last Bowel Movement 02/17/18 02/17/18 Narrative: GENERAL:Alert obese W/M and NAD. SKIN: Warm and dry. HEAD: Normocephalic. EYES: No scleral icterus. No injection or drainage. NECK: Supple, trachea midline. No JVD . CARDIOVASCULAR: Regular rate and rhythm without murmurs, gallops, or rubs. Hemodialysis PermCath in place right infraclavicular area appears to be intact. RESPIRATORY: Breath sounds equal bilaterally.clear lungs .No accessory muscle use. GASTROINTESTINAL: Abdomen soft, non-tender, nondistended. MUSCULOSKELETAL: No cyanosis, or edema. Moves feet and arms but weak. - Urinary Catheter Management Indwelling Temp Sensing Catheter Cath placed during this visit: yes, but has since been removed by the nurse Reason for continuing: Decision to DC catheter Insertion date: 01/14/18 Insertion time: 22:00 Removal date: 01/21/18 Removal time: 18:00 Straight Cath placed during this visit: no <Smiley Barth - Last Filed: 02/20/18 15:06> Vital signs: Vital Signs 02/19/18 23:48 02/20/18 00:00 02/20/18 03:56 Temperature 98.3 F Pulse Rate 72 82 76 Respiratory Rate 19 Blood Pressure 155/82 H Pulse Oximetry 92 L 02/20/18 04:00 02/20/18 08:00 02/20/18 16:00 Temperature 98.2 F 98.3 F 98.9 F Pulse Rate 80 73 97 H Respiratory Rate 18 20 20 Blood Pressure 151/88 H 131/75 122/66 Pulse Oximetry 93 L 91 L 92 L Intake & Output 02/20/18 02/20/18 02/21/18 06:59 18:59 06:59 Output Total 0 / 0 2850 / 2850 Balance 0 / 0 -2850 / -2850 Weight 99.3 kg Output: Urine 0 / 0 350 / 350 Hemodialysis Amount 2500 / 2500 Other: # Voids 0 Date of Last Bowel Movement 02/17/18 02/17/18 - Urinary Catheter Management Indwelling Temp Sensing Catheter Cath placed during this visit: no Straight Cath placed during this visit: no <Brianna Blevins - Last Filed: 02/20/18 22:47> Assessment and Plan - Assessment (1) Acute renal failure Code(s): N17.9 - Acute kidney failure, unspecified Status: Acute Plan: Remains dialysis dependent at this time. First HD 01/17/18 , RIJ PermCath placed 02/08/18 Continue HD MWF schedule for the present. Medications should be adjusted for the patient's estimated GFR if clinically indicated. Avoid agents with significant potential for nephrotoxicity possible including NSAIDs for analgesia, iodine contrast agents. Gadolinium is contraindicated if the GFR is below 30. Continue calcium acetate for hyperphosphatemia. Continue HD MWF schedule for the present. Seen during HD today tolerating well plan to remove 2.5 liters of fluid. (2) Anemia Code(s): D64.9 - Anemia, unspecified Status: Acute Qualifiers: Anemia type: due to chronic kidney disease Plan: Epogen with dialysis (3) Hypertension Code(s): I10 - Essential (primary) hypertension Status: Acute Plan: Well controlled, will monitor. (4) Diabetes Code(s): E11.9 - Type 2 diabetes mellitus without complications Status: Acute Plan: Maintain blood sugars between 140 mg /dl to 180 mg/dl while hospitalized. Well controlled. <Smiley Barth - Last Filed: 02/20/18 15:06> - Assessment (1) Acute renal failure Code(s): N17.9 - Acute kidney failure, unspecified Status: Acute Plan: Patient seen and examined, agree with above.Continue HD MWF. Urine out put is low, Watch for renal recovery. (2) Anemia Code(s): D64.9 - Anemia, unspecified Status: Acute Qualifiers: Anemia type: due to chronic kidney disease (3) Hypertension Code(s): I10 - Essential (primary) hypertension Status: Acute (4) Diabetes Code(s): E11.9 - Type 2 diabetes mellitus without complications Status: Acute <Brianna Blevins - Last Filed: 02/20/18 22:47>
[2018-02-20] MEDS: Senna/Docusate Sodium 8.6/50 MG Tablet PO SCH ×2 (11:11→21:39)
[2018-02-20] MEDS: Dextrose 5%/NaCl 0.9% Inj 1,000 ML IV.CONT SCH (11:15)
[2018-02-20] MEDS: Heparin 10,000 UNITS/10 ML Vial (for IV use) OTHER PRN (11:33)
[2018-02-20] MEDS ORDERED: Tuberculin PPD 5 UNITS/0.1 ML Syringe I-DERMAL ONE (19:38)
--- NOTE | 2018-02-20 19:38 | P.PNIM ---
Subjective Interval history: Follow-up for possible anoxic brain injury, hepatic encephalopathy, end-stage renal disease. Patient is more alert today. He complains of some nausea. He is also requesting grape flavor popsicle. Physical Exam Vital signs: Last Vital Signs Temp 98.9 F 02/20/18 16:00 Pulse 97 H 02/20/18 16:00 Resp 20 02/20/18 16:00 BP 122/66 02/20/18 16:00 Pulse Ox 92 L 02/20/18 16:00 Intake & Output 02/18/18 02/19/18 02/20/18 02/21/18 06:59 06:59 06:59 06:59 Intake Total 240 / 240 240 / 240 Output Total 1500 / 1500 0 / 0 2500 / 2500 Balance 240 / 240 -1500 / -1500 240 / 240 -2500 / -2500 Weight 97.2 kg 90.6 kg 99.3 kg Narrative: GENERAL:Alert obese W/M and NAD. SKIN: Warm and dry. HEAD: Normocephalic. EYES: No scleral icterus. No injection or drainage. NECK: Supple, trachea midline. No JVD . CARDIOVASCULAR: Regular rate and rhythm without murmurs, gallops, or rubs. Hemodialysis PermCath in place right infraclavicular area appears to be intact. RESPIRATORY: Breath sounds equal bilaterally.clear lungs .No accessory muscle use. GASTROINTESTINAL: Abdomen soft, non-tender, nondistended. MUSCULOSKELETAL: No cyanosis, or edema. Moves feet and arms but weak. Urinary Catheter Management Indwelling Temp Sensing Catheter: Cath placed during this visit: yes, but has since been removed by the nurse Insertion date: 01/14/18 Insertion time: 22:00 Removal date: 01/21/18 Removal time: 18:00 Straight: Cath placed during this visit: no Results Labs CBC & Chem 7: 02/16/18 08:07 02/19/18 04:03 Imaging Imaging: Impressions Chest X-Ray 02/20/18 00:00 CONCLUSION: Minimal deterioration with increasing air bronchograms left base Procedures Procedures: Left IJ HD tunneled cath placed 02/08/18 by IR Assessment and Plan (1) Acute renal failure: Code(s): N17.9 - Acute kidney failure, unspecified Status: Acute (2) Anemia: Code(s): D64.9 - Anemia, unspecified Status: Acute (3) Hypertension: Code(s): I10 - Essential (primary) hypertension Status: Acute (4) Diabetes: Code(s): E11.9 - Type 2 diabetes mellitus without complications Status: Acute Plan 62-year-old white male who was admitted with cardiogenic shock and acute respiratory failure requiring CPR and epinephrine in the field, after being found down at home and being witnessed to possibly have undergone seizure-like activity. Intubation was attempted in the field but were unable to do so, patient was ultimately intubated in the hospital, started on pressors, placed in the ICU on mechanical ventilation. Found to have bilateral pneumothoraces with chest tubes placed, had developed some pneumoperitoneum which surgically deemed might have been a leak from his chest tubes as opposed to an acute surgical abdomen. Patient was started on antibiotics empirically for possible aspiration pneumonia but was ultimately discontinued off of them by infectious disease. Developed rhabdomyolysis with worsening acute renal failure which became sustained, with the patient now undergoing dialysis. Ultimately was discontinued off pressors, cardiology deferred heart cath due to renal failure. Patient had difficulty following commands after he was discontinued off of sedation and after extubation. Had an MRI done on 01/17 which showed no acute findings, only an older right parietal CVA. EEG was done which was unremarkable. 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 Appeared to be making some mild improvement from a neurological standpoint. He passed a swallow evaluation. Appear to be more alert. Continue rehabilitation efforts with physical therapy/OT/speech Per Neurology, patient can be out of bed. Dysphasia: Related to encephalopathy. Probable anoxic injury from cardiogenic shock and respiratory failure. -Patient pulled out NG tube. Currently on Mechanical soft diet. End-stage renal disease Cont MWF hemodialysis. Nephrology following. Discussed with Nephrology. Patient will likely need permanent dialysis. CM is working on outpatient dialysis/placement arrangements. Possible seizure Continue Keppra 500mg PO BID. EEG was negative Non-STEMI Hypertension Troponins elevated to 0.52, 1.89 and 2.37. Cardiology recommended conservative medical management. Continue aspirin, carvedilol 6.25 twice daily, isosorbide dinitrate, atorvastatin 20 mg Continue amlodipine 5 mg daily Bilateral pneumothoraces pneumomediastinum acute respiratory failure chest tubes removed 01/28/2018 Continue oxygen supplementation Appreciate pulmonology following. Patient cannot tolerate BiPAP. Pneumoperitoneum with right retroperitoneal gas/gas around the right kidney Likely secondary to bilateral pneumothoraces with no surgical intervention warranted per general surgery Hepatitis secondary to shock Hepatic steatosis Cirrhosis Possible alcohol abuse Continue thiamine Continue folic acid Continue beta-blockers diabetes mellitus Diabetic diet Continue Aspart Sliding scale insulin. Will continue Levemir 5 units QHS. Goal BG 140-180. hypothyroidism continue levothyroxine Normocytic anemia Status post PRBC transfusion. H&H stable around 8. Full code. Heparin SQ. 02/20/2018: No acute changes in management. Will need final determination by nephrology whether patient needs permanent dialysis or not. Case management is aware of the need for permanent dialysis. Progress Note: Quality VTE Deep Vein Thrombosis/Pulmonary Embolism Present on Admission: No _ (1) Acute renal failure Qualifiers: Acute renal failure type: (2) Anemia Qualifiers: Anemia type: due to chronic kidney disease Iron deficiency anemia type: Vitamin B12 deficiency anemia type: Folate deficiency anemia type: Bone marrow failure anemia type: Hemolytic anemia type: Other causes of anemia: Chronic kidney disease stage: (3) Hypertension Qualifiers: Hypertension type: (4) Diabetes Qualifiers: Diabetes mellitus type: Diabetes mellitus half-way insulin use: Diabetes mellitus complication status: Diabetes mellitus complication detail: Diabetic retinopathy severity: Proliferative retinopathy type: Diabetes mellitus macular edema: Laterality: Chronic kidney disease stage:
[2018-02-20] MEDS: Insulin Detemir Inj 1,000 UNIT/10 ML Vial SQ SCH (21:40)
[2018-02-21] MEDS: Oral Hygiene Kit OROPHARYNG SCH ×4 (00:22→17:35)
[2018-02-21] MEDS: Artificial Tears Opth Drops 15 ML Bottle EACH EYE SCH ×3 (00:26→17:35)
[2018-02-21] MEDS: Pantoprazole Inj 40 MG Vial IV.PUSH SCH ×2 (01:47→13:52)
[2018-02-21] MEDS: Dextrose 5%/NaCl 0.9% Inj 1,000 ML IV.CONT SCH ×2 (05:21→19:51)
[2018-02-21] MEDS: hydrALAZINE 25 MG Tablet PO SCH ×3 (05:24→22:06)
[2018-02-21] MEDS: Levothyroxine 88 MCG Tablet PO SCH (05:24)
[2018-02-21] MEDS: Insulin NovoLOG Aspart Correctional Sugar Inj SQ SCH ×4 (09:04→22:07)
--- NOTE | 2018-02-21 09:16 | P.PNNEU ---
Subjective Active Medications: Active Medications Acetaminophen (Tylenol) 650 mg PO UNSCH PRN PRN Reason: SEE LABEL COMMENTS Al Hydroxide/Mg Hydroxide (Milk Of Orion Liq) 30 ml PO Q12H PRN PRN Reason: Mild Constipation Albuterol (Duoneb Neb (Prn)) 1 ampul NEB Q2HR NEB PRN PRN Reason: DYSPNEA Amlodipine Besylate (Norvasc) 5 mg PO DAILY ON LICENSE OF [facility] Last Admin: 02/20/18 08:36 Dose: 5 mg Artificial Tears (Tears Naturale Opth Drops) 1 drop EACH EYE Q8H ON LICENSE OF [facility] Last Admin: 02/21/18 00:26 Dose: 1 drop Aspirin (Aspirin Chew) 81 mg PO DAILY ON LICENSE OF [facility] Last Admin: 02/20/18 08:41 Dose: 81 mg Atorvastatin Calcium (Lipitor) 20 mg PO DAILY ON LICENSE OF [facility] Last Admin: 02/20/18 11:11 Dose: Not Given Bisacodyl (Dulcolax Supp) 10 mg RECTAL DAILY PRN PRN Reason: SEVERE CONSITIPATION Calcium Acetate (Phoslo) 667 mg PO TID ON LICENSE OF [facility] Last Admin: 02/20/18 20:00 Dose: Not Given Carvedilol (Coreg) 6.25 mg PO BID ON LICENSE OF [facility] Last Admin: 02/20/18 21:39 Dose: 6.25 mg Chlorhexidine Gluconate (Peridex 0.12% Oral Kit) 15 ml OROPHARYNG BID@0800, 2000 ON LICENSE OF [facility] Last Admin: 02/20/18 21:35 Dose: Not Given Clonidine HCl (Catapres) 0.1 mg PO UNSCH PRN PRN Reason: SEE LABEL COMMENTS Dextrose (D50w Vial) 50 ml IV.PUSH UNSCH PRN PRN Reason: PER HYPOGLYCEMIA PROTOCOL Diphenhydramine HCl (Benadryl) 25 mg PO UNSCH PRN PRN Reason: SEE LABEL COMMENTS Epoetin Jaleel (Epogen Inj) 10,000 unit DIALYSYS MoWeFr ON LICENSE OF [facility] Last Admin: 02/20/18 20:00 Dose: Not Given Folic Acid (Folic Acid) 1 mg PO DAILY ON LICENSE OF [facility] Last Admin: 02/20/18 08:35 Dose: 1 mg Furosemide (Lasix Inj) 20 mg IV.PUSH ONCE PRN PRN Reason: Between Units of blood Last Admin: 02/01/18 23:34 Dose: 20 mg Gelatin (Gelfoam 12 Mm/7 Mm Topical) 1 foam TOPICAL PRN PRN PRN Reason: help stop bleeding from site Gentamicin Sulfate (Gentamicin Inj) 20 mg OTHER WITH DIALYSIS PRN PRN Reason: Dwell Gentamycin Lock Last Admin: 02/20/18 11:33 Dose: 20 mg Glucagon (Glucagon Inj) 1 mg OTHER PRN PRN PRN Reason: for Hypoglycemia Protocol Heparin Sodium (Porcine) (Heparin Inj) 0 units IV.FLUSH WITH DIALYSIS PRN PRN Reason: Flush each lumen Last Admin: 01/25/18 08:38 Dose: 2,000 units Heparin Sodium (Porcine) (Heparin Inj) 8,000 units OTHER WITH DIALYSIS PRN PRN Reason: for machine prime Heparin Sodium (Porcine) (Heparin Inj) 1,000 units OTHER WITH DIALYSIS PRN PRN Reason: Dwell Heparin to Fill Catheter Last Admin: 02/20/18 11:33 Dose: 1,000 units Heparin Sodium (Porcine) (Heparin Inj) 5,000 units SQ Q12HR HENRY Hydralazine HCl (Apresoline Inj) 10 mg IV.PUSH Q1H PRN PRN Reason: sbp > 165 Last Admin: 01/27/18 00:30 Dose: 10 mg Hydralazine HCl (Apresoline) 100 mg PO Q8HR HENRY Last Admin: 02/21/18 05:24 Dose: 100 mg Sodium Chloride (Ns Inj) 1,000 mls @ 0 mls/hr OTHER .Q0M PRN PRN Reason: for prime and rinse back Last Infusion: 01/26/18 02:33 Dose: Infused Sodium Chloride (Ns Inj) 1,000 mls @ 200 mls/hr OTHER .Q5H PRN PRN Reason: for dialyzer flush PRN Albumin Human (Flexbumin 25% Inj) 100 mls @ 60 mls/hr IV.SIG WITH DIALYSIS PRN PRN Reason: hypotension / volume replace Sodium Chloride (Ns Inj) 1,000 mls @ 0 mls/hr OTHER .Q0M PRN PRN Reason: for prime and rinse back Sodium Chloride (Ns Inj) 1,000 mls @ 200 mls/hr OTHER .Q5H PRN PRN Reason: for dialyzer flush PRN Sodium Chloride (Ns Inj) 1,000 mls @ 0 mls/hr IV.CONT .Q0M PRN PRN Reason: hypotension / volume replace Dextrose/Sodium Chloride (D5w/Normal Saline Inj) 1,000 mls @ 60 mls/hr IV.CONT .[id number] ON LICENSE OF [facility] Last Admin: 02/21/18 05:21 Dose: Not Given Insulin Aspart (Novolog Insulin Correctional Sugar Inj) 0 unit SQ ACHS ON LICENSE OF [facility]; Protocol Last Admin: 02/21/18 09:04 Dose: Not Given Insulin Detemir (Levemir Inj) 5 unit SQ HS ON LICENSE OF [facility] Last Admin: 02/20/18 21:40 Dose: 5 unit Isosorbide Dinitrate (Isordil) 20 mg PO Q8HR ON LICENSE OF [facility] Last Admin: 02/21/18 05:24 Dose: 20 mg Labetalol HCl (Trandate Inj) 10 mg IV.PUSH Q4H PRN PRN Reason: HTN Last Admin: 01/27/18 01:22 Dose: 10 mg Lactulose (Lactulose Liq) 30 ml PO DAILY PRN PRN Reason: SEVERE CONSITIPATION Lactulose (Lactulose Liq) 30 ml PO DAILY ON LICENSE OF [facility] Last Admin: 02/20/18 11:11 Dose: Not Given Levetiracetam (Keppra) 500 mg PO BID ON LICENSE OF [facility] Last Admin: 02/20/18 21:40 Dose: 500 mg Levothyroxine Sodium (Synthroid) 88 mcg PO DAILY@0600 ON LICENSE OF [facility] Last Admin: 02/21/18 05:24 Dose: 88 mcg Mannitol (Mannitol Inj) 12.5 gm IV.PUSH UNSCH PRN PRN Reason: hypotension / volume replace Miscellaneous Medication () 1 each OROPHARYNG 0000,0400,1200,1600 ON LICENSE OF [facility] Last Admin: 02/21/18 05:01 Dose: Not Given Morphine Sulfate (Morphine Inj) 2 mg IV.PUSH Q2H PRN PRN Reason: PAIN SCALE 6 TO 10 Last Admin: 02/20/18 03:25 Dose: 2 mg Multivitamins (Theragran) 1 tab PO DAILY ON LICENSE OF [facility] Last Admin: 02/20/18 08:35 Dose: 1 tab Nitroglycerin (Nitro-Bid 2% Oint) 2 inch TOPICAL Q6HR PRN PRN Reason: Sbp>165, Dbp>90 Nitroglycerin (Nitrostat Sl) 0.4 mg SL Q5M PRN PRN Reason: CHEST PAIN Ondansetron HCl (Zofran Inj) 4 mg IV.PUSH Q6H PRN PRN Reason: NAUSEA Last Admin: 02/20/18 15:14 Dose: 4 mg Pantoprazole Sodium (Protonix Inj) 40 mg IV.PUSH Q12H ON LICENSE OF [facility] Last Admin: 02/21/18 01:47 Dose: 40 mg Senna/Docusate Sodium (Ayleen-Colace) 1 tab PO BID ON LICENSE OF [facility] Last Admin: 02/20/18 21:39 Dose: 1 tab Sennosides (Senokot) 17.2 mg PO Q12H PRN PRN Reason: Moderate Constipation Skin Test Antigens (Skin Test Result) 1 each OTHER Q24H ON LICENSE OF [facility] Stop: 02/23/18 19:39 Sodium Chloride (Ns Flush) 2 ml IV.FLUSH BID ON LICENSE OF [facility] Last Admin: 02/20/18 21:40 Dose: 2 ml Sodium Chloride (Ns Flush) 2 ml IV.FLUSH PRN PRN PRN Reason: FLUSH AFTER USING IV ACCESS Last Admin: 01/16/18 09:33 Dose: 2 ml Sodium Chloride (Ns Flush) 0 ml IV.FLUSH PRN PRN PRN Reason: FLUSH AFTER USING IV ACCESS Sodium Chloride (Ns Flush) 5 ml IV.FLUSH PRN PRN PRN Reason: flush each lumen during HD Terbutaline Sulfate (Brethine Inj) 1 mg SQ UNSCH PRN PRN Reason: For Extravasation Thiamine HCl (Vitamin B1) 100 mg PO DAILY ON LICENSE OF [facility] Last Admin: 02/20/18 11:11 Dose: Not Given Allergies/Adverse Reactions: Allergies Allergy/AdvReac Type Severity Reaction Status Date / Time erythromycin base Allergy Severe Hives Verified 01/14/18 03:00 penicillin G Allergy Severe Hives Verified 01/14/18 03:00 Physical Exam Vital signs: Vital Signs 02/20/18 16:00 02/20/18 20:00 02/20/18 22:44 Temperature 98.9 F Pulse Rate 97 H 89 84 Respiratory Rate 20 Blood Pressure 122/66 Pulse Oximetry 92 L 02/21/18 00:00 02/21/18 04:00 Temperature 97.3 F L 98.8 F Pulse Rate 80 84 Respiratory Rate 19 17 Blood Pressure 108/68 142/80 H Pulse Oximetry 93 L 95 Intake & Output 02/20/18 02/21/18 02/21/18 18:59 06:59 18:59 Output Total 2850 / 2850 Balance -2850 / -2850 Weight 96.7 kg Output: Urine 350 / 350 Hemodialysis Amount 2500 / 2500 Other: # Voids 0 Date of Last Bowel Movement 02/17/18 02/17/18 Narrative: awake alert knows [facility] [place] well disinihibited - Urinary Catheter Management Indwelling Temp Sensing Catheter Cath placed during this visit: yes, but has since been removed by the nurse Reason for continuing: Decision to DC catheter Insertion date: 01/14/18 Insertion time: 22:00 Removal date: 01/21/18 Removal time: 18:00 Straight Cath placed during this visit: no Objective Laboratory Results - last 24 hr 02/20/18 02/20/18 02/20/18 12:38 15:00 18:28 POC Glucose 84 164 H 127 H 02/20/18 02/21/18 20:09 07:46 POC Glucose 91 88 Review/Management - Review/Management Plan: imp seems to be interacting a little b12 nl fu us old r cva on asa sz focus could be there on keppra echo neg if any afib would anticoag /01/31/18 interacting more follow some commands us neg improved neuro -- 02/04/18 more alert doing a little better every day neurowise oob - 02/07/18 eeg neg doing much better prob mild anoxic damage 02/11/18 some ? lue weakness old r mca cva us and echo neg on asa check ldl and holter from er note had known old cva really doing much better some mild anoxic damagge oob ok by me 02/21/18 looks much better i could fu with him o/p in 2 months and rx any memory loss and mood issues then will sign off holter and ldl nl
[2018-02-21] MEDS: amLODIPine 5 MG Tablet PO SCH (09:18)
[2018-02-21] MEDS: Folic Acid 1 MG Tablet PO SCH (09:18)
[2018-02-21] MEDS: Chlorhexidine 0.12% Oral Kit 15 ML UDC OROPHARYNG SCH ×2 (09:18→22:08)
[2018-02-21] MEDS: levETIRAcetam 500 MG Tablet PO SCH ×2 (09:19→22:07)
[2018-02-21] MEDS: Carvedilol 6.25 MG Tablet PO SCH ×2 (09:19→22:07)
[2018-02-21] MEDS: Calcium Acetate 667 MG Capsule PO SCH ×3 (09:19→17:36)
[2018-02-21] MEDS: Senna/Docusate Sodium 8.6/50 MG Tablet PO SCH ×2 (09:19→22:07)
--- NOTE | 2018-02-21 13:52 | P.PNNP ---
Subjective Interval history: Resting. Reporting some back discomfort. <Smiley Barth - Last Filed: 02/21/18 13:49> Physical Exam Vital signs: Vital Signs 02/20/18 16:00 02/20/18 20:00 02/20/18 22:44 Temperature 98.9 F Pulse Rate 97 H 89 84 Respiratory Rate 20 Blood Pressure 122/66 Pulse Oximetry 92 L 02/21/18 00:00 02/21/18 04:00 02/21/18 08:00 Temperature 97.3 F L 98.8 F 98.2 F Pulse Rate 80 84 86 Respiratory Rate 19 17 20 Blood Pressure 108/68 142/80 H 138/74 Pulse Oximetry 93 L 95 94 L Intake & Output 02/20/18 02/21/18 02/21/18 18:59 06:59 18:59 Output Total 2850 / 2850 Balance -2850 / -2850 Weight 96.7 kg Output: Urine 350 / 350 Hemodialysis Amount 2500 / 2500 Other: # Voids 0 Date of Last Bowel Movement 02/17/18 02/17/18 02/17/18 Narrative: GENERAL:Alert. NAD. SKIN: Warm and dry. NECK: Supple, trachea midline. No JVD . CARDIOVASCULAR: Regular rate and rhythm without murmurs, gallops, or rubs. Hemodialysis PermCath in place right infraclavicular area appears to be intact. RESPIRATORY: Breath sounds equal bilaterally. .No accessory muscle use. GASTROINTESTINAL: Abdomen soft, non-tender, nondistended. MUSCULOSKELETAL: No cyanosis, or edema. Moves feet and arms but weak. - Urinary Catheter Management Indwelling Temp Sensing Catheter Cath placed during this visit: yes, but has since been removed by the nurse Reason for continuing: Decision to DC catheter Insertion date: 01/14/18 Insertion time: 22:00 Removal date: 01/21/18 Removal time: 18:00 Straight Cath placed during this visit: no <Smiley Barth - Last Filed: 02/21/18 13:49> Vital signs: Vital Signs 02/20/18 22:44 02/21/18 00:00 02/21/18 04:00 Temperature 97.3 F L 98.8 F Pulse Rate 84 80 84 Respiratory Rate 19 17 Blood Pressure 108/68 142/80 H Pulse Oximetry 93 L 95 02/21/18 08:00 02/21/18 14:00 02/21/18 16:00 Temperature 98.2 F 98 F 98.3 F Pulse Rate 86 81 83 Respiratory Rate Blood Pressure 138/74 90/50 L 129/85 Pulse Oximetry 94 L 92 L 95 Intake & Output 02/21/18 02/21/18 02/22/18 06:59 18:59 06:59 Weight 96.7 kg Other: # Voids 0 # Urine Diapers 1 Date of Last Bowel Movement 02/17/18 02/17/18 - Urinary Catheter Management Indwelling Temp Sensing Catheter Cath placed during this visit: no Straight Cath placed during this visit: no <Brianna Blevins - Last Filed: 02/21/18 21:44> Assessment and Plan - Assessment (1) Acute renal failure Code(s): N17.9 - Acute kidney failure, unspecified Status: Acute Plan: Remains dialysis dependent at this time. First HD 01/17/18 , RIJ PermCath placed 02/08/18 Continue HD MWF schedule for the present. Medications should be adjusted for the patient's estimated GFR if clinically indicated. Avoid agents with significant potential for nephrotoxicity possible including NSAIDs for analgesia, iodine contrast agents. Gadolinium is contraindicated if the GFR is below 30. Continue calcium acetate for hyperphosphatemia. Continue HD MWF schedule for the present. HD for tomorrow. (2) Anemia Code(s): D64.9 - Anemia, unspecified Status: Acute Qualifiers: Anemia type: due to chronic kidney disease Plan: Epogen with dialysis (3) Hypertension Code(s): I10 - Essential (primary) hypertension Status: Acute Plan: Well controlled, will monitor. (4) Diabetes Code(s): E11.9 - Type 2 diabetes mellitus without complications Status: Acute Plan: Maintain blood sugars between 140 mg /dl to 180 mg/dl while hospitalized. Well controlled. <Smiley Barth - Last Filed: 02/21/18 13:49> - Assessment (1) Acute renal failure Code(s): N17.9 - Acute kidney failure, unspecified Status: Acute Plan: Patient seen and examined, agree with above. No improvement in the renal function, check serology and SPEP. If not better, will need out patient HD arrangement. (2) Anemia Code(s): D64.9 - Anemia, unspecified Status: Acute Qualifiers: Anemia type: due to chronic kidney disease (3) Hypertension Code(s): I10 - Essential (primary) hypertension Status: Acute (4) Diabetes Code(s): E11.9 - Type 2 diabetes mellitus without complications Status: Acute <Brianna Blevins - Last Filed: 02/21/18 21:44>
--- NOTE | 2018-02-21 14:49 | P.PNIM ---
Subjective Interval history: Follow-up for possible anoxic brain injury, hepatic encephalopathy, end-stage renal disease. Patient seen and examined today. Reports he is okay. States he wants to go to sleep. Denies pain or discomfort. Physical Exam Vital signs: Vital Signs 02/20/18 16:00 02/20/18 20:00 02/20/18 22:44 Temperature 98.9 F Pulse Rate 97 H 89 84 Respiratory Rate 20 Blood Pressure 122/66 Pulse Oximetry 92 L 02/21/18 00:00 02/21/18 04:00 02/21/18 08:00 Temperature 97.3 F L 98.8 F 98.2 F Pulse Rate 80 84 86 Respiratory Rate 19 17 20 Blood Pressure 108/68 142/80 H 138/74 Pulse Oximetry 93 L 95 94 L Intake & Output 02/20/18 02/21/18 02/21/18 18:59 06:59 18:59 Output Total 2850 / 2850 Balance -2850 / -2850 Weight 96.7 kg Output: Urine 350 / 350 Hemodialysis Amount 2500 / 2500 Other: # Voids 0 Date of Last Bowel Movement 02/17/18 02/17/18 02/17/18 Narrative: GENERAL: This is a well-nourished patient, in no apparent distress. SKIN: Warm and dry. HEENT: Normocephalic. Pupils equal round and reactive. Nose without bleeding. Airway patent. NECK: Trachea midline. CARDIOVASCULAR: Regular rate and rhythm without murmurs, gallops, or rubs. Right subclavian Shiley RESPIRATORY: Diminished bases. No wheezes, rales, or rhonchi. GASTROINTESTINAL: Abdomen soft, non-tender, nondistended. Bowel Sounds normoactive x4. MUSCULOSKELETAL: Extremities without clubbing, cyanosis, or edema. NEUROLOGICAL: Awake and alert. Moves all extremities. Normal speech. Confused. - Urinary Catheter Management Indwelling Temp Sensing Catheter Cath placed during this visit: yes, but has since been removed by the nurse Reason for continuing: Decision to DC catheter Insertion date: 01/14/18 Insertion time: 22:00 Removal date: 01/21/18 Removal time: 18:00 Straight Cath placed during this visit: no Results - Labs CBC & Chem 7: 02/16/18 08:07 02/19/18 04:03 Laboratory Results - last 24 hr 02/20/18 02/20/18 02/20/18 15:00 18:28 20:09 POC Glucose 164 H 127 H 91 02/21/18 07:46 POC Glucose 88 - Procedures Left IJ HD tunneled cath placed 02/08/18 by IR Assessment and Plan - Assessment (1) Acute renal failure Code(s): N17.9 - Acute kidney failure, unspecified Status: Acute (2) Anemia Code(s): D64.9 - Anemia, unspecified Status: Acute (3) Hypertension Code(s): I10 - Essential (primary) hypertension Status: Acute (4) Diabetes Code(s): E11.9 - Type 2 diabetes mellitus without complications Status: Acute - Plan 62-year-old white male who was admitted with cardiogenic shock and acute respiratory failure requiring CPR and epinephrine in the field, after being found down at home and being witnessed to possibly have undergone seizure-like activity. Intubation was attempted in the field but were unable to do so, patient was ultimately intubated in the hospital, started on pressors, placed in the ICU on mechanical ventilation. Found to have bilateral pneumothoraces with chest tubes placed, had developed some pneumoperitoneum which surgically deemed might have been a leak from his chest tubes as opposed to an acute surgical abdomen. Patient was started on antibiotics empirically for possible aspiration pneumonia but was ultimately discontinued off of them by infectious disease. Developed rhabdomyolysis with worsening acute renal failure which became sustained, with the patient now undergoing dialysis. Ultimately was discontinued off pressors, cardiology deferred heart cath due to renal failure. Patient had difficulty following commands after he was discontinued off of sedation and after extubation. Had an MRI done on 01/17 which showed no acute findings, only an older right parietal CVA. EEG was done which was unremarkable. 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 He passed a swallow evaluation. Appear to be more alert. -Continue rehabilitation efforts with physical therapy/OT/speech -Per Neurology, patient can be out of bed. -No acute changes on neurological status Dysphasia: Related to encephalopathy. Probable anoxic injury from cardiogenic shock and respiratory failure. -Patient pulled out NG tube. Currently on Mechanical soft diet. End-stage renal disease -Cont MWF hemodialysis. -Nephrology following. Patient will likely need permanent dialysis. -We will discuss with nephrology if the patient will be on permanent dialysis as they need to make note of that for case management to work on outpatient dialysis and placement. Possible seizure -Continue Keppra 500mg PO BID. -EEG was negative Non-STEMI Hypertension -Troponins elevated to 0.52, 1.89 and 2.37. -Cardiology recommended conservative medical management. -Continue aspirin, carvedilol 6.25 twice daily, isosorbide dinitrate, atorvastatin 20 mg -Continue amlodipine 5 mg daily Bilateral pneumothoraces pneumomediastinum acute respiratory failure -chest tubes removed 01/28/2018 -Continue oxygen supplementation -Appreciate pulmonology following. Patient cannot tolerate BiPAP. -Pneumoperitoneum with right retroperitoneal gas/gas around the right kidney -Likely secondary to bilateral pneumothoraces with no surgical intervention warranted per general surgery Hepatitis secondary to shock Hepatic steatosis Cirrhosis -Possible alcohol abuse -Continue thiamine -Continue folic acid -Continue beta-blockers Diabetes mellitus, Type 2, uncontrolled, with nephropathy -Diabetic diet -Continue Aspart Sliding scale insulin. -Will continue Levemir 5 units QHS. Goal BG 140-180. hypothyroidism -continue levothyroxine Normocytic anemia -Status post PRBC transfusion. H&H stable around 8. Full code. Heparin SQ. Discussed Condition With: Patient, nursing, Dr. Sanabria Discharge Planning: Final determination by nephrology whether patient needs permanent dialysis or not. Case management is aware of the need for permanent dialysis. (2) Anemia Qualifiers: Anemia type: due to chronic kidney disease
--- NOTE | 2018-02-21 17:59 | P.PN ---
Subjective Interval history: Denies SOB or chest pain. Off O2 Was dialyzed.CXR shows increased left atelectasis. Physical Exam Vital signs: Vital Signs 02/20/18 20:00 02/20/18 22:44 02/21/18 00:00 Temperature 97.3 F L Pulse Rate 89 84 80 Respiratory Rate 19 Blood Pressure 108/68 Pulse Oximetry 93 L 02/21/18 04:00 02/21/18 08:00 02/21/18 14:00 Temperature 98.8 F 98.2 F 98 F Pulse Rate 84 86 81 Respiratory Rate 17 20 18 Blood Pressure 142/80 H 138/74 90/50 L Pulse Oximetry 95 94 L 92 L 02/21/18 16:00 Temperature 98.3 F Pulse Rate 83 Respiratory Rate 20 Blood Pressure 129/85 Pulse Oximetry 95 Intake & Output 02/20/18 02/21/18 02/21/18 18:59 06:59 18:59 Output Total 2850 / 2850 Balance -2850 / -2850 Weight 96.7 kg Output: Urine 350 / 350 Hemodialysis Amount 2500 / 2500 Other: # Voids 0 Date of Last Bowel Movement 02/17/18 02/17/18 02/17/18 Narrative: GENERAL:Alert. Mid aged W/M NAD. SKIN: Warm and dry. NECK: Supple, trachea midline. No JVD . CARDIOVASCULAR: Regular rate and rhythm without murmurs, gallops, or rubs. RESPIRATORY: Breath sounds reduced bilaterally. Occ wheeze .No accessory muscle use. GASTROINTESTINAL: Abdomen soft, non-tender, nondistended. MUSCULOSKELETAL: No cyanosis, or edema. Moves feet and arms but weak. - Urinary Catheter Management Indwelling Temp Sensing Catheter Cath placed during this visit: yes, but has since been removed by the nurse Reason for continuing: Decision to DC catheter Insertion date: 01/14/18 Insertion time: 22:00 Removal date: 01/21/18 Removal time: 18:00 Straight Cath placed during this visit: no Results - Labs CBC & Chem 7: 02/16/18 08:07 02/19/18 04:03 Laboratory Results - last 24 hr 02/20/18 02/20/18 02/21/18 18:28 20:09 07:46 POC Glucose 127 H 91 88 02/21/18 17:19 POC Glucose 89 - Procedures Left IJ HD tunneled cath placed 02/08/18 by IR Assessment and Plan - Assessment (1) Encephalopathy acute Code(s): G93.40 - Encephalopathy, unspecified Status: Acute (2) Overdose Code(s): T50.901A - Poisoning by unspecified drugs, medicaments and biological substances, accidental (unintentional), initial encounter Status: Acute (3) Suicidal ideation Code(s): R45.851 - Suicidal ideations Status: Acute (4) Delirium tremens Code(s): F10.231 - Alcohol dependence with withdrawal delirium Status: Acute (5) Bilateral pneumothoraces Code(s): J93.9 - Pneumothorax, unspecified Status: Acute (6) Endotracheally intubated Code(s): Z97.8 - Presence of other specified devices Status: Acute (7) Elevated troponin Code(s): R74.8 - Abnormal levels of other serum enzymes Status: Acute (8) Acute renal failure Code(s): N17.9 - Acute kidney failure, unspecified Status: Acute (9) Alcohol abuse Code(s): F10.10 - Alcohol abuse, uncomplicated Status: Acute - Plan - Plan 1. Respiratory insufficiency, status post extubation on 01/25/2018. 2. s/p pneumothoraces on arrival, status post bilateral small bore chest tube placement on 01/15/2018. removed 01/28 3. Acute kidney injury.On Dialysis 4. Leukocytosis. 5. Anemia. 6. NSTEMI 7. Morbid obesity. 8. Hypertension. 9. Diabetes mellitus. 10. s/p seizures. Plan 1. Cont Albuterol Inhaler , 2 puffs TID PRN 2. PT Evaluation 3. IS at bedside Q3H 4. Up as tolerated 5. Dialysis as planned 6. Rehab placement 7. Will get sleep test as OP (2) Overdose Qualifiers: Encounter type: initial encounter Injury intent: undetermined intent Qualified Code(s): T50.904A - Poisoning by unspecified drugs, medicaments and biological substances, undetermined, initial encounter
[2018-02-21] MEDS: Insulin Detemir Inj 1,000 UNIT/10 ML Vial SQ SCH (22:09)
[2018-02-22] MEDS: Oral Hygiene Kit OROPHARYNG SCH ×4 (01:16→17:01)
[2018-02-22] MEDS: Artificial Tears Opth Drops 15 ML Bottle EACH EYE SCH ×3 (01:16→17:27)
[2018-02-22] MEDS: Pantoprazole Inj 40 MG Vial IV.PUSH SCH ×2 (05:02→13:37)
[2018-02-22] MEDS: hydrALAZINE 25 MG Tablet PO SCH ×3 (05:19→22:13)
[2018-02-22] MEDS: Levothyroxine 88 MCG Tablet PO SCH (05:19)
[2018-02-22] MEDS: Insulin NovoLOG Aspart Correctional Sugar Inj SQ SCH ×4 (07:55→22:21)
[2018-02-22] MEDS: levETIRAcetam 500 MG Tablet PO SCH ×3 (08:17→22:13)
[2018-02-22] MEDS: Carvedilol 6.25 MG Tablet PO SCH ×3 (08:17→22:15)
[2018-02-22] MEDS: Chlorhexidine 0.12% Oral Kit 15 ML UDC OROPHARYNG SCH ×2 (08:17→22:15)
[2018-02-22] MEDS: Folic Acid 1 MG Tablet PO SCH ×2 (08:17→13:33)
[2018-02-22] MEDS: Senna/Docusate Sodium 8.6/50 MG Tablet PO SCH ×3 (08:18→22:17)
[2018-02-22] MEDS: Calcium Acetate 667 MG Capsule PO SCH ×3 (08:18→18:23)
[2018-02-22] MEDS: amLODIPine 5 MG Tablet PO SCH ×2 (08:18→13:33)
[2018-02-22] MEDS: Heparin 10,000 UNITS/10 ML Vial (for IV use) OTHER PRN (11:25)
--- NOTE | 2018-02-22 12:37 | P.PNNP ---
Subjective Interval history: Seen during Hemodialysis, tolerating well. No acute events overnight. <Smiley Barth - Last Filed: 02/22/18 12:31> Physical Exam Vital signs: Vital Signs 02/21/18 14:00 02/21/18 16:00 02/21/18 20:00 Temperature 98 F 98.3 F 97.7 F Pulse Rate 81 83 90 Respiratory Rate 18 20 18 Blood Pressure 90/50 L 129/85 158/88 H Pulse Oximetry 92 L 95 94 L 02/22/18 00:00 02/22/18 06:08 02/22/18 08:00 Temperature 98.1 F 97.6 F 96.3 F L Pulse Rate 91 H 96 H 76 Respiratory Rate 20 18 16 Blood Pressure 127/74 150/98 H 144/87 H Pulse Oximetry 95 97 95 Intake & Output 02/21/18 02/22/18 02/22/18 18:59 06:59 18:59 Output Total 1500 / 1500 Balance -1500 / -1500 Weight 94.9 kg Output: Hemodialysis Amount 1500 / 1500 Other: # Voids 2 # Urine Diapers 1 Date of Last Bowel Movement 02/17/18 02/21/18 Narrative: GENERAL:Alert. NAD. SKIN: Warm and dry. NECK: Supple, trachea midline. No JVD . CARDIOVASCULAR: Regular rate and rhythm without murmurs, gallops, or rubs. Hemodialysis PermCath in place right infraclavicular area appears to be intact. RESPIRATORY: Breath sounds equal bilaterally. .No accessory muscle use. GASTROINTESTINAL: Abdomen soft, non-tender, nondistended. MUSCULOSKELETAL: No cyanosis, or edema. Moves feet and arms but weak. - Urinary Catheter Management Indwelling Temp Sensing Catheter Cath placed during this visit: yes, but has since been removed by the nurse Reason for continuing: Decision to DC catheter Insertion date: 01/14/18 Insertion time: 22:00 Removal date: 01/21/18 Removal time: 18:00 Straight Cath placed during this visit: no <Smiley Barth - Last Filed: 02/22/18 12:31> Vital signs: Vital Signs 02/22/18 00:00 02/22/18 06:08 02/22/18 08:00 Temperature 98.1 F 97.6 F 96.3 F L Pulse Rate 91 H 96 H 75 Respiratory Rate 20 18 16 Blood Pressure 127/74 150/98 H 144/87 H Pulse Oximetry 95 97 95 02/22/18 13:45 02/22/18 20:00 Temperature 100.0 F H Pulse Rate 99 H 91 H Respiratory Rate 18 18 Blood Pressure 135/39 L 131/76 Pulse Oximetry 97 95 Intake & Output 02/22/18 02/22/18 02/23/18 06:59 18:59 06:59 Output Total 1500 / 1500 Balance -1500 / -1500 Weight 94.9 kg Output: Hemodialysis Amount 1500 / 1500 Other: # Voids 2 Date of Last Bowel Movement 02/21/18 - Urinary Catheter Management Indwelling Temp Sensing Catheter Cath placed during this visit: no Straight Cath placed during this visit: no <Brianna Blevins - Last Filed: 02/22/18 21:14> Assessment and Plan - Assessment (1) Acute renal failure Code(s): N17.9 - Acute kidney failure, unspecified Status: Acute Plan: Remains dialysis dependent at this time. First HD 01/17/18 , RIJ PermCath placed 02/08/18 Continue HD MWF schedule for the present. Medications should be adjusted for the patient's estimated GFR if clinically indicated. Avoid agents with significant potential for nephrotoxicity possible including NSAIDs for analgesia, iodine contrast agents. Gadolinium is contraindicated if the GFR is below 30. Continue calcium acetate for hyperphosphatemia. Continue HD MWF schedule for the present. HD this morning with removal of 1.5 liters. Complements and ADORE normal. SPEP pending. Creatinine remain elevated. If not better, will need out patient HD arrangement. (2) Anemia Code(s): D64.9 - Anemia, unspecified Status: Acute Qualifiers: Anemia type: due to chronic kidney disease Plan: Epogen with dialysis (3) Hypertension Code(s): I10 - Essential (primary) hypertension Status: Acute Plan: Well controlled, will monitor. (4) Diabetes Code(s): E11.9 - Type 2 diabetes mellitus without complications Status: Acute Plan: Maintain blood sugars between 140 mg /dl to 180 mg/dl while hospitalized. Well controlled. <Smiley Barth - Last Filed: 02/22/18 12:31> - Assessment (1) Acute renal failure Code(s): N17.9 - Acute kidney failure, unspecified Status: Acute Plan: Patient seen and examined, agree with above. Serology done. HD done in AM. (2) Anemia Code(s): D64.9 - Anemia, unspecified Status: Acute Qualifiers: Anemia type: due to chronic kidney disease (3) Hypertension Code(s): I10 - Essential (primary) hypertension Status: Acute (4) Diabetes Code(s): E11.9 - Type 2 diabetes mellitus without complications Status: Acute <Brianna Blevins - Last Filed: 02/22/18 21:14>
[2018-02-22] MEDS: Dextrose 5%/NaCl 0.9% Inj 1,000 ML IV.CONT SCH (12:40)
--- NOTE | 2018-02-22 13:47 | P.DIET ---
Nutritional Evaluation Type of nutrition evaluation: follow-up Nutrition consult regarding: Tube Feeding (TFing stopped) [place] [facility] [place] Subjective Subjective Comments: Variable po intake noted 0-100%. Needs full assist at meals. Still with confusion. Objective - Diagnosis Seizures/Respiratory Distress/Intubated - Objective % IBW: 150 Body Weight Used for Calculations: IBW (75.5 kg) Energy Needs - Lower Range (kCal/kg): 30 Energy Needs - Upper Range (kCal/kg): 35 Lower Limit kCal/kg (kCals): 2,264 Upper Limit kCal/kg (kCals): 2,643 Lower Limit Protein Factor (Grams per Kg): 1.2 Upper Limit Protein Factor (Grams per Kg): 1.5 Lower Protein Needs (Protein): 91 Upper Protein Needs (Protein): 113 Dietitian Reviewed in Medical Record: Current diet, Curent medications, Intake & Output, Labs, Medical history Diet Order: NPO Speech Therapy Recommendations: Yes (ST following) Objective Comments: PMH includes: Anxiety, CVA, DM, ETOH Abuse, HTN, Alcohol Abuse HgA1c 7.5 (01/31) Assessment Assessment: Pt's TF stopped 02/03 when ng-t was pulled out. ST recommends mechanical soft, with nectar thickened liquids. Pt is dialysis dependent. PO intake appears to be inadequate evidenced by weight loss. CBW = 94.9 kg. Recommend supplemental TF be considered. Labs, wts and clinical course reviewed. Recommendations: 1. Diet texture per ST 2. Please increase diet to 2200 ADA 3. Consider TF Dietitian to Monitor: Lab values, Intake & Output, Weight change, PO Intake, Diet advancement, Swallow recommendations, Medical course
--- NOTE | 2018-02-22 16:13 | P.PNIM ---
Subjective Interval history: Follow-up for possible anoxic brain injury, hepatic encephalopathy, end-stage renal disease. Patient seen and examined today. Patient had hemodialysis today. States that he is tired and wanted to sleep. Denies pain and discomfort. Denies SOB/ dyspnea. Physical Exam Vital signs: Vital Signs 02/21/18 20:00 02/22/18 00:00 02/22/18 06:08 Temperature 97.7 F 98.1 F 97.6 F Pulse Rate 90 91 H 96 H Respiratory Rate 18 20 18 Blood Pressure 158/88 H 127/74 150/98 H Pulse Oximetry 94 L 95 97 02/22/18 08:00 02/22/18 13:45 Temperature 96.3 F L Pulse Rate 75 99 H Respiratory Rate 16 18 Blood Pressure 144/87 H 135/39 L Pulse Oximetry 95 97 Intake & Output 02/21/18 02/22/18 02/22/18 18:59 06:59 18:59 Output Total 1500 / 1500 Balance -1500 / -1500 Weight 94.9 kg Output: Hemodialysis Amount 1500 / 1500 Other: # Voids 2 # Urine Diapers 1 Date of Last Bowel Movement 02/17/18 02/21/18 Narrative: GENERAL: This is a well-nourished patient, in no apparent distress. SKIN: Warm and dry. HEENT: Normocephalic. Pupils equal round and reactive. Nose without bleeding. Airway patent. NECK: Trachea midline. CARDIOVASCULAR: Regular rate and rhythm without murmurs, gallops, or rubs. Right subclavian Shiley RESPIRATORY: Diminished bases. No wheezes, rales, or rhonchi. GASTROINTESTINAL: Abdomen soft, non-tender, nondistended. Bowel Sounds normoactive x4. MUSCULOSKELETAL: Extremities without clubbing, cyanosis, or edema. NEUROLOGICAL: Awake and alert. Moves all extremities, weak. Normal speech. Confused. - Urinary Catheter Management Indwelling Temp Sensing Catheter Cath placed during this visit: yes, but has since been removed by the nurse Reason for continuing: Decision to DC catheter Insertion date: 01/14/18 Insertion time: 22:00 Removal date: 01/21/18 Removal time: 18:00 Straight Cath placed during this visit: no Results - Labs CBC & Chem 7: 02/16/18 08:07 02/19/18 04:03 Laboratory Results - last 24 hr 02/21/18 02/21/18 02/22/18 17:19 21:28 06:01 POC Glucose 89 125 H Total Protein (PEP) 6.8 ADORE Screen Complement C3 120 Complement C4 38 02/22/18 02/22/18 02/22/18 06:01 07:43 13:21 POC Glucose 100 78 Total Protein (PEP) ADORE Screen Neg Complement C3 Complement C4 - Procedures Left IJ HD tunneled cath placed 02/08/18 by IR Assessment and Plan - Assessment (1) Acute renal failure Code(s): N17.9 - Acute kidney failure, unspecified Status: Acute (2) Anemia Code(s): D64.9 - Anemia, unspecified Status: Acute (3) Hypertension Code(s): I10 - Essential (primary) hypertension Status: Acute (4) Diabetes Code(s): E11.9 - Type 2 diabetes mellitus without complications Status: Acute - Plan 62-year-old white male who was admitted with cardiogenic shock and acute respiratory failure requiring CPR and epinephrine in the field, after being found down at home and being witnessed to possibly have undergone seizure-like activity. Intubation was attempted in the field but were unable to do so, patient was ultimately intubated in the hospital, started on pressors, placed in the ICU on mechanical ventilation. Found to have bilateral pneumothoraces with chest tubes placed, had developed some pneumoperitoneum which surgically deemed might have been a leak from his chest tubes as opposed to an acute surgical abdomen. Patient was started on antibiotics empirically for possible aspiration pneumonia but was ultimately discontinued off of them by infectious disease. Developed rhabdomyolysis with worsening acute renal failure which became sustained, with the patient now undergoing dialysis. Ultimately was discontinued off pressors, cardiology deferred heart cath due to renal failure. Patient had difficulty following commands after he was discontinued off of sedation and after extubation. Had an MRI done on 01/17 which showed no acute findings, only an older right parietal CVA. EEG was done which was unremarkable. 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 He passed a swallow evaluation. Appear to be more alert. -Continue rehabilitation efforts with physical therapy/OT/speech -Per Neurology, patient can be out of bed. -No acute changes on neurological status Dysphasia: Related to encephalopathy. Probable anoxic injury from cardiogenic shock and respiratory failure. -Patient pulled out NG tube. Currently on Mechanical soft diet. End-stage renal disease -Cont MWF hemodialysis. -Nephrology following. Patient will likely need permanent dialysis. -will F/u with nephrology if the patient will be on permanent dialysis as they need to make note of that for case management to work on outpatient dialysis and placement. Possible seizure -Continue Keppra 500mg PO BID. -EEG was negative Non-STEMI Hypertension -Troponins elevated to 0.52, 1.89 and 2.37. -Cardiology recommended conservative medical management. -Continue aspirin, carvedilol 6.25 twice daily, isosorbide dinitrate, atorvastatin 20 mg -Continue amlodipine 5 mg daily Bilateral pneumothoraces pneumomediastinum acute respiratory failure -chest tubes removed 01/28/2018 -Continue oxygen supplementation -Appreciate pulmonology following. Patient cannot tolerate BiPAP. -Pneumoperitoneum with right retroperitoneal gas/gas around the right kidney -Likely secondary to bilateral pneumothoraces with no surgical intervention warranted per general surgery Hepatitis secondary to shock Hepatic steatosis Cirrhosis -Possible alcohol abuse -Continue thiamine -Continue folic acid -Continue beta-blockers Diabetes mellitus, Type 2, uncontrolled, with nephropathy -Diabetic diet -Continue Aspart Sliding scale insulin. -Will continue Levemir 5 units QHS. Goal BG 140-180. hypothyroidism -continue levothyroxine Normocytic anemia -Status post PRBC transfusion. H&H stable around 8. Full code. Heparin SQ. Discussed Condition With: Nursing, CM, Dr. Sanabria Discharge Planning: Final determination by nephrology whether patient needs permanent dialysis or not. Case management is aware of the need for dialysis. (2) Anemia Qualifiers: Anemia type: due to chronic kidney disease
[2018-02-22] MEDS: Insulin Detemir Inj 1,000 UNIT/10 ML Vial SQ SCH (22:15)
[2018-02-23] MEDS: Artificial Tears Opth Drops 15 ML Bottle EACH EYE SCH ×4 (01:37→23:39)
[2018-02-23] MEDS: Oral Hygiene Kit OROPHARYNG SCH ×5 (01:37→23:38)
[2018-02-23] MEDS: Pantoprazole Inj 40 MG Vial IV.PUSH SCH ×2 (05:45→15:01)
[2018-02-23] MEDS: hydrALAZINE 25 MG Tablet PO SCH ×3 (05:47→23:27)
[2018-02-23] MEDS: Dextrose 5%/NaCl 0.9% Inj 1,000 ML IV.CONT SCH ×2 (05:47→23:27)
[2018-02-23] MEDS: Levothyroxine 88 MCG Tablet PO SCH (05:47)
[2018-02-23 07:31] LABS: Baso # (Auto) 0.2 th/mm3 (0.0-0.2); Baso % (Auto) 2.6 % (0.0-2.0); Eos # (Auto) 0.1 th/mm3 (0.0-0.4); Eos % (Auto) 0.7 % (0.0-4.0); Hemoglobin 10.9 gm/dL (13.0-17.0); Lymph # (Auto) 1.8 th/mm3 (1.0-4.8); Lymph % (Auto) 24.7 % (9.0-44.0); Mean Corpuscular HGB Conc 33.9 % (32.0-36.0); Mean Corpuscular Volume 88.6 fL (80.0-100.0); Mean Platelet Volume 7.3 fL (7.0-11.0); Mono # (Auto) 1.2 th/mm3 (0.0-0.9); Mono % (Auto) 16.8 % (0.0-8.0); Neut # (Auto) 3.9 th/mm3 (1.8-7.7); Neut % (Auto) 55.2 % (16.0-70.0); Platelet Count 292 th/mm3 (150-450); Red Blood Count 3.61 mil/mm3 (4.50-5.90); Red Cell Distribution Width 16.6 % (11.6-17.2); White Blood Count 7.1 th/mm3 (4.0-11.0)
[2018-02-23 08:05] LABS: Albumin 3.2 g/dL (3.4-5.0); Calcium 8.8 mg/dL (8.5-10.1); Carbon Dioxide 32.1 meq/L (21.0-32.0); Phosphorus 2.8 mg/dL (2.5-4.9)
[2018-02-23 08:29] LABS: Lymphocytes 28 % (9-44); Metamyelocytes 3 % (0-1); Monocytes 4 % (0-8); Myelocytes 6 % (0-0); Ovalocytes 1+; Platelet Estimate Normal (Normal); Platelet Morphology Normal (Normal)
[2018-02-23] MEDS: Insulin NovoLOG Aspart Correctional Sugar Inj SQ SCH ×4 (09:11→23:39)
[2018-02-23] MEDS: Chlorhexidine 0.12% Oral Kit 15 ML UDC OROPHARYNG SCH ×2 (09:11→23:27)
[2018-02-23] MEDS: Carvedilol 6.25 MG Tablet PO SCH ×2 (09:20→23:26)
[2018-02-23] MEDS: Calcium Acetate 667 MG Capsule PO SCH ×3 (09:20→17:56)
[2018-02-23] MEDS: Senna/Docusate Sodium 8.6/50 MG Tablet PO SCH ×2 (09:20→23:27)
[2018-02-23] MEDS: amLODIPine 5 MG Tablet PO SCH (09:20)
[2018-02-23] MEDS: levETIRAcetam 500 MG Tablet PO SCH ×2 (09:20→23:26)
[2018-02-23] MEDS: Folic Acid 1 MG Tablet PO SCH (09:20)
--- NOTE | 2018-02-23 11:34 | P.PNIM ---
Subjective Interval history: Follow-up for possible anoxic brain injury, hepatic encephalopathy, end-stage renal disease. Patient seen and examined today. Patient is more awake and alert. Follows commands. Appears confused. States call his "common-law at the #[id number]." Denies pain or discomfort. No acute issues overnight. Physical Exam Vital signs: Vital Signs 02/22/18 13:45 02/22/18 20:00 02/23/18 00:00 Temperature 100.0 F H 99.6 F Pulse Rate 99 H 90 90 Respiratory Rate 18 18 18 Blood Pressure 135/39 L 131/76 101/67 Pulse Oximetry 97 95 95 02/23/18 04:00 02/23/18 08:00 Temperature 99.2 F 97.1 F L Pulse Rate 85 81 Respiratory Rate 18 20 Blood Pressure 128/80 126/80 Pulse Oximetry 96 96 Intake & Output 02/22/18 02/23/18 02/23/18 18:59 06:59 18:59 Output Total 1500 / 1500 Balance -1500 / -1500 Output: Hemodialysis Amount 1500 / 1500 Narrative: GENERAL: This is a well-nourished patient, in no apparent distress. SKIN: Warm and dry. HEENT: Normocephalic. Pupils equal round and reactive. Nose without bleeding. Airway patent. NECK: Trachea midline. CARDIOVASCULAR: Regular rate and rhythm without murmurs, gallops, or rubs. Right subclavian Shiley RESPIRATORY: Diminished bases. No wheezes, rales, or rhonchi. GASTROINTESTINAL: Abdomen soft, non-tender, nondistended. Bowel Sounds normoactive x4. MUSCULOSKELETAL: Extremities without clubbing, cyanosis, or edema. NEUROLOGICAL: Awake and alert. Moves all extremities, weak. Normal speech. Confused. - Urinary Catheter Management Indwelling Temp Sensing Catheter Cath placed during this visit: yes, but has since been removed by the nurse Reason for continuing: Decision to DC catheter Insertion date: 01/14/18 Insertion time: 22:00 Removal date: 01/21/18 Removal time: 18:00 Straight Cath placed during this visit: no Results - Labs CBC & Chem 7: 02/23/18 07:04 02/23/18 07:04 Laboratory Results - last 24 hr 02/22/18 02/22/18 02/22/18 13:21 16:52 22:21 WBC RBC Hgb Hct MCV MCH MCHC RDW Plt Count MPV Prelim Diff (Auto) Neut % (Auto) Lymph % (Auto) [place] % (Auto) Eos % (Auto) Baso % (Auto) Neut # (Auto) Lymph # (Auto) [place] # (Auto) Eos # (Auto) Baso # (Auto) WBC Differential Seg Neuts % (Manual) Band Neuts % (Manual) Lymphocytes % (Manual) Monocytes % (Manual) Basophils % (Manual) Metamyelocytes % (Man) Myelocytes % (Man) Abs Neuts (Manual) Differential Comment Platelet Estimate Platelet Morphology Ovalocytes Sodium Potassium Chloride Carbon Dioxide Anion Gap BUN Creatinine Estimated GFR POC Glucose 78 104 113 H Random Glucose Calcium Phosphorus Albumin 02/23/18 02/23/18 02/23/18 07:04 07:04 08:43 WBC 7.1 RBC 3.61 L Hgb 10.9 L Hct 32.0 L MCV 88.6 MCH 30.0 MCHC 33.9 RDW 16.6 Plt Count 292 MPV 7.3 Prelim Diff (Auto) Slide review pending Neut % (Auto) 55.2 Lymph % (Auto) 24.7 [place] % (Auto) 16.8 H Eos % (Auto) 0.7 Baso % (Auto) 2.6 H Neut # (Auto) 3.9 Lymph # (Auto) 1.8 [place] # (Auto) 1.2 H Eos # (Auto) 0.1 Baso # (Auto) 0.2 WBC Differential Manual diff final Seg Neuts % (Manual) 56 Band Neuts % (Manual) 1 Lymphocytes % (Manual) 28 Monocytes % (Manual) 4 Basophils % (Manual) 2 Metamyelocytes % (Man) 3 H Myelocytes % (Man) 6 H Abs Neuts (Manual) 4.7 Differential Comment . Platelet Estimate Normal Platelet Morphology Normal Ovalocytes 1+ H Sodium 134 L Potassium 4.0 Chloride 95 L Carbon Dioxide 32.1 H Anion Gap 7 BUN 12 Creatinine 5.98 H Estimated GFR 10 L POC Glucose 105 Random Glucose 105 Calcium 8.8 Phosphorus 2.8 Albumin 3.2 L - Procedures Left IJ HD tunneled cath placed 02/08/18 by IR Assessment and Plan - Assessment (1) Acute renal failure Code(s): N17.9 - Acute kidney failure, unspecified Status: Acute (2) Anemia Code(s): D64.9 - Anemia, unspecified Status: Acute (3) Hypertension Code(s): I10 - Essential (primary) hypertension Status: Acute (4) Diabetes Code(s): E11.9 - Type 2 diabetes mellitus without complications Status: Acute - Plan 62-year-old white male who was admitted with cardiogenic shock and acute respiratory failure requiring CPR and epinephrine in the field, after being found down at home and being witnessed to possibly have undergone seizure-like activity. Intubation was attempted in the field but were unable to do so, patient was ultimately intubated in the hospital, started on pressors, placed in the ICU on mechanical ventilation. Found to have bilateral pneumothoraces with chest tubes placed, had developed some pneumoperitoneum which surgically deemed might have been a leak from his chest tubes as opposed to an acute surgical abdomen. Patient was started on antibiotics empirically for possible aspiration pneumonia but was ultimately discontinued off of them by infectious disease. Developed rhabdomyolysis with worsening acute renal failure which became sustained, with the patient now undergoing dialysis. Ultimately was discontinued off pressors, cardiology deferred heart cath due to renal failure. Patient had difficulty following commands after he was discontinued off of sedation and after extubation. Had an MRI done on 01/17 which showed no acute findings, only an older right parietal CVA. EEG was done which was unremarkable. 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 He passed a swallow evaluation. Appear to be more alert. -Continue rehabilitation efforts with physical therapy/OT/speech -Per Neurology, patient can be out of bed. -No acute changes on neurological status Dysphasia: Related to encephalopathy. Probable anoxic injury from cardiogenic shock and respiratory failure. -Patient pulled out NG tube. Currently on Mechanical soft diet. End-stage renal disease -Cont MWF hemodialysis. -Nephrology following. Patient will likely need permanent dialysis. -will F/u with nephrology if the patient will be on permanent dialysis as they need to make note of that for case management to work on outpatient dialysis and placement. 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 -EEG was negative Non-STEMI Hypertension -Troponins elevated to 0.52, 1.89 and 2.37. -Cardiology recommended conservative medical management. -Continue aspirin, carvedilol 6.25 twice daily, isosorbide dinitrate, atorvastatin 20 mg -Continue amlodipine 5 mg daily Bilateral pneumothoraces pneumomediastinum acute respiratory failure -chest tubes removed 01/28/2018 -Continue oxygen supplementation -Appreciate pulmonology following. Patient cannot tolerate BiPAP. -Pneumoperitoneum with right retroperitoneal gas/gas around the right kidney -Likely secondary to bilateral pneumothoraces with no surgical intervention warranted per general surgery Hepatitis secondary to shock Hepatic steatosis Cirrhosis -Possible alcohol abuse -Continue thiamine -Continue folic acid -Continue beta-blockers Diabetes mellitus, Type 2, uncontrolled, with nephropathy -Diabetic diet -Continue Aspart Sliding scale insulin. -Will continue Levemir 5 units QHS. Goal BG 140-180. hypothyroidism -continue levothyroxine Normocytic anemia -Status post PRBC transfusion. H&H stable around 8. Full code. Heparin SQ. 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, nursing Discharge Planning: Final determination by nephrology whether patient needs permanent dialysis or not. Case management is aware of the need for dialysis. (2) Anemia Qualifiers: Anemia type: due to chronic kidney disease
--- NOTE | 2018-02-23 19:40 | P.PNNP ---
Subjective Interval history: No acute events Physical Exam Vital signs: Vital Signs 02/22/18 20:00 02/23/18 00:00 02/23/18 04:00 Temperature 100.0 F H 99.6 F 99.2 F Pulse Rate 90 90 85 Respiratory Rate 18 Blood Pressure 131/76 101/67 128/80 Pulse Oximetry 95 95 96 02/23/18 08:00 Temperature 97.1 F L Pulse Rate 81 Respiratory Rate 20 Blood Pressure 126/80 Pulse Oximetry 96 Intake & Output 02/23/18 02/23/18 02/24/18 06:59 18:59 06:59 Intake Total 300 / 300 Output Total 450 / 450 Balance -150 / -150 Intake: Other 300 / 300 Output: Urine Amount (Catheter) 450 / 450 Straight 450 / 450 Other: Date of Last Bowel Movement 02/21/18 02/22/18 - Constitutional no acute distress - Routine HEENT Exam Head: Present: normocephalic Eye: Present: EOMI ENT: Present: mucous membranes moist - Routine Neck Exam Present: supple - Routine Respiratory Exam Present: decreased breath sounds - Routine Cardiovascular Exam Present: RRR - Routine Abdominal Exam Present: soft - Routine Extremities Exam Present: vascular access - Routine Skin Exam Present: intact - Routine Neurological Exam Present: alert - Detailed Neurological Exam: Coma Scale Eye Opening: Spontaneous - Urinary Catheter Management Indwelling Temp Sensing Catheter Cath placed during this visit: yes, but has since been removed by the nurse Reason for continuing: Decision to DC catheter Insertion date: 01/14/18 Insertion time: 22:00 Removal date: 01/21/18 Removal time: 18:00 Straight Cath placed during this visit: no Assessment and Plan - Assessment (1) Acute renal failure Code(s): N17.9 - Acute kidney failure, unspecified Status: Acute Plan: Remains dialysis dependent at this time. First HD 01/17/18 , RIJ PermCath placed 02/08/18 Continue HD MWF schedule for the present. With holiday schedule will have HD tomorrow, then Sunday Medications should be adjusted for the patient's estimated GFR if clinically indicated. Avoid agents with significant potential for nephrotoxicity possible including NSAIDs for analgesia, iodine contrast agents. Gadolinium is contraindicated if the GFR is below 30. Continue calcium acetate for hyperphosphatemia. Complements and ADORE normal. SPEP pending. Creatinine remains elevated. If not better, will need out patient HD arrangement. Follow next week to further assess ESRD status for placement purposes at dialysis (2) Anemia Code(s): D64.9 - Anemia, unspecified Status: Acute Qualifiers: Anemia type: due to chronic kidney disease Plan: Epogen with dialysis (3) Hypertension Code(s): I10 - Essential (primary) hypertension Status: Acute Plan: Well controlled, will monitor. (4) Diabetes Code(s): E11.9 - Type 2 diabetes mellitus without complications Status: Acute Plan: Maintain blood sugars between 140 mg /dl to 180 mg/dl while hospitalized. Well controlled.
[2018-02-23] MEDS: Insulin Detemir Inj 1,000 UNIT/10 ML Vial SQ SCH (23:41)
[2018-02-24] MEDS: Pantoprazole Inj 40 MG Vial IV.PUSH SCH ×2 (02:54→17:57)
[2018-02-24] MEDS: Oral Hygiene Kit OROPHARYNG SCH ×2 (04:24→17:56)
[2018-02-24] MEDS: hydrALAZINE 25 MG Tablet PO SCH ×3 (05:35→22:09)
[2018-02-24] MEDS: Levothyroxine 88 MCG Tablet PO SCH (05:36)
[2018-02-24] MEDS: Insulin NovoLOG Aspart Correctional Sugar Inj SQ SCH ×4 (09:33→22:19)
[2018-02-24] MEDS: Artificial Tears Opth Drops 15 ML Bottle EACH EYE SCH ×2 (09:34→17:58)
[2018-02-24] MEDS: Chlorhexidine 0.12% Oral Kit 15 ML UDC OROPHARYNG SCH ×2 (09:34→22:05)
[2018-02-24] MEDS: levETIRAcetam 500 MG Tablet PO SCH ×2 (09:41→22:08)
[2018-02-24] MEDS: amLODIPine 5 MG Tablet PO SCH (09:41)
[2018-02-24] MEDS: Folic Acid 1 MG Tablet PO SCH (09:41)
[2018-02-24] MEDS: Carvedilol 6.25 MG Tablet PO SCH ×2 (09:41→22:08)
[2018-02-24] MEDS: Senna/Docusate Sodium 8.6/50 MG Tablet PO SCH ×2 (09:42→22:09)
[2018-02-24] MEDS: Calcium Acetate 667 MG Capsule PO SCH ×3 (09:42→18:18)
[2018-02-24 11:22] LABS: Hemoglobin 10.4 gm/dL (13.0-17.0); Mean Corpuscular HGB Conc 33.5 % (32.0-36.0); Mean Corpuscular Hemoglobin 29.8 pg (27.0-34.0); Mean Corpuscular Volume 88.9 fL (80.0-100.0); Mean Platelet Volume 7.1 fL (7.0-11.0); Platelet Count 310 th/mm3 (150-450); Red Blood Count 3.49 mil/mm3 (4.50-5.90); Red Cell Distribution Width 16.9 % (11.6-17.2); White Blood Count 7.2 th/mm3 (4.0-11.0)
[2018-02-24 12:06] LABS: Alanine Aminotransferase 12 U/L (12-78); Albumin 3.2 g/dL (3.4-5.0); Alkaline Phosphatase 184 U/L (45-117); Anion Gap 9 meq/L (5-15); Aspartate Aminotransferase 17 U/L (15-37); Blood Urea Nitrogen 18 mg/dL (7-18); Calcium 8.8 mg/dL (8.5-10.1); Carbon Dioxide 30.4 meq/L (21.0-32.0); Chloride 96 meq/L (98-107); Glomerular Filtration Rate 7 mL/min (>89); Glucose,Random 96 mg/dL (74-106); Magnesium 2.4 mg/dL (1.5-2.5); Phosphorus 3.7 mg/dL (2.5-4.9); Potassium 3.6 meq/L (3.5-5.1); Sodium 135 meq/L (136-145)
--- NOTE | 2018-02-24 12:06 | P.PNIM ---
Subjective Interval history: Follow-up for possible anoxic brain injury, hepatic encephalopathy, end-stage renal disease. Patient seen and examined today. Patient is more awake and alert. Follows commands. Diffuse, states that "you are Naz." Reorientation provided. Denies pain or discomfort, chest pain, palpitations. Denies fever, chills. Denies nausea, vomiting, diarrhea Physical Exam Vital signs: Vital Signs 02/23/18 20:00 02/24/18 00:00 02/24/18 02:48 Temperature 97.1 F L 98.7 F Pulse Rate 88 96 H Respiratory Rate 18 18 Blood Pressure 125/81 132/94 H Pulse Oximetry 96 97 02/24/18 04:00 02/24/18 08:00 02/24/18 08:45 Temperature 98.4 F 97.5 F L Pulse Rate 86 93 H 78 Respiratory Rate 18 20 Blood Pressure 124/70 140/80 Pulse Oximetry 94 L 97 Intake & Output 02/23/18 02/24/18 02/24/18 18:59 06:59 18:59 Intake Total 300 / 300 Output Total 450 / 450 Balance -150 / -150 Intake: Other 300 / 300 Output: Urine Amount (Catheter) 450 / 450 Straight 450 / 450 Other: # Incontinent Voids 0 Date of Last Bowel Movement 02/22/18 02/23/18 02/23/18 Narrative: GENERAL: This is a well-nourished patient, in no apparent distress. SKIN: Warm and dry. HEENT: Normocephalic. Pupils equal round and reactive. Nose without bleeding. Airway patent. NECK: Trachea midline. CARDIOVASCULAR: Regular rate and rhythm without murmurs, gallops, or rubs. Right subclavian [place] RESPIRATORY: Diminished bases. No wheezes, rales, or rhonchi. GASTROINTESTINAL: Abdomen soft, non-tender, nondistended. Bowel Sounds normoactive x4. MUSCULOSKELETAL: Extremities without clubbing, cyanosis, or edema. NEUROLOGICAL: Awake and alert. Moves all extremities, weak. Normal speech. Confused. - Urinary Catheter Management Indwelling Temp Sensing Catheter Cath placed during this visit: yes, but has since been removed by the nurse Reason for continuing: Decision to DC catheter Insertion date: 01/14/18 Insertion time: 22:00 Removal date: 01/21/18 Removal time: 18:00 Straight Cath placed during this visit: no Results - Labs CBC & Chem 7: 02/24/18 10:43 02/24/18 10:43 Laboratory Results - last 24 hr 02/23/18 02/23/18 02/23/18 12:10 17:54 23:30 WBC RBC Hgb Hct MCV MCH MCHC RDW Plt Count MPV Sodium Potassium Chloride Carbon Dioxide Anion Gap BUN Creatinine Estimated GFR POC Glucose 131 H 109 101 Random Glucose Calcium Phosphorus Magnesium Total Bilirubin AST ALT Alkaline Phosphatase Total Protein Albumin 02/24/18 02/24/18 02/24/18 07:50 10:43 10:43 WBC 7.2 RBC 3.49 L Hgb 10.4 L Hct 31.0 L MCV 88.9 MCH 29.8 MCHC 33.5 RDW 16.9 Plt Count 310 MPV 7.1 Sodium 135 L Potassium 3.6 Chloride 96 L Carbon Dioxide 30.4 Anion Gap 9 BUN 18 Creatinine 7.94 H Estimated GFR 7 L POC Glucose 90 Random Glucose 96 Calcium 8.8 Phosphorus 3.7 Magnesium 2.4 Total Bilirubin 1.1 H AST 17 ALT 12 Alkaline Phosphatase 184 H Total Protein 7.0 Albumin 3.2 L - Procedures Left IJ HD tunneled cath placed 02/08/18 by IR Assessment and Plan - Assessment (1) Acute renal failure Code(s): N17.9 - Acute kidney failure, unspecified Status: Acute (2) Anemia Code(s): D64.9 - Anemia, unspecified Status: Acute (3) Hypertension Code(s): I10 - Essential (primary) hypertension Status: Acute (4) Diabetes Code(s): E11.9 - Type 2 diabetes mellitus without complications Status: Acute - Plan 62-year-old white male who was admitted with cardiogenic shock and acute respiratory failure requiring CPR and epinephrine in the field, after being found down at home and being witnessed to possibly have undergone seizure-like activity. Intubation was attempted in the field but were unable to do so, patient was ultimately intubated in the hospital, started on pressors, placed in the ICU on mechanical ventilation. Found to have bilateral pneumothoraces with chest tubes placed, had developed some pneumoperitoneum which surgically deemed might have been a leak from his chest tubes as opposed to an acute surgical abdomen. Patient was started on antibiotics empirically for possible aspiration pneumonia but was ultimately discontinued off of them by infectious disease. Developed rhabdomyolysis with worsening acute renal failure which became sustained, with the patient now undergoing dialysis. Ultimately was discontinued off pressors, cardiology deferred heart cath due to renal failure. Patient had difficulty following commands after he was discontinued off of sedation and after extubation. Had an MRI done on 01/17 which showed no acute findings, only an older right parietal CVA. EEG was done which was unremarkable. End-stage renal disease -Cont MWF hemodialysis. -Nephrology following. Patient will likely need permanent dialysis. -will F/u with nephrology if the patient will be on permanent dialysis as they need to make note of that for case management to work on outpatient dialysis and placement. 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 He passed a swallow evaluation. Appear to be more alert. -Continue rehabilitation efforts with physical therapy/OT/speech -Per Neurology, patient can be out of bed. -No acute changes on neurological status Dysphasia: Related to encephalopathy. Probable anoxic injury from cardiogenic shock and respiratory failure. -No NG tube. Currently on Mechanical soft diet. Possible seizure -Continue Keppra 500mg PO BID. -EEG was negative Non-STEMI Hypertension -Troponins elevated to 0.52, 1.89 and 2.37. -Cardiology recommended conservative medical management. -Continue aspirin, carvedilol 6.25 twice daily, isosorbide dinitrate, atorvastatin 20 mg -Continue amlodipine 5 mg daily Bilateral pneumothoraces pneumomediastinum acute respiratory failure -chest tubes removed 01/28/2018 -Continue oxygen supplementation -Appreciate pulmonology following. Patient cannot tolerate BiPAP. -Pneumoperitoneum with right retroperitoneal gas/gas around the right kidney -Likely secondary to bilateral pneumothoraces with no surgical intervention warranted per general surgery Hepatitis secondary to shock Hepatic steatosis Cirrhosis -Possible alcohol abuse -Continue thiamine -Continue folic acid -Continue beta-blockers Diabetes mellitus, Type 2, uncontrolled, with nephropathy -Diabetic diet -Continue Aspart Sliding scale insulin. -Will continue Levemir 5 units QHS. Goal BG 140-180. hypothyroidism -continue levothyroxine Normocytic anemia -Status post PRBC transfusion. H&H stable around 8. Full code. Heparin SQ. Discussed Condition With: Patient, nursing, Dr. Edwards Discharge Planning: Final determination by nephrology whether patient needs permanent dialysis or not. Case management is aware of the possible need for dialysis. No payor source (2) Anemia Qualifiers: Anemia type: due to chronic kidney disease
--- NOTE | 2018-02-24 14:34 | P.PNNP ---
Subjective Interval history: No acute events, seen on dialysis Physical Exam Vital signs: Vital Signs 02/23/18 20:00 02/24/18 00:00 02/24/18 02:48 Temperature 97.1 F L 98.7 F Pulse Rate 88 96 H Respiratory Rate 18 18 18 Blood Pressure 125/81 132/94 H Pulse Oximetry 96 97 02/24/18 04:00 02/24/18 08:00 02/24/18 08:45 Temperature 98.4 F 97.5 F L Pulse Rate 86 93 H 78 Respiratory Rate 18 20 Blood Pressure 124/70 140/80 Pulse Oximetry 94 L 97 Intake & Output 02/23/18 02/24/18 02/24/18 18:59 06:59 18:59 Intake Total 300 / 300 Output Total 450 / 450 Balance -150 / -150 Intake: Other 300 / 300 Output: Urine Amount (Catheter) 450 / 450 Straight 450 / 450 Other: # Incontinent Voids 0 Date of Last Bowel Movement 02/22/18 02/23/18 02/23/18 - Constitutional no acute distress - Routine HEENT Exam Head: Present: normocephalic - Routine Neck Exam Present: supple - Routine Respiratory Exam Present: decreased breath sounds - Routine Cardiovascular Exam Present: RRR - Routine Abdominal Exam Present: soft - Routine Skin Exam Present: intact - Routine Neurological Exam Present: altered mental status - Detailed Neurological Exam: Coma Scale Eye Opening: Spontaneous - Urinary Catheter Management Indwelling Temp Sensing Catheter Cath placed during this visit: yes, but has since been removed by the nurse Reason for continuing: Decision to DC catheter Insertion date: 01/14/18 Insertion time: 22:00 Removal date: 01/21/18 Removal time: 18:00 Straight Cath placed during this visit: no Assessment and Plan - Assessment (1) Acute renal failure Code(s): N17.9 - Acute kidney failure, unspecified Status: Acute Plan: Remains dialysis dependent at this time. First HD 01/17/18 , RIJ PermCath placed 02/08/18 Continue HD MWF schedule for the present. With holiday schedule will have HD today, then Sunday Medications should be adjusted for the patient's estimated GFR if clinically indicated. Avoid agents with significant potential for nephrotoxicity possible including NSAIDs for analgesia, iodine contrast agents. Gadolinium is contraindicated if the GFR is below 30. Continue calcium acetate for hyperphosphatemia. Complements and ADORE normal. SPEP pending. Creatinine remains elevated. If not better, will need out patient HD arrangement. Follow next week to further assess ESRD status for placement purposes at dialysis (2) Anemia Code(s): D64.9 - Anemia, unspecified Status: Acute Qualifiers: Anemia type: due to chronic kidney disease Plan: Epogen with dialysis (3) Hypertension Code(s): I10 - Essential (primary) hypertension Status: Acute Plan: Well controlled, will monitor. (4) Diabetes Code(s): E11.9 - Type 2 diabetes mellitus without complications Status: Acute Plan: Maintain blood sugars between 140 mg /dl to 180 mg/dl while hospitalized. Well controlled.
[2018-02-24] MEDS: Dextrose 5%/NaCl 0.9% Inj 1,000 ML IV.CONT SCH (17:57)
[2018-02-24] MEDS: Insulin Detemir Inj 1,000 UNIT/10 ML Vial SQ SCH (22:12)
[2018-02-25] MEDS: Oral Hygiene Kit OROPHARYNG SCH ×5 (00:56→23:39)
[2018-02-25] MEDS: Artificial Tears Opth Drops 15 ML Bottle EACH EYE SCH ×4 (00:57→23:41)
[2018-02-25] MEDS: Pantoprazole Inj 40 MG Vial IV.PUSH SCH ×2 (01:58→14:01)
[2018-02-25] MEDS: Levothyroxine 88 MCG Tablet PO SCH (05:49)
[2018-02-25] MEDS: hydrALAZINE 25 MG Tablet PO SCH ×3 (05:49→23:39)
[2018-02-25] MEDS: Dextrose 5%/NaCl 0.9% Inj 1,000 ML IV.CONT SCH ×2 (05:56→23:39)
[2018-02-25] MEDS: Chlorhexidine 0.12% Oral Kit 15 ML UDC OROPHARYNG SCH ×2 (07:36→21:57)
[2018-02-25 09:54] LABS: Hematocrit 32.7 % (39.0-51.0); Hemoglobin 10.8 gm/dL (13.0-17.0); Mean Corpuscular HGB Conc 33.2 % (32.0-36.0); Mean Corpuscular Hemoglobin 29.2 pg (27.0-34.0); Mean Platelet Volume 7.5 fL (7.0-11.0); Platelet Count 336 th/mm3 (150-450); Red Blood Count 3.71 mil/mm3 (4.50-5.90); Red Cell Distribution Width 16.6 % (11.6-17.2); White Blood Count 9.8 th/mm3 (4.0-11.0)
[2018-02-25] MEDS: Senna/Docusate Sodium 8.6/50 MG Tablet PO SCH ×2 (10:18→21:07)
[2018-02-25] MEDS: Calcium Acetate 667 MG Capsule PO SCH ×3 (10:18→18:31)
[2018-02-25] MEDS: Folic Acid 1 MG Tablet PO SCH (10:18)
[2018-02-25] MEDS: Carvedilol 6.25 MG Tablet PO SCH ×2 (10:18→21:07)
[2018-02-25] MEDS: levETIRAcetam 500 MG Tablet PO SCH ×2 (10:18→21:07)
[2018-02-25] MEDS: amLODIPine 5 MG Tablet PO SCH (10:19)
[2018-02-25 10:43] LABS: Alanine Aminotransferase 10 U/L (12-78); Albumin 3.2 g/dL (3.4-5.0); Alkaline Phosphatase 190 U/L (45-117); Anion Gap 10 meq/L (5-15); Aspartate Aminotransferase 14 U/L (15-37); Blood Urea Nitrogen 13 mg/dL (7-18); Calcium 8.8 mg/dL (8.5-10.1); Carbon Dioxide 29.6 meq/L (21.0-32.0); Chloride 97 meq/L (98-107); Glomerular Filtration Rate 10 mL/min (>89); Glucose,Random 85 mg/dL (74-106); Magnesium 2.3 mg/dL (1.5-2.5); Phosphorus 2.9 mg/dL (2.5-4.9); Potassium 3.3 meq/L (3.5-5.1); Sodium 137 meq/L (136-145); Total Protein 7.1 g/dL (6.4-8.2)
--- NOTE | 2018-02-25 11:41 | P.PNIM ---
Subjective Interval history: Follow-up for possible anoxic brain injury, hepatic encephalopathy, end-stage renal disease. Patient seen and examined today. and family member. Patient more awake and alert and more conversant. Denies pain or discomfort, chest pain, palpitations. Denies fever, chills. Denies nausea, vomiting, diarrhea Physical Exam Vital signs: Vital Signs 02/24/18 20:00 02/25/18 01:14 02/25/18 03:11 Temperature 98.0 F 98.1 F Pulse Rate 97 H 103 H Respiratory Rate 16 18 18 Blood Pressure 147/95 H 114/72 Pulse Oximetry 95 95 02/25/18 04:00 Temperature 98.0 F Pulse Rate 96 H Respiratory Rate 20 Blood Pressure 138/82 Pulse Oximetry 95 Intake & Output 02/24/18 02/25/18 02/25/18 18:59 06:59 18:59 Output Total 6401 / 6401 Balance -6401 / -6401 Output: Stool 1 / 1 Pleural Fluid 0 / 0 Hemodialysis Amount 6000 / 6000 Urine Amount (Catheter) 400 / 400 Indwelling Temp Sensing 0 / 0 Catheter Straight 400 / 400 Other: # Voids 3 Date of Last Bowel Movement 02/23/18 Narrative: GENERAL: This is a well-nourished patient, in no apparent distress. SKIN: Warm and dry. HEENT: Normocephalic. Pupils equal round and reactive. Nose without bleeding. Airway patent. NECK: Trachea midline. CARDIOVASCULAR: Regular rate and rhythm without murmurs, gallops, or rubs. Right subclavian Shiley RESPIRATORY: Diminished bases. No wheezes, rales, or rhonchi. GASTROINTESTINAL: Abdomen soft, non-tender, nondistended. Bowel Sounds normoactive x4. MUSCULOSKELETAL: Extremities without clubbing, cyanosis, or edema. NEUROLOGICAL: Awake and alert. Moves all extremities, weak. Normal speech. Confused. - Urinary Catheter Management Indwelling Temp Sensing Catheter Cath placed during this visit: yes, but has since been removed by the nurse Reason for continuing: Decision to DC catheter Insertion date: 01/14/18 Insertion time: 22:00 Removal date: 01/21/18 Removal time: 18:00 Straight Cath placed during this visit: no Results - Labs CBC & Chem 7: 02/25/18 09:04 02/25/18 09:04 Laboratory Results - last 24 hr 02/22/18 02/24/18 02/24/18 06:01 10:43 15:46 WBC RBC Hgb Hct MCV MCH MCHC RDW Plt Count MPV Sodium 135 L Potassium 3.6 Chloride 96 L Carbon Dioxide 30.4 Anion Gap 9 BUN 18 Creatinine 7.94 H Estimated GFR 7 L POC Glucose 85 Random Glucose 96 Calcium 8.8 Phosphorus 3.7 Magnesium 2.4 Total Bilirubin 1.1 H AST 17 ALT 12 Alkaline Phosphatase 184 H Total Protein 7.0 Albumin 3.2 L Anti-Proteinase 3 Less than 1.0 Anti-Myeloperoxidase Less than 1.0 02/24/18 02/25/18 02/25/18 22:18 09:04 09:04 WBC 9.8 RBC 3.71 L Hgb 10.8 L Hct 32.7 L MCV 88.0 MCH 29.2 MCHC 33.2 RDW 16.6 Plt Count 336 MPV 7.5 Sodium 137 Potassium 3.3 L Chloride 97 L Carbon Dioxide 29.6 Anion Gap 10 BUN 13 Creatinine 5.83 H Estimated GFR 10 L POC Glucose 98 Random Glucose 85 Calcium 8.8 Phosphorus 2.9 Magnesium 2.3 Total Bilirubin 1.0 AST 14 L ALT 10 L Alkaline Phosphatase 190 H Total Protein 7.1 Albumin 3.2 L Anti-Proteinase 3 Anti-Myeloperoxidase 02/25/18 10:21 WBC RBC Hgb Hct MCV MCH MCHC RDW Plt Count MPV Sodium Potassium Chloride Carbon Dioxide Anion Gap BUN Creatinine Estimated GFR POC Glucose 179 H Random Glucose Calcium Phosphorus Magnesium Total Bilirubin AST ALT Alkaline Phosphatase Total Protein Albumin Anti-Proteinase 3 Anti-Myeloperoxidase - Procedures Left IJ HD tunneled cath placed 02/08/18 by IR Assessment and Plan - Assessment (1) Acute renal failure Code(s): N17.9 - Acute kidney failure, unspecified Status: Acute (2) Anemia Code(s): D64.9 - Anemia, unspecified Status: Acute (3) Hypertension Code(s): I10 - Essential (primary) hypertension Status: Acute (4) Diabetes Code(s): E11.9 - Type 2 diabetes mellitus without complications Status: Acute - Plan 62-year-old white male who was admitted with cardiogenic shock and acute respiratory failure requiring CPR and epinephrine in the field, after being found down at home and being witnessed to possibly have undergone seizure-like activity. Intubation was attempted in the field but were unable to do so, patient was ultimately intubated in the hospital, started on pressors, placed in the ICU on mechanical ventilation. Found to have bilateral pneumothoraces with chest tubes placed, had developed some pneumoperitoneum which surgically deemed might have been a leak from his chest tubes as opposed to an acute surgical abdomen. Patient was started on antibiotics empirically for possible aspiration pneumonia but was ultimately discontinued off of them by infectious disease. Developed rhabdomyolysis with worsening acute renal failure which became sustained, with the patient now undergoing dialysis. Ultimately was discontinued off pressors, cardiology deferred heart cath due to renal failure. Patient had difficulty following commands after he was discontinued off of sedation and after extubation. Had an MRI done on 01/17 which showed no acute findings, only an older right parietal CVA. EEG was done which was unremarkable. End-stage renal disease -Cont MWF hemodialysis. -Nephrology following. Patient will likely need permanent dialysis. -will F/u with nephrology if the patient will be on permanent dialysis as they need to make note of that for case management to work on outpatient dialysis and placement. 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 He passed a swallow evaluation. Appear to be more alert. -Continue rehabilitation efforts with physical therapy/OT/speech -Per Neurology, patient can be out of bed. -No acute changes on neurological status Dysphasia: Related to encephalopathy. Probable anoxic injury from cardiogenic shock and respiratory failure. -No NG tube. Currently on Mechanical soft diet. Possible seizure -Continue Keppra 500mg PO BID. -EEG was negative Non-STEMI Hypertension -Troponins elevated to 0.52, 1.89 and 2.37. -Cardiology recommended conservative medical management. -Continue aspirin, carvedilol 6.25 twice daily, isosorbide dinitrate, atorvastatin 20 mg -Continue amlodipine 5 mg daily Bilateral pneumothoraces pneumomediastinum acute respiratory failure -chest tubes removed 01/28/2018 -Continue oxygen supplementation -Appreciate pulmonology following. Patient cannot tolerate BiPAP. -Pneumoperitoneum with right retroperitoneal gas/gas around the right kidney -Likely secondary to bilateral pneumothoraces with no surgical intervention warranted per general surgery Hepatitis secondary to shock Hepatic steatosis Cirrhosis -Possible alcohol abuse -Continue thiamine -Continue folic acid -Continue beta-blockers Diabetes mellitus, Type 2, uncontrolled, with nephropathy -Diabetic diet -Continue Aspart Sliding scale insulin. -Will continue Levemir 5 units QHS. Goal BG 140-180. hypothyroidism -continue levothyroxine Normocytic anemia -Status post PRBC transfusion. H&H stable around 8. Full code. Heparin SQ. Discussed Condition With: Patient, , nursing Discharge Planning: Final determination by nephrology whether patient needs permanent dialysis or not. Case management is aware of the possible need for dialysis. No payor source (2) Anemia Qualifiers: Anemia type: due to chronic kidney disease
[2018-02-25] MEDS: Insulin NovoLOG Aspart Correctional Sugar Inj SQ SCH ×4 (11:55→21:12)
--- NOTE | 2018-02-25 15:58 | P.PNPAL ---
Reason for Visit Reason for visit: a. To assist with evaluation and management of symptoms including: Dysphasia, weakness b. To assist medical decision maker(s) with: better understanding of current medical conditions; weighing benefits/burdens of medical treatment options; making medical treatment decisions. Subjective Subjective/Interval History: This is a 62-year-old male who presented to [facility] [place] via EMS for altered mental status and seizures. He has had multiple admissions to [facility] in 2018 mostly for alcohol intoxication the most recent was 4 days prior to this current admission. He has a long history of alcoholism. His reports he drinks 1 L of vodka daily. While in the ED he became obtunded and began vomiting dark material. Due to his inability to protect his airway, he was intubated. After the initial intubation he became combative and dislodged the tube acquiring removal of the initial ET tube and replacement of a second tube. After intubation, he subsequently went into cardiopulmonary arrest with ROSC after 2 cycles of CPR. Post CPR he was found to have significant subcu emphysema and was emergently sent to CT with CT of the head, chest and abdomen showed bilateral tension pneumothoraces as well as free air in the peritoneal cavity. Bilateral chest tubes were placed immediately and he was transferred to ICU where he arrested again and again had spontaneous return of circulation. Labs showed acute kidney injury, presumed to be from severe dehydration and aggressive IV fluid resuscitation was initiated. He was also found to have severe sepsis and vancomycin and cefepime were initiated with an infectious disease consultation and blood cultures. He remained critically ill requiring maximum doses of vasopressor support to include norepinephrine, vasopressin and epinephrine with subsequent worsening of his renal indices, eventually requiring dialysis. He initially required Flolan in addition to aggressive APRV mode of ventilation and after an 11-day course of intubation was subsequently extubated 01/25/2018. Patient seen today for medically necessary follow-up of dysphasia and weakness. Patient remains on nectar thickened liquids, mechanical soft diet. Speech therapy evaluation revealed a wet vocal quality with thin liquids and mild increased mastication time with firm solids. No overt signs or symptoms of aspiration with nectar liquids and mechanical soft solids. It appears to be related to his encephalopathy which is thought to be a result of anoxic injury from cardiogenic shock and respiratory failure. PT is following for generalized weakness. Patient is able to perform assisted bed exercises and briefly sit on the edge of the bed but is very unsteady requiring moderate to maximum assist for sitting balance. Patient was deemed to be too tired and weak to attempt standing with the therapist working alone. In prior therapy sessions it has required 2-3 therapists to support the patient in standing. . Family/Friend Interactions: Spoke with patient's and sister in conference room regarding patient's prognosis. They note that he has inappropriate behavior and thoughts that he would previously not have exhibited. They are both aware of a significant change in his behavior since his cardiac arrest and critical illness. They have noted that in spite of the fact that he can move his right arm and hand, he says he cannot feed himself and requires to be fed. They are concerned about the inconsistency of his behavior with his actions. Discussed anoxic/ hypoxic brain injury and reviewed sequelae and likely scenarios going forward. They are aware that he will reside in a penitentiary facility likely for the rest of his life, unable to take care of himself and would likely suffer the complications of wounds and recurrent infections. They state that this would not be his wishes and after extensive discussion of resuscitative measures, they have determined that a DO NOT RESUSCITATE status would be most consistent with his wishes. As they are both in agreement on this, DO NOT RESUSCITATE status was entered for CODE STATUS during this meeting. All questions answered to the best of my ability. . Advance Directives Living Will: Never completed Health Care Surrogate: Never completed Durable Power of Lining Repairer: Never completed Objective Vital Signs: Vital Signs 02/24/18 20:00 02/25/18 01:14 02/25/18 03:11 Temperature 98.0 F 98.1 F Pulse Rate 97 H 103 H Respiratory Rate 16 18 18 Blood Pressure 147/95 H 114/72 Pulse Oximetry 95 95 02/25/18 04:00 Temperature 98.0 F Pulse Rate 96 H Respiratory Rate 20 Blood Pressure 138/82 Pulse Oximetry 95 Intake & Output 02/24/18 02/25/18 02/25/18 18:59 06:59 18:59 Output Total 6401 / 6401 Balance -6401 / -6401 Output: Stool 1 / 1 Pleural Fluid 0 / 0 Hemodialysis Amount 6000 / 6000 Urine Amount (Catheter) 400 / 400 Indwelling Temp Sensing 0 / 0 Catheter Straight 400 / 400 Other: # Voids 3 Date of Last Bowel Movement 02/23/18 Physical Exam: CONSTITUTIONAL/GENERAL: This is an overweight male patient, lying in bed, lethargic, in no apparent distress. TUBES/LINES/DRAINS: PIV, right Perma-Cath SKIN: Appears slightly jaundiced. CARDIOVASCULAR: Regular rate and rhythm without murmurs, gallops, or rubs. No JVD. Peripheral pulses symmetric. RESPIRATORY/CHEST: Symmetric, unlabored respirations. Lungs diminished with scattered rhonchi. GASTROINTESTINAL: Abdomen soft, non-tender, nondistended. No hepato-splenomegaly , or palpable masses. No guarding. Bowel sounds present. GENITOURINARY: Without palpable bladder distension. MUSCULOSKELETAL: Left upper extremity weak, able to move hand and forearm weekly , unable to raise arm, falls back to the bed when passively raised and released. Right upper extremity with full ROM, generalized weakness, BLE generalized weakness L>R. NEUROLOGICAL: Alert, some answers are appropriate, oriented to place, self with poor insight. PSYCHIATRIC: Calm, interactive, appropriate. . Diagnostic Tests Laboratory: Laboratory Results - last 72 hr 02/22/18 02/22/18 02/22/18 06:01 16:52 22:21 WBC RBC Hgb Hct MCV MCH MCHC RDW Plt Count MPV Prelim Diff (Auto) Neut % (Auto) Lymph % (Auto) Dawes % (Auto) Eos % (Auto) Baso % (Auto) Neut # (Auto) Lymph # (Auto) Dawes # (Auto) Eos # (Auto) Baso # (Auto) WBC Differential Seg Neuts % (Manual) Band Neuts % (Manual) Lymphocytes % (Manual) Monocytes % (Manual) Basophils % (Manual) Metamyelocytes % (Man) Myelocytes % (Man) Abs Neuts (Manual) Differential Comment Platelet Estimate Platelet Morphology Ovalocytes Sodium Potassium Chloride Carbon Dioxide Anion Gap BUN Creatinine Estimated GFR POC Glucose 104 113 H Random Glucose Calcium Phosphorus Magnesium Total Bilirubin AST ALT Alkaline Phosphatase Total Protein Albumin Anti-Proteinase 3 Less than 1.0 Anti-Myeloperoxidase Less than 1.0 02/23/18 02/23/18 02/23/18 07:04 07:04 08:43 WBC 7.1 RBC 3.61 L Hgb 10.9 L Hct 32.0 L MCV 88.6 MCH 30.0 MCHC 33.9 RDW 16.6 Plt Count 292 MPV 7.3 Prelim Diff (Auto) Slide review pending Neut % (Auto) 55.2 Lymph % (Auto) 24.7 Dawes % (Auto) 16.8 H Eos % (Auto) 0.7 Baso % (Auto) 2.6 H Neut # (Auto) 3.9 Lymph # (Auto) 1.8 Dawes # (Auto) 1.2 H Eos # (Auto) 0.1 Baso # (Auto) 0.2 WBC Differential Manual diff final Seg Neuts % (Manual) 56 Band Neuts % (Manual) 1 Lymphocytes % (Manual) 28 Monocytes % (Manual) 4 Basophils % (Manual) 2 Metamyelocytes % (Man) 3 H Myelocytes % (Man) 6 H Abs Neuts (Manual) 4.7 Differential Comment . Platelet Estimate Normal Platelet Morphology Normal Ovalocytes 1+ H Sodium 134 L Potassium 4.0 Chloride 95 L Carbon Dioxide 32.1 H Anion Gap 7 BUN 12 Creatinine 5.98 H Estimated GFR 10 L POC Glucose 105 Random Glucose 105 Calcium 8.8 Phosphorus 2.8 Magnesium Total Bilirubin AST ALT Alkaline Phosphatase Total Protein Albumin 3.2 L Anti-Proteinase 3 Anti-Myeloperoxidase 02/23/18 02/23/18 02/23/18 12:10 17:54 23:30 WBC RBC Hgb Hct MCV MCH MCHC RDW Plt Count MPV Prelim Diff (Auto) Neut % (Auto) Lymph % (Auto) Dawes % (Auto) Eos % (Auto) Baso % (Auto) Neut # (Auto) Lymph # (Auto) Dawes # (Auto) Eos # (Auto) Baso # (Auto) WBC Differential Seg Neuts % (Manual) Band Neuts % (Manual) Lymphocytes % (Manual) Monocytes % (Manual) Basophils % (Manual) Metamyelocytes % (Man) Myelocytes % (Man) Abs Neuts (Manual) Differential Comment Platelet Estimate Platelet Morphology Ovalocytes Sodium Potassium Chloride Carbon Dioxide Anion Gap BUN Creatinine Estimated GFR POC Glucose 131 H 109 101 Random Glucose Calcium Phosphorus Magnesium Total Bilirubin AST ALT Alkaline Phosphatase Total Protein Albumin Anti-Proteinase 3 Anti-Myeloperoxidase 02/24/18 02/24/18 02/24/18 07:50 10:43 10:43 WBC 7.2 RBC 3.49 L Hgb 10.4 L Hct 31.0 L MCV 88.9 MCH 29.8 MCHC 33.5 RDW 16.9 Plt Count 310 MPV 7.1 Prelim Diff (Auto) Neut % (Auto) Lymph % (Auto) Dawes % (Auto) Eos % (Auto) Baso % (Auto) Neut # (Auto) Lymph # (Auto) Dawes # (Auto) Eos # (Auto) Baso # (Auto) WBC Differential Seg Neuts % (Manual) Band Neuts % (Manual) Lymphocytes % (Manual) Monocytes % (Manual) Basophils % (Manual) Metamyelocytes % (Man) Myelocytes % (Man) Abs Neuts (Manual) Differential Comment Platelet Estimate Platelet Morphology Ovalocytes Sodium 135 L Potassium 3.6 Chloride 96 L Carbon Dioxide 30.4 Anion Gap 9 BUN 18 Creatinine 7.94 H Estimated GFR 7 L POC Glucose 90 Random Glucose 96 Calcium 8.8 Phosphorus 3.7 Magnesium 2.4 Total Bilirubin 1.1 H AST 17 ALT 12 Alkaline Phosphatase 184 H Total Protein 7.0 Albumin 3.2 L Anti-Proteinase 3 Anti-Myeloperoxidase 02/24/18 02/24/18 02/25/18 15:46 22:18 09:04 WBC 9.8 RBC 3.71 L Hgb 10.8 L Hct 32.7 L MCV 88.0 MCH 29.2 MCHC 33.2 RDW 16.6 Plt Count 336 MPV 7.5 Prelim Diff (Auto) Neut % (Auto) Lymph % (Auto) Dawes % (Auto) Eos % (Auto) Baso % (Auto) Neut # (Auto) Lymph # (Auto) Dawes # (Auto) Eos # (Auto) Baso # (Auto) WBC Differential Seg Neuts % (Manual) Band Neuts % (Manual) Lymphocytes % (Manual) Monocytes % (Manual) Basophils % (Manual) Metamyelocytes % (Man) Myelocytes % (Man) Abs Neuts (Manual) Differential Comment Platelet Estimate Platelet Morphology Ovalocytes Sodium Potassium Chloride Carbon Dioxide Anion Gap BUN Creatinine Estimated GFR POC Glucose 85 98 Random Glucose Calcium Phosphorus Magnesium Total Bilirubin AST ALT Alkaline Phosphatase Total Protein Albumin Anti-Proteinase 3 Anti-Myeloperoxidase 02/25/18 02/25/18 02/25/18 09:04 10:21 12:24 WBC RBC Hgb Hct MCV MCH MCHC RDW Plt Count MPV Prelim Diff (Auto) Neut % (Auto) Lymph % (Auto) Dawes % (Auto) Eos % (Auto) Baso % (Auto) Neut # (Auto) Lymph # (Auto) Dawes # (Auto) Eos # (Auto) Baso # (Auto) WBC Differential Seg Neuts % (Manual) Band Neuts % (Manual) Lymphocytes % (Manual) Monocytes % (Manual) Basophils % (Manual) Metamyelocytes % (Man) Myelocytes % (Man) Abs Neuts (Manual) Differential Comment Platelet Estimate Platelet Morphology Ovalocytes Sodium 137 Potassium 3.3 L Chloride 97 L Carbon Dioxide 29.6 Anion Gap 10 BUN 13 Creatinine 5.83 H Estimated GFR 10 L POC Glucose 179 H 178 H Random Glucose 85 Calcium 8.8 Phosphorus 2.9 Magnesium 2.3 Total Bilirubin 1.0 AST 14 L ALT 10 L Alkaline Phosphatase 190 H Total Protein 7.1 Albumin 3.2 L Anti-Proteinase 3 Anti-Myeloperoxidase Result Diagrams: 02/28/18 04:47 02/28/18 04:47 Microbiology: Microbiology 02/04/18 12:36 Blood - Line Aerobic Blood Culture - Final No growth in 5 days 02/04/18 12:36 Blood - Line Anaerobic Blood Culture - Final No growth in 5 days 02/04/18 12:30 Blood - Line Aerobic Blood Culture - Final No growth in 5 days 02/04/18 12:30 Blood - Line Anaerobic Blood Culture - Final No growth in 5 days 01/29/18 14:27 Blood - Peripheral Aerobic Blood Culture - Final No growth in 5 days 01/29/18 14:27 Blood - Peripheral Anaerobic Blood Culture - Final No growth in 5 days 01/29/18 14:35 Blood - Peripheral Aerobic Blood Culture - Final No growth in 5 days 01/29/18 14:35 Blood - Peripheral Anaerobic Blood Culture - Final Staphylococcus epidermidis 01/15/18 03:30 Blood - Peripheral Aerobic Blood Culture - Final No growth in 5 days 01/15/18 03:30 Blood - Peripheral Anaerobic Blood Culture - Final No growth in 5 days 01/15/18 03:39 Blood - Peripheral Aerobic Blood Culture - Final No growth in 5 days 01/15/18 03:39 Blood - Peripheral Anaerobic Blood Culture - Final No growth in 5 days 01/16/18 17:30 Stool Stool Occult Blood (GINA) - Final Hemoccult positive Imaging: ITS Impressions Cervical Spine CT 01/14/18 21:58 CONCLUSION: 1. No acute fracture or malalignment. 2. Subcutaneous emphysema again noted as well as the known right pneumothorax. Head CT 01/14/18 21:58 CONCLUSION: 1. No acute hemorrhage or mass effect. 2. Stable area of encephalomalacia in the right lateral lobe. . Abdomen/Bladder Ultrasound 01/16/18 00:00 CONCLUSION: 1. Trace ascites. 2. Negative renal ultrasound Abdomen/Pelvis CT 01/16/18 00:00 CONCLUSION: 1. Minimal free intraperitoneal air. I don't see etiology for such 2. Dense consolidation both lung bases with small bilateral chest tubes 3. Trace pneumothorax on the left. No pneumothorax on the right. 4. Moderate fatty replacement to the liver with prominent gallbladder Chest CT 01/16/18 00:00 . CONCLUSION: 1. Dense consolidation in both lung bases small bore chest tubes evident. 2. Trace pneumothorax on the left 3. No significant fluid. Cervical Spine MRI 01/27/18 00:00 CONCLUSION: 1. No fracture or subluxation seen of the cervical spine but there is edema in the erector spinae muscles, especially on the right at the level of the upper cervical spine. This is nonspecific but presumably related to an acute or subacute strain. Localized early denervation would be conceivable but I don't see any atrophy. 2. There is an age-indeterminate left foraminal disc protrusion at C3/C4 that is probably impinging on the transiting left C4 nerve root. 3. Multilevel degenerative changes that otherwise appear chronic, as described. Associated high-grade foraminal stenosis on the right at C4/C5, bilateral at C5/C6 and C6/C7. No high-grade spinal stenosis demonstrated. Head MRI 01/27/18 00:00 CONCLUSION: 1. Remote right posterior parietal mid convexity infarct. 2. Mild cerebral atrophy with mild periventricular ischemic white matter demyelination. 3. Stable paranasal sinus mucosal disease and mastoiditis. 4. No acute abnormality. Specifically, no acute infarction or hemorrhage. Abdomen X-Ray 01/28/18 00:00 CONCLUSION: Mild gaseous distention of bowel. Carotid Doppler Study 01/28/18 00:00 CONCLUSION: 1. Right Internal Carotid Artery: No significant stenosis or atherosclerotic plaque is visualized. 2. Left Internal Carotid Artery: No significant stenosis or atherosclerotic plaque is visualized. Venous Doppler Study 02/05/18 00:00 CONCLUSION: No venous thrombosis is identified within the left upper extremity. Catheter Placement 02/08/18 00:00 CONCLUSION: 1. Uncomplicated line placement as above. Tube Removal 02/08/18 00:00 CONCLUSION: 1. Uncomplicated catheter removal. Chest X-Ray 02/20/18 00:00 CONCLUSION: Minimal deterioration with increasing air bronchograms left base Procedures: 01/14: Intubation x2 01/14: Right and left chest tube placement 01/14: Right brachial arterial line placement 01/14: Right subclavian central line placement 01/17: Placement of L IJ hemodialysis catheter. Assessment and Plan - Disease Oriented Problem List (1) Delirium tremens (2) Bilateral pneumothoraces (3) Endotracheally intubated (4) Elevated troponin (5) Acute renal failure (6) Alcohol abuse (7) Alcohol withdrawal seizure with complication (8) Rhabdomyolysis Pertinent Non-Medical Issues: Psychosocial: He lived in many states growing up. 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 He has been once to his current , from who he is now and has no children. 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 Legal: No advance directives completed. Ethical issues impacting care: Patient does not appear capacitated for decision- making. . Important Contacts: : Tressa Canseco [phone] Sister: Lala Canseco . Prognosis: His prognosis is guarded. He still has significant deficits and is at risk for recurrent complications, infections and decline. At this time he has multisystem organ compromise to include cardiogenic shock status post NC on admission with cardiac arrest x2, respiratory insufficiency, acute kidney injury on hemodialysis and hepatitis secondary to shock. It is the opinion of nephrology that his renal failure is caused by his cardiac failure equating to cardiorenal syndrome. He has left-sided weakness and appears aphasic at this time. Pending speech therapy evaluation. He was previously too unstable from a respiratory standpoint to undergo evaluation. He is at significant risk for continued complications and decline. . Code Status: No Code DNR Plan: PLAN: Legal decision maker: At this time the patient is not capacitated for decision-making and it is uncertain whether he statutes, his Tressa would be his proxy decision-maker. Goals: Aggressive short of no code CODE STATUS: DO NOT RESUSCITATE SYMPTOMS: * Dysphasia: Speech therapy has evaluated and found him to have mild oropharyngeal dysphasia and has placed him on a mechanical soft diet with nectar thickened liquids. He has failed repeated attempts at thin liquids by the teaspoon. He is seen to have difficulty controlling food boluses in his mouth due to erratic cognition. He intermittently forgets what he is doing and starts talking while chewing. He requires feeding. Speech therapy continues to follow. He continues to lose weight with admission weight 271 pounds, today' s weight 210 pounds, a loss of 61 pounds in 29 days, but BMI remains at 30.2 still in the obese range. * Weakness: Bilateral upper extremity weakness left greater than right. Requiring physical therapy 7 days a week. Also receiving OT and ST. Therapy is complicated by his dialysis treatments. He is able to move his left hand but not lift his arm, right arm remains grossly weak with some movement. He is dependent for all ADLs and cannot feed himself, whether due to weakness or cognitive impairment is unclear. Physical therapy is recommended, however patient has no payer source so placement would have to be on a chauncey basis. As his dialysis is considered acute and not chronic at this time, [facility] states he cannot apply for disability, but with no renal recovery being seen, this may become chronic. Placement is likely to be difficult. Palliative care will continue to follow the patient during hospital course as condition evolves, to assist patient/decision-maker with understanding of their medical conditions, weighing benefits/burdens of treatment options, for clarification of goals of treatment. Additionally will assist with any symptoms of palliative concern. . Attestation Attestation: To help prompt me to consider important information that might be impacting today's encounter and assessment, information from prior notes written by myself or my colleagues may have been "brought forward" into today's note. My signature on this note, however, is an attestation that I personally performed the exam, history, and/or decision-making noted today, and, unless otherwise indicated, the interactions with patient, family, and staff as well as the review of records all occurred today. I also attest that the listed assessment and stated plan reflect my best clinical judgment today based on the combination of historical information, prior notes, and today's exam/ interactions. When time spent is documented, it refers only to time spent today by the signer, or if indicated, combined time spent today by collaborating physician/nurse practitioner. .
--- NOTE | 2018-02-25 21:04 | P.PNNP ---
Subjective Interval history: Patient seen in late afternoon, not in distress. Physical Exam Vital signs: Vital Signs 02/25/18 01:14 02/25/18 03:11 02/25/18 04:00 Temperature 98.1 F 98.0 F Pulse Rate 103 H 96 H Respiratory Rate 18 18 20 Blood Pressure 114/72 138/82 Pulse Oximetry 95 95 02/25/18 16:07 Temperature Pulse Rate 81 Respiratory Rate Blood Pressure Pulse Oximetry Intake & Output 02/25/18 02/25/18 02/26/18 06:59 18:59 06:59 Intake Total 750 / 750 Output Total 0 / 0 Balance 750 / 750 Intake: Oral 750 / 750 Output: Pleural Fluid 0 / 0 Other: # Voids 3 0 Date of Last Bowel Movement 02/23/18 Narrative: GENERAL: This is a well-nourished patient, in no apparent distress. SKIN: Warm and dry. HEENT: Normocephalic. Pupils equal round and reactive. Nose without bleeding. Airway patent. NECK: Trachea midline. CARDIOVASCULAR: Regular rate and rhythm without murmurs, gallops, or rubs. Right subclavian Shiley RESPIRATORY: Diminished bases. No wheezes, rales, or rhonchi. GASTROINTESTINAL: Abdomen soft, non-tender, nondistended. Bowel Sounds normoactive x4. MUSCULOSKELETAL: Extremities without clubbing, cyanosis, or edema. NEUROLOGICAL: Awake and alert. Moves all extremities, weak. Normal speech. Confused. - Urinary Catheter Management Indwelling Temp Sensing Catheter Cath placed during this visit: yes, but has since been removed by the nurse Reason for continuing: Decision to DC catheter Insertion date: 01/14/18 Insertion time: 22:00 Removal date: 01/21/18 Removal time: 18:00 Straight Cath placed during this visit: no Assessment and Plan - Assessment (1) Acute renal failure Code(s): N17.9 - Acute kidney failure, unspecified Status: Acute Plan: Remains dialysis dependent at this time. First HD 01/17/18 , RIJ PermCath placed 02/08/18 Continue HD MWF schedule for the present. Medications should be adjusted for the patient's estimated GFR if clinically indicated. Avoid agents with significant potential for nephrotoxicity possible including NSAIDs for analgesia, iodine contrast agents. Gadolinium is contraindicated if the GFR is below 30. Continue calcium acetate for hyperphosphatemia. Complements and ADORE normal. SPEP pending. Creatinine remains elevated. If not better, will need out patient HD arrangement. HD done yesterday. D/W the patient and his . Follow next week to further assess ESRD status for placement purposes at dialysis (2) Anemia Code(s): D64.9 - Anemia, unspecified Status: Acute Qualifiers: Anemia type: due to chronic kidney disease Plan: Epogen with dialysis (3) Hypertension Code(s): I10 - Essential (primary) hypertension Status: Acute Plan: Well controlled, will monitor. (4) Diabetes Code(s): E11.9 - Type 2 diabetes mellitus without complications Status: Acute Plan: Maintain blood sugars between 140 mg /dl to 180 mg/dl while hospitalized. Well controlled.
[2018-02-25] MEDS: Insulin Detemir Inj 1,000 UNIT/10 ML Vial SQ SCH (21:11)
[2018-02-26] MEDS: Morphine Sulfate Inj 2 MG/ML Vial IV.PUSH PRN ×4 (00:29→23:05)
[2018-02-26] MEDS: Pantoprazole Inj 40 MG Vial IV.PUSH SCH ×2 (01:34→13:58)
[2018-02-26] MEDS: Oral Hygiene Kit OROPHARYNG SCH ×3 (05:00→17:20)
[2018-02-26] MEDS: Levothyroxine 88 MCG Tablet PO SCH (05:51)
[2018-02-26] MEDS: hydrALAZINE 25 MG Tablet PO SCH ×3 (05:51→22:00)
[2018-02-26 08:14] LABS: Hematocrit 29.4 % (39.0-51.0); Hemoglobin 9.6 gm/dL (13.0-17.0); Mean Corpuscular HGB Conc 32.7 % (32.0-36.0); Mean Corpuscular Hemoglobin 29.1 pg (27.0-34.0); Mean Corpuscular Volume 88.9 fL (80.0-100.0); Mean Platelet Volume 7.3 fL (7.0-11.0); Platelet Count 323 th/mm3 (150-450); Red Blood Count 3.31 mil/mm3 (4.50-5.90); Red Cell Distribution Width 16.6 % (11.6-17.2); White Blood Count 10.4 th/mm3 (4.0-11.0)
[2018-02-26 08:32] LABS: Alanine Aminotransferase 8 U/L (12-78); Alkaline Phosphatase 175 U/L (45-117); Anion Gap 10 meq/L (5-15); Aspartate Aminotransferase 12 U/L (15-37); Blood Urea Nitrogen 19 mg/dL (7-18); Calcium 8.5 mg/dL (8.5-10.1); Carbon Dioxide 30.3 meq/L (21.0-32.0); Chloride 95 meq/L (98-107); Glomerular Filtration Rate 7 mL/min (>89); Glucose,Random 76 mg/dL (74-106); Magnesium 2.3 mg/dL (1.5-2.5); Phosphorus 2.8 mg/dL (2.5-4.9); Potassium 3.4 meq/L (3.5-5.1); Sodium 135 meq/L (136-145); Total Protein 6.7 g/dL (6.4-8.2)
--- NOTE | 2018-02-26 09:24 | P.PN ---
Subjective Interval history: Follow-up for suspected anoxic brain injury, hepatic encephalopathy, end-stage renal disease. Patient has no specific medical complaints today. He is asking when he can see his . Denies any headache, lightheadedness, chest pain, shortness of breath, or abdominal complaints. Physical Exam Vital signs: Vital Signs 02/25/18 16:07 02/25/18 21:06 02/26/18 00:32 Temperature 97.9 F 98.2 F Pulse Rate 81 81 88 Respiratory Rate 18 18 Blood Pressure 122/71 113/69 Pulse Oximetry 93 L 93 L 02/26/18 04:30 02/26/18 04:50 02/26/18 07:53 Temperature 97.9 F 97.9 F Pulse Rate 85 81 80 Respiratory Rate 18 18 Blood Pressure 129/68 121/70 Pulse Oximetry 93 L 93 L Intake & Output 02/25/18 02/26/18 02/26/18 18:59 06:59 18:59 Intake Total 750 / 750 Output Total 0 / 0 0 / 0 Balance 750 / 750 0 / 0 Intake: Oral 750 / 750 Output: Urine 0 / 0 Pleural Fluid 0 / 0 Other: # Voids 0 Date of Last Bowel Movement 02/23/18 02/26/18 # Incontinent Bowel Movements 1 Narrative: GENERAL: Well-nourished middle aged male patient, in NAD SKIN: Warm and dry. HEENT: Normocephalic. Pupils equal round and reactive. Nose without bleeding. Airway patent. CARDIOVASCULAR: Regular rate and rhythm without murmurs, gallops, or rubs. RESPIRATORY: Clear to auscultation. No wheezes, rales, or rhonchi. GASTROINTESTINAL: Abdomen soft, non-tender, nondistended. Bowel Sounds normoactive x4. MUSCULOSKELETAL: Extremities without clubbing, cyanosis, or edema. NEUROLOGICAL: Awake and alert. Moves all extremities, weak. Normal speech. Confused. - Urinary Catheter Management Indwelling Temp Sensing Catheter Cath placed during this visit: yes, but has since been removed by the nurse Reason for continuing: Decision to DC catheter Insertion date: 01/14/18 Insertion time: 22:00 Removal date: 01/21/18 Removal time: 18:00 Straight Cath placed during this visit: no Results - Labs CBC & Chem 7: 02/26/18 07:21 02/26/18 07:21 Laboratory Results - last 24 hr 02/22/18 02/25/18 02/25/18 06:01 09:04 09:04 WBC 9.8 RBC 3.71 L Hgb 10.8 L Hct 32.7 L MCV 88.0 MCH 29.2 MCHC 33.2 RDW 16.6 Plt Count 336 MPV 7.5 Sodium 137 Potassium 3.3 L Chloride 97 L Carbon Dioxide 29.6 Anion Gap 10 BUN 13 Creatinine 5.83 H Estimated GFR 10 L POC Glucose Random Glucose 85 Calcium 8.8 Phosphorus 2.9 Magnesium 2.3 Total Bilirubin 1.0 AST 14 L ALT 10 L Alkaline Phosphatase 190 H Total Protein 7.1 Albumin 3.2 L Albumin (PEP) 3.98 Albumin/Globulin Ratio 1.42 Qlvgj-7-Kojkrvahy 0.33 H Hurma-9-Otfvzpttj 0.76 Beta Globulins 0.68 Gamma Globulins 1.05 02/25/18 02/25/18 02/25/18 10:21 12:24 18:31 WBC RBC Hgb Hct MCV MCH MCHC RDW Plt Count MPV Sodium Potassium Chloride Carbon Dioxide Anion Gap BUN Creatinine Estimated GFR POC Glucose 179 H 178 H 101 Random Glucose Calcium Phosphorus Magnesium Total Bilirubin AST ALT Alkaline Phosphatase Total Protein Albumin Albumin (PEP) Albumin/Globulin Ratio Qzzdw-9-Mdzhchxnl Yzgbv-2-Lkavseuwu Beta Globulins Gamma Globulins 02/25/18 02/26/18 02/26/18 21:09 07:21 07:21 WBC 10.4 RBC 3.31 L Hgb 9.6 L Hct 29.4 L MCV 88.9 MCH 29.1 MCHC 32.7 RDW 16.6 Plt Count 323 MPV 7.3 Sodium 135 L Potassium 3.4 L Chloride 95 L Carbon Dioxide 30.3 Anion Gap 10 BUN 19 H Creatinine 7.45 H Estimated GFR 7 L POC Glucose 112 H Random Glucose 76 Calcium 8.5 Phosphorus 2.8 Magnesium 2.3 Total Bilirubin 1.0 AST 12 L ALT 8 L Alkaline Phosphatase 175 H Total Protein 6.7 Albumin 3.0 L Albumin (PEP) Albumin/Globulin Ratio Xtkae-5-Gqizuyqbd Odqzb-1-Eirqppovo Beta Globulins Gamma Globulins 02/26/18 08:21 WBC RBC Hgb Hct MCV MCH MCHC RDW Plt Count MPV Sodium Potassium Chloride Carbon Dioxide Anion Gap BUN Creatinine Estimated GFR POC Glucose 90 Random Glucose Calcium Phosphorus Magnesium Total Bilirubin AST ALT Alkaline Phosphatase Total Protein Albumin Albumin (PEP) Albumin/Globulin Ratio Fzeni-8-Iotbifmio Mebrb-8-Alkqiqztf Beta Globulins Gamma Globulins - Procedures Left IJ HD tunneled cath placed 02/08/18 by IR Assessment and Plan - Assessment (1) Acute renal failure Code(s): N17.9 - Acute kidney failure, unspecified Status: Acute (2) Anemia Code(s): D64.9 - Anemia, unspecified Status: Acute (3) Hypertension Code(s): I10 - Essential (primary) hypertension Status: Acute (4) Diabetes Code(s): E11.9 - Type 2 diabetes mellitus without complications Status: Acute - Plan 62-year-old white male who was admitted with cardiogenic shock and acute respiratory failure requiring CPR and epinephrine in the field, after being found down at home and being witnessed to possibly have undergone seizure-like activity. Intubation was attempted in the field but were unable to do so, patient was ultimately intubated in the hospital, started on pressors, placed in the ICU on mechanical ventilation. Found to have bilateral pneumothoraces with chest tubes placed, had developed some pneumoperitoneum which surgically deemed might have been a leak from his chest tubes as opposed to an acute surgical abdomen. Patient was started on antibiotics empirically for possible aspiration pneumonia but was ultimately discontinued off of them by infectious disease. Developed rhabdomyolysis with worsening acute renal failure which became sustained, with the patient now undergoing dialysis. Ultimately was discontinued off pressors, cardiology deferred heart cath due to renal failure. Patient had difficulty following commands after he was discontinued off of sedation and after extubation. Had an MRI done on 01/17 which showed no acute findings, only an older right parietal CVA. EEG was done which was unremarkable. End-stage renal disease -Cont MWF hemodialysis. -Nephrology following. Patient will likely need permanent dialysis. -will F/u with nephrology if the patient will be on permanent dialysis as they need to make note of that for case management to work on outpatient dialysis and placement. 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 He passed a swallow evaluation. Appear to be more alert. -Continue rehabilitation efforts with physical therapy/OT/speech -Per Neurology, patient can be out of bed. -No acute changes on neurological status Dysphagia: Related to encephalopathy. Probable anoxic injury from cardiogenic shock and respiratory failure. -No NG tube. Currently on Mechanical soft diet. Possible seizure -Continue Keppra 500mg PO BID. -EEG was negative Non-STEMI Hypertension -Troponins elevated to 0.52, 1.89 and 2.37. -Cardiology recommended conservative medical management. -Continue aspirin, carvedilol 6.25 twice daily, isosorbide dinitrate, atorvastatin 20 mg -Continue amlodipine 5 mg daily Bilateral pneumothoraces pneumomediastinum acute respiratory failure -chest tubes removed 01/28/2018 -Continue oxygen supplementation -Appreciate pulmonology following. Patient cannot tolerate BiPAP. -Pneumoperitoneum with right retroperitoneal gas/gas around the right kidney -Likely secondary to bilateral pneumothoraces with no surgical intervention warranted per general surgery Hepatitis secondary to shock Hepatic steatosis Cirrhosis -Possible alcohol abuse -Continue thiamine -Continue folic acid -Continue beta-blockers Diabetes mellitus, Type 2, uncontrolled, with nephropathy -Diabetic diet -Continue Aspart Sliding scale insulin. -Will continue Levemir 5 units QHS. Goal BG 140-180. hypothyroidism -continue levothyroxine Normocytic anemia -Status post PRBC transfusion. H&H stable around 8. Full code. Heparin SQ. Discharge Planning: Final determination by nephrology whether patient needs permanent dialysis or not. Case management is aware of the possible need for dialysis. No payor source (2) Anemia Qualifiers: Anemia type: due to chronic kidney disease
[2018-02-26] MEDS: Insulin NovoLOG Aspart Correctional Sugar Inj SQ SCH ×4 (11:06→20:58)
[2018-02-26] MEDS: levETIRAcetam 500 MG Tablet PO SCH ×2 (11:07→20:37)
[2018-02-26] MEDS: Chlorhexidine 0.12% Oral Kit 15 ML UDC OROPHARYNG SCH ×2 (11:07→20:00)
[2018-02-26] MEDS: Calcium Acetate 667 MG Capsule PO SCH ×3 (11:08→17:46)
[2018-02-26] MEDS: Folic Acid 1 MG Tablet PO SCH (11:08)
[2018-02-26] MEDS: Carvedilol 6.25 MG Tablet PO SCH ×2 (11:09→20:37)
[2018-02-26] MEDS: Artificial Tears Opth Drops 15 ML Bottle EACH EYE SCH ×2 (11:09→17:46)
[2018-02-26] MEDS: Senna/Docusate Sodium 8.6/50 MG Tablet PO SCH ×2 (11:10→20:37)
[2018-02-26] MEDS: amLODIPine 5 MG Tablet PO SCH (11:10)
[2018-02-26] MEDS: Dextrose 5%/NaCl 0.9% Inj 1,000 ML IV.CONT SCH (17:20)
--- NOTE | 2018-02-26 17:56 | P.PNNP ---
Subjective Interval history: Patient seen in the afternoon, oriented now times 2, not in distress. Physical Exam Vital signs: Vital Signs 02/25/18 21:06 02/26/18 00:32 02/26/18 04:30 Temperature 97.9 F 98.2 F Pulse Rate 81 88 85 Respiratory Rate 18 18 Blood Pressure 122/71 113/69 Pulse Oximetry 93 L 93 L 02/26/18 04:50 02/26/18 07:53 02/26/18 11:34 Temperature 97.9 F 97.9 F 97.9 F Pulse Rate 81 80 78 Respiratory Rate 18 18 18 Blood Pressure 129/68 121/70 150/97 H Pulse Oximetry 93 L 93 L 93 L 02/26/18 15:49 Temperature 99 F Pulse Rate 80 Respiratory Rate 18 Blood Pressure 108/65 Pulse Oximetry 92 L Intake & Output 02/25/18 02/26/18 02/26/18 18:59 06:59 18:59 Intake Total 750 / 750 240 / 240 Output Total 0 / 0 0 / 0 Balance 750 / 750 0 / 0 240 / 240 Intake: Oral 750 / 750 240 / 240 Output: Urine 0 / 0 Pleural Fluid 0 / 0 Other: # Voids 0 Date of Last Bowel Movement 02/23/18 02/26/18 # Incontinent Bowel Movements 1 Narrative: GENERAL: Well-nourished middle aged male patient, in NAD SKIN: Warm and dry. HEENT: Normocephalic. Pupils equal round and reactive. Nose without bleeding. Airway patent. CARDIOVASCULAR: Regular rate and rhythm without murmurs, gallops, or rubs. RESPIRATORY: Clear to auscultation. No wheezes, rales, or rhonchi. GASTROINTESTINAL: Abdomen soft, non-tender, nondistended. Bowel Sounds normoactive x4. MUSCULOSKELETAL: Extremities without clubbing, cyanosis, or edema. NEUROLOGICAL: Awake and alert. Moves all extremities, weak. Normal speech. Confused. - Urinary Catheter Management Indwelling Temp Sensing Catheter Cath placed during this visit: yes, but has since been removed by the nurse Reason for continuing: Decision to DC catheter Insertion date: 01/14/18 Insertion time: 22:00 Removal date: 01/21/18 Removal time: 18:00 Straight Cath placed during this visit: no Assessment and Plan - Assessment (1) Acute renal failure Code(s): N17.9 - Acute kidney failure, unspecified Status: Acute Plan: Remains dialysis dependent at this time. First HD 01/17/18 , RIJ PermCath placed 02/08/18 Continue HD MWF schedule for the present. Medications should be adjusted for the patient's estimated GFR if clinically indicated. Avoid agents with significant potential for nephrotoxicity possible including NSAIDs for analgesia, iodine contrast agents. Gadolinium is contraindicated if the GFR is below 30. Continue calcium acetate for hyperphosphatemia. Complements and ADORE normal. SPEP pending. Creatinine remains elevated. If not better, will need out patient HD arrangement. HD done on Sunday. No improvement in the renal function. HD will be again in AM. For placement purposes at out side dialysis facility. (2) Anemia Code(s): D64.9 - Anemia, unspecified Status: Acute Qualifiers: Anemia type: due to chronic kidney disease Plan: Epogen with dialysis (3) Hypertension Code(s): I10 - Essential (primary) hypertension Status: Acute Plan: Well controlled, will monitor. (4) Diabetes Code(s): E11.9 - Type 2 diabetes mellitus without complications Status: Acute Plan: Maintain blood sugars between 140 mg /dl to 180 mg/dl while hospitalized. Well controlled.
[2018-02-26] MEDS: Insulin Detemir Inj 1,000 UNIT/10 ML Vial SQ SCH (20:57)
[2018-02-27 02:20] LABS: Bilirubin,Urine Negative (Negative); Clarity,Urine Clear (Clear); Color,Urine Yellow (Yellw/Straw); Glucose,Urine (UA) Negative (Negative); Hyaline Casts,Urine 1 /lpf (0-3); Leukocyte Esterase,Urine Moderate (Negative); Nitrite,Urine Negative (Negative); Specific Gravity,Urine 1.009 (1.002-1.035)
[2018-02-27] MEDS: Pantoprazole Inj 40 MG Vial IV.PUSH SCH ×2 (03:03→14:22)
[2018-02-27] MEDS: Oral Hygiene Kit OROPHARYNG SCH ×4 (04:00→17:41)
[2018-02-27] MEDS: Levothyroxine 88 MCG Tablet PO SCH (05:44)
[2018-02-27] MEDS: hydrALAZINE 25 MG Tablet PO SCH ×3 (05:44→22:56)
[2018-02-27 06:54] LABS: Hematocrit 29.6 % (39.0-51.0); Hemoglobin 9.7 gm/dL (13.0-17.0); Mean Corpuscular HGB Conc 32.8 % (32.0-36.0); Mean Corpuscular Volume 88.4 fL (80.0-100.0); Mean Platelet Volume 7.2 fL (7.0-11.0); Platelet Count 318 th/mm3 (150-450); Red Blood Count 3.36 mil/mm3 (4.50-5.90); Red Cell Distribution Width 16.7 % (11.6-17.2); White Blood Count 9.1 th/mm3 (4.0-11.0)
[2018-02-27 07:31] LABS: Alanine Aminotransferase 8 U/L (12-78); Albumin 3.1 g/dL (3.4-5.0); Alkaline Phosphatase 171 U/L (45-117); Anion Gap 10 meq/L (5-15); Aspartate Aminotransferase 14 U/L (15-37); Blood Urea Nitrogen 29 mg/dL (7-18); Calcium 8.8 mg/dL (8.5-10.1); Chloride 96 meq/L (98-107); Glomerular Filtration Rate 6 mL/min (>89); Glucose,Random 72 mg/dL (74-106); Magnesium 2.5 mg/dL (1.5-2.5); Phosphorus 3.9 mg/dL (2.5-4.9); Potassium 3.4 meq/L (3.5-5.1); Sodium 137 meq/L (136-145); Total Protein 6.7 g/dL (6.4-8.2)
[2018-02-27] MEDS: Heparin 10,000 UNITS/10 ML Vial (for IV use) OTHER PRN (11:05)
[2018-02-27] MEDS: Calcium Acetate 667 MG Capsule PO SCH ×3 (12:35→17:33)
[2018-02-27] MEDS: Folic Acid 1 MG Tablet PO SCH (12:35)
[2018-02-27] MEDS: levETIRAcetam 500 MG Tablet PO SCH ×2 (12:36→21:55)
[2018-02-27] MEDS: Senna/Docusate Sodium 8.6/50 MG Tablet PO SCH ×2 (12:36→21:55)
--- NOTE | 2018-02-27 12:44 | P.PNIM ---
Subjective Interval history: Follow-up for suspected anoxic brain injury, hepatic encephalopathy, end-stage renal disease. Patient states he is doing well today. No new complaints. Physical Exam Vital signs: Last Vital Signs Temp 98.1 F 02/27/18 04:00 Pulse 79 02/27/18 04:03 Resp 18 02/27/18 04:00 BP 129/86 02/27/18 04:00 Pulse Ox 97 02/27/18 04:00 Intake & Output 02/25/18 02/26/18 02/27/18 02/28/18 06:59 06:59 06:59 06:59 Intake Total 750 / 750 840 / 840 Output Total 6401 / 6401 0 / 0 125 / 125 2500 / 2500 Balance -6401 / -6401 750 / 750 715 / 715 -2500 / -2500 Narrative: GENERAL: Well-nourished middle aged male patient, in NAD SKIN: Warm and dry. HEENT: Normocephalic. Pupils equal round and reactive. Nose without bleeding. Airway patent. CARDIOVASCULAR: Regular rate and rhythm without murmurs, gallops, or rubs. RESPIRATORY: Clear to auscultation. No wheezes, rales, or rhonchi. GASTROINTESTINAL: Abdomen soft, non-tender, nondistended. Bowel Sounds normoactive x4. MUSCULOSKELETAL: Extremities without clubbing, cyanosis, or edema. NEUROLOGICAL: Awake and alert. Moves all extremities, weak. Normal speech. Confused. Urinary Catheter Management Indwelling Temp Sensing Catheter: Cath placed during this visit: yes, but has since been removed by the nurse Insertion date: 01/14/18 Insertion time: 22:00 Removal date: 01/21/18 Removal time: 18:00 Straight: Cath placed during this visit: no Results Labs CBC & Chem 7: 02/27/18 06:12 02/27/18 06:12 Procedures Procedures: Left IJ HD tunneled cath placed 02/08/18 by IR Assessment and Plan (1) Acute renal failure: Code(s): N17.9 - Acute kidney failure, unspecified Status: Acute (2) Anemia: Code(s): D64.9 - Anemia, unspecified Status: Acute (3) Hypertension: Code(s): I10 - Essential (primary) hypertension Status: Acute (4) Diabetes: Code(s): E11.9 - Type 2 diabetes mellitus without complications Status: Acute Plan [facility] [address] [place] [address] [id number] [place] [address] Progress Note Signed Patient: Oral Canseco#: [id number] : 7Acct: [id number] Age/Sex: 62 / MADM Date: 01/14/18 Loc: [id number] Date: 02/26/[address]: Omar Edwards MD cc: Subjective Interval history: Follow-up for suspected anoxic brain injury, hepatic encephalopathy, end-stage renal disease. Patient has no specific medical complaints today. He is asking when he can see his . Denies any headache, lightheadedness, chest pain, shortness of breath, or abdominal complaints. Physical Exam Vital signs: Vital Signs 02/25/18 16:07 02/25/18 21:06 02/26/18 00:32 Temperature 97.9 F 98.2 F Pulse Rate 81 81 88 Respiratory Rate 18 18 Blood Pressure 122/71 113/69 Pulse Oximetry 93 L 93 L 02/26/18 04:30 02/26/18 04:50 02/26/18 07:53 Temperature 97.9 F 97.9 F Pulse Rate 85 81 80 Respiratory Rate 18 18 Blood Pressure 129/68 121/70 Pulse Oximetry 93 L 93 L Intake & Output 02/25/18 02/26/18 02/26/18 18:59 06:59 18:59 Intake Total 750 / 750 Output Total 0 / 0 0 / 0 Balance 750 / 750 0 / 0 Intake: Oral 750 / 750 Output: Urine 0 / 0 Pleural Fluid 0 / 0 Other: # Voids 0 Date of Last Bowel Movement 02/23/18 02/26/18 # Incontinent Bowel Movements 1 Narrative: GENERAL: Well-nourished middle aged male patient, in NAD SKIN: Warm and dry. HEENT: Normocephalic. Pupils equal round and reactive. Nose without bleeding. Airway patent. CARDIOVASCULAR: Regular rate and rhythm without murmurs, gallops, or rubs. RESPIRATORY: Clear to auscultation. No wheezes, rales, or rhonchi. GASTROINTESTINAL: Abdomen soft, non-tender, nondistended. Bowel Sounds normoactive x4. MUSCULOSKELETAL: Extremities without clubbing, cyanosis, or edema. NEUROLOGICAL: Awake and alert. Moves all extremities, weak. Normal speech. Confused. - Urinary Catheter Management Indwelling Temp Sensing Catheter Cath placed during this visit: yes, but has since been removed by the nurse Reason for continuing: Decision to DC catheter Insertion date: 01/14/18 Insertion time: 22:00 Removal date: 01/21/18 Removal time: 18:00 Straight Cath placed during this visit: no Results - Labs CBC & Chem 7: 02/26/18 07:21 document embedded image 02/26/18 07:21 document embedded image Laboratory Results - last 24 hr 02/22/18 02/25/18 02/25/18 06:01 09:04 09:04 WBC 9.8 RBC 3.71 L Hgb 10.8 L Hct 32.7 L MCV 88.0 MCH 29.2 MCHC 33.2 RDW 16.6 Plt Count 336 MPV 7.5 Sodium 137 Potassium 3.3 L Chloride 97 L Carbon Dioxide 29.6 Anion Gap 10 BUN 13 Creatinine 5.83 H Estimated GFR 10 L POC Glucose Random Glucose 85 Calcium 8.8 Phosphorus 2.9 Magnesium 2.3 Total Bilirubin 1.0 AST 14 L ALT 10 L Alkaline Phosphatase 190 H Total Protein 7.1 Albumin 3.2 L Albumin (PEP) 3.98 Albumin/Globulin Ratio 1.42 Oxixd-3-Zmafndlos 0.33 H Meiyc-0-Lzzyxqbne 0.76 Beta Globulins 0.68 Gamma Globulins 1.05 02/25/18 02/25/18 02/25/18 10:21 12:24 18:31 WBC RBC Hgb Hct MCV MCH MCHC RDW Plt Count MPV Sodium Potassium Chloride Carbon Dioxide Anion Gap BUN Creatinine Estimated GFR POC Glucose 179 H 178 H 101 Random Glucose Calcium Phosphorus Magnesium Total Bilirubin AST ALT Alkaline Phosphatase Total Protein Albumin Albumin (PEP) Albumin/Globulin Ratio Rczkd-0-Tdzmjugpo Xmlfq-6-Neweyvbag Beta Globulins Gamma Globulins 02/25/18 02/26/18 02/26/18 21:09 07:21 07:21 WBC 10.4 RBC 3.31 L Hgb 9.6 L Hct 29.4 L MCV 88.9 MCH 29.1 MCHC 32.7 RDW 16.6 Plt Count 323 MPV 7.3 Sodium 135 L Potassium 3.4 L Chloride 95 L Carbon Dioxide 30.3 Anion Gap 10 BUN 19 H Creatinine 7.45 H Estimated GFR 7 L POC Glucose 112 H Random Glucose 76 Calcium 8.5 Phosphorus 2.8 Magnesium 2.3 Total Bilirubin 1.0 AST 12 L ALT 8 L Alkaline Phosphatase 175 H Total Protein 6.7 Albumin 3.0 L Albumin (PEP) Albumin/Globulin Ratio Kmwqy-1-Ijsshunjc Dsefi-5-Mpqrmoyhz Beta Globulins Gamma Globulins 02/26/18 08:21 WBC RBC Hgb Hct MCV MCH MCHC RDW Plt Count MPV Sodium Potassium Chloride Carbon Dioxide Anion Gap BUN Creatinine Estimated GFR POC Glucose 90 Random Glucose Calcium Phosphorus Magnesium Total Bilirubin AST ALT Alkaline Phosphatase Total Protein Albumin Albumin (PEP) Albumin/Globulin Ratio Bxjzs-0-Wisqkfwbd Qpxdp-6-Dmoxcnklh Beta Globulins Gamma Globulins - Procedures Left IJ HD tunneled cath placed 02/08/18 by IR Assessment and Plan - Assessment (1) Acute renal failure Code(s): N17.9 - Acute kidney failure, unspecified Status: Acute (2) Anemia Code(s): D64.9 - Anemia, unspecified Status: Acute (3) Hypertension Code(s): I10 - Essential (primary) hypertension Status: Acute (4) Diabetes Code(s): E11.9 - Type 2 diabetes mellitus without complications Status: Acute - Plan 62-year-old white male who was admitted with cardiogenic shock and acute respiratory failure requiring CPR and epinephrine in the field, after being found down at home and being witnessed to possibly have undergone seizure-like activity. Intubation was attempted in the field but were unable to do so, patient was ultimately intubated in the hospital, started on pressors, placed in the ICU on mechanical ventilation. Found to have bilateral pneumothoraces with chest tubes placed, had developed some pneumoperitoneum which surgically deemed might have been a leak from his chest tubes as opposed to an acute surgical abdomen. Patient was started on antibiotics empirically for possible aspiration pneumonia but was ultimately discontinued off of them by infectious disease. Developed rhabdomyolysis with worsening acute renal failure which became sustained, with the patient now undergoing dialysis. Ultimately was discontinued off pressors, cardiology deferred heart cath due to renal failure. Patient had difficulty following commands after he was discontinued off of sedation and after extubation. Had an MRI done on 01/17 which showed no acute findings, only an older right parietal CVA. EEG was done which was unremarkable. End-stage renal disease -Cont MWF hemodialysis. -Nephrology following. Patient will likely need permanent dialysis. -will F/u with nephrology if the patient will be on permanent dialysis as they need to make note of that for case management to work on outpatient dialysis and placement. 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 He passed a swallow evaluation. Appear to be more alert. -Continue rehabilitation efforts with physical therapy/OT/speech -Per Neurology, patient can be out of bed. -No acute changes on neurological status Dysphagia: Related to encephalopathy. Probable anoxic injury from cardiogenic shock and respiratory failure. -No NG tube. Currently on Mechanical soft diet. Possible seizure -Continue Keppra 500mg PO BID. -EEG was negative Non-STEMI Hypertension -Troponins elevated to 0.52, 1.89 and 2.37. -Cardiology recommended conservative medical management. -Continue aspirin, carvedilol 6.25 twice daily, isosorbide dinitrate, atorvastatin 20 mg -Continue amlodipine 5 mg daily Bilateral pneumothoraces pneumomediastinum acute respiratory failure -chest tubes removed 01/28/2018 -Continue oxygen supplementation -Appreciate pulmonology following. Patient cannot tolerate BiPAP. -Pneumoperitoneum with right retroperitoneal gas/gas around the right kidney -Likely secondary to bilateral pneumothoraces with no surgical intervention warranted per general surgery Hepatitis secondary to shock Hepatic steatosis Cirrhosis -Possible alcohol abuse -Continue thiamine -Continue folic acid -Continue beta-blockers Diabetes mellitus, Type 2, uncontrolled, with nephropathy -Diabetic diet -Continue Aspart Sliding scale insulin. -Will continue Levemir 5 units QHS. Goal BG 140-180. hypothyroidism -continue levothyroxine Normocytic anemia -Status post PRBC transfusion. H&H stable around 8. Full code. Heparin SQ. 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 Planning: Awaiting placement Progress Note: Quality VTE Deep Vein Thrombosis/Pulmonary Embolism Present on Admission: No _ (1) Diabetes Qualifiers: Chronic kidney disease stage: Diabetes mellitus complication detail: Diabetes mellitus complication status: Diabetes mellitus chcf insulin use : Diabetes mellitus macular edema: Diabetes mellitus type: Diabetic retinopathy severity: Laterality: Proliferative retinopathy type: (2) Acute renal failure Qualifiers: Acute renal failure type: (3) Anemia Qualifiers: Anemia type: due to chronic kidney disease Bone marrow failure anemia type: Chronic kidney disease stage: Folate deficiency anemia type: Hemolytic anemia type: Iron deficiency anemia type: Other causes of anemia: Vitamin B12 deficiency anemia type: (4) Hypertension Qualifiers: Hypertension type:
[2018-02-27] MEDS: Carvedilol 6.25 MG Tablet PO SCH ×2 (12:45→21:56)
[2018-02-27] MEDS: amLODIPine 5 MG Tablet PO SCH (12:45)
[2018-02-27] MEDS: Dextrose 5%/NaCl 0.9% Inj 1,000 ML IV.CONT SCH (12:46)
[2018-02-27] MEDS: Chlorhexidine 0.12% Oral Kit 15 ML UDC OROPHARYNG SCH ×2 (12:46→22:06)
[2018-02-27] MEDS: Artificial Tears Opth Drops 15 ML Bottle EACH EYE SCH ×3 (12:46→17:38)
[2018-02-27] MEDS: Insulin NovoLOG Aspart Correctional Sugar Inj SQ SCH ×4 (12:46→22:07)
--- NOTE | 2018-02-27 20:51 | P.PNNP ---
Subjective Interval history: Patient seen in AM during HD, alert, not fully oriented , not in distress. Physical Exam Vital signs: Vital Signs 02/27/18 00:00 02/27/18 04:00 02/27/18 04:03 Temperature 98.6 F 98.1 F Pulse Rate 84 76 79 Respiratory Rate 18 18 Blood Pressure 116/68 129/86 Pulse Oximetry 97 97 02/27/18 08:00 02/27/18 14:50 Temperature 98.8 F Pulse Rate 85 104 H Respiratory Rate 20 Blood Pressure 109/70 Pulse Oximetry 94 L Intake & Output 02/27/18 02/27/18 02/28/18 06:59 18:59 06:59 Output Total 125 / 125 2500 / 2500 Balance -125 / -125 -2500 / -2500 Output: Hemodialysis Amount 2500 / 2500 Urine Amount (Catheter) 125 / 125 Straight 125 / 125 Other: Date of Last Bowel Movement 02/27/18 02/27/18 # Bowel Movements 1 1 Narrative: GENERAL: Well-nourished middle aged male patient, in NAD SKIN: Warm and dry. HEENT: Normocephalic. Pupils equal round and reactive. Nose without bleeding. Airway patent. CARDIOVASCULAR: Regular rate and rhythm without murmurs, gallops, or rubs. RESPIRATORY: Clear to auscultation. No wheezes, rales, or rhonchi. GASTROINTESTINAL: Abdomen soft, non-tender, nondistended. Bowel Sounds normoactive x4. MUSCULOSKELETAL: Extremities without clubbing, cyanosis, or edema. NEUROLOGICAL: Awake and alert. Moves all extremities, weak. Normal speech. Confused. - Urinary Catheter Management Indwelling Temp Sensing Catheter Cath placed during this visit: yes, but has since been removed by the nurse Reason for continuing: Decision to DC catheter Insertion date: 01/14/18 Insertion time: 22:00 Removal date: 01/21/18 Removal time: 18:00 Straight Cath placed during this visit: no Assessment and Plan - Assessment (1) Acute renal failure Code(s): N17.9 - Acute kidney failure, unspecified Status: Acute Plan: Remains dialysis dependent at this time. First HD 01/17/18 , [facility] PermCath placed 02/08/18 Continue HD MWF schedule for the present. Medications should be adjusted for the patient's estimated GFR if clinically indicated. Avoid agents with significant potential for nephrotoxicity possible including NSAIDs for analgesia, iodine contrast agents. Gadolinium is contraindicated if the GFR is below 30. Continue calcium acetate for hyperphosphatemia. Complements and ADORE normal. SPEP pending. Creatinine remains elevated. If not better, will need out patient HD arrangement. No improvement in the renal function. For placement purposes at out side dialysis facility. HD now, remove fluid as tolerated. (2) Anemia Code(s): D64.9 - Anemia, unspecified Status: Acute Qualifiers: Anemia type: due to chronic kidney disease Plan: Epogen with dialysis (3) Hypertension Code(s): I10 - Essential (primary) hypertension Status: Acute Plan: Well controlled, will monitor. (4) Diabetes Code(s): E11.9 - Type 2 diabetes mellitus without complications Status: Acute Plan: Maintain blood sugars between 140 mg /dl to 180 mg/dl while hospitalized. Well controlled.
[2018-02-27] MEDS: Insulin Detemir Inj 1,000 UNIT/10 ML Vial SQ SCH (22:06)
[2018-02-28] MEDS: Oral Hygiene Kit OROPHARYNG SCH ×4 (00:46→15:50)
[2018-02-28] MEDS: Artificial Tears Opth Drops 15 ML Bottle EACH EYE SCH ×3 (00:47→15:50)
[2018-02-28] MEDS: Pantoprazole Inj 40 MG Vial IV.PUSH SCH (02:03)
[2018-02-28] MEDS: Morphine Sulfate Inj 2 MG/ML Vial IV.PUSH PRN ×3 (02:03→22:04)
[2018-02-28] MEDS: Dextrose 5%/NaCl 0.9% Inj 1,000 ML IV.CONT SCH ×2 (03:06→17:16)
[2018-02-28 05:08] LABS: Hematocrit 30.9 % (39.0-51.0); Hemoglobin 10.3 gm/dL (13.0-17.0); Mean Corpuscular HGB Conc 33.4 % (32.0-36.0); Mean Corpuscular Hemoglobin 29.3 pg (27.0-34.0); Mean Corpuscular Volume 87.7 fL (80.0-100.0); Mean Platelet Volume 7.4 fL (7.0-11.0); Platelet Count 312 th/mm3 (150-450); Red Blood Count 3.53 mil/mm3 (4.50-5.90); Red Cell Distribution Width 16.5 % (11.6-17.2); White Blood Count 8.3 th/mm3 (4.0-11.0)
[2018-02-28 05:43] LABS: Alanine Aminotransferase 11 U/L (12-78); Albumin 3.4 g/dL (3.4-5.0); Alkaline Phosphatase 182 U/L (45-117); Anion Gap 10 meq/L (5-15); Aspartate Aminotransferase 14 U/L (15-37); Blood Urea Nitrogen 18 mg/dL (7-18); Calcium 8.7 mg/dL (8.5-10.1); Carbon Dioxide 30.1 meq/L (21.0-32.0); Chloride 96 meq/L (98-107); Glomerular Filtration Rate 9 mL/min (>89); Glucose,Random 86 mg/dL (74-106); Magnesium 2.3 mg/dL (1.5-2.5); Potassium 3.1 meq/L (3.5-5.1); Sodium 136 meq/L (136-145); Total Protein 6.9 g/dL (6.4-8.2)
[2018-02-28] MEDS: hydrALAZINE 25 MG Tablet PO SCH ×2 (06:26→13:09)
[2018-02-28] MEDS: Levothyroxine 88 MCG Tablet PO SCH (06:46)
[2018-02-28] MEDS: Chlorhexidine 0.12% Oral Kit 15 ML UDC OROPHARYNG SCH ×2 (07:48→20:24)
[2018-02-28] MEDS: Insulin NovoLOG Aspart Correctional Sugar Inj SQ SCH ×4 (07:48→21:49)
[2018-02-28] MEDS: levETIRAcetam 500 MG Tablet PO SCH ×2 (08:22→20:21)
[2018-02-28] MEDS: Calcium Acetate 667 MG Capsule PO SCH ×3 (08:22→17:16)
[2018-02-28] MEDS: amLODIPine 5 MG Tablet PO SCH (08:22)
[2018-02-28] MEDS: Carvedilol 6.25 MG Tablet PO SCH ×2 (08:22→20:23)
[2018-02-28] MEDS: Senna/Docusate Sodium 8.6/50 MG Tablet PO SCH ×2 (08:22→20:21)
[2018-02-28] MEDS: Folic Acid 1 MG Tablet PO SCH (08:22)
--- NOTE | 2018-02-28 11:56 | P.PNIM ---
Subjective Interval history: Patient is currently not in any acute distress. He is lying down in bed with his sister at bedside. Patient is appropriate when asked questions and is following commands. Physical Exam Vital signs: Vital Signs 02/27/18 14:50 02/27/18 19:51 02/27/18 20:55 Temperature 98.8 F 98 F Pulse Rate 104 H 96 H 93 H Respiratory Rate 20 18 Blood Pressure 109/70 115/66 Pulse Oximetry 94 L 96 02/27/18 23:42 02/28/18 00:00 02/28/18 04:50 Temperature 97.6 F 98.1 F Pulse Rate 88 88 87 Respiratory Rate 18 18 Blood Pressure 122/75 117/68 Pulse Oximetry 97 93 L 02/28/18 07:00 02/28/18 07:25 02/28/18 08:00 Temperature 97.9 F Pulse Rate 82 85 Respiratory Rate 12 20 Blood Pressure 104/65 Pulse Oximetry 95 02/28/18 09:19 02/28/18 10:33 Temperature Pulse Rate Respiratory Rate 12 Blood Pressure Pulse Oximetry 95 Intake & Output 02/27/18 02/28/18 02/28/18 18:59 06:59 18:59 Output Total 2500 / 2500 Balance -2500 / -2500 Weight 94.9 kg Output: Hemodialysis Amount 2500 / 2500 Other: # Voids 1 Date of Last Bowel Movement 02/27/18 02/28/18 # Bowel Movements 1 1 Narrative: General patient in no acute distress, responding to my questions and commands appropriately. HEENT extraocular movements are intact, clear oropharyngeal mucosa, no JVD Cardiovascular S1-S2 audible, RRR, no murmurs rubs or gallops, right side of the chest with TDC in place. Respiratory clear to auscultation bilaterally Abdomen soft, nontender, nondistended, normal bowel sounds Extremities no edema 2+ distal pulses in bilateral upper and lower extremities Neuro patient can move all 4 extremities, sensation is intact bilaterally. - Urinary Catheter Management Indwelling Temp Sensing Catheter Cath placed during this visit: yes, but has since been removed by the nurse Reason for continuing: Decision to DC catheter Insertion date: 01/14/18 Insertion time: 22:00 Removal date: 01/21/18 Removal time: 18:00 Straight Cath placed during this visit: no Results - Labs CBC & Chem 7: 02/28/18 04:47 02/28/18 04:47 Laboratory Results - last 24 hr 02/22/18 02/27/18 02/27/18 06:01 17:32 21:53 WBC RBC Hgb Hct MCV MCH MCHC RDW Plt Count MPV Sodium Potassium Chloride Carbon Dioxide Anion Gap BUN Creatinine Estimated GFR POC Glucose 108 110 Random Glucose Calcium Phosphorus Magnesium Total Bilirubin AST ALT Alkaline Phosphatase Total Protein Albumin PEP Pathologist Comment 02/28/18 02/28/18 02/28/18 04:47 04:47 07:31 WBC 8.3 RBC 3.53 L Hgb 10.3 L Hct 30.9 L MCV 87.7 MCH 29.3 MCHC 33.4 RDW 16.5 Plt Count 312 MPV 7.4 Sodium 136 Potassium 3.1 L Chloride 96 L Carbon Dioxide 30.1 Anion Gap 10 BUN 18 Creatinine 6.36 H Estimated GFR 9 L POC Glucose 89 Random Glucose 86 Calcium 8.7 Phosphorus 3.0 Magnesium 2.3 Total Bilirubin 1.0 AST 14 L ALT 11 L Alkaline Phosphatase 182 H Total Protein 6.9 Albumin 3.4 PEP Pathologist Comment 02/28/18 11:34 WBC RBC Hgb Hct MCV MCH MCHC RDW Plt Count MPV Sodium Potassium Chloride Carbon Dioxide Anion Gap BUN Creatinine Estimated GFR POC Glucose 106 Random Glucose Calcium Phosphorus Magnesium Total Bilirubin AST ALT Alkaline Phosphatase Total Protein Albumin PEP Pathologist Comment - Procedures Left IJ HD tunneled cath placed 02/08/18 by IR Assessment and Plan - Assessment (1) Acute renal failure Code(s): N17.9 - Acute kidney failure, unspecified Status: Acute (2) Anemia Code(s): D64.9 - Anemia, unspecified Status: Acute (3) Hypertension Code(s): I10 - Essential (primary) hypertension Status: Acute (4) Diabetes Code(s): E11.9 - Type 2 diabetes mellitus without complications Status: Acute - Plan 62-year-old white male who was admitted with cardiogenic shock and acute respiratory failure requiring CPR and epinephrine in the field, after being found down at home and being witnessed to possibly have undergone seizure-like activity. Intubation was attempted in the field but were unable to do so, patient was ultimately intubated in the hospital, started on pressors, placed in the ICU on mechanical ventilation. Found to have bilateral pneumothoraces with chest tubes placed, had developed some pneumoperitoneum which surgically deemed might have been a leak from his chest tubes as opposed to an acute surgical abdomen. Patient was started on antibiotics empirically for possible aspiration pneumonia but was ultimately discontinued off of them by infectious disease. Developed rhabdomyolysis with worsening acute renal failure which became sustained, with the patient now undergoing dialysis. Ultimately was discontinued off pressors, cardiology deferred heart cath due to renal failure. Patient had difficulty following commands after he was discontinued off of sedation and after extubation. Had an MRI done on 01/17 which showed no acute findings, only an older right parietal CVA. EEG was done which was unremarkable. End-stage renal disease -Cont MWF hemodialysis. HD scheduled for tomorrow. -Nephrology following. Patient will likely need permanent dialysis. -will F/u with nephrology if the patient will be on permanent dialysis as they need to make note of that for case management to work on outpatient dialysis and placement. 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 Patient on PO diet after passing swallow eval. Will change IV protonix to PO. -Continue rehabilitation efforts with physical therapy/OT/speech, I believe the patient will benefit from daily physical therapy. -Per Neurology, patient can be out of bed. -No acute changes on neurological status Dysphagia: Related to encephalopathy. Probable anoxic injury from cardiogenic shock and respiratory failure. -No NG tube. Currently on Mechanical soft diet. Possible seizure -Continue Keppra 500mg PO BID. -EEG was negative Non-STEMI Hypertension -Troponins elevated to 0.52, 1.89 and 2.37. -Cardiology recommended conservative medical management. -Continue aspirin, carvedilol 6.25 twice daily, isosorbide dinitrate, atorvastatin 20 mg -Continue amlodipine 5 mg daily Bilateral pneumothoraces pneumomediastinum acute respiratory failure -chest tubes removed 01/28/2018 -Continue oxygen supplementation -Appreciate pulmonology following. Patient cannot tolerate BiPAP. -Pneumoperitoneum with right retroperitoneal gas/gas around the right kidney -Likely secondary to bilateral pneumothoraces with no surgical intervention warranted per general surgery Hepatitis secondary to shock Hepatic steatosis Cirrhosis -Possible alcohol abuse -Continue thiamine -Continue folic acid -Continue beta-blockers Diabetes mellitus, Type 2, uncontrolled, with nephropathy -Diabetic diet -Continue Aspart Sliding scale insulin. -Will continue Levemir 5 units QHS. Goal BG 140-180. Blood sugars are under control on this current regimen. hypothyroidism -continue levothyroxine Normocytic anemia -Status post PRBC transfusion. H&H stable around 8. Full code. Heparin SQ. 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
--- NOTE | 2018-02-28 17:52 | P.PN ---
Subjective Interval history: He is taking his diet well. No cough or wheezing. Will go to rehab. Physical Exam Vital signs: Vital Signs 02/27/18 19:51 02/27/18 20:55 02/27/18 23:42 Temperature 98 F Pulse Rate 96 H 93 H 88 Respiratory Rate 18 Blood Pressure 115/66 Pulse Oximetry 96 02/28/18 00:00 02/28/18 04:50 02/28/18 07:00 Temperature 97.6 F 98.1 F Pulse Rate 88 87 Respiratory Rate 18 18 12 Blood Pressure 122/75 117/68 Pulse Oximetry 97 93 L 02/28/18 07:25 02/28/18 08:00 02/28/18 09:19 Temperature 97.9 F Pulse Rate 82 85 Respiratory Rate 20 12 Blood Pressure 104/65 Pulse Oximetry 95 02/28/18 10:33 02/28/18 13:13 02/28/18 13:46 Temperature 98.2 F Pulse Rate 81 80 Respiratory Rate 20 Blood Pressure 91/52 L Pulse Oximetry 95 93 L 02/28/18 15:15 02/28/18 17:01 Temperature 97.8 F Pulse Rate 73 82 Respiratory Rate 20 Blood Pressure 104/62 Pulse Oximetry 93 L Intake & Output 02/27/18 02/28/18 02/28/18 18:59 06:59 18:59 Intake Total 480 / 480 Output Total 2500 / 2500 Balance -2500 / -2500 480 / 480 Weight 94.9 kg Intake: Oral 480 / 480 Output: Hemodialysis Amount 2500 / 2500 Other: # Voids 1 Date of Last Bowel Movement 02/27/18 02/28/18 # Bowel Movements 1 1 Narrative: General :Mid aged W/M patient in no acute distress, HEENT extraocular movements are intact, clear oropharyngeal mucosa, no JVD Cardiovascular S1-S2 audible, RRR, no murmurs rubs or gallops. Respiratory clear to auscultation but decreased breath sounds. Abdomen soft, nontender, nondistended, normal bowel sounds Extremities no edema or lesions. Neuro patient can move all 4 extremities.Weak in legs. - Urinary Catheter Management Indwelling Temp Sensing Catheter Cath placed during this visit: yes, but has since been removed by the nurse Reason for continuing: Decision to DC catheter Insertion date: 01/14/18 Insertion time: 22:00 Removal date: 01/21/18 Removal time: 18:00 Straight Cath placed during this visit: no Results - Labs CBC & Chem 7: 02/28/18 04:47 02/28/18 04:47 Laboratory Results - last 24 hr 02/27/18 02/27/18 02/28/18 17:32 21:53 04:47 WBC 8.3 RBC 3.53 L Hgb 10.3 L Hct 30.9 L MCV 87.7 MCH 29.3 MCHC 33.4 RDW 16.5 Plt Count 312 MPV 7.4 Sodium Potassium Chloride Carbon Dioxide Anion Gap BUN Creatinine Estimated GFR POC Glucose 108 110 Random Glucose Calcium Phosphorus Magnesium Total Bilirubin AST ALT Alkaline Phosphatase Total Protein Albumin 02/28/18 02/28/18 02/28/18 04:47 07:31 11:34 WBC RBC Hgb Hct MCV MCH MCHC RDW Plt Count MPV Sodium 136 Potassium 3.1 L Chloride 96 L Carbon Dioxide 30.1 Anion Gap 10 BUN 18 Creatinine 6.36 H Estimated GFR 9 L POC Glucose 89 106 Random Glucose 86 Calcium 8.7 Phosphorus 3.0 Magnesium 2.3 Total Bilirubin 1.0 AST 14 L ALT 11 L Alkaline Phosphatase 182 H Total Protein 6.9 Albumin 3.4 02/28/18 16:08 WBC RBC Hgb Hct MCV MCH MCHC RDW Plt Count MPV Sodium Potassium Chloride Carbon Dioxide Anion Gap BUN Creatinine Estimated GFR POC Glucose 114 H Random Glucose Calcium Phosphorus Magnesium Total Bilirubin AST ALT Alkaline Phosphatase Total Protein Albumin - Procedures Left IJ HD tunneled cath placed 02/08/18 by IR Assessment and Plan - Assessment (1) Encephalopathy acute Code(s): G93.40 - Encephalopathy, unspecified Status: Acute (2) Overdose Code(s): T50.901A - Poisoning by unspecified drugs, medicaments and biological substances, accidental (unintentional), initial encounter Status: Acute (3) Suicidal ideation Code(s): R45.851 - Suicidal ideations Status: Acute (4) Delirium tremens Code(s): F10.231 - Alcohol dependence with withdrawal delirium Status: Acute (5) Bilateral pneumothoraces Code(s): J93.9 - Pneumothorax, unspecified Status: Acute (6) Endotracheally intubated Code(s): Z97.8 - Presence of other specified devices Status: Acute (7) Elevated troponin Code(s): R74.8 - Abnormal levels of other serum enzymes Status: Acute (8) Acute renal failure Code(s): N17.9 - Acute kidney failure, unspecified Status: Acute (9) Alcohol abuse Code(s): F10.10 - Alcohol abuse, uncomplicated Status: Acute - Plan - Plan 1. Left Basal Atelectasis 2. s/p pneumothoraces on arrival, status post bilateral small bore chest tube placement on 01/15/2018. removed 01/28 3. Acute kidney injury.On Dialysis 4. Leukocytosis. 5. Anemia. 6. NSTEMI resolved 7. obesity. 8. Hypertension. 9. Diabetes mellitus. 10. s/p seizures. Plan 1. Cont Albuterol Inhaler , 2 puffs TID PRN 2. PT Evaluation 3. IS at bedside Q3H 4. Up as tolerated 5. Dialysis as planned 6. Chest X ray in am 7. Will get sleep test as OP (2) Overdose Qualifiers: Encounter type: initial encounter Injury intent: undetermined intent Qualified Code(s): T50.904A - Poisoning by unspecified drugs, medicaments and biological substances, undetermined, initial encounter
--- NOTE | 2018-02-28 22:01 | P.PNNP ---
Subjective Interval history: Patient seen in the late afternoon, not in distress. Physical Exam Vital signs: Vital Signs 02/27/18 23:42 02/28/18 00:00 02/28/18 04:50 Temperature 97.6 F 98.1 F Pulse Rate 88 88 87 Respiratory Rate 18 18 Blood Pressure 122/75 117/68 Pulse Oximetry 97 93 L 02/28/18 07:00 02/28/18 07:25 02/28/18 08:00 Temperature 97.9 F Pulse Rate 82 85 Respiratory Rate 12 20 Blood Pressure 104/65 Pulse Oximetry 95 02/28/18 09:19 02/28/18 10:33 02/28/18 13:13 Temperature 98.2 F Pulse Rate 81 Respiratory Rate 12 20 Blood Pressure 91/52 L Pulse Oximetry 95 93 L 02/28/18 13:46 02/28/18 15:15 02/28/18 17:01 Temperature 97.8 F Pulse Rate 80 73 82 Respiratory Rate 20 Blood Pressure 104/62 Pulse Oximetry 93 L 02/28/18 20:00 02/28/18 20:45 Temperature 97.9 F Pulse Rate 80 Respiratory Rate 20 Blood Pressure 137/84 Pulse Oximetry 93 L 95 Intake & Output 02/28/18 02/28/18 03/01/18 06:59 18:59 06:59 Intake Total 480 / 480 Balance 480 / 480 Weight 94.9 kg Intake: Oral 480 / 480 Other: # Voids 1 Date of Last Bowel Movement 02/28/18 # Bowel Movements 1 Narrative: General :Mid aged W/M patient in no acute distress, HEENT extraocular movements are intact, clear oropharyngeal mucosa, no JVD Cardiovascular S1-S2 audible, RRR, no murmurs rubs or gallops. Respiratory clear to auscultation but decreased breath sounds. Abdomen soft, nontender, nondistended, normal bowel sounds Extremities no edema or lesions. Neuro patient can move all 4 extremities.Weak in legs. - Urinary Catheter Management Indwelling Temp Sensing Catheter Cath placed during this visit: yes, but has since been removed by the nurse Reason for continuing: Decision to DC catheter Insertion date: 01/14/18 Insertion time: 22:00 Removal date: 01/21/18 Removal time: 18:00 Straight Cath placed during this visit: no Assessment and Plan - Assessment (1) Acute renal failure Code(s): N17.9 - Acute kidney failure, unspecified Status: Acute Plan: Remains dialysis dependent at this time. First HD 01/17/18 , RIWillam RiveraCath placed 02/08/18 Continue HD MWF schedule for the present. Medications should be adjusted for the patient's estimated GFR if clinically indicated. Avoid agents with significant potential for nephrotoxicity possible including NSAIDs for analgesia, iodine contrast agents. Gadolinium is contraindicated if the GFR is below 30. Continue calcium acetate for hyperphosphatemia. Complements and ADORE normal. SPEP pending. Creatinine remains elevated. If not better, will need out patient HD arrangement. No improvement in the renal function. For placement purposes at out side dialysis facility. HD done yesterday. If no improvement in renal function, will consider renal Biopsy next week. (2) Anemia Code(s): D64.9 - Anemia, unspecified Status: Acute Qualifiers: Anemia type: due to chronic kidney disease Plan: Epogen with dialysis (3) Hypertension Code(s): I10 - Essential (primary) hypertension Status: Acute Plan: Well controlled, will monitor. (4) Diabetes Code(s): E11.9 - Type 2 diabetes mellitus without complications Status: Acute Plan: Maintain blood sugars between 140 mg /dl to 180 mg/dl while hospitalized. Well controlled.
[2018-02-28] MEDS: Insulin Detemir Inj 1,000 UNIT/10 ML Vial SQ SCH (22:04)
[2018-03-01] MEDS: hydrALAZINE 25 MG Tablet PO SCH ×4 (02:12→23:22)
[2018-03-01] MEDS: Oral Hygiene Kit OROPHARYNG SCH ×4 (02:13→15:13)
[2018-03-01] MEDS: Artificial Tears Opth Drops 15 ML Bottle EACH EYE SCH ×3 (02:13→15:14)
[2018-03-01] MEDS: Morphine Sulfate Inj 2 MG/ML Vial IV.PUSH PRN ×2 (04:34→08:08)
--- NOTE | 2018-03-01 04:58 | XR ---
EXAM DATE: 03/01/2018 4:50 AM EST AGE/SEX: 62 years / Male INDICATIONS: Atelectasis. CLINICAL DATA: This is the patient's subsequent encounter. Patient reports that signs and symptoms h ave been present for 1 week and indicates a pain score of 5/10. MEDICAL/SURGICAL HISTORY: . Hypertension. CVA, ETOH, Anxiety, Diabetes. None. COMPARISON: [facility], CHEST 1V SINGLE AP, 02/20/2018. . FINDINGS: Trace bibasilar atelectasis not significantly changed. No pleural effusion demonstrated. No pneumotho rax. Heart size stable, within normal limits. Right IJ tunneled double lumen catheter with distal tip in the right atrium again noted. CONCLUSION: No significant change mild bibasilar atelectasis. Electronically signed by: Dionisio Poole MD Board Certified Radiologist 03/01/2018 4:57 AM EST
[2018-03-01] MEDS: Levothyroxine 88 MCG Tablet PO SCH (06:34)
[2018-03-01] MEDS: Chlorhexidine 0.12% Oral Kit 15 ML UDC OROPHARYNG SCH ×2 (07:47→23:21)
[2018-03-01] MEDS: Insulin NovoLOG Aspart Correctional Sugar Inj SQ SCH ×4 (07:47→23:21)
[2018-03-01] MEDS: Folic Acid 1 MG Tablet PO SCH (07:59)
[2018-03-01] MEDS: amLODIPine 5 MG Tablet PO SCH (07:59)
[2018-03-01] MEDS: Carvedilol 6.25 MG Tablet PO SCH ×2 (07:59→23:20)
[2018-03-01] MEDS: Senna/Docusate Sodium 8.6/50 MG Tablet PO SCH ×2 (08:00→23:22)
[2018-03-01] MEDS: Calcium Acetate 667 MG Capsule PO SCH ×3 (08:00→17:04)
[2018-03-01] MEDS: Heparin 10,000 UNITS/10 ML Vial (for IV use) OTHER PRN (09:28)
[2018-03-01] MEDS: Dextrose 5%/NaCl 0.9% Inj 1,000 ML IV.CONT SCH (10:07)
[2018-03-01] MEDS: levETIRAcetam 500 MG Tablet PO SCH ×2 (12:55→23:20)
--- NOTE | 2018-03-01 14:53 | P.PNIM ---
Subjective Interval history: Follow up ESRD on HD, possible anoxic brain injury, abdominal pain, nausea Patient is resting in bed. His sister is at the bedside visiting. Patient complains of passing a lot of gas and abdominal discomfort. Sister states he has not had anything to eat for breakfast or lunch and he had one episode of emesis. Patient able to follow commands. He also reports pain in his penis. RN states he had a straight catheterization overnight for urinary retention. Physical Exam Vital signs: Last Vital Signs Temp 97.8 F 03/01/18 13:08 Pulse 101 H 03/01/18 13:08 Resp 20 03/01/18 13:08 BP 143/98 H 03/01/18 13:08 Pulse Ox 95 03/01/18 13:08 Intake & Output 02/27/18 02/28/18 03/01/18 03/02/18 06:59 06:59 06:59 06:59 Intake Total 840 / 840 480 / 480 Output Total 125 / 125 2500 / 2500 500 / 500 1999 / 1999 Balance 715 / 715 -2500 / -2500 -20 / -20 -1999 / Weight 94.9 kg Narrative: General : Mid aged W/M patient in mild distress 2/2 abdominal pain HEENT: extraocular movements are intact, clear oropharyngeal mucosa, no JVD Cardiovascular: S1-S2 audible, RRR, no murmurs rubs or gallops. Respiratory: clear to auscultation but decreased breath sounds. Abdomen: soft, nontender, nondistended, normal bowel sounds Extremities: no edema or lesions. Neuro: patient can move all 4 extremities. Weak in legs. Urinary Catheter Management Indwelling Temp Sensing Catheter: Cath placed during this visit: yes, but has since been removed by the nurse Insertion date: 01/14/18 Insertion time: 22:00 Removal date: 01/21/18 Removal time: 18:00 Straight: Cath placed during this visit: yes, but has since been removed by the nurse Insertion date: 03/01/18 Insertion time: 04:40 Removal date: 03/01/18 Removal time: 04:56 Results Labs CBC & Chem 7: 02/28/18 04:47 02/28/18 04:47 Imaging Imaging: Impressions Chest X-Ray 03/01/18 00:00 CONCLUSION: No significant change mild bibasilar atelectasis. Procedures Procedures: Left IJ HD tunneled cath placed 02/08/18 by IR Assessment and Plan Plan 62-year-old white male who was admitted with cardiogenic shock and acute respiratory failure requiring CPR and epinephrine in the field, after being found down at home and being witnessed to possibly have undergone seizure-like activity. Intubation was attempted in the field but were unable to do so, patient was ultimately intubated in the hospital, started on pressors, placed in the ICU on mechanical ventilation. Found to have bilateral pneumothoraces with chest tubes placed, had developed some pneumoperitoneum which surgically deemed might have been a leak from his chest tubes as opposed to an acute surgical abdomen. Patient was started on antibiotics empirically for possible aspiration pneumonia but was ultimately discontinued off of them by infectious disease. Developed rhabdomyolysis with worsening acute renal failure which became sustained, with the patient now undergoing dialysis. Ultimately was discontinued off pressors, cardiology deferred heart cath due to renal failure. Patient had difficulty following commands after he was discontinued off of sedation and after extubation. Had an MRI done on 01/17 which showed no acute findings, only an older right parietal CVA. EEG was done which was unremarkable. ESRD on HD -dialysis M, W, Fr. First dialysis 01/09/18. -Nephrology consulted and following -R IJ permacath placement 02/08/18 -if no improvement in renal function, patient will require outpatient HD arrangement -probable renal biopsy next week if no improvement in renal function Abdominal pain, nausea/vomiting -s/p dialysis today -may be 2/2 gas -Simethicone x 1 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 Possible anoxic brain injury -Neurology consulted and following -PT/OT/ST -ok to get out of bed per Neurology Dysphagia related to encephalopathy -ST rec mechanical soft, thin liquid diet Possible seizure -continue Keppra -EEG was negative NSTEMI -troponins 0.52, 1.89 & 2.37 respectively -cardiology consulted, rec conservative medical management -continue ASA, Coreg, Isosorbide, amlodipine and atorvastatin Bilateral pneumothoraces - stable -chest tube removed 01/28/18 Pneumomediastinum Pneumoperitoneum with right retroperitoneal gas around the right kidney -Likely secondary to bilateral pneumothoraces with no surgical intervention warranted per general surgery Acute respiratory failure -continue supplemental O2 PRN -pulmonary following Cirrhosis -likely secondary to alcohol abuse -continue BB Type II diabetes mellitus, uncontrolled -accuchecks ac/hs with SSI -Continue Aspart Sliding scale insulin. -Will continue Levemir 5 units QHS. Goal BG 140-180. -ADA diet Hypothyroidism -continue Synthroid Normocytic anemia - stable -s/p PRBC transfusion -epogen with dialysis MDM: self Code: DNR GI ppx: Protonix PO DVT ppx: Heparin SQ Discussed with: RN, patient, Dispo: awaiting placement Progress Note: Quality VTE Deep Vein Thrombosis/Pulmonary Embolism Present on Admission: No
[2018-03-01] MEDS ORDERED: Simethicone 80 MG Chew Tablet PO ONE (15:31)
--- NOTE | 2018-03-01 21:36 | P.PNNP ---
Subjective Interval history: Patient seen in AM, during HD, not fully oriented. Physical Exam Vital signs: Vital Signs 02/28/18 23:45 03/01/18 00:00 03/01/18 04:00 Temperature 98.2 F 97.5 F L Pulse Rate 87 79 Respiratory Rate 18 20 20 Blood Pressure 134/73 129/85 Pulse Oximetry 94 L 92 L 03/01/18 07:00 03/01/18 08:00 03/01/18 13:08 Temperature 97.6 F 97.8 F Pulse Rate 85 101 H Respiratory Rate 12 20 20 Blood Pressure 126/70 143/98 H Pulse Oximetry 93 L 95 03/01/18 15:17 03/01/18 16:48 03/01/18 20:00 Temperature 97.1 F L 97.6 F Pulse Rate 97 H 95 H Respiratory Rate 12 20 20 Blood Pressure 115/75 120/72 Pulse Oximetry 94 L 95 03/01/18 21:24 Temperature Pulse Rate Respiratory Rate Blood Pressure Pulse Oximetry 96 Intake & Output 03/01/18 03/01/18 03/02/18 06:59 18:59 06:59 Intake Total 480 / 480 Output Total 500 / 500 1999 Balance -500 / -500 -1520 / -1520 Intake: Oral 480 / 480 Output: Urine 50 / 50 Hemodialysis Amount 1999 Urine Amount (Catheter) 450 / 450 Straight 450 / 450 Narrative: General : Mid aged W/M patient in mild distress 2/2 abdominal pain HEENT: extraocular movements are intact, clear oropharyngeal mucosa, no JVD Cardiovascular: S1-S2 audible, RRR, no murmurs rubs or gallops. Respiratory: clear to auscultation but decreased breath sounds. Abdomen: soft, nontender, nondistended, normal bowel sounds Extremities: no edema or lesions. Neuro: patient can move all 4 extremities. Weak in legs. - Urinary Catheter Management Indwelling Temp Sensing Catheter Cath placed during this visit: yes, but has since been removed by the nurse Reason for continuing: Decision to DC catheter Insertion date: 01/14/18 Insertion time: 22:00 Removal date: 01/21/18 Removal time: 18:00 Straight Cath placed during this visit: yes, but has since been removed by the nurse Reason for continuing: Not indwelling catheter Insertion date: 03/01/18 Insertion time: 04:40 Removal date: 03/01/18 Removal time: 04:56 Assessment and Plan - Assessment (1) Acute renal failure Code(s): N17.9 - Acute kidney failure, unspecified Status: Acute Plan: Remains dialysis dependent at this time. First HD 01/17/18 , RIJ PermCath placed 02/08/18 Continue HD MWF schedule for the present. Medications should be adjusted for the patient's estimated GFR if clinically indicated. Avoid agents with significant potential for nephrotoxicity possible including NSAIDs for analgesia, iodine contrast agents. Gadolinium is contraindicated if the GFR is below 30. Continue calcium acetate for hyperphosphatemia. Complements and ADORE normal. SPEP pending. Creatinine remains elevated. If not better, will need out patient HD arrangement. No improvement in the renal function. For placement purposes at out side dialysis facility. If no improvement in renal function, will consider renal Biopsy next week. HD now, remove fluid as tolerated. (2) Anemia Code(s): D64.9 - Anemia, unspecified Status: Acute Qualifiers: Anemia type: due to chronic kidney disease Plan: Epogen with dialysis (3) Hypertension Code(s): I10 - Essential (primary) hypertension Status: Acute Plan: Well controlled, will monitor. (4) Diabetes Code(s): E11.9 - Type 2 diabetes mellitus without complications Status: Acute Plan: Maintain blood sugars between 140 mg /dl to 180 mg/dl while hospitalized. Well controlled.
[2018-03-01] MEDS: Insulin Detemir Inj 1,000 UNIT/10 ML Vial SQ SCH (22:59)
[2018-03-01] MEDS: Morphine Inj 4 MG/ML Vial IV.PUSH PRN (22:59)
[2018-03-01] MEDS: Bisacodyl 10 MG Supp RECTAL PRN (23:22)
[2018-03-02] MEDS: Oral Hygiene Kit OROPHARYNG SCH ×4 (04:34→17:33)
[2018-03-02] MEDS: Artificial Tears Opth Drops 15 ML Bottle EACH EYE SCH ×3 (04:34→17:33)
[2018-03-02] MEDS: Dextrose 5%/NaCl 0.9% Inj 1,000 ML IV.CONT SCH (04:35)
[2018-03-02] MEDS: hydrALAZINE 25 MG Tablet PO SCH ×2 (06:28→13:42)
[2018-03-02] MEDS: Levothyroxine 88 MCG Tablet PO SCH (06:28)
[2018-03-02] MEDS: Chlorhexidine 0.12% Oral Kit 15 ML UDC OROPHARYNG SCH (09:00)
[2018-03-02] MEDS: Calcium Acetate 667 MG Capsule PO SCH ×3 (09:52→17:35)
[2018-03-02] MEDS: Folic Acid 1 MG Tablet PO SCH (09:53)
[2018-03-02] MEDS: levETIRAcetam 500 MG Tablet PO SCH ×2 (09:53→20:37)
[2018-03-02] MEDS: Senna/Docusate Sodium 8.6/50 MG Tablet PO SCH ×2 (09:53→20:37)
[2018-03-02] MEDS: Carvedilol 6.25 MG Tablet PO SCH ×2 (09:53→20:37)
[2018-03-02] MEDS: amLODIPine 5 MG Tablet PO SCH (09:53)
[2018-03-02] MEDS: Insulin NovoLOG Aspart Correctional Sugar Inj SQ SCH ×2 (13:17→17:33)
--- NOTE | 2018-03-02 14:33 | P.PNIM ---
Subjective Interval history: Follow up ESRD on HD, possible anoxic brain injury, abdominal pain, nausea Patient is resting with his eyes closed. He opens them to repeated verbal stimuli and gentle touch. Patient denies abdominal pain, nausea or vomiting. No fevers or chills. Physical Exam Vital signs: Last Vital Signs Temp 97.6 F 03/02/18 11:15 Pulse 81 03/02/18 11:15 Resp 20 03/02/18 11:15 BP 172/85 H 03/02/18 11:15 Pulse Ox 95 03/02/18 11:15 Intake & Output 02/28/18 03/01/18 03/02/18 03/03/18 06:59 06:59 06:59 06:59 Intake Total 480 / 480 480 / 480 Output Total 2500 / 2500 500 / 500 2275 / 2275 Balance -2500 / -2500 -20 / -20 -1795 / -1795 Weight 94.9 kg Narrative: General : Mid aged W/M patient in mild distress 2/2 abdominal pain HEENT: extraocular movements are intact, clear oropharyngeal mucosa, no JVD Cardiovascular: S1-S2 audible, RRR, no murmurs rubs or gallops. Respiratory: clear to auscultation but decreased breath sounds. Abdomen: soft, nontender, nondistended, normal bowel sounds Extremities: no edema or lesions. Neuro: patient can move all 4 extremities. Weak in legs. Urinary Catheter Management Indwelling Temp Sensing Catheter: Cath placed during this visit: yes, but has since been removed by the nurse Insertion date: 01/14/18 Insertion time: 22:00 Removal date: 01/21/18 Removal time: 18:00 Straight: Cath placed during this visit: yes, but has since been removed by the nurse Insertion date: 03/01/18 Insertion time: 23:15 Removal date: 03/01/18 Removal time: 23:30 Results Labs CBC & Chem 7: 02/28/18 04:47 02/28/18 04:47 Procedures Procedures: Left IJ HD tunneled cath placed 02/08/18 by IR Assessment and Plan Plan 62-year-old white male who was admitted with cardiogenic shock and acute respiratory failure requiring CPR and epinephrine in the field, after being found down at home and being witnessed to possibly have undergone seizure-like activity. Intubation was attempted in the field but were unable to do so, patient was ultimately intubated in the hospital, started on pressors, placed in the ICU on mechanical ventilation. Found to have bilateral pneumothoraces with chest tubes placed, had developed some pneumoperitoneum which surgically deemed might have been a leak from his chest tubes as opposed to an acute surgical abdomen. Patient was started on antibiotics empirically for possible aspiration pneumonia but was ultimately discontinued off of them by infectious disease. Developed rhabdomyolysis with worsening acute renal failure which became sustained, with the patient now undergoing dialysis. Ultimately was discontinued off pressors, cardiology deferred heart cath due to renal failure. Patient had difficulty following commands after he was discontinued off of sedation and after extubation. Had an MRI done on 01/17 which showed no acute findings, only an older right parietal CVA. EEG was done which was unremarkable. ESRD on HD -dialysis M, W, Fr. First dialysis 01/09/18. -Nephrology consulted and following -R IJ permacath placement 02/08/18 -if no improvement in renal function, patient will require outpatient HD arrangement -probable renal biopsy next week if no improvement in renal function 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 Possible anoxic brain injury -Neurology consulted and following -PT/OT/ST -ok to get out of bed per Neurology Dysphagia related to encephalopathy -ST rec mechanical soft, thin liquid diet Possible seizure -continue Keppra -EEG was negative NSTEMI -troponins 0.52, 1.89 & 2.37 respectively -cardiology consulted, rec conservative medical management -continue ASA, Coreg, Isosorbide, amlodipine and atorvastatin Bilateral pneumothoraces - stable -chest tube removed 01/28/18 Pneumomediastinum Pneumoperitoneum with right retroperitoneal gas around the right kidney -Likely secondary to bilateral pneumothoraces with no surgical intervention warranted per general surgery Acute respiratory failure -continue supplemental O2 PRN -pulmonary following Cirrhosis -likely secondary to alcohol abuse -continue BB Type II diabetes mellitus, uncontrolled -accuchecks ac/hs with SSI -Continue Aspart Sliding scale insulin. -Will continue Levemir 5 units QHS. Goal BG 140-180. -ADA diet Hypothyroidism -continue Synthroid Normocytic anemia - stable -s/p PRBC transfusion -epogen with dialysis MDM: self Code: DNR GI ppx: Protonix PO DVT ppx: Heparin SQ Discussed with: RN, patient, Dispo: awaiting placement Progress Note: Quality VTE Deep Vein Thrombosis/Pulmonary Embolism Present on Admission: No
--- NOTE | 2018-03-02 21:48 | P.PNNP ---
Subjective Interval history: Patient seen in AM, more alert and oriented, not in distress. Physical Exam Vital signs: Vital Signs 03/02/18 00:00 03/02/18 04:00 03/02/18 07:40 Temperature 98.1 F 98.4 F 97.4 F L Pulse Rate 101 H 88 82 Respiratory Rate 20 20 20 Blood Pressure 116/76 108/76 151/96 H Pulse Oximetry 92 L 95 93 L 03/02/18 08:00 03/02/18 11:15 03/02/18 12:00 Temperature 97.6 F Pulse Rate 89 81 79 Respiratory Rate 16 20 Blood Pressure 172/85 H Pulse Oximetry 95 03/02/18 14:15 03/02/18 16:00 03/02/18 20:00 Temperature 97.7 F 98.2 F Pulse Rate 80 93 H 78 Respiratory Rate 20 20 Blood Pressure 169/80 H 101/59 L Pulse Oximetry 94 L 90 L Intake & Output 03/02/18 03/02/18 03/03/18 06:59 18:59 06:59 Output Total 275 / 275 250 / 250 Balance -275 / -275 -250 / -250 Output: Urine 250 / 250 Urine Amount (Catheter) 275 / 275 Straight 275 / 275 Other: Date of Last Bowel Movement 02/28/18 # Bowel Movements 2 Narrative: General : Mid aged W/M patient in mild distress 2/2 abdominal pain HEENT: extraocular movements are intact, clear oropharyngeal mucosa, no JVD Cardiovascular: S1-S2 audible, RRR, no murmurs rubs or gallops. Respiratory: clear to auscultation but decreased breath sounds. Abdomen: soft, nontender, nondistended, normal bowel sounds Extremities: no edema or lesions. Neuro: patient can move all 4 extremities. Weak in legs. - Urinary Catheter Management Indwelling Temp Sensing Catheter Cath placed during this visit: yes, but has since been removed by the nurse Reason for continuing: Decision to DC catheter Insertion date: 01/14/18 Insertion time: 22:00 Removal date: 01/21/18 Removal time: 18:00 Straight Cath placed during this visit: yes, but has since been removed by the nurse Reason for continuing: Not indwelling catheter Insertion date: 03/01/18 Insertion time: 23:15 Removal date: 03/01/18 Removal time: 23:30 Assessment and Plan - Assessment (1) Acute renal failure Code(s): N17.9 - Acute kidney failure, unspecified Status: Acute Plan: Remains dialysis dependent at this time. First HD 01/17/18 , RIWillam RiveraCath placed 02/08/18 Continue HD MWF schedule for the present. Medications should be adjusted for the patient's estimated GFR if clinically indicated. Avoid agents with significant potential for nephrotoxicity possible including NSAIDs for analgesia, iodine contrast agents. Gadolinium is contraindicated if the GFR is below 30. Continue calcium acetate for hyperphosphatemia. Complements and ADORE normal. SPEP pending. Creatinine remains elevated. If not better, will need out patient HD arrangement. No improvement in the renal function. For placement purposes at out side dialysis facility. If no improvement in renal function, will consider renal Biopsy next week. HD done yesterday, continue HD as needed. (2) Anemia Code(s): D64.9 - Anemia, unspecified Status: Acute Qualifiers: Anemia type: due to chronic kidney disease Plan: Epogen with dialysis (3) Hypertension Code(s): I10 - Essential (primary) hypertension Status: Acute Plan: Well controlled, will monitor. (4) Diabetes Code(s): E11.9 - Type 2 diabetes mellitus without complications Status: Acute Plan: Maintain blood sugars between 140 mg /dl to 180 mg/dl while hospitalized. Well controlled.
[2018-03-03] MEDS: Chlorhexidine 0.12% Oral Kit 15 ML UDC OROPHARYNG SCH ×3 (05:26→20:32)
[2018-03-03] MEDS: Insulin Detemir Inj 1,000 UNIT/10 ML Vial SQ SCH ×2 (05:26→20:32)
[2018-03-03] MEDS: Dextrose 5%/NaCl 0.9% Inj 1,000 ML IV.CONT SCH ×2 (05:26→20:32)
[2018-03-03] MEDS: Insulin NovoLOG Aspart Correctional Sugar Inj SQ SCH ×4 (05:26→17:07)
[2018-03-03] MEDS: Oral Hygiene Kit OROPHARYNG SCH ×3 (05:27→16:47)
[2018-03-03] MEDS: Artificial Tears Opth Drops 15 ML Bottle EACH EYE SCH ×3 (05:27→16:48)
[2018-03-03] MEDS: hydrALAZINE 25 MG Tablet PO SCH ×3 (05:28→14:00)
[2018-03-03] MEDS: Levothyroxine 88 MCG Tablet PO SCH (05:32)
[2018-03-03] MEDS: amLODIPine 5 MG Tablet PO SCH (09:00)
[2018-03-03] MEDS: Carvedilol 6.25 MG Tablet PO SCH ×2 (09:00→20:28)
[2018-03-03] MEDS: Calcium Acetate 667 MG Capsule PO SCH ×3 (09:00→17:41)
[2018-03-03] MEDS: Folic Acid 1 MG Tablet PO SCH (09:00)
--- NOTE | 2018-03-03 09:30 | P.PNNP ---
Subjective Interval history: Patient seen during HD, not fully oriented, not in distress. Physical Exam Vital signs: Vital Signs 03/02/18 11:15 03/02/18 12:00 03/02/18 14:15 Temperature 97.6 F 97.7 F Pulse Rate 81 79 80 Respiratory Rate 20 20 Blood Pressure 172/85 H 169/80 H Pulse Oximetry 95 94 L 03/02/18 16:00 03/02/18 20:00 03/03/18 00:00 Temperature 98.2 F 98.1 F Pulse Rate 93 H 79 70 Respiratory Rate 20 20 Blood Pressure 101/59 L 120/60 Pulse Oximetry 90 L 94 L 03/03/18 04:20 03/03/18 08:05 Temperature 97.2 F L Pulse Rate 68 79 Respiratory Rate 18 Blood Pressure 128/73 Pulse Oximetry 95 Intake & Output 03/02/18 03/03/18 03/03/18 18:59 06:59 18:59 Output Total 250 / 250 325 / 325 Balance -250 / -250 -325 / -325 Output: Urine 250 / 250 0 / 0 Urine Amount (Catheter) 325 / 325 Straight 325 / 325 Other: Date of Last Bowel Movement 02/28/18 03/02/18 Narrative: General : Mid aged W/M patient in mild distress 2/2 abdominal pain HEENT: extraocular movements are intact, clear oropharyngeal mucosa, no JVD Cardiovascular: S1-S2 audible, RRR, no murmurs rubs or gallops. Respiratory: clear to auscultation but decreased breath sounds. Abdomen: soft, nontender, nondistended, normal bowel sounds Extremities: no edema or lesions. Neuro: patient can move all 4 extremities. Weak in legs. - Urinary Catheter Management Indwelling Temp Sensing Catheter Cath placed during this visit: yes, but has since been removed by the nurse Reason for continuing: Decision to DC catheter Insertion date: 01/14/18 Insertion time: 22:00 Removal date: 01/21/18 Removal time: 18:00 Straight Cath placed during this visit: yes, but has since been removed by the nurse Reason for continuing: Not indwelling catheter Insertion date: 03/01/18 Insertion time: 23:15 Removal date: 03/01/18 Removal time: 23:30 Assessment and Plan - Assessment (1) Acute renal failure Code(s): N17.9 - Acute kidney failure, unspecified Status: Acute Plan: Remains dialysis dependent at this time. First HD 01/17/18 , RIJ PermCath placed 02/08/18 Continue HD MWF schedule for the present. Medications should be adjusted for the patient's estimated GFR if clinically indicated. Avoid agents with significant potential for nephrotoxicity possible including NSAIDs for analgesia, iodine contrast agents. Gadolinium is contraindicated if the GFR is below 30. Continue calcium acetate for hyperphosphatemia. Complements and ADORE normal. SPEP pending. Creatinine remains elevated. If not better, will need out patient HD arrangement. No improvement in the renal function. For placement purposes at out side dialysis facility. If no improvement in renal function, will consider renal Biopsy next week. HD now and remove fluid as tolerated. Watch for renal recovery. (2) Anemia Code(s): D64.9 - Anemia, unspecified Status: Acute Qualifiers: Anemia type: due to chronic kidney disease Plan: Epogen with dialysis (3) Hypertension Code(s): I10 - Essential (primary) hypertension Status: Acute Plan: Well controlled, will monitor. (4) Diabetes Code(s): E11.9 - Type 2 diabetes mellitus without complications Status: Acute Plan: Maintain blood sugars between 140 mg /dl to 180 mg/dl while hospitalized. Well controlled.
--- NOTE | 2018-03-03 10:12 | P.PNIM ---
Subjective Interval history: Follow-up ESRD on HD, probable anoxic brain injury Patient is resting in bed status post hemodialysis. He complains of itching. No rash. Denies abdominal pain, nausea or vomiting. No distress noted. Physical Exam Vital signs: Last Vital Signs Temp 97.2 F L 03/03/18 08:05 Pulse 79 03/03/18 08:05 Resp 18 03/03/18 08:05 BP 128/73 03/03/18 08:05 Pulse Ox 95 03/03/18 08:05 Intake & Output 03/01/18 03/02/18 03/03/18 03/04/18 06:59 06:59 06:59 06:59 Intake Total 480 / 480 480 / 480 Output Total 500 / 500 2275 / 2275 575 / 575 Balance -20 / -20 -1795 / -1795 -575 / -575 Narrative: General : Mid aged W/M patient in mild distress 2/2 abdominal pain HEENT: extraocular movements are intact, clear oropharyngeal mucosa, no JVD Cardiovascular: S1-S2 audible, RRR, no murmurs rubs or gallops. Respiratory: clear to auscultation but decreased breath sounds. Abdomen: soft, nontender, nondistended, normal bowel sounds Extremities: no edema or lesions. Neuro: patient can move all 4 extremities. Weak in legs. Urinary Catheter Management Indwelling Temp Sensing Catheter: Cath placed during this visit: yes, but has since been removed by the nurse Insertion date: 01/14/18 Insertion time: 22:00 Removal date: 01/21/18 Removal time: 18:00 Straight: Cath placed during this visit: yes, but has since been removed by the nurse Insertion date: 03/01/18 Insertion time: 23:15 Removal date: 03/01/18 Removal time: 23:30 Results Labs CBC & Chem 7: 02/28/18 04:47 02/28/18 04:47 Procedures Procedures: Left IJ HD tunneled cath placed 02/08/18 by IR Assessment and Plan Plan 62-year-old white male who was admitted with cardiogenic shock and acute respiratory failure requiring CPR and epinephrine in the field, after being found down at home and being witnessed to possibly have undergone seizure-like activity. Intubation was attempted in the field but were unable to do so, patient was ultimately intubated in the hospital, started on pressors, placed in the ICU on mechanical ventilation. Found to have bilateral pneumothoraces with chest tubes placed, had developed some pneumoperitoneum which surgically deemed might have been a leak from his chest tubes as opposed to an acute surgical abdomen. Patient was started on antibiotics empirically for possible aspiration pneumonia but was ultimately discontinued off of them by infectious disease. Developed rhabdomyolysis with worsening acute renal failure which became sustained, with the patient now undergoing dialysis. Ultimately was discontinued off pressors, cardiology deferred heart cath due to renal failure. Patient had difficulty following commands after he was discontinued off of sedation and after extubation. Had an MRI done on 01/17 which showed no acute findings, only an older right parietal CVA. EEG was done which was unremarkable. Patient seen and evaluated 03/03/18. He underwent hemodialysis today. ESRD on HD -dialysis M, W, Fr. 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 Possible anoxic brain injury -Neurology consulted and following -PT/OT/ST -ok to get out of bed per Neurology with assistance Dysphagia related to encephalopathy -ST rec mechanical soft, thin liquid diet Possible seizure -continue Keppra -EEG was negative NSTEMI -troponins 0.52, 1.89 & 2.37 respectively -cardiology consulted, rec conservative medical management -continue ASA, Coreg, Isosorbide, amlodipine and atorvastatin Bilateral pneumothoraces - stable -chest tube removed 01/28/18 Pneumomediastinum Pneumoperitoneum with right retroperitoneal gas around the right kidney -Likely secondary to bilateral pneumothoraces with no surgical intervention warranted per general surgery Acute respiratory failure -continue supplemental O2 PRN -pulmonary following Cirrhosis -likely secondary to alcohol abuse -continue BB Type II diabetes mellitus, uncontrolled -accuchecks ac/hs with SSI -Continue Aspart Sliding scale insulin. -Will continue Levemir 5 units QHS. Goal BG 140-180. -ADA diet Hypothyroidism -continue Synthroid Normocytic anemia - stable -s/p PRBC transfusion -epogen with dialysis MDM: self Code: DNR GI ppx: Protonix PO DVT ppx: Heparin SQ Discussed with: RN, patient, Dispo: awaiting placement Progress Note: Quality VTE Deep Vein Thrombosis/Pulmonary Embolism Present on Admission: No
[2018-03-03] MEDS: Senna/Docusate Sodium 8.6/50 MG Tablet PO SCH (13:28)
[2018-03-03] MEDS: levETIRAcetam 500 MG Tablet PO SCH ×2 (13:53→20:28)
[2018-03-04] MEDS: Insulin NovoLOG Aspart Correctional Sugar Inj SQ SCH ×5 (00:08→21:53)
[2018-03-04] MEDS: Senna/Docusate Sodium 8.6/50 MG Tablet PO SCH ×3 (00:09→21:52)
[2018-03-04] MEDS: hydrALAZINE 25 MG Tablet PO SCH ×4 (00:12→21:52)
[2018-03-04] MEDS: Morphine Inj 4 MG/ML Vial IV.PUSH PRN (02:16)
[2018-03-04] MEDS: Oral Hygiene Kit OROPHARYNG SCH ×5 (03:34→23:21)
[2018-03-04] MEDS: Artificial Tears Opth Drops 15 ML Bottle EACH EYE SCH ×4 (03:34→23:22)
[2018-03-04] MEDS: Levothyroxine 88 MCG Tablet PO SCH (06:09)
[2018-03-04] MEDS: Chlorhexidine 0.12% Oral Kit 15 ML UDC OROPHARYNG SCH ×2 (08:48→21:44)
[2018-03-04] MEDS: levETIRAcetam 500 MG Tablet PO SCH ×2 (08:50→21:52)
[2018-03-04] MEDS: Calcium Acetate 667 MG Capsule PO SCH ×3 (08:50→17:11)
[2018-03-04] MEDS: Carvedilol 6.25 MG Tablet PO SCH ×2 (08:50→21:52)
[2018-03-04] MEDS: Folic Acid 1 MG Tablet PO SCH (08:50)
[2018-03-04] MEDS: amLODIPine 5 MG Tablet PO SCH (08:51)
--- NOTE | 2018-03-04 12:52 | P.PNIM ---
Subjective Interval history: Follow-up ESRD on HD, probable anoxic brain injury Patient resting in bed. He denies any pain or discomfort. Speech clear, follows commands. No abdominal pain, nausea or vomiting. Physical Exam Vital signs: Last Vital Signs Temp 97.6 F 03/04/18 11:35 Pulse 87 03/04/18 11:35 Resp 20 03/04/18 11:35 BP 100/55 L 03/04/18 11:35 Pulse Ox 95 03/04/18 11:35 Intake & Output 03/02/18 03/03/18 03/04/18 03/05/18 06:59 06:59 06:59 06:59 Intake Total 480 / 480 450 / 450 Output Total 2275 / 2275 575 / 575 3000 / 3000 Balance -1795 / -1795 -575 / -575 -2550 / -2550 Narrative: General : Mid aged W/M patient in mild distress 2/2 abdominal pain HEENT: extraocular movements are intact, clear oropharyngeal mucosa, no JVD Cardiovascular: S1-S2 audible, RRR, no murmurs rubs or gallops. Respiratory: clear to auscultation but decreased breath sounds. Abdomen: soft, nontender, nondistended, normal bowel sounds Extremities: no edema or lesions. Neuro: patient can move all 4 extremities. Weak in legs. Urinary Catheter Management Indwelling Temp Sensing Catheter: Cath placed during this visit: yes, but has since been removed by the nurse Insertion date: 01/14/18 Insertion time: 22:00 Removal date: 01/21/18 Removal time: 18:00 Straight: Cath placed during this visit: yes, but has since been removed by the nurse Insertion date: 03/01/18 Insertion time: 23:15 Removal date: 03/01/18 Removal time: 23:30 Results Labs CBC & Chem 7: 02/28/18 04:47 02/28/18 04:47 Procedures Procedures: Left IJ HD tunneled cath placed 02/08/18 by IR Assessment and Plan Plan 62-year-old white male who was admitted with cardiogenic shock and acute respiratory failure requiring CPR and epinephrine in the field, after being found down at home and being witnessed to possibly have undergone seizure-like activity. Intubation was attempted in the field but were unable to do so, patient was ultimately intubated in the hospital, started on pressors, placed in the ICU on mechanical ventilation. Found to have bilateral pneumothoraces with chest tubes placed, had developed some pneumoperitoneum which surgically deemed might have been a leak from his chest tubes as opposed to an acute surgical abdomen. Patient was started on antibiotics empirically for possible aspiration pneumonia but was ultimately discontinued off of them by infectious disease. Developed rhabdomyolysis with worsening acute renal failure which became sustained, with the patient now undergoing dialysis. Ultimately was discontinued off pressors, cardiology deferred heart cath due to renal failure. Patient had difficulty following commands after he was discontinued off of sedation and after extubation. Had an MRI done on 01/17 which showed no acute findings, only an older right parietal CVA. EEG was done which was unremarkable. Patient seen and evaluated 03/04/18. ESRD on HD -dialysis M, W, Fr. 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 Possible anoxic brain injury -Neurology consulted and following -PT/OT/ST -ok to get out of bed per Neurology with assistance Dysphagia related to encephalopathy -ST rec mechanical soft, thin liquid diet Possible seizure -continue Keppra -EEG was negative NSTEMI -troponins 0.52, 1.89 & 2.37 respectively -cardiology consulted, rec conservative medical management -continue ASA, Coreg, Isosorbide, amlodipine and atorvastatin Bilateral pneumothoraces - stable -chest tube removed 01/28/18 Pneumomediastinum Pneumoperitoneum with right retroperitoneal gas around the right kidney -Likely secondary to bilateral pneumothoraces with no surgical intervention warranted per general surgery Acute respiratory failure -continue supplemental O2 PRN -pulmonary following Cirrhosis -likely secondary to alcohol abuse -continue BB Type II diabetes mellitus, uncontrolled -accuchecks ac/hs with SSI -Continue Aspart Sliding scale insulin. -Will continue Levemir 5 units QHS. Goal BG 140-180. -ADA diet Hypothyroidism -continue Synthroid Normocytic anemia - stable -s/p PRBC transfusion -epogen with dialysis MDM: self Code: DNR GI ppx: Protonix PO DVT ppx: Heparin SQ Discussed with: RN, patient, Dispo: awaiting placement Progress Note: Quality VTE Deep Vein Thrombosis/Pulmonary Embolism Present on Admission: No
--- NOTE | 2018-03-04 16:26 | P.PNNP ---
Subjective Interval history: Patient is alert and oriented today. HD yesterday tolerated well. Wants to be discharged. <Smiley Barth - Last Filed: 03/04/18 16:21> Physical Exam Vital signs: Vital Signs 03/03/18 17:19 03/03/18 20:00 03/03/18 20:34 Temperature 98.9 F 98.3 F Pulse Rate 95 H 86 82 Respiratory Rate 22 18 Blood Pressure 125/81 130/80 Pulse Oximetry 94 L 93 L 03/04/18 00:00 03/04/18 00:07 03/04/18 04:00 Temperature 97.2 F L 97.6 F Pulse Rate 72 73 77 Respiratory Rate 18 18 Blood Pressure 109/68 110/74 Pulse Oximetry 93 L 92 L 03/04/18 04:02 03/04/18 07:25 03/04/18 11:35 Temperature 97.8 F 97.6 F Pulse Rate 71 74 87 Respiratory Rate 20 20 Blood Pressure 112/70 100/55 L Pulse Oximetry 95 95 Intake & Output 03/03/18 03/04/18 03/04/18 18:59 06:59 18:59 Intake Total 450 / 450 Output Total 3000 / 3000 Balance -3000 / -3000 450 / 450 Intake: Oral 450 / 450 Output: Hemodialysis Amount 3000 / 3000 Other: Date of Last Bowel Movement 03/02/18 03/02/18 03/02/18 Narrative: GENERAL:Alert. NAD. SKIN: Warm and dry. NECK: Supple, trachea midline. No JVD . CARDIOVASCULAR: Regular rate and rhythm without murmurs, gallops, or rubs. Hemodialysis PermCath in place right infraclavicular area appears to be intact. RESPIRATORY: Breath sounds equal bilaterally. .No accessory muscle use. GASTROINTESTINAL: Abdomen soft, non-tender, nondistended. +BS MUSCULOSKELETAL: No cyanosis, or edema. Moves feet and arms but weak. - Urinary Catheter Management Indwelling Temp Sensing Catheter Cath placed during this visit: yes, but has since been removed by the nurse Reason for continuing: Decision to DC catheter Insertion date: 01/14/18 Insertion time: 22:00 Removal date: 01/21/18 Removal time: 18:00 Straight Cath placed during this visit: yes, but has since been removed by the nurse Reason for continuing: Not indwelling catheter Insertion date: 03/01/18 Insertion time: 23:15 Removal date: 03/01/18 Removal time: 23:30 <Smiley Barth - Last Filed: 03/04/18 16:21> Vital signs: Vital Signs 03/04/18 00:00 03/04/18 00:07 03/04/18 04:00 Temperature 97.2 F L 97.6 F Pulse Rate 72 73 77 Respiratory Rate 18 18 Blood Pressure 109/68 110/74 Pulse Oximetry 93 L 92 L 03/04/18 04:02 03/04/18 07:25 03/04/18 11:35 Temperature 97.8 F 97.6 F Pulse Rate 71 74 87 Respiratory Rate 20 20 Blood Pressure 112/70 100/55 L Pulse Oximetry 95 95 03/04/18 15:45 Temperature 98.3 F Pulse Rate 73 Respiratory Rate 20 Blood Pressure 125/85 Pulse Oximetry 95 Intake & Output 03/04/18 03/04/18 03/05/18 06:59 18:59 06:59 Intake Total 450 / 450 Output Total 350 / 350 Balance 450 / 450 -350 / -350 Intake: Oral 450 / 450 Output: Urine 350 / 350 Other: Date of Last Bowel Movement 03/02/18 03/02/18 - Urinary Catheter Management Indwelling Temp Sensing Catheter Cath placed during this visit: no Straight Cath placed during this visit: no <Brianna Blevins - Last Filed: 03/04/18 21:04> Assessment and Plan - Assessment (1) Acute renal failure Code(s): N17.9 - Acute kidney failure, unspecified Status: Acute Plan: Remains dialysis dependent at this time. First HD 01/17/18 , RIJ PermCath placed 02/08/18 Continue HD MWF schedule for the present. Medications should be adjusted for the patient's estimated GFR if clinically indicated. Avoid agents with significant potential for nephrotoxicity possible including NSAIDs for analgesia, iodine contrast agents. Gadolinium is contraindicated if the GFR is below 30. Continue calcium acetate for hyperphosphatemia. If no improvement in renal function, will consider renal Biopsy. HD yesterday with UF of 2 liters. Labs in AM Next HD on Sunday (2) Anemia Code(s): D64.9 - Anemia, unspecified Status: Acute Qualifiers: Anemia type: due to chronic kidney disease Plan: Epogen with dialysis (3) Hypertension Code(s): I10 - Essential (primary) hypertension Status: Acute Plan: Well controlled, will monitor. (4) Diabetes Code(s): E11.9 - Type 2 diabetes mellitus without complications Status: Acute Plan: Maintain blood sugars between 140 mg /dl to 180 mg/dl while hospitalized. Well controlled. <Smiley Barth - Last Filed: 03/04/18 16:21> - Assessment (1) Acute renal failure Code(s): N17.9 - Acute kidney failure, unspecified Status: Acute Plan: Patient seen and examined, agree with above. Continue HD as needed. Watch for renal recovery. (2) Anemia Code(s): D64.9 - Anemia, unspecified Status: Acute Qualifiers: Anemia type: due to chronic kidney disease (3) Hypertension Code(s): I10 - Essential (primary) hypertension Status: Acute (4) Diabetes Code(s): E11.9 - Type 2 diabetes mellitus without complications Status: Acute <Brianna Blevins - Last Filed: 03/04/18 21:04>
[2018-03-04] MEDS: Insulin Detemir Inj 1,000 UNIT/10 ML Vial SQ SCH (21:55)
[2018-03-05] MEDS: Oral Hygiene Kit OROPHARYNG SCH ×3 (04:41→15:53)
[2018-03-05] MEDS: Levothyroxine 88 MCG Tablet PO SCH (05:01)
[2018-03-05] MEDS: Morphine Inj 4 MG/ML Vial IV.PUSH PRN ×2 (05:02→20:49)
[2018-03-05] MEDS: hydrALAZINE 25 MG Tablet PO SCH ×3 (05:02→22:52)
[2018-03-05] MEDS: Chlorhexidine 0.12% Oral Kit 15 ML UDC OROPHARYNG SCH ×2 (08:10→20:52)
[2018-03-05] MEDS: Artificial Tears Opth Drops 15 ML Bottle EACH EYE SCH ×2 (08:10→15:49)
[2018-03-05] MEDS: Folic Acid 1 MG Tablet PO SCH (10:12)
[2018-03-05] MEDS: amLODIPine 5 MG Tablet PO SCH (10:12)
[2018-03-05] MEDS: Calcium Acetate 667 MG Capsule PO SCH ×3 (10:12→18:01)
[2018-03-05] MEDS: Senna/Docusate Sodium 8.6/50 MG Tablet PO SCH ×2 (10:13→20:50)
[2018-03-05] MEDS: Carvedilol 6.25 MG Tablet PO SCH ×2 (10:13→20:50)
[2018-03-05] MEDS: levETIRAcetam 500 MG Tablet PO SCH ×2 (10:13→20:50)
[2018-03-05] MEDS: Insulin NovoLOG Aspart Correctional Sugar Inj SQ SCH ×4 (10:14→20:51)
[2018-03-05 10:48] LABS: Baso # (Auto) 0.2 th/mm3 (0.0-0.2); Eos # (Auto) 0.1 th/mm3 (0.0-0.4); Eos % (Auto) 1.7 % (0.0-4.0); Hematocrit 35.1 % (39.0-51.0); Hemoglobin 11.4 gm/dL (13.0-17.0); Lymph # (Auto) 1.5 th/mm3 (1.0-4.8); Lymph % (Auto) 19.1 % (9.0-44.0); Mean Corpuscular HGB Conc 32.4 % (32.0-36.0); Mean Corpuscular Hemoglobin 28.7 pg (27.0-34.0); Mean Corpuscular Volume 88.7 fL (80.0-100.0); Mean Platelet Volume 7.7 fL (7.0-11.0); Mono # (Auto) 0.8 th/mm3 (0.0-0.9); Mono % (Auto) 9.9 % (0.0-8.0); Neut # (Auto) 5.4 th/mm3 (1.8-7.7); Neut % (Auto) 67.3 % (16.0-70.0); Platelet Count 306 th/mm3 (150-450); Red Blood Count 3.96 mil/mm3 (4.50-5.90); Red Cell Distribution Width 16.4 % (11.6-17.2)
[2018-03-05 11:17] LABS: Albumin 3.3 g/dL (3.4-5.0); Calcium 8.9 mg/dL (8.5-10.1); Carbon Dioxide 30.1 meq/L (21.0-32.0); Potassium 3.8 meq/L (3.5-5.1)
[2018-03-05 11:18] LABS: Phosphorus 3.5 mg/dL (2.5-4.9)
[2018-03-05 11:54] LABS: Eosinophils 3 % (0-4); Lymphocytes 13 % (9-44); Metamyelocytes 3 % (0-1); Monocytes 6 % (0-8); Tallied Nucleated RBC 1 (0-0)
[2018-03-05 11:55] LABS: Ovalocytes 1+; Platelet Estimate Normal (Normal); Platelet Morphology Normal (Normal)
--- NOTE | 2018-03-05 13:19 | P.PNIM ---
Subjective Interval history: Follow up ESRD on HD, probable anoxic brain injury Patient is resting in bed with his eyes closed. He nods to a couple of questions but then drifts off back to sleep. No distress noted. Discussed with RN, no acute events overnight. Physical Exam Vital signs: Last Vital Signs Temp 97.5 F L 03/05/18 08:14 Pulse 73 03/05/18 08:14 Resp 18 03/05/18 08:14 BP 115/74 03/05/18 08:14 Pulse Ox 98 03/05/18 08:14 Intake & Output 03/03/18 03/04/18 03/05/18 03/06/18 06:59 06:59 06:59 06:59 Intake Total 450 / 450 442 / 442 Output Total 575 / 575 3000 / 3000 350 / 350 Balance -575 / -575 -2550 / -2550 92 / 92 Narrative: GENERAL:Alert. NAD. SKIN: Warm and dry. NECK: Supple, trachea midline. No JVD . CARDIOVASCULAR: Regular rate and rhythm without murmurs, gallops, or rubs. Hemodialysis PermCath in place right infraclavicular area appears to be intact. RESPIRATORY: Breath sounds equal bilaterally. .No accessory muscle use. GASTROINTESTINAL: Abdomen soft, non-tender, nondistended. +BS MUSCULOSKELETAL: No cyanosis, or edema. Moves feet and arms but weak. Urinary Catheter Management Indwelling Temp Sensing Catheter: Cath placed during this visit: yes, but has since been removed by the nurse Insertion date: 01/14/18 Insertion time: 22:00 Removal date: 01/21/18 Removal time: 18:00 Straight: Cath placed during this visit: yes, but has since been removed by the nurse Insertion date: 03/01/18 Insertion time: 23:15 Removal date: 03/01/18 Removal time: 23:30 Results Labs CBC & Chem 7: 03/05/18 10:17 03/05/18 10:17 Procedures Procedures: Left IJ HD tunneled cath placed 02/08/18 by IR Assessment and Plan Plan 62-year-old white male who was admitted with cardiogenic shock and acute respiratory failure requiring CPR and epinephrine in the field, after being found down at home and being witnessed to possibly have undergone seizure-like activity. Intubation was attempted in the field but were unable to do so, patient was ultimately intubated in the hospital, started on pressors, placed in the ICU on mechanical ventilation. Found to have bilateral pneumothoraces with chest tubes placed, had developed some pneumoperitoneum which surgically deemed might have been a leak from his chest tubes as opposed to an acute surgical abdomen. Patient was started on antibiotics empirically for possible aspiration pneumonia but was ultimately discontinued off of them by infectious disease. Developed rhabdomyolysis with worsening acute renal failure which became sustained, with the patient now undergoing dialysis. Ultimately was discontinued off pressors, cardiology deferred heart cath due to renal failure. Patient had difficulty following commands after he was discontinued off of sedation and after extubation. Had an MRI done on 01/17 which showed no acute findings, only an older right parietal CVA. EEG was done which was unremarkable. Patient seen and evaluated 03/05/18. ESRD on HD -dialysis M, W, Fr. 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 Possible anoxic brain injury -Neurology consulted and following -PT/OT/ST -ok to get out of bed per Neurology with assistance Dysphagia related to encephalopathy -ST rec mechanical soft, thin liquid diet Possible seizure -continue Keppra -EEG was negative NSTEMI -troponins 0.52, 1.89 & 2.37 respectively -cardiology consulted, rec conservative medical management -continue ASA, Coreg, Isosorbide, amlodipine and atorvastatin Bilateral pneumothoraces - stable -chest tube removed 01/28/18 Pneumomediastinum Pneumoperitoneum with right retroperitoneal gas around the right kidney -Likely secondary to bilateral pneumothoraces with no surgical intervention warranted per general surgery Acute respiratory failure -continue supplemental O2 PRN -pulmonary following Cirrhosis -likely secondary to alcohol abuse -continue BB Type II diabetes mellitus, uncontrolled -accuchecks ac/hs with SSI -Continue Aspart Sliding scale insulin. -Will continue Levemir 5 units QHS. Goal BG 140-180. -ADA diet Hypothyroidism -continue Synthroid Normocytic anemia - stable -s/p PRBC transfusion -epogen with dialysis MDM: self Code: DNR GI ppx: Protonix PO DVT ppx: Heparin SQ Discussed with: RN, patient, CM Dispo: awaiting placement Progress Note: Quality VTE Deep Vein Thrombosis/Pulmonary Embolism Present on Admission: No
--- NOTE | 2018-03-05 18:50 | P.PNNP ---
Subjective Interval history: Patient seen in the afternoon, no complaint, clinically same. Physical Exam Vital signs: Vital Signs 03/04/18 20:00 03/05/18 01:55 03/05/18 04:00 Temperature 97.7 F 97.5 F L 97.8 F Pulse Rate 88 76 76 Respiratory Rate 18 18 18 Blood Pressure 99/72 L 104/78 114/71 Pulse Oximetry 93 L 95 93 L 03/05/18 05:08 03/05/18 08:14 03/05/18 11:32 Temperature 97.5 F L 97.3 F L Pulse Rate 73 72 Respiratory Rate 18 Blood Pressure 115/74 106/72 Pulse Oximetry 98 93 L 03/05/18 17:52 Temperature 97.5 F L Pulse Rate 81 Respiratory Rate 18 Blood Pressure 109/66 Pulse Oximetry 96 Intake & Output 03/04/18 03/05/18 03/05/18 18:59 06:59 18:59 Intake Total 442 / 442 Output Total 350 / 350 0 / 0 Balance -350 / -350 442 / 442 Intake: Oral 442 / 442 Output: Urine 350 / 350 Pleural Fluid 0 / 0 Other: Date of Last Bowel Movement 03/02/18 03/04/18 03/04/18 Narrative: GENERAL:Alert. NAD. SKIN: Warm and dry. NECK: Supple, trachea midline. No JVD . CARDIOVASCULAR: Regular rate and rhythm without murmurs, gallops, or rubs. Hemodialysis PermCath in place right infraclavicular area appears to be intact. RESPIRATORY: Breath sounds equal bilaterally. .No accessory muscle use. GASTROINTESTINAL: Abdomen soft, non-tender, nondistended. +BS MUSCULOSKELETAL: No cyanosis, or edema. Moves feet and arms but weak. - Urinary Catheter Management Indwelling Temp Sensing Catheter Cath placed during this visit: yes, but has since been removed by the nurse Reason for continuing: Decision to DC catheter Insertion date: 01/14/18 Insertion time: 22:00 Removal date: 01/21/18 Removal time: 18:00 Straight Cath placed during this visit: yes, but has since been removed by the nurse Reason for continuing: Not indwelling catheter Insertion date: 03/01/18 Insertion time: 23:15 Removal date: 03/01/18 Removal time: 23:30 Assessment and Plan - Assessment (1) Acute renal failure Code(s): N17.9 - Acute kidney failure, unspecified Status: Acute Plan: Remains dialysis dependent at this time. First HD 01/17/18 , TIMOTEO RiveraCath placed 02/08/18 Continue HD MWF schedule for the present. Medications should be adjusted for the patient's estimated GFR if clinically indicated. Avoid agents with significant potential for nephrotoxicity possible including NSAIDs for analgesia, iodine contrast agents. Gadolinium is contraindicated if the GFR is below 30. Continue calcium acetate for hyperphosphatemia. Complements and ADORE normal. SPEP is negative for spike. Creatinine remains elevated. If not better, will need out patient HD arrangement. No improvement in the renal function. For placement purposes at out side dialysis facility. There is no improvement in renal function, will get renal Biopsy in AM, to see the cause of renal failure and see the prognosis for recovery. HD will be in AM. (2) Anemia Code(s): D64.9 - Anemia, unspecified Status: Acute Qualifiers: Anemia type: due to chronic kidney disease Plan: Epogen with dialysis (3) Hypertension Code(s): I10 - Essential (primary) hypertension Status: Acute Plan: Well controlled, will monitor. (4) Diabetes Code(s): E11.9 - Type 2 diabetes mellitus without complications Status: Acute Plan: Maintain blood sugars between 140 mg /dl to 180 mg/dl while hospitalized. Well controlled.
[2018-03-05] MEDS: Insulin Detemir Inj 1,000 UNIT/10 ML Vial SQ SCH (20:52)
[2018-03-06] MEDS: Oral Hygiene Kit OROPHARYNG SCH ×5 (01:30→23:37)
[2018-03-06] MEDS: Artificial Tears Opth Drops 15 ML Bottle EACH EYE SCH ×4 (01:30→23:38)
[2018-03-06] MEDS: hydrALAZINE 25 MG Tablet PO SCH ×3 (05:12→21:51)
[2018-03-06] MEDS: Levothyroxine 88 MCG Tablet PO SCH (05:18)
[2018-03-06] MEDS: Chlorhexidine 0.12% Oral Kit 15 ML UDC OROPHARYNG SCH ×2 (07:31→20:21)
[2018-03-06] MEDS: Carvedilol 6.25 MG Tablet PO SCH ×2 (08:18→21:53)
[2018-03-06] MEDS: amLODIPine 5 MG Tablet PO SCH (08:18)
[2018-03-06] MEDS: Calcium Acetate 667 MG Capsule PO SCH ×4 (08:24→18:44)
[2018-03-06] MEDS: Senna/Docusate Sodium 8.6/50 MG Tablet PO SCH ×2 (08:24→21:54)
[2018-03-06] MEDS: levETIRAcetam 500 MG Tablet PO SCH ×2 (08:25→21:51)
[2018-03-06] MEDS: Folic Acid 1 MG Tablet PO SCH (08:25)
[2018-03-06] MEDS: Insulin NovoLOG Aspart Correctional Sugar Inj SQ SCH ×4 (08:47→21:56)
[2018-03-06] MEDS: Heparin 10,000 UNITS/10 ML Vial (for IV use) OTHER PRN (09:50)
--- NOTE | 2018-03-06 16:49 | P.PNIM ---
Subjective Interval history: Follow-up ESRD on HD, probable anoxic brain injury Patient is resting in bed. Denies pain or discomfort. Expresses frustration over not having had a renal biopsy. Educated patient that nephrology would schedule this if his renal function failed to improve. Physical Exam Vital signs: Last Vital Signs Temp 97.8 F 03/06/18 16:00 Pulse 101 H 03/06/18 16:00 Resp 20 03/06/18 16:00 BP 146/82 H 03/06/18 16:00 Pulse Ox 97 03/06/18 16:00 Intake & Output 03/04/18 03/05/18 03/06/18 03/07/18 06:59 06:59 06:59 06:59 Intake Total 450 / 450 442 / 442 1000 / 1000 Output Total 3000 / 3000 350 / 350 400 / 400 4000 / 4000 Balance -2550 / -2550 92 / 92 600 / 600 -4000 / -4000 Narrative: GENERAL:Alert. NAD. SKIN: Warm and dry. NECK: Supple, trachea midline. No JVD . CARDIOVASCULAR: Regular rate and rhythm without murmurs, gallops, or rubs. Hemodialysis PermCath in place right infraclavicular area appears to be intact. RESPIRATORY: Breath sounds equal bilaterally. .No accessory muscle use. GASTROINTESTINAL: Abdomen soft, non-tender, nondistended. +BS MUSCULOSKELETAL: No cyanosis, or edema. Moves feet and arms but weak. Urinary Catheter Management Indwelling Temp Sensing Catheter: Cath placed during this visit: yes, but has since been removed by the nurse Insertion date: 01/14/18 Insertion time: 22:00 Removal date: 01/21/18 Removal time: 18:00 Straight: Cath placed during this visit: yes, but has since been removed by the nurse Insertion date: 03/01/18 Insertion time: 23:15 Removal date: 03/01/18 Removal time: 23:30 Results Labs CBC & Chem 7: 03/05/18 10:17 03/05/18 10:17 Procedures Procedures: Left IJ HD tunneled cath placed 02/08/18 by IR Assessment and Plan Plan 62-year-old white male who was admitted with cardiogenic shock and acute respiratory failure requiring CPR and epinephrine in the field, after being found down at home and being witnessed to possibly have undergone seizure-like activity. Intubation was attempted in the field but were unable to do so, patient was ultimately intubated in the hospital, started on pressors, placed in the ICU on mechanical ventilation. Found to have bilateral pneumothoraces with chest tubes placed, had developed some pneumoperitoneum which surgically deemed might have been a leak from his chest tubes as opposed to an acute surgical abdomen. Patient was started on antibiotics empirically for possible aspiration pneumonia but was ultimately discontinued off of them by infectious disease. Developed rhabdomyolysis with worsening acute renal failure which became sustained, with the patient now undergoing dialysis. Ultimately was discontinued off pressors, cardiology deferred heart cath due to renal failure. Patient had difficulty following commands after he was discontinued off of sedation and after extubation. Had an MRI done on 01/17 which showed no acute findings, only an older right parietal CVA. EEG was done which was unremarkable. Patient seen and evaluated 03/06/18. ESRD on HD -dialysis M, W, Fr. 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 Possible anoxic brain injury -Neurology consulted and following -PT/OT/ST -ok to get out of bed per Neurology with assistance Dysphagia related to encephalopathy -ST rec mechanical soft, thin liquid diet Possible seizure -continue Keppra -EEG was negative NSTEMI -troponins 0.52, 1.89 & 2.37 respectively -cardiology consulted, rec conservative medical management -continue ASA, Coreg, Isosorbide, amlodipine and atorvastatin Bilateral pneumothoraces - stable -chest tube removed 01/28/18 Pneumomediastinum Pneumoperitoneum with right retroperitoneal gas around the right kidney -Likely secondary to bilateral pneumothoraces with no surgical intervention warranted per general surgery Acute respiratory failure -continue supplemental O2 PRN -pulmonary following Cirrhosis -likely secondary to alcohol abuse -continue BB Type II diabetes mellitus, uncontrolled -accuchecks ac/hs with SSI -Continue Aspart Sliding scale insulin. -Will continue Levemir 5 units QHS. Goal BG 140-180. -ADA diet Hypothyroidism -continue Synthroid Normocytic anemia - stable -s/p PRBC transfusion -epogen with dialysis MDM: self Code: DNR GI ppx: Protonix PO DVT ppx: Heparin SQ Discussed with: RN, patient, CM Dispo: awaiting placement Progress Note: Quality VTE Deep Vein Thrombosis/Pulmonary Embolism Present on Admission: No
--- NOTE | 2018-03-06 17:10 | P.PNNP ---
Subjective Interval history: Eating dinner. Hemodialysis today, tolerated well. No shortness of breath, nausea, or vomiting. <LarySmiley - Last Filed: 03/06/18 17:05> Physical Exam Vital signs: Vital Signs 03/05/18 17:52 03/05/18 20:00 03/05/18 22:53 Temperature 97.5 F L 98.8 F Pulse Rate 81 86 93 H Respiratory Rate 18 18 Blood Pressure 109/66 102/63 99/73 L Pulse Oximetry 96 95 03/06/18 00:00 03/06/18 05:10 03/06/18 07:51 Temperature 98.7 F 97.6 F Pulse Rate 89 78 83 Respiratory Rate 18 20 Blood Pressure 133/88 112/71 104/68 Pulse Oximetry 94 L 94 L 03/06/18 16:00 Temperature 97.8 F Pulse Rate 101 H Respiratory Rate 20 Blood Pressure 146/82 H Pulse Oximetry 97 Intake & Output 03/05/18 03/06/18 03/06/18 18:59 06:59 18:59 Intake Total 1000 / 1000 Output Total 400 / 400 4000 / 4000 Balance 600 / 600 -4000 / -4000 Intake: Oral 1000 / 1000 Output: Urine 400 / 400 Hemodialysis Amount 4000 / 4000 Other: # Voids 0 Date of Last Bowel Movement 03/04/18 03/04/18 Narrative: GENERAL:Alert. NAD. SKIN: Warm and dry. NECK: Supple, trachea midline. No JVD . CARDIOVASCULAR: Regular rate and rhythm without murmurs, gallops, or rubs. Hemodialysis PermCath in place right infraclavicular area appears to be intact. RESPIRATORY: Breath sounds equal bilaterally. .No accessory muscle use. GASTROINTESTINAL: Abdomen soft, non-tender, nondistended. +BS MUSCULOSKELETAL: No cyanosis, or edema. Moves feet and arms but weak. - Urinary Catheter Management Indwelling Temp Sensing Catheter Cath placed during this visit: yes, but has since been removed by the nurse Reason for continuing: Decision to DC catheter Insertion date: 01/14/18 Insertion time: 22:00 Removal date: 01/21/18 Removal time: 18:00 Straight Cath placed during this visit: yes, but has since been removed by the nurse Reason for continuing: Not indwelling catheter Insertion date: 03/01/18 Insertion time: 23:15 Removal date: 03/01/18 Removal time: 23:30 <EstefaniagabeSmiley - Last Filed: 03/06/18 17:05> Vital signs: Vital Signs 03/05/18 22:53 03/06/18 00:00 03/06/18 05:10 Temperature 98.7 F Pulse Rate 93 H 89 78 Respiratory Rate 18 Blood Pressure 99/73 L 133/88 112/71 Pulse Oximetry 94 L 03/06/18 07:48 03/06/18 07:51 03/06/18 16:00 Temperature 97.6 F 97.8 F Pulse Rate 76 83 101 H Respiratory Rate 20 20 Blood Pressure 104/68 146/82 H Pulse Oximetry 94 L 97 Intake & Output 03/06/18 03/06/18 03/07/18 06:59 18:59 06:59 Intake Total 1000 / 1000 Output Total 6000 / 6000 Balance -5000 / -5000 Intake: Oral 1000 / 1000 Output: Pleural Fluid 0 / 0 Hemodialysis Amount 6000 / 6000 Other: # Voids 0 0 Date of Last Bowel Movement 03/04/18 03/04/18 - Urinary Catheter Management Indwelling Temp Sensing Catheter Cath placed during this visit: no Straight Cath placed during this visit: no <Brianna Blevins - Last Filed: 03/06/18 20:48> Assessment and Plan - Assessment (1) Acute renal failure Code(s): N17.9 - Acute kidney failure, unspecified Status: Acute Plan: Remains dialysis dependent at this time. First HD 01/17/18 , RIJ PermCath placed 02/08/18 Continue HD MWF schedule for the present. Medications should be adjusted for the patient's estimated GFR if clinically indicated. Avoid agents with significant potential for nephrotoxicity possible including NSAIDs for analgesia, iodine contrast agents. Gadolinium is contraindicated if the GFR is below 30. Continue calcium acetate for hyperphosphatemia. Complements and ADORE normal. SPEP is negative for spike. Creatinine remains elevated. No improvement in renal function this far. Hemodialysis today tolerated well with removal of 4 liters of fluid. Renal biopsy ordered to see the cause of renal failure and see the prognosis for recovery (2) Anemia Code(s): D64.9 - Anemia, unspecified Status: Acute Qualifiers: Anemia type: due to chronic kidney disease Plan: Epogen with dialysis (3) Hypertension Code(s): I10 - Essential (primary) hypertension Status: Acute Plan: Well controlled, will monitor. (4) Diabetes Code(s): E11.9 - Type 2 diabetes mellitus without complications Status: Acute Plan: Maintain blood sugars between 140 mg /dl to 180 mg/dl while hospitalized. Well controlled. <Smiley Barth - Last Filed: 03/06/18 17:05> - Assessment (1) Acute renal failure Code(s): N17.9 - Acute kidney failure, unspecified Status: Acute Plan: Patient seen during HD, and examine, agree with above. Kidney Biopsy to see the cause and prognosis of renal failure. (2) Anemia Code(s): D64.9 - Anemia, unspecified Status: Acute Qualifiers: Anemia type: due to chronic kidney disease (3) Hypertension Code(s): I10 - Essential (primary) hypertension Status: Acute (4) Diabetes Code(s): E11.9 - Type 2 diabetes mellitus without complications Status: Acute <Brianna Blevins - Last Filed: 03/06/18 20:48>
[2018-03-06 17:29] LABS: Prothrombin Time 10.4 sec (9.8-11.6)
[2018-03-06] MEDS: Morphine Inj 4 MG/ML Vial IV.PUSH PRN ×2 (19:55→23:08)
[2018-03-06] MEDS: Insulin Detemir Inj 1,000 UNIT/10 ML Vial SQ SCH (21:55)
[2018-03-07] MEDS: Oral Hygiene Kit OROPHARYNG SCH ×3 (05:25→15:05)
[2018-03-07] MEDS: hydrALAZINE 25 MG Tablet PO SCH ×3 (05:26→22:25)
[2018-03-07] MEDS: Levothyroxine 88 MCG Tablet PO SCH (05:26)
[2018-03-07] MEDS: Morphine Inj 4 MG/ML Vial IV.PUSH PRN ×4 (06:43→22:55)
[2018-03-07] MEDS ORDERED: Lidocaine 1%/Epinephrine 1:100,000 Inj 50 ML Vial ONE (07:53)
[2018-03-07] MEDS ORDERED: fentaNYL Citrate Inj 250 MCG/5 ML Ampul ONE (08:30)
--- NOTE | 2018-03-07 09:27 | P.RAD ---
Post CT Procedure Prog Note - Procedure Information Procedure Date: 03/07/18 Supervising Radiologist: Ronaldo Nuno MD Estimated blood loss (mL): 0 Anesthesia: Conscious Sedation - Plan of Activity Patient to Unit: ROPU Patient condition: Good See PACS Report for procedural detail/treatment.
[2018-03-07 10:18] LABS: Baso # (Auto) 0.3 th/mm3 (0.0-0.2); Baso % (Auto) 2.5 % (0.0-2.0); Eos # (Auto) 0.2 th/mm3 (0.0-0.4); Eos % (Auto) 1.6 % (0.0-4.0); Hematocrit 37.5 % (39.0-51.0); Hemoglobin 12.3 gm/dL (13.0-17.0); Lymph # (Auto) 1.7 th/mm3 (1.0-4.8); Lymph % (Auto) 15.9 % (9.0-44.0); Mean Corpuscular HGB Conc 32.7 % (32.0-36.0); Mean Corpuscular Volume 88.8 fL (80.0-100.0); Mean Platelet Volume 7.9 fL (7.0-11.0); Mono # (Auto) 0.8 th/mm3 (0.0-0.9); Mono % (Auto) 7.9 % (0.0-8.0); Neut # (Auto) 7.6 th/mm3 (1.8-7.7); Neut % (Auto) 72.1 % (16.0-70.0); Platelet Count 375 th/mm3 (150-450); Red Blood Count 4.22 mil/mm3 (4.50-5.90); Red Cell Distribution Width 16.9 % (11.6-17.2); White Blood Count 10.5 th/mm3 (4.0-11.0)
--- NOTE | 2018-03-07 11:59 | CT ---
EXAM DATE: 03/07/2018 10:28 AM EST AGE/SEX: 62 years / Male INDICATIONS: Evaluate renal function. CLINICAL DATA: This is the patient's initial encounter. Patient reports that signs and symptoms have been present for 1 day and indicates a pain score of 0/10. MEDICAL/SURGICAL HISTORY: Diabetes. Diabetes. Renal disease. None. COMPARISON: [facility] [place], ABDOMEN 1V KUB, 01/28/2018. . BIOPSY SITE: Left renal DEVICE(S): 17 gauge Introducer 18 gauge BioPince needle . . PROCEDURE: CT guided Left renal biopsy Prior to the procedure informed consent was obtained. Any appropriate prior imaging studies were rev iewed. Using automated exposure control and adjustment of the mA and/or kV according to patient size, radiat ion dose was kept as low as reasonably achievable to obtain optimal diagnostic quality images. DICOM format image data is available electronically for review and comparison. The site was prepped in a sterile fashion. Full sterile technique was used, including cap, mask, james rile gloves and gown and a large sterile sheet. Hand hygiene and 2% chlorhexidine and/or betadine/al cohol prep was utilized per protocol for cutaneous antisepsis. The skin and subcutaneous tissues wer e infiltrated with local anesthetic solution. With CT guidance the previously identified target was localized. Biopsy was performed using the presc ribed needle as above. Adequate hemostasis was obtained with compression at the puncture site. Follow-up CT scan reveals no hemorrhage. The patient tolerated the procedure well and there were no complications. The patient was returned to the Radiology Outpatient Unit in stable condition. FINDINGS: No evidence for hemorrhage following biopsy. CONCLUSION: 1. Uncomplicated CT guided biopsy. Electronically signed by: Ronaldo Nuno MD Board Certified Radiologist 03/07/2018 11:58 AM EST
[2018-03-07] MEDS ORDERED: Morphine Inj 4 MG/ML Vial IV.PUSH ONE (12:00)
[2018-03-07] MEDS: Insulin NovoLOG Aspart Correctional Sugar Inj SQ SCH ×4 (12:03→20:24)
[2018-03-07] MEDS: Chlorhexidine 0.12% Oral Kit 15 ML UDC OROPHARYNG SCH ×2 (12:03→19:22)
[2018-03-07] MEDS: Artificial Tears Opth Drops 15 ML Bottle EACH EYE SCH ×2 (12:03→15:05)
[2018-03-07] MEDS: Carvedilol 6.25 MG Tablet PO SCH ×2 (12:04→20:24)
[2018-03-07] MEDS: Senna/Docusate Sodium 8.6/50 MG Tablet PO SCH ×2 (12:04→20:25)
[2018-03-07] MEDS: Folic Acid 1 MG Tablet PO SCH (12:04)
[2018-03-07] MEDS: Calcium Acetate 667 MG Capsule PO SCH ×3 (12:04→17:30)
[2018-03-07] MEDS: amLODIPine 5 MG Tablet PO SCH (12:04)
[2018-03-07] MEDS: levETIRAcetam 500 MG Tablet PO SCH ×2 (12:12→20:24)
--- NOTE | 2018-03-07 13:10 | P.PNNP ---
Subjective Interval history: Complaining of increased pain at kidney biopsy site. Requesting fentanyl for pain. <Smiley Barth - Last Filed: 03/07/18 13:07> Physical Exam Vital signs: Vital Signs 03/06/18 16:00 03/06/18 20:00 03/06/18 23:50 Temperature 97.8 F 98.9 F Pulse Rate 101 H 89 89 Respiratory Rate 20 18 Blood Pressure 146/82 H 101/74 Pulse Oximetry 97 96 03/07/18 00:00 03/07/18 04:00 03/07/18 07:55 Temperature 98.7 F 98.8 F 98 F Pulse Rate 87 90 91 H Respiratory Rate 18 18 Blood Pressure 95/61 L 109/80 102/60 Pulse Oximetry 95 96 20 L 03/07/18 09:40 03/07/18 09:55 03/07/18 10:10 Temperature 97.6 F Pulse Rate 90 90 88 Respiratory Rate 20 20 20 Blood Pressure 116/79 103/76 107/67 Pulse Oximetry 91 L 95 95 Intake & Output 03/06/18 03/07/18 03/07/18 18:59 06:59 18:59 Intake Total 1000 / 1000 60 / 60 Output Total 6000 / 6000 Balance -5000 / -5000 60 / 60 Weight 94.9 kg Intake: Oral 1000 / 1000 60 / 60 Output: Pleural Fluid 0 / 0 Hemodialysis Amount 6000 / 6000 Other: # Voids 0 Date of Last Bowel Movement 03/04/18 03/04/18 Narrative: GENERAL:Alert. NAD. SKIN: Warm and dry. NECK: Supple, trachea midline. No JVD . CARDIOVASCULAR: Regular rate and rhythm without murmurs, gallops, or rubs. Hemodialysis PermCath in place right infraclavicular area appears to be intact. RESPIRATORY: Breath sounds equal bilaterally. .No accessory muscle use. GASTROINTESTINAL: Abdomen soft, non-tender, nondistended. +BS MUSCULOSKELETAL: No cyanosis, or edema. Moves feet and arms but weak. - Urinary Catheter Management Indwelling Temp Sensing Catheter Cath placed during this visit: yes, but has since been removed by the nurse Reason for continuing: Decision to DC catheter Insertion date: 01/14/18 Insertion time: 22:00 Removal date: 01/21/18 Removal time: 18:00 Straight Cath placed during this visit: yes, but has since been removed by the nurse Reason for continuing: Not indwelling catheter Insertion date: 03/07/18 Insertion time: 07:01 Removal date: 03/01/18 Removal time: 23:30 <Smiley Barth - Last Filed: 03/07/18 13:07> Vital signs: Vital Signs 03/06/18 23:50 03/07/18 00:00 03/07/18 04:00 Temperature 98.7 F 98.8 F Pulse Rate 89 87 90 Respiratory Rate 18 18 Blood Pressure 95/61 L 109/80 Pulse Oximetry 95 96 03/07/18 07:55 03/07/18 08:00 03/07/18 09:40 Temperature 98 F 97.6 F Pulse Rate 91 H 88 90 Respiratory Rate 20 Blood Pressure 102/60 116/79 Pulse Oximetry 20 L 91 L 03/07/18 09:55 03/07/18 10:10 03/07/18 12:00 Temperature 98.3 F Pulse Rate 90 88 92 H Respiratory Rate 20 20 20 Blood Pressure 103/76 107/67 120/73 Pulse Oximetry 95 95 95 03/07/18 16:00 03/07/18 20:00 Temperature 98 F Pulse Rate 95 H Respiratory Rate 20 Blood Pressure 130/65 Pulse Oximetry 96 95 Intake & Output 03/07/18 03/07/18 03/08/18 06:59 18:59 06:59 Intake Total 60 / 60 Balance 60 / 60 Weight 94.9 kg Intake: Oral 60 / 60 Other: Date of Last Bowel Movement 03/04/18 - Urinary Catheter Management Indwelling Temp Sensing Catheter Cath placed during this visit: no Straight Cath placed during this visit: no <Brianna Blevins - Last Filed: 03/07/18 21:07> Assessment and Plan - Assessment (1) Acute renal failure Code(s): N17.9 - Acute kidney failure, unspecified Status: Acute Plan: Remains dialysis dependent at this time. First HD 01/17/18 , RIJ PermCath placed 02/08/18 Continue HD MWF schedule for the present. Medications should be adjusted for the patient's estimated GFR if clinically indicated. Avoid agents with significant potential for nephrotoxicity possible including NSAIDs for analgesia, iodine contrast agents. Gadolinium is contraindicated if the GFR is below 30. Continue calcium acetate for hyperphosphatemia. S/P renal biopsy today Hemodialysis tomorrow will remove fluid as tolerated. labs in AM (2) Anemia Code(s): D64.9 - Anemia, unspecified Status: Acute Qualifiers: Anemia type: due to chronic kidney disease Plan: Epogen with dialysis (3) Hypertension Code(s): I10 - Essential (primary) hypertension Status: Acute Plan: Well controlled, will monitor. (4) Diabetes Code(s): E11.9 - Type 2 diabetes mellitus without complications Status: Acute Plan: Maintain blood sugars between 140 mg /dl to 180 mg/dl while hospitalized. Well controlled. <Smiley Barth - Last Filed: 03/07/18 13:07> - Assessment (1) Acute renal failure Code(s): N17.9 - Acute kidney failure, unspecified Status: Acute Plan: Patient seen and examined, agree with above. Patient has kidney Biopsy done, will follow. Continue HD as schedule, next in AM. (2) Anemia Code(s): D64.9 - Anemia, unspecified Status: Acute Qualifiers: Anemia type: due to chronic kidney disease (3) Hypertension Code(s): I10 - Essential (primary) hypertension Status: Acute (4) Diabetes Code(s): E11.9 - Type 2 diabetes mellitus without complications Status: Acute <Brianna Blevins - Last Filed: 03/07/18 21:07>
[2018-03-07 14:30] LABS: Baso # (Auto) 0.2 th/mm3 (0.0-0.2); Baso % (Auto) 1.2 % (0.0-2.0); Eos # (Auto) 0.1 th/mm3 (0.0-0.4); Hematocrit 40.7 % (39.0-51.0); Hemoglobin 13.4 gm/dL (13.0-17.0); Lymph # (Auto) 1.1 th/mm3 (1.0-4.8); Lymph % (Auto) 8.5 % (9.0-44.0); Mean Corpuscular HGB Conc 32.8 % (32.0-36.0); Mean Corpuscular Hemoglobin 29.6 pg (27.0-34.0); Mean Corpuscular Volume 90.1 fL (80.0-100.0); Mean Platelet Volume 7.9 fL (7.0-11.0); Mono # (Auto) 0.6 th/mm3 (0.0-0.9); Mono % (Auto) 4.4 % (0.0-8.0); Neut # (Auto) 11.4 th/mm3 (1.8-7.7); Neut % (Auto) 84.9 % (16.0-70.0); Platelet Count 365 th/mm3 (150-450); Red Blood Count 4.52 mil/mm3 (4.50-5.90); White Blood Count 13.4 th/mm3 (4.0-11.0)
[2018-03-07] MEDS ORDERED: HYDROmorphone PF Inj 1 MG/ML Ampul IV.PUSH ONE (15:00)
--- NOTE | 2018-03-07 16:24 | P.PNIM ---
Subjective Interval history: Follow-up ESRD on HD, probable anoxic brain injury Patient seen and examined status post renal biopsy. He complains of severe pain and points to his left flank area. RN at bedside. Patient received Morphine for pain. Patient is agitated secondary to his pain level. Physical Exam Vital signs: Last Vital Signs Temp 98 F 03/07/18 16:00 Pulse 95 H 03/07/18 16:00 Resp 20 03/07/18 16:00 BP 130/65 03/07/18 16:00 Pulse Ox 96 03/07/18 16:00 Intake & Output 03/05/18 03/06/18 03/07/18 03/08/18 06:59 06:59 06:59 06:59 Intake Total 442 / 442 1000 / 1000 1060 / 1060 Output Total 350 / 350 400 / 400 6000 / 6000 Balance 92 / 92 600 / 600 -4940 / -4940 Weight 94.9 kg Narrative: GENERAL:Alert. NAD. SKIN: Warm and dry. NECK: Supple, trachea midline. No JVD . CARDIOVASCULAR: Regular rate and rhythm without murmurs, gallops, or rubs. Hemodialysis PermCath in place right infraclavicular area appears to be intact. RESPIRATORY: Breath sounds equal bilaterally. .No accessory muscle use. GASTROINTESTINAL: Abdomen soft, non-tender, nondistended. +BS MUSCULOSKELETAL: No cyanosis, or edema. Moves feet and arms but weak. Urinary Catheter Management Indwelling Temp Sensing Catheter: Cath placed during this visit: yes, but has since been removed by the nurse Insertion date: 01/14/18 Insertion time: 22:00 Removal date: 01/21/18 Removal time: 18:00 Straight: Cath placed during this visit: yes, but has since been removed by the nurse Insertion date: 03/07/18 Insertion time: 07:01 Removal date: 03/01/18 Removal time: 23:30 Results Labs CBC & Chem 7: 03/07/18 14:19 03/05/18 10:17 Imaging Imaging: Impressions Renal Biopsy CT 03/07/18 00:00 CONCLUSION: 1. Uncomplicated CT guided biopsy. Procedures Procedures: Left IJ HD tunneled cath placed 02/08/18 by IR Assessment and Plan Plan 62-year-old white male who was admitted with cardiogenic shock and acute respiratory failure requiring CPR and epinephrine in the field, after being found down at home and being witnessed to possibly have undergone seizure-like activity. Intubation was attempted in the field but were unable to do so, patient was ultimately intubated in the hospital, started on pressors, placed in the ICU on mechanical ventilation. Found to have bilateral pneumothoraces with chest tubes placed, had developed some pneumoperitoneum which surgically deemed might have been a leak from his chest tubes as opposed to an acute surgical abdomen. Patient was started on antibiotics empirically for possible aspiration pneumonia but was ultimately discontinued off of them by infectious disease. Developed rhabdomyolysis with worsening acute renal failure which became sustained, with the patient now undergoing dialysis. Ultimately was discontinued off pressors, cardiology deferred heart cath due to renal failure. Patient had difficulty following commands after he was discontinued off of sedation and after extubation. Had an MRI done on 01/17 which showed no acute findings, only an older right parietal CVA. EEG was done which was unremarkable. Patient seen and evaluated 03/07/18. ESRD on HD -dialysis M, W, Fr. 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 Possible anoxic brain injury -Neurology consulted and following -PT/OT/ST -ok to get out of bed per Neurology with assistance Dysphagia related to encephalopathy -ST rec mechanical soft, thin liquid diet Possible seizure -continue Keppra -EEG was negative NSTEMI -troponins 0.52, 1.89 & 2.37 respectively -cardiology consulted, rec conservative medical management -continue ASA, Coreg, Isosorbide, amlodipine and atorvastatin Bilateral pneumothoraces - stable -chest tube removed 01/28/18 Pneumomediastinum Pneumoperitoneum with right retroperitoneal gas around the right kidney -Likely secondary to bilateral pneumothoraces with no surgical intervention warranted per general surgery Acute respiratory failure -continue supplemental O2 PRN -pulmonary following Cirrhosis -likely secondary to alcohol abuse -continue BB Type II diabetes mellitus, uncontrolled -accuchecks ac/hs with SSI -Continue Aspart Sliding scale insulin. -Will continue Levemir 5 units QHS. Goal BG 140-180. -ADA diet Hypothyroidism -continue Synthroid Normocytic anemia - stable -s/p PRBC transfusion -epogen with dialysis MDM: self Code: DNR GI ppx: Protonix PO DVT ppx: Heparin SQ Discussed with: RN, patient, CM Dispo: awaiting placement Progress Note: Quality VTE Deep Vein Thrombosis/Pulmonary Embolism Present on Admission: No
[2018-03-07] MEDS: Insulin Detemir Inj 1,000 UNIT/10 ML Vial SQ SCH (20:24)
[2018-03-07] MEDS: QUEtiapine 25 MG Tablet PO SCH (22:25)
[2018-03-08] MEDS: Oral Hygiene Kit OROPHARYNG SCH ×5 (00:11→23:49)
[2018-03-08] MEDS: Artificial Tears Opth Drops 15 ML Bottle EACH EYE SCH ×4 (00:11→23:49)
[2018-03-08] MEDS: Levothyroxine 88 MCG Tablet PO SCH (05:45)
[2018-03-08] MEDS: hydrALAZINE 25 MG Tablet PO SCH ×3 (05:45→23:48)
[2018-03-08 05:58] LABS: Albumin 3.5 g/dL (3.4-5.0); Calcium 9.1 mg/dL (8.5-10.1); Phosphorus 3.7 mg/dL (2.5-4.9); Potassium 4.3 meq/L (3.5-5.1)
[2018-03-08] MEDS: Insulin NovoLOG Aspart Correctional Sugar Inj SQ SCH ×4 (08:51→20:41)
[2018-03-08] MEDS: Chlorhexidine 0.12% Oral Kit 15 ML UDC OROPHARYNG SCH ×2 (08:51→20:41)
[2018-03-08] MEDS: levETIRAcetam 500 MG Tablet PO SCH ×2 (08:52→20:26)
--- NOTE | 2018-03-08 10:32 | P.PNNP ---
Subjective Interval history: Seen during hemodialysis tolerating well. Pain from biopsy site has improved. No ecchymotic area noted. <Smiley Barth - Last Filed: 03/08/18 10:27> Physical Exam Vital signs: Vital Signs 03/07/18 12:00 03/07/18 16:00 03/07/18 20:00 Temperature 98.3 F 98 F 99.3 F Pulse Rate 92 H 95 H 99 H Respiratory Rate 20 20 18 Blood Pressure 120/73 130/65 128/76 Pulse Oximetry 95 96 94 L 03/08/18 00:00 03/08/18 00:05 03/08/18 04:00 Temperature 97.2 F L 98 F Pulse Rate 84 84 88 Respiratory Rate 18 18 Blood Pressure 130/75 136/73 Pulse Oximetry 92 L 94 L 03/08/18 07:49 03/08/18 08:00 03/08/18 08:43 Temperature 98.1 F Pulse Rate 87 Respiratory Rate 16 18 Blood Pressure 130/74 Pulse Oximetry 95 95 03/08/18 09:50 Temperature Pulse Rate 84 Respiratory Rate Blood Pressure Pulse Oximetry Intake & Output 03/07/18 03/08/18 03/08/18 18:59 06:59 18:59 Output Total 100 / 100 Balance -100 / -100 Weight 94.9 kg 94.9 kg Output: Urine 100 / 100 Other: # Voids 0 Date of Last Bowel Movement 03/04/18 Narrative: GENERAL:Alert. NAD. SKIN: Warm and dry. NECK: Supple, trachea midline. No JVD . CARDIOVASCULAR: Regular rate and rhythm without murmurs, gallops, or rubs. Hemodialysis PermCath in place right infraclavicular area appears to be intact. RESPIRATORY: Breath sounds equal bilaterally. .No accessory muscle use. GASTROINTESTINAL: Abdomen soft, non-tender, nondistended. +BS MUSCULOSKELETAL: No cyanosis, or edema. Moves feet and arms but weak. - Urinary Catheter Management Indwelling Temp Sensing Catheter Cath placed during this visit: yes, but has since been removed by the nurse Reason for continuing: Decision to DC catheter Insertion date: 01/14/18 Insertion time: 22:00 Removal date: 01/21/18 Removal time: 18:00 Straight Cath placed during this visit: yes, but has since been removed by the nurse Reason for continuing: Not indwelling catheter Insertion date: 03/07/18 Insertion time: 07:01 Removal date: 03/01/18 Removal time: 23:30 <Smilye Barth - Last Filed: 03/08/18 10:27> Vital signs: Vital Signs 03/08/18 00:00 03/08/18 00:05 03/08/18 04:00 Temperature 97.2 F L 98 F Pulse Rate 84 84 88 Respiratory Rate 18 18 Blood Pressure 130/75 136/73 Pulse Oximetry 92 L 94 L 03/08/18 07:49 03/08/18 08:00 03/08/18 08:43 Temperature 98.1 F Pulse Rate 87 Respiratory Rate 16 18 Blood Pressure 130/74 Pulse Oximetry 95 95 03/08/18 09:50 03/08/18 13:34 03/08/18 15:49 Temperature 98.7 F 98.5 F Pulse Rate 84 102 H 99 H Respiratory Rate 18 18 Blood Pressure 133/73 100/63 Pulse Oximetry 93 L 94 L 03/08/18 17:26 03/08/18 20:09 Temperature 99.1 F Pulse Rate 92 H Respiratory Rate 18 Blood Pressure 126/67 Pulse Oximetry 94 L 92 L Intake & Output 03/08/18 03/08/18 03/09/18 06:59 18:59 06:59 Output Total 100 / 100 1999 Balance -100 / -100 -1999 Weight 94.9 kg 94.9 kg Output: Urine 100 / 100 Hemodialysis Amount 1999 Other: # Voids 1 Date of Last Bowel Movement 03/04/18 - Urinary Catheter Management Indwelling Temp Sensing Catheter Cath placed during this visit: no Straight Cath placed during this visit: no <Brianna Blevins - Last Filed: 03/08/18 20:24> Assessment and Plan - Assessment (1) Acute renal failure Code(s): N17.9 - Acute kidney failure, unspecified Status: Acute Plan: Remains dialysis dependent at this time. First HD 01/17/18 , RIJ PermCath placed 02/08/18 Continue HD MWF schedule for the present. Medications should be adjusted for the patient's estimated GFR if clinically indicated. Avoid agents with significant potential for nephrotoxicity possible including NSAIDs for analgesia, iodine contrast agents. Gadolinium is contraindicated if the GFR is below 30. Continue calcium acetate for hyperphosphatemia. Phosphorus 3.7 S/P renal biopsy 03/07, awaiting results. Seen during HD, 3 k bath, plan to remove 2 liters of fluid Thus far no sign of renal recovery (2) Anemia Code(s): D64.9 - Anemia, unspecified Status: Acute Qualifiers: Anemia type: due to chronic kidney disease Plan: Epogen with dialysis (3) Hypertension Code(s): I10 - Essential (primary) hypertension Status: Acute Plan: Well controlled, will monitor. (4) Diabetes Code(s): E11.9 - Type 2 diabetes mellitus without complications Status: Acute Plan: Maintain blood sugars between 140 mg /dl to 180 mg/dl while hospitalized. Well controlled. <Smiley Barth - Last Filed: 03/08/18 10:27> - Assessment (1) Acute renal failure Code(s): N17.9 - Acute kidney failure, unspecified Status: Acute Plan: Patient seen and examined, agree with above. Kidney Biopsy results called to me, patient has ATN and cast Nephropathy, due to Rhabdo. HD as needed, watch for renal recovery. (2) Anemia Code(s): D64.9 - Anemia, unspecified Status: Acute Qualifiers: Anemia type: due to chronic kidney disease (3) Hypertension Code(s): I10 - Essential (primary) hypertension Status: Acute (4) Diabetes Code(s): E11.9 - Type 2 diabetes mellitus without complications Status: Acute <Brianna Blevins - Last Filed: 03/08/18 20:24>
[2018-03-08] MEDS: Heparin 10,000 UNITS/10 ML Vial (for IV use) OTHER PRN (12:25)
[2018-03-08] MEDS: Folic Acid 1 MG Tablet PO SCH (13:41)
[2018-03-08] MEDS: amLODIPine 5 MG Tablet PO SCH (13:41)
[2018-03-08] MEDS: Senna/Docusate Sodium 8.6/50 MG Tablet PO SCH ×2 (13:42→20:27)
[2018-03-08] MEDS: Calcium Acetate 667 MG Capsule PO SCH ×3 (13:42→17:44)
[2018-03-08] MEDS: Carvedilol 6.25 MG Tablet PO SCH ×2 (13:42→20:27)
--- NOTE | 2018-03-08 16:19 | P.PNIM ---
Subjective Interval history: Follow-up ESRD on HD, s/p renal biopsy, suspected anoxic brain injury Patient seen status post dialysis. He is resting in bed with his eyes closed. Responds when being asked questions. Patient denies pain to renal biopsy site. No distress noted. RN states no acute events overnight. Physical Exam Vital signs: Last Vital Signs Temp 98.7 F 03/08/18 13:34 Pulse 102 H 03/08/18 13:34 Resp 18 03/08/18 13:34 BP 133/73 03/08/18 13:34 Pulse Ox 93 L 03/08/18 13:34 Intake & Output 03/06/18 03/07/18 03/08/18 03/09/18 06:59 06:59 06:59 06:59 Intake Total 1000 / 1000 1060 / 1060 Output Total 400 / 400 6000 / 6000 100 / 100 1999 / 1999 Balance 600 / 600 -4940 / -4940 -100 / -100 -1999 / -1999 Weight 94.9 kg 94.9 kg 94.9 kg Narrative: GENERAL: no acute distress, well developed, well nourished SKIN: Warm and dry. NECK: Supple, trachea midline. No JVD . CARDIOVASCULAR: Regular rate and rhythm without murmurs, gallops, or rubs. Hemodialysis PermCath in place right infraclavicular area appears to be intact. RESPIRATORY: Breath sounds equal bilaterally. No accessory muscle use. GASTROINTESTINAL: Abdomen soft, non-tender, nondistended. +BS MUSCULOSKELETAL: No cyanosis, or edema. Moves feet and arms but weak. Urinary Catheter Management Indwelling Temp Sensing Catheter: Cath placed during this visit: yes, but has since been removed by the nurse Insertion date: 01/14/18 Insertion time: 22:00 Removal date: 01/21/18 Removal time: 18:00 Straight: Cath placed during this visit: yes, but has since been removed by the nurse Insertion date: 03/07/18 Insertion time: 07:01 Removal date: 03/01/18 Removal time: 23:30 Results Labs CBC & Chem 7: 03/07/18 14:19 03/08/18 05:17 Procedures Procedures: Left IJ HD tunneled cath placed 02/08/18 by IR Assessment and Plan Plan 62-year-old white male who was admitted with cardiogenic shock and acute respiratory failure requiring CPR and epinephrine in the field, after being found down at home and being witnessed to possibly have undergone seizure-like activity. Intubation was attempted in the field but were unable to do so, patient was ultimately intubated in the hospital, started on pressors, placed in the ICU on mechanical ventilation. Found to have bilateral pneumothoraces with chest tubes placed, had developed some pneumoperitoneum which surgically deemed might have been a leak from his chest tubes as opposed to an acute surgical abdomen. Patient was started on antibiotics empirically for possible aspiration pneumonia but was ultimately discontinued off of them by infectious disease. Developed rhabdomyolysis with worsening acute renal failure which became sustained, with the patient now undergoing dialysis. Ultimately was discontinued off pressors, cardiology deferred heart cath due to renal failure. Patient had difficulty following commands after he was discontinued off of sedation and after extubation. Had an MRI done on 01/17 which showed no acute findings, only an older right parietal CVA. EEG was done which was unremarkable. ESRD on HD -dialysis M, W, Fr. 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 Possible anoxic brain injury -Neurology consulted and following -PT/OT/ST -ok to get out of bed per Neurology with assistance Dysphagia related to encephalopathy -ST rec mechanical soft, thin liquid diet Possible seizure -continue Keppra -EEG was negative NSTEMI -troponins 0.52, 1.89 & 2.37 respectively -cardiology consulted, rec conservative medical management -continue ASA, Coreg, Isosorbide, amlodipine and atorvastatin Bilateral pneumothoraces - stable -chest tube removed 01/28/18 Pneumomediastinum Pneumoperitoneum with right retroperitoneal gas around the right kidney -Likely secondary to bilateral pneumothoraces with no surgical intervention warranted per general surgery Acute respiratory failure -continue supplemental O2 PRN -pulmonary following Cirrhosis -likely secondary to alcohol abuse -continue BB Type II diabetes mellitus, uncontrolled -accuchecks ac/hs with SSI -Continue Aspart Sliding scale insulin. -Will continue Levemir 5 units QHS. Goal BG 140-180. -ADA diet Hypothyroidism -continue Synthroid Normocytic anemia - stable -s/p PRBC transfusion -epogen with dialysis MDM: self Code: DNR GI ppx: Protonix PO DVT ppx: Heparin SQ Discussed with: RN, patient, CM Dispo: awaiting placement once cleared by nephrology Progress Note: Quality VTE Deep Vein Thrombosis/Pulmonary Embolism Present on Admission: No
[2018-03-08] MEDS: QUEtiapine 25 MG Tablet PO SCH (20:27)
[2018-03-08] MEDS: Morphine Inj 4 MG/ML Vial IV.PUSH PRN (20:27)
[2018-03-08] MEDS: Insulin Detemir Inj 1,000 UNIT/10 ML Vial SQ SCH (21:09)
[2018-03-09] MEDS: Oral Hygiene Kit OROPHARYNG SCH ×3 (04:12→15:47)
[2018-03-09] MEDS: Levothyroxine 88 MCG Tablet PO SCH (06:12)
[2018-03-09] MEDS: hydrALAZINE 25 MG Tablet PO SCH ×3 (06:12→21:51)
[2018-03-09] MEDS: Chlorhexidine 0.12% Oral Kit 15 ML UDC OROPHARYNG SCH ×2 (07:14→20:28)
[2018-03-09] MEDS: Insulin NovoLOG Aspart Correctional Sugar Inj SQ SCH ×4 (07:14→21:47)
[2018-03-09] MEDS: Artificial Tears Opth Drops 15 ML Bottle EACH EYE SCH ×2 (07:14→15:48)
[2018-03-09] MEDS: Carvedilol 6.25 MG Tablet PO SCH ×2 (08:30→20:29)
[2018-03-09] MEDS: amLODIPine 5 MG Tablet PO SCH (08:30)
[2018-03-09] MEDS: Calcium Acetate 667 MG Capsule PO SCH ×3 (08:31→17:23)
[2018-03-09] MEDS: Senna/Docusate Sodium 8.6/50 MG Tablet PO SCH ×2 (08:31→20:29)
[2018-03-09] MEDS: levETIRAcetam 500 MG Tablet PO SCH ×2 (08:32→20:30)
[2018-03-09] MEDS: Folic Acid 1 MG Tablet PO SCH (08:32)
[2018-03-09] MEDS: Morphine Inj 4 MG/ML Vial IV.PUSH PRN ×3 (13:24→20:34)
--- NOTE | 2018-03-09 16:06 | P.PNNP ---
Subjective Interval history: NO acute complaints, tolerated HD Sunday Physical Exam Vital signs: Vital Signs 03/08/18 17:26 03/08/18 20:09 03/08/18 23:52 Temperature 99.1 F Pulse Rate 92 H 85 Respiratory Rate 18 Blood Pressure 126/67 Pulse Oximetry 94 L 92 L 03/09/18 00:00 03/09/18 04:00 03/09/18 08:00 Temperature 97.7 F 97.9 F Pulse Rate 88 83 98 H Respiratory Rate 18 18 Blood Pressure 91/63 L 120/77 Pulse Oximetry 96 92 L 03/09/18 08:29 03/09/18 12:00 03/09/18 12:28 Temperature 97.3 F L 97.7 F Pulse Rate 101 H 82 86 Respiratory Rate 16 18 Blood Pressure 98/73 L 113/67 Pulse Oximetry 95 90 L 03/09/18 13:26 Temperature Pulse Rate Respiratory Rate 16 Blood Pressure Pulse Oximetry Intake & Output 03/08/18 03/09/18 03/09/18 18:59 06:59 18:59 Intake Total 240 / 240 Output Total 1999 Balance -1999 / -1999 240 / 240 Weight 94.9 kg 94.8 kg Intake: Oral 240 / 240 Output: Hemodialysis Amount 1999 Other: # Voids 1 Date of Last Bowel Movement 03/07/18 03/07/18 - Constitutional no acute distress - Routine HEENT Exam Head: Present: normocephalic Eye: Present: EOMI ENT: Present: mucous membranes moist - Routine Neck Exam Present: supple - Routine Respiratory Exam Present: decreased breath sounds - Routine Cardiovascular Exam Present: RRR - Routine Abdominal Exam Present: soft - Routine Extremities Exam Present: vascular access - Routine Skin Exam Present: intact - Routine Neurological Exam Present: alert, oriented X3 - Detailed Neurological Exam: Coma Scale Eye Opening: Spontaneous - Routine Psychiatric Exam Present: normal affect - Urinary Catheter Management Indwelling Temp Sensing Catheter Cath placed during this visit: yes, but has since been removed by the nurse Reason for continuing: Decision to DC catheter Insertion date: 01/14/18 Insertion time: 22:00 Removal date: 01/21/18 Removal time: 18:00 Straight Cath placed during this visit: yes, but has since been removed by the nurse Reason for continuing: Not indwelling catheter Insertion date: 01/03/19 Insertion time: 07:01 Removal date: 03/01/18 Removal time: 23:30 Assessment and Plan - Assessment (1) Acute renal failure Code(s): N17.9 - Acute kidney failure, unspecified Status: Acute Plan: Remains dialysis dependent at this time. First HD 01/17/18 , RIJ PermCath placed 02/08/18 Continue HD MWF schedule for the present. 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 HD done Sunday, next HD Sunday Monitor UOP and electrolytes for renal recovery.. Medications should be adjusted for the patient's estimated GFR if clinically indicated. Avoid agents with significant potential for nephrotoxicity possible including NSAIDs for analgesia, iodine contrast agents. Gadolinium is contraindicated if the GFR is below 30. Continue calcium acetate for hyperphosphatemia. (2) Anemia Code(s): D64.9 - Anemia, unspecified Status: Acute Qualifiers: Anemia type: due to chronic kidney disease Plan: Epogen with dialysis (3) Hypertension Code(s): I10 - Essential (primary) hypertension Status: Acute Plan: Well controlled, will monitor. (4) Diabetes Code(s): E11.9 - Type 2 diabetes mellitus without complications Status: Acute Plan: Maintain blood sugars between 140 mg /dl to 180 mg/dl while hospitalized. Well controlled.
--- NOTE | 2018-03-09 17:46 | P.PNIM ---
Subjective Interval history: Patient seen lying in bed. Says "hi" and tells me that everything is fine. Nursing reports no adverse events. Physical Exam Vital signs: Last Vital Signs Temp 97.7 F 03/09/18 16:32 Pulse 96 H 03/09/18 16:32 Resp 20 03/09/18 16:32 BP 117/84 03/09/18 16:32 Pulse Ox 92 L 03/09/18 16:32 Intake & Output 03/07/18 03/08/18 03/09/18 03/10/18 06:59 06:59 06:59 06:59 Intake Total 1060 / 1060 240 / 240 Output Total 6000 / 6000 100 / 100 1999 / 1999 Balance -4940 / -4940 -100 / -100 -1760 / -1760 Weight 94.9 kg 94.9 kg 94.8 kg Narrative: GENERAL: no acute distress, well developed, well nourished. Poor historian SKIN: Warm and dry. CARDIOVASCULAR: Regular rate and rhythm without murmurs, gallops, or rubs. Hemodialysis PermCath in place right infraclavicular area appears to be intact. RESPIRATORY: Breath sounds equal bilaterally. No accessory muscle use. GASTROINTESTINAL: Abdomen soft, non-tender, nondistended. +BS MUSCULOSKELETAL: No cyanosis, or edema. Moves feet and arms but weak. Urinary Catheter Management Indwelling Temp Sensing Catheter: Cath placed during this visit: yes, but has since been removed by the nurse Insertion date: 01/14/18 Insertion time: 22:00 Removal date: 01/21/18 Removal time: 18:00 Straight: Cath placed during this visit: yes, but has since been removed by the nurse Insertion date: 03/07/18 Insertion time: 07:01 Removal date: 03/01/18 Removal time: 23:30 Results Labs CBC & Chem 7: 03/07/18 14:19 03/08/18 05:17 Procedures Procedures: Left IJ HD tunneled cath placed 02/08/18 by IR Assessment and Plan Plan 62-year-old white male who was admitted with cardiogenic shock and acute respiratory failure requiring CPR and epinephrine in the field, after being found down at home and being witnessed to possibly have undergone seizure-like activity. Intubation was attempted in the field but were unable to do so, patient was ultimately intubated in the hospital, started on pressors, placed in the ICU on mechanical ventilation. Found to have bilateral pneumothoraces with chest tubes placed, had developed some pneumoperitoneum which surgically deemed might have been a leak from his chest tubes as opposed to an acute surgical abdomen. Patient was started on antibiotics empirically for possible aspiration pneumonia but was ultimately discontinued off of them by infectious disease. Developed rhabdomyolysis with worsening acute renal failure which became sustained, with the patient now undergoing dialysis. Ultimately was discontinued off pressors, cardiology deferred heart cath due to renal failure. Patient had difficulty following commands after he was discontinued off of sedation and after extubation. Had an MRI done on 01/17 which showed no acute findings, only an older right parietal CVA. EEG was done which was unremarkable. ESRD on HD -dialysis M, W, Fr. 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 Possible anoxic brain injury -Neurology consulted and following -PT/OT/ST -ok to get out of bed per Neurology with assistance Dysphagia related to encephalopathy -ST rec mechanical soft, thin liquid diet Possible seizure -continue Keppra -EEG was negative NSTEMI -troponins 0.52, 1.89 & 2.37 respectively -cardiology consulted, rec conservative medical management -continue ASA, Coreg, Isosorbide, amlodipine and atorvastatin Bilateral pneumothoraces - stable -chest tube removed 01/28/18 Pneumomediastinum Pneumoperitoneum with right retroperitoneal gas around the right kidney -Likely secondary to bilateral pneumothoraces with no surgical intervention warranted per general surgery Acute respiratory failure -continue supplemental O2 PRN -pulmonary following Cirrhosis -likely secondary to alcohol abuse -continue BB Type II diabetes mellitus, uncontrolled -accuchecks ac/hs with SSI -Continue Aspart Sliding scale insulin. -Will continue Levemir 5 units QHS. Goal BG 140-180. -ADA diet Hypothyroidism -continue Synthroid Normocytic anemia - stable -s/p PRBC transfusion -epogen with dialysis MDM: self Code: DNR GI ppx: Protonix PO DVT ppx: Heparin SQ Discussed with: RN, patient, CM Dispo: awaiting placement once cleared by nephrology Progress Note: Quality VTE Deep Vein Thrombosis/Pulmonary Embolism Present on Admission: No
[2018-03-09] MEDS: QUEtiapine 25 MG Tablet PO SCH (20:30)
[2018-03-09] MEDS: Insulin Detemir Inj 1,000 UNIT/10 ML Vial SQ SCH (21:42)
[2018-03-10] MEDS: Artificial Tears Opth Drops 15 ML Bottle EACH EYE SCH ×3 (01:15→15:01)
[2018-03-10] MEDS: Oral Hygiene Kit OROPHARYNG SCH ×4 (01:15→15:01)
[2018-03-10] MEDS: hydrALAZINE 25 MG Tablet PO SCH ×2 (05:49→14:12)
[2018-03-10] MEDS: Levothyroxine 88 MCG Tablet PO SCH (05:49)
[2018-03-10] MEDS: Insulin NovoLOG Aspart Correctional Sugar Inj SQ SCH ×2 (07:02→12:10)
[2018-03-10] MEDS: Chlorhexidine 0.12% Oral Kit 15 ML UDC OROPHARYNG SCH (07:02)
[2018-03-10 07:48] LABS: Baso # (Auto) 0.1 th/mm3 (0.0-0.2); Baso % (Auto) 0.9 % (0.0-2.0); Eos # (Auto) 0.3 th/mm3 (0.0-0.4); Eos % (Auto) 2.5 % (0.0-4.0); Hematocrit 35.9 % (39.0-51.0); Hemoglobin 11.7 gm/dL (13.0-17.0); Lymph # (Auto) 1.5 th/mm3 (1.0-4.8); Lymph % (Auto) 11.1 % (9.0-44.0); Mean Corpuscular HGB Conc 32.6 % (32.0-36.0); Mean Corpuscular Hemoglobin 28.6 pg (27.0-34.0); Mean Corpuscular Volume 87.9 fL (80.0-100.0); Mean Platelet Volume 8.2 fL (7.0-11.0); Mono % (Auto) 7.3 % (0.0-8.0); Neut # (Auto) 10.3 th/mm3 (1.8-7.7); Neut % (Auto) 78.2 % (16.0-70.0); Platelet Count 246 th/mm3 (150-450); Red Blood Count 4.08 mil/mm3 (4.50-5.90); Red Cell Distribution Width 16.1 % (11.6-17.2); White Blood Count 13.1 th/mm3 (4.0-11.0)
[2018-03-10 08:04] LABS: Calcium 9.5 mg/dL (8.5-10.1); Carbon Dioxide 28.6 meq/L (21.0-32.0); Potassium 4.1 meq/L (3.5-5.1)
[2018-03-10] MEDS: Carvedilol 6.25 MG Tablet PO SCH ×2 (08:26→21:42)
[2018-03-10] MEDS: Folic Acid 1 MG Tablet PO SCH (08:27)
[2018-03-10] MEDS: Senna/Docusate Sodium 8.6/50 MG Tablet PO SCH ×2 (08:27→21:43)
[2018-03-10] MEDS: levETIRAcetam 500 MG Tablet PO SCH ×2 (08:27→21:42)
[2018-03-10] MEDS: Calcium Acetate 667 MG Capsule PO SCH ×3 (08:27→17:07)
[2018-03-10] MEDS: amLODIPine 5 MG Tablet PO SCH (08:27)
--- NOTE | 2018-03-10 16:04 | P.PNNP ---
Subjective Interval history: no acute complaints Physical Exam Vital signs: Vital Signs 03/09/18 16:32 03/09/18 18:03 03/09/18 20:00 Temperature 97.7 F 99.3 F Pulse Rate 96 H 92 H Respiratory Rate 20 16 17 Blood Pressure 117/84 120/80 Pulse Oximetry 92 L 95 03/10/18 00:00 03/10/18 04:00 03/10/18 04:05 Temperature 99.1 F 99.5 F Pulse Rate 92 H 89 85 Respiratory Rate 14 16 Blood Pressure 86/52 L 97/60 L Pulse Oximetry 96 94 L 03/10/18 05:47 03/10/18 07:48 03/10/18 08:00 Temperature Pulse Rate 71 Respiratory Rate 16 Blood Pressure 100/59 L Pulse Oximetry 03/10/18 08:26 03/10/18 09:42 03/10/18 12:00 Temperature 97.7 F 97.6 F Pulse Rate 76 82 Respiratory Rate 18 16 Blood Pressure 117/75 109/72 Pulse Oximetry 94 L 94 L 97 03/10/18 15:29 Temperature 98.5 F Pulse Rate 70 Respiratory Rate 16 Blood Pressure 101/72 Pulse Oximetry 96 Intake & Output 03/09/18 03/10/18 03/10/18 18:59 06:59 18:59 Intake Total 460 / 460 Balance 460 / 460 Weight 95.6 kg Intake: Oral 460 / 460 Other: # Incontinent Voids 1 Date of Last Bowel Movement 03/07/18 03/07/18 03/07/18 - Constitutional no acute distress - Routine HEENT Exam Head: Present: normocephalic Eye: Present: EOMI ENT: Present: mucous membranes moist - Routine Neck Exam Present: supple - Routine Respiratory Exam Present: CTA bilaterally - Routine Cardiovascular Exam Present: RRR - Routine Abdominal Exam Present: soft - Routine Skin Exam Present: intact - Routine Neurological Exam Present: alert, oriented X3 - Detailed Neurological Exam: Coma Scale Eye Opening: Spontaneous - Routine Psychiatric Exam Present: normal affect - Urinary Catheter Management Indwelling Temp Sensing Catheter Cath placed during this visit: yes, but has since been removed by the nurse Reason for continuing: Decision to DC catheter Insertion date: 01/14/18 Insertion time: 22:00 Removal date: 01/21/18 Removal time: 18:00 Straight Cath placed during this visit: yes, but has since been removed by the nurse Reason for continuing: Not indwelling catheter Insertion date: 03/07/18 Insertion time: 07:01 Removal date: 03/01/18 Removal time: 23:30 Assessment and Plan - Assessment (1) Acute renal failure Code(s): N17.9 - Acute kidney failure, unspecified Status: Acute Plan: Remains dialysis dependent at this time. First HD 01/17/18 , RIJ PermCath placed 02/08/18 Continue HD MWF schedule for the present. 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 HD done Sunday, next HD Sunday Monitor UOP and electrolytes for renal recovery. Ongoing azotemia Medications should be adjusted for the patient's estimated GFR if clinically indicated. Avoid agents with significant potential for nephrotoxicity possible including NSAIDs for analgesia, iodine contrast agents. Gadolinium is contraindicated if the GFR is below 30. Continue calcium acetate for hyperphosphatemia. (2) Anemia Code(s): D64.9 - Anemia, unspecified Status: Acute Qualifiers: Anemia type: due to chronic kidney disease Plan: Epogen with dialysis (3) Hypertension Code(s): I10 - Essential (primary) hypertension Status: Acute Plan: Well controlled, will monitor. (4) Diabetes Code(s): E11.9 - Type 2 diabetes mellitus without complications Status: Acute Plan: Maintain blood sugars between 140 mg /dl to 180 mg/dl while hospitalized. Well controlled.
[2018-03-10] MEDS ORDERED: Morphine Inj 4 MG/ML Vial IV.PUSH PRN (16:29)
--- NOTE | 2018-03-10 16:37 | P.PNIM ---
Subjective Interval history: Patient seen lying in bed. He has no new complaints or concerns. Tells me that he is sleepy. Nursing reports no adverse event Physical Exam Vital signs: Last Vital Signs Temp 98.5 F 03/10/18 15:29 Pulse 72 03/10/18 16:06 Resp 16 03/10/18 15:29 BP 101/72 03/10/18 15:29 Pulse Ox 96 03/10/18 15:29 Intake & Output 03/08/18 03/09/18 03/10/18 03/11/18 06:59 06:59 06:59 06:59 Intake Total 240 / 240 460 / 460 Output Total 100 / 100 1999 / 1999 Balance -100 / -100 -1760 / -1760 460 / 460 Weight 94.9 kg 94.8 kg 95.6 kg Narrative: GENERAL: Well-nourished, well-developed adult male in no obvious distress. SKIN: Warm and dry. Dialysis catheter in right chest wall -no erythema or drainage. HEAD: Atraumatic. Normocephalic. CARDIOVASCULAR: Regular rate and rhythm. RESPIRATORY: No accessory muscle use. Clear to auscultation. Breath sounds equal bilaterally. GASTROINTESTINAL: Abdomen soft, non-tender, non-distended. Positive bowel sounds. MUSCULOSKELETAL: Extremities without clubbing, cyanosis, or edema. No obvious deformities. NEUROLOGICAL: Awake and alert. No obvious cranial nerve deficits. Motor grossly within normal limits. Normal speech. PSYCHIATRIC: Questionable historian Urinary Catheter Management Indwelling Temp Sensing Catheter: Cath placed during this visit: yes, but has since been removed by the nurse Insertion date: 01/14/18 Insertion time: 22:00 Removal date: 01/21/18 Removal time: 18:00 Straight: Cath placed during this visit: yes, but has since been removed by the nurse Insertion date: 03/07/18 Insertion time: 07:01 Removal date: 03/01/18 Removal time: 23:30 Results Labs CBC & Chem 7: 03/10/18 06:48 03/10/18 06:48 Procedures Procedures: Left IJ HD tunneled cath placed 02/08/18 by IR Assessment and Plan Plan 62-year-old white male who was admitted with cardiogenic shock and acute respiratory failure requiring CPR and epinephrine in the field, after being found down at home and being witnessed to possibly have undergone seizure-like activity. Intubation was attempted in the field but were unable to do so, patient was ultimately intubated in the hospital, started on pressors, placed in the ICU on mechanical ventilation. Found to have bilateral pneumothoraces with chest tubes placed, had developed some pneumoperitoneum which surgically deemed might have been a leak from his chest tubes as opposed to an acute surgical abdomen. Patient was started on antibiotics empirically for possible aspiration pneumonia but was ultimately discontinued off of them by infectious disease. Developed rhabdomyolysis with worsening acute renal failure which became sustained, with the patient now undergoing dialysis. Ultimately was discontinued off pressors, cardiology deferred heart cath due to renal failure. Patient had difficulty following commands after he was discontinued off of sedation and after extubation. Had an MRI done on 01/17 which showed no acute findings, only an older right parietal CVA. EEG was done which was unremarkable. ESRD on HD -dialysis M, W, Fr. 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 Possible anoxic brain injury -Neurology consulted and following -PT/OT/ST -ok to get out of bed per Neurology with assistance Dysphagia related to encephalopathy -ST rec mechanical soft, thin liquid diet Possible seizure -continue Keppra -EEG was negative NSTEMI -troponins 0.52, 1.89 & 2.37 respectively -cardiology consulted, rec conservative medical management -continue ASA, Coreg, Isosorbide, amlodipine and atorvastatin Bilateral pneumothoraces - stable -chest tube removed 01/28/18 Pneumomediastinum Pneumoperitoneum with right retroperitoneal gas around the right kidney -Likely secondary to bilateral pneumothoraces with no surgical intervention warranted per general surgery Acute respiratory failure -continue supplemental O2 PRN -pulmonary following Cirrhosis -likely secondary to alcohol abuse -continue BB Type II diabetes mellitus, uncontrolled ? -Not needing sliding scale coverage; frequently refusing 5 units Levemir at night -We will stop insulin for now; monitor daily blood glucose for need to restart Hypothyroidism -continue Synthroid Normocytic anemia - stable -s/p PRBC transfusion -epogen with dialysis MDM: self Code: DNR GI ppx: Protonix PO DVT ppx: Heparin SQ Discussed with: RN, patient, CM Dispo: awaiting placement once cleared by nephrology Progress Note: Quality VTE Deep Vein Thrombosis/Pulmonary Embolism Present on Admission: No
[2018-03-10] MEDS: QUEtiapine 25 MG Tablet PO SCH (23:25)
[2018-03-11] MEDS: Oral Hygiene Kit OROPHARYNG SCH ×4 (00:04→15:01)
[2018-03-11] MEDS: Levothyroxine 88 MCG Tablet PO SCH (05:50)
[2018-03-11 07:55] LABS: Hematocrit 32.8 % (39.0-51.0); Hemoglobin 11.1 gm/dL (13.0-17.0); Mean Corpuscular HGB Conc 33.9 % (32.0-36.0); Mean Corpuscular Hemoglobin 29.5 pg (27.0-34.0); Platelet Count 252 th/mm3 (150-450); Red Blood Count 3.78 mil/mm3 (4.50-5.90); Red Cell Distribution Width 15.8 % (11.6-17.2); White Blood Count 11.3 th/mm3 (4.0-11.0)
[2018-03-11 08:22] LABS: Alanine Aminotransferase 8 U/L (12-78); Alkaline Phosphatase 139 U/L (45-117); Anion Gap 10 meq/L (5-15); Aspartate Aminotransferase 9 U/L (15-37); Blood Urea Nitrogen 32 mg/dL (7-18); Calcium 9.1 mg/dL (8.5-10.1); Chloride 92 meq/L (98-107); Glomerular Filtration Rate 6 mL/min (>89); Glucose,Random 96 mg/dL (74-106); Magnesium 2.4 mg/dL (1.5-2.5); Phosphorus 4.1 mg/dL (2.5-4.9); Potassium 4.4 meq/L (3.5-5.1); Sodium 131 meq/L (136-145); Total Protein 6.8 g/dL (6.4-8.2)
[2018-03-11] MEDS: Senna/Docusate Sodium 8.6/50 MG Tablet PO SCH ×2 (08:24→21:30)
[2018-03-11] MEDS: Carvedilol 6.25 MG Tablet PO SCH ×2 (08:24→21:29)
[2018-03-11] MEDS: Folic Acid 1 MG Tablet PO SCH (08:24)
[2018-03-11] MEDS: levETIRAcetam 500 MG Tablet PO SCH ×2 (08:26→21:29)
[2018-03-11] MEDS: amLODIPine 5 MG Tablet PO SCH (08:30)
[2018-03-11] MEDS: Calcium Acetate 667 MG Capsule PO SCH ×3 (08:30→17:02)
[2018-03-11] MEDS ORDERED: Naloxone Inj 0.4 MG/ML Vial IV.PUSH PRN (11:12)
[2018-03-11] MEDS: oxyCODONE/Acetaminophen 10/325 Tablet PO PRN (13:24)
--- NOTE | 2018-03-11 14:34 | P.PNNP ---
Subjective Interval history: Seen during hemodialysis. Reports increased pain at kidney biopsy site and hematuria. No bruising present. <Smiley Barth - Last Filed: 03/11/18 14:30> Physical Exam Vital signs: Vital Signs 03/10/18 15:29 03/10/18 16:06 03/10/18 20:00 Temperature 98.5 F 97.8 F Pulse Rate 70 72 80 Respiratory Rate 16 16 Blood Pressure 101/72 109/73 Pulse Oximetry 96 95 03/10/18 20:40 03/11/18 00:00 03/11/18 00:05 Temperature 98.6 F Pulse Rate 76 81 Respiratory Rate 16 Blood Pressure 96/63 L Pulse Oximetry 95 93 L 03/11/18 04:00 03/11/18 04:15 03/11/18 07:15 Temperature 97.3 F L 97.7 F Pulse Rate 79 72 70 Respiratory Rate 18 18 Blood Pressure 111/65 112/73 Pulse Oximetry 96 93 L 03/11/18 09:52 Temperature Pulse Rate Respiratory Rate Blood Pressure Pulse Oximetry 98 Intake & Output 03/10/18 03/11/18 03/11/18 18:59 06:59 18:59 Intake Total 100 / 100 Output Total 300 / 300 1999 Balance -200 / -200 -1999 Weight 95.6 kg Intake: Oral 100 / 100 Output: Urine 300 / 300 Hemodialysis Amount 1999 Other: Date of Last Bowel Movement 03/07/18 03/07/18 Narrative: GENERAL: alert and oriented. SKIN: Warm and dry. Dialysis catheter in right chest wall -no erythema or drainage. HEAD: Atraumatic. Normocephalic. CARDIOVASCULAR: Regular rate and rhythm. RESPIRATORY: No accessory muscle use. Clear to auscultation. Breath sounds equal bilaterally. GASTROINTESTINAL: Abdomen soft, non-tender, non-distended. Positive bowel sounds. MUSCULOSKELETAL: Extremities without clubbing, cyanosis, or edema. No obvious deformities. - Urinary Catheter Management Indwelling Temp Sensing Catheter Cath placed during this visit: yes, but has since been removed by the nurse Reason for continuing: Decision to DC catheter Insertion date: 01/14/18 Insertion time: 22:00 Removal date: 01/21/18 Removal time: 18:00 Straight Cath placed during this visit: yes, but has since been removed by the nurse Reason for continuing: Not indwelling catheter Insertion date: 03/07/18 Insertion time: 07:01 Removal date: 03/01/18 Removal time: 23:30 <Smiley Barth - Last Filed: 03/11/18 14:30> Vital signs: Vital Signs 03/11/18 00:00 03/11/18 00:05 03/11/18 04:00 Temperature 98.6 F 97.3 F L Pulse Rate 76 81 79 Respiratory Rate 16 18 Blood Pressure 96/63 L 111/65 Pulse Oximetry 93 L 96 03/11/18 04:15 03/11/18 07:15 03/11/18 09:52 Temperature 97.7 F Pulse Rate 72 70 Respiratory Rate 18 Blood Pressure 112/73 Pulse Oximetry 93 L 98 03/11/18 16:10 03/11/18 19:35 03/11/18 20:00 Temperature 97.8 F 98.1 F Pulse Rate 105 H 68 89 Respiratory Rate 20 20 Blood Pressure 98/71 L 133/57 L Pulse Oximetry 96 95 Intake & Output 03/11/18 03/11/18 03/12/18 06:59 18:59 06:59 Intake Total 100 / 100 150 / 150 Output Total 300 / 300 1999 Balance -200 / -200 -1850 / -1850 Weight 95.6 kg Intake: Oral 100 / 100 150 / 150 Output: Urine 300 / 300 Hemodialysis Amount 1999 Other: Date of Last Bowel Movement 03/07/18 - Urinary Catheter Management Indwelling Temp Sensing Catheter Cath placed during this visit: no Straight Cath placed during this visit: no <Brianna Blevins - Last Filed: 03/11/18 22:03> Assessment and Plan - Assessment (1) Acute renal failure Code(s): N17.9 - Acute kidney failure, unspecified Status: Acute Plan: Remains dialysis dependent at this time. First HD 01/17/18 , RIJ PermCath placed 02/08/18 Continue HD MWF schedule for the present. 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 Monitor UOP and electrolytes for renal recovery. Ongoing azotemia Medications should be adjusted for the patient's estimated GFR if clinically indicated. Avoid agents with significant potential for nephrotoxicity possible including NSAIDs for analgesia, iodine contrast agents. Gadolinium is contraindicated if the GFR is below 30. Continue calcium acetate for hyperphosphatemia. Seen during hemodialysis tolerating well, plan for UF of 2 liters. Continues to report increased pain at kidney biopsy site with hematuria. CT ordered for further evaluation. (2) Anemia Code(s): D64.9 - Anemia, unspecified Status: Acute Qualifiers: Anemia type: due to chronic kidney disease Plan: Epogen with dialysis. HGB stable (3) Hypertension Code(s): I10 - Essential (primary) hypertension Status: Acute Plan: Well controlled, will monitor. (4) Diabetes Code(s): E11.9 - Type 2 diabetes mellitus without complications Status: Acute Plan: Maintain blood sugars between 140 mg /dl to 180 mg/dl while hospitalized. Well controlled. <Smiley Barth - Last Filed: 03/11/18 14:30> - Assessment (1) Acute renal failure Code(s): N17.9 - Acute kidney failure, unspecified Status: Acute Plan: Patient seen and examined, agree with above. Patient has left flank pain and hematuria. CT abd. done and noted. Hgb. is stable. If not better, will get Urology consult. Watch for renal recovery. (2) Anemia Code(s): D64.9 - Anemia, unspecified Status: Acute Qualifiers: Anemia type: due to chronic kidney disease (3) Hypertension Code(s): I10 - Essential (primary) hypertension Status: Acute (4) Diabetes Code(s): E11.9 - Type 2 diabetes mellitus without complications Status: Acute <Brianna Blevins - Last Filed: 03/11/18 22:03>
--- NOTE | 2018-03-11 15:10 | P.CONURO ---
History of Present Illness Service: [facility] Consult date: 03/11/18 Requesting Physician: Hali Payton Reason for Consult: Gross hematuria Primary Care Provider: UNKNOWN Chief Complaint: Gross Hematuria, painless History of Present Illness: 62 Y/O white alcoholic (1 liter vodka daily) , diabetic II, partially demented ( old CVA, recent anoxia) male in kidney failure on dialysis, who had a percutaneous kidney biopsy 4 days ago, and who has had urinary catheters in place twice since admission who had an episode of gross painless hematuria yesterday. Urine for C&S has not yet been ordered. CT scan of Abd/Pelvis is pending today. Today's nurse: Louisa, reports slightly bloody urine, no clots (urine has since been discarded). History as given by patient is convoluted. His main complaints are itching and pain. Patient discussed with Leonila Rodriguez APRN. Review of Systems unobtainable due to mental status Genitourinary: Reports other (denies prior voiding problems, but history is questionable) [facility] - History History Provided By: Patient, Significant Other, Medical Record - Medical History Medical History: Medical History (Last Reviewed 03/11/18 @ 08:36 by Carmel Garcia) Anxiety CVA (cerebral vascular accident) Diabetes ETOH abuse Hypertension No significant past surgical history - Family History Family History: Family History (Last Reviewed 03/09/18 @ 08:09 by Griselda [facility]) Mother Kidney carcinoma Father CAD (coronary artery disease) - Tobacco History Second Hand Smoke Exposure: No (quit 2004) Tobacco Use In Past 30 Days: No Smoking Status: Former smoker Tobacco Type: Cigarettes - Alcohol History How Often Do You Have a Drink Containing Alcohol: 4 or more times a week (1 liter vodka daily) - Substance Use History Substance History: Past History - Travel History Recent Travel in the [place] Within the Last 8 Weeks: No Recent Travel Out of the Country Within the Last 8 Weeks: No - Immunization History Tetanus Immunization: Unsure Hx Influenza Vaccine This Season: No Medications and Allergies Active Medications: Active Medications Acetaminophen (Tylenol) 650 mg PO Q6HR PRN PRN Reason: PAIN SCALE 1 TO 2 Al Hydroxide/Mg Hydroxide (Milk Of Magnesia Liq) 30 ml PO Q12H PRN PRN Reason: Mild Constipation Albuterol (Duoneb Neb (Prn)) 1 ampul NEB Q2HR NEB PRN PRN Reason: DYSPNEA Amlodipine Besylate (Norvasc) 5 mg PO DAILY [facility] Last Admin: 03/11/18 08:30 Dose: Not Given Aspirin (Aspirin Chew) 81 mg PO DAILY [facility] Last Admin: 03/11/18 08:24 Dose: Not Given Atorvastatin Calcium (Lipitor) 20 mg PO DAILY [facility] Last Admin: 03/11/18 08:26 Dose: 20 mg Bisacodyl (Dulcolax Supp) 10 mg RECTAL DAILY PRN PRN Reason: SEVERE CONSITIPATION Last Admin: 03/01/18 23:22 Dose: 10 mg Calcium Acetate (Phoslo) 667 mg PO TID [facility] Last Admin: 03/11/18 13:23 Dose: 667 mg Carvedilol (Coreg) 6.25 mg PO BID [facility] Last Admin: 03/11/18 08:24 Dose: Not Given Clonidine HCl (Catapres) 0.1 mg PO UNSCH PRN PRN Reason: SEE LABEL COMMENTS Dextrose (D50w Vial) 50 ml IV.PUSH UNSCH PRN PRN Reason: PER HYPOGLYCEMIA PROTOCOL Diphenhydramine HCl (Benadryl) 25 mg PO Q6H PRN PRN Reason: ITCHING Last Admin: 03/09/18 20:32 Dose: 25 mg Diphenhydramine HCl (Benadryl Inj) 25 mg IV.PUSH Q6H PRN PRN Reason: URTICARIA Epoetin Jaleel (Epogen Inj) 10,000 unit DIALYSYS MoWeFr [facility] Last Admin: 03/08/18 17:44 Dose: Not Given Folic Acid (Folic Acid) 1 mg PO DAILY [facility] Last Admin: 03/11/18 08:24 Dose: 1 mg Gelatin (Gelfoam 12 Mm/7 Mm Topical) 1 foam TOPICAL PRN PRN PRN Reason: help stop bleeding from site Gentamicin Sulfate (Gentamicin Inj) 20 mg OTHER WITH DIALYSIS PRN PRN Reason: Dwell Gentamycin Lock Last Admin: 03/08/18 12:25 Dose: 20 mg Glucagon (Glucagon Inj) 1 mg OTHER PRN PRN PRN Reason: for Hypoglycemia Protocol Heparin Sodium (Porcine) (Heparin Inj) 0 units IV.FLUSH WITH DIALYSIS PRN PRN Reason: Flush each lumen Last Admin: 01/25/18 08:38 Dose: 2,000 units Heparin Sodium (Porcine) (Heparin Inj) 8,000 units OTHER WITH DIALYSIS PRN PRN Reason: for machine prime Heparin Sodium (Porcine) (Heparin Inj) 1,000 units OTHER WITH DIALYSIS PRN PRN Reason: Dwell Heparin to Fill Catheter Last Admin: 03/08/18 12:25 Dose: 1,000 units Sodium Chloride (Ns Inj) 1,000 mls @ 0 mls/hr OTHER .Q0M PRN PRN Reason: for prime and rinse back Last Infusion: 01/26/18 02:33 Dose: Infused Sodium Chloride (Ns Inj) 1,000 mls @ 200 mls/hr OTHER .Q5H PRN PRN Reason: for dialyzer flush PRN Albumin Human (Flexbumin 25% Inj) 100 mls @ 60 mls/hr IV.SIG WITH DIALYSIS PRN PRN Reason: hypotension / volume replace Sodium Chloride (Ns Inj) 1,000 mls @ 0 mls/hr OTHER .Q0M PRN PRN Reason: for prime and rinse back Sodium Chloride (Ns Inj) 1,000 mls @ 200 mls/hr OTHER .Q5H PRN PRN Reason: for dialyzer flush PRN Sodium Chloride (Ns Inj) 1,000 mls @ 0 mls/hr IV.CONT .Q0M PRN PRN Reason: hypotension / volume replace Isosorbide Dinitrate (Isordil) 20 mg PO Q8HR [facility] Last Admin: 03/11/18 13:23 Dose: 20 mg Lactulose (Lactulose Liq) 30 ml PO DAILY [facility] Last Admin: 03/11/18 08:29 Dose: Not Given Levetiracetam (Keppra) 500 mg PO BID [facility] Last Admin: 03/11/18 08:26 Dose: 500 mg Levothyroxine Sodium (Synthroid) 88 mcg PO DAILY@0600 [facility] Last Admin: 03/11/18 05:50 Dose: 88 mcg Mannitol (Mannitol Inj) 12.5 gm IV.PUSH UNSCH PRN PRN Reason: hypotension / volume replace Miscellaneous Medication () 1 each OROPHARYNG 0000,0400,1200,1600 [facility] Last Admin: 03/11/18 12:01 Dose: Not Given Multivitamins (Theragran) 1 tab PO DAILY [facility] Last Admin: 03/11/18 08:25 Dose: 1 tab Naloxone HCl (Narcan Inj) 0.4 mg IV.PUSH UNSCH PRN PRN Reason: SEE LABEL COMMENTS Nitroglycerin (Nitrostat Sl) 0.4 mg SL Q5M PRN PRN Reason: CHEST PAIN Ondansetron HCl (Zofran Inj) 4 mg IV.PUSH Q6H PRN PRN Reason: NAUSEA Last Admin: 03/03/18 20:28 Dose: 4 mg Oxycodone/Acetaminophen (Percocet 10/325 Mg) 1 tab PO Q6H PRN PRN Reason: PAIN SCALE 6 TO 10 Last Admin: 03/11/18 13:24 Dose: 1 tab Oxycodone/Acetaminophen (Percocet 5/325 Mg) 1 tab PO Q6H PRN PRN Reason: PAIN SCALE 3 TO 5 Pantoprazole Sodium (Protonix) 40 mg PO DAILY [facility] Last Admin: 03/11/18 08:26 Dose: 40 mg Quetiapine Fumarate (Seroquel) 50 mg PO [facility] Last Admin: 03/10/18 23:25 Dose: 50 mg Senna/Docusate Sodium (Ayleen-Colace) 1 tab PO BID [facility] Last Admin: 03/11/18 08:24 Dose: 1 tab Sennosides (Senokot) 17.2 mg PO Q12H PRN PRN Reason: Moderate Constipation Last Admin: 03/01/18 23:20 Dose: 17.2 mg Sodium Chloride (Ns Flush) 2 ml IV.FLUSH BID [facility] Last Admin: 03/11/18 08:27 Dose: 2 ml Sodium Chloride (Ns Flush) 2 ml IV.FLUSH PRN PRN PRN Reason: FLUSH AFTER USING IV ACCESS Last Admin: 03/01/18 04:34 Dose: 2 ml Sodium Chloride (Ns Flush) 0 ml IV.FLUSH PRN PRN PRN Reason: FLUSH AFTER USING IV ACCESS Sodium Chloride (Ns Flush) 5 ml IV.FLUSH PRN PRN PRN Reason: flush each lumen during HD Terbutaline Sulfate (Brethine Inj) 1 mg SQ UNSCH PRN PRN Reason: For Extravasation Thiamine HCl (Vitamin B1) 100 mg PO DAILY [facility] Last Admin: 03/11/18 08:24 Dose: 100 mg Allergies Allergy/AdvReac Type Severity Reaction Status Date / Time erythromycin base Allergy Severe Hives Verified 01/14/18 03:00 penicillin G Allergy Severe Hives Verified 01/14/18 03:00 Physical Exam Vital Signs - 24 hr 03/10/18 15:29 03/10/18 16:06 03/10/18 20:00 Temperature 98.5 F 97.8 F Pulse Rate 70 72 80 Respiratory Rate 16 16 Blood Pressure 101/72 109/73 Pulse Oximetry 96 95 03/10/18 20:40 03/11/18 00:00 03/11/18 00:05 Temperature 98.6 F Pulse Rate 76 81 Respiratory Rate 16 Blood Pressure 96/63 L Pulse Oximetry 95 93 L 03/11/18 04:00 03/11/18 04:15 03/11/18 07:15 Temperature 97.3 F L 97.7 F Pulse Rate 79 72 70 Respiratory Rate 18 18 Blood Pressure 111/65 112/73 Pulse Oximetry 96 93 L 03/11/18 09:52 Temperature Pulse Rate Respiratory Rate Blood Pressure Pulse Oximetry 98 Physical Exam: GENERAL: This is a well-nourished, well-developed patient, in some apparent distress. SKIN: No rashes, ecchymoses or lesions. Cool and dry. HEAD: Atraumatic. Normocephalic. No temporal or scalp tenderness. EYES: Pupils equal round and reactive. Extraocular motions intact. No scleral icterus. No injection or drainage. ENT: Nose without bleeding, purulent drainage or septal hematoma. Throat without erythema, tonsillar hypertrophy or exudate. Uvula midline. Airway patent. NECK: Trachea midline. No JVD or lymphadenopathy. Supple, nontender, no meningeal signs. CARDIOVASCULAR: Regular rate and rhythm without murmurs, gallops, or rubs. RESPIRATORY: Clear to auscultation. Breath sounds equal bilaterally. No wheezes , rales, or rhonchi. \ GASTROINTESTINAL: Abdomen soft, non-tender, nondistended. No hepato-splenomegaly , or palpable masses. No guarding. BLADDER: Not palpable. GENITOURINARY: PROSTATE/RECTUM: No rectal masses palpated. Prostate slightly enlarged (est. 25-35 cc), smooth, no nodules, feels benign. MUSCULOSKELETAL: Extremities without clubbing, cyanosis, or edema. No joint tenderness, effusion, or edema noted. No calf tenderness. Negative Homans sign bilaterally. NEUROLOGICAL: Awake and alert. Cranial nerves II through XII intact. Motor and sensory grossly within normal limits. Five out of 5 muscle strength in all muscle groups. Speech is convoluted, sometimes coherent, sometimes not. Answers to most questions are reasonably coherent. Lab results reviewed: Yes Laboratory Results - last 24 hr 03/11/18 03/11/18 03/11/18 07:36 07:36 08:41 WBC 11.3 H RBC 3.78 L Hgb 11.1 L Hct 32.8 L MCV 87.0 MCH 29.5 MCHC 33.9 RDW 15.8 Plt Count 252 MPV 8.0 Sodium 131 L Potassium 4.4 Chloride 92 L Carbon Dioxide 29.0 Anion Gap 10 BUN 32 H Creatinine 9.09 H Estimated GFR 6 L POC Glucose 89 Random Glucose 96 Calcium 9.1 Phosphorus 4.1 Magnesium 2.4 Total Bilirubin 0.8 AST 9 L ALT 8 L Alkaline Phosphatase 139 H Total Protein 6.8 Albumin 3.0 L 03/11/18 12:22 WBC RBC Hgb Hct MCV MCH MCHC RDW Plt Count MPV Sodium Potassium Chloride Carbon Dioxide Anion Gap BUN Creatinine Estimated GFR POC Glucose 85 Random Glucose Calcium Phosphorus Magnesium Total Bilirubin AST ALT Alkaline Phosphatase Total Protein Albumin Result Diagrams: 03/11/18 07:36 03/11/18 07:36 Personally reviewed images: No Imaging: ITS Impressions Cervical Spine CT 01/14/18 21:58 CONCLUSION: 1. No acute fracture or malalignment. 2. Subcutaneous emphysema again noted as well as the known right pneumothorax. Head CT 01/14/18 21:58 CONCLUSION: 1. No acute hemorrhage or mass effect. 2. Stable area of encephalomalacia in the right lateral lobe. . Abdomen/Bladder Ultrasound 01/16/18 00:00 CONCLUSION: 1. Trace ascites. 2. Negative renal ultrasound Abdomen/Pelvis CT 01/16/18 00:00 CONCLUSION: 1. Minimal free intraperitoneal air. I don't see etiology for such 2. Dense consolidation both lung bases with small bilateral chest tubes 3. Trace pneumothorax on the left. No pneumothorax on the right. 4. Moderate fatty replacement to the liver with prominent gallbladder Chest CT 01/16/18 00:00 . CONCLUSION: 1. Dense consolidation in both lung bases small bore chest tubes evident. 2. Trace pneumothorax on the left 3. No significant fluid. Cervical Spine MRI 01/27/18 00:00 CONCLUSION: 1. No fracture or subluxation seen of the cervical spine but there is edema in the erector spinae muscles, especially on the right at the level of the upper cervical spine. This is nonspecific but presumably related to an acute or subacute strain. Localized early denervation would be conceivable but I don't see any atrophy. 2. There is an age-indeterminate left foraminal disc protrusion at C3/C4 that is probably impinging on the transiting left C4 nerve root. 3. Multilevel degenerative changes that otherwise appear chronic, as described. Associated high-grade foraminal stenosis on the right at C4/C5, bilateral at C5/C6 and C6/C7. No high-grade spinal stenosis demonstrated. Head MRI 01/27/18 00:00 CONCLUSION: 1. Remote right posterior parietal mid convexity infarct. 2. Mild cerebral atrophy with mild periventricular ischemic white matter demyelination. 3. Stable paranasal sinus mucosal disease and mastoiditis. 4. No acute abnormality. Specifically, no acute infarction or hemorrhage. Abdomen X-Ray 01/28/18 00:00 CONCLUSION: Mild gaseous distention of bowel. Carotid Doppler Study 01/28/18 00:00 CONCLUSION: 1. Right Internal Carotid Artery: No significant stenosis or atherosclerotic plaque is visualized. 2. Left Internal Carotid Artery: No significant stenosis or atherosclerotic plaque is visualized. Venous Doppler Study 02/05/18 00:00 CONCLUSION: No venous thrombosis is identified within the left upper extremity. Catheter Placement 02/08/18 00:00 CONCLUSION: 1. Uncomplicated line placement as above. Tube Removal 02/08/18 00:00 CONCLUSION: 1. Uncomplicated catheter removal. Chest X-Ray 03/01/18 00:00 CONCLUSION: No significant change mild bibasilar atelectasis. Renal Biopsy CT 03/07/18 00:00 CONCLUSION: 1. Uncomplicated CT guided biopsy. CT abd, pelvis pending today. Hospital Course: On dialysis, awaiting discharge. Assessment and Plan - Assessment (1) Gross hematuria Code(s): R31.0 - Gross hematuria Status: Acute Onset Date: ~03/10/18 - Plan Await CT abd/pelvis today. PV Bladder scan. Urine for bacteriological C&S. Discussed Condition With: Patient, nurse Leonila Jasso, OLGA. Who will order the Urine C&S and PV Bladder Scan. F/U today/tomorrow with Drs. Smith/[facility].
--- NOTE | 2018-03-11 15:55 | CT ---
EXAM DATE: 03/11/2018 3:20 PM EST AGE/SEX: 62 years / Male INDICATIONS: Increased pain at kidney biopsy site. CLINICAL DATA: This is the patient's initial encounter. Patient reports that signs and symptoms have been present for 1 day and indicates a pain score of 8/10. MEDICAL/SURGICAL HISTORY: Cerebrovascular disease. Diabetes. Hypertension. None. RADIATION DOSE: 10.96 CTDI (mGy) COMPARISON: [facility] – [place], CT BIOPSY RENAL RIGHT, 03/07/2018. . TECHNIQUE: Multiple contiguous axial images were obtained through the abdomen. Images were obtained using multiple row detector helical technique. Using automated exposure control and adjustment of the mA and/or kV according to patient size, radiation dose was kept as low as reasonably achievable to o btain optimal diagnostic quality images. DICOM format image data is available electronically for rev iew and comparison. FINDINGS: Lower Lungs: Mild bilateral lung base atelectasis or scarring. Liver: The liver has a homogeneous density without space-occupying lesion. There is no dilation of th e biliary tree. Spleen: Homogeneous density without enlargement. Pancreas: Unremarkable without mass or calcification. Kidneys: The left kidney is notable for mild hydronephrosis and hydroureter. There appears to be shant e hyperdense debris in the left renal calyces and ureter which may be some hematoma following recent biopsy. There is also some layering radiodense debris in the urinary bladder. Correlation with presen ce of hematuria suggested. There is no evidence of renal parenchymal or perinephric hematoma. The con tralateral right kidney is stable and unremarkable. Adrenal Glands: Unremarkable. Aorta: The aorta and proximal iliac vessels are grossly unremarkable without aneurysmal dilation. Bowel/Mesentery: The bowel loops are grossly unremarkable. The cecum and sigmoid colon have a normal configuration. Abdominal Wall: Intact. Retroperitoneum: No evidence of adenopathy in the retrocrural, para-aortic, or deep pelvic regions. Bladder: See above Reproductive Organs: No abnormal masses or calcifications seen. Inguinal: The inguinal region is unremarkable without evidence of adenopathy. Bony Structures: Unremarkable. Incidental lipoma in the lower aspect of the abdominal obliques on th e left. CONCLUSION: Suspect partial left ureteral obstruction related to collecting system hemorrhage. See above discussi on. Electronically signed by: Dionisio Branham MD Board Certified Radiologist 03/11/2018 3:54 PM EST
--- NOTE | 2018-03-11 17:42 | US ---
EXAM DATE: 03/11/2018 5:34 PM EST AGE/SEX: 62 years / Male INDICATIONS: Hematuria status post renal biopsy on 03/07/18. CLINICAL DATA: This is the patient's initial encounter. Patient reports that signs and symptoms have been present for 1 day and indicates a pain score of 0/10. MEDICAL/SURGICAL HISTORY: Diabetes. Renal disease. . Left renal biopsy - 03/07/18. COMPARISON: [facility] – [place] KIDNEY/RENAL/BLADDER, 01/16/2018. . MEASUREMENTS: Right Kidney:__10.8 x 4.4 x 5.1 cm Left Kidney:__12.4 x 5.7 x 5.9 cm FINDINGS: Right Kidney: Increased echogenicity. No mass or hydronephrosis. Left Kidney: Increased echogenicity. Mild pelvocaliectasis of the left renal collecting system. Bladder: Within normal limits given the degree of distension. Other: None. CONCLUSION: 1. Increased cortical echogenicity of both kidneys with preserved renal size. Findings could be nina acteristic of an acute medical renal disease. 2. Mild pelvocaliectasis of the left renal collecting system. Electronically signed by: Thanh Dwyer MD Board Certified Radiologist 03/11/2018 5:41 PM EST
--- NOTE | 2018-03-11 18:22 | P.PNIM ---
Subjective Interval history: Patient seen after dialysis. Very sleepy. Complaining of lower abdominal pain. No diarrhea, nausea or vomiting. Did have one episode of hematuria earlier today. Physical Exam Vital signs: Last Vital Signs Temp 97.8 F 03/11/18 16:10 Pulse 105 H 03/11/18 16:10 Resp 20 03/11/18 16:10 BP 98/71 L 03/11/18 16:10 Pulse Ox 96 03/11/18 16:10 Intake & Output 03/09/18 03/10/18 03/11/18 03/12/18 06:59 06:59 06:59 06:59 Intake Total 240 / 240 460 / 460 100 / 100 Output Total 1999 300 / 300 1999 Balance -1760 / -1760 460 / 460 -200 / -200 -1999 Weight 94.8 kg 95.6 kg 95.6 kg Narrative: GENERAL: Well-nourished, well-developed adult male in no obvious distress. SKIN: Warm and dry. Dialysis catheter in right chest wall -no erythema or drainage. HEAD: Atraumatic. Normocephalic. CARDIOVASCULAR: Regular rate and rhythm. RESPIRATORY: No accessory muscle use. Clear to auscultation. Breath sounds equal bilaterally. GASTROINTESTINAL: Abdomen soft, non-tender, non-distended. Positive bowel sounds. MUSCULOSKELETAL: Extremities without clubbing, cyanosis, or edema. No obvious deformities. NEUROLOGICAL: Awake and alert. No obvious cranial nerve deficits. Motor grossly within normal limits. Normal speech. PSYCHIATRIC: Questionable historian Urinary Catheter Management Indwelling Temp Sensing Catheter: Cath placed during this visit: yes, but has since been removed by the nurse Insertion date: 01/14/18 Insertion time: 22:00 Removal date: 01/21/18 Removal time: 18:00 Straight: Cath placed during this visit: yes, but has since been removed by the nurse Insertion date: 03/07/18 Insertion time: 07:01 Removal date: 03/01/18 Removal time: 23:30 Results Labs CBC & Chem 7: 03/11/18 07:36 03/11/18 07:36 Imaging Imaging: Impressions Abdomen/Bladder Ultrasound 03/11/18 00:00 CONCLUSION: 1. Increased cortical echogenicity of both kidneys with preserved renal size. Findings could be characteristic of an acute medical renal disease. 2. Mild pelvocaliectasis of the left renal collecting system. Abdomen/Pelvis CT 03/11/18 00:00 CONCLUSION: Suspect partial left ureteral obstruction related to collecting system hemorrhage. See above discussion. Procedures Procedures: Left IJ HD tunneled cath placed 02/08/18 by IR Assessment and Plan (1) Gross hematuria: Code(s): R31.0 - Gross hematuria Status: Acute Onset Date: ~03/10/18 Plan 62-year-old white male who was admitted with cardiogenic shock and acute respiratory failure requiring CPR and epinephrine in the field, after being found down at home and being witnessed to possibly have undergone seizure-like activity. Intubation was attempted in the field but were unable to do so, patient was ultimately intubated in the hospital, started on pressors, placed in the ICU on mechanical ventilation. Found to have bilateral pneumothoraces with chest tubes placed, had developed some pneumoperitoneum which surgically deemed might have been a leak from his chest tubes as opposed to an acute surgical abdomen. Patient was started on antibiotics empirically for possible aspiration pneumonia but was ultimately discontinued off of them by infectious disease. Developed rhabdomyolysis with worsening acute renal failure which became sustained, with the patient now undergoing dialysis. Ultimately was discontinued off pressors, cardiology deferred heart cath due to renal failure. Patient had difficulty following commands after he was discontinued off of sedation and after extubation. Had an MRI done on 01/17 which showed no acute findings, only an older right parietal CVA. EEG was done which was unremarkable. ESRD on HD -dialysis M, W, Fr. 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 Abdominal pain returned -CT abdomen and pelvis ordered Hematuria -Urology consulted -UA and postvoid bladder scan ordered -Possibly due to recent kidney biopsy 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 Possible anoxic brain injury -Neurology consulted and following -PT/OT/ST -ok to get out of bed per Neurology with assistance Dysphagia related to encephalopathy -ST rec mechanical soft, thin liquid diet Possible seizure -continue Keppra -EEG was negative NSTEMI -troponins 0.52, 1.89 & 2.37 respectively -cardiology consulted, rec conservative medical management -continue ASA, Coreg, Isosorbide, amlodipine and atorvastatin Bilateral pneumothoraces - stable -chest tube removed 01/28/18 Pneumomediastinum Pneumoperitoneum with right retroperitoneal gas around the right kidney -Likely secondary to bilateral pneumothoraces with no surgical intervention warranted per general surgery Acute respiratory failure -continue supplemental O2 PRN -pulmonary following Cirrhosis -likely secondary to alcohol abuse -continue BB Type II diabetes mellitus, uncontrolled ? -Not needing sliding scale coverage; frequently refusing 5 units Levemir at night -We will stop insulin for now; monitor daily blood glucose for need to restart Hypothyroidism -continue Synthroid Normocytic anemia - stable -s/p PRBC transfusion -epogen with dialysis MDM: self Code: DNR GI ppx: Protonix PO DVT ppx: Heparin SQ Discussed with: RN, patient, CM Dispo: awaiting placement once cleared by nephrology Progress Note: Quality VTE Deep Vein Thrombosis/Pulmonary Embolism Present on Admission: No
[2018-03-11] MEDS: QUEtiapine 25 MG Tablet PO SCH (21:29)
[2018-03-12] MEDS: Oral Hygiene Kit OROPHARYNG SCH ×4 (00:29→15:30)
[2018-03-12] MEDS: Levothyroxine 88 MCG Tablet PO SCH (06:35)
[2018-03-12 08:11] LABS: Hematocrit 34.2 % (39.0-51.0); Hemoglobin 10.9 gm/dL (13.0-17.0); Mean Corpuscular HGB Conc 31.9 % (32.0-36.0); Mean Corpuscular Hemoglobin 28.2 pg (27.0-34.0); Mean Corpuscular Volume 88.5 fL (80.0-100.0); Mean Platelet Volume 8.2 fL (7.0-11.0); Platelet Count 252 th/mm3 (150-450); Red Blood Count 3.86 mil/mm3 (4.50-5.90); Red Cell Distribution Width 15.8 % (11.6-17.2); White Blood Count 9.5 th/mm3 (4.0-11.0)
[2018-03-12 09:01] LABS: Alanine Aminotransferase 8 U/L (12-78); Albumin 2.9 g/dL (3.4-5.0); Alkaline Phosphatase 129 U/L (45-117); Anion Gap 5 meq/L (5-15); Aspartate Aminotransferase 13 U/L (15-37); Blood Urea Nitrogen 20 mg/dL (7-18); Calcium 9.3 mg/dL (8.5-10.1); Carbon Dioxide 33.1 meq/L (21.0-32.0); Chloride 96 meq/L (98-107); Glomerular Filtration Rate 8 mL/min (>89); Glucose,Random 83 mg/dL (74-106); Magnesium 2.4 mg/dL (1.5-2.5); Phosphorus 3.1 mg/dL (2.5-4.9); Potassium 4.8 meq/L (3.5-5.1); Sodium 134 meq/L (136-145); Total Protein 6.8 g/dL (6.4-8.2)
[2018-03-12] MEDS: Senna/Docusate Sodium 8.6/50 MG Tablet PO SCH ×2 (09:36→20:13)
[2018-03-12] MEDS: Calcium Acetate 667 MG Capsule PO SCH ×3 (09:37→17:04)
[2018-03-12] MEDS: Folic Acid 1 MG Tablet PO SCH (09:37)
[2018-03-12] MEDS: levETIRAcetam 500 MG Tablet PO SCH ×2 (09:39→20:12)
[2018-03-12] MEDS: amLODIPine 5 MG Tablet PO SCH (09:40)
[2018-03-12] MEDS: Carvedilol 6.25 MG Tablet PO SCH ×2 (09:40→20:15)
[2018-03-12] MEDS: oxyCODONE/Acetaminophen 10/325 Tablet PO PRN ×2 (13:01→20:13)
--- NOTE | 2018-03-12 14:59 | P.PNNP ---
Subjective Interval history: Seen in morning. Hemodialysis yesterday tolerated well. Left sided flank pain has improved. No SOB, nausea, vomiting, or diarrhea. <LarySmiley - Last Filed: 03/12/18 14:54> Physical Exam Vital signs: Vital Signs 03/11/18 16:10 03/11/18 19:35 03/11/18 20:00 Temperature 97.8 F 98.1 F Pulse Rate 105 H 68 89 Respiratory Rate 20 20 Blood Pressure 98/71 L 133/57 L Pulse Oximetry 96 95 03/11/18 21:17 03/12/18 00:00 03/12/18 04:00 Temperature 98.0 F 98.4 F Pulse Rate 75 74 Respiratory Rate 20 20 Blood Pressure 102/64 115/71 Pulse Oximetry 97 95 95 03/12/18 07:20 03/12/18 09:33 03/12/18 10:41 Temperature 97.9 F Pulse Rate 82 72 Respiratory Rate 20 Blood Pressure 100/61 Pulse Oximetry 93 L 92 L 03/12/18 11:20 Temperature 98.0 F Pulse Rate 89 Respiratory Rate 18 Blood Pressure 90/59 L Pulse Oximetry 93 L Intake & Output 03/11/18 03/12/18 03/12/18 18:59 06:59 18:59 Intake Total 150 / 150 Output Total 1999 Balance -1850 / -1850 Intake: Oral 150 / 150 Output: Hemodialysis Amount 1999 Other: Date of Last Bowel Movement 03/07/18 Narrative: GENERAL: Well-nourished, well-developed adult male in no obvious distress. SKIN: Warm and dry. Dialysis catheter in right chest wall -no erythema or drainage. HEAD: Atraumatic. Normocephalic. CARDIOVASCULAR: Regular rate and rhythm. RESPIRATORY: No accessory muscle use. Clear to auscultation. Breath sounds equal bilaterally. GASTROINTESTINAL: Abdomen soft, non-tender, non-distended. Positive bowel sounds. MUSCULOSKELETAL: Extremities without clubbing, cyanosis, or edema. No obvious deformities. NEUROLOGICAL: Awake and alert. No obvious cranial nerve deficits. Motor grossly within normal limits. Normal speech. - Urinary Catheter Management Indwelling Temp Sensing Catheter Cath placed during this visit: yes, but has since been removed by the nurse Reason for continuing: Decision to DC catheter Insertion date: 01/14/18 Insertion time: 22:00 Removal date: 01/21/18 Removal time: 18:00 Straight Cath placed during this visit: yes, but has since been removed by the nurse Reason for continuing: Not indwelling catheter Insertion date: 03/07/18 Insertion time: 07:01 Removal date: 03/01/18 Removal time: 23:30 <Smiley Barth - Last Filed: 03/12/18 14:54> Vital signs: Vital Signs 03/11/18 21:17 03/12/18 00:00 03/12/18 04:00 Temperature 98.0 F 98.4 F Pulse Rate 75 74 Respiratory Rate 20 20 Blood Pressure 102/64 115/71 Pulse Oximetry 97 95 95 03/12/18 07:20 03/12/18 09:33 03/12/18 10:41 Temperature 97.9 F Pulse Rate 82 72 Respiratory Rate 20 Blood Pressure 100/61 Pulse Oximetry 93 L 92 L 03/12/18 11:20 03/12/18 15:30 03/12/18 15:37 Temperature 98.0 F 97.9 F Pulse Rate 89 76 Respiratory Rate 18 18 Blood Pressure 90/59 L Pulse Oximetry 93 L 94 L 03/12/18 16:00 Temperature Pulse Rate 83 Respiratory Rate Blood Pressure 103/60 Pulse Oximetry - Urinary Catheter Management Indwelling Temp Sensing Catheter Cath placed during this visit: no Straight Cath placed during this visit: no <Brianna Blevins - Last Filed: 03/12/18 21:00> Assessment and Plan - Assessment (1) Acute renal failure Code(s): N17.9 - Acute kidney failure, unspecified Status: Acute Plan: Remains dialysis dependent at this time. First HD 01/17/18 , RIJ PermCath placed 02/08/18 Continue HD MWF schedule for the present. 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 Monitor UOP and electrolytes for renal recovery. Ongoing azotemia Medications should be adjusted for the patient's estimated GFR if clinically indicated. Avoid agents with significant potential for nephrotoxicity possible including NSAIDs for analgesia, iodine contrast agents. Gadolinium is contraindicated if the GFR is below 30. Continue calcium acetate for hyperphosphatemia. CT abdomen done and noted Urology consulted. Hemodialysis yesterday with UF of 2 Liters HD tomorrow. Thus far no renal recovery noted. (2) Anemia Code(s): D64.9 - Anemia, unspecified Status: Acute Qualifiers: Anemia type: due to chronic kidney disease Plan: Epogen with dialysis. HGB stable (3) Hypertension Code(s): I10 - Essential (primary) hypertension Status: Acute Plan: Well controlled, will monitor. (4) Diabetes Code(s): E11.9 - Type 2 diabetes mellitus without complications Status: Acute Plan: Maintain blood sugars between 140 mg /dl to 180 mg/dl while hospitalized. Well controlled. <Smiley Barth - Last Filed: 03/12/18 14:54> - Assessment (1) Acute renal failure Code(s): N17.9 - Acute kidney failure, unspecified Status: Acute Plan: Patient seen and examine, agree with above. Now has no hematuria, and Hgb. is stable. Urology consulted. HD will be in AM. (2) Anemia Code(s): D64.9 - Anemia, unspecified Status: Acute Qualifiers: Anemia type: due to chronic kidney disease (3) Hypertension Code(s): I10 - Essential (primary) hypertension Status: Acute (4) Diabetes Code(s): E11.9 - Type 2 diabetes mellitus without complications Status: Acute <Brianna Blevins - Last Filed: 03/12/18 21:00>
--- NOTE | 2018-03-12 15:29 | P.PNPAL ---
Palliative care follow-up for further clarifications of goals of care. Meeting with patient and Tressa scheduled for tomorrow 03/13/18 at 2 PM. Telephone conversation with patient's , she reports that patient has been voicing frustration regarding his clinical condition, telling her that he wishes to discontinue hemodialysis. Case discussed with nephrology [employer] Smiley Mcgowan. Renal biopsy revealing ATN with nephropathy due to rhabdo. On hemodialysis since 01/17/18, no recovery in renal function as of today. Unknown at this time if any renal recovery in the future. Maddison Groves [employer]ER Palliative Care
--- NOTE | 2018-03-12 17:16 | P.PNIM ---
Subjective Interval history: Patient seen lying in bed. Reports that he feels much better and that his abdominal pain has improved. He has not been able to produce any urine since yesterday's episode of hematuria. No fever or chills. No nausea vomiting or diarrhea. Physical Exam Vital signs: Last Vital Signs Temp 97.9 F 03/12/18 15:30 Pulse 83 03/12/18 16:00 Resp 18 03/12/18 15:30 BP 103/60 03/12/18 16:00 Pulse Ox 94 L 03/12/18 15:37 Intake & Output 03/10/18 03/11/18 03/12/18 03/13/18 06:59 06:59 06:59 06:59 Intake Total 460 / 460 100 / 100 150 / 150 Output Total 300 / 300 1999 / 1999 Balance 460 / 460 -200 / -200 -1850 / -1850 Weight 95.6 kg 95.6 kg Narrative: GENERAL: Well-nourished, well-developed adult male in no obvious distress. SKIN: Warm and dry. Dialysis catheter in right chest wall -no erythema or drainage. HEAD: Atraumatic. Normocephalic. CARDIOVASCULAR: Regular rate and rhythm. RESPIRATORY: No accessory muscle use. Clear to auscultation. Breath sounds equal bilaterally. GASTROINTESTINAL: Abdomen soft, non-tender, non-distended. Positive bowel sounds. MUSCULOSKELETAL: Extremities without clubbing, cyanosis, or edema. No obvious deformities. NEUROLOGICAL: Awake and alert. No obvious cranial nerve deficits. Motor grossly within normal limits. Normal speech. Urinary Catheter Management Indwelling Temp Sensing Catheter: Cath placed during this visit: yes, but has since been removed by the nurse Insertion date: 01/14/18 Insertion time: 22:00 Removal date: 01/21/18 Removal time: 18:00 Straight: Cath placed during this visit: yes, but has since been removed by the nurse Insertion date: 03/07/18 Insertion time: 07:01 Removal date: 03/01/18 Removal time: 23:30 Results Labs CBC & Chem 7: 03/12/18 06:42 03/12/18 06:42 Imaging Imaging: Impressions Abdomen/Bladder Ultrasound 03/11/18 00:00 CONCLUSION: 1. Increased cortical echogenicity of both kidneys with preserved renal size. Findings could be characteristic of an acute medical renal disease. 2. Mild pelvocaliectasis of the left renal collecting system. Procedures Procedures: Left IJ HD tunneled cath placed 02/08/18 by IR Assessment and Plan (1) Gross hematuria: Code(s): R31.0 - Gross hematuria Status: Acute Onset Date: ~03/10/18 Plan 62-year-old white male who was admitted with cardiogenic shock and acute respiratory failure requiring CPR and epinephrine in the field, after being found down at home and being witnessed to possibly have undergone seizure-like activity. Intubation was attempted in the field but were unable to do so, patient was ultimately intubated in the hospital, started on pressors, placed in the ICU on mechanical ventilation. Found to have bilateral pneumothoraces with chest tubes placed, had developed some pneumoperitoneum which surgically deemed might have been a leak from his chest tubes as opposed to an acute surgical abdomen. Patient was started on antibiotics empirically for possible aspiration pneumonia but was ultimately discontinued off of them by infectious disease. Developed rhabdomyolysis with worsening acute renal failure which became sustained, with the patient now undergoing dialysis. Ultimately was discontinued off pressors, cardiology deferred heart cath due to renal failure. Patient had difficulty following commands after he was discontinued off of sedation and after extubation. Had an MRI done on 01/17 which showed no acute findings, only an older right parietal CVA. EEG was done which was unremarkable. ESRD on HD -dialysis M, W, Fr. 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 Abdominal pain returned; now resolved -CT abdomen and pelvis ordered -suspected partial left ureteral obstruction likely from biopsy. Intervention not indicated nephrology. 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 Possible anoxic brain injury -Neurology consulted and following -PT/OT/ST -ok to get out of bed per Neurology with assistance Dysphagia related to encephalopathy -ST rec mechanical soft, thin liquid diet Possible seizure -continue Keppra -EEG was negative NSTEMI -troponins 0.52, 1.89 & 2.37 respectively -cardiology consulted, rec conservative medical management -continue ASA, Coreg, Isosorbide, amlodipine and atorvastatin Bilateral pneumothoraces - stable -chest tube removed 01/28/18 Pneumomediastinum Pneumoperitoneum with right retroperitoneal gas around the right kidney -Likely secondary to bilateral pneumothoraces with no surgical intervention warranted per general surgery Acute respiratory failure -continue supplemental O2 PRN -pulmonary following Cirrhosis -likely secondary to alcohol abuse -continue BB Type II diabetes mellitus, uncontrolled ? -Not needing sliding scale coverage; frequently refusing 5 units Levemir at night -We will stop insulin for now; monitor daily blood glucose for need to restart Hypothyroidism -continue Synthroid Normocytic anemia - stable -s/p PRBC transfusion -epogen with dialysis MDM: self Code: DNR GI ppx: Protonix PO DVT ppx: Heparin SQ Discussed with: RN, patient, CM Dispo: awaiting placement once cleared by nephrology Progress Note: Quality VTE Deep Vein Thrombosis/Pulmonary Embolism Present on Admission: No
[2018-03-12] MEDS: QUEtiapine 25 MG Tablet PO SCH (20:11)
[2018-03-13] MEDS: Oral Hygiene Kit OROPHARYNG SCH ×4 (00:04→15:09)
[2018-03-13] MEDS: Levothyroxine 88 MCG Tablet PO SCH (05:33)
[2018-03-13 07:53] LABS: Hematocrit 32.5 % (39.0-51.0); Hemoglobin 10.4 gm/dL (13.0-17.0); Mean Corpuscular Hemoglobin 28.2 pg (27.0-34.0); Mean Corpuscular Volume 88.1 fL (80.0-100.0); Mean Platelet Volume 8.1 fL (7.0-11.0); Platelet Count 251 th/mm3 (150-450); Red Blood Count 3.69 mil/mm3 (4.50-5.90); White Blood Count 8.9 th/mm3 (4.0-11.0)
[2018-03-13 08:26] LABS: Alanine Aminotransferase 9 U/L (12-78); Albumin 2.8 g/dL (3.4-5.0); Alkaline Phosphatase 124 U/L (45-117); Anion Gap 7 meq/L (5-15); Aspartate Aminotransferase 26 U/L (15-37); Blood Urea Nitrogen 26 mg/dL (7-18); Calcium 9.6 mg/dL (8.5-10.1); Carbon Dioxide 31.1 meq/L (21.0-32.0); Chloride 93 meq/L (98-107); Glomerular Filtration Rate 7 mL/min (>89); Glucose,Random 85 mg/dL (74-106); Magnesium 2.4 mg/dL (1.5-2.5); Phosphorus 3.6 mg/dL (2.5-4.9); Sodium 131 meq/L (136-145); Total Protein 6.6 g/dL (6.4-8.2)
[2018-03-13 08:29] LABS: Potassium 5.1 meq/L (3.5-5.1)
[2018-03-13] MEDS: Folic Acid 1 MG Tablet PO SCH (09:20)
[2018-03-13] MEDS: levETIRAcetam 500 MG Tablet PO SCH ×2 (09:21→21:05)
[2018-03-13] MEDS: Calcium Acetate 667 MG Capsule PO SCH ×3 (09:21→17:06)
[2018-03-13] MEDS: Senna/Docusate Sodium 8.6/50 MG Tablet PO SCH ×2 (09:21→21:04)
[2018-03-13] MEDS: Carvedilol 6.25 MG Tablet PO SCH ×2 (09:22→21:09)
[2018-03-13] MEDS: amLODIPine 5 MG Tablet PO SCH (09:23)
--- NOTE | 2018-03-13 10:11 | P.PNNP ---
Addendum entered and electronically signed by MARKIE Murray 03/13/18 10:35: Hemodialysis discontinued secondary to patient refusing and becoming combative. Plan to have meeting with palliative care today. Original Note: Subjective Interval history: Seen during hemodialysis. Tolerating well. No shortness of breath, chest pain , nausea, or vomiting. <Smiley Barth - Last Filed: 03/13/18 10:08> Physical Exam Vital signs: Vital Signs 03/12/18 10:41 03/12/18 11:20 03/12/18 15:30 Temperature 98.0 F 97.9 F Pulse Rate 89 76 Respiratory Rate 18 18 Blood Pressure 90/59 L Pulse Oximetry 92 L 93 L 03/12/18 15:37 03/12/18 16:00 03/12/18 20:00 Temperature 97.9 F Pulse Rate 83 78 Respiratory Rate 18 Blood Pressure 103/60 108/67 Pulse Oximetry 94 L 96 03/12/18 20:03 03/12/18 21:47 03/12/18 23:56 Temperature Pulse Rate 76 65 Respiratory Rate Blood Pressure Pulse Oximetry 98 03/13/18 00:00 03/13/18 03:55 03/13/18 04:00 Temperature 97.4 F L 97.6 F Pulse Rate 66 67 66 Respiratory Rate 20 18 Blood Pressure 125/79 127/79 Pulse Oximetry 95 99 03/13/18 08:00 Temperature 97.5 F L Pulse Rate 66 Respiratory Rate 20 Blood Pressure 106/73 Pulse Oximetry 100 Intake & Output 03/12/18 03/13/18 03/13/18 18:59 06:59 18:59 Intake Total 240 / 240 Balance 240 / 240 Weight 95.6 kg Intake: Oral 240 / 240 Narrative: GENERAL: Well-nourished, well-developed adult male in no obvious distress. SKIN: Warm and dry. Dialysis catheter in right chest wall -no erythema or drainage. HEAD: Atraumatic. Normocephalic. CARDIOVASCULAR: Regular rate and rhythm. RESPIRATORY: No accessory muscle use. Clear to auscultation. Breath sounds equal bilaterally. GASTROINTESTINAL: Abdomen soft, non-tender, non-distended. Positive bowel sounds. MUSCULOSKELETAL: Extremities without clubbing, cyanosis, or edema. No obvious deformities. NEUROLOGICAL: Awake and alert. No obvious cranial nerve deficits. Motor grossly within normal limits. Normal speech. - Urinary Catheter Management Indwelling Temp Sensing Catheter Cath placed during this visit: yes, but has since been removed by the nurse Reason for continuing: Decision to DC catheter Insertion date: 01/14/18 Insertion time: 22:00 Removal date: 01/21/18 Removal time: 18:00 Straight Cath placed during this visit: yes, but has since been removed by the nurse Reason for continuing: Not indwelling catheter Insertion date: 03/07/18 Insertion time: 07:01 Removal date: 03/01/18 Removal time: 23:30 <Smiley Barth - Last Filed: 03/13/18 10:08> Vital signs: Vital Signs 03/12/18 21:47 03/12/18 23:56 03/13/18 00:00 Temperature 97.4 F L Pulse Rate 65 66 Respiratory Rate 20 Blood Pressure 125/79 Pulse Oximetry 98 95 03/13/18 03:55 03/13/18 04:00 03/13/18 08:00 Temperature 97.6 F 97.5 F L Pulse Rate 67 66 66 Respiratory Rate 18 20 Blood Pressure 127/79 106/73 Pulse Oximetry 99 100 03/13/18 12:00 03/13/18 16:00 03/13/18 18:27 Temperature 98 F 97.5 F L Pulse Rate 81 94 H 69 Respiratory Rate 20 20 Blood Pressure 98/72 L 94/59 L Pulse Oximetry 98 98 03/13/18 20:00 Temperature 98.4 F Pulse Rate 80 Respiratory Rate 18 Blood Pressure 96/69 L Pulse Oximetry 96 Intake & Output 03/13/18 03/13/18 03/14/18 06:59 18:59 06:59 Intake Total 240 / 240 Balance 240 / 240 Weight 95.6 kg Intake: Oral 240 / 240 - Urinary Catheter Management Indwelling Temp Sensing Catheter Cath placed during this visit: no Straight Cath placed during this visit: no <Brianna Blevins - Last Filed: 03/13/18 21:07> Assessment and Plan - Assessment (1) Acute renal failure Code(s): N17.9 - Acute kidney failure, unspecified Status: Acute Plan: Remains dialysis dependent at this time. First HD 01/17/18 , TIMOTEO PermCath placed 02/08/18 Continue HD MWF schedule for the present. 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 Monitor UOP and electrolytes for renal recovery. Medications should be adjusted for the patient's estimated GFR if clinically indicated. Avoid agents with significant potential for nephrotoxicity possible including NSAIDs for analgesia, iodine contrast agents. Gadolinium is contraindicated if the GFR is below 30. Continue calcium acetate for hyperphosphatemia. CT abdomen done and noted Urology consulted. Seen during Hemodialysis, 2 K bath, will remove fluid as tolerated. Thus far no renal recovery noted. Will be meeting with palliative care today (2) Anemia Code(s): D64.9 - Anemia, unspecified Status: Acute Qualifiers: Anemia type: due to chronic kidney disease Plan: Epogen with dialysis. HGB stable (3) Hypertension Code(s): I10 - Essential (primary) hypertension Status: Acute Plan: Well controlled, will monitor. (4) Diabetes Code(s): E11.9 - Type 2 diabetes mellitus without complications Status: Acute Plan: Maintain blood sugars between 140 mg /dl to 180 mg/dl while hospitalized. Well controlled. <Smiley Barth - Last Filed: 03/13/18 10:08> - Assessment (1) Acute renal failure Code(s): N17.9 - Acute kidney failure, unspecified Status: Acute Plan: Patient seen and examined, agree with above. Patient refuse for HD in AM, K was 5.1, will hold HD and try to Dialyze tomorrow. (2) Anemia Code(s): D64.9 - Anemia, unspecified Status: Acute Qualifiers: Anemia type: due to chronic kidney disease (3) Hypertension Code(s): I10 - Essential (primary) hypertension Status: Acute (4) Diabetes Code(s): E11.9 - Type 2 diabetes mellitus without complications Status: Acute <Brianna Blevins - Last Filed: 03/13/18 21:07>
--- NOTE | 2018-03-13 11:51 | P.PNIM ---
Subjective Interval history: Patient is seen in bed prior to going to dialysis. He is very anxious and agitated today. Says he does not want dialysis. Patient's decision-making ability and judgment is questionable. Offered reassurance and encouragement. Physical Exam Vital signs: Vital Signs 03/12/18 15:30 03/12/18 15:37 03/12/18 16:00 Temperature 97.9 F Pulse Rate 76 83 Respiratory Rate 18 Blood Pressure 103/60 Pulse Oximetry 94 L 03/12/18 20:00 03/12/18 20:03 03/12/18 21:47 Temperature 97.9 F Pulse Rate 78 76 Respiratory Rate 18 Blood Pressure 108/67 Pulse Oximetry 96 98 03/12/18 23:56 03/13/18 00:00 03/13/18 03:55 Temperature 97.4 F L Pulse Rate 65 66 67 Respiratory Rate 20 Blood Pressure 125/79 Pulse Oximetry 95 03/13/18 04:00 03/13/18 08:00 Temperature 97.6 F 97.5 F L Pulse Rate 66 66 Respiratory Rate 18 20 Blood Pressure 127/79 106/73 Pulse Oximetry 99 100 Intake & Output 03/12/18 03/13/18 03/13/18 18:59 06:59 18:59 Intake Total 240 / 240 Balance 240 / 240 Weight 95.6 kg Intake: Oral 240 / 240 Narrative: GENERAL: Well-nourished, well-developed adult male in no obvious distress. SKIN: Warm and dry. Dialysis catheter in right chest wall -no erythema or drainage. HEAD: Atraumatic. Normocephalic. CARDIOVASCULAR: Regular rate and rhythm. RESPIRATORY: No accessory muscle use. Clear to auscultation. Breath sounds equal bilaterally. GASTROINTESTINAL: Abdomen soft, non-tender, non-distended. Positive bowel sounds. MUSCULOSKELETAL: Extremities without clubbing, cyanosis, or edema. No obvious deformities. NEUROLOGICAL: Awake and alert. No obvious cranial nerve deficits. Motor grossly within normal limits. Normal speech. Urinary Catheter Management Indwelling Temp Sensing Catheter: Cath placed during this visit: yes, but has since been removed by the nurse Reason for continuing: Decision to DC catheter Insertion date: 01/14/18 Insertion time: 22:00 Removal date: 01/21/18 Removal time: 18:00 Straight: Cath placed during this visit: yes, but has since been removed by the nurse Reason for continuing: Not indwelling catheter Insertion date: 03/07/18 Insertion time: 07:01 Removal date: 03/01/18 Removal time: 23:30 Results Labs CBC & Chem 7: 03/13/18 07:06 03/13/18 07:06 Procedures Procedures: Left IJ HD tunneled cath placed 02/08/18 by IR Assessment and Plan (1) Gross hematuria: Code(s): R31.0 - Gross hematuria Status: Acute Onset Date: ~03/10/18 Plan 62-year-old white male who was admitted with cardiogenic shock and acute respiratory failure requiring CPR and epinephrine in the field, after being found down at home and being witnessed to possibly have undergone seizure-like activity. Intubation was attempted in the field but were unable to do so, patient was ultimately intubated in the hospital, started on pressors, placed in the ICU on mechanical ventilation. Found to have bilateral pneumothoraces with chest tubes placed, had developed some pneumoperitoneum which surgically deemed might have been a leak from his chest tubes as opposed to an acute surgical abdomen. Patient was started on antibiotics empirically for possible aspiration pneumonia but was ultimately discontinued off of them by infectious disease. Developed rhabdomyolysis with worsening acute renal failure which became sustained, with the patient now undergoing dialysis. Ultimately was discontinued off pressors, cardiology deferred heart cath due to renal failure. Patient had difficulty following commands after he was discontinued off of sedation and after extubation. Had an MRI done on 01/17 which showed no acute findings, only an older right parietal CVA. EEG was done which was unremarkable. ESRD on HD -dialysis M, W, Fr. 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 Abdominal pain returned; now resolved -CT abdomen and pelvis ordered -suspected partial left ureteral obstruction likely from biopsy. Intervention not indicated nephrology. 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 Possible anoxic brain injury -Neurology consulted and following -PT/OT/ST -ok to get out of bed per Neurology with assistance Dysphagia related to encephalopathy -ST rec mechanical soft, thin liquid diet Possible seizure -continue Keppra -EEG was negative NSTEMI -troponins 0.52, 1.89 & 2.37 respectively -cardiology consulted, rec conservative medical management -continue ASA, Coreg, Isosorbide, amlodipine and atorvastatin Bilateral pneumothoraces - stable -chest tube removed 01/28/18 Pneumomediastinum Pneumoperitoneum with right retroperitoneal gas around the right kidney -Likely secondary to bilateral pneumothoraces with no surgical intervention warranted per general surgery Acute respiratory failure -continue supplemental O2 PRN -pulmonary following Cirrhosis -likely secondary to alcohol abuse -continue BB Type II diabetes mellitus, uncontrolled ? -Not needing sliding scale coverage; frequently refusing 5 units Levemir at night -We will stop insulin for now; monitor daily blood glucose for need to restart Hypothyroidism -continue Synthroid Normocytic anemia - stable -s/p PRBC transfusion -epogen with dialysis MDM: self Code: DNR GI ppx: Protonix PO DVT ppx: Heparin SQ Discussed with: RN, patient, CM Dispo: awaiting placement once cleared by nephrology. Palliative care also following. Progress Note: Quality VTE Deep Vein Thrombosis/Pulmonary Embolism Present on Admission: No
--- NOTE | 2018-03-13 12:01 | P.PNPAL ---
Reason for Visit Reason for visit: a. To assist with evaluation and management of symptoms including: Pain, anxiety/agitation. b. To assist medical decision maker(s) with: better understanding of current medical conditions; weighing benefits/burdens of medical treatment options; making medical treatment decisions. Subjective Subjective/Interval History: Mr. Canseco is a 62-year-old male with a medical history significant for EtOH abuse, diabetes mellitus, hypertension, prior CVA and stroke. Patient presented to ED on 01/14/18 after he was found down by family. During presentation, patient sustained 2 separate cardiac events requiring CPR with ROSC after 2 rounds. He was admitted for severe sepsis, respiratory failure required intubation and mechanical ventilation, seizure activity and pneumoperitoneum requiring chest tubes. Patient was extubated on 01/25/18. Clinical course complicated by renal failure requiring renal replacement therapy since 01/17/18. Patient with no renal recovery, renal biopsy 03/07/18 revealing ATN with nephropathy due to rhabdo. Patient now presenting with prolonged hospitalization, profound physical deconditioning, no renal function recovery and persistent symptoms to include anxiety/agitation, episodes of combativeness, pain and pruritus. Palliative care following for further clarifications of goals of care, symptom management. Patient seen during dialysis. Dialysis not started given patient's anxiety/ agitation. Patient alert to self, place and limited to situation. Verbal, garbled speech but able to communicate. Patient clearly anxious, tearful at times. Patient endorsing generalized pruritus, pain to left flank and left nostril. When asked why he was hospitalized, patient tells me "because I have problems". Ask patient to elaborate further, patient tells me "I don't know". Reviewed clinical course and current medical management, patient telling me "yes , I remember". Verbalizing multiple times "please help me". When asked what would happen if he were to stop hemodialysis, patient stated "then I ". Patient tells me that his goal is to "feel better and return back home". Reviewed current requirements for hemodialysis in the setting of kidney failure , reviewed profound physical deconditioning and that given his level of needs/ care, he requires rehabilitation or long-term placement. Patient tearful, verbalizing "I want to go home". He appears to have poor insight into his complicated clinical condition. Stating at times "I want to live". Palliative care meeting with patient's is scheduled for today at 2 PM. Meeting with patient's has been rescheduled for tomorrow 03/14 at 2 PM, pending psych eval to determine patient medical decision-making capacity. Telephone conversation with patient's . Medical update provided. Reviewed concerns of patient's medical decision-making capacity, worsening symptom burden to include anxiety, agitation and combativeness. verbalized being concerned of patient's quality of life in the setting of multiple acute on chronic conditions, prolonged hospitalization and worsening of symptoms. Case discussed with nephrology Smiley Carter GLUING PRESSMAN and internal medicine GLUING PRESSMAN Leonila Rodriguez. Advance Directives Living Will: Never completed Health Care Surrogate: Never completed Durable Power of [employer]electric [employer] Structural Engineer: Never completed Objective Vital Signs: Vital Signs 03/12/18 15:30 03/12/18 15:37 03/12/18 16:00 Temperature 97.9 F Pulse Rate 76 83 Respiratory Rate 18 Blood Pressure 103/60 Pulse Oximetry 94 L 03/12/18 20:00 03/12/18 20:03 03/12/18 21:47 Temperature 97.9 F Pulse Rate 78 76 Respiratory Rate 18 Blood Pressure 108/67 Pulse Oximetry 96 98 03/12/18 23:56 03/13/18 00:00 03/13/18 03:55 Temperature 97.4 F L Pulse Rate 65 66 67 Respiratory Rate 20 Blood Pressure 125/79 Pulse Oximetry 95 03/13/18 04:00 03/13/18 08:00 Temperature 97.6 F 97.5 F L Pulse Rate 66 66 Respiratory Rate 18 20 Blood Pressure 127/79 106/73 Pulse Oximetry 99 100 Intake & Output 03/12/18 03/13/18 03/13/18 18:59 06:59 18:59 Intake Total 240 / 240 Balance 240 / 240 Weight 95.6 kg Intake: Oral 240 / 240 Physical Exam: CONSTITUTIONAL/GENERAL: This is a well nourished male patient, lying in bed, anxious. TUBES/LINES/DRAINS: PIV, right Perma-Cath SKIN: Pale. Scattered areas of small scabs on bilateral arms. CARDIOVASCULAR: Regular rate and rhythm without murmurs, gallops, or rubs. No JVD. Peripheral pulses symmetric. RESPIRATORY/CHEST: Symmetric, unlabored respirations. Lungs diminished. On room air. GASTROINTESTINAL: Abdomen soft, non-tender, nondistended. No guarding. Bowel sounds present. GENITOURINARY: Without palpable bladder distension. MUSCULOSKELETAL: Left upper extremity weak, able to move hand and forearm weekly. Right upper extremity with full ROM, generalized weakness, BLE generalized weakness L>R. NEUROLOGICAL: Alert, some answers are appropriate, oriented to place, self with poor insight. PSYCHIATRIC: Anxious, agitated. Diagnostic Tests Laboratory: Laboratory Results - last 72 hr 03/10/18 03/11/18 03/11/18 12:01 07:36 07:36 WBC 11.3 H RBC 3.78 L Hgb 11.1 L Hct 32.8 L MCV 87.0 MCH 29.5 MCHC 33.9 RDW 15.8 Plt Count 252 MPV 8.0 Sodium 131 L Potassium 4.4 Chloride 92 L Carbon Dioxide 29.0 Anion Gap 10 BUN 32 H Creatinine 9.09 H Estimated GFR 6 L POC Glucose 104 Random Glucose 96 Calcium 9.1 Phosphorus 4.1 Magnesium 2.4 Total Bilirubin 0.8 AST 9 L ALT 8 L Alkaline Phosphatase 139 H Total Protein 6.8 Albumin 3.0 L 03/11/18 03/11/18 03/12/18 08:41 12:22 06:42 WBC 9.5 RBC 3.86 L Hgb 10.9 L Hct 34.2 L MCV 88.5 MCH 28.2 MCHC 31.9 L RDW 15.8 Plt Count 252 MPV 8.2 Sodium Potassium Chloride Carbon Dioxide Anion Gap BUN Creatinine Estimated GFR POC Glucose 89 85 Random Glucose Calcium Phosphorus Magnesium Total Bilirubin AST ALT Alkaline Phosphatase Total Protein Albumin 03/12/18 03/12/18 03/13/18 06:42 09:47 07:06 WBC 8.9 RBC 3.69 L Hgb 10.4 L Hct 32.5 L MCV 88.1 MCH 28.2 MCHC 32.0 RDW 16.0 Plt Count 251 MPV 8.1 Sodium 134 L Potassium 4.8 Chloride 96 L Carbon Dioxide 33.1 H Anion Gap 5 BUN 20 H Creatinine 6.75 H Estimated GFR 8 L POC Glucose 104 Random Glucose 83 Calcium 9.3 Phosphorus 3.1 D Magnesium 2.4 Total Bilirubin 0.7 AST 13 L ALT 8 L Alkaline Phosphatase 129 H Total Protein 6.8 Albumin 2.9 L 03/13/18 03/13/18 07:06 09:19 WBC RBC Hgb Hct MCV MCH MCHC RDW Plt Count MPV Sodium 131 L Potassium 5.1 Chloride 93 L Carbon Dioxide 31.1 Anion Gap 7 BUN 26 H Creatinine 7.95 H Estimated GFR 7 L POC Glucose 88 Random Glucose 85 Calcium 9.6 Phosphorus 3.6 Magnesium 2.4 Total Bilirubin 0.7 AST 26 ALT 9 L Alkaline Phosphatase 124 H Total Protein 6.6 Albumin 2.8 L Result Diagrams: 03/13/18 07:06 03/13/18 07:06 Procedures: 01/14: Intubation 01/14: Right and left chest tube placement 01/14: Right brachial arterial line placement 01/14: Right subclavian central line placement 01/17: Placement of L IJ hemodialysis catheter. 01/25: Extubated Assessment and Plan - Disease Oriented Problem List (1) End stage renal disease on dialysis (2) Bilateral pneumothoraces (3) Alcohol abuse (4) Rhabdomyolysis (5) NSTEMI (non-ST elevated myocardial infarction) (6) Cirrhosis (7) Diabetes - Symptom Scale (1) Weakness 0-10 Scale: Unable to quantify (2) Pain 0-10 Scale: Unable to quantify (3) Anxiety 0-10 Scale: Unable to quantify Pertinent Non-Medical Issues: Psychosocial: He lived in many states growing up. 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 He has been once to his current , from who he is now and has no children. Spiritual: Box Estimator available. Legal: No advance directives completed. Ethical issues impacting care: Patient does not appear capacitated for decision- making. . Important Contacts: : Tressa Canseco [phone] Sister: Lala Canseco . Prognosis: Mr. Canseco is a 62-year-old male with a medical history significant for EtOH abuse, diabetes mellitus, hypertension, prior CVA and stroke. Patient presented to ED on 01/14/18 after he was found down by family. During presentation, patient sustained 2 separate cardiac events requiring CPR with ROSC after 2 rounds. He was admitted for severe sepsis, respiratory failure required intubation and mechanical ventilation, seizure activity and pneumoperitoneum requiring chest tubes. Patient was extubated on 01/25/18. Clinical course complicated by renal failure requiring renal replacement therapy since 01/17/18. Patient with no renal recovery, renal biopsy 03/07/18 revealing ATN with nephropathy due to rhabdo. Patient now presenting with prolonged hospitalization, profound physical deconditioning, no renal function recovery and persistent symptoms to include anxiety/agitation, episodes of combativeness, pain and pruritus. Poor prognosis for improved quality of life support. Patient remains at high risk for further decompensation, continued decline and . Code Status: No Code DNR Plan: * CODE STATUS: DNR/DNI. * MEDICAL DECISION-MAKING: Patient with limited participation in medical decision making in the setting of likely anoxic damage status post 2 cardiac arrests, prior CVA and significant EtOH abuse. During my assessment today, patient with poor insight into his complicated clinical condition. Appears unable to weight benefits versus burdens of treatment options. Palliative care recommends psych evaluation for decision-making capacity. No advance directives reported as completed. As per [place] statue, healthcare proxy decision making falls to patient's Tressa Canseco. She has accepted this role. * GOALS OF CARE: Ongoing discussion. Patient with poor insight into his complicated clinical condition, palliative care recommends psych evaluation to determine decision-making capacity. Palliative care meeting with patient's has been rescheduled for tomorrow 03/14 at 2 PM. * SYMPTOMS: * Anxiety/agitation/combativeness: Significantly worsening. Patient unable to complete hemodialysis treatment today given agitation/combativeness. He was noted very anxious. Significant history of EtOH abuse, patient status post 2 cardiac arrests with possible anoxic brain damage. On Seroquel 50mg at HS since prior to this acute event. Seroquel has continued at the same dose. Palliative care recommends psych evaluation for assistance with significant symptom burden. * Pain: Patient endorsing pain to left flank and nostril??. He was unable to elaborate on complain. As per patient's , patient has been complaining of generalized pain since admission. Pain likely secondary to prolonged hospitalization, bedbound state, multiple interventions. Currently on Percocet 5-10 mg as needed. In the past 24 hours, patient has received 2 doses of 10 mg with moderate effect. No further recommendations at this time in the setting of worsening anxiety and agitation, pending psych eval. * Pruritus: Patient endorsing generalized itchiness, secondary to end-stage renal. Benadryl 25 mg every 6 hours available as needed. No other recommendations. * Weakness: Profound physical deconditioning in the setting of prolonged hospitalization, acute on chronic illnesses, end-stage renal on dialysis, prior CVA. Currently working with PT/OT. PT OT at rehab recommended, however, patient with no payer source at this time for rehab. * Recommendations for psych eval has been discussed with internal medicine, Leonila Rodriguez GLUING PRESSMAN. * Palliative care will continue to follow-up for further clarifications of goals of care as patient's clinical course continues to evolve.. * Palliative care contact information has been provided to patient's . . Time Spent Total Floor Time (mins): 51 (Total time to include review of summarization of medical records, physical exam, goals of care conversation with patient and , case discussion with attending and nephrology.) >50% Time in Counseling or Coordination of Care: Yes (Total visit time = 51 minutes; > 50% spent counseling/coordinating care) Attestation Attestation: To help prompt me to consider important information that might be impacting today's encounter and assessment, information from prior notes written by myself or my colleagues may have been "brought forward" into today's note. My signature on this note, however, is an attestation that I personally performed the exam, history, and/or decision-making noted today, and, unless otherwise indicated, the interactions with patient, family, and staff as well as the review of records all occurred today. I also attest that the listed assessment and stated plan reflect my best clinical judgment today based on the combination of historical information, prior notes, and today's exam/ interactions. When time spent is documented, it refers only to time spent today by the signer, or if indicated, combined time spent today by collaborating physician/nurse practitioner.
[2018-03-13 16:39] LABS: Hepatitis A IgM Antibody Nonreactive (Nonreactive); Hepatitits B Surface Antigen Nonreactive (Nonreactive)
[2018-03-13] MEDS: oxyCODONE/Acetaminophen 10/325 Tablet PO PRN ×2 (17:06→23:26)
[2018-03-13] MEDS: QUEtiapine 25 MG Tablet PO SCH (21:05)
[2018-03-14] MEDS: Bisacodyl 10 MG Supp RECTAL PRN (04:49)
[2018-03-14] MEDS: Oral Hygiene Kit OROPHARYNG SCH ×4 (05:12→16:34)
[2018-03-14] MEDS: Levothyroxine 88 MCG Tablet PO SCH (05:25)
[2018-03-14 08:26] LABS: Hematocrit 32.5 % (39.0-51.0); Hemoglobin 10.6 gm/dL (13.0-17.0); Mean Corpuscular HGB Conc 32.6 % (32.0-36.0); Mean Corpuscular Hemoglobin 28.4 pg (27.0-34.0); Mean Corpuscular Volume 87.1 fL (80.0-100.0); Mean Platelet Volume 7.9 fL (7.0-11.0); Platelet Count 258 th/mm3 (150-450); Red Blood Count 3.73 mil/mm3 (4.50-5.90); Red Cell Distribution Width 15.9 % (11.6-17.2); White Blood Count 10.3 th/mm3 (4.0-11.0)
[2018-03-14 08:34] LABS: Alanine Aminotransferase 8 U/L (12-78); Albumin 2.9 g/dL (3.4-5.0); Anion Gap 8 meq/L (5-15); Aspartate Aminotransferase 12 U/L (15-37); Blood Urea Nitrogen 33 mg/dL (7-18); Calcium 9.2 mg/dL (8.5-10.1); Carbon Dioxide 28.5 meq/L (21.0-32.0); Chloride 95 meq/L (98-107); Glomerular Filtration Rate 6 mL/min (>89); Glucose,Random 109 mg/dL (74-106); Magnesium 2.5 mg/dL (1.5-2.5); Potassium 4.9 meq/L (3.5-5.1); Sodium 131 meq/L (136-145)
[2018-03-14 08:41] LABS: Alkaline Phosphatase 144 U/L (45-117); Phosphorus 3.6 mg/dL (2.5-4.9); Total Protein 6.5 g/dL (6.4-8.2)
[2018-03-14] MEDS: Calcium Acetate 667 MG Capsule PO SCH ×3 (09:17→17:25)
[2018-03-14] MEDS: Carvedilol 6.25 MG Tablet PO SCH ×2 (09:17→21:13)
[2018-03-14] MEDS: Heparin 10,000 UNITS/10 ML Vial (for IV use) OTHER PRN (11:59)
[2018-03-14] MEDS: Senna/Docusate Sodium 8.6/50 MG Tablet PO SCH ×2 (13:11→21:08)
[2018-03-14] MEDS: levETIRAcetam 500 MG Tablet PO SCH ×2 (13:11→21:07)
[2018-03-14] MEDS: Folic Acid 1 MG Tablet PO SCH (13:11)
[2018-03-14] MEDS: amLODIPine 5 MG Tablet PO SCH (13:12)
--- NOTE | 2018-03-14 13:36 | P.CONPSY ---
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 Alaniz, patient Seroquel 25 mg twice daily, Zoloft 50 mg , previous psychiatric admissions, hospitalized here in [place] in the summer 2017, with medical history of ESRD on HD, cirrhosis, hypothyroidism, DM, hypertension who was admitted with cardiogenic shock and acute respiratory failure requiring CPR and epinephrine in the field, after being found down at home and being witnessed to possibly have undergone seizure-like activity. The patient has been refusing to have hemodialysis, has been quite irritable, consulted to me to assess decision-making capacity. Documentation reviewed. The patient was evaluated while having hemodialysis. He was found sleeping, but arousable. The patient was quite calm, superficially cooperative, a little bit sleepy. He reports feeling much better now. He says that his main medical problem is that he is an alcoholic. He reports to be in a good mood, he says that at times he becomes irritable when he feels that he is not being understood. But, at this moment he is looking forward to continue medical treatment, he denies symptomatology of depression, anxiety, kenny or psychosis. The patient denies suicidal and homicidal ideation. He is fully oriented x3, able to tell me the reason of the hospitalization, in agreement to continue medical recommendations. Past psychiatric history: The patient reports that he has a previous diagnosis of depression and bipolar disorder. He follows with Dr. Alaniz, although he reports he has been nonadherent with his prescribed psychotropics. He cannot recall the last time he was psychiatrically admitted. He denies a history of suicide attempts. Family history: The patient reports family history of depression in his mother and father. No family history of substance use disorder. No reported family history of suicide. Chemical dependency history: Patient describes himself as a binge drinker. Says he drinks vodka. When he does drink, he can consume up to 2 gallons of vodka in a day. He denies history of blackouts. Denies history of DTs or seizures. Denies any other substance use. Social history: Patient reports that he lives with his . He is from his . He has no children. 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 He denies any history. Denies any legal history. Denies any access to guns or firearms. [facility] - History History Provided By: Patient, Significant Other, Medical Record - Medical History Medical History: Medical History (Last Reviewed 03/11/18 @ 08:36 by Carmel Garcia) Anxiety CVA (cerebral vascular accident) Diabetes ETOH abuse Hypertension No significant past surgical history - Family History Family History: Family History (Last Reviewed 03/09/18 @ 08:09 by Griselda Alicea) Mother Kidney carcinoma Father CAD (coronary artery disease) - Tobacco History Second Hand Smoke Exposure: No (quit 2004) Tobacco Use In Past 30 Days: No Smoking Status: Former smoker Tobacco Type: Cigarettes - Alcohol History How Often Do You Have a Drink Containing Alcohol: 4 or more times a week (1 liter vodka daily) - Substance Use History Substance History: Past History - Travel History Recent Travel in the [facility] Within the Last 8 Weeks: No Recent Travel Out of the Country Within the Last 8 Weeks: No - Immunization History Tetanus Immunization: Unsure Hx Influenza Vaccine This Season: No Medications and Allergies Active Medications: Active Medications Acetaminophen (Tylenol) 650 mg PO Q6HR PRN PRN Reason: PAIN SCALE 1 TO 2 Al Hydroxide/Mg Hydroxide (Milk Of Orion Cooper) 30 ml PO Q12H PRN PRN Reason: Mild Constipation Last Admin: 03/14/18 01:59 Dose: 30 ml Albuterol (Duoneb Neb (Prn)) 1 ampul NEB Q2HR NEB PRN PRN Reason: DYSPNEA Amlodipine Besylate (Norvasc) 5 mg PO DAILY [facility] Last Admin: 03/14/18 13:12 Dose: Not Given Aspirin (Aspirin Chew) 81 mg PO DAILY [facility] Last Admin: 03/14/18 13:11 Dose: 81 mg Atorvastatin Calcium (Lipitor) 20 mg PO DAILY [facility] Last Admin: 03/14/18 13:11 Dose: 20 mg Bisacodyl (Dulcolax Supp) 10 mg RECTAL DAILY PRN PRN Reason: SEVERE CONSITIPATION Last Admin: 03/14/18 04:49 Dose: 10 mg Calcium Acetate (Phoslo) 667 mg PO TID [facility] Last Admin: 03/14/18 13:11 Dose: 667 mg Carvedilol (Coreg) 6.25 mg PO BID [facility] Last Admin: 03/14/18 09:17 Dose: Not Given Clonidine HCl (Catapres) 0.1 mg PO UNSCH PRN PRN Reason: SEE LABEL COMMENTS Dextrose (D50w Vial) 50 ml IV.PUSH UNSCH PRN PRN Reason: PER HYPOGLYCEMIA PROTOCOL Diphenhydramine HCl (Benadryl) 25 mg PO Q6H PRN PRN Reason: ITCHING Last Admin: 03/13/18 21:05 Dose: 25 mg Diphenhydramine HCl (Benadryl Inj) 25 mg IV.PUSH Q6H PRN PRN Reason: URTICARIA Epoetin Jaleel (Epogen Inj) 10,000 unit DIALYSYS MoWeFr [facility] Last Admin: 03/14/18 11:59 Dose: 10,000 unit Folic Acid (Folic Acid) 1 mg PO DAILY [facility] Last Admin: 03/14/18 13:11 Dose: 1 mg Gelatin (Gelfoam 12 Mm/7 Mm Topical) 1 foam TOPICAL PRN PRN PRN Reason: help stop bleeding from site Gentamicin Sulfate (Gentamicin Inj) 20 mg OTHER WITH DIALYSIS PRN PRN Reason: Dwell Gentamycin Lock Last Admin: 03/14/18 11:58 Dose: 20 mg Glucagon (Glucagon Inj) 1 mg OTHER PRN PRN PRN Reason: for Hypoglycemia Protocol Heparin Sodium (Porcine) (Heparin Inj) 0 units IV.FLUSH WITH DIALYSIS PRN PRN Reason: Flush each lumen Last Admin: 01/25/18 08:38 Dose: 2,000 units Heparin Sodium (Porcine) (Heparin Inj) 8,000 units OTHER WITH DIALYSIS PRN PRN Reason: for machine prime Heparin Sodium (Porcine) (Heparin Inj) 1,000 units OTHER WITH DIALYSIS PRN PRN Reason: Dwell Heparin to Fill Catheter Last Admin: 03/14/18 11:59 Dose: 1,000 units Sodium Chloride (Ns Inj) 1,000 mls @ 0 mls/hr OTHER .Q0M PRN PRN Reason: for prime and rinse back Last Infusion: 01/26/18 02:33 Dose: Infused Sodium Chloride (Ns Inj) 1,000 mls @ 200 mls/hr OTHER .Q5H PRN PRN Reason: for dialyzer flush PRN Albumin Human (Flexbumin 25% Inj) 100 mls @ 60 mls/hr IV.SIG WITH DIALYSIS PRN PRN Reason: hypotension / volume replace Sodium Chloride (Ns Inj) 1,000 mls @ 0 mls/hr OTHER .Q0M PRN PRN Reason: for prime and rinse back Sodium Chloride (Ns Inj) 1,000 mls @ 200 mls/hr OTHER .Q5H PRN PRN Reason: for dialyzer flush PRN Sodium Chloride (Ns Inj) 1,000 mls @ 0 mls/hr IV.CONT .Q0M PRN PRN Reason: hypotension / volume replace Isosorbide Dinitrate (Isordil) 20 mg PO Q8HR [facility] Last Admin: 03/14/18 05:13 Dose: Not Given Lactulose (Lactulose Liq) 30 ml PO DAILY [facility] Last Admin: 03/14/18 13:12 Dose: 30 ml Levetiracetam (Keppra) 500 mg PO BID [facility] Last Admin: 03/14/18 13:11 Dose: 500 mg Levothyroxine Sodium (Synthroid) 88 mcg PO DAILY@0600 [facility] Last Admin: 03/14/18 05:25 Dose: 88 mcg Mannitol (Mannitol Inj) 12.5 gm IV.PUSH UNSCH PRN PRN Reason: hypotension / volume replace Miscellaneous Medication () 1 each OROPHARYNG 0000,0400,1200,1600 [facility] Last Admin: 03/14/18 12:02 Dose: Not Given Multivitamins (Theragran) 1 tab PO DAILY [facility] Last Admin: 03/14/18 13:11 Dose: 1 tab Naloxone HCl (Narcan Inj) 0.4 mg IV.PUSH UNSCH PRN PRN Reason: SEE LABEL COMMENTS Nitroglycerin (Nitrostat Sl) 0.4 mg SL Q5M PRN PRN Reason: CHEST PAIN Ondansetron HCl (Zofran Inj) 4 mg IV.PUSH Q6H PRN PRN Reason: NAUSEA Last Admin: 03/12/18 13:00 Dose: 4 mg Oxycodone/Acetaminophen (Percocet 10/325 Mg) 1 tab PO Q6H PRN PRN Reason: PAIN SCALE 6 TO 10 Last Admin: 03/13/18 23:26 Dose: 1 tab Oxycodone/Acetaminophen (Percocet 5/325 Mg) 1 tab PO Q6H PRN PRN Reason: PAIN SCALE 3 TO 5 Pantoprazole Sodium (Protonix) 40 mg PO DAILY [facility] Last Admin: 03/14/18 13:11 Dose: 40 mg Quetiapine Fumarate (Seroquel) 50 mg PO HS [facility] Last Admin: 03/13/18 21:05 Dose: 50 mg Senna/Docusate Sodium (Ayleen-Colace) 1 tab PO BID [facility] Last Admin: 03/14/18 13:11 Dose: 1 tab Sennosides (Senokot) 17.2 mg PO Q12H PRN PRN Reason: Moderate Constipation Last Admin: 03/14/18 01:59 Dose: 17.2 mg Sodium Chloride (Ns Flush) 2 ml IV.FLUSH BID [facility] Last Admin: 03/14/18 13:12 Dose: 2 ml Sodium Chloride (Ns Flush) 2 ml IV.FLUSH PRN PRN PRN Reason: FLUSH AFTER USING IV ACCESS Last Admin: 03/01/18 04:34 Dose: 2 ml Sodium Chloride (Ns Flush) 0 ml IV.FLUSH PRN PRN PRN Reason: FLUSH AFTER USING IV ACCESS Sodium Chloride (Ns Flush) 5 ml IV.FLUSH PRN PRN PRN Reason: flush each lumen during HD Terbutaline Sulfate (Brethine Inj) 1 mg SQ UNSCH PRN PRN Reason: For Extravasation Thiamine HCl (Vitamin B1) 100 mg PO DAILY [facility] Last Admin: 03/14/18 13:11 Dose: 100 mg Allergies Allergy/AdvReac Type Severity Reaction Status Date / Time erythromycin base Allergy Severe Hives Verified 01/14/18 03:00 penicillin G Allergy Severe Hives Verified 01/14/18 03:00 Exam Vital signs: Vital Signs 03/13/18 16:00 03/13/18 18:27 03/13/18 20:00 Temperature 97.5 F L 98.4 F Pulse Rate 94 H 69 80 Respiratory Rate 20 18 Blood Pressure 94/59 L 96/69 L Pulse Oximetry 98 96 03/13/18 21:30 03/14/18 00:00 03/14/18 01:47 Temperature 99.0 F Pulse Rate 80 81 Respiratory Rate 18 Blood Pressure 123/70 Pulse Oximetry 96 96 03/14/18 04:00 03/14/18 08:00 Temperature 98.7 F 97.6 F Pulse Rate 76 74 Respiratory Rate 18 20 Blood Pressure 103/63 126/80 Pulse Oximetry 95 96 Intake & Output 03/13/18 03/14/18 03/14/18 18:59 06:59 18:59 Output Total 1999 Balance -1999 Output: Hemodialysis Amount 1999 Other: # Voids 0 Date of Last Bowel Movement 03/13/18 Mental Status Examination Appearance: Appropriate Consciousness: Alert Orientation: x4 Motor Activity: Normal gait Speech: Unremarkable Language: Adequate Fund of Knowledge: Adequate Attention and Concentration: Adequate Memory: Unremarkable Mood: Appropriate Affect: Appropriate Thought Process & Associations: Intact Thought Content: Appropriate Hallucination Type: None Delusion Type: None Suicidal Ideation: No Suicidal Plan: No Suicidal Intention: No Homicidal Ideation: No Homicidal Plan: No Homicidal Intention: No Insight: Fair Judgment: Impulsive Assessment and Plan - Assessment (1) Acute adjustment disorder Code(s): F43.20 - Adjustment disorder, unspecified Status: Acute - Plan Plan: On my psychiatric evaluation today the patient basically does not present any neuropsychiatric symptoms or require an immediate psychiatric intervention. The patient is fully oriented x3, logical, coherent and relevant. Denies symptoms of depression, anxiety, kenny and psychosis. Denies suicidal and homicidal ideation. Denies visual and auditory hallucinations. The patient in agreement with medical recommendation, having hemodialysis at this right moment. Patient has decision-making capacity to participate medical decisions at this moment. Continue current psychotropic regimen. No admission indicated. Support, motivation, psychoeducation provided. Consult appreciated. Justification for Continued Inpatient Stay: No admission is indicated at the moment.
--- NOTE | 2018-03-14 15:01 | P.PNPAL ---
Reason for Visit Reason for visit: a. To assist with evaluation and management of symptoms including: Pain, anxiety/agitation. b. To assist medical decision maker(s) with: better understanding of current medical conditions; weighing benefits/burdens of medical treatment options; making medical treatment decisions. Subjective Subjective/Interval History: Mr. Canseco is a 62-year-old male with a medical history significant for EtOH abuse, diabetes mellitus, hypertension, prior CVA and stroke. Patient presented to ED on 01/14/18 after he was found down by family. During presentation, patient sustained 2 separate cardiac events requiring CPR with ROSC after 2 rounds. He was admitted for severe sepsis, respiratory failure required intubation and mechanical ventilation, seizure activity and pneumoperitoneum requiring chest tubes. Patient was extubated on 01/25/18. Clinical course complicated by renal failure requiring renal replacement therapy since 01/17/18. Patient with no renal recovery, renal biopsy 03/07/18 revealing ATN with nephropathy due to rhabdo. Patient now presenting with prolonged hospitalization, profound physical deconditioning, no renal function recovery and persistent symptoms to include anxiety/agitation, episodes of combativeness, pain and pruritus. Palliative care following for further clarifications of goals of care, symptom management. Patient seen in his room. Awake and alert x self, place and situation. Denies any pain, shortness of breath or abdominal discomfort at the time of my visit. Remembers me from yesterday's visit. Patient endorsing feeling much better than yesterday, reports that his appetite is much improved. Patient has been seen by psychiatry, deemed competent for medical decision-making. Patient tells me that he is feeling stronger, he hopes to eventually go home. Reviewed that given his physical deconditioning with ongoing acute on chronic comorbidities, rehabilitation is recommended. Patient tells me that he wants to go home, reviewed that he is likely to require additional hospitalization as he is still requiring hemodialysis. Reviewed that hemodialysis is considered chronic on third month, patient currently on month #2. Patient tells me that he wishes to continue hemodialysis and current medical management, he reports that hemodialysis is acceptable to him even if he is to required it for the rest of his life. Patient reports that his agitation/anxiety is much improved since yesterday. Met with patient's Tressa. Medical update provided. Reviewed that patient is voicing preferences, supportive of continuation of aggressive management short of no cardiac code. receptive to palliative care follow- ups as needed. Case discussed with bedside RN Lalo. Advance Directives Living Will: Never completed Health Care Surrogate: Never completed Durable Power of Crayon Molding Machine Operator: Never completed Objective Vital Signs: Vital Signs 03/13/18 16:00 03/13/18 18:27 03/13/18 20:00 Temperature 97.5 F L 98.4 F Pulse Rate 94 H 69 80 Respiratory Rate 20 18 Blood Pressure 94/59 L 96/69 L Pulse Oximetry 98 96 03/13/18 21:30 03/14/18 00:00 03/14/18 01:47 Temperature 99.0 F Pulse Rate 80 81 Respiratory Rate 18 Blood Pressure 123/70 Pulse Oximetry 96 96 03/14/18 04:00 03/14/18 08:00 Temperature 98.7 F 97.6 F Pulse Rate 76 74 Respiratory Rate 18 20 Blood Pressure 103/63 126/80 Pulse Oximetry 95 96 Intake & Output 03/13/18 03/14/18 03/14/18 18:59 06:59 18:59 Output Total 1999 Balance -1999 Output: Hemodialysis Amount 1999 Other: # Voids 0 Date of Last Bowel Movement 03/13/18 Physical Exam: CONSTITUTIONAL/GENERAL: This is a well nourished male patient, lying in bed, calm. TUBES/LINES/DRAINS: PIV, right Perma-Cath SKIN: Pale. Scattered areas of small scabs on bilateral arms and legs. CARDIOVASCULAR: Regular rate and rhythm without murmurs, gallops, or rubs. No JVD. Peripheral pulses symmetric. RESPIRATORY/CHEST: Symmetric, unlabored respirations. Lungs diminished. On room air. GASTROINTESTINAL: Abdomen soft, non-tender, nondistended. No guarding. Bowel sounds present. GENITOURINARY: Without palpable bladder distension. MUSCULOSKELETAL: Left upper extremity weak, able to move hand and forearm weekly. Right upper extremity with full ROM, generalized weakness, BLE generalized weakness L>R. NEUROLOGICAL: Alert, some answers are appropriate, oriented to place, self and situation. PSYCHIATRIC: Calm, pleasant. Diagnostic Tests Laboratory: Laboratory Results - last 72 hr 03/12/18 03/12/18 03/12/18 06:42 06:42 09:47 WBC 9.5 RBC 3.86 L Hgb 10.9 L Hct 34.2 L MCV 88.5 MCH 28.2 MCHC 31.9 L RDW 15.8 Plt Count 252 MPV 8.2 Sodium 134 L Potassium 4.8 Chloride 96 L Carbon Dioxide 33.1 H Anion Gap 5 BUN 20 H Creatinine 6.75 H Estimated GFR 8 L POC Glucose 104 Random Glucose 83 Calcium 9.3 Phosphorus 3.1 D Magnesium 2.4 Total Bilirubin 0.7 AST 13 L ALT 8 L Alkaline Phosphatase 129 H Total Protein 6.8 Albumin 2.9 L Hepatitis A IgM Ab Hep Bs Antigen Hep B Core IgM Ab Hep C IgG Ab 03/13/18 03/13/18 03/13/18 07:06 07:06 09:19 WBC 8.9 RBC 3.69 L Hgb 10.4 L Hct 32.5 L MCV 88.1 MCH 28.2 MCHC 32.0 RDW 16.0 Plt Count 251 MPV 8.1 Sodium 131 L Potassium 5.1 Chloride 93 L Carbon Dioxide 31.1 Anion Gap 7 BUN 26 H Creatinine 7.95 H Estimated GFR 7 L POC Glucose 88 Random Glucose 85 Calcium 9.6 Phosphorus 3.6 Magnesium 2.4 Total Bilirubin 0.7 AST 26 ALT 9 L Alkaline Phosphatase 124 H Total Protein 6.6 Albumin 2.8 L Hepatitis A IgM Ab Hep Bs Antigen Hep B Core IgM Ab Hep C IgG Ab 03/13/18 03/14/18 03/14/18 14:40 08:03 08:03 WBC 10.3 RBC 3.73 L Hgb 10.6 L Hct 32.5 L MCV 87.1 MCH 28.4 MCHC 32.6 RDW 15.9 Plt Count 258 MPV 7.9 Sodium 131 L Potassium 4.9 Chloride 95 L Carbon Dioxide 28.5 Anion Gap 8 BUN 33 H Creatinine 9.14 H Estimated GFR 6 L POC Glucose Random Glucose 109 H Calcium 9.2 Phosphorus 3.6 Magnesium 2.5 Total Bilirubin 0.5 AST 12 L ALT 8 L Alkaline Phosphatase 144 H Total Protein 6.5 Albumin 2.9 L Hepatitis A IgM Ab Nonreactive Hep Bs Antigen Nonreactive Hep B Core IgM Ab Nonreactive Hep C IgG Ab Nonreactive 03/14/18 08:28 WBC RBC Hgb Hct MCV MCH MCHC RDW Plt Count MPV Sodium Potassium Chloride Carbon Dioxide Anion Gap BUN Creatinine Estimated GFR POC Glucose 130 H Random Glucose Calcium Phosphorus Magnesium Total Bilirubin AST ALT Alkaline Phosphatase Total Protein Albumin Hepatitis A IgM Ab Hep Bs Antigen Hep B Core IgM Ab Hep C IgG Ab Result Diagrams: 03/14/18 08:03 03/14/18 08:03 Procedures: 01/14: Intubation 01/14: Right and left chest tube placement 01/14: Right brachial arterial line placement 01/14: Right subclavian central line placement 01/17: Placement of L IJ hemodialysis catheter. 01/25: Extubated Assessment and Plan - Disease Oriented Problem List (1) End stage renal disease on dialysis (2) Bilateral pneumothoraces (3) Alcohol abuse (4) Rhabdomyolysis (5) NSTEMI (non-ST elevated myocardial infarction) (6) Cirrhosis (7) Diabetes Pertinent Non-Medical Issues: Psychosocial: He lived in many states growing up. 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 He has been once to his current , from who he is now and has no children. Spiritual: Mat Repairer available. Legal: No advance directives completed. Ethical issues impacting care: Patient does not appear capacitated for decision- making. . Important Contacts: : Tressa Canseco [phone] Sister: Lala Canseco . Prognosis: Mr. Canseco is a 62-year-old male with a medical history significant for EtOH abuse, diabetes mellitus, hypertension, prior CVA and stroke. Patient presented to ED on 01/14/18 after he was found down by family. During presentation, patient sustained 2 separate cardiac events requiring CPR with ROSC after 2 rounds. He was admitted for severe sepsis, respiratory failure required intubation and mechanical ventilation, seizure activity and pneumoperitoneum requiring chest tubes. Patient was extubated on 01/25/18. Clinical course complicated by renal failure requiring renal replacement therapy since 01/17/18. Patient with no renal recovery, renal biopsy 03/07/18 revealing ATN with nephropathy due to rhabdo. Patient now presenting with prolonged hospitalization, profound physical deconditioning, no renal function recovery and persistent symptoms to include anxiety/agitation, episodes of combativeness, pain and pruritus. Poor prognosis for improved quality of life support. Patient remains at high risk for further decompensation, continued decline and . Code Status: No Code DNR Plan: * CODE STATUS: DNR/DNI. CODE STATUS readdressed with patient and and . * MEDICAL DECISION-MAKING: Patient participating medical decision making. He was evaluated by psychiatry on 03/14/18, determined competent for medical decision making. Appears with fair insight into his clinical condition. Appears that his mentation wanes and waxes. no advance directives reported as completed. As per [place] statue, healthcare proxy decision making falls to patient's Tressa Canseco. Palliative care recommends shared decision making with given the above. * GOALS OF CARE: Patient supported by his Tressa electing to continue full aggressive medical management short of NO code. Patient tells me that hemodialysis is acceptable to him even if required long-term. Patient receptive to rehabilitation versus long-term facility placement upon discharge. * SYMPTOMS: * Anxiety/agitation/combativeness: Significantly worsening. Patient unable to complete hemodialysis treatment yesterday given agitation/combativeness. Much more calm and relaxed today. Significant history of EtOH abuse, patient status post 2 cardiac arrests with possible anoxic brain damage. On Seroquel 50mg at HS since prior to this acute event. Seroquel has continued at the same dose. Psychiatry has evaluated patient, no changes in psychotropic medications recommended. * Pain: Patient endorsing pain to left flank and nostril??. As per patient's , patient has been complaining of generalized pain since admission. Pain likely secondary to prolonged hospitalization, bedbound state, multiple interventions. No pain reported during my visit today. No further recommendations at this time. * Pruritus: Patient endorsing generalized itchiness, secondary to end-stage renal. Benadryl 25 mg every 6 hours available as needed. No other recommendations. * Weakness: Profound physical deconditioning in the setting of prolonged hospitalization, acute on chronic illnesses, end-stage renal on dialysis, prior CVA. Currently working with PT/OT. PT OT at rehab recommended, however, patient with no payer source at this time for rehab. * Palliative care will continue to follow-up as needed for further clarifications of goals of care as patient's clinical course continues to evolve.. * Palliative care contact information has been provided to patient's . . Time Spent Total Floor Time (mins): 40 (Total time to include review of medical records, physical exam, goals of care conversation with patient and , case discussion with bedside RN.) >50% Time in Counseling or Coordination of Care: Yes (Total visit time = 40 minutes; > 50% spent counseling/coordinating care) Attestation Attestation: To help prompt me to consider important information that might be impacting today's encounter and assessment, information from prior notes written by myself or my colleagues may have been "brought forward" into today's note. My signature on this note, however, is an attestation that I personally performed the exam, history, and/or decision-making noted today, and, unless otherwise indicated, the interactions with patient, family, and staff as well as the review of records all occurred today. I also attest that the listed assessment and stated plan reflect my best clinical judgment today based on the combination of historical information, prior notes, and today's exam/ interactions. When time spent is documented, it refers only to time spent today by the signer, or if indicated, combined time spent today by collaborating physician/nurse practitioner.
--- NOTE | 2018-03-14 15:19 | P.PNNP ---
Subjective Interval history: Seen in AM. Seen during hemodialysis tolerating well. Denies any shortness of breath, nausea, or vomiting. <Smiley Barth - Last Filed: 03/14/18 15:13> Physical Exam Vital signs: Vital Signs 03/13/18 16:00 03/13/18 18:27 03/13/18 20:00 Temperature 97.5 F L 98.4 F Pulse Rate 94 H 69 80 Respiratory Rate 20 18 Blood Pressure 94/59 L 96/69 L Pulse Oximetry 98 96 03/13/18 21:30 03/14/18 00:00 03/14/18 01:47 Temperature 99.0 F Pulse Rate 80 81 Respiratory Rate 18 Blood Pressure 123/70 Pulse Oximetry 96 96 03/14/18 04:00 03/14/18 08:00 Temperature 98.7 F 97.6 F Pulse Rate 76 74 Respiratory Rate 18 20 Blood Pressure 103/63 126/80 Pulse Oximetry 95 96 Intake & Output 03/13/18 03/14/18 03/14/18 18:59 06:59 18:59 Output Total 1999 Balance -1999 Output: Hemodialysis Amount 1999 Other: # Voids 0 Date of Last Bowel Movement 03/13/18 Narrative: GENERAL: Well-nourished, well-developed adult male in no obvious distress. SKIN: Warm and dry. Dialysis catheter in right chest wall -no erythema or drainage. HEAD: Atraumatic. Normocephalic. CARDIOVASCULAR: Regular rate and rhythm. RESPIRATORY: No accessory muscle use. Clear to auscultation. Breath sounds equal bilaterally. GASTROINTESTINAL: Abdomen soft, non-tender, non-distended. Positive bowel sounds. MUSCULOSKELETAL: Extremities without clubbing, cyanosis, or edema. No obvious deformities. NEUROLOGICAL: Awake and alert. No obvious cranial nerve deficits. Motor grossly within normal limits. Normal speech. - Urinary Catheter Management Indwelling Temp Sensing Catheter Cath placed during this visit: yes, but has since been removed by the nurse Reason for continuing: Decision to DC catheter Insertion date: 01/14/18 Insertion time: 22:00 Removal date: 01/21/18 Removal time: 18:00 Straight Cath placed during this visit: yes, but has since been removed by the nurse Reason for continuing: Not indwelling catheter Insertion date: 03/07/18 Insertion time: 07:01 Removal date: 12/28/18 Removal time: 23:30 <Smiley Barth - Last Filed: 03/14/18 15:13> Vital signs: Vital Signs 03/13/18 21:30 03/14/18 00:00 03/14/18 01:47 Temperature 99.0 F Pulse Rate 80 81 Respiratory Rate 18 Blood Pressure 123/70 Pulse Oximetry 96 96 03/14/18 04:00 03/14/18 08:00 03/14/18 16:00 Temperature 98.7 F 97.6 F 98.3 F Pulse Rate 76 74 80 Respiratory Rate 18 20 20 Blood Pressure 103/63 126/80 129/67 Pulse Oximetry 95 96 95 Intake & Output 03/14/18 03/14/18 03/15/18 06:59 18:59 06:59 Intake Total 1999 Output Total 2149 Balance -150 / -150 Intake: Oral 1999 Output: Urine 150 / 150 Hemodialysis Amount 1999 Other: # Voids 0 Date of Last Bowel Movement 03/13/18 03/14/18 - Urinary Catheter Management Indwelling Temp Sensing Catheter Cath placed during this visit: no Straight Cath placed during this visit: no <Brianna Blevins - Last Filed: 03/14/18 20:34> Assessment and Plan - Assessment (1) Acute renal failure Code(s): N17.9 - Acute kidney failure, unspecified Status: Acute Plan: Remains dialysis dependent at this time. 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 Medications should be adjusted for the patient's estimated GFR if clinically indicated. Avoid agents with significant potential for nephrotoxicity possible including NSAIDs for analgesia, iodine contrast agents. Gadolinium is contraindicated if the GFR is below 30. Monitor UOP and electrolytes for renal recovery. Continue calcium acetate for hyperphosphatemia. Seen during Hemodialysis, 2 K bath, will remove fluid as tolerated. Thus far no renal recovery noted. Palliative care meeting, wants to continue with hemodialysis. (2) Anemia Code(s): D64.9 - Anemia, unspecified Status: Acute Qualifiers: Anemia type: due to chronic kidney disease Plan: Epogen with dialysis. HGB stable (3) Hypertension Code(s): I10 - Essential (primary) hypertension Status: Acute Plan: Well controlled, will monitor. (4) Diabetes Code(s): E11.9 - Type 2 diabetes mellitus without complications Status: Acute Plan: Maintain blood sugars between 140 mg /dl to 180 mg/dl while hospitalized. Well controlled. <Smiley Barth - Last Filed: 03/14/18 15:13> - Assessment (1) Acute renal failure Code(s): N17.9 - Acute kidney failure, unspecified Status: Acute Plan: Patient seen during HD and examined, agree with above. Watch for renal recovery. HD today, and remove fluid as tolerated. (2) Anemia Code(s): D64.9 - Anemia, unspecified Status: Acute Qualifiers: Anemia type: due to chronic kidney disease (3) Hypertension Code(s): I10 - Essential (primary) hypertension Status: Acute (4) Diabetes Code(s): E11.9 - Type 2 diabetes mellitus without complications Status: Acute <Brianna Blevins - Last Filed: 03/14/18 20:34>
--- NOTE | 2018-03-14 17:43 | P.PNIM ---
Subjective Interval history: Patient seen in room post dialysis. Sleepy, does not really answer questions other than simple yes or no. No new complaints. Physical Exam Vital signs: Vital Signs 03/13/18 18:27 03/13/18 20:00 03/13/18 21:30 Temperature 98.4 F Pulse Rate 69 80 Respiratory Rate 18 Blood Pressure 96/69 L Pulse Oximetry 96 96 03/14/18 00:00 03/14/18 01:47 03/14/18 04:00 Temperature 99.0 F 98.7 F Pulse Rate 80 81 76 Respiratory Rate 18 18 Blood Pressure 123/70 103/63 Pulse Oximetry 96 95 03/14/18 08:00 03/14/18 16:00 Temperature 97.6 F 98.3 F Pulse Rate 74 80 Respiratory Rate 20 20 Blood Pressure 126/80 129/67 Pulse Oximetry 96 95 Intake & Output 03/13/18 03/14/18 03/14/18 18:59 06:59 18:59 Output Total 1999 Balance -1999 Output: Hemodialysis Amount 1999 Other: # Voids 0 Date of Last Bowel Movement 03/13/18 Narrative: GENERAL: Well-nourished, well-developed adult male in no obvious distress. SKIN: Warm and dry. Dialysis catheter in right chest wall -no erythema or drainage. HEAD: Atraumatic. Normocephalic. CARDIOVASCULAR: Regular rate and rhythm. RESPIRATORY: No accessory muscle use. Clear to auscultation. Breath sounds equal bilaterally. GASTROINTESTINAL: Abdomen soft, non-tender, non-distended. Positive bowel sounds. MUSCULOSKELETAL: Extremities without clubbing, cyanosis, or edema. No obvious deformities. NEUROLOGICAL: Awake and alert. No obvious cranial nerve deficits. Motor grossly within normal limits. Normal speech. Urinary Catheter Management Indwelling Temp Sensing Catheter: Cath placed during this visit: yes, but has since been removed by the nurse Reason for continuing: Decision to DC catheter Insertion date: 01/14/18 Insertion time: 22:00 Removal date: 01/21/18 Removal time: 18:00 Straight: Cath placed during this visit: yes, but has since been removed by the nurse Reason for continuing: Not indwelling catheter Insertion date: 03/07/18 Insertion time: 07:01 Removal date: 03/01/18 Removal time: 23:30 Results Labs CBC & Chem 7: 03/14/18 08:03 03/14/18 08:03 Procedures Procedures: Left IJ HD tunneled cath placed 02/08/18 by IR Assessment and Plan Plan 62-year-old white male who was admitted with cardiogenic shock and acute respiratory failure requiring CPR and epinephrine in the field, after being found down at home and being witnessed to possibly have undergone seizure-like activity. Intubation was attempted in the field but were unable to do so, patient was ultimately intubated in the hospital, started on pressors, placed in the ICU on mechanical ventilation. Found to have bilateral pneumothoraces with chest tubes placed, had developed some pneumoperitoneum which surgically deemed might have been a leak from his chest tubes as opposed to an acute surgical abdomen. Patient was started on antibiotics empirically for possible aspiration pneumonia but was ultimately discontinued off of them by infectious disease. Developed rhabdomyolysis with worsening acute renal failure which became sustained, with the patient now undergoing dialysis. Ultimately was discontinued off pressors, cardiology deferred heart cath due to renal failure. Patient had difficulty following commands after he was discontinued off of sedation and after extubation. Had an MRI done on 01/17 which showed no acute findings, only an older right parietal CVA. EEG was done which was unremarkable. ESRD on HD -dialysis M, W, Fr. 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 Abdominal pain returned; now resolved -CT abdomen and pelvis ordered -suspected partial left ureteral obstruction likely from biopsy. Intervention not indicated nephrology. 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 Possible anoxic brain injury -Neurology consulted and following -PT/OT/ST -ok to get out of bed per Neurology with assistance Dysphagia related to encephalopathy -ST rec mechanical soft, thin liquid diet Possible seizure -continue Keppra -EEG was negative NSTEMI -troponins 0.52, 1.89 & 2.37 respectively -cardiology consulted, rec conservative medical management -continue ASA, Coreg, Isosorbide, amlodipine and atorvastatin Bilateral pneumothoraces - stable -chest tube removed 01/28/18 Pneumomediastinum Pneumoperitoneum with right retroperitoneal gas around the right kidney -Likely secondary to bilateral pneumothoraces with no surgical intervention warranted per general surgery Acute respiratory failure -continue supplemental O2 PRN -pulmonary following Cirrhosis -likely secondary to alcohol abuse -continue BB Type II diabetes mellitus, uncontrolled ? -Not needing sliding scale coverage; frequently refusing 5 units Levemir at night -We will stop insulin for now; monitor daily blood glucose for need to restart Hypothyroidism -continue Synthroid Normocytic anemia - stable -s/p PRBC transfusion -epogen with dialysis MDM: self Code: DNR GI ppx: Protonix PO DVT ppx: Heparin SQ Discussed with: RN, patient, CM Dispo: awaiting placement once cleared by nephrology. Palliative care also following. Progress Note: Quality VTE Deep Vein Thrombosis/Pulmonary Embolism Present on Admission: No
[2018-03-14] MEDS: QUEtiapine 25 MG Tablet PO SCH (21:07)
[2018-03-15] MEDS: Oral Hygiene Kit OROPHARYNG SCH ×4 (01:03→15:22)
[2018-03-15] MEDS: Levothyroxine 88 MCG Tablet PO SCH (06:31)
[2018-03-15 08:44] LABS: Hematocrit 33.8 % (39.0-51.0); Hemoglobin 10.8 gm/dL (13.0-17.0); Mean Corpuscular HGB Conc 32.1 % (32.0-36.0); Mean Corpuscular Hemoglobin 28.2 pg (27.0-34.0); Mean Corpuscular Volume 87.9 fL (80.0-100.0); Platelet Count 267 th/mm3 (150-450); Red Blood Count 3.85 mil/mm3 (4.50-5.90); Red Cell Distribution Width 16.4 % (11.6-17.2); White Blood Count 7.8 th/mm3 (4.0-11.0)
[2018-03-15 09:22] LABS: Alanine Aminotransferase 8 U/L (12-78); Alkaline Phosphatase 138 U/L (45-117); Anion Gap 9 meq/L (5-15); Aspartate Aminotransferase 12 U/L (15-37); Blood Urea Nitrogen 18 mg/dL (7-18); Calcium 9.3 mg/dL (8.5-10.1); Carbon Dioxide 30.9 meq/L (21.0-32.0); Chloride 96 meq/L (98-107); Glomerular Filtration Rate 9 mL/min (>89); Glucose,Random 85 mg/dL (74-106); Magnesium 2.5 mg/dL (1.5-2.5); Phosphorus 2.9 mg/dL (2.5-4.9); Potassium 4.6 meq/L (3.5-5.1); Sodium 136 meq/L (136-145); Total Protein 6.6 g/dL (6.4-8.2)
--- NOTE | 2018-03-15 09:28 | P.PN ---
Subjective Interval history: Follow-up for ESRD on HD. Patient is awoken from his sleep upon arrival. He denies any specific medical complaints including no fever/chills, shortness of breath, or abdominal complaints. He is tolerating oral intake. Vital signs reviewed and stable. Awaiting placement and clearance from nephrology. Physical Exam Vital signs: Vital Signs 03/14/18 16:00 03/14/18 20:00 03/14/18 21:38 Temperature 98.3 F 98.9 F Pulse Rate 80 78 Respiratory Rate 20 18 Blood Pressure 129/67 100/62 Pulse Oximetry 95 95 95 03/15/18 00:00 03/15/18 04:00 03/15/18 08:16 Temperature 98.8 F 99.0 F 97.7 F Pulse Rate 73 69 71 Respiratory Rate 18 18 18 Blood Pressure 114/69 114/65 123/78 Pulse Oximetry 95 94 L 93 L Intake & Output 03/14/18 03/15/18 03/15/18 18:59 06:59 18:59 Intake Total 1999 Output Total 2149 / 2149 Balance -150 / -150 Intake: Oral 1999 Output: Urine 150 / 150 Hemodialysis Amount 1999 Other: # Incontinent Voids 1 Date of Last Bowel Movement 03/14/18 03/14/18 Narrative: GENERAL: Well-nourished, well-developed middle-aged male patient in [facility]. SKIN: Warm and dry. No rash. Right anterior chest with dialysis catheter, no surrounding erythema. HEENT: Normocephalic. Atraumatic. Pupils equal and round. Mucous membranes pink and moist. NECK: Supple. Trachea midline. CARDIOVASCULAR: Regular rate and rhythm. RESPIRATORY: No accessory muscle use. Clear to auscultation. Breath sounds equal bilaterally. GASTROINTESTINAL: Abdomen soft, non-tender, nondistended. Normoactive bowel sounds x4. MUSCULOSKELETAL: No obvious deformities. Extremities without clubbing, cyanosis , or edema. NEUROLOGICAL: Awake and alert. No obvious cranial nerve deficits. Moving all extremities spontaneously. Normal speech. - Urinary Catheter Management Indwelling Temp Sensing Catheter Cath placed during this visit: yes, but has since been removed by the nurse Reason for continuing: Decision to DC catheter Insertion date: 01/14/18 Insertion time: 22:00 Removal date: 01/21/18 Removal time: 18:00 Straight Cath placed during this visit: yes, but has since been removed by the nurse Reason for continuing: Not indwelling catheter Insertion date: 03/07/18 Insertion time: 07:01 Removal date: 03/01/18 Removal time: 23:30 Results - Labs CBC & Chem 7: 03/15/18 06:06 03/15/18 06:06 Laboratory Results - last 24 hr 03/15/18 03/15/18 06:06 06:06 WBC 7.8 RBC 3.85 L Hgb 10.8 L Hct 33.8 L MCV 87.9 MCH 28.2 MCHC 32.1 RDW 16.4 Plt Count 267 MPV 8.0 Sodium 136 Potassium 4.6 Chloride 96 L Carbon Dioxide 30.9 Anion Gap 9 BUN 18 Creatinine 6.36 H Estimated GFR 9 L Random Glucose 85 Calcium 9.3 Phosphorus 2.9 Magnesium 2.5 Total Bilirubin 0.5 AST 12 L ALT 8 L Alkaline Phosphatase 138 H Total Protein 6.6 Albumin 3.0 L - Procedures Left IJ HD tunneled cath placed 02/08/18 by IR Assessment and Plan - Assessment (1) Gross hematuria Code(s): R31.0 - Gross hematuria Status: Acute Onset Date: ~03/10/18 - Plan 62-year-old white male who was admitted with cardiogenic shock and acute respiratory failure requiring CPR and epinephrine in the field, after being found down at home and being witnessed to possibly have undergone seizure-like activity. Intubation was attempted in the field but were unable to do so, patient was ultimately intubated in the hospital, started on pressors, placed in the ICU on mechanical ventilation. Found to have bilateral pneumothoraces with chest tubes placed, had developed some pneumoperitoneum which surgically deemed might have been a leak from his chest tubes as opposed to an acute surgical abdomen. Patient was started on antibiotics empirically for possible aspiration pneumonia but was ultimately discontinued off of them by infectious disease. Developed rhabdomyolysis with worsening acute renal failure which became sustained, with the patient now undergoing dialysis. Ultimately was discontinued off pressors, cardiology deferred heart cath due to renal failure. Patient had difficulty following commands after he was discontinued off of sedation and after extubation. Had an MRI done on 01/17 which showed no acute findings, only an older right parietal CVA. EEG was done which was unremarkable. End-stage renal disease -Continue MWF hemodialysis. -Nephrology following. Patient will likely need permanent dialysis. 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 Acute pain -pain meds PRN; wean IV morphine and transition to orals. 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 Possible anoxic brain injury -Neurology consulted and following -PT/OT/ST -ok to get out of bed per Neurology with assistance Dysphagia related to encephalopathy -ST rec mechanical soft, thin liquid diet Possible seizure -continue Keppra -EEG was negative NSTEMI -troponins 0.52, 1.89, 2.37 -cardiology consulted, recommended conservative medical management -continue ASA, Coreg, Isosorbide, amlodipine and atorvastatin Bilateral pneumothoraces - stable -chest tube removed 01/28/18 Pneumomediastinum Pneumoperitoneum with right retroperitoneal gas around the right kidney -Likely secondary to bilateral pneumothoraces with no surgical intervention warranted per general surgery Acute respiratory failure -continue supplemental O2 PRN -pulmonary following -O2 sat currently stable on room air Cirrhosis -likely secondary to alcohol abuse -continue BB Type II diabetes mellitus, uncontrolled ? -Not needing sliding scale coverage; frequently refusing 5 units Levemir at night -We will stop insulin for now; monitor daily blood glucose for need to restart Hypothyroidism -continue Synthroid Normocytic anemia - stable -s/p PRBC transfusion -epogen with dialysis MDM: self Code: DNR GI ppx: Protonix PO DVT ppx: Heparin SQ Discussed with: RN, patient, CM Dispo: awaiting placement once cleared by nephrology. Palliative care also following. Appreciate specialists assistance. Discharge Planning: Patient has remained dialysis dependent. Case management is aware of the possible need for dialysis. No payor source. Will need placement.
[2018-03-15] MEDS: levETIRAcetam 500 MG Tablet PO SCH ×2 (09:43→21:01)
[2018-03-15] MEDS: amLODIPine 5 MG Tablet PO SCH (09:43)
[2018-03-15] MEDS: Calcium Acetate 667 MG Capsule PO SCH ×3 (09:43→17:24)
[2018-03-15] MEDS: Carvedilol 6.25 MG Tablet PO SCH ×2 (09:43→21:01)
[2018-03-15] MEDS: Folic Acid 1 MG Tablet PO SCH (09:43)
[2018-03-15] MEDS: Senna/Docusate Sodium 8.6/50 MG Tablet PO SCH ×2 (09:44→21:01)
--- NOTE | 2018-03-15 12:12 | P.PNNP ---
Subjective Interval history: Resting. Denies any shortness of breath, nausea, or vomiting. Continues to have some mild left sided pain. <LarySmiley - Last Filed: 03/15/18 12:05> Physical Exam Vital signs: Vital Signs 03/14/18 16:00 03/14/18 20:00 03/14/18 21:38 Temperature 98.3 F 98.9 F Pulse Rate 80 78 Respiratory Rate 20 18 Blood Pressure 129/67 100/62 Pulse Oximetry 95 95 95 03/15/18 00:00 03/15/18 04:00 03/15/18 08:16 Temperature 98.8 F 99.0 F 97.7 F Pulse Rate 73 69 71 Respiratory Rate 18 18 18 Blood Pressure 114/69 114/65 123/78 Pulse Oximetry 95 94 L 93 L Intake & Output 03/14/18 03/15/18 03/15/18 18:59 06:59 18:59 Intake Total 1999 Output Total 0 / 215 Balance -150 / -150 Intake: Oral 1999 Output: Urine 150 / 150 Hemodialysis Amount 1999 Other: # Incontinent Voids 1 Date of Last Bowel Movement 03/14/18 03/14/18 03/14/18 Narrative: GENERAL: Well-nourished, well-developed adult male in no obvious distress. SKIN: Warm and dry. Dialysis catheter in right chest wall -no erythema or drainage. HEAD: Atraumatic. Normocephalic. CARDIOVASCULAR: Regular rate and rhythm. RESPIRATORY: No accessory muscle use. Clear to auscultation. Breath sounds equal bilaterally. GASTROINTESTINAL: Abdomen soft, non-tender, non-distended. Positive bowel sounds. MUSCULOSKELETAL: Extremities without clubbing, cyanosis, or edema. No obvious deformities. NEUROLOGICAL: Awake and alert. No obvious cranial nerve deficits. Motor grossly within normal limits. Normal speech. - Urinary Catheter Management Indwelling Temp Sensing Catheter Cath placed during this visit: yes, but has since been removed by the nurse Reason for continuing: Decision to DC catheter Insertion date: 01/14/18 Insertion time: 22:00 Removal date: 01/21/18 Removal time: 18:00 Straight Cath placed during this visit: yes, but has since been removed by the nurse Reason for continuing: Not indwelling catheter Insertion date: 03/07/18 Insertion time: 07:01 Removal date: 03/01/18 Removal time: 23:30 <Smiley Barth - Last Filed: 03/15/18 12:05> Vital signs: Vital Signs 03/18/18 00:30 03/18/18 05:43 03/18/18 08:00 Temperature 97.8 F 97.6 F 97.5 F L Pulse Rate 71 70 67 Respiratory Rate 18 18 20 Blood Pressure 96/67 L 92/66 L 92/61 L Pulse Oximetry 97 98 95 03/18/18 12:00 03/18/18 12:09 03/18/18 16:00 Temperature 97.6 F 97.6 F 97.6 F Pulse Rate 65 65 68 Respiratory Rate 20 20 20 Blood Pressure 100/64 100/64 102/68 Pulse Oximetry 99 99 98 03/18/18 20:42 Temperature 97.6 F Pulse Rate 71 Respiratory Rate 18 Blood Pressure 122/74 Pulse Oximetry 98 Intake & Output 03/18/18 03/18/18 03/19/18 06:59 18:59 06:59 Intake Total 100 / 100 Output Total 200 / 200 Balance -200 / -200 100 / 100 Intake: IV 100 / 100 Doxy 100 Inj 100 MG In NS Inj 100 / 100 100 ML @ 100 mls/hr IV.SIG Q12H [facility] Rx#:[id number] Output: Urine 200 / 200 Other: Date of Last Bowel Movement 03/14/18 - Urinary Catheter Management Indwelling Temp Sensing Catheter Cath placed during this visit: no Straight Cath placed during this visit: no <Brianna Blevins - Last Filed: 03/18/18 21:31> Assessment and Plan - Assessment (1) Acute renal failure Code(s): N17.9 - Acute kidney failure, unspecified Status: Acute Plan: Remains dialysis dependent at this time. 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 Medications should be adjusted for the patient's estimated GFR if clinically indicated. Avoid agents with significant potential for nephrotoxicity possible including NSAIDs for analgesia, iodine contrast agents. Gadolinium is contraindicated if the GFR is below 30. Monitor UOP and electrolytes for renal recovery. Continue calcium acetate for hyperphosphatemia. Hemodialysis yesterday, tolerated well with removal of 2 liters of fluid HD tomorrow. (2) Anemia Code(s): D64.9 - Anemia, unspecified Status: Acute Qualifiers: Anemia type: due to chronic kidney disease Plan: Epogen with dialysis. HGB stable (3) Hypertension Code(s): I10 - Essential (primary) hypertension Status: Acute Plan: Well controlled, will monitor. (4) Diabetes Code(s): E11.9 - Type 2 diabetes mellitus without complications Status: Acute Plan: Maintain blood sugars between 140 mg /dl to 180 mg/dl while hospitalized. Well controlled. <Smiley Barth - Last Filed: 03/15/18 12:05> - Assessment (1) Acute renal failure Code(s): N17.9 - Acute kidney failure, unspecified Status: Acute Plan: Patient seen and examined, agree with above. Watch for renal recovery, HD as needed. (2) Anemia Code(s): D64.9 - Anemia, unspecified Status: Acute Qualifiers: Anemia type: due to chronic kidney disease (3) Hypertension Code(s): I10 - Essential (primary) hypertension Status: Acute (4) Diabetes Code(s): E11.9 - Type 2 diabetes mellitus without complications Status: Acute <Brianna Blevins - Last Filed: 03/18/18 21:31>
--- NOTE | 2018-03-15 13:57 | P.PNPAL ---
Reason for Visit Reason for visit: a. To assist with evaluation and management of symptoms including: Pain, anxiety/agitation. b. To assist medical decision maker(s) with: better understanding of current medical conditions; weighing benefits/burdens of medical treatment options; making medical treatment decisions. Subjective Subjective/Interval History: Mr. Canseco is a 62-year-old male with a medical history significant for EtOH abuse, diabetes mellitus, hypertension, prior CVA and stroke. Patient presented to ED on 01/14/18 after he was found down by family. During presentation, patient sustained 2 separate cardiac events requiring CPR with ROSC after 2 rounds. He was admitted for severe sepsis, respiratory failure required intubation and mechanical ventilation, seizure activity and pneumoperitoneum requiring chest tubes. Patient was extubated on 01/25/18. Clinical course complicated by renal failure requiring renal replacement therapy since 01/17/18. Patient with no renal recovery, renal biopsy 03/07/18 revealing ATN with nephropathy due to rhabdo. Patient now presenting with prolonged hospitalization, profound physical deconditioning, no renal function recovery and persistent symptoms to include anxiety/agitation, episodes of combativeness, pain and pruritus. Palliative care following for further clarifications of goals of care, symptom management. Received phone call from patient's Tressa requesting to review psychiatry recommendations. Reviewed that patient was determined to be competent for medical decision making. No recommendations on psychotropic medication changes, patient to continue on Seroquel 50 mg p.o. at at bedtime. Reviewed patient's goals of treatment, continue current management short of no code. Patient receptive to continuation of hemodialysis even if long-term. Patient seen in his room. Awake and alert x self, place and situation. Endorsing mild pain to left flank. Denies shortness of breath, n/v or any other discomfort at the time of my visit. Patient restating above-mentioned goals. Receptive to palliative care follow-ups as needed. Advance Directives Living Will: Never completed Health Care Surrogate: Never completed Durable Power of Developer Advisor: Never completed Objective Vital Signs: Vital Signs 03/14/18 16:00 03/14/18 20:00 03/14/18 21:38 Temperature 98.3 F 98.9 F Pulse Rate 80 78 Respiratory Rate 20 18 Blood Pressure 129/67 100/62 Pulse Oximetry 95 95 95 03/15/18 00:00 03/15/18 04:00 03/15/18 08:16 Temperature 98.8 F 99.0 F 97.7 F Pulse Rate 73 69 71 Respiratory Rate 18 18 18 Blood Pressure 114/69 114/65 123/78 Pulse Oximetry 95 94 L 93 L 03/15/18 11:51 Temperature 97.7 F Pulse Rate 75 Respiratory Rate 18 Blood Pressure 110/70 Pulse Oximetry 95 Intake & Output 03/14/18 03/15/18 03/15/18 18:59 06:59 18:59 Intake Total 1999 Output Total 2149 Balance -150 / -150 Intake: Oral 1999 Output: Urine 150 / 150 Hemodialysis Amount 1999 Other: # Incontinent Voids 1 Date of Last Bowel Movement 03/14/18 03/14/18 03/14/18 Physical Exam: CONSTITUTIONAL/GENERAL: This is a well nourished male patient, lying in bed, calm. TUBES/LINES/DRAINS: PIV, right Perma-Cath SKIN: Pale. Scattered areas of small scabs on bilateral arms and legs. CARDIOVASCULAR: Regular rate and rhythm without murmurs, gallops, or rubs. No JVD. Peripheral pulses symmetric. RESPIRATORY/CHEST: Symmetric, unlabored respirations. Lungs diminished. On room air. GASTROINTESTINAL: Abdomen soft, non-tender, nondistended. No guarding. Bowel sounds present. GENITOURINARY: Without palpable bladder distension. MUSCULOSKELETAL: Left upper extremity weak, able to move hand and forearm weekly. Right upper extremity with full ROM, generalized weakness, BLE generalized weakness L>R. NEUROLOGICAL: Alert, some answers are appropriate, oriented to place, self and situation. PSYCHIATRIC: Calm, pleasant. Diagnostic Tests Laboratory: Laboratory Results - last 72 hr 03/13/18 03/13/18 03/13/18 07:06 07:06 09:19 WBC 8.9 RBC 3.69 L Hgb 10.4 L Hct 32.5 L MCV 88.1 MCH 28.2 MCHC 32.0 RDW 16.0 Plt Count 251 MPV 8.1 Sodium 131 L Potassium 5.1 Chloride 93 L Carbon Dioxide 31.1 Anion Gap 7 BUN 26 H Creatinine 7.95 H Estimated GFR 7 L POC Glucose 88 Random Glucose 85 Calcium 9.6 Phosphorus 3.6 Magnesium 2.4 Total Bilirubin 0.7 AST 26 ALT 9 L Alkaline Phosphatase 124 H Total Protein 6.6 Albumin 2.8 L Hepatitis A IgM Ab Hep Bs Antigen Hep B Core IgM Ab Hep C IgG Ab 03/13/18 03/14/18 03/14/18 14:40 08:03 08:03 WBC 10.3 RBC 3.73 L Hgb 10.6 L Hct 32.5 L MCV 87.1 MCH 28.4 MCHC 32.6 RDW 15.9 Plt Count 258 MPV 7.9 Sodium 131 L Potassium 4.9 Chloride 95 L Carbon Dioxide 28.5 Anion Gap 8 BUN 33 H Creatinine 9.14 H Estimated GFR 6 L POC Glucose Random Glucose 109 H Calcium 9.2 Phosphorus 3.6 Magnesium 2.5 Total Bilirubin 0.5 AST 12 L ALT 8 L Alkaline Phosphatase 144 H Total Protein 6.5 Albumin 2.9 L Hepatitis A IgM Ab Nonreactive Hep Bs Antigen Nonreactive Hep B Core IgM Ab Nonreactive Hep C IgG Ab Nonreactive 03/14/18 03/15/18 03/15/18 08:28 06:06 06:06 WBC 7.8 RBC 3.85 L Hgb 10.8 L Hct 33.8 L MCV 87.9 MCH 28.2 MCHC 32.1 RDW 16.4 Plt Count 267 MPV 8.0 Sodium 136 Potassium 4.6 Chloride 96 L Carbon Dioxide 30.9 Anion Gap 9 BUN 18 Creatinine 6.36 H Estimated GFR 9 L POC Glucose 130 H Random Glucose 85 Calcium 9.3 Phosphorus 2.9 Magnesium 2.5 Total Bilirubin 0.5 AST 12 L ALT 8 L Alkaline Phosphatase 138 H Total Protein 6.6 Albumin 3.0 L Hepatitis A IgM Ab Hep Bs Antigen Hep B Core IgM Ab Hep C IgG Ab 03/15/18 11:59 WBC RBC Hgb Hct MCV MCH MCHC RDW Plt Count MPV Sodium Potassium Chloride Carbon Dioxide Anion Gap BUN Creatinine Estimated GFR POC Glucose 104 Random Glucose Calcium Phosphorus Magnesium Total Bilirubin AST ALT Alkaline Phosphatase Total Protein Albumin Hepatitis A IgM Ab Hep Bs Antigen Hep B Core IgM Ab Hep C IgG Ab Result Diagrams: 03/15/18 06:06 03/15/18 06:06 Procedures: 01/14: Intubation 01/14: Right and left chest tube placement 01/14: Right brachial arterial line placement 01/14: Right subclavian central line placement 01/17: Placement of L IJ hemodialysis catheter. 01/25: Extubated Assessment and Plan - Disease Oriented Problem List (1) End stage renal disease on dialysis (2) Bilateral pneumothoraces (3) Alcohol abuse (4) Rhabdomyolysis (5) NSTEMI (non-ST elevated myocardial infarction) (6) Cirrhosis (7) Diabetes - Symptom Scale (1) Weakness 0-10 Scale: Unable to quantify (2) Pain 0-10 Scale: 3 (3) Anxiety 0-10 Scale: 0 Pertinent Non-Medical Issues: Psychosocial: He lived in many states growing up. 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 He has been once to his current , from who he is now and has no children. 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 Legal: No advance directives completed. Ethical issues impacting care: Patient does not appear capacitated for decision- making. . Important Contacts: : Tressa Canseco [phone] Sister: Lala Canseco . Prognosis: Mr. Canseco is a 62-year-old male with a medical history significant for EtOH abuse, diabetes mellitus, hypertension, prior CVA and stroke. Patient presented to ED on 01/14/18 after he was found down by family. During presentation, patient sustained 2 separate cardiac events requiring CPR with ROSC after 2 rounds. He was admitted for severe sepsis, respiratory failure required intubation and mechanical ventilation, seizure activity and pneumoperitoneum requiring chest tubes. Patient was extubated on 01/25/18. Clinical course complicated by renal failure requiring renal replacement therapy since 01/17/18. Patient with no renal recovery, renal biopsy 03/07/18 revealing ATN with nephropathy due to rhabdo. Patient now presenting with prolonged hospitalization, profound physical deconditioning, no renal function recovery and persistent symptoms to include anxiety/agitation, episodes of combativeness, pain and pruritus. Poor prognosis for improved quality of life support. Patient remains at high risk for further decompensation, continued decline and . Code Status: No Code DNR Plan: * CODE STATUS: DNR/DNI. CODE STATUS readdressed with patient and and . * MEDICAL DECISION-MAKING: Patient participating medical decision making. He was evaluated by psychiatry on 03/14/18, determined competent for medical decision making. Appears with fair insight into his clinical condition. Appears that his mentation wanes and waxes. no advance directives reported as completed. As per [place], healthcare proxy decision making falls to patient's Tressa Canseco. Palliative care recommends shared decision making with given the above. * GOALS OF CARE: Patient supported by his Tressa electing to continue full aggressive medical management short of NO code. Patient tells me that hemodialysis is acceptable to him even if required long-term. Patient receptive to rehabilitation versus long-term facility placement upon discharge. * SYMPTOMS: * Anxiety/agitation/combativeness: Appears controlled during the last 2 days. Significant history of EtOH abuse, patient status post 2 cardiac arrests with possible anoxic brain damage. On Seroquel 50mg at HS since prior to this acute event. Psychiatry has evaluated patient, no changes in psychotropic regimen recommended. * Pain: Patient endorsing pain to left flank. Pain likely secondary to recent renal biopsy, prolonged hospitalization, bedbound state, multiple interventions. Mild pain reported during my visit today. Percocet 5-10 mg available as needed, none given in the past 24 hours. Patient was encouraged to report pain to bedside RN. * Pruritus: Patient endorsing intermittent generalized itchiness, secondary to end-stage renal. Benadryl 25 mg every 6 hours available as needed. No other recommendations. * Weakness: Profound physical deconditioning in the setting of prolonged hospitalization, acute on chronic illnesses, end-stage renal on dialysis, prior CVA. Currently working with PT/OT. PT OT at rehab recommended, however, patient with no payer source at this time for rehab. * Palliative care will continue to follow-up as needed for further clarifications of goals of care as patient's clinical course continues to evolve.. * Palliative care contact information has been provided to patient's . . Time Spent Total Floor Time (mins): 27 (Total time to include review of medical records, physical exam, goals of care conversation with patient and .) >50% Time in Counseling or Coordination of Care: Yes (TotaTotal visit time = 27 minutes; > 50% spent counseling/coordinating care) Attestation Attestation: To help prompt me to consider important information that might be impacting today's encounter and assessment, information from prior notes written by myself or my colleagues may have been "brought forward" into today's note. My signature on this note, however, is an attestation that I personally performed the exam, history, and/or decision-making noted today, and, unless otherwise indicated, the interactions with patient, family, and staff as well as the review of records all occurred today. I also attest that the listed assessment and stated plan reflect my best clinical judgment today based on the combination of historical information, prior notes, and today's exam/ interactions. When time spent is documented, it refers only to time spent today by the signer, or if indicated, combined time spent today by collaborating physician/nurse practitioner.
[2018-03-15] MEDS: QUEtiapine 25 MG Tablet PO SCH (21:01)
[2018-03-15] MEDS: oxyCODONE/Acetaminophen 10/325 Tablet PO PRN (21:01)
[2018-03-16 02:41] LABS: Bacteria,Urine Rare /hpf; Bilirubin,Urine Negative (Negative); Clarity,Urine Cloudy (Clear); Color,Urine Amber (Yellw/Straw); Glucose,Urine (UA) Negative (Negative); Leukocyte Esterase,Urine Large (Negative); Nitrite,Urine Negative (Negative); Renal Epithelial Cells,Urine 5 /hpf; Specific Gravity,Urine 1.009 (1.002-1.035)
[2018-03-16] MEDS: Oral Hygiene Kit OROPHARYNG SCH ×4 (03:00→15:33)
[2018-03-16] MEDS: Levothyroxine 88 MCG Tablet PO SCH (06:38)
--- NOTE | 2018-03-16 10:41 | P.PNNP ---
Physical Exam Vital signs: Vital Signs 03/15/18 11:51 03/15/18 16:39 03/15/18 20:00 Temperature 97.7 F 97.2 F L 98.8 F Pulse Rate 75 62 76 Respiratory Rate 18 16 18 Blood Pressure 110/70 124/71 134/81 Pulse Oximetry 95 94 L 95 03/16/18 00:00 03/16/18 04:00 03/16/18 07:26 Temperature 99.3 F 98.6 F Pulse Rate 70 77 Respiratory Rate 18 18 16 Blood Pressure 105/69 114/74 Pulse Oximetry 95 95 Intake & Output 03/15/18 03/16/18 03/16/18 18:59 06:59 18:59 Intake Total 1500 / 1500 Output Total 100 / 100 Balance 1400 / 1400 Intake: Oral 1500 / 1500 Output: Urine 100 / 100 Other: # Incontinent Voids 0 Date of Last Bowel Movement 03/14/18 03/14/18 # Incontinent Bowel Movements 1 Narrative: GENERAL: Well-nourished, well-developed middle-aged male patient in [facility]. SKIN: Warm and dry. No rash. Right anterior chest with dialysis catheter, no surrounding erythema. HEENT: Normocephalic. Atraumatic. Pupils equal and round. Mucous membranes pink and moist. NECK: Supple. Trachea midline. CARDIOVASCULAR: Regular rate and rhythm. RESPIRATORY: No accessory muscle use. Clear to auscultation. Breath sounds equal bilaterally. GASTROINTESTINAL: Abdomen soft, non-tender, nondistended. Normoactive bowel sounds x4. MUSCULOSKELETAL: No obvious deformities. Extremities without clubbing, cyanosis , or edema. NEUROLOGICAL: Awake and alert. No obvious cranial nerve deficits. Moving all extremities spontaneously. Normal speech. - Urinary Catheter Management Indwelling Temp Sensing Catheter Cath placed during this visit: yes, but has since been removed by the nurse Reason for continuing: Decision to DC catheter Insertion date: 01/14/18 Insertion time: 22:00 Removal date: 01/21/18 Removal time: 18:00 Straight Cath placed during this visit: yes, but has since been removed by the nurse Reason for continuing: Acute urinary retention Insertion date: 03/16/18 Insertion time: 00:50 Removal date: 03/01/18 Removal time: 23:30 Assessment and Plan - Assessment (1) Acute renal failure Code(s): N17.9 - Acute kidney failure, unspecified Status: Acute Plan: Remains dialysis dependent at this time. 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 Medications should be adjusted for the patient's estimated GFR if clinically indicated. Avoid agents with significant potential for nephrotoxicity possible including NSAIDs for analgesia, iodine contrast agents. Gadolinium is contraindicated if the GFR is below 30. Monitor UOP and electrolytes for renal recovery. Continue calcium acetate for hyperphosphatemia. Hemodialysis HD seen during HD 3L taken off today. (2) Anemia Code(s): D64.9 - Anemia, unspecified Status: Acute Qualifiers: Anemia type: due to chronic kidney disease Plan: Epogen with dialysis. HGB stable (3) Hypertension Code(s): I10 - Essential (primary) hypertension Status: Acute Plan: Well controlled, will monitor. (4) Diabetes Code(s): E11.9 - Type 2 diabetes mellitus without complications Status: Acute Plan: Maintain blood sugars between 140 mg /dl to 180 mg/dl while hospitalized. Well controlled.
[2018-03-16] MEDS: Heparin 2,000 UNITS/2 ML Vial (for IV use) IV.FLUSH PRN (12:10)
[2018-03-16] MEDS: Calcium Acetate 667 MG Capsule PO SCH ×3 (13:53→17:36)
[2018-03-16] MEDS: Senna/Docusate Sodium 8.6/50 MG Tablet PO SCH ×2 (13:53→20:54)
[2018-03-16] MEDS: levETIRAcetam 500 MG Tablet PO SCH ×2 (13:54→20:54)
[2018-03-16] MEDS: Folic Acid 1 MG Tablet PO SCH (13:54)
[2018-03-16] MEDS: Carvedilol 6.25 MG Tablet PO SCH ×2 (13:55→20:54)
[2018-03-16] MEDS: amLODIPine 5 MG Tablet PO SCH (13:56)
--- NOTE | 2018-03-16 15:08 | P.PN ---
Subjective Interval history: Follow-up for ESRD on HD. The patient is seen after returning from dialysis. He reports an episode of urinary retention last night with a lot of lower abdominal which he attributes to being constipated. S/p straight cath removed ~ 400cc per RN. The patient is not sure if he has urinated since then. He cannot recall his last BM. Discussed with RN, plan to monitor urine output, bladder scan prn, straight cath if > 400cc or if patient is symptomatic. The patient denies any other medical complaints at this time. He is tolerating oral intake. Denies fevers/chills. Vitals signs reviewed and stable. Physical Exam Vital signs: Vital Signs 03/15/18 16:39 03/15/18 20:00 03/16/18 00:00 Temperature 97.2 F L 98.8 F 99.3 F Pulse Rate 62 76 70 Respiratory Rate 16 18 18 Blood Pressure 124/71 134/81 105/69 Pulse Oximetry 94 L 95 95 03/16/18 04:00 03/16/18 07:26 03/16/18 08:02 Temperature 98.6 F 97.7 F Pulse Rate 77 69 Respiratory Rate 18 16 16 Blood Pressure 114/74 118/81 Pulse Oximetry 95 95 03/16/18 12:04 Temperature Pulse Rate Respiratory Rate Blood Pressure Pulse Oximetry 95 Intake & Output 03/15/18 03/16/18 03/16/18 18:59 06:59 18:59 Intake Total 1500 / 1500 100 / 100 Output Total 100 / 100 3000 / 3000 Balance 1400 / 1400 -2900 / -2900 Intake: IV 100 / 100 Doxy 100 Inj 100 MG In NS Inj 100 / 100 100 ML @ 100 mls/hr IV.SIG Q12H [facility] Rx#:[id number] Oral 1500 / 1500 Output: Urine 100 / 100 Hemodialysis Amount 3000 / 3000 Other: # Incontinent Voids 0 Date of Last Bowel Movement 03/14/18 03/14/18 03/14/18 # Incontinent Bowel Movements 1 Narrative: GENERAL: Well-nourished, well-developed middle-aged male patient in [facility]. SKIN: Warm and dry. No rash. Right anterior chest with dialysis catheter, no surrounding erythema. HEENT: Normocephalic. Atraumatic. Pupils equal and round. Mucous membranes pink and moist. NECK: Supple. Trachea midline. CARDIOVASCULAR: Regular rate and rhythm. RESPIRATORY: No accessory muscle use. Clear to auscultation. Breath sounds equal bilaterally. GASTROINTESTINAL: Abdomen soft, non-tender, nondistended. Normoactive bowel sounds x4. MUSCULOSKELETAL: No obvious deformities. Extremities without clubbing, cyanosis , or edema. NEUROLOGICAL: Awake and alert. No obvious cranial nerve deficits. Moving all extremities spontaneously. Normal speech. - Urinary Catheter Management Indwelling Temp Sensing Catheter Cath placed during this visit: yes, but has since been removed by the nurse Reason for continuing: Decision to DC catheter Insertion date: 01/14/18 Insertion time: 22:00 Removal date: 01/21/18 Removal time: 18:00 Straight Cath placed during this visit: yes, but has since been removed by the nurse Reason for continuing: Acute urinary retention Insertion date: 03/16/18 Insertion time: 00:50 Removal date: 03/01/18 Removal time: 23:30 Results - Labs CBC & Chem 7: 03/15/18 06:06 03/15/18 06:06 Laboratory Results - last 24 hr 03/16/18 03/16/18 03/16/18 01:20 08:20 12:20 POC Glucose 94 43 L* Urine Color Preeti Urine Clarity Cloudy H Urine pH 7.0 Ur Specific [place] 1.009 Urine Protein 100 H Urine Glucose (UA) Negative Urine Ketones Negative Urine Occult Blood Large H Urine Nitrate Negative Urine Bilirubin Negative Urine Urobilinogen Less than 2 Ur Leukocyte Esterase Large H Urine RBC 12 H Urine WBC Urine WBC Clumps Many H Ur Renal Epithelial Cell 5 Urine Bacteria Rare H Micro UA Comment Cath-culture ind Ur Microscopic Review Not Reportable Urine Culture Comments Cath-cult indicated 03/16/18 12:22 POC Glucose 93 Urine Color Urine Clarity Urine pH Ur Specific [place] Urine Protein Urine Glucose (UA) Urine Ketones Urine Occult Blood Urine Nitrate Urine Bilirubin Urine Urobilinogen Ur Leukocyte Esterase Urine RBC Urine WBC Urine WBC Clumps Ur Renal Epithelial Cell Urine Bacteria Micro UA Comment Ur Microscopic Review Urine Culture Comments - Procedures Left IJ HD tunneled cath placed 02/08/18 by IR Assessment and Plan - Assessment (1) Gross hematuria Code(s): R31.0 - Gross hematuria Status: Acute Onset Date: ~03/10/18 - Plan 62-year-old white male who was admitted with cardiogenic shock and acute respiratory failure requiring CPR and epinephrine in the field, after being found down at home and being witnessed to possibly have undergone seizure-like activity. Intubation was attempted in the field but were unable to do so, patient was ultimately intubated in the hospital, started on pressors, placed in the ICU on mechanical ventilation. Found to have bilateral pneumothoraces with chest tubes placed, had developed some pneumoperitoneum which surgically deemed might have been a leak from his chest tubes as opposed to an acute surgical abdomen. Patient was started on antibiotics empirically for possible aspiration pneumonia but was ultimately discontinued off of them by infectious disease. Developed rhabdomyolysis with worsening acute renal failure which became sustained, with the patient now undergoing dialysis. Ultimately was discontinued off pressors, cardiology deferred heart cath due to renal failure. Patient had difficulty following commands after he was discontinued off of sedation and after extubation. Had an MRI done on 01/17 which showed no acute findings, only an older right parietal CVA. EEG was done which was unremarkable. End-stage renal disease -Continue MWF hemodialysis. -Nephrology following. Patient will likely need permanent dialysis. 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 Acute pain -pain meds PRN; wean IV morphine and transition to orals. 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 Possible anoxic brain injury -Neurology consulted and following -PT/OT/ST -ok to get out of bed per Neurology with assistance Dysphagia related to encephalopathy -ST rec mechanical soft, thin liquid diet Possible seizure -continue Keppra -EEG was negative NSTEMI -troponins 0.52, 1.89, 2.37 -cardiology consulted, recommended conservative medical management -continue ASA, Coreg, Isosorbide, amlodipine and atorvastatin Bilateral pneumothoraces - stable -chest tube removed 01/28/18 Pneumomediastinum Pneumoperitoneum with right retroperitoneal gas around the right kidney -Likely secondary to bilateral pneumothoraces with no surgical intervention warranted per general surgery Acute respiratory failure -continue supplemental O2 PRN -pulmonary following -O2 sat currently stable on room air Cirrhosis -likely secondary to alcohol abuse -continue BB Type II diabetes mellitus, uncontrolled ? -Not needing sliding scale coverage; frequently refusing 5 units Levemir at night -We will stop insulin for now; monitor daily blood glucose for need to restart Hypothyroidism -continue Synthroid Normocytic anemia - stable -s/p PRBC transfusion -epogen with dialysis MDM: self Code: DNR GI ppx: Protonix PO DVT ppx: Heparin SQ Discussed with: RN, patient, CM Dispo: awaiting placement once cleared by nephrology. Palliative care also following. Appreciate specialists assistance. Discharge Planning: Patient has remained dialysis dependent. Case management is aware of the possible need for dialysis. No payor source. Will need placement.
[2018-03-16] MEDS: QUEtiapine 25 MG Tablet PO SCH (20:54)
[2018-03-17] MEDS: Oral Hygiene Kit OROPHARYNG SCH ×4 (01:00→17:17)
[2018-03-17] MEDS: Levothyroxine 88 MCG Tablet PO SCH (05:42)
[2018-03-17] MEDS: amLODIPine 5 MG Tablet PO SCH (09:00)
[2018-03-17] MEDS: Calcium Acetate 667 MG Capsule PO SCH ×3 (09:37→17:23)
[2018-03-17] MEDS: Carvedilol 6.25 MG Tablet PO SCH ×2 (09:37→23:53)
[2018-03-17] MEDS: Senna/Docusate Sodium 8.6/50 MG Tablet PO SCH ×2 (09:37→23:52)
[2018-03-17] MEDS: Folic Acid 1 MG Tablet PO SCH (09:37)
[2018-03-17] MEDS: levETIRAcetam 500 MG Tablet PO SCH ×2 (09:38→23:52)
--- NOTE | 2018-03-17 10:42 | P.PN ---
Subjective Interval history: Follow-up for ESRD on HD, UTI, urinary retention. Patient is currently awake, alert, sitting upright in bed. Patient reports he has been able to urinate spontaneously overnight, did not require straight cath. He denies any further suprapubic pain or dysuria. He is unsure if he has had a bowel movement. He states he did not sleep well last night. He is requesting his Seroquel be increased at nighttime. He states he believes he was on 4 Seroquel tablets at bedtime previously to help him sleep. He has no other medical complaints at this time. Physical Exam Vital signs: Vital Signs 03/16/18 12:04 03/16/18 16:12 03/16/18 21:00 Temperature 99.7 F H 97.9 F Pulse Rate 95 H 84 Respiratory Rate 18 18 Blood Pressure 105/72 121/76 Pulse Oximetry 95 91 L 97 03/17/18 01:53 03/17/18 05:02 03/17/18 08:00 Temperature 97.3 F L 97.9 F 97.5 F L Pulse Rate 87 88 80 Respiratory Rate 18 18 18 Blood Pressure 94/67 L 95/59 L 98/66 L Pulse Oximetry 96 95 93 L 03/17/18 08:27 Temperature Pulse Rate Respiratory Rate Blood Pressure Pulse Oximetry 95 Intake & Output 03/16/18 03/17/18 03/17/18 18:59 06:59 18:59 Intake Total 2200 / 2200 500 / 500 Output Total 3050 / 3050 200 / 200 Balance -850 / -850 300 / 300 Intake: IV 200 / 200 100 / 100 Doxy 100 Inj 100 MG In NS Inj 200 / 200 100 / 100 100 ML @ 100 mls/hr IV.SIG Q12H [facility] Rx#:[id number] Oral 1999 / 1999 Other 400 / 400 Output: Urine 50 / 50 200 / 200 Hemodialysis Amount 3000 / 3000 Other: Date of Last Bowel Movement 03/14/18 03/14/18 # Incontinent Bowel Movements 1 Narrative: GENERAL: Well-nourished, well-developed middle-aged male patient in [facility]. SKIN: Warm and dry. No rash. Right anterior chest with dialysis catheter, no surrounding erythema. HEENT: Normocephalic. Atraumatic. Pupils equal and round. Mucous membranes pink and moist. NECK: Supple. Trachea midline. CARDIOVASCULAR: Regular rate and rhythm. RESPIRATORY: No accessory muscle use. Clear to auscultation. Breath sounds equal bilaterally. GASTROINTESTINAL: Abdomen soft, non-tender, nondistended. Normoactive bowel sounds x4. MUSCULOSKELETAL: No obvious deformities. Extremities without clubbing, cyanosis , or edema. NEUROLOGICAL: Awake and alert. No obvious cranial nerve deficits. Moving all extremities spontaneously. Normal speech. - Urinary Catheter Management Indwelling Temp Sensing Catheter Cath placed during this visit: yes, but has since been removed by the nurse Reason for continuing: Decision to DC catheter Insertion date: 01/14/18 Insertion time: 22:00 Removal date: 01/21/18 Removal time: 18:00 Straight Cath placed during this visit: yes, but has since been removed by the nurse Reason for continuing: Acute urinary retention Insertion date: 03/16/18 Insertion time: 00:50 Removal date: 03/01/18 Removal time: 23:30 Results - Labs CBC & Chem 7: 03/15/18 06:06 03/15/18 06:06 Laboratory Results - last 24 hr 03/16/18 03/16/18 12:20 12:22 POC Glucose 43 L* 93 Microbiology 03/16/18 01:20 Catheterized Urine Urine Culture - Final Viridans streptococcus grp - Procedures Left IJ HD tunneled cath placed 02/08/18 by IR Assessment and Plan - Assessment (1) Gross hematuria Code(s): R31.0 - Gross hematuria Status: Acute Onset Date: ~03/10/18 - Plan 62-year-old white male who was admitted with cardiogenic shock and acute respiratory failure requiring CPR and epinephrine in the field, after being found down at home and being witnessed to possibly have undergone seizure-like activity. Intubation was attempted in the field but were unable to do so, patient was ultimately intubated in the hospital, started on pressors, placed in the ICU on mechanical ventilation. Found to have bilateral pneumothoraces with chest tubes placed, had developed some pneumoperitoneum which surgically deemed might have been a leak from his chest tubes as opposed to an acute surgical abdomen. Patient was started on antibiotics empirically for possible aspiration pneumonia but was ultimately discontinued off of them by infectious disease. Developed rhabdomyolysis with worsening acute renal failure which became sustained, with the patient now undergoing dialysis. Ultimately was discontinued off pressors, cardiology deferred heart cath due to renal failure. Patient had difficulty following commands after he was discontinued off of sedation and after extubation. Had an MRI done on 01/17 which showed no acute findings, only an older right parietal CVA. EEG was done which was unremarkable. End-stage renal disease -Continue MWF hemodialysis. -Nephrology following. Patient will likely need permanent dialysis. 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 Possible anoxic brain injury -Neurology consulted and following -PT/OT/ST -ok to get out of bed per Neurology with assistance Dysphagia related to encephalopathy -ST rec mechanical soft, thin liquid diet Possible seizure -continue Keppra -EEG was negative NSTEMI -troponins 0.52, 1.89, 2.37 -cardiology consulted, recommended conservative medical management -continue ASA, Coreg, Isosorbide, amlodipine and atorvastatin Bilateral pneumothoraces - stable -chest tube removed 01/28/18 Pneumomediastinum Pneumoperitoneum with right retroperitoneal gas around the right kidney -Likely secondary to bilateral pneumothoraces with no surgical intervention warranted per general surgery Acute respiratory failure -continue supplemental O2 PRN -pulmonary following -O2 sat currently stable on room air Cirrhosis -likely secondary to alcohol abuse -continue BB Type II diabetes mellitus, uncontrolled ? -Not needing sliding scale coverage; frequently refusing 5 units Levemir at night -We will stop insulin for now; monitor daily blood glucose for need to restart Hypothyroidism -continue Synthroid Normocytic anemia - stable -s/p PRBC transfusion -epogen with dialysis MDM: self Code: DNR GI ppx: Protonix PO DVT ppx: Heparin SQ Discussed with: RN, patient, CM Dispo: awaiting placement once cleared by nephrology. Palliative care also following. Appreciate specialists assistance. Discharge Planning: Patient has remained dialysis dependent. Case management is aware of the possible need for dialysis. No payor source. Will need placement.
--- NOTE | 2018-03-17 14:00 | P.PNNP ---
Subjective Interval history: Patient is on hemodialysis Physical Exam Vital signs: Vital Signs 03/16/18 16:12 03/16/18 21:00 03/17/18 01:53 Temperature 99.7 F H 97.9 F 97.3 F L Pulse Rate 95 H 84 87 Respiratory Rate 18 18 18 Blood Pressure 105/72 121/76 94/67 L Pulse Oximetry 91 L 97 96 03/17/18 05:02 03/17/18 08:00 03/17/18 08:27 Temperature 97.9 F 97.5 F L Pulse Rate 88 70 Respiratory Rate 18 18 Blood Pressure 95/59 L 98/66 L Pulse Oximetry 95 93 L 95 Intake & Output 03/16/18 03/17/18 03/17/18 18:59 06:59 18:59 Intake Total 2200 / 2200 500 / 500 Output Total 3050 / 3050 200 / 200 Balance -850 / -850 300 / 300 Intake: IV 200 / 200 100 / 100 Doxy 100 Inj 100 MG In NS Inj 200 / 200 100 / 100 100 ML @ 100 mls/hr IV.SIG Q12H [facility] Rx#:[id number] Oral 1999 / 1999 Other 400 / 400 Output: Urine 50 / 50 200 / 200 Hemodialysis Amount 3000 / 3000 Other: Date of Last Bowel Movement 03/14/18 03/14/18 03/14/18 # Incontinent Bowel Movements 1 Narrative: GENERAL: Well-nourished, well-developed middle-aged male patient in [facility]. SKIN: Warm and dry. No rash. Right anterior chest with dialysis catheter, no surrounding erythema. HEENT: Normocephalic. Atraumatic. Pupils equal and round. Mucous membranes pink and moist. NECK: Supple. Trachea midline. CARDIOVASCULAR: Regular rate and rhythm. RESPIRATORY: No accessory muscle use. Clear to auscultation. Breath sounds equal bilaterally. GASTROINTESTINAL: Abdomen soft, non-tender, nondistended. Normoactive bowel sounds x4. MUSCULOSKELETAL: No obvious deformities. Extremities without clubbing, cyanosis , or edema. NEUROLOGICAL: Awake and alert. No obvious cranial nerve deficits. Moving all extremities spontaneously. Normal speech. - Urinary Catheter Management Indwelling Temp Sensing Catheter Cath placed during this visit: yes, but has since been removed by the nurse Reason for continuing: Decision to DC catheter Insertion date: 01/14/18 Insertion time: 22:00 Removal date: 01/21/18 Removal time: 18:00 Straight Cath placed during this visit: yes, but has since been removed by the nurse Reason for continuing: Acute urinary retention Insertion date: 03/16/18 Insertion time: 00:50 Removal date: 03/01/18 Removal time: 23:30 Assessment and Plan - Assessment (1) Acute renal failure Code(s): N17.9 - Acute kidney failure, unspecified Status: Acute Plan: Remains dialysis dependent at this time. 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 Medications should be adjusted for the patient's estimated GFR if clinically indicated. Avoid agents with significant potential for nephrotoxicity possible including NSAIDs for analgesia, iodine contrast agents. Gadolinium is contraindicated if the GFR is below 30. Monitor UOP and electrolytes for renal recovery. Continue calcium acetate for hyperphosphatemia. Hemodialysis HD done yesterday 3 L was taken off Follow-up with Dr. Blevins. (2) Anemia Code(s): D64.9 - Anemia, unspecified Status: Acute Qualifiers: Anemia type: due to chronic kidney disease Plan: Epogen with dialysis. HGB stable (3) Hypertension Code(s): I10 - Essential (primary) hypertension Status: Acute Plan: Well controlled, will monitor. (4) Diabetes Code(s): E11.9 - Type 2 diabetes mellitus without complications Status: Acute Plan: Maintain blood sugars between 140 mg /dl to 180 mg/dl while hospitalized. Well controlled.
[2018-03-17] MEDS: Acetaminophen 325 MG Tablet PO PRN (17:23)
[2018-03-17] MEDS: QUEtiapine 25 MG Tablet PO SCH (23:57)
[2018-03-18] MEDS: Oral Hygiene Kit OROPHARYNG SCH ×4 (00:41→16:51)
[2018-03-18] MEDS: Levothyroxine 88 MCG Tablet PO SCH (07:01)
[2018-03-18] MEDS: Carvedilol 6.25 MG Tablet PO SCH ×2 (08:45→21:10)
[2018-03-18] MEDS: amLODIPine 5 MG Tablet PO SCH (08:45)
[2018-03-18] MEDS: Senna/Docusate Sodium 8.6/50 MG Tablet PO SCH ×2 (08:46→21:10)
[2018-03-18] MEDS: Calcium Acetate 667 MG Capsule PO SCH ×3 (08:47→17:14)
[2018-03-18] MEDS: levETIRAcetam 500 MG Tablet PO SCH ×2 (08:47→21:10)
[2018-03-18] MEDS: Folic Acid 1 MG Tablet PO SCH (08:47)
--- NOTE | 2018-03-18 09:06 | P.PN ---
Subjective Interval history: Follow-up for ESRD on HD, UTI, urinary retention. Patient is currently awake, alert, sitting upright in bed. Speech therapy and RN at bedside. Patient reports his urine appeared as though it had sand in the bottom of the sample overnight. He denies any further suprapubic pain or dysuria. He is urinating spontaneously, denies any further retention. He states he did sleep well last night on increased dose of seroquel. He is requesting his IV antibiotics be changed to po due to burning. He has no other medical complaints at this time. Physical Exam Vital signs: Vital Signs 03/17/18 11:39 03/17/18 12:00 03/17/18 16:00 Temperature 97.7 F Pulse Rate 67 65 68 Respiratory Rate 16 Blood Pressure 103/66 Pulse Oximetry 97 03/17/18 16:30 03/17/18 18:30 03/17/18 20:00 Temperature 96 F L Pulse Rate 63 72 Respiratory Rate 18 5 L Blood Pressure 113/74 Pulse Oximetry 97 95 03/17/18 20:36 03/18/18 00:30 03/18/18 05:43 Temperature 98.4 F 97.8 F 97.6 F Pulse Rate 73 71 70 Respiratory Rate 18 18 18 Blood Pressure 113/80 96/67 L 92/66 L Pulse Oximetry 95 97 98 03/18/18 08:00 Temperature 97.5 F L Pulse Rate 68 Respiratory Rate 20 Blood Pressure 92/61 L Pulse Oximetry 95 Intake & Output 03/17/18 03/18/18 03/18/18 18:59 06:59 18:59 Intake Total 100 / 100 100 / 100 Output Total 200 / 200 Balance 100 / 100 -200 / -200 100 / 100 Intake: IV 100 / 100 100 / 100 Doxy 100 Inj 100 MG In NS Inj 100 / 100 100 / 100 100 ML @ 100 mls/hr IV.SIG Q12H [facility] Rx#:[id number] Output: Urine 200 / 200 Other: Date of Last Bowel Movement 03/14/18 03/14/18 Narrative: GENERAL: Well-nourished, well-developed middle-aged male patient in [facility]. SKIN: Warm and dry. No rash. Right anterior chest with dialysis catheter, no surrounding erythema. HEENT: Normocephalic. Atraumatic. Pupils equal and round. Mucous membranes pink and moist. NECK: Supple. Trachea midline. CARDIOVASCULAR: Regular rate and rhythm. RESPIRATORY: No accessory muscle use. Clear to auscultation. Breath sounds equal bilaterally. GASTROINTESTINAL: Abdomen soft, non-tender, nondistended. Normoactive bowel sounds x4. MUSCULOSKELETAL: No obvious deformities. Extremities without clubbing, cyanosis , or edema. NEUROLOGICAL: Awake and alert. No obvious cranial nerve deficits. Moving all extremities spontaneously. Normal speech. - Urinary Catheter Management Indwelling Temp Sensing Catheter Cath placed during this visit: yes, but has since been removed by the nurse Reason for continuing: Decision to DC catheter Insertion date: 01/14/18 Insertion time: 22:00 Removal date: 01/21/18 Removal time: 18:00 Straight Cath placed during this visit: yes, but has since been removed by the nurse Reason for continuing: Acute urinary retention Insertion date: 03/16/18 Insertion time: 00:50 Removal date: 03/01/18 Removal time: 23:30 Results - Labs CBC & Chem 7: 03/15/18 06:06 03/15/18 06:06 Laboratory Results - last 24 hr 03/17/18 13:14 POC Glucose 142 H Microbiology 03/16/18 01:20 Catheterized Urine Urine Culture - Final Viridans streptococcus grp - Procedures Left IJ HD tunneled cath placed 02/08/18 by IR Assessment and Plan - Assessment (1) Gross hematuria Code(s): R31.0 - Gross hematuria Status: Acute Onset Date: ~03/10/18 - Plan 62-year-old white male who was admitted with cardiogenic shock and acute respiratory failure requiring CPR and epinephrine in the field, after being found down at home and being witnessed to possibly have undergone seizure-like activity. Intubation was attempted in the field but were unable to do so, patient was ultimately intubated in the hospital, started on pressors, placed in the ICU on mechanical ventilation. Found to have bilateral pneumothoraces with chest tubes placed, had developed some pneumoperitoneum which surgically deemed might have been a leak from his chest tubes as opposed to an acute surgical abdomen. Patient was started on antibiotics empirically for possible aspiration pneumonia but was ultimately discontinued off of them by infectious disease. Developed rhabdomyolysis with worsening acute renal failure which became sustained, with the patient now undergoing dialysis. Ultimately was discontinued off pressors, cardiology deferred heart cath due to renal failure. Patient had difficulty following commands after he was discontinued off of sedation and after extubation. Had an MRI done on 01/17 which showed no acute findings, only an older right parietal CVA. EEG was done which was unremarkable. End-stage renal disease -Continue MWF hemodialysis. -Nephrology following. Patient will likely need permanent dialysis. 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 -Appreciate nephrology recommendations UTI with Urinary Retention -Patient with episode of urinary retention overnight 03/16, s/p straight cath -UA remarkable for large leuks, WBCs, bacteria -Bladder scan prn, straight cath if > 400cc or if patient symptomatic -Started on antibiotics with IV doxycycline x7days, changed to po on 03/18 -Urine culture with Viridans streptococci -Strain urine to rule out stones due to reported sediment vs "sand" appearance in urine Anxiety and agitated behaviors; questionable decision-making ability -Psychiatry consulted; Patient has decision-making capacity to participate medical decisions at this moment. 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 Possible anoxic brain injury -Neurology consulted and following -PT/OT/ST -Ok to get out of bed per Neurology with assistance Dysphagia related to encephalopathy -ST rec mechanical soft, thin liquid diet Possible seizure -Continue Keppra -EEG was negative NSTEMI -Troponins 0.52, 1.89, 2.37 -Cardiology consulted, recommended conservative medical management -Continue ASA, Coreg, Isosorbide, amlodipine and atorvastatin Bilateral pneumothoraces - stable -Chest tube removed 01/28/18 Pneumomediastinum Pneumoperitoneum with right retroperitoneal gas around the right kidney -Likely secondary to bilateral pneumothoraces with no surgical intervention warranted per general surgery Acute respiratory failure -Continue supplemental O2 PRN -Pulmonary following -O2 sat currently stable on room air Cirrhosis -Likely secondary to alcohol abuse -Continue BB Type II diabetes mellitus, uncontrolled ? -Not needing sliding scale coverage; frequently refusing 5 units Levemir at night -We will stop insulin for now; monitor daily blood glucose for need to restart Hypothyroidism -Continue Synthroid Normocytic anemia - stable -S/p PRBC transfusion -Epogen with dialysis MDM: self Code: DNR GI ppx: Protonix PO DVT ppx: Heparin SQ Discussed with: RN, patient, CM Dispo: awaiting placement once cleared by nephrology. Palliative care also following. Appreciate specialists assistance. Discharge Planning: Patient has remained dialysis dependent. Case management is aware of the possible need for dialysis. No payor source. Will need placement.
--- NOTE | 2018-03-18 10:27 | P.PNNP ---
Subjective Interval history: Resting comfortably. Denies any shortness of breath, chest pain, nausea, or vomiting. <Smiley Barth - Last Filed: 03/18/18 15:31> Physical Exam Vital signs: Vital Signs 03/17/18 11:39 03/17/18 12:00 03/17/18 16:00 Temperature 97.7 F Pulse Rate 67 65 68 Respiratory Rate 16 Blood Pressure 103/66 Pulse Oximetry 97 03/17/18 16:30 03/17/18 18:30 03/17/18 20:00 Temperature 96 F L Pulse Rate 63 72 Respiratory Rate 18 5 L Blood Pressure 113/74 Pulse Oximetry 97 95 03/17/18 20:36 03/18/18 00:30 03/18/18 05:43 Temperature 98.4 F 97.8 F 97.6 F Pulse Rate 73 71 70 Respiratory Rate 18 18 18 Blood Pressure 113/80 96/67 L 92/66 L Pulse Oximetry 95 97 98 03/18/18 08:00 Temperature 97.5 F L Pulse Rate 67 Respiratory Rate 20 Blood Pressure 92/61 L Pulse Oximetry 95 Intake & Output 03/17/18 03/18/18 03/18/18 18:59 06:59 18:59 Intake Total 100 / 100 100 / 100 Output Total 200 / 200 Balance 100 / 100 -200 / -200 100 / 100 Intake: IV 100 / 100 100 / 100 Doxy 100 Inj 100 MG In NS Inj 100 / 100 100 / 100 100 ML @ 100 mls/hr IV.SIG Q12H [facility] Rx#:[id number] Output: Urine 200 / 200 Other: Date of Last Bowel Movement 03/14/18 03/14/18 Narrative: GENERAL: Well-nourished, well-developed middle-aged male patient in [facility]. SKIN: Warm and dry. No rash. Right anterior chest with dialysis catheter, no surrounding erythema. NECK: Supple. Trachea midline. No JVD CARDIOVASCULAR: Regular rate and rhythm. RESPIRATORY: No accessory muscle use. Clear to auscultation. Breath sounds equal bilaterally. GASTROINTESTINAL: Abdomen soft, non-tender, nondistended. Normoactive bowel sounds x4. MUSCULOSKELETAL: No obvious deformities. Extremities without clubbing, cyanosis , or edema. NEUROLOGICAL: Awake and alert. Normal speech. - Urinary Catheter Management Indwelling Temp Sensing Catheter Cath placed during this visit: yes, but has since been removed by the nurse Reason for continuing: Decision to DC catheter Insertion date: 01/14/18 Insertion time: 22:00 Removal date: 01/21/18 Removal time: 18:00 Straight Cath placed during this visit: yes, but has since been removed by the nurse Reason for continuing: Acute urinary retention Insertion date: 03/16/18 Insertion time: 00:50 Removal date: 03/01/18 Removal time: 23:30 <Smiley Barth - Last Filed: 03/18/18 15:31> Vital signs: Vital Signs 03/18/18 00:30 03/18/18 05:43 03/18/18 08:00 Temperature 97.8 F 97.6 F 97.5 F L Pulse Rate 71 70 67 Respiratory Rate 18 18 20 Blood Pressure 96/67 L 92/66 L 92/61 L Pulse Oximetry 97 98 95 03/18/18 12:00 03/18/18 12:09 03/18/18 16:00 Temperature 97.6 F 97.6 F 97.6 F Pulse Rate 65 65 68 Respiratory Rate 20 20 20 Blood Pressure 100/64 100/64 102/68 Pulse Oximetry 99 99 98 03/18/18 20:42 Temperature 97.6 F Pulse Rate 71 Respiratory Rate 18 Blood Pressure 122/74 Pulse Oximetry 98 Intake & Output 03/18/18 03/18/18 03/19/18 06:59 18:59 06:59 Intake Total 100 / 100 Output Total 200 / 200 Balance -200 / -200 100 / 100 Intake: IV 100 / 100 Doxy 100 Inj 100 MG In NS Inj 100 / 100 100 ML @ 100 mls/hr IV.SIG Q12H [facility] Rx#:[id number] Output: Urine 200 / 200 Other: Date of Last Bowel Movement 03/14/18 - Urinary Catheter Management Indwelling Temp Sensing Catheter Cath placed during this visit: no Straight Cath placed during this visit: no <Brianna Blevins - Last Filed: 03/18/18 20:52> Assessment and Plan - Assessment (1) Acute renal failure Code(s): N17.9 - Acute kidney failure, unspecified Status: Acute Plan: Remains dialysis dependent at this time. 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 Medications should be adjusted for the patient's estimated GFR if clinically indicated. Avoid agents with significant potential for nephrotoxicity possible including NSAIDs for analgesia, iodine contrast agents. Gadolinium is contraindicated if the GFR is below 30. Monitor UOP and electrolytes for renal recovery. Continue calcium acetate for hyperphosphatemia. Hemodialysis planned for tomorrow will remove fluid as tolerated. (2) Anemia Code(s): D64.9 - Anemia, unspecified Status: Acute Qualifiers: Anemia type: due to chronic kidney disease Plan: Epogen with dialysis. HGB stable (3) Hypertension Code(s): I10 - Essential (primary) hypertension Status: Acute Plan: Well controlled, will monitor. (4) Diabetes Code(s): E11.9 - Type 2 diabetes mellitus without complications Status: Acute Plan: Maintain blood sugars between 140 mg /dl to 180 mg/dl while hospitalized. Well controlled. <Smiley Barth - Last Filed: 03/18/18 15:31> - Assessment (1) Acute renal failure Code(s): N17.9 - Acute kidney failure, unspecified Status: Acute Plan: Patient seen and examined, agree with above. Watch for renal recovery and HD as needed. Possibly HD in AM. (2) Anemia Code(s): D64.9 - Anemia, unspecified Status: Acute Qualifiers: Anemia type: due to chronic kidney disease (3) Hypertension Code(s): I10 - Essential (primary) hypertension Status: Acute (4) Diabetes Code(s): E11.9 - Type 2 diabetes mellitus without complications Status: Acute <Brianna Blevins - Last Filed: 03/18/18 20:52>
[2018-03-18] MEDS: oxyCODONE/Acetaminophen 10/325 Tablet PO PRN (15:26)
[2018-03-18] MEDS: Bisacodyl 10 MG Supp RECTAL PRN (15:29)
[2018-03-18] MEDS ORDERED: Sod Phosphate/Sod Biphosphate (Adult) Enema 133 ML Bottle RECTAL ONE (16:13)
--- NOTE | 2018-03-18 17:08 | XR ---
EXAM DATE: 03/18/2018 5:02 PM EST AGE/SEX: 62 years / Male INDICATIONS: Constipation. CLINICAL DATA: This is the patient's initial encounter. Patient reports that signs and symptoms have been present for 1 day and indicates a pain score of 0/10. MEDICAL/SURGICAL HISTORY: . Diabetes. Renal disease. . Left renal biopsy. [place] [facility] [place]AST, 03/11/2018. . FINDINGS: A large amount of stool is noted throughout the colon, greatest in the rectosigmoid. No dilated loop s of bowel are seen. Osseous structures are intact. CONCLUSION: Large amount of stool consistent with the clinical history of constipation. Electronically signed by: Pawel Alcala MD Board Certified Radiologist 03/18/2018 5:06 PM EST
[2018-03-18] MEDS: QUEtiapine 25 MG Tablet PO SCH (21:10)
[2018-03-19] MEDS: Oral Hygiene Kit OROPHARYNG SCH ×3 (04:28→15:05)
[2018-03-19] MEDS: Levothyroxine 88 MCG Tablet PO SCH (05:31)
[2018-03-19] MEDS: Folic Acid 1 MG Tablet PO SCH (09:00)
[2018-03-19] MEDS: Carvedilol 6.25 MG Tablet PO SCH ×2 (09:00→21:11)
[2018-03-19] MEDS: Calcium Acetate 667 MG Capsule PO SCH ×3 (09:01→18:10)
[2018-03-19] MEDS: Senna/Docusate Sodium 8.6/50 MG Tablet PO SCH ×2 (09:02→21:10)
[2018-03-19] MEDS: levETIRAcetam 500 MG Tablet PO SCH ×2 (09:02→21:10)
[2018-03-19] MEDS: amLODIPine 5 MG Tablet PO SCH (09:02)
[2018-03-19 10:38] LABS: Baso # (Auto) 0.1 th/mm3 (0.0-0.2); Eos # (Auto) 0.4 th/mm3 (0.0-0.4); Eos % (Auto) 4.3 % (0.0-4.0); Hematocrit 36.2 % (39.0-51.0); Hemoglobin 11.8 gm/dL (13.0-17.0); Lymph # (Auto) 1.4 th/mm3 (1.0-4.8); Lymph % (Auto) 17.4 % (9.0-44.0); Mean Corpuscular HGB Conc 32.5 % (32.0-36.0); Mean Corpuscular Hemoglobin 28.5 pg (27.0-34.0); Mean Corpuscular Volume 87.7 fL (80.0-100.0); Mean Platelet Volume 7.4 fL (7.0-11.0); Mono # (Auto) 0.6 th/mm3 (0.0-0.9); Neut # (Auto) 5.8 th/mm3 (1.8-7.7); Neut % (Auto) 70.3 % (16.0-70.0); Platelet Count 307 th/mm3 (150-450); Red Blood Count 4.13 mil/mm3 (4.50-5.90); Red Cell Distribution Width 16.4 % (11.6-17.2); White Blood Count 8.3 th/mm3 (4.0-11.0)
[2018-03-19 11:00] LABS: Albumin 3.2 g/dL (3.4-5.0); Calcium 10.4 mg/dL (8.5-10.1); Potassium 5.3 meq/L (3.5-5.1)
[2018-03-19 11:03] LABS: Phosphorus 4.2 mg/dL (2.5-4.9)
--- NOTE | 2018-03-19 11:20 | P.PN ---
Subjective Interval history: Follow-up for ESRD on HD, UTI, urinary retention, constipation. The patient is seen in his wheelchair in the hallway. He states he had a very large bowel movement last night. Denies any abdominal pain. Tolerating oral intake. He reports spontaneous urination, denies any retention. He reports some low back pain today, worse after getting out of bed. Denies any other medical complaints at this time. Physical Exam Vital signs: Vital Signs 03/18/18 12:00 03/18/18 12:09 03/18/18 16:00 Temperature 97.6 F 97.6 F 97.6 F Pulse Rate 65 65 68 Respiratory Rate 20 20 20 Blood Pressure 100/64 100/64 102/68 Pulse Oximetry 99 99 98 03/18/18 20:00 03/18/18 20:42 03/19/18 00:00 Temperature 97.6 F Pulse Rate 74 71 70 Respiratory Rate 18 Blood Pressure 122/74 Pulse Oximetry 98 03/19/18 00:24 03/19/18 06:17 03/19/18 07:50 Temperature 97.6 F 97.9 F 97.4 F L Pulse Rate 71 70 67 Respiratory Rate 18 18 20 Blood Pressure 125/83 108/67 104/66 Pulse Oximetry 98 92 L 94 L 03/19/18 08:00 Temperature Pulse Rate 76 Respiratory Rate Blood Pressure Pulse Oximetry Intake & Output 03/18/18 03/19/18 03/19/18 18:59 06:59 18:59 Intake Total 100 / 100 Balance 100 / 100 Intake: IV 100 / 100 Doxy 100 Inj 100 MG In NS Inj 100 / 100 100 ML @ 100 mls/hr IV.SIG Q12H [facility] Rx#:[id number] Other: Date of Last Bowel Movement 03/18/18 03/18/18 Narrative: GENERAL: Well-nourished, well-developed middle-aged male patient in [facility]. SKIN: Warm and dry. No rash. Right anterior chest with dialysis catheter, no surrounding erythema. HEENT: Normocephalic. Atraumatic. Mucous membranes pink and moist. CARDIOVASCULAR: Regular rate and rhythm. RESPIRATORY: No accessory muscle use. Clear to auscultation. Breath sounds equal bilaterally. GASTROINTESTINAL: Abdomen soft, non-tender, nondistended. Normoactive bowel sounds x4. MUSCULOSKELETAL: No obvious deformities. Extremities without clubbing, cyanosis , or edema. NEUROLOGICAL: Awake and alert. No obvious cranial nerve deficits. Moving all extremities spontaneously. Normal speech. - Urinary Catheter Management Indwelling Temp Sensing Catheter Cath placed during this visit: yes, but has since been removed by the nurse Reason for continuing: Decision to DC catheter Insertion date: 01/14/18 Insertion time: 22:00 Removal date: 01/21/18 Removal time: 18:00 Straight Cath placed during this visit: yes, but has since been removed by the nurse Reason for continuing: Acute urinary retention Insertion date: 03/16/18 Insertion time: 00:50 Removal date: 03/01/18 Removal time: 23:30 Results - Labs CBC & Chem 7: 03/19/18 09:52 03/19/18 09:52 Laboratory Results - last 24 hr 03/18/18 03/18/18 03/19/18 13:28 22:46 09:52 WBC RBC Hgb Hct MCV MCH MCHC RDW Plt Count MPV Neut % (Auto) Lymph % (Auto) [place] % (Auto) Eos % (Auto) Baso % (Auto) Neut # (Auto) Lymph # (Auto) [place] # (Auto) Eos # (Auto) Baso # (Auto) WBC Differential Differential Comment Sodium 134 L Potassium 5.3 H Chloride 94 L Carbon Dioxide 30.0 Anion Gap 10 BUN 38 H Creatinine 8.49 H Estimated GFR 6 L POC Glucose 189 H 123 H Random Glucose 100 Calcium 10.4 H Phosphorus 4.2 Albumin 3.2 L 03/19/18 09:52 WBC 8.3 RBC 4.13 L Hgb 11.8 L Hct 36.2 L MCV 87.7 MCH 28.5 MCHC 32.5 RDW 16.4 Plt Count 307 MPV 7.4 Neut % (Auto) 70.3 H Lymph % (Auto) 17.4 [place] % (Auto) 7.0 Eos % (Auto) 4.3 H Baso % (Auto) 1.0 Neut # (Auto) 5.8 Lymph # (Auto) 1.4 [place] # (Auto) 0.6 Eos # (Auto) 0.4 Baso # (Auto) 0.1 WBC Differential . Differential Comment Auto diff final Sodium Potassium Chloride Carbon Dioxide Anion Gap BUN Creatinine Estimated GFR POC Glucose Random Glucose Calcium Phosphorus Albumin - Imaging Impressions Abdomen X-Ray 03/18/18 00:00 A large amount of stool is noted throughout the colon, greatest in the rectosigmoid. No dilated loops of bowel are seen. Osseous structures are intact. CONCLUSION: Large amount of stool consistent with the clinical history of constipation. - Procedures Left IJ HD tunneled cath placed 02/08/18 by IR Assessment and Plan - Assessment (1) Gross hematuria Code(s): R31.0 - Gross hematuria Status: Acute Onset Date: ~03/10/18 - Plan 62-year-old white male who was admitted with cardiogenic shock and acute respiratory failure requiring CPR and epinephrine in the field, after being found down at home and being witnessed to possibly have undergone seizure-like activity. Intubation was attempted in the field but were unable to do so, patient was ultimately intubated in the hospital, started on pressors, placed in the ICU on mechanical ventilation. Found to have bilateral pneumothoraces with chest tubes placed, had developed some pneumoperitoneum which surgically deemed might have been a leak from his chest tubes as opposed to an acute surgical abdomen. Patient was started on antibiotics empirically for possible aspiration pneumonia but was ultimately discontinued off of them by infectious disease. Developed rhabdomyolysis with worsening acute renal failure which became sustained, with the patient now undergoing dialysis. Ultimately was discontinued off pressors, cardiology deferred heart cath due to renal failure. Patient had difficulty following commands after he was discontinued off of sedation and after extubation. Had an MRI done on 01/17 which showed no acute findings, only an older right parietal CVA. EEG was done which was unremarkable. End-stage renal disease -Continue MWF hemodialysis. -Nephrology following. Patient will likely need permanent dialysis. 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 -Appreciate nephrology recommendations UTI with Urinary Retention -Patient with episode of urinary retention overnight 03/16, s/p straight cath -UA remarkable for large leuks, WBCs, bacteria -Bladder scan prn, straight cath if > 400cc or if patient symptomatic -Started on antibiotics with IV doxycycline x7days, changed to po on 03/18 -Urine culture with Viridans streptococci -Strain urine to rule out stones due to reported sediment vs "sand" appearance in urine -patient urinating spontaneously, no further retention Anxiety and agitated behaviors; questionable decision-making ability -Psychiatry consulted; Patient has decision-making capacity to participate medical decisions at this moment. 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 Possible anoxic brain injury -Neurology consulted and following -PT/OT/ST -Ok to get out of bed per Neurology with assistance Dysphagia related to encephalopathy -ST rec mechanical soft, thin liquid diet Possible seizure -Continue Keppra -EEG was negative NSTEMI -Troponins 0.52, 1.89, 2.37 -Cardiology consulted, recommended conservative medical management -Continue ASA, Coreg, Isosorbide, amlodipine and atorvastatin Bilateral pneumothoraces - stable -Chest tube removed 01/28/18 Pneumomediastinum Pneumoperitoneum with right retroperitoneal gas around the right kidney -Likely secondary to bilateral pneumothoraces with no surgical intervention warranted per general surgery Acute respiratory failure -Continue supplemental O2 PRN -Pulmonary following -O2 sat currently stable on room air Cirrhosis -Likely secondary to alcohol abuse -Continue BB Type II diabetes mellitus, uncontrolled ? -Not needing sliding scale coverage; frequently refusing 5 units Levemir at night -We will stop insulin for now; monitor daily blood glucose for need to restart Hypothyroidism -Continue Synthroid Normocytic anemia - stable -S/p PRBC transfusion -Epogen with dialysis MDM: self Code: DNR GI ppx: Protonix PO DVT ppx: Heparin SQ Discussed with: RN, patient, CM Dispo: awaiting placement once cleared by nephrology. Palliative care also following. Appreciate specialists assistance. Discharge Planning: Patient has remained dialysis dependent. Case management is aware of the possible need for dialysis. No payor source. Will need placement.
[2018-03-19] MEDS: Heparin 10,000 UNITS/10 ML Vial (for IV use) OTHER PRN (17:26)
--- NOTE | 2018-03-19 17:45 | P.PNNP ---
Subjective Interval history: Patient seen during HD, alert, no SOB. Physical Exam Vital signs: Vital Signs 03/18/18 20:00 03/18/18 20:42 03/19/18 00:00 Temperature 97.6 F Pulse Rate 74 71 70 Respiratory Rate 18 Blood Pressure 122/74 Pulse Oximetry 98 03/19/18 00:24 03/19/18 06:17 03/19/18 07:50 Temperature 97.6 F 97.9 F 97.4 F L Pulse Rate 71 70 67 Respiratory Rate 18 18 20 Blood Pressure 125/83 108/67 104/66 Pulse Oximetry 98 92 L 94 L 03/19/18 08:00 03/19/18 11:45 Temperature 97.9 F Pulse Rate 76 70 Respiratory Rate 20 Blood Pressure 109/65 Pulse Oximetry 94 L Intake & Output 03/18/18 03/19/18 03/19/18 18:59 06:59 18:59 Intake Total 100 / 100 Output Total 1999 Balance 100 / 100 -1999 Intake: IV 100 / 100 Doxy 100 Inj 100 MG In NS Inj 100 / 100 100 ML @ 100 mls/hr IV[facility]SIG Q[facility]H [facility] Rx#:[id number] Output: Hemodialysis Amount 1999 Other: Date of Last Bowel Movement 03/18/18 03/18/18 Narrative: GENERAL: Well-nourished, well-developed middle-aged male patient in [facility]. SKIN: Warm and dry. No rash. Right anterior chest with dialysis catheter, no surrounding erythema. HEENT: Normocephalic. Atraumatic. Mucous membranes pink and moist. CARDIOVASCULAR: Regular rate and rhythm. RESPIRATORY: No accessory muscle use. Clear to auscultation. Breath sounds equal bilaterally. GASTROINTESTINAL: Abdomen soft, non-tender, nondistended. Normoactive bowel sounds x4. MUSCULOSKELETAL: No obvious deformities. Extremities without clubbing, cyanosis , or edema. NEUROLOGICAL: Awake and alert. No obvious cranial nerve deficits. Moving all extremities spontaneously. Normal speech. - Urinary Catheter Management Indwelling Temp Sensing Catheter Cath placed during this visit: yes, but has since been removed by the nurse Reason for continuing: Decision to DC catheter Insertion date: 01/14/18 Insertion time: 22:00 Removal date: 01/21/18 Removal time: 18:00 Straight Cath placed during this visit: yes, but has since been removed by the nurse Reason for continuing: Acute urinary retention Insertion date: 03/16/18 Insertion time: 00:50 Removal date: 03/01/18 Removal time: 23:30 Assessment and Plan - Assessment (1) Acute renal failure Code(s): N17.9 - Acute kidney failure, unspecified Status: Acute Plan: Patient with Acute kidney injury, related to ATN and Rhabdo. Non oliguric, Kidney Biopsy was done. Still has elevated BUN and Creatinine. Watch for renal recovery, HD now, remove fluid as tolerated. (2) Anemia Code(s): D64.9 - Anemia, unspecified Status: Acute Qualifiers: Anemia type: due to chronic kidney disease Plan: Epogen with dialysis. HGB stable (3) Hypertension Code(s): I10 - Essential (primary) hypertension Status: Acute Plan: Well controlled, will monitor. (4) Diabetes Code(s): E11.9 - Type 2 diabetes mellitus without complications Status: Acute Plan: Maintain blood sugars between 140 mg /dl to 180 mg/dl while hospitalized. Well controlled.
[2018-03-19] MEDS: QUEtiapine 25 MG Tablet PO SCH (21:10)
[2018-03-20] MEDS: Oral Hygiene Kit OROPHARYNG SCH ×4 (02:22→17:04)
[2018-03-20] MEDS: Levothyroxine 88 MCG Tablet PO SCH (06:03)
[2018-03-20] MEDS: Carvedilol 6.25 MG Tablet PO SCH ×2 (09:52→21:46)
[2018-03-20] MEDS: amLODIPine 5 MG Tablet PO SCH (09:53)
[2018-03-20] MEDS: Folic Acid 1 MG Tablet PO SCH (09:54)
[2018-03-20] MEDS: levETIRAcetam 500 MG Tablet PO SCH ×2 (09:54→21:45)
[2018-03-20] MEDS: Senna/Docusate Sodium 8.6/50 MG Tablet PO SCH ×2 (09:54→21:43)
[2018-03-20] MEDS: Calcium Acetate 667 MG Capsule PO SCH ×3 (09:55→17:35)
--- NOTE | 2018-03-20 09:57 | P.PNNP ---
Subjective Interval history: Seen eating breakfast. No acute events overnight. Hemodialysis yesterday tolerated well. <Smiley Barth - Last Filed: 03/20/18 09:53> Physical Exam Vital signs: Vital Signs 03/19/18 11:45 03/19/18 20:00 03/19/18 20:32 Temperature 97.9 F 97.8 F Pulse Rate 70 92 H Respiratory Rate 20 Blood Pressure 109/65 123/62 Pulse Oximetry 94 L 95 95 03/20/18 00:00 03/20/18 04:00 Temperature 98.4 F 98.3 F Pulse Rate 80 70 Respiratory Rate 19 20 Blood Pressure 118/71 115/69 Pulse Oximetry 96 95 Intake & Output 03/19/18 03/20/18 03/20/18 18:59 06:59 18:59 Output Total 1999 0 / 0 300 / 300 Balance -1999 0 / 0 -300 / -300 Weight 95.6 kg Output: Urine 0 / 0 300 / 300 Hemodialysis Amount 1999 Other: # Voids 0 # Incontinent Voids 0 Date of Last Bowel Movement 03/18/18 03/18/18 Narrative: GENERAL: Well-nourished, well-developed middle-aged male patient in [facility]. SKIN: Warm and dry. No rash. Right anterior chest with dialysis catheter, no surrounding erythema. HEENT: Normocephalic. Atraumatic. Mucous membranes pink and moist. CARDIOVASCULAR: Regular rate and rhythm. RESPIRATORY: No accessory muscle use. Clear to auscultation. Breath sounds equal bilaterally. GASTROINTESTINAL: Abdomen soft, non-tender, nondistended. Normoactive bowel sounds x4. MUSCULOSKELETAL: No obvious deformities. Extremities without clubbing, cyanosis , or edema. NEUROLOGICAL: Awake and alert. No obvious cranial nerve deficits. Moving all extremities spontaneously. Normal speech. - Urinary Catheter Management Indwelling Temp Sensing Catheter Cath placed during this visit: yes, but has since been removed by the nurse Reason for continuing: Decision to DC catheter Insertion date: 01/14/18 Insertion time: 22:00 Removal date: 01/21/18 Removal time: 18:00 Straight Cath placed during this visit: yes, but has since been removed by the nurse Reason for continuing: Acute urinary retention Insertion date: 03/16/18 Insertion time: 00:50 Removal date: 03/01/18 Removal time: 23:30 <Smiley Barth - Last Filed: 03/20/18 09:53> Vital signs: Vital Signs 03/19/18 20:00 03/19/18 20:32 03/20/18 00:00 Temperature 97.8 F 98.4 F Pulse Rate 92 H 80 Respiratory Rate 19 Blood Pressure 123/62 118/71 Pulse Oximetry 95 95 96 03/20/18 04:00 03/20/18 08:00 Temperature 98.3 F Pulse Rate 70 69 Respiratory Rate 20 Blood Pressure 115/69 Pulse Oximetry 95 Intake & Output 03/19/18 03/20/18 03/20/18 18:59 06:59 18:59 Output Total 1999 0 / 0 300 / 300 Balance -1999 0 / 0 -300 / -300 Weight 95.6 kg Output: Urine 0 / 0 300 / 300 Hemodialysis Amount 1999 Other: # Voids 0 # Incontinent Voids 0 Date of Last Bowel Movement 03/18/18 03/18/18 03/18/18 - Urinary Catheter Management Indwelling Temp Sensing Catheter Cath placed during this visit: no Straight Cath placed during this visit: no <Brianna Blevins - Last Filed: 03/20/18 18:28> Assessment and Plan - Assessment (1) Acute renal failure Code(s): N17.9 - Acute kidney failure, unspecified Status: Acute Plan: Remains dialysis dependent at this time. 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 Medications should be adjusted for the patient's estimated GFR if clinically indicated. Avoid agents with significant potential for nephrotoxicity possible including NSAIDs for analgesia, iodine contrast agents. Gadolinium is contraindicated if the GFR is below 30. Monitor UOP and electrolytes for renal recovery. Continue Phoslo Hemodialysis yesterday tolerated well with removal of 2 liters of fluid Hemodialysis planned for tomorrow will remove fluid as tolerated. Labs with hemodialysis tomorrow. (2) Anemia Code(s): D64.9 - Anemia, unspecified Status: Acute Qualifiers: Anemia type: due to chronic kidney disease Plan: Epogen with dialysis. HGB stable (3) Hypertension Code(s): I10 - Essential (primary) hypertension Status: Acute Plan: Well controlled, will monitor. (4) Diabetes Code(s): E11.9 - Type 2 diabetes mellitus without complications Status: Acute Plan: Maintain blood sugars between 140 mg /dl to 180 mg/dl while hospitalized. Well controlled. <Smiley Barth - Last Filed: 03/20/18 09:53> - Assessment (1) Acute renal failure Code(s): N17.9 - Acute kidney failure, unspecified Status: Acute Plan: Patient seen and examined, agree with above. Creatinine remain elevated, HD done yesterday. (2) Anemia Code(s): D64.9 - Anemia, unspecified Status: Acute Qualifiers: Anemia type: due to chronic kidney disease (3) Hypertension Code(s): I10 - Essential (primary) hypertension Status: Acute (4) Diabetes Code(s): E11.9 - Type 2 diabetes mellitus without complications Status: Acute <Brianna Blevins - Last Filed: 03/20/18 18:28>
--- NOTE | 2018-03-20 11:02 | P.PN ---
Subjective Interval history: Follow-up for ESRD on HD, UTI, urinary retention, constipation. The patient reports feeling well today. He denies any fevers/chills or urinary complaints. He is voiding spontaneously. He had a large bowel movement on 03/18. He is tolerating oral intake. Denies any chest pain or shortness of breath. Denies any other medical complaints at this time. Physical Exam Vital signs: Vital Signs 03/19/18 11:45 03/19/18 20:00 03/19/18 20:32 Temperature 97.9 F 97.8 F Pulse Rate 70 92 H Respiratory Rate 20 Blood Pressure 109/65 123/62 Pulse Oximetry 94 L 95 95 03/20/18 00:00 03/20/18 04:00 Temperature 98.4 F 98.3 F Pulse Rate 80 70 Respiratory Rate 19 20 Blood Pressure 118/71 115/69 Pulse Oximetry 96 95 Intake & Output 03/19/18 03/20/18 03/20/18 18:59 06:59 18:59 Output Total 1999 0 / 0 300 / 300 Balance -1999 0 / 0 -300 / -300 Weight 95.6 kg Output: Urine 0 / 0 300 / 300 Hemodialysis Amount 1999 Other: # Voids 0 # Incontinent Voids 0 Date of Last Bowel Movement 03/18/18 03/18/18 Narrative: GENERAL: Well-nourished, well-developed middle-aged male patient in [facility]. SKIN: Warm and dry. No rash. Right anterior chest with dialysis catheter, no surrounding erythema. HEENT: Normocephalic. Atraumatic. Mucous membranes pink and moist. CARDIOVASCULAR: Regular rate and rhythm. RESPIRATORY: No accessory muscle use. Clear to auscultation. Breath sounds equal bilaterally. GASTROINTESTINAL: Abdomen soft, non-tender, nondistended. Normoactive bowel sounds x4. MUSCULOSKELETAL: No obvious deformities. Extremities without clubbing, cyanosis , or edema. NEUROLOGICAL: Awake and alert. No obvious cranial nerve deficits. Moving all extremities spontaneously. Normal speech. - Urinary Catheter Management Indwelling Temp Sensing Catheter Cath placed during this visit: yes, but has since been removed by the nurse Reason for continuing: Decision to DC catheter Insertion date: 01/14/18 Insertion time: 22:00 Removal date: 01/21/18 Removal time: 18:00 Straight Cath placed during this visit: yes, but has since been removed by the nurse Reason for continuing: Acute urinary retention Insertion date: 03/16/18 Insertion time: 00:50 Removal date: 03/01/18 Removal time: 23:30 Results - Labs CBC & Chem 7: 03/19/18 09:52 03/19/18 09:52 Laboratory Results - last 24 hr 03/19/18 03/19/18 03/19/18 09:52 12:01 21:03 POC Glucose 203 H 146 H Phosphorus 4.2 - Procedures Left IJ HD tunneled cath placed 02/08/18 by IR Assessment and Plan - Assessment (1) Gross hematuria Code(s): R31.0 - Gross hematuria Status: Acute Onset Date: ~03/10/18 - Plan 62-year-old white male who was admitted with cardiogenic shock and acute respiratory failure requiring CPR and epinephrine in the field, after being found down at home and being witnessed to possibly have undergone seizure-like activity. Intubation was attempted in the field but were unable to do so, patient was ultimately intubated in the hospital, started on pressors, placed in the ICU on mechanical ventilation. Found to have bilateral pneumothoraces with chest tubes placed, had developed some pneumoperitoneum which surgically deemed might have been a leak from his chest tubes as opposed to an acute surgical abdomen. Patient was started on antibiotics empirically for possible aspiration pneumonia but was ultimately discontinued off of them by infectious disease. Developed rhabdomyolysis with worsening acute renal failure which became sustained, with the patient now undergoing dialysis. Ultimately was discontinued off pressors, cardiology deferred heart cath due to renal failure. Patient had difficulty following commands after he was discontinued off of sedation and after extubation. Had an MRI done on 01/17 which showed no acute findings, only an older right parietal CVA. EEG was done which was unremarkable. End-stage renal disease -Continue MWF hemodialysis. -Nephrology following. Patient will likely need permanent dialysis. 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 -Appreciate nephrology recommendations UTI with Urinary Retention -Patient with episode of urinary retention overnight 03/16, s/p straight cath -UA remarkable for large leuks, WBCs, bacteria -Bladder scan prn, straight cath if > 400cc or if patient symptomatic -Started on antibiotics with IV doxycycline x7days, changed to po on 03/18 -Urine culture with Viridans streptococci -Strain urine to rule out stones due to reported sediment vs "sand" appearance in urine -patient urinating spontaneously, no further retention -antibiotics to be completed on 03/23 Anxiety and agitated behaviors; questionable decision-making ability -Psychiatry consulted; Patient has decision-making capacity to participate medical decisions at this moment. 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 Possible anoxic brain injury -Neurology consulted and following -PT/OT/ST -Ok to get out of bed per Neurology with assistance Dysphagia related to encephalopathy -ST rec mechanical soft, thin liquid diet Possible seizure -Continue Keppra -EEG was negative NSTEMI -Troponins 0.52, 1.89, 2.37 -Cardiology consulted, recommended conservative medical management -Continue ASA, Coreg, Isosorbide, amlodipine and atorvastatin Bilateral pneumothoraces - stable -Chest tube removed 01/28/18 Pneumomediastinum Pneumoperitoneum with right retroperitoneal gas around the right kidney -Likely secondary to bilateral pneumothoraces with no surgical intervention warranted per general surgery Acute respiratory failure -Continue supplemental O2 PRN -Pulmonary following -O2 sat currently stable on room air Cirrhosis -Likely secondary to alcohol abuse -Continue BB Type II diabetes mellitus, uncontrolled ? -Not needing sliding scale coverage; frequently refusing 5 units Levemir at night -We will stop insulin for now; monitor daily blood glucose for need to restart Hypothyroidism -Continue Synthroid Normocytic anemia - stable -S/p PRBC transfusion -Epogen with dialysis MDM: self Code: DNR GI ppx: Protonix PO DVT ppx: Heparin SQ Discussed with: RN, patient, CM Dispo: awaiting placement once cleared by nephrology. Palliative care also following. Appreciate specialists assistance. Discharge Planning: Patient has remained dialysis dependent. Case management is aware of the possible need for dialysis. No payor source. Will need placement.
[2018-03-20] MEDS: QUEtiapine 25 MG Tablet PO SCH (21:44)
[2018-03-20] MEDS: oxyCODONE/Acetaminophen 10/325 Tablet PO PRN (21:49)
[2018-03-21] MEDS: Oral Hygiene Kit OROPHARYNG SCH ×2 (01:05→03:25)
[2018-03-21 05:45] LABS: Baso # (Auto) 0.1 th/mm3 (0.0-0.2); Baso % (Auto) 1.3 % (0.0-2.0); Eos # (Auto) 0.4 th/mm3 (0.0-0.4); Eos % (Auto) 5.4 % (0.0-4.0); Hematocrit 34.1 % (39.0-51.0); Lymph # (Auto) 1.9 th/mm3 (1.0-4.8); Lymph % (Auto) 26.1 % (9.0-44.0); Mean Corpuscular HGB Conc 32.3 % (32.0-36.0); Mean Corpuscular Volume 86.5 fL (80.0-100.0); Mean Platelet Volume 7.7 fL (7.0-11.0); Mono # (Auto) 0.6 th/mm3 (0.0-0.9); Mono % (Auto) 7.7 % (0.0-8.0); Neut # (Auto) 4.3 th/mm3 (1.8-7.7); Neut % (Auto) 59.5 % (16.0-70.0); Platelet Count 288 th/mm3 (150-450); Red Blood Count 3.94 mil/mm3 (4.50-5.90); Red Cell Distribution Width 16.1 % (11.6-17.2); White Blood Count 7.2 th/mm3 (4.0-11.0)
[2018-03-21 06:06] LABS: Albumin 2.8 g/dL (3.4-5.0); Calcium 9.4 mg/dL (8.5-10.1); Phosphorus 2.9 mg/dL (2.5-4.9); Potassium 4.1 meq/L (3.5-5.1)
[2018-03-21] MEDS: Levothyroxine 88 MCG Tablet PO SCH (06:46)
[2018-03-21] MEDS ORDERED: oxyCODONE/Acetaminophen 10/325 Tablet PO PRN (09:13)
--- NOTE | 2018-03-21 11:17 | P.PNNP ---
Subjective Interval history: Seen during hemodialysis tolerating well. Denies any shortness of breath, chest pain, nausea, or vomiting. Creatinine remains elevated. <Smiley Barth - Last Filed: 03/21/18 11:13> Physical Exam Vital signs: Vital Signs 03/20/18 12:00 03/20/18 16:00 03/20/18 20:00 Temperature 98.0 F 97.7 F 97.5 F L Pulse Rate 78 78 89 Respiratory Rate 20 20 17 Blood Pressure 110/76 109/73 117/74 Pulse Oximetry 96 95 94 L 03/20/18 23:20 03/21/18 00:00 03/21/18 04:00 Temperature 98.0 F 97.3 F L Pulse Rate 88 66 Respiratory Rate 17 Blood Pressure 101/72 115/72 Pulse Oximetry 95 94 L 03/21/18 07:15 03/21/18 08:00 Temperature 97.0 F L Pulse Rate 76 Respiratory Rate 20 Blood Pressure 91/64 L Pulse Oximetry 94 L 95 Intake & Output 03/20/18 03/21/18 03/21/18 18:59 06:59 18:59 Output Total 300 / 300 0 / 0 Balance -300 / -300 0 / 0 Weight 95.6 kg Output: Urine 300 / 300 0 / 0 Other: # Voids 0 Date of Last Bowel Movement 03/18/18 03/19/18 Narrative: GENERAL: Well-nourished, well-developed middle-aged male patient in [facility]. SKIN: Warm and dry. No rash. Right anterior chest with dialysis catheter, no surrounding erythema. HEENT: Normocephalic. Atraumatic. Mucous membranes pink and moist. CARDIOVASCULAR: Regular rate and rhythm. RESPIRATORY: No accessory muscle use. Clear to auscultation. Breath sounds equal bilaterally. GASTROINTESTINAL: Abdomen soft, non-tender, nondistended. Normoactive bowel sounds x4. MUSCULOSKELETAL: No obvious deformities. Extremities without clubbing, cyanosis , or edema. NEUROLOGICAL: Awake and alert. No obvious cranial nerve deficits. Moving all extremities spontaneously. Normal speech. - Urinary Catheter Management Indwelling Temp Sensing Catheter Cath placed during this visit: yes, but has since been removed by the nurse Reason for continuing: Decision to DC catheter Insertion date: 01/14/18 Insertion time: 22:00 Removal date: 01/21/18 Removal time: 18:00 Straight Cath placed during this visit: yes, but has since been removed by the nurse Reason for continuing: Acute urinary retention Insertion date: 03/16/18 Insertion time: 00:50 Removal date: 03/01/18 Removal time: 23:30 <Smiley Barth - Last Filed: 03/21/18 11:13> Vital signs: Vital Signs 03/20/18 23:20 03/21/18 00:00 03/21/18 04:00 Temperature 98.0 F 97.3 F L Pulse Rate 88 66 Respiratory Rate 19 17 Blood Pressure 101/72 115/72 Pulse Oximetry 95 94 L 03/21/18 07:15 03/21/18 08:00 03/21/18 13:00 Temperature 97.0 F L 98.6 F Pulse Rate 76 70 78 Respiratory Rate 20 20 Blood Pressure 91/64 L 108/64 Pulse Oximetry 94 L 95 97 03/21/18 16:00 Temperature 98.7 F Pulse Rate 98 H Respiratory Rate 20 Blood Pressure 100/70 Pulse Oximetry 94 L Intake & Output 03/21/18 03/21/18 03/22/18 06:59 18:59 06:59 Output Total 0 / 0 4400 / 4400 Balance 0 / 0 -4400 / -4400 Weight 95.6 kg Output: Urine 0 / 0 400 / 400 Pleural Fluid 0 / 0 Hemodialysis Amount 4000 / 4000 Other: # Voids 0 1 # Incontinent Voids 0 # Urine Diapers 1 Date of Last Bowel Movement 03/19/18 03/19/18 - Urinary Catheter Management Indwelling Temp Sensing Catheter Cath placed during this visit: no Straight Cath placed during this visit: no <Brianna Blevins - Last Filed: 03/21/18 20:55> Assessment and Plan - Assessment (1) Acute renal failure Code(s): N17.9 - Acute kidney failure, unspecified Status: Acute Plan: Remains dialysis dependent at this time. 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 Medications should be adjusted for the patient's estimated GFR if clinically indicated. Avoid agents with significant potential for nephrotoxicity possible including NSAIDs for analgesia, iodine contrast agents. Gadolinium is contraindicated if the GFR is below 30. Monitor UOP and electrolytes for renal recovery. Epogen with dialysis. Seen during hemodialysis, 2 K bath plan to remove 3 liters of fluid (2) Anemia Code(s): D64.9 - Anemia, unspecified Status: Acute Qualifiers: Anemia type: due to chronic kidney disease Plan: Epogen with dialysis. HGB stable (3) Hypertension Code(s): I10 - Essential (primary) hypertension Status: Acute Plan: Well controlled, will monitor. (4) Diabetes Code(s): E11.9 - Type 2 diabetes mellitus without complications Status: Acute Plan: Maintain blood sugars between 140 mg /dl to 180 mg/dl while hospitalized. Well controlled. <Smiley Barth - Last Filed: 03/21/18 11:13> - Assessment (1) Acute renal failure Code(s): N17.9 - Acute kidney failure, unspecified Status: Acute Plan: Patient seen and examined, agree with above. Not much improvement in the renal function. Will get Renal U/S as he had Hydronephrosis on left side on CT scan before. HD today. (2) Anemia Code(s): D64.9 - Anemia, unspecified Status: Acute Qualifiers: Anemia type: due to chronic kidney disease (3) Hypertension Code(s): I10 - Essential (primary) hypertension Status: Acute (4) Diabetes Code(s): E11.9 - Type 2 diabetes mellitus without complications Status: Acute <Brianna Blevins - Last Filed: 03/21/18 20:55>
--- NOTE | 2018-03-21 11:56 | P.PNIM ---
Subjective Interval history: Patient seen post dialysis. Drowsy but does awake easily. No new complaints. No fever or chills. No nausea vomiting or diarrhea. Physical Exam Vital signs: Vital Signs 03/20/18 12:00 03/20/18 16:00 03/20/18 20:00 Temperature 98.0 F 97.7 F 97.5 F L Pulse Rate 78 78 89 Respiratory Rate 20 20 17 Blood Pressure 110/76 109/73 117/74 Pulse Oximetry 96 95 94 L 03/20/18 23:20 03/21/18 00:00 03/21/18 04:00 Temperature 98.0 F 97.3 F L Pulse Rate 88 66 Respiratory Rate 19 19 17 Blood Pressure 101/72 115/72 Pulse Oximetry 95 94 L 03/21/18 07:15 03/21/18 08:00 Temperature 97.0 F L Pulse Rate 76 Respiratory Rate 20 Blood Pressure 91/64 L Pulse Oximetry 94 L 95 Intake & Output 03/20/18 03/21/18 03/21/18 18:59 06:59 18:59 Output Total 300 / 300 0 / 0 Balance -300 / -300 0 / 0 Weight 95.6 kg Output: Urine 300 / 300 0 / 0 Other: # Voids 0 Date of Last Bowel Movement 03/18/18 03/19/18 Narrative: GENERAL: Well-nourished, well-developed adult male in no obvious distress. SKIN: Warm and dry. Dialysis catheter in right chest wall -no erythema or drainage. HEAD: Atraumatic. Normocephalic. CARDIOVASCULAR: Regular rate and rhythm. RESPIRATORY: No accessory muscle use. Clear to auscultation. Breath sounds equal bilaterally. GASTROINTESTINAL: Abdomen soft, non-tender, non-distended. Positive bowel sounds. MUSCULOSKELETAL: Extremities without clubbing, cyanosis, or edema. No obvious deformities. NEUROLOGICAL: Awake and alert. No obvious cranial nerve deficits. Motor grossly within normal limits. Normal speech. Urinary Catheter Management Indwelling Temp Sensing Catheter: Cath placed during this visit: yes, but has since been removed by the nurse Reason for continuing: Decision to DC catheter Insertion date: 01/14/18 Insertion time: 22:00 Removal date: 01/21/18 Removal time: 18:00 Straight: Cath placed during this visit: yes, but has since been removed by the nurse Reason for continuing: Acute urinary retention Insertion date: 03/16/18 Insertion time: 00:50 Removal date: 03/01/18 Removal time: 23:30 Results Labs CBC & Chem 7: 03/21/18 05:07 03/21/18 05:07 Procedures Procedures: Left IJ HD tunneled cath placed 02/08/18 by IR Assessment and Plan (1) Gross hematuria: Code(s): R31.0 - Gross hematuria Status: Acute Onset Date: ~03/10/18 Plan 62-year-old white male who was admitted with cardiogenic shock and acute respiratory failure requiring CPR and epinephrine in the field, after being found down at home and being witnessed to possibly have undergone seizure-like activity. Intubation was attempted in the field but were unable to do so, patient was ultimately intubated in the hospital, started on pressors, placed in the ICU on mechanical ventilation. Found to have bilateral pneumothoraces with chest tubes placed, had developed some pneumoperitoneum which surgically deemed might have been a leak from his chest tubes as opposed to an acute surgical abdomen. Patient was started on antibiotics empirically for possible aspiration pneumonia but was ultimately discontinued off of them by infectious disease. Developed rhabdomyolysis with worsening acute renal failure which became sustained, with the patient now undergoing dialysis. Ultimately was discontinued off pressors, cardiology deferred heart cath due to renal failure. Patient had difficulty following commands after he was discontinued off of sedation and after extubation. Had an MRI done on 01/17 which showed no acute findings, only an older right parietal CVA. EEG was done which was unremarkable. End-stage renal disease -Continue MWF hemodialysis. -Nephrology following. Patient will likely need permanent dialysis. 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 UTI with Urinary Retention -Patient with episode of urinary retention overnight 03/16, s/p straight cath -UA remarkable for large leuks, WBCs, bacteria -Bladder scan prn, straight cath if > 400cc or if patient symptomatic -Started on antibiotics with IV doxycycline x7days, changed to po on 03/18 -Urine culture with Viridans streptococci -Strain urine to rule out stones due to reported sediment vs "sand" appearance in urine -patient urinating spontaneously, no further retention -antibiotics to be completed on 1/19 Anxiety and agitated behaviors; questionable decision-making ability -Psychiatry consulted; Patient has decision-making capacity to participate medical decisions at this moment. 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 Possible anoxic brain injury -Neurology consulted and following -PT/OT/ST -Ok to get out of bed per Neurology with assistance Dysphagia related to encephalopathy -ST rec mechanical soft, thin liquid diet Possible seizure -Continue Keppra -EEG was negative NSTEMI -Troponins 0.52, 1.89, 2.37 -Cardiology consulted, recommended conservative medical management -Continue ASA, Coreg, Isosorbide, amlodipine and atorvastatin Bilateral pneumothoraces - stable -Chest tube removed 01/28/18 Pneumomediastinum Pneumoperitoneum with right retroperitoneal gas around the right kidney -Likely secondary to bilateral pneumothoraces with no surgical intervention warranted per general surgery Acute respiratory failure -Continue supplemental O2 PRN -Pulmonary following -O2 sat currently stable on room air Cirrhosis -Likely secondary to alcohol abuse -Continue BB Type II diabetes mellitus, uncontrolled ? -Not needing sliding scale coverage; frequently refusing 5 units Levemir at night -We will stop insulin for now; monitor daily blood glucose for need to restart Hypothyroidism -Continue Synthroid Normocytic anemia - stable -S/p PRBC transfusion -Epogen with dialysis MDM: self Code: DNR GI ppx: Protonix PO DVT ppx: Heparin SQ Discussed with: RN, patient, CM Dispo: awaiting placement once cleared by nephrology. Palliative care also following. Appreciate specialists assistance. Discharge Planning: Patient has remained dialysis dependent. Case management is aware of the possible need for dialysis. No payor source. Will need placement. Progress Note: Quality VTE Deep Vein Thrombosis/Pulmonary Embolism Present on Admission: No
[2018-03-21] MEDS: Heparin 10,000 UNITS/10 ML Vial (for IV use) OTHER PRN (11:57)
[2018-03-21] MEDS: amLODIPine 5 MG Tablet PO SCH (13:19)
[2018-03-21] MEDS: Calcium Acetate 667 MG Capsule PO SCH ×3 (13:19→18:17)
[2018-03-21] MEDS: Folic Acid 1 MG Tablet PO SCH (13:20)
[2018-03-21] MEDS: Senna/Docusate Sodium 8.6/50 MG Tablet PO SCH ×2 (13:20→20:36)
[2018-03-21] MEDS: Carvedilol 6.25 MG Tablet PO SCH ×2 (13:20→20:36)
[2018-03-21] MEDS: levETIRAcetam 500 MG Tablet PO SCH ×2 (13:23→20:36)
--- NOTE | 2018-03-21 16:04 | US ---
EXAM DATE: 03/21/2018 4:00 PM EST AGE/SEX: 62 years / Male INDICATIONS: Increased Bun and Creatinine. Questionable left hydronephrosis. CLINICAL DATA: This is the patient's subsequent encounter. Patient reports that signs and symptoms h ave been present for 2 weeks and indicates a pain score of 1/10. MEDICAL/SURGICAL HISTORY: . Anxiety. Diabetic. ETOH. HTN> None. COMPARISON: [facility] [place], US KIDNEY/RENAL/BLADDER, 03/11/2018. . MEASUREMENTS: Right Kidney:__8.8 x 5.8 x 5.2 cm Left Kidney:__10.4 x 5.5 x 5.8 cm FINDINGS: Right Kidney: Increased echogenicity. No mass or hydronephrosis. Left Kidney: Increased echogenicity. No mass or hydronephrosis. Bladder: Within normal limits given the degree of distension. Other: None. CONCLUSION: Negative renal sonogram. Electronically signed by: Dionisio Branham MD Board Certified Radiologist 03/21/2018 4:03 PM EST
[2018-03-21] MEDS: QUEtiapine 25 MG Tablet PO SCH (20:36)
[2018-03-22] MEDS: Levothyroxine 88 MCG Tablet PO SCH (06:08)
[2018-03-22] MEDS: levETIRAcetam 500 MG Tablet PO SCH ×2 (09:52→21:53)
[2018-03-22] MEDS: amLODIPine 5 MG Tablet PO SCH ×2 (09:52→09:55)
[2018-03-22] MEDS: Carvedilol 6.25 MG Tablet PO SCH ×2 (09:52→21:53)
[2018-03-22] MEDS: Folic Acid 1 MG Tablet PO SCH (09:52)
[2018-03-22] MEDS: Senna/Docusate Sodium 8.6/50 MG Tablet PO SCH ×2 (09:53→21:53)
[2018-03-22] MEDS: Calcium Acetate 667 MG Capsule PO SCH ×3 (09:53→17:25)
--- NOTE | 2018-03-22 13:02 | P.PNNP ---
Subjective Interval history: Patient in good spirits with no acute complaints. Denies any shortness of breath , chest pain, nausea, or vomiting. Hemodialysis yesterday tolerated well. <Smiley Barth - Last Filed: 03/22/18 12:57> Physical Exam Vital signs: Vital Signs 03/21/18 13:00 03/21/18 16:00 03/21/18 20:00 Temperature 98.6 F 98.7 F 97.9 F Pulse Rate 78 98 H 90 Respiratory Rate 20 20 20 Blood Pressure 108/64 100/70 112/82 Pulse Oximetry 97 94 L 95 03/21/18 23:35 03/22/18 00:00 03/22/18 06:08 Temperature 98.0 F Pulse Rate 72 73 69 Respiratory Rate 18 Blood Pressure 122/77 126/81 Pulse Oximetry 95 03/22/18 07:05 03/22/18 10:15 Temperature 97.7 F Pulse Rate 73 Respiratory Rate 12 Blood Pressure 101/66 Pulse Oximetry 95 94 L Intake & Output 03/21/18 03/22/18 03/22/18 18:59 06:59 18:59 Output Total 4400 / 4400 Balance -4400 / -4400 Output: Urine 400 / 400 Pleural Fluid 0 / 0 Hemodialysis Amount 4000 / 4000 Other: # Voids 1 2 # Incontinent Voids 0 # Urine Diapers 1 Date of Last Bowel Movement 03/19/18 03/21/18 Narrative: GENERAL: Well-nourished, well-developed middle-aged male patient in [facility]. SKIN: Warm and dry. No rash. Right anterior chest with dialysis catheter, no surrounding erythema. HEENT: Normocephalic. Atraumatic. Mucous membranes pink and moist. CARDIOVASCULAR: Regular rate and rhythm. RESPIRATORY: No accessory muscle use. Clear to auscultation. Breath sounds equal bilaterally. GASTROINTESTINAL: Abdomen soft, non-tender, nondistended. Normoactive bowel sounds x4. MUSCULOSKELETAL: No obvious deformities. Extremities without clubbing, cyanosis , or edema. NEUROLOGICAL: Awake and alert. No obvious cranial nerve deficits. Moving all extremities spontaneously. Normal speech. - Urinary Catheter Management Indwelling Temp Sensing Catheter Cath placed during this visit: yes, but has since been removed by the nurse Reason for continuing: Decision to DC catheter Insertion date: 01/14/18 Insertion time: 22:00 Removal date: 01/21/18 Removal time: 18:00 Straight Cath placed during this visit: yes, but has since been removed by the nurse Reason for continuing: Acute urinary retention Insertion date: 03/16/18 Insertion time: 00:50 Removal date: 03/01/18 Removal time: 23:30 <Smiley Barth - Last Filed: 03/22/18 12:57> Vital signs: Vital Signs 03/21/18 23:35 03/22/18 00:00 03/22/18 06:08 Temperature 98.0 F Pulse Rate 72 73 69 Respiratory Rate 18 Blood Pressure 122/77 126/81 Pulse Oximetry 95 03/22/18 07:05 03/22/18 08:00 03/22/18 10:15 Temperature 97.7 F Pulse Rate 73 77 Respiratory Rate 12 Blood Pressure 101/66 Pulse Oximetry 95 94 L 03/22/18 12:00 03/22/18 16:00 03/22/18 20:00 Temperature 98.1 F 97.6 F 97.7 F Pulse Rate 80 79 71 Respiratory Rate 20 20 20 Blood Pressure 98/72 L 123/81 137/76 Pulse Oximetry 96 98 94 L Intake & Output 03/22/18 03/22/18 03/23/18 06:59 18:59 06:59 Output Total 0 / 0 Balance 0 / 0 Output: Pleural Fluid 0 / 0 Other: # Voids 2 Date of Last Bowel Movement 03/21/18 03/22/18 - Urinary Catheter Management Indwelling Temp Sensing Catheter Cath placed during this visit: no Straight Cath placed during this visit: no <Brianna Blevins - Last Filed: 03/22/18 22:13> Assessment and Plan - Assessment (1) Acute renal failure Code(s): N17.9 - Acute kidney failure, unspecified Status: Acute Plan: Remains dialysis dependent at this time. 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 Medications should be adjusted for the patient's estimated GFR if clinically indicated. Avoid agents with significant potential for nephrotoxicity possible including NSAIDs for analgesia, iodine contrast agents. Gadolinium is contraindicated if the GFR is below 30. Monitor UOP and electrolytes for renal recovery. Epogen with dialysis. Hemodialysis yesterday tolerated well with removal of 4 liters of fluid Creatinine has remained elevated, has had hydronephrosis on CT scan before, renal ultrasound with no hydronephrosis. HD tomorrow. (2) Anemia Code(s): D64.9 - Anemia, unspecified Status: Acute Qualifiers: Anemia type: due to chronic kidney disease Plan: Epogen with dialysis. HGB stable (3) Hypertension Code(s): I10 - Essential (primary) hypertension Status: Acute Plan: Well controlled, will monitor. (4) Diabetes Code(s): E11.9 - Type 2 diabetes mellitus without complications Status: Acute Plan: Maintain blood sugars between 140 mg /dl to 180 mg/dl while hospitalized. Well controlled. <Smiley Barth - Last Filed: 03/22/18 12:57> - Assessment (1) Acute renal failure Code(s): N17.9 - Acute kidney failure, unspecified Status: Acute Plan: Patient seen and examined, agree with above. No improvement in the renal function so far. D/W the patient and on the phone. BRYAN to continue for now. (2) Anemia Code(s): D64.9 - Anemia, unspecified Status: Acute Qualifiers: Anemia type: due to chronic kidney disease (3) Hypertension Code(s): I10 - Essential (primary) hypertension Status: Acute (4) Diabetes Code(s): E11.9 - Type 2 diabetes mellitus without complications Status: Acute <Brianna Blevins - Last Filed: 03/22/18 22:13>
--- NOTE | 2018-03-22 14:51 | P.PNIM ---
Subjective Interval history: Patient seen lying in bed. Sleeping but wakes easily. Says he is cold but otherwise has no complaints. Tells me that he is urinating fairly regularly and that is been mostly normal. Physical Exam Vital signs: Vital Signs 03/21/18 16:00 03/21/18 20:00 03/21/18 23:35 Temperature 98.7 F 97.9 F 98.0 F Pulse Rate 98 H 90 72 Respiratory Rate 20 20 18 Blood Pressure 100/70 112/82 122/77 Pulse Oximetry 94 L 95 95 03/22/18 00:00 03/22/18 06:08 03/22/18 07:05 Temperature 97.7 F Pulse Rate 73 69 73 Respiratory Rate 12 Blood Pressure 126/81 101/66 Pulse Oximetry 95 03/22/18 10:15 Temperature Pulse Rate Respiratory Rate Blood Pressure Pulse Oximetry 94 L Intake & Output 03/21/18 03/22/18 03/22/18 18:59 06:59 18:59 Output Total 4400 / 4400 Balance -4400 / -4400 Output: Urine 400 / 400 Pleural Fluid 0 / 0 Hemodialysis Amount 4000 / 4000 Other: # Voids 1 2 # Incontinent Voids 0 # Urine Diapers 1 Date of Last Bowel Movement 03/19/18 03/21/18 Narrative: GENERAL: Well-nourished, well-developed adult male in no obvious distress. SKIN: Warm and dry. Dialysis catheter in right chest wall -no erythema or drainage. HEAD: Atraumatic. Normocephalic. CARDIOVASCULAR: Regular rate and rhythm. RESPIRATORY: No accessory muscle use. Clear to auscultation. Breath sounds equal bilaterally. GASTROINTESTINAL: Abdomen soft, non-tender, non-distended. Positive bowel sounds. MUSCULOSKELETAL: Extremities without clubbing, cyanosis, or edema. No obvious deformities. NEUROLOGICAL: Awake and alert. No obvious cranial nerve deficits. Motor grossly within normal limits. Normal speech. Urinary Catheter Management Indwelling Temp Sensing Catheter: Cath placed during this visit: yes, but has since been removed by the nurse Reason for continuing: Decision to DC catheter Insertion date: 01/14/18 Insertion time: 22:00 Removal date: 01/21/18 Removal time: 18:00 Straight: Cath placed during this visit: yes, but has since been removed by the nurse Reason for continuing: Acute urinary retention Insertion date: 03/16/18 Insertion time: 00:50 Removal date: 03/01/18 Removal time: 23:30 Results Labs CBC & Chem 7: 03/21/18 05:07 03/21/18 05:07 Imaging Imaging: Impressions Abdomen/Bladder Ultrasound 03/21/18 00:00 CONCLUSION: Negative renal sonogram. Procedures Procedures: Left IJ HD tunneled cath placed 02/08/18 by IR Assessment and Plan (1) Gross hematuria: Code(s): R31.0 - Gross hematuria Status: Acute Onset Date: ~03/10/18 Plan 62-year-old white male who was admitted with cardiogenic shock and acute respiratory failure requiring CPR and epinephrine in the field, after being found down at home and being witnessed to possibly have undergone seizure-like activity. Intubation was attempted in the field but were unable to do so, patient was ultimately intubated in the hospital, started on pressors, placed in the ICU on mechanical ventilation. Found to have bilateral pneumothoraces with chest tubes placed, had developed some pneumoperitoneum which surgically deemed might have been a leak from his chest tubes as opposed to an acute surgical abdomen. Patient was started on antibiotics empirically for possible aspiration pneumonia but was ultimately discontinued off of them by infectious disease. Developed rhabdomyolysis with worsening acute renal failure which became sustained, with the patient now undergoing dialysis. Ultimately was discontinued off pressors, cardiology deferred heart cath due to renal failure. Patient had difficulty following commands after he was discontinued off of sedation and after extubation. Had an MRI done on 01/17 which showed no acute findings, only an older right parietal CVA. EEG was done which was unremarkable. End-stage renal disease -Continue MWF hemodialysis. -Nephrology following. Patient will likely need permanent dialysis. 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 UTI with Urinary Retention -Patient with episode of urinary retention overnight 03/16, s/p straight cath -UA remarkable for large leuks, WBCs, bacteria -Bladder scan prn, straight cath if > 400cc or if patient symptomatic -Started on antibiotics with IV doxycycline x7days, changed to po on 03/18 -Urine culture with Viridans streptococci -Strain urine to rule out stones due to reported sediment vs "sand" appearance in urine -patient urinating spontaneously, no further retention -antibiotics (doxy) to be completed on 03/23; remains afebrile; WBCs WNL Anxiety and agitated behaviors; questionable decision-making ability -Psychiatry consulted; Patient has decision-making capacity to participate medical decisions at this moment. 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 Possible anoxic brain injury -Neurology consulted and following -PT/OT/ST -Ok to get out of bed per Neurology with assistance Dysphagia related to encephalopathy -ST rec mechanical soft, thin liquid diet Possible seizure -Continue Keppra -EEG was negative NSTEMI -Troponins 0.52, 1.89, 2.37 -Cardiology consulted, recommended conservative medical management -Continue ASA, Coreg, Isosorbide, amlodipine and atorvastatin Bilateral pneumothoraces - stable -Chest tube removed 01/28/18 Pneumomediastinum Pneumoperitoneum with right retroperitoneal gas around the right kidney -Likely secondary to bilateral pneumothoraces with no surgical intervention warranted per general surgery Acute respiratory failure -Continue supplemental O2 PRN -Pulmonary following -O2 sat currently stable on room air Cirrhosis -Likely secondary to alcohol abuse -Continue BB Type II diabetes mellitus, uncontrolled ? -Not needing sliding scale coverage; frequently refusing 5 units Levemir at night -We will stop insulin for now; monitor daily blood glucose for need to restart Hypothyroidism -Continue Synthroid Normocytic anemia - stable -S/p PRBC transfusion -Epogen with dialysis MDM: self Code: DNR GI ppx: Protonix PO DVT ppx: Heparin SQ Discussed with: RN, patient, CM Dispo: awaiting placement once cleared by nephrology. Palliative care also following. Appreciate specialists assistance. Discharge Planning: Patient has remained dialysis dependent. Case management is aware of the possible need for dialysis. No payor source. Will need placement. Progress Note: Quality VTE Deep Vein Thrombosis/Pulmonary Embolism Present on Admission: No
[2018-03-22] MEDS: QUEtiapine 25 MG Tablet PO SCH (21:54)
[2018-03-23] MEDS: Levothyroxine 88 MCG Tablet PO SCH (06:11)
[2018-03-23] MEDS: Calcium Acetate 667 MG Capsule PO SCH ×3 (08:21→17:10)
--- NOTE | 2018-03-23 09:29 | P.PNNP ---
Subjective Interval history: patient was seen during dialysis. On 3K, UF goal is 3 liters, BFR is 350 ml/ min. Physical Exam Vital signs: Vital Signs 03/22/18 10:15 03/22/18 12:00 03/22/18 16:00 Temperature 98.1 F 97.6 F Pulse Rate 80 79 Respiratory Rate 20 20 Blood Pressure 98/72 L 123/81 Pulse Oximetry 94 L 96 98 03/22/18 20:00 03/23/18 00:00 03/23/18 04:00 Temperature 97.7 F 98.7 F 97.2 F L Pulse Rate 75 81 55 L Respiratory Rate 20 20 18 Blood Pressure 137/76 109/62 137/79 Pulse Oximetry 94 L 96 98 03/23/18 08:00 Temperature 97.4 F L Pulse Rate 60 Respiratory Rate 16 Blood Pressure 138/80 Pulse Oximetry 96 Intake & Output 03/22/18 03/23/18 03/23/18 18:59 06:59 18:59 Intake Total 240 / 240 Output Total 0 / 0 Balance 0 / 0 240 / 240 Weight 95.6 kg Intake: Oral 240 / 240 Output: Pleural Fluid 0 / 0 Other: Date of Last Bowel Movement 03/22/18 03/22/18 Narrative: GENERAL: Well-nourished, well-developed middle-aged male patient in [facility]. SKIN: Warm and dry. No rash. Right anterior chest with dialysis catheter, no surrounding erythema. HEENT: Normocephalic. Atraumatic. Mucous membranes pink and moist. CARDIOVASCULAR: Regular rate and rhythm. RESPIRATORY: No accessory muscle use. Clear to auscultation. Breath sounds equal bilaterally. GASTROINTESTINAL: Abdomen soft, non-tender, nondistended. Normoactive bowel sounds x4. MUSCULOSKELETAL: No obvious deformities. Extremities without clubbing, cyanosis , or edema. NEUROLOGICAL: Awake and alert. No obvious cranial nerve deficits. Moving all extremities spontaneously. Normal speech. - Urinary Catheter Management Indwelling Temp Sensing Catheter Cath placed during this visit: yes, but has since been removed by the nurse Reason for continuing: Decision to DC catheter Insertion date: 01/14/18 Insertion time: 22:00 Removal date: 01/21/18 Removal time: 18:00 Straight Cath placed during this visit: yes, but has since been removed by the nurse Reason for continuing: Acute urinary retention Insertion date: 03/16/18 Insertion time: 00:50 Removal date: 03/01/18 Removal time: 23:30 Assessment and Plan - Assessment (1) Acute renal failure Code(s): N17.9 - Acute kidney failure, unspecified Status: Acute Plan: No improvement in the renal function so far. Continue HD support. (2) Anemia Code(s): D64.9 - Anemia, unspecified Status: Acute Qualifiers: Anemia type: due to chronic kidney disease Plan: Epogen with dialysis. HGB stable (3) Hypertension Code(s): I10 - Essential (primary) hypertension Status: Acute Plan: Well controlled, will monitor. (4) Diabetes Code(s): E11.9 - Type 2 diabetes mellitus without complications Status: Acute Plan: Maintain blood sugars between 140 mg /dl to 180 mg/dl while hospitalized. Well controlled.
[2018-03-23] MEDS: Heparin 10,000 UNITS/10 ML Vial (for IV use) OTHER PRN (10:43)
--- NOTE | 2018-03-23 12:11 | P.PNIM ---
Subjective Interval history: Seen post dialysis. No complaints. Continues to produce a small amount of urine per his report. Denies any further "sand" in urine. Patient's recall of events remains somewhat questionable. Physical Exam Vital signs: Vital Signs 03/22/18 16:00 03/22/18 20:00 03/23/18 00:00 Temperature 97.6 F 97.7 F 98.7 F Pulse Rate 79 75 81 Respiratory Rate 20 20 20 Blood Pressure 123/81 137/76 109/62 Pulse Oximetry 98 94 L 96 03/23/18 04:00 03/23/18 08:00 03/23/18 11:11 Temperature 97.2 F L 97.4 F L Pulse Rate 55 L 63 Respiratory Rate 18 16 Blood Pressure 137/79 138/80 Pulse Oximetry 98 96 96 Intake & Output 03/22/18 03/23/18 03/23/18 18:59 06:59 18:59 Intake Total 240 / 240 Output Total 0 / 0 1999 Balance 0 / 0 -1760 / -1760 Weight 95.6 kg Intake: Oral 240 / 240 Output: Pleural Fluid 0 / 0 Hemodialysis Amount 1999 Other: Date of Last Bowel Movement 03/22/18 03/22/18 Narrative: GENERAL: Well-nourished, well-developed adult male in no obvious distress. SKIN: Warm and dry. Dialysis catheter in right chest wall -no erythema or drainage. HEAD: Atraumatic. Normocephalic. CARDIOVASCULAR: Regular rate and rhythm. RESPIRATORY: No accessory muscle use. Clear to auscultation. Breath sounds equal bilaterally. GASTROINTESTINAL: Abdomen soft, non-tender, non-distended. Positive bowel sounds. MUSCULOSKELETAL: Extremities without clubbing, cyanosis, or edema. No obvious deformities. NEUROLOGICAL: Awake and alert. No obvious cranial nerve deficits. Motor grossly within normal limits. Normal speech. Urinary Catheter Management Indwelling Temp Sensing Catheter: Cath placed during this visit: yes, but has since been removed by the nurse Reason for continuing: Decision to DC catheter Insertion date: 01/14/18 Insertion time: 22:00 Removal date: 01/21/18 Removal time: 18:00 Straight: Cath placed during this visit: yes, but has since been removed by the nurse Reason for continuing: Acute urinary retention Insertion date: 03/16/18 Insertion time: 00:50 Removal date: 03/01/18 Removal time: 23:30 Results Labs CBC & Chem 7: 03/21/18 05:07 03/21/18 05:07 Procedures Procedures: Left IJ HD tunneled cath placed 02/08/18 by IR Assessment and Plan (1) Gross hematuria: Code(s): R31.0 - Gross hematuria Status: Acute Onset Date: ~03/10/18 Plan 62-year-old white male who was admitted with cardiogenic shock and acute respiratory failure requiring CPR and epinephrine in the field, after being found down at home and being witnessed to possibly have undergone seizure-like activity. Intubation was attempted in the field but were unable to do so, patient was ultimately intubated in the hospital, started on pressors, placed in the ICU on mechanical ventilation. Found to have bilateral pneumothoraces with chest tubes placed, had developed some pneumoperitoneum which surgically deemed might have been a leak from his chest tubes as opposed to an acute surgical abdomen. Patient was started on antibiotics empirically for possible aspiration pneumonia but was ultimately discontinued off of them by infectious disease. Developed rhabdomyolysis with worsening acute renal failure which became sustained, with the patient now undergoing dialysis. Ultimately was discontinued off pressors, cardiology deferred heart cath due to renal failure. Patient had difficulty following commands after he was discontinued off of sedation and after extubation. Had an MRI done on 01/17 which showed no acute findings, only an older right parietal CVA. EEG was done which was unremarkable. End-stage renal disease -Continue MWF hemodialysis. -Nephrology following. Patient will likely need permanent dialysis. 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 UTI with Urinary Retention -Patient with episode of urinary retention overnight 03/16, s/p straight cath -UA remarkable for large leuks, WBCs, bacteria -Bladder scan prn, straight cath if > 400cc or if patient symptomatic -Started on antibiotics with IV doxycycline x7days, changed to po on 03/18 -Urine culture with Viridans streptococci -Strain urine to rule out stones due to reported sediment vs "sand" appearance in urine -patient urinating spontaneously, no further retention -antibiotics (doxy) to be completed on 03/23; remains afebrile; WBCs WNL Anxiety and agitated behaviors; questionable decision-making ability -Psychiatry consulted; Patient has decision-making capacity to participate medical decisions at this moment. -Continue patient's seroquel, patient reports previously on 100mg hs, adjusted dose Acute on chronic pain -Pain meds PRN; d/c IV morphine and transition to oral percocet; goal is to wean and DC narcotics -E-forcse reviewed-patient was not on chronic narcotic pain medication prior to admission. 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 Possible anoxic brain injury -Neurology consulted and following -PT/OT/ST -Ok to get out of bed per Neurology with assistance Dysphagia related to encephalopathy -ST rec mechanical soft, thin liquid diet Possible seizure -Continue Keppra -EEG was negative NSTEMI -Troponins 0.52, 1.89, 2.37 -Cardiology consulted, recommended conservative medical management -Continue ASA, Coreg, Isosorbide, amlodipine and atorvastatin Bilateral pneumothoraces - stable -Chest tube removed 01/28/18 Pneumomediastinum Pneumoperitoneum with right retroperitoneal gas around the right kidney -Likely secondary to bilateral pneumothoraces with no surgical intervention warranted per general surgery Acute respiratory failure -Continue supplemental O2 PRN -Pulmonary following -O2 sat currently stable on room air Cirrhosis -Likely secondary to alcohol abuse -Continue BB Type II diabetes mellitus, uncontrolled ? -Not needing sliding scale coverage; frequently refusing 5 units Levemir at night -We will stop insulin for now; monitor daily blood glucose for need to restart Hypothyroidism -Continue Synthroid Normocytic anemia - stable -S/p PRBC transfusion -Epogen with dialysis MDM: self Code: DNR GI ppx: Protonix PO DVT ppx: Heparin SQ Discussed with: RN, patient, CM Dispo: awaiting placement once cleared by nephrology. Palliative care also following. Appreciate specialists assistance. Discharge Planning: Patient has remained dialysis dependent. Case management is aware of the possible need for dialysis. No payor source. Will need placement. Progress Note: Quality VTE Deep Vein Thrombosis/Pulmonary Embolism Present on Admission: No
[2018-03-23] MEDS: Carvedilol 6.25 MG Tablet PO SCH ×2 (13:25→21:41)
[2018-03-23] MEDS: amLODIPine 5 MG Tablet PO SCH (13:25)
[2018-03-23] MEDS: levETIRAcetam 500 MG Tablet PO SCH ×2 (13:25→21:41)
[2018-03-23] MEDS: Senna/Docusate Sodium 8.6/50 MG Tablet PO SCH ×2 (13:25→21:41)
[2018-03-23] MEDS: Folic Acid 1 MG Tablet PO SCH (13:25)
[2018-03-23] MEDS: QUEtiapine 25 MG Tablet PO SCH (21:42)
[2018-03-24] MEDS: Levothyroxine 88 MCG Tablet PO SCH (05:21)
[2018-03-24] MEDS: amLODIPine 5 MG Tablet PO SCH (08:33)
[2018-03-24] MEDS: Carvedilol 6.25 MG Tablet PO SCH ×2 (08:34→22:45)
[2018-03-24] MEDS: Folic Acid 1 MG Tablet PO SCH (08:34)
[2018-03-24] MEDS: levETIRAcetam 500 MG Tablet PO SCH ×2 (08:34→22:42)
[2018-03-24] MEDS: Senna/Docusate Sodium 8.6/50 MG Tablet PO SCH ×2 (08:34→22:45)
[2018-03-24] MEDS: Calcium Acetate 667 MG Capsule PO SCH ×3 (08:34→17:13)
--- NOTE | 2018-03-24 17:51 | P.PNIM ---
Subjective Interval history: Patient is seen sitting in his room. He is unhappy with his food and frustrated that he is restricted to a renal diet. Tells me he would like to go home -seems to be having difficulty grasping the fact that he is unable to care for himself and that he would need dialysis. Physical Exam Vital signs: Vital Signs 03/23/18 20:00 03/24/18 00:00 03/24/18 01:06 Temperature 98.2 F 99.9 F H Pulse Rate 80 75 Respiratory Rate 18 18 18 Blood Pressure 112/80 110/69 Pulse Oximetry 95 94 L 03/24/18 04:00 03/24/18 07:42 03/24/18 07:43 Temperature 99.5 F 98 F Pulse Rate 71 68 Respiratory Rate 18 18 16 Blood Pressure 103/69 125/94 H Pulse Oximetry 93 L 94 L 03/24/18 08:00 03/24/18 11:56 03/24/18 16:00 Temperature 98.9 F 98 F Pulse Rate 68 80 82 Respiratory Rate 18 20 Blood Pressure 107/61 120/65 Pulse Oximetry 93 L 99 Intake & Output 03/23/18 03/24/18 03/24/18 18:59 06:59 18:59 Intake Total 720 / 720 1200 / 1200 Output Total 1999 350 / 350 350 / 350 Balance -1280 / -1280 -350 / -350 850 / 850 Intake: Oral 720 / 720 1200 / 1200 Output: Urine 350 / 350 350 / 350 Hemodialysis Amount 1999 Other: # Voids 1 # Incontinent Voids 0 Date of Last Bowel Movement 03/22/18 03/22/18 03/24/18 # Bowel Movements 1 Narrative: GENERAL: Well-nourished, well-developed adult male in no obvious distress. Noted to be a poor historian. SKIN: Warm and dry. Dialysis catheter in right chest wall -no erythema or drainage. HEAD: Atraumatic. Normocephalic. CARDIOVASCULAR: Regular rate and rhythm. RESPIRATORY: No accessory muscle use. Clear to auscultation. Breath sounds equal bilaterally. GASTROINTESTINAL: Abdomen soft, non-tender, non-distended. Positive bowel sounds. MUSCULOSKELETAL: Extremities without clubbing, cyanosis, or edema. No obvious deformities. NEUROLOGICAL: Awake and alert. No obvious cranial nerve deficits. Motor grossly within normal limits. Normal speech. Urinary Catheter Management Indwelling Temp Sensing Catheter: Cath placed during this visit: yes, but has since been removed by the nurse Reason for continuing: Decision to DC catheter Insertion date: 01/14/18 Insertion time: 22:00 Removal date: 01/21/18 Removal time: 18:00 Straight: Cath placed during this visit: yes, but has since been removed by the nurse Reason for continuing: Acute urinary retention Insertion date: 03/16/18 Insertion time: 00:50 Removal date: 03/01/18 Removal time: 23:30 Results Labs CBC & Chem 7: 03/21/18 05:07 03/21/18 05:07 Procedures Procedures: Left IJ HD tunneled cath placed 02/08/18 by IR Assessment and Plan (1) Gross hematuria: Code(s): R31.0 - Gross hematuria Status: Acute Onset Date: ~03/10/18 Plan 62-year-old white male who was admitted with cardiogenic shock and acute respiratory failure requiring CPR and epinephrine in the field, after being found down at home and being witnessed to possibly have undergone seizure-like activity. Intubation was attempted in the field but were unable to do so, patient was ultimately intubated in the hospital, started on pressors, placed in the ICU on mechanical ventilation. Found to have bilateral pneumothoraces with chest tubes placed, had developed some pneumoperitoneum which surgically deemed might have been a leak from his chest tubes as opposed to an acute surgical abdomen. Patient was started on antibiotics empirically for possible aspiration pneumonia but was ultimately discontinued off of them by infectious disease. Developed rhabdomyolysis with worsening acute renal failure which became sustained, with the patient now undergoing dialysis. Ultimately was discontinued off pressors, cardiology deferred heart cath due to renal failure. Patient had difficulty following commands after he was discontinued off of sedation and after extubation. Had an MRI done on 01/17 which showed no acute findings, only an older right parietal CVA. EEG was done which was unremarkable. End-stage renal disease -Continue MWF hemodialysis. -Nephrology following. Patient will likely need permanent dialysis. 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 Remains afebrile. WBCs WNL. -patient now urinating spontaneously, no further retention Anxiety and agitated behaviors; questionable decision-making ability -Psychiatry consulted; Patient has decision-making capacity to participate medical decisions at this moment. -Continue patient's seroquel, patient reports previously on 100mg hs, adjusted dose Acute on chronic pain -Pain meds PRN; d/c IV morphine and transition to oral percocet; goal is to wean and DC narcotics -E-forcse reviewed-patient was not on chronic narcotic pain medication prior to admission. 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 Possible anoxic brain injury -Neurology consulted and following -PT/OT/ST -Ok to get out of bed per Neurology with assistance Dysphagia related to encephalopathy -ST rec mechanical soft, thin liquid diet Possible seizure -Continue Keppra -EEG was negative NSTEMI -Troponins 0.52, 1.89, 2.37 -Cardiology consulted, recommended conservative medical management -Continue ASA, Coreg, Isosorbide, amlodipine and atorvastatin Bilateral pneumothoraces - stable -Chest tube removed 01/28/18 Pneumomediastinum Pneumoperitoneum with right retroperitoneal gas around the right kidney -Likely secondary to bilateral pneumothoraces with no surgical intervention warranted per general surgery Acute respiratory failure -Continue supplemental O2 PRN -Pulmonary following -O2 sat currently stable on room air Cirrhosis -Likely secondary to alcohol abuse -Continue BB Type II diabetes mellitus, uncontrolled ? -Not needing sliding scale coverage; frequently refusing 5 units Levemir at night -We will stop insulin for now; monitor daily blood glucose for need to restart Hypothyroidism -Continue Synthroid Normocytic anemia - stable -S/p PRBC transfusion -Epogen with dialysis MDM: self Code: DNR GI ppx: Protonix PO DVT ppx: Heparin SQ Discussed with: RN, patient, CM Dispo: awaiting placement once cleared by nephrology. Palliative care also following. Appreciate specialists assistance. Discharge Planning: Patient has remained dialysis dependent. Case management is aware of the possible need for dialysis. No payor source. Will need placement. Progress Note: Quality VTE Deep Vein Thrombosis/Pulmonary Embolism Present on Admission: No
[2018-03-24] MEDS: QUEtiapine 25 MG Tablet PO SCH (22:41)
[2018-03-25] MEDS: Levothyroxine 88 MCG Tablet PO SCH (06:41)
[2018-03-25] MEDS: levETIRAcetam 500 MG Tablet PO SCH ×2 (08:47→21:01)
[2018-03-25] MEDS: Senna/Docusate Sodium 8.6/50 MG Tablet PO SCH ×2 (08:47→21:01)
[2018-03-25] MEDS: Folic Acid 1 MG Tablet PO SCH (08:48)
[2018-03-25] MEDS: Carvedilol 6.25 MG Tablet PO SCH ×2 (08:48→21:01)
[2018-03-25] MEDS: Calcium Acetate 667 MG Capsule PO SCH ×3 (08:48→18:16)
[2018-03-25] MEDS: amLODIPine 5 MG Tablet PO SCH (08:48)
--- NOTE | 2018-03-25 10:37 | P.PNNP ---
Subjective Interval history: Resting comfortably. No shortness of breath, chest pain, nausea, or vomiting. Reports dysuria. <Smiley Barth - Last Filed: 03/25/18 10:40> Physical Exam Vital signs: Vital Signs 03/24/18 11:56 03/24/18 16:00 03/24/18 20:00 Temperature 98.9 F 98 F 98.3 F Pulse Rate 80 82 79 Respiratory Rate 18 20 18 Blood Pressure 107/61 120/65 111/79 Pulse Oximetry 93 L 99 95 03/24/18 23:56 03/25/18 00:00 03/25/18 03:55 Temperature 97.4 F L Pulse Rate 74 72 58 L Respiratory Rate 18 Blood Pressure 108/63 Pulse Oximetry 96 03/25/18 04:00 03/25/18 04:38 03/25/18 07:55 Temperature 98.3 F 97.4 F L Pulse Rate 72 64 Respiratory Rate 18 16 18 Blood Pressure 115/70 114/69 Pulse Oximetry 95 96 03/25/18 08:00 03/25/18 08:39 Temperature Pulse Rate 62 Respiratory Rate 18 Blood Pressure Pulse Oximetry Intake & Output 03/24/18 03/25/18 03/25/18 18:59 06:59 18:59 Intake Total 1200 / 1200 300 / 300 240 / 240 Output Total 350 / 350 250 / 250 Balance 850 / 850 50 / 50 240 / 240 Intake: Oral 1200 / 1200 300 / 300 240 / 240 Output: Urine 350 / 350 250 / 250 Other: # Voids 1 # Incontinent Voids 0 Date of Last Bowel Movement 03/24/18 # Bowel Movements 1 Narrative: GENERAL: Well-nourished, well-developed middle-aged male patient in [facility]. SKIN: Warm and dry. No rash. Right anterior chest with dialysis catheter, no surrounding erythema. HEENT: Normocephalic. Atraumatic. Mucous membranes pink and moist. CARDIOVASCULAR: Regular rate and rhythm. RESPIRATORY: No accessory muscle use. Clear to auscultation. Breath sounds equal bilaterally. GASTROINTESTINAL: Abdomen soft, non-tender, nondistended. Normoactive bowel sounds x4. MUSCULOSKELETAL: No obvious deformities. Extremities without clubbing, cyanosis , or edema. NEUROLOGICAL: Awake and alert. No obvious cranial nerve deficits. Moving all extremities spontaneously. Normal speech. - Urinary Catheter Management Indwelling Temp Sensing Catheter Cath placed during this visit: yes, but has since been removed by the nurse Reason for continuing: Decision to DC catheter Insertion date: 01/14/18 Insertion time: 22:00 Removal date: 01/21/18 Removal time: 18:00 Straight Cath placed during this visit: yes, but has since been removed by the nurse Reason for continuing: Acute urinary retention Insertion date: 03/16/18 Insertion time: 00:50 Removal date: 03/01/18 Removal time: 23:30 <Smiley Barth - Last Filed: 03/25/18 10:40> Vital signs: Vital Signs 03/24/18 23:56 03/25/18 00:00 03/25/18 03:55 Temperature 97.4 F L Pulse Rate 74 72 58 L Respiratory Rate 18 Blood Pressure 108/63 Pulse Oximetry 96 03/25/18 04:00 03/25/18 04:38 03/25/18 07:55 Temperature 98.3 F 97.4 F L Pulse Rate 72 64 Respiratory Rate 18 16 18 Blood Pressure 115/70 114/69 Pulse Oximetry 95 96 03/25/18 08:00 03/25/18 08:39 03/25/18 12:00 Temperature 98.3 F Pulse Rate 62 64 Respiratory Rate 18 18 Blood Pressure 121/73 Pulse Oximetry 96 03/25/18 16:00 Temperature 98.3 F Pulse Rate 90 Respiratory Rate 18 Blood Pressure 109/71 Pulse Oximetry 97 Intake & Output 03/25/18 03/25/18 03/26/18 06:59 18:59 06:59 Intake Total 300 / 300 240 / 240 Output Total 250 / 250 425 / 425 Balance 50 / 50 -185 / -185 Intake: Oral 300 / 300 240 / 240 Output: Urine 250 / 250 425 / 425 Other: # Incontinent Voids 0 - Urinary Catheter Management Indwelling Temp Sensing Catheter Cath placed during this visit: no Straight Cath placed during this visit: no <Brianna Blevins - Last Filed: 03/25/18 21:12> Assessment and Plan - Assessment (1) Acute renal failure Code(s): N17.9 - Acute kidney failure, unspecified Status: Acute Plan: Remains dialysis dependent at this time. 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 Medications should be adjusted for the patient's estimated GFR if clinically indicated. Avoid agents with significant potential for nephrotoxicity possible including NSAIDs for analgesia, iodine contrast agents. Gadolinium is contraindicated if the GFR is below 30. Monitor UOP and electrolytes. HD on HD tomorrow will remove fluid as tolerated. Labs with dialysis No renal improvement thus far (2) Anemia Code(s): D64.9 - Anemia, unspecified Status: Acute Qualifiers: Anemia type: due to chronic kidney disease Plan: Epogen with dialysis. HGB stable (3) Hypertension Code(s): I10 - Essential (primary) hypertension Status: Acute Plan: Well controlled, will monitor. (4) Diabetes Code(s): E11.9 - Type 2 diabetes mellitus without complications Status: Acute Plan: Maintain blood sugars between 140 mg /dl to 180 mg/dl while hospitalized. Well controlled. <Smiley Barth - Last Filed: 03/25/18 10:40> - Assessment (1) Acute renal failure Code(s): N17.9 - Acute kidney failure, unspecified Status: Acute Plan: Patient seen and examined,agree with above. Still has no improvement in the renal function, HD will be in AM. (2) Anemia Code(s): D64.9 - Anemia, unspecified Status: Acute Qualifiers: Anemia type: due to chronic kidney disease (3) Hypertension Code(s): I10 - Essential (primary) hypertension Status: Acute (4) Diabetes Code(s): E11.9 - Type 2 diabetes mellitus without complications Status: Acute <Brianna Blevins - Last Filed: 03/25/18 21:12>
[2018-03-25 16:46] LABS: Bacteria,Urine Few /hpf; Bilirubin,Urine Negative (Negative); Clarity,Urine Hazy (Clear); Color,Urine Yellow (Yellw/Straw); Glucose,Urine (UA) Negative (Negative); Hyaline Casts,Urine 1 /lpf (0-3); Leukocyte Esterase,Urine Large (Negative); Nitrite,Urine Negative (Negative); Specific Gravity,Urine 1.009 (1.002-1.035); Squamous Epithelial Cell,Urine <1 /hpf (0-5)
--- NOTE | 2018-03-25 17:57 | P.PNIM ---
Subjective Interval history: Patient is seen at home in wheelchair. He is also seen in room lying in bed. Tells me that he needs narcotics due to his pain. When asked to describe the pain he said it occurs when he has a bowel movement because his stool is very hard and difficult to move. Discussed that narcotics are not appropriate choice for constipation. Encourage stool softener as alternative. Complaining of dysuria and saying that he is "peeing all the time". Physical Exam Vital signs: Vital Signs 03/24/18 20:00 03/24/18 23:56 03/25/18 00:00 Temperature 98.3 F 97.4 F L Pulse Rate 79 74 72 Respiratory Rate 18 18 Blood Pressure 111/79 108/63 Pulse Oximetry 95 96 03/25/18 03:55 03/25/18 04:00 03/25/18 04:38 Temperature 98.3 F Pulse Rate 58 L 72 Respiratory Rate 18 16 Blood Pressure 115/70 Pulse Oximetry 95 03/25/18 07:55 03/25/18 08:00 03/25/18 08:39 Temperature 97.4 F L Pulse Rate 64 62 Respiratory Rate 18 18 Blood Pressure 114/69 Pulse Oximetry 96 03/25/18 12:00 03/25/18 16:00 Temperature 98.3 F 98.3 F Pulse Rate 64 90 Respiratory Rate 18 18 Blood Pressure 121/73 109/71 Pulse Oximetry 96 97 Intake & Output 03/24/18 03/25/18 03/25/18 18:59 06:59 18:59 Intake Total 1200 / 1200 300 / 300 240 / 240 Output Total 350 / 350 250 / 250 Balance 850 / 850 50 / 50 240 / 240 Intake: Oral 1200 / 1200 300 / 300 240 / 240 Output: Urine 350 / 350 250 / 250 Other: # Voids 1 # Incontinent Voids 0 Date of Last Bowel Movement 03/24/18 # Bowel Movements 1 Narrative: GENERAL: Well-nourished, well-developed adult male in no obvious distress. Noted to be a poor historian. SKIN: Warm and dry. Dialysis catheter in right chest wall -no erythema or drainage. HEAD: Atraumatic. Normocephalic. CARDIOVASCULAR: Regular rate and rhythm. RESPIRATORY: No accessory muscle use. Clear to auscultation. Breath sounds equal bilaterally. GASTROINTESTINAL: Abdomen soft, non-tender, non-distended. Positive bowel sounds. MUSCULOSKELETAL: Extremities without clubbing, cyanosis, or edema. No obvious deformities. NEUROLOGICAL: Awake and alert. No obvious cranial nerve deficits. Motor grossly within normal limits. Normal speech. Urinary Catheter Management Indwelling Temp Sensing Catheter: Cath placed during this visit: yes, but has since been removed by the nurse Reason for continuing: Decision to DC catheter Insertion date: 01/14/18 Insertion time: 22:00 Removal date: 01/21/18 Removal time: 18:00 Straight: Cath placed during this visit: yes, but has since been removed by the nurse Reason for continuing: Acute urinary retention Insertion date: 03/16/18 Insertion time: 00:50 Removal date: 03/01/18 Removal time: 23:30 Results Labs CBC & Chem 7: 03/21/18 05:07 03/21/18 05:07 Procedures Procedures: Left IJ HD tunneled cath placed 02/08/18 by IR Assessment and Plan (1) Acute renal failure: Code(s): N17.9 - Acute kidney failure, unspecified Status: Acute (2) Anemia: Code(s): D64.9 - Anemia, unspecified Status: Acute (3) Hypertension: Code(s): I10 - Essential (primary) hypertension Status: Acute (4) Diabetes: Code(s): E11.9 - Type 2 diabetes mellitus without complications Status: Acute Plan 62-year-old white male who was admitted with cardiogenic shock and acute respiratory failure requiring CPR and epinephrine in the field, after being found down at home and being witnessed to possibly have undergone seizure-like activity. Intubation was attempted in the field but were unable to do so, patient was ultimately intubated in the hospital, started on pressors, placed in the ICU on mechanical ventilation. Found to have bilateral pneumothoraces with chest tubes placed, had developed some pneumoperitoneum which surgically deemed might have been a leak from his chest tubes as opposed to an acute surgical abdomen. Patient was started on antibiotics empirically for possible aspiration pneumonia but was ultimately discontinued off of them by infectious disease. Developed rhabdomyolysis with worsening acute renal failure which became sustained, with the patient now undergoing dialysis. Ultimately was discontinued off pressors, cardiology deferred heart cath due to renal failure. Patient had difficulty following commands after he was discontinued off of sedation and after extubation. Had an MRI done on 01/17 which showed no acute findings, only an older right parietal CVA. EEG was done which was unremarkable. End-stage renal disease -Continue MWF hemodialysis. -Nephrology following. Patient will likely need permanent dialysis. 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 Remains afebrile. WBCs WNL. -patient now urinating spontaneously, no further retention -Repeat complaint of dysuria; new UA ordered 03/25-culture pending. Due to frequent use of antibiotics recently will hold off on antibiotic until cultures are back. Anxiety and agitated behaviors; questionable decision-making ability -Psychiatry consulted; Patient has decision-making capacity to participate medical decisions at this moment. -Continue patient's seroquel, patient reports previously on 100mg hs, adjusted dose Acute on chronic pain -Pain meds PRN; d/c IV morphine and transition to oral percocet; goal is to wean and DC narcotics -E-forcse reviewed-patient was not on chronic narcotic pain medication prior to admission. 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 Possible anoxic brain injury -Neurology consulted and following -PT/OT/ST -Ok to get out of bed per Neurology with assistance Dysphagia related to encephalopathy -ST rec mechanical soft, thin liquid diet Possible seizure -Continue Keppra -EEG was negative NSTEMI -Troponins 0.52, 1.89, 2.37 -Cardiology consulted, recommended conservative medical management -Continue ASA, Coreg, Isosorbide, amlodipine and atorvastatin Bilateral pneumothoraces - stable -Chest tube removed 01/28/18 Pneumomediastinum Pneumoperitoneum with right retroperitoneal gas around the right kidney -Likely secondary to bilateral pneumothoraces with no surgical intervention warranted per general surgery Acute respiratory failure -Continue supplemental O2 PRN -Pulmonary following -O2 sat currently stable on room air Cirrhosis -Likely secondary to alcohol abuse -Continue BB Type II diabetes mellitus, uncontrolled ? -Not needing sliding scale coverage; frequently refusing 5 units Levemir at night -We will stop insulin for now; monitor daily blood glucose for need to restart Hypothyroidism -Continue Synthroid Normocytic anemia - stable -S/p PRBC transfusion -Epogen with dialysis Constipation -Patient on bowel regimen MDM: self Code: DNR GI ppx: Protonix PO DVT ppx: Heparin SQ Discussed with: RN, patient, CM Dispo: awaiting placement once cleared by nephrology. Palliative care also following. Appreciate specialists assistance. Discharge Planning: Patient has remained dialysis dependent. Case management is aware of the possible need for dialysis. No payor source. Will need placement. 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
[2018-03-25] MEDS: QUEtiapine 25 MG Tablet PO SCH (21:01)
[2018-03-26] MEDS: Levothyroxine 88 MCG Tablet PO SCH (06:08)
[2018-03-26] MEDS: Heparin 2,000 UNITS/2 ML Vial (for IV use) IV.FLUSH PRN (08:37)
[2018-03-26 10:09] LABS: Baso # (Auto) 0.1 th/mm3 (0.0-0.2); Baso % (Auto) 1.1 % (0.0-2.0); Eos # (Auto) 0.3 th/mm3 (0.0-0.4); Hematocrit 33.2 % (39.0-51.0); Hemoglobin 10.5 gm/dL (13.0-17.0); Lymph # (Auto) 1.4 th/mm3 (1.0-4.8); Lymph % (Auto) 18.6 % (9.0-44.0); Mean Corpuscular HGB Conc 31.7 % (32.0-36.0); Mean Corpuscular Hemoglobin 27.3 pg (27.0-34.0); Mono # (Auto) 0.4 th/mm3 (0.0-0.9); Mono % (Auto) 5.2 % (0.0-8.0); Neut # (Auto) 5.5 th/mm3 (1.8-7.7); Neut % (Auto) 71.1 % (16.0-70.0); Platelet Count 270 th/mm3 (150-450); Red Blood Count 3.86 mil/mm3 (4.50-5.90); Red Cell Distribution Width 16.4 % (11.6-17.2); White Blood Count 7.7 th/mm3 (4.0-11.0)
[2018-03-26 10:34] LABS: Albumin 2.6 g/dL (3.4-5.0); Calcium 8.7 mg/dL (8.5-10.1); Potassium 3.6 meq/L (3.5-5.1)
[2018-03-26] MEDS: Calcium Acetate 667 MG Capsule PO SCH ×2 (12:35→12:36)
[2018-03-26] MEDS: Carvedilol 6.25 MG Tablet PO SCH ×2 (12:36→22:51)
[2018-03-26] MEDS: Folic Acid 1 MG Tablet PO SCH (12:37)
[2018-03-26] MEDS: levETIRAcetam 500 MG Tablet PO SCH ×2 (12:37→22:51)
[2018-03-26] MEDS: amLODIPine 5 MG Tablet PO SCH (12:38)
[2018-03-26] MEDS: Senna/Docusate Sodium 8.6/50 MG Tablet PO SCH ×2 (12:38→22:52)
--- NOTE | 2018-03-26 14:32 | P.PNIM ---
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 Patient seen and examined laying in bed, stated just get back from dialysis and feel cold. Left arm numbness and coldness every time he goes to dialysis. Patient complaint of left arm with numbness and tingling. Patient stated chief he feels that his left arm cold. Patient denies any headache or dizziness, denies any chest pain or shortness of breath. Patient stated he ate well, the best for he ate today. Patient denies any nausea or vomiting. Denies any diarrhea or constipation. Patient denies any fever or chills. Physical Exam Vital signs: Vital Signs 03/25/18 16:00 03/25/18 20:00 03/25/18 20:10 Temperature 98.3 F 97.8 F Pulse Rate 90 75 88 Respiratory Rate 18 18 Blood Pressure 109/71 153/77 H Pulse Oximetry 97 95 03/26/18 00:00 03/26/18 00:07 03/26/18 03:59 Temperature 97.8 F Pulse Rate 86 83 74 Respiratory Rate 18 Blood Pressure 124/76 Pulse Oximetry 92 L 03/26/18 04:00 03/26/18 12:00 03/26/18 12:23 Temperature 97.8 F 97.4 F L Pulse Rate 71 75 74 Respiratory Rate 18 20 Blood Pressure 132/77 116/75 Pulse Oximetry 96 96 Intake & Output 03/25/18 03/26/18 03/26/18 18:59 06:59 18:59 Intake Total 240 / 240 Output Total 425 / 425 1999 Balance -185 / -185 -1999 Weight 95.6 kg Intake: Oral 240 / 240 Output: Urine 425 / 425 Hemodialysis Amount 1999 Other: # Voids 950 Date of Last Bowel Movement 03/26/18 03/26/18 Narrative: GENERAL: Well-developed, well-nourished, male in no acute distress SKIN: Warm and dry. Right subclavian AV graft intact HEAD: Atraumatic. Normocephalic. EYES: Pupils equal and round. No scleral icterus. No injection or drainage. ENT: No nasal bleeding or discharge. Mucous membranes pink and moist. NECK: Trachea midline. No JVD. CARDIOVASCULAR: Regular rate and rhythm. RESPIRATORY: No accessory muscle use. Clear to auscultation. Breath sounds equal bilaterally. GASTROINTESTINAL: Abdomen obese soft, non-tender, nondistended. Hepatic and splenic margins not palpable. MUSCULOSKELETAL: Extremities without clubbing, cyanosis. Bilateral lower extremity with trace edema no obvious deformities. NEUROLOGICAL: Awake and alert. No obvious cranial nerve deficits. Generalized weakness, moving all 4 extremities normal speech. PSYCHIATRIC: Flat mood and affect; insight and judgment poor. Urinary Catheter Management Indwelling Temp Sensing Catheter: Cath placed during this visit: yes, but has since been removed by the nurse Reason for continuing: Decision to DC catheter Insertion date: 01/14/18 Insertion time: 22:00 Removal date: 01/21/18 Removal time: 18:00 Straight: Cath placed during this visit: yes, but has since been removed by the nurse Reason for continuing: Acute urinary retention Insertion date: 03/16/18 Insertion time: 00:50 Removal date: 03/01/18 Removal time: 23:30 Results Labs CBC & Chem 7: 03/26/18 09:00 03/26/18 09:00 Procedures Procedures: Left IJ HD tunneled cath placed 02/08/18 by IR Assessment and Plan (1) Acute renal failure: Code(s): N17.9 - Acute kidney failure, unspecified Status: Acute (2) Anemia: Code(s): D64.9 - Anemia, unspecified Status: Acute (3) Hypertension: Code(s): I10 - Essential (primary) hypertension Status: Acute (4) Diabetes: Code(s): E11.9 - Type 2 diabetes mellitus without complications Status: Acute Plan 62-year-old white male who was admitted with cardiogenic shock and acute respiratory failure requiring CPR and epinephrine in the field, after being found down at home and being witnessed to possibly have undergone seizure-like activity. Intubation was attempted in the field but were unable to do so, patient was ultimately intubated in the hospital, started on pressors, placed in the ICU on mechanical ventilation. Found to have bilateral pneumothoraces with chest tubes placed, had developed some pneumoperitoneum which surgically deemed might have been a leak from his chest tubes as opposed to an acute surgical abdomen. Patient was started on antibiotics empirically for possible aspiration pneumonia but was ultimately discontinued off of them by infectious disease. Developed rhabdomyolysis with worsening acute renal failure which became sustained, with the patient now undergoing dialysis. Ultimately was discontinued off pressors, cardiology deferred heart cath due to renal failure. Patient had difficulty following commands after he was discontinued off of sedation and after extubation. Had an MRI done on 01/17 which showed no acute findings, only an older right parietal CVA. EEG was done which was unremarkable. End-stage renal disease Normocytic Anemia, s/p blood transfusion -on hemodialysis MWF -Nephrology following. Patient will likely need permanent dialysis. 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 Remains afebrile. WBCs WNL. -Repeat complaint of dysuria; new UA ordered 03/25-culture pending. Due to frequent use of antibiotics recently will hold off on antibiotic until cultures are back. -patient now urinating spontaneously, no further retention, pt voiding today Anxiety and agitated behaviors; questionable decision-making ability -Psychiatry consulted; Patient has decision-making capacity to participate medical decisions at this moment. -Continue patient's seroquel, patient reports previously on 100mg hs, adjusted dose Acute on chronic pain Peripheral neuropathy, left arm numbness and tingling -New PRN Percocet for pain management with bowel regimen, goal is to wean and DC narcotics -E-forcse reviewed-patient was not on chronic narcotic pain medication prior to admission. 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 Possible anoxic brain injury Dysphagia related to encephalopathy -Neurology consulted and following -PT/OT/ST -Ok to get out of bed per Neurology with assistance -ST rec mechanical soft, thin liquid diet Possible seizure -Continue Keppra -EEG was negative NSTEMI -Troponins 0.52, 1.89, 2.37 -Cardiology consulted, recommended conservative medical management -Continue ASA, Coreg, Isosorbide, amlodipine and atorvastatin -No chest pain no shortness of breath Acute respiratory failure Bilateral pneumothoraces - stable, Chest tube removed 01/28/18 Pneumomediastinum Pneumoperitoneum with right retroperitoneal gas around the right kidney -Likely secondary to bilateral pneumothoraces with no surgical intervention warranted per general surgery -Continue supplemental O2 PRN -Pulmonary following -O2 sat currently stable on room air Cirrhosis -Likely secondary to alcohol abuse -Continue BB Type II diabetes mellitus -not on any medication -Not needing sliding scale coverage; frequently refusing 5 units Levemir at night -We will stop insulin for now; monitor daily blood glucose for need to restart Hypothyroidism -Continue Synthroid GI ppx: Protonix PO DVT ppx: Heparin SQ Code Status: DNR 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 and nurse MDR Discharge Planning: Patient has remained dialysis dependent. Case management is aware of the possible need for dialysis. No payor source. Will need placement. 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
--- NOTE | 2018-03-26 16:11 | P.PNNP ---
Subjective Interval history: Seen during hemodialysis, resting comfortably with no complaints. <Smiley Barth - Last Filed: 03/26/18 16:09> Physical Exam Vital signs: Vital Signs 03/25/18 20:00 03/25/18 20:10 03/26/18 00:00 Temperature 97.8 F 97.8 F Pulse Rate 75 88 86 Respiratory Rate 18 18 Blood Pressure 153/77 H 124/76 Pulse Oximetry 95 92 L 03/26/18 00:07 03/26/18 03:59 03/26/18 04:00 Temperature 97.8 F Pulse Rate 83 74 71 Respiratory Rate 18 Blood Pressure 132/77 Pulse Oximetry 96 03/26/18 12:00 03/26/18 12:23 Temperature 97.4 F L Pulse Rate 75 74 Respiratory Rate 20 Blood Pressure 116/75 Pulse Oximetry 96 Intake & Output 03/25/18 03/26/18 03/26/18 18:59 06:59 18:59 Intake Total 240 / 240 1000 / 1000 Output Total 425 / 425 1999 Balance -185 / -185 -1000 / -1000 Weight 95.6 kg Intake: IV 1000 / 1000 NS Inj 1,000 ML @ As Directed 1000 / 1000 OTHER .Q0M PRN Rx#:[id number] Oral 240 / 240 Output: Urine 425 / 425 Hemodialysis Amount 1999 Other: # Voids 950 Date of Last Bowel Movement 03/26/18 03/26/18 Narrative: GENERAL: Well-nourished, well-developed middle-aged male patient in [facility]. SKIN: Warm and dry. No rash. Right anterior chest with dialysis catheter, no surrounding erythema. HEENT: Normocephalic. Atraumatic. Mucous membranes pink and moist. CARDIOVASCULAR: Regular rate and rhythm. RESPIRATORY: No accessory muscle use. Clear to auscultation. Breath sounds equal bilaterally. GASTROINTESTINAL: Abdomen soft, non-tender, nondistended. Normoactive bowel sounds x4. MUSCULOSKELETAL: No obvious deformities. Extremities without clubbing, cyanosis , or edema. NEUROLOGICAL: Awake and alert. No obvious cranial nerve deficits. Moving all extremities spontaneously. Normal speech. - Urinary Catheter Management Indwelling Temp Sensing Catheter Cath placed during this visit: yes, but has since been removed by the nurse Reason for continuing: Decision to DC catheter Insertion date: 01/14/18 Insertion time: 22:00 Removal date: 01/21/18 Removal time: 18:00 Straight Cath placed during this visit: yes, but has since been removed by the nurse Reason for continuing: Acute urinary retention Insertion date: 03/16/18 Insertion time: 00:50 Removal date: 03/01/18 Removal time: 23:30 <Smiley Barth - Last Filed: 03/26/18 16:09> Vital signs: Vital Signs 03/25/18 20:10 03/26/18 00:00 03/26/18 00:07 Temperature 97.8 F Pulse Rate 88 86 83 Respiratory Rate 18 Blood Pressure 124/76 Pulse Oximetry 92 L 03/26/18 03:59 03/26/18 04:00 03/26/18 12:00 Temperature 97.8 F 97.4 F L Pulse Rate 74 71 75 Respiratory Rate 18 20 Blood Pressure 132/77 116/75 Pulse Oximetry 96 96 03/26/18 12:23 03/26/18 16:00 Temperature 97.9 F Pulse Rate 74 74 Respiratory Rate 20 Blood Pressure 139/82 Pulse Oximetry 96 Intake & Output 03/26/18 03/26/18 03/27/18 06:59 18:59 06:59 Intake Total 1000 / 1000 Output Total 1999 300 / 300 Balance -1000 / -1000 -300 / -300 Weight 95.6 kg Intake: IV 1000 / 1000 NS Inj 1,000 ML @ As Directed 1000 / 1000 OTHER .Q0M PRN Rx#:[id number] Output: Urine 0 / 0 300 / 300 Hemodialysis Amount 1999 Other: # Voids 950 Date of Last Bowel Movement 03/26/18 03/26/18 03/26/18 # Bowel Movements 1 - Urinary Catheter Management Indwelling Temp Sensing Catheter Cath placed during this visit: no Straight Cath placed during this visit: no <Brianna Blevins - Last Filed: 03/26/18 20:10> Assessment and Plan - Assessment (1) Acute renal failure Code(s): N17.9 - Acute kidney failure, unspecified Status: Acute Plan: Remains dialysis dependent at this time. 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 Medications should be adjusted for the patient's estimated GFR if clinically indicated. Avoid agents with significant potential for nephrotoxicity possible including NSAIDs for analgesia, iodine contrast agents. Gadolinium is contraindicated if the GFR is below 30. Monitor UOP and electrolytes. HD on Seen during hemodialysis with removal of 2 liters of fluid No renal improvement thus far (2) Anemia Code(s): D64.9 - Anemia, unspecified Status: Acute Qualifiers: Anemia type: due to chronic kidney disease Plan: Epogen with dialysis. HGB stable (3) Hypertension Code(s): I10 - Essential (primary) hypertension Status: Acute Plan: Well controlled, will monitor. (4) Diabetes Code(s): E11.9 - Type 2 diabetes mellitus without complications Status: Acute Plan: Maintain blood sugars between 140 mg /dl to 180 mg/dl while hospitalized. Well controlled. <Smiley Barth - Last Filed: 03/26/18 16:09> - Assessment (1) Acute renal failure Code(s): N17.9 - Acute kidney failure, unspecified Status: Acute Plan: Patient seen and examined, agree with above. HD done in AM, Has some improvement in the Creatinine. Follow BMP and HD as needed. (2) Anemia Code(s): D64.9 - Anemia, unspecified Status: Acute Qualifiers: Anemia type: due to chronic kidney disease (3) Hypertension Code(s): I10 - Essential (primary) hypertension Status: Acute (4) Diabetes Code(s): E11.9 - Type 2 diabetes mellitus without complications Status: Acute <Brianna Blevins - Last Filed: 03/26/18 20:10>
[2018-03-26] MEDS: Gabapentin 100 MG Capsule PO SCH (17:11)
[2018-03-26] MEDS: QUEtiapine 25 MG Tablet PO SCH (22:52)
[2018-03-27] MEDS: Levothyroxine 88 MCG Tablet PO SCH (05:56)
[2018-03-27] MEDS: Carvedilol 6.25 MG Tablet PO SCH ×2 (08:41→21:08)
[2018-03-27] MEDS: Senna/Docusate Sodium 8.6/50 MG Tablet PO SCH ×2 (08:41→21:08)
[2018-03-27] MEDS: levETIRAcetam 500 MG Tablet PO SCH ×2 (08:41→21:08)
[2018-03-27] MEDS: amLODIPine 5 MG Tablet PO SCH (08:41)
[2018-03-27] MEDS: Folic Acid 1 MG Tablet PO SCH (08:42)
[2018-03-27] MEDS: Gabapentin 100 MG Capsule PO SCH ×3 (08:42→17:03)
--- NOTE | 2018-03-27 12:39 | P.PNIM ---
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 Patient seen and examined sitting in the chair, stated doing better without any complaints. Patient denies any pain or shortness of breath, denies any headache or dizziness, denies any chest pain or shortness of breath. Patient stated sleeping well and eating well. Physical Exam Vital signs: Vital Signs 03/26/18 16:00 03/26/18 20:00 03/26/18 20:58 Temperature 97.9 F 98.4 F Pulse Rate 74 69 72 Respiratory Rate 20 20 Blood Pressure 139/82 115/71 Pulse Oximetry 96 98 03/27/18 01:12 03/27/18 05:49 03/27/18 08:00 Temperature 98.4 F 98.2 F 98.1 F Pulse Rate 77 72 68 Respiratory Rate 20 20 14 Blood Pressure 117/73 128/71 135/68 Pulse Oximetry 93 L 94 L 94 L Intake & Output 03/26/18 03/27/18 03/27/18 18:59 06:59 18:59 Intake Total 1000 / 1000 Output Total 1999 600 / 600 Balance -1000 / -1000 -600 / -600 Intake: IV 1000 / 1000 NS Inj 1,000 ML @ As Directed 1000 / 1000 OTHER .Q0M PRN Rx#:[id number] Output: Urine 0 / 0 600 / 600 Hemodialysis Amount 1999 Other: Date of Last Bowel Movement 03/26/18 03/26/18 03/26/18 # Bowel Movements 1 Narrative: GENERAL: Well-developed, well-nourished, male in no acute distress SKIN: Warm and dry. Right subclavian AV graft intact HEAD: Atraumatic. Normocephalic. EYES: Pupils equal and round. No scleral icterus. No injection or drainage. ENT: No nasal bleeding or discharge. Mucous membranes pink and moist. NECK: Trachea midline. No JVD. CARDIOVASCULAR: Regular rate and rhythm. RESPIRATORY: No accessory muscle use. Clear to auscultation. Breath sounds equal bilaterally. GASTROINTESTINAL: Abdomen obese soft, non-tender, nondistended. Hepatic and splenic margins not palpable. MUSCULOSKELETAL: Extremities without clubbing, cyanosis. Bilateral lower extremity with trace edema no obvious deformities. NEUROLOGICAL: Awake and alert. No obvious cranial nerve deficits. Generalized weakness, moving all 4 extremities normal speech. PSYCHIATRIC: Flat mood and affect; insight and judgment poor. Urinary Catheter Management Indwelling Temp Sensing Catheter: Cath placed during this visit: yes, but has since been removed by the nurse Reason for continuing: Decision to DC catheter Insertion date: 01/14/18 Insertion time: 22:00 Removal date: 01/21/18 Removal time: 18:00 Straight: Cath placed during this visit: yes, but has since been removed by the nurse Reason for continuing: Acute urinary retention Insertion date: 03/16/18 Insertion time: 00:50 Removal date: 03/01/18 Removal time: 23:30 Results Labs CBC & Chem 7: 03/26/18 09:00 03/26/18 09:00 Labs: Microbiology 03/25/18 16:09 Clean Catch Urine Urine Culture - Final 10-50,000 cfu/mL mixed gram positive eduardo (probable contaminants) Procedures Procedures: Left IJ HD tunneled cath placed 02/08/18 by IR Assessment and Plan (1) Acute renal failure: Code(s): N17.9 - Acute kidney failure, unspecified Status: Acute (2) Anemia: Code(s): D64.9 - Anemia, unspecified Status: Acute (3) Hypertension: Code(s): I10 - Essential (primary) hypertension Status: Acute (4) Diabetes: Code(s): E11.9 - Type 2 diabetes mellitus without complications Status: Acute Plan 62-year-old white male who was admitted with cardiogenic shock and acute respiratory failure requiring CPR and epinephrine in the field, after being found down at home and being witnessed to possibly have undergone seizure-like activity. Intubation was attempted in the field but were unable to do so, patient was ultimately intubated in the hospital, started on pressors, placed in the ICU on mechanical ventilation. Found to have bilateral pneumothoraces with chest tubes placed, had developed some pneumoperitoneum which surgically deemed might have been a leak from his chest tubes as opposed to an acute surgical abdomen. Patient was started on antibiotics empirically for possible aspiration pneumonia but was ultimately discontinued off of them by infectious disease. Developed rhabdomyolysis with worsening acute renal failure which became sustained, with the patient now undergoing dialysis. Ultimately was discontinued off pressors, cardiology deferred heart cath due to renal failure. Patient had difficulty following commands after he was discontinued off of sedation and after extubation. Had an MRI done on 01/17 which showed no acute findings, only an older right parietal CVA. EEG was done which was unremarkable. End-stage renal disease Normocytic Anemia, s/p blood transfusion -on hemodialysis M-W- -Nephrology following. Patient will likely need permanent dialysis. 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 Remains afebrile. WBCs WNL. -Repeat complaint of dysuria; new UA ordered 03/25 mixed gram positive eduardo -Urology following: to f/u with Dr Ferraro as an outpatient -patient now urinating spontaneously, no further retention, pt voiding better Anxiety and agitated behaviors; questionable decision-making ability -Psychiatry consulted: Patient has decision-making capacity to participate medical decisions at this moment. -Continue patient's seroquel -mental status improving Acute on chronic pain Peripheral neuropathy, left arm numbness and tingling -New PRN Percocet for pain management with bowel regimen, goal is to wean and DC narcotics -E-forcse reviewed-patient was not on chronic narcotic pain medication prior to admission. -Start on gabapentin, monitor response, monitor BMP -pain improving 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 Possible anoxic brain injury Dysphagia related to encephalopathy -Neurology following : Ok to get out of bed per Neurology with assistance -PT/OT/ST -ST rec mechanical soft, thin liquid diet -tolerating PO diet Possible seizure -Continue Keppra -EEG was negative NSTEMI -Troponins 0.52, 1.89, 2.37 -Cardiology consulted, recommended conservative medical management -Continue ASA, Coreg, Isosorbide, amlodipine and atorvastatin -No chest pain no shortness of breath Acute respiratory failure Bilateral pneumothoraces - stable, Chest tube removed 01/28/18 Pneumomediastinum Pneumoperitoneum with right retroperitoneal gas around the right kidney -Likely secondary to bilateral pneumothoraces with no surgical intervention warranted per general surgery -Continue supplemental O2 PRN -Pulmonary following -O2 sat currently stable on room air Cirrhosis -Likely secondary to alcohol abuse -Continue BB Type II diabetes mellitus -not on any medication -Not needing sliding scale coverage; frequently refusing 5 units Levemir at night -monitor daily blood glucose with insulin SS coverage Hypothyroidism -Continue Synthroid GI ppx: Protonix PO DVT ppx: Heparin SQ Discharge Planning: Patient has remained dialysis dependent. Case management is aware of the possible need for dialysis. No payor source. Will need placement. Progress Note: Quality VTE Deep Vein Thrombosis/Pulmonary Embolism Present on Admission: No _ (1) Acute renal failure Qualifiers: Acute renal failure type: (2) Anemia Qualifiers: Anemia type: due to chronic kidney disease Iron deficiency anemia type: Vitamin B12 deficiency anemia type: Folate deficiency anemia type: Bone marrow failure anemia type: Hemolytic anemia type: Other causes of anemia: Chronic kidney disease stage: (3) Hypertension Qualifiers: Hypertension type: (4) Diabetes Qualifiers: Diabetes mellitus type: Diabetes mellitus retirement insulin use: Diabetes mellitus complication status: Diabetes mellitus complication detail: Diabetic retinopathy severity: Proliferative retinopathy type: Diabetes mellitus macular edema: Laterality: Chronic kidney disease stage:
--- NOTE | 2018-03-27 17:13 | P.PNNP ---
Subjective Interval history: Seen in AM. Sitting up in chair. No acute complaints. No new labs. <Smiley Barth - Last Filed: 03/27/18 17:10> Physical Exam Vital signs: Vital Signs 03/26/18 20:00 03/26/18 20:58 03/27/18 01:12 Temperature 98.4 F 98.4 F Pulse Rate 69 72 77 Respiratory Rate 20 20 Blood Pressure 115/71 117/73 Pulse Oximetry 98 93 L 03/27/18 05:49 03/27/18 08:00 03/27/18 11:15 Temperature 98.2 F 98.1 F 98.2 F Pulse Rate 72 68 77 Respiratory Rate 20 14 Blood Pressure 128/71 135/68 115/78 Pulse Oximetry 94 L 94 L 97 Intake & Output 03/26/18 03/27/18 03/27/18 18:59 06:59 18:59 Intake Total 1000 / 1000 Output Total 1999 / 1999 600 / 600 Balance -1000 / -1000 -600 / -600 Intake: IV 1000 / 1000 NS Inj 1,000 ML @ As Directed 1000 / 1000 OTHER .Q0M PRN Rx#:[id number] Output: Urine 0 / 0 600 / 600 Hemodialysis Amount 1999 Other: Date of Last Bowel Movement 03/26/18 03/26/18 03/26/18 # Bowel Movements 1 Narrative: GENERAL: Well-nourished, well-developed middle-aged male patient in [facility]. SKIN: Warm and dry. No rash. Right anterior chest with dialysis catheter, no surrounding erythema. HEENT: Normocephalic. Atraumatic. Mucous membranes pink and moist. CARDIOVASCULAR: Regular rate and rhythm. RESPIRATORY: No accessory muscle use. Clear to auscultation. Breath sounds equal bilaterally. GASTROINTESTINAL: Abdomen soft, non-tender, nondistended. Normoactive bowel sounds x4. MUSCULOSKELETAL: No obvious deformities. Extremities without clubbing, cyanosis , or edema. NEUROLOGICAL: Awake and alert. No obvious cranial nerve deficits. Moving all extremities spontaneously. Normal speech. - Urinary Catheter Management Indwelling Temp Sensing Catheter Cath placed during this visit: yes, but has since been removed by the nurse Reason for continuing: Decision to DC catheter Insertion date: 01/14/18 Insertion time: 22:00 Removal date: 01/21/18 Removal time: 18:00 Straight Cath placed during this visit: yes, but has since been removed by the nurse Reason for continuing: Acute urinary retention Insertion date: 03/16/18 Insertion time: 00:50 Removal date: 03/01/18 Removal time: 23:30 <Smiley Barth - Last Filed: 03/27/18 17:10> Vital signs: Vital Signs 03/27/18 01:12 03/27/18 05:49 03/27/18 08:00 Temperature 98.4 F 98.2 F 98.1 F Pulse Rate 77 72 68 Respiratory Rate 20 20 14 Blood Pressure 117/73 128/71 135/68 Pulse Oximetry 93 L 94 L 94 L 03/27/18 11:15 03/27/18 16:30 03/27/18 20:16 Temperature 98.2 F 98.2 F 97.7 F Pulse Rate 77 80 90 Respiratory Rate 20 18 Blood Pressure 115/78 125/80 120/81 Pulse Oximetry 97 99 97 Intake & Output 03/27/18 03/27/18 03/28/18 06:59 18:59 06:59 Output Total 600 / 600 250 / 250 Balance -600 / -600 -250 / -250 Output: Urine 600 / 600 250 / 250 Other: Date of Last Bowel Movement 03/26/18 03/26/18 # Bowel Movements 1 - Urinary Catheter Management Indwelling Temp Sensing Catheter Cath placed during this visit: no Straight Cath placed during this visit: no <Brianna Blevins - Last Filed: 03/27/18 21:35> Assessment and Plan - Assessment (1) Acute renal failure Code(s): N17.9 - Acute kidney failure, unspecified Status: Acute Plan: Remains dialysis dependent at this time. 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 Medications should be adjusted for the patient's estimated GFR if clinically indicated. Avoid agents with significant potential for nephrotoxicity possible including NSAIDs for analgesia, iodine contrast agents. Gadolinium is contraindicated if the GFR is below 30. Monitor UOP and electrolytes. HD on Some improvement noted in Creatinine yesterday at 4.11 from 6.94 HD tomorrow, labs with dialysis (2) Anemia Code(s): D64.9 - Anemia, unspecified Status: Acute Qualifiers: Anemia type: due to chronic kidney disease Plan: Epogen with dialysis. HGB stable (3) Hypertension Code(s): I10 - Essential (primary) hypertension Status: Acute Plan: Well controlled, will monitor. (4) Diabetes Code(s): E11.9 - Type 2 diabetes mellitus without complications Status: Acute Plan: Maintain blood sugars between 140 mg /dl to 180 mg/dl while hospitalized. Well controlled. <Smiley Barth - Last Filed: 03/27/18 17:10> - Assessment (1) Acute renal failure Code(s): N17.9 - Acute kidney failure, unspecified Status: Acute Plan: Patient seen and examined, agree with above. Patient with SHERITA, Creatinine was slightly better yesterday. Watch for renal recovery. (2) Anemia Code(s): D64.9 - Anemia, unspecified Status: Acute Qualifiers: Anemia type: due to chronic kidney disease (3) Hypertension Code(s): I10 - Essential (primary) hypertension Status: Acute (4) Diabetes Code(s): E11.9 - Type 2 diabetes mellitus without complications Status: Acute <Brianna Blevins - Last Filed: 03/27/18 21:35>
[2018-03-27] MEDS: QUEtiapine 25 MG Tablet PO SCH (21:08)
[2018-03-28] MEDS: Levothyroxine 88 MCG Tablet PO SCH (06:04)
[2018-03-28 06:27] LABS: Baso # (Auto) 0.1 th/mm3 (0.0-0.2); Baso % (Auto) 1.1 % (0.0-2.0); Eos # (Auto) 0.3 th/mm3 (0.0-0.4); Eos % (Auto) 3.8 % (0.0-4.0); Hematocrit 33.7 % (39.0-51.0); Hemoglobin 10.8 gm/dL (13.0-17.0); Lymph # (Auto) 1.5 th/mm3 (1.0-4.8); Lymph % (Auto) 17.4 % (9.0-44.0); Mean Corpuscular Hemoglobin 27.5 pg (27.0-34.0); Mean Corpuscular Volume 86.1 fL (80.0-100.0); Mean Platelet Volume 7.9 fL (7.0-11.0); Mono # (Auto) 0.6 th/mm3 (0.0-0.9); Mono % (Auto) 6.7 % (0.0-8.0); Neut # (Auto) 6.2 th/mm3 (1.8-7.7); Platelet Count 268 th/mm3 (150-450); Red Blood Count 3.91 mil/mm3 (4.50-5.90); Red Cell Distribution Width 16.1 % (11.6-17.2); White Blood Count 8.7 th/mm3 (4.0-11.0)
[2018-03-28 06:56] LABS: Albumin 2.6 g/dL (3.4-5.0); Calcium 9.4 mg/dL (8.5-10.1); Carbon Dioxide 30.1 meq/L (21.0-32.0); Phosphorus 4.3 mg/dL (2.5-4.9); Potassium 4.4 meq/L (3.5-5.1)
[2018-03-28] MEDS: levETIRAcetam 500 MG Tablet PO SCH ×2 (08:53→21:48)
[2018-03-28] MEDS: Carvedilol 6.25 MG Tablet PO SCH ×2 (08:53→21:48)
[2018-03-28] MEDS: Gabapentin 100 MG Capsule PO SCH ×2 (08:54→13:11)
[2018-03-28] MEDS: Senna/Docusate Sodium 8.6/50 MG Tablet PO SCH ×2 (08:54→21:48)
[2018-03-28] MEDS: amLODIPine 5 MG Tablet PO SCH (08:54)
[2018-03-28] MEDS: Folic Acid 1 MG Tablet PO SCH (08:55)
--- NOTE | 2018-03-28 09:10 | P.PNNP ---
Subjective Interval history: Seen during dialysis. Denies any shortness of breath, chest pain, nausea, or vomiting. Creatinine elevated at 5.8. <LarySmiley - Last Filed: 03/28/18 09:03> Physical Exam Vital signs: Vital Signs 03/27/18 11:15 03/27/18 16:30 03/27/18 20:16 Temperature 98.2 F 98.2 F 97.7 F Pulse Rate 77 80 90 Respiratory Rate 20 18 Blood Pressure 115/78 125/80 120/81 Pulse Oximetry 97 99 97 03/28/18 00:27 03/28/18 04:29 03/28/18 08:10 Temperature 97.6 F 97.6 F 97.6 F Pulse Rate 62 69 65 Respiratory Rate 18 18 20 Blood Pressure 142/77 H 142/80 H 160/86 H Pulse Oximetry 97 96 97 Intake & Output 03/27/18 03/28/18 03/28/18 18:59 06:59 18:59 Output Total 250 / 250 125 / 125 Balance -250 / -250 -125 / -125 Output: Urine 250 / 250 125 / 125 Other: Date of Last Bowel Movement 03/26/18 03/26/18 03/26/18 Narrative: GENERAL: Well-nourished, well-developed middle-aged male patient in [facility]. SKIN: Warm and dry. No rash. Right anterior chest with dialysis catheter, no surrounding erythema. HEENT: Normocephalic. Atraumatic. Mucous membranes pink and moist. CARDIOVASCULAR: Regular rate and rhythm. RESPIRATORY: No accessory muscle use. Clear to auscultation. Breath sounds equal bilaterally. GASTROINTESTINAL: Abdomen soft, non-tender, nondistended. Normoactive bowel sounds x4. MUSCULOSKELETAL: No obvious deformities. Extremities without clubbing, cyanosis , or edema. NEUROLOGICAL: Awake and alert. No obvious cranial nerve deficits. Moving all extremities spontaneously. Normal speech. - Urinary Catheter Management Indwelling Temp Sensing Catheter Cath placed during this visit: yes, but has since been removed by the nurse Reason for continuing: Decision to DC catheter Insertion date: 01/14/18 Insertion time: 22:00 Removal date: 01/21/18 Removal time: 18:00 Straight Cath placed during this visit: yes, but has since been removed by the nurse Reason for continuing: Acute urinary retention Insertion date: 03/16/18 Insertion time: 00:50 Removal date: 03/01/18 Removal time: 23:30 <Smiley Barth - Last Filed: 03/28/18 09:03> Vital signs: Vital Signs 03/28/18 00:27 03/28/18 04:29 03/28/18 08:10 Temperature 97.6 F 97.6 F 97.6 F Pulse Rate 62 69 65 Respiratory Rate 18 18 20 Blood Pressure 142/77 H 142/80 H 160/86 H Pulse Oximetry 97 96 97 03/28/18 17:02 Temperature 98.1 F Pulse Rate 93 H Respiratory Rate 20 Blood Pressure 118/76 Pulse Oximetry 98 Intake & Output 03/28/18 03/28/18 03/29/18 06:59 18:59 06:59 Output Total 125 / 125 1999 Balance -125 / -125 -1999 Output: Urine 125 / 125 Hemodialysis Amount 1999 Other: Date of Last Bowel Movement 03/26/18 03/26/18 - Urinary Catheter Management Indwelling Temp Sensing Catheter Cath placed during this visit: no Straight Cath placed during this visit: no <Brianna Blevins - Last Filed: 03/28/18 20:19> Assessment and Plan - Assessment (1) Acute renal failure Code(s): N17.9 - Acute kidney failure, unspecified Status: Acute Plan: Remains dialysis dependent at this time. First HD 01/17/18 , RIJ PermCath placed 02/08/18 HD on Per renal biopsy patient has ATN and cast Nephropathy, due to Rhabdo. Medications should be adjusted for the patient's estimated GFR if clinically indicated. Avoid agents with significant potential for nephrotoxicity possible including NSAIDs for analgesia, iodine contrast agents. Gadolinium is contraindicated if the GFR is below 30. Monitor UOP and electrolytes. Seen during hemodialysis will remove fluid as tolerated. Creatinine increased today at 5.8 Will continue to monitor and watch for renal recovery (2) Anemia Code(s): D64.9 - Anemia, unspecified Status: Acute Qualifiers: Anemia type: due to chronic kidney disease Plan: Epogen with dialysis. HGB stable (3) Hypertension Code(s): I10 - Essential (primary) hypertension Status: Acute Plan: Well controlled, will monitor. (4) Diabetes Code(s): E11.9 - Type 2 diabetes mellitus without complications Status: Acute Plan: Maintain blood sugars between 140 mg /dl to 180 mg/dl while hospitalized. Well controlled. <Smiley Barth - Last Filed: 03/28/18 09:03> - Assessment (1) Acute renal failure Code(s): N17.9 - Acute kidney failure, unspecified Status: Acute Plan: Patient seen during HD and examined, agree with above. Watch for renal recovery. HD to continue TTS. (2) Anemia Code(s): D64.9 - Anemia, unspecified Status: Acute Qualifiers: Anemia type: due to chronic kidney disease (3) Hypertension Code(s): I10 - Essential (primary) hypertension Status: Acute (4) Diabetes Code(s): E11.9 - Type 2 diabetes mellitus without complications Status: Acute <Brianna Blevins - Last Filed: 03/28/18 20:19>
[2018-03-28] MEDS: Heparin 10,000 UNITS/10 ML Vial (for IV use) OTHER PRN (12:28)
--- NOTE | 2018-03-28 14:38 | P.PNIM ---
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 Patient seen and examined sitting in the chair, physical therapy in the room reported just walk in the hallway without any difficulty. Patient also just got back from dialysis patient stated he is feeling better today without any distress and dialysis. Patient denies any pain at this time. Patient stated that he did not feel any coldness in dialysis today. Denies any numbness and tingling in the left arm at this time. No pain or coldness. Patient denies any headache or dizziness, denies any chest pain or shortness of breath, denies any abdominal pain, nausea, vomiting, diarrhea or constipation. Patient denies any fever or chills. Patient states that his been getting ready to go home, states that he had to house S[address] in [facility] and one in [place]. However he wanted to go home in [place], his is moving back with him, and stated he will get a caregiver. Patient stated he is just waiting with the insurance can provide for him, stated he needed a hospital bed. Discussed with nursing and child welfare caseworker Physical Exam Vital signs: Vital Signs 03/27/18 16:30 03/27/18 20:16 03/28/18 00:27 Temperature 98.2 F 97.7 F 97.6 F Pulse Rate 80 90 62 Respiratory Rate 20 18 18 Blood Pressure 125/80 120/81 142/77 H Pulse Oximetry 99 97 97 03/28/18 04:29 03/28/18 08:10 Temperature 97.6 F 97.6 F Pulse Rate 69 65 Respiratory Rate 18 20 Blood Pressure 142/80 H 160/86 H Pulse Oximetry 96 97 Intake & Output 03/27/18 03/28/18 03/28/18 18:59 06:59 18:59 Output Total 250 / 250 125 / 125 1999 Balance -250 / -250 -125 / -125 -1999 Output: Urine 250 / 250 125 / 125 Hemodialysis Amount 1999 Other: Date of Last Bowel Movement 03/26/18 03/26/18 03/26/18 Narrative: GENERAL: Well-developed, well-nourished, male in no acute distress SKIN: Warm and dry. Right subclavian AV graft intact HEAD: Atraumatic. Normocephalic. EYES: Pupils equal and round. No scleral icterus. No injection or drainage. ENT: No nasal bleeding or discharge. Mucous membranes pink and moist. NECK: Trachea midline. No JVD. CARDIOVASCULAR: Regular rate and rhythm. RESPIRATORY: No accessory muscle use. Clear to auscultation. Breath sounds equal bilaterally. GASTROINTESTINAL: Abdomen obese soft, non-tender, nondistended. Hepatic and splenic margins not palpable. MUSCULOSKELETAL: Extremities without clubbing, cyanosis. Bilateral lower extremity with trace edema no obvious deformities. NEUROLOGICAL: Awake and alert. No obvious cranial nerve deficits. Generalized weakness, moving all 4 extremities normal speech. PSYCHIATRIC: Flat mood and affect; insight and judgment poor. Urinary Catheter Management Indwelling Temp Sensing Catheter: Cath placed during this visit: yes, but has since been removed by the nurse Reason for continuing: Decision to DC catheter Insertion date: 01/14/18 Insertion time: 22:00 Removal date: 01/21/18 Removal time: 18:00 Straight: Cath placed during this visit: yes, but has since been removed by the nurse Reason for continuing: Acute urinary retention Insertion date: 03/16/18 Insertion time: 00:50 Removal date: 03/01/18 Removal time: 23:30 Results Labs CBC & Chem 7: 03/28/18 05:52 03/28/18 05:52 Procedures Procedures: Left IJ HD tunneled cath placed 02/08/18 by IR Assessment and Plan (1) Acute renal failure: Code(s): N17.9 - Acute kidney failure, unspecified Status: Acute (2) Anemia: Code(s): D64.9 - Anemia, unspecified Status: Acute (3) Hypertension: Code(s): I10 - Essential (primary) hypertension Status: Acute (4) Diabetes: Code(s): E11.9 - Type 2 diabetes mellitus without complications Status: Acute Plan 62-year-old white male who was admitted with cardiogenic shock and acute respiratory failure requiring CPR and epinephrine in the field, after being found down at home and being witnessed to possibly have undergone seizure-like activity. Intubation was attempted in the field but were unable to do so, patient was ultimately intubated in the hospital, started on pressors, placed in the ICU on mechanical ventilation. Found to have bilateral pneumothoraces with chest tubes placed, had developed some pneumoperitoneum which surgically deemed might have been a leak from his chest tubes as opposed to an acute surgical abdomen. Patient was started on antibiotics empirically for possible aspiration pneumonia but was ultimately discontinued off of them by infectious disease. Developed rhabdomyolysis with worsening acute renal failure which became sustained, with the patient now undergoing dialysis. Ultimately was discontinued off pressors, cardiology deferred heart cath due to renal failure. Patient had difficulty following commands after he was discontinued off of sedation and after extubation. Had an MRI done on 01/17 which showed no acute findings, only an older right parietal CVA. EEG was done which was unremarkable. End-stage renal disease Normocytic Anemia, s/p blood transfusion -on hemodialysis M-W- -Nephrology following. Patient will likely need permanent dialysis. 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 Remains afebrile. WBCs WNL. -Repeat complaint of dysuria; new UA ordered 03/25 mixed gram positive eduardo -Urology following: to f/u with Dr Ferraro as an outpatient -patient now urinating spontaneously, no further retention, pt voiding better Anxiety and agitated behaviors; questionable decision-making ability -Psychiatry consulted: Patient has decision-making capacity to participate medical decisions at this moment. -Continue patient's seroquel -mental status improving Acute on chronic pain Peripheral neuropathy, left arm numbness and tingling -New PRN Percocet for pain management with bowel regimen, goal is to wean and DC narcotics -E-forcse reviewed-patient was not on chronic narcotic pain medication prior to admission. -Discontinue gabapentin, due to renal failure -Denies any pain today, denies any numbness or tingling on the left arm today. 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 Possible anoxic brain injury Dysphagia related to encephalopathy -Neurology following : Ok to get out of bed per Neurology with assistance -PT/OT/ST -ST rec mechanical soft, thin liquid diet -tolerating PO diet Possible seizure -Continue Keppra -EEG was negative NSTEMI -Troponins 0.52, 1.89, 2.37 -Cardiology consulted, recommended conservative medical management -Continue ASA, Coreg, Isosorbide, amlodipine and atorvastatin -No chest pain no shortness of breath Acute respiratory failure Bilateral pneumothoraces - stable, Chest tube removed 01/28/18 Pneumomediastinum Pneumoperitoneum with right retroperitoneal gas around the right kidney -Likely secondary to bilateral pneumothoraces with no surgical intervention warranted per general surgery -Continue supplemental O2 PRN -Pulmonary following -O2 sat currently stable on room air Cirrhosis -Likely secondary to alcohol abuse -Continue BB Type II diabetes mellitus -not on any medication -Not needing sliding scale coverage; frequently refusing 5 units Levemir at night -monitor daily blood glucose with insulin SS coverage Hypothyroidism -Continue Synthroid GI ppx: Protonix PO DVT ppx: Heparin SQ Discharge Planning: Patient has remained dialysis dependent. Case management is aware of the possible need for dialysis. No payor source. Will need placement. Patient stated his plan is to go home to his [place] home, his will move back with him and he will get a caregiver. Patient stated he has 2 houses one in [place] and one in [place], but he would like to move back to [facility]. Progress Note: Quality VTE Deep Vein Thrombosis/Pulmonary Embolism Present on Admission: No _ (1) Diabetes Qualifiers: Chronic kidney disease stage: Diabetes mellitus complication detail: Diabetes mellitus complication status: Diabetes mellitus residential insulin use : Diabetes mellitus macular edema: Diabetes mellitus type: Diabetic retinopathy severity: Laterality: Proliferative retinopathy type: (2) Acute renal failure Qualifiers: Acute renal failure type: (3) Anemia Qualifiers: Anemia type: due to chronic kidney disease Bone marrow failure anemia type: Chronic kidney disease stage: Folate deficiency anemia type: Hemolytic anemia type: Iron deficiency anemia type: Other causes of anemia: Vitamin B12 deficiency anemia type: (4) Hypertension Qualifiers: Hypertension type:
[2018-03-28] MEDS: QUEtiapine 25 MG Tablet PO SCH (21:48)
[2018-03-29] MEDS: Levothyroxine 88 MCG Tablet PO SCH (06:42)
[2018-03-29] MEDS: Senna/Docusate Sodium 8.6/50 MG Tablet PO SCH ×2 (09:10→21:47)
[2018-03-29] MEDS: amLODIPine 10 MG Tablet PO SCH (09:10)
[2018-03-29] MEDS: Folic Acid 1 MG Tablet PO SCH (09:10)
[2018-03-29] MEDS: levETIRAcetam 500 MG Tablet PO SCH ×2 (09:10→21:47)
[2018-03-29] MEDS: Carvedilol 6.25 MG Tablet PO SCH ×2 (09:11→21:50)
--- NOTE | 2018-03-29 12:49 | P.PNIM ---
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 Patient complains of food being cold and do not have syrup in his porridge. Patient denies any pain or shortness of breath at this time, denies any headache or dizziness, denies any abdominal pain, nausea, vomiting, diarrhea or constipation. Patient denies any fever or chills. Discussed activity with physical therapy patient up in the chair more. Physical Exam Vital signs: Vital Signs 03/28/18 17:02 03/28/18 20:00 03/29/18 00:00 Temperature 98.1 F 98.9 F 98.7 F Pulse Rate 93 H 82 92 H Respiratory Rate 20 18 18 Blood Pressure 118/76 139/75 100/62 Pulse Oximetry 98 96 95 03/29/18 03:30 03/29/18 04:00 03/29/18 08:00 Temperature 98.4 F Pulse Rate 80 Respiratory Rate 16 20 16 Blood Pressure 124/63 Pulse Oximetry 95 03/29/18 08:03 Temperature 98.2 F Pulse Rate 68 Respiratory Rate 18 Blood Pressure 147/96 H Pulse Oximetry 96 Intake & Output 03/28/18 03/29/18 03/29/18 18:59 06:59 18:59 Output Total 1999 700 / 700 Balance -2000 / -2000 -700 / -700 Weight 133.1 kg Output: Urine 700 / 700 Hemodialysis Amount 1999 Other: Date of Last Bowel Movement 03/26/18 03/28/18 03/26/18 Narrative: GENERAL: Well-developed, well-nourished, male in no acute distress SKIN: Warm and dry. Right subclavian AV graft intact HEAD: Atraumatic. Normocephalic. EYES: Pupils equal and round. No scleral icterus. No injection or drainage. ENT: No nasal bleeding or discharge. Mucous membranes pink and moist. NECK: Trachea midline. No JVD. CARDIOVASCULAR: Regular rate and rhythm. RESPIRATORY: No accessory muscle use. Clear to auscultation. Breath sounds equal bilaterally. GASTROINTESTINAL: Abdomen obese soft, non-tender, nondistended. Hepatic and splenic margins not palpable. MUSCULOSKELETAL: Extremities without clubbing, cyanosis. Bilateral lower extremity with trace edema no obvious deformities. NEUROLOGICAL: Awake and alert. No obvious cranial nerve deficits. Generalized weakness, moving all 4 extremities normal speech. PSYCHIATRIC: Flat mood and affect; insight and judgment poor. Urinary Catheter Management Indwelling Temp Sensing Catheter: Cath placed during this visit: yes, but has since been removed by the nurse Reason for continuing: Decision to DC catheter Insertion date: 01/14/18 Insertion time: 22:00 Removal date: 01/21/18 Removal time: 18:00 Straight: Cath placed during this visit: yes, but has since been removed by the nurse Reason for continuing: Acute urinary retention Insertion date: 03/16/18 Insertion time: 00:50 Removal date: 03/01/18 Removal time: 23:30 Results Labs CBC & Chem 7: 03/28/18 05:52 03/28/18 05:52 Procedures Procedures: Left IJ HD tunneled cath placed 02/08/18 by IR Assessment and Plan (1) Acute renal failure: Code(s): N17.9 - Acute kidney failure, unspecified Status: Acute (2) Anemia: Code(s): D64.9 - Anemia, unspecified Status: Acute (3) Hypertension: Code(s): I10 - Essential (primary) hypertension Status: Acute (4) Diabetes: Code(s): E11.9 - Type 2 diabetes mellitus without complications Status: Acute Plan 62-year-old white male who was admitted with cardiogenic shock and acute respiratory failure requiring CPR and epinephrine in the field, after being found down at home and being witnessed to possibly have undergone seizure-like activity. Intubation was attempted in the field but were unable to do so, patient was ultimately intubated in the hospital, started on pressors, placed in the ICU on mechanical ventilation. Found to have bilateral pneumothoraces with chest tubes placed, had developed some pneumoperitoneum which surgically deemed might have been a leak from his chest tubes as opposed to an acute surgical abdomen. Patient was started on antibiotics empirically for possible aspiration pneumonia but was ultimately discontinued off of them by infectious disease. Developed rhabdomyolysis with worsening acute renal failure which became sustained, with the patient now undergoing dialysis. Ultimately was discontinued off pressors, cardiology deferred heart cath due to renal failure. Patient had difficulty following commands after he was discontinued off of sedation and after extubation. Had an MRI done on 01/17 which showed no acute findings, only an older right parietal CVA. EEG was done which was unremarkable. End-stage renal disease Normocytic Anemia, s/p blood transfusion -on hemodialysis -- -Nephrology following. Patient will likely need permanent dialysis. 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 Remains afebrile. WBCs WNL. -Repeat complaint of dysuria; new UA ordered 03/25 mixed gram positive eduardo -Urology following: to f/u with Dr Ferraro as an outpatient -patient now urinating spontaneously, no further retention, pt voiding better Anxiety and agitated behaviors; questionable decision-making ability -Psychiatry consulted: Patient has decision-making capacity to participate medical decisions at this moment. -Continue patient's seroquel -mental status improving Acute on chronic pain Peripheral neuropathy, left arm numbness and tingling -New PRN Percocet for pain management with bowel regimen, goal is to wean and DC narcotics -E-forcse reviewed-patient was not on chronic narcotic pain medication prior to admission. -Discontinue gabapentin, due to renal failure -Denies any pain today, denies any numbness or tingling on the left arm today. 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 Possible anoxic brain injury Dysphagia related to encephalopathy -Neurology following : Ok to get out of bed per Neurology with assistance -PT/OT/ST -ST rec mechanical soft, thin liquid diet -tolerating PO diet Possible seizure -Continue Keppra -EEG was negative NSTEMI -Troponins 0.52, 1.89, 2.37 -Cardiology consulted, recommended conservative medical management -Continue ASA, Coreg, Isosorbide, amlodipine and atorvastatin -No chest pain no shortness of breath Acute respiratory failure Bilateral pneumothoraces - stable, Chest tube removed 01/28/18 Pneumomediastinum Pneumoperitoneum with right retroperitoneal gas around the right kidney -Likely secondary to bilateral pneumothoraces with no surgical intervention warranted per general surgery -Continue supplemental O2 PRN -Pulmonary following -O2 sat currently stable on room air Cirrhosis -Likely secondary to alcohol abuse -Continue BB Type II diabetes mellitus -not on any medication -Not needing sliding scale coverage; frequently refusing 5 units Levemir at night -monitor daily blood glucose with insulin SS coverage -Blood sugar fair controlled, on diabetic diet Hypothyroidism -Continue Synthroid -monitor TSH GI ppx: Protonix PO DVT ppx: Heparin SQ Discharge Planning: Patient has remained dialysis dependent. Case management is aware of the possible need for dialysis. No payor source. Will need placement. Patient stated his plan is to go home to his [place] home, his will move back with him and he will get a caregiver. Patient stated he has 2 houses one in [place] and one in [place], but he would like to move back to [facility]. Progress Note: Quality VTE Deep Vein Thrombosis/Pulmonary Embolism Present on Admission: No _ (1) Acute renal failure Qualifiers: Acute renal failure type: (2) Anemia Qualifiers: Anemia type: due to chronic kidney disease Iron deficiency anemia type: Vitamin B12 deficiency anemia type: Folate deficiency anemia type: Bone marrow failure anemia type: Hemolytic anemia type: Other causes of anemia: Chronic kidney disease stage: (3) Hypertension Qualifiers: Hypertension type: (4) Diabetes Qualifiers: Diabetes mellitus type: Diabetes mellitus mcc insulin use: Diabetes mellitus complication status: Diabetes mellitus complication detail: Diabetic retinopathy severity: Proliferative retinopathy type: Diabetes mellitus macular edema: Laterality: Chronic kidney disease stage:
--- NOTE | 2018-03-29 14:52 | P.PNNP ---
Subjective Interval history: Sitting up in chair. No SOB, nausea, or vomiting. Requesting to not have Renal diet. <Smiley Barth - Last Filed: 03/29/18 14:49> Physical Exam Vital signs: Vital Signs 03/28/18 17:02 03/28/18 20:00 03/29/18 00:00 Temperature 98.1 F 98.9 F 98.7 F Pulse Rate 93 H 82 92 H Respiratory Rate 20 18 18 Blood Pressure 118/76 139/75 100/62 Pulse Oximetry 98 96 95 03/29/18 03:30 03/29/18 04:00 03/29/18 08:00 Temperature 98.4 F Pulse Rate 80 Respiratory Rate 16 20 16 Blood Pressure 124/63 Pulse Oximetry 95 03/29/18 08:03 03/29/18 12:15 Temperature 98.2 F 97.5 F L Pulse Rate 68 72 Respiratory Rate 18 18 Blood Pressure 147/96 H 107/60 Pulse Oximetry 96 96 Intake & Output 03/28/18 03/29/18 03/29/18 18:59 06:59 18:59 Output Total 1999 700 / 700 Balance -1999 / -2000 -700 / -700 Weight 133.1 kg Output: Urine 700 / 700 Hemodialysis Amount 1999 Other: Date of Last Bowel Movement 03/26/18 03/28/18 03/26/18 Narrative: GENERAL: Well-nourished, well-developed middle-aged male patient in [facility]. SKIN: Warm and dry. No rash. Right anterior chest with dialysis catheter, no surrounding erythema. HEENT: Normocephalic. Atraumatic. Mucous membranes pink and moist. CARDIOVASCULAR: Regular rate and rhythm. RESPIRATORY: No accessory muscle use. Clear to auscultation. Breath sounds equal bilaterally. GASTROINTESTINAL: Abdomen soft, non-tender, nondistended. Normoactive bowel sounds x4. MUSCULOSKELETAL: No obvious deformities. Extremities without clubbing, cyanosis , or edema. NEUROLOGICAL: Awake and alert. No obvious cranial nerve deficits. Moving all extremities spontaneously. Normal speech. - Urinary Catheter Management Indwelling Temp Sensing Catheter Cath placed during this visit: yes, but has since been removed by the nurse Reason for continuing: Decision to DC catheter Insertion date: 01/14/18 Insertion time: 22:00 Removal date: 01/21/18 Removal time: 18:00 Straight Cath placed during this visit: yes, but has since been removed by the nurse Reason for continuing: Acute urinary retention Insertion date: 03/16/18 Insertion time: 00:50 Removal date: 03/01/18 Removal time: 23:30 <Smiley Barth - Last Filed: 03/29/18 14:49> Vital signs: Vital Signs 03/29/18 00:00 03/29/18 03:30 03/29/18 04:00 Temperature 98.7 F 98.4 F Pulse Rate 92 H 80 Respiratory Rate 18 16 20 Blood Pressure 100/62 124/63 Pulse Oximetry 95 95 03/29/18 08:00 03/29/18 08:03 03/29/18 12:15 Temperature 98.2 F 97.5 F L Pulse Rate 68 72 Respiratory Rate 16 18 18 Blood Pressure 147/96 H 107/60 Pulse Oximetry 96 96 03/29/18 16:17 03/29/18 16:44 Temperature 97.4 F L Pulse Rate 63 65 Respiratory Rate 20 Blood Pressure 127/72 Pulse Oximetry 98 Intake & Output 03/29/18 03/29/18 03/30/18 06:59 18:59 06:59 Output Total 700 / 700 1200 / 1200 Balance -700 / -700 -1200 / -1200 Weight 133.1 kg Output: Urine 700 / 700 1200 / 1200 Other: # Voids 6 Date of Last Bowel Movement 03/28/18 03/26/18 - Urinary Catheter Management Indwelling Temp Sensing Catheter Cath placed during this visit: no Straight Cath placed during this visit: no <Brianna Blevins - Last Filed: 03/29/18 21:57> Assessment and Plan - Assessment (1) Acute renal failure Code(s): N17.9 - Acute kidney failure, unspecified Status: Acute Plan: Remains dialysis dependent at this time. First HD 01/17/18 , TIMOTEO Gamble placed 02/08/18 HD on Per renal biopsy patient has ATN and cast Nephropathy, due to Rhabdo. Medications should be adjusted for the patient's estimated GFR if clinically indicated. Avoid agents with significant potential for nephrotoxicity possible including NSAIDs for analgesia, iodine contrast agents. Gadolinium is contraindicated if the GFR is below 30. Monitor UOP and electrolytes. HD yesterday with removal of 2 liters Will continue to monitor and watch for renal recovery HD tomorrow. (2) Anemia Code(s): D64.9 - Anemia, unspecified Status: Acute Qualifiers: Anemia type: due to chronic kidney disease Plan: Epogen with dialysis. HGB stable (3) Hypertension Code(s): I10 - Essential (primary) hypertension Status: Acute Plan: Well controlled, will monitor. (4) Diabetes Code(s): E11.9 - Type 2 diabetes mellitus without complications Status: Acute Plan: Maintain blood sugars between 140 mg /dl to 180 mg/dl while hospitalized. Well controlled. <Smiley Barth - Last Filed: 03/29/18 14:49> - Assessment (1) Acute renal failure Code(s): N17.9 - Acute kidney failure, unspecified Status: Acute Plan: Patient seen and examined, agree with above. Still has no improvement in the Creatinine. D/W the case monitor, to arrange out patient HD. If no improvement by next week, will start working for possible End stage renal disease. (2) Anemia Code(s): D64.9 - Anemia, unspecified Status: Acute Qualifiers: Anemia type: due to chronic kidney disease (3) Hypertension Code(s): I10 - Essential (primary) hypertension Status: Acute (4) Diabetes Code(s): E11.9 - Type 2 diabetes mellitus without complications Status: Acute <Brianna Blevins - Last Filed: 03/29/18 21:57>
[2018-03-29] MEDS: QUEtiapine 25 MG Tablet PO SCH (21:47)
[2018-03-30] MEDS: Levothyroxine 88 MCG Tablet PO SCH (05:28)
[2018-03-30] MEDS: Heparin 10,000 UNITS/10 ML Vial (for IV use) OTHER PRN (11:21)
--- NOTE | 2018-03-30 12:18 | P.PNNP ---
Subjective Interval history: Patient seen during hemodialysis doing well Physical Exam Vital signs: Vital Signs 03/29/18 16:17 03/29/18 16:44 03/29/18 20:00 Temperature 97.4 F L 98.4 F Pulse Rate 63 65 79 Respiratory Rate 20 20 Blood Pressure 127/72 137/84 Pulse Oximetry 98 96 03/30/18 00:00 03/30/18 04:00 03/30/18 07:59 Temperature 98.7 F 98.6 F 98.1 F Pulse Rate 70 70 66 Respiratory Rate 18 18 16 Blood Pressure 118/62 116/64 161/86 H Pulse Oximetry 95 96 98 Intake & Output 03/29/18 03/30/18 03/30/18 18:59 06:59 18:59 Intake Total 120 / 120 Output Total 1200 / 1200 740 / 740 1999 Balance -1200 / -1200 -740 / -740 -1880 / -1880 Weight 115 kg Intake: Oral 120 / 120 Output: Urine 1200 / 1200 740 / 740 Hemodialysis Amount 1999 Other: # Voids 6 # Incontinent Voids 1 Date of Last Bowel Movement 03/26/18 03/29/18 Narrative: GENERAL: Well-nourished, well-developed middle-aged male patient in [facility]. SKIN: Warm and dry. No rash. Right anterior chest with dialysis catheter, no surrounding erythema. HEENT: Normocephalic. Atraumatic. Mucous membranes pink and moist. CARDIOVASCULAR: Regular rate and rhythm. RESPIRATORY: No accessory muscle use. Clear to auscultation. Breath sounds equal bilaterally. GASTROINTESTINAL: Abdomen soft, non-tender, nondistended. Normoactive bowel sounds x4. MUSCULOSKELETAL: No obvious deformities. Extremities without clubbing, cyanosis , or edema. NEUROLOGICAL: Awake and alert. No obvious cranial nerve deficits. Moving all extremities spontaneously. Normal speech. - Urinary Catheter Management Indwelling Temp Sensing Catheter Cath placed during this visit: yes, but has since been removed by the nurse Reason for continuing: Decision to DC catheter Insertion date: 01/14/18 Insertion time: 22:00 Removal date: 01/21/18 Removal time: 18:00 Straight Cath placed during this visit: yes, but has since been removed by the nurse Reason for continuing: Acute urinary retention Insertion date: 03/16/18 Insertion time: 00:50 Removal date: 03/01/18 Removal time: 23:30 Assessment and Plan - Assessment (1) Acute renal failure Code(s): N17.9 - Acute kidney failure, unspecified Status: Acute Plan: Patient is dependent on hemodialysis with acute renal failure/rhabdomyolysis/ ATN with no recovery Continue hemodialysis 3 times a week Seen during hemodialysis today at 2 L of ultrafiltration on 3K bath tolerating it well will start working for possible End stage renal disease. Discussed with Dr. Blevins that he has ATN with no recovery and we can plan to arrange outpatient hemodialysis. (2) Anemia Code(s): D64.9 - Anemia, unspecified Status: Acute Qualifiers: Anemia type: due to chronic kidney disease Plan: Epogen with dialysis. HGB stable (3) Hypertension Code(s): I10 - Essential (primary) hypertension Status: Acute Plan: Well controlled, will monitor. (4) Diabetes Code(s): E11.9 - Type 2 diabetes mellitus without complications Status: Acute Plan: Maintain blood sugars between 140 mg /dl to 180 mg/dl while hospitalized. Well controlled.
[2018-03-30] MEDS: Carvedilol 6.25 MG Tablet PO SCH ×2 (12:43→21:24)
[2018-03-30] MEDS: Folic Acid 1 MG Tablet PO SCH (12:44)
[2018-03-30] MEDS: levETIRAcetam 500 MG Tablet PO SCH ×2 (12:44→21:24)
[2018-03-30] MEDS: Senna/Docusate Sodium 8.6/50 MG Tablet PO SCH ×2 (12:44→21:24)
[2018-03-30] MEDS: amLODIPine 10 MG Tablet PO SCH (12:45)
--- NOTE | 2018-03-30 13:34 | P.PNIM ---
Subjective Interval history: Follow-up acute renal failure on hemodialysis, anemia, hypertension and diabetes mellitus type 2. Patient seen and examined laying in bed, just came back from hemodialysis patient complaint he was called during the dialysis. Also complained he is hungry waiting for his lunch tray. Patient denies any pain or any discomfort other than being cold. Patient denies any headache or dizziness, denies any chest pain or shortness of breath, abdominal pain, nausea, vomiting, diarrhea or constipation. Patient denies any fever or chills. Nurse denies any acute concerns overnight Physical Exam Vital signs: Vital Signs 03/29/18 16:17 03/29/18 16:44 03/29/18 20:00 Temperature 97.4 F L 98.4 F Pulse Rate 63 65 79 Respiratory Rate 20 20 Blood Pressure 127/72 137/84 Pulse Oximetry 98 96 03/30/18 00:00 03/30/18 04:00 03/30/18 07:59 Temperature 98.7 F 98.6 F 98.1 F Pulse Rate 70 70 66 Respiratory Rate 18 18 16 Blood Pressure 118/62 116/64 161/86 H Pulse Oximetry 95 96 98 Intake & Output 03/29/18 03/30/18 03/30/18 18:59 06:59 18:59 Intake Total 120 / 120 Output Total 1200 / 1200 740 / 740 1999 Balance -1200 / -1200 -740 / -740 -1880 / -1880 Weight 115 kg Intake: Oral 120 / 120 Output: Urine 1200 / 1200 740 / 740 Hemodialysis Amount 1999 Other: # Voids 6 # Incontinent Voids 1 Date of Last Bowel Movement 03/26/18 03/29/18 Narrative: GENERAL: Well-developed, well-nourished, male in no acute distress, lying in bed SKIN: Warm and dry. Right subclavian AV graft intact HEAD: Atraumatic. Normocephalic. EYES: Pupils equal and round. No scleral icterus. No injection or drainage. ENT: No nasal bleeding or discharge. Mucous membranes pink and moist. NECK: Trachea midline. No JVD. CARDIOVASCULAR: Regular rate and rhythm. RESPIRATORY: No accessory muscle use. Clear to auscultation. Breath sounds equal bilaterally. GASTROINTESTINAL: Abdomen obese soft, non-tender, nondistended. Hepatic and splenic margins not palpable. MUSCULOSKELETAL: Extremities without clubbing, cyanosis. Bilateral lower extremity with trace edema no obvious deformities. NEUROLOGICAL: Awake and alert. No obvious cranial nerve deficits. Generalized weakness, moving all 4 extremities normal speech. PSYCHIATRIC: Flat mood and affect; insight and judgment poor. Urinary Catheter Management Indwelling Temp Sensing Catheter: Cath placed during this visit: yes, but has since been removed by the nurse Reason for continuing: Decision to DC catheter Insertion date: 01/14/18 Insertion time: 22:00 Removal date: 01/21/18 Removal time: 18:00 Straight: Cath placed during this visit: yes, but has since been removed by the nurse Reason for continuing: Acute urinary retention Insertion date: 03/16/18 Insertion time: 00:50 Removal date: 03/01/18 Removal time: 23:30 Results Labs CBC & Chem 7: 03/28/18 05:52 03/28/18 05:52 Procedures Procedures: Left IJ HD tunneled cath placed 02/08/18 by IR Assessment and Plan (1) Acute renal failure: Code(s): N17.9 - Acute kidney failure, unspecified Status: Acute (2) Anemia: Code(s): D64.9 - Anemia, unspecified Status: Acute (3) Hypertension: Code(s): I10 - Essential (primary) hypertension Status: Acute (4) Diabetes: Code(s): E11.9 - Type 2 diabetes mellitus without complications Status: Acute Plan 62-year-old white male who was admitted with cardiogenic shock and acute respiratory failure requiring CPR and epinephrine in the field, after being found down at home and being witnessed to possibly have undergone seizure-like activity. Intubation was attempted in the field but were unable to do so, patient was ultimately intubated in the hospital, started on pressors, placed in the ICU on mechanical ventilation. Found to have bilateral pneumothoraces with chest tubes placed, had developed some pneumoperitoneum which surgically deemed might have been a leak from his chest tubes as opposed to an acute surgical abdomen. Patient was started on antibiotics empirically for possible aspiration pneumonia but was ultimately discontinued off of them by infectious disease. Developed rhabdomyolysis with worsening acute renal failure which became sustained, with the patient now undergoing dialysis. Ultimately was discontinued off pressors, cardiology deferred heart cath due to renal failure. Patient had difficulty following commands after he was discontinued off of sedation and after extubation. Had an MRI done on 01/17 which showed no acute findings, only an older right parietal CVA. EEG was done which was unremarkable. End-stage renal disease/acute renal disease on on HD Normocytic Anemia, s/p blood transfusion -on hemodialysis -- -Nephrology following. Plan for possible end-stage renal disease and to arrange for outpatient hemodialysis -R IJ permacath placement 02/08/18 -S/p renal biopsy per IR 03/07/18 -ATN and cast neuropathy due to rhabdo -continue Epogen with HD -Avoid nephrotoxins including NSAIDs, iodine and contrast agents -monitor BMP UTI with Urinary Retention Hematuria, improved -Patient with episode of urinary retention overnight 03/16, s/p straight cath -Bladder scan prn, straight cath if > 400cc or if patient symptomatic -Urine culture with Viridans streptococci; S/p antbx trt 03/23. Remains afebrile. WBCs WNL. -Repeat complaint of dysuria; new UA ordered 03/25 mixed gram positive eduardo -Urology following: to f/u with Dr Ferraro as an outpatient -patient now urinating spontaneously, no further retention, pt voiding better Anxiety and agitated behaviors - questionable decision-making ability -Psychiatry consulted: Patient has decision-making capacity to participate medical decisions at this moment. -Continue patient's seroquel -mental status improving Acute on chronic pain Peripheral neuropathy, left arm numbness and tingling -New PRN Percocet for pain management with bowel regimen, goal is to wean and DC narcotics -E-forcse reviewed-patient was not on chronic narcotic pain medication prior to admission. -Discontinue gabapentin, due to renal failure -Denies any pain today, denies any numbness or tingling on the left arm today. 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 Possible anoxic brain injury Dysphagia related to encephalopathy -Neurology following : Ok to get out of bed per Neurology with assistance -PT/OT/ST -ST rec mechanical soft, thin liquid diet -tolerating PO diet Possible seizure -Continue Keppra -EEG was negative NSTEMI -Troponins 0.52, 1.89, 2.37 -Cardiology consulted, recommended conservative medical management -Continue ASA, Coreg, Isosorbide, amlodipine and atorvastatin -No chest pain no shortness of breath Acute respiratory failure Bilateral pneumothoraces - stable, Chest tube removed 01/28/18 Pneumomediastinum Pneumoperitoneum with right retroperitoneal gas around the right kidney -Likely secondary to bilateral pneumothoraces with no surgical intervention warranted per general surgery -Continue supplemental O2 PRN -Pulmonary following -O2 sat currently stable on room air Cirrhosis -Likely secondary to alcohol abuse -Continue BB Type II diabetes mellitus -not on any medication -Not needing sliding scale coverage; frequently refusing 5 units Levemir at night -monitor daily blood glucose with insulin SS coverage -Blood sugar fair controlled, on diabetic diet Hypothyroidism -Continue Synthroid -monitor TSH GI ppx: Protonix PO DVT ppx: Heparin SQ Discharge Planning: Patient has remained dialysis dependent. Case management is aware of the possible need for dialysis. No payor source. Will need placement. Patient stated his plan is to go home to his [place] home, his will move back with him and he will get a caregiver. Patient stated he has 2 houses one in [place] and one in [place], but he would like to move back to [facility]. Progress Note: Quality VTE Deep Vein Thrombosis/Pulmonary Embolism Present on Admission: No _ (1) Acute renal failure Qualifiers: Acute renal failure type: (2) Anemia Qualifiers: Anemia type: due to chronic kidney disease Iron deficiency anemia type: Vitamin B12 deficiency anemia type: Folate deficiency anemia type: Bone marrow failure anemia type: Hemolytic anemia type: Other causes of anemia: Chronic kidney disease stage: (3) Hypertension Qualifiers: Hypertension type: (4) Diabetes Qualifiers: Diabetes mellitus type: Diabetes mellitus correction insulin use: Diabetes mellitus complication status: Diabetes mellitus complication detail: Diabetic retinopathy severity: Proliferative retinopathy type: Diabetes mellitus macular edema: Laterality: Chronic kidney disease stage:
[2018-03-30 16:11] LABS: Hematocrit 36.8 % (39.0-51.0); Hemoglobin 11.9 gm/dL (13.0-17.0); Mean Corpuscular HGB Conc 32.4 % (32.0-36.0); Mean Corpuscular Hemoglobin 27.8 pg (27.0-34.0); Mean Corpuscular Volume 85.9 fL (80.0-100.0); Mean Platelet Volume 7.9 fL (7.0-11.0); Platelet Count 256 th/mm3 (150-450); Red Blood Count 4.29 mil/mm3 (4.50-5.90); Red Cell Distribution Width 16.5 % (11.6-17.2)
[2018-03-30 16:39] LABS: Calcium 9.1 mg/dL (8.5-10.1); Carbon Dioxide 33.2 meq/L (21.0-32.0); Potassium 4.3 meq/L (3.5-5.1)
[2018-03-30] MEDS: QUEtiapine 25 MG Tablet PO SCH (21:24)
[2018-03-31] MEDS: Levothyroxine 88 MCG Tablet PO SCH (06:03)
[2018-03-31] MEDS: Carvedilol 6.25 MG Tablet PO SCH ×2 (09:16→20:43)
[2018-03-31] MEDS: Folic Acid 1 MG Tablet PO SCH (09:16)
[2018-03-31] MEDS: Senna/Docusate Sodium 8.6/50 MG Tablet PO SCH ×2 (09:16→20:43)
[2018-03-31] MEDS: amLODIPine 10 MG Tablet PO SCH (09:16)
[2018-03-31] MEDS: levETIRAcetam 500 MG Tablet PO SCH ×2 (09:17→20:43)
--- NOTE | 2018-03-31 12:56 | P.PNIM ---
Subjective Interval history: Follow-up acute renal failure on hemodialysis, anemia, hypertension and diabetes mellitus type 2. Patient seen and examined laying in bed, stated feeling better denies any pain or any discomfort at this time. Patient denies any headache or dizziness, denies any chest pain or shortness of breath, denies any fever or chills. Patient complains of food stated he is hungry. Nurse reported no acute concerns overnight. Physical Exam Vital signs: Vital Signs 03/30/18 15:06 03/30/18 19:51 03/30/18 20:00 Temperature 98.4 F 99.3 F Pulse Rate 79 92 H 76 Respiratory Rate 18 18 Blood Pressure 122/72 118/92 H Pulse Oximetry 95 94 L 03/31/18 00:00 03/31/18 04:00 03/31/18 08:02 Temperature 97.5 F L 97.6 F 98.1 F Pulse Rate 65 68 73 Respiratory Rate 18 18 16 Blood Pressure 129/72 130/64 139/75 Pulse Oximetry 97 95 97 03/31/18 11:53 Temperature 98.1 F Pulse Rate 70 Respiratory Rate 18 Blood Pressure 124/73 Pulse Oximetry 95 Intake & Output 03/30/18 03/31/18 03/31/18 18:59 06:59 18:59 Intake Total 120 / 120 Output Total 1999 860 / 860 Balance -1880 / -1880 -860 / -860 Weight 115 kg Intake: Oral 120 / 120 Output: Urine 860 / 860 Hemodialysis Amount 1999 Other: # Incontinent Voids 1 Date of Last Bowel Movement 03/29/18 03/30/18 Narrative: GENERAL: Well-developed, well-nourished, male in no acute distress, lying in bed SKIN: Warm and dry. Right subclavian AV graft intact HEAD: Atraumatic. Normocephalic. EYES: Pupils equal and round. No scleral icterus. No injection or drainage. ENT: No nasal bleeding or discharge. Mucous membranes pink and moist. NECK: Trachea midline. No JVD. CARDIOVASCULAR: Regular rate and rhythm. RESPIRATORY: No accessory muscle use. Clear to auscultation. Breath sounds equal bilaterally. GASTROINTESTINAL: Abdomen obese soft, non-tender, nondistended. Hepatic and splenic margins not palpable. MUSCULOSKELETAL: Extremities without clubbing, cyanosis. Bilateral lower extremity with trace edema no obvious deformities. NEUROLOGICAL: Awake and alert. No obvious cranial nerve deficits. Generalized weakness, moving all 4 extremities normal speech. PSYCHIATRIC: Flat mood and affect; insight and judgment poor. Urinary Catheter Management Indwelling Temp Sensing Catheter: Cath placed during this visit: yes, but has since been removed by the nurse Reason for continuing: Decision to DC catheter Insertion date: 01/14/18 Insertion time: 22:00 Removal date: 01/21/18 Removal time: 18:00 Straight: Cath placed during this visit: yes, but has since been removed by the nurse Reason for continuing: Acute urinary retention Insertion date: 03/16/18 Insertion time: 00:50 Removal date: 03/01/18 Removal time: 23:30 Results Labs CBC & Chem 7: 03/30/18 15:55 03/30/18 15:55 Procedures Procedures: Left IJ HD tunneled cath placed 02/08/18 by IR Assessment and Plan (1) Acute renal failure: Code(s): N17.9 - Acute kidney failure, unspecified Status: Acute (2) Anemia: Code(s): D64.9 - Anemia, unspecified Status: Acute (3) Hypertension: Code(s): I10 - Essential (primary) hypertension Status: Acute (4) Diabetes: Code(s): E11.9 - Type 2 diabetes mellitus without complications Status: Acute Plan 62-year-old white male who was admitted with cardiogenic shock and acute respiratory failure requiring CPR and epinephrine in the field, after being found down at home and being witnessed to possibly have undergone seizure-like activity. Intubation was attempted in the field but were unable to do so, patient was ultimately intubated in the hospital, started on pressors, placed in the ICU on mechanical ventilation. Found to have bilateral pneumothoraces with chest tubes placed, had developed some pneumoperitoneum which surgically deemed might have been a leak from his chest tubes as opposed to an acute surgical abdomen. Patient was started on antibiotics empirically for possible aspiration pneumonia but was ultimately discontinued off of them by infectious disease. Developed rhabdomyolysis with worsening acute renal failure which became sustained, with the patient now undergoing dialysis. Ultimately was discontinued off pressors, cardiology deferred heart cath due to renal failure. Patient had difficulty following commands after he was discontinued off of sedation and after extubation. Had an MRI done on 01/17 which showed no acute findings, only an older right parietal CVA. EEG was done which was unremarkable. 03/31/18: no acute changes, continue current plan End-stage renal disease/acute renal disease on on HD Normocytic Anemia, s/p blood transfusion -on hemodialysis -- -Nephrology following. Plan for possible end-stage renal disease and to arrange for outpatient hemodialysis -R IJ permacath placement 02/08/18 -S/p renal biopsy per IR 03/07/18 : ATN and cast neuropathy due to rhabdo -continue Epogen with HD -Avoid nephrotoxins including NSAIDs, iodine and contrast agents -monitor BMP UTI with Urinary Retention Hematuria, improved -Patient with episode of urinary retention overnight 03/16, s/p straight cath -Bladder scan prn, straight cath if > 400cc or if patient symptomatic -Urine culture with Viridans streptococci; S/p antbx trt 03/23. Remains afebrile. WBCs WNL. -Repeat complaint of dysuria; new UA ordered 03/25 mixed gram positive eduardo -Urology following: to f/u with Dr Ferraro as an outpatient -patient now urinating spontaneously, no further retention, pt voiding better Anxiety and agitated behaviors - questionable decision-making ability -Psychiatry consulted: Patient has decision-making capacity to participate medical decisions at this moment. -Continue patient's seroquel -mental status improving Acute on chronic pain Peripheral neuropathy, left arm numbness and tingling -New PRN Percocet for pain management with bowel regimen, goal is to wean and DC narcotics -E-forcse reviewed-patient was not on chronic narcotic pain medication prior to admission. -Discontinue gabapentin, due to renal failure -Denies any pain today, denies any numbness or tingling on the left arm today. 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 Possible anoxic brain injury Dysphagia related to encephalopathy -Neurology following : Ok to get out of bed per Neurology with assistance -PT/OT/ST -ST rec mechanical soft, thin liquid diet -tolerating PO diet Possible seizure -Continue Keppra -EEG was negative NSTEMI -Troponins 0.52, 1.89, 2.37 -Cardiology consulted, recommended conservative medical management -Continue ASA, Coreg, Isosorbide, amlodipine and atorvastatin -No chest pain no shortness of breath Acute respiratory failure Bilateral pneumothoraces - stable, Chest tube removed 01/28/18 Pneumomediastinum Pneumoperitoneum with right retroperitoneal gas around the right kidney -Likely secondary to bilateral pneumothoraces with no surgical intervention warranted per general surgery -Continue supplemental O2 PRN -Pulmonary following -O2 sat currently stable on room air Cirrhosis -Likely secondary to alcohol abuse -Continue BB Type II diabetes mellitus -not on any medication -Not needing sliding scale coverage; frequently refusing 5 units Levemir at night -monitor daily blood glucose with insulin SS coverage -Blood sugar fair controlled, on diabetic diet Hypothyroidism -Continue Synthroid -monitor TSH GI ppx: Protonix PO DVT ppx: Heparin SQ Discharge Planning: Patient has remained dialysis dependent. Case management is aware of the possible need for dialysis. No payor source. Will need placement. Patient stated his plan is to go home to his [place] home, his will move back with him and he will get a caregiver. Patient stated he has 2 houses one in [place] and one in [place], but he would like to move back to [facility]. 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
[2018-03-31] MEDS: QUEtiapine 25 MG Tablet PO SCH (20:43)
[2018-04-01] MEDS: Levothyroxine 88 MCG Tablet PO SCH (05:56)
[2018-04-01] MEDS: Carvedilol 6.25 MG Tablet PO SCH ×2 (08:40→21:35)
[2018-04-01] MEDS: amLODIPine 10 MG Tablet PO SCH (08:40)
[2018-04-01] MEDS: Folic Acid 1 MG Tablet PO SCH (08:40)
[2018-04-01] MEDS: Senna/Docusate Sodium 8.6/50 MG Tablet PO SCH ×2 (08:40→21:35)
[2018-04-01] MEDS: levETIRAcetam 500 MG Tablet PO SCH ×2 (08:41→21:35)
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
--- NOTE | 2018-04-01 16:37 | P.PNNP ---
Subjective Interval history: Resting comfortably. No shortness of breath, nausea, vomiting, or diarrhea. <Smiley Barth - Last Filed: 04/01/18 16:31> Physical Exam Vital signs: Vital Signs 03/31/18 20:00 04/01/18 00:00 04/01/18 03:57 Temperature 98.1 F 98 F Pulse Rate 72 54 L 74 Respiratory Rate 18 18 Blood Pressure 127/67 134/70 Pulse Oximetry 96 97 04/01/18 04:00 04/01/18 08:00 04/01/18 12:00 Temperature 97.9 F 98 F 97.9 F Pulse Rate 75 70 68 Respiratory Rate 18 20 20 Blood Pressure 139/74 160/87 H 119/74 Pulse Oximetry 97 98 96 Intake & Output 03/31/18 04/01/18 04/01/18 18:59 06:59 18:59 Output Total 780 / 780 Balance -780 / -780 Weight 115 kg Output: Urine 780 / 780 Other: # Voids 2 Date of Last Bowel Movement 03/30/18 03/31/18 03/31/18 Narrative: GENERAL: Well-nourished, well-developed middle-aged male patient in [facility]. SKIN: Warm and dry. No rash. Right anterior chest with dialysis catheter, no surrounding erythema. HEENT: Normocephalic. Atraumatic. Mucous membranes pink and moist. CARDIOVASCULAR: Regular rate and rhythm. RESPIRATORY: No accessory muscle use. Clear to auscultation. Breath sounds equal bilaterally. GASTROINTESTINAL: Abdomen soft, non-tender, nondistended. Normoactive bowel sounds x4. MUSCULOSKELETAL: No obvious deformities. Extremities without clubbing, cyanosis , or edema. NEUROLOGICAL: Awake and alert. No obvious cranial nerve deficits. Moving all extremities spontaneously. Normal speech. - Urinary Catheter Management Indwelling Temp Sensing Catheter Cath placed during this visit: yes, but has since been removed by the nurse Reason for continuing: Decision to DC catheter Insertion date: 01/14/18 Insertion time: 22:00 Removal date: 01/21/18 Removal time: 18:00 Straight Cath placed during this visit: yes, but has since been removed by the nurse Reason for continuing: Acute urinary retention Insertion date: 03/16/18 Insertion time: 00:50 Removal date: 03/01/18 Removal time: 23:30 <Smiley Barth - Last Filed: 04/01/18 16:31> Vital signs: Vital Signs 04/01/18 00:00 04/01/18 03:57 04/01/18 04:00 Temperature 98 F 97.9 F Pulse Rate 54 L 74 75 Respiratory Rate 18 18 Blood Pressure 134/70 139/74 Pulse Oximetry 97 97 04/01/18 04:15 04/01/18 08:00 04/01/18 12:00 Temperature 97.2 F L 98 F 97.9 F Pulse Rate 71 70 68 Respiratory Rate 20 20 20 Blood Pressure 136/84 160/87 H 119/74 Pulse Oximetry 97 98 96 04/01/18 20:00 Temperature 98.0 F Pulse Rate 73 Respiratory Rate 18 Blood Pressure 145/85 H Pulse Oximetry 97 Intake & Output 04/01/18 04/01/18 04/02/18 06:59 18:59 06:59 Output Total 780 / 780 200 / 200 Balance -780 / -780 -200 / -200 Weight 115 kg Output: Urine 780 / 780 200 / 200 Other: # Voids 2 Date of Last Bowel Movement 03/31/18 03/31/18 - Urinary Catheter Management Indwelling Temp Sensing Catheter Cath placed during this visit: no Straight Cath placed during this visit: no <Brianna Blevins - Last Filed: 04/01/18 21:27> Assessment and Plan - Assessment (1) Acute renal failure Code(s): N17.9 - Acute kidney failure, unspecified Status: Acute Plan: Remains dialysis dependent at this time. [facility] Per renal biopsy patient has ATN and cast Nephropathy, due to Rhabdo. Medications should be adjusted for the patient's estimated GFR if clinically indicated. Avoid agents with significant potential for nephrotoxicity possible including NSAIDs for analgesia, iodine contrast agents. Gadolinium is contraindicated if the GFR is below 30. Monitor UOP and electrolytes. HD planned for tomorrow If no improvement by in renal indices Dr. Blevins will start working for possible End stage renal disease. (2) Anemia Code(s): D64.9 - Anemia, unspecified Status: Acute Qualifiers: Anemia type: due to chronic kidney disease Plan: Epogen with dialysis. HGB stable (3) Hypertension Code(s): I10 - Essential (primary) hypertension Status: Acute Plan: Well controlled, will monitor. (4) Diabetes Code(s): E11.9 - Type 2 diabetes mellitus without complications Status: Acute Plan: Maintain blood sugars between 140 mg /dl to 180 mg/dl while hospitalized. Well controlled. <Smiley Barth - Last Filed: 04/01/18 16:31> - Assessment (1) Acute renal failure Code(s): N17.9 - Acute kidney failure, unspecified Status: Acute Plan: Patient seen and examined, agree with above. If no improvement in the Creatinine this week, will start work up for end stage renal disease and out patient HD. (2) Anemia Code(s): D64.9 - Anemia, unspecified Status: Acute Qualifiers: Anemia type: due to chronic kidney disease (3) Hypertension Code(s): I10 - Essential (primary) hypertension Status: Acute (4) Diabetes Code(s): E11.9 - Type 2 diabetes mellitus without complications Status: Acute <Brianna Blevins - Last Filed: 04/01/18 21:27>
[2018-04-01] MEDS: QUEtiapine 25 MG Tablet PO SCH (21:35)
[2018-04-02] MEDS: Levothyroxine 88 MCG Tablet PO SCH (05:47)
--- NOTE | 2018-04-02 09:41 | P.PNNP ---
Subjective Interval history: Seen during hemodialysis, tolerating well. Labs drawn. Denies any shortness of breath, nausea, or vomiting. <Smiley Barth - Last Filed: 04/02/18 09:38> Physical Exam Vital signs: Vital Signs 04/01/18 12:00 04/01/18 20:00 04/02/18 00:00 Temperature 97.9 F 98.0 F 98.3 F Pulse Rate 68 74 81 Respiratory Rate 20 18 18 Blood Pressure 119/74 145/85 H 134/89 Pulse Oximetry 96 97 96 04/02/18 02:50 04/02/18 04:00 04/02/18 07:20 Temperature 98.6 F 97.8 F Pulse Rate 76 72 Respiratory Rate 19 18 20 Blood Pressure 136/80 141/85 H Pulse Oximetry 95 95 Intake & Output 04/01/18 04/02/18 04/02/18 18:59 06:59 18:59 Intake Total 800 / 800 Output Total 200 / 200 1000 / 1000 Balance -200 / -200 -200 / -200 Intake: Oral 800 / 800 Output: Urine 200 / 200 1000 / 1000 Other: Date of Last Bowel Movement 03/31/18 04/01/18 Narrative: GENERAL: Well-nourished, well-developed middle-aged male patient in [facility]. SKIN: Warm and dry. No rash. Right anterior chest with dialysis catheter, no surrounding erythema. HEENT: Normocephalic. Atraumatic. Mucous membranes pink and moist. CARDIOVASCULAR: Regular rate and rhythm. RESPIRATORY: No accessory muscle use. Clear to auscultation. Breath sounds equal bilaterally. GASTROINTESTINAL: Abdomen soft, non-tender, nondistended. Normoactive bowel sounds x4. MUSCULOSKELETAL: No obvious deformities. Extremities without clubbing, cyanosis , or edema. NEUROLOGICAL: Awake and alert. No obvious cranial nerve deficits. Moving all extremities spontaneously. Normal speech. - Urinary Catheter Management Indwelling Temp Sensing Catheter Cath placed during this visit: yes, but has since been removed by the nurse Reason for continuing: Decision to DC catheter Insertion date: 01/14/18 Insertion time: 22:00 Removal date: 01/21/18 Removal time: 18:00 Straight Cath placed during this visit: yes, but has since been removed by the nurse Reason for continuing: Acute urinary retention Insertion date: 03/16/18 Insertion time: 00:50 Removal date: 03/01/18 Removal time: 23:30 <Smiley Barth - Last Filed: 04/02/18 09:38> Vital signs: Vital Signs 04/02/18 00:00 04/02/18 02:50 04/02/18 04:00 Temperature 98.3 F 98.6 F Pulse Rate 81 76 Respiratory Rate 18 19 18 Blood Pressure 134/89 136/80 Pulse Oximetry 96 95 04/02/18 07:20 04/02/18 08:00 04/02/18 11:57 Temperature 97.8 F Pulse Rate 72 63 75 Respiratory Rate 20 Blood Pressure 141/85 H Pulse Oximetry 95 04/02/18 12:00 04/02/18 15:51 04/02/18 16:00 Temperature 98.4 F Pulse Rate 88 89 82 Respiratory Rate 20 Blood Pressure 145/82 H 144/81 H Pulse Oximetry 98 Intake & Output 04/02/18 04/02/18 04/03/18 06:59 18:59 06:59 Intake Total 800 / 800 Output Total 1000 / 1000 3100 / 3100 Balance -200 / -200 -3100 / -3100 Intake: Oral 800 / 800 Output: Urine 1000 / 1000 1100 / 1100 Hemodialysis Amount 1999 Other: # Voids 1 Date of Last Bowel Movement 04/01/18 04/01/18 # Bowel Movements 1 # Incontinent Bowel Movements 1 - Urinary Catheter Management Indwelling Temp Sensing Catheter Cath placed during this visit: no Straight Cath placed during this visit: no <Brianna Blevins - Last Filed: 04/02/18 20:43> Assessment and Plan - Assessment (1) Acute renal failure Code(s): N17.9 - Acute kidney failure, unspecified Status: Acute Plan: Remains dialysis dependent at this time. First HD 01/17/18 , RIJ PermCath placed 02/08/18 HD on Per renal biopsy patient has ATN and cast Nephropathy, due to Rhabdo. Medications should be adjusted for the patient's estimated GFR if clinically indicated. Avoid agents with significant potential for nephrotoxicity possible including NSAIDs for analgesia, iodine contrast agents. Gadolinium is contraindicated if the GFR is below 30. Monitor UOP and electrolytes. If no improvement in renal indices Dr. Blevins will start working for possible End stage renal disease. Seen during HD today 2 K bath and plan to remove 2 liters of fluid Labs drawn and pending. (2) Anemia Code(s): D64.9 - Anemia, unspecified Status: Acute Qualifiers: Anemia type: due to chronic kidney disease Plan: Epogen with dialysis. HGB stable (3) Hypertension Code(s): I10 - Essential (primary) hypertension Status: Acute Plan: Well controlled, will monitor. (4) Diabetes Code(s): E11.9 - Type 2 diabetes mellitus without complications Status: Acute Plan: Maintain blood sugars between 140 mg /dl to 180 mg/dl while hospitalized. Well controlled. <Smiley Barth - Last Filed: 04/02/18 09:38> - Assessment (1) Acute renal failure Code(s): N17.9 - Acute kidney failure, unspecified Status: Acute Plan: Patient seen and examined, agree with above. HD done in AM. Creatinine is better, but still elevated. I will start working with Hematology Specialist for out patient HD. If no improvement by this Sunday, will start paper work for ESRD. (2) Anemia Code(s): D64.9 - Anemia, unspecified Status: Acute Qualifiers: Anemia type: due to chronic kidney disease (3) Hypertension Code(s): I10 - Essential (primary) hypertension Status: Acute (4) Diabetes Code(s): E11.9 - Type 2 diabetes mellitus without complications Status: Acute <Brianna Blevins - Last Filed: 04/02/18 20:43>
[2018-04-02 09:51] LABS: Baso # (Auto) 0.1 th/mm3 (0.0-0.2); Baso % (Auto) 1.3 % (0.0-2.0); Eos # (Auto) 0.3 th/mm3 (0.0-0.4); Hematocrit 31.7 % (39.0-51.0); Hemoglobin 10.4 gm/dL (13.0-17.0); Lymph # (Auto) 1.2 th/mm3 (1.0-4.8); Lymph % (Auto) 18.6 % (9.0-44.0); Mean Corpuscular HGB Conc 32.7 % (32.0-36.0); Mean Corpuscular Hemoglobin 27.7 pg (27.0-34.0); Mean Corpuscular Volume 84.6 fL (80.0-100.0); Mean Platelet Volume 7.7 fL (7.0-11.0); Mono # (Auto) 0.4 th/mm3 (0.0-0.9); Mono % (Auto) 5.9 % (0.0-8.0); Neut # (Auto) 4.4 th/mm3 (1.8-7.7); Neut % (Auto) 69.2 % (16.0-70.0); Platelet Count 256 th/mm3 (150-450); Red Blood Count 3.74 mil/mm3 (4.50-5.90); Red Cell Distribution Width 16.1 % (11.6-17.2); White Blood Count 6.3 th/mm3 (4.0-11.0)
[2018-04-02 10:22] LABS: Albumin 2.5 g/dL (3.4-5.0); Calcium 8.8 mg/dL (8.5-10.1); Carbon Dioxide 28.6 meq/L (21.0-32.0); Phosphorus 4.6 mg/dL (2.5-4.9)
[2018-04-02] MEDS: Heparin 10,000 UNITS/10 ML Vial (for IV use) OTHER PRN (11:41)
[2018-04-02] MEDS: amLODIPine 10 MG Tablet PO SCH (15:07)
[2018-04-02] MEDS: Folic Acid 1 MG Tablet PO SCH (15:07)
[2018-04-02] MEDS: Carvedilol 6.25 MG Tablet PO SCH ×2 (15:07→21:49)
[2018-04-02] MEDS: levETIRAcetam 500 MG Tablet PO SCH ×2 (15:07→21:49)
[2018-04-02] MEDS: Senna/Docusate Sodium 8.6/50 MG Tablet PO SCH ×2 (15:08→21:49)
--- NOTE | 2018-04-02 17:16 | P.PNIM ---
Subjective Interval history: Follow-up acute renal failure on hemodialysis, anemia, hypertension and diabetes mellitus type 2 Patient resting in bed status post dialysis. He states he is feeling tired. No complaints of pain or discomfort voiced. No cough, fever or chills. No acute events overnight. Physical Exam Vital signs: Vital Signs 04/01/18 20:00 04/02/18 00:00 04/02/18 02:50 Temperature 98.0 F 98.3 F Pulse Rate 74 81 Respiratory Rate 18 18 19 Blood Pressure 145/85 H 134/89 Pulse Oximetry 97 96 04/02/18 04:00 04/02/18 07:20 04/02/18 08:00 Temperature 98.6 F 97.8 F Pulse Rate 76 72 63 Respiratory Rate 18 20 Blood Pressure 136/80 141/85 H Pulse Oximetry 95 95 04/02/18 11:57 04/02/18 12:00 04/02/18 15:51 Temperature Pulse Rate 75 88 89 Respiratory Rate Blood Pressure 145/82 H Pulse Oximetry 04/02/18 16:00 Temperature 98.4 F Pulse Rate 82 Respiratory Rate 20 Blood Pressure 144/81 H Pulse Oximetry 98 Intake & Output 04/01/18 04/02/18 04/02/18 18:59 06:59 18:59 Intake Total 800 / 800 Output Total 200 / 200 1000 / 1000 3100 / 3100 Balance -200 / -200 -200 / -200 -3100 / -3100 Intake: Oral 800 / 800 Output: Urine 200 / 200 1000 / 1000 1100 / 1100 Hemodialysis Amount 1999 Other: Date of Last Bowel Movement 03/31/18 04/01/18 04/01/18 # Bowel Movements 1 Narrative: GENERAL: Well-developed, well-nourished, male in no acute distress, lying in bed SKIN: Warm and dry. Right subclavian AV graft intact HEAD: Atraumatic. Normocephalic. EYES: Pupils equal and round. No scleral icterus. No injection or drainage., Wearing eyeglasses ENT: No nasal bleeding or discharge. Mucous membranes pink and moist. NECK: Trachea midline. No JVD. CARDIOVASCULAR: Regular rate and rhythm. RESPIRATORY: No accessory muscle use. Clear to auscultation. Breath sounds equal bilaterally. GASTROINTESTINAL: Abdomen obese soft, non-tender, nondistended. Hepatic and splenic margins not palpable. MUSCULOSKELETAL: Extremities without clubbing, cyanosis. Bilateral lower extremity with trace edema no obvious deformities. NEUROLOGICAL: Awake and alert. No obvious cranial nerve deficits. Generalized weakness, moving all 4 extremities normal speech. PSYCHIATRIC: Flat mood and affect; insight and judgment poor. Urinary Catheter Management Indwelling Temp Sensing Catheter: Cath placed during this visit: yes, but has since been removed by the nurse Reason for continuing: Decision to DC catheter Insertion date: 01/14/18 Insertion time: 22:00 Removal date: 01/21/18 Removal time: 18:00 Straight: Cath placed during this visit: yes, but has since been removed by the nurse Reason for continuing: Acute urinary retention Insertion date: 03/16/18 Insertion time: 00:50 Removal date: 03/01/18 Removal time: 23:30 Results Labs CBC & Chem 7: 04/02/18 09:00 04/02/18 09:00 Procedures Procedures: Left IJ HD tunneled cath placed 02/08/18 by IR Assessment and Plan (1) Acute renal failure: Code(s): N17.9 - Acute kidney failure, unspecified Status: Acute (2) Anemia: Code(s): D64.9 - Anemia, unspecified Status: Acute (3) Hypertension: Code(s): I10 - Essential (primary) hypertension Status: Acute (4) Diabetes: Code(s): E11.9 - Type 2 diabetes mellitus without complications Status: Acute Plan 62-year-old white male who was admitted with cardiogenic shock and acute respiratory failure requiring CPR and epinephrine in the field, after being found down at home and being witnessed to possibly have undergone seizure-like activity. Intubation was attempted in the field but were unable to do so, patient was ultimately intubated in the hospital, started on pressors, placed in the ICU on mechanical ventilation. Found to have bilateral pneumothoraces with chest tubes placed, had developed some pneumoperitoneum which surgically deemed might have been a leak from his chest tubes as opposed to an acute surgical abdomen. Patient was started on antibiotics empirically for possible aspiration pneumonia but was ultimately discontinued off of them by infectious disease. Developed rhabdomyolysis with worsening acute renal failure which became sustained, with the patient now undergoing dialysis. Ultimately was discontinued off pressors, cardiology deferred heart cath due to renal failure. Patient had difficulty following commands after he was discontinued off of sedation and after extubation. Had an MRI done on 01/17 which showed no acute findings, only an older right parietal CVA. EEG was done which was unremarkable. ESRD on HD -dialysis M, W, Fr. 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 Possible anoxic brain injury -Neurology consulted and following -PT/OT/ST -ok to get out of bed per Neurology with assistance Dysphagia related to encephalopathy -ST rec mechanical soft, thin liquid diet Possible seizure -continue Keppra -EEG was negative NSTEMI -troponins 0.52, 1.89 & 2.37 respectively -cardiology consulted, rec conservative medical management -continue ASA, Coreg, Isosorbide, amlodipine and atorvastatin Bilateral pneumothoraces - stable -chest tube removed 01/28/18 Pneumomediastinum Pneumoperitoneum with right retroperitoneal gas around the right kidney -Likely secondary to bilateral pneumothoraces with no surgical intervention warranted per general surgery Acute respiratory failure -continue supplemental O2 PRN -pulmonary following Cirrhosis -likely secondary to alcohol abuse -continue BB Type II diabetes mellitus, uncontrolled -accuchecks ac/hs with SSI -Continue Aspart Sliding scale insulin. -Will continue Levemir 5 units QHS. Goal BG 140-180. -ADA diet Hypothyroidism -continue Synthroid Normocytic anemia - stable -s/p PRBC transfusion -epogen with dialysis MDM: self Code: DNR GI ppx: Protonix PO DVT ppx: Heparin SQ Discussed with: RN, patient, CM Dispo: awaiting placement once cleared by nephrology Progress Note: Quality VTE Deep Vein Thrombosis/Pulmonary Embolism Present on Admission: No _ (1) Acute renal failure Qualifiers: Acute renal failure type: (2) Anemia Qualifiers: Anemia type: due to chronic kidney disease Iron deficiency anemia type: Vitamin B12 deficiency anemia type: Folate deficiency anemia type: Bone marrow failure anemia type: Hemolytic anemia type: Other causes of anemia: Chronic kidney disease stage: (3) Hypertension Qualifiers: Hypertension type: (4) Diabetes Qualifiers: Diabetes mellitus type: Diabetes mellitus fpc insulin use: Diabetes mellitus complication status: Diabetes mellitus complication detail: Diabetic retinopathy severity: Proliferative retinopathy type: Diabetes mellitus macular edema: Laterality: Chronic kidney disease stage:
[2018-04-02] MEDS: QUEtiapine 25 MG Tablet PO SCH (21:49)
[2018-04-03] MEDS: Levothyroxine 88 MCG Tablet PO SCH (06:33)
[2018-04-03] MEDS: levETIRAcetam 500 MG Tablet PO SCH ×2 (10:29→20:58)
[2018-04-03] MEDS: Carvedilol 6.25 MG Tablet PO SCH ×2 (10:30→20:58)
[2018-04-03] MEDS: amLODIPine 10 MG Tablet PO SCH (10:30)
[2018-04-03] MEDS: Folic Acid 1 MG Tablet PO SCH (10:30)
[2018-04-03] MEDS: Senna/Docusate Sodium 8.6/50 MG Tablet PO SCH ×2 (10:31→20:59)
--- NOTE | 2018-04-03 14:01 | P.PNIM ---
Subjective Interval history: Follow-up acute renal failure on hemodialysis, anemia, hypertension and diabetes mellitus type 2 Patient resting in bed. Lunch tray in front of him. He complains of only having a quarter of a bagel this morning. Seems happy with current lunch tray. No discomfort voiced. Physical Exam Vital signs: Vital Signs 04/02/18 15:51 04/02/18 16:00 04/02/18 20:00 Temperature 98.4 F 99.1 F Pulse Rate 89 82 72 Respiratory Rate 20 18 Blood Pressure 144/81 H 145/70 H Pulse Oximetry 98 98 04/03/18 00:00 04/03/18 05:15 04/03/18 07:15 Temperature 98.4 F 98.0 F 98.3 F Pulse Rate 77 88 94 H Respiratory Rate 18 18 20 Blood Pressure 117/67 126/71 129/76 Pulse Oximetry 96 95 94 L 04/03/18 11:50 Temperature 98.6 F Pulse Rate 91 H Respiratory Rate 20 Blood Pressure 122/83 Pulse Oximetry 96 Intake & Output 04/02/18 04/03/18 04/03/18 18:59 06:59 18:59 Output Total 3100 / 3100 700 / 700 500 / 500 Balance -3100 / -3100 -700 / -700 -500 / -500 Weight 94 kg Output: Urine 1100 / 1100 700 / 700 500 / 500 Hemodialysis Amount 1999 Other: # Voids 1 1 Date of Last Bowel Movement 04/01/18 04/02/18 # Bowel Movements 1 # Incontinent Bowel Movements 1 Narrative: GENERAL: Well-developed, well-nourished, male in no acute distress, lying in bed SKIN: Warm and dry. Right subclavian AV graft intact HEAD: Atraumatic. Normocephalic. EYES: Pupils equal and round. No scleral icterus. No injection or drainage., Wearing eyeglasses ENT: No nasal bleeding or discharge. Mucous membranes pink and moist. NECK: Trachea midline. No JVD. CARDIOVASCULAR: Regular rate and rhythm. RESPIRATORY: No accessory muscle use. Clear to auscultation. Breath sounds equal bilaterally. GASTROINTESTINAL: Abdomen obese soft, non-tender, nondistended. Hepatic and splenic margins not palpable. MUSCULOSKELETAL: Extremities without clubbing, cyanosis. Bilateral lower extremity with trace edema no obvious deformities. RIJ permacath. NEUROLOGICAL: Awake and alert. No obvious cranial nerve deficits. Generalized weakness, moving all 4 extremities normal speech. PSYCHIATRIC: Flat mood and affect; insight and judgment poor. Urinary Catheter Management Indwelling Temp Sensing Catheter: Cath placed during this visit: yes, but has since been removed by the nurse Reason for continuing: Decision to DC catheter Insertion date: 01/14/18 Insertion time: 22:00 Removal date: 01/21/18 Removal time: 18:00 Straight: Cath placed during this visit: yes, but has since been removed by the nurse Reason for continuing: Acute urinary retention Insertion date: 03/16/18 Insertion time: 00:50 Removal date: 03/01/18 Removal time: 23:30 Results Labs CBC & Chem 7: 04/02/18 09:00 04/02/18 09:00 Procedures Procedures: Left IJ HD tunneled cath placed 02/08/18 by IR Assessment and Plan (1) Acute renal failure: Code(s): N17.9 - Acute kidney failure, unspecified Status: Acute (2) Anemia: Code(s): D64.9 - Anemia, unspecified Status: Acute (3) Hypertension: Code(s): I10 - Essential (primary) hypertension Status: Acute (4) Diabetes: Code(s): E11.9 - Type 2 diabetes mellitus without complications Status: Acute Plan 62-year-old white male who was admitted with cardiogenic shock and acute respiratory failure requiring CPR and epinephrine in the field, after being found down at home and being witnessed to possibly have undergone seizure-like activity. Intubation was attempted in the field but were unable to do so, patient was ultimately intubated in the hospital, started on pressors, placed in the ICU on mechanical ventilation. Found to have bilateral pneumothoraces with chest tubes placed, had developed some pneumoperitoneum which surgically deemed might have been a leak from his chest tubes as opposed to an acute surgical abdomen. Patient was started on antibiotics empirically for possible aspiration pneumonia but was ultimately discontinued off of them by infectious disease. Developed rhabdomyolysis with worsening acute renal failure which became sustained, with the patient now undergoing dialysis. Ultimately was discontinued off pressors, cardiology deferred heart cath due to renal failure. Patient had difficulty following commands after he was discontinued off of sedation and after extubation. Had an MRI done on 01/17 which showed no acute findings, only an older right parietal CVA. EEG was done which was unremarkable. 02/01/19 - no change in patient condition, no change in treatment plan ESRD on HD -dialysis M, W, Fr. 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 Possible anoxic brain injury -Neurology consulted and following -PT/OT/ST -ok to get out of bed per Neurology with assistance Dysphagia related to encephalopathy -ST rec mechanical soft, thin liquid diet Possible seizure -continue Keppra -EEG was negative NSTEMI -troponins 0.52, 1.89 & 2.37 respectively -cardiology consulted, rec conservative medical management -continue ASA, Coreg, Isosorbide, amlodipine and atorvastatin Bilateral pneumothoraces - stable -chest tube removed 01/28/18 Pneumomediastinum Pneumoperitoneum with right retroperitoneal gas around the right kidney -Likely secondary to bilateral pneumothoraces with no surgical intervention warranted per general surgery Acute respiratory failure -continue supplemental O2 PRN -pulmonary following Cirrhosis -likely secondary to alcohol abuse -continue BB Type II diabetes mellitus, uncontrolled -accuchecks ac/hs with SSI -Continue Aspart Sliding scale insulin. -Will continue Levemir 5 units QHS. Goal BG 140-180. -ADA diet Hypothyroidism -continue Synthroid Normocytic anemia - stable -s/p PRBC transfusion -epogen with dialysis MDM: self Code: DNR GI ppx: Protonix PO DVT ppx: Heparin SQ Discussed with: RN, patient, CM Dispo: awaiting placement once cleared by nephrology Progress Note: Quality VTE Deep Vein Thrombosis/Pulmonary Embolism Present on Admission: No _ (1) Acute renal failure Qualifiers: Acute renal failure type: (2) Anemia Qualifiers: Anemia type: due to chronic kidney disease Iron deficiency anemia type: Vitamin B12 deficiency anemia type: Folate deficiency anemia type: Bone marrow failure anemia type: Hemolytic anemia type: Other causes of anemia: Chronic kidney disease stage: (3) Hypertension Qualifiers: Hypertension type: (4) Diabetes Qualifiers: Diabetes mellitus type: Diabetes mellitus [employer] insulin use: Diabetes mellitus complication status: Diabetes mellitus complication detail: Diabetic retinopathy severity: Proliferative retinopathy type: Diabetes mellitus macular edema: Laterality: Chronic kidney disease stage:
--- NOTE | 2018-04-03 15:07 | P.PNNP ---
Subjective Interval history: Seen in AM. HD yesterday tolerated well. No shortness of breath, nausea, or vomiting. <Smiley Barth - Last Filed: 04/03/18 15:03> Physical Exam Vital signs: Vital Signs 04/02/18 15:51 04/02/18 16:00 04/02/18 20:00 Temperature 98.4 F 99.1 F Pulse Rate 89 82 72 Respiratory Rate 20 18 Blood Pressure 144/81 H 145/70 H Pulse Oximetry 98 98 04/03/18 00:00 04/03/18 05:15 04/03/18 07:15 Temperature 98.4 F 98.0 F 98.3 F Pulse Rate 77 88 94 H Respiratory Rate 18 18 20 Blood Pressure 117/67 126/71 129/76 Pulse Oximetry 96 95 94 L 04/03/18 11:50 Temperature 98.6 F Pulse Rate 91 H Respiratory Rate 20 Blood Pressure 122/83 Pulse Oximetry 96 Intake & Output 04/02/18 04/03/18 04/03/18 18:59 06:59 18:59 Output Total 3100 / 3100 700 / 700 500 / 500 Balance -3100 / -3100 -700 / -700 -500 / -500 Weight 94 kg Output: Urine 1100 / 1100 700 / 700 500 / 500 Hemodialysis Amount 1999 / 1999 Other: # Voids 1 1 Date of Last Bowel Movement 04/01/18 04/02/18 # Bowel Movements 1 # Incontinent Bowel Movements 1 Narrative: GENERAL: Well-nourished, well-developed middle-aged male patient in [facility]. SKIN: Warm and dry. No rash. Right anterior chest with dialysis catheter, no surrounding erythema. HEENT: Normocephalic. Atraumatic. Mucous membranes pink and moist. CARDIOVASCULAR: Regular rate and rhythm. RESPIRATORY: No accessory muscle use. Clear to auscultation. Breath sounds equal bilaterally. GASTROINTESTINAL: Abdomen soft, non-tender, nondistended. Normoactive bowel sounds x4. MUSCULOSKELETAL: No obvious deformities. Extremities without clubbing, cyanosis , or edema. NEUROLOGICAL: Awake and alert. No obvious cranial nerve deficits. Moving all extremities spontaneously. Normal speech. - Urinary Catheter Management Indwelling Temp Sensing Catheter Cath placed during this visit: yes, but has since been removed by the nurse Reason for continuing: Decision to DC catheter Insertion date: 01/14/18 Insertion time: 22:00 Removal date: 01/21/18 Removal time: 18:00 Straight Cath placed during this visit: yes, but has since been removed by the nurse Reason for continuing: Acute urinary retention Insertion date: 03/16/18 Insertion time: 00:50 Removal date: 03/01/18 Removal time: 23:30 <Smiley Barth - Last Filed: 04/03/18 15:03> Vital signs: Vital Signs 04/02/18 20:00 04/03/18 00:00 04/03/18 05:15 Temperature 99.1 F 98.4 F 98.0 F Pulse Rate 72 77 88 Respiratory Rate 18 18 18 Blood Pressure 145/70 H 117/67 126/71 Pulse Oximetry 98 96 95 04/03/18 07:15 04/03/18 11:50 04/03/18 15:21 Temperature 98.3 F 98.6 F Pulse Rate 94 H 91 H 92 H Respiratory Rate 20 20 Blood Pressure 129/76 122/83 Pulse Oximetry 94 L 96 04/03/18 16:55 Temperature 98.4 F Pulse Rate 83 Respiratory Rate 20 Blood Pressure 157/88 H Pulse Oximetry 97 Intake & Output 04/03/18 04/03/18 04/04/18 06:59 18:59 06:59 Output Total 700 / 700 500 / 500 Balance -700 / -700 -500 / -500 Weight 94 kg Output: Urine 700 / 700 500 / 500 Other: # Voids 1 Date of Last Bowel Movement 04/02/18 04/03/18 - Urinary Catheter Management Indwelling Temp Sensing Catheter Cath placed during this visit: no Straight Cath placed during this visit: no <Brianna Blevins - Last Filed: 04/03/18 19:06> Assessment and Plan - Assessment (1) Acute renal failure Code(s): N17.9 - Acute kidney failure, unspecified Status: Acute Plan: Remains dialysis dependent at this time. First HD 01/17/18 , RIJ PermCath placed 02/08/18 HD on Per renal biopsy patient has ATN and cast Nephropathy, due to Rhabdo. Medications should be adjusted for the patient's estimated GFR if clinically indicated. Avoid agents with significant potential for nephrotoxicity possible including NSAIDs for analgesia, iodine contrast agents. Gadolinium is contraindicated if the GFR is below 30. Monitor UOP and electrolytes. I will start working with [employer] for out patient HD. If no improvement by this Sunday, will start paper work for ESRD. HD yesterday tolerated well, 2 liters of fluid removed Creatinine yesterday 4.9, non oliguric (2) Anemia Code(s): D64.9 - Anemia, unspecified Status: Acute Qualifiers: Anemia type: due to chronic kidney disease Plan: Epogen with dialysis. HGB stable (3) Hypertension Code(s): I10 - Essential (primary) hypertension Status: Acute Plan: Well controlled, will monitor. (4) Diabetes Code(s): E11.9 - Type 2 diabetes mellitus without complications Status: Acute Plan: Maintain blood sugars between 140 mg /dl to 180 mg/dl while hospitalized. Well controlled. <Smiley Barth - Last Filed: 04/03/18 15:03> - Assessment (1) Acute renal failure Code(s): N17.9 - Acute kidney failure, unspecified Status: Acute Plan: Patient seen and examined, agree with above. Follow the BMP in AM. If no improvement, HD tomorrow and will start out patient HD arrangement. (2) Anemia Code(s): D64.9 - Anemia, unspecified Status: Acute Qualifiers: Anemia type: due to chronic kidney disease (3) Hypertension Code(s): I10 - Essential (primary) hypertension Status: Acute (4) Diabetes Code(s): E11.9 - Type 2 diabetes mellitus without complications Status: Acute <Brianna Blevins - Last Filed: 04/03/18 19:06>
[2018-04-03] MEDS: QUEtiapine 25 MG Tablet PO SCH (20:58)
[2018-04-04] MEDS: Levothyroxine 88 MCG Tablet PO SCH (05:27)
[2018-04-04] MEDS: Senna/Docusate Sodium 8.6/50 MG Tablet PO SCH ×2 (08:03→22:29)
[2018-04-04] MEDS: Folic Acid 1 MG Tablet PO SCH (08:03)
[2018-04-04] MEDS: levETIRAcetam 500 MG Tablet PO SCH ×2 (08:03→22:29)
[2018-04-04 08:46] LABS: Calcium 9.5 mg/dL (8.5-10.1)
--- NOTE | 2018-04-04 11:46 | P.PNNP ---
Subjective Interval history: Seen during hemodialysis tolerating well. No shortness of breath, nausea, or vomiting. <Smiley Barth - Last Filed: 04/04/18 11:42> Physical Exam Vital signs: Vital Signs 04/03/18 11:50 04/03/18 15:21 04/03/18 16:55 Temperature 98.6 F 98.4 F Pulse Rate 91 H 92 H 83 Respiratory Rate 20 20 Blood Pressure 122/83 157/88 H Pulse Oximetry 96 97 04/03/18 20:26 04/03/18 21:30 04/04/18 00:00 Temperature 98.8 F Pulse Rate 81 87 74 Respiratory Rate 20 Blood Pressure 144/87 H Pulse Oximetry 95 04/04/18 00:43 04/04/18 04:00 04/04/18 04:54 Temperature 97.6 F 97.6 F Pulse Rate 78 70 77 Respiratory Rate 20 20 Blood Pressure 131/69 135/81 Pulse Oximetry 97 96 04/04/18 08:00 04/04/18 11:25 Temperature 97.8 F Pulse Rate 72 82 Respiratory Rate 20 Blood Pressure 159/79 H Pulse Oximetry 95 Intake & Output 04/03/18 04/04/18 04/04/18 18:59 06:59 18:59 Output Total 500 / 500 1325 / 1325 Balance -500 / -500 -1325 / -1325 Weight 93.7 kg Output: Urine 500 / 500 1325 / 1325 Other: # Voids 1 Date of Last Bowel Movement 04/03/18 04/03/18 04/03/18 Narrative: GENERAL: Well-nourished, well-developed middle-aged male patient in [facility]. SKIN: Warm and dry. No rash. Right anterior chest with dialysis catheter, no surrounding erythema. HEENT: Normocephalic. Atraumatic. Mucous membranes pink and moist. CARDIOVASCULAR: Regular rate and rhythm. RESPIRATORY: No accessory muscle use. Clear to auscultation. Breath sounds equal bilaterally. GASTROINTESTINAL: Abdomen soft, non-tender, nondistended. Normoactive bowel sounds x4. MUSCULOSKELETAL: No obvious deformities. Extremities without clubbing, cyanosis , or edema. NEUROLOGICAL: Awake and alert. No obvious cranial nerve deficits. Moving all extremities spontaneously. Normal speech. - Urinary Catheter Management Indwelling Temp Sensing Catheter Cath placed during this visit: yes, but has since been removed by the nurse Reason for continuing: Decision to DC catheter Insertion date: 01/14/18 Insertion time: 22:00 Removal date: 01/21/18 Removal time: 18:00 Straight Cath placed during this visit: yes, but has since been removed by the nurse Reason for continuing: Acute urinary retention Insertion date: 03/16/18 Insertion time: 00:50 Removal date: 03/01/18 Removal time: 23:30 <Smiley Barth - Last Filed: 04/04/18 11:42> Vital signs: Vital Signs 04/03/18 21:30 04/04/18 00:00 04/04/18 00:43 Temperature 97.6 F Pulse Rate 87 74 78 Respiratory Rate 20 Blood Pressure 131/69 Pulse Oximetry 97 04/04/18 04:00 04/04/18 04:54 04/04/18 08:00 Temperature 97.6 F 97.8 F Pulse Rate 70 77 72 Respiratory Rate 20 20 Blood Pressure 135/81 159/79 H Pulse Oximetry 96 95 04/04/18 11:25 04/04/18 16:00 04/04/18 20:00 Temperature 99.0 F 97.8 F Pulse Rate 82 89 88 Respiratory Rate 20 18 Blood Pressure 121/81 153/91 H Pulse Oximetry 94 L 95 Intake & Output 04/04/18 04/04/18 04/05/18 06:59 18:59 06:59 Output Total 1325 / 1325 3425 / 3425 Balance -1325 / -1325 -3425 / -3425 Weight 93.7 kg Output: Urine 1325 / 1325 425 / 425 Hemodialysis Amount 3000 / 3000 Other: # Voids 1 Date of Last Bowel Movement 04/03/18 04/04/18 04/04/18 # Bowel Movements 1 1 - Urinary Catheter Management Indwelling Temp Sensing Catheter Cath placed during this visit: no Straight Cath placed during this visit: no <Brianna Blevins - Last Filed: 04/04/18 21:26> Assessment and Plan - Assessment (1) Acute renal failure Code(s): N17.9 - Acute kidney failure, unspecified Status: Acute Plan: Remains dialysis dependent at this time. First HD 01/17/18 , RIJ PermCath placed 02/08/18 HD on Per renal biopsy patient has ATN and cast Nephropathy, due to Rhabdo. Medications should be adjusted for the patient's estimated GFR if clinically indicated. Avoid agents with significant potential for nephrotoxicity possible including NSAIDs for analgesia, iodine contrast agents. Gadolinium is contraindicated if the GFR is below 30. Monitor UOP and electrolytes Creatinine remains elevated at 5, non oliguric Dr. Blevins to start paperwork for ESRD HD today will remove fluid as tolerated. (2) Anemia Code(s): D64.9 - Anemia, unspecified Status: Acute Qualifiers: Anemia type: due to chronic kidney disease Plan: Epogen with dialysis. HGB stable (3) Hypertension Code(s): I10 - Essential (primary) hypertension Status: Acute Plan: Well controlled, will monitor. (4) Diabetes Code(s): E11.9 - Type 2 diabetes mellitus without complications Status: Acute Plan: Maintain blood sugars between 140 mg /dl to 180 mg/dl while hospitalized. Well controlled. <Smiley Barth - Last Filed: 04/04/18 11:42> - Assessment (1) Acute renal failure Code(s): N17.9 - Acute kidney failure, unspecified Status: Acute Plan: Patient seen and examined, agree with above. I spoke to case consultant to start arrangement for out patient HD. Patient will be considered now ESRD as Creatinine not improving. (2) Anemia Code(s): D64.9 - Anemia, unspecified Status: Acute Qualifiers: Anemia type: due to chronic kidney disease (3) Hypertension Code(s): I10 - Essential (primary) hypertension Status: Acute (4) Diabetes Code(s): E11.9 - Type 2 diabetes mellitus without complications Status: Acute <Brianna Blevins - Last Filed: 04/04/18 21:26>
[2018-04-04] MEDS: Heparin 10,000 UNITS/10 ML Vial (for IV use) OTHER PRN (12:02)
[2018-04-04] MEDS: amLODIPine 10 MG Tablet PO SCH (13:26)
[2018-04-04] MEDS: Carvedilol 6.25 MG Tablet PO SCH ×2 (13:26→22:28)
--- NOTE | 2018-04-04 18:23 | P.PNIM ---
Subjective Interval history: Follow-up acute renal failure on hemodialysis, anemia, hypertension and diabetes mellitus type 2 Patient seen and examined status post dialysis. Resting in bed. He denies any discomfort. No fevers or chills. He states he feels as if he is making more urine now and it is clearer than it used to be. Inquiring as to whether his renal function may be improving. Physical Exam Vital signs: Vital Signs 04/03/18 20:26 04/03/18 21:30 04/04/18 00:00 Temperature 98.8 F Pulse Rate 81 87 74 Respiratory Rate 20 Blood Pressure 144/87 H Pulse Oximetry 95 04/04/18 00:43 04/04/18 04:00 04/04/18 04:54 Temperature 97.6 F 97.6 F Pulse Rate 78 70 77 Respiratory Rate 20 20 Blood Pressure 131/69 135/81 Pulse Oximetry 97 96 04/04/18 08:00 04/04/18 11:25 Temperature 97.8 F Pulse Rate 72 82 Respiratory Rate 20 Blood Pressure 159/79 H Pulse Oximetry 95 Intake & Output 04/03/18 04/04/18 04/04/18 18:59 06:59 18:59 Output Total 500 / 500 1325 / 1325 3425 / 3425 Balance -500 / -500 -1325 / -1325 -3425 / -3425 Weight 93.7 kg Output: Urine 500 / 500 1325 / 1325 425 / 425 Hemodialysis Amount 3000 / 3000 Other: # Voids 1 1 Date of Last Bowel Movement 04/03/18 04/03/18 04/03/18 Narrative: GENERAL: Well-developed, well-nourished, male in no acute distress, lying in bed SKIN: Warm and dry. Right subclavian AV graft intact HEAD: Atraumatic. Normocephalic. EYES: Pupils equal and round. No scleral icterus. No injection or drainage., Wearing eyeglasses ENT: No nasal bleeding or discharge. Mucous membranes pink and moist. NECK: Trachea midline. No JVD. CARDIOVASCULAR: Regular rate and rhythm. RESPIRATORY: No accessory muscle use. Clear to auscultation. Breath sounds equal bilaterally. GASTROINTESTINAL: Abdomen obese soft, non-tender, nondistended. Hepatic and splenic margins not palpable. MUSCULOSKELETAL: Extremities without clubbing, cyanosis. Bilateral lower extremity with trace edema no obvious deformities. RIJ permacath. NEUROLOGICAL: Awake and alert. No obvious cranial nerve deficits. Generalized weakness, moving all 4 extremities normal speech. PSYCHIATRIC: Flat mood and affect; insight and judgment poor. Urinary Catheter Management Indwelling Temp Sensing Catheter: Cath placed during this visit: yes, but has since been removed by the nurse Reason for continuing: Decision to DC catheter Insertion date: 01/14/18 Insertion time: 22:00 Removal date: 01/21/18 Removal time: 18:00 Straight: Cath placed during this visit: yes, but has since been removed by the nurse Reason for continuing: Acute urinary retention Insertion date: 03/16/18 Insertion time: 00:50 Removal date: 03/01/18 Removal time: 23:30 Results Labs CBC & Chem 7: 04/02/18 09:00 04/04/18 07:35 Procedures Procedures: Left IJ HD tunneled cath placed 02/08/18 by IR Assessment and Plan (1) Acute renal failure: Code(s): N17.9 - Acute kidney failure, unspecified Status: Acute (2) Anemia: Code(s): D64.9 - Anemia, unspecified Status: Acute (3) Hypertension: Code(s): I10 - Essential (primary) hypertension Status: Acute (4) Diabetes: Code(s): E11.9 - Type 2 diabetes mellitus without complications Status: Acute Plan 62-year-old white male who was admitted with cardiogenic shock and acute respiratory failure requiring CPR and epinephrine in the field, after being found down at home and being witnessed to possibly have undergone seizure-like activity. Intubation was attempted in the field but were unable to do so, patient was ultimately intubated in the hospital, started on pressors, placed in the ICU on mechanical ventilation. Found to have bilateral pneumothoraces with chest tubes placed, had developed some pneumoperitoneum which surgically deemed might have been a leak from his chest tubes as opposed to an acute surgical abdomen. Patient was started on antibiotics empirically for possible aspiration pneumonia but was ultimately discontinued off of them by infectious disease. Developed rhabdomyolysis with worsening acute renal failure which became sustained, with the patient now undergoing dialysis. Ultimately was discontinued off pressors, cardiology deferred heart cath due to renal failure. Patient had difficulty following commands after he was discontinued off of sedation and after extubation. Had an MRI done on 01/17 which showed no acute findings, only an older right parietal CVA. EEG was done which was unremarkable. 04/04/18 - no change in patient condition, s/p dialysis today, no distress ESRD on HD -dialysis M, W, Fr. First dialysis 01/09/18 -Nephrology consulted and following -R IJ permacath placement 02/08/18 -s/p renal biopsy per IR 03/07/18 -no recovery in renal function, Cr remains around 5. Nephrology to start paperwork for ESRD. 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 Possible anoxic brain injury -Neurology consulted and following -PT/OT/ST -ok to get out of bed per Neurology with assistance Dysphagia related to encephalopathy -ST rec mechanical soft, thin liquid diet Possible seizure -continue Keppra -EEG was negative NSTEMI -troponins 0.52, 1.89 & 2.37 respectively -cardiology consulted, rec conservative medical management -continue ASA, Coreg, Isosorbide, amlodipine and atorvastatin Bilateral pneumothoraces - stable -chest tube removed 01/28/18 Pneumomediastinum Pneumoperitoneum with right retroperitoneal gas around the right kidney -Likely secondary to bilateral pneumothoraces with no surgical intervention warranted per general surgery Acute respiratory failure -continue supplemental O2 PRN -pulmonary following Cirrhosis -likely secondary to alcohol abuse -continue BB Type II diabetes mellitus, uncontrolled -accuchecks ac/hs with SSI -Continue Aspart Sliding scale insulin. -Will continue Levemir 5 units QHS. Goal BG 140-180. -ADA diet Hypothyroidism -continue Synthroid Normocytic anemia - stable -s/p PRBC transfusion -epogen with dialysis MDM: self Code: DNR GI ppx: Protonix PO DVT ppx: Heparin SQ Discussed with: RN, patient, CM Dispo: awaiting placement once cleared by nephrology Progress Note: Quality VTE Deep Vein Thrombosis/Pulmonary Embolism Present on Admission: No _ (1) Diabetes Qualifiers: Chronic kidney disease stage: Diabetes mellitus complication detail: Diabetes mellitus complication status: Diabetes mellitus snf insulin use : Diabetes mellitus macular edema: Diabetes mellitus type: Diabetic retinopathy severity: Laterality: Proliferative retinopathy type: (2) Acute renal failure Qualifiers: Acute renal failure type: (3) Anemia Qualifiers: Anemia type: due to chronic kidney disease Bone marrow failure anemia type: Chronic kidney disease stage: Folate deficiency anemia type: Hemolytic anemia type: Iron deficiency anemia type: Other causes of anemia: Vitamin B12 deficiency anemia type: (4) Hypertension Qualifiers: Hypertension type:
[2018-04-04] MEDS: QUEtiapine 25 MG Tablet PO SCH (22:28)
[2018-04-05] MEDS: Levothyroxine 88 MCG Tablet PO SCH (05:45)
[2018-04-05] MEDS: amLODIPine 10 MG Tablet PO SCH (08:06)
[2018-04-05] MEDS: Carvedilol 6.25 MG Tablet PO SCH ×2 (08:06→22:24)
[2018-04-05] MEDS: Senna/Docusate Sodium 8.6/50 MG Tablet PO SCH ×2 (08:06→22:25)
[2018-04-05] MEDS: Folic Acid 1 MG Tablet PO SCH (08:06)
[2018-04-05] MEDS: levETIRAcetam 500 MG Tablet PO SCH ×2 (08:06→22:24)
--- NOTE | 2018-04-05 12:29 | P.PNNP ---
Subjective Interval history: Patient is alert, no SOB, not in distress. Physical Exam Vital signs: Vital Signs 04/04/18 16:00 04/04/18 20:00 04/05/18 00:00 Temperature 99.0 F 97.8 F 97.8 F Pulse Rate 89 91 H 109 H Respiratory Rate 20 18 20 Blood Pressure 121/81 153/91 H 129/71 Pulse Oximetry 94 L 95 95 04/05/18 04:00 04/05/18 07:45 04/05/18 08:00 Temperature 97.8 F 97.7 F Pulse Rate 75 73 80 Respiratory Rate 18 18 Blood Pressure 130/72 119/73 Pulse Oximetry 95 92 L Intake & Output 04/04/18 04/05/18 04/05/18 18:59 06:59 18:59 Intake Total 450 / 450 Output Total 3425 / 3425 800 / 800 325 / 325 Balance -3425 / -3425 -350 / -350 -325 / -325 Intake: Other 450 / 450 Output: Urine 425 / 425 800 / 800 325 / 325 Hemodialysis Amount 3000 / 3000 Other: # Voids 1 Date of Last Bowel Movement 04/04/18 04/04/18 04/03/18 # Bowel Movements 1 1 1 Narrative: GENERAL: Well-nourished, well-developed middle-aged male patient in [facility]. SKIN: Warm and dry. No rash. Right anterior chest with dialysis catheter, no surrounding erythema. HEENT: Normocephalic. Atraumatic. Mucous membranes pink and moist. CARDIOVASCULAR: Regular rate and rhythm. RESPIRATORY: No accessory muscle use. Clear to auscultation. Breath sounds equal bilaterally. GASTROINTESTINAL: Abdomen soft, non-tender, nondistended. Normoactive bowel sounds x4. MUSCULOSKELETAL: No obvious deformities. Extremities without clubbing, cyanosis , or edema. NEUROLOGICAL: Awake and alert. No obvious cranial nerve deficits. Moving all extremities spontaneously. Normal speech. - Urinary Catheter Management Indwelling Temp Sensing Catheter Cath placed during this visit: yes, but has since been removed by the nurse Reason for continuing: Decision to DC catheter Insertion date: 01/14/18 Insertion time: 22:00 Removal date: 01/21/18 Removal time: 18:00 Straight Cath placed during this visit: yes, but has since been removed by the nurse Reason for continuing: Acute urinary retention Insertion date: 03/16/18 Insertion time: 00:50 Removal date: 03/01/18 Removal time: 23:30 Assessment and Plan - Assessment (1) Acute renal failure Code(s): N17.9 - Acute kidney failure, unspecified Status: Acute Plan: Patient with Chronic kidney disease and develop SHERITA. Still has elevated BUN and Creatinine I spoke to caser in to start arrangement for out patient HD. Patient will be considered now ESRD as Creatinine not improving. HD will be in AM. (2) Anemia Code(s): D64.9 - Anemia, unspecified Status: Acute Qualifiers: Anemia type: due to chronic kidney disease Plan: Epogen with dialysis. HGB stable (3) Hypertension Code(s): I10 - Essential (primary) hypertension Status: Acute Plan: Well controlled, will monitor. (4) Diabetes Code(s): E11.9 - Type 2 diabetes mellitus without complications Status: Acute Plan: Maintain blood sugars between 140 mg /dl to 180 mg/dl while hospitalized. Well controlled.
--- NOTE | 2018-04-05 14:54 | P.PNIM ---
Subjective Interval history: Follow-up acute renal failure on hemodialysis, anemia, hypertension and diabetes mellitus type 2 Patient is resting in bed eating chips. He states he is ready to go home soon. Discussed with patient that Nephrology noted that there has not been any improvement in his renal function and that he will need outpatient dialysis. This will have to be arranged by case management prior to him being discharged. He states he understands and is in agreement with plan of care. Physical Exam Vital signs: Vital Signs 04/04/18 16:00 04/04/18 20:00 04/05/18 00:00 Temperature 99.0 F 97.8 F 97.8 F Pulse Rate 89 91 H 109 H Respiratory Rate 20 18 20 Blood Pressure 121/81 153/91 H 129/71 Pulse Oximetry 94 L 95 95 04/05/18 04:00 04/05/18 07:45 04/05/18 08:00 Temperature 97.8 F 97.7 F Pulse Rate 75 73 80 Respiratory Rate 18 18 Blood Pressure 130/72 119/73 Pulse Oximetry 95 92 L 04/05/18 12:10 Temperature 97.7 F Pulse Rate 79 Respiratory Rate 20 Blood Pressure 122/79 Pulse Oximetry 93 L Intake & Output 04/04/18 04/05/18 04/05/18 18:59 06:59 18:59 Intake Total 450 / 450 Output Total 3425 / 3425 800 / 800 325 / 325 Balance -3425 / -3425 -350 / -350 -325 / -325 Intake: Other 450 / 450 Output: Urine 425 / 425 800 / 800 325 / 325 Hemodialysis Amount 3000 / 3000 Other: # Voids 1 Date of Last Bowel Movement 04/04/18 04/04/18 04/03/18 # Bowel Movements 1 1 1 Narrative: GENERAL: Well-developed, well-nourished, male in no acute distress, lying in bed SKIN: Warm and dry. Right subclavian AV graft intact HEAD: Atraumatic. Normocephalic. EYES: Pupils equal and round. No scleral icterus. No injection or drainage., Wearing eyeglasses ENT: No nasal bleeding or discharge. Mucous membranes pink and moist. NECK: Trachea midline. No JVD. CARDIOVASCULAR: Regular rate and rhythm. RESPIRATORY: No accessory muscle use. Clear to auscultation. Breath sounds equal bilaterally. GASTROINTESTINAL: Abdomen obese soft, non-tender, nondistended. Hepatic and splenic margins not palpable. MUSCULOSKELETAL: Extremities without clubbing, cyanosis. Bilateral lower extremity with trace edema no obvious deformities. RIJ permacath. NEUROLOGICAL: Awake and alert. No obvious cranial nerve deficits. Generalized weakness, moving all 4 extremities normal speech. PSYCHIATRIC: Flat mood and affect; insight and judgment poor. Urinary Catheter Management Indwelling Temp Sensing Catheter: Cath placed during this visit: yes, but has since been removed by the nurse Reason for continuing: Decision to DC catheter Insertion date: 01/14/18 Insertion time: 22:00 Removal date: 01/21/18 Removal time: 18:00 Straight: Cath placed during this visit: yes, but has since been removed by the nurse Reason for continuing: Acute urinary retention Insertion date: 03/16/18 Insertion time: 00:50 Removal date: 03/01/18 Removal time: 23:30 Results Labs CBC & Chem 7: 04/02/18 09:00 04/04/18 07:35 Procedures Procedures: Left IJ HD tunneled cath placed 02/08/18 by IR Assessment and Plan (1) Acute renal failure: Code(s): N17.9 - Acute kidney failure, unspecified Status: Acute (2) Anemia: Code(s): D64.9 - Anemia, unspecified Status: Acute (3) Hypertension: Code(s): I10 - Essential (primary) hypertension Status: Acute (4) Diabetes: Code(s): E11.9 - Type 2 diabetes mellitus without complications Status: Acute Plan 62-year-old white male who was admitted with cardiogenic shock and acute respiratory failure requiring CPR and epinephrine in the field, after being found down at home and being witnessed to possibly have undergone seizure-like activity. Intubation was attempted in the field but were unable to do so, patient was ultimately intubated in the hospital, started on pressors, placed in the ICU on mechanical ventilation. Found to have bilateral pneumothoraces with chest tubes placed, had developed some pneumoperitoneum which surgically deemed might have been a leak from his chest tubes as opposed to an acute surgical abdomen. Patient was started on antibiotics empirically for possible aspiration pneumonia but was ultimately discontinued off of them by infectious disease. Developed rhabdomyolysis with worsening acute renal failure which became sustained, with the patient now undergoing dialysis. Ultimately was discontinued off pressors, cardiology deferred heart cath due to renal failure. Patient had difficulty following commands after he was discontinued off of sedation and after extubation. Had an MRI done on 01/17 which showed no acute findings, only an older right parietal CVA. EEG was done which was unremarkable. 04/05/18 - no change in patient condition, s/p dialysis today, no distress ESRD on HD -dialysis M, W, Fr. First dialysis 01/09/18 -Nephrology consulted and following -R IJ permacath placement 02/08/18 -s/p renal biopsy per IR 03/07/18 -no recovery in renal function, Cr remains around 5. Nephrology dx ESRD, CM to be consulted for outpatient HD seating. 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 Possible anoxic brain injury -Neurology consulted and following -PT/OT/ST -ok to get out of bed per Neurology with assistance Dysphagia related to encephalopathy -ST rec mechanical soft, thin liquid diet Possible seizure -continue Keppra -EEG was negative NSTEMI -troponins 0.52, 1.89 & 2.37 respectively -cardiology consulted, rec conservative medical management -continue ASA, Coreg, Isosorbide, amlodipine and atorvastatin Bilateral pneumothoraces - stable -chest tube removed 01/28/18 Pneumomediastinum Pneumoperitoneum with right retroperitoneal gas around the right kidney -Likely secondary to bilateral pneumothoraces with no surgical intervention warranted per general surgery Acute respiratory failure -continue supplemental O2 PRN -pulmonary following Cirrhosis -likely secondary to alcohol abuse -continue BB Type II diabetes mellitus, uncontrolled -accuchecks ac/hs with SSI -Continue Aspart Sliding scale insulin. -Will continue Levemir 5 units QHS. Goal BG 140-180. -ADA diet Hypothyroidism -continue Synthroid Normocytic anemia - stable -s/p PRBC transfusion -epogen with dialysis MDM: self Code: DNR GI ppx: Protonix PO DVT ppx: Heparin SQ Discussed with: RN, patient, CM Dispo: awaiting placement once cleared by nephrology, CM to arrange for outpatient HD Progress Note: Quality VTE Deep Vein Thrombosis/Pulmonary Embolism Present on Admission: No _ (1) Acute renal failure Qualifiers: Acute renal failure type: (2) Anemia Qualifiers: Anemia type: due to chronic kidney disease Iron deficiency anemia type: Vitamin B12 deficiency anemia type: Folate deficiency anemia type: Bone marrow failure anemia type: Hemolytic anemia type: Other causes of anemia: Chronic kidney disease stage: (3) Hypertension Qualifiers: Hypertension type: (4) Diabetes Qualifiers: Diabetes mellitus type: Diabetes mellitus prison insulin use: Diabetes mellitus complication status: Diabetes mellitus complication detail: Diabetic retinopathy severity: Proliferative retinopathy type: Diabetes mellitus macular edema: Laterality: Chronic kidney disease stage:
[2018-04-05] MEDS: QUEtiapine 25 MG Tablet PO SCH (22:24)
[2018-04-06] MEDS: Levothyroxine 88 MCG Tablet PO SCH (05:29)
--- NOTE | 2018-04-06 10:51 | P.PNNP ---
Subjective Interval history: Sitting on side of bed. No shortness of breath, nausea, or vomiting. HD planned for today. <Smiley Barth - Last Filed: 04/06/18 10:48> Physical Exam Vital signs: Vital Signs 04/05/18 12:10 04/05/18 16:15 04/05/18 20:00 Temperature 97.7 F 97.9 F 98.3 F Pulse Rate 79 74 89 Respiratory Rate 20 20 19 Blood Pressure 122/79 139/76 123/81 Pulse Oximetry 93 L 93 L 93 L 04/06/18 00:00 04/06/18 04:25 04/06/18 08:19 Temperature 98.1 F 98.0 F 97.9 F Pulse Rate 105 H 75 87 Respiratory Rate 16 18 18 Blood Pressure 125/79 145/78 H 121/75 Pulse Oximetry 92 L 95 92 L Intake & Output 04/05/18 04/06/18 04/06/18 18:59 06:59 18:59 Output Total 550 / 550 400 / 400 Balance -550 / -550 -400 / -400 Weight 93.3 kg Output: Urine 550 / 550 400 / 400 Other: Date of Last Bowel Movement 04/03/18 04/06/18 04/06/18 # Bowel Movements 1 1 Narrative: GENERAL: Well-nourished, well-developed middle-aged male patient in [facility]. SKIN: Warm and dry. No rash. Right anterior chest with dialysis catheter, no surrounding erythema. HEENT: Normocephalic. Atraumatic. Mucous membranes pink and moist. CARDIOVASCULAR: Regular rate and rhythm. RESPIRATORY: No accessory muscle use. Clear to auscultation. Breath sounds equal bilaterally. GASTROINTESTINAL: Abdomen soft, non-tender, nondistended. Normoactive bowel sounds x4. MUSCULOSKELETAL: No obvious deformities. Extremities without clubbing, cyanosis , or edema. NEUROLOGICAL: Awake and alert. No obvious cranial nerve deficits. Moving all extremities spontaneously. Normal speech. - Urinary Catheter Management Indwelling Temp Sensing Catheter Cath placed during this visit: yes, but has since been removed by the nurse Reason for continuing: Decision to DC catheter Insertion date: 01/14/18 Insertion time: 22:00 Removal date: 01/21/18 Removal time: 18:00 Straight Cath placed during this visit: yes, but has since been removed by the nurse Reason for continuing: Acute urinary retention Insertion date: 03/16/18 Insertion time: 00:50 Removal date: 03/01/18 Removal time: 23:30 <Smiley Barth - Last Filed: 04/06/18 10:48> Vital signs: Vital Signs 04/05/18 20:00 04/06/18 00:00 04/06/18 04:25 Temperature 98.3 F 98.1 F 98.0 F Pulse Rate 89 105 H 75 Respiratory Rate 19 16 18 Blood Pressure 123/81 125/79 145/78 H Pulse Oximetry 93 L 92 L 95 04/06/18 08:19 04/06/18 16:39 Temperature 97.9 F 97.9 F Pulse Rate 87 80 Respiratory Rate 18 18 Blood Pressure 121/75 135/75 Pulse Oximetry 92 L 94 L Intake & Output 04/06/18 04/06/18 04/07/18 06:59 18:59 06:59 Intake Total 750 / 750 Output Total 400 / 400 750 / 750 Balance -400 / -400 0 / 0 Weight 93.3 kg Intake: Oral 750 / 750 Output: Urine 400 / 400 750 / 750 Other: Date of Last Bowel Movement 04/06/18 04/06/18 # Bowel Movements 1 1 - Urinary Catheter Management Indwelling Temp Sensing Catheter Cath placed during this visit: no Straight Cath placed during this visit: no <Brianna Blevins - Last Filed: 04/06/18 19:21> Assessment and Plan - Assessment (1) Acute renal failure Code(s): N17.9 - Acute kidney failure, unspecified Status: Acute Plan: Remains dialysis dependent at this time. First HD 01/17/18 , RIJ PermCath placed 02/08/18 HD on Per renal biopsy patient has ATN and cast Nephropathy, due to Rhabdo. Medications should be adjusted for the patient's estimated GFR if clinically indicated. Avoid agents with significant potential for nephrotoxicity possible including NSAIDs for analgesia, iodine contrast agents. Gadolinium is contraindicated if the GFR is below 30. Monitor UOP and electrolytes Creatinine remains elevated at 5, non oliguric Consider ESRD as creatinine not improving. project product manager to arrange outpatient HD. HD today will remove fluid as tolerated. (2) Anemia Code(s): D64.9 - Anemia, unspecified Status: Acute Qualifiers: Anemia type: due to chronic kidney disease Plan: Epogen with dialysis. HGB stable (3) Hypertension Code(s): I10 - Essential (primary) hypertension Status: Acute Plan: Well controlled, will monitor. (4) Diabetes Code(s): E11.9 - Type 2 diabetes mellitus without complications Status: Acute Plan: Maintain blood sugars between 140 mg /dl to 180 mg/dl while hospitalized. Well controlled. <Smiley Barth - Last Filed: 04/06/18 10:48> - Assessment (1) Acute renal failure Code(s): N17.9 - Acute kidney failure, unspecified Status: Acute Plan: Patient seen and examined, agree with above. Creatinine remain elevated, will consider now End stage renal disease. HD today, to start placement and out patient HD. (2) Anemia Code(s): D64.9 - Anemia, unspecified Status: Acute Qualifiers: Anemia type: due to chronic kidney disease (3) Hypertension Code(s): I10 - Essential (primary) hypertension Status: Acute (4) Diabetes Code(s): E11.9 - Type 2 diabetes mellitus without complications Status: Acute <Brianna Blevins - Last Filed: 04/06/18 19:21>
--- NOTE | 2018-04-06 10:58 | P.PNIM ---
Subjective Interval history: Follow-up acute renal failure on hemodialysis, anemia, hypertension and diabetes mellitus type 2 Patient is sitting up in a recliner chair in his room. He is using his computer. He denies any pain or discomfort. States he is able to ambulate to and from the bathroom as well as around his room fairly well. No acute events overnight. Physical Exam Vital signs: Vital Signs 04/05/18 12:10 04/05/18 16:15 04/05/18 20:00 Temperature 97.7 F 97.9 F 98.3 F Pulse Rate 79 74 89 Respiratory Rate 20 19 Blood Pressure 122/79 139/76 123/81 Pulse Oximetry 93 L 93 L 93 L 04/06/18 00:00 04/06/18 04:25 04/06/18 08:19 Temperature 98.1 F 98.0 F 97.9 F Pulse Rate 105 H 75 87 Respiratory Rate 16 18 18 Blood Pressure 125/79 145/78 H 121/75 Pulse Oximetry 92 L 95 92 L Intake & Output 04/05/18 04/06/18 04/06/18 18:59 06:59 18:59 Output Total 550 / 550 400 / 400 Balance -550 / -550 -400 / -400 Weight 93.3 kg Output: Urine 550 / 550 400 / 400 Other: Date of Last Bowel Movement 04/03/18 04/06/18 04/06/18 # Bowel Movements 1 1 Narrative: GENERAL: well-developed, well-nourished, male in no acute distress, lying in bed SKIN: Warm and dry. Right subclavian AV graft intact HEAD: Atraumatic. Normocephalic. EYES: Pupils equal and round. No scleral icterus. No injection or drainage., Wearing eyeglasses ENT: No nasal bleeding or discharge. Mucous membranes pink and moist. NECK: Trachea midline. No JVD. CARDIOVASCULAR: Regular rate and rhythm. RESPIRATORY: No accessory muscle use. Clear to auscultation. Breath sounds equal bilaterally. GASTROINTESTINAL: Abdomen obese soft, non-tender, nondistended. Hepatic and splenic margins not palpable. MUSCULOSKELETAL: Extremities without clubbing, cyanosis. Bilateral lower extremity with trace edema no obvious deformities. RIJ permacath. NEUROLOGICAL: Awake and alert. No obvious cranial nerve deficits. Generalized weakness, moving all 4 extremities normal speech. PSYCHIATRIC: normal mood and affect; insight and judgment poor. Urinary Catheter Management Indwelling Temp Sensing Catheter: Cath placed during this visit: yes, but has since been removed by the nurse Reason for continuing: Decision to DC catheter Insertion date: 01/14/18 Insertion time: 22:00 Removal date: 01/21/18 Removal time: 18:00 Straight: Cath placed during this visit: yes, but has since been removed by the nurse Reason for continuing: Acute urinary retention Insertion date: 03/16/18 Insertion time: 00:50 Removal date: 03/01/18 Removal time: 23:30 Results Labs CBC & Chem 7: 04/02/18 09:00 04/04/18 07:35 Procedures Procedures: Left IJ HD tunneled cath placed 02/08/18 by IR Assessment and Plan (1) Acute renal failure: Code(s): N17.9 - Acute kidney failure, unspecified Status: Acute (2) Anemia: Code(s): D64.9 - Anemia, unspecified Status: Acute (3) Hypertension: Code(s): I10 - Essential (primary) hypertension Status: Acute (4) Diabetes: Code(s): E11.9 - Type 2 diabetes mellitus without complications Status: Acute Plan 62-year-old white male who was admitted with cardiogenic shock and acute respiratory failure requiring CPR and epinephrine in the field, after being found down at home and being witnessed to possibly have undergone seizure-like activity. Intubation was attempted in the field but were unable to do so, patient was ultimately intubated in the hospital, started on pressors, placed in the ICU on mechanical ventilation. Found to have bilateral pneumothoraces with chest tubes placed, had developed some pneumoperitoneum which surgically deemed might have been a leak from his chest tubes as opposed to an acute surgical abdomen. Patient was started on antibiotics empirically for possible aspiration pneumonia but was ultimately discontinued off of them by infectious disease. Developed rhabdomyolysis with worsening acute renal failure which became sustained, with the patient now undergoing dialysis. Ultimately was discontinued off pressors, cardiology deferred heart cath due to renal failure. Patient had difficulty following commands after he was discontinued off of sedation and after extubation. Had an MRI done on 01/17 which showed no acute findings, only an older right parietal CVA. EEG was done which was unremarkable. 04/06/18 - no change in patient condition, no acute events overnight. No change to current treatment plan. Patient scheduled to undergo dialysis today. ESRD on HD -dialysis M, W, Fr. First dialysis 01/09/18 -Nephrology consulted and following -R IJ permacath placement 02/08/18 -s/p renal biopsy per IR 03/07/18 -no recovery in renal function, Cr remains around 5. Nephrology dx ESRD, CM to be consulted for outpatient HD seating. 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 Possible anoxic brain injury -Neurology consulted and following -PT/OT/ST -ok to get out of bed per Neurology with assistance Dysphagia related to encephalopathy -improved -ST recommends regular diet with thin liquids -continue renal and diabetic diet Possible seizure -continue Keppra -EEG was negative N-STEMI -troponin 0.52, 1.89 & 2.37 respectively -cardiology consulted, rec conservative medical management -continue ASA, Coreg, Isosorbide, amlodipine and atorvastatin Bilateral pneumothoraces - stable -chest tube removed 01/28/18 Pneumomediastinum Pneumoperitoneum with right retroperitoneal gas around the right kidney -Likely secondary to bilateral pneumothoraces with no surgical intervention warranted per general surgery Acute respiratory failure -continue supplemental O2 PRN -pulmonary following Cirrhosis -likely secondary to alcohol abuse -continue BB Type II diabetes mellitus, controlled -accuchecks ac/hs with SSI -Continue Aspart Sliding scale insulin. -Will continue Levemir 5 units QHS. Goal BG 140-180. -ADA diet Hypothyroidism -continue Synthroid Normocytic anemia - stable -s/p PRBC transfusion -epogen with dialysis MDM: self Code: DNR GI ppx: Protonix PO DVT ppx: Heparin SQ Discussed with: RN, patient, CM Dispo: awaiting placement once cleared by nephrology, CM to arrange for outpatient HD Progress Note: Quality VTE Deep Vein Thrombosis/Pulmonary Embolism Present on Admission: No _ (1) Acute renal failure Qualifiers: Acute renal failure type: (2) Anemia Qualifiers: Anemia type: due to chronic kidney disease Iron deficiency anemia type: Vitamin B12 deficiency anemia type: Folate deficiency anemia type: Bone marrow failure anemia type: Hemolytic anemia type: Other causes of anemia: Chronic kidney disease stage: (3) Hypertension Qualifiers: Hypertension type: (4) Diabetes Qualifiers: Diabetes mellitus type: Diabetes mellitus mcc insulin use: Diabetes mellitus complication status: Diabetes mellitus complication detail: Diabetic retinopathy severity: Proliferative retinopathy type: Diabetes mellitus macular edema: Laterality: Chronic kidney disease stage:
[2018-04-06] MEDS: Heparin 10,000 UNITS/10 ML Vial (for IV use) OTHER PRN (15:11)
[2018-04-06 15:40] LABS: Calcium 8.9 mg/dL (8.5-10.1); Carbon Dioxide 27.5 meq/L (21.0-32.0); Potassium 3.8 meq/L (3.5-5.1)
[2018-04-06] MEDS: Carvedilol 6.25 MG Tablet PO SCH ×2 (16:31→20:36)
[2018-04-06] MEDS: levETIRAcetam 500 MG Tablet PO SCH ×2 (16:31→20:36)
[2018-04-06] MEDS: Folic Acid 1 MG Tablet PO SCH (16:31)
[2018-04-06] MEDS: amLODIPine 10 MG Tablet PO SCH (16:32)
[2018-04-06] MEDS: Senna/Docusate Sodium 8.6/50 MG Tablet PO SCH ×2 (16:32→20:36)
[2018-04-06] MEDS: QUEtiapine 25 MG Tablet PO SCH (20:36)
[2018-04-07] MEDS: Levothyroxine 88 MCG Tablet PO SCH (05:42)
[2018-04-07] MEDS: Folic Acid 1 MG Tablet PO SCH (08:34)
[2018-04-07] MEDS: amLODIPine 10 MG Tablet PO SCH (08:35)
[2018-04-07] MEDS: levETIRAcetam 500 MG Tablet PO SCH ×2 (08:35→23:07)
[2018-04-07] MEDS: Senna/Docusate Sodium 8.6/50 MG Tablet PO SCH ×2 (08:35→23:07)
[2018-04-07] MEDS: Carvedilol 6.25 MG Tablet PO SCH ×2 (08:35→23:07)
--- NOTE | 2018-04-07 12:47 | P.PNNP ---
Subjective Interval history: Working on computer. No shortness of breath, nausea, vomiting or diarrhea. HD yesterday tolerated well. <Smiley Barth - Last Filed: 04/07/18 12:44> Physical Exam Vital signs: Vital Signs 04/06/18 16:39 04/06/18 20:35 04/07/18 00:55 Temperature 97.9 F 99.0 F 97.3 F L Pulse Rate 80 78 87 Respiratory Rate 18 19 Blood Pressure 135/75 129/75 104/74 Pulse Oximetry 94 L 94 L 93 L 04/07/18 05:20 04/07/18 08:07 04/07/18 11:43 Temperature 97.8 F 98.0 F 98.0 F Pulse Rate 73 79 81 Respiratory Rate 20 18 16 Blood Pressure 122/72 119/71 110/75 Pulse Oximetry 92 L 90 L 96 Intake & Output 04/06/18 04/07/18 04/07/18 18:59 06:59 18:59 Intake Total 750 / 750 Output Total 750 / 750 Balance 0 / 0 Weight 94.2 kg Intake: Oral 750 / 750 Output: Urine 750 / 750 Other: Date of Last Bowel Movement 04/06/18 04/06/18 # Bowel Movements 1 1 Narrative: GENERAL: Well-nourished, well-developed middle-aged male patient in [facility]. SKIN: Warm and dry. No rash. Right anterior chest with dialysis catheter, no surrounding erythema. HEENT: Normocephalic. Atraumatic. Mucous membranes pink and moist. CARDIOVASCULAR: Regular rate and rhythm. RESPIRATORY: No accessory muscle use. Clear to auscultation. Breath sounds equal bilaterally. GASTROINTESTINAL: Abdomen soft, non-tender, nondistended. Normoactive bowel sounds x4. MUSCULOSKELETAL: No obvious deformities. Extremities without clubbing, cyanosis , or edema. NEUROLOGICAL: Awake and alert. No obvious cranial nerve deficits. Moving all extremities spontaneously. Normal speech. - Urinary Catheter Management Indwelling Temp Sensing Catheter Cath placed during this visit: yes, but has since been removed by the nurse Reason for continuing: Decision to DC catheter Insertion date: 01/14/18 Insertion time: 22:00 Removal date: 01/21/18 Removal time: 18:00 Straight Cath placed during this visit: yes, but has since been removed by the nurse Reason for continuing: Acute urinary retention Insertion date: 03/16/18 Insertion time: 00:50 Removal date: 03/01/18 Removal time: 23:30 <Smiley Barth - Last Filed: 04/07/18 12:44> Vital signs: Vital Signs 04/06/18 20:35 04/07/18 00:55 04/07/18 05:20 Temperature 99.0 F 97.3 F L 97.8 F Pulse Rate 78 87 73 Respiratory Rate 20 19 20 Blood Pressure 129/75 104/74 122/72 Pulse Oximetry 94 L 93 L 92 L 04/07/18 08:07 04/07/18 11:43 04/07/18 16:20 Temperature 98.0 F 98.0 F 98.5 F Pulse Rate 79 81 76 Respiratory Rate 18 16 18 Blood Pressure 119/71 110/75 123/75 Pulse Oximetry 90 L 96 95 Intake & Output 04/06/18 04/07/18 04/07/18 18:59 06:59 18:59 Intake Total 750 / 750 2500 / 2500 Output Total 750 / 750 750 / 750 Balance 0 / 0 1750 / 1750 Weight 94.2 kg Intake: Oral 750 / 750 2500 / 2500 Output: Urine 750 / 750 750 / 750 Other: Date of Last Bowel Movement 04/06/18 04/06/18 04/07/18 # Bowel Movements 1 1 1 - Urinary Catheter Management Indwelling Temp Sensing Catheter Cath placed during this visit: no Straight Cath placed during this visit: no <Brianna Blevins - Last Filed: 04/07/18 18:23> Assessment and Plan - Assessment (1) Acute renal failure Code(s): N17.9 - Acute kidney failure, unspecified Status: Acute Plan: Remains dialysis dependent at this time. First HD 01/17/18 , RIJ PermCath placed 02/08/18 HD on Per renal biopsy patient has ATN and cast Nephropathy, due to Rhabdo. Medications should be adjusted for the patient's estimated GFR if clinically indicated. Avoid agents with significant potential for nephrotoxicity possible including NSAIDs for analgesia, iodine contrast agents. Gadolinium is contraindicated if the GFR is below 30. Monitor UOP and electrolytes Creatinine remains elevated, non oliguric Consider ESRD as creatinine not improving. 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 HD yesterday tolerated well. (2) Anemia Code(s): D64.9 - Anemia, unspecified Status: Acute Qualifiers: Anemia type: due to chronic kidney disease Plan: Epogen with dialysis. HGB stable (3) Hypertension Code(s): I10 - Essential (primary) hypertension Status: Acute Plan: Well controlled, will monitor. (4) Diabetes Code(s): E11.9 - Type 2 diabetes mellitus without complications Status: Acute Plan: Maintain blood sugars between 140 mg /dl to 180 mg/dl while hospitalized. Well controlled. <Smiley Barth - Last Filed: 04/07/18 12:44> - Assessment (1) Acute renal failure Code(s): N17.9 - Acute kidney failure, unspecified Status: Acute Plan: Patient seen and examined, agree with above. No improvement in the Creatinine, HD was done yesterday. To start out patient HD work up with diagnosis of ESRD. (2) Anemia Code(s): D64.9 - Anemia, unspecified Status: Acute Qualifiers: Anemia type: due to chronic kidney disease (3) Hypertension Code(s): I10 - Essential (primary) hypertension Status: Acute (4) Diabetes Code(s): E11.9 - Type 2 diabetes mellitus without complications Status: Acute <Brianna Blevins - Last Filed: 04/07/18 18:23>
--- NOTE | 2018-04-07 14:25 | P.PNIM ---
Subjective Interval history: Follow-up acute renal failure on hemodialysis, anemia, hypertension and diabetes mellitus type 2 Patient resting in bed with laptop on his knees. He expresses frustration over having been hospitalized for so long. Discussed with patient that CM is working on arranging HD bed outpatient. He denies cough, fevers or chills. Physical Exam Vital signs: Vital Signs 04/06/18 16:39 04/06/18 20:35 04/07/18 00:55 Temperature 97.9 F 99.0 F 97.3 F L Pulse Rate 80 78 87 Respiratory Rate 18 19 Blood Pressure 135/75 129/75 104/74 Pulse Oximetry 94 L 94 L 93 L 04/07/18 05:20 04/07/18 08:07 04/07/18 11:43 Temperature 97.8 F 98.0 F 98.0 F Pulse Rate 73 79 81 Respiratory Rate 20 18 16 Blood Pressure 122/72 119/71 110/75 Pulse Oximetry 92 L 90 L 96 Intake & Output 04/06/18 04/07/18 04/07/18 18:59 06:59 18:59 Intake Total 750 / 750 Output Total 750 / 750 Balance 0 / 0 Weight 94.2 kg Intake: Oral 750 / 750 Output: Urine 750 / 750 Other: Date of Last Bowel Movement 04/06/18 04/06/18 04/07/18 # Bowel Movements 1 1 Narrative: GENERAL: well-developed, well-nourished, male in no acute distress, lying in bed SKIN: Warm and dry. Right subclavian AV graft intact HEAD: Atraumatic. Normocephalic. EYES: Pupils equal and round. No scleral icterus. No injection or drainage., Wearing eyeglasses ENT: No nasal bleeding or discharge. Mucous membranes pink and moist. NECK: Trachea midline. No JVD. CARDIOVASCULAR: Regular rate and rhythm. RESPIRATORY: No accessory muscle use. Clear to auscultation. Breath sounds equal bilaterally. GASTROINTESTINAL: Abdomen obese soft, non-tender, nondistended. Hepatic and splenic margins not palpable. MUSCULOSKELETAL: Extremities without clubbing, cyanosis. Bilateral lower extremity with trace edema no obvious deformities. RIJ permacath. NEUROLOGICAL: Awake and alert. No obvious cranial nerve deficits. Generalized weakness, moving all 4 extremities normal speech. PSYCHIATRIC: normal mood and affect; insight and judgment poor. Urinary Catheter Management Indwelling Temp Sensing Catheter: Cath placed during this visit: yes, but has since been removed by the nurse Reason for continuing: Decision to DC catheter Insertion date: 01/14/18 Insertion time: 22:00 Removal date: 01/21/18 Removal time: 18:00 Straight: Cath placed during this visit: yes, but has since been removed by the nurse Reason for continuing: Acute urinary retention Insertion date: 03/16/18 Insertion time: 00:50 Removal date: 03/01/18 Removal time: 23:30 Results Labs CBC & Chem 7: 04/02/18 09:00 04/06/18 13:05 Procedures Procedures: Left IJ HD tunneled cath placed 02/08/18 by IR Assessment and Plan (1) Acute renal failure: Code(s): N17.9 - Acute kidney failure, unspecified Status: Acute (2) Anemia: Code(s): D64.9 - Anemia, unspecified Status: Acute (3) Hypertension: Code(s): I10 - Essential (primary) hypertension Status: Acute (4) Diabetes: Code(s): E11.9 - Type 2 diabetes mellitus without complications Status: Acute Plan 62-year-old white male who was admitted with cardiogenic shock and acute respiratory failure requiring CPR and epinephrine in the field, after being found down at home and being witnessed to possibly have undergone seizure-like activity. Intubation was attempted in the field but were unable to do so, patient was ultimately intubated in the hospital, started on pressors, placed in the ICU on mechanical ventilation. Found to have bilateral pneumothoraces with chest tubes placed, had developed some pneumoperitoneum which surgically deemed might have been a leak from his chest tubes as opposed to an acute surgical abdomen. Patient was started on antibiotics empirically for possible aspiration pneumonia but was ultimately discontinued off of them by infectious disease. Developed rhabdomyolysis with worsening acute renal failure which became sustained, with the patient now undergoing dialysis. Ultimately was discontinued off pressors, cardiology deferred heart cath due to renal failure. Patient had difficulty following commands after he was discontinued off of sedation and after extubation. Had an MRI done on 01/17 which showed no acute findings, only an older right parietal CVA. EEG was done which was unremarkable. 04/07/18 - no change in patient condition, no acute events overnight. No change to current treatment plan. ESRD on HD -dialysis M, W, Fr. First dialysis 01/09/18 -Nephrology consulted and following -R IJ permacath placement 02/08/18 -s/p renal biopsy per IR 03/07/18 -no recovery in renal function, Cr remains around 5. Nephrology dx ESRD, CM to be consulted for outpatient HD seating. 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 Possible anoxic brain injury -Neurology consulted and following -PT/OT/ST -ok to get out of bed per Neurology with assistance Dysphagia related to encephalopathy -improved -ST recommends regular diet with thin liquids -continue renal and diabetic diet Possible seizure -continue Keppra -EEG was negative N-STEMI -troponin 0.52, 1.89 & 2.37 respectively -cardiology consulted, rec conservative medical management -continue ASA, Coreg, Isosorbide, amlodipine and atorvastatin Bilateral pneumothoraces - stable -chest tube removed 01/28/18 Pneumomediastinum Pneumoperitoneum with right retroperitoneal gas around the right kidney -Likely secondary to bilateral pneumothoraces with no surgical intervention warranted per general surgery Acute respiratory failure -continue supplemental O2 PRN -pulmonary following Cirrhosis -likely secondary to alcohol abuse -continue BB Type II diabetes mellitus, controlled -accuchecks ac/hs with SSI -Continue Aspart Sliding scale insulin. -Will continue Levemir 5 units QHS. Goal BG 140-180. -ADA diet Hypothyroidism -continue Synthroid Normocytic anemia - stable -s/p PRBC transfusion -epogen with dialysis MDM: self Code: DNR GI ppx: Protonix PO DVT ppx: Heparin SQ Discussed with: RN, patient, CM Dispo: awaiting placement once cleared by nephrology, CM to arrange for outpatient HD Progress Note: Quality VTE Deep Vein Thrombosis/Pulmonary Embolism Present on Admission: No _ (1) Diabetes Qualifiers: Chronic kidney disease stage: Diabetes mellitus complication detail: Diabetes mellitus complication status: Diabetes mellitus predatory animal exterminator insulin use : Diabetes mellitus macular edema: Diabetes mellitus type: Diabetic retinopathy severity: Laterality: Proliferative retinopathy type: (2) Acute renal failure Qualifiers: Acute renal failure type: (3) Anemia Qualifiers: Anemia type: due to chronic kidney disease Bone marrow failure anemia type: Chronic kidney disease stage: Folate deficiency anemia type: Hemolytic anemia type: Iron deficiency anemia type: Other causes of anemia: Vitamin B12 deficiency anemia type: (4) Hypertension Qualifiers: Hypertension type:
[2018-04-07] MEDS: QUEtiapine 25 MG Tablet PO SCH (23:07)
[2018-04-08] MEDS: Levothyroxine 88 MCG Tablet PO SCH (05:29)
[2018-04-08] MEDS: Carvedilol 6.25 MG Tablet PO SCH ×2 (09:28→20:35)
[2018-04-08] MEDS: levETIRAcetam 500 MG Tablet PO SCH ×2 (09:28→20:34)
[2018-04-08] MEDS: Folic Acid 1 MG Tablet PO SCH (09:28)
[2018-04-08] MEDS: Senna/Docusate Sodium 8.6/50 MG Tablet PO SCH ×2 (09:28→20:33)
[2018-04-08] MEDS: amLODIPine 10 MG Tablet PO SCH (09:28)
--- NOTE | 2018-04-08 10:45 | P.PNNP ---
Subjective Interval history: No shortness of breath, nausea, or vomiting. Complaining that dietary is not giving him enough vomiting. <LaryElyssaSmiley - Last Filed: 04/08/18 10:41> Physical Exam Vital signs: Vital Signs 04/07/18 11:43 04/07/18 16:20 04/07/18 20:00 Temperature 98.0 F 98.5 F 98.0 F Pulse Rate 81 76 82 Respiratory Rate 16 18 18 Blood Pressure 110/75 123/75 146/84 H Pulse Oximetry 96 95 95 04/08/18 00:00 04/08/18 04:00 04/08/18 05:38 Temperature 98.0 F 98.2 F Pulse Rate 86 78 68 Respiratory Rate 18 18 Blood Pressure 126/82 140/86 Pulse Oximetry 95 95 04/08/18 07:35 Temperature 97.9 F Pulse Rate 72 Respiratory Rate 20 Blood Pressure 148/85 H Pulse Oximetry 96 Intake & Output 04/07/18 04/08/18 04/08/18 18:59 06:59 18:59 Intake Total 2500 / 2500 Output Total 750 / 750 800 / 800 Balance 1750 / 1750 -800 / -800 Weight 84.3 kg Intake: Oral 2500 / 2500 Output: Urine 750 / 750 800 / 800 Other: Date of Last Bowel Movement 04/07/18 04/07/18 # Bowel Movements 1 Narrative: GENERAL: Well-nourished, well-developed middle-aged male patient in [facility]. SKIN: Warm and dry. No rash. Right anterior chest with dialysis catheter, no surrounding erythema. HEENT: Normocephalic. Atraumatic. Mucous membranes pink and moist. CARDIOVASCULAR: Regular rate and rhythm. RESPIRATORY: No accessory muscle use. Clear to auscultation. Breath sounds equal bilaterally. GASTROINTESTINAL: Abdomen soft, non-tender, nondistended. Normoactive bowel sounds x4. MUSCULOSKELETAL: No obvious deformities. Extremities without clubbing, cyanosis , or edema. NEUROLOGICAL: Awake and alert. No obvious cranial nerve deficits. Moving all extremities spontaneously. Normal speech. - Urinary Catheter Management Indwelling Temp Sensing Catheter Cath placed during this visit: yes, but has since been removed by the nurse Reason for continuing: Decision to DC catheter Insertion date: 01/14/18 Insertion time: 22:00 Removal date: 01/21/18 Removal time: 18:00 Straight Cath placed during this visit: yes, but has since been removed by the nurse Reason for continuing: Acute urinary retention Insertion date: 03/16/18 Insertion time: 00:50 Removal date: 03/01/18 Removal time: 23:30 <Smiley Barth - Last Filed: 04/08/18 10:41> Vital signs: Vital Signs 04/08/18 00:00 04/08/18 04:00 04/08/18 05:38 Temperature 98.0 F 98.2 F Pulse Rate 86 78 68 Respiratory Rate 18 18 Blood Pressure 126/82 140/86 Pulse Oximetry 95 95 04/08/18 07:35 04/08/18 08:00 04/08/18 12:20 Temperature 97.9 F 98.0 F Pulse Rate 72 65 70 Respiratory Rate 20 20 Blood Pressure 148/85 H 142/80 H Pulse Oximetry 96 95 04/08/18 16:15 Temperature 98.1 F Pulse Rate 70 Respiratory Rate 20 Blood Pressure 142/90 H Pulse Oximetry 94 L Intake & Output 04/08/18 04/08/18 04/09/18 06:59 18:59 06:59 Output Total 800 / 800 475 / 475 Balance -800 / -800 -475 / -475 Weight 84.3 kg Output: Urine 800 / 800 475 / 475 Other: Date of Last Bowel Movement 04/07/18 04/07/18 # Bowel Movements 1 - Urinary Catheter Management Indwelling Temp Sensing Catheter Cath placed during this visit: no Straight Cath placed during this visit: no <Brianna Blevins - Last Filed: 04/08/18 21:02> Assessment and Plan - Assessment (1) Acute renal failure Code(s): N17.9 - Acute kidney failure, unspecified Status: Acute Plan: Remains dialysis dependent at this time. Now ESRD. First HD 01/17/18 , RIJ PermCath placed 02/08/18 HD on Per renal biopsy patient has ATN and cast Nephropathy, due to Rhabdo. Medications should be adjusted for the patient's estimated GFR if clinically indicated. Avoid agents with significant potential for nephrotoxicity possible including NSAIDs for analgesia, iodine contrast agents. Gadolinium is contraindicated if the GFR is below 30. 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 To start out patient HD work up with diagnosis of ESRD, per Dr. Blevins HD tomorrow will remove fluid as tolerated. (2) Anemia Code(s): D64.9 - Anemia, unspecified Status: Acute Qualifiers: Anemia type: due to chronic kidney disease Plan: Epogen with dialysis. HGB stable (3) Hypertension Code(s): I10 - Essential (primary) hypertension Status: Acute Plan: Well controlled, will monitor. (4) Diabetes Code(s): E11.9 - Type 2 diabetes mellitus without complications Status: Acute Plan: Maintain blood sugars between 140 mg /dl to 180 mg/dl while hospitalized. Well controlled. <Smiley Barth - Last Filed: 04/08/18 10:41> - Assessment (1) Acute renal failure Code(s): N17.9 - Acute kidney failure, unspecified Status: Acute Plan: Patient seen and examined, agree with above. I spoke again to Optics Test Technician, will go ahead and consider him as End stage renal disease now. Follow the BMP in AM. (2) Anemia Code(s): D64.9 - Anemia, unspecified Status: Acute Qualifiers: Anemia type: due to chronic kidney disease (3) Hypertension Code(s): I10 - Essential (primary) hypertension Status: Acute (4) Diabetes Code(s): E11.9 - Type 2 diabetes mellitus without complications Status: Acute <Brianna Blevins - Last Filed: 04/08/18 21:02>
--- NOTE | 2018-04-08 11:08 | P.PNIM ---
Subjective Interval history: Follow-up acute renal failure on hemodialysis, anemia, hypertension and diabetes mellitus type 2 Patient is resting in bed. He wants to know if CM is working on his discharge planning. Patient happy about [employer] winning the [employer]. No needs voiced. No complains of pain or discomfort. Physical Exam Vital signs: Vital Signs 04/07/18 11:43 04/07/18 16:20 04/07/18 20:00 Temperature 98.0 F 98.5 F 98.0 F Pulse Rate 81 76 82 Respiratory Rate 16 18 18 Blood Pressure 110/75 123/75 146/84 H Pulse Oximetry 96 95 95 04/08/18 00:00 04/08/18 04:00 04/08/18 05:38 Temperature 98.0 F 98.2 F Pulse Rate 86 78 68 Respiratory Rate 18 18 Blood Pressure 126/82 140/86 Pulse Oximetry 95 95 04/08/18 07:35 Temperature 97.9 F Pulse Rate 72 Respiratory Rate 20 Blood Pressure 148/85 H Pulse Oximetry 96 Intake & Output 04/07/18 04/08/18 04/08/18 18:59 06:59 18:59 Intake Total 2500 / 2500 Output Total 750 / 750 800 / 800 Balance 1750 / 1750 -800 / -800 Weight 84.3 kg Intake: Oral 2500 / 2500 Output: Urine 750 / 750 800 / 800 Other: Date of Last Bowel Movement 04/07/18 04/07/18 # Bowel Movements 1 Narrative: GENERAL: well-developed, well-nourished, male in no acute distress, lying in bed SKIN: Warm and dry. Right subclavian AV graft intact HEAD: Atraumatic. Normocephalic. EYES: Pupils equal and round. No scleral icterus. No injection or drainage., Wearing eyeglasses ENT: No nasal bleeding or discharge. Mucous membranes pink and moist. NECK: Trachea midline. No JVD. CARDIOVASCULAR: Regular rate and rhythm. RESPIRATORY: No accessory muscle use. Clear to auscultation. Breath sounds equal bilaterally. GASTROINTESTINAL: Abdomen obese soft, non-tender, nondistended. Hepatic and splenic margins not palpable. MUSCULOSKELETAL: Extremities without clubbing, cyanosis. Bilateral lower extremity with trace edema no obvious deformities. RIJ permacath. NEUROLOGICAL: Awake and alert. No obvious cranial nerve deficits. Generalized weakness, moving all 4 extremities normal speech. PSYCHIATRIC: normal mood and affect; insight and judgment poor. Urinary Catheter Management Indwelling Temp Sensing Catheter: Cath placed during this visit: yes, but has since been removed by the nurse Reason for continuing: Decision to DC catheter Insertion date: 01/14/18 Insertion time: 22:00 Removal date: 01/21/18 Removal time: 18:00 Straight: Cath placed during this visit: yes, but has since been removed by the nurse Reason for continuing: Acute urinary retention Insertion date: 03/16/18 Insertion time: 00:50 Removal date: 03/01/18 Removal time: 23:30 Results Labs CBC & Chem 7: 04/02/18 09:00 04/06/18 13:05 Procedures Procedures: Left IJ HD tunneled cath placed 02/08/18 by IR Assessment and Plan (1) Acute renal failure: Code(s): N17.9 - Acute kidney failure, unspecified Status: Acute (2) Anemia: Code(s): D64.9 - Anemia, unspecified Status: Acute (3) Hypertension: Code(s): I10 - Essential (primary) hypertension Status: Acute (4) Diabetes: Code(s): E11.9 - Type 2 diabetes mellitus without complications Status: Acute Plan 62-year-old white male who was admitted with cardiogenic shock and acute respiratory failure requiring CPR and epinephrine in the field, after being found down at home and being witnessed to possibly have undergone seizure-like activity. Intubation was attempted in the field but were unable to do so, patient was ultimately intubated in the hospital, started on pressors, placed in the ICU on mechanical ventilation. Found to have bilateral pneumothoraces with chest tubes placed, had developed some pneumoperitoneum which surgically deemed might have been a leak from his chest tubes as opposed to an acute surgical abdomen. Patient was started on antibiotics empirically for possible aspiration pneumonia but was ultimately discontinued off of them by infectious disease. Developed rhabdomyolysis with worsening acute renal failure which became sustained, with the patient now undergoing dialysis. Ultimately was discontinued off pressors, cardiology deferred heart cath due to renal failure. Patient had difficulty following commands after he was discontinued off of sedation and after extubation. Had an MRI done on 01/17 which showed no acute findings, only an older right parietal CVA. EEG was done which was unremarkable. 04/08/18 - no change in patient condition, no acute events overnight. No change to current treatment plan. ESRD on HD -dialysis M, W, Fr. First dialysis 01/09/18 -Nephrology consulted and following -R IJ permacath placement 02/08/18 -s/p renal biopsy per IR 03/07/18 -no recovery in renal function, Cr remains around 5. Nephrology dx ESRD, CM to be consulted for outpatient HD seating. 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 Possible anoxic brain injury -Neurology consulted and following -PT/OT/ST -ok to get out of bed per Neurology with assistance Dysphagia related to encephalopathy -improved -ST recommends regular diet with thin liquids -continue renal and diabetic diet Possible seizure -continue Keppra -EEG was negative N-STEMI -troponin 0.52, 1.89 & 2.37 respectively -cardiology consulted, rec conservative medical management -continue ASA, Coreg, Isosorbide, amlodipine and atorvastatin Bilateral pneumothoraces - stable -chest tube removed 01/28/18 Pneumomediastinum Pneumoperitoneum with right retroperitoneal gas around the right kidney -Likely secondary to bilateral pneumothoraces with no surgical intervention warranted per general surgery Acute respiratory failure -continue supplemental O2 PRN -pulmonary following Cirrhosis -likely secondary to alcohol abuse -continue BB Type II diabetes mellitus, controlled -accuchecks ac/hs with SSI -Continue Aspart Sliding scale insulin. -Will continue Levemir 5 units QHS. Goal BG 140-180. -ADA diet Hypothyroidism -continue Synthroid Normocytic anemia - stable -s/p PRBC transfusion -epogen with dialysis MDM: self Code: DNR GI ppx: Protonix PO DVT ppx: Heparin SQ Discussed with: RN, patient, CM Dispo: awaiting placement once cleared by nephrology, CM to arrange for outpatient HD Progress Note: Quality VTE Deep Vein Thrombosis/Pulmonary Embolism Present on Admission: No _ (1) Diabetes Qualifiers: Chronic kidney disease stage: Diabetes mellitus complication detail: Diabetes mellitus complication status: Diabetes mellitus detention insulin use : Diabetes mellitus macular edema: Diabetes mellitus type: Diabetic retinopathy severity: Laterality: Proliferative retinopathy type: (2) Acute renal failure Qualifiers: Acute renal failure type: (3) Anemia Qualifiers: Anemia type: due to chronic kidney disease Bone marrow failure anemia type: Chronic kidney disease stage: Folate deficiency anemia type: Hemolytic anemia type: Iron deficiency anemia type: Other causes of anemia: Vitamin B12 deficiency anemia type: (4) Hypertension Qualifiers: Hypertension type:
[2018-04-08] MEDS: QUEtiapine 25 MG Tablet PO SCH (20:33)
[2018-04-09] MEDS: Levothyroxine 88 MCG Tablet PO SCH (07:24)
[2018-04-09 10:41] LABS: Calcium 8.9 mg/dL (8.5-10.1); Carbon Dioxide 29.9 meq/L (21.0-32.0); Potassium 3.1 meq/L (3.5-5.1)
[2018-04-09] MEDS: Heparin 10,000 UNITS/10 ML Vial (for IV use) OTHER PRN (11:42)
--- NOTE | 2018-04-09 11:56 | P.PN ---
Subjective Interval history: off the floor in HD seen 1230- back from hemodialysis no complains motivated with therapy no nausea or vomiting ambulating well with walker Physical Exam Vital signs: Vital Signs 04/08/18 12:20 04/08/18 16:15 04/08/18 20:00 Temperature 98.0 F 98.1 F Pulse Rate 70 70 81 Respiratory Rate 20 20 Blood Pressure 142/80 H 142/90 H Pulse Oximetry 95 94 L 04/08/18 20:50 04/09/18 00:50 04/09/18 04:45 Temperature 98.6 F 98.2 F 98.1 F Pulse Rate 84 92 H 72 Respiratory Rate 20 20 20 Blood Pressure 126/82 126/75 138/87 Pulse Oximetry 95 95 95 04/09/18 07:50 Temperature 97.4 F L Pulse Rate 69 Respiratory Rate 20 Blood Pressure 147/89 H Pulse Oximetry 94 L Intake & Output 04/08/18 04/09/18 04/09/18 18:59 06:59 18:59 Intake Total 240 / 240 Output Total 475 / 475 3200 / 3200 Balance -475 / -475 240 / 240 -3200 / -3200 Weight 96.2 kg Intake: Oral 240 / 240 Output: Urine 475 / 475 200 / 200 Hemodialysis Amount 3000 / 3000 Other: # Voids 4 1 Date of Last Bowel Movement 04/07/18 04/08/18 # Bowel Movements 1 Narrative: GENERAL: oriented x 3, speech clear, in NAD. Right anterior chest with dialysis catheter, no surrounding erythema. Normocephalic. Atraumatic. Mucous membranes pink and moist. CARDIOVASCULAR: Regular rate and rhythm. RESPIRATORY: no rales, no wheezes GASTROINTESTINAL: Abdomen soft, non-tender, nondistended. Normoactive bowel sounds x4. MUSCULOSKELETAL: No obvious deformities. Extremities without clubbing, cyanosis , or edema. NEUROLOGICAL: Awake and alert. No obvious cranial nerve deficits. Moving all extremities spontaneously. Normal speech. - Urinary Catheter Management Indwelling Temp Sensing Catheter Cath placed during this visit: yes, but has since been removed by the nurse Reason for continuing: Decision to DC catheter Insertion date: 01/14/18 Insertion time: 22:00 Removal date: 01/21/18 Removal time: 18:00 Straight Cath placed during this visit: yes, but has since been removed by the nurse Reason for continuing: Acute urinary retention Insertion date: 03/16/18 Insertion time: 00:50 Removal date: 03/01/18 Removal time: 23:30 Results - Labs CBC & Chem 7: 04/02/18 09:00 04/09/18 09:00 Laboratory Results - last 24 hr 04/09/18 09:00 Sodium 141 Potassium 3.1 L Chloride 102 Carbon Dioxide 29.9 Anion Gap 9 BUN 22 H Creatinine 4.15 H Estimated GFR 15 L Random Glucose 102 Calcium 8.9 - Procedures Left IJ HD tunneled cath placed 02/08/18 by IR Assessment and Plan - Assessment (1) Acute renal failure Code(s): N17.9 - Acute kidney failure, unspecified Status: Acute (2) Anemia Code(s): D64.9 - Anemia, unspecified Status: Acute (3) Hypertension Code(s): I10 - Essential (primary) hypertension Status: Acute (4) Diabetes Code(s): E11.9 - Type 2 diabetes mellitus without complications Status: Acute - Plan 62-year-old white male who was admitted with cardiogenic shock and acute respiratory failure requiring CPR and epinephrine in the field, after being found down at home and being witnessed to possibly have undergone seizure-like activity. Intubation was attempted in the field but were unable to do so, patient was ultimately intubated in the hospital, started on pressors, placed in the ICU on mechanical ventilation. Found to have bilateral pneumothoraces with chest tubes placed, had developed some pneumoperitoneum which surgically deemed might have been a leak from his chest tubes as opposed to an acute surgical abdomen. Patient was started on antibiotics empirically for possible aspiration pneumonia but was ultimately discontinued off of them by infectious disease. Developed rhabdomyolysis with worsening acute renal failure which became sustained, with the patient now undergoing dialysis. Ultimately was discontinued off pressors, cardiology deferred heart cath due to renal failure. Patient had difficulty following commands after he was discontinued off of sedation and after extubation. Had an MRI done on 01/17 which showed no acute findings, only an older right parietal CVA. EEG was done which was unremarkable. 04/08/18 - no change in patient condition, no acute events overnight. No change to current treatment plan. ESRD on HD -dialysis M, W, Fr. First dialysis 01/09/18 -Nephrology consulted and following -R IJ permacath placement 02/08/18 -s/p renal biopsy per IR 03/07/18 -no recovery in renal function, Cr remains around 5. Nephrology dx ESRD, CM to be consulted for outpatient HD seating. 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 Possible anoxic brain injury -Neurology consulted and following -PT/OT/ST -ok to get out of bed per Neurology with assistance Dysphagia related to encephalopathy -improved -ST recommends regular diet with thin liquids -continue renal and diabetic diet Possible seizure -continue Keppra -EEG was negative N-STEMI -troponin 0.52, 1.89 & 2.37 respectively -cardiology consulted, rec conservative medical management -continue ASA, Coreg, Isosorbide, amlodipine and atorvastatin Bilateral pneumothoraces - stable -chest tube removed 01/28/18 Pneumomediastinum Pneumoperitoneum with right retroperitoneal gas around the right kidney -Likely secondary to bilateral pneumothoraces with no surgical intervention warranted per general surgery Acute respiratory failure -continue supplemental O2 PRN (2) Anemia Qualifiers: Anemia type: due to chronic kidney disease
--- NOTE | 2018-04-09 12:54 | P.PNNP ---
Subjective Interval history: Seen during hemodialysis tolerating well. No shortness of breath, nausea, vomiting, or diarrhea. <Smiley Barth - Last Filed: 04/09/18 14:21> Physical Exam Vital signs: Vital Signs 04/08/18 16:15 04/08/18 20:00 04/08/18 20:50 Temperature 98.1 F 98.6 F Pulse Rate 70 81 84 Respiratory Rate 20 20 Blood Pressure 142/90 H 126/82 Pulse Oximetry 94 L 95 04/09/18 00:50 04/09/18 04:45 04/09/18 07:50 Temperature 98.2 F 98.1 F 97.4 F L Pulse Rate 92 H 72 69 Respiratory Rate 20 20 20 Blood Pressure 126/75 138/87 147/89 H Pulse Oximetry 95 95 94 L Intake & Output 04/08/18 04/09/18 04/09/18 18:59 06:59 18:59 Intake Total 240 / 240 Output Total 475 / 475 3200 / 3200 Balance -475 / -475 240 / 240 -3200 / -3200 Weight 96.2 kg Intake: Oral 240 / 240 Output: Urine 475 / 475 200 / 200 Hemodialysis Amount 3000 / 3000 Other: # Voids 4 1 Date of Last Bowel Movement 04/07/18 04/08/18 # Bowel Movements 1 Narrative: GENERAL: oriented x 3, speech clear, in NAD. Right anterior chest with dialysis catheter, no surrounding erythema. Normocephalic. Atraumatic. Mucous membranes pink and moist. CARDIOVASCULAR: Regular rate and rhythm. RESPIRATORY: no rales, no wheezes GASTROINTESTINAL: Abdomen soft, non-tender, nondistended. Normoactive bowel sounds x4. MUSCULOSKELETAL: No obvious deformities. Extremities without clubbing, cyanosis , or edema. NEUROLOGICAL: Awake and alert. No obvious cranial nerve deficits. Moving all extremities spontaneously. Normal speech. - Urinary Catheter Management Indwelling Temp Sensing Catheter Cath placed during this visit: yes, but has since been removed by the nurse Reason for continuing: Decision to DC catheter Insertion date: 01/14/18 Insertion time: 22:00 Removal date: 01/21/18 Removal time: 18:00 Straight Cath placed during this visit: yes, but has since been removed by the nurse Reason for continuing: Acute urinary retention Insertion date: 03/16/18 Insertion time: 00:50 Removal date: 03/01/18 Removal time: 23:30 <Smiley Barth - Last Filed: 04/09/18 14:21> Vital signs: Vital Signs 04/09/18 00:50 04/09/18 04:45 04/09/18 07:50 Temperature 98.2 F 98.1 F 97.4 F L Pulse Rate 92 H 72 69 Respiratory Rate 20 20 20 Blood Pressure 126/75 138/87 147/89 H Pulse Oximetry 95 95 94 L 04/09/18 16:00 04/09/18 21:00 Temperature 99.3 F 98.9 F Pulse Rate 97 H 89 Respiratory Rate 20 20 Blood Pressure 136/88 135/88 Pulse Oximetry 96 96 Intake & Output 04/09/18 04/09/18 04/10/18 06:59 18:59 06:59 Intake Total 240 / 240 Output Total 3200 / 3200 Balance 240 / 240 -3200 / -3200 Weight 96.2 kg Intake: Oral 240 / 240 Output: Urine 200 / 200 Hemodialysis Amount 3000 / 3000 Other: # Voids 4 1 Date of Last Bowel Movement 04/08/18 - Urinary Catheter Management Indwelling Temp Sensing Catheter Cath placed during this visit: no Straight Cath placed during this visit: no <Brianna Blevins - Last Filed: 04/09/18 21:27> Assessment and Plan - Assessment (1) Acute renal failure Code(s): N17.9 - Acute kidney failure, unspecified Status: Acute Plan: Remains dialysis dependent at this time. Now ESRD. First HD 01/17/18 , [place] PermCath placed 02/08/18 HD on Per renal biopsy patient has ATN and cast Nephropathy, due to Rhabdo. Medications should be adjusted for the patient's estimated GFR if clinically indicated. Avoid agents with significant potential for nephrotoxicity possible including NSAIDs for analgesia, iodine contrast agents. Gadolinium is contraindicated if the GFR is below 30. manager behavioral to arrange outpatient HD. To start out patient HD work up with diagnosis of ESRD, per Dr. Blevins Seen during HD 2 K bath plan to remove 3 liters. (2) Anemia Code(s): D64.9 - Anemia, unspecified Status: Acute Qualifiers: Anemia type: due to chronic kidney disease Plan: Epogen with dialysis. HGB stable (3) Hypertension Code(s): I10 - Essential (primary) hypertension Status: Acute Plan: Well controlled, will monitor. (4) Diabetes Code(s): E11.9 - Type 2 diabetes mellitus without complications Status: Acute Plan: Maintain blood sugars between 140 mg /dl to 180 mg/dl while hospitalized. Well controlled. <Smiley Barth - Last Filed: 04/09/18 14:21> - Assessment (1) Acute renal failure Code(s): N17.9 - Acute kidney failure, unspecified Status: Acute Plan: Patient seen and examined, agree with above. Creatinine is slightly better, HD done today. To arrange out patient HD. (2) Anemia Code(s): D64.9 - Anemia, unspecified Status: Acute Qualifiers: Anemia type: due to chronic kidney disease (3) Hypertension Code(s): I10 - Essential (primary) hypertension Status: Acute (4) Diabetes Code(s): E11.9 - Type 2 diabetes mellitus without complications Status: Acute <Brianna Blevins - Last Filed: 04/09/18 21:27>
[2018-04-09] MEDS: Carvedilol 6.25 MG Tablet PO SCH ×2 (13:59→23:40)
[2018-04-09] MEDS: Folic Acid 1 MG Tablet PO SCH (13:59)
[2018-04-09] MEDS: Senna/Docusate Sodium 8.6/50 MG Tablet PO SCH ×2 (14:00→23:44)
[2018-04-09] MEDS: amLODIPine 10 MG Tablet PO SCH (14:00)
[2018-04-09] MEDS: levETIRAcetam 500 MG Tablet PO SCH ×2 (14:00→23:40)
[2018-04-09] MEDS: QUEtiapine 25 MG Tablet PO SCH (23:56)
[2018-04-10] MEDS: Levothyroxine 88 MCG Tablet PO SCH (06:25)
[2018-04-10 07:54] LABS: Albumin 3.3 g/dL (3.4-5.0); Calcium 9.5 mg/dL (8.5-10.1); Carbon Dioxide 28.3 meq/L (21.0-32.0); Phosphorus 4.6 mg/dL (2.5-4.9); Potassium 3.6 meq/L (3.5-5.1)
[2018-04-10 08:44] LABS: Hepatitis A IgM Antibody Nonreactive (Nonreactive); Hepatitits B Surface Antigen Nonreactive (Nonreactive)
[2018-04-10] MEDS: Folic Acid 1 MG Tablet PO SCH (09:09)
[2018-04-10] MEDS: amLODIPine 10 MG Tablet PO SCH (09:09)
[2018-04-10] MEDS: Senna/Docusate Sodium 8.6/50 MG Tablet PO SCH ×2 (09:10→22:10)
[2018-04-10] MEDS: Carvedilol 6.25 MG Tablet PO SCH ×2 (09:10→22:10)
[2018-04-10] MEDS: levETIRAcetam 500 MG Tablet PO SCH ×2 (09:10→22:10)
--- NOTE | 2018-04-10 09:32 | P.PNIM ---
Subjective Interval history: awake and alert, no complainst doing "great" speech clear, good po very motivated with physical activity- up and ambulating Physical Exam Vital signs: Vital Signs 04/09/18 16:00 04/09/18 20:00 04/09/18 21:00 Temperature 99.3 F 98.9 F Pulse Rate 97 H 81 89 Respiratory Rate 20 20 Blood Pressure 136/88 135/88 Pulse Oximetry 96 96 04/10/18 01:33 04/10/18 05:30 04/10/18 08:00 Temperature 98.1 F 97.9 F 99.4 F Pulse Rate 91 H 74 85 Respiratory Rate 18 18 20 Blood Pressure 121/78 126/74 116/68 Pulse Oximetry 95 95 91 L Intake & Output 04/09/18 04/10/18 04/10/18 18:59 06:59 18:59 Intake Total 480 / 480 Output Total 3200 / 3200 450 / 450 Balance -3200 / -3200 30 / 30 Weight 92 kg Intake: Oral 480 / 480 Output: Urine 200 / 200 450 / 450 Hemodialysis Amount 3000 / 3000 Other: # Voids 1 Date of Last Bowel Movement 04/08/18 Narrative: a x ox 3, speech clear anicteric neck suplle lungs- clear HD access- right chest wall regular rhythm abdomen soft, nontender extremities no edema Urinary Catheter Management Indwelling Temp Sensing Catheter: Cath placed during this visit: yes, but has since been removed by the nurse Reason for continuing: Decision to DC catheter Insertion date: 01/14/18 Insertion time: 22:00 Removal date: 01/21/18 Removal time: 18:00 Straight: Cath placed during this visit: yes, but has since been removed by the nurse Reason for continuing: Acute urinary retention Insertion date: 03/16/18 Insertion time: 00:50 Removal date: 03/01/18 Removal time: 23:30 Results Labs CBC & Chem 7: 04/02/18 09:00 04/10/18 06:43 Procedures Procedures: Left IJ HD tunneled cath placed 02/08/18 by IR Assessment and Plan (1) Acute renal failure: Code(s): N17.9 - Acute kidney failure, unspecified Status: Acute (2) Anemia: Code(s): D64.9 - Anemia, unspecified Status: Acute (3) Hypertension: Code(s): I10 - Essential (primary) hypertension Status: Acute (4) Diabetes: Code(s): E11.9 - Type 2 diabetes mellitus without complications Status: Acute Plan 62-year-old white male who was admitted with cardiogenic shock and acute respiratory failure requiring CPR and epinephrine in the field, after being found down at home and being witnessed to possibly have undergone seizure-like activity. Intubation was attempted in the field but were unable to do so, patient was ultimately intubated in the hospital, started on pressors, placed in the ICU on mechanical ventilation. Found to have bilateral pneumothoraces with chest tubes placed, had developed some pneumoperitoneum which surgically deemed might have been a leak from his chest tubes as opposed to an acute surgical abdomen. Patient was started on antibiotics empirically for possible aspiration pneumonia but was ultimately discontinued off of them by infectious disease. Developed rhabdomyolysis with worsening acute renal failure which became sustained, with the patient now undergoing dialysis. Ultimately was discontinued off pressors, cardiology deferred heart cath due to renal failure. Patient had difficulty following commands after he was discontinued off of sedation and after extubation. Had an MRI done on 01/17 which showed no acute findings, only an older right parietal CVA. EEG was done which was unremarkable. ESRD on HD -dialysis M, W, Fr. First dialysis 01/09/18 -Nephrology consulted and following -R IJ permacath placement 02/08/18 -s/p renal biopsy per IR 03/07/18 -no recovery in renal function, Cr remains around 5. Nephrology dx ESRD, CM to be consulted for outpatient HD seating. Pain at renal biopsy site -resolved Abdominal pain, nausea/vomiting -resolved Left sided weakness- improved , aphasia- Improved- speech clear and coherent oriented x 3 - neuro stable -old R CVA Possible anoxic brain injury- neuro stable, a x ox 3 -Neurology consulted and following -PT/OT/ST - out of bed daily- patient up and ambulating Dysphagia related to encephalopathy -improved -ST recommends regular diet with thin liquids -continue renal and diabetic diet Possible seizure -continue Keppra -EEG was negative N-STEMI -troponin 0.52, 1.89 & 2.37 respectively -cardiology consulted, rec conservative medical management -continue ASA, Coreg, Isosorbide, amlodipine and atorvastatin Bilateral pneumothoraces - stable -chest tube removed 01/28/18 Pneumoperitoneum with right retroperitoneal gas around the right kidney -Likely secondary to bilateral pneumothoraces with no surgical intervention warranted per general surgery Acute respiratory failure- resolved -continue supplemental O2 PRN Hypothyroidism- on synthroid CM- awaiting SNF bed ? Szymanski will d/w CM- Progress Note: Quality VTE Deep Vein Thrombosis/Pulmonary Embolism Present on Admission: No _ (1) Diabetes Qualifiers: Chronic kidney disease stage: Diabetes mellitus complication detail: Diabetes mellitus complication status: Diabetes mellitus assisted insulin use : Diabetes mellitus macular edema: Diabetes mellitus type: Diabetic retinopathy severity: Laterality: Proliferative retinopathy type: (2) Acute renal failure Qualifiers: Acute renal failure type: (3) Anemia Qualifiers: Anemia type: due to chronic kidney disease Bone marrow failure anemia type: Chronic kidney disease stage: Folate deficiency anemia type: Hemolytic anemia type: Iron deficiency anemia type: Other causes of anemia: Vitamin B12 deficiency anemia type: (4) Hypertension Qualifiers: Hypertension type:
--- NOTE | 2018-04-10 10:45 | P.PNNP ---
Subjective Interval history: Resting comfortably with no complaints. No shortness of breath, nausea, or vomiting. HD yesterday tolerated well. <Smiley Barth - Last Filed: 04/10/18 10:42> Physical Exam Vital signs: Vital Signs 04/09/18 16:00 04/09/18 20:00 04/09/18 21:00 Temperature 99.3 F 98.9 F Pulse Rate 97 H 81 89 Respiratory Rate 20 20 Blood Pressure 136/88 135/88 Pulse Oximetry 96 96 04/10/18 01:33 04/10/18 05:30 04/10/18 08:00 Temperature 98.1 F 97.9 F 99.4 F Pulse Rate 91 H 74 85 Respiratory Rate 18 18 20 Blood Pressure 121/78 126/74 116/68 Pulse Oximetry 95 95 91 L Intake & Output 04/09/18 04/10/18 04/10/18 18:59 06:59 18:59 Intake Total 480 / 480 Output Total 3200 / 3200 450 / 450 200 / 200 Balance -3200 / -3200 30 / 30 -200 / -200 Weight 92 kg Intake: Oral 480 / 480 Output: Urine 200 / 200 450 / 450 200 / 200 Hemodialysis Amount 3000 / 3000 Other: # Voids 1 Date of Last Bowel Movement 04/08/18 Narrative: GENERAL: oriented x 3, speech clear, in NAD. Right anterior chest with dialysis catheter, no surrounding erythema. Normocephalic. Atraumatic. Mucous membranes pink and moist. CARDIOVASCULAR: Regular rate and rhythm. RESPIRATORY: no rales, no wheezes GASTROINTESTINAL: Abdomen soft, non-tender, nondistended. Normoactive bowel sounds x4. MUSCULOSKELETAL: No obvious deformities. Extremities without clubbing, cyanosis , or edema. NEUROLOGICAL: Awake and alert. No obvious cranial nerve deficits. Moving all extremities spontaneously. Normal speech. - Urinary Catheter Management Indwelling Temp Sensing Catheter Cath placed during this visit: yes, but has since been removed by the nurse Reason for continuing: Decision to DC catheter Insertion date: 01/14/18 Insertion time: 22:00 Removal date: 01/21/18 Removal time: 18:00 Straight Cath placed during this visit: yes, but has since been removed by the nurse Reason for continuing: Acute urinary retention Insertion date: 03/16/18 Insertion time: 00:50 Removal date: 03/01/18 Removal time: 23:30 <Smiley Barth - Last Filed: 04/10/18 10:42> Vital signs: Vital Signs 04/09/18 21:00 04/10/18 01:33 04/10/18 05:30 Temperature 98.9 F 98.1 F 97.9 F Pulse Rate 89 91 H 74 Respiratory Rate 20 18 18 Blood Pressure 135/88 121/78 126/74 Pulse Oximetry 96 95 95 04/10/18 08:00 04/10/18 12:00 04/10/18 16:00 Temperature 99.4 F 98.4 F 98.4 F Pulse Rate 82 83 71 Respiratory Rate 20 18 22 Blood Pressure 116/68 112/77 111/72 Pulse Oximetry 91 L 96 97 04/10/18 20:00 Temperature 98.5 F Pulse Rate 81 Respiratory Rate 20 Blood Pressure 126/80 Pulse Oximetry 93 L Intake & Output 04/10/18 04/10/18 04/11/18 06:59 18:59 06:59 Intake Total 480 / 480 Output Total 450 / 450 200 / 200 Balance 30 / 30 -200 / -200 Weight 92 kg Intake: Oral 480 / 480 Output: Urine 450 / 450 200 / 200 Other: Post Void Residual 800 # Bowel Movements 1 - Urinary Catheter Management Indwelling Temp Sensing Catheter Cath placed during this visit: no Straight Cath placed during this visit: no <Brianna Blevins - Last Filed: 04/10/18 20:48> Assessment and Plan - Assessment (1) Acute renal failure Code(s): N17.9 - Acute kidney failure, unspecified Status: Acute Plan: Remains dialysis dependent at this time. Now ESRD. First HD 01/17/18 , RIJ PermCath placed 02/08/18 HD on Per renal biopsy patient has ATN and cast Nephropathy, due to Rhabdo. Medications should be adjusted for the patient's estimated GFR if clinically indicated. Avoid agents with significant potential for nephrotoxicity possible including NSAIDs for analgesia, iodine contrast agents. Gadolinium is contraindicated if the GFR is below 30. collections manager to arrange outpatient HD. To start out patient HD work up with diagnosis of ESRD, per Dr. Blevins HD yesterday tolerated well with removal of 3 liters Creatinine with some improvement Labs in AM. HD planned for tomorrow. (2) Anemia Code(s): D64.9 - Anemia, unspecified Status: Acute Qualifiers: Anemia type: due to chronic kidney disease Plan: Epogen with dialysis. HGB stable (3) Hypertension Code(s): I10 - Essential (primary) hypertension Status: Acute Plan: Well controlled, will monitor. (4) Diabetes Code(s): E11.9 - Type 2 diabetes mellitus without complications Status: Acute Plan: Maintain blood sugars between 140 mg /dl to 180 mg/dl while hospitalized. Well controlled. <Smiley Barth - Last Filed: 04/10/18 10:42> - Assessment (1) Acute renal failure Code(s): N17.9 - Acute kidney failure, unspecified Status: Acute Plan: Patient seen and examined, agree with above. HD will be in AM. D/W the lead case manager, papers for ESRD filled, with cause of renal disease is Chronic tubulo interstitial disease. (2) Anemia Code(s): D64.9 - Anemia, unspecified Status: Acute Qualifiers: Anemia type: due to chronic kidney disease (3) Hypertension Code(s): I10 - Essential (primary) hypertension Status: Acute (4) Diabetes Code(s): E11.9 - Type 2 diabetes mellitus without complications Status: Acute <Brianna Blevins - Last Filed: 04/10/18 20:48>
[2018-04-10] MEDS: QUEtiapine 25 MG Tablet PO SCH (22:10)
[2018-04-11] MEDS: Levothyroxine 88 MCG Tablet PO SCH (06:09)
[2018-04-11 06:10] LABS: Albumin 3.1 g/dL (3.4-5.0); Calcium 9.5 mg/dL (8.5-10.1); Carbon Dioxide 27.1 meq/L (21.0-32.0); Potassium 3.6 meq/L (3.5-5.1)
--- NOTE | 2018-04-11 09:30 | P.PNIM ---
Subjective Interval history: awake and alert, already up in chair no complans good po, voidng well , good Bowel movement this am no headaches up and akbualted with a walker complains of right knee pain Physical Exam Vital signs: Vital Signs 04/10/18 12:00 04/10/18 16:00 04/10/18 20:00 Temperature 98.4 F 98.4 F 98.5 F Pulse Rate 83 71 81 Respiratory Rate 18 22 20 Blood Pressure 112/77 111/72 126/80 Pulse Oximetry 96 97 93 L 04/11/18 00:00 04/11/18 00:30 04/11/18 04:00 Temperature 98.3 F 98.4 F Pulse Rate 79 75 68 Respiratory Rate 20 20 Blood Pressure 126/77 120/93 H Pulse Oximetry 92 L 94 L 04/11/18 04:30 04/11/18 08:00 Temperature 97.6 F Pulse Rate 68 84 Respiratory Rate 20 Blood Pressure 110/82 Pulse Oximetry 91 L Intake & Output 04/10/18 04/11/18 04/11/18 18:59 06:59 18:59 Output Total 200 / 200 250 / 250 Balance -200 / -200 -250 / -250 Weight 91.4 kg Output: Urine 200 / 200 250 / 250 Other: Post Void Residual 800 Date of Last Bowel Movement 04/10/18 # Bowel Movements 1 Narrative: awake and alert, oriented x 3 speech soft but clear anicteric neck supple lungs- clear regular rhyhtm abdomen soft, nontender extremities no edema moves all extremities, very very mild LUE decrease 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 - able to flex Urinary Catheter Management Indwelling Temp Sensing Catheter: Cath placed during this visit: yes, but has since been removed by the nurse Reason for continuing: Decision to DC catheter Insertion date: 01/14/18 Insertion time: 22:00 Removal date: 01/21/18 Removal time: 18:00 Straight: Cath placed during this visit: yes, but has since been removed by the nurse Reason for continuing: Acute urinary retention Insertion date: 03/16/18 Insertion time: 00:50 Removal date: 03/01/18 Removal time: 23:30 Results Labs CBC & Chem 7: 04/02/18 09:00 04/11/18 04:49 Procedures Procedures: Left IJ HD tunneled cath placed 02/08/18 by IR Assessment and Plan (1) Acute renal failure: Code(s): N17.9 - Acute kidney failure, unspecified Status: Acute (2) Anemia: Code(s): D64.9 - Anemia, unspecified Status: Acute (3) Hypertension: Code(s): I10 - Essential (primary) hypertension Status: Acute (4) Diabetes: Code(s): E11.9 - Type 2 diabetes mellitus without complications Status: Acute Plan 62-year-old white male who was admitted with cardiogenic shock and acute respiratory failure requiring CPR and epinephrine in the field, after being found down at home and being witnessed to possibly have undergone seizure-like activity. Intubation was attempted in the field but were unable to do so, patient was ultimately intubated in the hospital, started on pressors, placed in the ICU on mechanical ventilation. Found to have bilateral pneumothoraces with chest tubes placed, had developed some pneumoperitoneum which surgically deemed might have been a leak from his chest tubes as opposed to an acute surgical abdomen. Patient was started on antibiotics empirically for possible aspiration pneumonia but was ultimately discontinued off of them by infectious disease. Developed rhabdomyolysis with worsening acute renal failure which became sustained, with the patient now undergoing dialysis. Ultimately was discontinued off pressors, cardiology deferred heart cath due to renal failure. Patient had difficulty following commands after he was discontinued off of sedation and after extubation. Had an MRI done on 01/17 which showed no acute findings, only an older right parietal CVA. EEG was done which was unremarkable. ESRD on HD -dialysis M, W, Fr. First dialysis 01/09/18 -Nephrology consulted and following -R IJ permacath placement 02/08/18 -s/p renal biopsy per IR 03/07/18 -no recovery in renal function, Cr remains around 5. Nephrology dx ESRD - CM ff - for outpatient HD arrangements Pain at renal biopsy site -resolved Abdominal pain, nausea/vomiting -resolved Left sided weakness- improved very mild , aphasia- Improved- speech clear and coherent oriented x 3 - neuro stable -old R CVA right knee pain- get Xrays Possible anoxic brain injury- neuro stable, a x ox 3 -Neurology consulted and following -PT/OT/ST - out of bed daily- patient up and ambulating Dysphagia related to encephalopathy -improved -ST recommends regular diet with thin liquids -continue renal and diabetic diet Possible seizure -continue Keppra -EEG was negative N-STEMI -troponin 0.52, 1.89 & 2.37 respectively -cardiology consulted, rec conservative medical management -continue ASA, Coreg, Isosorbide, amlodipine and atorvastatin Bilateral pneumothoraces - stable -chest tube removed 01/28/18 Pneumoperitoneum with right retroperitoneal gas around the right kidney -Likely secondary to bilateral pneumothoraces with no surgical intervention warranted per general surgery Acute respiratory failure- resolved -continue supplemental O2 PRN Hypothyroidism- on synthroid CM- awaiting SNF bed ? 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
[2018-04-11] MEDS: Folic Acid 1 MG Tablet PO SCH (09:44)
[2018-04-11] MEDS: amLODIPine 10 MG Tablet PO SCH (09:44)
[2018-04-11] MEDS: Senna/Docusate Sodium 8.6/50 MG Tablet PO SCH ×2 (09:44→20:54)
[2018-04-11] MEDS: levETIRAcetam 500 MG Tablet PO SCH ×2 (09:44→20:54)
[2018-04-11] MEDS: Carvedilol 6.25 MG Tablet PO SCH ×2 (09:44→20:54)
--- NOTE | 2018-04-11 13:07 | P.PNNP ---
Subjective Interval history: Seen AM sitting up in chair. No shortness of breath, nausea, or vomiting. Plan for HD today. <Smiley Barth - Last Filed: 04/11/18 13:04> Physical Exam Vital signs: Vital Signs 04/10/18 16:00 04/10/18 20:00 04/11/18 00:00 Temperature 98.4 F 98.5 F 98.3 F Pulse Rate 71 81 79 Respiratory Rate 22 20 20 Blood Pressure 111/72 126/80 126/77 Pulse Oximetry 97 93 L 92 L 04/11/18 00:30 04/11/18 04:00 04/11/18 04:30 Temperature 98.4 F Pulse Rate 75 68 68 Respiratory Rate 20 Blood Pressure 120/93 H Pulse Oximetry 94 L 04/11/18 08:00 Temperature 97.6 F Pulse Rate 84 Respiratory Rate 20 Blood Pressure 110/82 Pulse Oximetry 91 L Intake & Output 04/10/18 04/11/18 04/11/18 18:59 06:59 18:59 Output Total 200 / 200 250 / 250 Balance -200 / -200 -250 / -250 Weight 91.4 kg Output: Urine 200 / 200 250 / 250 Other: Post Void Residual 800 Date of Last Bowel Movement 04/10/18 # Bowel Movements 1 Narrative: GENERAL: oriented x 3, speech clear, in NAD. Right anterior chest with dialysis catheter, no surrounding erythema. Normocephalic. Atraumatic. Mucous membranes pink and moist. CARDIOVASCULAR: Regular rate and rhythm. RESPIRATORY: no rales, no wheezes GASTROINTESTINAL: Abdomen soft, non-tender, nondistended. Normoactive bowel sounds x4. MUSCULOSKELETAL: No obvious deformities. Extremities without clubbing, cyanosis , or edema. NEUROLOGICAL: Awake and alert. No obvious cranial nerve deficits. Moving all extremities spontaneously. Normal speech. - Urinary Catheter Management Indwelling Temp Sensing Catheter Cath placed during this visit: yes, but has since been removed by the nurse Reason for continuing: Decision to DC catheter Insertion date: 01/14/18 Insertion time: 22:00 Removal date: 01/21/18 Removal time: 18:00 Straight Cath placed during this visit: yes, but has since been removed by the nurse Reason for continuing: Acute urinary retention Insertion date: 03/16/18 Insertion time: 00:50 Removal date: 03/01/18 Removal time: 23:30 <Smiley Barth - Last Filed: 04/11/18 13:04> Vital signs: Vital Signs 04/11/18 00:00 04/11/18 00:30 04/11/18 04:00 Temperature 98.3 F 98.4 F Pulse Rate 79 75 68 Respiratory Rate 20 20 Blood Pressure 126/77 120/93 H Pulse Oximetry 92 L 94 L 04/11/18 04:30 04/11/18 08:00 04/11/18 12:00 Temperature 97.6 F 98.6 F Pulse Rate 68 68 97 H Respiratory Rate 20 20 Blood Pressure 110/82 120/73 Pulse Oximetry 91 L 97 Intake & Output 04/11/18 04/11/18 04/12/18 06:59 18:59 06:59 Output Total 250 / 250 3000 / 3000 Balance -250 / -250 -3000 / -3000 Weight 91.4 kg Output: Urine 250 / 250 Hemodialysis Amount 3000 / 3000 Other: Date of Last Bowel Movement 04/10/18 04/10/18 - Urinary Catheter Management Indwelling Temp Sensing Catheter Cath placed during this visit: no Straight Cath placed during this visit: no <Brianna Blevins - Last Filed: 04/11/18 20:58> Assessment and Plan - Assessment (1) Acute renal failure Code(s): N17.9 - Acute kidney failure, unspecified Status: Acute Plan: Remains dialysis dependent at this time. Now ESRD. First HD 01/17/18 , RIJ PermCath placed 02/08/18 HD on Per renal biopsy patient has ATN and cast Nephropathy, due to Rhabdo. Medications should be adjusted for the patient's estimated GFR if clinically indicated. Avoid agents with significant potential for nephrotoxicity possible including NSAIDs for analgesia, iodine contrast agents. Gadolinium is contraindicated if the GFR is below 30. sap manager to arrange outpatient HD. Paperwork for ESRD completed with cause of renal disease Chronic tubulo interstitial disease. HD today will remove fluid as tolerated. (2) Anemia Code(s): D64.9 - Anemia, unspecified Status: Acute Qualifiers: Anemia type: due to chronic kidney disease Plan: Epogen with dialysis. HGB stable (3) Hypertension Code(s): I10 - Essential (primary) hypertension Status: Acute Plan: Well controlled, will monitor. (4) Diabetes Code(s): E11.9 - Type 2 diabetes mellitus without complications Status: Acute Plan: Maintain blood sugars between 140 mg /dl to 180 mg/dl while hospitalized. Well controlled. <Smiley Barth - Last Filed: 04/11/18 13:04> - Assessment (1) Acute renal failure Code(s): N17.9 - Acute kidney failure, unspecified Status: Acute Plan: Patient seen and examined, agree with above. No improvement in the renal function. Out Patient HD arrangement in process. HD today, remove fluid as tolerated. (2) Anemia Code(s): D64.9 - Anemia, unspecified Status: Acute Qualifiers: Anemia type: due to chronic kidney disease (3) Hypertension Code(s): I10 - Essential (primary) hypertension Status: Acute (4) Diabetes Code(s): E11.9 - Type 2 diabetes mellitus without complications Status: Acute <Brianna Blevins - Last Filed: 04/11/18 20:58>
--- NOTE | 2018-04-11 13:18 | XR ---
EXAM DATE: 04/11/2018 1:09 PM EST AGE/SEX: 62 years / Male INDICATIONS: Right lateral knee pain, fell CLINICAL DATA: This is the patient's initial encounter. Patient reports that signs and symptoms have been present for 1 month and indicates a pain score of 4/10. MEDICAL/SURGICAL HISTORY: Arthritis. None. COMPARISON: [facility] – [place] (1 OR 2 VWS), 08/06/2016. . FINDINGS: Bony structures are intact and in normal alignment. Joints are intact without dislocation or signifi cant arthropathy. Osseous density is normal. Soft tissues are unremarkable. No radiopaque foreign bodies seen. CONCLUSION: No evidence of recent bony injury. Electronically signed by: Dionisio Branham MD Board Certified Radiologist 04/11/2018 1:17 PM EST
[2018-04-11] MEDS: Heparin 10,000 UNITS/10 ML Vial (for IV use) OTHER PRN (18:13)
[2018-04-11] MEDS: QUEtiapine 25 MG Tablet PO SCH (20:54)
[2018-04-12] MEDS: Levothyroxine 88 MCG Tablet PO SCH (05:03)
[2018-04-12 08:35] LABS: Albumin 3.3 g/dL (3.4-5.0); Calcium 9.7 mg/dL (8.5-10.1); Carbon Dioxide 28.1 meq/L (21.0-32.0); Phosphorus 4.7 mg/dL (2.5-4.9); Potassium 3.6 meq/L (3.5-5.1)
[2018-04-12] MEDS: Senna/Docusate Sodium 8.6/50 MG Tablet PO SCH ×2 (09:41→21:29)
[2018-04-12] MEDS: amLODIPine 10 MG Tablet PO SCH (09:41)
[2018-04-12] MEDS: levETIRAcetam 500 MG Tablet PO SCH ×2 (09:41→21:28)
[2018-04-12] MEDS: Carvedilol 6.25 MG Tablet PO SCH ×2 (09:42→21:32)
[2018-04-12] MEDS: Folic Acid 1 MG Tablet PO SCH (09:42)
--- NOTE | 2018-04-12 11:44 | P.PNNP ---
Subjective Interval history: Resting comfortably without complaints. HD yesterday tolerated well. <Smiley Barth - Last Filed: 04/12/18 11:41> Physical Exam Vital signs: Vital Signs 04/11/18 12:00 04/11/18 20:20 04/11/18 20:30 Temperature 98.6 F 97.9 F Pulse Rate 97 H 88 89 Respiratory Rate 20 18 Blood Pressure 120/73 143/65 H Pulse Oximetry 97 95 04/12/18 00:10 04/12/18 00:30 04/12/18 02:42 Temperature 98.0 F Pulse Rate 80 85 Respiratory Rate 18 18 Blood Pressure 117/63 Pulse Oximetry 96 04/12/18 04:00 04/12/18 04:30 04/12/18 08:00 Temperature 98.3 F 97.3 F L Pulse Rate 84 79 74 Respiratory Rate 18 20 Blood Pressure 122/77 105/67 Pulse Oximetry 95 94 L Intake & Output 04/11/18 04/12/18 04/12/18 18:59 06:59 18:59 Output Total 3000 / 3000 200 / 200 Balance -3000 / -3000 -200 / -200 Weight 95.7 kg Output: Urine 200 / 200 Hemodialysis Amount 3000 / 3000 Other: Date of Last Bowel Movement 04/10/18 04/11/18 Narrative: GENERAL: oriented x 3, speech clear, in NAD. Right anterior chest with dialysis catheter, no surrounding erythema. Normocephalic. Atraumatic. Mucous membranes pink and moist. CARDIOVASCULAR: Regular rate and rhythm. RESPIRATORY: no rales, no wheezes GASTROINTESTINAL: Abdomen soft, non-tender, nondistended. Normoactive bowel sounds x4. MUSCULOSKELETAL: No obvious deformities. Extremities without clubbing, cyanosis , or edema. NEUROLOGICAL: Awake and alert. No obvious cranial nerve deficits. Moving all extremities spontaneously. Normal speech. - Urinary Catheter Management Indwelling Temp Sensing Catheter Cath placed during this visit: yes, but has since been removed by the nurse Reason for continuing: Decision to DC catheter Insertion date: 01/14/18 Insertion time: 22:00 Removal date: 01/21/18 Removal time: 18:00 Straight Cath placed during this visit: yes, but has since been removed by the nurse Reason for continuing: Acute urinary retention Insertion date: 03/16/18 Insertion time: 00:50 Removal date: 03/01/18 Removal time: 23:30 <Smiley Barth - Last Filed: 04/12/18 11:41> Vital signs: Vital Signs 04/14/18 20:00 04/14/18 20:21 04/15/18 00:33 Temperature 98.1 F 97.5 F L Pulse Rate 74 72 86 Respiratory Rate 18 18 Blood Pressure 124/75 116/73 Pulse Oximetry 98 95 04/15/18 04:59 04/15/18 07:35 04/15/18 11:39 Temperature 97.6 F 97.4 F L 97.4 F L Pulse Rate 73 73 64 Respiratory Rate 18 18 18 Blood Pressure 109/73 127/88 138/79 Pulse Oximetry 95 94 L 97 04/15/18 15:26 Temperature 98.4 F Pulse Rate 92 H Respiratory Rate 18 Blood Pressure 106/68 Pulse Oximetry 95 Intake & Output 04/14/18 04/15/18 04/15/18 18:59 06:59 18:59 Intake Total 1200 / 1200 1200 / 1200 Output Total 100 / 100 250 / 250 300 / 300 Balance 1100 / 1100 -250 / -250 900 / 900 Weight 91.5 kg Intake: Oral 1200 / 1200 1200 / 1200 Output: Urine 100 / 100 250 / 250 300 / 300 Other: Date of Last Bowel Movement 04/13/18 04/13/18 04/13/18 # Bowel Movements 1 - Urinary Catheter Management Indwelling Temp Sensing Catheter Cath placed during this visit: no Straight Cath placed during this visit: no <Brianna Blevins - Last Filed: 04/15/18 17:24> Assessment and Plan - Assessment (1) Acute renal failure Code(s): N17.9 - Acute kidney failure, unspecified Status: Acute Plan: Remains dialysis dependent at this time. Now ESRD. First HD 01/17/18 , RIJ PermCath placed 02/08/18 HD on Per renal biopsy patient has ATN and cast Nephropathy, due to Rhabdo. Medications should be adjusted for the patient's estimated GFR if clinically indicated. Avoid agents with significant potential for nephrotoxicity possible including NSAIDs for analgesia, iodine contrast agents. Gadolinium is contraindicated if the GFR is below 30. lean manager to arrange outpatient HD, in process Paperwork for ESRD completed with cause of renal disease Chronic tubulo interstitial disease. HD yesterday tolerated well with removal fo 3 liters of fluid HD tomorrow. (2) Anemia Code(s): D64.9 - Anemia, unspecified Status: Acute Qualifiers: Anemia type: due to chronic kidney disease Plan: Epogen with dialysis. HGB stable (3) Hypertension Code(s): I10 - Essential (primary) hypertension Status: Acute Plan: Well controlled, will monitor. (4) Diabetes Code(s): E11.9 - Type 2 diabetes mellitus without complications Status: Acute Plan: Maintain blood sugars between 140 mg /dl to 180 mg/dl while hospitalized. Well controlled. <Smiley Barth - Last Filed: 04/12/18 11:41> - Assessment (1) Acute renal failure Code(s): N17.9 - Acute kidney failure, unspecified Status: Acute Plan: Patient seen and examined, agree with above. Creatinine remain elevated, HD will be in AM. Out Patient HD arrangement in progress. (2) Anemia Code(s): D64.9 - Anemia, unspecified Status: Acute Qualifiers: Anemia type: due to chronic kidney disease (3) Hypertension Code(s): I10 - Essential (primary) hypertension Status: Acute (4) Diabetes Code(s): E11.9 - Type 2 diabetes mellitus without complications Status: Acute <Brianna Blevins - Last Filed: 04/15/18 17:24>
--- NOTE | 2018-04-12 12:00 | P.PNIM ---
Subjective Interval history: awake and alert complains of pain specifically of the right knee with weightbearing- d/w PT - po good Physical Exam Vital signs: Vital Signs 04/11/18 12:00 04/11/18 20:20 04/11/18 20:30 Temperature 98.6 F 97.9 F Pulse Rate 97 H 88 89 Respiratory Rate 20 18 Blood Pressure 120/73 143/65 H Pulse Oximetry 97 95 04/12/18 00:10 04/12/18 00:30 04/12/18 02:42 Temperature 98.0 F Pulse Rate 80 85 Respiratory Rate 18 18 Blood Pressure 117/63 Pulse Oximetry 96 04/12/18 04:00 04/12/18 04:30 04/12/18 08:00 Temperature 98.3 F 97.3 F L Pulse Rate 84 79 74 Respiratory Rate 18 20 Blood Pressure 122/77 105/67 Pulse Oximetry 95 94 L Intake & Output 04/11/18 04/12/18 04/12/18 18:59 06:59 18:59 Output Total 3000 / 3000 200 / 200 Balance -3000 / -3000 -200 / -200 Weight 95.7 kg Output: Urine 200 / 200 Hemodialysis Amount 3000 / 3000 Other: Date of Last Bowel Movement 04/10/18 04/11/18 Narrative: awake and alert oriented x 3 anictric chest wall- HD access in place0- no sign sof infection lungs- clear regular rhythm abdmen soft, nontnder extremieis no edema, knee- no swelling- able to do full flexion and extension per patient and PT - pain of right knee when full weightbearing and walking Urinary Catheter Management Indwelling Temp Sensing Catheter: Cath placed during this visit: yes, but has since been removed by the nurse Reason for continuing: Decision to DC catheter Insertion date: 01/14/18 Insertion time: 22:00 Removal date: 01/21/18 Removal time: 18:00 Straight: Cath placed during this visit: yes, but has since been removed by the nurse Reason for continuing: Acute urinary retention Insertion date: 03/16/18 Insertion time: 00:50 Removal date: 03/01/18 Removal time: 23:30 Results Labs CBC & Chem 7: 04/02/18 09:00 04/12/18 07:19 Imaging Imaging: Impressions Knee X-Ray 04/11/18 00:00 CONCLUSION: No evidence of recent bony injury. Procedures Procedures: Left IJ HD tunneled cath placed 02/08/18 by IR Assessment and Plan (1) Acute renal failure: Code(s): N17.9 - Acute kidney failure, unspecified Status: Acute (2) Anemia: Code(s): D64.9 - Anemia, unspecified Status: Acute (3) Hypertension: Code(s): I10 - Essential (primary) hypertension Status: Acute (4) Diabetes: Code(s): E11.9 - Type 2 diabetes mellitus without complications Status: Acute Plan 62-year-old white male who was admitted with cardiogenic shock and acute respiratory failure requiring CPR and epinephrine in the field, after being found down at home and being witnessed to possibly have undergone seizure-like activity. Intubation was attempted in the field but were unable to do so, patient was ultimately intubated in the hospital, started on pressors, placed in the ICU on mechanical ventilation. Found to have bilateral pneumothoraces with chest tubes placed, had developed some pneumoperitoneum which surgically deemed might have been a leak from his chest tubes as opposed to an acute surgical abdomen. Patient was started on antibiotics empirically for possible aspiration pneumonia but was ultimately discontinued off of them by infectious disease. Developed rhabdomyolysis with worsening acute renal failure which became sustained, with the patient now undergoing dialysis. Ultimately was discontinued off pressors, cardiology deferred heart cath due to renal failure. Patient had difficulty following commands after he was discontinued off of sedation and after extubation. Had an MRI done on 01/17 which showed no acute findings, only an older right parietal CVA. EEG was done which was unremarkable. ESRD on HD -dialysis M, W, Fr. First dialysis 01/09/18 -Nephrology consulted and following -R IJ permacath placement 02/08/18 -s/p renal biopsy per IR 03/07/18 -no recovery in renal function, Cr remains around 5. Nephrology dx ESRD - CM ff - for outpatient HD arrangements Pain at renal biopsy site -resolved Abdominal pain, nausea/vomiting -resolved Left sided weakness- improved very mild , aphasia- Improved- speech clear and coherent oriented x 3 - neuro stable -old R CVA right knee pain- t Xrays- negative - able to do knee flexion adn extension, no swelling but pain on full weight bearing - d/w PT- Orthopedics consult for recommendation- any more test or ? brace Possible anoxic brain injury- neuro stable, a x ox 3 -Neurology consulted and following -PT/OT/ST - out of bed daily- patient up and ambulating Dysphagia related to encephalopathy -improved -ST recommends regular diet with thin liquids -continue renal and diabetic diet Possible seizure -continue Keppra -EEG was negative N-STEMI -troponin 0.52, 1.89 & 2.37 respectively -cardiology consulted, rec conservative medical management -continue ASA, Coreg, Isosorbide, amlodipine and atorvastatin Bilateral pneumothoraces - stable -chest tube removed 01/28/18 Pneumoperitoneum with right retroperitoneal gas around the right kidney -Likely secondary to bilateral pneumothoraces with no surgical intervention warranted per general surgery Acute respiratory failure- resolved -continue supplemental O2 PRN Hypothyroidism- on synthroid CM- awaiting SNF bed ? 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
[2018-04-12] MEDS: QUEtiapine 25 MG Tablet PO SCH (21:28)
[2018-04-13] MEDS: Levothyroxine 88 MCG Tablet PO SCH (05:30)
[2018-04-13] MEDS: amLODIPine 10 MG Tablet PO SCH (09:00)
[2018-04-13 09:23] LABS: Albumin 3.2 g/dL (3.4-5.0); Calcium 9.3 mg/dL (8.5-10.1); Carbon Dioxide 31.2 meq/L (21.0-32.0); Phosphorus 4.5 mg/dL (2.5-4.9); Potassium 3.5 meq/L (3.5-5.1)
[2018-04-13] MEDS: Carvedilol 6.25 MG Tablet PO SCH ×2 (09:32→21:10)
[2018-04-13] MEDS: Heparin 10,000 UNITS/10 ML Vial (for IV use) OTHER PRN (11:09)
--- NOTE | 2018-04-13 11:11 | P.PNIM ---
Subjective Interval history: seem 12:33 pm back from HD- toelrated well now up in chair having luch- no complains Physical Exam Vital signs: Vital Signs 04/12/18 12:00 04/12/18 16:00 04/12/18 20:56 Temperature 98.1 F 98.8 F 97.6 F Pulse Rate 92 H 67 72 Respiratory Rate 20 20 18 Blood Pressure 110/50 L 130/49 L 115/78 Pulse Oximetry 95 98 95 04/13/18 00:00 04/13/18 00:10 04/13/18 05:21 Temperature 97.6 F 97.9 F Pulse Rate 94 H 73 81 Respiratory Rate 18 18 Blood Pressure 125/77 122/77 Pulse Oximetry 95 95 04/13/18 07:49 Temperature 97.4 F L Pulse Rate 73 Respiratory Rate 18 Blood Pressure 119/75 Pulse Oximetry 94 L Intake & Output 04/12/18 04/13/18 04/13/18 18:59 06:59 18:59 Intake Total 600 / 600 240 / 240 Output Total 175 / 175 400 / 400 2650 / 2650 Balance 425 / 425 -400 / -400 -2410 / -2410 Weight 93.5 kg Intake: Oral 600 / 600 240 / 240 Output: Urine 175 / 175 400 / 400 150 / 150 Hemodialysis Amount 2500 / 2500 Other: Date of Last Bowel Movement 04/12/18 # Bowel Movements 1 Narrative: awaek and alert, no distreess anciteric lungs- clear regular rhythm abdomensoft, nontender LE- no edmea neuro exam- stable Urinary Catheter Management Indwelling Temp Sensing Catheter: Cath placed during this visit: yes, but has since been removed by the nurse Reason for continuing: Decision to DC catheter Insertion date: 01/14/18 Insertion time: 22:00 Removal date: 01/21/18 Removal time: 18:00 Straight: Cath placed during this visit: yes, but has since been removed by the nurse Reason for continuing: Acute urinary retention Insertion date: 03/16/18 Insertion time: 00:50 Removal date: 03/01/18 Removal time: 23:30 Results Labs CBC & Chem 7: 04/02/18 09:00 04/13/18 08:50 Procedures Procedures: Left IJ HD tunneled cath placed 02/08/18 by IR Assessment and Plan (1) Acute renal failure: Code(s): N17.9 - Acute kidney failure, unspecified Status: Acute (2) Anemia: Code(s): D64.9 - Anemia, unspecified Status: Acute (3) Hypertension: Code(s): I10 - Essential (primary) hypertension Status: Acute (4) Diabetes: Code(s): E11.9 - Type 2 diabetes mellitus without complications Status: Acute Plan 62-year-old white male who was admitted with cardiogenic shock and acute respiratory failure requiring CPR and epinephrine in the field, after being found down at home and being witnessed to possibly have undergone seizure-like activity. Intubation was attempted in the field but were unable to do so, patient was ultimately intubated in the hospital, started on pressors, placed in the ICU on mechanical ventilation. Found to have bilateral pneumothoraces with chest tubes placed, had developed some pneumoperitoneum which surgically deemed might have been a leak from his chest tubes as opposed to an acute surgical abdomen. Patient was started on antibiotics empirically for possible aspiration pneumonia but was ultimately discontinued off of them by infectious disease. Developed rhabdomyolysis with worsening acute renal failure which became sustained, with the patient now undergoing dialysis. Ultimately was discontinued off pressors, cardiology deferred heart cath due to renal failure. Patient had difficulty following commands after he was discontinued off of sedation and after extubation. Had an MRI done on 01/17 which showed no acute findings, only an older right parietal CVA. EEG was done which was unremarkable. ESRD on HD -dialysis M, W, Fr. First dialysis 01/09/18 -Nephrology consulted and following -R IJ permacath placement 02/08/18 -s/p renal biopsy per IR 03/07/18 -no recovery in renal function, Cr remains around 5. Nephrology dx ESRD - CM ff - for outpatient HD arrangements Pain at renal biopsy site -resolved Abdominal pain, nausea/vomiting -resolved Left sided weakness- improved very mild , aphasia- Improved- speech clear and coherent oriented x 3 - neuro stable -old R CVA right knee pain- t Xrays- negative - able to do knee flexion adn extension, no swelling but pain on full weight bearing - get CT right knee without contrast ortho consult if significant finding - PT ff Possible anoxic brain injury- neuro stable, a x ox 3 -Neurology consulted and following -PT/OT/ST - out of bed daily- patient up and ambulating Dysphagia related to encephalopathy -improved -ST recommends regular diet with thin liquids -continue renal and diabetic diet Possible seizure -continue Keppra -EEG was negative N-STEMI -troponin 0.52, 1.89 & 2.37 respectively -cardiology consulted, rec conservative medical management -continue ASA, Coreg, Isosorbide, amlodipine and atorvastatin Bilateral pneumothoraces - stable -chest tube removed 01/28/18 Pneumoperitoneum with right retroperitoneal gas around the right kidney -Likely secondary to bilateral pneumothoraces with no surgical intervention warranted per general surgery Acute respiratory failure- resolved -continue supplemental O2 PRN Hypothyroidism- on synthroid CM- awaiting SNF bed ? Szymanski will d/w CM- Progress Note: Quality VTE Deep Vein Thrombosis/Pulmonary Embolism Present on Admission: No _ (1) Diabetes Qualifiers: Chronic kidney disease stage: Diabetes mellitus complication detail: Diabetes mellitus complication status: Diabetes mellitus half-way insulin use : Diabetes mellitus macular edema: Diabetes mellitus type: Diabetic retinopathy severity: Laterality: Proliferative retinopathy type: (2) Acute renal failure Qualifiers: Acute renal failure type: (3) Anemia Qualifiers: Anemia type: due to chronic kidney disease Bone marrow failure anemia type: Chronic kidney disease stage: Folate deficiency anemia type: Hemolytic anemia type: Iron deficiency anemia type: Other causes of anemia: Vitamin B12 deficiency anemia type: (4) Hypertension Qualifiers: Hypertension type:
--- NOTE | 2018-04-13 11:14 | P.PNNP ---
Subjective Interval history: Patient seen during dialysis tolerating it well denies complaint Physical Exam Vital signs: Vital Signs 04/12/18 12:00 04/12/18 16:00 04/12/18 20:56 Temperature 98.1 F 98.8 F 97.6 F Pulse Rate 92 H 67 72 Respiratory Rate 20 20 18 Blood Pressure 110/50 L 130/49 L 115/78 Pulse Oximetry 95 98 95 04/13/18 00:00 04/13/18 00:10 04/13/18 05:21 Temperature 97.6 F 97.9 F Pulse Rate 94 H 73 81 Respiratory Rate 18 18 Blood Pressure 125/77 122/77 Pulse Oximetry 95 95 04/13/18 07:49 Temperature 97.4 F L Pulse Rate 73 Respiratory Rate 18 Blood Pressure 119/75 Pulse Oximetry 94 L Intake & Output 04/12/18 04/13/18 04/13/18 18:59 06:59 18:59 Intake Total 600 / 600 240 / 240 Output Total 175 / 175 400 / 400 2650 / 2650 Balance 425 / 425 -400 / -400 -2410 / -2410 Weight 93.5 kg Intake: Oral 600 / 600 240 / 240 Output: Urine 175 / 175 400 / 400 150 / 150 Hemodialysis Amount 2500 / 2500 Other: Date of Last Bowel Movement 04/12/18 # Bowel Movements 1 Narrative: GENERAL: oriented x 3, speech clear, in NAD. Right anterior chest with dialysis catheter, no surrounding erythema. Normocephalic. Atraumatic. Mucous membranes pink and moist. CARDIOVASCULAR: Regular rate and rhythm. RESPIRATORY: no rales, no wheezes GASTROINTESTINAL: Abdomen soft, non-tender, nondistended. Normoactive bowel sounds x4. MUSCULOSKELETAL: No obvious deformities. Extremities without clubbing, cyanosis , or edema. NEUROLOGICAL: Awake and alert. No obvious cranial nerve deficits. Moving all extremities spontaneously. Normal speech. - Urinary Catheter Management Indwelling Temp Sensing Catheter Cath placed during this visit: yes, but has since been removed by the nurse Reason for continuing: Decision to DC catheter Insertion date: 01/14/18 Insertion time: 22:00 Removal date: 01/21/18 Removal time: 18:00 Straight Cath placed during this visit: yes, but has since been removed by the nurse Reason for continuing: Acute urinary retention Insertion date: 03/16/18 Insertion time: 00:50 Removal date: 03/01/18 Removal time: 23:30 Assessment and Plan - Assessment (1) Acute renal failure Code(s): N17.9 - Acute kidney failure, unspecified Status: Acute Plan: Remains dialysis dependent at this time. Now ESRD. First HD 01/17/18 , RIJ PermCath placed 02/08/18 HD on Per renal biopsy patient has ATN and cast Nephropathy, due to Rhabdo. Medications should be adjusted for the patient's estimated GFR if clinically indicated. Avoid agents with significant potential for nephrotoxicity possible including NSAIDs for analgesia, iodine contrast agents. Gadolinium is contraindicated if the GFR is below 30. Patient is seen during hemodialysis 2.5 L of ultrafiltration tolerating it Waiting for outpatient placement Dr. Blevins to follow (2) Anemia Code(s): D64.9 - Anemia, unspecified Status: Acute Qualifiers: Anemia type: due to chronic kidney disease Plan: Epogen with dialysis. HGB stable (3) Hypertension Code(s): I10 - Essential (primary) hypertension Status: Acute Plan: Well controlled, will monitor. (4) Diabetes Code(s): E11.9 - Type 2 diabetes mellitus without complications Status: Acute Plan: Maintain blood sugars between 140 mg /dl to 180 mg/dl while hospitalized. Well controlled.
[2018-04-13] MEDS: Folic Acid 1 MG Tablet PO SCH (12:29)
[2018-04-13] MEDS: Senna/Docusate Sodium 8.6/50 MG Tablet PO SCH ×2 (12:29→21:10)
[2018-04-13] MEDS: levETIRAcetam 500 MG Tablet PO SCH ×2 (12:29→21:09)
--- NOTE | 2018-04-13 17:15 | CT ---
EXAM DATE: 04/13/2018 5:07 PM EST AGE/SEX: 62 years / Male INDICATIONS: Right knee pain for three months. CLINICAL DATA: This is the patient's initial encounter. Patient reports that signs and symptoms have been present for 3 months and indicates a pain score of 5/10. MEDICAL/SURGICAL HISTORY: Stroke. Diabetes. Hypertension. None. RADIATION DOSE: 5.57 CTDI (mGy) COMPARISON: No prior exams available for comparison. TECHNIQUE: Multiple contiguous axial images were acquired using a multirow detector CT scanner witho ut contrast. Multiplanar reconstruction was performed in the sagittal and coronal planes. Using aut omated exposure control and adjustment of the mA and/or kV according to patient size, radiation dose was kept as low as reasonably achievable to obtain optimal diagnostic quality images. DICOM format i mage data is available electronically for review and comparison. FINDINGS: Bones: The bony structures about the knee are in normal alignment. The distal femur and proximal ti mir and fibula are intact. No fracture is seen. Joints: No significant arthropathy or bony hypertrophy is seen. Soft Tissues: No soft tissue mass is seen. Other: No foreign bodies seen. CONCLUSION: 1. No acute fracture is identified. Electronically signed by: Tariq Garcia MD Board Certified Radiologist 04/13/2018 5:13 PM EST
--- NOTE | 2018-04-13 19:31 | MB ---
cc: Kvng Cleveland MD DATE: 04/13/2018 REASON FOR CONSULTATION: Right knee pain. HISTORY OF PRESENT ILLNESS: This patient is a 62-year-old male who was admitted to [facility] and has been an inpatient for many weeks for previous sepsis, multisystem organ failure. He has had a prolonged complicated course. He has a history of seizure disorder which was thought to be related to alcohol withdrawal. The patient has been receiving therapy while in inpatient in the hospital and notes pain of the right knee with walking. A detailed history is provided by the patient. He states that he fell about 3 months ago and hurt that knee and since then, he has been having pain in that knee. He states he has actually done physical therapy for his knee and he states this is somewhat of a chronic condition. His knee hurts specifically with standing, weightbearing or bending or climbing. PAST MEDICAL HISTORY: Positive for anxiety, stroke, diabetes, alcohol abuse, hypertension. HOME MEDICATIONS: 1. Atorvastatin. 2. Gabapentin. 3. Glipizide. 4. Levothyroxine. 5. Protonix. 6. Seroquel. 7. Sertraline. 8. Valsartan. ALLERGIES: INCLUDE ERYTHROMYCIN AND PENICILLIN G. REVIEW OF SYSTEMS: Negative on 10 systems unless noted in the HPI. SOCIAL HISTORY: He does have a history of smoking and alcohol. FAMILY HISTORY: Positive for kidney cancer in the mother's side heart disease on the father's side. PHYSICAL EXAMINATION: GENERAL: The patient is awake, alert, lying in bed, in no acute distress. HEENT: Normocephalic, atraumatic. Pupils round. Extraocular muscles intact. NECK: Supple. LUNGS: Clear. HEART: Regular rate and rhythm. ABDOMEN: Soft, nontender. EXTREMITIES: On exam of his right knee, there is no significant swelling of the knee joint, range of motion is 0 to 130,which is painless and symmetric. No ligamentous instability. He has mild joint tenderness along the medial aspect. Neurovascularly intact distally. IMAGING DATA: X-ray of the right knee, AP, lateral view shows no fractures or dislocations, only mild degenerative changes. IMPRESSION: History of a fall 3 months ago, right knee contusion, possible meniscal tear or internal derangement. He has multiple medical comorbidities and is hospitalized for sepsis, which is still recovering from. PLAN: Weightbearing as tolerated. The patient states he is planning on leaving the hospital very soon. He can follow up with me in [facility] on an outpatient basis if further workup and treatment is needed. Kvng Cleveland MD JWM/ct , 05:06 PM , 05:13 PM
[2018-04-13] MEDS: QUEtiapine 25 MG Tablet PO SCH (21:09)
[2018-04-14] MEDS: Levothyroxine 88 MCG Tablet PO SCH (06:44)
[2018-04-14] MEDS: levETIRAcetam 500 MG Tablet PO SCH ×2 (09:21→20:45)
[2018-04-14] MEDS: Senna/Docusate Sodium 8.6/50 MG Tablet PO SCH ×2 (09:21→20:46)
[2018-04-14] MEDS: Folic Acid 1 MG Tablet PO SCH (09:21)
[2018-04-14] MEDS: amLODIPine 10 MG Tablet PO SCH (09:24)
[2018-04-14] MEDS: Carvedilol 6.25 MG Tablet PO SCH ×2 (09:24→20:46)
--- NOTE | 2018-04-14 13:10 | P.PNIM ---
Subjective Interval history: afebrile no complains of knee pain today up and ambulating with a walker Physical Exam Vital signs: Vital Signs 04/13/18 16:00 04/13/18 20:00 04/13/18 20:53 Temperature 97.7 F 98.9 F Pulse Rate 94 H 103 H 101 H Respiratory Rate 18 20 Blood Pressure 145/83 H 143/71 H Pulse Oximetry 95 95 04/14/18 00:00 04/14/18 00:36 04/14/18 04:00 Temperature 98.3 F Pulse Rate 82 83 77 Respiratory Rate 18 Blood Pressure 111/67 Pulse Oximetry 95 04/14/18 04:10 04/14/18 07:31 04/14/18 11:25 Temperature 98.3 F 98 F 97.4 F L Pulse Rate 83 87 85 Respiratory Rate 18 20 18 Blood Pressure 106/70 104/59 L 112/80 Pulse Oximetry 94 L 93 L 97 Intake & Output 04/13/18 04/14/18 04/14/18 18:59 06:59 18:59 Intake Total 1200 / 1200 720 / 720 Output Total 2750 / 2750 175 / 175 100 / 100 Balance -1550 / -1550 -175 / -175 620 / 620 Weight 91.1 kg Intake: Oral 1200 / 1200 720 / 720 Output: Urine 250 / 250 175 / 175 100 / 100 Hemodialysis Amount 2500 / 2500 Other: Date of Last Bowel Movement 04/12/18 04/13/18 # Bowel Movements 1 Narrative: anicteric neck supple lungs- no rales regular rhythm abdomensoft, nontender extrmeiites no edema- n knee swelling Urinary Catheter Management Indwelling Temp Sensing Catheter: Cath placed during this visit: yes, but has since been removed by the nurse Reason for continuing: Decision to DC catheter Insertion date: 01/14/18 Insertion time: 22:00 Removal date: 01/21/18 Removal time: 18:00 Straight: Cath placed during this visit: yes, but has since been removed by the nurse Reason for continuing: Acute urinary retention Insertion date: 03/16/18 Insertion time: 00:50 Removal date: 03/01/18 Removal time: 23:30 Results Labs CBC & Chem 7: 04/02/18 09:00 04/13/18 08:50 Imaging Imaging: Impressions Knee CT 04/13/18 00:00 CONCLUSION: 1. No acute fracture is identified. Procedures Procedures: Left IJ HD tunneled cath placed 02/08/18 by IR Assessment and Plan (1) Acute renal failure: Code(s): N17.9 - Acute kidney failure, unspecified Status: Acute (2) Anemia: Code(s): D64.9 - Anemia, unspecified Status: Acute (3) Hypertension: Code(s): I10 - Essential (primary) hypertension Status: Acute (4) Diabetes: Code(s): E11.9 - Type 2 diabetes mellitus without complications Status: Acute Plan 62-year-old white male who was admitted with cardiogenic shock and acute respiratory failure requiring CPR and epinephrine in the field, after being found down at home and being witnessed to possibly have undergone seizure-like activity. Intubation was attempted in the field but were unable to do so, patient was ultimately intubated in the hospital, started on pressors, placed in the ICU on mechanical ventilation. Found to have bilateral pneumothoraces with chest tubes placed, had developed some pneumoperitoneum which surgically deemed might have been a leak from his chest tubes as opposed to an acute surgical abdomen. Patient was started on antibiotics empirically for possible aspiration pneumonia but was ultimately discontinued off of them by infectious disease. Developed rhabdomyolysis with worsening acute renal failure which became sustained, with the patient now undergoing dialysis. Ultimately was discontinued off pressors, cardiology deferred heart cath due to renal failure. Patient had difficulty following commands after he was discontinued off of sedation and after extubation. Had an MRI done on 01/17 which showed no acute findings, only an older right parietal CVA. EEG was done which was unremarkable. ESRD on HD -dialysis M, W, Fr. First dialysis 01/09/18 -Nephrology consulted and following -R IJ permacath placement 02/08/18 -s/p renal biopsy per IR 03/07/18 -no recovery in renal function, Cr remains around 5. Nephrology ff - CM ff - for outpatient HD arrangements Pain at renal biopsy site -resolved Abdominal pain, nausea/vomiting -resolved Left sided weakness- improved very mild , aphasia- Improved- speech clear and coherent oriented x 3 - neuro stable -old R CVA right knee pain-- no coplains today 04/14 -CT of knee and t Xrays- negative - able to do knee flexion adn extension - PT ff Possible anoxic brain injury- neuro stable, a x ox 3 -Neurology consulted and following -PT/OT/ST - out of bed daily- patient up and ambulating Dysphagia related to encephalopathy -improved -ST recommends regular diet with thin liquids -continue renal and diabetic diet Possible seizure -continue Keppra -EEG was negative N-STEMI -troponin 0.52, 1.89 & 2.37 respectively -cardiology consulted, rec conservative medical management -continue ASA, Coreg, Isosorbide, amlodipine and atorvastatin Bilateral pneumothoraces - stable -chest tube removed 01/28/18 Pneumoperitoneum with right retroperitoneal gas around the right kidney -Likely secondary to bilateral pneumothoraces with no surgical intervention warranted per general surgery Acute respiratory failure- resolved -continue supplemental O2 PRN Hypothyroidism- on synthroid CM- awaiting SNF bed ? 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
[2018-04-14] MEDS: QUEtiapine 25 MG Tablet PO SCH (20:44)
[2018-04-15] MEDS: Levothyroxine 88 MCG Tablet PO SCH (05:41)
[2018-04-15] MEDS: Folic Acid 1 MG Tablet PO SCH (08:18)
[2018-04-15] MEDS: amLODIPine 10 MG Tablet PO SCH (08:19)
[2018-04-15] MEDS: Carvedilol 6.25 MG Tablet PO SCH ×2 (08:19→22:52)
[2018-04-15] MEDS: Senna/Docusate Sodium 8.6/50 MG Tablet PO SCH ×2 (08:19→22:52)
[2018-04-15] MEDS: levETIRAcetam 500 MG Tablet PO SCH ×2 (08:19→22:51)
--- NOTE | 2018-04-15 10:31 | P.PNIM ---
Subjective Interval history: awake wanda zamudio very interactive and vigilant with his exercises good po- asking to have his diet change no nausea or vomiting no knee pain complains Physical Exam Vital signs: Vital Signs 04/14/18 11:25 04/14/18 12:00 04/14/18 15:40 Temperature 97.4 F L 97.6 F Pulse Rate 85 96 H 73 Respiratory Rate 18 18 Blood Pressure 112/80 125/73 Pulse Oximetry 97 95 04/14/18 16:00 04/14/18 20:00 04/14/18 20:21 Temperature 98.1 F Pulse Rate 87 74 72 Respiratory Rate 18 Blood Pressure 124/75 Pulse Oximetry 98 04/15/18 00:33 04/15/18 04:59 04/15/18 07:35 Temperature 97.5 F L 97.6 F 97.4 F L Pulse Rate 86 73 73 Respiratory Rate 18 18 18 Blood Pressure 116/73 109/73 127/88 Pulse Oximetry 95 95 94 L Intake & Output 04/14/18 04/15/18 04/15/18 18:59 06:59 18:59 Intake Total 1200 / 1200 Output Total 100 / 100 250 / 250 Balance 1100 / 1100 -250 / -250 Weight 91.5 kg Intake: Oral 1200 / 1200 Output: Urine 100 / 100 250 / 250 Other: Date of Last Bowel Movement 04/13/18 04/13/18 # Bowel Movements 1 Narrative: awake andalert, oriented x 3,s peech clear anciteric lungs- clear regular rhythm abdomensoft, nontender extrmeites no edmea- right knee no swelling- some ressitance with full flexion left knee - good range of motion up and ambualting with walker Urinary Catheter Management Indwelling Temp Sensing Catheter: Cath placed during this visit: yes, but has since been removed by the nurse Reason for continuing: Decision to DC catheter Insertion date: 01/14/18 Insertion time: 22:00 Removal date: 01/21/18 Removal time: 18:00 Straight: Cath placed during this visit: yes, but has since been removed by the nurse Reason for continuing: Acute urinary retention Insertion date: 03/16/18 Insertion time: 00:50 Removal date: 03/01/18 Removal time: 23:30 Results Labs CBC & Chem 7: 04/02/18 09:00 04/13/18 08:50 Procedures Procedures: Left IJ HD tunneled cath placed 02/08/18 by IR Assessment and Plan (1) Acute renal failure: Code(s): N17.9 - Acute kidney failure, unspecified Status: Acute (2) Anemia: Code(s): D64.9 - Anemia, unspecified Status: Acute (3) Hypertension: Code(s): I10 - Essential (primary) hypertension Status: Acute (4) Diabetes: Code(s): E11.9 - Type 2 diabetes mellitus without complications Status: Acute Plan 62-year-old white male who was admitted with cardiogenic shock and acute respiratory failure requiring CPR and epinephrine in the field, after being found down at home and being witnessed to possibly have undergone seizure-like activity. Intubation was attempted in the field but were unable to do so, patient was ultimately intubated in the hospital, started on pressors, placed in the ICU on mechanical ventilation. Found to have bilateral pneumothoraces with chest tubes placed, had developed some pneumoperitoneum which surgically deemed might have been a leak from his chest tubes as opposed to an acute surgical abdomen. Patient was started on antibiotics empirically for possible aspiration pneumonia but was ultimately discontinued off of them by infectious disease. Developed rhabdomyolysis with worsening acute renal failure which became sustained, with the patient now undergoing dialysis. Ultimately was discontinued off pressors, cardiology deferred heart cath due to renal failure. Patient had difficulty following commands after he was discontinued off of sedation and after extubation. Had an MRI done on 01/17 which showed no acute findings, only an older right parietal CVA. EEG was done which was unremarkable. ESRD on HD -dialysis M, W, Fr. First dialysis 01/09/18 -Nephrology consulted and following -R IJ permacath placement 02/08/18 -s/p renal biopsy per IR 03/07/18 -no recovery in renal function, Cr remains around 5. Nephrology ff - CM ff - for outpatient HD arrangements Pain at renal biopsy site -resolved Abdominal pain, nausea/vomiting -resolved Left sided weakness- improved very mild , aphasia- Resolved speech clear and coherent oriented x 3 - neuro stable -old R CVA Right knee pain-- Possible Meniscal tear - getting better -CT of knee and t Xrays- negative - able to do knee flexion and extension- with minimal discomfort - appreciate Dr. baxter seeing patient 04/13- possible meniscal tear -weight bearing as tolerated- continue PT - OP ff up with him once discharge Possible anoxic brain injury- neuro stable, a x ox 3 -Neurology consulted and following -PT/OT/ST - out of bed daily- patient up and ambulating Dysphagia related to encephalopathy -improved -ST recommends regular diet with thin liquids -continue renal and diabetic diet Possible seizure -continue Keppra -EEG was negative N-STEMI -troponin 0.52, 1.89 & 2.37 respectively -cardiology consulted, rec conservative medical management -continue ASA, Coreg, Isosorbide, amlodipine and atorvastatin Bilateral pneumothoraces - stable -chest tube removed 01/28/18 Pneumoperitoneum with right retroperitoneal gas around the right kidney -Likely secondary to bilateral pneumothoraces with no surgical intervention warranted per general surgery Acute respiratory failure- resolved -continue supplemental O2 PRN Hypothyroidism- on synthroid CM- awaiting SNF bed ? Szymanski will d/w CM- in MDR Progress Note: Quality VTE Deep Vein Thrombosis/Pulmonary Embolism Present on Admission: No _ (1) Diabetes Qualifiers: Chronic kidney disease stage: Diabetes mellitus complication detail: Diabetes mellitus complication status: Diabetes mellitus half-way insulin use : Diabetes mellitus macular edema: Diabetes mellitus type: Diabetic retinopathy severity: Laterality: Proliferative retinopathy type: (2) Acute renal failure Qualifiers: Acute renal failure type: (3) Anemia Qualifiers: Anemia type: due to chronic kidney disease Bone marrow failure anemia type: Chronic kidney disease stage: Folate deficiency anemia type: Hemolytic anemia type: Iron deficiency anemia type: Other causes of anemia: Vitamin B12 deficiency anemia type: (4) Hypertension Qualifiers: Hypertension type:
--- NOTE | 2018-04-15 15:51 | P.PNNP ---
Subjective Interval history: Resting comfortably. No shortness of breath, nausea, or vomiting. Hemodialysis planned for tomorrow. <Smiley Barth - Last Filed: 04/15/18 15:47> Physical Exam Vital signs: Vital Signs 04/14/18 16:00 04/14/18 20:00 04/14/18 20:21 Temperature 98.1 F Pulse Rate 87 74 72 Respiratory Rate 18 Blood Pressure 124/75 Pulse Oximetry 98 04/15/18 00:33 04/15/18 04:59 04/15/18 07:35 Temperature 97.5 F L 97.6 F 97.4 F L Pulse Rate 86 73 73 Respiratory Rate 18 18 18 Blood Pressure 116/73 109/73 127/88 Pulse Oximetry 95 95 94 L 04/15/18 11:39 04/15/18 15:26 Temperature 97.4 F L 98.4 F Pulse Rate 64 92 H Respiratory Rate 18 18 Blood Pressure 138/79 106/68 Pulse Oximetry 97 95 Intake & Output 04/14/18 04/15/18 04/15/18 18:59 06:59 18:59 Intake Total 1200 / 1200 1200 / 1200 Output Total 100 / 100 250 / 250 300 / 300 Balance 1100 / 1100 -250 / -250 900 / 900 Weight 91.5 kg Intake: Oral 1200 / 1200 1200 / 1200 Output: Urine 100 / 100 250 / 250 300 / 300 Other: Date of Last Bowel Movement 04/13/18 04/13/18 04/13/18 # Bowel Movements 1 Narrative: GENERAL: oriented x 3, speech clear, in NAD. Right anterior chest with dialysis catheter, no surrounding erythema. Normocephalic. Atraumatic. Mucous membranes pink and moist. CARDIOVASCULAR: Regular rate and rhythm. RESPIRATORY: no rales, no wheezes GASTROINTESTINAL: Abdomen soft, non-tender, nondistended. Normoactive bowel sounds x4. MUSCULOSKELETAL: No obvious deformities. Extremities without clubbing, cyanosis , or edema. NEUROLOGICAL: Awake and alert. No obvious cranial nerve deficits. Moving all extremities spontaneously. Normal speech. - Urinary Catheter Management Indwelling Temp Sensing Catheter Cath placed during this visit: yes, but has since been removed by the nurse Reason for continuing: Decision to DC catheter Insertion date: 01/14/18 Insertion time: 22:00 Removal date: 01/21/18 Removal time: 18:00 Straight Cath placed during this visit: yes, but has since been removed by the nurse Reason for continuing: Acute urinary retention Insertion date: 03/16/18 Insertion time: 00:50 Removal date: 03/01/18 Removal time: 23:30 <Smiley Barth - Last Filed: 04/15/18 15:47> Vital signs: Vital Signs 04/14/18 20:00 04/14/18 20:21 04/15/18 00:33 Temperature 98.1 F 97.5 F L Pulse Rate 74 72 86 Respiratory Rate 18 18 Blood Pressure 124/75 116/73 Pulse Oximetry 98 95 04/15/18 04:59 04/15/18 07:35 04/15/18 11:39 Temperature 97.6 F 97.4 F L 97.4 F L Pulse Rate 73 73 64 Respiratory Rate 18 18 18 Blood Pressure 109/73 127/88 138/79 Pulse Oximetry 95 94 L 97 04/15/18 15:26 Temperature 98.4 F Pulse Rate 92 H Respiratory Rate 18 Blood Pressure 106/68 Pulse Oximetry 95 Intake & Output 04/14/18 04/15/18 04/15/18 18:59 06:59 18:59 Intake Total 1200 / 1200 2400 / 2400 Output Total 100 / 100 250 / 250 500 / 500 Balance 1100 / 1100 -250 / -250 1900 / 1900 Weight 91.5 kg Intake: Oral 1200 / 1200 2400 / 2400 Output: Urine 100 / 100 250 / 250 500 / 500 Other: Date of Last Bowel Movement 04/13/18 04/13/18 04/13/18 # Bowel Movements 1 - Urinary Catheter Management Indwelling Temp Sensing Catheter Cath placed during this visit: no Straight Cath placed during this visit: no <Brianna Blevins - Last Filed: 04/15/18 17:42> Assessment and Plan - Assessment (1) Acute renal failure Code(s): N17.9 - Acute kidney failure, unspecified Status: Acute Plan: Remains dialysis dependent at this time. Now ESRD. First HD 01/17/18 , RIJ PermCath placed 02/08/18 HD on Per renal biopsy patient has ATN and cast Nephropathy, due to Rhabdo. Medications should be adjusted for the patient's estimated GFR if clinically indicated. Avoid agents with significant potential for nephrotoxicity possible including NSAIDs for analgesia, iodine contrast agents. Gadolinium is contraindicated if the GFR is below 30. Hemodialysis planned for tomorrow Awaiting outpatient hemodialysis arrangements Labs in AM (2) Anemia Code(s): D64.9 - Anemia, unspecified Status: Acute Qualifiers: Anemia type: due to chronic kidney disease Plan: Epogen with dialysis. HGB stable (3) Hypertension Code(s): I10 - Essential (primary) hypertension Status: Acute Plan: Well controlled, will monitor. (4) Diabetes Code(s): E11.9 - Type 2 diabetes mellitus without complications Status: Acute Plan: Maintain blood sugars between 140 mg /dl to 180 mg/dl while hospitalized. Well controlled. <Smiley Barth - Last Filed: 04/15/18 15:47> - Assessment (1) Acute renal failure Code(s): N17.9 - Acute kidney failure, unspecified Status: Acute Plan: Patient seen and examined, agree with above. Creatinine still elevated. HD will be in AM. (2) Anemia Code(s): D64.9 - Anemia, unspecified Status: Acute Qualifiers: Anemia type: due to chronic kidney disease (3) Hypertension Code(s): I10 - Essential (primary) hypertension Status: Acute (4) Diabetes Code(s): E11.9 - Type 2 diabetes mellitus without complications Status: Acute <Brianna Blevins - Last Filed: 04/15/18 17:42>
[2018-04-15] MEDS: QUEtiapine 25 MG Tablet PO SCH (22:50)
[2018-04-16] MEDS: Levothyroxine 88 MCG Tablet PO SCH (05:58)
[2018-04-16 08:45] LABS: Baso # (Auto) 0.1 th/mm3 (0.0-0.2); Eos # (Auto) 0.3 th/mm3 (0.0-0.4); Eos % (Auto) 3.6 % (0.0-4.0); Hematocrit 39.6 % (39.0-51.0); Hemoglobin 12.7 gm/dL (13.0-17.0); Lymph # (Auto) 1.2 th/mm3 (1.0-4.8); Lymph % (Auto) 14.5 % (9.0-44.0); Mean Corpuscular Volume 84.6 fL (80.0-100.0); Mean Platelet Volume 7.7 fL (7.0-11.0); Mono # (Auto) 0.6 th/mm3 (0.0-0.9); Mono % (Auto) 7.2 % (0.0-8.0); Neut % (Auto) 73.7 % (16.0-70.0); Platelet Count 222 th/mm3 (150-450); Red Blood Count 4.68 mil/mm3 (4.50-5.90); Red Cell Distribution Width 16.4 % (11.6-17.2); White Blood Count 8.1 th/mm3 (4.0-11.0)
[2018-04-16 09:12] LABS: Calcium 8.8 mg/dL (8.5-10.1); Carbon Dioxide 29.6 meq/L (21.0-32.0); Phosphorus 4.3 mg/dL (2.5-4.9); Potassium 3.5 meq/L (3.5-5.1)
[2018-04-16] MEDS: Heparin 10,000 UNITS/10 ML Vial (for IV use) OTHER PRN (10:46)
--- NOTE | 2018-04-16 14:28 | P.PNNP ---
Subjective Interval history: Seen in AM during hemodialysis tolerating well. No shortness of breath, nausea , vomiting or diarrhea. <Smiley Barth - Last Filed: 04/16/18 14:25> Physical Exam Vital signs: Vital Signs 04/15/18 15:26 04/15/18 20:00 04/15/18 20:05 Temperature 98.4 F 97.7 F Pulse Rate 92 H 90 Respiratory Rate 18 18 18 Blood Pressure 106/68 123/75 Pulse Oximetry 95 94 L 04/16/18 00:00 04/16/18 04:55 04/16/18 12:00 Temperature 97.8 F 98.5 F 98.2 F Pulse Rate 84 109 H 98 H Respiratory Rate 18 17 22 Blood Pressure 125/72 111/77 113/70 Pulse Oximetry 94 L 94 L 96 Intake & Output 04/15/18 04/16/18 04/16/18 18:59 06:59 18:59 Intake Total 2400 / 2400 600 / 600 Output Total 500 / 500 200 / 200 2000 / 2000 Balance 1900 / 1900 -200 / -200 -1400 / -1400 Weight 91.5 kg Intake: Oral 2400 / 2400 600 / 600 Output: Urine 500 / 500 200 / 200 500 / 500 Hemodialysis Amount 1500 / 1500 Other: Date of Last Bowel Movement 04/13/18 Narrative: GENERAL: oriented x 3, speech clear, in NAD. Right anterior chest with dialysis catheter, no surrounding erythema. Normocephalic. Atraumatic. Mucous membranes pink and moist. CARDIOVASCULAR: Regular rate and rhythm. RESPIRATORY: no rales, no wheezes GASTROINTESTINAL: Abdomen soft, non-tender, nondistended. Normoactive bowel sounds x4. MUSCULOSKELETAL: No obvious deformities. Extremities without clubbing, cyanosis , or edema. NEUROLOGICAL: Awake and alert. No obvious cranial nerve deficits. Moving all extremities spontaneously. Normal speech. - Urinary Catheter Management Indwelling Temp Sensing Catheter Cath placed during this visit: yes, but has since been removed by the nurse Reason for continuing: Decision to DC catheter Insertion date: 01/14/18 Insertion time: 22:00 Removal date: 01/21/18 Removal time: 18:00 Straight Cath placed during this visit: yes, but has since been removed by the nurse Reason for continuing: Acute urinary retention Insertion date: 03/16/18 Insertion time: 00:50 Removal date: 03/01/18 Removal time: 23:30 <Smiley Barth - Last Filed: 04/16/18 14:25> Vital signs: Vital Signs 04/15/18 20:00 04/15/18 20:05 04/16/18 00:00 Temperature 97.7 F 97.8 F Pulse Rate 90 84 Respiratory Rate 18 18 18 Blood Pressure 123/75 125/72 Pulse Oximetry 94 L 94 L 04/16/18 04:55 04/16/18 12:00 04/16/18 16:00 Temperature 98.5 F 98.2 F 98.2 F Pulse Rate 109 H 98 H 103 H Respiratory Rate 17 22 20 Blood Pressure 111/77 113/70 102/62 Pulse Oximetry 94 L 96 96 Intake & Output 04/15/18 04/16/18 04/16/18 18:59 06:59 18:59 Intake Total 2400 / 2400 600 / 600 Output Total 500 / 500 200 / 200 2000 / 2000 Balance 1900 / 1900 -200 / -200 -1400 / -1400 Weight 91.5 kg Intake: Oral 2400 / 2400 600 / 600 Output: Urine 500 / 500 200 / 200 500 / 500 Hemodialysis Amount 1500 / 1500 Other: Date of Last Bowel Movement 04/13/18 - Urinary Catheter Management Indwelling Temp Sensing Catheter Cath placed during this visit: no Straight Cath placed during this visit: no <Brianna Blevins - Last Filed: 04/16/18 18:00> Assessment and Plan - Assessment (1) Acute renal failure Code(s): N17.9 - Acute kidney failure, unspecified Status: Acute Plan: Remains dialysis dependent at this time. Now ESRD. First HD 01/17/18 , RIJ PermCath placed 02/08/18 HD on Per renal biopsy patient has ATN and cast Nephropathy, due to Rhabdo. Medications should be adjusted for the patient's estimated GFR if clinically indicated. Avoid agents with significant potential for nephrotoxicity possible including NSAIDs for analgesia, iodine contrast agents. Gadolinium is contraindicated if the GFR is below 30. Seen during hemodialysis today, 3 K bath with plan to remove 3 liters of fluid Transitional HD being arranged, creatinine remains elevated. (2) Anemia Code(s): D64.9 - Anemia, unspecified Status: Acute Qualifiers: Anemia type: due to chronic kidney disease Plan: Epogen with dialysis. HGB stable (3) Hypertension Code(s): I10 - Essential (primary) hypertension Status: Acute Plan: Well controlled, will monitor. (4) Diabetes Code(s): E11.9 - Type 2 diabetes mellitus without complications Status: Acute Plan: Maintain blood sugars between 140 mg /dl to 180 mg/dl while hospitalized. Well controlled. <Smiley Barth - Last Filed: 04/16/18 14:25> - Assessment (1) Acute renal failure Code(s): N17.9 - Acute kidney failure, unspecified Status: Acute Plan: Patient seen and examined, agree with above. HD done in AM. Out Patient HD arrangement in progress. Orders for Out patient HD written. (2) Anemia Code(s): D64.9 - Anemia, unspecified Status: Acute Qualifiers: Anemia type: due to chronic kidney disease (3) Hypertension Code(s): I10 - Essential (primary) hypertension Status: Acute (4) Diabetes Code(s): E11.9 - Type 2 diabetes mellitus without complications Status: Acute <Brianna Blevins - Last Filed: 04/16/18 18:00>
[2018-04-16] MEDS: Folic Acid 1 MG Tablet PO SCH (14:33)
[2018-04-16] MEDS: levETIRAcetam 500 MG Tablet PO SCH ×2 (14:33→20:34)
[2018-04-16] MEDS: Carvedilol 6.25 MG Tablet PO SCH ×2 (14:33→20:34)
[2018-04-16] MEDS: Senna/Docusate Sodium 8.6/50 MG Tablet PO SCH ×2 (14:34→20:34)
[2018-04-16] MEDS: amLODIPine 10 MG Tablet PO SCH (14:34)
--- NOTE | 2018-04-16 18:25 | P.DS ---
DS: Providers Date of admission: 01/14/18 22:54 Primary care physician: UNKNOWN Consults: 03/10/18 20:52 Consult to Urology Routine Consulting Provider: Dionisio Arias Reason for Consultation: hematuria Notified:: Service Spoke with:: Tea Date Notified:: 03/10/18 Time Notified:: 20:59 Ordering Provider: JUAN F 03/13/18 11:45 Consult to Psychiatry Routine Consulting Provider: Kosta Barraza Reason for Consultation: Assistance in determining competence/decision- making ability. Also appreciate assistance with medication management to help control symptoms. Notified:: Office Spoke with:: Opal Date Notified:: 03/13/18 Time Notified:: 11:50 Ordering Provider: SOMMER 04/12/18 12:00 Consult to Orthopedic Surgery Routine Consulting Provider: Kvng [place] Reason for Consultation: right knee pain- specially with wieghtbearing ESRD on HD Notified:: Office Spoke with:: YANETH Date Notified:: 04/12/18 Time Notified:: 12:05 Ordering Provider: ADRIENNE 01/15/18 06:57 Consult to Infectious Diseases Routine Consulting Provider: Sakina Murray Preferred Manager Local:: Sakina Murray Reason for Consultation: Severe sepsis Notified:: Service Spoke with:: Sally Date Notified:: 01/15/18 Time Notified:: 07:06 Ordering Provider: LUCI 01/15/18 07:45 Consult to Cardiology Routine Consulting Provider: Adriano Gomez Does the patient have a Obstetrics Tech who follows them?: No Preferred Safety Net Maker:: Finished Cigar Maker Physician Reason for Consultation: Non-STEMI Notified:: Office Spoke with:: Jessica Date Notified:: 01/15/18 Time Notified:: 07:49 Ordering Provider: LUCI 01/15/18 10:51 Consult to Gastroenterology Routine Consulting Provider: Pako Fournier Reason for Consultation: suspected esophageal perforation Notified:: Office Spoke with:: YAZMIN Date Notified:: 01/15/18 Time Notified:: 10:54 Ordering Provider: JEOVANY 01/16/18 07:40 Consult to Nephrology Routine Consulting Provider: Kd Rudd Does the patient have a Environmental Science Technician who follows them?: No Preferred Nephrology Manager Local:: Finished Cigar Maker Physician Reason for Consultation: Acute kidney injury with a creatinine currently 4.0. Patient measured with non-STEMI/bilateral pneumothoraces. Severe sepsis. Notified:: Service Spoke with:: evie Date Notified:: 01/16/18 Time Notified:: 08:02 Ordering Provider: AZALEA 01/26/18 16:11 Consult to Hospitalist Routine Consulting Provider: Tod Sanabria Reason for Consultation: Acute hypoxemic respiratory failure. Patient is status post chest tube bilaterally managed by CTS, to be maintained. Extubated . Altered mental status Notified:: Service Spoke with:: Jessica Date Notified:: 01/26/18 Time Notified:: 16:15 Ordering Provider: RAVINDRA 01/27/18 12:04 Consult to Neurology Routine Consulting Provider: Zac Jo Reason for Consultation: acute sustained neurologic deficits; neg head MRI Notified:: Service Spoke with:: MANJIT Date Notified:: 01/27/18 Time Notified:: 12:10 Ordering Provider: KEYUR 01/28/18 11:54 Consult to Pulmonology Routine Consulting Provider: Dina Rob Reason for Consultation: bilateral pneumothoraces; chest tubes in place; left one possibly not working Notified:: Service Spoke with:: Antonio Date Notified:: 01/28/18 Time Notified:: 12:11 Ordering Provider: KEYUR 01/30/18 17:03 Consult to Palliative Care Routine Consulting Provider: Jordon Bhat Reason for Consultation: SP CARDIOGENIC SHOCK ON HD WITH ALTERED MENTAL STATUS Notified:: Service Spoke with:: MANJIT Date Notified:: 01/30/18 Time Notified:: 17:08 Ordering Provider: MERARY 02/02/18 12:44 Consult to Infectious Diseases Routine Consulting Provider: Sakina Murray Preferred Manager Local:: Sakina Murray Patient known to:: Sakina Murray Reason for Consultation: Please give opinion regarding significance of blood culture showing staph epi. Patient has a Vas-Cath. Notified:: Service Spoke with:: ROSITA Date Notified:: 02/02/18 Time Notified:: 12:52 Ordering Provider: SHMUEL Brief History from admission: 62-year-old male patient presents because he was found down by family, on evaluation by EMS he had notable seizures, and they had tried Versed without success, he was vomiting dark material. They tried to intubate him for airway protection, but were unable to intubate him. However, the seizures had stopped at that point. He was obtunded in the ER and was intubated by ED attending. Shortly after intubation patient lost his pulses and CPR was initiated. He has regained spontaneous circulation after 2 cycles of CPR and injections of epinephrine. There was significant subcutaneous emphysema noticed and the patient was rushed to CT for the CT of the head chest and abdomen that showed large bilateral pneumothoraces, as well as free air in peritoneal cavity. Bilateral chest tubes were placed immediately in the emergency department. The free air in the peritoneum with was discussed with the surgeon supervisor calibration Dr. Jimenez. It was felt the air in abdominal cavity is more likely leak from the chest cavity from bilateral tension pneumothoraces and observation without emergent surgical intervention was recommended. The patient was transferred to ICU where he suffered another cardiac arrest. He has regained again spontaneous circulation post 2 cycles of CPR, 2 A of sodium bicarb and 2 A of epinephrine. The patient's was updated about the critical condition at the bedside. DS: Diagnosis Discharge Diagnosis (1) Acute renal failure: Status: Acute (2) Anemia: Status: Acute (3) Hypertension: Status: Acute (4) Diabetes: Status: Acute DS: Summary 62-year-old white male who was admitted with cardiogenic shock and acute respiratory failure requiring CPR and epinephrine in the field, after being found down at home and being witnessed to possibly have undergone seizure-like activity. Intubation was attempted in the field but were unable to do so, patient was ultimately intubated in the hospital, started on pressors, placed in the ICU on mechanical ventilation. Found to have bilateral pneumothoraces with chest tubes placed, had developed some pneumoperitoneum which surgically deemed might have been a leak from his chest tubes as opposed to an acute surgical abdomen. Patient was started on antibiotics empirically for possible aspiration pneumonia but was ultimately discontinued off of them by infectious disease. Developed rhabdomyolysis with worsening acute renal failure which became sustained, with the patient now undergoing dialysis. Ultimately was discontinued off pressors, cardiology deferred heart cath due to renal failure. Patient had difficulty following commands after he was discontinued off of sedation and after extubation. Had an MRI done on 01/17 which showed no acute findings, only an older right parietal CVA. EEG was done which was unremarkable. ESRD on HD -dialysis M, W, Fr. First dialysis 01/09/18 -Nephrology consulted and following -R IJ permacath placement 02/08/18 -s/p renal biopsy per IR 03/07/18 -no recovery in renal function, Cr remains around 5. Nephrology recommended transitional dialysis. Case management arrange dialysis. Left sided weakness- improved very mild , aphasia- Resolved speech clear and coherent oriented x 3 - neuro stable - old R CVA Right knee pain-- Possible Meniscal tear - getting better -CT of knee and t Xrays- negative - able to do knee flexion and extension- with minimal discomfort - appreciate Dr. cleveland seeing patient 04/13- possible meniscal tear -weight bearing as tolerated- continue PT - OP ff up with him once discharge Possible anoxic brain injury- neuro stable, a x ox 3 -Neurology consulted and following -PT/OT/ST - out of bed daily- patient up and ambulating Dysphagia related to encephalopathy -improved -ST recommends regular diet with thin liquids -continue renal and diabetic diet Possible seizure -continue Keppra -EEG was negative N-STEMI -troponin 0.52, 1.89 & 2.37 respectively -cardiology consulted, rec conservative medical management -continue ASA, Coreg, Isosorbide, amlodipine and atorvastatin Bilateral pneumothoraces - stable -chest tube removed 01/28/18 Pneumoperitoneum with right retroperitoneal gas around the right kidney -Likely secondary to bilateral pneumothoraces with no surgical intervention warranted per general surgery Acute respiratory failure- resolved -continue supplemental O2 PRN Hypothyroidism- on levothyroxine. Overall, patient continued to do well. Nephrology recommended transitional dialysis and case management arranged dialysis. Patient remains hemodynamically stable. Neurologically stable. Front-wheeled walker arranged. Patient is subsequently discharged home with his . Time Spent with Patient Total time spent providing and/or coordinating discharge services: Less than 30 minutes Quality: VTE Deep Vein Thrombosis/Pulmonary Embolism Present on Admission: No Exam Narrative Exam Narrative: GENERAL: Well-nourished, well-developed patient. SKIN: Warm and dry. HEAD: Normocephalic. EYES: No scleral icterus. No injection or drainage. NECK: Supple, trachea midline. No JVD or lymphadenopathy. CARDIOVASCULAR: Regular rate and rhythm without murmurs, gallops, or rubs. RESPIRATORY: Breath sounds equal bilaterally. No accessory muscle use. GASTROINTESTINAL: Abdomen soft, non-tender, nondistended. MUSCULOSKELETAL: No cyanosis, or edema. BACK: Nontender without obvious deformity. No CVA tenderness. Results Procedures completed during hospitalization: Left IJ HD tunneled cath placed 02/08/18 by IR Labs on day of discharge: Labs from last 24 hours 04/16/18 04/16/18 08:25 08:25 WBC 8.1 RBC 4.68 Hgb 12.7 L Hct 39.6 MCV 84.6 MCH 27.0 MCHC 32.0 RDW 16.4 Plt Count 222 MPV 7.7 Neut % (Auto) 73.7 H Lymph % (Auto) 14.5 [place] % (Auto) 7.2 Eos % (Auto) 3.6 Baso % (Auto) 1.0 Neut # (Auto) 6.0 Lymph # (Auto) 1.2 [place] # (Auto) 0.6 Eos # (Auto) 0.3 Baso # (Auto) 0.1 WBC Differential . Differential Comment Auto diff final Sodium 137 Potassium 3.5 Chloride 99 Carbon Dioxide 29.6 Anion Gap 8 BUN 27 H Creatinine 4.57 H Estimated GFR 13 L Random Glucose 118 H Calcium 8.8 Phosphorus 4.3 Albumin 3.0 L Impressions ITS Impressions Cervical Spine CT 01/14/18 21:58 CONCLUSION: 1. No acute fracture or malalignment. 2. Subcutaneous emphysema again noted as well as the known right pneumothorax. Head CT 01/14/18 21:58 CONCLUSION: 1. No acute hemorrhage or mass effect. 2. Stable area of encephalomalacia in the right lateral lobe. . Chest CT 01/16/18 00:00 . CONCLUSION: 1. Dense consolidation in both lung bases small bore chest tubes evident. 2. Trace pneumothorax on the left 3. No significant fluid. Cervical Spine MRI 01/27/18 00:00 CONCLUSION: 1. No fracture or subluxation seen of the cervical spine but there is edema in the erector spinae muscles, especially on the right at the level of the upper cervical spine. This is nonspecific but presumably related to an acute or subacute strain. Localized early denervation would be conceivable but I don't see any atrophy. 2. There is an age-indeterminate left foraminal disc protrusion at C3/C4 that is probably impinging on the transiting left C4 nerve root. 3. Multilevel degenerative changes that otherwise appear chronic, as described. Associated high-grade foraminal stenosis on the right at C4/C5, bilateral at C5/C6 and C6/C7. No high-grade spinal stenosis demonstrated. Head MRI 01/27/18 00:00 CONCLUSION: 1. Remote right posterior parietal mid convexity infarct. 2. Mild cerebral atrophy with mild periventricular ischemic white matter demyelination. 3. Stable paranasal sinus mucosal disease and mastoiditis. 4. No acute abnormality. Specifically, no acute infarction or hemorrhage. Carotid Doppler Study 01/28/18 00:00 CONCLUSION: 1. Right Internal Carotid Artery: No significant stenosis or atherosclerotic plaque is visualized. 2. Left Internal Carotid Artery: No significant stenosis or atherosclerotic plaque is visualized. Venous Doppler Study 02/05/18 00:00 CONCLUSION: No venous thrombosis is identified within the left upper extremity. Catheter Placement 02/08/18 00:00 CONCLUSION: 1. Uncomplicated line placement as above. Tube Removal 02/08/18 00:00 CONCLUSION: 1. Uncomplicated catheter removal. Chest X-Ray 03/01/18 00:00 CONCLUSION: No significant change mild bibasilar atelectasis. Renal Biopsy CT 03/07/18 00:00 CONCLUSION: 1. Uncomplicated CT guided biopsy. Abdomen/Pelvis CT 03/11/18 00:00 CONCLUSION: Suspect partial left ureteral obstruction related to collecting system hemorrhage. See above discussion. Abdomen X-Ray 03/18/18 00:00 A large amount of stool is noted throughout the colon, greatest in the rectosigmoid. No dilated loops of bowel are seen. Osseous structures are intact. CONCLUSION: Large amount of stool consistent with the clinical history of constipation. Abdomen/Bladder Ultrasound 03/21/18 00:00 CONCLUSION: Negative renal sonogram. Knee X-Ray 04/11/18 00:00 CONCLUSION: No evidence of recent bony injury. Knee CT 04/13/18 00:00 CONCLUSION: 1. No acute fracture is identified. Discharge Plan Discharge Disposition Patient Disposition: Discharge Home Discharge Condition Condition: Good Discharge Order Discharge Orders: Discharge Order (Routine); Ordered 04/16/18 Ordered By: Abilio Bradley Discharge Details Anticipated Discharge Date: 04/16/18 Physicians Team Primary Care Provider: UNKNOWN, Attending Provider: Abiloi Bradley Other Providers: Adriano Gomez ; Pako Fournier ; Sakina Murray ; Kd Rudd ; Zac Jo ; Dina Rob ; Jordon Bhat ; Dionisio Arias ; Kosta Barraza ; Kvng [place] Rxs /Orders / Referrals /Forms Prescriptions: New quetiapine 25 mg Tablet 100 mg PO HS Qty: 30 RF: 11 carvedilol [Coreg] 6.25 mg Tablet 6.25 mg PO BID Qty: 60 RF: 11 levetiracetam [Keppra] 500 mg Tablet 500 mg PO BID Qty: 60 RF: 11 amlodipine [Norvasc] 10 mg Tablet 10 mg PO DAILY Qty: 30 RF: 11 aspirin 81 mg Tablet,Chewable 81 mg PO DAILY Qty: 90 RF: 0 isosorbide mononitrate 30 mg tablet extended release 24 hr 30 mg PO DAILY Qty: 30 RF: 11 Continue atorvastatin 20 mg Tablet 20 mg PO DAILY Qty: 30 RF: 11 levothyroxine 88 mcg Tablet 88 mcg PO DAILY Qty: 30 RF: 11 pantoprazole [Protonix] 40 mg Tablet,Delayed Release (Dr/Ec) 40 mg PO DAILY Qty: 30 RF: 11 Discontinued quetiapine [Seroquel] 25 mg Tablet 50 mg PO HS Qty: 60 RF: 0 valsartan 80 mg Tablet 80 mg PO DAILY Qty: 30 RF: 0 glimepiride 2 mg Tablet 2 mg PO BID Qty: 60 RF: 0 gabapentin 300 mg Capsule 300 mg PO BID Qty: 60 RF: 0 sertraline 50 mg Tablet 50 mg PO DAILY Qty: 30 RF: 0 Ambulatory Orders / Order Sets / DME: Walker With Front Wheels (1 each) (Routine) Location: Determined by Patient Ordered By: Abilio Bradley Referrals: UNKNOWN, [Primary Care Provider] - See Instructions Discharge Instructions Patient Printed Instructions: Amlodipine (By mouth), Carvedilol (By mouth), Quetiapine (By mouth), Levetiracetam (By mouth) Status ED Status: Left Department
[2018-04-16] MEDS: Acetaminophen 325 MG Tablet PO PRN (20:33)
[2018-04-16] MEDS: QUEtiapine 25 MG Tablet PO SCH (20:34)
[2018-04-17 05:40] VITALS: RESP 20
[2018-04-17] MEDS: Levothyroxine 88 MCG Tablet PO SCH (06:10)
[2018-04-17 08:22] VITALS: BP 110/67; PULSE 89; TEMP 97.1; O2SAT 92
[2018-04-17] MEDS: Carvedilol 6.25 MG Tablet PO SCH (09:15)
[2018-04-17] MEDS: amLODIPine 10 MG Tablet PO SCH (09:16)
[2018-04-17] MEDS: levETIRAcetam 500 MG Tablet PO SCH (09:16)
[2018-04-17] MEDS: Senna/Docusate Sodium 8.6/50 MG Tablet PO SCH (09:16)
[2018-04-17] MEDS: Folic Acid 1 MG Tablet PO SCH (09:16)
--- NOTE | 2018-04-17 15:34 | P.PNNP ---
Subjective Interval history: Seen in AM, hemodialysis has been going well. No complaints. <Smiley Barth - Last Filed: 04/17/18 15:30> Physical Exam Vital signs: Vital Signs 04/16/18 16:00 04/16/18 20:00 04/16/18 20:25 Temperature 98.2 F 100.2 F H Pulse Rate 103 H 91 H 82 Respiratory Rate 20 17 Blood Pressure 102/62 119/80 Pulse Oximetry 96 97 04/17/18 00:20 04/17/18 04:55 04/17/18 08:00 Temperature 98.1 F 97.6 F 97.1 F L Pulse Rate 91 H 79 89 Respiratory Rate 19 20 20 Blood Pressure 102/63 122/72 110/67 Pulse Oximetry 93 L 94 L 92 L Intake & Output 04/16/18 04/17/18 04/17/18 18:59 06:59 18:59 Intake Total 600 / 600 Output Total 2000 / 1999 250 / 250 250 / 250 Balance -1400 / -1400 -250 / -250 -250 / -250 Weight 92.9 kg Intake: Oral 600 / 600 Output: Urine 500 / 500 250 / 250 Hemodialysis Amount 1500 / 1500 Urine Amount (Catheter) 250 / 250 Straight 250 / 250 Other: Date of Last Bowel Movement 04/15/18 Narrative: GENERAL: oriented x 3, speech clear, in NAD. Right anterior chest with dialysis catheter, no surrounding erythema. Normocephalic. Atraumatic. Mucous membranes pink and moist. CARDIOVASCULAR: Regular rate and rhythm. RESPIRATORY: no rales, no wheezes GASTROINTESTINAL: Abdomen soft, non-tender, nondistended. Normoactive bowel sounds x4. MUSCULOSKELETAL: No obvious deformities. Extremities without clubbing, cyanosis , or edema. NEUROLOGICAL: Awake and alert. No obvious cranial nerve deficits. Moving all extremities spontaneously. Normal speech. - Urinary Catheter Management Indwelling Temp Sensing Catheter Cath placed during this visit: yes, but has since been removed by the nurse Reason for continuing: Decision to DC catheter Insertion date: 01/14/18 Insertion time: 22:00 Removal date: 01/21/18 Removal time: 18:00 Straight Cath placed during this visit: yes, but has since been removed by the nurse Reason for continuing: Acute urinary retention Insertion date: 03/16/18 Insertion time: 00:50 Removal date: 03/01/18 Removal time: 23:30 <Smiley Barth - Last Filed: 04/17/18 15:30> Vital signs: Vital Signs 04/17/18 00:20 04/17/18 04:55 04/17/18 08:00 Temperature 98.1 F 97.6 F 97.1 F L Pulse Rate 91 H 79 89 Respiratory Rate 19 20 20 Blood Pressure 102/63 122/72 110/67 Pulse Oximetry 93 L 94 L 92 L Intake & Output 04/17/18 04/17/18 04/18/18 06:59 18:59 06:59 Output Total 250 / 250 250 / 250 Balance -250 / -250 -250 / -250 Weight 92.9 kg Output: Urine 250 / 250 Urine Amount (Catheter) 250 / 250 Straight 250 / 250 Other: Date of Last Bowel Movement 04/15/18 - Urinary Catheter Management Indwelling Temp Sensing Catheter Cath placed during this visit: no Straight Cath placed during this visit: no <Brianna Blevins - Last Filed: 04/17/18 20:37> Assessment and Plan - Assessment (1) Acute renal failure Code(s): N17.9 - Acute kidney failure, unspecified Status: Acute Plan: Patient discharged home today Will continue with transitional HD on arranged per case management. Will continue to monitor labs, UOP, and watch for renal recovery. (2) Anemia Code(s): D64.9 - Anemia, unspecified Status: Acute Qualifiers: Anemia type: due to chronic kidney disease Plan: Epogen with dialysis. HGB stable (3) Hypertension Code(s): I10 - Essential (primary) hypertension Status: Acute Plan: Well controlled, will monitor. (4) Diabetes Code(s): E11.9 - Type 2 diabetes mellitus without complications Status: Acute Plan: Maintain blood sugars between 140 mg /dl to 180 mg/dl while hospitalized. Well controlled. <Smiley Barth - Last Filed: 04/17/18 15:30> - Assessment (1) Acute renal failure Code(s): N17.9 - Acute kidney failure, unspecified Status: Acute Plan: Patient seen and examined, agree with above. Patient for discharge, with continue HD at [facility] as out patient. (2) Anemia Code(s): D64.9 - Anemia, unspecified Status: Acute Qualifiers: Anemia type: due to chronic kidney disease (3) Hypertension Code(s): I10 - Essential (primary) hypertension Status: Acute (4) Diabetes Code(s): E11.9 - Type 2 diabetes mellitus without complications Status: Acute <Brianna Blevins - Last Filed: 04/17/18 20:37>
== END 2018-04-17 11:57 | disposition home or self-care (01) | DRG 870 ==
LOC: NEPE 21:29 → NEDA 22:54 → HIMC 01-15 00:25 → H7ONC 01-31 16:45 → N05 02-01 15:40
PROVIDERS: ADMIT Hospitalist; ATTEND Hospitalist
DX: F10.239 Alcohol dependence with withdrawal, unspecified; D50.9 Iron deficiency anemia, unspecified; A41.9 Sepsis, unspecified organism; R13.10 Dysphagia, unspecified; K21.9 Gastro-esophageal reflux disease without esophagitis; E83.51 Hypocalcemia; D63.1 Anemia in chronic kidney disease; E83.39 Other disorders of phosphorus metabolism; Z23 Encounter for immunization; G93.1 Anoxic brain damage, not elsewhere classified; R47.02 Dysphasia; E11.65 Type 2 diabetes mellitus with hyperglycemia; K66.8 Other specified disorders of peritoneum; Z51.5 Encounter for palliative care; E78.5 Hyperlipidemia, unspecified; Z88.0 Allergy status to penicillin; F31.9 Bipolar disorder, unspecified; R31.0 Gross hematuria; Z87.891 Personal history of nicotine dependence; E11.649 Type 2 diabetes mellitus with hypoglycemia without coma; K59.00 Constipation, unspecified; R65.21 Severe sepsis with septic shock; T79.7XXA Traumatic subcutaneous emphysema, initial encounter; Z99.2 Dependence on renal dialysis; R63.3 Feeding difficulties; I12.0 Hypertensive chronic kidney disease with stage 5 chronic kidney disease or end stage renal disease; M62.82 Rhabdomyolysis; M25.561 Pain in right knee; F10.231 Alcohol dependence with withdrawal delirium; E11.3519 Type 2 diabetes mellitus with proliferative diabetic retinopathy with macular edema, unspecified eye; Z80.51 Family history of malignant neoplasm of kidney; R57.0 Cardiogenic shock; N17.0 Acute kidney failure with tubular necrosis; G40.89 Other seizures; Z81.8 Family history of other mental and behavioral disorders; N13.6 Pyonephrosis; T88.4XXA Failed or difficult intubation, initial encounter; R00.1 Bradycardia, unspecified; G47.30 Sleep apnea, unspecified; Z91.5 Personal history of self-harm; E87.6 Hypokalemia; I21.4 Non-ST elevation (NSTEMI) myocardial infarction; J96.01 Acute respiratory failure with hypoxia; E87.70 Fluid overload, unspecified; J93.0 Spontaneous tension pneumothorax; E87.2 Acidosis; D68.61 Antiphospholipid syndrome; Z99.11 Dependence on respirator [ventilator] status; E86.0 Dehydration; D69.6 Thrombocytopenia, unspecified; N18.6 End stage renal disease; Z82.49 Family history of ischemic heart disease and other diseases of the circulatory system; K70.30 Alcoholic cirrhosis of liver without ascites; Z88.1 Allergy status to other antibiotic agents; F03.90 Unspecified dementia, unspecified severity, without behavioral disturbance, psychotic disturbance, mood disturbance, and anxiety; E03.9 Hypothyroidism, unspecified; L89.102 Pressure ulcer of unspecified part of back, stage 2; Z66 Do not resuscitate; Z91.81 History of falling; I69.354 Hemiplegia and hemiparesis following cerebral infarction affecting left non-dominant side; F43.22 Adjustment disorder with anxiety; Z79.899 Other long term (current) drug therapy; Z79.890 Hormone replacement therapy; E11.22 Type 2 diabetes mellitus with diabetic chronic kidney disease; G93.89 Other specified disorders of brain
CPT/HCPCS: 31500; 32020; 32551; 36430; 36558; 36600; 50200; 51798; 70450; 70551; 71010; 71045; 71250; 72125; 72141; 73564; 73700; 74000; 74018; 74176; 75998; 76360; 76775; 76937; 77001; 77012; 80048; 80053; 80061; 80069; 80074; 80076; 80202; 80307; 81001; 82140; 82247; 82248; 82272; 82550; 82552; 82570; 82607; 82728; 82805; 82948; 82962; 83010; 83036; 83540; 83550; 83605; 83615; 83735; 83970; 84100; 84132; 84165; 84300; 84425; 84439; 84443; 84484; 85014; 85018; 85025; 85027; 85049; 85384; 85590; 85610; 85730; 86021; 86038; 86160; 86403; 86850; 86900; 86901; 86923; 86927; 87040; 87077; 87086; 87186; 87205; 87493; 87641; 90471; 90658; 90686; 90765; 90774; 90775; 90780; 90784; 90935; 92526; 92610; 92950; 93005; 93225; 93306; 93880; 93971; 94002; 94003; 94150; 94640; 94656; 94657; 94664; 94665; 94799; 95819; 96365; 96374; 96375; 97110; 97116; 97127; 97162; 97167; 97168; 97530; 97532; 97535; 99145; 99152; 99153; 99291; C1014; C1750; C1769; C8950; C8952; C9113; C9238; C9503; G0008; G0195; G0515; J0171; J0330; J0360; J0692; J0886; J1170; J1205; J1325; J1450; J1580; J1644; J1815; J1940; J1953; J2060; J2250; J2270; J2405; J2543; J2597; J2704; J2920; J2930; J3010; J3370; J3411; J3480; J7030; J7040; J7042; J7050; J7060; J7120; J7506; J7512; P9016; P9017; P9035; P9045; P9047; Q2038; Q4055; Q4081; Q9963

== ENCOUNTER 2018-04-29 12:30 | Observation (INO) ==
--- NOTE | 2018-04-29 13:33 | ED ---
HPI General Chief complaint: Diabetic Stated complaint: blood sugar complaint Time Seen by Provider: 04/29/18 12:46 Source: patient and EMS Mode of arrival: EMS Limitations: no limitations History of Present Illness HPI narrative: 62 year old male who presents to the ED for evaluation of a fall. Patient states that he started feeling dizzy and light headed this morning and fell, striking the back of his head against the wall and then falling onto his knees. He is unsure whether he lost consciousness. Patient states that he has been drinking alcohol today and did not eat breakfast. EVAC reports that when they arrived his blood sugar was in the 30s but that he was alert enough to eat and take oral glucose. He was also given 25mg of dextrose. His follow up blood sugar was in the 200s and the patient is more alert. Patient reports a 3/10 headache/neck ache with associated nausea. He denies shortness of breath, chest pain, weakness, numbness or tingling. 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 Of note patient is not a great historian. Related Data Home Medications Medication Instructions Recorded Confirmed atorvastatin 20 mg PO QPM 04/29/18 04/29/18 Previous Rx's Medication Instructions Recorded amlodipine [Norvasc] 10 mg PO DAILY #30 tab 04/16/18 aspirin 81 mg PO DAILY #90 tab 04/16/18 carvedilol [Coreg] 6.25 mg PO BID #60 tab 04/16/18 isosorbide mononitrate 30 mg PO DAILY #30 tab 04/16/18 levetiracetam [Keppra] 500 mg PO BID #60 tab 04/16/18 levothyroxine 88 mcg PO DAILY #30 tab 04/16/18 pantoprazole [Protonix] 40 mg PO DAILY #30 tab 04/16/18 quetiapine 100 mg PO HS #30 tab 04/16/18 Allergies Allergy/AdvReac Type Severity Reaction Status Date / Time erythromycin base Allergy Severe Hives Verified 01/14/18 03:00 penicillin G Allergy Severe Hives Verified 01/14/18 03:00 Review of Systems ROS: all other systems reviewed are negative PMFSH History History Provided By: Patient and Ben Day Artist / EMT Medical History Medical History Anxiety (Acute) CVA (cerebral vascular accident) (Acute) Diabetes (Acute) ETOH abuse (Acute) Hypertension (Acute) No significant past surgical history (Acute) Renal failure (Acute) Vascular dialysis catheter in place (Acute) Family History Family History Mother Kidney carcinoma Father CAD (coronary artery disease) Social History Social History Substance History: Active Abuse Second Hand Smoke Exposure: No Smoking Status: Current every day smoker Tobacco Type: Cigarettes How Often Do You Have a Drink Containing Alcohol: 2 to 3 times a week Recent Travel in [facility] within the Last 8 Weeks: No Exam Narrative Exam Narrative: GENERAL: Well-appearing in no distress. SKIN: Focused skin assessment warm/dry. HEAD: Atraumatic. Normocephalic. EYES: Pupils equal and round 4 mm reactive to light and accommodation.. No scleral icterus. No injection or drainage. ENT: No nasal bleeding or discharge. Mucous membranes pink and moist. Tongue is midline. No uvula deviation. NECK: Trachea midline. No JVD. CARDIOVASCULAR: Regular rate and rhythm. No murmur appreciated. RESPIRATORY: No accessory muscle use. Clear to auscultation. Breath sounds equal bilaterally. GASTROINTESTINAL: Abdomen soft, non-tender, nondistended. Hepatic and splenic margins not palpable. MUSCULOSKELETAL: No obvious deformities. No clubbing. No cyanosis. No edema. Full range of motion of the upper and lower extremities bilaterally. 2+ pulses bilaterally. NEUROLOGICAL: Awake and alert. No obvious cranial nerve deficits. Motor grossly within normal limits. Normal speech. PSYCHIATRIC: Appropriate mood and affect; insight and judgment normal. Course Initial Documented Vital Signs Temperature 98.4 F 04/29/18 12:47 Pulse Rate 81 04/29/18 12:47 Respiratory Rate 18 04/29/18 12:47 Blood Pressure 116/72 04/29/18 12:47 Pulse Oximetry 98 04/29/18 12:47 Last Documented Vital Signs Temperature 98.4 F 04/29/18 12:47 Pulse Rate 88 04/29/18 13:45 Respiratory Rate 21 04/29/18 13:45 Blood Pressure 120/76 04/29/18 13:45 Pulse Oximetry 97 04/29/18 13:45 Medical Decision Making MDM Narrative Medical decision making narrative: 62-year-old male who presents to the ED for evaluation of syncope. Patient was properly examined and was found to have signs and symptoms consistent with appears to be hypoglycemia and likely alcohol use. Labs and imaging ordered. Labs and imaging showed no sign of acute disease. Acute on chronic kidney disease which is stable for him. Otherwise imaging and labs were essentially unremarkable. Patient had his blood sugar rechecked here with no sign of decline. Orthostatics as well as walking test showed the patient is orthostatic hypotension. Overall he was able to ablate but he is blood pressure went from 130s to 90 while standing. Blood sugar has been normal here. Case was discussed with my attending who recommends admission for possible syncope and orthostatic hypotension. RON was paged. Dr paz agrees to admission. Medical Screen Exam Complete: Yes Emergency Medical Condition: Yes Differential Diagnosis Differential Diagnosis: Syncope versus alcohol abuse versus drug use versus hypoglycemia versus ACS Medical Records Medical records reviewed: Yes I reviewed the patient's medical records. Lab Data Lab results reviewed: Yes I reviewed the patient's lab results. Result diagrams: 04/29/18 14:10 04/29/18 14:10 Lab Results 04/29/18 04/29/18 04/29/18 Range/Units 14:10 14:10 14:10 WBC 14.2 H (4.0-11.0) th/mm3 RBC 5.17 (4.50-5.90) mil/mm3 Hgb 14.2 (13.0-17.0) gm/dL Hct 42.2 (39.0-51.0) % MCV 81.7 (80.0-100.0) fL MCH 27.5 (27.0-34.0) pg MCHC 33.7 (32.0-36.0) % RDW 16.4 (11.6-17.2) % Plt Count 293 (150-450) th/mm3 MPV 8.0 (7.0-11.0) fL Neut % (Auto) 92.5 H (16.0-70.0) % Lymph % (Auto) 3.9 L (9.0-44.0) % [place] % (Auto) 3.0 (0.0-8.0) % Eos % (Auto) 0.1 (0.0-4.0) % Baso % (Auto) 0.5 (0.0-2.0) % Neut # (Auto) 13.1 H (1.8-7.7) th/mm3 Lymph # (Auto) 0.6 L (1.0-4.8) th/mm3 [place] # (Auto) 0.4 (0.0-0.9) th/mm3 Eos # (Auto) 0.0 (0.0-0.4) th/mm3 Baso # (Auto) 0.1 (0.0-0.2) th/mm3 WBC Differential . Differential Comment Auto diff final Sodium 131 L (136-145) meq/L Potassium 4.7 (3.5-5.1) meq/L Chloride 94 L (98-107) meq/L Carbon Dioxide 25.7 (21.0-32.0) meq/L Anion Gap 11 (5-15) meq/L BUN 36 H (7-18) mg/dL Creatinine 4.82 H (0.60-1.30) mg/dL Estimated GFR 12 L (>89) mL/min POC Glucose (68-110) mg/dl Random Glucose 154 H (74-106) mg/dL Calcium 8.9 (8.5-10.1) mg/dL Magnesium 2.0 (1.5-2.5) mg/dL Total Bilirubin 1.0 (0.2-1.0) mg/dL AST 16 (15-37) U/L ALT 15 (12-78) U/L Alkaline Phosphatase 99 (45-117) U/L Total Creatine Kinase 50 Cancelled (39-308) U/L Troponin I Less than 0.02 L (0.02-0.05) ng/mL Total Protein 7.8 (6.4-8.2) g/dL Albumin 3.6 (3.4-5.0) g/dL Urine Color (Yellw/Straw) Urine Clarity (Clear) Urine pH (5.0-8.5) Ur Specific [place] (1.002-1.035) Urine Protein (Neg-Trace) mg/dL Urine Glucose (UA) (Negative) mg/dL Urine Ketones (Negative) mg/dL Urine Occult Blood (Negative) Urine Nitrate (Negative) Urine Bilirubin (Negative) Urine Urobilinogen (Less than 2) mg/dL Ur Leukocyte Esterase (Negative) Urine RBC (0-3) /hpf Urine WBC (0-5) /hpf Ur Squamous Epith Cells (0-5) /hpf Urine Bacteria (None) /hpf Hyaline Casts (0-3) /lpf Granular Casts (None) /lpf Urine Mucus (Occasional) /lpf Micro UA Comment Ur Microscopic Review Urine Culture Comments Urine Opiates Screen (Neg) Ur Barbiturates Screen (Neg) Ur Amphetamines Screen (Neg) U Benzodiazepines Scrn (Neg) Urine Cocaine Screen (Neg) U Cannabinoids Screen (Neg) Serum Alcohol Less than 3 (0-5) mg/dL 04/29/18 04/29/18 04/29/18 Range/Units 14:10 14:10 14:19 WBC (4.0-11.0) th/mm3 RBC (4.50-5.90) mil/mm3 Hgb (13.0-17.0) gm/dL Hct (39.0-51.0) % MCV (80.0-100.0) fL MCH (27.0-34.0) pg MCHC (32.0-36.0) % RDW (11.6-17.2) % Plt Count (150-450) th/mm3 MPV (7.0-11.0) fL Neut % (Auto) (16.0-70.0) % Lymph % (Auto) (9.0-44.0) % [place] % (Auto) (0.0-8.0) % Eos % (Auto) (0.0-4.0) % Baso % (Auto) (0.0-2.0) % Neut # (Auto) (1.8-7.7) th/mm3 Lymph # (Auto) (1.0-4.8) th/mm3 [place] # (Auto) (0.0-0.9) th/mm3 Eos # (Auto) (0.0-0.4) th/mm3 Baso # (Auto) (0.0-0.2) th/mm3 WBC Differential Differential Comment Sodium (136-145) meq/L Potassium (3.5-5.1) meq/L Chloride (98-107) meq/L Carbon Dioxide (21.0-32.0) meq/L Anion Gap (5-15) meq/L BUN (7-18) mg/dL Creatinine (0.60-1.30) mg/dL Estimated GFR (>89) mL/min POC Glucose 144 H (68-110) mg/dl Random Glucose Cancelled (74-106) mg/dL Calcium (8.5-10.1) mg/dL Magnesium (1.5-2.5) mg/dL Total Bilirubin (0.2-1.0) mg/dL AST (15-37) U/L ALT (12-78) U/L Alkaline Phosphatase (45-117) U/L Total Creatine Kinase (39-308) U/L Troponin I (0.02-0.05) ng/mL Total Protein (6.4-8.2) g/dL Albumin (3.4-5.0) g/dL Urine Color (Yellw/Straw) Urine Clarity (Clear) Urine pH (5.0-8.5) Ur Specific [place] (1.002-1.035) Urine Protein (Neg-Trace) mg/dL Urine Glucose (UA) (Negative) mg/dL Urine Ketones (Negative) mg/dL Urine Occult Blood (Negative) Urine Nitrate (Negative) Urine Bilirubin (Negative) Urine Urobilinogen (Less than 2) mg/dL Ur Leukocyte Esterase (Negative) Urine RBC (0-3) /hpf Urine WBC (0-5) /hpf Ur Squamous Epith Cells (0-5) /hpf Urine Bacteria (None) /hpf Hyaline Casts (0-3) /lpf Granular Casts (None) /lpf Urine Mucus (Occasional) /lpf Micro UA Comment Ur Microscopic Review Urine Culture Comments Urine Opiates Screen (Neg) Ur Barbiturates Screen (Neg) Ur Amphetamines Screen (Neg) U Benzodiazepines Scrn (Neg) Urine Cocaine Screen (Neg) U Cannabinoids Screen (Neg) Serum Alcohol Cancelled (0-5) mg/dL 04/29/18 04/29/18 Range/Units 14:20 14:20 WBC (4.0-11.0) th/mm3 RBC (4.50-5.90) mil/mm3 Hgb (13.0-17.0) gm/dL Hct (39.0-51.0) % MCV (80.0-100.0) fL MCH (27.0-34.0) pg MCHC (32.0-36.0) % RDW (11.6-17.2) % Plt Count (150-450) th/mm3 MPV (7.0-11.0) fL Neut % (Auto) (16.0-70.0) % Lymph % (Auto) (9.0-44.0) % [place] % (Auto) (0.0-8.0) % Eos % (Auto) (0.0-4.0) % Baso % (Auto) (0.0-2.0) % Neut # (Auto) (1.8-7.7) th/mm3 Lymph # (Auto) (1.0-4.8) th/mm3 [place] # (Auto) (0.0-0.9) th/mm3 Eos # (Auto) (0.0-0.4) th/mm3 Baso # (Auto) (0.0-0.2) th/mm3 WBC Differential Differential Comment Sodium (136-145) meq/L Potassium (3.5-5.1) meq/L Chloride (98-107) meq/L Carbon Dioxide (21.0-32.0) meq/L Anion Gap (5-15) meq/L BUN (7-18) mg/dL Creatinine (0.60-1.30) mg/dL Estimated GFR (>89) mL/min POC Glucose (68-110) mg/dl Random Glucose (74-106) mg/dL Calcium (8.5-10.1) mg/dL Magnesium (1.5-2.5) mg/dL Total Bilirubin (0.2-1.0) mg/dL AST (15-37) U/L ALT (12-78) U/L Alkaline Phosphatase (45-117) U/L Total Creatine Kinase (39-308) U/L Troponin I (0.02-0.05) ng/mL Total Protein (6.4-8.2) g/dL Albumin (3.4-5.0) g/dL Urine Color Yellow (Yellw/Straw) Urine Clarity Cloudy H (Clear) Urine pH 5.0 (5.0-8.5) Ur Specific [place] 1.013 (1.002-1.035) Urine Protein 30 H (Neg-Trace) mg/dL Urine Glucose (UA) Negative (Negative) mg/dL Urine Ketones Negative (Negative) mg/dL Urine Occult Blood Negative (Negative) Urine Nitrate Negative (Negative) Urine Bilirubin Negative (Negative) Urine Urobilinogen Less than 2 (Less than 2) mg/dL Ur Leukocyte Esterase Large H (Negative) Urine RBC 6 H (0-3) /hpf Urine WBC 60 H (0-5) /hpf Ur Squamous Epith Cells 1 (0-5) /hpf Urine Bacteria Occasional H (None) /hpf Hyaline Casts 9 (0-3) /lpf Granular Casts 1 (None) /lpf Urine Mucus Few H (Occasional) /lpf Micro UA Comment Culture indicated Ur Microscopic Review Not Reportable Urine Culture Comments Culture indicated Urine Opiates Screen Neg (Neg) Ur Barbiturates Screen Neg (Neg) Ur Amphetamines Screen Neg (Neg) U Benzodiazepines Scrn Neg (Neg) Urine Cocaine Screen Neg (Neg) U Cannabinoids Screen Neg (Neg) Serum Alcohol (0-5) mg/dL Imaging Data Attestation: I personally reviewed and interpreted this imaging study as follows : Radiologist's impression: Cervical Spine CT 04/29/18 13:02 CONCLUSION: 1. Stable moderate diffuse primary degenerative changes, disc degeneration and disc space narrowing involving the mid to lower cervical spine. 2. No significant change compared to the prior exam. Head CT 04/29/18 13:02 CONCLUSION: 1. Stable noncontrast axial head CT . . Chest X-Ray 04/29/18 14:47 CONCLUSION: No acute intrathoracic disease. Stable examination. ECG Data Attestation: I personally reviewed and interpreted this ECG as follows: Interpretation: EKG shows sinus rhythm with no sign of acute ischemia or arrhythmia. Read by me and attending. Ventricular rate of 71 beats per minute , VA interval of 189 ms Discharge Plan Discharge Disposition Patient Disposition: ED Admit(ED Internal Use Only) Discharge Order Discharge Orders: ED Use Only Admit Order (Routine); Ordered 04/29/18 Ordered By: Jose Cleveland Discharge Details Diagnosis: Syncope, Orthostatic hypotension Physicians Team ED Provider: Chavez Guevara ED Midlevel Provider: Jose Cleveland Primary Care Provider: Primary Care Arielle Mendez Attending Provider: Luis Carlos Paz Discharge Interventions Interventions: Vital Signs Last Done: 04/29/18 13:45 Status ED Status: Admitted Observation Patient
[2018-04-29 14:22] LABS: Baso # (Auto) 0.1 th/mm3 (0.0-0.2); Baso % (Auto) 0.5 % (0.0-2.0); Eos % (Auto) 0.1 % (0.0-4.0); Hematocrit 42.2 % (39.0-51.0); Hemoglobin 14.2 gm/dL (13.0-17.0); Lymph # (Auto) 0.6 th/mm3 (1.0-4.8); Lymph % (Auto) 3.9 % (9.0-44.0); Mean Corpuscular HGB Conc 33.7 % (32.0-36.0); Mean Corpuscular Hemoglobin 27.5 pg (27.0-34.0); Mean Corpuscular Volume 81.7 fL (80.0-100.0); Mono # (Auto) 0.4 th/mm3 (0.0-0.9); Neut # (Auto) 13.1 th/mm3 (1.8-7.7); Neut % (Auto) 92.5 % (16.0-70.0); Platelet Count 293 th/mm3 (150-450); Red Blood Count 5.17 mil/mm3 (4.50-5.90); Red Cell Distribution Width 16.4 % (11.6-17.2); White Blood Count 14.2 th/mm3 (4.0-11.0)
[2018-04-29 14:40] LABS: Alanine Aminotransferase 15 U/L (12-78); Albumin 3.6 g/dL (3.4-5.0); Anion Gap 11 meq/L (5-15); Aspartate Aminotransferase 16 U/L (15-37); Blood Urea Nitrogen 36 mg/dL (7-18); Calcium 8.9 mg/dL (8.5-10.1); Carbon Dioxide 25.7 meq/L (21.0-32.0); Chloride 94 meq/L (98-107); Glomerular Filtration Rate 12 mL/min (>89); Glucose,Random 154 mg/dL (74-106); Potassium 4.7 meq/L (3.5-5.1); Sodium 131 meq/L (136-145)
[2018-04-29 14:44] LABS: Alkaline Phosphatase 99 U/L (45-117); Total Protein 7.8 g/dL (6.4-8.2)
[2018-04-29 14:45] LABS: Creatine Kinase 50 U/L (39-308)
[2018-04-29 15:01] LABS: Bacteria,Urine Occasional /hpf; Bilirubin,Urine Negative (Negative); Clarity,Urine Cloudy (Clear); Color,Urine Yellow (Yellw/Straw); Glucose,Urine (UA) Negative (Negative); Hyaline Casts,Urine 9 /lpf (0-3); Leukocyte Esterase,Urine Large (Negative); Mucus,Urine Few /lpf (Occasional); Nitrite,Urine Negative (Negative); Specific Gravity,Urine 1.013 (1.002-1.035); Squamous Epithelial Cell,Urine 1 /hpf (0-5)
--- NOTE | 2018-04-29 15:08 | CT ---
EXAM DATE: 04/29/2018 2:52 PM EST AGE/SEX: 62 years / Male INDICATIONS: Altered mental status. CLINICAL DATA: This is the patient's initial encounter. Patient reports that signs and symptoms have been present for 1 day and indicates a pain score of 0/10. MEDICAL/SURGICAL HISTORY: Cerebrovascular disease. Hypertension. Renal failure, chronic. dialysi s , ETOH None. RADIATION DOSE: 66.34 CTDI (mGy) COMPARISON: [facility] [place] W/O [place]AST, 04/18/2018. . TECHNIQUE: CT of the head without contrast. Using automated exposure control and adjustment of the mA and/or kV according to patient size, radiation dose was kept as low as reasonably achievable to ob tain optimal diagnostic quality images. DICOM format image data is available electronically for revi ew and comparison. 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 There are no new findings Left hemisphere is unremarkable Ventricular size is appropriate There are no extra-axial fluid collections appreciated Posterior fossa appears normal with a midline fourth ventricle. CONCLUSION: 1. Stable noncontrast axial head CT . . Electronically signed by: Darinel Judd MD Board Certified Radiologist 04/29/2018 3:06 PM EST
[2018-04-29 15:10] LABS: Amphetamine Screen,Urine Neg (Neg); Barbiturate Screen,Urine Neg (Neg); Cannabinoid Screen,Urine Neg (Neg); Cocaine Screen,Urine Neg (Neg)
--- NOTE | 2018-04-29 15:16 | XR ---
EXAM DATE: 04/29/2018 3:09 PM EST AGE/SEX: 62 years / Male INDICATIONS: Cough. Patient fell today. CLINICAL DATA: This is the patient's initial encounter. Patient reports that signs and symptoms have been present for 1 day and indicates a pain score of 0/10. MEDICAL/SURGICAL HISTORY: . Diabetes. Hypertension. Renal failure, chronic. CVA. ETOH abuse. N one. COMPARISON: [facility] – [place], CHEST 1V SINGLE AP, 04/18/2018. . FINDINGS: A single AP view of the chest demonstrates the lungs to be symmetrically aerated without evidence of mass, infiltrate or effusion. The cardiomediastinal contours are stable. Osseous structures are int act and stable. There is a right-sided central line in place. There is no pneumothorax. No significan t change compared to the prior study. CONCLUSION: No acute intrathoracic disease. Stable examination. Electronically signed by: Win Campos MD Board Certified Radiologist 04/29/2018 3:15 PM EST
[2018-04-29 15:18] LABS: Opiate Screen,Urine Neg (Neg)
--- NOTE | 2018-04-29 15:42 | CT ---
EXAM DATE: 04/29/2018 2:55 PM EST AGE/SEX: 62 years / Male INDICATIONS: Patient weak, keeps falling. Complains of neck pain. CLINICAL DATA: This is the patient's initial encounter. Patient reports that signs and symptoms have been present for 1 day and indicates a pain score of 0/10. MEDICAL/SURGICAL HISTORY: Cerebrovascular disease. Hypertension. Renal failure, chronic. almaz lysis, ETOH None. RADIATION DOSE: 21.96 CTDI (mGy) COMPARISON: [facility] [place] CERVICAL SPINE W/O CONTRAST, 04/18/2018. . TECHNIQUE: Contiguous axial images were obtained using helical multirow detector technique. The vol umetric data was post-processed with multiplanar reconstruction in oblique axial, sagittal, and coron al planes. Using automated exposure control and adjustment of the mA and/or kV according to patient s ize, radiation dose was kept as low as reasonably achievable to obtain optimal diagnostic quality rommel ges. DICOM format image data is available electronically for review and comparison. FINDINGS: Vertebrae: There continues to be moderate diffuse primary bony degenerative changes, disc degenerati on and disc space narrowing at C4-5, C5-6 and C6-7. These findings are essentially stable compared to the prior examination. No acute bony fracture. Alignment: Normal. No subluxation. C2-3: The bony spinal canal is normal in size. No evidence of disc bulge or herniation. The neural foramina are bilaterally patent. C3-4: The bony spinal canal is normal in size. No evidence of disc bulge or herniation. The neural foramina are bilaterally patent. C4-5: Broad-based bulging with disc osteophyte complex. Narrowing of the neural foramina bilaterally . No significant change. C5-6: Broad-based bulging with disc osteophyte complex. Narrowing of the neural foramina bilaterally . No significant change. C6-7: Mild broad-based bulging with disc osteophyte complex. There is narrowing of the left neural f oramina. The right neural foramina is mildly narrowed.. C7-T1: The bony spinal canal is normal in size. No evidence of disc bulge or herniation. The neura l foramina are bilaterally patent. No significant change compared to the prior examination. CONCLUSION: 1. Stable moderate diffuse primary degenerative changes, disc degeneration and disc space narrowing involving the mid to lower cervical spine. 2. No significant change compared to the prior exam. Electronically signed by: Win Campos MD Board Certified Radiologist 04/29/2018 3:41 PM EST
[2018-04-29] MEDS ORDERED: Acetaminophen 325 MG Tablet PO PRN (18:46)
[2018-04-29] MEDS ORDERED: Bisacodyl 10 MG Supp RECTAL PRN (18:46)
--- NOTE | 2018-04-29 21:30 | P.HPIM ---
History of Present Illness Service: 62 y/o male with a history of CVA, CRF on hemodialysis, DM, HTN, depression and anxiety was brought in by EMS for AMS s/p fall at home. Patient was found to have to have a blood sugar in the 30s. Upon examination patient was only oriented to self. Could only answer simple questions. Denies any chest pain, sob, abdominal pain or dysuria. Patient was called a stroke alert by nursing but then found to have a sugar of 34. Dextrose given. Head CT in ER was negative. I discussed case with Dr. Iglesias who agrees it is sugar related and only to scan his head if he does not awaken after Dextrose. Patient became oriented x [address] Iglesias recommended MRI and carotid US. Patient is denying any chest pain, sob, fever or chills. Primary Care Physician: No Primary Care Physician Review of Systems ROS Unobtainable: unobtainable due to mental status PMFSH Medical History Medical History Hernia (Acute) Sleep apnea (Acute) Anxiety (Acute) CVA (cerebral vascular accident) (Acute) Diabetes (Acute) ETOH abuse (Acute) Hypertension (Acute) No significant past surgical history (Acute) Renal failure (Acute) Vascular dialysis catheter in place (Acute) Family History Family History Mother Kidney carcinoma Father CAD (coronary artery disease) Social History Social History Substance History: No History of Abuse Second Hand Smoke Exposure: No Smoking Status: Former smoker Tobacco Type: Cigarettes How Often Do You Have a Drink Containing Alcohol: 2 to 4 times a month Recent Travel in [facility] within the Last 8 Weeks: No Recent Out of Country Travel within the Last 8 Weeks: No Substance Abuse Detail Alcohol: Substance Use Status: Active Reason for Use: Calm Down Immunization History Tetanus Immunization: Unsure Medications and Allergies Allergies Allergy/AdvReac Type Severity Reaction Status Date / Time erythromycin base Allergy Severe Hives Verified 01/14/18 03:00 penicillin G Allergy Severe Hives Verified 01/14/18 03:00 Home Medications Medication Instructions Recorded Confirmed Type atorvastatin 20 mg PO QPM 04/29/18 04/29/18 History Active Medications: Active Medications Acetaminophen (Tylenol) 650 mg PO Q4H PRN PRN Reason: Temp > 100.4 Al Hydroxide/Mg Hydroxide (Milk Of Magnesia Liq) 30 ml PO Q12H PRN PRN Reason: Mild Constipation Bisacodyl (Dulcolax Supp) 10 mg RECTAL DAILY PRN PRN Reason: SEVERE CONSITIPATION Dextrose (D50w Vial) 50 ml IV.PUSH UNSCH PRN PRN Reason: PER HYPOGLYCEMIA PROTOCOL Lactulose (Lactulose Liq) 30 ml PO DAILY PRN PRN Reason: SEVERE CONSITIPATION Ondansetron HCl (Zofran Inj) 4 mg IV.PUSH Q6H PRN PRN Reason: NAUSEA OR VOMITING Senna/Docusate Sodium (Ayleen-Colace) 1 tab PO BID HENRY Sennosides (Senokot) 17.2 mg PO Q12H PRN PRN Reason: Moderate Constipation Sodium Chloride (Ns Flush) 2 ml IV.FLUSH BID HENRY Sodium Chloride (Ns Flush) 2 ml IV.FLUSH UNSCH PRN PRN Reason: FLUSH AFTER USING IV ACCESS Physical Exam Vital signs: Vital Signs 04/29/18 12:47 04/29/18 12:49 04/29/18 13:45 Temperature 98.4 F Pulse Rate 81 88 Respiratory Rate 18 21 Blood Pressure 116/72 120/76 Pulse Oximetry 98 98 97 04/29/18 17:55 04/29/18 20:00 Temperature 97.8 F Pulse Rate 79 76 Respiratory Rate 18 20 Blood Pressure 101/76 184/87 H Pulse Oximetry 97 Intake & Output 04/29/18 04/29/18 04/30/18 06:59 18:59 06:59 Weight 90 kg Other: Weight On Admission 90 kg Narrative: GENERAL: Patient appears back to baseline SKIN: Warm and dry. HEAD: Normocephalic. EYES: No scleral icterus. No injection or drainage. NECK: Supple, trachea midline. No JVD or lymphadenopathy. CARDIOVASCULAR: Regular rate and rhythm without murmurs, gallops, or rubs. RESPIRATORY: Breath sounds equal bilaterally. No accessory muscle use. GASTROINTESTINAL: Abdomen soft, non-tender, nondistended. MUSCULOSKELETAL: No cyanosis, or edema. Results Labs CBC & Chem 7: 04/29/18 14:10 04/29/18 14:10 Imaging Impressions Cervical Spine CT 04/29/18 13:02 CONCLUSION: 1. Stable moderate diffuse primary degenerative changes, disc degeneration and disc space narrowing involving the mid to lower cervical spine. 2. No significant change compared to the prior exam. Head CT 04/29/18 13:02 CONCLUSION: 1. Stable noncontrast axial head CT . . Chest X-Ray 04/29/18 14:47 CONCLUSION: No acute intrathoracic disease. Stable examination. Caprini VTE Risk Assessment Caprini VTE Risk Assessment: No/Low Risk (score <= 1) Caprini Risk Assessment Model: Point Value = 1 Point Value = 2 Point Value = 3 Point Value = 5 Age 41-60 Minor surgery BMI > 25 kg/m2 Swollen legs Varicose veins or History of unexplained or recurrent spontaneous Oral contraceptives or hormone replacement Sepsis (< 1 month) Serious lung disease, including pneumonia (< 1 month) Abnormal pulmonary function Acute myocardial infarction Congestive heart failure (< 1 month) History of inflammatory bowel disease Medical patient at bed rest Age 61-74 Arthroscopic surgery Major open surgery (> 45 min) Laparoscopic surgery (> 45 min) Malignancy Confined to bed (> 72 hours) Immobilizing plaster cast Central venous access Age >= 75 History of VTE Family history of VTE Factor V Leiden Prothrombin [id number] Lupus anticoagulant Anticardiolipin antibodies Elevated serum homocysteine Heparin-induced thrombocytopenia Other congenital or acquired thrombophilia Stroke (< 1 month) Elective arthroplasty Hip, pelvis, or leg fracture Acute spinal cord injury (< 1 month) Prophylaxis Regimen: Total Risk Factor Score Risk Level Prophylaxis Regimen 0-1 Low Early ambulation 2 Moderate Order ONE of the following: *Sequential Compression Device (SCD) *Heparin 5000 units SQ BID 3-4 Higher Order ONE of the following medications: *Heparin 5000 units SQ TID *Enoxaparin/Lovenox 40 mg SQ daily (WT < 150 kg, CrCl > 30 mL/min) *Enoxaparin/Lovenox 30 mg SQ daily (WT < 150 kg, CrCl > 10-29 mL/min) *Enoxaparin/Lovenox 30 mg SQ BID (WT < 150 kg, CrCl > 30 mL/min) AND/OR *Sequential Compression Device (SCD) 5 or more Highest Order ONE of the following medications: *Heparin 5000 units SQ TID (Preferred with Epidurals) *Enoxaparin/Lovenox 40 mg SQ daily (WT < 150 kg, CrCl > 30 mL/min) *Enoxaparin/Lovenox 30 mg SQ daily (WT < 150 kg, CrCl > 10-29 mL/min) *Enoxaparin/Lovenox 30 mg SQ BID (WT < 150 kg, CrCl > 30 mL/min) AND *Sequential Compression Device (SCD) Assessment and Plan Plan 62 y/o male with a history of ETOH Abuse, CVA, ESRD on hemodialysis, DM, HTN, depression and anxiety was brought in by EMS for AMS s/p fall at home. Hypoglycemia, related to poor nutrition and medication use -D51/2Ns started, gentle hydration due to kidney failure -Accu checks Q4 Hr -Renal Diet -Neuro checks Syncope, r/t hypoglycemia, history of CVA -Cont neuro checks -Monitor telemetry -Serial troponin -PT EVAL -MRI and carotids ordered, Neuro would like to be consulted if abnormal ESRD on hemodialysis, T,TH,Sat -Consult nephrology -Avoid nephrotoxins DM, chronic -Hold all home medications HTN, chronic -Resume home medications -Monitor vitals DVT prophylaxis: SCDs H&P: Quality VTE Deep Vein Thrombosis/Pulmonary Embolism Present on Admission: No
[2018-04-29] MEDS: Dextrose 50% in Water 50 ML Vial IV.PUSH PRN (21:33)
[2018-04-29 22:13] LABS: Activated Partial Thrombo Time 26.7 sec (23.4-31.7)
[2018-04-30] MEDS: Senna/Docusate Sodium 8.6/50 MG Tablet PO SCH ×3 (00:16→22:41)
[2018-04-30] MEDS: Dextrose 5%/NaCl 0.45% Inj 1,000 ML IV.CONT SCH ×2 (00:31→22:41)
[2018-04-30] MEDS: Levothyroxine 88 MCG Tablet PO SCH (06:22)
--- NOTE | 2018-04-30 07:11 | US ---
EXAM DATE: 04/30/2018 7:06 AM EST AGE/SEX: 62 years / Male INDICATIONS: Syncope. CLINICAL DATA: This is the patient's initial encounter. Patient reports that signs and symptoms have been present for 1 day and indicates a pain score of 0/10. MEDICAL/SURGICAL HISTORY: Diabetes. Hypertension. Anxiety. CVA. ETOH abuse. Hernia. Chroni c renal failure - on hemodialysis. Sleep apnea. . Vascular dialysis catheter in place. COMPARISON: [facility], US CAROTID DOPPLER BI, 01/28/2018. . VELOCITY PARAMETERS: ICA/CCA Ratio: Right 0.7 , Left 0.8 ICA: Right 48 cm/sec, Left 69 cm/sec CCA: Right 69 cm/sec, Left 91 cm/sec ECA: Right 61 cm/sec, Left 80 cm/sec Vertebral: Right 37 cm/sec antegrade, Left 34 cm/sec antegrade FINDINGS: Right Carotid: Mild arteriosclerotic plaque is visualized.The waveforms are within normal limits. Left Carotid: No significant plaque is visualized. The waveforms are within normal limits. Other: None. CONCLUSION: 1. Right Internal Carotid Artery: Findings indicate <50% stenosis. 2. Left Internal Carotid Artery: No significant stenosis or atherosclerotic plaque is visualized. Electronically signed by: Ronaldo Nuno MD Board Certified Radiologist 04/30/2018 7:10 AM EST
--- NOTE | 2018-04-30 08:24 | P.PNIM ---
Subjective Interval history: Follow-up for syncope, AMS, hypoglycemia, possible UTI. Patient is seen prior to going for MRI. He reports feeling fine today. He denies any headache, lightheadedness, dizziness, chest pain, palpitations, shortness breath, or abdominal complaints. He denies any recent vomiting or diarrhea. He reports fairly good oral intake recently, states he last had a muffin with bean on top prior to coming the hospital. Patient reports he has been on metformin for many years, with the dose last increased to 8 months ago. Denies being on any insulin or any other hypoglycemics. The patient does report a 40 pound weight loss since December 2017. He attributes the weight loss to frequent hospitalizations, and overall decreased oral intake. He denies any other medical complaints at this time. Physical Exam Vital signs: Vital Signs 04/29/18 12:47 04/29/18 12:49 04/29/18 13:45 Temperature 98.4 F Pulse Rate 81 88 Respiratory Rate 18 21 Blood Pressure 116/72 120/76 Pulse Oximetry 98 98 97 04/29/18 17:55 04/29/18 20:00 04/30/18 00:00 Temperature 97.8 F Pulse Rate 79 76 70 Respiratory Rate 18 20 16 Blood Pressure 101/76 184/87 H 120/69 Pulse Oximetry 97 100 04/30/18 04:00 04/30/18 07:00 Temperature 98.6 F Pulse Rate 76 75 Respiratory Rate 16 16 Blood Pressure 118/69 138/82 Pulse Oximetry 98 100 Intake & Output 04/29/18 04/30/18 04/30/18 18:59 06:59 18:59 Weight 90 kg 90 kg Other: # Voids 2 Date of Last Bowel Movement 04/29/18 Weight On Admission 90 kg Narrative: GENERAL: Well-nourished, well-developed pleasant middle aged male patient in [facility]. SKIN: Warm and dry. No rash. HEENT: Normocephalic. Atraumatic. Pupils equal and round. Mucous membranes pink and moist. CARDIOVASCULAR: Regular rate and rhythm. No murmur appreciated. RESPIRATORY: No accessory muscle use. Clear to auscultation. Breath sounds equal bilaterally. GASTROINTESTINAL: Abdomen soft, non-tender, nondistended. Normoactive bowel sounds x4. MUSCULOSKELETAL: No obvious deformities. Extremities without clubbing, cyanosis , or edema. NEUROLOGICAL: Awake and alert. No obvious cranial nerve deficits. Moving all extremities spontaneously. Normal speech. PSYCHIATRIC: Appropriate mood and affect; insight and judgment normal. Results Labs CBC & Chem 7: 04/30/18 11:50 04/30/18 15:29 Imaging Imaging: Impressions Cervical Spine CT 04/29/18 13:02 CONCLUSION: 1. Stable moderate diffuse primary degenerative changes, disc degeneration and disc space narrowing involving the mid to lower cervical spine. 2. No significant change compared to the prior exam. Head CT 04/29/18 13:02 CONCLUSION: 1. Stable noncontrast axial head CT . . Chest X-Ray 04/29/18 14:47 CONCLUSION: No acute intrathoracic disease. Stable examination. Carotid Doppler Study 04/30/18 00:00 CONCLUSION: 1. Right Internal Carotid Artery: Findings indicate <50% stenosis. 2. Left Internal Carotid Artery: No significant stenosis or atherosclerotic plaque is visualized. Assessment and Plan Plan 62 y/o male with a history of CVA, ESRD on HD TuThSa, DM, HTN, depression and anxiety was brought in by EMS for AMS s/p fall and near syncope at home, found to have blood glucose in the 30s. Encephalopathy/AMS/Near Syncope: suspect secondary to hypoglycemia, however rule out other etiologies such as CVA, arrhythmia, ACS, possibly UTI -Head CT reviewed and unremarkable -C-Spine CT reviewed, no significant changes, stable degenerative changes -CXR reviewed and unremarkable -Carotid U/S with R ICA < 50% stenosis, L ICA with no stenosis -ACS ruled out with negative serial cardiac enzymes x2, no complaints of chest pain -Checking Brain MRI/MRA per ER discussion with neurology Dr. 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, on gentle IVF -fix hypoglycemia, see below -possible UTI, started antibiotics as below -monitor neuro checks -monitor on telemetry -Consult PT Hypoglycemia, with hx of DM: patient reports only being on metformin at home, last dose increase 8 months ago, however patient reports 40lbs weight loss since December 2017 secondary to frequent hospitalizations and overall decreased oral intake, without any GI complaints -BG found to be in 30s via EVAC, and glucose continues to be persistently low throughout admission -continue on IV D5 1/2NS gentle hydration, caution with ESRD -monitor accu-checks -discontinue patient's metformin -check HgbA1c -hypoglycemia work up ordered -hypoglycemia protocol ordered UTI: patient with large leuks, WBCs on UA -start on doxycycline 100mg bid for now (allergies to erythromycin, penicillin, and with ESRD) -await final urine culture, adjust antibiotics as needed ESRD on HD: chronic. -on HD Sunday, , Sunday -Consult patient's graves registration specialist Dr. Blevins to continue Hypertension/Hyperlipidemia/Hx of CVA: chronic -continue patient's home meds including aspirin, coreg, norvasc, imdur, statin -monitor BP, adjust antihypertensives as needed Seizure Disorder: chronic -continue patient's Keppra -seizure precautions with persistent hypoglycemia Hypothyroidism: chronic -continue patient's synthroid -check TSH/T4 DVT Prophylaxis: teds/SCDs Progress Note: Quality VTE Deep Vein Thrombosis/Pulmonary Embolism Present on Admission: No
--- NOTE | 2018-04-30 10:12 | MR ---
EXAM DATE: 04/30/2018 10:03 AM EST AGE/SEX: 62 years / Male INDICATIONS: CVA. CLINICAL DATA: This is the patient's initial encounter. Patient reports that signs and symptoms have been present for 1 day and indicates a pain score of 0/10. MEDICAL/SURGICAL HISTORY: Hypertension. Diabetes mellitus type II. Renal failure, chronic. . Hernia repair and deviated septum repair. [place] [facility] [place]. . TECHNIQUE: 3D [id number] MRA was performed. Source images, multiplanar STS MIP, and 3D volum e MIP reconstructions were reviewed. FINDINGS: There is excellent visualization of the major intracranial arteries out to the second-order branch ve ssels. There is no evidence for aneurysm, vessel truncation or stenosis, and no evidence for vascula r malformation. The patient has a prominent right posterior communicating artery which contributes the majority of th e flow to the right posterior cerebral circulation. The left-sided middle cerebral vessels are slight ly more prominent in size than the right CONCLUSION: 1. No focal stenosis or aneurysm is identified. 2. Patent right posterior communicating artery is the majority of flow to the right posterior cerebr al circulation 3. Mild luminal asymmetry in the distal middle cerebral branches left greater than right. Electronically signed by: Tariq Garcia MD Board Certified Radiologist 04/30/2018 10:11 AM EST
--- NOTE | 2018-04-30 10:16 | MR ---
EXAM DATE: 04/30/2018 10:03 AM EST AGE/SEX: 62 years / Male INDICATIONS: CVA. CLINICAL DATA: This is the patient's initial encounter. Patient reports that signs and symptoms have been present for 1 day and indicates a pain score of 0/10. MEDICAL/SURGICAL HISTORY: Hypertension. Diabetes mellitus type II. Renal failure, chronic. . Hernia repair and deviated septum repair. COMPARISON: [facility], MRA HEAD W/O CONTRAST, 04/30/2018. . TECHNIQUE: Multiplanar, multisequence examination of the brain was performed without contrast. FINDINGS: Cerebrum: Patient's had a previous right temporoparietal stroke with some surrounding glial cysts an d evidence of old minimal peripheral hemorrhage. No acute mass effect is identified. The ventricles a re mildly prominent. No other strokes are identified. White Matter: No significant signal abnormalities are seen in the white matter. Posterior Fossa: The cerebellum and brainstem are intact. The 4th ventricle is midline. The cerebel lopontine angle is unremarkable. The cerebellar tonsils are normal in position. Diffusion Imaging: No focal areas of restricted diffusion are seen. No evidence of acute infarction . Extracranial: The visualized portions of the orbits and paranasal sinuses are unremarkable. CONCLUSION: 1. Previous right-sided stroke with some surrounding gliosis. No evidence of an acute stroke, acute mass or mass effect. Electronically signed by: Tariq Garcia MD Board Certified Radiologist 04/30/2018 10:15 AM EST
[2018-04-30] MEDS ORDERED: Sod Chloride 0.9% Inj 1,000 ML OTHER PRN ×2 (11:49)
[2018-04-30] MEDS ORDERED: Gelatin 12 MM/7 MM Topical Foam TOPICAL PRN (11:49)
[2018-04-30] MEDS ORDERED: Heparin 10,000 UNITS/10 ML Vial (for IV use) OTHER PRN ×2 (11:49)
[2018-04-30] MEDS ORDERED: Sod Chloride 0.9% Inj 1,000 ML IV.CONT PRN (11:49)
[2018-04-30] MEDS ORDERED: Albumin Human 25% Inj 100 ML IV.SIG PRN (11:49)
[2018-04-30] MEDS: Dextrose 50% in Water 50 ML Vial IV.PUSH PRN (12:57)
[2018-04-30 13:55] LABS: Baso # (Auto) 0.1 th/mm3 (0.0-0.2); Baso % (Auto) 0.6 % (0.0-2.0); Eos # (Auto) 0.1 th/mm3 (0.0-0.4); Eos % (Auto) 0.7 % (0.0-4.0); Hematocrit 39.5 % (39.0-51.0); Hemoglobin 12.9 gm/dL (13.0-17.0); Lymph # (Auto) 0.9 th/mm3 (1.0-4.8); Lymph % (Auto) 8.7 % (9.0-44.0); Mean Corpuscular HGB Conc 32.7 % (32.0-36.0); Mean Corpuscular Hemoglobin 26.9 pg (27.0-34.0); Mean Corpuscular Volume 82.2 fL (80.0-100.0); Mean Platelet Volume 8.7 fL (7.0-11.0); Mono # (Auto) 0.5 th/mm3 (0.0-0.9); Neut # (Auto) 8.4 th/mm3 (1.8-7.7); Platelet Count 300 th/mm3 (150-450); Red Blood Count 4.81 mil/mm3 (4.50-5.90); Red Cell Distribution Width 16.7 % (11.6-17.2); White Blood Count 9.8 th/mm3 (4.0-11.0)
[2018-04-30] MEDS: levETIRAcetam 500 MG Tablet PO SCH ×2 (14:17→22:36)
[2018-04-30] MEDS: amLODIPine 10 MG Tablet PO SCH (14:18)
[2018-04-30] MEDS: Carvedilol 6.25 MG Tablet PO SCH ×2 (14:18→22:37)
[2018-04-30] MEDS: Isosorbide Mononitrate 30 MG ER 24HR Tablet (Imdur) PO SCH (14:18)
--- NOTE | 2018-04-30 14:58 | P.CONNP ---
<LarySmiley - Last Filed: 04/30/18 14:45> History of Present Illness Service: Nephrology Consult date: 04/30/18 Requesting Physician: Luis Carlos Azar Reason for Consult: Management of end stage renal disease Primary Care Provider: No Primary Care Physician History of Present Illness: Patient is a 62 y/o male with a history of CVA, DM, HTN, depression, anxiety, and end stage renal disease on hemodialysis. Brought in by EMS for AMS s/p fall at home. Patient was found to have to have a blood sugar in the 30s. Nephrology is consulted for management of end stage renal disease. Has been going to transitional dialysis at [place] on Sun with last Hemodialysis on Sunday. Has D5 1/2 NS infusing for hypoglycemia. Denies any shortness of breath, chest pain, nausea, or vomiting. Right chest wall PermCath without signs of infection. UA is abnormal and culture is pending. Review of Systems All other systems reviewed negative except as stated in HPI PMFSH - History History Provided By: Patient - Medical History Medical History: Medical History (Last Reviewed 04/30/18 @ 08:07 by Mariposa Vasquez) Hernia Sleep apnea Anxiety CVA (cerebral vascular accident) Diabetes ETOH abuse Hypertension No significant past surgical history Renal failure Vascular dialysis catheter in place - Family History Family History: Family History (Last Reviewed 04/30/18 @ 08:07 by Mariposa Vasquez) Mother Kidney carcinoma Father CAD (coronary artery disease) - Tobacco History Second Hand Smoke Exposure: No Tobacco Use In Past 30 Days: No Smoking Status: Former smoker Tobacco Type: Cigarettes - Alcohol History How Often Do You Have a Drink Containing Alcohol: 2 to 4 times a month - Substance Use History Substance History: No History of Abuse - Substance Use Type Alcohol Status: Active Reason for Use: Calm Down - Travel History Recent Travel in the [place] Within the Last 8 Weeks: No Recent Travel Out of the Country Within the Last 8 Weeks: No - Immunization History Tetanus Immunization: Unsure Medications and Allergies Allergies Allergy/AdvReac Type Severity Reaction Status Date / Time erythromycin base Allergy Severe Hives Verified 01/14/18 03:00 penicillin G Allergy Severe Hives Verified 01/14/18 03:00 Home Medications Medication Instructions Recorded Confirmed Type atorvastatin 20 mg PO QPM 04/29/18 04/29/18 History Active Medications: Active Medications Acetaminophen (Tylenol) 650 mg PO Q4H PRN PRN Reason: Temp > 100.4 Al Hydroxide/Mg Hydroxide (Milk Of Magngabriela Liq) 30 ml PO Q12H PRN PRN Reason: Mild Constipation Amlodipine Besylate (Norvasc) 10 mg PO DAILY [facility] Last Admin: 04/30/18 14:18 Dose: 10 mg Aspirin (Aspirin Chew) 81 mg PO DAILY [facility] Last Admin: 04/30/18 14:18 Dose: 81 mg Atorvastatin Calcium (Lipitor) 20 mg PO HS [facility] Bisacodyl (Dulcolax Supp) 10 mg RECTAL DAILY PRN PRN Reason: SEVERE CONSITIPATION Carvedilol (Coreg) 6.25 mg PO BID [facility] Last Admin: 04/30/18 14:18 Dose: 6.25 mg Clonidine HCl (Catapres) 0.1 mg PO UNSCH PRN PRN Reason: SEE LABEL COMMENTS Dextrose (D50w Vial) 50 ml IV.PUSH UNSCH PRN PRN Reason: PER HYPOGLYCEMIA PROTOCOL Last Admin: 04/30/18 12:57 Dose: 50 ml Diphenhydramine HCl (Benadryl) 25 mg PO UNSCH PRN PRN Reason: SEE LABEL COMMENTS Gelatin (Gelfoam 12 Mm/7 Mm Topical) 1 foam TOPICAL PRN PRN PRN Reason: help stop bleeding from site Gentamicin Sulfate (Gentamicin Inj) 20 mg OTHER WITH DIALYSIS PRN PRN Reason: Dwell Gentamycin Lock Last Admin: 04/30/18 13:05 Dose: 20 mg Heparin Sodium (Porcine) (Heparin Inj) 8,000 units OTHER WITH DIALYSIS PRN PRN Reason: for machine prime Heparin Sodium (Porcine) (Heparin Inj) 1,000 units OTHER WITH DIALYSIS PRN PRN Reason: Dwell Heparin to Fill Catheter Last Admin: 04/30/18 13:05 Dose: 1,000 units Dextrose/Sodium Chloride (D5w/1/2 Ns Inj) 1,000 mls @ 42 mls/hr IV.CONT .[id number] [facility] Last Infusion: 04/30/18 14:12 Dose: 42 mls/hr Albumin Human (Flexbumin 25% Inj) 100 mls @ 60 mls/hr IV.SIG WITH DIALYSIS PRN PRN Reason: hypotension / volume replace Sodium Chloride (Ns Inj) 1,000 mls @ 0 mls/hr OTHER .Q0M PRN PRN Reason: for prime and rinse back Sodium Chloride (Ns Inj) 1,000 mls @ 200 mls/hr OTHER .Q5H PRN PRN Reason: for dialyzer flush PRN Sodium Chloride (Ns Inj) 1,000 mls @ 0 mls/hr IV.CONT .Q0M PRN PRN Reason: hypotension / volume replace Isosorbide Mononitrate (Imdur) 30 mg PO DAILY [facility] Last Admin: 04/30/18 14:18 Dose: 30 mg Lactulose (Lactulose Liq) 30 ml PO DAILY PRN PRN Reason: SEVERE CONSITIPATION Levetiracetam (Keppra) 500 mg PO BID [facility] Last Admin: 04/30/18 14:17 Dose: 500 mg Levothyroxine Sodium (Synthroid) 88 mcg PO DAILY@0600 [facility] Last Admin: 04/30/18 06:22 Dose: 88 mcg Mannitol (Mannitol Inj) 12.5 gm IV.PUSH UNSCH PRN PRN Reason: hypotension / volume replace Nitroglycerin (Nitrostat Sl) 0.4 mg SL Q5M PRN PRN Reason: CHEST PAIN Ondansetron HCl (Zofran Inj) 4 mg IV.PUSH Q6H PRN PRN Reason: NAUSEA OR VOMITING Ondansetron HCl (Zofran Inj) 4 mg IV.PUSH UNSCH PRN PRN Reason: NAUSEA OR VOMITING Pantoprazole Sodium (Protonix) 40 mg PO DAILY [facility] Last Admin: 04/30/18 14:17 Dose: 40 mg Quetiapine Fumarate (Seroquel) 100 mg PO [facility] Senna/Docusate Sodium (Ayleen-Colace) 1 tab PO BID [facility] Last Admin: 04/30/18 14:18 Dose: Not Given Sennosides (Senokot) 17.2 mg PO Q12H PRN PRN Reason: Moderate Constipation Sodium Chloride (Ns Flush) 2 ml IV.FLUSH BID [facility] Last Admin: 04/30/18 14:11 Dose: Not Given Sodium Chloride (Ns Flush) 2 ml IV.FLUSH UNSCH PRN PRN Reason: FLUSH AFTER USING IV ACCESS Sodium Chloride (Ns Flush) 5 ml IV.FLUSH PRN PRN PRN Reason: flush each lumen during HD Exam Vital signs: Vital Signs 04/29/18 17:55 04/29/18 20:00 04/30/18 00:00 Temperature 97.8 F Pulse Rate 79 76 70 Respiratory Rate 18 20 16 Blood Pressure 101/76 184/87 H 120/69 Pulse Oximetry 97 100 04/30/18 04:00 04/30/18 07:00 04/30/18 14:09 Temperature 98.6 F Pulse Rate 76 75 95 H Respiratory Rate 16 16 17 Blood Pressure 118/69 138/82 139/87 Pulse Oximetry 98 100 98 Intake & Output 04/29/18 04/30/18 04/30/18 18:59 06:59 18:59 Intake Total 600 / 600 Output Total 2200 / 2200 Balance -1600 / -1600 Weight 90 kg 90 kg Intake: IV 600 / 600 D5W/1/2 NS Inj 1,000 ML @ 42 600 / 600 mls/hr IV.CONT .[id number] [facility] Rx# :[id number] Output: Urine 200 / 200 Hemodialysis Amount 1999 Other: # Voids 2 Date of Last Bowel Movement 04/29/18 04/30/18 Weight On Admission 90 kg Narrative: GENERAL: alert and oriented. SKIN: Warm and dry. NECK: Supple, trachea midline. No JVD CARDIOVASCULAR: Regular rate and rhythm without murmurs, gallops, or rubs. Right chest wall perma cath. RESPIRATORY: Breath sounds equal bilaterally. No accessory muscle use. GASTROINTESTINAL: Abdomen soft, non-tender, nondistended. +BS MUSCULOSKELETAL: No cyanosis, or edema. BACK: Nontender without obvious deformity. No CVA tenderness. Results - Lab Results 04/30/18 11:50 04/29/18 14:10 Most recent lab results Calcium 8.9 mg/dL (8.5-10.1) 04/29/18 14:10 Magnesium 2.0 mg/dL (1.5-2.5) 04/29/18 14:10 Assessment and Plan - Assessment (1) End stage renal disease on dialysis Code(s): N18.6 - End stage renal disease; Z99.2 - Dependence on renal dialysis Status: Acute (2) Hypertension Code(s): I10 - Essential (primary) hypertension Status: Acute Plan: (3) Hypoglycemia Code(s): E16.2 - Hypoglycemia, unspecified Status: Acute - Plan ESRD on hemodialysis Right chest wall permacath Continue HD on T/[facility] Transitional HD set up outpatient HD done today tolerated well with removal of 2 liters of fluid Hypertension Well controlled. On amlodipine and coreg. Hypoglycemia BS at 30 per [facility]. Blood sugars remain labile. On D5 1/2 NS. Has had falls at home. Abnormal UA Culture pending. <Brianna Blevins - Last Filed: 04/30/18 22:11> History of Present Illness Primary Care Provider: No Primary Care Physician [facility] - Medical History Medical History: Medical History (Last Reviewed 04/30/18 @ 08:07 by Mariposa Vasquez) Hernia Sleep apnea Anxiety CVA (cerebral vascular accident) Diabetes ETOH abuse Hypertension No significant past surgical history Renal failure Vascular dialysis catheter in place - Family History Family History: Family History (Last Reviewed 04/30/18 @ 08:07 by Mariposa Vasquez) Mother Kidney carcinoma Father CAD (coronary artery disease) Medications and Allergies Active Medications: Active Medications Acetaminophen (Tylenol) 650 mg PO Q4H PRN PRN Reason: Temp > 100.4 Al Hydroxide/Mg Hydroxide (Milk Of Orion Cooper) 30 ml PO Q12H PRN PRN Reason: Mild Constipation Amlodipine Besylate (Norvasc) 10 mg PO DAILY [facility] Last Admin: 04/30/18 14:18 Dose: 10 mg Aspirin (Aspirin Chew) 81 mg PO DAILY [facility] Last Admin: 04/30/18 14:18 Dose: 81 mg Atorvastatin Calcium (Lipitor) 20 mg PO HS [facility] Bisacodyl (Dulcolax Supp) 10 mg RECTAL DAILY PRN PRN Reason: SEVERE CONSITIPATION Carvedilol (Coreg) 6.25 mg PO BID [facility] Last Admin: 04/30/18 14:18 Dose: 6.25 mg Clonidine HCl (Catapres) 0.1 mg PO UNSCH PRN PRN Reason: SEE LABEL COMMENTS Dextrose (D50w Vial) 50 ml IV.PUSH UNSCH PRN PRN Reason: PER HYPOGLYCEMIA PROTOCOL Last Admin: 04/30/18 12:57 Dose: 50 ml Diphenhydramine HCl (Benadryl) 25 mg PO UNSCH PRN PRN Reason: SEE LABEL COMMENTS Doxycycline Hyclate (Vibramycin) 100 mg PO Q12HR [facility] Stop: 05/07/18 14:59 Last Admin: 02/26/19 16:04 Dose: 100 mg Gelatin (Gelfoam 12 Mm/7 Mm Topical) 1 foam TOPICAL PRN PRN PRN Reason: help stop bleeding from site Gentamicin Sulfate (Gentamicin Inj) 20 mg OTHER WITH DIALYSIS PRN PRN Reason: Dwell Gentamycin Lock Last Admin: 04/30/18 13:05 Dose: 20 mg Heparin Sodium (Porcine) (Heparin Inj) 8,000 units OTHER WITH DIALYSIS PRN PRN Reason: for machine prime Heparin Sodium (Porcine) (Heparin Inj) 1,000 units OTHER WITH DIALYSIS PRN PRN Reason: Dwell Heparin to Fill Catheter Last Admin: 04/30/18 13:05 Dose: 1,000 units Dextrose/Sodium Chloride (D5w/1/2 Ns Inj) 1,000 mls @ 42 mls/hr IV.CONT .[id number] [facility] Last Infusion: 04/30/18 14:12 Dose: 42 mls/hr Albumin Human (Flexbumin 25% Inj) 100 mls @ 60 mls/hr IV.SIG WITH DIALYSIS PRN PRN Reason: hypotension / volume replace Sodium Chloride (Ns Inj) 1,000 mls @ 0 mls/hr OTHER .Q0M PRN PRN Reason: for prime and rinse back Sodium Chloride (Ns Inj) 1,000 mls @ 200 mls/hr OTHER .Q5H PRN PRN Reason: for dialyzer flush PRN Sodium Chloride (Ns Inj) 1,000 mls @ 0 mls/hr IV.CONT .Q0M PRN PRN Reason: hypotension / volume replace Isosorbide Mononitrate (Imdur) 30 mg PO DAILY [facility] Last Admin: 04/30/18 14:18 Dose: 30 mg Lactulose (Lactulose Liq) 30 ml PO DAILY PRN PRN Reason: SEVERE CONSITIPATION Levetiracetam (Keppra) 500 mg PO BID [facility] Last Admin: 04/30/18 14:17 Dose: 500 mg Levothyroxine Sodium (Synthroid) 88 mcg PO DAILY@0600 [facility] Last Admin: 04/30/18 06:22 Dose: 88 mcg Mannitol (Mannitol Inj) 12.5 gm IV.PUSH UNSCH PRN PRN Reason: hypotension / volume replace Nitroglycerin (Nitrostat Sl) 0.4 mg SL Q5M PRN PRN Reason: CHEST PAIN Ondansetron HCl (Zofran Inj) 4 mg IV.PUSH Q6H PRN PRN Reason: NAUSEA OR VOMITING Ondansetron HCl (Zofran Inj) 4 mg IV.PUSH UNSCH PRN PRN Reason: NAUSEA OR VOMITING Pantoprazole Sodium (Protonix) 40 mg PO DAILY [facility] Last Admin: 04/30/18 14:17 Dose: 40 mg Quetiapine Fumarate (Seroquel) 100 mg PO [facility] Senna/Docusate Sodium (Ayleen-Colace) 1 tab PO BID [facility] Last Admin: 04/30/18 14:18 Dose: Not Given Sennosides (Senokot) 17.2 mg PO Q12H PRN PRN Reason: Moderate Constipation Sodium Chloride (Ns Flush) 2 ml IV.FLUSH BID [facility] Last Admin: 04/30/18 14:11 Dose: Not Given Sodium Chloride (Ns Flush) 2 ml IV.FLUSH UNSCH PRN PRN Reason: FLUSH AFTER USING IV ACCESS Sodium Chloride (Ns Flush) 5 ml IV.FLUSH PRN PRN PRN Reason: flush each lumen during HD Exam Vital signs: Vital Signs 04/30/18 00:00 04/30/18 04:00 04/30/18 07:00 Temperature 98.6 F Pulse Rate 70 76 75 Respiratory Rate 16 16 16 Blood Pressure 120/69 118/69 138/82 Pulse Oximetry 100 98 100 04/30/18 08:00 04/30/18 12:00 04/30/18 14:09 Temperature Pulse Rate 82 76 95 H Respiratory Rate 17 Blood Pressure 139/87 Pulse Oximetry 98 04/30/18 16:09 04/30/18 16:25 04/30/18 20:00 Temperature 98.7 F 98.3 F Pulse Rate 86 88 78 Respiratory Rate 18 16 Blood Pressure 129/75 117/76 Pulse Oximetry 97 97 Intake & Output 04/30/18 04/30/18 05/01/18 06:59 18:59 06:59 Intake Total 1350 / 1350 Output Total 2200 / 2200 Balance -850 / -850 Weight 90 kg Intake: IV 600 / 600 D5W/1/2 NS Inj 1,000 ML @ 42 600 / 600 mls/hr IV.CONT .[id number] [facility] Rx# :[id number] Oral 750 / 750 Output: Urine 200 / 200 Hemodialysis Amount 1999 Other: # Voids 2 7 Date of Last Bowel Movement 04/29/18 04/30/18 # Bowel Movements 1 Results - Lab Results 04/30/18 11:50 04/30/18 15:29 Most recent lab results Calcium 8.1 mg/dL (8.5-10.1) L D 04/30/18 15:29 Magnesium 2.0 mg/dL (1.5-2.5) 04/29/18 14:10 Assessment and Plan - Assessment (1) End stage renal disease on dialysis Code(s): N18.6 - End stage renal disease; Z99.2 - Dependence on renal dialysis Status: Acute (2) Hypertension Code(s): I10 - Essential (primary) hypertension Status: Acute (3) Hypoglycemia Code(s): E16.2 - Hypoglycemia, unspecified Status: Acute - Plan Patient seen and examined, agree with above. Patient has Hypoglycemia. Told not to take Metformin. HD done, follow the BS.
[2018-04-30 16:16] LABS: Beta Hydroxybutyric Acid 0.12 mmol/L (0.00-0.39)
[2018-04-30 16:28] LABS: Alanine Aminotransferase 14 U/L (12-78); Albumin 3.1 g/dL (3.4-5.0); Alkaline Phosphatase 91 U/L (45-117); Anion Gap 9 meq/L (5-15); Aspartate Aminotransferase 12 U/L (15-37); Blood Urea Nitrogen 17 mg/dL (7-18); Calcium 8.1 mg/dL (8.5-10.1); Carbon Dioxide 29.2 meq/L (21.0-32.0); Chloride 100 meq/L (98-107); Glomerular Filtration Rate 22 mL/min (>89); Glucose,Random 177 mg/dL (74-106); Potassium 3.5 meq/L (3.5-5.1); Sodium 138 meq/L (136-145); Total Protein 6.5 g/dL (6.4-8.2)
--- NOTE | 2018-04-30 17:29 | ECHRPT ---
Indication: Cardiomyopathy CONCLUSIONS Technically very difficult study, making assessment of left ventricular function and wall motion sub optimal. Grossly left ventricular function appears to be normal with estimated ejection fraction of 60%. Ther e was limited left ventricular wall motion assessment due to poor endocardial visualization. Mildly dilated proximal ascending aorta. The aortic valve is not well visualized. BP: / HR: Rhythm: MEASUREMENTS (Male / Female) Normal Values Technical Quality:Technically difficult study 2D ECHO LV Diastolic Diameter PLAX 4.1 cm 4.2 - 5.9 / 3.9 - 5.3 cm IVS Diastolic Thickness 1.0 cm 0.6 - 1.0 / 0.6 - 0.9 cm LVPW Diastolic Thickness 1.0 cm 0.6 - 1.0 / 0.6 - 0.9 cm LV Relative Wall Thickness 0.5 RV Internal Dim ED PLAX 2.4 cm LVOT Diameter 2.3 cm Aortic Root Diameter 3.9 cm DOPPLER AV Peak Velocity 143.0 cm/s AV Peak Gradient 8.2 mmHg LVOT Peak Velocity 112.0 cm/s LVOT Peak Gradient 5.0 mmHg AV Area Cont Eq pk 3.3 cm Mitral E Point Velocity 67.1 cm/s Mitral A Point Velocity 110.0 cm/s Mitral E to A Ratio 0.6 LV E' Lateral Velocity 8.1 cm/s Mitral E to LV E' Lateral Ratio 8.3 LV E' Septal Velocity 5.6 cm/s Mitral E to LV E' Septal Ratio 12.1 PV Peak Velocity 111.0 cm/s PV Peak Gradient 4.9 mmHg FINDINGS LEFT VENTRICLE Technically very difficult study, making assessment of left ventricular function and wall motion sub optimal. Grossly left ventricular function appears to be normal with estimated ejection fraction of 60%. Ther e was limited left ventricular wall motion assessment due to poor endocardial visualization. RIGHT VENTRICLE Normal right ventricular size and systolic function. LEFT ATRIUM The left atrial size is normal. RIGHT ATRIUM The right atrial size is normal. ATRIAL SEPTUM Normal atrial septal thickness. AORTA Mildly dilated proximal ascending aorta. MITRAL VALVE Structurally normal mitral valve. No mitral valve stenosis or regurgitation. AORTIC VALVE The aortic valve is not well visualized. TRICUSPID VALVE Structurally normal tricuspid valve. No tricuspid valve stenosis or regurgitation. PULMONARY VALVE The pulmonary valve is not well visualized. VESSELS The inferior vena cava is normal in size. PERICARDIUM No pericardial effusion. Adriano Gomez MD (Electronically Signed) Final Date:30 April 2018 17:28
--- NOTE | 2018-04-30 20:23 | ECG ---
Date Performed: 04/29/2018 Time Performed: 13:38:09 PTAGE: 62 years EKG: Sinus rhythm WITH OCCASIONAL SUPRAVENTRICULAR PREMATURE COMPLEXES BORDERLINE ECG PREVIOUS TRACING : 04/18/2018 16.26 Since the previous tracing, no significant change noted DOCTOR: Julieth Dunaway Interpretating Date/Time 04/30/2018 20:22:08
--- NOTE | 2018-04-30 20:23 | ECG ---
Date Performed: 04/29/2018 Time Performed: 21:22:53 PTAGE: 62 years EKG: Sinus rhythm WITH OCCASIONAL VENTRICULAR PREMATURE COMPLEXES POSSIBLE LEFT ATRIAL ENLARGEMENT BORDERLINE ECG INTE RPRETATION BASED ON A DEFAULT AGE OF 40 YEARS PREVIOUS TRACING : 04/29/2018 20.44 Since the previous tracing, no significant change not ed DOCTOR: Julieth Dunaway Interpretating Date/Time 04/30/2018 20:22:33
--- NOTE | 2018-04-30 20:23 | ECG ---
Date Performed: 04/29/2018 Time Performed: 20:44:07 PTAGE: 62 years EKG: Sinus rhythm NORMAL ECG PREVIOUS TRACING : 04/29/2018 13.38 Since the previous tracing, no significant change noted DOCTOR: Julieth Dunaway Interpretating Date/Time 04/30/2018 20:22:20
[2018-04-30 20:33] VITALS: RESP 16
[2018-04-30] MEDS ORDERED: QUEtiapine 100 MG Tablet PO SCH (21:00)
[2018-05-01] MEDS: Dextrose 5%/NaCl 0.45% Inj 1,000 ML IV.CONT SCH (04:40)
[2018-05-01] MEDS: Levothyroxine 88 MCG Tablet PO SCH (06:22)
[2018-05-01 07:37] VITALS: O2SAT 95
[2018-05-01] MEDS: Isosorbide Mononitrate 30 MG ER 24HR Tablet (Imdur) PO SCH (08:48)
[2018-05-01] MEDS: levETIRAcetam 500 MG Tablet PO SCH (08:48)
[2018-05-01] MEDS: amLODIPine 10 MG Tablet PO SCH (08:48)
[2018-05-01] MEDS: Carvedilol 6.25 MG Tablet PO SCH (08:48)
[2018-05-01] MEDS: Senna/Docusate Sodium 8.6/50 MG Tablet PO SCH (08:49)
--- NOTE | 2018-05-01 10:17 | P.PNIM ---
Physical Exam Vital signs: Vital Signs 04/30/18 12:00 04/30/18 14:09 04/30/18 16:09 Temperature 98.7 F Pulse Rate 76 95 H 86 Respiratory Rate 17 18 Blood Pressure 139/87 129/75 Pulse Oximetry 98 97 04/30/18 16:25 04/30/18 20:00 04/30/18 20:05 Temperature 98.3 F Pulse Rate 88 78 80 Respiratory Rate 16 Blood Pressure 117/76 Pulse Oximetry 97 04/30/18 23:32 05/01/18 01:10 05/01/18 04:00 Temperature Pulse Rate 81 66 Respiratory Rate 16 16 Blood Pressure 87/52 L 102/65 116/66 Pulse Oximetry 95 96 05/01/18 07:37 Temperature 98.6 F Pulse Rate 75 Respiratory Rate 16 Blood Pressure 135/81 Pulse Oximetry 95 Intake & Output 04/30/18 05/01/18 05/01/18 18:59 06:59 18:59 Intake Total 1350 / 1350 1120 / 1120 210 / 210 Output Total 2200 / 2200 Balance -850 / -850 1120 / 1120 210 / 210 Intake: IV 600 / 600 400 / 400 210 / 210 D5W/1/2 NS Inj 1,000 ML @ 42 600 / 600 400 / 400 210 / 210 mls/hr IV.CONT .[id number] [facility] Rx# :[id number] Oral 750 / 750 720 / 720 Output: Urine 200 / 200 Hemodialysis Amount 1999 Other: # Voids 7 4 Date of Last Bowel Movement 04/30/18 04/30/18 # Bowel Movements 1 Narrative: GENERAL: Well-nourished, well-developed pleasant middle aged male patient in [facility]. SKIN: Warm and dry. No rash. HEENT: Normocephalic. Atraumatic. Pupils equal and round. Mucous membranes pink and moist. CARDIOVASCULAR: Regular rate and rhythm. No murmur appreciated. RESPIRATORY: No accessory muscle use. Clear to auscultation. Breath sounds equal bilaterally. GASTROINTESTINAL: Abdomen soft, non-tender, nondistended. Normoactive bowel sounds x4. MUSCULOSKELETAL: No obvious deformities. Extremities without clubbing, cyanosis , or edema. NEUROLOGICAL: Awake and alert. No obvious cranial nerve deficits. Moving all extremities spontaneously. Normal speech. PSYCHIATRIC: Appropriate mood and affect; insight and judgment normal. Results Labs CBC & Chem 7: 02/26/19 11:50 04/30/18 15:29 Labs: Microbiology 04/29/18 14:20 Clean Catch Urine Urine Culture - Final 10-50,000 cfu/mL mixed gram positive eduardo (probable contaminants) Imaging Imaging: Impressions Head MRI 04/30/18 00:00 CONCLUSION: 1. Previous right-sided stroke with some surrounding gliosis. No evidence of an acute stroke, acute mass or mass effect. Assessment and Plan (1) End stage renal disease on dialysis: Code(s): N18.6 - End stage renal disease; Z99.2 - Dependence on renal dialysis Status: Acute (2) Hypertension: Code(s): I10 - Essential (primary) hypertension Status: Acute (3) Hypoglycemia: Code(s): E16.2 - Hypoglycemia, unspecified Status: Acute Progress Note: Quality VTE Deep Vein Thrombosis/Pulmonary Embolism Present on Admission: No _ (1) Hypertension Qualifiers: Hypertension type:
--- NOTE | 2018-05-01 11:10 | P.DS ---
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 Patient was found to have to have a blood sugar in the 30s. Upon examination patient was only oriented to self. Could only answer simple questions. Denies any chest pain, sob, abdominal pain or dysuria. Patient was called a stroke alert by nursing but then found to have a sugar of 34. Dextrose given. Head CT in ER was negative. I discussed case with Dr. Iglesias who agrees it is sugar related and only to scan his head if he does not awaken after Dextrose. Patient became oriented x [address] Iglesias recommended MRI and carotid US. Patient is denying any chest pain, sob, fever or chills. Patient update on day of discharge: Follow-up visit hemodialysis, hypoglycemia, syncope. Patient seen and examined today. Reports he is doing well. States that he is able to ambulate with walker use without any trouble. States that he uses [facility] for his transitional dialysis. Denies pain and discomfort. Denies SOB/ dyspnea. Denies chest pain, palpitations, headaches, dizziness. Denies fevers, chills, n/v/d. DS: Diagnosis Discharge Diagnosis (1) End stage renal disease on dialysis: Status: Acute (2) Hypertension: Status: Acute (3) Hypoglycemia: Status: Acute DS: Summary 62 y/o male with a history of CVA, ESRD on HD TuThSa, DM, HTN, depression and anxiety was brought in by EMS for AMS s/p fall and near syncope at home, found to have blood glucose in the 30s. Patient has encephalopathy, acute altered mental status suspicion for secondary to hypoglycemia. Patient has ruled out other etiologies such as CVA, arrhythmia, ACS, possible urinary tract infection. Head CT was reviewed and was unremarkable. C-spine CT with no significant changes, stable degenerative changes. Chest x-ray is unremarkable. Carotid U/S with R ICA < 50% stenosis, L ICA with no stenosis. ACS was ruled out with negative serial cardiac enzymes, no complaints of chest pain. Head MRA showed focal stenosis or aneurysm identified. Patient right posterior communicating artery is the majority of the flow to the right posterior cerebral circulation. Mild luminal symmetry in the distal middle cerebral branches left greater than the right. MRI of the brain without contrast showed previous right-sided stroke with some surrounding gliosis. No evidence of an acute stroke, acute mass or mass effect. His UA was abnormal but came back with mixed gram eduardo possible contaminants.His hemoglobin A1c is 6.0. Discussed extensively with patient not to take metformin anymore. He will continue to have hemodialysis transitional at [facility]. For chronic problems such as HTN, HLD, history of CVA patient has continued to take his medication aspirin, Coreg, Norvasc, Imdur, statin medication. For his seizure disorder he continues to take Keppra. His hyperthyroidism continues to take Synthroid. Patient has met maximal benefits of hospitalization. Clinically stable for discharge. Follow-up with PCP, follow-up with nephrology and outpatient. Time Spent with Patient Total time spent providing and/or coordinating discharge services: >30 mins Quality: VTE Deep Vein Thrombosis/Pulmonary Embolism Present on Admission: No Exam Narrative Exam Narrative: GENERAL: This is a well-nourished, well-developed patient, in no apparent distress. SKIN: Warm and dry. HEENT: Normocephalic. Pupils equal round and reactive. Nose without bleeding. Airway patent. NECK: Trachea midline. CARDIOVASCULAR: Regular rate and rhythm without murmurs, gallops, or rubs. RESPIRATORY: Clear to auscultation. Breath sounds equal bilaterally. No wheezes , rales, or rhonchi. GASTROINTESTINAL: Abdomen soft, non-tender, nondistended. Bowel Sounds normoactive x4. MUSCULOSKELETAL: Extremities without clubbing, cyanosis, or edema. NEUROLOGICAL: Awake and alert. No focal neuro deficit. Moves all extremities. Normal speech. Results Labs on day of discharge: Labs from last 24 hours 05/01/18 05/01/18 04/30/18 08:47 04:41 23:52 WBC RBC Hgb Hct MCV MCH MCHC RDW Plt Count MPV Neut % (Auto) Lymph % (Auto) [place] % (Auto) Eos % (Auto) Baso % (Auto) Neut # (Auto) Lymph # (Auto) [place] # (Auto) Eos # (Auto) Baso # (Auto) WBC Differential Differential Comment Sodium Potassium Chloride Carbon Dioxide Anion Gap BUN Creatinine Estimated GFR POC Glucose 97 110 132 H Random Glucose Hemoglobin A1c Insulin Level Proinsulin C-Peptide Calcium Total Bilirubin AST ALT Alkaline Phosphatase Troponin I Total Protein Albumin Beta-Hydroxybutyric Acd 04/30/18 04/30/18 04/30/18 20:45 17:31 15:29 WBC RBC Hgb Hct MCV MCH MCHC RDW Plt Count MPV Neut % (Auto) Lymph % (Auto) [place] % (Auto) Eos % (Auto) Baso % (Auto) Neut # (Auto) Lymph # (Auto) [place] # (Auto) Eos # (Auto) Baso # (Auto) WBC Differential Differential Comment Sodium Potassium Chloride Carbon Dioxide Anion Gap BUN Creatinine Estimated GFR POC Glucose 120 H 143 H Random Glucose Hemoglobin A1c Insulin Level Pending Proinsulin Pending C-Peptide Pending Calcium Total Bilirubin AST ALT Alkaline Phosphatase Troponin I Total Protein Albumin Beta-Hydroxybutyric Acd 04/30/18 04/30/18 04/30/18 15:29 15:29 15:29 WBC RBC Hgb Hct MCV MCH MCHC RDW Plt Count MPV Neut % (Auto) Lymph % (Auto) [place] % (Auto) Eos % (Auto) Baso % (Auto) Neut # (Auto) Lymph # (Auto) [place] # (Auto) Eos # (Auto) Baso # (Auto) WBC Differential Differential Comment Sodium 138 Potassium 3.5 D Chloride 100 Carbon Dioxide 29.2 Anion Gap 9 BUN 17 Creatinine 2.91 H Estimated GFR 22 L POC Glucose Random Glucose 177 H Hemoglobin A1c Insulin Level Proinsulin C-Peptide Calcium 8.1 L D Total Bilirubin 0.7 AST 12 L ALT 14 Alkaline Phosphatase 91 Troponin I Less than 0.02 L Total Protein 6.5 D Albumin 3.1 L Beta-Hydroxybutyric Acd Cancelled 0.12 04/30/18 04/30/18 04/30/18 14:48 13:37 13:31 WBC RBC Hgb Hct MCV MCH MCHC RDW Plt Count MPV Neut % (Auto) Lymph % (Auto) [place] % (Auto) Eos % (Auto) Baso % (Auto) Neut # (Auto) Lymph # (Auto) [place] # (Auto) Eos # (Auto) Baso # (Auto) WBC Differential Differential Comment Sodium Potassium Chloride Carbon Dioxide Anion Gap BUN Creatinine Estimated GFR POC Glucose 141 H 87 77 Random Glucose Hemoglobin A1c Insulin Level Proinsulin C-Peptide Calcium Total Bilirubin AST ALT Alkaline Phosphatase Troponin I Total Protein Albumin Beta-Hydroxybutyric Acd 04/30/18 04/30/18 04/30/18 13:22 13:00 12:54 WBC RBC Hgb Hct MCV MCH MCHC RDW Plt Count MPV Neut % (Auto) Lymph % (Auto) [place] % (Auto) Eos % (Auto) Baso % (Auto) Neut # (Auto) Lymph # (Auto) [place] # (Auto) Eos # (Auto) Baso # (Auto) WBC Differential Differential Comment Sodium Potassium Chloride Carbon Dioxide Anion Gap BUN Creatinine Estimated GFR POC Glucose 67 L 109 30 L* Random Glucose Hemoglobin A1c Insulin Level Proinsulin C-Peptide Calcium Total Bilirubin AST ALT Alkaline Phosphatase Troponin I Total Protein Albumin Beta-Hydroxybutyric Acd 04/30/18 04/30/18 04/30/18 12:52 12:43 11:50 WBC RBC Hgb Hct MCV MCH MCHC RDW Plt Count MPV Neut % (Auto) Lymph % (Auto) [place] % (Auto) Eos % (Auto) Baso % (Auto) Neut # (Auto) Lymph # (Auto) [place] # (Auto) Eos # (Auto) Baso # (Auto) WBC Differential Differential Comment Sodium Potassium Chloride Carbon Dioxide Anion Gap BUN Creatinine Estimated GFR POC Glucose 43 L* 43 L* Random Glucose Hemoglobin A1c 6.0 Insulin Level Proinsulin C-Peptide Calcium Total Bilirubin AST ALT Alkaline Phosphatase Troponin I Total Protein Albumin Beta-Hydroxybutyric Acd 04/30/18 11:50 WBC 9.8 RBC 4.81 Hgb 12.9 L Hct 39.5 MCV 82.2 MCH 26.9 L MCHC 32.7 RDW 16.7 Plt Count 300 MPV 8.7 Neut % (Auto) 85.0 H Lymph % (Auto) 8.7 L [place] % (Auto) 5.0 Eos % (Auto) 0.7 Baso % (Auto) 0.6 Neut # (Auto) 8.4 H Lymph # (Auto) 0.9 L [place] # (Auto) 0.5 Eos # (Auto) 0.1 Baso # (Auto) 0.1 WBC Differential . Differential Comment Auto diff final Sodium Potassium Chloride Carbon Dioxide Anion Gap BUN Creatinine Estimated GFR POC Glucose Random Glucose Hemoglobin A1c Insulin Level Proinsulin C-Peptide Calcium Total Bilirubin AST ALT Alkaline Phosphatase Troponin I Total Protein Albumin Beta-Hydroxybutyric Acd Impressions ITS Impressions Cervical Spine CT 04/29/18 13:02 CONCLUSION: 1. Stable moderate diffuse primary degenerative changes, disc degeneration and disc space narrowing involving the mid to lower cervical spine. 2. No significant change compared to the prior exam. Head CT 04/29/18 13:02 CONCLUSION: 1. Stable noncontrast axial head CT . . Chest X-Ray 04/29/18 14:47 CONCLUSION: No acute intrathoracic disease. Stable examination. Carotid Doppler Study 04/30/18 00:00 CONCLUSION: 1. Right Internal Carotid Artery: Findings indicate <50% stenosis. 2. Left Internal Carotid Artery: No significant stenosis or atherosclerotic plaque is visualized. Head MRI 04/30/18 00:00 CONCLUSION: 1. Previous right-sided stroke with some surrounding gliosis. No evidence of an acute stroke, acute mass or mass effect. Head MRA 04/30/18 00:00 CONCLUSION: 1. No focal stenosis or aneurysm is identified. 2. Patent right posterior communicating artery is the majority of flow to the right posterior cerebral circulation 3. Mild luminal asymmetry in the distal middle cerebral branches left greater than right. Discharge Plan Discharge Disposition Patient Disposition: 01 Discharge Home Discharge Condition Condition: Stable Discharge Order Discharge Orders: Discharge Order (Routine); Ordered 05/01/18 Ordered By: Santiago Fernandez Discharge Details Anticipated Discharge Date: 05/01/18 Physicians Team ED Provider: Chavez Guevara ED Midlevel Provider: Jose Cleveland Primary Care Provider: Primary Care Andrea,Arielle Attending Provider: Floresita Kauffman Other Providers: Kar Zazueta Rxs /Orders / Referrals /Forms Prescriptions: Continue atorvastatin 20 mg tablet 20 mg PO QPM RF: 0 quetiapine 25 mg Tablet 100 mg PO HS Qty: 30 RF: 11 carvedilol [Coreg] 6.25 mg Tablet 6.25 mg PO BID Qty: 60 RF: 11 levetiracetam [Keppra] 500 mg Tablet 500 mg PO BID Qty: 60 RF: 11 amlodipine [Norvasc] 10 mg Tablet 10 mg PO DAILY Qty: 30 RF: 11 aspirin 81 mg Tablet,Chewable 81 mg PO DAILY Qty: 90 RF: 0 levothyroxine 88 mcg Tablet 88 mcg PO DAILY Qty: 30 RF: 11 pantoprazole [Protonix] 40 mg Tablet,Delayed Release (Dr/Ec) 40 mg PO DAILY Qty: 30 RF: 11 isosorbide mononitrate 30 mg tablet extended release 24 hr 30 mg PO DAILY Qty: 30 RF: 11 Referrals: Kar Zazueta MD [Physician] - See Instructions (Follow up in 3-5 Days. Schedule an appointment. HD.) Primary Care Arielle Mendez [Primary Care Provider] - See Instructions (Follow up in 7 Days. Schedule an appointment. If you have no primary care provider/Doctor, referral to [facility] [phone] ([facility]) [phone] ([place]) Please call and schedule an appointment here to establish primary care if unable to find an in-network physician in the area - they may be able to utilize Medicaid benefit or will bill you at sliding scale based on income as self-pay. ) Post Discharge Care Plan Care Plan Goals: Your Health Problems: Goals to Promote Your Health: * To prevent worsening of your condition * To maintain your health at the optimal level Directions to Meet Your Goals: * Take your medications as prescribed * Follow your dietary instruction * Follow activity as directed * Keep your appointments as scheduled * Take your immunizations and boosters as scheduled * If your symptoms worsen call your PCP * If no PCP go to Urgent Care or Emergency Room Smoking is dangerous to your health. Avoid second hand smoke. You may reach the 24-hour crisis hotline for domestic abuse at . Status ED Status: Left Department Discharge Information Discharge Date/Time: 05/01/18 14:58
[2018-05-01 12:29] VITALS: BP 116/70; PULSE 71; TEMP 99.3
--- NOTE | 2018-05-01 17:27 | P.PNNP ---
Subjective Interval history: Seen in AM. Hemodialysis yesterday tolerated well. No SOB, nausea, or vomiting. <Smiley Barth - Last Filed: 05/01/18 17:24> Physical Exam Vital signs: Vital Signs 04/30/18 20:00 04/30/18 20:05 04/30/18 23:32 Temperature 98.3 F Pulse Rate 78 80 81 Respiratory Rate 16 16 Blood Pressure 117/76 87/52 L Pulse Oximetry 97 95 05/01/18 01:10 05/01/18 04:00 05/01/18 07:37 Temperature 98.6 F Pulse Rate 66 75 Respiratory Rate 16 16 Blood Pressure 102/65 116/66 135/81 Pulse Oximetry 96 95 05/01/18 12:00 Temperature 99.3 F Pulse Rate 71 Respiratory Rate 16 Blood Pressure 116/70 Pulse Oximetry 95 Intake & Output 04/30/18 05/01/18 05/01/18 18:59 06:59 18:59 Intake Total 1350 / 1350 1120 / 1120 210 / 210 Output Total 2200 / 2200 Balance -850 / -850 1120 / 1120 210 / 210 Intake: IV 600 / 600 400 / 400 210 / 210 D5W/1/2 NS Inj 1,000 ML @ 42 600 / 600 400 / 400 210 / 210 mls/hr IV.CONT .[id number] [facility] Rx# :[id number] Oral 750 / 750 720 / 720 Output: Urine 200 / 200 Hemodialysis Amount 1999 Other: # Voids 7 4 Date of Last Bowel Movement 04/30/18 04/30/18 # Bowel Movements 1 Narrative: GENERAL: alert and oriented. SKIN: Warm and dry. NECK: Supple, trachea midline. No JVD CARDIOVASCULAR: Regular rate and rhythm without murmurs, gallops, or rubs. Right chest wall perma cath. RESPIRATORY: Breath sounds equal bilaterally. No accessory muscle use. GASTROINTESTINAL: Abdomen soft, non-tender, nondistended. +BS MUSCULOSKELETAL: No cyanosis, or edema. BACK: Nontender without obvious deformity. No CVA tenderness. <Smiley Barth - Last Filed: 05/01/18 17:24> Vital signs: Vital Signs 04/30/18 23:32 05/01/18 01:10 05/01/18 04:00 Temperature Pulse Rate 81 66 Respiratory Rate 16 16 Blood Pressure 87/52 L 102/65 116/66 Pulse Oximetry 95 96 05/01/18 07:37 05/01/18 12:00 Temperature 98.6 F 99.3 F Pulse Rate 75 71 Respiratory Rate 16 16 Blood Pressure 135/81 116/70 Pulse Oximetry 95 95 Intake & Output 05/01/18 05/01/18 05/02/18 06:59 18:59 06:59 Intake Total 1120 / 1120 210 / 210 Balance 1120 / 1120 210 / 210 Intake: IV 400 / 400 210 / 210 D5W/1/2 NS Inj 1,000 ML @ 42 400 / 400 210 / 210 mls/hr IV.CONT .[id number] [facility] Rx# :[id number] Oral 720 / 720 Other: # Voids 4 Date of Last Bowel Movement 04/30/18 <Brianna Blevins - Last Filed: 05/01/18 22:25> Assessment and Plan - Assessment (1) End stage renal disease on dialysis Code(s): N18.6 - End stage renal disease; Z99.2 - Dependence on renal dialysis Status: Acute (2) Hypertension Code(s): I10 - Essential (primary) hypertension Status: Acute Plan: (3) Hypoglycemia Code(s): E16.2 - Hypoglycemia, unspecified Status: Acute - Plan ESRD on hemodialysis Right chest wall permacath Continue HD on Transitional HD set up outpatient Hypertension Well controlled. On amlodipine and coreg. Hypoglycemia BS at 30 per EVAC. Blood sugars remain labile. On D5 1/2 NS. Has had falls at home. Abnormal UA Culture negative <Smiley Barth - Last Filed: 05/01/18 17:24> - Assessment (1) End stage renal disease on dialysis Code(s): N18.6 - End stage renal disease; Z99.2 - Dependence on renal dialysis Status: Acute (2) Hypertension Code(s): I10 - Essential (primary) hypertension Status: Acute (3) Hypoglycemia Code(s): E16.2 - Hypoglycemia, unspecified Status: Acute - Plan Patient with End stage renal disease, Has Hypoglycemia. To stop Metformin, HD continue TTS. <Brianna Blevins - Last Filed: 05/01/18 22:25>
[2018-05-03 18:28] LABS: C-Peptide 7.99 ng/mL (0.80-3.85)
[2018-05-04 03:50] LABS: Insulin Blood 18.4 uIU/mL (2.0-19.6)
== END 2018-05-01 14:58 | disposition home or self-care (01) ==
LOC: NEPD 12:30 → NEDA 12:30 → NEPFCDU 17:51
PROVIDERS: ADMIT Hospitalist; ATTEND Hospitalist
DX: G47.30 Sleep apnea, unspecified; F41.9 Anxiety disorder, unspecified; Z86.73 Personal history of transient ischemic attack (TIA), and cerebral infarction without residual deficits; W22.01XA Walked into wall, initial encounter; E05.90 Thyrotoxicosis, unspecified without thyrotoxic crisis or storm; E11.649 Type 2 diabetes mellitus with hypoglycemia without coma; Z80.51 Family history of malignant neoplasm of kidney; Z79.82 Long term (current) use of aspirin; Z88.0 Allergy status to penicillin; Z79.890 Hormone replacement therapy; N17.9 Acute kidney failure, unspecified; Z88.1 Allergy status to other antibiotic agents; G93.40 Encephalopathy, unspecified; E78.5 Hyperlipidemia, unspecified; Z82.49 Family history of ischemic heart disease and other diseases of the circulatory system; N39.0 Urinary tract infection, site not specified; I95.1 Orthostatic hypotension; F17.210 Nicotine dependence, cigarettes, uncomplicated; F10.10 Alcohol abuse, uncomplicated; Z99.2 Dependence on renal dialysis; G40.909 Epilepsy, unspecified, not intractable, without status epilepticus; I12.0 Hypertensive chronic kidney disease with stage 5 chronic kidney disease or end stage renal disease; E11.22 Type 2 diabetes mellitus with diabetic chronic kidney disease; N18.6 End stage renal disease; E03.9 Hypothyroidism, unspecified
CPT/HCPCS: 70450; 70544; 70551; 71010; 71045; 72125; 80053; 80307; 81001; 82010; 82435; 82550; 82565; 82947; 82948; 82962; 83036; 83525; 83735; 84132; 84206; 84295; 84484; 84520; 84681; 85025; 85610; 85730; 87086; 93005; 93306; 93880; 96360; 96361; 97162; 99285; G0378; G8987; G8988; J1580; J1644